=== PATIENT | male | born 1955 | race Caucasian/White ===

== ENCOUNTER 2018-11-12 23:53 | Inpatient (IN) ==
[2018-11-13 00:22] LABS: Microscopic, Urine URINE MICROSCOPIC (MICROSCOPIC)
[2018-11-13 00:24] LABS: Appearance,Urine CLEAR (Clear); Blood, Urine 3+ (Negative); Color,Urine YELLOW (Yellow); Glucose,Urine (UA) Negative (Negative); Ketones,Urine Negative (Negative); Leukocyte Esterase,Urine Negative (Negative); PH,Urine 5.5 (5.0-8.5); Protein,Urine 1+ (Negative); Specific Gravity, Urine 1.025 (1.005-1.030); Urobilinogen,Urine 0.2 EU/dl (0.2)
[2018-11-13 00:28] LABS: ABG Base Excess 7.5 mmol/L (-2.4-2.3); ABG HCO3 35.8 mmhg (22.0-26.0); ABG Oxygen Saturation 83 % (90-100); ABG PO2 56.9 mmhg (80-100); ABG TCO2 38.7 mmhg (23-27)
[2018-11-13 00:29] LABS: Allen's Test Y; Oxygen 4 %
[2018-11-13 00:30] LABS: ABG PCO2 97.1 mmhg (35.0-45.0); ABG PH 7.18 mmol/L (7.35-7.45)
--- NOTE | 2018-11-13 00:37 | Emergency Department Note ---
ED Disposition Clinical Impression: COPD with acute exacerbation, Diabetes mellitus, insulin dependent (IDDM), controlled, Renal insufficiency Altered mental status Qualifiers: Altered mental status type: delirium Qualified Code(s): R41.0 - Disorientation, unspecified Respiratory failure Qualifiers: Chronicity: acute on chronic Respiratory failure complication: hypoxia and hypercapnia Qualified Code(s): J96.21 - Acute and chronic respiratory failure with hypoxia; J96.22 - Acute and chronic respiratory failure with hypercapnia Obesity Qualifiers: Obesity type: due to excess calories Obesity classification: adult class 3 (BMI >= 40) Serious obesity comorbidity presence: with serious comorbidity Body mass index: BMI 45.0-49.9 Qualified Code(s): E66.01 - Morbid (severe) obesity due to excess calories; Z68.42 - Body mass index (BMI) 45.0-49.9, adult Cellulitis Qualifiers: Site of cellulitis: extremity Site of cellulitis of extremity: lower extremity Laterality: unspecified laterality Qualified Code(s): L03.119 - Cellulitis of unspecified part of limb Disposition: Admitted as Observation Condition on Discharge: Fair Instructions: DI for Altered Mental Status Referrals: Bruce August [Primary Care Provider] - - Critical Care Critical Care Time: No Attestation: On 11/12/18, the high probability of a clinically significant, sudden or life threatening deterioration of the following system(s) required my full and direct attention, intervention and personal management. The time I documented below is in addition to time spent performing reported procedures but includes the following listed in this critical care notation. Medical Decision Making - Medical Records Medical records reviewed: Yes: I reviewed the patient's medical records. - Valentin Inquiry Pt receiving controlled substance: No Vital Signs: 11/12/18 23:54 11/13/18 00:48 11/13/18 01:29 Temperature 98.6 F Temperature Source Oral Pulse Rate [Right Brachial] 90 88 91 H Respiratory Rate 18 18 20 Blood Pressure [Right Arm] 149/59 H 141/72 H 144/66 H Blood Pressure Mean [Right Arm] 89 95 92 Blood Pressure Source [Right Arm] Automatic Cuff Automatic Cuff Blood Pressure Position [Right Arm] Sitting Sitting 02 Sat by Pulse Oximetry 90 L 91 L 93 L Oxygen Delivery Method Nasal Cannula BiPAP BiPAP Oxygen Flow Rate (LPM) 11/13/18 02:50 11/13/18 04:56 Temperature Temperature Source Pulse Rate [Right Brachial] 78 93 H Respiratory Rate 25 H 22 Blood Pressure [Right Arm] 141/68 H 163/89 H Blood Pressure Mean [Right Arm] 92 113 Blood Pressure Source [Right Arm] Automatic Cuff Automatic Cuff Blood Pressure Position [Right Arm] Supine Supine 02 Sat by Pulse Oximetry 95 94 L Oxygen Delivery Method BiPAP BiPAP Oxygen Flow Rate (LPM) 2 - Lab Data Lab results reviewed: Yes: I reviewed the patient's lab results. Lab Results 11/13/18 00:01: POC Glucose 110 11/13/18 00:10: WBC 10.8, RBC 4.38 L, Hgb 12.7 L, Hct 40.1 L, MCV 91.6, MCH 28.9, MCHC 31.5 L, RDW 13.9, Plt Count 236, MPV 7.1 L, Neut % (Auto) 79.5, Lymph % (Auto) 11.0, [place] % (Auto) 8.5, Eos % (Auto) 0.9, Baso % (Auto) 0.2, Neut # (Auto) 8.5 H, Lymph # (Auto) 1.2, [place] # (Auto) 0.9, Eos # (Auto) 0.1, Baso # (Auto) 0.0 11/13/18 00:10: Sodium 137, Potassium 4.4, Chloride 97 L, Carbon Dioxide 37 H, Anion Gap 7.4, BUN 53 H, Creatinine 1.62 H, Estimated Creat Clear 49, Estimated GFR 43 L, Est GFR ( Amer) 52 L, Glucose 59 L, Calcium 8.9, Total Bilirubin 0.4, AST 26, ALT 26, Alkaline Phosphatase 159 H, Total Protein 8.0, Albumin 2.9 L, Globulin 5.1 H, Albumin/Globulin Ratio 0.6 L 11/13/18 00:10: Lactate 1.7 11/13/18 00:12: Urine Color Yellow, Urine Appearance Clear, Urine pH 5.5, Ur Specific [place] 1.025, Urine Protein 1+, Urine Glucose (UA) Negative, Urine Ketones Negative, Urine Blood 3+, Urine Nitrate Negative, Urine Bilirubin Negative, Urine Urobilinogen 0.2, Ur Leukocyte Esterase Negative, Urine RBC Occasional, Urine WBC 3-5, Ur Squamous Epith Cells Occasional, Urine Bacteria Trace 11/13/18 00:12: Urine Opiates Screen Positive H, Urine Methadone Screen Negative, Ur Barbituates Screen Negative, Ur Phencyclidine Scrn Negative, Ur Amphetamines Screen Negative, U Benzodiazepines Scrn Positive H, Urine Cocaine Screen Negative, U Marijuana (THC) Screen Negative 11/13/18 00:12: Troponin I < 0.02 11/13/18 00:27: Specimen Source R/r, O2 % 4, ABG pH 7.18 L*, ABG pCO2 97.1 H, ABG pO2 56.9 L, ABG HCO3 35.8 H, ABG Total CO2 38.7 H, ABG O2 Saturation 83 L*, ABG Base Excess 7.5 H, Jack Test Y 11/13/18 02:40: Specimen Source R/r, O2 % 30, ABG pH 7.25 L, ABG pCO2 87.2 H, ABG pO2 67.1 L, ABG HCO3 37.0 H, ABG Total CO2 39.7 H, ABG O2 Saturation 91, ABG Base Excess 9.7 H, Jack Test Y, Vent Rate 25 Result diagrams: 11/13/18 00:10 11/13/18 00:10 Orders (Tests/Meds): ED MEDICATIONS Generic Name Dose Route Start Last Admin Trade Name Freq PRN Reason Stop Dose Admin Sodium Chloride 1,000 mls @ 999 mls/hr 11/13/18 02:30 11/13/18 02:45 Sod Chlor 0.9% 1000ml Bag IV 11/13/18 03:30 999 mls/hr .Q1H1M DEANA Administration Ceftriaxone Sodium 1 gm/ 50 mls @ 100 mls/hr 11/13/18 04:45 11/13/18 04:58 Sodium Chloride IV 11/27/18 04:44 100 mls/hr Q24H DEANA Administration Protocol Sodium Chloride 10 ml 11/13/18 00:08 Saline Flush 10ml Syringe IV 12/13/18 00:07 NEEDED PRN Maintain IV Site ORDERS Category Date Time Status Blood Culture Stat Micro 11/13/18 00:10 Received ABG [Arterial Blood Gas] Stat RT 11/13/18 01:53 Ordered ABG [Arterial Blood Gas] Stat RT 11/13/18 04:57 Ordered ECG Request by /Prashanth Stat Y 11/13/18 00:07 Ordered - Radiology Data #1 Image(s): Chest Image Reviewed: Yes I reviewed the patient's radiology image Preliminary Findings: Abnormal (cm) - ECG Data Tracing #1 Normal Sinus Rhythm: Yes Ischemic changes: non-specific ST-T wave changes Conduction abnormalities present: RBBB - Physician Consults Physician Consulted: peace Reason -: Admission Comment/Response: family reports and pt prefer to remain at [facility] and have seen dr august about 2 months ago Altered Mental Status HPI - General Chief Complaint: Altered Mental Status Stated Complaint: AMS Time Seen by Provider: 11/13/18 00:00 Mode of Arrival: EMS Source of Information: Patient, Relative, EMS, Medical Record Limitations: Altered Mental Status Description of Symptoms (Recalled from ER Triage Doc. by RN): Pt presents to the ED with AMS, hypoglycemic, and weakness. O2 @3.5 L NC. No IV access. Was give oral glucose per EMS after getting a FSBS of 67. FSBS came up to 90 after that. - History of Present Illness HPI narrative: pt with over the last few days has change in mental status with glu of about 70 at home and he uses 3l and has hx of copd - pt [facility] admit [facility] ago with back pain and found to have aaa - has op appt for eval- he has changes to lower ext which are worse - no fever and no tob use - no fall - no chest or abd pain MD complaint: altered mental status Onset (ago): day(s) Timing confirmed by: family member Associated symptoms: shortness of breath - Related Data Home Medications Medication Instructions Recorded Confirmed Baclofen [Lioresal 10mg tablet] 10 mg PO DAILY 11/13/18 11/13/18 Bictegrav/Emtricit/Tenofov Ala 1 each PO DAILY 11/13/18 11/13/18 [Biktarvy 50-200-25 mg Tablet] Duloxetine HCl 60 mg PO DAILY 11/13/18 11/13/18 Ergocalciferol (Vitamin D2) 400 unit PO DAILY 11/13/18 11/13/18 [Vitamin D] Finasteride [Proscar 5mg Tablet] 5 mg PO DAILY 11/13/18 11/13/18 Furosemide [Furosemide 40MG tAB] 40 mg PO DAILY 11/13/18 11/13/18 Insulin Lispro [Humalog] 100 unit SQ DAILY 11/13/18 11/13/18 Lidocaine 1 each TP NEEDED PRN 11/13/18 11/13/18 Losartan Potassium 100 mg PO DAILY 11/13/18 11/13/18 Metformin HCl [Metformin HCl ER] 500 mg PO DAILY 11/13/18 11/13/18 Metoprolol Tartrate 100 mg PO DAILY 11/13/18 11/13/18 Naloxone HCl [Narcan] 4 mg NS NEEDED PRN 11/13/18 11/13/18 Tamsulosin HCl [Flomax 0.4mg 0.4 mg PO HS 11/13/18 11/13/18 capsule] Allergies Allergy/AdvReac Type Severity Reaction Status Date / Time SANDRA Inhibitor Allergy Unknown Uncoded 08/21/17 14:32 CLASS: 24:06 - ANTILIPEMIC Allergy Unknown Uncoded 08/21/17 14:32 AGENTS Clofibrate Allergy Unknown Uncoded 08/21/17 14:32 Enalapril Allergy Unknown Uncoded 08/21/17 14:32 Erythromycin Allergy Unknown Uncoded 08/21/17 14:32 From Pravastatin Sodium Allergy Unknown Uncoded 08/21/17 14:32 Gemfibrozil Allergy Unknown Uncoded 08/21/17 14:32 Hepatitis A Vaccine, Allergy Unknown Uncoded 08/21/17 14:32 Inactivated Hmg-Coa Reductase Inhibitor Allergy Unknown Uncoded 08/21/17 14:32 Hydralazine Allergy Unknown Uncoded 08/21/17 14:32 Macrolide/Antibacterial Allergy Unknown Uncoded 08/21/17 14:32 [facility] History - Hepatitis A Screen Drug use history?: No High risk sexual behaviors?: No History of sexually transmitted infection?: No Currently employed?: No Childcare worker?: No Do you have indoor plumbing?: Yes Do you have electricity?: Yes Attestation statement:: This patient has been screened for Hepatitis A risk factors. I have reviewed the patient's past medical history: Yes - Social History Alcohol Intake: never Occupational Status: disabled Housing: house - Psychiatric History Expresses thoughts of harming self/others: None Suicide Plan Description: No Plan ROS Obtained: Yes All systems reviewed & no additional complaints - Constitutional Constitutional: Denies fever(s), Reports weakness - Eyes Eyes: Denies change in vision - ENT Ears, Nose, Mouth, and Throat: Denies sore throat - Cardiovascular Cardiovascular: Denies chest pain, Reports leg edema - Respiratory Respiratory: No cough, Yes dyspnea - Gastrointestinal Gastrointestingal: Denies: abdominal pain, vomiting - Genitourinary Male Genitourinary: Denies hematuria - Musculoskeletal Musculoskeletal: Denies joint pain - Integumentary/Breasts Skin/Breast: Reports other (acute on chronic lower ext changes ) - Neurologic Neurologic: Reports confusion, Denies seizure-like activity Physical Exam - General General appearance: obese, other (confused) - Head Head exam: normocephalic - Eye Eye exam: Present: PERRL, EOMI. Absent: scleral icterus - ENT ENT exam: Present: mucous membranes dry - Neck Neck exam: Present: trachea midline - Respiratory Respiratory exam: Present: prolonged expiratory phase, other (dec bs bilat ). Absent: respiratory distress - Cardiovascular Cardiovascular exam: Present: regular rate, systolic murmur, +S4, other (distant ht sds ) - Abdominal Exam Abdominal exam: Present: soft. Absent: pulsatile mass - Extremities Exam Extremities exam: Present: other (swelling with acute and chronic chhanges with cellulitis ) - Neurological Exam Neurological exam: Present: CN II-XII intact, other (confused at times but aware of being at hospital ). Absent: motor sensory deficit - Psychiatric Psychiatric exam: Present: agitated - Skin Skin exam: Present: rash (changes lower ext )
[2018-11-13 00:38] LABS: Bilirubin,Urine Negative (Negative)
[2018-11-13 00:41] LABS: Basophils % 0.2 % (0.1-2.0); Eosinophils # 0.1 K/mm3 (0.0-0.4); Eosinophils % 0.9 % (0.1-12.0); Hematocrit 40.1 % (42.0-52.0); Hemoglobin 12.7 g/dL (14.1-18.0); Lymphocytes # 1.2 K/mm3 (0.7-4.5); Mean Corpuscular HGB Conc 31.5 g/dL (31.8-35.4); Mean Corpuscular Hemoglobin 28.9 pg (27.0-31.2); Mean Corpuscular Volume 91.6 fl (80-94); Mean Platelet Volume 7.1 fl (7.4-10.4); Monocytes # 0.9 K/mm3 (0.1-1.0); Monocytes % 8.5 % (1.7-9.3); Neutrophils # 8.5 K/mm3 (1.8-7.8); Neutrophils % 79.5 % (37.0-80.0); Platelet Count 236 K/mm3 (142-424); Red Blood Count 4.38 M/mm3 (4.60-6.20); Red Cell Distribution Width 13.9 % (11.5-17.5); White Blood Count 10.8 K/mm3 (4.8-10.8)
[2018-11-13 00:42] LABS: Amphetamine/Metha Screen,Urine Negative ng/mL (<1000); Barbiturates Screen,Urine Negative ng/mL (<200); Benzodiazepines Screen,Urine Positive ng/mL (<200); Cannabinoid Screen,Urine Negative ng/mL (<50); Cocaine Screen,Urine Negative ng/mL (<300); Methadone Screen,Urine Negative ng/mL (<300); Opiate Screen,Urine Positive ng/mL (<300); Phencyclidine Screen,Urine Negative ng/mL (<25)
[2018-11-13 00:44] LABS: Albumin Level 2.9 gm/dL (3.4-5.0); Albumin/Globulin Ratio 0.6 (1.1-1.8); Anion Gap 7.4 mEq/L (5-15); Bilirubin,Total 0.4 mg/dL (0.2-1.0); Calcium 8.9 mg/dL (8.5-10.1); Globulin 5.1 gm/dl (1.3-3.2); Potassium 4.4 mmoL/L (3.5-5.1)
[2018-11-13 00:49] LABS: Bacteria,Urine Trace /lpf; RBC,Urine Occasional #/hpf (0-3); Squamous Epithelial Cell,Urine Occasional #/hpf (0-5)
[2018-11-13 02:41] LABS: ABG Base Excess 9.7 mmol/L (-2.4-2.3); ABG Oxygen Saturation 91 % (90-100); ABG PH 7.25 mmol/L (7.35-7.45); ABG PO2 67.1 mmhg (80-100); ABG TCO2 39.7 mmhg (23-27)
[2018-11-13 02:42] LABS: Allen's Test Y; Oxygen 30 %
[2018-11-13 02:43] LABS: ABG PCO2 87.2 mmhg (35.0-45.0)
--- NOTE | 2018-11-13 07:25 | Pharmacy Consult Notes ---
[facility] Pharmacy VTE Monitoring - Patient Demographics Admission date: 11/12/18 Report Date: 11/13/18 Time: 07:24 Allergies/Adverse Reactions: Patient Allergies SANDRA Inhibitor Allergy (Unknown, Uncoded 08/21/17 14:32) CLASS: 24:06 - ANTILIPEMIC AGENTS Allergy (Unknown, Uncoded 08/21/17 14:32) Clofibrate Allergy (Unknown, Uncoded 08/21/17 14:32) Enalapril Allergy (Unknown, Uncoded 08/21/17 14:32) Erythromycin Allergy (Unknown, Uncoded 08/21/17 14:32) From Pravastatin Sodium Allergy (Unknown, Uncoded 08/21/17 14:32) Gemfibrozil Allergy (Unknown, Uncoded 08/21/17 14:32) Hepatitis A Vaccine, Inactivated Allergy (Unknown, Uncoded 08/21/17 14:32) Hmg-Coa Reductase Inhibitor Allergy (Unknown, Uncoded 08/21/17 14:32) Hydralazine Allergy (Unknown, Uncoded 08/21/17 14:32) Macrolide/Antibacterial Allergy (Unknown, Uncoded 08/21/17 14:32) Height: 1.8 m Weight: 154.675 kg Patient Problems: Current Active Problems Altered mental status (Acute) COPD with acute exacerbation (Acute) Respiratory failure (Acute) Obesity (Acute) Cellulitis (Acute) Diabetes mellitus, insulin dependent (IDDM), controlled (Acute) Renal insufficiency (Acute) - VTE Risk Labs: VTE Related Lab Results Hgb 12.7 g/dL (14.1-18.0) L 11/13/18 00:10 Hct 40.1 % (42.0-52.0) L 11/13/18 00:10 Plt Count 236 K/mm3 (142-424) 11/13/18 00:10 BUN 53 mg/dL (7-18) H 11/13/18 00:10 Creatinine 1.62 mg/dL (0.70-1.30) H 11/13/18 00:10 Estimated Creat Clear 49 mL/min (50-200) 11/13/18 00:10 Was VTE Risk Assessment Performed: Yes VTE Score: 8 VTE Risk Level: Moderate Risk Clinical Trial Participant: No - Prophylaxis VTE Prophylaxis Ordered?: Yes Types of VTE Prophylaxis: TEDS Knee High
--- NOTE | 2018-11-13 08:28 | History & Physical Report ---
*Admission Date: 11/12/18 *Chief complaint: Mental status changes/dyspnea. 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 Faith here in town, who suffers from multiple medical problems, including morbid obesity, uncontrolled diabetes and chronic respiratory insufficiency with pickwickian syndrome, who is on chronic antiviral medicines ostensibly as a consequence of a Hodgkin's lymphoma many years ago, who presented to the emergency department yesterday evening with a 3-day history of increasing mental status changes, confusion, nausea with vomiting and increasing leg swelling. Apparently has had some falls at home. His and daughter had tried to convince him to go to the [facility] emergency department but he declined until later in the evening yesterday when he requested an ambulance to bring him to the [facility]. In the ER here he was found to be acidotic, required BiPAP for respiratory stabilization, had significant cellulitis of both lower extremities and was found to have mild acute kidney injury superimposed on chronic kidney disease. There is also a history from the family of "new fluid around his heart and an aortic abdominal aneurysm" recently diagnosed at the [facility] with upcoming appointments. Significant record deficit given his recent care at the [facility]. Family members deny fevers at home, and do report hypoglycemia the afternoon of admission. [facility] History I have reviewed the patient's past medical history: Yes Medical History: Reports:: Cancer (Melanoma), Diabetes Mellitus Type 2, Hyperlipidemia, Hypertension, MRSA, Myocardial Infarction *Have you ever received a pneumonia vaccine?: Yes *Have you received a flu vaccine this season?: Yes Other Surgeries: Yes: Colonoscopy, Hernia Repair, Sinus Surgery, Other (Left Arm) Amputation: No - *Social History Educational Level: Completed College Alcohol Intake: never *Occupational Status:: disabled Housing: house Household Members: spouse *Travel in the last 8 weeks: None - Psychiatric History Expresses thoughts of harming self/others: None Suicide Plan Description: No Plan Family Hx:: Cancer, Hyperlipidemia, Hypertension Review of Systems - Review of Systems Review of systems:: unable to obtain Patient obtunded on CPAP. Does respond minimally to tactile stimulation but cannot give a coherent review of systems. - *Neurologic Reports confusion, Reports weakness, Denies seizure-like activity Meds Home Medications Medication Instructions Recorded Confirmed Type Baclofen [Lioresal 10mg tablet] 10 mg PO DAILY 11/13/18 11/13/18 History Bictegrav/Emtricit/Tenofov Ala 1 each PO DAILY 11/13/18 11/13/18 History [Biktarvy 50-200-25 mg Tablet] Duloxetine HCl 60 mg PO DAILY 11/13/18 11/13/18 History Ergocalciferol (Vitamin D2) 400 unit PO DAILY 11/13/18 11/13/18 History [Vitamin D] Finasteride [Proscar 5mg Tablet] 5 mg PO DAILY 11/13/18 11/13/18 History Furosemide [Furosemide 40MG tAB] 40 mg PO DAILY 11/13/18 11/13/18 History Insulin Lispro [Humalog] 100 unit SQ DAILY 11/13/18 11/13/18 History Lidocaine 1 each TP NEEDED PRN 11/13/18 11/13/18 History Losartan Potassium 100 mg PO DAILY 11/13/18 11/13/18 History Metformin HCl [Metformin HCl ER] 500 mg PO DAILY 11/13/18 11/13/18 History Metoprolol Tartrate 100 mg PO DAILY 11/13/18 11/13/18 History Naloxone HCl [Narcan] 4 mg NS NEEDED PRN 11/13/18 11/13/18 History Tamsulosin HCl [Flomax 0.4mg 0.4 mg PO HS 11/13/18 11/13/18 History capsule] Allergies Allergy/AdvReac Type Severity Reaction Status Date / Time SANDRA Inhibitors Allergy Unknown Unknown Verified 11/13/18 07:47 allergy reaction clofibrate Allergy Unknown Unknown Verified 11/13/18 07:47 allergy reaction enalapril Allergy Unknown Unknown Verified 11/13/18 07:47 allergy reaction erythromycin base Allergy Unknown Unknown Verified 11/13/18 07:47 allergy reaction gemfibrozil Allergy Unknown Unknown Verified 11/13/18 07:47 allergy reaction hepatitis A virus vaccine Allergy Unknown Unknown Verified 11/13/18 07:47 allergy reaction hydralazine Allergy Unknown Unknown Verified 11/13/18 07:47 allergy reaction Macrolide Antibiotics Allergy Unknown Unknown Verified 11/13/18 07:47 allergy reaction pravastatin [From Pravachol] Allergy Unknown Unknown Verified 11/13/18 07:47 allergy reaction [id number]-[id number]-[id number] Reductase Allergy Unknown Unknown Verified 11/13/18 07:47 Inhibitor allergy reaction Exam Vital signs and Labs for Last 24 Hours: Temp Pulse Resp BP Pulse Ox 98.8 F 84 22 137/62 91 L 11/13/18 08:00 11/13/18 08:00 11/13/18 08:00 11/13/18 08:00 11/13/18 08:00 Laboratory Results - last 24 hr 11/13/18 00:01: POC Glucose 110 11/13/18 00:10: WBC 10.8, RBC 4.38 L, Hgb 12.7 L, Hct 40.1 L, MCV 91.6, MCH 28.9, MCHC 31.5 L, RDW 13.9, Plt Count 236, MPV 7.1 L, Neut % (Auto) 79.5, Lymph % (Auto) 11.0, [place] % (Auto) 8.5, Eos % (Auto) 0.9, Baso % (Auto) 0.2, Neut # (Auto) 8.5 H, Lymph # (Auto) 1.2, [place] # (Auto) 0.9, Eos # (Auto) 0.1, Baso # (Auto) 0.0 11/13/18 00:10: Sodium 137, Potassium 4.4, Chloride 97 L, Carbon Dioxide 37 H, Anion Gap 7.4, BUN 53 H, Creatinine 1.62 H, Estimated Creat Clear 49, Estimated GFR 43 L, Est GFR ( Amer) 52 L, Glucose 59 L, Calcium 8.9, Total Bilirubin 0.4, AST 26, ALT 26, Alkaline Phosphatase 159 H, Total Protein 8.0, Albumin 2.9 L, Globulin 5.1 H, Albumin/Globulin Ratio 0.6 L 11/13/18 00:10: Lactate 1.7 11/13/18 00:12: Urine Color Yellow, Urine Appearance Clear, Urine pH 5.5, Ur Specific [place] 1.025, Urine Protein 1+, Urine Glucose (UA) Negative, Urine Ketones Negative, Urine Blood 3+, Urine Nitrate Negative, Urine Bilirubin Negative, Urine Urobilinogen 0.2, Ur Leukocyte Esterase Negative, Urine RBC Occasional, Urine WBC 3-5, Ur Squamous Epith Cells Occasional, Urine Bacteria Trace 11/13/18 00:12: Urine Opiates Screen Positive H, Urine Methadone Screen Negative, Ur Barbituates Screen Negative, Ur Phencyclidine Scrn Negative, Ur Amphetamines Screen Negative, U Benzodiazepines Scrn Positive H, Urine Cocaine Screen Negative, U Marijuana (THC) Screen Negative 11/13/18 00:12: Troponin I < 0.02 11/13/18 00:27: Specimen Source R/r, O2 % 4, ABG pH 7.18 L*, ABG pCO2 97.1 H, ABG pO2 56.9 L, ABG HCO3 35.8 H, ABG Total CO2 38.7 H, ABG O2 Saturation 83 L*, ABG Base Excess 7.5 H, Jack Test Y 11/13/18 02:40: Specimen Source R/r, O2 % 30, ABG pH 7.25 L, ABG pCO2 87.2 H, ABG pO2 67.1 L, ABG HCO3 37.0 H, ABG Total CO2 39.7 H, ABG O2 Saturation 91, ABG Base Excess 9.7 H, Jack Test Y, Vent Rate 25 11/13/18 06:29: POC Glucose 173 H I & O for Last 24 hours: Intake & Output 11/10/18 11/11/18 11/12/18 11/13/18 11:59 11:59 11:59 11:59 Intake Total 0 / 0 Output Total 625 / 625 Balance -625 / -625 Weight 341 lb Narrative: Patient is obtunded, on BiPAP with O2 saturations 92%. Pulse rate sinus rhythm in the 80s. Blood pressure is acceptable. Anterior lung conn have diminished air movement but no significant crackles. Heart rate regular but morbid obesity compromises the accuracy of his exam. No JVD, but again his morbid obesity limits accuracy of exam, otherwise ENT exam clear. No jaundice. No scleral icterus. Abdomen is soft, obese. No organomegaly. Extremities show significant brawny skin changes with cellulitis from the sloan to 2 cm above the ankle bilaterally in a circumferential pattern. There is yellow drainage consistent with cellulitis-- interestingly redness is not appreciated. Pulses are significantly diminished in the feet. However they are warm and well-perfused. Upper extremities have good perfusion and pulses. Neurologic exam shows no focal deficits on inspection but patient cannot respond to commands. When he wakes up he does move his extremities symmetrically. Assessment and Plan (1) Morbid obesity with BMI of 45.0-49.9, adult Current visit: Yes Status: Acute Category: Medical Code(s): E66.01 - Morbid (severe) obesity due to excess calories; Z68.42 - Body mass index (BMI) 45.0-49.9, adult Complicates all aspects of his care (2) Aortic aneurysm, abdominal Current visit: Yes Status: Acute Category: Medical Code(s): I71.4 - Abdominal aortic aneurysm, without rupture Given history from family and record deficit we will repeat aortic screening today. (3) Pericardial effusion Current visit: Yes Status: Acute Category: Medical Code(s): I31.3 - Pericardial effusion (noninflammatory) Echocardiogram today given history of respiratory failure and history of pericardial effusion from family (4) Acidosis Current visit: Yes Status: Acute Category: Medical Code(s): E87.2 - Acidosis Most likely from respiratory sources however his antiviral medication is listed as causing acidosis as a secondary effect. Hold this medication. Continue IV fluid infusion and respiratory support. (5) Altered mental status Current visit: Yes Status: Acute Qualifiers: Altered mental status type: delirium Qualified Code(s): R41.0 - Disorientation, unspecified Category: Medical Code(s): R41.82 - Altered mental status, unspecified Multifactorial etiology. Continue fluid support, most likely from hypercapnia. (6) Cellulitis Current visit: Yes Status: Acute Qualifiers: Site of cellulitis: extremity Site of cellulitis of extremity: lower extremity Laterality: unspecified laterality Qualified Code(s): L03.119 - Cellulitis of unspecified part of limb Category: Medical Code(s): L03.90 - Cellulitis, unspecified Aggressive IV antibiotic therapy. Significant immunosuppression risky given his poorly controlled diabetes. (7) Renal insufficiency Current visit: Yes Status: Acute Category: Medical Code(s): N28.9 - Disorder of kidney and ureter, unspecified Daughter states that the most recent creatinine at the [facility] had "returned to his baseline" but she is not aware of a number. Most likely he has mild AK I on chronic kidney disease. (8) Respiratory failure Current visit: Yes Status: Acute Qualifiers: Chronicity: acute on chronic Respiratory failure complication: hypoxia and hypercapnia Qualified Code(s): J96.21 - Acute and chronic respiratory failure with hypoxia; J96.22 - Acute and chronic respiratory failure with hypercapnia Category: Medical Code(s): J96.90 - Respiratory failure, unspecified, unspecified whether with hypoxia or hypercapnia (9) Diabetes type 2, uncontrolled Current visit: Yes Status: Acute Category: Medical Code(s): E11.65 - Type 2 diabetes mellitus with hyperglycemia Sliding scale monitoring in the hospital. - Assessment and plan all Dx Assessment and Plan for all problems:: Continue current specialty care unit care-please note 2 hours critical care time.
[2018-11-13 09:07] LABS: Anion Gap 8.4 mEq/L (5-15); Calcium 8.6 mg/dL (8.5-10.1); Potassium 5.4 mmoL/L (3.5-5.1)
[2018-11-13 09:22] LABS: Basophils % 0.2 % (0.1-2.0); Eosinophils % 0.5 % (0.1-12.0); Hematocrit 38.9 % (42.0-52.0); Hemoglobin 12.1 g/dL (14.1-18.0); Lymphocytes # 0.6 K/mm3 (0.7-4.5); Lymphocytes % 7.2 % (10-50); Mean Corpuscular HGB Conc 31.1 g/dL (31.8-35.4); Mean Corpuscular Hemoglobin 29.1 pg (27.0-31.2); Mean Corpuscular Volume 93.6 fl (80-94); Mean Platelet Volume 6.9 fl (7.4-10.4); Monocytes # 0.3 K/mm3 (0.1-1.0); Monocytes % 3.7 % (1.7-9.3); Neutrophils # 7.2 K/mm3 (1.8-7.8); Neutrophils % 88.4 % (37.0-80.0); Platelet Count 191 K/mm3 (142-424); Red Blood Count 4.16 M/mm3 (4.60-6.20); Red Cell Distribution Width 13.8 % (11.5-17.5); White Blood Count 8.1 K/mm3 (4.8-10.8)
[2018-11-13 10:53] LABS: Lymphocytes % 9 % (10-50); Monocytes % 1 % (2-9); Neutrophils % 90 % (42-76); Total Cells Counted 100
[2018-11-13 10:57] LABS: RBC Morphology Normal
[2018-11-14 06:49] LABS: Basophils % 0.1 % (0.1-2.0); Hemoglobin 11.4 g/dL (14.1-18.0); Lymphocytes # 0.8 K/mm3 (0.7-4.5); Mean Corpuscular HGB Conc 30.1 g/dL (31.8-35.4); Mean Corpuscular Hemoglobin 28.8 pg (27.0-31.2); Mean Corpuscular Volume 95.6 fl (80-94); Mean Platelet Volume 7.8 fl (7.4-10.4); Monocytes # 0.7 K/mm3 (0.1-1.0); Monocytes % 6.8 % (1.7-9.3); Neutrophils # 8.4 K/mm3 (1.8-7.8); Neutrophils % 85.1 % (37.0-80.0); Platelet Count 182 K/mm3 (142-424); Red Blood Count 3.97 M/mm3 (4.60-6.20); Red Cell Distribution Width 13.7 % (11.5-17.5); White Blood Count 9.9 K/mm3 (4.8-10.8)
[2018-11-14 07:25] LABS: Albumin Level 2.5 gm/dL (3.4-5.0); Albumin/Globulin Ratio 0.5 (1.1-1.8); Anion Gap 10.4 mEq/L (5-15); Bilirubin,Total 0.4 mg/dL (0.2-1.0); Calcium 8.3 mg/dL (8.5-10.1); Globulin 4.9 gm/dl (1.3-3.2); Potassium 5.4 mmoL/L (3.5-5.1); Total Protein,Serum 7.4 gm/dL (6.4-8.2)
--- NOTE | 2018-11-14 09:16 | Progress Note ---
<Sarita Long - Last Filed: 11/14/18 09:38> Internal Medicine - PN: Subj *Date: 11/14/18 *Time: 08:15 Interval history: Patient is sitting up in chair sleeping, awakens easily to voice. States he feels "much better." Shortness of breath has improved. He has been ambulating to the BR. Nursing staff report he drank multiple regular sodas yesterday, FSBS 300-500 despite high sliding scale coverage. He refused CPAP last night. RT unable to obtain blood gas this am x 5 attempts. Exam Vital signs and Labs for Last 24 Hours: Temp Pulse Resp BP Pulse Ox 98.0 F 84 18 123/57 L 96 11/14/18 08:00 11/14/18 08:00 11/14/18 08:00 11/14/18 08:00 11/14/18 08:00 Laboratory Results - last 24 hr 11/13/18 08:32: WBC 8.1, RBC 4.16 L, Hgb 12.1 L, Hct 38.9 L, MCV 93.6, MCH 29.1, MCHC 31.1 L, RDW 13.8, Plt Count 191, MPV 6.9 L, Neut % (Auto) 88.4 H, Lymph % (Auto) 7.2 L, [place] % (Auto) 3.7, Eos % (Auto) 0.5, Baso % (Auto) 0.2, Neut # (Auto) 7.2, Lymph # (Auto) 0.6 L, [place] # (Auto) 0.3, Eos # (Auto) 0.0, Baso # (Auto) 0.0, Total Counted 100, Neutrophils % (Manual) 90 H, Lymphocytes % (Manual) 9 L, Monocytes % (Manual) 1 L, Platelet Estimate Normal, RBC Morphology Normal 11/13/18 09:19: Troponin I < 0.02 11/13/18 09:19: Lactate 0.5 11/13/18 09:19: Ammonia 14 L 11/13/18 09:19: TSH 1.36 11/13/18 12:06: POC Glucose 344 H* 11/13/18 17:04: POC Glucose 594 H* 11/13/18 20:00: POC Glucose 536 H* 11/13/18 20:14: Random Glucose 569 H* 11/14/18 05:28: WBC 9.9, RBC 3.97 L, Hgb 11.4 L, Hct 38.0 L, MCV 95.6 H, MCH 28.8, MCHC 30.1 L, RDW 13.7, Plt Count 182, MPV 7.8, Neut % (Auto) 85.1 H, Lymph % (Auto) 8.0 L, [place] % (Auto) 6.8, Eos % (Auto) 0.0 L, Baso % (Auto) 0.1, Neut # (Auto) 8.4 H, Lymph # (Auto) 0.8, [place] # (Auto) 0.7, Eos # (Auto) 0.0, Baso # (Auto) 0.0 11/14/18 05:28: Sodium 136, Potassium 5.4 H, Chloride 97 L, Carbon Dioxide 34 H, Anion Gap 10.4, BUN 57 H, Creatinine 1.62 H D, Estimated Creat Clear 49, Estimated GFR 43 L, Est GFR ( Amer) 52 L D, Glucose 413 H* D, Calcium 8.3 L, Total Bilirubin 0.4, AST 25, ALT 33 D, Alkaline Phosphatase 170 H, Total Protein 7.4, Albumin 2.5 L D, Globulin 4.9 H, Albumin/Globulin Ratio 0.5 L 11/14/18 05:37: POC Glucose 368 H* I & O for Last 24 hours: Intake & Output 11/11/18 11/12/18 11/13/18 11/14/18 11:59 11:59 11:59 11:59 Intake Total 0 / 0 3203 / 3203 Output Total 625 / 625 1250 / 1250 Balance -625 / -625 1952 / 1952 Weight 341 lb Narrative: Alert and oriented x3. Rate and rhythm regular, + murmur. Lung sounds clear with exception of fine crackles LLL. Abdomen protuberant, but soft. LE with 2+ edema, chronic discoloration and erythema bilateral lower legs with multiple superficial wounds scattered, scant purulent drainage noted, unable to palpate pedal pulses bilaterally Assessment and Plan (1) Morbid obesity with BMI of 45.0-49.9, adult Current visit: Yes Status: Acute Category: Medical Code(s): E66.01 - Morbid (severe) obesity due to excess calories; Z68.42 - Body mass index (BMI) 45.0-49.9, adult (2) Aortic aneurysm, abdominal Current visit: Yes Status: Acute Category: Medical Code(s): I71.4 - Abdominal aortic aneurysm, without rupture (3) Pericardial effusion Current visit: Yes Status: Acute Category: Medical Code(s): I31.3 - Pericardial effusion (noninflammatory) (4) Acidosis Current visit: Yes Status: Acute Category: Medical Code(s): E87.2 - Acidosis (5) Altered mental status Current visit: Yes Status: Acute Qualifiers: Altered mental status type: delirium Qualified Code(s): R41.0 - Disorientation, unspecified Category: Medical Code(s): R41.82 - Altered mental status, unspecified (6) Cellulitis Current visit: Yes Status: Acute Qualifiers: Site of cellulitis: extremity Site of cellulitis of extremity: lower extremity Laterality: unspecified laterality Qualified Code(s): L03.119 - Cellulitis of unspecified part of limb Category: Medical Code(s): L03.90 - Cellulitis, unspecified (7) Renal insufficiency Current visit: Yes Status: Acute Category: Medical Code(s): N28.9 - Disorder of kidney and ureter, unspecified (8) Respiratory failure Current visit: Yes Status: Acute Qualifiers: Chronicity: acute on chronic Respiratory failure complication: hypoxia and hypercapnia Qualified Code(s): J96.21 - Acute and chronic respiratory failure with hypoxia; J96.22 - Acute and chronic respiratory failure with hypercapnia Category: Medical Code(s): J96.90 - Respiratory failure, unspecified, unspecified whether with hypoxia or hypercapnia (9) Diabetes type 2, uncontrolled Current visit: Yes Status: Acute Category: Medical Code(s): E11.65 - Type 2 diabetes mellitus with hyperglycemia - Assessment and plan all Dx Assessment and Plan for all problems:: Improving. Consult PT for wound care BLE. Continue clinda infusions. Add Lantus 30 units QHS. <Sabas Johnston - Last Filed: 11/14/18 09:51> Exam Vital signs and Labs for Last 24 Hours: Temp Pulse Resp BP Pulse Ox 98.0 F 84 18 123/57 L 96 11/14/18 08:00 11/14/18 08:00 11/14/18 08:00 11/14/18 08:00 11/14/18 08:00 Laboratory Results - last 24 hr 11/13/18 08:32: Total Counted 100, Neutrophils % (Manual) 90 H, Lymphocytes % (Manual) 9 L, Monocytes % (Manual) 1 L, Platelet Estimate Normal, RBC Morphology Normal 11/13/18 09:19: Troponin I < 0.02 11/13/18 09:19: Lactate 0.5 11/13/18 09:19: TSH 1.36 11/13/18 12:06: POC Glucose 344 H* 11/13/18 17:04: POC Glucose 594 H* 11/13/18 20:00: POC Glucose 536 H* 11/13/18 20:14: Random Glucose 569 H* 11/14/18 05:28: WBC 9.9, RBC 3.97 L, Hgb 11.4 L, Hct 38.0 L, MCV 95.6 H, MCH 28.8, MCHC 30.1 L, RDW 13.7, Plt Count 182, MPV 7.8, Neut % (Auto) 85.1 H, Lymph % (Auto) 8.0 L, [place] % (Auto) 6.8, Eos % (Auto) 0.0 L, Baso % (Auto) 0.1, Neut # (Auto) 8.4 H, Lymph # (Auto) 0.8, [place] # (Auto) 0.7, Eos # (Auto) 0.0, Baso # (Auto) 0.0 11/14/18 05:28: Sodium 136, Potassium 5.4 H, Chloride 97 L, Carbon Dioxide 34 H, Anion Gap 10.4, BUN 57 H, Creatinine 1.62 H D, Estimated Creat Clear 49, Estimated GFR 43 L, Est GFR ( Amer) 52 L D, Glucose 413 H* D, Calcium 8.3 L, Total Bilirubin 0.4, AST 25, ALT 33 D, Alkaline Phosphatase 170 H, Total Protein 7.4, Albumin 2.5 L D, Globulin 4.9 H, Albumin/Globulin Ratio 0.5 L 11/14/18 05:37: POC Glucose 368 H* I & O for Last 24 hours: Intake & Output 11/11/18 11/12/18 11/13/18 11/14/18 11:59 11:59 11:59 11:59 Intake Total 0 / 0 3203 / 3203 Output Total 625 / 625 1250 / 1250 Balance -625 / -625 1952 Weight 341 lb Assessment and Plan (1) Morbid obesity with BMI of 45.0-49.9, adult Current visit: Yes Status: Acute Category: Medical Code(s): E66.01 - Morbid (severe) obesity due to excess calories; Z68.42 - Body mass index (BMI) 45.0-49.9, adult (2) Aortic aneurysm, abdominal Current visit: Yes Status: Acute Category: Medical Code(s): I71.4 - Abdominal aortic aneurysm, without rupture (3) Pericardial effusion Current visit: Yes Status: Acute Category: Medical Code(s): I31.3 - Pericardial effusion (noninflammatory) (4) Acidosis Current visit: Yes Status: Acute Category: Medical Code(s): E87.2 - Acidosis (5) Altered mental status Current visit: Yes Status: Acute Qualifiers: Altered mental status type: delirium Qualified Code(s): R41.0 - Disorientation, unspecified Category: Medical Code(s): R41.82 - Altered mental status, unspecified (6) Cellulitis Current visit: Yes Status: Acute Qualifiers: Site of cellulitis: extremity Site of cellulitis of extremity: lower extremity Laterality: unspecified laterality Qualified Code(s): L03.119 - Cellulitis of unspecified part of limb Category: Medical Code(s): L03.90 - Cellulitis, unspecified (7) Renal insufficiency Current visit: Yes Status: Acute Category: Medical Code(s): N28.9 - Disorder of kidney and ureter, unspecified (8) Respiratory failure Current visit: Yes Status: Acute Qualifiers: Chronicity: acute on chronic Respiratory failure complication: hypoxia and hypercapnia Qualified Code(s): J96.21 - Acute and chronic respiratory failure with hypoxia; J96.22 - Acute and chronic respiratory failure with hypercapnia Category: Medical Code(s): J96.90 - Respiratory failure, unspecified, unspecified whether with hypoxia or hypercapnia (9) Diabetes type 2, uncontrolled Current visit: Yes Status: Acute Category: Medical Code(s): E11.65 - Type 2 diabetes mellitus with hyperglycemia - Assessment and plan all Dx Assessment and Plan for all problems:: Agree with note and plan above
[2018-11-14 10:51] LABS: Hypochromasia 1+; Lymphocytes % 6 % (10-50); Monocytes % 3 % (2-9); Neutrophils % 91 % (42-76); Total Cells Counted 100
--- NOTE | 2018-11-14 14:28 | Cardiology Report ---
PROCEDURE: 2-D M-mode and color Doppler study INDICATIONS FOR THE TEST: Chest pain COPD+ Heart Murmur Tobacco Smoking Palpitations Fatigue+ Syncope Edema+ Hypertension+Diabetes Mellitus+ Rheumatic Fever SOB+BULL Obesity+Hyperlipidemia Family History HD Additional History AMS Definity contrast utilized. TDE due to patient on bipap supine on back and body habitus PATIENT INFORMATION HEIGHT: 71 WEIGHT: 341 GENDER: Male B/P: 137/62 2-D/M-MODE INTERPRETATION: 2-D MEASUREMENTS OBSERVED VALUES IN CMS Right Ventricular Dimension (RVDd) 2.3 Interventricular Septum (Thickness)(IVsd) 1.3 Left Ventricular Internal Dimensions(LVIDd) 5.7 Left Ventricular Posterior Wall (Thickness)(LVPWd) 1.3 Aortic Root 3.4 Aortic Cusp Separation 2.3 Left Atrial Dimensions (LAD) 4.6 2D 1. Left atrium is mildly enlarged, left ventricle is normal size, mild concentric left ventricular hypertrophy, visually estimated ejection fraction 55% with no regional wall motion abnormality. 2. The right atrium and right ventricle is normal size and contractility 3. The aortic valve is minimally thickened and fibrosed. 4. The mitral and tricuspid valve is grossly normal. 5. The pulmonic valve is poorly visualized. 6. No significant pericardial effusion noted. DOPPLER INTERROGATION: Doppler interrogation of the aortic, mitral and tricuspid valvular presence of mild mitral and tricuspid regurgitation, tricuspid regurgitant jet velocity is inadequate for calculation of the right ventricular systolic pressure, grade 1 diastolic dysfunction seen with tissue Doppler evidence of raised left atrial pressure. CONCLUSION: 1. Normal left ventricular size, mild concentric left ventricular hypertrophy, visually estimated ejection fraction of 55% with no regional wall motion abnormality, Definity contrast was utilized to delineate endocardial surfaces. Grade 1 diastolic dysfunction seen with tissue Doppler evidence of raised left atrial pressure. 2. Mild mitral and tricuspid regurgitation 3. No significant pericardial effusion noted.
[2018-11-15 06:31] LABS: Anion Gap 9.8 mEq/L (5-15); Calcium 7.9 mg/dL (8.5-10.1); Potassium 4.8 mmoL/L (3.5-5.1)
--- NOTE | 2018-11-15 09:29 | Discharge Summary ---
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 Faith here in town, who suffers from multiple medical problems, including morbid obesity, uncontrolled diabetes and chronic respiratory insufficiency with pickwickian syndrome, who is on chronic antiviral medicines ostensibly as a consequence of a Hodgkin's lymphoma many years ago, who presented to the emergency department yesterday evening with a 3-day history of increasing mental status changes, confusion, nausea with vomiting and increasing leg swelling. Apparently has had some falls at home. His and daughter had tried to convince him to go to the [facility] emergency department but he declined until later in the evening yesterday when he requested an ambulance to bring him to the [facility]. In the ER here he was found to be acidotic, required BiPAP for respiratory stabilization, had significant cellulitis of both lower extremities and was found to have mild acute kidney injury superimposed on chronic kidney disease. There is also a history from the family of "new fluid around his heart and an aortic abdominal aneurysm" recently diagnosed at the [facility] with upcoming appointments. Significant record deficit given his recent care at the [facility]. Family members deny fevers at home, and do report hypoglycemia the afternoon of admission. Hospital Course Hospital Course: Mr. Love was admitted for hypoxemic and hypercarbic respiratory failure with respiratory acidosis. Was initiated on BiPAP at time of admission with significant improvement in blood gas and hypercarbia. Was monitored on his baseline oxygen during admission with steady improvement and stability in his respiratory status and chronic respiratory failure. During his admission he was additionally initiated on antibiotics for concern for bilateral lower extremity cellulitis. Responded well to use of CPAP overnight with improvement in his acidosis. Maintained on sliding scale insulin for his diabetes. Initially his antiretroviral therapy was held due to concern it may be causing his acidosis however further questioning elicited that this medication along with previous antiretroviral therapies have been part of his daily regimen for the past 20 years since his diagnosis with HIV. He previously communicated that he was on these medications due to lymphoma out of concern for a family member not being aware of his diagnosis. Further questioning one-on-one elicited the true diagnosis for which she was being treated. It was recommended at discharge that he restart his ART immediately upon getting home as he has been well controlled with undetectable viral load and normal T-cell counts per his report. Tolerated regular diet, on baseline oxygen. Transition to oral antibiotics to complete course for lower extremity cellulitis. Afebrile, hemodynamically stable at time of discharge. Discharged home in the care of his and daughter. Objective Vital signs: Temp Pulse Resp BP Pulse Ox 97.9 F 100 H 20 142/84 H 92 L 11/15/18 03:50 11/15/18 06:20 11/15/18 03:50 11/15/18 03:50 11/15/18 06:20 Narrative: Alert and oriented x3 Rate and rhythm regular, + murmur Lung sounds clear with exception of fine crackles bilateral LL, distant breath sounds Abdomen protuberant, but soft LE with 2+ edema, chronic discoloration and erythema bilateral lower legs with multiple superficial wounds scattered, scant serous drainage stick blood noted, unable to palpate pedal pulses bilaterally Results Labs on day of discharge: Labs from last 24 hours 11/15/18 11/15/18 11/14/18 06:06 05:35 20:06 Total Counted Neutrophils % (Manual) Lymphocytes % (Manual) Monocytes % (Manual) Platelet Estimate Hypochromasia Sodium 140 Potassium 4.8 Chloride 102 Carbon Dioxide 33 H Anion Gap 9.8 BUN 50 H Creatinine 1.28 D Estimated Creat Clear 62 Estimated GFR 57 L Est GFR ( Amer) 68 D Glucose 213 H POC Glucose 208 H 410 H* Calcium 7.9 L 11/14/18 11/14/18 11/14/18 16:26 11:36 05:28 Total Counted 100 Neutrophils % (Manual) 91 H Lymphocytes % (Manual) 6 L Monocytes % (Manual) 3 Platelet Estimate Normal Hypochromasia 1+ Sodium Potassium Chloride Carbon Dioxide Anion Gap BUN Creatinine Estimated Creat Clear Estimated GFR Est GFR ( Amer) Glucose POC Glucose 438 H* 445 H* Calcium Preliminary micro results at discharge 11/13/18 00:10 Blood Culture - Preliminary Blood NO GROWTH AFTER 48 HOURS 11/13/18 00:10 Blood Culture - Preliminary Blood NO GROWTH AFTER 48 HOURS DS: Diagnosis - Discharge Diagnosis (1) Morbid obesity with BMI of 45.0-49.9, adult Status: Acute (2) Aortic aneurysm, abdominal Status: Acute (3) Pericardial effusion Status: Acute (4) Acidosis Status: Acute Problem details: Likely acute on chronic hypoxemic and hypercarbic respiratory failure. Blood gas on admission consistent with respiratory acidosis/hypercarbia. Improved with supplemental oxygen, and use of CPAP at night. CPAP at home that he does not use often. Plan is for him to use this regularly, states understanding of the need and agrees with plan. (5) Altered mental status Status: Acute (6) Cellulitis Status: Acute (7) Renal insufficiency Status: Acute (8) Respiratory failure Status: Acute (9) Diabetes type 2, uncontrolled Status: Acute (10) HIV disease Status: Chronic Problem details: Further questioning of patient prior to discharge in relation to his Biktarvy medication elicits that he is HIV positive and has known since the mid . He has been on ART therapy for greater than 20 years with good control, undetectable viral load, stable T-cell counts per rep ort. As he had previously been reporting that his antiretroviral therapy was due to his lymphoma diagnosis it had initially been held due to concern that it was related to his acidosis. However, given history diagnosis, instructed to restart medication soon as he gets home. Currently asymptomatic from his HIV. No AIDS defining illnesses. Follows with infectious disease through the [facility]/. Discharge Plan - Patient Discharge Instructions ACTIVITY: Continue current activity DIET: continue same diet Additional Instructions: FOLLOW UP WITH INFECTION CONTROL DOCTOR. Patient Instructions: DI for Cellulitis -- Adult, Chronic Obstructive Pulmonary Disease (Alternative Therapy), Low Glycemic Index Diets (Alternative Therapy), Chronic Obstructive Pulmonary Disease, Carbohydrate-Counting Diet, DI for Chronic Obstructive Pulmonary Disease, DI for Hyperglycemia -- Adult, DI for Respiratory Failure, DI for Aortic Aneurysm - Follow up Plan Follow up with: Bruce Faith [Primary Care Provider] - Disposition: Home, Self-Jail Medications: Home Medications Medication Instructions Recorded Confirmed Type Baclofen [Lioresal 10mg tablet] 10 mg PO TIDP PRN 11/13/18 11/13/18 History Bictegrav/Emtricit/Tenofov Ala 1 each PO DAILY 11/13/18 11/13/18 History [Biktarvy 50-200-25 mg Tablet] Cholecalciferol (Vitamin D3) 2,000 unit PO DAILY 11/13/18 11/13/18 History [Vitamin D3 1,000 Unit Tab] Ergocalciferol (Vitamin D2) 400 unit PO DAILY 11/13/18 11/13/18 History [Vitamin D] Finasteride [Proscar 5mg Tablet] 5 mg PO DAILY 11/13/18 11/13/18 History Furosemide [Furosemide 40MG tAB] 40 mg PO DAILY PRN 11/13/18 11/13/18 History Hydrocodone/Acetaminophen [[place] 1 tab PO TID PRN 11/13/18 11/13/18 History 7.5-325 Tablet] Insulin Regular, Human [Humulin R 200 unit SQ BID 11/13/18 11/13/18 History U-500] Lidocaine 1 each TP DAILYP PRN 11/13/18 11/13/18 History Losartan Potassium 100 mg PO DAILY 11/13/18 11/13/18 History Metoprolol Tartrate 100 mg PO BID 11/13/18 11/13/18 History Naloxone HCl [Narcan] 4 mg NS NEEDED PRN 11/13/18 11/13/18 History Tamsulosin HCl [Flomax 0.4mg 0.4 mg PO HS 11/13/18 11/13/18 History capsule] Trazodone HCl 50 mg PO HS PRN 11/13/18 11/13/18 History Insulin Glargine,Hum.rec.anlog 30 unit SQ HS 30 Days #3 insuln.pen 11/15/18 Rx [Insulin Glargine 100 Units/mL 3mL flexpen] cephALEXin [Keflex 500mg Cap] 500 mg PO BID 7 Days #14 cap 11/15/18 Rx Prescriptions/Medication Reconciliation: New Insulin Glargine,Hum.rec.anlog [Insulin Glargine 100 Units/mL 3mL flexpen] 30 unit SQ HS 30 Days #3 insuln.pen cephALEXin [Keflex 500mg Cap] 500 mg PO BID 7 Days #14 cap Continue Tamsulosin HCl [Flomax 0.4mg capsule] 0.4 mg PO HS Naloxone HCl [Narcan] 4 mg NS NEEDED PRN PRN Reason: overdose Metoprolol Tartrate 100 mg PO BID Losartan Potassium 100 mg PO DAILY Lidocaine 1 each TP DAILYP PRN PRN Reason: pain Finasteride [Proscar 5mg Tablet] 5 mg PO DAILY Ergocalciferol (Vitamin D2) [Vitamin D] 400 unit PO DAILY Bictegrav/Emtricit/Tenofov Ala [Biktarvy 50-200-25 mg Tablet] 1 each PO DAILY Baclofen [Lioresal 10mg tablet] 10 mg PO TIDP PRN PRN Reason: Muscle Spasm Trazodone HCl 50 mg PO HS PRN PRN Reason: Sleep Insulin Regular, Human [Humulin R U-500] 200 unit SQ BID Hydrocodone/Acetaminophen [[place] 7.5-325 Tablet] 1 tab PO TID PRN PRN Reason: PAIN Cholecalciferol (Vitamin D3) [Vitamin D3 1,000 Unit Tab] 2,000 unit PO DAILY Furosemide [Furosemide 40MG tAB] 40 mg PO DAILY PRN PRN Reason: fluid Discontinued Metformin HCl [Metformin HCl ER] 500 mg PO BID
== END 2018-11-15 11:05 | disposition home or self-care (01) | DRG 189 ==
LOC: 2ND 23:53 → ER 23:53 → OBSVTOIN 11-13 05:40 → 2ND 11-13 06:28
PROVIDERS: ADMIT Internal Medicine Adolescent Medicine; ATTEND Internal Medicine Adolescent Medicine

== ENCOUNTER 2019-08-02 18:31 | Inpatient (IN) ==
--- NOTE | 2019-08-02 18:58 | Emergency Department Note ---
ED Disposition Clinical Impression: COPD exacerbation, Hypoglycemia, Venous stasis ulcers of both lower extremities Acute respiratory failure Qualifiers: Respiratory failure complication: hypercapnia Qualified Code(s): J96.02 - Acute respiratory failure with hypercapnia Acute bronchitis Qualifiers: Bronchitis organism: unspecified organism Qualified Code(s): J20.9 - Acute bronchitis, unspecified Disposition: Admitted As Inpatient Condition on Discharge: Serious Referrals: Provider,Referral, MD [Primary Care Provider] - - Critical Care Critical Care Time: Yes Attestation: On 08/02/19, the high probability of a clinically significant, sudden or life threatening deterioration of the following system(s) required my full and direct attention, intervention and personal management. The time I documented below is in addition to time spent performing reported procedures but includes the following listed in this critical care notation. Total Critical Care Time: 35 Vital system(s) involved:: Metabolic Failure, Respiratory Failure My critical care processes included: Assessment & monitoring of V/S, Initial and Re-exams, Data Review/Interpretation, Coordinating Care, Medication Orders and management, Documentation Medical Decision Making - Valentin Inquiry Pt receiving controlled substance: No Vital Signs: 08/02/19 18:32 08/02/19 18:59 08/02/19 19:33 Temperature 100.1 F H Temperature Source Oral Pulse Rate 81 Pulse Rate [Radial] 111 H 114 H Respiratory Rate 26 H 24 Blood Pressure [Left Arm] 151/78 H 151/78 H Blood Pressure Mean [Left Arm] 102 102 Blood Pressure Source [Left Arm] Automatic Cuff Automatic Cuff Blood Pressure Position [Left Arm] Sitting Supine 02 Sat by Pulse Oximetry 97 96 Oxygen Delivery Method Nasal Cannula Nasal Cannula Oxygen Flow Rate (LPM) 5 3 - Lab Data Lab Results 08/02/19 18:41: WBC 9.2, RBC 4.46 L, Hgb 12.3 L, Hct 40.9 L, MCV 91.8, MCH 27.7, MCHC 30.2 L, RDW 14.4, Plt Count 331, MPV 7.6, Neut % (Auto) 72.5, Lymph % (Auto) 17.9, [place] % (Auto) 7.0, Eos % (Auto) 1.9, Baso % (Auto) 0.6, Neut # (Auto) 6.7, Lymph # (Auto) 1.7, [place] # (Auto) 0.7, Eos # (Auto) 0.2, Baso # (Auto) 0.1 08/02/19 18:41: Sodium 139, Potassium 3.9, Chloride 98, Carbon Dioxide 36 H, Anion Gap 8.9, BUN 20 H, Creatinine 1.29, Estimated Creat Clear 110, Estimated GFR 56 L, Est GFR ( Amer) 68, Glucose 58 L, Calcium 8.3 L, Total Bilirubin 0.3, AST 24, ALT 19, Alkaline Phosphatase 165 H, Troponin I < 0.02, Total Protein 9.1 H, Albumin 2.8 L, Globulin 6.3 H, Albumin/Globulin Ratio 0.4 L 08/02/19 18:41: Lactate 2.6 H 08/02/19 18:41: Influenza Type A Ag Negative, Influenza Type B Ag Negative 08/02/19 19:05: Specimen Source R/r, O2 % 3, ABG pH 7.24 L*, ABG pCO2 88.2 H, ABG pO2 66.2 L, ABG HCO3 37.1 H, ABG Total CO2 39.8 H, ABG O2 Saturation 91, ABG Base Excess 9.8 H, Jack Test Y Result diagrams: 08/02/19 18:41 08/02/19 18:41 Orders (Tests/Meds): ED MEDICATIONS Generic Name Dose Route Start Last Admin Trade Name Freq PRN Reason Stop Dose Admin Sodium Chloride 1,000 mls @ 999 mls/hr 08/02/19 19:00 08/02/19 18:55 Sod Chlor 0.9% 1000ml Bag IV 08/02/19 20:00 999 mls/hr .Q1H1M DEANA Administration Ceftriaxone Sodium 1 gm/ 50 mls @ 100 mls/hr 08/02/19 20:00 08/02/19 20:02 Sodium Chloride IV 08/16/19 19:59 100 mls/hr Q24H DEANA Administration Protocol Discontinued Medications Generic Name Dose Route Start Last Admin Trade Name Freq PRN Reason Stop Dose Admin Acetaminophen 650 mg 08/02/19 18:50 08/02/19 18:55 Acetaminophen 325mg Tab PO 08/02/19 18:51 650 mg ONCE ONE Administration Dextrose 50 ml 08/02/19 19:48 08/02/19 20:01 Dextrose 50% 50ml Syringe IVP 08/02/19 19:49 50 ml ONCE ONE Administration Methylprednisolone Sodium Succinate 125 mg 08/02/19 19:20 08/02/19 19:24 Solu-Medrol 125mg/2ml Vial IV 08/02/19 19:21 125 mg ONCE ONE Administration ORDERS Category Date Time Status XR chest portable Stat Exams 08/02/19 18:48 Taken Troponin I Q3H Lab 08/02/19 22:00 Ordered Troponin I Q3H Lab 08/03/19 01:00 Ordered Urinalysis and Microscopic Stat Lab 08/02/19 18:48 Ordered Blood Culture Stat Micro 08/02/19 18:41 Received Wound Culture and Gram Stain Stat Micro 08/02/19 19:05 Results Wound Culture and Gram Stain Stat Micro 08/02/19 19:05 Results ABG PH Stat RT 08/02/19 18:48 Ordered ECG Request by /Prashanth Stat Y 08/02/19 18:49 Ordered - Radiology Data #1 Image(s): Chest Image Reviewed: Yes I reviewed the patient's radiology image Cardiomegaly, low lung volumes limits this study interpretation. Prominence of left hilum. - Physician Consults Physician Consulted: Preston Time: 20:08 Reason -: Admission Comment/Response: Agrees to admit the patient to the hospital. We discussed the patient's clinical information, including history, exam, laboratory and radiology results and ED course. Per hospital procedure, I will write temporary bridge inpatient orders on the patient. Specific orders requested by the admitting physician: Discontinue steroids for now. Continue BiPAP. ABGs in the morning. Continue Rocephin, add vancomycin. Continue nebulizer treatments. General Adult HPI - General Chief complaint: Weakness Stated complaint: Weakness, Fever Time Seen by Provider: 08/02/19 18:57 Mode of Arrival: Wheelchair Limitations: No Limitations Description of Symptoms (Recalled from ER Triage Doc. by RN): Patient has an extensive history. This morning he began to have difficulty breathing, running a fever, cough and increased weakness. Family states that he has had continued problems with his legs that the [facility] has not been treating. - History of Present Illness HPI narrative: Brought in by family. Patient is a poor historian, history is largely obtained from the family. He has been sick all week with a productive cough. He has chronic weeping sores on his legs, his left leg is been getting worse. [facility] "[facility] will not do anything about it". Last night in the middle of night he began running a fever over 104 degrees. He denies having any pain except on his backside. states he had a sore there but "they got it healed up". Has had a prior admission here for acute respiratory failure. - Related Data Home Medications Medication Instructions Recorded Confirmed Baclofen [Lioresal 10mg tablet] 10 mg PO TIDP PRN 11/13/18 08/02/19 Bictegrav/Emtricit/Tenofov Ala 1 each PO DAILY 11/13/18 08/02/19 [Biktarvy 50-200-25 mg Tablet] Finasteride [Proscar 5mg Tablet] 5 mg PO DAILY 11/13/18 08/02/19 Furosemide [Furosemide 40MG tAB] 40 mg PO DAILY PRN 11/13/18 08/02/19 Insulin Regular, Human [Humulin R 325 unit SQ BID 11/13/18 08/02/19 U-500] Lidocaine 1 each TP DAILYP PRN 11/13/18 08/02/19 Losartan Potassium 100 mg PO DAILY 11/13/18 08/02/19 Metoprolol Tartrate [Lopressor 100 100 mg PO BID 11/13/18 08/02/19 mg Tablets] Tamsulosin HCl [Flomax 0.4mg 0.4 mg PO HS 11/13/18 08/02/19 capsule] Trazodone HCl 50 mg PO HS PRN 11/13/18 08/02/19 Alogliptin Benzoate [Alogliptin] 12.5 mg PO DAILY 08/02/19 08/02/19 Aspirin [Aspir 81] 81 mg PO DAILY 08/02/19 08/02/19 Calcium Carbonate 650 mg PO DAILY 08/02/19 08/02/19 Fluticasone Propionate [Flonase 2 spr NS DAILY 08/02/19 08/02/19 50mcg nasal spray 16gm] Gabapentin [Gabapentin 300mg Cap] 600 mg PO TID 08/02/19 08/02/19 Insulin Glargine,Hum.rec.anlog 50 unit SQ DAILY 08/02/19 08/02/19 [Insulin Glargine 100 Units/mL 3mL flexpen] Ipratropium/Albuterol Sulfate 1 puff IH QID 08/02/19 08/02/19 [Combivent Respimat Inh] Allergies Allergy/AdvReac Type Severity Reaction Status Date / Time SANDRA Inhibitors Allergy Unknown Unknown Verified 11/13/18 07:47 allergy reaction clofibrate Allergy Unknown Unknown Verified 11/13/18 07:47 allergy reaction enalapril Allergy Unknown Unknown Verified 11/13/18 07:47 allergy reaction erythromycin base Allergy Unknown Unknown Verified 11/13/18 07:47 allergy reaction gemfibrozil Allergy Unknown Unknown Verified 11/13/18 07:47 allergy reaction hepatitis A virus vaccine Allergy Unknown Unknown Verified 11/13/18 07:47 allergy reaction hydralazine Allergy Unknown Unknown Verified 11/13/18 07:47 allergy reaction Macrolide Antibiotics Allergy Unknown Unknown Verified 11/13/18 07:47 allergy reaction pravastatin [From Pravachol] Allergy Unknown Unknown Verified 11/13/18 07:47 allergy reaction Pgmtfyd-Rda-Hwt Reductase Allergy Unknown Unknown Verified 11/13/18 07:47 Inhibitor allergy reaction [facility] History - Hepatitis A Screen Drug use history?: No High risk sexual behaviors?: No History of sexually transmitted infection?: No Currently employed?: No Childcare worker?: No Do you have indoor plumbing?: Yes Do you have electricity?: Yes Attestation statement:: This patient has been screened for Hepatitis A risk factors. I have reviewed the patient's past medical history: Yes Medical History: Reports:: Cancer (Melanoma), Diabetes Mellitus Type 2, Hyperlipidemia, Hypertension, MRSA, Myocardial Infarction Other Surgeries: Yes: Colonoscopy, Hernia Repair, Sinus Surgery, Other (Left Arm) Amputation: No - Social History Educational Level: Completed College Alcohol Intake: never Occupational Status: disabled Housing: house Household Members: spouse Family Hx:: Cancer, Hyperlipidemia, Hypertension ROS Obtained: Yes All systems reviewed & no additional complaints - Constitutional Constitutional: Reports fever(s), Reports weakness - ENT Ears, Nose, Mouth, and Throat: Denies nasal discharge, Denies sore throat - Cardiovascular Cardiovascular: Denies chest pain - Respiratory Respiratory: Yes cough, No dyspnea, Yes excessive phlegm production - Gastrointestinal Gastrointestingal: Denies: abdominal pain, diarrhea, vomiting - Integumentary/Breasts Skin/Breast: Reports as per HPI - Neurologic Neurologic: Denies headache(s) Physical Exam - General General appearance: other (Mildly somnolent, but answers questions and is cooperative) - Head Head exam: atraumatic, normocephalic - Eye Eye exam: Present: normal appearance, EOMI - ENT ENT exam: Present: mucous membranes moist - Neck Neck exam: Present: normal inspection, trachea midline. Absent: meningismus - Chest Chest inspection: Present: normal inspection, symmetric chest wall rise - Respiratory Respiratory exam: Present: normal lung sounds bilaterally. Absent: respiratory distress - Cardiovascular Cardiovascular exam: Present: normal rhythm, tachycardia - Abdominal Exam Abdominal exam: Present: soft, normal bowel sounds. Absent: distention, tenderness, guarding, rebound - Back Exam Comment: Buttocks and sacral area inspected, no sores found - Neurological Exam Neurological exam: Present: oriented X3, CN II-XII intact, other (mildly somnolent). Absent: motor sensory deficit - Psychiatric Psychiatric exam: Present: normal affect, normal mood - Skin Skin exam: Present: warm, dry - Other Other exam information: Venous stasis changes of both lower extremities from below knees to the ankles. Several weeping ulcers present on both legs.
[2019-08-02 19:02] LABS: Basophils # 0.1 K/mm3 (0-0.2); Basophils % 0.6 % (0.1-2.0); Eosinophils # 0.2 K/mm3 (0.0-0.4); Eosinophils % 1.9 % (0.1-12.0); Hematocrit 40.9 % (42.0-52.0); Hemoglobin 12.3 g/dL (14.1-18.0); Lymphocytes # 1.7 K/mm3 (0.7-4.5); Lymphocytes % 17.9 % (10-50); Mean Corpuscular HGB Conc 30.2 g/dL (31.8-35.4); Mean Corpuscular Volume 91.8 fl (80-94); Mean Platelet Volume 7.6 fl (7.4-10.4); Monocytes # 0.7 K/mm3 (0.1-1.0); Neutrophils # 6.7 K/mm3 (1.8-7.8); Neutrophils % 72.5 % (37.0-80.0); Platelet Count 331 K/mm3 (142-424); Red Blood Count 4.46 M/mm3 (4.60-6.20); Red Cell Distribution Width 14.4 % (11.5-17.5); White Blood Count 9.2 K/mm3 (4.8-10.8)
[2019-08-02 19:06] LABS: ABG Base Excess 9.8 mmol/L (-2.4-2.3); ABG HCO3 37.1 mmhg (22.0-26.0); ABG Oxygen Saturation 91 % (90-100); ABG PH 7.24 mmol/L (7.35-7.45); ABG PO2 66.2 mmhg (80-100); ABG TCO2 39.8 mmhg (23-27)
[2019-08-02 19:07] LABS: Allen's Test Y; Oxygen 3 %
[2019-08-02 19:08] LABS: ABG PCO2 88.2 mmhg (35.0-45.0)
[2019-08-02 19:21] LABS: Alanine Aminotransferase 19 U/L (12-78); Albumin Level 2.8 gm/dL (3.4-5.0); Albumin/Globulin Ratio 0.4 (1.1-1.8); Alkaline Phosphatase 165 U/L (46-116); Anion Gap 8.9 mEq/L (5-15); Aspartate Amino Transferase 24 U/L (15-37); Bilirubin,Total 0.3 mg/dL (0.2-1.0); Blood Urea Nitrogen 20 mg/dL (7-18); Calcium 8.3 mg/dL (8.5-10.1); Carbon Dioxide 36 mmol/L (21.0-32.0); Chloride 98 mmol/L (98-107); Globulin 6.3 gm/dl (1.3-3.2); Glucose 58 mg/dL (74-106); Sodium 139 mmol/L (136-145); Total Protein,Serum 9.1 gm/dL (6.4-8.2)
[2019-08-02 20:12] LABS: Microscopic, Urine URINE MICROSCOPIC (MICROSCOPIC)
[2019-08-02 20:16] LABS: Appearance,Urine CLEAR (Clear); Bilirubin,Urine Negative (Negative); Blood, Urine 3+ (Negative); Color,Urine YELLOW (Yellow); Glucose,Urine (UA) Negative (Negative); Ketones,Urine Negative (Negative); Leukocyte Esterase,Urine Negative (Negative); PH,Urine 5.5 (5.0-8.5); Protein,Urine 1+ (Negative); Specific Gravity, Urine >= 1.030 (1.005-1.030); Urobilinogen,Urine 0.2 EU/dl (0.2)
[2019-08-02 20:18] LABS: Amorphous Sediment,Urine 2+ /lpf
[2019-08-03 06:39] LABS: ABG Base Excess 9.2 mmol/L (-2.4-2.3); ABG HCO3 36.2 mmhg (22.0-26.0); ABG Oxygen Saturation 95 % (90-100); ABG PH 7.26 mmol/L (7.35-7.45); ABG PO2 79.5 mmhg (80-100); ABG TCO2 38.7 mmhg (23-27)
[2019-08-03 06:39] LABS: Basophils % 0.1 % (0.1-2.0); Eosinophils % 0.3 % (0.1-12.0); Hematocrit 37.8 % (42.0-52.0); Lymphocytes # 0.7 K/mm3 (0.7-4.5); Lymphocytes % 8.4 % (10-50); Mean Corpuscular HGB Conc 28.7 g/dL (31.8-35.4); Mean Platelet Volume 7.7 fl (7.4-10.4); Monocytes # 0.2 K/mm3 (0.1-1.0); Neutrophils # 7.4 K/mm3 (1.8-7.8); Neutrophils % 89.2 % (37.0-80.0); Platelet Count 240 K/mm3 (142-424); Red Blood Count 4.11 M/mm3 (4.60-6.20); Red Cell Distribution Width 14.2 % (11.5-17.5); White Blood Count 8.3 K/mm3 (4.8-10.8)
[2019-08-03 06:42] LABS: Hemoglobin 10.8 g/dL (14.1-18.0)
[2019-08-03 06:43] LABS: Allen's Test acceptable; Oxygen 32 %
[2019-08-03 06:44] LABS: ABG PCO2 82.2 mmhg (35.0-45.0)
[2019-08-03 06:45] LABS: Anion Gap 7.1 mEq/L (5-15); Calcium 7.7 mg/dL (8.5-10.1)
[2019-08-03 07:11] LABS: Eosinophils % 1 % (0-3); Lymphocytes % 11 % (10-50); Neutrophils % 81 % (42-76); Total Cells Counted 100
[2019-08-03 07:12] LABS: Hypochromasia 2+; Rouleaux 2+
--- NOTE | 2019-08-03 08:24 | History & Physical Report ---
*Admission Date: 08/03/19 *Chief complaint: Shortness of air, acute respiratory failure with hypercapnia, bilateral leg *History of present illness: 64-year-old white male with multiple medical problems including poorly controlled diabetes, chronic pickwickian syndrome with chronic hypercapnia, use of CPAP at night, morbid obesity and chronic stasis dermatitis with cellulitis and chronic pain syndrome who has been progressively more ill over the past couple of weeks. He has been to his primary doctor at the [facility] a couple of times as well as to the [facility] ER apparently and "nothing has been done" in regards to antibiotic therapy, changing his medications or help with his worsening respiratory symptoms. He and his report that he is progressively short of air, aggressively has problems with increasing somnolence and cough. Has had fevers and in fact yesterday had a temperature over 100. Also has had increasing problems with leg swelling and redness of his legs with excoriations bilaterally. Presented to the emergency department where he was found to have tachycardia, fever and acute on chronic respiratory failure with hypercapnia and respiratory acidosis. Admitted to hospital for IV antibiotics, further diagnostic testing and enhanced respiratory toilet. [facility] History I have reviewed the patient's past medical history: Yes Medical History: Reports:: Cancer, Diabetes Mellitus Type 2, Hyperlipidemia, Hypertension, MRSA, Myocardial Infarction *Have you ever received a pneumonia vaccine?: Yes *Have you received a flu vaccine this season?: Yes Other Medical History: Reports: Arthritis, Chemotherapy, Fibromyalgia, HIV Laterality Cases: Bilateral: Other Other Surgeries: Yes: Colonoscopy, Hernia Repair, Sinus Surgery, Other (Left Arm) Amputation: No Fractures: Yes - *Social History Educational Level: Completed College Alcohol Intake: never *Occupational Status:: disabled Housing: house Household Members: spouse *Travel in the last 8 weeks: None Family Hx:: Cancer, Hyperlipidemia, Hypertension Review of Systems - Review of Systems Review of systems:: pertinent systems reviewed and negative unless documented below Patient is on BiPAP so review of systems is somewhat difficult, but patient is alert and oriented. Reports shortness of air but improving. Reports chronic back pain but no new pains. Reports no angina. Reports swelling is noted. Reports no nausea and vomiting. - *Neurologic Reports weakness, Denies headache(s) Meds Home Medications Medication Instructions Recorded Confirmed Type Baclofen [Lioresal 10mg tablet] 10 mg PO TIDP PRN 11/13/18 08/03/19 History Bictegrav/Emtricit/Tenofov Ala 1 each PO DAILY 11/13/18 08/03/19 History [Biktarvy 50-200-25 mg Tablet] Finasteride [Proscar 5mg Tablet] 5 mg PO DAILY 11/13/18 08/03/19 History Insulin Regular, Human [Humulin R 325 unit SQ BID 11/13/18 08/03/19 History U-500] Lidocaine 1 each TP DAILYP PRN 11/13/18 08/02/19 History Losartan Potassium 100 mg PO DAILY 11/13/18 08/03/19 History Metoprolol Tartrate [Lopressor 100 150 mg PO BID 11/13/18 08/03/19 History mg Tablets] Tamsulosin HCl [Flomax 0.4mg 0.4 mg PO HS 11/13/18 08/03/19 History capsule] Trazodone HCl 50 mg PO HS PRN 11/13/18 08/03/19 History Alogliptin Benzoate [Alogliptin] 12.5 mg PO DAILY 08/02/19 08/03/19 History Aspirin [Aspir 81] 81 mg PO DAILY 08/02/19 08/03/19 History Calcium Carbonate 650 mg PO DAILY 08/02/19 08/03/19 History Gabapentin [Gabapentin 300mg Cap] 600 mg PO TID 08/02/19 08/03/19 History Insulin Glargine,Hum.rec.anlog 50 unit SQ DAILY 08/02/19 08/03/19 History [Insulin Glargine 100 Units/mL 3mL flexpen] Ipratropium/Albuterol Sulfate 1 puff IH QID 08/02/19 08/03/19 History [Combivent Respimat Inh] Hydrophilic Ointment [Hydrophilic] 113 gm TP BIDP PRN 08/03/19 08/03/19 History M-Salicy/Aloe/Menthol/Eucalypt 237 ml TP BIDP PRN 08/03/19 08/03/19 History [[place] Aloe Analgesic Liniment] Allergies Allergy/AdvReac Type Severity Reaction Status Date / Time SANDRA Inhibitors Allergy Unknown Unknown Verified 11/13/18 07:47 allergy reaction clofibrate Allergy Unknown Unknown Verified 11/13/18 07:47 allergy reaction enalapril Allergy Unknown Unknown Verified 11/13/18 07:47 allergy reaction erythromycin base Allergy Unknown Unknown Verified 11/13/18 07:47 allergy reaction furosemide [From Lasix] Allergy Unknown Verified 08/03/19 00:16 gemfibrozil Allergy Unknown Unknown Verified 11/13/18 07:47 allergy reaction hepatitis A virus vaccine Allergy Unknown Unknown Verified 11/13/18 07:47 allergy reaction hydralazine Allergy Unknown Unknown Verified 11/13/18 07:47 allergy reaction Macrolide Antibiotics Allergy Unknown Unknown Verified 11/13/18 07:47 allergy reaction pravastatin [From Pravachol] Allergy Unknown Unknown Verified 11/13/18 07:47 allergy reaction Woaejvy-Tjt-Wly Reductase Allergy Unknown Unknown Verified 11/13/18 07:47 Inhibitor allergy reaction Exam Vital signs and Labs for Last 24 Hours: Temp Pulse Resp BP Pulse Ox 97.6 F 76 19 107/44 L 93 L 08/03/19 08:00 08/03/19 08:00 08/03/19 08:00 08/03/19 08:00 08/03/19 08:00 Laboratory Results - last 24 hr 08/02/19 18:41: WBC 9.2, RBC 4.46 L, Hgb 12.3 L, Hct 40.9 L, MCV 91.8, MCH 27.7, MCHC 30.2 L, RDW 14.4, Plt Count 331, MPV 7.6, Neut % (Auto) 72.5, Lymph % (Auto) 17.9, [place] % (Auto) 7.0, Eos % (Auto) 1.9, Baso % (Auto) 0.6, Neut # (Auto) 6.7, Lymph # (Auto) 1.7, [place] # (Auto) 0.7, Eos # (Auto) 0.2, Baso # (Auto) 0.1 08/02/19 18:41: Sodium 139, Potassium 3.9, Chloride 98, Carbon Dioxide 36 H, Anion Gap 8.9, BUN 20 H, Creatinine 1.29, Estimated Creat Clear 110, Estimated GFR 56 L, Est GFR ( Amer) 68, Glucose 58 L, Calcium 8.3 L, Total Bilirubin 0.3, AST 24, ALT 19, Alkaline Phosphatase 165 H, Troponin I < 0.02, Total Protein 9.1 H, Albumin 2.8 L, Globulin 6.3 H, Albumin/Globulin Ratio 0.4 L 08/02/19 18:41: Lactate 2.6 H 08/02/19 18:41: Influenza Type A Ag Negative, Influenza Type B Ag Negative 08/02/19 19:05: Specimen Source R/r, O2 % 3, ABG pH 7.24 L*, ABG pCO2 88.2 H, ABG pO2 66.2 L, ABG HCO3 37.1 H, ABG Total CO2 39.8 H, ABG O2 Saturation 91, ABG Base Excess 9.8 H, Jack Test Y 08/02/19 20:05: Urine Color Yellow, Urine Appearance Clear, Urine pH 5.5, Ur Specific [place] >= 1.030, Urine Protein 1+, Urine Glucose (UA) Negative, Urine Ketones Negative, Urine Blood 3+, Urine Nitrate Negative, Urine Bilirubin Negative, Urine Urobilinogen 0.2, Ur Leukocyte Esterase Negative, Urine RBC 3-5, Urine WBC 3-5, Amorphous Sediment 2+, Hyaline Casts 10-20 08/02/19 21:55: POC Glucose 81 08/02/19 22:03: Troponin I < 0.02 08/02/19 22:03: Lactate 0.7 08/03/19 01:00: Troponin I < 0.02 08/03/19 05:50: POC Glucose 217 H 08/03/19 06:00: Specimen Source Right radial, O2 % 32, ABG pH 7.26 L, ABG pCO2 82.2 H, ABG pO2 79.5 L, ABG HCO3 36.2 H, ABG Total CO2 38.7 H, ABG O2 Saturation 95, ABG Base Excess 9.2 H, Jack Test acceptable 08/03/19 06:30: WBC 8.3, RBC 4.11 L, Hgb 10.8 L D, Hct 37.8 L, MCV 92.0, MCH 26.4 L, MCHC 28.7 L, RDW 14.2, Plt Count 240 D, MPV 7.7, Neut % (Auto) 89.2 H, Lymph % (Auto) 8.4 L, [place] % (Auto) 2.0, Eos % (Auto) 0.3, Baso % (Auto) 0.1, Neut # (Auto) 7.4, Lymph # (Auto) 0.7, [place] # (Auto) 0.2, Eos # (Auto) 0.0, Baso # (Auto) 0.0, Total Counted 100, Neutrophils % (Manual) 81 H, Band Neutrophils % 7.0, Lymphocytes % (Manual) 11, Eosinophils % (Manual) 1, Platelet Estimate Normal, Hypochromasia 2+, Rouleaux 2+ 08/03/19 06:30: Sodium 138, Potassium 5.1 D, Chloride 102, Carbon Dioxide 34 H, Anion Gap 7.1, BUN 23 H, Creatinine 1.17, Estimated Creat Clear 75, Estimated GFR 63, Est GFR ( Amer) 76, Glucose 241 H D, Calcium 7.7 L I & O for Last 24 hours: Intake & Output 07/31/19 08/01/19 08/02/19 08/03/19 11:59 11:59 11:59 11:59 Intake Total 1720 / 1720 Output Total 900 / 900 Balance 820 / 820 Weight 335 lb 2 oz Microbiology Reports for the Last 24 Hours: Microbiology 08/02/19 19:05 Leg,Left - Wound Gram Stain - Final 08/02/19 19:05 Leg,Left - Wound Wound Culture - Preliminary 08/02/19 19:05 Leg,Right - Wound Gram Stain - Final Narrative: Patient is sleeping with BiPAP machine in the recliner on exam. When awakened he is alert, oriented x3. Lungs have lots of rhonchi and poor air entry, but exam difficult because of morbid obesity and his BiPAP status. However trachea is not deviated and air movement is symmetric. Heart rate is regular, again auscultation difficult because of body habitus. Abdomen is morbidly obese but soft. Patient's legs are wrapped with Kerlix. When this is moved he has significant stasis dermatitis with evidence of overlying cellulitis. Patient has symmetric cranial nerves and is able to move all extremities well although is globally weak. Oropharynx is clear. JVD not assessable because of his obesity Assessment and Plan (1) Uncontrolled diabetes mellitus type 2 without complications Current visit: Yes Status: Acute Category: Medical Follow with sliding scale insulin in the hospital. (2) Acute respiratory failure Current visit: Yes Status: Acute Qualifiers: Respiratory failure complication: hypercapnia Qualified Code(s): J96.02 - Acute respiratory failure with hypercapnia Category: Medical Code(s): J96.00 - Acute respiratory failure, unspecified w hether with hypoxia or hypercapnia Slightly improved. Continue BiPAP, follow with blood gas tomorrow morning (3) Venous stasis ulcers of both lower extremities Current visit: Yes Status: Acute Category: Medical Code(s): I83.019 - Varicose veins of right lower extremity with ulcer of unspecified site; I83.029 - Varicose veins of left lower extremity with ulcer of unspecified site; L97.919 - Non-pressure chronic ulcer of unspecified part of right lower leg with unspecified severity; L97.929 - Non-pressure chronic ulcer of unspecified part of left lower leg with unspecified severity Continue current antibiotic therapy, dressing changes. PT evaluation (4) Acidosis Problem details: Likely acute on chronic hypoxemic and hypercarbic respiratory failure. Blood gas on admission consistent with respiratory acidosis/hypercarbia. Improved after admission. Continue to follow on BiPAP Current visit: No Status: Acute Category: Medical Code(s): E87.2 - Acidosis (5) Altered mental status Current visit: No Status: Acute Qualifiers: Altered mental status type: delirium Qualified Code(s): R41.0 - Disorientation, unspecified Category: Medical Code(s): R41.82 - Altered mental status, unspecified Improving after admission and BiPAP therapy (6) Cellulitis Current visit: No Status: Acute Qualifiers: Site of cellulitis: extremity Site of cellulitis of extremity: lower extremity Laterality: unspecified laterality Qualified Code(s): L03.119 - Cellulitis of unspecified part of limb Category: Medical Code(s): L03.90 - Cellulitis, unspecified Continue current antibiotic therapy (7) Morbid obesity with BMI of 45.0-49.9, adult Current visit: No Status: Acute Category: Medical Code(s): E66.01 - Morbid (severe) obesity due to excess calories; Z68.42 - Body mass index (BMI) 45.0-4 9.9, adult Complicates all aspects of his care (8) Respiratory failure Current visit: No Status: Acute Qualifiers: Chronicity: acute on chronic Respiratory failure complication: hypoxia and hypercapnia Qualified Code(s): J96.21 - Acute and chronic respiratory failure with hypoxia; J96.22 - Acute and chronic respiratory failure with hypercapnia Category: Medical Code(s): J96.90 - Respiratory failure, unspecified, unspecified whether with hypoxia or hypercapnia Continue current BiPAP therapy (9) HIV disease Current visit: No Status: Chronic Category: Medical Code(s): B20 - Human immunodeficiency virus [HIV] disease Patient has been on antiretroviral therapy. Follows with infectious disease at the [facility]. Has an appointment on Sunday. We will restart/continue home antiretroviral medicines. (10) Sepsis Current visit: Yes Status: Acute Category: Medical Code(s): A41.9 - Sepsis, unspecified organism Meets sepsis criteria. On appropriate antibiotics.
--- NOTE | 2019-08-03 09:06 | Pharmacy Consult Notes ---
- Pharmacy Consult Date: 08/03/19 Time: 09:05 Referring provider: DR. MAXWELL Reason for Consult:: VANCOMYCIN DOSING Allergies and ADEs:: Allergies Allergy/AdvReac Type Severity Reaction Status Date / Time SANDRA Inhibitors Allergy Unknown Unknown Verified 11/13/18 07:47 allergy reaction clofibrate Allergy Unknown Unknown Verified 11/13/18 07:47 allergy reaction enalapril Allergy Unknown Unknown Verified 11/13/18 07:47 allergy reaction erythromycin base Allergy Unknown Unknown Verified 11/13/18 07:47 allergy reaction gemfibrozil Allergy Unknown Unknown Verified 11/13/18 07:47 allergy reaction hepatitis A virus vaccine Allergy Unknown Unknown Verified 11/13/18 07:47 allergy reaction hydralazine Allergy Unknown Unknown Verified 11/13/18 07:47 allergy reaction Macrolide Antibiotics Allergy Unknown Unknown Verified 11/13/18 07:47 allergy reaction pravastatin [From Pravachol] Allergy Unknown Unknown Verified 11/13/18 07:47 allergy reaction Mygpupe-Ztk-Sgd Reductase Allergy Unknown Unknown Verified 11/13/18 07:47 Inhibitor allergy reaction tamsulosin [From Flomax] Allergy Unknown Swelling Verified 08/03/19 08:59 of Lip/Tongue/Throat Home Medications:: Home Medications Medication Instructions Recorded Confirmed Type Baclofen [Lioresal 10mg tablet] 10 mg PO TIDP PRN 11/13/18 08/03/19 History Bictegrav/Emtricit/Tenofov Ala 1 each PO DAILY 11/13/18 08/03/19 History [Biktarvy 50-200-25 mg Tablet] Finasteride [Proscar 5mg Tablet] 5 mg PO DAILY 11/13/18 08/03/19 History Insulin Regular, Human [Humulin R 325 unit SQ BID 11/13/18 08/03/19 History U-500] Lidocaine 1 each TP DAILYP PRN 11/13/18 08/02/19 History Losartan Potassium 100 mg PO DAILY 11/13/18 08/03/19 History Metoprolol Tartrate [Lopressor 100 150 mg PO BID 11/13/18 08/03/19 History mg Tablets] Tamsulosin HCl [Flomax 0.4mg 0.4 mg PO HS 11/13/18 08/03/19 History capsule] Trazodone HCl 50 mg PO HS PRN 11/13/18 08/03/19 History Alogliptin Benzoate [Alogliptin] 12.5 mg PO DAILY 08/02/19 08/03/19 History Aspirin [Aspir 81] 81 mg PO DAILY 08/02/19 08/03/19 History Calcium Carbonate 650 mg PO DAILY 08/02/19 08/03/19 History Gabapentin [Gabapentin 300mg Cap] 600 mg PO TID 08/02/19 08/03/19 History Insulin Glargine,Hum.rec.anlog 50 unit SQ DAILY 08/02/19 08/03/19 History [Insulin Glargine 100 Units/mL 3mL flexpen] Ipratropium/Albuterol Sulfate 1 puff IH QID 08/02/19 08/03/19 History [Combivent Respimat Inh] Hydrophilic Ointment [Hydrophilic] 113 gm TP BIDP PRN 08/03/19 08/03/19 History M-Salicy/Aloe/Menthol/Eucalypt 237 ml TP BIDP PRN 08/03/19 08/03/19 History [[place] Aloe Analgesic Liniment] Height: 1.91 m Weight: 152.01 kg Laboratory Results:: Laboratory Results - last 24 hr 08/02/19 18:41: WBC 9.2, RBC 4.46 L, Hgb 12.3 L, Hct 40.9 L, MCV 91.8, MCH 27.7, MCHC 30.2 L, RDW 14.4, Plt Count 331, MPV 7.6, Neut % (Auto) 72.5, Lymph % (Auto) 17.9, [place] % (Auto) 7.0, Eos % (Auto) 1.9, Baso % (Auto) 0.6, Neut # (Auto) 6.7, Lymph # (Auto) 1.7, [place] # (Auto) 0.7, Eos # (Auto) 0.2, Baso # (Auto) 0.1 08/02/19 18:41: Sodium 139, Potassium 3.9, Chloride 98, Carbon Dioxide 36 H, Anion Gap 8.9, BUN 20 H, Creatinine 1.29, Estimated Creat Clear 110, Estimated GFR 56 L, Est GFR ( Amer) 68, Glucose 58 L, Calcium 8.3 L, Total Bilirubin 0.3, AST 24, ALT 19, Alkaline Phosphatase 165 H, Troponin I < 0.02, Total Protein 9.1 H, Albumin 2.8 L, Globulin 6.3 H, Albumin/Globulin Ratio 0.4 L 08/02/19 18:41: Lactate 2.6 H 08/02/19 18:41: Influenza Type A Ag Negative, Influenza Type B Ag Negative 08/02/19 19:05: Specimen Source R/r, O2 % 3, ABG pH 7.24 L*, ABG pCO2 88.2 H, ABG pO2 66.2 L, ABG HCO3 37.1 H, ABG Total CO2 39.8 H, ABG O2 Saturation 91, ABG Base Excess 9.8 H, Jack Test Y 08/02/19 20:05: Urine Color Yellow, Urine Appearance Clear, Urine pH 5.5, Ur Specific [place] >= 1.030, Urine Protein 1+, Urine Glucose (UA) Negative, Urine Ketones Negative, Urine Blood 3+, Urine Nitrate Negative, Urine Bilirubin Negative, Urine Urobilinogen 0.2, Ur Leukocyte Esterase Negative, Urine RBC 3-5, Urine WBC 3-5, Amorphous Sediment 2+, Hyaline Casts 10-20 08/02/19 21:55: POC Glucose 81 08/02/19 22:03: Troponin I < 0.02 08/02/19 22:03: Lactate 0.7 08/03/19 01:00: Troponin I < 0.02 08/03/19 05:50: POC Glucose 217 H 08/03/19 06:00: Specimen Source Right radial, O2 % 32, ABG pH 7.26 L, ABG pCO2 82.2 H, ABG pO2 79.5 L, ABG HCO3 36.2 H, ABG Total CO2 38.7 H, ABG O2 Saturation 95, ABG Base Excess 9.2 H, Jack Test acceptable 08/03/19 06:30: WBC 8.3, RBC 4.11 L, Hgb 10.8 L D, Hct 37.8 L, MCV 92.0, MCH 26.4 L, MCHC 28.7 L, RDW 14.2, Plt Count 240 D, MPV 7.7, Neut % (Auto) 89.2 H, Lymph % (Auto) 8.4 L, [place] % (Auto) 2.0, Eos % (Auto) 0.3, Baso % (Auto) 0.1, Neut # (Auto) 7.4, Lymph # (Auto) 0.7, [place] # (Auto) 0.2, Eos # (Auto) 0.0, Baso # (Auto) 0.0, Total Counted 100, Neutrophils % (Manual) 81 H, Band Neutrophils % 7.0, Lymphocytes % (Manual) 11, Eosinophils % (Manual) 1, Platelet Estimate Normal, Hypochromasia 2+, Rouleaux 2+ 08/03/19 06:30: Sodium 138, Potassium 5.1 D, Chloride 102, Carbon Dioxide 34 H, Anion Gap 7.1, BUN 23 H, Creatinine 1.17, Estimated Creat Clear 75, Estimated GFR 63, Est GFR ( Amer) 76, Glucose 241 H D, Calcium 7.7 L Medical History: Reports:: Cancer, Diabetes Mellitus Type 2, Hyperlipidemia, Hypertension, MRSA, Myocardial Infarction Assessment and Plan (1) Uncontrolled diabetes mellitus type 2 without complications Current visit: Yes Status: Acute Category: Medical (2) Acute respiratory failure Current visit: Yes Status: Acute Qualifiers: Respiratory failure complication: hypercapnia Qualified Code(s): J96.02 - Acute respiratory failure with hypercapnia Category: Medical Code(s): J96.00 - Acute respiratory failure, unspecified whether with hypoxia or hypercapnia (3) Venous stasis ulcers of both lower extremities Current visit: Yes Status: Acute Category: Medical Code(s): I83.019 - Varicose veins of right lower extremity with ulcer of unspecified site; I83.029 - Varicose veins of left lower extremity with ulcer of unspecified site; L97.919 - Non-pressure chronic ulcer of unspecified part of right lower leg with unspecified severity; L97.929 - Non-pressure chronic ulcer of unspecified part of left lower leg with unspecified severity (4) Acidosis Problem details: Likely acute on chronic hypoxemic and hypercarbic respiratory failure. Blood gas on admission consistent with respiratory acidosis/hypercarbia. Improved after admission. Continue to follow on BiPAP Current visit: No Status: Acute Category: Medical Code(s): E87.2 - Acidosis (5) Altered mental status Current visit: No Status: Acute Qualifiers: Altered mental status type: delirium Qualified Code(s): R41.0 - Disorientation, unspecified Category: Medical Code(s): R41.82 - Altered mental status, unspecified (6) Cellulitis Current visit: No Status: Acute Qualifiers: Site of cellulitis: extremity Site of cellulitis of extremity: lower extremity Laterality: unspecified laterality Qualified Code(s): L03.119 - Cellulitis of unspecified part of limb Category: Medical Code(s): L03.90 - Cellulitis, unspecified (7) Morbid obesity with BMI of 45.0-49.9, adult Current visit: No Status: Acute Category: Medical Code(s): E66.01 - Morbid (severe) obesity due to excess calories; Z68.42 - Body mass index (BMI) 45.0- 49.9, adult (8) Respiratory failure Current visit: No Status: Acute Qualifiers: Chronicity: acute on chronic Respiratory failure complication: hypoxia and hypercapnia Qualified Code(s): J96.21 - Acute and chronic respiratory failure with hypoxia; J96.22 - Acute and chronic respiratory failure with hypercapnia Category: Medical Code(s): J96.90 - Respiratory failure, unspecified, unspecified whether with hypoxia or hypercapnia (9) HIV disease Current visit: No Status: Chronic Category: Medical Code(s): B20 - Human immunodeficiency virus [HIV] disease (10) Sepsis Current visit: Yes Status: Acute Category: Medical Code(s): A41.9 - Sepsis, unspecified organism - Assessment and plan all Dx Assessment and Plan for all problems:: BASED ON PATIENT FACTORS, RECOMMEND VANCOMYCIN 2500 MG IV Q24H. WILL OBTAIN VANCOMYCIN TROUGH LEVEL TOMORROW PRIOR TO AM DOSE. PHARMACY WILL FOLLOW DAILY AND ADJUST APPROPRIATE.
--- NOTE | 2019-08-03 10:07 | Pharmacy Consult Notes ---
[facility] Pharmacy VTE Monitoring - Patient Demographics Admission date: 08/02/19 Report Date: 08/03/19 Time: 10:06 Allergies/Adverse Reactions: Patient Allergies SANDRA Inhibitors Allergy (Unknown, Verified 11/13/18 07:47) Unknown allergy reaction clofibrate Allergy (Unknown, Verified 11/13/18 07:47) Unknown allergy reaction enalapril Allergy (Unknown, Verified 11/13/18 07:47) Unknown allergy reaction erythromycin base Allergy (Unknown, Verified 11/13/18 07:47) Unknown allergy reaction gemfibrozil Allergy (Unknown, Verified 11/13/18 07:47) Unknown allergy reaction hepatitis A virus vaccine Allergy (Unknown, Verified 11/13/18 07:47) Unknown allergy reaction hydralazine Allergy (Unknown, Verified 11/13/18 07:47) Unknown allergy reaction Macrolide Antibiotics Allergy (Unknown, Verified 11/13/18 07:47) Unknown allergy reaction pravastatin [From Pravachol] Allergy (Unknown, Verified 11/13/18 07:47) Unknown allergy reaction Yuqlmhs-Tvx-Kzh Reductase Inhibitor Allergy (Unknown, Verified 11/13/18 07:47) Unknown allergy reaction tamsulosin [From Flomax] Allergy (Unknown, Verified 08/03/19 08:59) Swelling of Lip/Tongue/Throat Height: 1.91 m Weight: 152.01 kg Patient Problems: Current Active Problems Acute respiratory failure (Acute) COPD exacerbation (Acute) Acute bronchitis (Acute) Hypoglycemia (Acute) Venous stasis ulcers of both lower extremities (Acute) Uncontrolled diabetes mellitus type 2 without complications (Acute) Sepsis (Acute) - VTE Risk Labs: VTE Related Lab Results Hgb 10.8 g/dL (14.1-18.0) L D 08/03/19 06:30 Hct 37.8 % (42.0-52.0) L 08/03/19 06:30 Plt Count 240 K/mm3 (142-424) D 08/03/19 06:30 BUN 23 mg/dL (7-18) H 08/03/19 06:30 Creatinine 1.17 mg/dL (0.70-1.30) 08/03/19 06:30 Estimated Creat Clear 75 mL/min (50-200) 08/03/19 06:30 Was VTE Risk Assessment Performed: Yes VTE Score: 5 VTE Risk Level: Low Risk - Prophylaxis VTE Prophylaxis Ordered?: Yes Types of VTE Prophylaxis: TEDS Knee High Location of Applied Device: Bilateral Lower Extremeties
[2019-08-04 06:04] LABS: Albumin Level 2.2 gm/dL (3.4-5.0); Albumin/Globulin Ratio 0.4 (1.1-1.8); Anion Gap 7.5 mEq/L (5-15); Bilirubin,Total 0.3 mg/dL (0.2-1.0); Calcium 8.1 mg/dL (8.5-10.1); Globulin 4.9 gm/dl (1.3-3.2); Total Protein,Serum 7.1 gm/dL (6.4-8.2)
[2019-08-04 06:25] LABS: Basophils # 0.1 K/mm3 (0-0.2); Basophils % 0.5 % (0.1-2.0); Eosinophils # 0.1 K/mm3 (0.0-0.4); Eosinophils % 1.4 % (0.1-12.0); Hematocrit 35.3 % (42.0-52.0); Hemoglobin 10.5 g/dL (14.1-18.0); Lymphocytes # 1.5 K/mm3 (0.7-4.5); Lymphocytes % 16.5 % (10-50); Mean Corpuscular HGB Conc 29.7 g/dL (31.8-35.4); Mean Corpuscular Volume 90.2 fl (80-94); Mean Platelet Volume 7.7 fl (7.4-10.4); Monocytes # 0.5 K/mm3 (0.1-1.0); Monocytes % 5.9 % (1.7-9.3); Neutrophils # 6.7 K/mm3 (1.8-7.8); Neutrophils % 75.7 % (37.0-80.0); Platelet Count 257 K/mm3 (142-424); Red Blood Count 3.91 M/mm3 (4.60-6.20); Red Cell Distribution Width 14.3 % (11.5-17.5); White Blood Count 8.9 K/mm3 (4.8-10.8)
--- NOTE | 2019-08-04 08:44 | Progress Note ---
Internal Medicine - PN: Subj *Date: 08/04/19 *Time: 08:41 Interval history: Patient did well overnight. This morning has been able to be off of his BiPAP and is much more comfortable. Exam Vital signs and Labs for Last 24 Hours: Temp Pulse Resp BP Pulse Ox 97.8 F 88 17 122/68 96 08/04/19 04:00 08/04/19 06:44 08/04/19 04:00 08/04/19 04:00 08/04/19 04:00 Laboratory Results - last 24 hr 08/03/19 10:34: POC Glucose 326 H* 08/03/19 11:48: POC Glucose 303 H* 08/03/19 16:25: POC Glucose 191 H 08/03/19 20:13: POC Glucose 262 H 08/04/19 05:25: WBC 8.9, RBC 3.91 L, Hgb 10.5 L, Hct 35.3 L, MCV 90.2, MCH 26.8 L, MCHC 29.7 L, RDW 14.3, Plt Count 257, MPV 7.7, Neut % (Auto) 75.7, Lymph % (Auto) 16.5, [place] % (Auto) 5.9, Eos % (Auto) 1.4, Baso % (Auto) 0.5, Neut # (Auto) 6.7, Lymph # (Auto) 1.5, [place] # (Auto) 0.5, Eos # (Auto) 0.1, Baso # (Auto) 0.1 08/04/19 05:25: Sodium 141, Potassium 4.5, Chloride 102, Carbon Dioxide 36 H, Anion Gap 7.5, BUN 25 H, Creatinine 1.03, Estimated Creat Clear 85, Estimated GFR 72, Est GFR ( Amer) 88, Glucose 171 H D, Calcium 8.1 L, Total Bilirubin 0.3, AST 19, ALT 16, Alkaline Phosphatase 133 H, Total Protein 7.1, Albumin 2.2 L D, Globulin 4.9 H, Albumin/Globulin Ratio 0.4 L 08/04/19 06:05: POC Glucose 163 H I & O for Last 24 hours: Intake & Output 08/01/19 08/02/19 08/03/19 08/04/19 11:59 11:59 11:59 11:59 Intake Total 1720 / 1720 1910 / 1910 Output Total 900 / 900 1670 / 1670 Balance 820 / 820 240 / 240 Weight 335 lb 2 oz 335 lb 2 oz Microbiology Reports for the Last 24 Hours: Microbiology 08/02/19 19:05 Leg,Left - Wound Gram Stain - Final 08/02/19 19:05 Leg,Left - Wound Wound Culture - Preliminary Gram Positive Cocci 08/02/19 19:05 Leg,Right - Wound Gram Stain - Final 08/02/19 19:05 Leg,Right - Wound Wound Culture - Preliminary Gram Positive Cocci Narrative: Alert. In chair, comfortable on nasal cannula. Abdomen soft. Heart rate regular. Lungs have better air movement. Legs continue to be unchanged from previous exam. Assessment and Plan (1) Uncontrolled diabetes mellitus type 2 without complications Current visit: Yes Status: Acute Category: Medical (2) Acute respiratory failure Current visit: Yes Status: Acute Qualifiers: Respiratory failure complication: hypercapnia Qualified Code(s): J96.02 - Acute respiratory failure with hypercapnia Category: Medical Code(s): J96.00 - Acute respiratory failure, unspecified whether with hypoxia or hypercapnia (3) Venous stasis ulcers of both lower extremities Current visit: Yes Status: Acute Category: Medical Code(s): I83.019 - Varicose veins of right lower extremity with ulcer of unspecified site; I83.029 - Varicose veins of left lower extremity with ulcer of unspecified site; L97.919 - Non-pressure chronic ulcer of unspecified part of right lower leg with unspecified severity; L97.929 - Non-pressure chronic ulcer of unspecified part of left lower leg with unspecified severity (4) Acidosis Problem details: Likely acute on chronic hypoxemic and hypercarbic respiratory failure. Blood gas on admission consistent with respiratory acidosis/hypercarbia. Improved after admission. Continue to follow on BiPAP Current visit: No Status: Acute Category: Medical Code(s): E87.2 - Acidosis (5) Altered mental status Current visit: No Status: Acute Qualifiers: Altered mental status type: delirium Qualified Code(s): R41.0 - Disorientation, unspecified Category: Medical Code(s): R41.82 - Altered mental status, unspecified (6) Cellulitis Current visit: No Status: Acute Qualifiers: Site of cellulitis: extremity Site of cellulitis of extremity: lower extremity Laterality: unspecified laterality Qualified Code(s): L03.119 - Cellulitis of unspecified part of limb Category: Medical Code(s): L03.90 - Cellulitis, unspecified (7) Morbid obesity with BMI of 45.0-49.9, adult Current visit: No Status: Acute Category: Medical Code(s): E66.01 - Morbid (severe) obesity due to excess calories; Z68.42 - Body mass index (BMI) 45.0- 49.9, adult (8) Respiratory failure Current visit: No Status: Acute Qualifiers: Chronicity: acute on chronic Respiratory failure complication: hypoxia and hypercapnia Qualified Code(s): J96.21 - Acute and chronic respiratory failure with hypoxia; J96.22 - Acute and chronic respiratory failure with hypercapnia Category: Medical Code(s): J96.90 - Respiratory failure, unspecified, unspecified whether with hypoxia or hypercapnia (9) HIV disease Current visit: No Status: Chronic Category: Medical Code(s): B20 - Human immunodeficiency virus [HIV] disease (10) Sepsis Current visit: Yes Status: Acute Category: Medical Code(s): A41.9 - Sepsis, unspecified organism - Assessment and plan all Dx Assessment and Plan for all problems:: Above conditions are improving. Continue current antibiotic therapy while we await culture results. PT evaluation pending. Continue skin care. Anticipate discharge tomorrow unless culture results indicate otherwise.
--- NOTE | 2019-08-05 08:04 | Discharge Summary ---
General - General Admission date:: 08/02/19 Discharge date: 08/05/19 HPI HPI: 64-year-old white male with multiple medical problems including poorly controlled diabetes, chronic pickwickian syndrome with chronic hypercapnia, use of CPAP at night, morbid obesity and chronic stasis dermatitis with cellulitis and chronic pain syndrome who has been progressively more ill over the past couple of weeks. He has been to his primary doctor at the [facility] a couple of times as well as to the [facility] ER apparently and "nothing has been done" in regards to antibiotic therapy, changing his medications or help with his worsening respiratory symptoms. He and his report that he is progressively short of air, aggressively has problems with increasing somnolence and cough. Has had fevers and in fact yesterday had a temperature over 100. Also has had increasing problems with leg swelling and redness of his legs with excoriations bilaterally. Presented to the emergency department where he was found to have tachycardia, fever and acute on chronic respiratory failure with hypercapnia and respiratory acidosis. Admitted to hospital for IV antibiotics, further diagnostic testing and enhanced respiratory toilet. Hospital Course Hospital Course: Patient was admitted, met sepsis criteria and was placed on vancomycin and Rocephin. Cultures from blood and sputum were nondiagnostic. Leg cultures, not serena henry, grew MRSA, which has been a chronic finding for patient. He improved nicely, mostly because he was continued on his regular medications and appropriately used his BiPAP machine. Over the next couple of days he improved, respiratory failure improved and this morning he is back to his baseline. We will discharge patient on mupirocin topical for his legs, Omnicef twice daily for his asthma/COPD exacerbation/respiratory issues and close follow-up in our offices. Objective Vital signs: Temp Pulse Resp BP Pulse Ox 98.0 F 69 21 126/60 97 08/05/19 04:00 08/05/19 06:13 08/05/19 04:00 08/05/19 04:00 08/05/19 06:13 Narrative: Patient is awake, alert, oriented x3. Up in chair, wearing nasal cannula oxygen. Morbid obesity limits accuracy of exam. Lungs have rhonchi in both bases. Heart rate regular. Leg edema and cellulitis is improving. Neurologic exam nonfocal Results Labs on day of discharge: Labs from last 24 hours 12/11/1908/04/19 08/04/19 06:02 20:34 16:40 POC Glucose 87 134 H 143 H Vancomycin Trough 08/04/19 08/04/19 08/04/19 11:07 08:30 06:05 POC Glucose 174 H 163 H Vancomycin Trough 24.6 H Preliminary micro results at discharge 08/02/19 18:41 Blood Culture - Preliminary Blood NO GROWTH AFTER 48 HOURS 08/02/19 18:41 Blood Culture - Preliminary Blood NO GROWTH AFTER 48 HOURS DS: Diagnosis - Discharge Diagnosis (1) Uncontrolled diabetes mellitus type 2 without complications Status: Chronic (2) Acute respiratory failure Status: Resolved (3) Venous stasis ulcers of both lower extremities Status: Chronic (4) Acidosis Status: Acute Problem details: Likely acute on chronic hypoxemic and hypercarbic respiratory failure. Blood gas on admission consistent with respiratory acidosis/hypercarbia. Improved after admission. Continue to follow on BiPAP (5) Altered mental status Status: Acute (6) Cellulitis Status: Acute (7) Morbid obesity with BMI of 45.0-49.9, adult Status: Acute (8) Respiratory failure Status: Acute (9) HIV disease Status: Chronic (10) Sepsis Status: Acute Discharge Plan - Patient Discharge Instructions ACTIVITY: Continue current activity DIET: continue same diet, diabetic diet Patient Instructions: How to Take Care of Your Feet If You Have Diabetes, DI for Chronic Obstructive Pulmonary Disease, DI for Acute Bronchitis, DI for Sepsis -- Adult, DI for Respiratory Failure, Respiratory Failure - Follow up Plan Follow up with: Sarita Long APRN [Nurse Practitioner] - 08/08/19 Disposition: Home, Self-Intermediate Medications: Home Medications Medication Instructions Recorded Confirmed Type Baclofen [Lioresal 10mg tablet] 10 mg PO TIDP PRN 11/13/18 08/03/19 History Bictegrav/Emtricit/Tenofov Ala 1 each PO DAILY 11/13/18 08/03/19 History [Biktarvy 50-200-25 mg Tablet] Finasteride [Proscar 5mg Tablet] 5 mg PO DAILY 11/13/18 08/03/19 History Insulin Regular, Human [Humulin R 143 unit SQ DAILY 11/13/18 08/03/19 History U-500] Lidocaine 1 each TP DAILYP PRN 11/13/18 08/02/19 History Losartan Potassium 100 mg PO DAILY 11/13/18 08/03/19 History Metoprolol Tartrate [Lopressor 100 150 mg PO BID 11/13/18 08/03/19 History mg Tablets] Trazodone HCl 50 mg PO HS PRN 11/13/18 08/03/19 History Alogliptin Benzoate [Alogliptin] 12.5 mg PO DAILY 08/02/19 08/03/19 History Aspirin [Aspir 81] 81 mg PO DAILY 08/02/19 08/03/19 History Calcium Carbonate 1,300 mg PO DAILY 08/02/19 08/03/19 History Gabapentin [Gabapentin 300mg Cap] 600 mg PO TID 08/02/19 08/03/19 History Insulin Glargine,Hum.rec.anlog 20 unit SQ DAILY 08/02/19 08/03/19 History [Insulin Glargine 100 Units/mL 3mL flexpen] Ipratropium/Albuterol Sulfate 1 puff IH QID 08/02/19 08/03/19 History [Combivent Respimat Inh] Cetirizine HCl [Zyrtec] 10 mg PO DAILY 08/03/19 08/03/19 History Duloxetine HCl 60 mg PO HS 08/03/19 08/03/19 History Furosemide [Furosemide 40MG tAB] 40 mg PO DAILY 08/03/19 08/03/19 History Hydrophilic Ointment [Hydrophilic] 113 gm TP BIDP PRN 08/03/19 08/03/19 History M-Salicy/Aloe/Menthol/Eucalypt 237 ml TP BIDP PRN 08/03/19 08/03/19 History [[place] Aloe Analgesic Liniment] [place]bert-3S/Dha/Epa/Fish Oil [Fish 1 each PO DAILY 08/03/19 08/03/19 History Oil 1,000 mg Softgel] Cefdinir [Omnicef 300mg Capsule] 300 mg PO BID #14 cap 08/05/19 Rx Mupirocin [Bactroban 2% Ointment 1 applicatio TP TID #1 tube 08/05/19 Rx 22gm tube] Prescriptions/Medication Reconciliation: New Mupirocin [Bactroban 2% Ointment 22gm tube] 1 applicatio TP TID #1 tube Cefdinir [Omnicef 300mg Capsule] 300 mg PO BID #14 cap Continued Metoprolol Tartrate [Lopressor 100 mg Tablets] 150 mg PO BID Losartan Potassium 100 mg PO DAILY Lidocaine 1 each TP DAILYP PRN PRN Reason: pain Finasteride [Proscar 5mg Tablet] 5 mg PO DAILY Bictegrav/Emtricit/Tenofov Ala [Biktarvy 50-200-25 mg Tablet] 1 each PO DAILY Baclofen [Lioresal 10mg tablet] 10 mg PO TIDP PRN PRN Reason: Muscle Spasm Trazodone HCl 50 mg PO HS PRN PRN Reason: Sleep Insulin Regular, Human [Humulin R U-500] 143 unit SQ DAILY Gabapentin [Gabapentin 300mg Cap] 600 mg PO TID Calcium Carbonate 1,300 mg PO DAILY Ipratropium/Albuterol Sulfate [Combivent Respimat Inh] 1 puff IH QID Insulin Glargine,Hum.rec.anlog [Insulin Glargine 100 Units/mL 3mL flexpen] 20 unit SQ DAILY Aspirin [Aspir 81] 81 mg PO DAILY M-Salicy/Aloe/Menthol/Eucalypt [[place] Analgesic Liniment] 237 ml TP BIDP PRN PRN Reason: pain Hydrophilic Ointment [Hydrophilic] 113 gm TP BIDP PRN PRN Reason: Dry Skin Duloxetine HCl 60 mg PO HS Furosemide [Furosemide 40MG tAB] 40 mg PO DAILY Cetirizine HCl [Zyrtec] 10 mg PO DAILY Alogliptin Benzoate [Alogliptin] 12.5 mg PO DAILY [place]bert-3S/Dha/Epa/Fish Oil [Fish Oil 1,000 mg Softgel] 1 each PO DAILY - Problem Reconciliation Problems Reviewed?: Yes
--- NOTE | 2019-08-08 16:46 | Electrocardiograph Report ---
APPROVED REPORT Exam: Resting ECG HR:112 bpm ECG Measurements Heart Rate 112 AXES FL 162 P 51 QRSd 136 QRS 2 QT 348 T14 QTc 475 <Conclusion> Sinus tachycardia with premature atrial complexes Right bundle branch block Abnormal ECG Electronically signed by : Sabas Johnston, 08/08/2019 16:45:39
== END 2019-08-05 09:25 | disposition home or self-care (01) | DRG 189 ==
LOC: ER 18:31 → 2ND 18:31 → OBSVTOIN 20:40 → 2ND 20:41
PROVIDERS: ADMIT Internal Medicine Adolescent Medicine; ATTEND Internal Medicine Adolescent Medicine
CPT/HCPCS: 36415; 71010; 71045; 80048; 80053; 80202; 81001; 82803; 82962; 83605; 84484; 85007; 85025; 87040; 87070; 87077; 87186; 87205; 87275; 87276; 93005; 94640; 94660; 94761; 96365; 96367; 96375; 97116; 97161; 99285; J3370

== ENCOUNTER 2020-01-05 12:41 | Inpatient (IN) | payer OTHER, MEDICARE, SELFPAY ==
[2020-01-05] VITALS (10 sets, daily range): BP systolic 107–138; BP diastolic 56–88; PULSE 79–89; RESP 16–20; TEMP 36.8–37.2; O2SAT 94–100; BMI 44.6; BMI 45.5
[2020-01-05 13:16] LABS: Basophils # 0.1 K/mm3 (0-0.2); Basophils % 0.8 % (0.1-2.0); Eosinophils # 0.1 K/mm3 (0.0-0.4); Eosinophils % 2.2 % (0.1-12.0); Hematocrit 25.8 % (42.0-52.0); Lymphocytes # 1.4 K/mm3 (0.7-4.5); Lymphocytes % 21.3 % (10-50); Mean Corpuscular HGB Conc 31.1 g/dL (31.8-35.4); Mean Corpuscular Hemoglobin 27.1 pg (27.0-31.2); Mean Corpuscular Volume 87.2 fl (80-94); Mean Platelet Volume 8.9 fl (7.4-10.4); Monocytes # 0.4 K/mm3 (0.1-1.0); Monocytes % 6.4 % (1.7-9.3); Neutrophils # 4.6 K/mm3 (1.8-7.8); Neutrophils % 69.3 % (37.0-80.0); Platelet Count 221 K/mm3 (142-424); Red Blood Count 2.96 M/mm3 (4.60-6.20); Red Cell Distribution Width 15.2 % (11.5-17.5); White Blood Count 6.7 K/mm3 (4.8-10.8)
[2020-01-05 13:25] LABS: Alanine Aminotransferase 19 U/L (12-78); Albumin Level 3.4 g/dl (3.5-5.0); Albumin/Globulin Ratio 0.9 (1.1-1.8); Alkaline Phosphatase 128 U/L (38-126); Anion Gap 5.1 mEq/L (5-15); Aspartate Amino Transferase 31 U/L (17-59); Bilirubin,Total 0.3 mg/dl (0.2-1.3); Blood Urea Nitrogen 22 mg/dl (9-20); Calcium 8.5 mg/dl (8.4-10.2); Carbon Dioxide 38 mmol/L (22.0-30.0); Chloride 97 mmol/L (98-107); Creatinine Clearance Estimated 78 mL/min (50-200); Estimated Glomerular Filt Rate 97 ml/min (>60); GFR (African American) 117 ML/MIN (>60); Globulin 3.6 g/dL (1.3-3.2); Glucose 212 mg/dl (74-100); Potassium 4.1 mmoL/L (3.5-5.1); Sodium 136 mmol/L (136-145)
[2020-01-05 13:45] LABS: INR 1.04 (0.9-1.1); Prothrombin Time 10.8 seconds (9.4-11.8)
--- NOTE | 2020-01-05 13:47 | CT_ITS ---
PROCEDURE: CT ABDOMEN PELVIS W CON CLINICAL INDICATION: black tarry stools, lower abd cramping COMPARISON: No exams were available for comparison TECHNIQUE: IV Contrast: 75ML OPTIRAY 350 Oral Contrast none Axial images obtained with sagittal and coronal reformats. All CT scans at the facility use one or more dose reduction, viz: automated exposure control, ma/kV adjustment per patient size (including targeted exams where dose is matched to indication, i.e. head), or iterative reconstruction technique. FINDINGS: LOWER THORAX: There are atelectatic/fibrotic changes in the lung bases and subpleural regions in both lower lung zones. Coronary artery calcifications are present. ABDOMEN & PELVIS: The liver, spleen, adrenal glands, pancreas, and kidneys have an unremarkable appearance. Gallstones are present. No evidence of appendicitis. There is given history of prior appendectomy. No evidence of diverticulitis. No intestinal obstruction or free air. There is some central calcification noted within the nonenlarged prostate gland. Moderate amount of edema is present in the patient's panniculus inferiorly on both sides. There are scattered small retroperitoneal lymph nodes. There is faint increased density to the left of the celiac artery nonspecific There are mild degenerative changes of the hips.. There is a lipoma along the left lower abdominal wall laterally measuring 12 by 5 cm deep to the external oblique musculature. IMPRESSION: 1. Cholelithiasis. 2. Mild atelectatic or fibrotic changes in the lung bases 3. Other nonacute findings as described above Dictated by: Jack Anthony MD 01/05/2020 15:37 Electronically signed by Jack Anthony MD in [place] 01/05/2020 15:37
--- NOTE | 2020-01-05 14:30 | HMH.EDGIBL ---
ED Disposition Clinical Impression: Gastrointestinal bleeding, lower Disposition: Admitted as Observation Condition on Discharge: Good Instructions: DI for Gastrointestinal Bleeding Additional Instructions: Spoke to Dr. Patricio for admission for this patient Referrals: Bruce Faith [Primary Care Provider] - - Critical Care Critical Care Time: No Attestation: On 01/05/20, the high probability of a clinically significant, sudden or life threatening deterioration of the following system(s) required my full and direct attention, intervention and personal management. The time I documented below is in addition to time spent performing reported procedures but includes the following listed in this critical care notation. Medical Decision Making - Medical Records Medical records reviewed: Yes: I reviewed the patient's medical records. - Valentin Inquiry Pt receiving controlled substance: No Vital Signs: 01/05/20 12:57 01/05/20 14:05 01/05/20 15:39 Temperature 98.2 F Temperature Source Oral Pulse Rate [Right Radial] 89 80 87 Respiratory Rate 18 18 16 Blood Pressure [Right Arm] 126/71 114/57 L 120/62 Blood Pressure Mean [Right Arm] 89 76 81 Blood Pressure Source [Right Arm] Automatic Cuff Automatic Cuff Automatic Cuff Blood Pressure Position [Right Arm] Sitting Sitting Sitting 02 Sat by Pulse Oximetry 99 97 98 Oxygen Delivery Method Nasal Cannula Nasal Cannula Room Air Oxygen Flow Rate (LPM) 2.5 2 - Lab Data Lab results reviewed: Yes: I reviewed the patient's lab results. Lab Results 01/05/20 13:05: WBC 6.7, RBC 2.96 L, Hgb 8.0 L, Hct 25.8 L, MCV 87.2, MCH 27.1, MCHC 31.1 L, RDW 15.2, Plt Count 221, MPV 8.9, Neut % (Auto) 69.3, Lymph % (Auto) 21.3, Ponce % (Auto) 6.4, Eos % (Auto) 2.2, Baso % (Auto) 0.8, Neut # (Auto) 4.6, Lymph # (Auto) 1.4, Ponce # (Auto) 0.4, Eos # (Auto) 0.1, Baso # (Auto) 0.1 01/05/20 13:05: Sodium 136, Potassium 4.1, Chloride 97 L, Carbon Dioxide 38 H, Anion Gap 5.1, BUN 22 H, Creatinine 0.80, Estimated Creat Clear 78, Estimated GFR 97, Est GFR ( Amer) 117, Glucose 212 H, Calcium 8.5, Total Bilirubin 0.3, AST 31, ALT 19, Alkaline Phosphatase 128 H, Total Protein 7.0, Albumin 3.4 L, Globulin 3.6 H, Albumin/Globulin Ratio 0.9 L 01/05/20 13:05: Blood Type O Negative, Antibody Screen Negative 01/05/20 13:05: PT 10.8, INR 1.04 Result diagrams: 01/05/20 13:05 01/05/20 13:05 Orders (Tests/Meds): ED MEDICATIONS Discontinued Medications Generic Name Dose Route Start Last Admin Trade Name Freq PRN Reason Stop Dose Admin Ioversol 75 ml 01/05/20 14:56 01/05/20 14:56 Rad-Optiray 350 100ml Vial IV 01/05/20 14:57 75 ml ONCE ONE Administration Protocol Sodium Chloride 10 ml 01/05/20 14:56 01/05/20 14:56 Rad-Saline Flush 10ml Syringe IV 01/05/20 14:57 10 ml ONCE ONE Administration ORDERS Category Date Time Status Hemoglobin and Hematocrit Stat Lab 01/05/20 16:27 Received - CT Data CT Scan: Abdomen, Pelvis Time Received: 16:32 Preliminary Findings: Normal/NAD (No acute intra-abdominal findings except for cholelithiasis without cholecystitis situs) Medical Decision Narrative: Spoke to Dr. Jenkins to consult on this patient. Also spoke to Dr. Patricio for admission and he did check with case management to see if they would be okay to admit the patient here given [facility]. GI Bleed HPI - General Chief complaint: GI Bleed Stated complaint: Rectal bleeding Time Seen by Provider: 01/05/20 14:30 Mode of Arrival: Wheelchair Source of Information: Patient Limitations: No Limitations Description of Symptoms (Recalled from ER Triage Doc. by RN): Pt reports black tarry stools that began sunday of last week. Pt reports he has been taking celebrex he stopped it sunday of last week. Pt reports stools are foul smelling and pasty in nature. Pt reports lower abd cramping with BM also. Pt skin is pale in color. - History of Pres
--- NOTE | 2020-01-05 15:39 | PC.NURSE ---
ER MD states waiting on CT scan result and then he will consult surgery on pt and then contact service MD to get pt admitted
--- NOTE | 2020-01-05 15:50 | PC.NURSE ---
Dr. Jenkins pagehemanth
--- NOTE | 2020-01-05 15:51 | PC.NURSE ---
speaking with Dr. Jenkins
--- NOTE | 2020-01-05 16:03 | PC.NURSE ---
contacted Dr. Ortiz office per ER MD request, staff stated he is not in the office today, stated to contact Dr. Patricio at the [place] office-spoke with Nuria
--- NOTE | 2020-01-05 16:12 | PC.NURSE ---
Dr. Patricio stated that [facility] would [facility], informed him that pt does not want to go to the [facility] Patricio states he would still like us to contact the [facility] first. Notified SAMANTHA [facility]
--- NOTE | 2020-01-05 16:20 | PC.NURSE ---
speaking with Dr. Patricio
[2020-01-05 16:33] LABS: Hematocrit 26.7 % (42.0-52.0); Hemoglobin 8.3 g/dL (14.1-18.0)
--- NOTE | 2020-01-05 17:13 | PC.NURSE ---
attempted to call report, Vanessa stated she is in another pts room and will call back tru.
--- NOTE | 2020-01-05 17:27 | PC.NURSE ---
report called to VIVIENNE Mendez on second floor, stated she will send staff down to get pt.
--- NOTE | 2020-01-05 19:14 | PC.NURSE ---
report given to lorelei
[2020-01-05 20:10] LABS: Hematocrit 24.6 % (42.0-52.0)
[2020-01-05 20:19] LABS: Hemoglobin 7.7 g/dL (14.1-18.0)
[2020-01-05 20:53] LABS: POC Glucose,Bedside 248 (70-110)
--- NOTE | 2020-01-05 21:34 | HMH.HP ---
*Admission Date: 01/05/20 *Chief complaint: fatigue, black stools. *History of present illness: Mr. Love is a 64-year-old male who presented to the ER this morning due to worsening abdominal cramps and fatigue. States he began to notice possible blood in his stool with the presence of black stools beginning on Sunday. He was also having some abdominal pain and cramping beginning at that time. Of note, began Celebrex for chronic pain a few months ago and has been taking it daily. Is also on a daily aspirin, no other blood thinners per his report. He states that these dark and tarry stools continued until he presented here in the emergency department. Patient denies any other symptoms except for some fatigue. Patient states that he does go to the [place] but he prefers not to go. Patient denies any nausea or vomiting. Patient denies any cough or shortness of breath. On initial work-up, found to be anemic at mid eights, baseline above 12 for hemoglobin. No other active bleeding per his report. No bright red blood per rectum. Denies hematemesis or coffee-ground emesis. Surgery consulted from the ER, recommended patient be n.p.o. at midnight with planned scope in the morning. [facility] History I have reviewed the patient's past medical history: Yes Medical History: Reports:: Congestive Heart Failure, Coronary Artery Disease, Diabetes Mellitus Type 2, Hyperlipidemia, Hypertension, MRSA, Myocardial Infarction Denies:: Cancer, Diabetes Mellitus Type 1 *Have you ever received a pneumonia vaccine?: Yes *Have you received a flu vaccine this season?: Yes Other Medical History: Reports: Arthritis, Chemotherapy, Fibromyalgia, HIV Laterality Cases: Bilateral: Other Other Surgeries: Yes: Colonoscopy, Hernia Repair, Sinus Surgery, Other (Left Arm) Amputation: No Fractures: Yes - *Social History Educational Level: Completed College Smoking Status: Never smoker Alcohol Intake: never *Occupational Status:: retired Housing: house Household Members: spouse *Travel in the last 8 weeks: None Family Hx:: Cancer, Diabetes, Heart Attack, Hypertension, Stroke, Mental illness Review of Systems - Review of Systems Review of systems:: pertinent systems reviewed and negative unless documented below (14pt ROS performed, pertinent positives and negatives as stated in HPI) Meds Home Medications Medication Instructions Recorded Confirmed Type Baclofen [Lioresal 10mg tablet] 10 mg PO TIDP PRN 11/13/18 01/05/20 History Bictegrav/Emtricit/Tenofov Ala 1 each PO DAILY 11/13/18 01/05/20 History [Biktarvy 50-200-25 mg Tablet] Finasteride [Proscar 5mg Tablet] 5 mg PO DAILY 11/13/18 01/05/20 History Insulin Regular, Human [Humulin R 143 unit SQ BID 11/13/18 01/05/20 History U-500] Lidocaine 1 each TP DAILYP PRN 11/13/18 01/05/20 History Losartan Potassium 100 mg PO DAILY 11/13/18 01/05/20 History Metoprolol Tartrate [Lopressor 100 150 mg PO BID 11/13/18 01/05/20 History mg Tablets] Trazodone HCl 50 mg PO HS PRN 11/13/18 01/05/20 History Alogliptin Benzoate [Alogliptin] 12.5 mg PO DAILY 08/02/19 01/05/20 History Aspirin [Aspir 81] 81 mg PO DAILY 08/02/19 01/05/20 History Gabapentin [Gabapentin 300mg Cap] 600 mg PO TID 08/02/19 01/05/20 History Cetirizine HCl [Zyrtec] 10 mg PO BID 08/03/19 01/05/20 History Hydrophilic Ointment [Hydrophilic] 113 gm TP BIDP PRN 08/03/19 01/05/20 History M-Salicy/Aloe/Menthol/Eucalypt 237 ml TP BIDP PRN 08/03/19 01/05/20 History [[place] Aloe Analgesic Liniment] [place]-3S/Dha/Epa/Fish Oil [Fish 1 each PO DAILY 08/03/19 01/05/20 History Oil 1,000 mg Softgel] Mupirocin [Bactroban 2% Ointment 1 applicatio TP NEEDED PRN 01/05/20 01/05/20 History 22gm tube] Allergies Allergy/AdvReac Type Severity Reaction Status Date / Time SANDRA Inhibitors Allergy Unknown Unknown Verified 11/13/18 07:47 allergy reaction clofibrate Allergy Unknown Unknown Verified 11/13/18 07:47 allergy reaction enalapril All
[2020-01-06] VITALS (28 sets, daily range): BP systolic 100–144; BP diastolic 36–95; PULSE 71–89; RESP 16–20; TEMP 36.5–37; O2SAT 90–99; BMI 45.6
[2020-01-06 03:34] LABS: Hematocrit 25.9 % (42.0-52.0); Hemoglobin 8.2 g/dL (14.1-18.0)
--- NOTE | 2020-01-06 05:59 | PC.NURSE ---
A&OX3. ME[employer]INE[employer] PRODUCTS EQUAL BILAT. LUNGS NOTED CLEAR WITH BASES DIMINISHED, 3LNC TOLERATED WELL. PT REPORTS USING 3LNC IS BASELINE. PULSES +2, CAP REFILL <3SEC. ABDOMEN NOTED NONDISTENDED, HYPOACTIVE BOWEL SOUNDS, SOFT AND NONTENDER PER PALPATION. DARK BROWN STOOL NOTED THIS SHIFT. EPISODE OF STOOL IN FLOOR AND TOILET PT STATED I ATTEMPTED TO MAKE IT TO THE TOILET IN TIME BUT IT JUST CAME OUT. STOOL IN TOILET WAS NOT WITNESSED PER THIS RN BUT THE STOOL IN THE FLOOR WAS OBSERVED AND NOTED DARK, BROWN LOOSE STOOL. PT REPORTS BACK PAIN/SPASMS, PT STATES I HAVE A MISPLACED DISC IN MY BACK THAT CAUSES ME PAIN ALL THE TIME. ADMINISTERED PRN PAIN MEDICATIONS PER ON REASSESSMENT PT DENIES NEED FOR ADDITIONAL PAIN MEDICINE. AT TIMES THE REASSESSMENT PAIN LEVEL HAD SLIGHTLY DECREASED OR STAYED THE SAME AND PT WAS REMINDED OF ESTABLISHED PAIN GOAL THOSE TIMES, AND PT STILL REFUSED ADDITIONAL PAIN MEDICATION. 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 BLE NOTED WITH REDNESS, EDEMA +1 AND SCATTERED SCABS. PT AMBULATES WITH ASSISTANCE X1 AND USE OF STRAIGHT CANE, TOLERATES WELL. PT RESTED SITTING UP IN CHAIR, ATTEMPTED TO REST LYING IN BED, PT DID NOT TOLERATE WELL, R/T WORSENING BACK PAIN WHILE LYING IN BED. TRANSFUSED 1 PRBC UNIT, TOLERATED TRANSFUSION WELL, ON 1 HR POST H&H, HGB NOTED 8.2. VSS. WILL CONTINUE TO MONITOR.
[2020-01-06 06:22] LABS: POC Glucose,Bedside 244 (70-110)
--- NOTE | 2020-01-06 06:44 | PC.NURSE ---
ENCOURAGED PT TO TURN Q2H THIS SHIFT, PT IS INDEPENDENT WITH BED/CHAIR MOBILITY.
[2020-01-06 06:53] LABS: Basophils # 0.1 K/mm3 (0-0.2); Basophils % 0.9 % (0.1-2.0); Eosinophils # 0.2 K/mm3 (0.0-0.4); Eosinophils % 2.6 % (0.1-12.0); Hematocrit 26.6 % (42.0-52.0); Lymphocytes # 1.6 K/mm3 (0.7-4.5); Lymphocytes % 25.2 % (10-50); Mean Corpuscular Hemoglobin 26.6 pg (27.0-31.2); Mean Corpuscular Volume 88.7 fl (80-94); Mean Platelet Volume 8.2 fl (7.4-10.4); Monocytes # 0.4 K/mm3 (0.1-1.0); Neutrophils # 4.2 K/mm3 (1.8-7.8); Neutrophils % 65.3 % (37.0-80.0); Platelet Count 225 K/mm3 (142-424); Red Cell Distribution Width 15.3 % (11.5-17.5); White Blood Count 6.5 K/mm3 (4.8-10.8)
--- NOTE | 2020-01-06 07:16 | HMH.GSCON ---
*Admission Date: 01/05/20 *Reason for consult:: GI blood loss, anemia *History of present illness: The following is taken from admission medicine history and physical: Mr. Love is a 64-year-old male who presented to the ER this morning due to worsening abdominal cramps and fatigue. States he began to notice possible blood in his stool with the presence of black stools beginning on Sunday. He was also having some abdominal pain and cramping beginning at that time. Of note, began Celebrex for chronic pain a few months ago and has been taking it daily. Is also on a daily aspirin, no other blood thinners per his report. He states that these dark and tarry stools continued until he presented here in the emergency department. Patient denies any other symptoms except for some fatigue. Patient states that he does go to the [place] but he prefers not to go. Patient denies any nausea or vomiting. Patient denies any cough or shortness of breath. On initial work-up, found to be anemic at mid eights, baseline above 12 for hemoglobin. No other active bleeding per his report. No bright red blood per rectum. Denies hematemesis or coffee-ground emesis. Review of Systems - Review of Systems Review of systems:: pertinent systems reviewed and negative unless documented below [facility] History I have reviewed the patient's past medical history: Yes Medical History: Reports:: Congestive Heart Failure, Coronary Artery Disease, Diabetes Mellitus Type 2, Hyperlipidemia, Hypertension, MRSA, Myocardial Infarction Denies:: Cancer, Diabetes Mellitus Type 1 *Have you ever received a pneumonia vaccine?: Yes *Have you received a flu vaccine this season?: Yes Other Medical History: Reports: Arthritis, Chemotherapy, Fibromyalgia, HIV Laterality Cases: Bilateral: Other Other Surgeries: Yes: Colonoscopy, Hernia Repair, Sinus Surgery, Other (Left Arm) Amputation: No Fractures: Yes - *Social History Educational Level: Completed College Smoking Status: Never smoker Alcohol Intake: never *Occupational Status:: retired Housing: house Household Members: spouse *Travel in the last 8 weeks: None Family Hx:: Cancer, Diabetes, Heart Attack, Hypertension, Stroke, Mental illness Meds Home Medications Medication Instructions Recorded Confirmed Type Baclofen [Lioresal 10mg tablet] 10 mg PO TIDP PRN 11/13/18 01/05/20 History Bictegrav/Emtricit/Tenofov Ala 1 each PO DAILY 11/13/18 01/05/20 History [Biktarvy 50-200-25 mg Tablet] Finasteride [Proscar 5mg Tablet] 5 mg PO DAILY 11/13/18 01/05/20 History Insulin Regular, Human [Humulin R 143 unit SQ BID 11/13/18 01/05/20 History U-500] Lidocaine 1 each TP DAILYP PRN 11/13/18 01/05/20 History Losartan Potassium 100 mg PO DAILY 11/13/18 01/05/20 History Metoprolol Tartrate [Lopressor 100 150 mg PO BID 11/13/18 01/05/20 History mg Tablets] Trazodone HCl 50 mg PO HS PRN 11/13/18 01/05/20 History Alogliptin Benzoate [Alogliptin] 12.5 mg PO DAILY 08/02/19 01/05/20 History Aspirin [Aspir 81] 81 mg PO DAILY 08/02/19 01/05/20 History Gabapentin [Gabapentin 300mg Cap] 600 mg PO TID 08/02/19 01/05/20 History Cetirizine HCl [Zyrtec] 10 mg PO BID 08/03/19 01/05/20 History Hydrophilic Ointment [Hydrophilic] 113 gm TP BIDP PRN 08/03/19 01/05/20 History M-Salicy/Aloe/Menthol/Eucalypt 237 ml TP BIDP PRN 08/03/19 01/05/20 History [[place] Aloe Analgesic Liniment] [place]-3S/Dha/Epa/Fish Oil [Fish 1 each PO DAILY 08/03/19 01/05/20 History Oil 1,000 mg Softgel] Mupirocin [Bactroban 2% Ointment 1 applicatio TP NEEDED PRN 01/05/20 01/05/20 History 22gm tube] Allergies Allergy/AdvReac Type Severity Reaction Status Date / Time SANDRA Inhibitors Allergy Unknown Unknown Verified 11/13/18 07:47 allergy reaction clofibrate Allergy Unknown Unknown Verified 11/13/18 07:47 allergy reaction enalapril Allergy Unknown Unknown Verified 11/13/18 07:47 allergy reaction erythromycin base Allergy Unknown Un
--- NOTE | 2020-01-06 07:34 | HMH.PHAVTE ---
[facility] Pharmacy VTE Monitoring - Patient Demographics Admission date: 01/05/20 Report Date: 01/06/20 Time: 07:34 Allergies/Adverse Reactions: Patient Allergies SANDRA Inhibitors Allergy (Unknown, Verified 11/13/18 07:47) Unknown allergy reaction clofibrate Allergy (Unknown, Verified 11/13/18 07:47) Unknown allergy reaction enalapril Allergy (Unknown, Verified 11/13/18 07:47) Unknown allergy reaction erythromycin base Allergy (Unknown, Verified 11/13/18 07:47) Unknown allergy reaction gemfibrozil Allergy (Unknown, Verified 11/13/18 07:47) Unknown allergy reaction hepatitis A virus vaccine Allergy (Unknown, Verified 11/13/18 07:47) Unknown allergy reaction hydralazine Allergy (Unknown, Verified 11/13/18 07:47) Unknown allergy reaction Macrolide Antibiotics Allergy (Unknown, Verified 11/13/18 07:47) Unknown allergy reaction pravastatin [From Pravachol] Allergy (Unknown, Verified 11/13/18 07:47) Unknown allergy reaction Sendwij-Pfg-Elv Reductase Inhibitor Allergy (Unknown, Verified 11/13/18 07:47) Unknown allergy reaction Height: 1.8 m Weight: 148.013 kg Patient Problems: Current Active Problems Gastrointestinal bleeding, lower (Acute) Acute blood loss anemia (Acute) GI bleed due to NSAIDs (Acute) - VTE Risk Labs: VTE Related Lab Results Hgb 8.0 g/dL (14.1-18.0) L 01/06/20 06:21 Hct 26.6 % (42.0-52.0) L 01/06/20 06:21 Plt Count 225 K/mm3 (142-424) 01/06/20 06:21 PT 10.8 seconds (9.4-11.8) 01/05/20 13:05 INR 1.04 (0.9-1.1) 01/05/20 13:05 BUN 22 mg/dl (9-20) H 01/05/20 13:05 Creatinine 0.80 mg/dl (0.66-1.25) 01/05/20 13:05 Estimated Creat Clear 78 mL/min (50-200) 01/05/20 13:05 VTE Score: 7 VTE Risk Level: Moderate Risk - Prophylaxis VTE Prophylaxis Ordered?: Yes Types of VTE Prophylaxis: TEDS Knee High Location of Applied Device: Bilateral Lower Extremeties - VTE Diagnosis Confirmed Treatment or plan recommended: Continue Current Treatment
--- NOTE | 2020-01-06 08:39 | HMH.ACPN2 ---
Internal Medicine - PN: Subj *Date: 01/06/20 *Time: 08:39 Interval history: Patient did well overnight. Hemoglobin dropped slightly more necessitating 1 unit of packed red blood cells to be transfused. Patient's hemodynamics are stable, no hypotension, tachycardia, worsening dyspnea. Surgery seen the patient with plan for EGD today. N.p.o. this morning. Denies chest pain, syncope, nausea, vomiting, diarrhea. Having stools overnight that are described as dark brown per nursing. No carlos bright red blood per rectum. Exam Vital signs and Labs for Last 24 Hours: Temp Pulse Resp BP Pulse Ox 98.6 F 76 18 140/57 L 97 01/06/20 07:35 01/06/20 07:35 01/06/20 07:35 01/06/20 07:35 01/06/20 08:00 Laboratory Results - last 24 hr 01/05/20 13:05: WBC 6.7, RBC 2.96 L, Hgb 8.0 L, Hct 25.8 L, MCV 87.2, MCH 27.1, MCHC 31.1 L, RDW 15.2, Plt Count 221, MPV 8.9, Neut % (Auto) 69.3, Lymph % (Auto) 21.3, [place] % (Auto) 6.4, Eos % (Auto) 2.2, Baso % (Auto) 0.8, Neut # (Auto) 4.6, Lymph # (Auto) 1.4, Lyman # (Auto) 0.4, Eos # (Auto) 0.1, Baso # (Auto) 0.1 01/05/20 13:05: Sodium 136, Potassium 4.1, Chloride 97 L, Carbon Dioxide 38 H, Anion Gap 5.1, BUN 22 H, Creatinine 0.80, Estimated Creat Clear 78, Estimated GFR 97, Est GFR ( Amer) 117, Glucose 212 H, Calcium 8.5, Total Bilirubin 0.3, AST 31, ALT 19, Alkaline Phosphatase 128 H, Total Protein 7.0, Albumin 3.4 L, Globulin 3.6 H, Albumin/Globulin Ratio 0.9 L 01/05/20 13:05: Blood Type O Negative, Antibody Screen Negative, Crossmatch (AHG) See Detail 01/05/20 13:05: PT 10.8, INR 1.04 01/05/20 16:27: Hgb 8.3 L, Hct 26.7 L 01/05/20 19:45: Hgb 7.7 L*, Hct 24.6 L 01/05/20 20:45: POC Glucose 248 H 01/05/20 22:22: Blood Type Confirm O Negative 01/06/20 03:24: Hgb 8.2 L, Hct 25.9 L 01/06/20 05:14: POC Glucose 244 H 01/06/20 06:21: WBC 6.5, RBC 3.00 L, Hgb 8.0 L, Hct 26.6 L, MCV 88.7, MCH 26.6 L, MCHC 30.0 L, RDW 15.3, Plt Count 225, MPV 8.2, Neut % (Auto) 65.3, Lymph % (Auto) 25.2, Lyman % (Auto) 6.0, Eos % (Auto) 2.6, Baso % (Auto) 0.9, Neut # (Auto) 4.2, Lymph # (Auto) 1.6, Lyman # (Auto) 0.4, Eos # (Auto) 0.2, Baso # (Auto) 0.1 I & O for Last 24 hours: Intake & Output 01/03/20 01/04/20 01/05/20 01/06/20 23:59 23:59 23:59 23:59 Intake Total 360 / 360 1042 / 1042 Output Total 526 / 526 Balance 360 / -165 516 / 516 Weight 148.013 kg 148.013 kg Narrative: - Constitutional no acute distress, morbidly obese - *Routine HEENT Exam Head: Present: normocephalic Eye: Present: EOMI, PERRL ENT: Present: mucous membranes moist - *Routine Respiratory Exam Present: CTA bilaterally. Absent: rhonchi, wheezes - *Routine Cardiovascular Exam Present: RRR - *Routine Abdominal Exam Present: soft, normoactive bowel sounds, tenderness (worse in upper and rigth abdomen) - *Routine Extremities Exam Present: edema. Absent: cyanosis, clubbing Comments: see Skin Exam - *Routine Skin Exam Present: pallor, warm Comments: dense LE edema with stasis dermatitis and ulcerations in various stages of healing. - *Routine Neurological Exam Present: alert, oriented X3 Assessment and Plan (1) GI bleed due to NSAIDs Current visit: Yes Status: Acute Category: Medical Code(s): K92.2 - Gastrointestinal hemorrhage, unspecified; T39.395A - Adverse effect of other nonsteroidal anti-inflammatory drugs [NSAID], initial encounter (2) Acute blood loss anemia Current visit: Yes Status: Acute Category: Medical Code(s): D62 - Acute posthemorrhagic anemia (3) Diabetes mellitus, insulin dependent (IDDM), controlled Current visit: No Status: Chronic Category: Medical Code(s): E11.9 - Type 2 diabetes mellitus without complications; Z79.4 - senior living (current) use of insulin (4) Morbid obesity with BMI of 45.0-49.9, adult Current visit: No Status: Chronic Category: Medical Code(s): E66.01 - Morbid (severe) obesity due to excess calories; Z68.42 - Body mass index (BMI) 45.
--- NOTE | 2020-01-06 09:02 | P.PN_ITS ---
[facility] Anesthesia Checklist - Patient Identification Patient Identification: Arm Band, Verbal (Name & ) - Structural Data Admitted From: Inpatient Planned Operative Procedure/s: EGD Consent for Planned Operative Procedure(s) Verified: Yes Verified Documents: Surgical Consent, History and Physical - NPO Status Verified Time NPO: 00:00 - Chart Verification Results Verified: CBC, BMP - Additional verifications Anesthesia Reactions: No - Airway Assessment C-Spine Mobility Assessed: Yes TMJ Mobility Assessed: Yes Dentition: Edentulous - Neurological Assessment Level of Consciousness: Awake, Alert, Appropriate, Follows Commands Hx Seizures: No Numbness or tingling in extremities: No - Anesthesia Plan Anesthesia Risk discussed: Yes Anesthesia Plan: Verified ASA Class: IV Anesthesia Type: MAC [facility] History I have reviewed the patient's past medical history: Yes Medical History: Reports:: Congestive Heart Failure, Coronary Artery Disease, Diabetes Mellitus Type 2, Hyperlipidemia, Hypertension, MRSA, Myocardial Infarction Denies:: Cancer, Diabetes Mellitus Type 1 *Have you ever received a pneumonia vaccine?: Yes *Have you received a flu vaccine this season?: Yes Other Medical History: Reports: Arthritis, Chemotherapy, Fibromyalgia, HIV Comment:: morbid obesity Anesthesia experience/problems:: none Laterality Cases: Bilateral: Other Other Surgeries: Yes: Colonoscopy, Hernia Repair, Sinus Surgery, Other (Left Arm) Amputation: No Fractures: Yes - *Social History Educational Level: Completed College Smoking Status: Never smoker Alcohol Intake: never Substance Use Type: denies use *Occupational Status:: retired Housing: house Household Members: spouse *Travel in the last 8 weeks: None Family Hx:: Cancer, Diabetes, Heart Attack, Hypertension, Stroke, Mental illness
--- NOTE | 2020-01-06 09:36 | HMH.SCOPE ---
- Procedure: Date: 01/06/20 Procedure Performed:: Esophagogastroduodenoscopy with biopsies Indications:: Mr. Love is a 64-year-old male who presented to the ER this morning due to worsening abdominal cramps and fatigue. States he began to notice possible blood in his stool with the presence of black stools beginning on Sunday. He was also having some abdominal pain and cramping beginning at that time. Of note, began Celebrex for chronic pain a few months ago and has been taking it daily. Is also on a daily aspirin, no other blood thinners per his report. He states that these dark and tarry stools continued until he presented here in the emergency department. Surgical consultation was obtained for upper endoscopy Performing Provider:: Bc Jenkins MD Referring Provider:: Roberto Patricio MD Sedation:: Propofol Procedure:: Patient was taken to endoscopy procedure room. He was positioned in a lateral decubitus position. Adequate intravenous sedation was achieved with anesthesia titration of propofol. Olympus endoscope was inserted via the oropharynx and advanced through the esophagus which appeared unremarkable. Stomach was cannulated and insufflated. Retroflexion was performed which revealed no evidence of any appreciable hiatal hernia. He did have some minimal fundic gland appearing polyps. In the antrum there was diffuse erosive gastritis with several exudative erosions with some minimal heme material. This would be consistent with NSAID induced gastritis. There was no stigmata of recent active bleeding. Gastric biopsy was obtained to evaluate for H. pylori. Pylorus was traversed and the endoscope was advanced to the distal duodenum which was unremarkable. There was some minimal prominent mucosa within the duodenal bulb and this was biopsied. Stomach was desufflated and the endoscope was withdrawn. Findings:: Antral erosive gastritis Recommendations:: Given clinical presentation and findings of antral erosive gastritis this is likely etiology of melena and GI blood loss. Treat expectantly with proton pump inhibitors at this time. I will go ahead and start the patient on a limited diet. Complications:: None immediately apparent Estimated blood obtained (mL): 2
--- NOTE | 2020-01-06 11:49 | HMH.PHAINT ---
MEDICATION RECONCILIATION COMPLETED ON PATIENT BY INTERVIEWING PATIENT AND EXAMINING PATIENT'S RX BOTTLES. -MONSERRAT FLANAGAN, NICOLED
[2020-01-06 11:51] LABS: POC Glucose,Bedside 328 (70-110)
--- NOTE | 2020-01-06 14:08 | PC.NURSE ---
PT IS SITTING UP IN THE CHAIR. NO COMPLAINTS OF DISCOMFORT. PT TOLERATED EGD WELL. AMBULATED TO THE BATHROOM WITH 1 ASSIST. EATING AND DRINKING WELL. ABRASIONS NOTED TO BLE. LUNG SOUNDS DIMINISHED. BOWEL SOUNDS NORMAL. PT HAS HAD 1 LOOSE STOOL THIS SHIFT THAT HE DESCRIBED LARGE/LOOSE/BROWN. O2 SATURATION HAS MAINTAINED IN THE MID 90'S ON 3 L NC. VSS. WILL CONTINUE TO MONITOR.
[2020-01-06 16:28] LABS: Hematocrit 26.2 % (42.0-52.0); Hemoglobin 8.6 g/dL (14.1-18.0)
--- NOTE | 2020-01-06 16:53 | HMH.DCSUM ---
General - General Admission date:: 01/05/20 Discharge date: 01/07/20 HPI HPI: Mr. Love is a 64-year-old male who presented to the ER this morning due to worsening abdominal cramps and fatigue. States he began to notice possible blood in his stool with the presence of black stools beginning on Sunday. He was also having some abdominal pain and cramping beginning at that time. Of note, began Celebrex for chronic pain a few months ago and has been taking it daily. Is also on a daily aspirin, no other blood thinners per his report. He states that these dark and tarry stools continued until he presented here in the emergency department. Patient denies any other symptoms except for some fatigue. Patient states that he does go to the [place] but he prefers not to go. Patient denies any nausea or vomiting. Patient denies any cough or shortness of breath. On initial work-up, found to be anemic at mid eights, baseline above 12 for hemoglobin. No other active bleeding per his report. No bright red blood per rectum. Denies hematemesis or coffee-ground emesis. Surgery consulted from the ER, recommended patient be n.p.o. at midnight with planned scope in the morning. Hospital Course Hospital Course: Patient admitted for concern for GI bleed with the finding/report of melenic stools prior to presentation. Hemoglobin had dropped from baseline by 4 points. Transfuse 1 unit during admission. Taken for EGD with finding of diffuse gastritis. Determined to have NSAID induced gastritis with upper GI bleed. No active ulceration or bleeding at time of procedure. Patient's hemoglobin responded appropriately to transfusion and has been stable during admission. Improvement in symptoms during admission. Initiated on PPI. Plan for close follow-up with primary care, repeat hemoglobin and discuss resuming daily aspirin at that time. Patient denies nausea, vomiting, chest pain, melenic stools, worsening shortness of breath. Medically stable for discharge home. Resume home medications for chronic conditions. Objective Vital signs: Temp Pulse Resp BP Pulse Ox 98.1 F 71 16 118/45 L 97 01/06/20 14:00 01/06/20 14:00 01/06/20 14:00 01/06/20 14:00 01/06/20 14:00 Narrative: - Constitutional no acute distress, morbidly obese - *Routine HEENT Exam Head: Present: normocephalic Eye: Present: EOMI, PERRL ENT: Present: mucous membranes moist - *Routine Respiratory Exam Present: CTA bilaterally. Absent: rhonchi, wheezes - *Routine Cardiovascular Exam Present: RRR - *Routine Abdominal Exam Present: soft, normoactive bowel sounds, non-tender - *Routine Extremities Exam Present: edema. Absent: cyanosis, clubbing Comments: see Skin Exam - *Routine Skin Exam Present: pallor, warm Comments: dense LE edema with stasis dermatitis and ulcerations in various stages of healing. - *Routine Neurological Exam Present: alert, oriented X3 Results Labs on day of discharge: Labs from last 24 hours 01/06/20 01/06/20 01/06/20 11:40 06:21 05:14 WBC 6.5 RBC 3.00 L Hgb 8.0 L Hct 26.6 L MCV 88.7 MCH 26.6 L MCHC 30.0 L RDW 15.3 Plt Count 225 MPV 8.2 Neut % (Auto) 65.3 Lymph % (Auto) 25.2 [place] % (Auto) 6.0 Eos % (Auto) 2.6 Baso % (Auto) 0.9 Neut # (Auto) 4.2 Lymph # (Auto) 1.6 [place] # (Auto) 0.4 Eos # (Auto) 0.2 Baso # (Auto) 0.1 POC Glucose 328 H* 244 H Blood Type Blood Type Confirm Antibody Screen Crossmatch ([facility]) 01/06/20 01/05/20 01/05/20 03:24 22:22 20:45 WBC RBC Hgb 8.2 L Hct 25.9 L MCV MCH MCHC RDW Plt Count MPV Neut % (Auto) Lymph % (Auto) [place] % (Auto) Eos % (Auto) Baso % (Auto) Neut # (Auto) Lymph # (Auto) [place] # (Auto) Eos # (Auto) Baso # (Auto) POC Glucose 248 H Blood Type Blood Type Confirm O Negative Antibody Screen Crossmat
[2020-01-06 23:41] LABS: POC Glucose,Bedside 224 (70-110)
[2020-01-06 23:41] LABS: POC Glucose,Bedside 277 (70-110)
[2020-01-07] VITALS: BP 125/60; PULSE 70; RESP 18; TEMP 36.9; O2SAT 96
[2020-01-07 03:35] VITALS: BP 110/55; PULSE 65; RESP 17; TEMP 36.9; O2SAT 93
--- NOTE | 2020-01-07 04:55 | PC.NURSE ---
A&OX3. 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 LUNGS NOTED CLEAR T/O AUSCULTATION. TOLERATED 3LNC WELL, THIS IS PT'S BASELINE. PULSES +2, CAP REFILL <3SEC. ABDOMEN OBSERVED AT BASELINE FOR PATIENT, ACTIVE BOWEL SOUNDS, SOFT AND NONTENDER PER PALPATION. NO BM'S NOTED THIS SHIFT. ADEQUATE UO. URINE NOTED DARK YELLOW AND CLEAR. BLE NOTED WITH EDEMA, REDNESS, AND SCATTERED SCABS. PT HAS RESTED WELL IN CHAIR THIS SHIFT, SLEPT IN INTERVALS. C/O PAIN IN BACK AND MEDICATED WITH PRN PAIN MEDICATION AND MUSCLE RELAXER, ON REASSESSMENT, PT NOTED WITH EYES CLOSED AND RESTING IN CHAIR. VSS. WILL CONTINUE TO MONITOR.
[2020-01-07 05:03] VITALS: BMI 45.6
[2020-01-07 06:25] LABS: Basophils # 0.1 K/mm3 (0-0.2); Basophils % 0.7 % (0.1-2.0); Eosinophils # 0.2 K/mm3 (0.0-0.4); Hematocrit 28.1 % (42.0-52.0); Hemoglobin 8.6 g/dL (14.1-18.0); Lymphocytes # 1.7 K/mm3 (0.7-4.5); Lymphocytes % 25.1 % (10-50); Mean Corpuscular HGB Conc 30.6 g/dL (31.8-35.4); Mean Corpuscular Hemoglobin 26.9 pg (27.0-31.2); Mean Corpuscular Volume 87.9 fl (80-94); Monocytes # 0.5 K/mm3 (0.1-1.0); Monocytes % 7.2 % (1.7-9.3); Neutrophils # 4.4 K/mm3 (1.8-7.8); Neutrophils % 64.1 % (37.0-80.0); Platelet Count 253 K/mm3 (142-424); Red Blood Count 3.19 M/mm3 (4.60-6.20); Red Cell Distribution Width 15.5 % (11.5-17.5); White Blood Count 6.9 K/mm3 (4.8-10.8)
[2020-01-07 06:52] LABS: Anion Gap 3.3 mEq/L (5-15); Blood Urea Nitrogen 12 mg/dl (9-20); Calcium 8.2 mg/dl (8.4-10.2); Carbon Dioxide 35 mmol/L (22.0-30.0); Chloride 102 mmol/L (98-107); Creatinine Clearance Estimated 76 mL/min (50-200); Estimated Glomerular Filt Rate 97 ml/min (>60); GFR (African American) 117 ML/MIN (>60); Glucose 208 mg/dl (74-100); Potassium 4.3 mmoL/L (3.5-5.1); Sodium 136 mmol/L (136-145)
--- NOTE | 2020-01-07 06:52 | HMH.GSPN ---
Subjective Narrative: Patient states that he feels fair . He states that his bowel movements are less dark and are clearing up . Exam Vital signs and Labs for Last 24 Hours: Temp Pulse Resp BP Pulse Ox 98.4 F 65 17 110/55 L 93 L 01/07/20 03:35 01/07/20 03:35 01/07/20 03:35 01/07/20 03:35 01/07/20 03:35 Laboratory Results - last 24 hr 01/06/20 06:21: WBC 6.5, RBC 3.00 L, Hgb 8.0 L, Hct 26.6 L, MCV 88.7, MCH 26.6 L, MCHC 30.0 L, RDW 15.3, Plt Count 225, MPV 8.2, Neut % (Auto) 65.3, Lymph % (Auto) 25.2, [place] % (Auto) 6.0, Eos % (Auto) 2.6, Baso % (Auto) 0.9, Neut # (Auto) 4.2, Lymph # (Auto) 1.6, [place] # (Auto) 0.4, Eos # (Auto) 0.2, Baso # (Auto) 0.1 01/06/20 11:40: POC Glucose 328 H* 01/06/20 16:01: Hgb 8.6 L, Hct 26.2 L 01/06/20 16:31: POC Glucose 277 H 01/06/20 20:09: POC Glucose 224 H 01/07/20 06:11: WBC 6.9, RBC 3.19 L, Hgb 8.6 L, Hct 28.1 L, MCV 87.9, MCH 26.9 L, MCHC 30.6 L, RDW 15.5, Plt Count 253, MPV 8.0, Neut % (Auto) 64.1, Lymph % (Auto) 25.1, [place] % (Auto) 7.2, Eos % (Auto) 3.0, Baso % (Auto) 0.7, Neut # (Auto) 4.4, Lymph # (Auto) 1.7, [place] # (Auto) 0.5, Eos # (Auto) 0.2, Baso # (Auto) 0.1 I & O for Last 24 hours: Intake & Output 01/04/20 01/05/20 01/06/20 01/07/20 11:59 11:59 11:59 11:59 Intake Total 1402 / 1402 1235 / 1235 Output Total 526 / 526 250 / 250 Balance 876 / 876 985 / 985 Weight 326 lb 5.005 oz 326 lb 5.005 oz - *Routine Abdominal Exam Present: soft Progress Note: A&P (1) GI bleed due to NSAIDs Status: Resolved Current Visit: Yes (2) Acute blood loss anemia Status: Acute Current Visit: Yes (3) Diabetes mellitus, insulin dependent (IDDM), controlled Status: Chronic Current Visit: No (4) Morbid obesity with BMI of 45.0-49.9, adult Status: Chronic Current Visit: No (5) Renal insufficiency Status: Chronic Current Visit: No (6) HIV disease Status: Chronic Current Visit: No (7) Venous stasis ulcers of both lower extremities Status: Chronic Current Visit: No Assessment and Plan for All Diagnoses:: Patient had findings of intraoral erosive gastritis. He was transfused 1 unit of packed red blood cells overnight the evening of 01/05/2020 and had an appropriate response for 1 unit transfusion with stability.
[2020-01-07 08:00] VITALS: BP 112/45; PULSE 76; RESP 18; TEMP 36.8; O2SAT 93; O2SAT 96
[2020-01-07 11:35] LABS: POC Glucose,Bedside 235 (70-110)
== END 2020-01-07 10:58 | disposition home or self-care (01) | DRG 378 ==
LOC: ER 16:32 → 2ND 01-06 07:02
PROVIDERS: Family Medicine; Surgery; Admitting Provider Internal Medicine Adolescent Medicine; Emergency Provider Family Medicine; PCP Internal Medicine; Visit Provider Internal Medicine Adolescent Medicine
PROC: 0DJ08ZZ Inspection of Upper Intestinal Tract, Via Natural or Artificial Opening Endoscopic (ICD-10-PCS; CPT 43235; principal; 2020-01-06 09:00)
DX: K29.01 Acute gastritis with bleeding (principal); L97.811 Non-pressure chronic ulcer of other part of right lower leg limited to breakdown of skin; L97.821 Non-pressure chronic ulcer of other part of left lower leg limited to breakdown of skin; D62 Acute posthemorrhagic anemia; T39.395A Adverse effect of other nonsteroidal anti-inflammatory drugs [NSAID], initial encounter; Z21 Asymptomatic human immunodeficiency virus [HIV] infection status; E11.9 Type 2 diabetes mellitus without complications; Z79.4 Long term (current) use of insulin; I25.2 Old myocardial infarction; I11.0 Hypertensive heart disease with heart failure; I50.9 Heart failure, unspecified; I83.018 Varicose veins of right lower extremity with ulcer other part of lower leg; I83.028 Varicose veins of left lower extremity with ulcer other part of lower leg
CPT/HCPCS: 43239; 36415; 74177; 80048; 80053; 82962; 85014; 85018; 85025; 85610; 86850; 88305; 94760; 94761; 99284; P9016; Q9967

== ENCOUNTER 2020-06-11 10:50 | Emergency (ER) | payer MEDICARE, SELFPAY ==
[2020-06-11 11:06] VITALS: BP 125/48; PULSE 99; RESP 20; TEMP 36.8; O2SAT 93; BMI 43.4
--- NOTE | 2020-06-11 11:09 | XR_ITS ---
PROCEDURE: XR CHEST AP CLINICAL HISTORY: fall Pain following injury COMPARISON: CR CXR1VP XR chest portable from 11/13/2018 CR XR CHEST PORTABLE from 08/02/2019 FINDINGS: Cardiomegaly. Mild prominence of the mediastinum not significantly changed there are mild atelectatic changes in the right lung base. No acute bony findings. IMPRESSION: Cardiomegaly with mild right basilar atelectasis Dictated by: Jack Anthony MD 06/11/2020 16:54 Jack Anthony MD in [facility] 06/11/2020 16:54
--- NOTE | 2020-06-11 11:09 | CT_ITS ---
PROCEDURE: CT LUMBAR SPINE WO CON CLINICAL HISTORY: neck Lumbar pain following injury COMPARISON: No exams were available for comparison TECHNIQUE: Axial images obtained with sagittal and coronal reformats. All CT scans at the facility use one or more dose reduction, viz: automated exposure control, ma/kV adjustment per patient size (including targeted exams where dose is matched to indication, i.e. head), or iterative reconstruction technique. FINDINGS: No fracture or dislocation. No lytic or blastic change. There is multilevel lumbar spondylosis. T12-L1: Mild degenerative disc disease. L1-L2: Minimal bulging disc eccentric toward the left L2-L3: Unremarkable. L3-L4: Bulging disc with facet and ligamentum hypertrophy. There is a small broad-based disc osteophyte complex. There is bilateral lateral recess narrowing foraminal narrowing and narrowing of the canal. L4-5: Degenerative disc disease. There is ridging of the posterior aspect of the L4 vertebral body centrally. Facet ligamentum hypertrophy with bulging disc with canal stenosis and bilateral lateral recess and foraminal narrowing. L5-S1: Bulging disc with facet and ligamentum hypertrophy with bilateral lateral recess and foraminal narrowing. There is fusion of the right SI joint. IMPRESSION: 1. No acute fracture. 2. Multilevel lumbar spondylosis with canal stenosis. Please see above for detailed description at each level Dictated by: Jack Anthony MD 06/11/2020 13:42 Jack Anthony MD in [facility] 06/11/2020 13:42
--- NOTE | 2020-06-11 11:09 | CT_ITS ---
PROCEDURE: CT HEAD/BRAIN WO CON CLINICAL INDICATION: neck Head injury with headache/pain, contusion, abrasion or hematoma COMPARISON: No exams were available for comparison TECHNIQUE: Axial images obtained. All CT scans at the facility use one or more dose reduction, viz: automated exposure control, ma/kV adjustment per patient size (including targeted exams where dose is matched to indication, i.e. head), or iterative reconstruction technique. FINDINGS: No midline shift, mass effect, intracranial hemorrhage, hydrocephalus, or extra-axial fluid collection is evident. The calvarium has an unremarkable appearance. There are bilateral mastoid effusions. No sinus air-fluid level. IMPRESSION: No acute intracranial findings. Bilateral mastoid sinus disease Dictated by: Jack Anthony MD 06/11/2020 13:10 Jack Anthony MD in [facility] 06/11/2020 13:10
--- NOTE | 2020-06-11 11:09 | CT_ITS ---
PROCEDURE: CT CERVICAL SPINE WO CON CLINICAL INDICATION: neck Neck pain following injury COMPARISON: No exams were available for comparison TECHNIQUE: Axial images obtained with sagittal and coronal reformats. All CT scans at the facility use one or more dose reduction, viz: automated exposure control, ma/kV adjustment per patient size (including targeted exams where dose is matched to indication, i.e. head), or iterative reconstruction technique. Axial spiral CT scanning performed of the cervical spine beginning at the base of the skull and continuing to the upper T-spine. 3-D multiplanar reconstruction with 3-D manipulation of volumetric data set in image rendering was completed by the radiologist and/or technologist with the supervision of the radiologist on independent workstation. FINDINGS: There is normal alignment. No acute fracture or dislocation is evident. There is multilevel cervical spondylosis. C2-C3: Degenerate disc disease with left foraminal narrowing. C3-C4: Degenerate disc disease with left foraminal narrowing. C4-C5: Mild degenerative disc disease. C5-C6: Degenerate disc disease with prominent anterior osteophyte. C6-C7: Degenerate disc disease with narrowing of the canal. Lung apices are clear. IMPRESSION: No acute fracture. Multilevel cervical spondylosis Dictated by: Jack Anthony MD 06/11/2020 13:16 Jack Anthony MD in [facility] 06/11/2020 13:16
--- NOTE | 2020-06-11 11:14 | HMH.EDGENADL ---
ED Disposition Clinical Impression: Hyperglycemia T7 vertebral fracture Qualifiers: Encounter type: initial encounter Fracture type: closed Fracture morphology: unspecified fracture morphology Qualified Code(s): S22.069A - Unspecified fracture of T7-T8 vertebra, initial encounter for closed fracture Disposition: Xfer Short-Term Hosp Condition on Discharge: Fair Referrals: Bruce Faith [Primary Care Provider] - Forms: Transfer Record - ED - Critical Care Critical Care Time: No Attestation: On 06/11/20, the high probability of a clinically significant, sudden or life threatening deterioration of the following system(s) required my full and direct attention, intervention and personal management. The time I documented below is in addition to time spent performing reported procedures but includes the following listed in this critical care notation. Medical Decision Making - Medical Records Medical records reviewed: Yes: I reviewed the patient's medical records. - Valentin Inquiry Pt receiving controlled substance: Yes Valentin was queried for this patient: No Reason not queried -: Emergent pt cond-no time Risks and benefits of using a controlled substance: were not discussed with pt by me Vital Signs: 06/11/20 11:06 Temperature 98.3 F Temperature Source Oral Pulse Rate [Right Radial] 99 H Respiratory Rate 20 Blood Pressure [Right Arm] 125/48 L Blood Pressure Mean [Right Arm] 73 02 Sat by Pulse Oximetry 93 L Oxygen Delivery Method Nasal Cannula Oxygen Flow Rate (LPM) 3.5 - Lab Data Lab results reviewed: Yes: I reviewed the patient's lab results. Lab Results 06/11/20 11:20: Urine Color Yellow, Urine Appearance Clear, Urine pH 6.5, Ur Specific [place] 1.010, Urine Protein Negative, Urine Glucose (UA) 3+, Urine Ketones Negative, Urine Blood 2+, Urine Nitrate Negative, Urine Bilirubin Negative, Urine Urobilinogen 0.2, Ur Leukocyte Esterase Negative, Urine RBC 5-10, Urine WBC None, Ur Squamous Epith Cells Occasional, Urine Bacteria None 06/11/20 11:45: WBC 11.0 H, RBC 4.67, Hgb 12.6 L, Hct 42.6, MCV 91.2, MCH 27.0, MCHC 29.7 L, RDW 14.0, Plt Count 194, MPV 7.6, Neut % (Auto) 83.0 H, Lymph % (Auto) 10.9, [place] % (Auto) 5.2, Eos % (Auto) 0.6, Baso % (Auto) 0.4, Neut # (Auto) 9.1 H, Lymph # (Auto) 1.2, [place] # (Auto) 0.6, Eos # (Auto) 0.1, Baso # (Auto) 0.0 06/11/20 11:45: Sodium 134 L, Potassium 5.1, Chloride 87 L, Carbon Dioxide 36 H, Anion Gap 16.1 H, BUN 26 H, Creatinine 0.90, Estimated Creat Clear 80, Estimated GFR 84, Est GFR ( Amer) 102, Glucose 642 H*, Calcium 9.3, Total Bilirubin 0.8, AST 29, ALT 28, Alkaline Phosphatase 321 H, Total Protein 8.1, Albumin 3.9, Globulin 4.2 H, Albumin/Globulin Ratio 0.9 L 06/11/20 14:08: POC Glucose 506 H* 06/11/20 14:28: Random Glucose 524 H* Result diagrams: 06/11/20 11:45 06/11/20 11:45 Orders (Tests/Meds): ED MEDICATIONS Discontinued Medications Generic Name Dose Route Start Last Admin Trade Name Freq PRN Reason Stop Dose Admin Insulin Human Regular 10 unit 06/11/20 13:00 06/11/20 13:02 Insulin Human Regular 100 Units/Ml 10ml Vial IVP 06/11/20 13:01 10 unit ONCE ONE Administration Morphine Sulfate 4 mg 06/11/20 11:46 06/11/20 11:45 Morphine 4mg/Ml Syringe IV 06/11/20 11:47 4 mg ONCE ONE Administration Morphine Sulfate 4 mg 06/11/20 12:58 06/11/20 13:02 Morphine 4mg/Ml Syringe IV 06/11/20 12:59 4 mg ONCE ONE Administration Ondansetron HCl 4 mg 06/11/20 11:46 06/11/20 11:45 Ondansetron 4mg/2ml Vial IV 06/11/20 11:47 4 mg ONCE ONE Administration ORDERS Category Date Time Status XR chest AP Stat Exams 06/11/20 11:09 Taken - Radiology Data #1 Image(s): Chest Image Reviewed: Yes I reviewed the patient's radiology image cardiomegaly - CT Data CT Scan: Head, C-Spine, T-Spine, L-Spine Time Received: 14:[address] Reviewed: Yes: I discussed the CT results w/the radiologist, I have viewed the radiol
[2020-06-11 11:23] LABS: Appearance,Urine CLEAR (Clear); Bilirubin,Urine Negative (Negative); Blood, Urine 2+ (Negative); Color,Urine YELLOW (Yellow); Glucose,Urine (UA) 3+ (Negative); Ketones,Urine Negative (Negative); Leukocyte Esterase,Urine Negative (Negative); Microscopic, Urine URINE MICROSCOPIC (MICROSCOPIC); Nitrate,Urine Negative (Negative); PH,Urine 6.5 (5.0-8.5); Protein,Urine Negative (Negative); Urobilinogen,Urine 0.2 EU/dl (0.2)
[2020-06-11 11:34] LABS: Squamous Epithelial Cell,Urine Occasional #/hpf (0-5)
[2020-06-11 11:51] LABS: Basophils % 0.4 % (0.1-2.0); Eosinophils # 0.1 K/mm3 (0.0-0.4); Eosinophils % 0.6 % (0.1-12.0); Hematocrit 42.6 % (42.0-52.0); Hemoglobin 12.6 g/dL (14.1-18.0); Lymphocytes # 1.2 K/mm3 (0.7-4.5); Lymphocytes % 10.9 % (10-50); Mean Corpuscular HGB Conc 29.7 g/dL (31.8-35.4); Mean Corpuscular Volume 91.2 fl (80-94); Mean Platelet Volume 7.6 fl (7.4-10.4); Monocytes # 0.6 K/mm3 (0.1-1.0); Monocytes % 5.2 % (1.7-9.3); Neutrophils # 9.1 K/mm3 (1.8-7.8); Platelet Count 194 K/mm3 (142-424); Red Blood Count 4.67 M/mm3 (4.60-6.20)
[2020-06-11 11:58] LABS: Alanine Aminotransferase 28 U/L (12-78); Albumin Level 3.9 g/dl (3.5-5.0); Albumin/Globulin Ratio 0.9 (1.1-1.8); Alkaline Phosphatase 321 U/L (38-126); Aspartate Amino Transferase 29 U/L (17-59); Bilirubin,Total 0.8 mg/dl (0.2-1.3); Blood Urea Nitrogen 26 mg/dl (9-20); Calcium 9.3 mg/dl (8.4-10.2); Chloride 87 mmol/L (98-107); Creatinine Clearance Estimated 80 mL/min (50-200); Estimated Glomerular Filt Rate 84 ml/min (>60); GFR (African American) 102 ML/MIN (>60); Globulin 4.2 g/dL (1.3-3.2); Potassium 5.1 mmoL/L (3.5-5.1); Sodium 134 mmol/L (136-145); Total Protein,Serum 8.1 g/dl (6.3-8.2)
[2020-06-11 12:05] LABS: Anion Gap 16.1 mEq/L (5-15)
[2020-06-11 12:07] LABS: Carbon Dioxide 36 mmol/L (22.0-30.0); Glucose 642 mg/dl (74-100)
--- NOTE | 2020-06-11 12:48 | PC.NURSE ---
Pt states that he does not feel like he needs a pelvic xray nor can he get up to the table to do the x-ray. MD ace
--- NOTE | 2020-06-11 12:59 | CT_ITS ---
PROCEDURE: CT THORACIC SPINE WO CON CLINICAL HISTORY: trauma Neck pain COMPARISON: No exams were available for comparison TECHNIQUE: Axial images obtained with sagittal and coronal reformats. All CT scans at the facility use one or more dose reduction, viz: automated exposure control, ma/kV adjustment per patient size (including targeted exams where dose is matched to indication, i.e. head), or iterative reconstruction technique. FINDINGS: There is diffuse osteopenia. There is mild midthoracic curvature convex right. There is multilevel spondylosis with endplate hypertrophic changes and decrease in the disc spaces. There is an oblique fracture through the body of T7. There is mild distraction of the fracture fragments by approximately 5 mm. There is ankylosis of the thoracic spine with an associated chalk stick fracture of the ankylosed thoracic spine at the T6-T7 area. The posterior elements do not appear involved. There is no malalignment. The fracture extends from the anterior superior aspect of the vertebral body to the posterior inferior aspect of the vertebral body extending into the disc space on the right aspect and into the posterior aspect of the vertebral body on the left aspect. There is no retropulsion. No canal stenosis. There are mild atelectatic changes in the lung bases. IMPRESSION: Oblique fracture through the T7 vertebral body with mild distraction of the fracture fragments with chalk stick fracture of the anterior longitudinal ligament Dictated by: Jack Anthony MD 06/11/2020 14:14 Jack Anthony MD in [facility] 06/11/2020 14:14
[2020-06-11 14:15] LABS: POC Glucose,Bedside 506 (70-110)
--- NOTE | 2020-06-11 14:19 | PC.NURSE ---
taryn call to [facility] for transfer, pt has t7 fx.
--- NOTE | 2020-06-11 14:24 | PC.NURSE ---
Dr Lopez speaking with Dr Jay
--- NOTE | 2020-06-11 14:36 | PC.NURSE ---
report called to rod scanlon rn at ed.
[2020-06-11 14:50] LABS: Glucose,Random 524 mg/dL (74-100)
[2020-06-11 14:58] VITALS: BP 135/74; PULSE 88; RESP 16; TEMP 36.6; O2SAT 98
== END 2020-06-11 14:59 | disposition short-term general hospital (02) ==
PROVIDERS: Emergency Provider Emergency Medicine; PCP Internal Medicine
DX: S22.069A Unspecified fracture of T7-T8 vertebra, initial encounter for closed fracture (principal); M54.2 Cervicalgia; W01.0XXA Fall on same level from slipping, tripping and stumbling without subsequent striking against object, initial encounter; Y92.019 Unspecified place in single-family (private) house as the place of occurrence of the external cause; I25.10 Atherosclerotic heart disease of native coronary artery without angina pectoris; E11.65 Type 2 diabetes mellitus with hyperglycemia; I25.2 Old myocardial infarction; I10 Essential (primary) hypertension; M79.7 Fibromyalgia; Z79.899 Other long term (current) drug therapy
CPT/HCPCS: 36415; 70450; 71045; 72125; 72128; 72131; 80053; 81001; 82947; 82962; 85025; 96374; 96375; 96376; 99284; J2405

== ENCOUNTER 2020-07-03 12:13 | Emergency (ER) | payer MEDICARE, SELFPAY ==
--- NOTE | 2020-07-03 12:21 | XR_ITS ---
PROCEDURE: XR CHEST 2V CLINICAL HISTORY: chest congestion COMPARISON: CR CXR1VP XR chest portable from 11/13/2018 CR XR CHEST PORTABLE from 08/02/2019 CR XR CHEST AP from 06/11/2020 FINDINGS: There is cardiomegaly with mild pulmonary venous congestion. There is blunting of the CP angles on both sides consistent with bilateral pleural effusions/pleural thickening. On the lateral view there is a questionable air-fluid level in the mid chest region. Inter pedicular screws are present in the mid upper thoracic spine No acute bony abnormalities. IMPRESSION: Mild CHF with bilateral effusions Possible air-fluid level in the mid mediastinal region. Chest CT may provide further evaluation Dictated by: Jack Anthony MD 07/03/2020 22:01 Jack Anthony MD in [facility] 07/03/2020 22:01
[2020-07-03 12:24] VITALS: BP 139/66; PULSE 63; RESP 22; TEMP 36.7; O2SAT 96; BMI 41.3
--- NOTE | 2020-07-03 12:57 | HMH.EDUTC ---
[facility] – [place] Disposition Clinical Impression: Community acquired pneumonia Qualifiers: Laterality: left Lung location: lower lobe of lung Qualified Code(s): J18.9 - Pneumonia, unspecified organism Disposition: Home, Self-Care Condition on Discharge: Good Instructions: Pneumonia-Adult, DI for Pneumonia -- Adult, Doxycycline Additional Instructions: ? Start antibiotic today. Be sure to complete entire prescription even if feeling better ? Monitor temp. Tylenol every 4 hours as needed and / or ibuprofen every 6 hours as needed ( As long as your primary care physician has told you that it ok to take both. For fever/aches/pains ER if no less than 101 despite Tylenol or Motrin ? Humidifier/vaporizer or hot steamy shower ? Inhaler every 4-6 hours as needed like we discussed. If unsure how to use it, ask pharmacist to demonstrate how. Should help open airways and improve cough, wheezing, and shortness of breath Follow up IMMEDIATELY for new or worsening of symptoms OR no noticeable improvement over the next 48-72 hours. 911 immediately for any life threatening symptoms such as chest pain or difficulty breathing Follow up with Family Doctor if no improvement or any worsening of symptoms Return if needed Straight to ER if any life threatening symp[toms Prescriptions: Doxycycline Hyclate [Doxycycline 100mg Capsule] 100 mg PO BID 10 Days #20 cap Transmission Status: Received by [facility] Referrals: Bruce Faith [Primary Care Provider] - As needed Time of Disposition: 13:11 Medical Decision Making - Valentin Inquiry Pt receiving controlled substance: No Valentin was queried for this patient: No Vital Signs: 07/03/20 12:24 07/03/20 13:20 Temperature 98.0 F 98.0 F Temperature Source Oral Oral Pulse Rate 63 Pulse Rate [Radial] 63 Respiratory Rate 22 22 Blood Pressure 139/66 Blood Pressure [Right Arm] 139/66 Blood Pressure Mean [Right Arm] 90 Blood Pressure Source Automatic Cuff Blood Pressure Source [Right Arm] Automatic Cuff Blood Pressure Position Sitting Blood Pressure Position [Right Arm] Sitting 02 Sat by Pulse Oximetry 96 Oxygen Delivery Method Nasal Cannula Room Air Oxygen Flow Rate (LPM) 3.5 Orders (Tests/Meds): ORDERS Category Date Time Status CXR 2 view (NOT portable) [XR chest 2V] Stat Exams 07/03/20 12:21 Taken - Radiology Data #1 Image(s): Chest Image Reviewed: Yes I reviewed the patient's radiology image w/the ED provider atelactisis left lower lobe with similar finding in right lower lobe Medical Decision Narrative: Patient states that he has taken Doxy before without complications or reactions [facility] [place] HPI - General Stated complaint: short of breath, pain in lungs post surgery Time Seen by Provider: 07/03/20 12:57 Mode of Arrival: Wheelchair Source of Information: Patient Limitations: No Limitations Description of Symptoms (Recalled from Triage Doc. by RN): CHEST CONGESTION HEENT Symptoms (Recalled from RN notes): Yes Resp Symptoms (Recalled from RN notes): No Skin Symptoms (Recalled from RN notes): No MS Symptoms (Recalled from RN notes): No Functional Status (Recalled from RN notes): WNL - History of Present Illness Provider Complaint: Patient states thats that he recently had back surgery States that he has been having cough, sinus pressure and congestion State that he has had pneumonia several times and feels like it did then States that he come in today to get it checked and see if he needed antibiotics before it got too bad - Related Data Home Medications Medication Instructions Recorded Confirmed Baclofen [Lioresal 10mg tablet] 10 mg PO TIDP PRN 11/13/18 01/05/20 Bictegrav/Emtricit/Tenofov Ala 1 each PO DAILY 11/13/18 01/05/20 [Biktarvy 50-200-25 mg Tablet] Finasteride [Proscar 5mg Tablet] 5 mg PO DAILY 11/13/18 01/05/20 Insulin Regular, Human [Humulin R 325 unit SQ BID 11/13/18 01/06/20 U-500] Lidocaine 1 each TP DAILYP PRN 11/13/18 01/05/20 Losartan
[2020-07-03 13:20] VITALS: BP 139/66; PULSE 63; RESP 22; TEMP 36.7; O2SAT 96
== END 2020-07-03 13:23 | disposition home or self-care (01) ==
PROVIDERS: Emergency Provider Nurse Practitioner; PCP Internal Medicine
DX: J18.9 Pneumonia, unspecified organism (principal); I25.10 Atherosclerotic heart disease of native coronary artery without angina pectoris; E11.9 Type 2 diabetes mellitus without complications; E78.5 Hyperlipidemia, unspecified; I25.2 Old myocardial infarction; Z79.899 Other long term (current) drug therapy
CPT/HCPCS: 71046; 99201

== ENCOUNTER 2020-11-26 11:48 | Emergency (ER) | payer MEDICARE, SELFPAY ==
[2020-11-26 12:02] VITALS: BP 120/56; PULSE 76; RESP 19; TEMP 36.9; O2SAT 96; BMI 46.7
--- NOTE | 2020-11-26 12:16 | HMH.EDUTC ---
[facility] [place] Clinical Impression: COPD exacerbation Disposition: Home, Self-Care Condition on Discharge: Good Instructions: DI for Chronic Obstructive Pulmonary Disease, How to Use a Nebulizer Additional Instructions: Drink plenty of fluids. Take tylenol or ibuprofen for pain or fever. Take the medications as directed. Follow up with your regular doctor. GO TO THE ER FOR ANY WORSENING SYMPTOMS Prescriptions: Ipratropium/Albuterol Sulfate [Duoneb 3mL neb] 3 ml IH Q6HP PRN #120 neb PRN Reason: Dyspnea Transmission Status: Received by [facility] Doxycycline Hyclate [Doxycycline 100mg Capsule] 100 mg PO Q12 10 Days #20 cap Transmission Status: Received by [facility] Referrals: Bruce Faith [Primary Care Provider] - Time of Disposition: 12:30 Medical Decision Making - Medical Records Medical records reviewed: No: I reviewed the patient's medical records. - Valentin Inquiry Pt receiving controlled substance: No Vital Signs: 11/26/20 12:02 11/26/20 12:50 Temperature 98.4 F 98.4 F Temperature Source Oral Oral Pulse Rate 78 Pulse Rate [Left] 76 Respiratory Rate 19 20 Blood Pressure 120/58 L Blood Pressure [Left Arm] 120/56 L Blood Pressure Mean [Left Arm] 77 Blood Pressure Source [Left Arm] Automatic Cuff 02 Sat by Pulse Oximetry 96 Oxygen Delivery Method Nasal Cannula Nasal Cannula Oxygen Flow Rate (LPM) 2 2 [facility] [place] HPI - General Stated complaint: SOA, aching Time Seen by Provider: 11/26/20 12:16 Mode of Arrival: Wheelchair Source of Information: Patient, Relative Limitations: Physical Limitations Description of Symptoms (Recalled from Triage Doc. by RN): Pt has been SOA with chest congestion for 2 days. Pt is on home O2 d/t COPD. HEENT Symptoms (Recalled from RN notes): Yes Resp Symptoms (Recalled from RN notes): Yes Skin Symptoms (Recalled from RN notes): No MS Symptoms (Recalled from RN notes): No Functional Status (Recalled from RN notes): na - History of Present Illness Provider Complaint: He states that he has a history of copd and sleep apnea. For the past 2 nights he has been too congested in his chest and sinuses to be able to use his cpap for very long while he is sleeping. He needs a nebulizer machine at home. He has been taking pulmocort inhaler at home, but at this time it does not seem like it is helping him like it should. - Related Data Home Medications Medication Instructions Recorded Confirmed Baclofen [Lioresal 10mg tablet] 10 mg PO TIDP PRN 11/13/18 11/26/20 Bictegrav/Emtricit/Tenofov Ala 1 each PO DAILY 11/13/18 11/26/20 [Biktarvy 50-200-25 mg Tablet] Finasteride [Proscar 5mg Tablet] 5 mg PO DAILY 11/13/18 11/26/20 Insulin Regular, Human [Humulin R 325 unit SQ BID 11/13/18 11/26/20 U-500] Lidocaine 1 each TP DAILYP PRN 11/13/18 11/26/20 Losartan Potassium 100 mg PO DAILY 11/13/18 11/26/20 Metoprolol Tartrate [Lopressor 100 150 mg PO BID 11/13/18 11/26/20 mg Tablets] Trazodone HCl 50 mg PO HS PRN 11/13/18 11/26/20 Alogliptin Benzoate [Alogliptin] 12.5 mg PO DAILY 08/02/19 11/26/20 Aspirin [Aspir 81] 81 mg PO DAILY 08/02/19 11/26/20 Gabapentin [Gabapentin 300mg Cap] 900 mg PO TID 08/02/19 11/26/20 Hydrophilic Ointment [Hydrophilic] 113 gm TP BIDP PRN 08/03/19 11/26/20 M-Salicy/Aloe/Menthol/Eucalypt 237 ml TP BIDP PRN 08/03/19 11/26/20 [[place] Aloe Analgesic Liniment] [place]-3S/Dha/Epa/Fish Oil [Fish 1 each PO DAILY 08/03/19 11/26/20 Oil 1,000 mg Softgel] Mupirocin [Bactroban 2% Ointment 1 applicatio TP NEEDED PRN 01/05/20 11/26/20 22gm tube] Bumetanide 3 mg PO Q48H 01/06/20 11/26/20 Cetirizine HCl 10 mg PO BID 01/06/20 11/26/20 Tamsulosin HCl [Flomax 0.4mg 0.4 mg PO HS 01/06/20 11/26/20 capsule] Tramadol HCl [Tramadol 50mg 50 mg PO TIDP PRN 01/06/20 11/26/20 Tab] Pantoprazole Sodium [Protonix 40mg 40 mg PO DAILY 11/26/20 11/26/20 tablet] methocarbamoL [Methocarbamol] 750 mg PO KARINA
[2020-11-26 12:50] VITALS: BP 120/58; PULSE 78; RESP 20; TEMP 36.9; O2SAT 96
== END 2020-11-26 12:52 | disposition home or self-care (01) ==
PROVIDERS: Emergency Provider Nurse Practitioner Family; PCP Internal Medicine
DX: J44.1 Chronic obstructive pulmonary disease with (acute) exacerbation (principal); Z99.81 Dependence on supplemental oxygen; I25.2 Old myocardial infarction; I10 Essential (primary) hypertension; E78.5 Hyperlipidemia, unspecified; I50.9 Heart failure, unspecified; I25.10 Atherosclerotic heart disease of native coronary artery without angina pectoris; Z79.899 Other long term (current) drug therapy
CPT/HCPCS: G0463; 99202

== ENCOUNTER 2020-12-26 09:41 | Emergency (ER) | payer MEDICARE, SELFPAY ==
[2020-12-26 09:45] VITALS: BP 126/53; PULSE 78; RESP 16; TEMP 37; O2SAT 92; BMI 59.5
--- NOTE | 2020-12-26 09:53 | XR_ITS ---
PROCEDURE: XR ANKLE RT MIN 3V CLINICAL INDICATION: fall with pain COMPARISON: No exams were available for comparison FINDINGS: There is a nondisplaced fracture oblique in nature involving the distal fibula at the distal diaphyseal region. The ankle mortise is preserved. Fracture exits medially just above the ankle joint. The joint spaces are well-preserved. No significant degenerative/arthritic changes. No erosive changes evident. Other findings:Soft tissue swelling laterally IMPRESSION: Nondisplaced oblique fracture distal fibula Dictated by: Jack Anthony MD 12/26/2020 10:35 Jack Anthony MD in [place] 12/26/2020 10:35
--- NOTE | 2020-12-26 09:53 | XR_ITS ---
PROCEDURE: XR FOOT RT MIN 3V CLINICAL INDICATION: fall with pain COMPARISON: No exams were available for comparison FINDINGS: Oblique distal fibular fracture nondisplaced better identified on the ankle images Mild osteoarthritic changes of the midfoot. Calcaneal spur and Achilles enthesophyte noted as well as vascular calcification. Other findings:None. IMPRESSION: Nondisplaced oblique distal fibular fracture otherwise negative Dictated by: aJck Anthony MD 12/26/2020 10:38 Jack Anthony MD in [place] 12/26/2020 10:38
--- NOTE | 2020-12-26 09:56 | HMH.EDUTC ---
[facility] – [place] Disposition Clinical Impression: Uncontrolled diabetes mellitus type 2 without complications, Venous stasis ulcers of both lower extremities, Renal insufficiency Closed fracture of right distal fibula Qualifiers: Encounter type: initial encounter Fracture morphology: unspecified fracture morphology Qualified Code(s): S82.831A - Other fracture of upper and lower end of right fibula, initial encounter for closed fracture Disposition: Home, Self-Care Condition on Discharge: Good Instructions: DI for Ankle Fracture Additional Instructions: Follow up with Dr Garcia or Dr Dobbs/Enoc tomorrow. Keep off foot as much as possible. Referrals: Bruce Faith [Primary Care Provider] - Kirstin Garcia DPM [Staff Physician] - Andrea Dobbs MD [Staff Physician] - Time of Disposition: 10:47 Medical Decision Making - Valentin Inquiry Pt receiving controlled substance: No Vital Signs: 12/26/20 09:45 Temperature 98.6 F Temperature Source Oral Pulse Rate [Left] 78 Respiratory Rate 16 Blood Pressure [Right Arm] 126/53 L Blood Pressure Mean [Right Arm] 77 Blood Pressure Source [Right Arm] Automatic Cuff Blood Pressure Position [Right Arm] Sitting 02 Sat by Pulse Oximetry 92 L Oxygen Delivery Method Room Air - Radiology Data #1 Image(s): Ankle Image Reviewed: Yes I reviewed the patient's radiology image, Yes I have reviewed radiologist's interpretation Preliminary Findings: Abnormal CLINICAL INDICATION: fall with pain COMPARISON: No exams were available for comparison FINDINGS: Oblique distal fibular fracture nondisplaced better identified on the ankle images Mild osteoarthritic changes of the midfoot. Calcaneal spur and Achilles enthesophyte noted as well as vascular calcification. Other findings:None. IMPRESSION: Nondisplaced oblique distal fibular fracture otherwise negative #2 Image(s): Foot/Toes Image Reviewed: Yes I reviewed the patient's radiology image, Yes I have reviewed radiologist's interpretation Preliminary Findings: Normal/NAD PROCEDURE: XR FOOT RT MIN 3V CLINICAL INDICATION: fall with pain COMPARISON: No exams were available for comparison FINDINGS: Oblique distal fibular fracture nondisplaced better identified on the ankle images Mild osteoarthritic changes of the midfoot. Calcaneal spur and Achilles enthesophyte noted as well as vascular calcification. Other findings:None. IMPRESSION: Nondisplaced oblique distal fibular fracture otherwise negative [facility] [place] HPI - General Stated complaint: [id number] Rt ankle injury Time Seen by Provider: 12/26/20 09:56 Mode of Arrival: Ambulatory Source of Information: Patient, Parent(s) Limitations: No Limitations Description of Symptoms (Recalled from Triage Doc. by RN): Rt ankle pain 2 weeks ago and is getting worse HEENT Symptoms (Recalled from RN notes): No Resp Symptoms (Recalled from RN notes): No Skin Symptoms (Recalled from RN notes): No MS Symptoms (Recalled from RN notes): Yes Functional Status (Recalled from RN notes): wnl - History of Present Illness Provider Complaint: Patient fell two weeks ago on 12/13/2020. He was standing up from his recliner when his legs went out from under him and he fell, landing on his right foot and ankle. He had instant pain and nausea, but thought it would just get better. It has continued to hurt, but he has been walking on it. Last night it started hurting even worse; pain 8-9/10 with nausea again. He cannot walk on it today. He does have diabetes and has chronic venous stasis changes to his lower extremities. Onset (ago): week(s) (2) Location: right, lower extremity Severity: severe Severity scale (1-10): 8 Quality: aching, constant Consistency: constant Relieving factors: immobilization Exacerbating factors: movement, other (weight bearing) Associated symptoms: denies other symptoms Treatments prior to arrival: none - Related Data Home Medications Med
[2020-12-26 10:44] VITALS: BP 126/53; PULSE 78; RESP 16; TEMP 37; O2SAT 92
--- NOTE | 2020-12-26 10:48 | PC.NURSE ---
Walking boot applied to right ankle
== END 2020-12-26 10:50 | disposition home or self-care (01) ==
PROVIDERS: Emergency Provider Physician Assistant; PCP Internal Medicine
DX: S82.831A Other fracture of upper and lower end of right fibula, initial encounter for closed fracture (principal); W01.0XXA Fall on same level from slipping, tripping and stumbling without subsequent striking against object, initial encounter; Y92.019 Unspecified place in single-family (private) house as the place of occurrence of the external cause; I83.019 Varicose veins of right lower extremity with ulcer of unspecified site; E11.9 Type 2 diabetes mellitus without complications; I25.10 Atherosclerotic heart disease of native coronary artery without angina pectoris; I10 Essential (primary) hypertension; E78.5 Hyperlipidemia, unspecified; I50.9 Heart failure, unspecified; M77.31 Calcaneal spur, right foot
CPT/HCPCS: 29515; G0463; 73610; 73630; 99202

== ENCOUNTER 2021-02-25 10:29 | Emergency (ER) | payer MEDICARE, SELFPAY ==
[2021-02-25 10:33] VITALS: BP 122/58; PULSE 67; RESP 16; TEMP 36.6; O2SAT 96; BMI 45.0
--- NOTE | 2021-02-25 10:40 | XR_ITS ---
PROCEDURE: XR ANKLE RT 2V CLINICAL INDICATION: pain New onset medial ankle pain COMPARISON: CR XR ANKLE RT MIN 3V from 12/26/2020 FINDINGS: There is a healing fracture of the distal shaft of the fibula with developing callus formation with no significant displacement. There is generalized vascular calcification small calcaneal spur and small enthesophyte of the heel. Other findings:None. IMPRESSION: Healing fracture of the right distal fibula otherwise negative Dictated by: Jack Anthony MD 02/25/2021 10:58 Jack Anthony MD in [place] 02/25/2021 10:58
--- NOTE | 2021-02-25 11:16 | HMH.EDUTC ---
[facility] – [place] Disposition Clinical Impression: Right ankle pain Qualifiers: Chronicity: acute Qualified Code(s): M25.571 - Pain in right ankle and joints of right foot Disposition: Home, Self-Care Condition on Discharge: Good Additional Instructions: You have an appointment at Dr. Garcia's office on March 09 at 11:00 am. Don't bear weight or try to walk on the affected ankle for several days. Follow up with your primary care doctor. GO TO THE ER FOR ANY WORSENING SYMPTOMS OR CONCERNS Prescriptions: Ketorolac Tromethamine [Toradol 10mg tablet] 10 mg PO Q6HP PRN #20 tab MDD 40mg/day PRN Reason: Moderate Pain Transmission Status: Received by [facility] Referrals: Bruce Faith [Primary Care Provider] - Time of Disposition: 11:27 Medical Decision Making - Medical Records Medical records reviewed: No: I reviewed the patient's medical records. - Valentin Inquiry Pt receiving controlled substance: No Vital Signs: 02/25/21 10:33 02/25/21 11:19 Temperature 98 F 98 F Temperature Source Oral Pulse Rate 66 Pulse Rate [Right] 67 Respiratory Rate 16 18 Blood Pressure 124/63 Blood Pressure [Right Arm] 122/58 L Blood Pressure Mean [Right Arm] 79 02 Sat by Pulse Oximetry 96 Oxygen Delivery Method Nasal Cannula Orders (Tests/Meds): ED MEDICATIONS Discontinued Medications Generic Name Dose Route Start Last Admin Trade Name Freq PRN Reason Stop Dose Admin Ketorolac Tromethamine 60 mg 02/25/21 11:17 02/25/21 11:18 Ketorolac 60mg/2ml Vial IM 02/25/21 11:18 60 mg ONCE ONE Administration - Radiology Data #1 Image(s): Tib/Fib Image Reviewed: Yes I reviewed the patient's radiology image, Yes I have reviewed radiologist's interpretation PROCEDURE: XR ANKLE RT 2V CLINICAL INDICATION: pain New onset medial ankle pain COMPARISON: CR XR ANKLE RT MIN 3V from 12/26/2020 FINDINGS: There is a healing fracture of the distal shaft of the fibula with developing callus formation with no significant displacement. There is generalized vascular calcification small calcaneal spur and small enthesophyte of the heel. Other findings:None. IMPRESSION: Healing fracture of the right distal fibula otherwise negative Dictated by: Jack Anthony MD 02/25/2021 10:58 Jack Anthony MD in [place] 02/25/2021 10:58 Medical Decision Narrative: I called and spoke to Dr. Garcia's office regarding this patient. [facility] [place] HPI - General Stated complaint: right leg ankle pain Time Seen by Provider: 02/25/21 11:16 Mode of Arrival: Wheelchair Source of Information: Patient Limitations: No Limitations Description of Symptoms (Recalled from Triage Doc. by RN): pt c/o of R ankle pain for three days. HEENT Symptoms (Recalled from RN notes): No Resp Symptoms (Recalled from RN notes): No Skin Symptoms (Recalled from RN notes): No MS Symptoms (Recalled from RN notes): Yes (R ankle pain) Functional Status (Recalled from RN notes): na - History of Present Illness Provider Complaint: He is here with complaints of right ankle pain. He has a history of fracturing that ankle (distal fibula) back in December. He states that over the past several days he has began having worsening pain of that ankle. He denies any additional injury. He states that his pain is located on the inner aspect of his ankle, instead of the outer aspect that was originally hurting after he injured it back in December. He has been wearing the boot orthosis as directed by podiatry. - Related Data Home Medications Medication Instructions Recorded Confirmed Baclofen [Lioresal 10mg tablet] 10 mg PO TIDP PRN 11/13/18 12/30/20 Bictegrav/Emtricit/Tenofov Ala 1 each PO DAILY 11/13/18 12/30/20 [Biktarvy 50-200-25 mg Tablet] Finasteride [Proscar 5mg Tablet] 5 mg PO DAILY 11/13/18 12/30/20 Insulin Regular, Human [Humulin R 325 unit SQ BID 11/13/18 12/30/20 U-500] Lidocaine 1 each TP DAILYP PRN 11/13/18 12/30/20 Losartan Potass
[2021-02-25 11:19] VITALS: BP 124/63; PULSE 66; RESP 18; TEMP 36.6
== END 2021-02-25 11:31 | disposition home or self-care (01) ==
PROVIDERS: Emergency Provider Nurse Practitioner Family; PCP Internal Medicine
DX: M25.571 Pain in right ankle and joints of right foot (principal); I50.9 Heart failure, unspecified; I25.10 Atherosclerotic heart disease of native coronary artery without angina pectoris; E11.9 Type 2 diabetes mellitus without complications; E78.5 Hyperlipidemia, unspecified; I10 Essential (primary) hypertension; I25.2 Old myocardial infarction; Z79.899 Other long term (current) drug therapy
CPT/HCPCS: G0463; 73600; 96372; 99202

== ENCOUNTER → 2021-04-02 14:08 | Outpatient (CLI) | payer MEDICARE, SELFPAY ==
--- NOTE | 2021-04-02 | XR_ITS ---
PROCEDURE: XR TIBIA FIBULA RT 2V CLINICAL INDICATION: Follow-up fracture COMPARISON: CR XR ANKLE RT 2V from 02/25/2021 FINDINGS: There is a healing distal fibular fracture with developing not significantly changed. Fracture is nondisplaced. Callus formation at the fracture site Osteoarthritic changes are present at the patellofemoral joint Other findings:None. IMPRESSION: No change nondisplaced healing distal fibular fracture Dictated by: Jack Anthony MD 04/04/2021 13:12 Jack Anthony MD in [place] 04/04/2021 13:12
== END ==
LOC: RAD 14:10
PROVIDERS: PCP Internal Medicine; Visit Provider Podiatrist
DX: M25.571 Pain in right ankle and joints of right foot (principal); S82.831A Other fracture of upper and lower end of right fibula, initial encounter for closed fracture
CPT/HCPCS: 73590

== ENCOUNTER 2023-09-16 18:42 | Emergency (ER) | payer MEDICARE, SELFPAY ==
[2023-09-16] VITALS (8 sets, daily range): BP systolic 89–111; BP diastolic 53–59; PULSE 74–78; RESP 17–20; TEMP 36.6–36.7; O2SAT 90–97; BMI 35.9
--- NOTE | 2023-09-16 18:49 | CT_ITS ---
PROCEDURE INFORMATION: Exam: CT Thoracic Spine Without Contrast Exam date and time: 09/16/2023 7:04 PM Age: 68 years old Clinical indication: Injury or trauma; Fall; Blunt trauma (contusions or hematomas); Prior surgery; Surgery date: 6+ months; Surgery type: Thoracic surgical fixation; Additional info: Fall, midline pain, previous fusion TECHNIQUE: Imaging protocol: Computed tomography of the thoracic spine without contrast. Radiation optimization: All CT scans at this facility use at least one of these dose optimization techniques: automated exposure control; mA and/or kV adjustment per patient size (includes targeted exams where dose is matched to clinical indication); or iterative reconstruction. COMPARISON: CT THORACIC SPINE WO CON 06/11/2020 1:23 PM FINDINGS: Bones/joints: Pedicle screws extending from T5-T8 on the left and T5-T8 without T7 on the right. Ankylosis of the thoracic spine again noted. Oblique fracture of T9 extending to the right inferior endplate. No retropulsion into the canal. Fracture of the anterior ankylosis at T9-T10 with widening of the disc space at this level. Soft tissues: Unremarkable. IMPRESSION: 1. Ankylosis of the thoracic spine again noted. 2. Oblique fracture of T9 extending to the right inferior endplate. Fracture of the anterior ankylosis at T9-T10 with widening of the disc space at this level.
--- NOTE | 2023-09-16 18:49 | XR_ITS ---
PROCEDURE INFORMATION: Exam: XR Left Knee Exam date and time: 09/16/2023 7:15 PM Age: 68 years old Clinical indication: Injury or trauma; Fall; Blunt trauma; Knee; Left; Additional info: Fall, pain TECHNIQUE: Imaging protocol: Radiologic exam of the left knee. Views: 1 or 2 views. COMPARISON: No relevant prior studies available. FINDINGS: Bones/joints: Tricompartmental joint space narrowing. No acute fracture or dislocation. Soft tissues: Normal. IMPRESSION: No acute findings.
--- NOTE | 2023-09-16 18:49 | CT_ITS ---
PROCEDURE INFORMATION: Exam: CT Cervical Spine Without Contrast Exam date and time: 09/16/2023 7:02 PM Age: 68 years old Clinical indication: Injury or trauma; Fall; Blunt trauma; Additional info: Fall, midline pain TECHNIQUE: Imaging protocol: Computed tomography of the cervical spine without contrast. Radiation optimization: All CT scans at this facility use at least one of these dose optimization techniques: automated exposure control; mA and/or kV adjustment per patient size (includes targeted exams where dose is matched to clinical indication); or iterative reconstruction. COMPARISON: CT CERVICAL SPINE WO CON 06/11/2020 12:22 PM FINDINGS: Bones/joints: Degenerative changes of the atlantoaxial articulation. Multilevel degenerative disc disease, with disc space narrowing and osteophyte formation. Moderate multilevel bilateral facet and uncovertebral arthropathy. Left C3-C4, bilateral C4-C5, left C5-C6, left C6-C7 neural foraminal narrowing. No acute fracture. Mastoid air cells: Fluid within the mastoid air cells bilaterally. Lungs: Lung apices are normal. Vasculature: Atherosclerotic vascular disease. Soft tissues: Normal. IMPRESSION: No acute fracture.
--- NOTE | 2023-09-16 18:49 | XR_ITS ---
PROCEDURE INFORMATION: Exam: XR Chest Exam date and time: 09/16/2023 7:15 PM Age: 68 years old Clinical indication: Injury or trauma; Fall; Blunt trauma (contusions or hematomas); Prior surgery; Surgery date: 6+ months; Surgery type: Thoraic spine fixation TECHNIQUE: Imaging protocol: Radiologic exam of the chest. Views: 1 view. COMPARISON: CR XR CHEST 2V 07/03/2020 12:35 PM FINDINGS: Lungs: Unremarkable. No consolidation. Pleural spaces: Small pleural effusions bilaterally. Heart/Mediastinum: Unremarkable. No cardiomegaly. Bones/joints: Pedicle screws in the midthoracic spine. IMPRESSION: Small pleural effusions bilaterally.
--- NOTE | 2023-09-16 18:49 | CT_ITS ---
PROCEDURE INFORMATION: Exam: CT Lumbar Spine Without Contrast Exam date and time: 09/16/2023 7:07 PM Age: 68 years old Clinical indication: Injury or trauma; Fall; Blunt trauma (contusions or hematomas); Additional info: Fall, midline pain TECHNIQUE: Imaging protocol: Computed tomography of the lumbar spine without contrast. Radiation optimization: All CT scans at this facility use at least one of these dose optimization techniques: automated exposure control; mA and/or kV adjustment per patient size (includes targeted exams where dose is matched to clinical indication); or iterative reconstruction. COMPARISON: CT LUMBAR SPINE WO CON 06/11/2020 12:27 PM FINDINGS: Bones/joints: No acute fracture. Normal alignment. Disc osteophyte complex at L3-L4 with moderate canal stenosis. No severe spinal canal stenosis. Multilevel facet arthropathy with associated foraminal stenosis. Soft tissues: Unremarkable. IMPRESSION: 1. No acute findings. 2. Degenerative changes as detailed above.
--- NOTE | 2023-09-16 18:49 | CT_ITS ---
PROCEDURE INFORMATION: Exam: CT Pelvis Without Contrast; Skeletal Exam date and time: 09/16/2023 7:09 PM Age: 68 years old Clinical indication: Injury or trauma; Fall; Additional info: Fall, midline pain TECHNIQUE: Imaging protocol: Computed tomography of the pelvis without contrast. Exam focused on the skeleton. Radiation optimization: All CT scans at this facility use at least one of these dose optimization techniques: automated exposure control; mA and/or kV adjustment per patient size (includes targeted exams where dose is matched to clinical indication); or iterative reconstruction. COMPARISON: CT ABDOMEN PELVIS W CON 01/05/2020 2:49 PM FINDINGS: Bones/joints: Moderate degenerative changes of the hips, with joint space narrowing and osteophyte formation. Old, healed left inferior and superior pubic rami fractures. Degenerative changes of the sacroiliac joints. Multilevel lumbar spine degenerative disc space narrowing and osteophyte formation, with associated central canal narrowing at the L3-L4 level and bilateral neural foraminal narrowing at the visualized L4-L5 and L5-S1 levels. No acute fracture or dislocation. Soft tissues: Increased attenuation of the inferior ventral abdominal wall subcutaneous tissues, possibly edema or cellulitis. IMPRESSION: 1. No acute fracture or dislocation. 2. Old, healed left inferior and superior pubic rami fractures. 3. Increased attenuation of the inferior ventral abdominal wall subcutaneous tissues, possibly edema or cellulitis.
--- NOTE | 2023-09-16 18:49 | CT_ITS ---
PROCEDURE INFORMATION: Exam: CT Head Without Contrast Exam date and time: 09/16/2023 7:01 PM Age: 68 years old Clinical indication: Injury or trauma; Fall; Blunt trauma (contusions or hematomas); With loss of consciousness; Loss of consciousness for 30 minutes or less; Additional info: Fall, posterior impact TECHNIQUE: Imaging protocol: Computed tomography of the head without contrast. Radiation optimization: All CT scans at this facility use at least one of these dose optimization techniques: automated exposure control; mA and/or kV adjustment per patient size (includes targeted exams where dose is matched to clinical indication); or iterative reconstruction. COMPARISON: CT HEAD/BRAIN WO CON 06/11/2020 12:17 PM FINDINGS: Brain: No acute infarct. No hemorrhage. Unremarkable white matter for age. No mass effect. Cerebral ventricles: No ventriculomegaly. Paranasal sinuses: No significant inflammation. No fluid levels. Mastoid air cells: Bilateral mastoid effusions are unchanged. Bones/joints: Old deformity left lamina papyracea with fat extending into the defect is unchanged. Soft tissues: Unremarkable. IMPRESSION: 1. No acute intracranial abnormality. 2. Bilateral mastoid effusions are unchanged. Correlate for mastoiditis.
--- NOTE | 2023-09-16 18:51 | PC.NURSE ---
ATTEMPTED TO PLACE PT IN [facility], UNABLE TO TOLERATE, DR JAMES NOTIFIED. NO NEW ORDERS
--- NOTE | 2023-09-16 18:55 | ED_ITS ---
Discharge Plan Disposition Patient Disposition: Xfer Short-Term Hosp Chief Complaint: PAIN Prescriptions Prescriptions: No Action cholecalciferol (vitamin D3) 25 mcg (1,000 unit) capsule 25 mcg PO DAILY tramadol 50 mg tablet 50 mg PO TID PRN (Reason: pain) 3 Days Qty: 9 0RF lidocaine 1 EACH adhesive patch,medicated 1 each TP DAILYP PRN (Reason: pain) finasteride 5 MG tablet 5 mg PO DAILY metoprolol tartrate 100 MG tablet 50 mg PO BID losartan 100 MG tablet 100 mg PO DAILY hjnaedmte-xqvzdwwq-vfetnmz ala 1 EACH tablet 1 each PO DAILY Rx Instructions: Take 2 hours before calcium carbonate insulin regular hum U-500 conc 500 UNIT/ML solution 325 unit SQ BID aspirin 81 MG tablet,delayed release (DR/EC) 81 mg PO DAILY gabapentin 300 MG capsule 900 mg PO TID alogliptin 6.25 MG tablet 12.5 mg PO DAILY jxuea-2y-rtt-epa-fish oil 1 EACH capsule 1 each PO DAILY bumetanide 2 MG tablet 2 mg PO DAILY tamsulosin 0.4 MG capsule 0.4 mg PO HS pantoprazole 40 MG tablet,delayed release (DR/EC) 40 mg PO BID methocarbamol 750 MG tablet 750 mg PO TID venlafaxine [Effexor XR] 150 mg Capsule,Extended Release 24hr 150 mg PO DAILY ferrous sulfate [Iron (ferrous sulfate)] 325 mg (65 mg iron) Tablet 325 mg PO DAILY empagliflozin 10 mg Tablet 5 mg PO DAILY ascorbic acid (vitamin C) 500 mg Capsule 500 mg PO DAILY Referrals Follow up/Referrals: Provider,Referral, MD [Primary Care Provider] - See instructions Clinical Impressions Clinical Impression: Fall, Closed T9 spinal fracture Discharge ED Provider: Gaurav Marley General Adult HPI General Chief complaint: PAIN Stated complaint: Back pain Time Seen by Provider: 09/16/23 18:42 History of Present Illness HPI narrative: Patient is a 68-year-old male with past medical history of insulin-dependent diabetes, venous stasis ulcers of the bilateral lower extremities, previous thoracic fracture status post fusion, obesity who presents emergency department for evaluation of traumatic injury sustained in a fall. Patient has a left- sided meniscal tear in his knee and he normally gets around on a cane for which his knee frequently gives out. He has fallen multiple times recently. Today patient had a ground-level fall striking his posterior head and back resulting in episodes of loss of consciousness. Patient is also complaining of severe b ack pain over his previous surgical site. There is associated knee pain, no other acute traumatic complaints at this time Related Data Home Medications Medication Instructions Recorded Confirmed bictegravir 50 mg-emtricitabine 1 each PO DAILY ANTI-RETROVIRAL 11/13/18 09/16/23 200 mg-tenofovir alafenam 25 mg tablet finasteride 5 mg tablet 5 mg PO DAILY Prostate 11/13/18 09/16/23 insulin regular hum U-500 conc 500 325 unit SQ BID Diabetes 11/13/18 09/16/23 unit/mL subcutaneous soln lidocaine 5 % topical patch 1 each TP DAILYP PRN pain 11/13/18 09/16/23 losartan 100 mg tablet 100 mg PO DAILY High blood pressure 11/13/18 09/16/23 metoprolol tartrate 100 mg tablet 50 mg PO BID HIGH BLOOD 11/13/18 09/16/23 PRESSURE/HEART alogliptin 6.25 mg tablet 12.5 mg PO DAILY Diabetes 08/02/19 09/16/23 aspirin 81 mg tablet,delayed 81 mg PO DAILY CAD 08/02/19 09/16/23 release gabapentin 300 mg capsule 900 mg PO TID pain 08/02/19 09/16/23 omega3 300 mg-dha,epa 250 mg-other 1 each PO DAILY Supplement 08/03/19 09/16/23 omega 3s-fish oil 1,000 mg capsule bumetanide 2 mg tablet 2 mg PO DAILY Fluid 01/06/20 09/16/23 tamsulosin 0.4 mg capsule 0.4 mg PO HS PROSTATE 01/06/20 09/16/23 methocarbamol 750 mg tablet 750 mg PO TID Pain 11/26/20 09/16/23 pantoprazole 40 mg tablet,delayed 40 mg PO BID GI 11/26/20 09/16/23 release cholecalciferol (vitamin D3) 25 25 mcg PO DAILY 12/30/20 09/16/23 mcg (1,000 unit) capsule ascorbic acid (vitamin C) 500 mg 500 mg PO DAILY 09/16/23 09/16/23 capsule empagliflozin 10 mg tablet 5 mg PO DAILY 09/16/23 ferrous sulfate 325 mg (65 mg 325 mg PO DAILY 09/16/23 09/16/23 iron) tablet (Iron (ferrous sulfate)) venlafaxine 150 mg 150 mg PO DAILY 09/16/23 09/16/23 capsule,extended release 24 hr (Effexor XR) Previous Rx's Medication Instructions Recorded tramadol 50 mg tablet 50 mg PO TID PRN pain 3 days #9 03/09/21 tabs Allergies Allergy/AdvReac Type Severity Reaction Status Date / Time SANDRA Inhibitors Allergy Unknown Unknown Verified 04/04/21 15:53 allergy reaction clofibrate Allergy Unknown Unknown Verified 04/04/21 15:53 allergy reaction enalapril Allergy Unknown Unknown Verified 04/04/21 15:53 allergy reaction erythromycin base Allergy Unknown Unknown Verified 04/04/21 15:53 allergy reaction gemfibrozil Allergy Unknown Unknown Verified 04/04/21 15:53 allergy reaction hepatitis A virus vaccine Allergy Unknown Unknown Verified 04/04/21 15:53 allergy reaction hydralazine Allergy Unknown Unknown Verified 04/04/21 15:53 allergy reaction Macrolide Antibiotics Allergy Unknown Unknown Verified 04/04/21 15:53 allergy reaction pravastatin [From Pravachol] Allergy Unknown Unknown Verified 04/04/21 15:53 allergy reaction Nnoimxv-CPR-GaN Reductase Allergy Unknown Unknown Verified 04/04/21 15:53 Inhibitor allergy [Eimfpvq-Dne-Gxn Reductase reaction Inhibitor] [facility] Disclaimer: The information contained in this section may have been updated after the patient was seen, as this information can be updated by other users. Social History Smoking Status: Never smoker second hand exposure: No alcohol intake: never substance use type: denies use current occupational status: student Travel in the last 8 weeks: None household members: spouse and family housing: house current occupational exposures/hazards: No caffeine: Yes ROS Obtained: Yes Systems reviewed as appropriate & no additional complaints except as documented Physical Exam General General appearance: alert and in no apparent distress Head Head exam: atraumatic and normocephalic Eye Eye exam: Present PERRL and EOMI ENT ENT exam: Present mucous membranes moist Neck Neck exam: Present normal inspection and tenderness (Midline C/T/L-spine.) Chest Chest inspection: Present normal inspection and symmetric chest wall rise Respiratory Respiratory exam: Present normal lung sounds bilaterally; Absent respiratory distress Cardiovascular Cardiovascular exam: Present regular rate and normal rhythm Abdominal Exam Abdominal exam: Present soft; Absent tenderness Extremities Exam Extremities exam: Present other (Bilateral venous stasis ulcers bilateral lower extremities. There is tenderness over the left knee. No tenderness over the lateral hips.) Neurological Exam Neurological exam: Present alert and CN II-XII intact Psychiatric Psychiatric exam: Present normal affect Skin Skin exam: Present warm and dry Medical Decision Making Valentin Inquiry Pt receiving controlled substance: No Vital Signs: 09/16/23 18:42 09/16/23 19:30 09/16/23 19:50 Temperature 97.9 F Temperature Source Oral Pulse Rate 77 76 Pulse Rate [Radial] 78 Respiratory Rate 18 Blood Pressure 89/55 L 94/56 L Blood Pressure [Right Arm] 91/57 L Blood Pressure Mean [Right Arm] 68 Blood Pressure Source [Right Arm] Automatic Cuff Blood Pressure Position [Right Arm] Supine 02 Sat by Pulse Oximetry 95 91 L 90 L Oxygen Delivery Method Room Air Room Air Room Air Lab Data Lab Results 09/16/23 18:48: WBC 12.5 H, RBC 5.53, Hgb 16.8, Hct 49.7, MCV 89.8, MCH 30.3, MCHC 33.7, RDW 15.0, Plt Count 273, MPV 8.4, Neut % (Auto) 81.0 H, Lymph % (Auto) 11.0, [place] % (Auto) 5.0, Eos % (Auto) 2.4, Baso % (Auto) 0.5, Neut # (Auto) 10.1 H, Lymph # (Auto) 1.4, [place] # (Auto) 0.6, Eos # (Auto) 0.3, Baso # (Auto) 0.1, Sodium 136, Potassium 4.1, Chloride 93 L, Carbon Dioxide 37 H, Anion Gap 10.1, BUN 19, Creatinine 1.80 H, Estimated Creat Clear 68, Estimated GFR 38 L, Est GFR ( Amer) 45 L, Glucose 196 H, Calcium 8.5, Total Bilirubin 0.8, AST 29, ALT 21, Alkaline Phosphatase 233 H, Total Protein 7.9, Albumin 3.8, Globulin 4.1 H, Albumin/Globulin Ratio 0.9 L 09/16/23 18:48 09/16/23 18:48 Orders (Tests/Meds): ED MEDICATIONS Generic Name Dose Route Start Last Admin Trade Name Freq PRN Reason Stop Dose Admin Lactated Ringer's 1,000 mls @ 999 mls/hr 09/16/23 20:53 09/16/23 21:05 Lactated Ringer's 1000 Ml Bag IV 09/16/23 21:53 999 mls/hr .Q1H1M ONE Administration Sodium Chloride 10 ml 09/16/23 19:16 09/16/23 19:18 Sodium Chloride 0.9% 10ml Syr (Rad Only) IV 10/16/23 19:15 10 ml NEEDED PRN Administration Maintain IV Site Discontinued Medications Generic Name Dose Route Start Last Admin Trade Name Jarrod PRN Reason Stop Dose Admin Acetaminophen 1,000 mg 09/16/23 18:49 09/16/23 19:34 Acetaminophen 1,000mg/100ml Vial IV 09/16/23 18:50 1,000 mg ONCE ONE Administration Fentanyl Citrate 50 mcg 09/16/23 20:27 09/16/23 20:31 Fentanyl 100mcg/2ml Vial IV 09/16/23 20:28 50 mcg ONCE ONE Administration Fentanyl Citrate 50 mcg 09/16/23 21:17 09/16/23 21:19 Fentanyl 100mcg/2ml Vial IV 09/16/23 21:18 50 mcg ONCE ONE Administration Iopamidol 90 ml 09/16/23 19:16 09/16/23 19:17 Iopamidol-370 (76%);100ml Bottle IV 09/16/23 19:17 90 ml ONCE ONE Administration Morphine Sulfate 4 mg 09/16/23 18:49 09/16/23 19:30 Morphine 4mg/Ml Syringe IV 09/16/23 18:50 Not Given ONCE ONE Sodium Chloride 50 ml 09/16/23 19:16 09/16/23 19:17 0.9 % Sodium Chloride 50 Ml Vial IV 09/16/23 19:17 50 ml ONCE ONE Administration ORDERS Category Date Time Status CT angio head Stat Cat Scan 09/16/23 18:[address] angio neck Stat Cat Scan 09/16/23 18:[address] bony pelvis Stat Cat Scan 09/16/23 18:[address] cervical spine wo con Stat Cat Scan 09/16/23 18:[address] head/brain wo con Stat Cat Scan 09/16/23 18:[address] lumbar spine wo con Stat Cat Scan 09/16/23 18:[address] thoracic spine wo con Stat Cat Scan 09/16/23 18:49 Completed CXR --portable [XR chest portable] Stat Exams 09/16/23 18:49 Completed Knee XR left 2 views [XR knee LT 2V] Stat Exams 09/16/23 18:49 Completed CBC w/Auto Diff [Complete Blood Count Auto Diff] Stat Lab 09/16/23 18:48 Completed CMP [Comprehensive Metabolic Panel] Stat Lab 09/16/23 18:48 Completed Medical Decision Narrative: In summary patient is a 68-year-old male with past medical history described above presents emergency department for evaluation of traumatic injury sustained in a mechanical fall. Patient is hemodynamically stable upon arrival, soft blood pressures in the setting of recent medication down titration and are at patient's baseline. Differential includes intracranial hemorrhage, carotid or vertebral artery dissection, spinal fracture, among others. Trauma survey will be conducted with noncontrasted CT scan of the head, CT C/T/L-spine, CTA head and neck, plain film of the left knee and chest. Initial interventions include morphine and IV Tylenol. Initial workup reviewed by me, hematologic labs are remarkable for FRANNIE which will be repleted with 1 L crystalloid. Trauma survey remarkable for oblique fracture of T9 extending into the right inferior endplate with fracture of the anterior ankylosis at T9/T7 with widening of the disc space. 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 head shows bilateral mastoid effusions which are unchanged from CT imaging multiple years ago. No acute intracranial abnormality. Case was discussed with [facility] spine surgery Dr. Garcia who recommends head of bed 15 to 30 degrees, logroll precautions as this is a potentially unstable fracture. Patient was graciously excepted to [facility] for continued evaluation at this time. CT bony pelvis formal read pending at time of dictation. Critical Care Critical Care Time Critical Care Time: Yes Attestation: On 09/16/23, the high probability of a clinically significant, sudden or life threatening deterioration of the following system(s) required my full and direct attention, intervention and personal management. The time I documented below is in addition to time spent performing reported procedures but includes the following listed in this critical care notation. Total Time Total Critical Care Time: 35
--- NOTE | 2023-09-16 18:57 | CT_ITS ---
PROCEDURE INFORMATION: Exam: CTA Head With Contrast, Arteriography Exam date and time: 09/16/2023 7:14 PM Age: 68 years old Clinical indication: Injury or trauma; Fall; Blunt trauma; Head and neck; Additional info: Fall, intermittent loc TECHNIQUE: Imaging protocol: Computed tomographic angiography of the head with contrast. Exam focused on the arteries. 3D rendering (Not supervised by radiologist): MIP and/or 3D reconstructed images were created by the technologist. Radiation optimization: All CT scans at this facility use at least one of these dose optimization techniques: automated exposure control; mA and/or kV adjustment per patient size (includes targeted exams where dose is matched to clinical indication); or iterative reconstruction. Contrast material: ISOVUE 370; Contrast volume: 90 ml; Contrast route: INTRAVENOUS (IV); COMPARISON: CT HEAD/BRAIN WO CON 09/16/2023 7:01 PM FINDINGS: ANTERIOR CIRCULATION: Right internal carotid artery: Intracranial segment is patent with no significant stenosis. No aneurysm. Right middle cerebral artery: No occlusion or significant stenosis. No aneurysm. Right anterior cerebral artery: No occlusion or significant stenosis. No aneurysm. Left internal carotid artery: Intracranial segment is patent with no significant stenosis. No aneurysm. Left middle cerebral artery: No occlusion or significant stenosis. No aneurysm. Left anterior cerebral artery: No occlusion or significant stenosis. No aneurysm. POSTERIOR CIRCULATION: Right vertebral artery: No occlusion or significant stenosis. No aneurysm. Left vertebral artery: No occlusion or significant stenosis. No aneurysm. Basilar artery: No occlusion or significant stenosis. No aneurysm. Right posterior cerebral artery: No occlusion or significant stenosis. No aneurysm. Left posterior cerebral artery: The left PHOTOENGRAVER has origin. Brain: No definite mass, mass effect, or midline shift. Cerebral ventricles: No ventriculomegaly. Bones/joints: Unremarkable. No acute fracture. Soft tissues: Unremarkable. IMPRESSION: No large vessel stenosis or occlusion.
--- NOTE | 2023-09-16 18:57 | CT_ITS ---
PROCEDURE INFORMATION: Exam: CTA Neck With Contrast Exam date and time: 09/16/2023 7:14 PM Age: 68 years old Clinical indication: Injury or trauma; Fall; Blunt trauma; Head and neck; Additional info: Fall, intermittent loc TECHNIQUE: Imaging protocol: Computed tomographic angiography of the neck with contrast. Exam focused on the cervical segments of the vasculature. 3D rendering (Not supervised by radiologist): MIP and/or 3D reconstructed images were created by the technologist. Radiation optimization: All CT scans at this facility use at least one of these dose optimization techniques: automated exposure control; mA and/or kV adjustment per patient size (includes targeted exams where dose is matched to clinical indication); or iterative reconstruction. Contrast material: ISOVUE 370; Contrast volume: 90 ml; Contrast route: INTRAVENOUS (IV); COMPARISON: CT CERVICAL SPINE WO CON 09/16/2023 7:02 PM FINDINGS: Right common carotid artery: No stenosis. No dissection or occlusion. Right internal carotid artery: Atherosclerotic changes proximal right internal carotid artery are seen without significant stenosis. Right external carotid artery: No occlusion or stenosis of the origin. Left common carotid artery: No stenosis. No dissection or occlusion. Left internal carotid artery: Atherosclerotic changes proximal left internal carotid artery are seen without significant stenosis. Left external carotid artery: No occlusion or stenosis of the origin. Right vertebral artery: The right vertebral artery is non dominant and diffusely small in caliber with the majority of its flow terminating in the PICA which can be seen as an anatomic variant Left vertebral artery: No stenosis. No dissection or occlusion. Aorta: Aneurysm of the ascending thoracic aorta measuring 4.2 cm. Minimal atherosclerosis. Pulmonary arteries: Enlarged main pulmonary artery suggests pulmonary hypertension. Mastoid air cells: Bilateral mastoid effusions again seen. Soft tissues: Normal. No significant soft tissue swelling. Bones/joints: No acute fracture. IMPRESSION: 1. No occlusion or significant stenosis. 2. Aneurysm of the ascending thoracic aorta measuring 4.2 cm. REFERENCES: NASCET CRITERIA. The degree of stenosis in the cervical segment of the internal carotid artery is based on NASCET criteria. Normal is no stenosis. Mild is less than 50% stenosis. Moderate is 50-69% stenosis. Severe is 70% to 99% stenosis. Total occlusion is no detectable patent lumen.
--- NOTE | 2023-09-16 18:59 | PC.NURSE ---
RADIOLOGY NOTIFIED OF CT SCANS
[2023-09-16 19:06] LABS: Basophils # 0.1 K/mm3 (0-0.2); Basophils % 0.5 % (0.1-2.0); Eosinophils # 0.3 K/mm3 (0.0-0.4); Eosinophils % 2.4 % (0.1-12.0); Hematocrit 49.7 % (42.0-52.0); Hemoglobin 16.8 g/dL (14.1-18.0); Lymphocytes # 1.4 K/mm3 (0.7-4.5); Mean Corpuscular HGB Conc 33.7 g/dL (31.8-35.4); Mean Corpuscular Hemoglobin 30.3 pg (27.0-31.2); Mean Corpuscular Volume 89.8 fl (80-94); Mean Platelet Volume 8.4 fl (7.4-10.4); Monocytes # 0.6 K/mm3 (0.1-1.0); Neutrophils # 10.1 K/mm3 (1.8-7.8); Platelet Count 273 K/mm3 (142-424); Red Blood Count 5.53 M/mm3 (4.60-6.20); White Blood Count 12.5 K/mm3 (4.8-10.8)
[2023-09-16 19:11] LABS: Alanine Aminotransferase 21 U/L (12-78); Albumin Level 3.8 g/dl (3.5-5.0); Albumin/Globulin Ratio 0.9 (1.1-1.8); Alkaline Phosphatase 233 U/L (38-126); Anion Gap 10.1 mEq/L (5-15); Aspartate Amino Transferase 29 U/L (17-59); Bilirubin,Total 0.8 mg/dl (0.2-1.3); Blood Urea Nitrogen 19 mg/dl (9-20); Calcium 8.5 mg/dl (8.4-10.2); Carbon Dioxide 37 mmol/L (22.0-30.0); Chloride 93 mmol/L (98-107); Creatinine Clearance Estimated 68 mL/min (50-200); Estimated Glomerular Filt Rate 38 ml/min (>60); GFR (African American) 45 ML/MIN (>60); Globulin 4.1 g/dL (1.3-3.2); Glucose 196 mg/dl (74-100); Potassium 4.1 mmoL/L (3.5-5.1); Sodium 136 mmol/L (136-145); Total Protein,Serum 7.9 g/dl (6.3-8.2)
[2023-09-16] MEDS: 0.9 % SODIUM CHLORIDE 50 ML VIAL IV (19:17)
[2023-09-16] MEDS: IOPAMIDOL-370 (76%);100ML BOTTLE 90 ML IV (19:17)
[2023-09-16] MEDS: SODIUM CHLORIDE 0.9% 10ML SYR (RAD ONLY) 10 ML IV (19:18)
--- NOTE | 2023-09-16 19:20 | PC.NURSE ---
patient to CT
--- NOTE | 2023-09-16 19:28 | PC.NURSE ---
Discussed with provider about morphine order with patient having episodes of altered consciousness and systolic BP of 91. Order discontinued at the moment.
[2023-09-16] MEDS: ACETAMINOPHEN 1,000MG/100ML VIAL 1000 MG IV (19:34)
[2023-09-16] MEDS: FENTANYL 100MCG/2ML VIAL 50 MCG IV ×2 (20:31→21:19)
[2023-09-16] MEDS: LACTATED RINGERS 1000ML 1,000 ML 999 ML IV (21:05)
--- NOTE | 2023-09-16 21:38 | PC.NURSE ---
Dr. Marley on phone with Dr. Garcia from regarding tx there
--- NOTE | 2023-09-16 21:54 | PC.NURSE ---
Spoke to Sharona Castro at EMS regarding tx to ER. She advised they would be up here shortly
--- NOTE | 2023-09-16 22:04 | PC.NURSE ---
Nurse to nurse report given to Leatha PALAFOX at ER.
== END 2023-09-16 22:26 | disposition short-term general hospital (02) ==
PROVIDERS: Emergency Provider Emergency Medicine
DX: S22.078A Other fracture of T9-T10 vertebra, initial encounter for closed fracture (principal); S06.0X9A Concussion with loss of consciousness of unspecified duration, initial encounter; E11.9 Type 2 diabetes mellitus without complications; I87.333 Chronic venous hypertension (idiopathic) with ulcer and inflammation of bilateral lower extremity; E66.9 Obesity, unspecified; Z68.36 Body mass index [BMI] 36.0-36.9, adult; Z79.4 Long term (current) use of insulin; W18.39XA Other fall on same level, initial encounter
CPT/HCPCS: 70450; 70496; 70498; 71045; 72125; 72128; 72131; 72192; 73560; 80053; 85025; 96361; 96374; 96375; 96376; 99291; J0131; Q9967

== ENCOUNTER 2024-03-15 02:50 | Observation (INO) | payer MEDICARE, OTHER, SELFPAY ==
[2024-03-15] VITALS (12 sets, daily range): BP systolic 91–129; BP diastolic 52–76; PULSE 62–115; RESP 13–20; TEMP 35.9–37.1; O2SAT 81–95; BMI 36.5
--- NOTE | 2024-03-15 02:55 | PC.NURSE ---
MD AT BEDSIDE,FAMILY AT BEDSIDE
--- NOTE | 2024-03-15 03:01 | CT_ITS ---
PROCEDURE INFORMATION: Exam: CT Head Without Contrast Exam date and time: 03/15/2024 3:16 AM Age: 68 years old Clinical indication: Injury or trauma; Fall; Blunt trauma (contusions or hematomas) TECHNIQUE: Imaging protocol: Computed tomography of the head without contrast. Radiation optimization: All CT scans at this facility use at least one of these dose optimization techniques: automated exposure control; mA and/or kV adjustment per patient size (includes targeted exams where dose is matched to clinical indication); or iterative reconstruction. COMPARISON: 09/16/2023 FINDINGS: Limitations: Motion artifact - mild to moderate. Brain: Moderate atrophy. No definite intracranial hemorrhage. No definite mass. Few scattered foci of decreased attenuation within periventricular/subcortical white matter. No definite edema. Cerebral ventricles: No hydrocephalus. Paranasal sinuses: No acute sinusitis. Mastoid air cells: Partial opacification of mastoids. Orbital cavities: Unremarkable as visualized. Chronic deformity floor, medial wall of LEFT orbit. Bones: No acute fracture. Soft tissues: Mild scalp swelling. Vasculature: Atherosclerotic disease of intracranial arteries. IMPRESSION: 1. No definite intracranial hemorrhage. 2. Probable chronic microvascular ischemic changes. 3. Mastoid disease.
--- NOTE | 2024-03-15 03:01 | XR_ITS ---
PROCEDURE INFORMATION: Exam: XR Left Shoulder Exam date and time: 03/15/2024 3:39 AM Age: 68 years old Clinical indication: Injury or trauma; Fall; Blunt trauma (contusions or hematomas); Shoulder; Left; Additional info: Fall, ttp L ac w/ deformity TECHNIQUE: Imaging protocol: Radiologic exam of the left shoulder. Views: 2 or more views. COMPARISON: CR XR SHOULDER LT MIN 2V 03/15/2024 3:39 AM FINDINGS: Bones/joints: Probable impacted fracture of the humeral head. This is more convincing on this view compared to the other views. Soft tissues: Normal. IMPRESSION: Probable impacted fracture of the humeral head. This is more convincing on this view compared to the other views.
--- NOTE | 2024-03-15 03:01 | XR_ITS ---
PROCEDURE INFORMATION: Exam: XR Left Humerus Exam date and time: 03/15/2024 3:39 AM Age: 68 years old Clinical indication: Injury or trauma; Fall; Blunt trauma (contusions or hematomas); Shoulder; Left; Additional info: Fall ttp L humerus TECHNIQUE: Imaging protocol: Radiologic exam of the left humerus. Views: 2 or more views. COMPARISON: CR XR SHOULDER LT MIN 2V 03/15/2024 3:39 AM FINDINGS: Bones/joints: Probable impacted fracture of the humeral head. Consider CT for further characterization. Soft tissues: Normal. IMPRESSION: Probable impacted fracture of the humeral head. Consider CT for further characterization.
--- NOTE | 2024-03-15 03:01 | CT_ITS ---
PROCEDURE INFORMATION: Exam: CT Cervical Spine Without Contrast Exam date and time: 03/15/2024 3:35 AM Age: 68 years old Clinical indication: Injury or trauma; Fall; Blunt trauma TECHNIQUE: Imaging protocol: Computed tomography of the cervical spine without contrast. Radiation optimization: All CT scans at this facility use at least one of these dose optimization techniques: automated exposure control; mA and/or kV adjustment per patient size (includes targeted exams where dose is matched to clinical indication); or iterative reconstruction. COMPARISON: CT CERVICAL SPINE WO CON 09/16/2023 7:02 PM FINDINGS: Vertebrae: No acute fracture. Normal alignment. Prominent anterior osteophytes. 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 Degenerative changes of atlantodental articulation. Early to mild degenerative disc disease within mid cervical spine. Mild to moderate degenerative disc disease within lower cervical spine. Mastoid air cells: Partial opacification of mastoids. Lungs: Unremarkable as visualized. Vasculature: Mild atherosclerotic disease. Soft tissues: Unremarkable. IMPRESSION: 1. No fracture. 2. Mastoid disease.
--- NOTE | 2024-03-15 03:01 | XR_ITS ---
PROCEDURE INFORMATION: Exam: XR Left Clavicle, Complete Exam date and time: 03/15/2024 3:39 AM Age: 68 years old Clinical indication: Injury or trauma; Fall; Blunt trauma (contusions or hematomas); Shoulder; Left TECHNIQUE: Imaging protocol: Radiologic exam of the left clavicle. Complete exam. Views: Any number of views. COMPARISON: CR XR CLAVICLE LT 03/15/2024 3:39 AM FINDINGS: Bones/joints: The clavicle is intact. The humeral head is misshapen which could represent an impacted nondisplaced fracture, consider CT for further evaluation as clinically indicated. Soft tissues: Normal. IMPRESSION: The clavicle is intact. The humeral head is misshapen which could represent an impacted nondisplaced fracture, consider CT for further evaluation as clinically indicated.
--- NOTE | 2024-03-15 03:04 | XR_ITS ---
PROCEDURE INFORMATION: Exam: XR Chest Exam date and time: 03/15/2024 3:39 AM Age: 68 years old Clinical indication: Injury or trauma; Fall; Blunt trauma (contusions or hematomas) TECHNIQUE: Imaging protocol: Radiologic exam of the chest. Views: 1 view. COMPARISON: CR XR CHEST PORTABLE 09/16/2023 7:15 PM FINDINGS: Lungs: Unremarkable. No consolidation. Pleural spaces: Unremarkable. No pleural effusion. No pneumothorax. Heart/Mediastinum: Unremarkable. No cardiomegaly. The mediastinum is widened. Bones/joints: Unremarkable. IMPRESSION: Widened mediastinum, this may be secondary to obesity and hypoinflation, consider CT of the chest for further evaluation in this patient with history of trauma.
--- NOTE | 2024-03-15 03:06 | ECG_ITS ---
APPROVED REPORT Exam: Resting ECG HR:74 bpm ECG Measurements Heart Rate 74 AXES WV 202 P 64 QRSd 140 QRS 2 QT 433 T 25 QTc 460 Conclusion SINUS RHYTHM RIGHT BUNDLE BRANCH BLOCK [120+ ms QRS DURATION, UPRIGHT V1, 40+ ms S IN I/aVL/V4/V5/V6] ABNORMAL ECG Electronically signed by : SUNITA WOODS, 03/16/2024 06:41:53
[2024-03-15 03:19] LABS: Basophils # 0.1 K/mm3 (0-0.2); Basophils % 0.7 % (0.1-2.0); Eosinophils # 0.4 K/mm3 (0.0-0.4); Eosinophils % 3.2 % (0.1-12.0); Hematocrit 45.2 % (42.0-52.0); Hemoglobin 14.5 g/dL (14.1-18.0); Lymphocytes # 1.6 K/mm3 (0.7-4.5); Mean Corpuscular HGB Conc 32.1 g/dL (31.8-35.4); Mean Corpuscular Volume 87.2 fl (80-94); Mean Platelet Volume 7.5 fl (7.4-10.4); Monocytes # 0.5 K/mm3 (0.1-1.0); Monocytes % 4.1 % (1.7-9.3); Neutrophils # 9.5 K/mm3 (1.8-7.8); Platelet Count 283 K/mm3 (142-424); Red Blood Count 5.19 M/mm3 (4.60-6.20); Red Cell Distribution Width 15.7 % (11.5-17.5)
[2024-03-15] MEDS: ONDANSETRON 4MG/2ML VIAL 4 MG IV ×2 (03:22→06:30)
[2024-03-15] MEDS: RINGERS SOLUTION,LACTATED 500 ML 250 ML IV (03:22)
[2024-03-15] MEDS: FENTANYL 250MCG/5ML VIAL 50 MCG IV ×3 (03:23→04:47)
--- NOTE | 2024-03-15 03:24 | [facility].EDGENADL ---
Discharge Plan Disposition Patient Disposition: Admitted Prescriptions Prescriptions: No Action cholecalciferol (vitamin D3) 25 mcg (1,000 unit) capsule 25 mcg PO DAILY tramadol 50 mg tablet 50 mg PO TID PRN (Reason: pain) 3 Days Qty: 9 0RF lidocaine 1 EACH adhesive patch,medicated 1 each TP DAILYP PRN (Reason: pain) finasteride 5 MG tablet 5 mg PO DAILY metoprolol tartrate 100 MG tablet 50 mg PO BID losartan 100 MG tablet 100 mg PO DAILY mqplogdht-rzblutrz-dpoygee ala 1 EACH tablet 1 each PO DAILY Rx Instructions: Take 2 hours before calcium carbonate insulin regular hum U-500 conc 500 UNIT/ML solution 325 unit SQ BID aspirin 81 MG tablet,delayed release (DR/EC) 81 mg PO DAILY gabapentin 300 MG capsule 900 mg PO TID alogliptin 6.25 MG tablet 12.5 mg PO DAILY xuufa-0o-efr-epa-fish oil 1 EACH capsule 1 each PO DAILY bumetanide 2 MG tablet 2 mg PO DAILY tamsulosin 0.4 MG capsule 0.4 mg PO HS pantoprazole 40 MG tablet,delayed release (DR/EC) 40 mg PO BID methocarbamol 750 MG tablet 750 mg PO TID venlafaxine [Effexor XR] 150 mg Capsule,Extended Release 24hr 150 mg PO DAILY ferrous sulfate [Iron (ferrous sulfate)] 325 mg (65 mg iron) Tablet 325 mg PO DAILY empagliflozin 10 mg Tablet 5 mg PO DAILY ascorbic acid (vitamin C) 500 mg Capsule 500 mg PO DAILY Referrals Follow up/Referrals: Provider,Referral, MD [Primary Care Provider] - See instructions Clinical Impressions Clinical Impression: Closed fracture of neck of left humerus, Fall Discharge ED Provider: Prashanth Mendez General Adult HPI General Chief complaint: Fall Stated complaint: Fall Time Seen by Provider: 03/15/24 03:01 Mode of Arrival: EMS Source of Information: Patient, Spouse and EMS Limitations: Physical Limitations Description of Symptoms (Recalled from ER Triage Doc. by RN): Pt. presented to the ED via EMS with c/o left shoulder injury. Pt. got up out of his chair to get the remote and fell backwards landing on left arm and shoulder. History of Present Illness HPI narrative: 68-year-old female with multiple chronic medical conditions including poorly controlled type 2 diabetes, previous spine fracture, meniscus injury, uses walker to ambulate, COPD presents to the ER with EMS and family after fall. According to his , he stood up out of a chair and turned, losing his balance and falling backwards landing primarily on the left arm/shoulder. Patient is complaining of pain in the left humerus and left shoulder. He denies hitting his head or losing consciousness, he does take daily aspirin. Patient denies new pain in his other extremities, back, chest, or abdomen. He denies any difficulty breathing or chest pain. He states he did not get lightheaded, have headache, or have chest pain prior to his fall. He did not syncopize. Related Data Home Medications Medication Instructions Recorded Confirmed bictegravir 50 mg-emtricitabine 1 each PO DAILY ANTI-RETROVIRAL 11/13/18 09/16/23 200 mg-tenofovir alafenam 25 mg tablet finasteride 5 mg tablet 5 mg PO DAILY Prostate 11/13/18 09/16/23 insulin regular hum U-500 conc 500 325 unit SQ BID Diabetes 11/13/18 09/16/23 unit/mL subcutaneous soln lidocaine 5 % topical patch 1 each TP DAILYP PRN pain 11/13/18 09/16/23 losartan 100 mg tablet 100 mg PO DAILY High blood pressure 11/13/18 09/16/23 metoprolol tartrate 100 mg tablet 50 mg PO BID HIGH BLOOD 11/13/18 09/16/23 PRESSURE/HEART alogliptin 6.25 mg tablet 12.5 mg PO DAILY Diabetes 08/02/19 09/16/23 aspirin 81 mg tablet,delayed 81 mg PO DAILY CAD 08/02/19 09/16/23 release gabapentin 300 mg capsule 900 mg PO TID pain 08/02/19 09/16/23 omega3 300 mg-dha,epa 250 mg-other 1 each PO DAILY Supplement 08/03/19 09/16/23 omega 3s-fish oil 1,000 mg capsule bumetanide 2 mg tablet 2 mg PO DAILY Fluid 01/06/20 09/16/23 tamsulosin 0.4 mg capsule 0.4 mg PO HS PROSTATE 01/06/20 09/16/23 methocarbamol 750 mg tablet 750 mg PO TID Pain 11/26/20 09/16/23 pantoprazole 40 mg tablet,delayed 40 mg PO BID GI 11/26/20 09/16/23 release cholecalciferol (vitamin D3) 25 25 mcg PO DAILY 12/30/20 09/16/23 mcg (1,000 unit) capsule ascorbic acid (vitamin C) 500 mg 500 mg PO DAILY 09/16/23 09/16/23 capsule empagliflozin 10 mg tablet 5 mg PO DAILY 09/16/23 ferrous sulfate 325 mg (65 mg 325 mg PO DAILY 09/16/23 09/16/23 iron) tablet (Iron (ferrous sulfate)) venlafaxine 150 mg 150 mg PO DAILY 09/16/23 09/16/23 capsule,extended release 24 hr (Effexor XR) Previous Rx's Medication Instructions Recorded tramadol 50 mg tablet 50 mg PO TID PRN pain 3 days #9 03/09/21 tabs Allergies Allergy/AdvReac Type Severity Reaction Status Date / Time SANDRA Inhibitors Allergy Unknown Unknown Verified 04/04/21 15:53 allergy reaction clofibrate Allergy Unknown Unknown Verified 04/04/21 15:53 allergy reaction enalapril Allergy Unknown Unknown Verified 04/04/21 15:53 allergy reaction erythromycin base Allergy Unknown Unknown Verified 04/04/21 15:53 allergy reaction gemfibrozil Allergy Unknown Unknown Verified 04/04/21 15:53 allergy reaction hepatitis A virus vaccine Allergy Unknown Unknown Verified 04/04/21 15:53 allergy reaction hydralazine Allergy Unknown Unknown Verified 04/04/21 15:53 allergy reaction Macrolide Antibiotics Allergy Unknown Unknown Verified 04/04/21 15:53 allergy reaction pravastatin [From Pravachol] Allergy Unknown Unknown Verified 04/04/21 15:53 allergy reaction Odbuwhi-ILS-NjJ Reductase Allergy Unknown Unknown Verified 04/04/21 15:53 Inhibitor allergy [Txstyik-Lzt-Rox Reductase reaction Inhibitor] [facility] Disclaimer: The information contained in this section may have been updated after the patient was seen, as this information can be updated by other users. Social History Smoking Status: Never smoker second hand exposure: No alcohol intake: never substance use type: denies use current occupational status: student Travel in the last 8 weeks: None household members: spouse and family housing: house current occupational exposures/hazards: No caffeine: Yes ROS Obtained: Yes All systems reviewed & no additional complaints except as documented Constitutional Constitutional: Denies chills, Denies fever(s), Denies headache(s) and Denies weakness Eyes Eyes: Denies change in vision ENT Ears, Nose, Mouth, and Throat: Denies dizziness, Denies headache(s), Denies nasal congestion and Denies sore throat Cardiovascular Cardiovascular: Denies chest pain, Denies dyspnea and Reports leg ulcers (Chronic) Respiratory Respiratory: Denies cough and Denies dyspnea Gastrointestinal Gastrointestingal: Denies abdominal pain, constipation, diarrhea, nausea or vomiting Genitourinary Male Genitourinary: Denies difficulty urinating Musculoskeletal Musculoskeletal: Reports arthralgias (Left shoulder/humerus), Denies myalgias, Denies numbness and Denies tingling Integumentary/Breasts Skin/Breast: Denies change in pigmentation Neurologic Neurologic: Denies dizziness, Denies headache(s), Denies numbness, Denies tingling and Denies weakness Physical Exam General General appearance: alert and in no apparent distress Head Head exam: atraumatic and normocephalic Eye Eye exam: Present PERRL and EOMI ENT ENT exam: Present mucous membranes moist Neck Neck exam: Present normal inspection and full ROM Chest Chest inspection: Present symmetric chest wall rise Respiratory Respiratory exam: Present normal lung sounds bilaterally and other (Saturating well on home 2 L nasal cannula); Absent respiratory distress, wheezes or stridor Cardiovascular Cardiovascular exam: Present regular rate (Tachycardia that was present on triage vitals has resolved on my exam) and normal rhythm Abdominal Exam Abdominal exam: Present soft; Absent distention, tenderness, guarding or rebound Comment: Old bruise from previous fall on anterior abdomen superior to the umbilicus Extremities Exam Extremities exam: Present tenderness (Tenderness to palpation over the left AC joint, tenderness to palpation of the left proximal humerus) and other (Bulging over the left AC joint); Absent full ROM (Range of motion limited at the left shoulder secondary to pain) Neurological Exam Neurological exam: Present alert and oriented X3; Absent motor sensory deficit Psychiatric Psychiatric exam: Present normal affect and normal mood Skin Skin exam: Present warm, dry and other (Chronic ulcers on the bilateral distal lower extremities, neurovascularly intact distally) Medical Decision Making Medical Records Medical records reviewed: Yes I reviewed the patient's medical records. MR Comment: Patient has previously been seen by podiatry in 2020 for right fibula fracture, cellulitis, he also was seen in September of this year in our ER for T9 spine fracture Valentin Inquiry Pt receiving controlled substance: No Vital Signs: 03/15/24 02:50 03/15/24 03:14 03/15/24 03:55 Temperature 96.7 F L Temperature Source Oral Pulse Rate 74 74 Pulse Rate [Right Radial] 115 H Respiratory Rate 20 13 15 Blood Pressure 111/57 L 91/52 L Blood Pressure [Right Arm] 112/63 Blood Pressure Mean [Right Arm] 79 Blood Pressure Source [Right Arm] Automatic Cuff Blood Pressure Position [Right Arm] Supine 02 Sat by Pulse Oximetry 93 L 93 L 81 L Oxygen Delivery Method Nasal Cannula Oxygen Flow Rate (LPM) 2 03/15/24 03:57 03/15/24 04:01 Temperature Temperature Source Pulse Rate 73 74 Pulse Rate [Right Radial] Respiratory Rate 15 13 Blood Pressure 99/52 L 113/66 Blood Pressure [Right Arm] Blood Pressure Mean [Right Arm] Blood Pressure Source [Right Arm] Blood Pressure Position [Right Arm] 02 Sat by Pulse Oximetry 90 L 91 L Oxygen Delivery Method Oxygen Flow Rate (LPM) Lab Data Lab Results 03/15/24 03:15: WBC 12.0 H, RBC 5.19, Hgb 14.5, Hct 45.2, MCV 87.2, MCH 28.0, MCHC 32.1, RDW 15.7, Plt Count 283, MPV 7.5, Neut % (Auto) 79.0, Lymph % (Auto) 13.0, [place] % (Auto) 4.1, Eos % (Auto) 3.2, Baso % (Auto) 0.7, Neut # (Auto) 9.5 H, Lymph # (Auto) 1.6, [place] # (Auto) 0.5, Eos # (Auto) 0.4, Baso # (Auto) 0.1, Sodium 135 L, Potassium 3.6, Chloride 97 L, Carbon Dioxide 37 H, Anion Gap 4.6 L, BUN 16, Creatinine 1.20, Estimated Creat Clear 98, Estimated GFR 60, Est GFR ( Amer) 73, Glucose 197 H, Calcium 8.6, Total Bilirubin 0.5, AST 21, ALT 14, Alkaline Phosphatase 237 H, Troponin I < 0.01, Total Protein 7.4, Albumin 3.4 L, Globulin 4.0 H, Albumin/Globulin Ratio 0.9 L 03/15/24 03:15 03/15/24 03:15 Orders (Tests/Meds): ED MEDICATIONS Generic Name Dose Route Start Last Admin Trade Name Freq PRN Reason Stop Dose Admin Acetaminophen 1,000 mg 03/15/24 04:38 Acetaminophen 1,000mg/100ml Vial IV 03/15/24 04:39 ONCE ONE Fentanyl Citrate 50 mcg 03/15/24 04:38 Fentanyl 250mcg/5ml Vial IV 03/15/24 04:39 ONCE ONE Lactated Ringer's 500 mls @ 250 mls/hr 03/15/24 03:03 03/15/24 03:22 Lactated Ringer's 500ml IV 03/15/24 05:02 250 mls/hr .Q2H ONE Administration Discontinued Medications Generic Name Dose Route Start Last Admin Trade Name Freq PRN Reason Stop Dose Admin Fentanyl Citrate 50 mcg 03/15/24 03:01 03/15/24 03:23 Fentanyl 250mcg/5ml Vial IV 03/15/24 03:02 50 mcg ONCE ONE Administration Fentanyl Citrate 50 mcg 03/15/24 03:41 03/15/24 03:45 Fentanyl 250mcg/5ml Vial IV 03/15/24 03:42 50 mcg ONCE ONE Administration Ondansetron HCl 4 mg 03/15/24 03:01 03/15/24 03:22 Ondansetron 4mg/2ml Vial IV 03/15/24 03:02 4 mg ONCE ONE Administration ORDERS Category Date Time Status CT cervical spine wo con Stat Cat Scan 03/15/24 03:[address] head/brain wo con Stat Cat Scan 03/15/24 03:01 Completed CXR --portable [XR chest portable] Stat Exams 03/15/24 03:04 Completed Humerus XR left [XR humerus LT] Stat Exams 03/15/24 03:01 Completed Shoulder XR left minimum 2 views [XR shoulder LT min 2V Exams 03/15/24 03:01 Completed ] Stat XR clavicle LT Stat Exams 03/15/24 03:01 Completed CBC w/Auto Diff [Complete Blood Count Auto Diff] Stat Lab 03/15/24 03:15 Completed CMP [Comprehensive Metabolic Panel] Stat Lab 03/15/24 03:15 Completed Trop I [Troponin I] Stat Lab 03/15/24 03:15 Completed Troponin I Q3H Lab 03/15/24 06:15 Ordered Troponin I Q3H Lab 03/15/24 09:15 Ordered Medical Decision Narrative: In summary, this 68-year-old male presents to the emergency department today with left shoulder pain after fall. Multiple chronic medical conditions including previous orthopedic injuries contribute to his overall morbidity today. On initial evaluation patient is hemodynamically stable, afebrile, tenderness to palpation of his left AC joint with bulging/deformity, also tenderness of the proximal left humerus, neurovascularly intact distally, no other acute findings of injury on exam. Differential diagnosis includes but is not limited to fracture, dislocation, AC separation, clavicle injury, given his age and use of aspirin I cannot rule out intracranial or cervical spine injury so these will be imaged as well. Based on these concerns, I ordered basic labs, imaging. Prior to going to radiology, patient stated he felt like he was having palpitations so ECG was ordered. Differential includes arrhythmia, electrolyte abnormality, he is not having any chest pain so I do not have concern for ACS. ECG personally interpreted demonstrates normal sinus rhythm, rate 74, right bundle iveth block, normal QTc, borderline first-degree AV block. Patient received IV fentanyl, IV fluids, IV Zofran for treatment. Labs personally reviewed demonstrate mild leukocytosis, no anemia, platelets normal, trace hyponatremia, nonspecific nonactionable, BUN and creatinine normal, slight elevation in alkaline phosphatase, nonspecific nonactionable. XR personally interpreted demonstrates left humeral neck fracture, see radiology read for final interpretation. Radiology read also commented on wide mediastinum, this is similar to prior, patient does not have any chest pain or hemodynamic instability, and does not require further imaging of this at this time. CT imaging personally interpreted demonstrate no acute intracranial bleed, skull fracture, or midline shift, no cervical spine injury. See radiology read for final interpretation. I discussed this case with Dr. Peraza, we reviewed the images. He recommends a sling, nonoperative management at this time. Patient requires admission due to the necessity of sling on the left upper extremity. He uses a walker to ambulate and clearly has demonstrated his unsteadiness without a walker given the fall tonight, so he needs admission for continued pain management since he is required multiple doses of IV fentanyl, and evaluation from physical/Occupational Therapy for this new complication with his ambulation. Patient and family are in agreement with this plan. I discussed these concerns with the hospitalist and he accepted the patient for admission. Critical Care Critical Care Time Critical Care Time: No
[2024-03-15 03:25] LABS: Chloride 97 mmol/L (98-107); Potassium 3.6 mmoL/L (3.5-5.1); Sodium 135 mmol/L (136-145)
[2024-03-15 03:28] LABS: Alanine Aminotransferase 14 U/L (12-78); Albumin Level 3.4 g/dl (3.5-5.0); Albumin/Globulin Ratio 0.9 (1.1-1.8); Alkaline Phosphatase 237 U/L (38-126); Anion Gap 4.6 mEq/L (5-15); Aspartate Amino Transferase 21 U/L (17-59); Bilirubin,Total 0.5 mg/dl (0.2-1.3); Blood Urea Nitrogen 16 mg/dl (9-20); Carbon Dioxide 37 mmol/L (22.0-30.0); Creatinine Clearance Estimated 98 mL/min (50-200); Estimated Glomerular Filt Rate 60 ml/min (>60); GFR (African American) 73 ML/MIN (>60); Total Protein,Serum 7.4 g/dl (6.3-8.2)
[2024-03-15 03:29] LABS: Calcium 8.6 mg/dl (8.4-10.2); Glucose 197 mg/dl (74-100)
--- NOTE | 2024-03-15 03:31 | PC.NURSE ---
Assisted in moving patient to CT
[2024-03-15 03:50] LABS: Troponin I < 0.01 ng/ml (0.00-0.034)
--- NOTE | 2024-03-15 04:38 | PC.NURSE ---
Pt. has had no pain relief plan to admit.
--- NOTE | 2024-03-15 04:41 | PC.NURSE ---
CONTACTED [employer] FOR BED ASSIGNMENT. 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 CONSULTED DR WELLS PRIOR TO ADMIT. PLAN TO PLACE A SLING AND GIVE ADD'L MEDICATIONS PRIOR TO PLACEMENT OF SLING.
[2024-03-15] MEDS: ACETAMINOPHEN 1,000MG/100ML VIAL 1000 MG IV (04:47)
--- NOTE | 2024-03-15 04:51 | P.HP_ITS ---
History of Present Illness *Admission Date: 03/15/24 *Reason for visit:: fall with injury *History of present illness: This is a 68-year-old female with multiple chronic medical conditions including poorly controlled type 2 diabetes, previous spine fracture, meniscus injury, uses walker to ambulate, COPD presents to the ER with EMS and family after fall. Patient stated he stood up out of a chair and turned, losing his balance and falling backwards landing primarily on the left arm/shoulder. He did not had LOC. Patient is complaining of pain in the left humerus and left shoulder. He denies hitting his head or losing consciousness, no on AOC. Patient denies new pain in his other extremities, back, chest, or abdomen, difficulty breathing or chest pain. Admitted for further management. [facility] Disclaimer: The information contained in this section may have been updated after the patient was seen, as this information can be updated by other users. Social History (Updated 03/15/24 @ 05:41 by Fred Dickinson RN) Smoking Status: Never smoker second hand exposure: No alcohol intake: never substance use type: denies use current occupational status: retired Travel in the last 8 weeks: None household members: spouse and family housing: house current occupational exposures/hazards: No caffeine: Yes Review of Systems Review of Systems Review of systems:: pertinent systems reviewed and negative unless documented below Constitutional Constitutional: Denies headache(s) and Denies weakness ENT Ears, Nose, Mouth, and Throat: Denies dizziness and Denies headache(s) *Musculoskeletal Musculoskeletal: Denies numbness and Denies tingling *Neurologic Neurologic: Denies dizziness, Denies headache(s), Denies numbness, Denies tingling and Denies weakness Meds Home Medications and Allergies Home Medications Medication Instructions Recorded Confirmed Type bictegravir 50 mg-emtricitabine 1 each PO DAILY ANTI-RETROVIRAL 11/13/18 03/15/24 History 200 mg-tenofovir alafenam 25 mg tablet finasteride 5 mg tablet 5 mg PO DAILY Prostate 11/13/18 03/15/24 History insulin regular hum U-500 conc 500 70 unit SQ BID Diabetes 11/13/18 03/15/24 History unit/mL subcutaneous soln metoprolol tartrate 100 mg tablet 50 mg PO BID HIGH BLOOD 11/13/18 03/15/24 History PRESSURE/HEART alogliptin 6.25 mg tablet 12.5 mg PO DAILY Diabetes 08/02/19 03/15/24 History aspirin 81 mg tablet,delayed 81 mg PO DAILY CAD 08/02/19 03/15/24 History release gabapentin 300 mg capsule 900 mg PO TID pain 08/02/19 03/15/24 History omega3 300 mg-dha,epa 250 mg-other 1 each PO DAILY Supplement 08/03/19 03/15/24 History omega 3s-fish oil 1,000 mg capsule bumetanide 2 mg tablet 2 mg PO DAILY Fluid 01/06/20 03/15/24 History tamsulosin 0.4 mg capsule 0.4 mg PO HS PROSTATE 01/06/20 03/15/24 History methocarbamol 750 mg tablet 750 mg PO Q6HP PRN Muscle Spasm 11/26/20 03/15/24 History pantoprazole 40 mg tablet,delayed 40 mg PO BID GI 11/26/20 03/15/24 History release cholecalciferol (vitamin D3) 25 25 mcg PO DAILY 12/30/20 03/15/24 History mcg (1,000 unit) capsule ascorbic acid (vitamin C) 500 mg 500 mg PO DAILY 09/16/23 03/15/24 History capsule ferrous sulfate 325 mg (65 mg 325 mg PO DAILY 09/16/23 03/15/24 History iron) tablet (Iron (ferrous sulfate)) venlafaxine 150 mg 150 mg PO DAILY 09/16/23 03/15/24 History capsule,extended release 24 hr (Effexor XR) empagliflozin 25 mg tablet 12.5 mg PO DAILY 03/15/24 03/15/24 History tramadol 50 mg tablet 50 mg PO Q6HP PRN Pain 03/15/24 03/15/24 History New Prescriptions to Start Prescriptions: Allergies Allergy/AdvReac Type Severity Reaction Status Date / Time SANDRA Inhibitors Allergy Unknown Unknown Verified 04/04/21 15:53 allergy reaction clofibrate Allergy Unknown Unknown Verified 04/04/21 15:53 allergy reaction enalapril Allergy Unknown Unknown Verified 04/04/21 15:53 allergy reaction erythromycin base Allergy Unknown Unknown Verified 04/04/21 15:53 allergy reaction gemfibrozil Allergy Unknown Unknown Verified 04/04/21 15:53 allergy reaction hepatitis A virus vaccine Allergy Unknown Unknown Verified 04/04/21 15:53 allergy reaction hydralazine Allergy Unknown Unknown Verified 04/04/21 15:53 allergy reaction Macrolide Antibiotics Allergy Unknown Unknown Verified 04/04/21 15:53 allergy reaction pravastatin [From Pravachol] Allergy Unknown Unknown Verified 04/04/21 15:53 allergy reaction Mmaylfh-QJV-LrE Reductase Allergy Unknown Unknown Verified 04/04/21 15:53 Inhibitor allergy [Wujzxzm-Xzc-Puv Reductase reaction Inhibitor] Exam Data for Last 24 hours Vital signs and Labs for Last 24 Hours: Temp Pulse Resp BP Pulse Ox O2 Del Method O2 Flow Rate 96.7 F L 74 13 113/66 91 L Nasal Cannula 2 03/15/24 02:50 03/15/24 04:01 03/15/24 04:01 03/15/24 04:01 03/15/24 04:01 03/15/24 02:50 03/15/24 02:50 Laboratory Results - last 24 hr 03/15/24 03:15: WBC 12.0 H, RBC 5.19, Hgb 14.5, Hct 45.2, MCV 87.2, MCH 28.0, MCHC 32.1, RDW 15.7, Plt Count 283, MPV 7.5, Neut % (Auto) 79.0, Lymph % (Auto) 13.0, Snyder % (Auto) 4.1, Eos % (Auto) 3.2, Baso % (Auto) 0.7, Neut # (Auto) 9.5 H, Lymph # (Auto) 1.6, Snyder # (Auto) 0.5, Eos # (Auto) 0.4, Baso # (Auto) 0.1, Sodium 135 L, Potassium 3.6, Chloride 97 L, Carbon Dioxide 37 H, Anion Gap 4.6 L , BUN 16, Creatinine 1.20, Estimated Creat Clear 98, Estimated GFR 60, Est GFR ( Amer) 73, Glucose 197 H, Calcium 8.6, Total Bilirubin 0.5, AST 21, ALT 14, Alkaline Phosphatase 237 H, Troponin I < 0.01, Total Protein 7.4, Albumin 3.4 L, Globulin 4.0 H, Albumin/Globulin Ratio 0.9 L I & O for Last 24 hours: Intake & Output 03/12/24 03/13/24 03/14/24 03/15/24 23:59 23:59 23:59 23:59 Weight 118.841 kg Constitutional Constitutional: mild distress, obese and cooperative *Routine HEENT Exam Head: Present normocephalic Eye: Present EOMI and PERRL ENT: Present mucous membranes moist *Routine Neck Exam Neck: Present supple; Absent lymphadenopathy *Routine Respiratory Exam Respiratory: Present CTA bilaterally *Routine Cardiovascular Exam Cardiovascular: Present RRR *Routine Abdominal Exam Abdominal: Present soft and normoactive bowel sounds; Absent tenderness *Routine Rectal Exam Rectal:: deferred *Routine Genitalia Exam Genitalia:: deferred *Routine Extremities Exam Extremities: Present tenderness; Absent cyanosis, clubbing or full ROM Comments: left arm sling in place. *Routine Skin Exam Skin: Present erythema, dry, warm, wounds, rash and cracked *Routine Neurological Exam Neurological: Present alert and oriented X3 H&P: Result Imaging and Cardiology EKG: Status: image reviewed by me, Preliminary report and final report Shoulder CT: Status: image reviewed by me, Preliminary report and final report Assessment and Plan *Assessment and plan (1) Fall: Status: Acute Qualifiers: Encounter type: initial encounter Qualified Code(s): W19.XXXA - Unspecified fall, initial encounter Category: Medical Code(s): W19.XXXA - Unspecified fall, initial encounter (2) Closed fracture of neck of left humerus: Status: Acute Qualifiers: Encounter type: initial encounter Qualified Code(s): S42.212A - Unspecified displaced fracture of surgical neck of left humerus, initial encounter for closed fracture Category: Medical Code(s): S42.212A - Unspecified displaced fracture of surgical neck of left humerus, initial encounter for closed fracture (3) Diabetes type 2, uncontrolled: Status: Acute Qualifiers: Glycemic state: with hyperglycemia Qualified Code(s): E11.65 - Type 2 diabetes mellitus with hyperglycemia Category: Medical Code(s): E11.65 - Type 2 diabetes mellitus with hyperglycemia (4) COPD (chronic obstructive pulmonary disease): Status: Acute Qualifiers: COPD type: unspecified COPD Qualified Code(s): J44.9 - Chronic obstructive pulmonary disease, unspecified Category: Medical Code(s): J44.9 - Chronic obstructive pulmonary disease, unspecified (5) Venous stasis ulcers of both lower extremities: Status: Chronic Category: Medical Code(s): I83.019 - Varicose veins of right lower extremity with ulcer of unspecified site; I83.029 - Varicose veins of left lower extremity with ulcer of unspecified site; L97.919 - Non-pressure chronic ulcer of unspecified part of right lower leg with unspecified severity; L97.929 - Non-pressure chronic ulcer of unspecified part of left lower leg with unspecified severity (6) HIV disease: Status: Chronic Category: Medical Code(s): B20 - Human immunodeficiency virus [HIV] disease (7) Obesity: Status: Acute Qualifiers: Body mass index: BMI 45.0-49.9 Obesity classification: adult class 3 (BMI >= 40) Obesity type: due to excess calories Serious obesity comorbidity presence: with serious comorbidity Qualified Code(s): E66.01 - Morbid (severe) obesity due to excess calories; Z68.42 - Body mass index (BMI) 45.0-49.9, adult Category: Medical Code(s): E66.9 - Obesity, unspecified Plan 68-year-old female with multiple chronic medical conditions including poorly controlled type 2 diabetes, previous spine fracture, meniscus injury, uses walker to ambulate, COPD presents to the ER with EMS and family after fall. on arrival patient c/o pain. initial Labs personally reviewed demonstrate mild leukocytosis, no anemia, platelets normal, trace hyponatremia, nonspecific nonactionable, BUN and creatinine normal, slight elevation in alkaline phosphatase, nonspecific nonactionable. XR personally interpreted demonstrates left humeral neck fracture. Orthopedic consulted. recommended non surgical management. Discussed with ED for admission. Agreed for inpatient management. Pl an as follow: -Closed fracture of neck of the left humerus secondary to mechanical fall:\ Admit patient for inpatient management. No surgical treatment recommended Left arm sling in place PT OT consult for evaluation and treatment. Patient uses a walker rolling walker for mobility Pain management. Received 3 rounds of IV fentanyl at ER Continue with Tylenol 1000 mg stated every 6 Robaxin 1000 mg twice daily Images reviewed Continue monitor for vital signs per unit Repeat labs in the morning -Uncontrolled insulin-dependent diabetes: On monitor Accu-Chek before Sliding scale Resume home meds of On gabapentin for neuropathy COPD: Does not seen on exacerbation. Currently on 2 L at baseline Continue to monitor for O2 saturation Currently has been assistance as well as lower extremity: On different aspects of healing. Continue to monitor for infectious Wound care as needed Resume Bumex -Patient IV disease Resume anti-retroviral Obesity: Will complicate all aspects of care Lovenox for DVT prophylaxis. On Protonix twice daily for GI bleed protection and GERD Full code
--- NOTE | 2024-03-15 05:17 | PC.NURSE ---
PT ARRIVED TO FLOOR VIA STRETCHER @[phone]
[2024-03-15] MEDS: 0.9 % SODIUM CHLORIDE 1000ML 1,000 ML 50 ML IV (05:26)
[2024-03-15] MEDS: METHOCARBAMOL 500MG TABLET 1000 MG PO ×4 (05:57→21:48)
--- NOTE | 2024-03-15 06:07 | PC.NURSE ---
Email sent to pharmacy staff regarding patient's home meds and their location. Pharmacy to package meds for patient use while in the hospital since he is a Medicare obs patient.
[2024-03-15] MEDS: humaLOG 100 UNITS/ML 10ML VIAL (SSI) SQ ×4 (06:30→21:49)
[2024-03-15] MEDS: MORPHINE 4MG/ML SYRINGE 4 MG IV ×2 (06:31→10:57)
--- NOTE | 2024-03-15 06:37 | PC.NURSE ---
Patient admitted prior to shift change. Currently resting with NAD. Medicated per MAR on admission and for PRN pain at this time. Family left and will be back later this morning. Bed alarm remains on and functioning.
[2024-03-15 07:10] LABS: Troponin I < 0.01 ng/ml (0.00-0.034)
[2024-03-15 08:05] LABS: Basophils # 0.1 K/mm3 (0-0.2); Basophils % 0.4 % (0.1-2.0); Eosinophils # 0.2 K/mm3 (0.0-0.4); Hematocrit 42.9 % (42.0-52.0); Hemoglobin 13.6 g/dL (14.1-18.0); Lymphocytes # 1.3 K/mm3 (0.7-4.5); Lymphocytes % 8.4 % (10-50); Mean Corpuscular HGB Conc 31.7 g/dL (31.8-35.4); Mean Corpuscular Volume 88.3 fl (80-94); Mean Platelet Volume 8.4 fl (7.4-10.4); Monocytes # 0.8 K/mm3 (0.1-1.0); Monocytes % 5.6 % (1.7-9.3); Neutrophils # 12.6 K/mm3 (1.8-7.8); Neutrophils % 84.5 % (37.0-80.0); Platelet Count 256 K/mm3 (142-424); Red Blood Count 4.86 M/mm3 (4.60-6.20); Red Cell Distribution Width 15.6 % (11.5-17.5); White Blood Count 14.9 K/mm3 (4.8-10.8)
[2024-03-15 08:57] LABS: Alanine Aminotransferase 13 U/L (12-78); Albumin Level 3.5 g/dl (3.5-5.0); Alkaline Phosphatase 232 U/L (38-126); Anion Gap 9.9 mEq/L (5-15); Aspartate Amino Transferase 23 U/L (17-59); Bilirubin,Total 0.7 mg/dl (0.2-1.3); Blood Urea Nitrogen 18 mg/dl (9-20); Calcium 8.5 mg/dl (8.4-10.2); Carbon Dioxide 28 mmol/L (22.0-30.0); Chloride 100 mmol/L (98-107); Creatinine Clearance Estimated 90 mL/min (50-200); Estimated Glomerular Filt Rate 55 ml/min (>60); GFR (African American) 66 ML/MIN (>60); Globulin 3.6 g/dL (1.3-3.2); Glucose 250 mg/dl (74-100); Potassium 3.9 mmoL/L (3.5-5.1); Sodium 134 mmol/L (136-145); Total Protein,Serum 7.1 g/dl (6.3-8.2)
[2024-03-15 09:05] LABS: Hemoglobin A1C 7.8 % (4.0-6.0)
[2024-03-15] MEDS: PANTOPRAZOLE 40MG TABLET 40 MG PO (09:26)
[2024-03-15] MEDS: ENOXAPARIN 40MG/0.4ML SYRINGE 40 MG SQ (09:26)
[2024-03-15 10:41] LABS: Troponin I < 0.01 ng/ml (0.00-0.034)
[2024-03-15] MEDS: ACETAMINOPHEN 500MG TAB 1000 MG PO (10:57)
--- NOTE | 2024-03-15 10:58 | P.CONPHA_ITS ---
Pharmacy Intervention Comments: MEDICATION RECONCILIATION COMPLETE USING RX BOTTLES AND PHONE CALL TO THE [facility] TO VERIFY THE HOME INSULIN DOSE.
--- NOTE | 2024-03-15 10:58 | HMH.PHAINT1 ---
Pharmacy Intervention Comments: MEDICATION RECONCILIATION COMPLETE USING RX BOTTLES AND PHONE CALL TO THE [facility] TO VERIFY THE HOME INSULIN DOSE.
[2024-03-15 11:13] LABS: POC Glucose,Bedside 196 (70-110)
--- NOTE | 2024-03-15 14:03 | P.CONS_ITS ---
<Statement entered by Elias Peraza DO - 03/17/24 08:40> I discussed the case with the PA-C and agree with the findings and plan as documented in the final note. History of Present Illness *Admission Date: 03/15/24 *History of present illness: This is a 68-year-old male with past medical history of type 2 diabetes (Hgb A1c 7.8) and COPD, who uses walker to ambulate at baseline, who presented to the ER with EMS and family after fall. HPI from in room, as patient difficult to understand 2/2 morphine administration, stated he stood up out of a chair and turned, losing his balance and falling backwards landing primarily on the left arm/shoulder. He denies LOC. Patient states that pain in the left humerus and left shoulder is severe, localized to the shoulder, with any movement making it worse. Patient denies paresthesias, SOB, or chest pain. ADmitted to medical team. [facility] Disclaimer: The information contained in this section may have been updated after the patient was seen, as this information can be updated by other users. Social History (Updated 03/15/24 @ 05:41 by Fred Dickinson RN) Smoking Status: Never smoker second hand exposure: No alcohol intake: never substance use type: denies use current occupational status: retired Travel in the last 8 weeks: None household members: spouse and family housing: house current occupational exposures/hazards: No caffeine: Yes Review of Systems Constitutional Constitutional: Denies headache(s) and Denies weakness ENT Ears, Nose, Mouth, and Throat: Denies dizziness and Denies headache(s) *Musculoskeletal Musculoskeletal: Denies numbness and Denies tingling *Neurologic Neurologic: Denies dizziness, Denies headache(s), Denies numbness, Denies tingling and Denies weakness Meds Home Medications and Allergies Home Medications Medication Instructions Recorded Confirmed Type bictegravir 50 mg-emtricitabine 1 each PO DAILY 11/13/18 03/15/24 History 200 mg-tenofovir alafenam 25 mg tablet finasteride 5 mg tablet 5 mg PO DAILY 11/13/18 03/15/24 History insulin regular hum U-500 conc 500 65 unit SQ BID Diabetes 11/13/18 03/15/24 History unit/mL subcutaneous soln metoprolol tartrate 100 mg tablet 100 mg PO BID 11/13/18 03/15/24 History aspirin 81 mg tablet,delayed 81 mg PO DAILY 08/02/19 03/15/24 History release gabapentin 300 mg capsule 900 mg PO 0900,1700 08/02/19 03/15/24 History omega3 300 mg-dha,epa 250 mg-other 1 each PO DAILY Supplement 08/03/19 03/15/24 History omega 3s-fish oil 1,000 mg capsule bumetanide 2 mg tablet 2 mg PO DAILY Fluid 01/06/20 03/15/24 History tamsulosin 0.4 mg capsule 0.4 mg PO HS PROSTATE 01/06/20 03/15/24 History methocarbamol 750 mg tablet 750 mg PO Q6HP PRN Muscle Spasm 11/26/20 03/15/24 History pantoprazole 40 mg tablet,delayed 40 mg PO BID 11/26/20 03/15/24 History release cholecalciferol (vitamin D3) 25 25 mcg PO DAILY 12/30/20 03/15/24 History mcg (1,000 unit) capsule ascorbic acid (vitamin C) 500 mg 500 mg PO DAILY 09/16/23 03/15/24 History capsule ferrous sulfate 325 mg (65 mg 325 mg PO DAILY 09/16/23 03/15/24 History iron) tablet (Iron (ferrous sulfate)) venlafaxine 150 mg 150 mg PO DAILY 09/16/23 03/15/24 History capsule,extended release 24 hr (Effexor XR) alogliptin 12.5 mg tablet 12.5 mg PO DAILY 03/15/24 03/15/24 History bumetanide 2 mg tablet 2 mg PO DAILYP@2100 PRN Fluid 03/15/24 03/15/24 History empagliflozin 25 mg tablet 12.5 mg PO DAILY 03/15/24 03/15/24 History gabapentin 300 mg capsule 1,200 mg PO HS 03/15/24 03/15/24 History tramadol 50 mg tablet 50 mg PO Q6HP PRN Severe Pain 03/15/24 03/15/24 History (Scale Score 7-10) New Prescriptions to Start Prescriptions: Allergies Allergy/AdvReac Type Severity Reaction Status Date / Time SANDRA Inhibitors Allergy Unknown Unknown Verified 04/04/21 15:53 allergy reaction clofibrate Allergy Unknown Unknown Verified 04/04/21 15:53 allergy reaction enalapril Allergy Unknown Unknown Verified 04/04/21 15:53 allergy reaction erythromycin base Allergy Unknown Unknown Verified 04/04/21 15:53 allergy reaction gemfibrozil Allergy Unknown Unknown Verified 04/04/21 15:53 allergy reaction hepatitis A virus vaccine Allergy Unknown Unknown Verified 04/04/21 15:53 allergy reaction hydralazine Allergy Unknown Unknown Verified 04/04/21 15:53 allergy reaction Macrolide Antibiotics Allergy Unknown Unknown Verified 04/04/21 15:53 allergy reaction pravastatin [From Pravachol] Allergy Unknown Unknown Verified 04/04/21 15:53 allergy reaction Tfkkmhy-HZL-LtL Reductase Allergy Unknown Unknown Verified 04/04/21 15:53 Inhibitor allergy [Fdijbmn-Zsv-Bcf Reductase reaction Inhibitor] Ortho Exam (Inpt) Vital signs and Labs for Last 24 Hours: Temp Pulse Resp BP Pulse Ox O2 Del Method O2 Flow Rate 98.5 F 76 18 103/65 L 95 Nasal Cannula 2 03/15/24 08:00 03/15/24 08:00 03/15/24 08:00 03/15/24 08:00 03/15/24 08:00 03/15/24 12:55 03/15/24 12:55 Laboratory Results - last 24 hr 03/15/24 03:15: WBC 12.0 H, RBC 5.19, Hgb 14.5, Hct 45.2, MCV 87.2, MCH 28.0, MCHC 32.1, RDW 15.7, Plt Count 283, MPV 7.5, Neut % (Auto) 79.0, Lymph % (Auto) 13.0, Burnett % (Auto) 4.1, Eos % (Auto) 3.2, Baso % (Auto) 0.7, Neut # (Auto) 9.5 H, Lymph # (Auto) 1.6, Burnett # (Auto) 0.5, Eos # (Auto) 0.4, Baso # (Auto) 0.1, S odium 135 L, Potassium 3.6, Chloride 97 L, Carbon Dioxide 37 H, Anion Gap 4.6 L, BUN 16, Creatinine 1.20, Estimated Creat Clear 98, Estimated GFR 60, Est GFR ( Amer) 73, Glucose 197 H, Hemoglobin A1c 7.8 H, Calcium 8.6, Total Bilirubin 0.5, AST 21, ALT 14, Alkaline Phosphatase 237 H, Troponin I < 0.01, Total Protein 7.4, Albumin 3.4 L, Globulin 4.0 H, Albumin/Globulin Ratio 0.9 L 03/15/24 06:15: WBC 14.9 H, RBC 4.86, Hgb 13.6 L, Hct 42.9, MCV 88.3, MCH 28.0, MCHC 31.7 L, RDW 15.6, Plt Count 256, MPV 8.4, Neut % (Auto) 84.5 H, Lymph % (Auto) 8.4 L, Burnett % (Auto) 5.6, Eos % (Auto) 1.0, Baso % (Auto) 0.4, Neut # (Auto) 12.6 H, Lymph # (Auto) 1.3, Burnett # (Auto) 0.8, Eos # (Auto) 0.2, Baso # (Auto) 0.1, Sodium 134 L, Potassium 3.9, Chloride 100, Carbon Dioxide 28, Anion Gap 9.9, BUN 18, Creatinine 1.30 H, Estimated Creat Clear 90, Estimated GFR 55 L , Est GFR ( Amer) 66, Glucose 250 H D, Calcium 8.5, Total Bilirubin 0.7, AST 23, ALT 13, Alkaline Phosphatase 232 H, Troponin I < 0.01, Total Protein 7.1, Albumin 3.5, Globulin 3.6 H, Albumin/Globulin Ratio 1.0 L 03/15/24 09:32: Troponin I < 0.01 03/15/24 11:05: POC Glucose 196 H I & O for Labs for Last 24 Hours: Intake & Output 03/12/24 03/13/24 03/14/24 03/15/24 23:59 23:59 23:59 23:59 Intake Total 230 / 230 Balance 230 / 230 Weight 118.841 kg Comment:: Left shoulder: Moderate edema in shoulder and upper humerus, no ecchymosis, erythema or open skin. Patient tender to palpation over the fracture. Neurovascularly intact distally with +2 RP, sensation and motor intact in median/ulnar/radial distributions. Sling in place at end of exam. X-rays taken on 03/15/2024 of the left humerus and shoulder show a proximal humerus fracture, displaced but in acceptable alignment. Results Labs 03/15/24 06:15 03/15/24 06:15 Labs: Abnormal lab results 03/15/24 03/15/24 03/15/24 Range/Units 03:15 06:15 11:05 WBC 12.0 H 14.9 H (4.8-10.8) K/mm3 Hgb 13.6 L (14.1-18.0) g/dL MCHC 31.7 L (31.8-35.4) g/dL Neut % (Auto) 84.5 H (37.0-80.0) % Lymph % (Auto) 8.4 L (10-50) % Neut # (Auto) 9.5 H 12.6 H (1.8-7.8) K/mm3 Sodium 135 L 134 L (136-145) mmol/L Chloride 97 L (98-107) mmol/L Carbon Dioxide 37 H (22.0-30.0) mmol/L Anion Gap 4.6 L (5-15) mEq/L Creatinine 1.30 H (0.66-1.25) mg/dl Estimated GFR 55 L (>60) ml/min Glucose 197 H 250 H D (74-100) mg/dl POC Glucose 196 H (70-110) Hemoglobin A1c 7.8 H (4.0-6.0) % Alkaline Phosphatase 237 H 232 H (38-126) U/L Albumin 3.4 L (3.5-5.0) g/dl Globulin 4.0 H 3.6 H (1.3-3.2) g/dL Albumin/Globulin Ratio 0.9 L 1.0 L (1.1-1.8) H & H 03/15/24 03/15/24 Range/Units 03:15 06:15 Hgb 14.5 13.6 L (14.1-18.0) g/dL Hct 45.2 42.9 (42.0-52.0) % All other labs normal. Assessment and Plan *Assessment and plan (1) Closed fracture of neck of left humerus: Status: Acute Qualifiers: Encounter type: initial encounter Qualified Code(s): S42.212A - Unspecified displaced fracture of surgical neck of left humerus, initial encounter for closed fracture Category: Medical Code(s): S42.212A - Unspecified displaced fracture of surgical neck of left humerus, initial encounter for closed fracture Plan Discussed with and patient, who understand with the following plan: Nonweightbearing to left upper extremity, sling at all times, may come out for elbow wrist and hand range of motion. This will be treated nonoperatively, with healing time expected to be 6 to 8 weeks if no complications but due to PMHx, could be longer. Pain control as needed Ice and elevation as needed for swelling Patient should follow-up in the office in 1 to 2 weeks for x-rays
[2024-03-15] MEDS: BUMETANIDE 2 MG 1 EACH PO (15:37)
[2024-03-15] MEDS: ASCORBIC ACID 500 MG 1 EACH PO (15:37)
[2024-03-15] MEDS: FERROUS SULFATE 324 MG 1 EACH PO (15:38)
[2024-03-15] MEDS: PT OWN MED *ASPIRIN 81 MG EC TAB 1 EACH PO (15:39)
[2024-03-15] MEDS: FINASTERIDE 5 MG 1 EACH PO (15:39)
[2024-03-15] MEDS: BIKTARVY 1 EACH PO (15:39)
[2024-03-15] MEDS: OXYCODONE 5MG IMMEDIATE RELEASE TABLET 5 MG PO ×2 (15:40→21:52)
[2024-03-15 16:00] LABS: POC Glucose,Bedside 200 (70-110)
[2024-03-15 16:00] LABS: POC Glucose,Bedside 215 (70-110)
--- NOTE | 2024-03-15 16:19 | PC.NURSE ---
Pt is resting in bed. Had a decrease in mental status after administration of morphine. MD was notified and assessed pt at bedside. Morphine was DC. New orders placed for other pain medication to treat pt. Pt had not urinated this shift. Bladder was scanned resulting in greater than 473 and New order was placed to insert F/C. 16 fr placed at 1800. Pt's orientation has improved the later part of this shift. He has stood with walker at bedside. Bed bath given. DSG's placed to BLE. Call light within reach.
[2024-03-15] MEDS: LIDOCAINE 2% UROJET 10ML 10 ML UR (18:00)
--- NOTE | 2024-03-15 19:02 | EXP.PN ---
Subjective *Date: 03/15/24 *Time: 19:02 Interval history: The patient is seen and examined at bedside today. I am accompanied by his nurse Kristen. Nursing staff report that he remains afebrile with stable vital signs and saturating appropriately on 2 L of oxygen via nasal cannula. The patient identifies adequate pain control. Orthopedics has recommended a nonoperative approach. Exam Data for Last 24 hours Vital signs and Labs for Last 24 Hours: Temp Pulse Resp BP Pulse Ox O2 Del Method O2 Flow Rate 98.3 F 81 18 113/58 L 94 L Nasal Cannula 2 03/15/24 16:00 03/15/24 16:00 03/15/24 16:00 03/15/24 16:00 03/15/24 16:00 03/15/24 18:54 03/15/24 17:00 Laboratory Results - last 24 hr 03/15/24 03:15: WBC 12.0 H, RBC 5.19, Hgb 14.5, Hct 45.2, MCV 87.2, MCH 28.0, MCHC 32.1, RDW 15.7, Plt Count 283, MPV 7.5, Neut % (Auto) 79.0, Lymph % (Auto) 13.0, [place] % (Auto) 4.1, Eos % (Auto) 3.2, Baso % (Auto) 0.7, Neut # (Auto) 9.5 H, Lymph # (Auto) 1.6, [place] # (Auto) 0.5, Eos # (Auto) 0.4, Baso # (Auto) 0.1, Sodium 135 L, Potassium 3.6, Chloride 97 L, Carbon Dioxide 37 H, Anion Gap 4.6 L, BUN 16, Creatinine 1.20, Estimated Creat Clear 98, Estimated GFR 60, Est GFR ( Amer) 73, Glucose 197 H, Hemoglobin A1c 7.8 H, Calcium 8.6, Total Bilirubin 0.5, AST 21, ALT 14, Alkaline Phosphatase 237 H, Troponin I < 0.01, Total Protein 7.4, Albumin 3.4 L, Globulin 4.0 H, Albumin/Globulin Ratio 0.9 L 03/15/24 06:15: WBC 14.9 H, RBC 4.86, Hgb 13.6 L, Hct 42.9, MCV 88.3, MCH 28.0, MCHC 31.7 L, RDW 15.6, Plt Count 256, MPV 8.4, Neut % (Auto) 84.5 H, Lymph % (Auto) 8.4 L, [place] % (Auto) 5.6, Eos % (Auto) 1.0, Baso % (Auto) 0.4, Neut # (Auto) 12.6 H, Lymph # (Auto) 1.3, [place] # (Auto) 0.8, Eos # (Auto) 0.2, Baso # (Auto) 0.1, Sodium 134 L, Potassium 3.9, Chloride 100, Carbon Dioxide 28, Anion Gap 9.9, BUN 18, Creatinine 1.30 H, Estimated Creat Clear 90, Estimated GFR 55 L, Est GFR ( Amer) 66, Glucose 250 H D, Calcium 8.5, Total Bilirubin 0.7, AST 23, ALT 13, Alkaline Phosphatase 232 H, Troponin I < 0.01, Total Protein 7.1, Albumin 3.5, Globulin 3.6 H, Albumin/Globulin Ratio 1.0 L 03/15/24 09:32: Troponin I < 0.01 03/15/24 11:05: POC Glucose 196 H 03/15/24 14:00: POC Glucose 215 H 03/15/24 15:53: POC Glucose 200 H I & O for Last 24 hours: Intake & Output 03/12/24 03/13/24 03/14/24 03/15/24 23:59 23:59 23:59 23:59 Intake Total 500 / 500 Output Total 0 / 0 Balance 500 / 500 Weight 118.841 kg Constitutional Constitutional: no acute distress, morbidly obese, chronically ill appearing and cooperative *Routine HEENT Exam Head: Present normocephalic Eye: Present EOMI and PERRL ENT: Present mucous membranes moist *Routine Neck Exam Neck: Present supple; Absent lymphadenopathy *Routine Respiratory Exam Respiratory: Present rhonchi, normal respiratory effort and symmetric chest movement *Routine Cardiovascular Exam Cardiovascular: Present RRR *Routine Abdominal Exam Abdominal: Present soft; Absent tenderness *Routine Extremities Exam Comments: Left upper extremity in sling *Routine Skin Exam Skin: Present warm; Absent rash *Routine Neurological Exam Neurological: Present alert and moving all extremities; Absent sensory deficit or motor deficit Routine Psychiatric Exam Psychiatric: Present cooperative Assessment and Plan *Assessment and plan (1) Fall: Status: Acute Qualifiers: Encounter type: initial encounter Qualified Code(s): W19.XXXA - Unspecified fall, initial encounter Category: Medical Code(s): W19.XXXA - Unspecified fall, initial encounter (2) Closed fracture of neck of left humerus: Status: Acute Qualifiers: Encounter type: initial encounter Qualified Code(s): S42.212A - Unspecified displaced fracture of surgical neck of left humerus, initial encounter for closed fracture Category: Medical Code(s): S42.212A - Unspecified displaced fracture of surgical neck of left humerus, initial encounter for closed fracture (3) Diabetes type 2, uncontrolled: Status: Acute Qualifiers: Glycemic state: with hyperglycemia Qualified Code(s): E11.65 - Type 2 diabetes mellitus with hyperglycemia Category: Medical Code(s): E11.65 - Type 2 diabetes mellitus with hyperglycemia (4) COPD (chronic obstructive pulmonary disease): Status: Acute Qualifiers: COPD type: unspecified COPD Qualified Code(s): J44.9 - Chronic obstructive pulmonary disease, unspecified Category: Medical Code(s): J44.9 - Chronic obstructive pulmonary disease, unspecified (5) Venous stasis ulcers of both lower extremities: Status: Chronic Category: Medical Code(s): I83.019 - Varicose veins of right lower extremity with ulcer of unspecified site; I83.029 - Varicose veins of left lower extremity with ulcer of unspecified site; L97.919 - Non-pressure chronic ulcer of unspecified part of right lower leg with unspecified severity; L97.929 - Non-pressure chronic ulcer of unspecified part of left lower leg with unspecified severity (6) HIV disease: Status: Chronic Category: Medical Code(s): B20 - Human immunodeficiency virus [HIV] disease (7) Obesity: Status: Acute Qualifiers: Body mass index: BMI 45.0-49.9 Obesity classification: adult class 3 (BMI >= 40) Obesity type: due to excess calories Serious obesity comorbidity presence: with serious comorbidity Qualified Code(s): E66.01 - Morbid (severe) obesity due to excess calories; Z68.42 - Body mass index (BMI) 45.0-49.9, adult Category: Medical Code(s): E66.9 - Obesity, unspecified Plan 68-year-old female with multiple chronic medical conditions including poorly controlled type 2 diabetes, previous spine fracture, meniscus injury, uses walker to ambulate, COPD presents to the ER with EMS and family after fall. on arrival patient c/o pain. initial Labs personally reviewed demonstrate mild leukocytosis, no anemia, platelets normal, trace hyponatremia, nonspecific nonactionable, BUN and creatinine normal, slight elevation in alkaline phosphatase, nonspecific nonactionable. XR personally interpreted demonstrates left humeral neck fracture. Orthopedic consulted. recommended non surgical management. Discussed with ED for admission. Agreed for inpatient management. Plan as follow: -Closed fracture of neck of the left humerus secondary to mechanical fall:\ Admit patient for inpatient management. No surgical treatment recommended Left arm sling in place PT OT consult for evaluation and treatment. Patient uses a walker rolling walker for mobility Pain management. Received 3 rounds of IV fentanyl at ER Continue with Tylenol 1000 mg stated every 6 Robaxin 1000 mg twice daily Images reviewed Continue monitor for vital signs per unit Repeat labs in the morning -Uncontrolled insulin-dependent diabetes: On monitor Accu-Chek before Sliding scale Resume home meds of On gabapentin for neuropathy COPD: Does not seen on exacerbation. Currently on 2 L at baseline Continue to monitor for O2 saturation Currently has been assistance as well as lower extremity: On different aspects of healing. Continue to monitor for infectious Wound care as needed Resume Bumex -Patient IV disease Resume anti-retroviral Obesity: Will complicate all aspects of care Lovenox for DVT prophylaxis. On Protonix twice daily for GI bleed protection and GERD Full code
[2024-03-15 20:36] LABS: POC Glucose,Bedside 218 (70-110)
[2024-03-15] MEDS: PT OWN MED *TAMSULOSIN 0.4 MG CAP 1 EACH PO (21:48)
[2024-03-15] MEDS: PANTOPRAZOLE 40 MG 1 EACH PO (21:48)
[2024-03-15] MEDS: METOPROLOL TART 1 EACH PO (21:48)
[2024-03-15] MEDS: GABAPENTIN 300MG CAPSULE 300 MG PO (21:48)
[2024-03-16] MEDS: OXYCODONE 5MG IMMEDIATE RELEASE TABLET 10 MG PO ×3 (02:07→18:06)
[2024-03-16] MEDS: 0.9 % SODIUM CHLORIDE 1000ML 1,000 ML 50 ML IV (02:14)
[2024-03-16 04:00] VITALS: BP 137/72; PULSE 107; RESP 20; TEMP 36.9; O2SAT 90; BMI 37.2
[2024-03-16] MEDS: humaLOG 100 UNITS/ML 10ML VIAL (SSI) SQ ×4 (05:35→20:25)
[2024-03-16] MEDS: ACETAMINOPHEN 500MG TAB 1000 MG PO ×2 (05:35→20:23)
[2024-03-16 05:37] LABS: POC Glucose,Bedside 182 (70-110)
[2024-03-16] MEDS: OXYCODONE 5MG IMMEDIATE RELEASE TABLET 5 MG PO ×3 (06:14→20:24)
[2024-03-16 08:00] VITALS: BP 116/62; PULSE 91; RESP 18; TEMP 37.4; O2SAT 90; O2SAT 91
[2024-03-16] MEDS: PANTOPRAZOLE 40 MG 1 EACH PO ×2 (09:04→20:24)
[2024-03-16] MEDS: EMPAGLIFLOZIN 25 MG 0.5 EACH PO (09:04)
[2024-03-16] MEDS: CHOLECALCIFEROL 25 MCG 1 EACH PO (09:05)
[2024-03-16] MEDS: FINASTERIDE 5 MG 1 EACH PO (09:05)
[2024-03-16] MEDS: METOPROLOL TART 1 EACH PO ×2 (09:05→20:24)
[2024-03-16] MEDS: VENLAFAXINE 150 MG 1 EACH PO (09:06)
[2024-03-16] MEDS: BUMETANIDE 2 MG 1 EACH PO (09:07)
[2024-03-16] MEDS: BIKTARVY 1 EACH PO (09:07)
[2024-03-16] MEDS: ASCORBIC ACID 500 MG 1 EACH PO (09:08)
[2024-03-16] MEDS: FERROUS SULFATE 324 MG 1 EACH PO (09:09)
[2024-03-16] MEDS: PT OWN MED *ASPIRIN 81 MG EC TAB 1 EACH PO (09:09)
[2024-03-16] MEDS: ENOXAPARIN 40MG/0.4ML SYRINGE 40 MG SQ (09:17)
[2024-03-16] MEDS: GABAPENTIN 300MG CAPSULE 300 MG PO ×3 (09:18→20:23)
[2024-03-16] MEDS: METHOCARBAMOL 500MG TABLET 1000 MG PO ×3 (09:18→20:23)
--- NOTE | 2024-03-16 11:00 | EXP.DC.SUM ---
General Admission date:: 03/15/24 Discharge date: 03/16/24 HPI HPI HPI: This is a 68-year-old male with past medical history of type 2 diabetes (Hgb A1c 7.8) and COPD, who uses walker to ambulate at baseline, who presented to the ER with EMS and family after fall. HPI from in room, as patient difficult to understand 2/2 morphine administration, stated he stood up out of a chair and turned, losing his balance and falling backwards landing primarily on the left arm/shoulder. He denies LOC. Patient states that pain in the left humerus and left shoulder is severe, localized to the shoulder, with any movement making it worse. Patient denies paresthesias, SOB, or chest pain. ADmitted to medical team. Hospital Course Hospital Course Hospital Course: The patient was admitted to the medical surgical floor with orthopedic consultation. Imaging, labs and inflammatory markers were assessed and trended. He continued with his antiviral therapy for his chronic HIV history. Orthopedics recommended a nonoperative approach. PT and OT evaluated the patient. The patient identified improvement and requested to be discharged home. We discussed his mild leukocytoses and elevated creatinine. We recommended transition to rehab and the patient declined. We discussed his chronic co-morbidities and increased probability of repeat falls and further hospital admissions. He requested to go home with home health (nursing, PT/OT, lower extremity wound care) and plans to follow-up with his care team at the [facility] in [place]. We discussed his chronic venous stasis dermatitis and recommended antibiotic therapy on discharge until physical therapy and [facility] evaluations. We have recommended repeat laboratory evaluation in 3 to 5 days. He understands the importance of appropriate hydration during the hot summer months. I spent 35 minutes in [id number]-il-[id number] time with the patient, at bedside and nursing staff (Arturo PALAFOX) concerning the discharge process. We discussed the admitting diagnoses and hospital course. We discussed identified improvement and the patient's desire to be discharged. We reviewed inpatient studies and imaging. The patient voiced understanding on the importance of follow-up with his primary care provider and specialist(s). The patient plans to be compliant with the medication regimen prescribed and follow-up appointments. He understands that he can return to the emergency department with any sudden changes or concerns. Exam Data for Last 24 hours Vital signs and Labs for Last 24 Hours: Temp Pulse Resp BP Pulse Ox O2 Del Method O2 Flow Rate 99.4 F 91 H 18 116/62 91 L Nasal Cannula 3 03/16/24 08:00 03/16/24 08:00 03/16/24 08:00 03/16/24 08:00 03/16/24 08:00 03/16/24 08:25 03/16/24 08:25 Laboratory Results - last 24 hr 03/15/24 11:05: POC Glucose 196 H 03/15/24 14:00: POC Glucose 215 H 03/15/24 15:53: POC Glucose 200 H 03/15/24 20:29: POC Glucose 218 H 03/16/24 05:29: POC Glucose 182 H I & O for Last 24 hours: Intake & Output 03/13/24 03/14/24 03/15/24 03/16/24 23:59 23:59 23:59 23:59 Intake Total 500 / 500 1608 / 1608 Output Total 0 / 0 2250 / 2250 Balance 500 / 500 -642 / -642 Weight 118.841 kg 120.519 kg Constitutional Constitutional: no acute distress, morbidly obese, chronically ill appearing and cooperative *Routine HEENT Exam Head: Present normocephalic Eye: Present EOMI and PERRL ENT: Present mucous membranes moist *Routine Neck Exam Neck: Present supple; Absent lymphadenopathy *Routine Respiratory Exam Respiratory: Present rhonchi, normal respiratory effort and symmetric chest movement *Routine Cardiovascular Exam Cardiovascular: Present RRR *Routine Abdominal Exam Abdominal: Present soft; Absent tenderness *Routine Extremities Exam Comments: Left upper extremity in sling, lower extremity stasis dermatitis with excoriations (chronic) *Routine Skin Exam Skin: Present warm; Absent rash *Routine Neurological Exam Neurological: Present alert and moving all extremities; Absent sensory deficit or motor deficit Routine Psychiatric Exam Psychiatric: Present cooperative Results Data Completed and Pending Labs on day of discharge: Labs from last 24 hours 03/16/24 03/15/24 03/15/24 05:29 20:29 15:53 POC Glucose 182 H 218 H 200 H 03/15/24 03/15/24 14:00 11:05 POC Glucose 215 H 196 H DS: Diagnosis Discharge Diagnosis (1) Fall: Status: Acute Code(s): W19.XXXA - Unspecified fall, initial encounter Qualifiers: Encounter type: initial encounter Qualified Code(s): W19.XXXA - Unspecified fall, initial encounter (2) Closed fracture of neck of left humerus: Status: Acute Code(s): S42.212A - Unspecified displaced fracture of surgical neck of left humerus, initial encounter for closed fracture Qualifiers: Encounter type: initial encounter Qualified Code(s): S42.212A - Unspecified displaced fracture of surgical neck of left humerus, initial encounter for closed fracture (3) Diabetes type 2, uncontrolled: Status: Acute Code(s): E11.65 - Type 2 diabetes mellitus with hyperglycemia Qualifiers: Glycemic state: with hyperglycemia Qualified Code(s): E11.65 - Type 2 diabetes mellitus with hyperglycemia (4) COPD (chronic obstructive pulmonary disease): Status: Acute Code(s): J44.9 - Chronic obstructive pulmonary disease, unspecified Qualifiers: COPD type: unspecified COPD Qualified Code(s): J44.9 - Chronic obstructive pulmonary disease, unspecified (5) Venous stasis ulcers of both lower extremities: Status: Chronic Code(s): I83.019 - Varicose veins of right lower extremity with ulcer of unspecified site; I83.029 - Varicose veins of left lower extremity with ulcer of unspecified site; L97.919 - Non-pressure chronic ulcer of unspecified part of right lower leg with unspecified severity; L97.929 - Non-pressure chronic ulcer of unspecified part of left lower leg with unspecified severity (6) HIV disease: Status: Chronic Code(s): B20 - Human immunodeficiency virus [HIV] disease (7) Obesity: Status: Acute Code(s): E66.9 - Obesity, unspecified Qualifiers: Body mass index: BMI 45.0-49.9 Obesity classification: adult class 3 (BMI >= 40) Obesity type: due to excess calories Serious obesity comorbidity presence: with serious comorbidity Qualified Code(s): E66.01 - Morbid (severe) obesity due to excess calories; Z68.42 - Body mass index (BMI) 45.0-49.9, adult Meds Home Medications and Allergies Home Medications Medication Instructions Recorded Confirmed Type bictegravir 50 mg-emtricitabine 1 each PO DAILY 11/13/18 03/15/24 History 200 mg-tenofovir alafenam 25 mg tablet finasteride 5 mg tablet 5 mg PO DAILY 11/13/18 03/15/24 History insulin regular hum U-500 conc 500 65 unit SQ BID Diabetes 11/13/18 03/15/24 History unit/mL subcutaneous soln metoprolol tartrate 100 mg tablet 100 mg PO BID 11/13/18 03/15/24 History aspirin 81 mg tablet,delayed 81 mg PO DAILY 08/02/19 03/15/24 History release gabapentin 300 mg capsule 900 mg PO 0900,1700 08/02/19 03/15/24 History bumetanide 2 mg tablet 2 mg PO DAILY Fluid 01/06/20 03/15/24 History tamsulosin 0.4 mg capsule 0.4 mg PO HS PROSTATE 01/06/20 03/15/24 History methocarbamol 750 mg tablet 750 mg PO Q6HP PRN Muscle Spasm 11/26/20 03/15/24 History pantoprazole 40 mg tablet,delayed 40 mg PO BID 11/26/20 03/15/24 History release cholecalciferol (vitamin D3) 25 25 mcg PO DAILY 12/30/20 03/15/24 History mcg (1,000 unit) capsule ascorbic acid (vitamin C) 500 mg 500 mg PO DAILY 09/16/23 03/15/24 History capsule ferrous sulfate 325 mg (65 mg 325 mg PO DAILY 09/16/23 03/15/24 History iron) tablet (Iron (ferrous sulfate)) venlafaxine 150 mg 150 mg PO DAILY 09/16/23 03/15/24 History capsule,extended release 24 hr (Effexor XR) alogliptin 12.5 mg tablet 12.5 mg PO DAILY 03/15/24 03/15/24 History bumetanide 2 mg tablet 2 mg PO DAILYP@2100 PRN Fluid 03/15/24 03/15/24 History empagliflozin 25 mg tablet 12.5 mg PO DAILY 03/15/24 03/15/24 History gabapentin 300 mg capsule 1,200 mg PO HS 03/15/24 03/15/24 History tramadol 50 mg tablet 50 mg PO Q6HP PRN Severe Pain 03/15/24 03/15/24 History (Scale Score 7-10) amoxicillin 875 mg-potassium 1 tab PO BID #20 tabs 03/16/24 Rx clavulanate 125 mg tablet New Prescriptions to Start Prescriptions: amoxicillin-pot clavulanate Emeric,Travis Allergies Allergy/AdvReac Type Severity Reaction Status Date / Time SANDRA Inhibitors Allergy Unknown Unknown Verified 04/04/21 15:53 allergy reaction clofibrate Allergy Unknown Unknown Verified 04/04/21 15:53 allergy reaction enalapril Allergy Unknown Unknown Verified 04/04/21 15:53 allergy reaction erythromycin base Allergy Unknown Unknown Verified 04/04/21 15:53 allergy reaction gemfibrozil Allergy Unknown Unknown Verified 04/04/21 15:53 allergy reaction hepatitis A virus vaccine Allergy Unknown Unknown Verified 04/04/21 15:53 allergy reaction hydralazine Allergy Unknown Unknown Verified 04/04/21 15:53 allergy reaction Macrolide Antibiotics Allergy Unknown Unknown Verified 04/04/21 15:53 allergy reaction pravastatin [From Pravachol] Allergy Unknown Unknown Verified 04/04/21 15:53 allergy reaction Ncdivik-XTC-UvI Reductase Allergy Unknown Unknown Verified 04/04/21 15:53 Inhibitor allergy [Gucgjoj-Axo-Cxy Reductase reaction Inhibitor] Discharge Plan Disposition Patient Disposition: Home Health Service Condition: Serious Discharge Order Discharge Orders: Discharge Order (Routine); Ordered 03/16/24 Ordered By: Travis Lott Follow up Plan Follow up with: Sabas Johnston MD [Staff Physician] - 1 week (Please call for follow up appt. ) Prescriptions/Medication Reconciliation: New amoxicillin-pot clavulanate 875-125 mg tablet 1 tab PO BID Qty: 20 0RF Continued cholecalciferol (vitamin D3) 25 mcg (1,000 unit) capsule 25 mcg PO DAILY finasteride 5 MG tablet 5 mg PO DAILY metoprolol tartrate 100 MG tablet 100 mg PO BID rpjmhfijm-dfobvquo-jklrpym ala 1 EACH tablet 1 each PO DAILY insulin regular hum U-500 conc 500 UNIT/ML solution 65 unit SQ BID aspirin 81 MG tablet,delayed release (DR/EC) 81 mg PO DAILY gabapentin 300 MG capsule 900 mg PO 0900,1700 bumetanide 2 MG tablet 2 mg PO DAILY tamsulosin 0.4 MG capsule 0.4 mg PO HS pantoprazole 40 MG tablet,delayed release (DR/EC) 40 mg PO BID methocarbamol 750 MG tablet 750 mg PO Q6HP PRN (Reason: Muscle Spasm) venlafaxine [Effexor XR] 150 mg Capsule,Extended Release 24hr 150 mg PO DAILY ferrous sulfate [Iron (ferrous sulfate)] 325 mg (65 mg iron) Tablet 325 mg PO DAILY ascorbic acid (vitamin C) 500 mg Capsule 500 mg PO DAILY Rx Instructions: TAKE WITH IRON SUPPLEMENT empagliflozin 25 mg Tablet 12.5 mg PO DAILY tramadol 50 mg tablet 50 mg PO Q6HP PRN (Reason: Severe Pain (Scale Score 7-10)) alogliptin 12.5 mg Tablet 12.5 mg PO DAILY bumetanide 2 mg Tablet 2 mg PO DAILYP@2100 PRN (Reason: Fluid) Patient Comments: GIVE ADDITIONAL EVENING DOSE FOR 3 POUND WEIGHT GAIN IN 24 HOURS OR 5 POUND WEIGHT GAIN IN A WEEK. Rx Instructions: GIVE ADDITIONAL EVENING DOSE FOR 3 POUND WEIGHT GAIN IN 24 HOURS OR 5 POUND WEIGHT GAIN IN A WEEK. gabapentin 300 mg Capsule 1,200 mg PO HS Discontinued bfleo-[id number]-fish oil 1 EACH capsule 1 each PO DAILY Problem Reconciliation Problems Reviewed?: Yes Patient Discharge Instructions ACTIVITY: Up with assistance DIET: diabetic diet and cardiac Additional Instructions: Fall precautions Patient Instructions: DI for Humeral Fracture Providers Primary Care Provider: Provider,Referral Admit Provider: Travis Lott Attending Provider: Travis Lott
[2024-03-16 11:31] LABS: POC Glucose,Bedside 273 (70-110)
--- NOTE | 2024-03-16 12:16 | P.PN_ITS ---
Subjective *Date: 03/16/24 *Time: 12:16 Interval history: The patient is seen and examined at bedside today. I am accompanied by his nurse Arturo. The patient is accompanied by his . He requested to be discharged home and we recommended transition to rehab with his left humeral fracture and current dependence on rolling walker to ambulate. The patient declined transition to rehab and insisted on being discharged home with home health. PT evaluated the patient and recommended transition to rehab. His requested the patient be transition to rehab as well. His daughter Omkar an ED nurse presented to have further conversation with the patient and provider recommendations. The patient has agreed to transition care to rehab and case management has been consulted. Nursing staff report that the patient remains afebrile with stable heart rates blood pressures and saturating appropriately on his chronic oxygen requirement of 2 L. He reports adequate pain control. We have reviewed and discussed his morning labs including a mild leukocytoses and elevated creatinine. I have encouraged oral fluid resuscitation and added antibiotic therapy for his chronic lower extremity wounds secondary to chronic venous stasis dermatitis. Exam Data for Last 24 hours Vital signs and Labs for Last 24 Hours: Temp Pulse Resp BP Pulse Ox O2 Del Method O2 Flow Rate 99.4 F 91 H 18 116/62 91 L Nasal Cannula 3 03/16/24 08:00 03/16/24 08:00 03/16/24 08:00 03/16/24 08:00 03/16/24 08:00 03/16/24 08:25 03/16/24 08:25 Laboratory Results - last 24 hr 03/15/24 14:00: POC Glucose 215 H 03/15/24 15:53: POC Glucose 200 H 03/15/24 20:29: POC Glucose 218 H 03/16/24 05:29: POC Glucose 182 H 03/16/24 11:22: POC Glucose 273 H I & O for Last 24 hours: Intake & Output 03/13/24 03/14/24 03/15/24 03/16/24 23:59 23:59 23:59 23:59 Intake Total 500 / 500 1608 / 1608 Output Total 0 / 0 3050 / 3050 Balance 500 / 500 -1442 / -1442 Weight 118.841 kg 120.519 kg Constitutional Constitutional: no acute distress, morbidly obese, chronically ill appearing and cooperative *Routine HEENT Exam Head: Present normocephalic Eye: Present EOMI and PERRL ENT: Present mucous membranes moist *Routine Neck Exam Neck: Present supple; Absent lymphadenopathy *Routine Respiratory Exam Respiratory: Present rhonchi, normal respiratory effort and symmetric chest movement *Routine Cardiovascular Exam Cardiovascular: Present RRR *Routine Abdominal Exam Abdominal: Present soft; Absent tenderness *Routine Extremities Exam Comments: Left upper extremity in sling, lower extremity chronic venous stasis dermatitis with excoriated wounds *Routine Skin Exam Skin: Present warm; Absent rash Comments: Excoriated lower extremity wounds *Routine Neurological Exam Neurological: Present alert and moving all extremities; Absent sensory deficit or motor deficit Routine Psychiatric Exam Psychiatric: Present cooperative Assessment and Plan *Assessment and plan (1) Closed fracture of neck of left humerus: Status: Acute Qualifiers: Encounter type: initial encounter Qualified Code(s): S42.212A - Unspecified displaced fracture of surgical neck of left humerus, initial encounter for closed fracture Category: Medical Code(s): S42.212A - Unspecified displaced fracture of surgical neck of left humerus, initial encounter for closed fracture (2) Fall: Status: Acute Qualifiers: Encounter type: initial encounter Qualified Code(s): W19.XXXA - Unspecified fall, initial encounter Category: Medical Code(s): W19.XXXA - Unspecified fall, initial encounter (3) Diabetes type 2, uncontrolled: Status: Acute Qualifiers: Glycemic state: with hyperglycemia Qualified Code(s): E11.65 - Type 2 diabetes mellitus with hyperglycemia Category: Medical Code(s): E11.65 - Type 2 diabetes mellitus with hyperglycemia (4) COPD (chronic obstructive pulmonary disease): Status: Acute Qualifiers: COPD type: unspecified COPD Qualified Code(s): J44.9 - Chronic obstructive pulmonary disease, unspecified Category: Medical Code(s): J44.9 - Chronic obstructive pulmonary disease, unspecified (5) Venous stasis ulcers of both lower extremities: Status: Chronic Category: Medical Code(s): I83.019 - Varicose veins of right lower extremity with ulcer of unspecified site; I83.029 - Varicose veins of left lower extremity with ulcer of unspecified site; L97.919 - Non-pressure chronic ulcer of unspecified part of right lower leg with unspecified severity; L97.929 - Non-pressure chronic ulcer of unspecified part of left lower leg with unspecified severity (6) HIV disease: Status: Chronic Category: Medical Code(s): B20 - Human immunodeficiency virus [HIV] disease (7) Obesity: Status: Acute Qualifiers: Body mass index: BMI 45.0-49.9 Obesity classification: adult class 3 (BMI >= 40) Obesity type: due to excess calories Serious obesity comorbidity presence: with serious comorbidity Qualified Code(s): E66.01 - Morbid (severe) obesity due to excess calories; Z68.42 - Body mass index (BMI) 45.0-49.9, adult Category: Medical Code(s): E66.9 - Obesity, unspecified Plan 68-year-old male with multiple chronic medical conditions including HIV disease on antiviral therapy with immunocompromise state, poorly controlled type 2 piedad betes, previous T9 fracture, multiple falls, uses walker to ambulate, COPD on home O2 at 2L. He presents to the ER with EMS and family after a fall. on arrival patient c/o pain to left shoulder pain. X-rays consistent with impacted head humeral fracture. Orthopedic consulted. Problems addressed as follows: Closed fracture of neck of the left humerus secondary to mechanical fall Multiple falls and previous hospitalizations Chronically ambulates with walker Orthopedic consultation reviewed and recommended nonsurgical management Left arm in sling PT/OT evaluations Case management consult for next site of care Fall precautions Pain control with opioid therapy Uncontrolled diabetes with peripheral neuropathy Routine blood sugar monitoring Hemoglobin A1c Basal insulin therapy Sliding scale insulin therapy Gabapentin therapy SGLT2 inhibitor therapy Carbohydrate controlled diet COPD not in exacerbation Home oxygen requirement 2 L via nasal cannula Pulse oximetry monitoring Oxygen therapy to maintain appropriate oxygen saturations Gay/Jessika inhalation therapy Chronic venous stasis dermatitis lower extremities Chronic lower extremity wounds Currently followed by home health care Intolerant to compression stockings/Unna boot therapy Loop diuretic therapy Wound culture with Staph aureus Augmentin twice daily Trending labs and inflammatory markers HIV disease Immunocompromise status Resume home antiviral medication BMI 37 Nutrition education Calorie appropriate diet Outpatient evaluation for sleep study VTE prophylaxis: Lovenox CODE STATUS: Full code POA: Kimberley- The patient is hospitalized day 1 with above diagnoses. We appreciate lending consultant evaluation and recommendations. Case management is assisting with discharge planning including transitioning to rehab. Barriers to discharge currently include identifying facility for transition of care, insurance certification process and transportation needs. Expected day of discharge once facility is identified and insurance certification is complete and transportatio n needs are assessed.
--- NOTE | 2024-03-16 12:31 | HMH.PTEV ---
Physical Therapy Evaluation Rehab PT IP Evaluation Start: 03/15/24 04:49 Freq: ONCE Status: Active Protocol: Document 03/16/24 12:26 BASSEM (Rec: 03/16/24 12:31 BASSEM [email or web address]) Subjective/History History History Per H&P: This is a 68-year- old female with multiple chronic medical conditions including poorly controlled type 2 diabetes, previous spine fracture, meniscus injury, uses walker to ambulate, COPD presents to the ER with EMS and family after fall. Patient stated he stood up out of a chair and turned, losing his balance and falling backwards landing primarily on the left arm/ shoulder. He did not had LOC. Patient is complaining of pain in the left humerus and left shoulder. He denies hitting his head or losing consciousness, no on AOC. Patient denies new pain in his other extremities, back, chest, or abdomen, difficulty breathing or chest pain. Admitted for further management. Subjective Subjective PLOF per pt and pt's family report: Required assistance with ADLs and ambulation using a RW. Lives with family in single-story home with 2 DEANNA. Multiple falls in the past month. New diagnosis of cancer in past 12 No months? Rehab PT IP Eval Objective Appearance Patient Behavior Appropriate,Cooperative Patient Orientation Person,Situation Difficulty following instructions none Speech Pattern Clear Ambulation Patient Able to Ambulate No Balance Ability to Arise Able, uses arms to help Sitting Balance Steady, safe Standing Balance Unsteady Transfers Sit to Stand Bed Transfer Ability Maximum x 1 (75% assist) Rehab PT IP prob,goals,plan Problems Date of Evaluation: 03/16/24 PT IP Problems Bed Mobility,Transfers,Gait, Balance,Safety Rehab Potential Rehab Potential Good Equipment Needs Assistive Devices Rolling / Wheeled Walker Plan PT Intervention Plan Bed Mobility,Transfers,Gait, Balance,Safety,Therapeutic Exercise Other Intervention Plan 1-2 times PT Plan Frequency Daily Duration LOS Discharge Goals Sit to Stand Chair Transfer Ability Moderate x 1 (50% assist) Ambulation Assistive Device Rolling Walker Ambulation Distance (feet) 5 Discharge Plan PT Discharge Plan Initial physical therapy evaluation performed. Patient presents below baseline at this time in functional mobility, transfers, and strength. Pt not safe to return home at this time d/t current level of functional mobility. Pt required Max A x 1 person to stand from recliner surface using his RUE and BLE. Pt with impaired safety awareness per history of frequent falling. PT recommending short-term rehabilitation stay upon d/c from [facility]. Pt would benefit from skilled PT while at [facility] to prevent further functional decline and maximize safety with mobility. Eval Complexity Eval Charge Codes 59618 - Moderate Complexity PHYSICIAN CERTIFICATION: I certify the specified therapy services for Rachid Love JR are required, authorized, and reviewed every 30 days.
--- NOTE | 2024-03-16 15:52 | PC.NURSE ---
patient is A&Ox4 and has remained on 3.5L NC with sats in the low 90s, VSS. He has complained of pain in his fractured arm periodically throughout the day, treated per NOV. Handley was discontinued per MD verbal order. Physical therapy saw the patient today while family was present and the need for rehab placement was discussed. Bed is in the lowest position, call light in reach.
[2024-03-16 16:00] VITALS: BP 120/67; PULSE 81; RESP 18; TEMP 37.1; O2SAT 94
[2024-03-16 18:14] LABS: Microscopic, Urine URINE MICROSCOPIC (MICROSCOPIC)
[2024-03-16 18:28] LABS: Appearance,Urine CLEAR (Clear); Bilirubin,Urine Negative (Negative); Blood, Urine 3+ (Negative); Color,Urine YELLOW (Yellow); Glucose,Urine (UA) 3+ (Negative); Ketones,Urine Negative (Negative); Leukocyte Esterase,Urine 2+ (Negative); Nitrate,Urine Negative (Negative); Protein,Urine TRACE (Negative)
[2024-03-16 18:38] LABS: Amorphous Sediment,Urine Trace /lpf; WBC,Urine 20-50 #/hpf (0-3)
[2024-03-16 18:39] LABS: Bacteria,Urine 1+ /lpf
[2024-03-16 18:42] LABS: POC Glucose,Bedside 211 (70-110)
[2024-03-16 20:00] VITALS: BP 121/64; PULSE 84; RESP 18; TEMP 36.8; O2SAT 93
[2024-03-16] MEDS: AMOXICILLIN/CLAVULANATE POTASSIUM 875/125MG TABLET 1 EACH PO (20:23)
[2024-03-16] MEDS: PT OWN MED *TAMSULOSIN 0.4 MG CAP 1 EACH PO (20:25)
[2024-03-16] MEDS: ALBUTEROL-HFA 90MCG/PUFF INHALER 8GM 2 PUFF IH (20:27)
[2024-03-16 20:29] VITALS: O2SAT 89
[2024-03-16 20:58] LABS: POC Glucose,Bedside 209 (70-110)
[2024-03-16] MEDS: KETOROLAC 30MG/ML VIAL 30 MG IV (22:48)
[2024-03-17] MEDS: OXYCODONE 5MG IMMEDIATE RELEASE TABLET 10 MG PO ×2 (00:11→11:05)
[2024-03-17] MEDS: ACETAMINOPHEN 500MG TAB 1000 MG PO ×2 (00:13→23:02)
[2024-03-17] MEDS: OXYCODONE 5MG IMMEDIATE RELEASE TABLET 5 MG PO ×2 (02:38→19:59)
[2024-03-17 04:00] VITALS: BP 100/58; PULSE 72; RESP 16; TEMP 36.7; O2SAT 94; BMI 37.0
[2024-03-17 06:08] LABS: POC Glucose,Bedside 155 (70-110)
[2024-03-17] MEDS: humaLOG 100 UNITS/ML 10ML VIAL (SSI) SQ ×4 (06:20→20:45)
[2024-03-17 07:49] VITALS: BP 108/60; PULSE 77; RESP 18; TEMP 36.4; O2SAT 91
--- NOTE | 2024-03-17 08:24 | SW/DCPLANNER ---
Addendum entered by [facility] 03/18/24 13:18: Per [place] patient is approved for SNF level of care. Addendum entered by [facility] 03/18/24 11:49: Per [place] precert is still pending at this time. I have update patient/family and MD. Addendum entered by [facility] 03/17/24 15:43: [place] [facility]an[facility]/ [facility] stated that precert will be started today for SNF level of care. Addendum entered by [facility] 03/17/24 13:38: [facility] is unable to accept patient. Patient is agreeable for patient information to be faxed to [facility] at this time. Original Note: I spoke w/ this patient regarding plans once medically stable for discharge. PT evaluated patient and recommended SNF level of care at time of discharge. Patient stated that he is not happy w/ this decision but is agreeable to short term placement. Patient is only interested in placement at [facility] at this time. Patient stated that if [facility] can NOT accept he would be interested in [facility]. Patient voiced that [facility], [facility] and [facility] are NOT options for SNF for him. I will fax information to [facility]/ [facility] and follow up once information is reviewed.
--- NOTE | 2024-03-17 09:07 | HMH.OTEV ---
OT Inpatient Evaluation Rehab OT IP Evaluation Start: 03/15/24 04:49 Freq: ONCE Status: Active Protocol: Document 03/17/24 09:01 [email or web address] (Rec: 03/17/24 09:07 GAEL [id number]) Rehab OT IP Assessment Subjective History This is a 68-year-old female with multiple chronic medical conditions including poorly controlled type 2 diabetes, previous spine fracture, meniscus injury, uses walker to ambulate, COPD presents to the ER with EMS and family after fall. Patient stated he stood up out of a chair and turned, losing his balance and falling backwards landing primarily on the left arm/ shoulder. He did not had LOC. Patient is complaining of pain in the left humerus and left shoulder. He denies hitting his head or losing consciousness, no on AOC. Patient denies new pain in his other extremities, back, chest, or abdomen, difficulty breathing or chest pain. Admitted for further management. Patient lives at home alone but does stay occasionally per patient. Independent with ADLs and fx'l mobility prior to hospitalization. hx of falling at home. Uses rollator to ambulate. Subjective I can try to get up. Instructed Patient on proper hand and foot placement to complete bed mobility from supine->sit @ EOB requiring Max A X2. Patient demonstrated good dynamic sitting balance with sling luis on L UE. Patient exhibit poor pain tolerance with needing extensive RB during bed mobility tasks. Instructed Patient on proper hand and foot placement to complete sit ->stand pivot transfer to recliner with Mod A x2. Left Patient sitting upright in recliner with needs met at end of session. Objective Patient Orientation Person,Name,Age,Birthday,Year Right Upper Extremity Gross ROM WFL Left Upper Extremity Gross ROM Not Tested Bed Mobility bed mobility - supine/sit Assist Level Maximum x 2 (75% assist) Transfer Training Sit/Stand/Pivot Transfer Assist Level Moderate x 2 (50% assist) Chair Transfer Ability Moderate x 2 (50% assist) Chair Transfer Technique Stand Step Pivot Chair Transfer Assistive Devices Rolling Walker Rehab OT IP prob,goals,plan Problems Date of Evaluation: 03/17/24 OT IP Problems Bed Mobility,Transfers,Balance ,Self care,Safety Rehab Potential Rehab Potential Good Equipment Needs Assistive Devices Rolling / Wheeled Walker Plan OT intervention Plan Bed Mobility,Transfers,Balance ,Self care,Safety,Therapeutic Exercise OT Plan Frequency Daily Duration LOS Discharge Goals Bed Mobility Ability Assistance x1 Sit to Stand Chair Transfer Ability Maximum x 1 (75% assist) Chair Transfer Ability Maximum x 1 (75% assist) Chair Transfer Technique Sit to/from Ambulatory Chair Transfer Assistive Devices None Lower Body Dressing Ability Unable/dependent Discharge Plan OT Discharge Plan Recommend placement at this time. Patient is unable to return home with limited care at this time. Patient is requiring increase amount of assistance for bed mobility and transfers to complete safely. Continue skilled OT IP services while here at [facility]. Eval Complexity Eval Charge Codes 04793 - Low Complexity PHYSICIAN CERTIFICATION: I certify the specified therapy services for Rachid Rubalcavaquin MEDINA are required, authorized, and reviewed every 30 days.
[2024-03-17] MEDS: AMOXICILLIN/CLAVULANATE POTASSIUM 875/125MG TABLET 1 EACH PO ×2 (09:16→20:44)
[2024-03-17] MEDS: GABAPENTIN 300MG CAPSULE 300 MG PO ×3 (09:16→20:44)
[2024-03-17] MEDS: ENOXAPARIN 40MG/0.4ML SYRINGE 40 MG SQ (09:16)
[2024-03-17] MEDS: METHOCARBAMOL 500MG TABLET 1000 MG PO ×3 (09:17→20:44)
[2024-03-17] MEDS: FINASTERIDE 5 MG 1 EACH PO (09:18)
[2024-03-17] MEDS: VENLAFAXINE 150 MG 1 EACH PO (09:18)
[2024-03-17] MEDS: EMPAGLIFLOZIN 25 MG 0.5 EACH PO (09:19)
[2024-03-17] MEDS: BIKTARVY 1 EACH PO (09:19)
[2024-03-17] MEDS: METOPROLOL TART 1 EACH PO ×2 (09:19→20:45)
[2024-03-17] MEDS: FERROUS SULFATE 324 MG 1 EACH PO (09:20)
[2024-03-17] MEDS: BUMETANIDE 2 MG 1 EACH PO (09:20)
[2024-03-17] MEDS: PANTOPRAZOLE 40 MG 1 EACH PO ×2 (09:20→20:45)
[2024-03-17] MEDS: CHOLECALCIFEROL 25 MCG 1 EACH PO (09:21)
[2024-03-17] MEDS: PT OWN MED *ASPIRIN 81 MG EC TAB 1 EACH PO (09:21)
[2024-03-17] MEDS: ASCORBIC ACID 500 MG 1 EACH PO (09:21)
[2024-03-17 11:07] LABS: POC Glucose,Bedside 197 (70-110)
--- NOTE | 2024-03-17 11:44 | A.OFFVIS_ITS ---
HPI Data of Consult Patient: new to practice Consult date: 03/17/24 Requesting Physician: Travis Lott MD Primary Care Provider: Referral Provider, MD Consult Narrative Reason for consult: Left shoulder pain History of present illness: Mr. Love is a 68 year old male who presents today as a new patient. He is a consult from the floor. Patient does state that on late Sunday early Sunday morning he ended up having a fall at home which landed on his left shoulder. Patient was experiencing severe pain and came in for evaluation. Patient did end up being diagnosed with a nondisplaced shoulder fracture and was admitted for pain control. Today he rates his pain a 7 out of 10. He states that it is a little bit better. Patient does state that they are trying to get him in for rehab. Patient states that he has not had injections in the past. Patient has been prescribed tramadol in the past from an outside provider. His Valentin has been reviewed and is appropriate. CC: Travis Lott MD [facility] Disclaimer: The information contained in this section may have been updated after the patient was seen, as this information can be updated by other users. Social History (Updated 03/15/24 @ 05:41 by Fred Dickinson RN) Smoking Status: Never smoker second hand exposure: No alcohol intake: never substance use type: denies use current occupational status: retired Travel in the last 8 weeks: None household members: spouse and family housing: house current occupational exposures/hazards: No caffeine: Yes Review of Systems Review of Systems Review of systems:: pertinent systems reviewed and negative unless documented below Review of systems (narrative): Review of Systems: General: No recent weight changes, no fever, no sleep disturbances Respiratory: No cough, no shortness of air, no recurring pulmonary infections Cardiovascular/peripheral vascular: No chest pain, no palpitations, no edema, no shortness of breath Gastrointestinal: No new onset incontinence, normal bowel movements reported Genitourinary: No new onset incontinence Musculoskeletal: Left shoulder pain Psychiatric: [Normal mood/affect] Neurological: [Denies weakness in extremities], [denies balance issues] Constitutional Constitutional: Denies headache(s) and Denies weakness ENT Ears, Nose, Mouth, and Throat: Denies dizziness and Denies headache(s) *Musculoskeletal Musculoskeletal: Denies numbness and Denies tingling *Neurologic Neurologic: Denies dizziness, Denies headache(s), Denies numbness, Denies tingling and Denies weakness Meds Home Medications and Allergies Home Medications Medication Instructions Recorded Confirmed Type bictegravir 50 mg-emtricitabine 1 each PO DAILY 11/13/18 03/15/24 History 200 mg-tenofovir alafenam 25 mg tablet finasteride 5 mg tablet 5 mg PO DAILY 11/13/18 03/15/24 History insulin regular hum U-500 conc 500 65 unit SQ BID Diabetes 11/13/18 03/15/24 History unit/mL subcutaneous soln metoprolol tartrate 100 mg tablet 100 mg PO BID 11/13/18 03/15/24 History aspirin 81 mg tablet,delayed 81 mg PO DAILY 08/02/19 03/15/24 History release gabapentin 300 mg capsule 900 mg PO 0900,1700 08/02/19 03/15/24 History bumetanide 2 mg tablet 2 mg PO DAILY Fluid 01/06/20 03/15/24 History tamsulosin 0.4 mg capsule 0.4 mg PO HS PROSTATE 01/06/20 03/15/24 History methocarbamol 750 mg tablet 750 mg PO Q6HP PRN Muscle Spasm 11/26/20 03/15/24 History pantoprazole 40 mg tablet,delayed 40 mg PO BID 11/26/20 03/15/24 History release cholecalciferol (vitamin D3) 25 25 mcg PO DAILY 12/30/20 03/15/24 History mcg (1,000 unit) capsule ascorbic acid (vitamin C) 500 mg 500 mg PO DAILY 09/16/23 03/15/24 History capsule ferrous sulfate 325 mg (65 mg 325 mg PO DAILY 09/16/23 03/15/24 History iron) tablet (Iron (ferrous sulfate)) venlafaxine 150 mg 150 mg PO DAILY 09/16/23 03/15/24 History capsule,extended release 24 hr (Effexor XR) alogliptin 12.5 mg tablet 12.5 mg PO DAILY 03/15/24 03/15/24 History bumetanide 2 mg tablet 2 mg PO DAILYP@2100 PRN Fluid 03/15/24 03/15/24 History empagliflozin 25 mg tablet 12.5 mg PO DAILY 03/15/24 03/15/24 History gabapentin 300 mg capsule 1,200 mg PO HS 03/15/24 03/15/24 History tramadol 50 mg tablet 50 mg PO Q6HP PRN Severe Pain 03/15/24 03/15/24 History (Scale Score 7-10) amoxicillin 875 mg-potassium 1 tab PO BID #20 tabs 03/16/24 Rx clavulanate 125 mg tablet New Prescriptions to Start Prescriptions: amoxicillin-pot clavulanate Emeric,Travis Allergies Allergy/AdvReac Type Severity Reaction Status Date / Time SANDRA Inhibitors Allergy Unknown Unknown Verified 04/04/21 15:53 allergy reaction clofibrate Allergy Unknown Unknown Verified 04/04/21 15:53 allergy reaction enalapril Allergy Unknown Unknown Verified 04/04/21 15:53 allergy reaction erythromycin base Allergy Unknown Unknown Verified 04/04/21 15:53 allergy reaction gemfibrozil Allergy Unknown Unknown Verified 04/04/21 15:53 allergy reaction hepatitis A virus vaccine Allergy Unknown Unknown Verified 04/04/21 15:53 allergy reaction hydralazine Allergy Unknown Unknown Verified 04/04/21 15:53 allergy reaction Macrolide Antibiotics Allergy Unknown Unknown Verified 04/04/21 15:53 allergy reaction pravastatin [From Pravachol] Allergy Unknown Unknown Verified 04/04/21 15:53 allergy reaction Iuqarvn-RMS-DeW Reductase Allergy Unknown Unknown Verified 04/04/21 15:53 Inhibitor allergy [Vvnkomt-Iyn-Fov Reductase reaction Inhibitor] Objective Vital signs: Temp Pulse Resp BP Pulse Ox O2 Del Method O2 Flow Rate 97.6 F 77 18 108/60 L 91 L Nasal Cannula 3 03/17/24 07:49 03/17/24 07:49 03/17/24 07:49 03/17/24 07:49 03/17/24 07:49 03/17/24 11:00 03/17/24 11:00 FiO2 28 03/15/24 18:45 Narrative: Physical Exam: General: Alert and oriented x3, no acute distress, pleasant and cooperative Lungs: Respirations even and unlabored, symmetrical chest expansion Eyes: PERRL Musculoskeletal: Flexion and extension of left shoulder somewhat guarded secondary to pain Neurological: Speech clear, no gross sensory deficit Additional findings Additional findings: COMPARISON: CR XR SHOULDER LT MIN 2V 03/15/2024 3:39 AM FINDINGS: Bones/joints: Probable impacted fracture of the humeral head. This is more convincing on this view compared to the other views. Soft tissues: Normal. IMPRESSION: Probable impacted fracture of the humeral head. This is more convincing on this view compared to the other views. ARISON: CT CERVICAL SPINE WO CON 09/16/2023 7:02 PM FINDINGS: Vertebrae: No acute fracture. Normal alignment. Prominent anterior osteophytes. 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 Degenerative changes of atlantodental articulation. Early to mild degenerative disc disease within mid cervical spine. Mild to moderate degenerative disc disease within lower cervical spine. Mastoid air cells: Partial opacification of mastoids. Lungs: Unremarkable as visualized. Vasculature: Mild atherosclerotic disease. Soft tissues: Unremarkable. IMPRESSION: 1. No fracture. 2. Mastoid disease. Assessment and Plan *Assessment and plan (1) Closed fracture of neck of left humerus: Status: Acute Qualifiers: Encounter type: initial encounter Qualified Code(s): S42.212A - Unspecified displaced fracture of surgical neck of left humerus, initial encoun ter for closed fracture Category: Medical Code(s): S42.212A - Unspecified displaced fracture of surgical neck of left humerus, initial encounter for closed fracture Plan Patient is experiencing significant pain in his left shoulder related to a nondisplaced impacted fracture of his left humeral head. I did discuss with the patient in future we may be able to do injection therapy such as an intra- articular shoulder injection however due to the recent injury we would confirm with orthopedics this was not contraindicated. I have counseled the patient that I do recommend that this be at a later date once he has had time for more healing. I will order the patient a compounded cream. Patient did appear very fatigued and was falling asleep during our consultation. Patient did also mention that it was discussed to him regarding a possible femoral fracture as well. I did counselor marriage and family the patient that I am not aware of any fracture at this location however I will go back and look at his other imaging. Patient was counseled that we will make sure that he has our office information so he can schedule a follow-up at a later date. Patient is agreeable to this. We will follow-up with the patient once he is released home after his additional rehab. I did review the chart and I did not see anything that mentioned a femoral fracture. Patient has been instructed to contact the clinic with any concerns before the next appointment. Dr. Lee has reviewed this note and agrees with this plan of care. This note was dictated using voice recognition software and make contain errors or omissions.
[2024-03-17 12:40] VITALS: BMI 36.7
--- NOTE | 2024-03-17 14:44 | P.PN_ITS ---
Subjective *Date: 03/17/24 *Time: 14:50 Interval history: Patient interviewed with daughter and present. Family and patient state accidental fall happened prior to hospitalization, which caused left humeral fracture. Patient in sling at time evaluation by Dr. Gallegos. Nonoperative man agement planned by orthopedic surgery, with short-term rehab arrangements in progress. Denies chest pain/shortness of breath overnight. He is complaining about pain and discomfort issues. Case management consultation scheduled for today. Medical Exam Vital signs and Labs for Last 24 Hours: Vital Signs Temp Pulse Resp BP Pulse Ox O2 Del Method O2 Flow Rate 03/17/24 13:00 Nasal Cannula 3 03/17/24 11:00 Nasal Cannula 3 03/17/24 09:00 Nasal Cannula 3 03/17/24 08:00 Nasal Cannula 3 03/17/24 07:56 Nasal Cannula 3 03/17/24 07:49 97.6 F 77 18 108/60 L 91 L Nasal Cannula 4 03/17/24 04:00 98.1 F 72 16 100/58 L 94 L Nasal Cannula 4 03/16/24 20:29 89 L Room Air 03/16/24 20:28 Nasal Cannula 4 03/16/24 20:00 98.3 F 84 18 121/64 93 L Nasal Cannula 4 03/16/24 19:37 Nasal Cannula 4 03/16/24 18:35 Room Air 03/16/24 17:00 Nasal Cannula 3.5 03/16/24 16:00 98.7 F 81 18 120/67 94 L Nasal Cannula 4 03/16/24 14:53 Nasal Cannula 3.5 Intake and Output 03/16/24 03/17/24 03/17/24 23:59 07:59 15:59 Intake Total 510 / 2598 480 / 480 Output Total 650 / 4850 1150 / 1150 Balance -140 / -2252 -670 / -670 Intake: Intake, Oral Amount 510 / 1710 480 / 480 Intake, Oral Supplement Amount 0 / 0 Output: Output, Urine Amount 650 / 4850 1150 / 1150 Other: Number of Voids 0 1 Number of Unmeasured Voids 0 Weight 119.839 kg 119 kg Patient Weight 03/17/24 23:59 Weight 119 kg Laboratory Results - last 24 hr 03/16/24 17:10: POC Glucose 211 H 03/16/24 18:00: Urine Color Yellow, Urine Appearance Clear, Urine pH 6.0, Ur Specific [place] 1.020, Urine Protein Trace, Urine Glucose (UA) 3+, Urine Ketones Negative, Urine Blood 3+, Urine Nitrate Negative, Urine Bilirubin Negative, Urine Urobilinogen 1.0, Ur Leukocyte Esterase 2+ A, Urine RBC 3-5, Urine WBC 20-50, Amorphous Sediment Trace, Urine Bacteria 1+ 03/16/24 20:11: POC Glucose 209 H 03/17/24 06:00: POC Glucose 155 H 03/17/24 10:59: POC Glucose 197 H I & O for Labs for Last 24 Hours: Intake & Output 03/14/24 03/15/24 03/16/24 03/17/24 23:59 23:59 23:59 23:59 Intake Total 500 / 500 2598 / 2598 480 / 480 Output Total 0 / 0 4350 / 4850 1150 / 1150 Balance 500 / 500 -1752 / -2252 -670 / -670 Weight 118.841 kg 120.519 kg 119 kg Microbiology Reports for the Last 24 Hours: Microbiology 03/16/24 18:00 Urine,Clean Catch Urine Culture - Preliminary Gram Negative Rods Head: Present normocephalic ENT: Present normal exam Neck: Present normal inspection Respiratory: Present diminished air movement Cardiac: Present Reg Rate and Rhythm and Regular Rate GI: Present soft and normal bowel sounds (male): Present deferred Comment:: Left arm in black sling at time of evaluation by Dr. Gallegos. Skin: Present intact and warm Assessment and Plan *Assessment and plan (1) COPD (chronic obstructive pulmonary disease): Status: Acute Qualifiers: COPD type: unspecified COPD Qualified Code(s): J44.9 - Chronic obstructive pulmonary disease, unspecified Category: Medical Code(s): J44.9 - Chronic obstructive pulmonary disease, unspecified (2) Fall: Status: Acute Qualifiers: Encounter type: initial encounter Qualified Code(s): W19.XXXA - Unspecified fall, initial encounter Category: Medical Code(s): W19.XXXA - Unspecified fall, initial encounter (3) Closed fracture of neck of left humerus: Status: Acute Qualifiers: Encounter type: initial encounter Qualified Code(s): S42.212A - Unspecified displaced fracture of surgical neck of left humerus, initial encounter for closed fracture Category: Medical Code(s): S42.212A - Unspecified displaced fracture of surgical neck of left humerus, initial encounter for closed fracture (4) Venous stasis ulcers of both lower extremities: Status: Chronic Category: Medical Code(s): I83.019 - Varicose veins of right lower extremity with ulcer of unspecified site; I83.029 - Varicose veins of left lower extremity with ulcer of unspecified site; L97.919 - Non-pressure chronic ulcer of unspecified part of right lower leg with unspecified severity; L97.929 - Non-pressure chronic ulcer of unspecified part of left lower leg with unspecified severity (5) Uncontrolled diabetes mellitus type 2 without complications: Status: Chronic Category: Medical Plan 68-year-old male with multiple chronic medical conditions including HIV disease on antiviral therapy with immunocompromise state, poorly controlled type 2 diabetes, previous T9 fracture, multiple falls, uses walker to ambulate, COPD on home O2 at 2L. He presents to the ER with EMS and family after a fall. on arrival patient c/o pain to left shoulder pain. X-rays consistent with impacted head humeral fracture. Orthopedic consulted. Problems addressed as follows: Closed fracture of neck of the left humerus secondary to mechanical fall ?Appreciate orthopedic surgery consult and assistance with management. Patient seen in emergency room by Dr. Lloyd. Left arm in sling at all times except during range of motion exercises. PT/OT. Fall precautions. As needed pain meds. Family working with case management to finalize short-term rehabilitation arrangements. Ambulates with walker at baseline. Pain management consultation scheduled for today. Uncontrolled diabetes with peripheral neuropathy Routine blood sugar monitoring Hemoglobin A1c Basal insulin therapy Sliding scale insulin therapy Gabapentin therapy SGLT2 inhibitor therapy Carbohydrate controlled diet COPD not in exacerbation ?Currently with no signs of exacerbation on home O2 requirement of 2 L. Will continue home COPD medications. Watch patient closely for signs of COPD exacerbation during hospitalization. Home oxygen requirement 2 L via nasal cannula Chronic venous stasis dermatitis lower extremities Chronic lower extremity wounds Currently followed by home health care Intolerant to compression stockings/Unna boot therapy Loop diuretic therapy Wound culture with Staph aureus Augmentin twice daily Trending labs and inflammatory markers HIV disease Immunocompromise status Resume home antiviral medication BMI 37 Nutrition education Calorie appropriate diet Outpatient evaluation for sleep study VTE prophylaxis: Lovenox CODE STATUS: Full code POA: Kimberley- Disposition: ? Patient will likely be discharged to short-term rehab within the next 48 hours once arrangements finalized. Family working with case management to finalize disposition arrangements.
[2024-03-17 16:00] VITALS: BP 116/66; PULSE 67; RESP 18; TEMP 37; O2SAT 93
[2024-03-17 16:55] LABS: POC Glucose,Bedside 301 (70-110)
[2024-03-17 20:00] VITALS: BP 106/59; PULSE 83; RESP 18; TEMP 36.8; O2SAT 95
[2024-03-17 20:44] LABS: POC Glucose,Bedside 227 (70-110)
[2024-03-17] MEDS: PT OWN MED *TAMSULOSIN 0.4 MG CAP 1 EACH PO (20:45)
[2024-03-17 21:30] VITALS: O2SAT 93
[2024-03-18] MEDS: OXYCODONE 5MG IMMEDIATE RELEASE TABLET 10 MG PO (02:07)
[2024-03-18 04:00] VITALS: BP 110/61; PULSE 73; RESP 18; TEMP 37; O2SAT 93; BMI 37.3
--- NOTE | 2024-03-18 04:28 | PC.NURSE ---
Pt has slept on and off throughout shift. He has complained of pain to his left shoulder and arm and was medicated, see MAR. Noted pt with some confusion throughout shift. FSBS at 227 at 2100, insulin coverage required.
[2024-03-18] MEDS: ACETAMINOPHEN 500MG TAB 1000 MG PO (04:50)
[2024-03-18 06:21] LABS: Basophils % 0.3 % (0.1-2.0); Eosinophils # 0.3 K/mm3 (0.0-0.4); Eosinophils % 2.8 % (0.1-12.0); Hematocrit 38.2 % (42.0-52.0); Hemoglobin 11.9 g/dL (14.1-18.0); Lymphocytes # 1.1 K/mm3 (0.7-4.5); Lymphocytes % 11.7 % (10-50); Mean Corpuscular HGB Conc 31.1 g/dL (31.8-35.4); Mean Corpuscular Volume 89.9 fl (80-94); Mean Platelet Volume 7.8 fl (7.4-10.4); Monocytes # 0.6 K/mm3 (0.1-1.0); Monocytes % 6.3 % (1.7-9.3); Neutrophils # 7.4 K/mm3 (1.8-7.8); Neutrophils % 78.9 % (37.0-80.0); Platelet Count 193 K/mm3 (142-424); Red Blood Count 4.26 M/mm3 (4.60-6.20); Red Cell Distribution Width 15.8 % (11.5-17.5); White Blood Count 9.4 K/mm3 (4.8-10.8)
[2024-03-18 06:46] LABS: Alanine Aminotransferase 9 U/L (12-78); Albumin/Globulin Ratio 0.8 (1.1-1.8); Alkaline Phosphatase 203 U/L (38-126); Anion Gap 4.7 mEq/L (5-15); Aspartate Amino Transferase 19 U/L (17-59); Bilirubin,Total 0.6 mg/dl (0.2-1.3); Blood Urea Nitrogen 28 mg/dl (9-20); Calcium 8.3 mg/dl (8.4-10.2); Carbon Dioxide 37 mmol/L (22.0-30.0); Chloride 97 mmol/L (98-107); Creatinine Clearance Estimated 92 mL/min (50-200); Estimated Glomerular Filt Rate 55 ml/min (>60); GFR (African American) 66 ML/MIN (>60); Globulin 3.6 g/dL (1.3-3.2); Glucose 184 mg/dl (74-100); Potassium 3.7 mmoL/L (3.5-5.1); Sodium 135 mmol/L (136-145); Total Protein,Serum 6.6 g/dl (6.3-8.2)
[2024-03-18] MEDS: humaLOG 100 UNITS/ML 10ML VIAL (SSI) SQ ×2 (06:50→11:45)
[2024-03-18 06:52] LABS: POC Glucose,Bedside 209 (70-110)
[2024-03-18 08:00] VITALS: BP 137/86; PULSE 78; RESP 20; TEMP 36.8; O2SAT 96
[2024-03-18] MEDS: AMOXICILLIN/CLAVULANATE POTASSIUM 875/125MG TABLET 1 EACH PO (08:12)
[2024-03-18] MEDS: METHOCARBAMOL 500MG TABLET 1000 MG PO ×2 (08:13→12:17)
[2024-03-18] MEDS: GABAPENTIN 300MG CAPSULE 300 MG PO ×2 (08:13→12:17)
[2024-03-18] MEDS: PT OWN MED *ASPIRIN 81 MG EC TAB 1 EACH PO (08:14)
[2024-03-18] MEDS: BIKTARVY 1 EACH PO (08:14)
[2024-03-18] MEDS: ASCORBIC ACID 500 MG 1 EACH PO (08:14)
[2024-03-18] MEDS: CHOLECALCIFEROL 25 MCG 1 EACH PO (08:15)
[2024-03-18] MEDS: BUMETANIDE 2 MG 1 EACH PO (08:15)
[2024-03-18] MEDS: EMPAGLIFLOZIN 25 MG 0.5 EACH PO (08:16)
[2024-03-18] MEDS: FERROUS SULFATE 324 MG 1 EACH PO (08:16)
[2024-03-18] MEDS: FINASTERIDE 5 MG 1 EACH PO (08:17)
[2024-03-18] MEDS: VENLAFAXINE 150 MG 1 EACH PO (08:17)
[2024-03-18] MEDS: PANTOPRAZOLE 40 MG 1 EACH PO (08:18)
[2024-03-18] MEDS: METOPROLOL TART 1 EACH PO (08:18)
[2024-03-18] MEDS: ENOXAPARIN 40MG/0.4ML SYRINGE 40 MG SQ (08:18)
--- NOTE | 2024-03-18 10:06 | PC.NURSE ---
case management @ bedside speaking with pt.
[2024-03-18] MEDS: POLYETHYLENE GLYCOL 3350 17 GM PACKET PO (11:39)
[2024-03-18] MEDS: OXYCODONE 5MG IMMEDIATE RELEASE TABLET 5 MG PO (11:41)
[2024-03-18 11:55] LABS: POC Glucose,Bedside 286 (70-110)
--- NOTE | 2024-03-18 13:22 | P.DS_ITS ---
General Admission date:: 03/15/24 Discharge date: 03/18/24 HPI HPI HPI: This is a 68-year-old female with multiple chronic medical conditions including poorly controlled type 2 diabetes, previous spine fracture, meniscus injury, uses walker to ambulate, COPD presents to the ER with EMS and family after fall. Patient stated he stood up out of a chair and turned, losing his balance and falling backwards landing primarily on the left arm/shoulder. He did not had LOC. Patient is complaining of pain in the left humerus and left shoulder. He denies hitting his head or losing consciousness, no on AOC. Patient denies new pain in his other extremities, back, chest, or abdomen, difficulty breathing or chest pain. Admitted for further management. Hospital Course Hospital Course Hospital Course: 68-year-old male with multiple chronic medical conditions including HIV disease on antiviral therapy with immunocompromise state, poorly controlled type 2 diabetes, previous T9 fracture, multiple falls, uses walker to ambulate, COPD on home O2 at 2L. He presents to the ER with EMS and family after a fall. on ar rival patient c/o pain to left shoulder pain. X-rays consistent with impacted head humeral fracture. Orthopedic consulted. Fracture is nonoperative. Given patient's stability and inability to use walker, will need placement for rehab. Has graciously been accepted by [facility]. Stable to discharge for further management. Problems addressed as follows: Closed fracture of neck of the left humerus secondary to mechanical fall ?Appreciate orthopedic surgery consult and assistance with management. Patient seen in emergency room by Dr. Peraza. Left arm in sling at all times except during range of motion exercises. PT/OT. Fall precautions. As needed pain meds. Patient accepted by [facility] for short-term rehab. Stable to discharge. Continue tramadol and Tylenol. Short course of oxycodone for breakthrough pain. Uncontrolled diabetes with peripheral neuropathy A1c 7.8. Will continue home regimen with SGLT2 inhibitor, insulin twice daily, for her stick ACHS. Recommend carbohydrate controlled diet. COPD w/ exacerbation ? Wears 2 to 3 L of oxygen at home. Currently requiring baseline oxygen. Does have slightly productive cough. Will treat with short course of amoxicillin twice daily. Antibiotics sent to [facility] electronically. Chronic venous stasis dermatitis lower extremities Chronic lower extremity wounds Currently followed by home health care. Intolerant to compression stockings/Unna boot therapy. Continue loop diuretic therapy. Augmentin twice daily to help cover for wounds on legs. Wound care consult upon arrival to rehab facility. HIV disease Immunocompromised status. Continue once daily antiviral therapy. Prescription sent to [facility]. Total time spent on discharge 32 minutes in counseling, documentation, chart review, and direct care with patient. Exam Data for Last 24 hours Vital signs and Labs for Last 24 Hours: Temp Pulse Resp BP Pulse Ox O2 Del Method O2 Flow Rate 98.2 F 78 20 137/86 96 Nasal Cannula 3 03/18/24 08:00 03/18/24 08:00 03/18/24 08:00 03/18/24 08:00 03/18/24 08:00 03/18/24 11:00 03/18/24 08:00 FiO2 28 03/15/24 18:45 Laboratory Results - last 24 hr 03/17/24 16:47: POC Glucose 301 H* 03/17/24 20:35: POC Glucose 227 H 03/18/24 05:55: WBC 9.4 D, RBC 4.26 L, Hgb 11.9 L, Hct 38.2 L, MCV 89.9, MCH 28.0, MCHC 31.1 L, RDW 15.8, Plt Count 193, MPV 7.8, Neut % (Auto) 78.9, Lymph % (Auto) 11.7, Atlantic % (Auto) 6.3, Eos % (Auto) 2.8, Baso % (Auto) 0.3, Neut # (A uto) 7.4, Lymph # (Auto) 1.1, Atlantic # (Auto) 0.6, Eos # (Auto) 0.3, Baso # (Auto) 0.0, Sodium 135 L, Potassium 3.7, Chloride 97 L, Carbon Dioxide 37 H, Anion Gap 4.7 L, BUN 28 H D, Creatinine 1.30 H, Estimated Creat Clear 92, Estimated GFR 55 L, Est GFR ( Amer) 66, Glucose 184 H, Calcium 8.3 L, Total Bilirubin 0.6, AST 19, ALT 9 L D, Alkaline Phosphatase 203 H, Total Protein 6.6, Albumin 3.0 L, Globulin 3.6 H, Albumin/Globulin Ratio 0.8 L 03/18/24 06:46: POC Glucose 209 H 03/18/24 11:44: POC Glucose 286 H I & O for Last 24 hours: Intake & Output 03/15/24 03/16/24 03/17/24 03/18/24 23:59 23:59 23:59 23:59 Intake Total 500 / 500 2598 / 2598 1260 / 1610 1310 / 1310 Output Total 0 / 0 4350 / 4850 2950 / 2950 1800 / 1800 Balance 500 / 500 -1752 / -2252 -1690 / -1340 -490 / -490 Weight 118.841 kg 120.519 kg 119 kg 120.973 kg Microbiology Reports for the Last 24 Hours: Microbiology 03/16/24 18:00 Urine,Clean Catch Urine Culture - Final Klebsiella pneumoniae Constitutional Constitutional: no acute distress, morbidly obese, chronically ill appearing and cooperative *Routine HEENT Exam Head: Present normocephalic Eye: Present EOMI and PERRL ENT: Present mucous membranes moist *Routine Neck Exam Neck: Present supple; Absent lymphadenopathy *Routine Respiratory Exam Respiratory: Present prolonged expiratory phase, rhonchi, normal respiratory effort and symmetric chest movement; Absent wheezes or crackles *Routine Cardiovascular Exam Cardiovascular: Present RRR *Routine Abdominal Exam Abdominal: Present soft; Absent tenderness *Routine Rectal Exam Patient deferred: visual exam *Routine Exam Patient deferred: penile exam *Routine Extremities Exam Extremities: Absent cyanosis Comments: Left upper extremity in sling, lower extremity chronic venous stasis dermatitis with excoriated wounds *Routine Skin Exam Skin: Present warm; Absent rash Comments: Excoriated lower extremity wounds *Routine Neurological Exam Neurological: Present alert, oriented X3 and moving all extremities; Absent sensory deficit or motor deficit Routine Psychiatric Exam Psychiatric: Present cooperative Results Data Completed and Pending Labs on day of discharge: Labs from last 24 hours 03/18/24 03/18/24 03/18/24 11:44 06:46 05:55 WBC 9.4 D RBC 4.26 L Hgb 11.9 L Hct 38.2 L MCV 89.9 MCH 28.0 MCHC 31.1 L RDW 15.8 Plt Count 193 MPV 7.8 Neut % (Auto) 78.9 Lymph % (Auto) 11.7 Atlantic % (Auto) 6.3 Eos % (Auto) 2.8 Baso % (Auto) 0.3 Neut # (Auto) 7.4 Lymph # (Auto) 1.1 Atlantic # (Auto) 0.6 Eos # (Auto) 0.3 Baso # (Auto) 0.0 Sodium 135 L Potassium 3.7 Chloride 97 L Carbon Dioxide 37 H Anion Gap 4.7 L BUN 28 H D Creatinine 1.30 H Estimated Creat Clear 92 Estimated GFR 55 L Est GFR ( Amer) 66 Glucose 184 H POC Glucose 286 H 209 H Calcium 8.3 L Total Bilirubin 0.6 AST 19 ALT 9 L D Alkaline Phosphatase 203 H Total Protein 6.6 Albumin 3.0 L Globulin 3.6 H Albumin/Globulin Ratio 0.8 L 03/17/24 03/17/24 20:35 16:47 WBC RBC Hgb Hct MCV MCH MCHC RDW Plt Count MPV Neut % (Auto) Lymph % (Auto) Atlantic % (Auto) Eos % (Auto) Baso % (Auto) Neut # (Auto) Lymph # (Auto) Atlantic # (Auto) Eos # (Auto) Baso # (Auto) Sodium Potassium Chloride Carbon Dioxide Anion Gap BUN Creatinine Estimated Creat Clear Estimated GFR Est GFR ( Amer) Glucose POC Glucose 227 H 301 H* Calcium Total Bilirubin AST ALT Alkaline Phosphatase Total Protein Albumin Globulin Albumin/Globulin Ratio DS: Diagnosis Discharge Diagnosis (1) COPD (chronic obstructive pulmonary disease): Status: Acute Code(s): J44.9 - Chronic obstructive pulmonary disease, unspecified Qualifiers: COPD type: unspecified COPD Qualified Code(s): J44.9 - Chronic obstructive pulmonary disease, unspecified (2) Fall: Status: Acute Code(s): W19.XXXA - Unspecified fall, initial encounter Qualifiers: Encounter type: initial encounter Qualified Code(s): W19.XXXA - Unspecified fall, initial encounter (3) Closed fracture of neck of left humerus: Status: Acute Code(s): S42.212A - Unspecified displaced fracture of surgical neck of left humerus, initial encounter for closed fracture Qualifiers: Encounter type: initial encounter Qualified Code(s): S42.212A - Unspecified displaced fracture of surgical neck of left humerus, initial encounter for closed fracture (4) Venous stasis ulcers of both lower extremities: Status: Chronic Code(s): I83.019 - Varicose veins of right lower extremity with ulcer of unspecified site; I83.029 - Varicose veins of left lower extremity with ulcer of unspecified site; L97.919 - Non-pressure chronic ulcer of unspecified part of right lower leg with unspecified severity; L97.929 - Non-pressure chronic ulcer of unspecified part of left lower leg with unspecified severity (5) Uncontrolled diabetes mellitus type 2 without complications: Status: Chronic Meds Home Medications and Allergies Home Medications Medication Instructions Recorded Confirmed Type finasteride 5 mg tablet 5 mg PO DAILY 11/13/18 03/15/24 History insulin regular hum U-500 conc 500 65 unit SQ BID Diabetes 11/13/18 03/15/24 History unit/mL subcutaneous soln metoprolol tartrate 100 mg tablet 100 mg PO BID 11/13/18 03/15/24 History aspirin 81 mg tablet,delayed 81 mg PO DAILY 08/02/19 03/15/24 History release gabapentin 300 mg capsule 900 mg PO 0900,1700 08/02/19 03/15/24 History bumetanide 2 mg tablet 2 mg PO DAILY Fluid 01/06/20 03/15/24 History tamsulosin 0.4 mg capsule 0.4 mg PO HS PROSTATE 01/06/20 03/15/24 History methocarbamol 750 mg tablet 750 mg PO Q6HP PRN Muscle Spasm 11/26/20 03/15/24 Hi story pantoprazole 40 mg tablet,delayed 40 mg PO BID 11/26/20 03/15/24 History release cholecalciferol (vitamin D3) 25 25 mcg PO DAILY 12/30/20 03/15/24 History mcg (1,000 unit) capsule ascorbic acid (vitamin C) 500 mg 500 mg PO DAILY 09/16/23 03/15/24 History capsule ferrous sulfate 325 mg (65 mg 325 mg PO DAILY 09/16/23 03/15/24 History iron) tablet (Iron (ferrous sulfate)) venlafaxine 150 mg 150 mg PO DAILY 09/16/23 03/15/24 History capsule,extended release 24 hr (Effexor XR) alogliptin 12.5 mg tablet 12.5 mg PO DAILY 03/15/24 03/15/24 History bumetanide 2 mg tablet 2 mg PO DAILYP@2100 PRN Fluid 03/15/24 03/15/24 History empagliflozin 25 mg tablet 12.5 mg PO DAILY 03/15/24 03/15/24 History acetaminophen 500 mg tablet 1,000 mg (2 x 500 mg) PO Q6HP PRN 03/18/24 Rx Fever Or Mild Pain (1-3) #0 tabs amoxicillin 875 mg-potassium 1 tab PO BID 4 days #8 tabs 03/18/24 Rx clavulanate 125 mg tablet bictegravir 50 mg-emtricitabine 1 each PO DAILY 30 days #30 tabs 03/18/24 Rx 200 mg-tenofovir alafenam 25 mg tablet gabapentin 300 mg capsule 1,200 mg (4 x 300 mg) PO HS 30 03/18/24 Rx days #120 caps oxycodone 5 mg tablet 5 mg PO Q6HP PRN Moderate Pain 03/18/24 Rx (4-6) 3 days #12 tabs polyethylene glycol 3350 17 gram 17 g PO DAILYP PRN Constipation #0 03/18/24 Rx oral powder packet (HealthyLax) ea tramadol 50 mg tablet 50 mg PO Q6HP PRN Severe Pain 03/18/24 Rx (Scale Score 7-10) 30 days #120 tabs New Prescriptions to Start Prescriptions: amoxicillin-pot clavulanate Sintia,Negrito zuwrlfcll-nkwahirc-xmjlngc ala Sintia,Negrito gabapentin Sintia,Negrito oxycodone Sintia,Negrito tramadol Sintia,Negrito Allergies Allergy/AdvReac Type Severity Reaction Status Date / Time SANDRA Inhibitors Allergy Unknown Unknown Verified 04/04/21 15:53 allergy reaction clofibrate Allergy Unknown Unknown Verified 04/04/21 15:53 allergy reaction enalapril Allergy Unknown Unknown Verified 04/04/21 15:53 allergy reaction erythromycin base Allergy Unknown Unknown Verified 04/04/21 15:53 allergy reaction gemfibrozil Allergy Unknown Unknown Verified 04/04/21 15:53 allergy reaction hepatitis A virus vaccine Allergy Unknown Unknown Verified 04/04/21 15:53 allergy reaction hydralazine Allergy Unknown Unknown Verified 04/04/21 15:53 allergy reaction Macrolide Antibiotics Allergy Unknown Unknown Verified 04/04/21 15:53 allergy reaction pravastatin [From Pravachol] Allergy Unknown Unknown Verified 04/04/21 15:53 allergy reaction Lxofsnx-PBT-PbJ Reductase Allergy Unknown Unknown Verified 04/04/21 15:53 Inhibitor allergy [Eufubhz-Cyw-Xtn Reductase reaction Inhibitor] Discharge Plan Disposition Patient Disposition: Xfer SNF Condition: Fair Discharge Order Discharge Orders: Discharge Order (Routine); Ordered 03/18/24 Ordered By: Negrito Patricio Follow up Plan Prescriptions/Medication Reconciliation: New polyethylene glycol 3350 [HealthyLax] 17 gram Powder In Packet 17 g PO DAILYP PRN (Reason: Constipation) Qty: 0 0RF acetaminophen 500 mg Tablet 1,000 mg PO Q6HP PRN (Reason: Fever Or Mild Pain (1-3)) Qty: 0 0RF oxycodone 5 mg Tablet 5 mg PO Q6HP PRN (Reason: Moderate Pain (4-6)) 3 Days Qty: 12 0RF amoxicillin-pot clavulanate 875-125 mg Tablet 1 tab PO BID 4 Days Qty: 8 0RF Continued cholecalciferol (vitamin D3) 25 mcg (1,000 unit) capsule 25 mcg PO DAILY finasteride 5 MG tablet 5 mg PO DAILY metoprolol tartrate 100 MG tablet 100 mg PO BID insulin regular hum U-500 conc 500 UNIT/ML solution 65 unit SQ BID aspirin 81 MG tablet,delayed release (DR/EC) 81 mg PO DAILY gabapentin 300 MG capsule 900 mg PO 0900,1700 bumetanide 2 MG tablet 2 mg PO DAILY tamsulosin 0.4 MG capsule 0.4 mg PO HS pantoprazole 40 MG tablet,delayed release (DR/EC) 40 mg PO BID methocarbamol 750 MG tablet 750 mg PO Q6HP PRN (Reason: Muscle Spasm) venlafaxine [Effexor XR] 150 mg Capsule,Extended Release 24hr 150 mg PO DAILY ferrous sulfate [Iron (ferrous sulfate)] 325 mg (65 mg iron) Tablet 325 mg PO DAILY ascorbic acid (vitamin C) 500 mg Capsule 500 mg PO DAILY Rx Instructions: TAKE WITH IRON SUPPLEMENT empagliflozin 25 mg Tablet 12.5 mg PO DAILY alogliptin 12.5 mg Tablet 12.5 mg PO DAILY bumetanide 2 mg Tablet 2 mg PO DAILYP@2100 PRN (Reason: Fluid) Patient Comments: GIVE ADDITIONAL EVENING DOSE FOR 3 POUND WEIGHT GAIN IN 24 HOURS OR 5 POUND WEIGHT GAIN IN A WEEK. Rx Instructions: GIVE ADDITIONAL EVENING DOSE FOR 3 POUND WEIGHT GAIN IN 24 HOURS OR 5 POUND WEIGHT GAIN IN A WEEK. gabapentin 300 mg Capsule 1,200 mg PO HS 30 Days Qty: 120 0RF ylwnakdqj-rlznkixc-mahakyi ala 1 EACH tablet 1 each PO DAILY 30 Days Qty: 30 0RF Changed tramadol 50 mg tablet 50 mg PO Q6HP PRN (Reason: Severe Pain (Scale Score 7-10)) 30 Days Qty: 120 0RF Discontinued hjvoy-5i-zer-epa-fish oil 1 EACH capsule 1 each PO DAILY Problem Reconciliation Problems Reviewed?: Yes Patient Discharge Instructions ACTIVITY: Up with assistance DIET: diabetic diet and cardiac Additional Instructions: Fall precautions Patient Instructions: DI for Humeral Fracture Providers Primary Care Provider: Provider,Referral Admit Provider: Travis Lott Attending Provider: Travis Lott
--- NOTE | 2024-03-18 14:30 | PC.NURSE ---
report called to [facility] @ [facility] [place].
--- NOTE | 2024-03-18 14:45 | PC.NURSE ---
I have attempted to call report to [facility] [place] 3 times.
--- NOTE | 2024-03-21 16:26 | P.EN_ITS ---
Urine culture returned with Klebsiella, resistant to ampicillin. Contacted [facility]. Sent Levaquin for 5 days at 750 mg a day. Patient's creatinine clearance appropriate for that dose. Sensitivity profile shows it should cover his pathogen.
== END 2024-03-18 14:20 ==
LOC: ER 04:40 → 2ND 05:41
PROVIDERS: Internal Medicine Adolescent Medicine; Nurse Practitioner Family; Admitting Provider Family Medicine; Emergency Provider Emergency Medicine; Visit Provider Family Medicine
DX: W01.0XXA Fall on same level from slipping, tripping and stumbling without subsequent striking against object, initial encounter (principal); S42.212A Unspecified displaced fracture of surgical neck of left humerus, initial encounter for closed fracture; Y92.019 Unspecified place in single-family (private) house as the place of occurrence of the external cause; I83.018 Varicose veins of right lower extremity with ulcer other part of lower leg; I83.028 Varicose veins of left lower extremity with ulcer other part of lower leg; E11.65 Type 2 diabetes mellitus with hyperglycemia; L97.919 Non-pressure chronic ulcer of unspecified part of right lower leg with unspecified severity; L97.929 Non-pressure chronic ulcer of unspecified part of left lower leg with unspecified severity; B20 Human immunodeficiency virus [HIV] disease; E66.01 Morbid (severe) obesity due to excess calories; Z68.37 Body mass index [BMI] 37.0-37.9, adult; Z79.4 Long term (current) use of insulin; Z99.81 Dependence on supplemental oxygen; J44.1 Chronic obstructive pulmonary disease with (acute) exacerbation; R29.6 Repeated falls; Z91.81 History of falling; Z79.899 Other long term (current) drug therapy
CPT/HCPCS: 70450; 71045; 72125; 73000; 73030; 73060; 80053; 81001; 82962; 83036; 84484; 85025; 87086; 87088; 87186; 93005; 94640; 97110; 97162; 97165; 97530; 99285; G0378; J0131; J1650; J1885; J2270; J2405; J3010; J7120

== ENCOUNTER 2024-04-03 08:32 | Outpatient (CLI) | payer MEDICARE, OTHER, SELFPAY ==
--- NOTE | 2024-04-03 08:39 | XR_ITS ---
FINAL REPORT CLINICAL HISTORY: F/U Left Humerus Fx COMPARISON: 03/15/2024 FINDINGS: Left humerus Two views were obtained. There is a displaced, mildly impacted fracture of the surgical neck of the humerus. Bridging callus formation is identified. There are moderate hypertrophic changes of the AC joint. IMPRESSION: Fracture as above. Reviewed, Interpreted and Dictated by Akash Betts MD Transcribed by Roselia Verdin Authenticated and . [facility]
== END 2024-04-03 23:59 | disposition home or self-care (01) ==
LOC: RAD 08:33
PROVIDERS: PCP Internal Medicine; Visit Provider Physician Assistant Surgical
DX: S42.212A Unspecified displaced fracture of surgical neck of left humerus, initial encounter for closed fracture (principal); M79.622 Pain in left upper arm
CPT/HCPCS: 73060

== ENCOUNTER 2024-04-15 12:42 | Outpatient (CLI) | payer MEDICARE, OTHER, SELFPAY ==
--- NOTE | 2024-04-15 12:46 | XR_ITS ---
FINAL REPORT CLINICAL HISTORY: lt humerus fx COMPARISON: 04/03/2024 FINDINGS: Three views of the left humerus were obtained. Again noted is a fracture of the surgical neck of the humerus with medial rotation of the humeral head fracture fragment and proximal displacement of the distal fracture fragment. Alignment has not significantly changed. The joint spaces are well preserved. There is no acute soft tissue abnormality. IMPRESSION: Humeral fracture as above. Reviewed, Interpreted and Dictated by Bc Smallwood III, MD Transcribed by Columba Coulter Authenticated and [facility]
== END 2024-04-15 23:59 | disposition home or self-care (01) ==
LOC: RAD 12:43
PROVIDERS: PCP Internal Medicine; Visit Provider Physician Assistant Surgical
DX: S42.212A Unspecified displaced fracture of surgical neck of left humerus, initial encounter for closed fracture (principal); M79.622 Pain in left upper arm
CPT/HCPCS: 73060

== ENCOUNTER 2024-05-13 12:41 | Outpatient (CLI) | payer MEDICARE, OTHER, SELFPAY ==
--- NOTE | 2024-05-13 12:45 | XR_ITS ---
FINAL REPORT CLINICAL HISTORY: Left humerus fx COMPARISON: 04/15/2024 FINDINGS: Two views of the left humerus were obtained. Again noted is a fracture of the surgical neck of the humerus. There is inferior rotation of the humeral head fracture fragment. Bony alignment is stable. A small amount of callus formation is noted. There are mild degenerative changes. No new abnormality is identified. There is no acute soft tissue abnormality. IMPRESSION: Humerus fracture as above with callus formation. Reviewed, Interpreted and Dictated by Bc Smallwood III, MD Transcribed by Columba Coulter Authenticated and [facility]
== END 2024-05-13 23:59 | disposition home or self-care (01) ==
LOC: RAD 12:43
PROVIDERS: PCP Family Medicine; Visit Provider Physician Assistant Surgical
DX: S42.212A Unspecified displaced fracture of surgical neck of left humerus, initial encounter for closed fracture (principal)
CPT/HCPCS: 73060

== ENCOUNTER 2024-07-01 12:15 | Outpatient (CLI) | payer MEDICARE, OTHER, SELFPAY ==
--- NOTE | 2024-07-01 12:18 | XR_ITS ---
PROCEDURE INFORMATION: Exam: XR Left Humerus Exam date and time: 07/01/2024 12:19 PM Age: 69 years old Clinical indication: Injury or trauma; Fall; Other: Humerus FX followup; Additional info: Left humerus FX TECHNIQUE: Imaging protocol: Radiologic exam of the left humerus. Views: 2 or more views. COMPARISON: CR XR HUMERUS LT 05/13/2024 12:48 PM FINDINGS: Bones/joints: The humeral shaft is impacted into the humeral head resulting in comminuted minimally displaced humeral head fracture. I think there is Displaced humeral neck fracture . This appearance is stable in appearance. The glenohumeral joint aligned Soft tissues: Soft tissue swelling the arm IMPRESSION: The humeral shaft is impacted into the humeral head resulting in comminuted minimally displaced humeral head fracture. I think there is Displaced humeral neck fracture . This appearance is stable in appearance.
== END 2024-07-01 23:59 | disposition home or self-care (01) ==
LOC: RAD 12:16
PROVIDERS: PCP Internal Medicine; Visit Provider Physician Assistant Surgical
DX: S42.212A Unspecified displaced fracture of surgical neck of left humerus, initial encounter for closed fracture (principal)
CPT/HCPCS: 73060

== ENCOUNTER 2024-07-26 10:25 | Observation (INO) | payer MEDICARE, OTHER, SELFPAY ==
[2024-07-26] VITALS (11 sets, daily range): BP systolic 106–132; BP diastolic 59–75; PULSE 67–92; RESP 17–20; TEMP 36.4–37.1; O2SAT 89–97; BMI 33.2; BMI 33.7
--- NOTE | 2024-07-26 09:34 | CT_ITS ---
PROCEDURE INFORMATION: Exam: CT Head Without Contrast Exam date and time: 07/26/2024 10:44 AM Age: 69 years old Clinical indication: Injury or trauma; Fall; Blunt trauma (contusions or hematomas); Additional info: Fall backward, no loc TECHNIQUE: Imaging protocol: Computed tomography of the head without contrast. Radiation optimization: All CT scans at this facility use at least one of these dose optimization techniques: automated exposure control; mA and/or kV adjustment per patient size (includes targeted exams where dose is matched to clinical indication); or iterative reconstruction. COMPARISON: CT HEAD/BRAIN WO CON 03/15/2024 3:16 AM FINDINGS: Brain: The brain demonstrates diffuse volume loss. There is white matter hypodensity most consistent with chronic small vessel ischemic change. Cerebral ventricles: The ventricles and CSF spaces are proportionately enlarged. Paranasal sinuses: Visualized sinuses are unremarkable. No fluid levels. Mastoid air cells: There is partial opacification of the mastoid air cells bilaterally. Orbital cavities: There are postop changes from a left lens replacement. There is material in the external auditory canals bilaterally, which presumably represents cerumen. Bones: No acute fracture. Soft tissues: Unremarkable. IMPRESSION: 1. Atrophy and the sequela of prior small vessel ischemia. 2. No sequela of acute intracranial trauma.
--- NOTE | 2024-07-26 09:34 | CT_ITS ---
PROCEDURE INFORMATION: Exam: CT Thoracic Spine Without Contrast Exam date and time: 07/26/2024 10:47 AM Age: 69 years old Clinical indication: Injury or trauma; Fall; Blunt trauma (contusions or hematomas); Additional info: Fall backward x 2 days ago, no loc. Upper t spine pain TECHNIQUE: Imaging protocol: Computed tomography of the thoracic spine without contrast. Radiation optimization: All CT scans at this facility use at least one of these dose optimization techniques: automated exposure control; mA and/or kV adjustment per patient size (includes targeted exams where dose is matched to clinical indication); or iterative reconstruction. COMPARISON: CT THORACIC SPINE WO CON 09/16/2023 7:04 PM FINDINGS: Bones/joints: Pedicle screws with intervening rods extending from T5-T11. No acute fracture within the thoracic spine. Ankylosis of the thoracic spine again noted. Accentuation of thoracic kyphosis. Fractures of the posterior left ribs 4 through 7, with fracture at the 4th rib displaced. Soft tissues: Unremarkable. Lungs: Mild bibasilar atelectasis. Pleural spaces: Small pleural effusions bilaterally, left larger than right. IMPRESSION: 1. Fractures of the posterior left ribs 4 through 7, with fracture at the 4th rib displaced. 2. Small pleural effusions bilaterally, left larger than right.
--- NOTE | 2024-07-26 09:34 | CT_ITS ---
PROCEDURE INFORMATION: Exam: CT Abdomen And Pelvis Without Contrast Exam date and time: 07/26/2024 11:06 AM Age: 69 years old Clinical indication: Injury or trauma; Fall; Blunt; Generalized; Additional info: Fall, L sided rib and chest wall pain TECHNIQUE: Imaging protocol: Computed tomography of the abdomen and pelvis without contrast. Radiation optimization: All CT scans at this facility use at least one of these dose optimization techniques: automated exposure control; mA and/or kV adjustment per patient size (includes targeted exams where dose is matched to clinical indication); or iterative reconstruction. COMPARISON: CT BONY PELVIS 09/16/2023 7:09 PM FINDINGS: Lungs: Bibasilar atelectasis. Pleural spaces: Small pleural effusions bilaterally, left larger than right. Liver: Normal. No mass. Gallbladder and biliary ducts: Gallbladder distended with layering stones and sludge. Pancreas: Normal. No ductal dilation. Spleen: Normal. No splenomegaly. Adrenal glands: Normal. No mass. Kidneys and ureters: Normal. No hydronephrosis. Stomach and bowel: Unremarkable. No obstruction. No mucosal thickening. Appendix: No evidence of appendicitis. Intraperitoneal space: Unremarkable. No free air. No significant fluid collection. Vasculature: Unremarkable. No abdominal aortic aneurysm. Lymph nodes: Unremarkable. No enlarged lymph nodes. Urinary bladder: Unremarkable as visualized. Reproductive: Unremarkable as visualized. Bones/joints: Remote fractures left hemipelvis. See CT chest same day for evaluation of thoracic spine and left rib fractures. Soft tissues: Subcutaneous edema within the anterior abdominal wall. IMPRESSION: 1. Small pleural effusions bilaterally, left larger than right. 2. Gallbladder distended with layering stones and sludge.
--- NOTE | 2024-07-26 09:34 | CT_ITS ---
PROCEDURE INFORMATION: Exam: CT Cervical Spine Without Contrast Exam date and time: 07/26/2024 11:00 AM Age: 69 years old Clinical indication: Injury or trauma; Fall; Blunt trauma; Additional info: Fall backward, no loc TECHNIQUE: Imaging protocol: Computed tomography of the cervical spine without contrast. Radiation optimization: All CT scans at this facility use at least one of these dose optimization techniques: automated exposure control; mA and/or kV adjustment per patient size (includes targeted exams where dose is matched to clinical indication); or iterative reconstruction. COMPARISON: CT CERVICAL SPINE WO CON 03/15/2024 3:35 AM FINDINGS: Bones: Straightening of the normal cervical lordosis may be related to patient position or due to muscle spasm. There is anterior ankylosis from C2 through C7 which can be seen with DISH. There also facet joint degenerative changes with ankylosis of the right C2-C3 and left C2-C4 facet joints. There is no acute cervical spine fracture. Lungs: Lung apices are normal. Soft tissues: There is no prevertebral soft tissue swelling. IMPRESSION: 1. There is no acute cervical spine fracture. 2. Degenerative changes throughout with possible DISH.
--- NOTE | 2024-07-26 09:34 | CT_ITS ---
PROCEDURE INFORMATION: Exam: CT Chest Without Contrast; Diagnostic Exam date and time: 07/26/2024 11:03 AM Age: 69 years old Clinical indication: Injury or trauma; Fall; Blunt trauma (contusions or hematomas); Additional info: Fall x 2 days ago, L sided rib and chest wall pain TECHNIQUE: Imaging protocol: Diagnostic computed tomography of the chest without contrast. Radiation optimization: All CT scans at this facility use at least one of these dose optimization techniques: automated exposure control; mA and/or kV adjustment per patient size (includes targeted exams where dose is matched to clinical indication); or iterative reconstruction. COMPARISON: CT CERVICAL SPINE WO CON 07/26/2024 11:00 AM FINDINGS: Lungs: Mild bibasilar atelectasis. Pleural spaces: Small pleural effusions bilaterally, larger on the left. No pneumothorax. Heart: Moderate coronary artery calcifications. No cardiomegaly. No pericardial effusion. Lymph nodes: Unremarkable. No enlarged lymph nodes. Vasculature: Unremarkable. No aortic aneurysm. Bones/joints: Fractures posterior left ribs 4 through 7. Fracture within the 4th rib mildly displaced. Pedicle screws and fixation multiple levels in the thoracic spine. Soft tissues: Unremarkable. IMPRESSION: 1. Fractures posterior left ribs 4 through 7. Fracture within the 4th rib mildly displaced. 2. Small pleural effusions bilaterally, larger on the left. 3. Mild bibasilar atelectasis.
--- NOTE | 2024-07-26 09:34 | CT_ITS ---
PROCEDURE INFORMATION: Exam: CT Lumbar Spine Without Contrast Exam date and time: 07/26/2024 10:56 AM Age: 69 years old Clinical indication: Injury or trauma; Fall; Blunt trauma (contusions or hematomas); Additional info: Fall backward, no loc. Lower L spine pain TECHNIQUE: Imaging protocol: Computed tomography of the lumbar spine without contrast. Radiation optimization: All CT scans at this facility use at least one of these dose optimization techniques: automated exposure control; mA and/or kV adjustment per patient size (includes targeted exams where dose is matched to clinical indication); or iterative reconstruction. COMPARISON: CT LUMBAR SPINE WO CON 09/16/2023 7:07 PM FINDINGS: Bones/joints: No acute fracture. Normal alignment. No significant disc bulge or herniation. No severe spinal canal stenosis. Multilevel facet arthropathy. No significant neural foraminal narrowing. Soft tissues: Unremarkable. IMPRESSION: No acute findings.
[2024-07-26] MEDS: KETOROLAC 30MG/ML VIAL 15 MG IV (09:53)
[2024-07-26] MEDS: MORPHINE 4MG/ML SYRINGE 4 MG IV ×2 (09:53→11:20)
[2024-07-26] MEDS: ONDANSETRON 4MG/2ML VIAL 4 MG IV (09:53)
[2024-07-26] MEDS: LIDOCAINE 5% TRANSDERMAL PATCH 1 EACH TP (09:54)
--- NOTE | 2024-07-26 10:04 | PC.NURSE ---
AB PALAFOX rounded on the pt. call man in reach.
[2024-07-26 10:15] LABS: Basophils # 0.1 K/mm3 (0-0.2); Basophils % 0.6 % (0.1-2.0); Eosinophils # 0.3 K/mm3 (0.0-0.4); Eosinophils % 3.2 % (0.1-12.0); Hematocrit 48.3 % (42.0-52.0); Hemoglobin 15.9 g/dL (14.1-18.0); Lymphocytes % 10.2 % (10-50); Mean Corpuscular HGB Conc 32.9 g/dL (31.8-35.4); Mean Corpuscular Hemoglobin 27.9 pg (27.0-31.2); Mean Corpuscular Volume 84.7 fl (80-94); Mean Platelet Volume 7.3 fl (7.4-10.4); Monocytes # 0.5 K/mm3 (0.1-1.0); Monocytes % 5.2 % (1.7-9.3); Neutrophils # 7.9 K/mm3 (1.8-7.8); Neutrophils % 80.8 % (37.0-80.0); Platelet Count 223 K/mm3 (142-424); Red Blood Count 5.71 M/mm3 (4.60-6.20); Red Cell Distribution Width 15.4 % (11.5-17.5); White Blood Count 9.8 K/mm3 (4.8-10.8)
--- NOTE | 2024-07-26 10:20 | HMH.EDGENADL ---
Discharge Plan Disposition Chief Complaint: PAIN Clinical Impressions Clinical Impression: Multiple closed fractures of ribs of left side, Fall Discharge ED Provider: Rich Carreno General Adult HPI General Chief complaint: PAIN Stated complaint: fall Time Seen by Provider: 07/26/24 10:30 Mode of Arrival: EMS Source of Information: Patient and EMS Limitations: No Limitations Description of Symptoms (Recalled from ER Triage Doc. by RN): EMS reports the pt fell two days ago and they helped him up but he declined going to the hospital. pt states his pain has increasingly worsened. pt c/o L rib and middle back pain that is stabbing in nature and an 8/10. History of Present Illness HPI narrative: Please note that above description of symptoms, in this electronic medical record under categorization of recalled from ER triage doctor by RN are reflective of an initial nursing assessment, however, is not reflective of my full history and physical exam that was personally taken and clarified. Consequentially, this preceding description of symptoms, which may include the patient's categorized chief complaint in the EMR, do not reflect my personal clinical impression, and the ultimate description of history of present illness and patient stated complaints should be deferred to this section of the note. Unless stated otherwise or congruent with this section of the note, additional signs, symptoms, or incongruence should be interpreted as inaccurate with my clinical impression. Related Data Home Medications ?Medication ?Instructions ?Recorded ?Confirmed finasteride 5 mg tablet 5 mg PO DAILY 11/13/18 07/01/24 insulin regular hum U-500 conc 500 65 unit SQ BID Diabetes 11/13/18 07/01/24 unit/mL subcutaneous soln metoprolol tartrate 100 mg tablet 100 mg PO BID 11/13/18 07/01/24 aspirin 81 mg tablet,delayed 81 mg PO DAILY 08/02/19 07/01/24 release gabapentin 300 mg capsule 900 mg PO 0900,1700 08/02/19 07/01/24 bumetanide 2 mg tablet 2 mg PO DAILY Fluid 01/06/20 07/01/24 tamsulosin 0.4 mg capsule 0.4 mg PO HS PROSTATE 01/06/20 07/01/24 methocarbamol 750 mg tablet 750 mg PO Q6HP PRN Muscle Spasm 11/26/20 07/01/24 pantoprazole 40 mg tablet,delayed 40 mg PO BID 11/26/20 07/01/24 release cholecalciferol (vitamin D3) 25 25 mcg PO DAILY 12/30/20 07/01/24 mcg (1,000 unit) capsule ascorbic acid (vitamin C) 500 mg 500 mg PO DAILY 09/16/23 07/01/24 capsule ferrous sulfate 325 mg (65 mg 325 mg PO DAILY 09/16/23 07/01/24 iron) tablet (Iron (ferrous sulfate)) venlafaxine 150 mg 150 mg PO DAILY 09/16/23 07/01/24 capsule,extended release 24 hr (Effexor XR) alogliptin 12.5 mg tablet 12.5 mg PO DAILY 03/15/24 07/01/24 bumetanide 2 mg tablet 2 mg PO DAILYP@2100 PRN Fluid 03/15/24 07/01/24 empagliflozin 25 mg tablet 12.5 mg PO DAILY 03/15/24 07/01/24 Previous Rx's ?Medication ?Instructions ?Recorded acetaminophen 500 mg tablet 1,000 mg (2 x 500 mg) PO Q6HP PRN 03/18/24 Fever Or Mild Pain (1-3) #0 tabs amoxicillin 875 mg-potassium 1 tab PO BID 4 days #8 tabs 03/18/24 clavulanate 125 mg tablet bictegravir 50 mg-emtricitabine 1 each PO DAILY 30 days #30 tabs 03/18/24 200 mg-tenofovir alafenam 25 mg tablet gabapentin 300 mg capsule 1,200 mg (4 x 300 mg) PO HS 30 03/18/24 days #120 caps polyethylene glycol 3350 17 gram 17 g PO DAILYP PRN Constipation #0 03/18/24 oral powder packet (HealthyLax) ea tramadol 50 mg tablet 50 mg PO Q6HP PRN Severe Pain 03/18/24 (Scale Score 7-10) 30 days #120 tabs levofloxacin 750 mg tablet 750 mg PO DAILY 5 days #5 tabs 03/21/24 hydrocodone 5 mg-acetaminophen 325 1 tab PO Q8H PRN fracture pain #42 04/03/24 mg tablet tabs Allergies Allergy/AdvReac Type Severity Reaction Status Date / Time SANDRA Inhibitors Allergy Unknown Unknown Verified 07/26/24 09:20 allergy reaction clofibrate Allergy Unknown Unknown Verified 07/26/24 09:20 allergy reaction enalapril Allergy Unknown Unknown Verified 07/26/24 09:20 allergy reaction erythromycin base Allergy Unknown Unknown Verified 07/26/24 09:20 allergy reaction gemfibrozil Allergy Unknown Unknown Verified 07/26/24 09:20 allergy reaction hepatitis A virus vaccine Allergy Unknown Unknown Verified 07/26/24 09:20 allergy reaction hydralazine Allergy Unknown Unknown Verified 07/26/24 09:20 allergy reaction Macrolide Antibiotics Allergy Unknown Unknown Verified 07/26/24 09:20 allergy reaction pravastatin (From Pravachol) Allergy Unknown Unknown Verified 07/26/24 09:20 allergy reaction Ddblrzi-UMF-KuI Reductase Allergy Unknown Unknown Verified 07/26/24 09:20 Inhibitor (Izxroiq-Qmq-Rmt allergy Reductase Inhibitor) reaction PFSH PFSH Disclaimer: The information contained in this section may have been updated after the patient was seen, as this information can be updated by other users. Social History Smoking Status: Never smoker second hand exposure: No alcohol intake: never substance use type: denies use current occupational status: retired household members: spouse and family housing: house current occupational exposures/hazards: No caffeine: Yes Other Medical History Have you received the Flu Vaccine for this season: No Have you received the Pneumonia Vaccine: Yes ROS Obtained: Yes All systems reviewed & no additional complaints except as documented Physical Exam General General appearance: alert, in no apparent distress and other (Chronically ill-appearing) Head Head exam: atraumatic and normocephalic Eye Eye exam: Present normal appearance, PERRL and EOMI Neck Neck exam: Present normal inspection, full ROM and trachea midline Chest Chest inspection: Present tenderness Respiratory Respiratory exam: Present normal lung sounds bilaterally; Absent respiratory distress, wheezes, stridor, accessory muscle use or prolonged expiratory phase Cardiovascular Cardiovascular exam: Present regular rate, normal rhythm and other (Pulses equal symmetric in upper and lower extremities) Abdominal Exam Abdominal exam: Present soft; Absent distention, tenderness or pulsatile mass Extremities Exam Extremities exam: Absent edema Neurological Exam Neurological exam: Present alert, oriented X3 and CN II-XII intact; Absent motor sensory deficit Skin Skin exam: Present warm and dry; Absent diaphoresis or erythema Medical Decision Making Medical Records Medical records reviewed: Yes I reviewed the patient's medical records. Screening: Per USPSTF and CDC recommendations, given the prevalence of disease in our region, it is our hospital?s policy to screen for HIV and viral Hepatitis for all patients aged 18 and over and those with ongoing risk factors. Valentin Inquiry Pt receiving controlled substance: No Valentin was queried for this patient: No Vital Signs: 07/26/24 09:14 07/26/24 09:45 07/26/24 11:15 Temperature 98.7 F Temperature Source Oral Pulse Rate 87 67 Pulse Rate [Left] 92 H Respiratory Rate 18 Blood Pressure 132/70 106/59 L Blood Pressure [Right Arm] 124/71 Blood Pressure Mean [Right Arm] 88 Blood Pressure Source [Right Arm] Automatic Cuff Blood Pressure Position [Right Arm] Sitting 02 Sat by Pulse Oximetry 95 95 94 L Oxygen Delivery Method Nasal Cannula Oxygen Flow Rate (LPM) 2 07/26/24 11:30 07/26/24 12:00 Temperature Temperature Source Pulse Rate 86 85 Pulse Rate [Left] Respiratory Rate Blood Pressure 108/66 L 116/75 Blood Pressure [Right Arm] Blood Pressure Mean [Right Arm] Blood Pressure Source [Right Arm] Blood Pressure Position [Right Arm] 02 Sat by Pulse Oximetry 94 L 94 L Oxygen Delivery Method Oxygen Flow Rate (LPM) Lab Data Lab Results 07/26/24 10:00: WBC 9.8, RBC 5.71, Hgb 15.9, Hct 48.3, MCV 84.7, MCH 27.9, MCHC 32.9, RDW 15.4, Plt Count 223, MPV 7.3 L, Neut % (Auto) 80.8 H, Lymph % (Auto) 10.2, [place] % (Auto) 5.2, Eos % (Auto) 3.2, Baso % (Auto) 0.6, Neut # (Auto) 7.9 H, Lymph # (Auto) 1.0, [place] # (Auto) 0.5, Eos # (Auto) 0.3, Baso # (Auto) 0.1, PT 11.7, INR 1.05, APTT 31.3 H, Sodium 138, Potassium 3.5, Chloride 92 L, Carbon Dioxide 35 H, Anion Gap 14.5, BUN 14, Creatinine 1.00, Estimated Creat Clear 108, Estimated GFR 74, Est GFR ( Amer) 89, Glucose 270 H, Calcium 8.6, Total Bilirubin 1.0, AST 22, ALT 13, Alkaline Phosphatase 273 H, Total Protein 7.9, Albumin 3.6, Globulin 4.3 H, Albumin/Globulin Ratio 0.8 L, HIV 1&2 Antibody Rapid Preliminary reactive 07/26/24 10:00 07/26/24 10:00 Orders (Tests/Meds): ED MEDICATIONS Generic Name Dose Route Start Last Admin Trade Name Frenacho PRN Reason Stop Dose Admin Hydrocodone Bitart/Acetaminophen 1 tab 07/26/24 12:17 Hydrocodone/Apap 5/325 Mg Tablet PO 08/25/24 12:16 Q4HP PRN Mild to Moderate Pain (1-6) Insulin Human Lispro 0 unit 07/26/24 16:30 Humalog 100 Units/Ml 10ml Vial (Ssi) SUBCUT 08/25/24 16:29 ACHS DEANA Protocol Discontinued Medications Generic Name Dose Route Start Last Admin Trade Name Freq PRN Reason Stop Dose Admin Ketorolac Tromethamine 15 mg 07/26/24 09:34 07/26/24 09:53 Ketorolac 30mg/Ml Vial IV 07/26/24 09:35 15 mg ONCE ONE Administration Lidocaine 1 each 07/26/24 09:34 07/26/24 09:54 Lidocaine 5% Transdermal Patch TP 07/26/24 09:35 1 each ONCE ONE Administration Morphine Sulfate 4 mg 07/26/24 09:34 07/26/24 09:53 Morphine 4mg/Ml Syringe IV 07/26/24 09:35 4 mg ONCE ONE Administration Morphine Sulfate 4 mg 07/26/24 11:16 07/26/24 11:20 Morphine 4mg/Ml Syringe IV 07/26/24 11:17 4 mg ONCE ONE Administration Ondansetron HCl 4 mg 07/26/24 09:34 07/26/24 09:53 Ondansetron 4mg/2ml Vial IV 07/26/24 09:35 4 mg ONCE ONE Administration ORDERS Category Date Time Status CT abdomen pelvis wo con Stat Cat Scan 07/26/24 09:[address] cervical spine wo con Stat Cat Scan 07/26/24 09:[address] chest wo con Stat Cat Scan 07/26/24 09:[address] head/brain wo con Stat Cat Scan 07/26/24 09:[address] lumbar spine wo con Stat Cat Scan 07/26/24 09:[address] thoracic spine wo con Stat Cat Scan 07/26/24 09:34 Completed CBC w/Auto Diff [Complete Blood Count Auto Diff] Stat Lab 07/26/24 10:00 Completed CMP [Comprehensive Metabolic Panel] Stat Lab 07/26/24 10:00 Completed Complete Blood Count Auto Diff AMLAB Lab 07/27/24 06:00 Ordered Comprehensive Metabolic Panel AMLAB Lab 07/27/24 06:00 Ordered HIV (1&2) Antibody Rapid Stat Lab 07/26/24 10:00 Completed Hemoglobin A1C Stat Lab 07/26/24 10:00 Received Hep C Ab with Reflex to RNA Stat Lab 07/26/24 10:00 Received Magnesium AMLAB Lab 07/27/24 06:00 Ordered NT Pro Brain Natriuretic Pep. Stat Lab 07/26/24 10:00 Received PT INR [Prothrombin Time INR] Stat Lab 07/26/24 10:00 Completed PTT [Activated Partial Thrombo Time] Stat Lab 07/26/24 10:00 Completed Medical Decision Narrative: 69-year-old male chronically ill who is on home oxygen for no underlying medical abnormality, CAD, stenting, hypertension, hyperlipidemia, diabetes, chronic neck and back pain status post T3-T11 spinal fixation presenting with fall. Patient fell 2 days prior to this 07/24. States that he landed straight on his back, hurting in his mid thoracic spine as well as his left-sided chest wall. No shortness of breath, cough, loss of consciousness, nausea, vomiting, but has not been able to move in the last 48 hours because of the significant pain. No new increase in oxygen. Patient states that pain is moderate at rest, severe when trying to transfer or change position. History was obtained via conversation with patient. On arrival, patient hemodynamically stable, alert, oriented x4, appropriate, GCS 15, moving all extremities spontaneously, pupils equal and reactive to light. Full physical exam performed and significant for chronically ill-appearing male who is in no acute distress. Significant tenderness to the left chest wall lateral/posteriorly. No outward signs of abnormality. Lungs are clear bilaterally, cardiac exam within normal limits. He does have scabs and picking lower extremities secondary to diabetic neuropathy, but none of the spots appear to be infected. Pulses are equal and symmetric in upper and lower extremities. Abdomen is soft, nontender, nondistended. Differential includes rib fracture, pulmonary contusion, pneumothorax, hardware failure, critical cervical or thoracic spine injury, among others. Patient placed on continuous cardiac monitoring and continuous pulse ox with initial blood pressure 124/71, heart rate to, saturation 95% on 2 L nasal cannula. Patient was given Toradol, morphine, Zofran for symptomatic management and correction of underlying abnormalities. Workup independently interpreted and significant for nonactionable CBC or chemistry. Kidney function normal.. On independent interpretation of imaging, patient has ribs 4 through 7 fractured on the left. No evidence of pneumothorax or pulmonary contusion. Also has bilateral pleural effusions consistent with likely heart failure. BNP was sent. No acute spinal abnormality or intracranial hemorrhage. See radiology read for full review of final results. On reevaluation, patient resting comfortably in bed, another 4 mg of morphine given after transfer back from CT bed. Hospital medicine contacted and case was discussed at length, to be admitted. 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 Because patient high risk for clinical decompensation, deemed appropriate for inpatient admission. Results were relayed to patient who voiced understanding and patient was agreeable to inpatient admission and management. Patient was admitted to the hospital for further definitive management. 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 Electronic education faculty member of the spoken language may permit errors. Although I have reviewed the note, some errors may still exist. Critical Care Critical Care Time Critical Care Time: No
[2024-07-26 10:24] LABS: Activated Partial Thrombo Time 31.3 seconds (22.8-30.6); INR 1.05 (0.9-1.1); Prothrombin Time 11.7 seconds (10.1-12.5)
[2024-07-26 10:27] LABS: Alanine Aminotransferase 13 U/L (12-78); Albumin Level 3.6 g/dl (3.5-5.0); Albumin/Globulin Ratio 0.8 (1.1-1.8); Alkaline Phosphatase 273 U/L (38-126); Aspartate Amino Transferase 22 U/L (17-59); Blood Urea Nitrogen 14 mg/dl (9-20); Calcium 8.6 mg/dl (8.4-10.2); Chloride 92 mmol/L (98-107); Creatinine Clearance Estimated 108 mL/min (50-200); Estimated Glomerular Filt Rate 74 ml/min (>60); GFR (African American) 89 ML/MIN (>60); Globulin 4.3 g/dL (1.3-3.2); Glucose 270 mg/dl (74-100); Potassium 3.5 mmoL/L (3.5-5.1); Sodium 138 mmol/L (136-145); Total Protein,Serum 7.9 g/dl (6.3-8.2)
[2024-07-26 10:34] LABS: Anion Gap 14.5 mEq/L (5-15); Carbon Dioxide 35 mmol/L (22.0-30.0)
--- NOTE | 2024-07-26 12:21 | P.HP_ITS ---
History of Present Illness *Admission Date: 07/26/24 *Reason for visit:: Fall, left-sided chest pain *History of present illness: Mr. Love is a 69-year-old male with a extensive past medical history including HIV, CAD, chronic oxygen therapy, hypertension, diastolic heart failure, poorly controlled diabetes, recent falls with stent at nursing facility within the past 4 months. He presents today after falling yesterday and having onset of left-sided chest pain. Pain was so bad he was not getting up out of his chair necessitating him to come into the ER for evaluation. On arrival, complaining of left-sided pain. CT obtained showing rib fractures. Patient otherwise appears at baseline level of debility. No nausea or vomiting. BNP slightly elevated concerning for mild exacerbation of his CHF. Noted to have effusions on chest imaging as well. Pain improved with treatment with opiates. Unable to control pain at home today, said it was untouched well this morning when he woke up in severe pain. Denies any nausea, vomiting, loss of consciousness or confusion. No head trauma. On arrival to the floor, patient states he is not sure he is interested in placement. Lives at home by himself but his ex- has been helping him lately. Stable on 2 L oxygen which is his baseline for the past year. Appears more comfortable after receiving pain meds in the ER. [facility] Disclaimer: The information contained in this section may have been updated after the patient was seen, as this information can be updated by other users. Medical History (Updated 07/26/24 @ 18:07 by Negrito Patricio MD) Hypertension Chronic venous stasis dermatitis of both lower extremities HIV (human immunodeficiency virus infection) Diabetes mellitus, type 2 Family History (Updated 07/26/24 @ 14:19 by Pattie Navarrete, RN) Other No significant family history Social History (Updated 07/26/24 @ 14:19 by Pattie Navarrete, RN) Smoking Status: Never smoker second hand exposure: No alcohol intake: never substance use type: denies use current occupational status: retired Travel in the last 8 weeks: None household members: spouse and family housing: house current occupational exposures/hazards: No caffeine: Yes Other Medical History Have you received the Flu Vaccine for this season: No Have you received the Pneumonia Vaccine: Yes Meds Home Medications and Allergies Home Medications ?Medication ?Instructions ?Recorded ?Confirmed ?Type finasteride 5 mg tablet 5 mg PO DAILY 11/13/18 07/26/24 History insulin regular hum U-500 conc 500 65 unit SQ BID Diabetes 11/13/18 07/26/24 History unit/mL subcutaneous soln metoprolol tartrate 100 mg tablet 100 mg PO BID 11/13/18 07/26/24 History aspirin 81 mg tablet,delayed 81 mg PO DAILY 08/02/19 07/26/24 History release gabapentin 300 mg capsule 900 mg PO 0900,1700 08/02/19 07/26/24 History bumetanide 2 mg tablet 2 mg PO DAILY Fluid 01/06/20 07/26/24 History tamsulosin 0.4 mg capsule 0.4 mg PO HS 01/06/20 07/26/24 History methocarbamol 750 mg tablet 750 mg PO Q6HP PRN Muscle Spasm 11/26/20 07/26/24 History pantoprazole 40 mg tablet,delayed 40 mg PO BID 11/26/20 07/26/24 History release cholecalciferol (vitamin D3) 25 25 mcg PO DAILY 12/30/20 07/26/24 History mcg (1,000 unit) capsule ascorbic acid (vitamin C) 500 mg 500 mg PO DAILY 09/16/23 07/26/24 History capsule ferrous sulfate 325 mg (65 mg 325 mg PO DAILY 09/16/23 07/26/24 History iron) tablet (Iron (ferrous sulfate)) venlafaxine 150 mg 150 mg PO DAILY 09/16/23 07/26/24 History capsule,extended release 24 hr (Effexor XR) bumetanide 2 mg tablet 2 mg PO DAILYP@2100 PRN Fluid 03/15/24 07/26/24 History empagliflozin 25 mg tablet 12.5 mg PO DAILY 03/15/24 07/26/24 History acetaminophen 500 mg tablet 1,000 mg (2 x 500 mg) PO Q6HP PRN 03/18/24 07/26/24 Rx Fever Or Mild Pain (1-3) #0 tabs bictegravir 50 mg-emtricitabine 1 each PO DAILY 30 days #30 tabs 03/18/24 07/26/24 Rx 200 mg-tenofovir alafenam 25 mg tablet gabapentin 300 mg capsule 1,200 mg (4 x 300 mg) PO HS 30 03/18/24 07/26/24 Rx days #120 caps polyethylene glycol 3350 17 gram 17 g PO DAILYP PRN Constipation #0 03/18/24 07/26/24 Rx oral powder packet (HealthyLax) ea tramadol 50 mg tablet 50 mg PO Q6HP PRN Severe Pain 03/18/24 07/26/24 Rx (Scale Score 7-10) 30 days #120 tabs tiotropium 2.5 mcg-olodaterol 2.5 2 puff inhalation DAILY 07/26/24 07/26/24 History mcg/actuation mist for inhalation (Stiolto Respimat) New Prescriptions to Start Prescriptions: Allergies Allergy/AdvReac Type Severity Reaction Status Date / Time SANDRA Inhibitors Allergy Unknown Unknown Verified 07/26/24 09:20 allergy reaction clofibrate Allergy Unknown Unknown Verified 07/26/24 09:20 allergy reaction enalapril Allergy Unknown Unknown Verified 07/26/24 09:20 allergy reaction erythromycin base Allergy Unknown Unknown Verified 07/26/24 09:20 allergy reaction gemfibrozil Allergy Unknown Unknown Verified 07/26/24 09:20 allergy reaction hepatitis A virus vaccine Allergy Unknown Unknown Verified 07/26/24 09:20 allergy reaction hydralazine Allergy Unknown Unknown Verified 07/26/24 09:20 allergy reaction Macrolide Antibiotics Allergy Unknown Unknown Verified 07/26/24 09:20 allergy reaction pravastatin (From Pravachol) Allergy Unknown Unknown Verified 07/26/24 09:20 allergy reaction Nzaabpp-OOU-DgH Reductase Allergy Unknown Unknown Verified 07/26/24 09:20 Inhibitor (Jhactqx-Xyz-Jhs allergy Reductase Inhibitor) reaction Exam Data for Last 24 hours Vital signs and Labs for Last 24 Hours: Temp Pulse Resp BP Pulse Ox O2 Del Method O2 Flow Rate 98.7 F 85 18 116/75 94 L Nasal Cannula 2 07/26/24 09:14 07/26/24 12:00 07/26/24 09:14 07/26/24 12:00 07/26/24 12:00 07/26/24 09:14 07/26/24 09:14 Laboratory Results - last 24 hr 07/26/24 10:00: WBC 9.8, RBC 5.71, Hgb 15.9, Hct 48.3, MCV 84.7, MCH 27.9, MCHC 32.9, RDW 15.4, Plt Count 223, MPV 7.3 L, Neut % (Auto) 80.8 H, Lymph % (Auto) 10.2, Runnels % (Auto) 5.2, Eos % (Auto) 3.2, Baso % (Auto) 0.6, Neut # (Auto) 7.9 H, Lymph # (Auto) 1.0, Runnels # (Auto) 0.5, Eos # (Auto) 0.3, Baso # (Auto) 0.1, PT 11.7, INR 1.05, APTT 31.3 H, Sodium 138, Potassium 3.5, Chloride 92 L, Carbon Dioxide 35 H, Anion Gap 14.5, BUN 14, Creatinine 1.00, Estimated Creat Clear 108, Estimated GFR 74, Est GFR ( Amer) 89, Glucose 270 H, Calcium 8.6, Total Bilirubin 1.0, AST 22, ALT 13, Alkaline Phosphatase 273 H, Total Protein 7.9, Albumin 3.6, Globulin 4.3 H, Albumin/Globulin Ratio 0.8 L I & O for Last 24 hours: Intake & Output 07/23/24 07/24/24 07/25/24 07/26/24 23:59 23:59 23:59 23:59 Weight 111.13 kg Constitutional Constitutional: no acute distress, obese, chronically ill appearing, disheveled and cooperative *Routine HEENT Exam Head: Present normocephalic Eye: Present EOMI and PERRL ENT: Present mucous membranes moist *Routine Neck Exam Neck: Present supple; Absent lymphadenopathy Routine Chest/Breast/Axilla Exam Chest wall: Present tenderness (Left-sided chest) *Routine Respiratory Exam Respiratory: Present crackles (Posterior bases); Absent accessory muscle use, rhonchi or wheezes *Routine Cardiovascular Exam Cardiovascular: Present RRR *Routine Abdominal Exam Abdominal: Present soft and normoactive bowel sounds; Absent tenderness *Routine Rectal Exam Rectal:: deferred *Routine Genitalia Exam Genitalia:: deferred *Routine Extremities Exam Extremities: Absent cyanosis, clubbing or edema Comments: Wounds on legs with scabbing, chronic stasis changes *Routine Skin Exam Skin: Present warm; Absent rash *Routine Neurological Exam Neurological: Present alert, oriented X3 and moving all extremities; Absent altered mental status Assessment and Plan *Assessment and plan (1) Fall: Status: Resolved Qualifiers: Encounter type: initial encounter Qualified Code(s): W19.XXXA - Unspecified fall, initial encounter Category: Medical Code(s): W19.XXXA - Unspecified fall, initial encounter (2) Multiple closed fractures of ribs of left side: Status: Acute Qualifiers: Encounter type: initial encounter Qualified Code(s): S22.42XA - Multiple fractures of ribs, left side, initial encounter for closed fracture Category: Medical Code(s): S22.42XA - Multiple fractures of ribs, left side, initial encounter for closed fracture (3) Acute on chronic heart failure with preserved ejection fraction (HFpEF): Status: Acute Category: Medical Code(s): I50.33 - Acute on chronic diastolic (congestive) heart failure (4) Diabetes type 2, uncontrolled: Status: Acute Qualifiers: Glycemic state: with hyperglycemia Qualified Code(s): E11.65 - Type 2 diabetes mellitus with hyperglycemia Category: Medical Code(s): E11.65 - Type 2 diabetes mellitus with hyperglycemia (5) COPD (chronic obstructive pulmonary disease): Status: Acute Qualifiers: COPD type: unspecified COPD Qualified Code(s): J44.9 - Chronic obstructive pulmonary disease, unspecified Category: Medical Code(s): J44.9 - Chronic obstructive pulmonary disease, unspecified (6) Venous stasis ulcers of both lower extremities: Status: Chronic Category: Medical Code(s): I83.019 - Varicose veins of right lower extremity with ulcer of unspecified site; I83.029 - Varicose veins of left lower extremity with ulcer of unspecified site; L97.919 - Non-pressure chronic ulcer of unspecified part of right lower leg with unspecified severity; L97.929 - Non-pressure chronic ulcer of unspecified part of left lower leg with unspecified severity (7) HIV disease: Status: Chronic Category: Medical Code(s): B20 - Human immunodeficiency virus [HIV] disease (8) Obesity: Status: Resolved Qualifiers: Body mass index: BMI 45.0-49.9 Obesity classification: adult class 3 (BMI >= 40) Obesity type: due to excess calories Serious obesity comorbidity presence: with serious comorbidity Qualified Code(s): E66.01 - Morbid (severe) obesity due to excess calories; Z68.42 - Body mass index (BMI) 45.0-49.9, adult Category: Medical Code(s): E66.9 - Obesity, unspecified Plan 69-year-old male with multiple chronic medical conditions including poorly controlled type 2 diabetes, previous spine fracture, meniscus injury, uses walker to ambulate, and COPD PE. Presented to the ER after falling yesterday and not being able to get up out of his chair today. Continue to have significant back and left-sided chest pain. On arrival, evaluation showed concern for multiple left-sided rib fractures. Concern for progressive debility. Discussed case with ER physician, request admission for pain control, monitoring, and therapy evaluation. I agreed to admit for further management. Problems addressed as follows: Sequential left-sided rib fractures Falls, progressive debility -CT of chest obtained showing left-sided rib fractures per my review and ribs 4 through 7. -Having significant pain, continue Toradol 30 mg IV every 6 hours and hydrocodone 5 mg p.o. every 6 hours as needed. Lidocaine patch topically, tolerating well -PT and OT consulted to assist with placement versus home health recommendations -Encourage patient to ambulate, wears oxygen at baseline, noted to have effusions on CT of chest as well Exacerbation of heart failure with preserved ejection fraction -Reviewed patient's chart, echo from 2019 with grade 1 diastolic dysfunction. BNP elevated around 400. Effusions on chest CT per my review. -Diurese with Bumex 2 mg IV once. Continue Bumex 2 mg p.o. daily -On chronic oxygen, 2 L. Does not know why he is on it other than his O2 sats have been low and he was told to start it. Suspect secondary to heart failure. -Continue metoprolol tartrate 100 mg twice daily Uncontrolled insulin-dependent diabetes: -Most recent A1c greater than 9. Repeat A1c pending. -High intensity sliding scale with fingersticks ACHS. -Continue home gabapentin 900 mg 3 times a day for neuropathy, monitor for oversedation and toxicity in conjunction with opiates as above -Continue empagliflozin 12.5 mg daily BPH: Continue finasteride 5 mg daily, tamsulosin 0.4 mg nightly Lower extremity wounds/stasis dermatitis -Numerous wounds, no signs of infection at this time. Nursing to bandage History of HIV -Continue Biktarvy daily per home regimen Obesity complicates all aspects of his care Venlafaxine 150 mg daily for mood Pantoprazole 40 mg daily for GERD Lovenox for DVT prophylaxis. Full code Diabetic diet
--- NOTE | 2024-07-26 12:33 | PC.NURSE ---
ABRN notified HS of the need for an admission bed.
[2024-07-26 12:50] LABS: NT Pro Brain Natriuretic Pep. 414 pg/mL (0-125)
[2024-07-26] MEDS: HYDROCODONE/APAP 5/325 MG TABLET 1 TAB PO ×2 (12:55→19:25)
--- NOTE | 2024-07-26 12:57 | PC.NURSE ---
report called to [facility]
--- NOTE | 2024-07-26 13:13 | PC.NURSE ---
arrived by stretcher from ED
[2024-07-26 13:38] LABS: Hemoglobin A1C 7.3 % (4.0-6.0)
--- NOTE | 2024-07-26 13:38 | PC.WOUNDNOTE ---
Scattered scabs BLE
--- NOTE | 2024-07-26 14:22 | HMH.PHAINT1 ---
Pharmacy Intervention Comments: MEDICATION RECONCILIATION COMPLETE USING RECENT MD OFFICE VISIT NOTE, [facility] REPORT, AND HOSPITAL DISCHARGE NOTE FROM 03/2024.
[2024-07-26] MEDS: BUMETANIDE 1MG/4ML VIAL 1 MG IV (15:23)
[2024-07-26] MEDS: TAMSULOSIN 0.4MG CAPSULE 0.4 MG PO (20:17)
[2024-07-26] MEDS: PANTOPRAZOLE 40MG TABLET 40 MG PO (20:18)
[2024-07-26] MEDS: GABAPENTIN 300MG CAPSULE 900 MG PO (20:18)
[2024-07-26] MEDS: METOPROLOL TARTRATE 50MG TABLET 100 MG PO (20:19)
[2024-07-26] MEDS: KETOROLAC 30MG/ML VIAL 30 MG IV (20:25)
[2024-07-26] MEDS: humaLOG 100 UNITS/ML 10ML VIAL (SSI) SUBCUT (20:28)
--- NOTE | 2024-07-26 20:39 | PC.NURSE ---
For the 21:00 bedside glucose reading (checked by Dexcom around 20:20), the patient refused a glucometer fingerstick, stating that he prefers to use his Dexcom for the reading. Request was fulfilled, showing a Dexcom glucose reading of 224. Patient was given 7 units of Lispro insulin at 20:28 per high-intensity sliding scale and per MAR.
--- NOTE | 2024-07-26 23:45 | PC.NURSE ---
Addendum entered by Priscilla Parra RN 07/26/24 23:47: A new order for methocarbamol 500 mg PO BID PRN (for moderate to severe pain) was given. Original Note: At this time, the patient continues to report having significant wrist/back pain, rating it as a level 8. Vivek OAKES was paged at 23:43 for new interventions.
[2024-07-26] MEDS: METHOCARBAMOL 500MG TABLET 500 MG PO (23:50)
[2024-07-27] MEDS: KETOROLAC 30MG/ML VIAL 30 MG IV (03:45)
--- NOTE | 2024-07-27 03:53 | PC.NURSE ---
At this time, the patient was starting to complain of feeling very nauseous with dry heaving. Vivek OAKES was paged at this time to obtain an order of Zofran for the patient.
[2024-07-27 04:00] VITALS: BP 96/52; PULSE 70; RESP 29; TEMP 36.4; O2SAT 92; BMI 15.2
[2024-07-27] MEDS: ONDANSETRON 4MG/2ML VIAL 4 MG IV (04:35)
--- NOTE | 2024-07-27 04:51 | PC.NURSE ---
Addendum entered by Priscilla Parra RN 07/27/24 06:22: Patient's Dexcom glucose reading at 06:00 this morning was 287. Patient will be given 10 units of Lispro insulin per high-intensity sliding scale per NOV. Original Note: Patient is alert and oriented x4. Patient was observed to be awake for most of the night with occasional resting periods (eyes closed, respirations even and unlabored). Patient's voice was noticed to be hoarse, but his speech is coherent and appropriate. Patient has remained on 1 L of oxygen via nasal cannula this shift; oxygen saturations have remained > 90%. Patient has not had any complaints of shortness of breath. However, patient has had complaints of significant left wrist pain, rib, and back pain throughout the shift. He has been given [place], Toradol, and one dose of methocarbamol (to be taken BID; see prior note) per NOV to treat his pain. He also started to have nausea and dry heaves (around 03:53) of which he was given Zofran per NOV. Patient was slightly distressed at this time (increased respirations). Patient's symptoms were able to start to reside after receiving these treatments. Patient's left wrist pain was additionally treated with ice pack and SANDRA wrap application; his nausea was also additionally treated with a cold rag compress to the forehead. He was also given his scheduled medications per NOV. Upon auscultation, patient's lungs were clear, S1/S2 heart sounds could be heard, and bowel sounds were very active. Patient has been using the urinal at bedside; urine has been measured and emptied appropriately. Patient has bilateral lower extremity (anterior sloan/posterior calf) scabbed ulcers with redness surrounding them; his overall skin color was noticed to be pallor. Hands and feet were slightly cool to the touch. Blood pressures have been soft this shift. Patient requested to use his Dexcom instead of a fingerstick to check his glucose readings this shift (see prior note). Patient refused a bedtime snack this shift; he was given a couple cans of Dr Pepper and fresh ice water to drink. He has a diabetic diet in place with an artificial sweetener allergy per order description (patient reported to me that he cannot have aspartame). At this time, the patient is resting supine in bed. He does not have any further complaints. No acute changes noted thus far. Bed alarm on. Call light within reach.
--- NOTE | 2024-07-27 06:21 | PC.NURSE ---
CRE screen (rectum swab) specimen was sent to lab at this time.
[2024-07-27] MEDS: humaLOG 100 UNITS/ML 10ML VIAL (SSI) SUBCUT ×2 (06:29→12:15)
[2024-07-27 06:45] LABS: Basophils # 0.1 K/mm3 (0-0.2); Basophils % 0.6 % (0.1-2.0); Eosinophils # 0.4 K/mm3 (0.0-0.4); Eosinophils % 3.8 % (0.1-12.0); Hemoglobin 14.7 g/dL (14.1-18.0); Lymphocytes # 1.3 K/mm3 (0.7-4.5); Lymphocytes % 13.3 % (10-50); Mean Corpuscular Hemoglobin 27.8 pg (27.0-31.2); Mean Corpuscular Volume 86.8 fl (80-94); Mean Platelet Volume 7.3 fl (7.4-10.4); Monocytes # 0.6 K/mm3 (0.1-1.0); Monocytes % 6.2 % (1.7-9.3); Neutrophils # 7.7 K/mm3 (1.8-7.8); Platelet Count 216 K/mm3 (142-424); Red Cell Distribution Width 15.4 % (11.5-17.5); White Blood Count 10.1 K/mm3 (4.8-10.8)
[2024-07-27 06:51] LABS: Alanine Aminotransferase 9 U/L (12-78); Albumin Level 3.2 g/dl (3.5-5.0); Alkaline Phosphatase 264 U/L (38-126); Aspartate Amino Transferase 20 U/L (17-59); Bilirubin,Total 0.8 mg/dl (0.2-1.3); Calcium 7.9 mg/dl (8.4-10.2); Glucose 271 mg/dl (74-100); Magnesium 2.3 mg/dl (1.6-2.3); Potassium 4.2 mmoL/L (3.5-5.1); Sodium 137 mmol/L (136-145)
[2024-07-27 06:53] LABS: Albumin/Globulin Ratio 0.9 (1.1-1.8); Blood Urea Nitrogen 21 mg/dl (9-20); Creatinine Clearance Estimated 35 mL/min (50-200); Estimated Glomerular Filt Rate 50 ml/min (>60); GFR (African American) 61 ML/MIN (>60); Globulin 3.6 g/dL (1.3-3.2); Total Protein,Serum 6.8 g/dl (6.3-8.2)
[2024-07-27 07:01] LABS: Carbon Dioxide 36 mmol/L (22.0-30.0)
[2024-07-27 07:06] LABS: Anion Gap 13.2 mEq/L (5-15); Chloride 92 mmol/L (98-107)
--- NOTE | 2024-07-27 07:54 | DIET.NUTRFU ---
RD changed to regular diet, A1c 7.3% and he noted to be allergic to artificial sweeteners
[2024-07-27 08:00] VITALS: BP 93/64; PULSE 74; RESP 16; TEMP 36.6; O2SAT 87
[2024-07-27] MEDS: EMPAGLIFLOZIN 10MG TABLET 12.5 MG PO (09:06)
[2024-07-27] MEDS: ENOXAPARIN 40MG/0.4ML SYRINGE 40 MG SUBCUT (09:06)
[2024-07-27] MEDS: GABAPENTIN 300MG CAPSULE 900 MG PO (09:06)
[2024-07-27] MEDS: METOPROLOL TARTRATE 50MG TABLET 100 MG PO (09:07)
[2024-07-27] MEDS: ASPIRIN EC 81MG TABLET 81 MG PO (09:07)
[2024-07-27] MEDS: BUMETANIDE 1 MG TABLET 2 MG PO (09:07)
[2024-07-27] MEDS: FINASTERIDE 5MG TABLET 5 MG PO (09:07)
[2024-07-27] MEDS: VENLAFAXINE XR 75MG CAPSULE 150 MG PO (09:07)
[2024-07-27] MEDS: PANTOPRAZOLE 40MG TABLET 40 MG PO (09:07)
[2024-07-27 09:34] LABS: HCV Ab Non Reactive (Non Reactive)
--- NOTE | 2024-07-27 10:33 | EXP.DC.SUM ---
General Admission date:: 07/26/24 Discharge date: 07/27/24 HPI HPI HPI: Mr. Love is a 69-year-old male with a extensive past medical history including HIV, CAD, chronic oxygen therapy, hypertension, diastolic heart failure, poorly controlled diabetes, recent falls with stent at nursing facility within the past 4 months. He presents today after falling yesterday and having onset of left-sided chest pain. Pain was so bad he was not getting up out of his chair necessitating him to come into the ER for evaluation. On arrival, complaining of left-sided pain. CT obtained showing rib fractures. Patient otherwise appears at baseline level of debility. No nausea or vomiting. BNP slightly elevated concerning for mild exacerbation of his CHF. Noted to have effusions on chest imaging as well. Pain improved with treatment with opiates. Unable to control pain at home today, said it was untouched well this morning when he woke up in severe pain. Denies any nausea, vomiting, loss of consciousness or confusion. No head trauma. On arrival to the floor, patient states he is not sure he is interested in placement. Lives at home by himself but his ex- has been helping him lately. Stable on 2 L oxygen which is his baseline for the past year. Appears more comfortable after receiving pain meds in the ER. Hospital Course Hospital Course Hospital Course: 69-year-old male with multiple chronic medical conditions including poorly controlled type 2 diabetes, previous spine fracture, meniscus injury, uses walker to ambulate, and COPD PE. Presented to the ER after falling yesterday and not being able to get up out of his chair today. Continue to have significant back and left-sided chest pain. On arrival, evaluation showed concern for multiple left-sided rib fractures. Concern for progressive debility. Discussed case with ER physician, request admission for pain control, monitoring, and therapy evaluation. I agreed to admit for further management. Monitored overnight. Patient did well with improved pain control. Ambulating to bathroom. Uses walker at home. Discussed placement. Patient has no desire to go to placement or rehab. Comfortable going home with home health. Stable oxygen requirement of 2 L. Discharged home with family. Problems addressed as follows: Sequential left-sided rib fractures Falls, progressive debility -CT of chest obtained showing left-sided rib fractures per my review and ribs 4 through 7. Pain controlled overnight with hydrocodone p.o. and Toradol IV. Lidocaine patch helping as well. Discussed therapy evaluation and placement, patient has no desire to go to rehab. [facility] As he is ambulating with assistance, will discharge home with home health and family. Strong concern for readmission risk and recurrent falls. Patient encouraged to ambulate and get up from bed to decrease risk for pneumonia. Exacerbation of heart failure with preserved ejection fraction -Reviewed patient's chart, echo from 2019 with grade 1 diastolic dysfunction. BNP elevated around 400. Effusions on chest CT per my review. Initiated on diuresis with Bumex IV. Tolerating well. Increase Bumex 2 mg p.o. to twice daily per home regimen. Supplemental oxygen at 2 L. Suspect oxygen requirement related to his heart failure. 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 No chest pain, asymptomatic. Continue metoprolol 100 mg twice daily per home regimen. Uncontrolled insulin-dependent diabetes: -A1c better controlled at 7.3 this visit. Given his comorbidities and age, ADA goal for A1c of less than 8. Continue home regimen with insulin at discharge. Dexcom utilized during admission to monitor glucose. Continue home gabapentin 900 mg 3 times a day for neuropathy, counseled on caution for oversedation with opiate pain meds and gabapentin. Family states understanding. Continue empagliflozin 12.5 mg daily BPH: Continue finasteride 5 mg daily, tamsulosin 0.4 mg nightly Lower extremity wounds/stasis dermatitis: Numerous wounds, no signs of infection at this time. History of HIV: Continue Biktarvy daily per home regimen Venlafaxine 150 mg daily for mood Pantoprazole 40 mg daily for GERD Total time spent on discharge 32 minutes in counseling, documentation, chart review, and direct care with patient. Exam Data for Last 24 hours Vital signs and Labs for Last 24 Hours: Temp Pulse Resp BP Pulse Ox O2 Del Method O2 Flow Rate 97.8 F 74 16 93/64 L 87 L Nasal Cannula 2 07/27/24 08:00 07/27/24 08:00 07/27/24 08:00 07/27/24 08:00 07/27/24 08:00 07/27/24 08:00 07/27/24 08:00 Laboratory Results - last 24 hr 07/26/24 10:00: Carbon Dioxide 35 H, Anion Gap 14.5, Hemoglobin A1c 7.3 H, NT-Pro-B Natriuret Pep 414 H, Hepatitis C Antibody Non reactive, HIV 1&2 Antibody Rapid Preliminary reactive 07/27/24 06:03: WBC 10.1, RBC 5.30, Hgb 14.7, Hct 46.0, MCV 86.8, MCH 27.8, MCHC 32.0, RDW 15.4, Plt Count 216, MPV 7.3 L, Neut % (Auto) 76.0, Lymph % (Auto) 13.3, Davis % (Auto) 6.2, Eos % (Auto) 3.8, Baso % (Auto) 0.6, Neut # (Auto) 7.7, Lymph # (Auto) 1.3, Davis # (Auto) 0.6, Eos # (Auto) 0.4, Baso # (Auto) 0.1, Sodium 137, Potassium 4.2, Chloride 92 L, Carbon Dioxide 36 H, Anion Gap 13.2, BUN 21 H D, Creatinine 1.40 H D, Estimated Creat Clear 35, Estimated GFR 50 L, Est GFR ( Amer) 61 D, Glucose 271 H, Calcium 7.9 L, Magnesium 2.3, Total Bilirubin 0.8, AST 20, ALT 9 L D, Alkaline Phosphatase 264 H, Total Protein 6.8, Albumin 3.2 L D, Globulin 3.6 H, Albumin/Globulin Ratio 0.9 L I & O for Last 24 hours: Intake & Output 07/24/24 07/25/24 07/26/24 07/27/24 23:59 23:59 23:59 23:59 Intake Total 750 / 1000 550 / 550 Output Total 250 / 250 300 / 300 Balance 500 / 750 250 / 250 Weight 112.661 kg 50.938 kg Constitutional Constitutional: no acute distress, morbidly obese, chronically ill appearing and cooperative *Routine HEENT Exam Head: Present normocephalic Eye: Present EOMI and PERRL ENT: Present mucous membranes moist *Routine Neck Exam Neck: Present supple; Absent lymphadenopathy Routine Chest/Breast/Axilla Exam Chest wall: Present tenderness (Improved left chest wall) *Routine Respiratory Exam Respiratory: Present prolonged expiratory phase, rhonchi, normal respiratory effort and symmetric chest movement; Absent wheezes or crackles *Routine Cardiovascular Exam Cardiovascular: Present RRR *Routine Abdominal Exam Abdominal: Present soft; Absent tenderness *Routine Rectal Exam Patient deferred: visual exam *Routine Exam Patient deferred: penile exam *Routine Extremities Exam Extremities: Absent cyanosis Comments: Significant stasis changes with scabbing of bilateral lower extremities, chronic. *Routine Skin Exam Skin: Present warm; Absent rash Comments: Excoriated lower extremity wounds *Routine Neurological Exam Neurological: Present alert, oriented X3 and moving all extremities; Absent sensory deficit or motor deficit Routine Psychiatric Exam Psychiatric: Present cooperative Results Data Completed and Pending Labs on day of discharge: Labs from last 24 hours 07/27/24 07/26/24 06:03 10:00 WBC 10.1 RBC 5.30 Hgb 14.7 Hct 46.0 MCV 86.8 MCH 27.8 MCHC 32.0 RDW 15.4 Plt Count 216 MPV 7.3 L Neut % (Auto) 76.0 Lymph % (Auto) 13.3 Davis % (Auto) 6.2 Eos % (Auto) 3.8 Baso % (Auto) 0.6 Neut # (Auto) 7.7 Lymph # (Auto) 1.3 Davis # (Auto) 0.6 Eos # (Auto) 0.4 Baso # (Auto) 0.1 Sodium 137 Potassium 4.2 Chloride 92 L Carbon Dioxide 36 H 35 H Anion Gap 13.2 14.5 BUN 21 H D Creatinine 1.40 H D Estimated Creat Clear 35 Estimated GFR 50 L Est GFR ( Amer) 61 D Glucose 271 H Hemoglobin A1c 7.3 H Calcium 7.9 L Magnesium 2.3 Total Bilirubin 0.8 AST 20 ALT 9 L D Alkaline Phosphatase 264 H NT-Pro-B Natriuret Pep 414 H Total Protein 6.8 Albumin 3.2 L D Globulin 3.6 H Albumin/Globulin Ratio 0.9 L Hepatitis C Antibody Non reactive HIV 1&2 Antibody Rapid Preliminary reactive DS: Diagnosis Discharge Diagnosis (1) Fall: Status: Resolved Code(s): W19.XXXA - Unspecified fall, initial encounter Qualifiers: Encounter type: initial encounter Qualified Code(s): W19.XXXA - Unspecified fall, initial encounter (2) Multiple closed fractures of ribs of left side: Status: Acute Code(s): S22.42XA - Multiple fractures of ribs, left side, initial encounter for closed fracture Qualifiers: Encounter type: initial encounter Qualified Code(s): S22.42XA - Multiple fractures of ribs, left side, initial encounter for closed fracture (3) Acute on chronic heart failure with preserved ejection fraction (HFpEF): Status: Acute Code(s): I50.33 - Acute on chronic diastolic (congestive) heart failure (4) Diabetes type 2, uncontrolled: Status: Acute Code(s): E11.65 - Type 2 diabetes mellitus with hyperglycemia Qualifiers: Glycemic state: with hyperglycemia Qualified Code(s): E11.65 - Type 2 diabetes mellitus with hyperglycemia (5) COPD (chronic obstructive pulmonary disease): Status: Acute Code(s): J44.9 - Chronic obstructive pulmonary disease, unspecified Qualifiers: COPD type: unspecified COPD Qualified Code(s): J44.9 - Chronic obstructive pulmonary disease, unspecified (6) Venous stasis ulcers of both lower extremities: Status: Chronic Code(s): I83.019 - Varicose veins of right lower extremity with ulcer of unspecified site; I83.029 - Varicose veins of left lower extremity with ulcer of unspecified site; L97.919 - Non-pressure chronic ulcer of unspecified part of right lower leg with unspecified severity; L97.929 - Non-pressure chronic ulcer of unspecified part of left lower leg with unspecified severity (7) HIV disease: Status: Chronic Code(s): B20 - Human immunodeficiency virus [HIV] disease (8) Obesity: Status: Resolved Code(s): E66.9 - Obesity, unspecified Qualifiers: Body mass index: BMI 45.0-49.9 Obesity classification: adult class 3 (BMI >= 40) Obesity type: due to excess calories Serious obesity comorbidity presence: with serious comorbidity Qualified Code(s): E66.01 - Morbid (severe) obesity due to excess calories; Z68.42 - Body mass index (BMI) 45.0-49.9, adult Meds Home Medications and Allergies Home Medications ?Medication ?Instructions ?Recorded ?Confirmed ?Type finasteride 5 mg tablet 5 mg PO DAILY 11/13/18 07/26/24 History insulin regular hum U-500 conc 500 65 unit SQ BID Diabetes 11/13/18 07/26/24 History unit/mL subcutaneous soln metoprolol tartrate 100 mg tablet 100 mg PO BID 11/13/18 07/26/24 History aspirin 81 mg tablet,delayed 81 mg PO DAILY 08/02/19 07/26/24 History release gabapentin 300 mg capsule 900 mg PO 0900,1700 08/02/19 07/26/24 History tamsulosin 0.4 mg capsule 0.4 mg PO HS 01/06/20 07/26/24 History methocarbamol 750 mg tablet 750 mg PO Q6HP PRN Muscle Spasm 11/26/20 07/26/24 History pantoprazole 40 mg tablet,delayed 40 mg PO BID 11/26/20 07/26/24 History release cholecalciferol (vitamin D3) 25 25 mcg PO DAILY 12/30/20 07/26/24 History mcg (1,000 unit) capsule ascorbic acid (vitamin C) 500 mg 500 mg PO DAILY 09/16/23 07/26/24 History capsule ferrous sulfate 325 mg (65 mg 325 mg PO DAILY 09/16/23 07/26/24 History iron) tablet (Iron (ferrous sulfate)) venlafaxine 150 mg 150 mg PO DAILY 09/16/23 07/26/24 History capsule,extended release 24 hr (Effexor XR) empagliflozin 25 mg tablet 12.5 mg PO DAILY 03/15/24 07/26/24 History acetaminophen 500 mg tablet 1,000 mg (2 x 500 mg) PO Q6HP PRN 03/18/24 07/26/24 Rx Fever Or Mild Pain (1-3) #0 tabs bictegravir 50 mg-emtricitabine 1 each PO DAILY 30 days #30 tabs 03/18/24 07/26/24 Rx 200 mg-tenofovir alafenam 25 mg tablet gabapentin 300 mg capsule 1,200 mg (4 x 300 mg) PO HS 30 03/18/24 07/26/24 Rx days #120 caps polyethylene glycol 3350 17 gram 17 g PO DAILYP PRN Constipation #0 03/18/24 07/26/24 Rx oral powder packet (HealthyLax) ea tramadol 50 mg tablet 50 mg PO Q6HP PRN Severe Pain 03/18/24 07/26/24 Rx (Scale Score 7-10) 30 days #120 tabs tiotropium 2.5 mcg-olodaterol 2.5 2 puff inhalation DAILY 07/26/24 07/26/24 History mcg/actuation mist for inhalation (Stiolto Respimat) bumetanide 2 mg tablet 2 mg PO BIDL Fluid 30 days #0 tabs 07/27/24 07/26/24 Rx hydrocodone 5 mg-acetaminophen 325 1 tab PO Q6HP PRN Severe Pain 07/27/24 Rx mg tablet (7-10) 3 days #11 tabs New Prescriptions to Start Prescriptions: hydrocodone-acetaminophen Negrito Patricio Allergies Allergy/AdvReac Type Severity Reaction Status Date / Time SANDRA Inhibitors Allergy Unknown Unknown Verified 07/26/24 09:20 allergy reaction clofibrate Allergy Unknown Unknown Verified 07/26/24 09:20 allergy reaction enalapril Allergy Unknown Unknown Verified 07/26/24 09:20 allergy reaction erythromycin base Allergy Unknown Unknown Verified 07/26/24 09:20 allergy reaction gemfibrozil Allergy Unknown Unknown Verified 07/26/24 09:20 allergy reaction hepatitis A virus vaccine Allergy Unknown Unknown Verified 07/26/24 09:20 allergy reaction hydralazine Allergy Unknown Unknown Verified 07/26/24 09:20 allergy reaction Macrolide Antibiotics Allergy Unknown Unknown Verified 07/26/24 09:20 allergy reaction pravastatin (From Pravachol) Allergy Unknown Unknown Verified 07/26/24 09:20 allergy reaction Vmlwkfz-HES-ElR Reductase Allergy Unknown Unknown Verified 07/26/24 09:20 Inhibitor (Jthrvxh-Ilk-Qmt allergy Reductase Inhibitor) reaction Discharge Plan Disposition Patient Disposition: Home Health Service Discharge Order Discharge Orders: Discharge Order (Routine); Ordered 07/27/24 Ordered By: Negrito Patricio Follow up Plan Follow up with: Provider,Referral, MD [Primary Care Provider] - Enter time for follow up (please call pcp for follow up appointment) Prescriptions/Medication Reconciliation: New hydrocodone-acetaminophen 5-325 mg Tablet 1 tab PO Q6HP PRN (Reason: Severe Pain (7-10)) 3 Days Qty: 11 0RF Continued cholecalciferol (vitamin D3) 25 mcg (1,000 unit) capsule 25 mcg PO DAILY finasteride 5 MG tablet 5 mg PO DAILY metoprolol tartrate 100 MG tablet 100 mg PO BID insulin regular hum U-500 conc 500 UNIT/ML solution 65 unit SQ BID aspirin 81 MG tablet,delayed release (DR/EC) 81 mg PO DAILY gabapentin 300 MG capsule 900 mg PO 0900,1700 tamsulosin 0.4 MG capsule 0.4 mg PO HS pantoprazole 40 MG tablet,delayed release (DR/EC) 40 mg PO BID methocarbamol 750 MG tablet 750 mg PO Q6HP PRN (Reason: Muscle Spasm) Stiolto Respimat 2.5-2.5 mcg/actuation Mist 2 puff INHALATION DAILY venlafaxine [Effexor XR] 150 mg Capsule,Extended Release 24hr 150 mg PO DAILY ferrous sulfate [Iron (ferrous sulfate)] 325 mg (65 mg iron) Tablet 325 mg PO DAILY ascorbic acid (vitamin C) 500 mg Capsule 500 mg PO DAILY Rx Instructions: TAKE WITH IRON SUPPLEMENT empagliflozin 25 mg Tablet 12.5 mg PO DAILY polyethylene glycol 3350 [HealthyLax] 17 gram Powder In Packet 17 g PO DAILYP PRN (Reason: Constipation) Qty: 0 0RF acetaminophen 500 mg Tablet 1,000 mg PO Q6HP PRN (Reason: Fever Or Mild Pain (1-3)) Qty: 0 0RF gabapentin 300 mg Capsule 1,200 mg PO HS 30 Days Qty: 120 0RF gnqnmoigx-qnrancsa-bejijoc ala 1 EACH tablet 1 each PO DAILY 30 Days Qty: 30 0RF Changed bumetanide 2 MG tablet 2 mg PO BIDL 30 Days Qty: 0 0RF Held tramadol 50 mg tablet 50 mg PO Q6HP PRN (Reason: Severe Pain (Scale Score 7-10)) 30 Days Qty: 120 0RF Hold Instructions: Do not take while taking hydrocodone Discontinued bumetanide 2 mg Tablet 2 mg PO DAILYP@2100 PRN (Reason: Fluid) Patient Comments: GIVE ADDITIONAL EVENING DOSE FOR 3 POUND WEIGHT GAIN IN 24 HOURS OR 5 POUND WEIGHT GAIN IN A WEEK. Rx Instructions: GIVE ADDITIONAL EVENING DOSE FOR 3 POUND WEIGHT GAIN IN 24 HOURS OR 5 POUND WEIGHT GAIN IN A WEEK. Problem Reconciliation Problems Reviewed?: Yes Patient Discharge Instructions ACTIVITY: Continue current activity and Ambulate as tolerated DIET: continue same diet Patient Instructions: Heart Failure, DI for Rib Fracture Print Language: Latvian Providers Primary Care Provider: Provider,Referral Admit Provider: Negrito Patricio Attending Provider: Negrito Patricio
--- NOTE | 2024-07-28 10:58 | SW/DCPLANNER ---
Addendum entered by Mary Hall 07/29/24 14:22: Updated patient information has also been faxed to [facility] [employer] / [facility]. Original Note: I received an order for home health services (PT/OT/SN for wound care) on this patient over the weekend. [facility] w/ home health services through [facility]. [place] has requested that updated information and new order be faxed to [facility] at [phone].
[2024-07-28 15:16] LABS: HIV 1 Ab Reactive (Non Reactive); HIV 2 Ab Non Reactive (Non Reactive); HIV Screen 4th Generation wRfx Preliminary Reactive (Non Reactive); HIV-1 Ab CHG YES; HIV-2 Ab CHG YES; Interpretation: HIV-1 Positive (.)
--- NOTE | 2024-07-29 10:15 | SW/DCPLANNER ---
Called patient x2 and each time there was no answer and was able to leave message the first time but the 2nd time was not able. Lyndsay JIANG Patient Support Representative
== END 2024-07-27 12:41 | disposition home health service (06) ==
LOC: ER 10:27 → 2ND 12:38
PROVIDERS: Admitting Provider Internal Medicine Adolescent Medicine; Emergency Provider Emergency Medicine; Visit Provider Internal Medicine Adolescent Medicine
DX: S22.42XA Multiple fractures of ribs, left side, initial encounter for closed fracture (principal); I11.0 Hypertensive heart disease with heart failure; I50.33 Acute on chronic diastolic (congestive) heart failure; E11.65 Type 2 diabetes mellitus with hyperglycemia; J44.9 Chronic obstructive pulmonary disease, unspecified; I83.019 Varicose veins of right lower extremity with ulcer of unspecified site; I83.029 Varicose veins of left lower extremity with ulcer of unspecified site; L97.919 Non-pressure chronic ulcer of unspecified part of right lower leg with unspecified severity; L97.929 Non-pressure chronic ulcer of unspecified part of left lower leg with unspecified severity; B20 Human immunodeficiency virus [HIV] disease; E66.01 Morbid (severe) obesity due to excess calories; Z68.42 Body mass index [BMI] 45.0-49.9, adult; Z99.81 Dependence on supplemental oxygen; R29.6 Repeated falls; Z60.2 Problems related to living alone; Z79.899 Other long term (current) drug therapy; W18.30XA Fall on same level, unspecified, initial encounter
CPT/HCPCS: 70450; 71250; 72125; 72128; 72131; 74176; 80053; 83036; 83735; 83880; 85025; 85610; 85730; 86701; 86702; 86703; 86803; 87081; 87389; 99285; G0378; G0432; J1650; J1885; J1939; J2270; J2405

== ENCOUNTER 2024-08-12 12:41 | Outpatient (CLI) | payer MEDICARE, OTHER, SELFPAY ==
--- NOTE | 2024-08-12 12:45 | XR_ITS ---
FINAL REPORT TECHNIQUE: Left humerus, 2 views CLINICAL HISTORY: fx follow up,,shoulder pain COMPARISON: 04/15/2024 FINDINGS: LEFT HUMERUS: A subacute fracture of the humeral head and neck is once again identified. There is no significant change in alignment, with medial rotation of the humeral head fragment and mild callus formation. Moderate acromioclavicular degenerative changes present. IMPRESSION: Subacute fracture of the humeral head and neck as described above, essentially without significant change in alignment since the prior exam. Reviewed, Interpreted and Dictated by Bc Smallwood III, MD Transcribed by Loraine Vasquez Authenticated and [facility]
== END 2024-08-12 23:59 | disposition home or self-care (01) ==
LOC: RAD 12:43
PROVIDERS: PCP Internal Medicine; Visit Provider Physician Assistant Surgical
DX: S42.212A Unspecified displaced fracture of surgical neck of left humerus, initial encounter for closed fracture (principal)
CPT/HCPCS: 73060

== ENCOUNTER 2024-08-19 05:58 | Inpatient (IN) | payer MEDICARE, OTHER, SELFPAY ==
[2024-08-19] VITALS (21 sets, daily range): BP systolic 102–162; BP diastolic 61–133; PULSE 73–126; RESP 14–31; TEMP 36.6–37.9; O2SAT 71–99; BMI 37.6; BMI 33.3
--- NOTE | 2024-08-19 06:08 | XR_ITS ---
PROCEDURE INFORMATION: Exam: XR Chest Exam date and time: 08/19/2024 6:11 AM Age: 69 years old Clinical indication: Shortness of breath; Additional info: SOA, AMS TECHNIQUE: Imaging protocol: Radiologic exam of the chest. Views: 1 view. COMPARISON: 1. CT CHEST WO CON 07/26/2024 11:03 AM 2. CR XR CHEST PORTABLE 03/15/2024 3:39 AM FINDINGS: Lungs: Lung volumes are significantly decreased unchanged likely in part due to body habitus. There are minor atelectatic changes at the left lung base. Pleural spaces: Unremarkable. No pleural effusion. No pneumothorax. Heart/Mediastinum: Heart is enlarged, unchanged. 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 Spinal rods noted in the thoracic spine. No acute bony abnormalities. IMPRESSION: Mild cardiomegaly. Decreased lung volumes with minor atelectatic changes left lung base.
--- NOTE | 2024-08-19 06:08 | ED_ITS ---
Discharge Plan Disposition Patient Disposition: Admitted Clinical Impressions Clinical Impression: HIV disease, Acute exacerbation of CHF (congestive heart failure), Sepsis due to pneumonia, AMS (altered mental status) Respiratory failure Qualifiers: Chronicity: acute on chronic Respiratory failure complication: hypoxia and hypercapnia Qualified Code(s): J96.21 - Acute and chronic respiratory failure with hypoxia COPD (chronic obstructive pulmonary disease) Qualifiers: COPD type: unspecified COPD Qualified Code(s): J44.9 - Chronic obstructive pulmonary disease, unspecified Discharge ED Provider: Syeda Juan General Adult HPI <Jhonathan Ivory MD - Last Filed: 08/19/24 07:00> General Chief complaint: Weakness Stated complaint: AMS Time Seen by Provider: 08/19/24 06:00 History of Present Illness HPI narrative: 69-year-old male with history of COPD on 2 L nasal cannula at baseline, HIV, heart failure, obesity, falls including multiple rib fractures on the left side presents for altered mental status. His daughter who is a nurse believes that patient is likely retaining CO2. He has done this before. Patient is awake and interactive but does seem somewhat altered. He reports feeling weak all over. Denies that he is more short of breath than normal. Reports that his body has been aching. Related Data Home Medications ?Medication ?Instructions ?Recorded ?Confirmed finasteride 5 mg tablet 5 mg PO DAILY 11/13/18 08/12/24 insulin regular hum U-500 conc 500 65 unit SQ BID Diabetes 11/13/18 08/12/24 unit/mL subcutaneous soln metoprolol tartrate 100 mg tablet 100 mg PO BID 11/13/18 08/12/24 aspirin 81 mg tablet,delayed 81 mg PO DAILY 08/02/19 08/12/24 release gabapentin 300 mg capsule 900 mg PO 0900,1700 08/02/19 08/12/24 tamsulosin 0.4 mg capsule 0.4 mg PO HS 01/06/20 08/12/24 methocarbamol 750 mg tablet 750 mg PO Q6HP PRN Muscle Spasm 11/26/20 08/12/24 pantoprazole 40 mg tablet,delayed 40 mg PO BID 11/26/20 08/12/24 release cholecalciferol (vitamin D3) 25 25 mcg PO DAILY 12/30/20 08/12/24 mcg (1,000 unit) capsule ascorbic acid (vitamin C) 500 mg 500 mg PO DAILY 09/16/23 08/12/24 capsule ferrous sulfate 325 mg (65 mg 325 mg PO DAILY 09/16/23 08/12/24 iron) tablet (Iron (ferrous sulfate)) venlafaxine 150 mg 150 mg PO DAILY 09/16/23 08/12/24 capsule,extended release 24 hr (Effexor XR) empagliflozin 25 mg tablet 12.5 mg PO DAILY 03/15/24 08/12/24 tiotropium 2.5 mcg-olodaterol 2.5 2 puff inhalation DAILY 07/26/24 08/12/24 mcg/actuation mist for inhalation (Stiolto Respimat) Previous Rx's ?Medication ?Instructions ?Recorded acetaminophen 500 mg tablet 1,000 mg (2 x 500 mg) PO Q6HP PRN 03/18/24 Fever Or Mild Pain (1-3) #0 tabs bictegravir 50 mg-emtricitabine 1 each PO DAILY 30 days #30 tabs 03/18/24 200 mg-tenofovir alafenam 25 mg tablet gabapentin 300 mg capsule 1,200 mg (4 x 300 mg) PO HS 30 03/18/24 days #120 caps polyethylene glycol 3350 17 gram 17 g PO DAILYP PRN Constipation #0 03/18/24 oral powder packet (HealthyLax) ea tramadol 50 mg tablet 50 mg PO Q6HP PRN Severe Pain 03/18/24 (Scale Score 7-10) 30 days #120 tabs bumetanide 2 mg tablet 2 mg PO BIDL Fluid 30 days #0 tabs 07/27/24 hydrocodone 5 mg-acetaminophen 325 1 tab PO Q6HP PRN Severe Pain 07/27/24 mg tablet (7-10) 3 days #11 tabs Allergies Allergy/AdvReac Type Severity Reaction Status Date / Time SANDRA Inhibitors Allergy Unknown Unknown Verified 08/12/24 13:49 allergy reaction clofibrate Allergy Unknown Unknown Verified 08/12/24 13:49 allergy reaction enalapril Allergy Unknown Unknown Verified 08/12/24 13:49 allergy reaction erythromycin base Allergy Unknown Unknown Verified 08/12/24 13:49 allergy reaction gemfibrozil Allergy Unknown Unknown Verified 08/12/24 13:49 allergy reaction hepatitis A virus vaccine Allergy Unknown Unknown Verified 08/12/24 13:49 allergy reaction hydralazine Allergy Unknown Unknown Verified 08/12/24 13:49 allergy reaction Macrolide Antibiotics Allergy Unknown Unknown Verified 08/12/24 13:49 allergy reaction pravastatin (From Pravachol) Allergy Unknown Unknown Verified 08/12/24 13:49 allergy reaction Spzttyo-NAW-VdQ Reductase Allergy Unknown Unknown Verified 08/12/24 13:49 Inhibitor (Szipetl-Vom-Deg allergy Reductase Inhibitor) reaction PFSH <Jhonathan Ivory MD - Last Filed: 08/19/24 07:00> [facility] Disclaimer: The information contained in this section may have been updated after the patient was seen, as this information can be updated by other users. Medical History (Updated 08/19/24 @ 11:05 by Silvio Hill MD) Pneumonia Pleural effusion, bilateral Acute respiratory failure with hypoxia and hypercarbia Closed fracture of neck of left humerus GI bleed due to NSAIDs Morbid obesity with BMI of 45.0-49.9, adult Hypertension Chronic venous stasis dermatitis of both lower extremities HIV (human immunodeficiency virus infection) Diabetes mellitus, type 2 Family History Other No significant family history Social History Smoking Status: Unknown if ever smoked second hand exposure: No alcohol intake: never substance use type: denies use current occupational status: retired Travel in the last 8 weeks: None household members: spouse and family housing: house current occupational exposures/hazards: No caffeine: Yes Have you lived/traveled outside [place] in past 30 days?: No Contact w/someone who lives/traveled outside US past 30 days?: No Exposure to someone with infectious disease in past 14 days?: No Do you have a fever (greater than 100.4 F or 38 C)?: No Have you tested positive for COVID-19: No Exposed to someone with COVID-19 in past 14 days?: No Do you have a sore throat?: No Do you have a cough?: No Do you have any weakness?: No Do you have any diarrhea?: No Are you experiencing any unusual bleeding?: No Do you have any muscle aches/pain?: No Do you have any abdominal pain?: No Are you experiencing loss of taste or smell?: No Other Medical History Have you received the Flu Vaccine for this season: No Have you received the Pneumonia Vaccine: No <Jhonathan Ivory MD - Last Filed: 08/19/24 07:00> ROS Obtained: Yes All systems reviewed & no additional complaints except as documented Physical Exam <Jhonathan Ivory MD - Last Filed: 08/19/24 07:00> General General appearance: alert and in distress Head Head exam: atraumatic and normocephalic Eye Eye exam: Present normal appearance, PERRL and EOMI ENT ENT exam: Present normal oropharynx and normal external ear exam Neck Neck exam: Present normal inspection and full ROM Chest Chest inspection: Present normal inspection and symmetric chest wall rise; Absent tenderness Respiratory Respiratory exam: Present respiratory distress, wheezes, prolonged expiratory phase and other (Poor air movement with wheezing bilaterally) Cardiovascular Cardiovascular exam: Present regular rate and normal rhythm Abdominal Exam Abdominal exam: Present soft; Absent distention, tenderness or guarding Extremities Exam Extremities exam: Absent normal inspection (Severe bilateral lower extremity venous stasis disease) Back Exam Back exam: Present normal inspection; Absent tenderness Neurological Exam Neurological exam: Present other (Drowsy, slow to answer, somewhat confused) Psychiatric Psychiatric exam: Present other Skin Skin exam: Present warm and other (Severe bilateral lower extremity venous stasis disease) Lymphatic Lymphatic Findings: no adenopathy Medical Decision Making <Jhonathan Ivory MD - Last Filed: 08/19/24 07:00> Medical Records Medical records reviewed: Yes I reviewed the patient's medical records. Screening: Per USPSTF and CDC recommendations, given the prevalence of disease in our region, it is our hospital?s policy to screen for HIV and viral Hepatitis for all patients aged 18 and over and those with ongoing risk factors. Valentin Inquiry Pt receiving controlled substance: No Valentin was queried for this patient: No Vital Signs: 08/19/24 05:59 08/19/24 06:12 08/19/24 06:30 Temperature 100.2 F H Temperature Source Tympanic Pulse Rate 85 86 Pulse Rate [Apical] 73 Respiratory Rate 28 H 17 Blood Pressure 152/133 H 162/99 H Blood Pressure [Right Arm] 152/133 H Blood Pressure Mean [Right Arm] 139 Blood Pressure Source 02 Sat by Pulse Oximetry 71 L 98 98 Oxygen Delivery Method Nasal Cannula Aerosol Mask Aerosol Mask Oxygen Flow Rate (LPM) 2 8 8 08/19/24 07:00 08/19/24 07:30 08/19/24 08:00 Temperature Temperature Source Pulse Rate 91 H 85 90 Pulse Rate [Apical] Respiratory Rate 17 16 18 Blood Pressure 136/78 124/73 134/81 Blood Pressure [Right Arm] Blood Pressure Mean [Right Arm] Blood Pressure Source 02 Sat by Pulse Oximetry 96 97 93 L Oxygen Delivery Method BiPAP BiPAP BiPAP Oxygen Flow Rate (LPM) 08/19/24 08:30 08/19/24 09:00 08/19/24 09:15 Temperature Temperature Source Pulse Rate 96 H Pulse Rate [Apical] Respiratory Rate 23 25 H 30 H Blood Pressure 118/73 129/75 Blood Pressure [Right Arm] Blood Pressure Mean [Right Arm] Blood Pressure Source 02 Sat by Pulse Oximetry 98 Oxygen Delivery Method BiPAP Oxygen Flow Rate (LPM) 08/19/24 09:30 08/19/24 10:00 08/19/24 11:00 Temperature Temperature Source Pulse Rate 96 H 94 H Pulse Rate [Apical] Respiratory Rate 20 22 Blood Pressure 129/75 116/77 Blood Pressure [Right Arm] Blood Pressure Mean [Right Arm] Blood Pressure Source 02 Sat by Pulse Oximetry 98 99 Oxygen Delivery Method BiPAP Nasal Cannula Oxygen Flow Rate (LPM) 3 08/19/24 11:15 Temperature 98.2 F Temperature Source Oral Pulse Rate 80 Pulse Rate [Apical] Respiratory Rate 22 Blood Pressure 142/85 H Blood Pressure [Right Arm] Blood Pressure Mean [Right Arm] Blood Pressure Source Automatic Cuff 02 Sat by Pulse Oximetry Oxygen Delivery Method Nasal Cannula Oxygen Flow Rate (LPM) 4 Lab Data Lab results reviewed: Yes I reviewed the patient's lab results. Lab Results 08/19/24 06:14: WBC 11.9 H, RBC 5.56, Hgb 15.0, Hct 49.5, MCV 89.0, MCH 27.0, M CHC 30.3 L, RDW 15.4, Plt Count 235, MPV 7.2 L, Neut % (Auto) 83.0 H, Lymph % (Auto) 9.7 L, [place] % (Auto) 6.1, Eos % (Auto) 0.4, Baso % (Auto) 0.8, Neut # (Auto) 9.8 H, Lymph # (Auto) 1.2, [place] # (Auto) 0.7, Eos # (Auto) 0.1, Baso # (Auto) 0.1, Sodium 131 L, Potassium 4.5, Chloride 91 L, Carbon Dioxide 37 H, Anion Gap 7.5, BUN 24 H, Creatinine 1.20, Estimated Creat Clear 99, Estimated GFR 60, Est GFR ( Amer) 72, Glucose 314 H, Calcium 8.4, Total Bilirubin 1.0, AST 32, ALT 23, Alkaline Phosphatase 312 H, NT-Pro-B Natriuret Pep 5140 H, Total Protein 7.1, Albumin 3.4 L, Globulin 3.7 H, Albumin/Globulin Ratio 0.9 L, TSH 2.22, Acetone Level None detected 08/19/24 06:20: VBG pH 7.26 L, VBG pCO2 70.9 H, VBG pO2 50.5 H, VBG HCO3 31.3 H, VBG Total CO2 33.5 H, VBG O2 Saturation 83.2 H, VBG Base Excess 4.3 H, VBG Lactic Acid 2.9 H 08/19/24 08:02: VBG pH 7.36, VBG pCO2 63.7 H, VBG pO2 145.4 H, VBG HCO3 34.9 H, VBG Total CO2 36.8 H, VBG O2 Saturation 99.2 H, VBG Base Excess 9.3 H, VBG Lactic Acid 2.2 H 08/19/24 06:14 08/19/24 06:14 Orders (Tests/Meds): ED MEDICATIONS Generic Name Dose Route Start Last Admin Trade Name Freq PRN Reason Stop Dose Admin Albuterol/Ipratropium 3 ml 08/19/24 12:00 Ipratropium/Albuterol 3 Ml Neb IH 09/18/24 11:59 Q6RT [facility] Bumetanide 2 mg 08/19/24 14:00 Bumetanide 1mg/4ml Vial IV 08/19/24 14:01 ONCE ONE Piperacillin Sod/Tazobactam 100 mls @ 200 mls/hr 08/19/24 15:00 Sod 4.5 gm/ Sodium Chloride IV 08/29/24 14:59 Q8H DE[facility] Vancomycin HCl 2,250 mg/ 250 mls @ 125 mls/hr 08/19/24 23:00 Sodium Chloride IV 08/29/24 22:59 Q18H [facility] Insulin Human Lispro 0 unit 08/19/24 11:00 08/19/24 12:00 Humalog 100 Units/Ml 10ml Vial (Ssi) SUBCUT 09/18/24 10:59 10 unit ACHS DE[facility] Administration Protocol Sodium Chloride 3 ml 08/19/24 10:11 Sodium Chloride 3% 15ml [facility] 09/18/24 10:10 ONCE PRN INDUCE SPUTUM COLLECTION Discontinued Medications Generic Name Dose Route Start Last Admin Trade Name Freq PRN Reason Stop Dose Admin Albuterol/Ipratropium 9 ml 08/19/24 06:10 08/19/24 06:15 Ipratropium/Albuterol 3 Ml [facility] 08/19/24 06:11 9 ml ONCE ONE Administration Bumetanide 2 mg 08/19/24 08:03 08/19/24 08:54 Bumetanide 1mg/4ml Vial IV 08/19/24 08:04 2 mg ONCE ONE Administration Magnesium Sulfate 2 gm in 50 mls @ 50 mls/hr 08/19/24 06:08 08/19/24 06:16 Magnesium Sulfate 2gm/50ml Premix IV 08/19/24 07:07 50 mls/hr ONCE ONE Administration Piperacillin Sod/Tazobactam 100 mls @ 200 mls/hr 08/19/24 06:46 08/19/24 06:52 Sod 4.5 gm/ Sodium Chloride IV 08/19/24 07:15 200 mls/hr ONCE ONE Administration Vancomycin HCl 2,000 mg/ 250 mls @ 125 mls/hr 08/19/24 07:00 08/19/24 08:53 Sodium Chloride IV 08/19/24 08:59 125 mls/hr ONCE ONE Administration Methylprednisolone Sodium Succinate 125 mg 08/19/24 06:11 08/19/24 06:16 Methylprednisolone Sod Succ 125mg Vial IM 08/19/24 06:12 125 mg ONCE ONE Administration Miscellaneous 1 each 08/19/24 07:00 08/19/24 09:17 Vancomycin Consult Request NOTAPPLIC 09/18/24 06:59 Not Given CONSULT PHARMACY [facility] ORDERS Category Date Time Status Pulmonology Consult [Consult to Pulmonology] [CONS] Cons 08/19/24 08:27 Active Routine CXR --portable [XR chest portable] Stat Exams 08/19/24 06:08 Completed Acetone, Serum (Rapid) Stat Lab 08/19/24 06:14 Completed BNP [NT Pro Brain Natriuretic Pep.] Stat Lab 08/19/24 06:14 Completed CBC w/Auto Diff [Complete Blood Count Auto Diff] Stat Lab 08/19/24 06:14 Completed CMP [Comprehensive Metabolic Panel] Stat Lab 08/19/24 06:14 Completed Complete Blood Count Auto Diff AMLAB Lab 08/20/24 06:00 Ordered Comprehensive Metabolic Panel AMLAB Lab 08/20/24 06:00 Ordered Lactate Venous Stat Lab 08/19/24 06:20 Ordered Magnesium AMLAB Lab 08/20/24 06:00 Ordered T+B-Lymphocyte Differential Stat Lab 08/19/24 07:00 Received TSH [Thyroid Stimulating Hormone] Stat Lab 08/19/24 06:14 Completed UA [Urinalysis and Microscopic] Stat Lab 08/19/24 06:09 Ordered Blood Culture Stat Micro 08/19/24 06:15 Received VBG [Venous Blood Gas] Stat RT 08/19/24 06:20 Completed VBG [Venous Blood Gas] Stat RT 08/19/24 08:02 Completed ECG Data Tracing #1: I reviewed this ECG and interpreted as documented below: Sinus rhythm, rate of 87, no significant ST or T wave changes, QRS widened ECG initial impression date: 08/19/24 ECG initial impression time: 06:28 Medical Decision Narrative: 69-year-old male with history of COPD, heart failure, on 2 L nasal cannula baseline, recent fall with multiple rib fractures, diabetes, HIV presents for altered mental status at home, daughter believes he is retaining CO2. History was obtained via interactive discussion with patient, family, chart review. On arrival, patient is borderline febrile with a temperature of 100.2, normotensive, severely hypoxic with oxygen sats in the 70s on home 2 L nasal cannula, moving all extremities spontaneously. Full physical exam performed and significant for diminished air movement bilaterally with wheezing bilaterally, severe bilateral lower extremity venous stasis disease, patient generally weak, mildly confused. Fingerstick normal. Patient was placed on nonrebreather and came up to the 90s after a few minutes. Differential includes but is not limited to pneumonia, COPD exacerbation, UTI, bacteremia, sepsis. Patient was given DuoNeb x 3, IV Solu-Medrol, IV magnesium for symptomatic management and correction of underlying abnormalities. Workup initiated including CBC CMP CD4 count VBG UA blood cultures urine urine culture chest x- ray TSH EKG. VBG results show combined respiratory metabolic acidosis with pH 7.26, pCO2 71, lactate 2.8. Patient was placed on BiPAP. Patient was not given any fluids given concern for volume overload. Patient was placed on broad- spectrum antibiotics for coverage including Vanco and Zosyn. On re-evaluation, patient looks improved on the BiPAP. Laboratory workup independently interpreted by me and significant for white count 11.9, sodium 131, creatinine at baseline. Other labs remain pending. Imaging independently interpreted by me and significant for low lung volumes bilaterally. See radiology read for full review of final results. <Syeda N Drake, DO - Last Filed: 08/19/24 12:30> Vital Signs: 08/19/24 05:59 08/19/24 06:12 08/19/24 06:30 Temperature 100.2 F H Temperature Source Tympanic Pulse Rate 85 86 Pulse Rate [Apical] 73 Respiratory Rate 28 H 17 17 Blood Pressure 152/133 H 162/99 H Blood Pressure [Right Arm] 152/133 H Blood Pressure Mean [Right Arm] 139 Blood Pressure Source 02 Sat by Pulse Oximetry 71 L 98 98 Oxygen Delivery Method Nasal Cannula Aerosol Mask Aerosol Mask Oxygen Flow Rate (LPM) 2 8 8 08/19/24 07:00 08/19/24 07:30 08/19/24 08:00 Temperature Temperature Source Pulse Rate 91 H 85 90 Pulse Rate [Apical] Respiratory Rate 17 16 18 Blood Pressure 136/78 124/73 134/81 Blood Pressure [Right Arm] Blood Pressure Mean [Right Arm] Blood Pressure Source 02 Sat by Pulse Oximetry 96 97 93 L Oxygen Delivery Method BiPAP BiPAP BiPAP Oxygen Flow Rate (LPM) 08/19/24 08:30 08/19/24 09:00 08/19/24 09:15 Temperature Temperature Source Pulse Rate 96 H Pulse Rate [Apical] Respiratory Rate 23 25 H 30 H Blood Pressure 118/73 129/75 Blood Pressure [Right Arm] Blood Pressure Mean [Right Arm] Blood Pressure Source 02 Sat by Pulse Oximetry 98 Oxygen Delivery Method BiPAP Oxygen Flow Rate (LPM) 08/19/24 09:30 08/19/24 10:00 08/19/24 11:00 Temperature Temperature Source Pulse Rate 96 H 94 H Pulse Rate [Apical] Respiratory Rate 20 22 Blood Pressure 129/75 116/77 Blood Pressure [Right Arm] Blood Pressure Mean [Right Arm] Blood Pressure Source 02 Sat by Pulse Oximetry 98 99 Oxygen Delivery Method BiPAP Nasal Cannula Oxygen Flow Rate (LPM) 3 08/19/24 11:15 Temperature 98.2 F Temperature Source Oral Pulse Rate 80 Pulse Rate [Apical] Respiratory Rate 22 Blood Pressure 142/85 H Blood Pressure [Right Arm] Blood Pressure Mean [Right Arm] Blood Pressure Source Automatic Cuff 02 Sat by Pulse Oximetry Oxygen Delivery Method Nasal Cannula Oxygen Flow Rate (LPM) 4 Lab Data Lab Results 08/19/24 06:14: WBC 11.9 H, RBC 5.56, Hgb 15.0, Hct 49.5, MCV 89.0, MCH 27.0, M CHC 30.3 L, RDW 15.4, Plt Count 235, MPV 7.2 L, Neut % (Auto) 83.0 H, Lymph % (Auto) 9.7 L, [place] % (Auto) 6.1, Eos % (Auto) 0.4, Baso % (Auto) 0.8, Neut # (Auto) 9.8 H, Lymph # (Auto) 1.2, [place] # (Auto) 0.7, Eos # (Auto) 0.1, Baso # (Auto) 0.1, Sodium 131 L, Potassium 4.5, Chloride 91 L, Carbon Dioxide 37 H, Anion Gap 7.5, BUN 24 H, Creatinine 1.20, Estimated Creat Clear 99, Estimated GFR 60, Est GFR ( Amer) 72, Glucose 314 H, Calcium 8.4, Total Bilirubin 1.0, AST 32, ALT 23, Alkaline Phosphatase 312 H, NT-Pro-B Natriuret Pep 5140 H, Total Protein 7.1, Albumin 3.4 L, Globulin 3.7 H, Albumin/Globulin Ratio 0.9 L, TSH 2.22, Acetone Level None detected 08/19/24 06:20: VBG pH 7.26 L, VBG pCO2 70.9 H, VBG pO2 50.5 H, VBG HCO3 31.3 H, VBG Total CO2 33.5 H, VBG O2 Saturation 83.2 H, VBG Base Excess 4.3 H, VBG Lactic Acid 2.9 H 08/19/24 08:02: VBG pH 7.36, VBG pCO2 63.7 H, VBG pO2 145.4 H, VBG HCO3 34.9 H, VBG Total CO2 36.8 H, VBG O2 Saturation 99.2 H, VBG Base Excess 9.3 H, VBG Lactic Acid 2.2 H Orders (Tests/Meds): ED MEDICATIONS Generic Name Dose Route Start Last Admin Trade Name Jarrod PRN Reason Stop Dose Admin Albuterol/Ipratropium 3 ml 08/19/24 12:00 Ipratropium/Albuterol 3 Ml [facility] 09/18/24 11:59 Q6RT [facility] Bumetanide 2 mg 08/19/24 14:00 Bumetanide 1mg/4ml Vial IV 08/19/24 14:01 ONCE ONE Piperacillin Sod/Tazobactam 100 mls @ 200 mls/hr 08/19/24 15:00 Sod 4.5 gm/ Sodium Chloride IV 08/29/24 14:59 Q8H [facility] Vancomycin HCl 2,250 mg/ 250 mls @ 125 mls/hr 08/19/24 23:00 Sodium Chloride IV 08/29/24 22:59 Q18H [facility] Insulin Human Lispro 0 unit 08/19/24 11:00 08/19/24 12:00 Humalog 100 Units/Ml 10ml Vial ([facility]) SUBCUT 09/18/24 10:59 10 unit ACHS [facility] Administration Protocol Sodium Chloride 3 ml 08/19/24 10:11 Sodium Chloride 3% 15ml [facility] 09/18/24 10:10 ONCE PRN INDUCE SPUTUM COLLECTION Discontinued Medications Generic Name Dose Route Start Last Admin Trade Name Jarrod PRN Reason Stop Dose Admin Albuterol/Ipratropium 9 ml 08/19/24 06:10 08/19/24 06:15 Ipratropium/Albuterol 3 Ml [facility] 08/19/24 06:11 9 ml ONCE ONE Administration Bumetanide 2 mg 08/19/24 08:03 08/19/24 08:54 Bumetanide 1mg/4ml Vial IV 08/19/24 08:04 2 mg ONCE ONE Administration Magnesium Sulfate 2 gm in 50 mls @ 50 mls/hr 08/19/24 06:08 08/19/24 06:16 Magnesium Sulfate 2gm/50ml Premix IV 08/19/24 07:07 50 mls/hr ONCE ONE Administration Piperacillin Sod/Tazobactam 100 mls @ 200 mls/hr 08/19/24 06:46 08/19/24 06:52 Sod 4.5 gm/ Sodium Chloride IV 08/19/24 07:15 200 mls/hr ONCE ONE Administration Vancomycin HCl 2,000 mg/ 250 mls @ 125 mls/hr 08/19/24 07:00 08/19/24 08:53 Sodium Chloride IV 08/19/24 08:59 125 mls/hr ONCE ONE Administration Methylprednisolone Sodium Succinate 125 mg 08/19/24 06:11 08/19/24 06:16 Methylprednisolone Sod Succ 125mg Vial IM 08/19/24 06:12 125 mg ONCE ONE Administration Miscellaneous 1 each 08/19/24 07:00 08/19/24 09:17 Vancomycin Consult Request NOTAPPLIC 09/18/24 06:59 Not Given CONSULT PHARMACY [facility] ORDERS Category Date Time Status Pulmonology Consult [Consult to Pulmonology] [CONS] Cons 08/19/24 08:27 Active Routine CXR --portable [XR chest portable] Stat Exams 08/19/24 06:08 Completed Acetone, Serum (Rapid) Stat Lab 08/19/24 06:14 Completed BNP [NT Pro Brain Natriuretic Pep.] Stat Lab 08/19/24 06:14 Completed CBC w/Auto Diff [Complete Blood Count Auto Diff] Stat Lab 08/19/24 06:14 Completed CMP [Comprehensive Metabolic Panel] Stat Lab 08/19/24 06:14 Completed Complete Blood Count Auto Diff AMLAB Lab 08/20/24 06:00 Ordered Comprehensive Metabolic Panel AMLAB Lab 08/20/24 06:00 Ordered Lactate Venous Stat Lab 08/19/24 06:20 Ordered Magnesium AMLAB Lab 08/20/24 06:00 Ordered T+B-Lymphocyte Differential Stat Lab 08/19/24 07:00 Received TSH [Thyroid Stimulating Hormone] Stat Lab 08/19/24 06:14 Completed UA [Urinalysis and Microscopic] Stat Lab 08/19/24 06:09 Ordered Blood Culture Stat Micro 08/19/24 06:15 Received VBG [Venous Blood Gas] Stat RT 08/19/24 06:20 Completed VBG [Venous Blood Gas] Stat RT 08/19/24 08:02 Completed Medical Decision Narrative: 69-year-old male with history of COPD, heart failure, on 2 L nasal cannula baseline, recent fall with multiple rib fractures, diabetes, HIV presents for altered mental status at home, daughter believes he is retaining CO2. History was obtained via interactive discussion with patient, family, chart review. On arrival, patient is borderline febrile with a temperature of 100.2, normotensive, severely hypoxic with oxygen sats in the 70s on home 2 L nasal cannula, moving all extremities spontaneously. Full physical exam performed and significant for diminished air movement bilaterally with wheezing bilaterally, severe bilateral lower extremity venous stasis disease, patient generally weak, mildly confused. Fingerstick normal. Patient was placed on nonrebreather and came up to the 90s after a few minutes. Differential includes but is not limited to pneumonia, COPD exacerbation, UTI, bacteremia, sepsis. Patient was given DuoNeb x 3, IV Solu-Medrol, IV magnesium for symptomatic management and correction of underlying abnormalities. Workup initiated including CBC CMP CD4 count VBG UA blood cultures urine urine culture chest x- ray TSH EKG. VBG results show combined respiratory metabolic acidosis with pH 7.26, pCO2 71, lactate 2.8. Patient was placed on BiPAP. Patient was not given any fluids given concern for volume overload. Patient was placed on broad- spectrum antibiotics for coverage including Vanco and Zosyn. On re-evaluation, patient looks improved on the BiPAP. Laboratory workup independently interpreted by me and significant for white count 11.9, sodium 131, creatinine at baseline. Other labs remain pending. Imaging independently interpreted by me and significant for low lung volumes bilaterally. See radiology read for full review of final results. DO Drake: I assumed care of the patient at 7 AM. On my assessment, he is resting comfortably on BiPAP with reassuring vital signs on cardiac telemetry. Patient has leukocytosis, elevated inflammatory markers, elevated lactic with borderline fever and tachypnea. Concerns for sepsis based on this. He was already given IV vancomycin and Zosyn. He was not given sepsis bolus, as he has CHF exacerbation as well with signs of volume overload and elevated BNP. He was given 2 of Bumex IV. He tolerated BiPAP very well with improvement in his respiratory acidosis. At this time, he was deemed to be appropriate for admission for management of acute respiratory failure related to possible pneumonia as well as CHF exacerbation. I had an interactive discussion with the hospitalist who admitted the patient in stable condition Procedures <Jhonathan Ivory MD - Last Filed: 08/19/24 07:00> Risk/Benefits of Procedure(s) Were Explained: Yes Critical Care <Jhonathan Ivory MD - Last Filed: 08/19/24 07:00> Critical Care Time Critical Care Time: Yes Attestation: On 08/19/24, the high probability of a clinically significant, sudden or life threatening deterioration of the following system(s) required my full and direct attention, intervention and personal management. The time I documented below is in addition to time spent performing reported procedures but includes the following listed in this critical care notation. Total Time Total Critical Care Time: 40
[2024-08-19] MEDS: IPRATROPIUM/ALBUTEROL 3 ML NEB 9 ML IH (06:15)
[2024-08-19] MEDS: METHYLPREDNISOLONE SOD SUCC 125MG VIAL 125 MG IM (06:16)
[2024-08-19] MEDS: MAGNESIUM SULFATE IN WATER 2 GM/50 ML PIGGYBACK IV (06:16)
[2024-08-19 06:22] LABS: VBG Base Excess 4.3 mmol/L (-2.4-2.3); VBG HCO3 31.3 mmol/L (23-30); VBG Oxygen Saturation 83.2 % (50-70); VBG PCO2 70.9 mmol/L (35-51); VBG PH 7.26 mmol/L (7.31-7.41); VBG PO2 50.5 mmol/L (28-40); VBG Total CO2 33.5 mmol/L (23-27)
--- NOTE | 2024-08-19 06:27 | ECG_ITS ---
APPROVED REPORT Exam: Resting ECG HR:87 bpm ECG Measurements Heart Rate 87 AXES QRSd 153 QRS 67 QT 402 T -17 QTc 447 Conclusion ATRIAL FIBRILLATION INTRAVENTRICULAR CONDUCTION DELAY [130+ ms QRS DURATION] LATERAL MYOCARDIAL INFARCTION , OF INDETERMINATE AGE [40+ ms Q WAVE AND/OR ST/T ABNORMALITY IN I/aVL/V5/V6] ABNORMAL ECG Electronically signed by : ELVIA ARGUELLES, 08/19/2024 15:32:40
[2024-08-19 06:44] LABS: Basophils # 0.1 K/mm3 (0-0.2); Basophils % 0.8 % (0.1-2.0); Chloride 91 mmol/L (98-107); Eosinophils # 0.1 K/mm3 (0.0-0.4); Eosinophils % 0.4 % (0.1-12.0); Hematocrit 49.5 % (42.0-52.0); Lymphocytes # 1.2 K/mm3 (0.7-4.5); Lymphocytes % 9.7 % (10-50); Mean Corpuscular HGB Conc 30.3 g/dL (31.8-35.4); Mean Platelet Volume 7.2 fl (7.4-10.4); Monocytes # 0.7 K/mm3 (0.1-1.0); Monocytes % 6.1 % (1.7-9.3); Neutrophils # 9.8 K/mm3 (1.8-7.8); Platelet Count 235 K/mm3 (142-424); Red Blood Count 5.56 M/mm3 (4.60-6.20); Red Cell Distribution Width 15.4 % (11.5-17.5); White Blood Count 11.9 K/mm3 (4.8-10.8)
[2024-08-19 06:45] LABS: Albumin Level 3.4 g/dl (3.5-5.0); Potassium 4.5 mmoL/L (3.5-5.1); Sodium 131 mmol/L (136-145)
[2024-08-19 06:46] LABS: Acetone, Serum (Rapid) None Detected (None Detect)
[2024-08-19 06:47] LABS: Alanine Aminotransferase 23 U/L (12-78); Blood Urea Nitrogen 24 mg/dl (9-20); Creatinine Clearance Estimated 99 mL/min (50-200); Estimated Glomerular Filt Rate 60 ml/min (>60); GFR (African American) 72 ML/MIN (>60)
[2024-08-19 06:48] LABS: Albumin/Globulin Ratio 0.9 (1.1-1.8); Alkaline Phosphatase 312 U/L (38-126); Anion Gap 7.5 mEq/L (5-15); Aspartate Amino Transferase 32 U/L (17-59); Calcium 8.4 mg/dl (8.4-10.2); Carbon Dioxide 37 mmol/L (22.0-30.0); Globulin 3.7 g/dL (1.3-3.2); Glucose 314 mg/dl (74-100); Total Protein,Serum 7.1 g/dl (6.3-8.2)
[2024-08-19] MEDS: PIPERACILLIN/TAZO 4.5 GM in 0.9 % SODIUM CHLORIDE 100 ML IV ×2 (06:52→15:23)
[2024-08-19 06:57] LABS: NT Pro Brain Natriuretic Pep. 5140 pg/mL (0-125)
[2024-08-19 07:19] LABS: Thyroid Stimulating Hormone 2.22 uIU/mL (0.465-4.68)
[2024-08-19 07:23] LABS: Lactate Venous 2.9 mmol/L (0.4-2.0)
[2024-08-19 08:34] LABS: Lactate Venous 2.2 mmol/L (0.4-2.0); VBG Base Excess 9.3 mmol/L (-2.4-2.3); VBG HCO3 34.9 mmol/L (23-30); VBG Oxygen Saturation 99.2 % (50-70); VBG PCO2 63.7 mmol/L (35-51); VBG PH 7.36 mmol/L (7.31-7.41); VBG PO2 145.4 mmol/L (28-40); VBG Total CO2 36.8 mmol/L (23-27)
[2024-08-19] MEDS: VANCOMYCIN HCL 2,000 MG in 0.9 % SODIUM CHLORIDE 250 ML 125 MG IV (08:53)
[2024-08-19] MEDS: BUMETANIDE 1MG/4ML VIAL 2 MG IV ×2 (08:54→13:51)
--- NOTE | 2024-08-19 09:43 | EXP.PHA.CONS ---
Pharmacy Consult Date: 08/19/24 Time: 09:43 Referring provider: DR. LUJAN Reason for Consult:: VANCOMYCIN DOSING Allergies Allergy/AdvReac Type Severity Reaction Status Date / Time SANDRA Inhibitors Allergy Unknown Unknown Verified 08/12/24 13:49 allergy reaction clofibrate Allergy Unknown Unknown Verified 08/12/24 13:49 allergy reaction enalapril Allergy Unknown Unknown Verified 08/12/24 13:49 allergy reaction erythromycin base Allergy Unknown Unknown Verified 08/12/24 13:49 allergy reaction gemfibrozil Allergy Unknown Unknown Verified 08/12/24 13:49 allergy reaction hepatitis A virus vaccine Allergy Unknown Unknown Verified 08/12/24 13:49 allergy reaction hydralazine Allergy Unknown Unknown Verified 08/12/24 13:49 allergy reaction Macrolide Antibiotics Allergy Unknown Unknown Verified 08/12/24 13:49 allergy reaction pravastatin (From Pravachol) Allergy Unknown Unknown Verified 08/12/24 13:49 allergy reaction Ymgnwbx-DOK-YrQ Reductase Allergy Unknown Unknown Verified 08/12/24 13:49 Inhibitor (Fqpanec-Tvc-Glz allergy Reductase Inhibitor) reaction Home Medications ?Medication ?Instructions ?Recorded ?Confirmed ?Type finasteride 5 mg tablet 5 mg PO DAILY 11/13/18 08/12/24 History insulin regular hum U-500 conc 500 65 unit SQ BID Diabetes 11/13/18 08/12/24 History unit/mL subcutaneous soln metoprolol tartrate 100 mg tablet 100 mg PO BID 11/13/18 08/12/24 History aspirin 81 mg tablet,delayed 81 mg PO DAILY 08/02/19 08/12/24 History release gabapentin 300 mg capsule 900 mg PO 0900,1700 08/02/19 08/12/24 History tamsulosin 0.4 mg capsule 0.4 mg PO HS 01/06/20 08/12/24 History methocarbamol 750 mg tablet 750 mg PO Q6HP PRN Muscle Spasm 11/26/20 08/12/24 History pantoprazole 40 mg tablet,delayed 40 mg PO BID 11/26/20 08/12/24 History release cholecalciferol (vitamin D3) 25 25 mcg PO DAILY 12/30/20 08/12/24 History mcg (1,000 unit) capsule ascorbic acid (vitamin C) 500 mg 500 mg PO DAILY 09/16/23 08/12/24 History capsule ferrous sulfate 325 mg (65 mg 325 mg PO DAILY 09/16/23 08/12/24 History iron) tablet (Iron (ferrous sulfate)) venlafaxine 150 mg 150 mg PO DAILY 09/16/23 08/12/24 History capsule,extended release 24 hr (Effexor XR) empagliflozin 25 mg tablet 12.5 mg PO DAILY 03/15/24 08/12/24 History acetaminophen 500 mg tablet 1,000 mg (2 x 500 mg) PO Q6HP PRN 03/18/24 08/12/24 Rx Fever Or Mild Pain (1-3) #0 tabs bictegravir 50 mg-emtricitabine 1 each PO DAILY 30 days #30 tabs 03/18/24 08/12/24 Rx 200 mg-tenofovir alafenam 25 mg tablet gabapentin 300 mg capsule 1,200 mg (4 x 300 mg) PO HS 30 03/18/24 08/12/24 Rx days #120 caps polyethylene glycol 3350 17 gram 17 g PO DAILYP PRN Constipation #0 03/18/24 08/12/24 Rx oral powder packet (HealthyLax) ea tramadol 50 mg tablet 50 mg PO Q6HP PRN Severe Pain 03/18/24 08/12/24 Rx (Scale Score 7-10) 30 days #120 tabs tiotropium 2.5 mcg-olodaterol 2.5 2 puff inhalation DAILY 07/26/24 08/12/24 History mcg/actuation mist for inhalation (Stiolto Respimat) bumetanide 2 mg tablet 2 mg PO BIDL Fluid 30 days #0 tabs 07/27/24 08/12/24 Rx hydrocodone 5 mg-acetaminophen 325 1 tab PO Q6HP PRN Severe Pain 07/27/24 08/12/24 Rx mg tablet (7-10) 3 days #11 tabs New Prescriptions to Start Prescriptions: Height: 1.8 m Weight: 122.47 kg Laboratory Results:: Laboratory Results - last 24 hr 08/19/24 06:14: WBC 11.9 H, RBC 5.56, Hgb 15.0, Hct 49.5, MCV 89.0, MCH 27.0, MCHC 30.3 L, RDW 15.4, Plt Count 235, MPV 7.2 L, Neut % (Auto) 83.0 H, Lymph % (Auto) 9.7 L, [place] % (Auto) 6.1, Eos % (Auto) 0.4, Baso % (Auto) 0.8, Neut # (Auto) 9.8 H, Lymph # (Auto) 1.2, [place] # (Auto) 0.7, Eos # (Auto) 0.1, Baso # (Auto) 0.1, Sodium 131 L, Potassium 4.5, Chloride 91 L, Carbon Dioxide 37 H, Anion Gap 7.5, BUN 24 H, Creatinine 1.20, Estimated Creat Clear 99, Estimated GFR 60, Est GFR ( Amer) 72, Glucose 314 H, Calcium 8.4, Total Bilirubin 1.0, AST 32, ALT 23, Alkaline Phosphatase 312 H, NT-Pro-B Natriuret Pep 5140 H, Total Protein 7.1, Albumin 3.4 L, Globulin 3.7 H, Albumin/Globulin Ratio 0.9 L, TSH 2.22, Acetone Level None detected 08/19/24 06:20: VBG pH 7.26 L, VBG pCO2 70.9 H, VBG pO2 50.5 H, VBG HCO3 31.3 H, VBG Total CO2 33.5 H, VBG O2 Saturation 83.2 H, VBG Base Excess 4.3 H, VBG Lactic Acid 2.9 H 08/19/24 08:02: VBG pH 7.36, VBG pCO2 63.7 H, VBG pO2 145.4 H, VBG HCO3 34.9 H, VBG Total CO2 36.8 H, VBG O2 Saturation 99.2 H, VBG Base Excess 9.3 H, VBG Lactic Acid 2.2 H Medical History: Medical History (Updated 08/19/24 @ 08:57 by Syeda Juan DO) Closed fracture of neck of left humerus GI bleed due to NSAIDs Morbid obesity with BMI of 45.0-49.9, adult Hypertension Chronic venous stasis dermatitis of both lower extremities HIV (human immunodeficiency virus infection) Diabetes mellitus, type 2 Assessment and Plan Assessment and plan all Dx Assessment and Plan for all problems:: Pharmacokinetic dosing service Objective: Patient: Floor: Age: 69 yo Serum creatinine: 1.2 mg/dL Height: 71.0 Inches Weight (kg): 122.5 Assessment: IBW (kg): 75.30 Dosing wt(kg): 122.5 Estimated Creatinine clearance (ml/min): 61.0 CRCL method: Cockcroft and Gault using ibw(default). Drug selected: Vancomycin Loading dose (mg): 0 Vd (liters): 98.0 (factor used: 0.8 L/kg) Tino (hr-1): 0.055 Half life (hrs): 12.60 Recommended dose: 2250 mg Interval: 18 hrs Infusion time (hrs): 2.0 Predicted peak (mcg/mL): 34.6 Predicted trough (mcg/mL): 14.35 Total body weight is being used for vancomycin dosing. Recommendations: Give Vancomycin 2250 mg q 18 hrs with an expected Cpeak of 34.6 mcg/ml and an expected Ctrough of 14.35 mcg/ml ----Vanco only - ignore for aminoglycosides----- CLvanco= 5.39 L/hr AUC 0-24 /MOUNA Data: MOUNA 0.5 mcg/mL: AUC/MOUNA: 1113.2 MOUNA 1.0 mcg/mL: AUC/MOUNA: 556.6 --------- MOUNA 1.5 mcg/mL: AUC/MOUNA: 371.1 MOUNA 2.0 mcg/mL: AUC/MOUNA: 278.3
--- NOTE | 2024-08-19 09:49 | PC.NURSE ---
faxed [facility] refusal
--- NOTE | 2024-08-19 09:50 | P.CONS_ITS ---
History of Present Illness History of present illness: Mr. Love is a 77-year-old male with reported history of HIV CAD chronic hypoxic respiratory failure hypertension diastolic heart failure visiting skilled nursing presented to the ER status post fall found to be needing increasing oxygen requirements and pulmonary was called for further evaluation and management. [facility] Disclaimer: The information contained in this section may have been updated after the patient was seen, as this information can be updated by other users. Medical History (Updated 08/19/24 @ 11:05 by Silvio Hill MD) Pneumonia Pleural effusion, bilateral Acute respiratory failure with hypoxia and hypercarbia Closed fracture of neck of left humerus GI bleed due to NSAIDs Morbid obesity with BMI of 45.0-49.9, adult Hypertension Chronic venous stasis dermatitis of both lower extremities HIV (human immunodeficiency virus infection) Diabetes mellitus, type 2 Family History Other No significant family history Social History Smoking Status: Unknown if ever smoked second hand exposure: No alcohol intake: never substance use type: denies use current occupational status: retired Travel in the last 8 weeks: None household members: spouse and family housing: house current occupational exposures/hazards: No caffeine: Yes Have you lived/traveled outside [place] in past 30 days?: No Contact w/someone who lives/traveled outside [place] past 30 days?: No Exposure to someone with infectious disease in past 14 days?: No Do you have a fever (greater than 100.4 F or 38 C)?: No Have you tested positive for COVID-19: No Exposed to someone with COVID-19 in past 14 days?: No Do you have a sore throat?: No Do you have a cough?: No Do you have any weakness?: No Do you have any diarrhea?: No Are you experiencing any unusual bleeding?: No Do you have any muscle aches/pain?: No Do you have any abdominal pain?: No Are you experiencing loss of taste or smell?: No Review of Systems Review of Systems Review of systems:: unable to obtain Review of systems (narrative): Patient is awake after his BiPAP however not alert and oriented. Unable to respond appropriately to verbal questions. Will continue to follow Pulmonology Exam Inpatient Vital signs and Labs for Last 24 Hours: Temp Pulse Resp BP Pulse Ox O2 Del Method O2 Flow Rate 100.2 F H 96 H 20 129/75 98 BiPAP 8 08/19/24 05:59 08/19/24 09:30 08/19/24 09:30 08/19/24 09:30 08/19/24 09:30 08/19/24 08:30 08/19/24 06:30 FiO2 50 08/19/24 06:15 Laboratory Results - last 24 hr 08/19/24 06:14: WBC 11.9 H, RBC 5.56, Hgb 15.0, Hct 49.5, MCV 89.0, MCH 27.0, M CHC 30.3 L, RDW 15.4, Plt Count 235, MPV 7.2 L, Neut % (Auto) 83.0 H, Lymph % (Auto) 9.7 L, [place] % (Auto) 6.1, Eos % (Auto) 0.4, Baso % (Auto) 0.8, Neut # (Auto) 9.8 H, Lymph # (Auto) 1.2, [place] # (Auto) 0.7, Eos # (Auto) 0.1, Baso # (Auto) 0.1, Sodium 131 L, Potassium 4.5, Chloride 91 L, Carbon Dioxide 37 H, Anion Gap 7.5, BUN 24 H, Creatinine 1.20, Estimated Creat Clear 99, Estimated GFR 60, Est GFR ( Amer) 72, Glucose 314 H, Calcium 8.4, Total Bilirubin 1.0, AST 32, ALT 23, Alkaline Phosphatase 312 H, NT-Pro-B Natriuret Pep 5140 H, Total Protein 7.1, Albumin 3.4 L, Globulin 3.7 H, Albumin/Globulin Ratio 0.9 L, TSH 2.22, Acetone Level None detected 08/19/24 06:20: VBG pH 7.26 L, VBG pCO2 70.9 H, VBG pO2 50.5 H, VBG HCO3 31.3 H, VBG Total CO2 33.5 H, VBG O2 Saturation 83.2 H, VBG Base Excess 4.3 H, VBG Lactic Acid 2.9 H 08/19/24 08:02: VBG pH 7.36, VBG pCO2 63.7 H, VBG pO2 145.4 H, VBG HCO3 34.9 H, VBG Total CO2 36.8 H, VBG O2 Saturation 99.2 H, VBG Base Excess 9.3 H, VBG Lactic Acid 2.2 H I & O for Labs for Last 24 Hours: Intake & Output 08/16/24 08/17/24 08/18/24 08/19/24 23:59 23:59 23:59 23:59 Weight 270 lb Constitutional: Present severe distress Head: Present normocephalic and atraumatic ENT: Present normal exam, normal oropharynx and mucous membranes moist Neck: Present normal inspection and full ROM Respiratory: Present respiratory distress and diminished air movement; Absent able to speak in complete sentences Cardiac: Present S1/S2, Tachycardia and radial pulses present GI: Present soft and distention; Absent tenderness or guarding Skin: Present intact; Absent cyanosis or jaundice Neuro: Present awake; Absent alert or oriented x 3 Extremities: Present normal inspection; Absent clubbing or cyanosis Psychiatric: Present normal affect and cooperative Meds Home Medications and Allergies Home Medications ?Medication ?Instructions ?Recorded ?Confirmed ?Type finasteride 5 mg tablet 5 mg PO DAILY 11/13/18 08/12/24 History insulin regular hum U-500 conc 500 65 unit SQ BID Diabetes 11/13/18 08/12/24 History unit/mL subcutaneous soln metoprolol tartrate 100 mg tablet 100 mg PO BID 11/13/18 08/12/24 History aspirin 81 mg tablet,delayed 81 mg PO DAILY 08/02/19 08/12/24 History release gabapentin 300 mg capsule 900 mg PO 0900,1700 08/02/19 08/12/24 History tamsulosin 0.4 mg capsule 0.4 mg PO HS 01/06/20 08/12/24 History methocarbamol 750 mg tablet 750 mg PO Q6HP PRN Muscle Spasm 11/26/20 08/12/24 History pantoprazole 40 mg tablet,delayed 40 mg PO BID 11/26/20 08/12/24 History release cholecalciferol (vitamin D3) 25 25 mcg PO DAILY 12/30/20 08/12/24 History mcg (1,000 unit) capsule ascorbic acid (vitamin C) 500 mg 500 mg PO DAILY 09/16/23 08/12/24 History capsule ferrous sulfate 325 mg (65 mg 325 mg PO DAILY 09/16/23 08/12/24 History iron) tablet (Iron (ferrous sulfate)) venlafaxine 150 mg 150 mg PO DAILY 09/16/23 08/12/24 History capsule,extended release 24 hr (Effexor XR) empagliflozin 25 mg tablet 12.5 mg PO DAILY 03/15/24 08/12/24 History acetaminophen 500 mg tablet 1,000 mg (2 x 500 mg) PO Q6HP PRN 03/18/24 08/12/24 Rx Fever Or Mild Pain (1-3) #0 tabs bictegravir 50 mg-emtricitabine 1 each PO DAILY 30 days #30 tabs 03/18/24 08/12/24 Rx 200 mg-tenofovir alafenam 25 mg tablet gabapentin 300 mg capsule 1,200 mg (4 x 300 mg) PO HS 30 03/18/24 08/12/24 Rx days #120 caps polyethylene glycol 3350 17 gram 17 g PO DAILYP PRN Constipation #0 03/18/24 08/12/24 Rx oral powder packet (HealthyLax) ea tramadol 50 mg tablet 50 mg PO Q6HP PRN Severe Pain 03/18/24 08/12/24 Rx (Scale Score 7-10) 30 days #120 tabs tiotropium 2.5 mcg-olodaterol 2.5 2 puff inhalation DAILY 07/26/24 08/12/24 History mcg/actuation mist for inhalation (Stiolto Respimat) bumetanide 2 mg tablet 2 mg PO BIDL Fluid 30 days #0 tabs 07/27/24 08/12/24 Rx hydrocodone 5 mg-acetaminophen 325 1 tab PO Q6HP PRN Severe Pain 07/27/24 08/12/24 Rx mg tablet (7-10) 3 days #11 tabs New Prescriptions to Start Prescriptions: Allergies Allergy/AdvReac Type Severity Reaction Status Date / Time SANDRA Inhibitors Allergy Unknown Unknown Verified 08/12/24 13:49 allergy reaction clofibrate Allergy Unknown Unknown Verified 08/12/24 13:49 allergy reaction enalapril Allergy Unknown Unknown Verified 08/12/24 13:49 allergy reaction erythromycin base Allergy Unknown Unknown Verified 08/12/24 13:49 allergy reaction gemfibrozil Allergy Unknown Unknown Verified 08/12/24 13:49 allergy reaction hepatitis A virus vaccine Allergy Unknown Unknown Verified 08/12/24 13:49 allergy reaction hydralazine Allergy Unknown Unknown Verified 08/12/24 13:49 allergy reaction Macrolide Antibiotics Allergy Unknown Unknown Verified 08/12/24 13:49 allergy reaction pravastatin (From Pravachol) Allergy Unknown Unknown Verified 08/12/24 13:49 allergy reaction Kcjxqyy-GOV-CtZ Reductase Allergy Unknown Unknown Verified 08/12/24 13:49 Inhibitor (Fmjndbf-Ylw-Gml allergy Reductase Inhibitor) reaction Results Laboratory Findings 08/19/24 06:14 08/19/24 06:14 Abnormal lab findings: Abnormal Labs 08/19/24 08/19/24 08/19/24 06:14 06:20 08:02 WBC 11.9 H MCHC 30.3 L MPV 7.2 L Neut % (Auto) 83.0 H Lymph % (Auto) 9.7 L Neut # (Auto) 9.8 H VBG pH 7.26 L VBG pCO2 70.9 H 63.7 H VBG pO2 50.5 H 145.4 H VBG HCO3 31.3 H 34.9 H VBG Total CO2 33.5 H 36.8 H VBG O2 Saturation 83.2 H 99.2 H VBG Base Excess 4.3 H 9.3 H VBG Lactic Acid 2.9 H 2.2 H Sodium 131 L Chloride 91 L Carbon Dioxide 37 H BUN 24 H Glucose 314 H Alkaline Phosphatase 312 H NT-Pro-B Natriuret Pep 5140 H Albumin 3.4 L Globulin 3.7 H Albumin/Globulin Ratio 0.9 L Assessment and Plan *Assessment and plan (1) Acute respiratory failure with hypoxia and hypercarbia: Status: Acute Category: Medical Code(s): J96.01 - Acute respiratory failure with hypoxia; J96.02 - Acute respiratory failure with hypercapnia (2) Pleural effusion, bilateral: Status: Acute Category: Medical Code(s): J90 - Pleural effusion, not elsewhere classified (3) Pneumonia: Status: Acute Category: Medical Code(s): J18.9 - Pneumonia, unspecified organism Plan Mr. Love is a 77-year-old male with reported history of HIV CAD chronic hypoxic respiratory failure hypertension diastolic heart failure visiting skilled nursing presented to the ER status post fall found to be needing increasing oxygen requirements and pulmonary was called for further evaluation and management. Low-grade fever. Mild neutrophilic predominant leukocytosis. Hypercarbic respiratory failure upon admission with a pH of 7.26 and pCO2 70.9. Improving to recent pH of 7.36 with a pCO2 of 63.7. pO2 at 145.4. CT chest July 2024 also showed bilateral effusions left greater than right. No dense consolidative changes noted on the CT scan Chest x-ray upon admission bilateral patchy airspace disease and effusions. Patient on BiPAP well examination. No significant wheezing noted on auscultation. Bilateral lower extremity cellulitis noted. Plan: Wean BiPAP to nasal cannula with O2 saturation of 90% and above. Currently on 3 L nasal cannula. Repeat VBG in 2 hours. DuoNebs every 6 hours on a scheduled basis Continue vancomycin and Zosyn pending culture results Closely follow with mentation, he was awake after receiving BiPAP however not alert and oriented. He is not clear how he came to the hospital.
--- NOTE | 2024-08-19 10:44 | PC.NURSE ---
report given to damir bruno
[2024-08-19 11:24] LABS: Reflex Lactic Add Lactic Reflex
[2024-08-19] MEDS: humaLOG 100 UNITS/ML 10ML VIAL (SSI) SUBCUT ×3 (12:00→21:02)
[2024-08-19 12:07] LABS: VBG Base Excess 6.8 mmol/L (-2.4-2.3); VBG HCO3 30.5 mmol/L (23-30); VBG Oxygen Saturation 99.6 % (50-70); VBG PH 7.47 mmol/L (7.31-7.41); VBG PO2 169.2 mmol/L (28-40); VBG Total CO2 31.8 mmol/L (23-27)
[2024-08-19 12:08] LABS: Lactate Venous 3.6 mmol/L (0.4-2.0)
[2024-08-19 12:12] LABS: Lactic Acid Follow Up (RFLX 1) 2.4 mmol/L (0.7-2.1)
--- NOTE | 2024-08-19 13:22 | ECG_ITS ---
APPROVED REPORT Exam: Resting ECG HR:106 bpm ECG Measurements Heart Rate 106 AXES QRSd 152 QRS -44 QT 377 T -60 QTc 439 Conclusion ATRIAL FIBRILLATION WITH RAPID VENTRICULAR RESPONSE LEFT AXIS DEVIATION [QRS AXIS < -30] RIGHT BUNDLE BRANCH BLOCK [120+ ms QRS DURATION, UPRIGHT V1, 40+ ms S IN I/aVL/V4/V5/V6] ST DEPRESSION, CONSIDER SUBENDOCARDIAL INJURY [0.1+ mV ST DEPRESSION] ABNORMAL ECG UNCONFIRMED REPORT Electronically signed by : Sabas Johnston MD 08/19/2024 14:35:17
[2024-08-19] MEDS: ENOXAPARIN 120MG/0.8ML SYRINGE 110 MG SUBCUT (13:49)
[2024-08-19] MEDS: METOPROLOL TARTRATE 5MG/5ML VIAL 5 MG IV (13:49)
[2024-08-19 13:54] LABS: Reflex Lactic (2 hrs) Add Lactic Reflex
--- NOTE | 2024-08-19 14:08 | PC.NURSE ---
lab at bedside.
[2024-08-19] MEDS: METOPROLOL TARTRATE 50MG TABLET 100 MG PO ×2 (15:23→21:02)
[2024-08-19 15:25] LABS: Microscopic, Urine URINE MICROSCOPIC (MICROSCOPIC)
[2024-08-19 15:29] LABS: Appearance,Urine CLEAR (Clear); Bilirubin,Urine Negative (Negative); Blood, Urine 2+ (Negative); Color,Urine YELLOW (Yellow); Glucose,Urine (UA) 3+ (Negative); Ketones,Urine Negative (Negative); Leukocyte Esterase,Urine Negative (Negative); Nitrate,Urine Negative (Negative); Protein,Urine Negative (Negative); Urobilinogen,Urine 0.2 EU/dl (0.2)
[2024-08-19 16:04] LABS: Bacteria,Urine 3+ /lpf; RBC,Urine 20-50 #/hpf (0-3)
[2024-08-19 16:08] LABS: POC Glucose,Bedside 268 (70-110)
[2024-08-19 16:08] LABS: POC Glucose,Bedside 214 (70-110)
--- NOTE | 2024-08-19 16:53 | PC.WOUNDNOTE ---
REDNESS AND SCABBING NOTED TO BLE
--- NOTE | 2024-08-19 17:41 | P.HP_ITS ---
History of Present Illness *Admission Date: 08/19/24 *Reason for visit:: Confused *History of present illness: Mr. Love is a 69-year-old male with a extensive past medical history including HIV, CAD, chronic oxygen therapy, hypertension, diastolic heart failure, poorly controlled diabetes, recent falls with stent at nursing facility within the past 4 months. He presented today due to increased confusion and shortness of breath. To be in hypercapnic respiratory failure with concern for pneumonia and CHF exacerbation. Patient altered on arrival. Initiated on BiPAP due to CO2 of 70 on VBG. Pulmonology consulted to assist with management. Medicine consulted for admission. Unable to obtain history from patient upon arrival to the floor due to altered mental status. Patient also noted to be in A-fib with RVR. This is a new diagnosis. Continue to monitor on telemetry. Will wean BiPAP if blood gas improves. Has had some changes to his pain medication over the past day or 2. Concern for polypharmacy and oversedation. Of note fell approximately 3 weeks ago with rib fracture sustained on his left side. Having more pain due to this. [facility] Disclaimer: The information contained in this section may have been updated after the patient was seen, as this information can be updated by other users. Medical History (Updated 08/19/24 @ 11:05 by Silvio Hill MD) Pneumonia Pleural effusion, bilateral Acute respiratory failure with hypoxia and hypercarbia Closed fracture of neck of left humerus GI bleed due to NSAIDs Morbid obesity with BMI of 45.0-49.9, adult Hypertension Chronic venous stasis dermatitis of both lower extremities HIV (human immunodeficiency virus infection) Diabetes mellitus, type 2 Family History Other No significant family history Social History Smoking Status: Unknown if ever smoked second hand exposure: No alcohol intake: never substance use type: denies use current occupational status: retired Travel in the last 8 weeks: None household members: spouse and family housing: house current occupational exposures/hazards: No caffeine: Yes Have you lived/traveled outside [place] in past 30 days?: No Contact w/someone who lives/traveled outside US past 30 days?: No Exposure to someone with infectious disease in past 14 days?: No Do you have a fever (greater than 100.4 F or 38 C)?: No Have you tested positive for COVID-19: No Exposed to someone with COVID-19 in past 14 days?: No Do you have a sore throat?: No Do you have a cough?: No Do you have any weakness?: No Do you have any diarrhea?: No Are you experiencing any unusual bleeding?: No Do you have any muscle aches/pain?: No Do you have any abdominal pain?: No Are you experiencing loss of taste or smell?: No Other Medical History Have you received the Flu Vaccine for this season: Yes Have you received the Pneumonia Vaccine: Yes Meds Home Medications and Allergies Home Medications ?Medication ?Instructions ?Recorded ?Confirmed ?Type finasteride 5 mg tablet 5 mg PO DAILY 11/13/18 08/12/24 History insulin regular hum U-500 conc 500 65 unit SQ BID Diabetes 11/13/18 08/12/24 History unit/mL subcutaneous soln metoprolol tartrate 100 mg tablet 100 mg PO BID 11/13/18 08/12/24 History aspirin 81 mg tablet,delayed 81 mg PO DAILY 08/02/19 08/12/24 History release gabapentin 300 mg capsule 900 mg PO TID 08/02/19 08/12/24 History tamsulosin 0.4 mg capsule 0.4 mg PO HS 01/06/20 08/12/24 History methocarbamol 750 mg tablet 750 mg PO Q6HP PRN Muscle Spasm 11/26/20 08/12/24 History pantoprazole 40 mg tablet,delayed 40 mg PO BID 11/26/20 08/12/24 History release cholecalciferol (vitamin D3) 25 25 mcg PO DAILY 12/30/20 08/12/24 History mcg (1,000 unit) capsule ascorbic acid (vitamin C) 500 mg 500 mg PO DAILY 09/16/23 08/12/24 History capsule ferrous sulfate 325 mg (65 mg 325 mg PO DAILY 09/16/23 08/12/24 History iron) tablet (Iron (ferrous sulfate)) venlafaxine 150 mg 150 mg PO DAILY 09/16/23 08/12/24 History capsule,extended release 24 hr (Effexor XR) empagliflozin 25 mg tablet 12.5 mg PO DAILY 03/15/24 08/12/24 History bictegravir 50 mg-emtricitabine 1 each PO DAILY 30 days #30 tabs 03/18/24 08/12/24 Rx 200 mg-tenofovir alafenam 25 mg tablet tiotropium 2.5 mcg-olodaterol 2.5 2 puff inhalation DAILY 07/26/24 08/12/24 History mcg/actuation mist for inhalation (Stiolto Respimat) Bifidobacterium infantis 10.5 mg 20 mg PO DAILY 08/19/24 08/19/24 History (10 million cell) chewable tablet (Align) albuterol 90 mcg/actuation aerosol 90 mcg inhalation NEEDED PRN 08/19/24 08/19/24 History inhaler (Drug) Ingestion bumetanide 2 mg tablet 2 mg PO BID 08/19/24 08/19/24 History omega 2-fkt-qjh-fish oil 1,200 mg 1,200 cap PO DAILY 08/19/24 08/19/24 History (144 mg-216 mg) capsule (Fish Oil) tramadol 50 mg tablet 50 mg PO BID 08/19/24 08/19/24 History tramadol 75 mg tablet 75 mg PO HS 08/19/24 08/19/24 History New Prescriptions to Start Prescriptions: Allergies Allergy/AdvReac Type Severity Reaction Status Date / Time SANDRA Inhibitors Allergy Unknown Unknown Verified 08/12/24 13:49 allergy reaction clofibrate Allergy Unknown Unknown Verified 08/12/24 13:49 allergy reaction enalapril Allergy Unknown Unknown Verified 08/12/24 13:49 allergy reaction erythromycin base Allergy Unknown Unknown Verified 08/12/24 13:49 allergy reaction gemfibrozil Allergy Unknown Unknown Verified 08/12/24 13:49 allergy reaction hepatitis A virus vaccine Allergy Unknown Unknown Verified 08/12/24 13:49 allergy reaction hydralazine Allergy Unknown Unknown Verified 08/12/24 13:49 allergy reaction Macrolide Antibiotics Allergy Unknown Unknown Verified 08/12/24 13:49 allergy reaction pravastatin (From Pravachol) Allergy Unknown Unknown Verified 08/12/24 13:49 allergy reaction Iombpem-DKW-QmV Reductase Allergy Unknown Unknown Verified 08/12/24 13:49 Inhibitor (Msjdpyy-Ssb-Uga allergy Reductase Inhibitor) reaction Exam Data for Last 24 hours Vital signs and Labs for Last 24 Hours: Temp Pulse Resp BP Pulse Ox O2 Del Method O2 Flow Rate 97.8 F 120 H 18 149/91 H 96 Nasal Cannula 3 08/19/24 12:00 08/19/24 16:44 08/19/24 15:54 08/19/24 15:54 08/19/24 16:00 08/19/24 16:41 08/19/24 16:41 FiO2 50 08/19/24 06:15 Laboratory Results - last 24 hr 08/19/24 06:14: WBC 11.9 H, RBC 5.56, Hgb 15.0, Hct 49.5, MCV 89.0, MCH 27.0, MCHC 30.3 L, RDW 15.4, Plt Count 235, MPV 7.2 L, Neut % (Auto) 83.0 H, Lymph % (Auto) 9.7 L, Coffee % (Auto) 6.1, Eos % (Auto) 0.4, Baso % (Auto) 0.8, Neut # (Auto) 9.8 H, Lymph # (Auto) 1.2, Coffee # (Auto) 0.7, Eos # (Auto) 0.1, Baso # (Auto) 0.1, Sodium 131 L, Potassium 4.5, Chloride 91 L, Carbon Dioxide 37 H, Anion Gap 7.5, BUN 24 H, Creatinine 1.20, Estimated Creat Clear 99, Estimated GFR 60, Est GFR ( Amer) 72, Glucose 314 H, Calcium 8.4, Total Bilirubin 1.0, AST 32, ALT 23, Alkaline Phosphatase 312 H, NT-Pro-B Natriuret Pep 5140 H, Total Protein 7.1, Albumin 3.4 L, Globulin 3.7 H, Albumin/Globulin Ratio 0.9 L, TSH 2.22, Acetone Level None detected 08/19/24 06:20: VBG pH 7.26 L, VBG pCO2 70.9 H, VBG pO2 50.5 H, VBG HCO3 31.3 H, VBG Total CO2 33.5 H, VBG O2 Saturation 83.2 H, VBG Base Excess 4.3 H, VBG Lactic Acid 2.9 H 08/19/24 08:02: VBG pH 7.36, VBG pCO2 63.7 H, VBG pO2 145.4 H, VBG HCO3 34.9 H, VBG Total CO2 36.8 H, VBG O2 Saturation 99.2 H, VBG Base Excess 9.3 H, VBG Lactic Acid 2.2 H 08/19/24 11:47: POC Glucose 268 H 08/19/24 11:50: Lactate 2.4 H 08/19/24 11:56: VBG pH 7.47 H, VBG pCO2 43.0, VBG pO2 169.2 H, VBG HCO3 30.5 H, VBG Total CO2 31.8 H, VBG O2 Saturation 99.6 H, VBG Base Excess 6.8 H, VBG Lactic Acid 3.6 H 08/19/24 14:07: Lactate 2.0 08/19/24 15:16: Urine Color Yellow, Urine Appearance Clear, Urine pH 6.0, Ur Specific [place] 1.010, Urine Protein Negative, Urine Glucose (UA) 3+, Urine Ketones Negative, Urine Blood 2+ A, Urine Nitrate Negative, Urine Bilirubin Negative, Urine Urobilinogen 0.2, Ur Leukocyte Esterase Negative, Urine RBC 20- 50, Urine WBC 10-20, Ur Squamous Epith Cells 3-5, Urine Bacteria 3+ 08/19/24 15:59: POC Glucose 214 H I & O for Last 24 hours: Intake & Output 08/16/24 08/17/24 08/18/24 08/19/24 23:59 23:59 23:59 23:59 Intake Total 100 / 100 Output Total 750 / 750 Balance -650 / -650 Weight 111.272 kg Constitutional Constitutional: moderate distress, obese, chronically ill appearing, disheveled and somnolent *Routine HEENT Exam Head: Present normocephalic Eye: Present EOMI and PERRL ENT: Present mucous membranes moist *Routine Neck Exam Neck: Present supple; Absent lymphadenopathy Routine Chest/Breast/Axilla Exam Chest wall: Present tenderness (Left-sided chest) *Routine Respiratory Exam Respiratory: Present prolonged expiratory phase, crackles (Posterior bases) and diminished air movement; Absent accessory muscle use, rhonchi or wheezes *Routine Cardiovascular Exam Cardiovascular: Present RRR *Routine Abdominal Exam Abdominal: Present soft and normoactive bowel sounds; Absent tenderness *Routine Rectal Exam Rectal:: deferred *Routine Genitalia Exam Genitalia:: deferred *Routine Extremities Exam Extremities: Absent cyanosis, clubbing or edema Comments: Wounds on legs with scabbing, chronic stasis changes *Routine Skin Exam Skin: Present warm; Absent rash *Routine Neurological Exam Neurological: Present alert, altered mental status and moving all extremities; Absent oriented X3 Assessment and Plan *Assessment and plan (1) Sepsis due to pneumonia: Status: Acute Category: Medical Code(s): J18.9 - Pneumonia, unspecified organism; A41.9 - Sepsis, unspecified organism (2) Pneumonia: Status: Acute Category: Medical Code(s): J18.9 - Pneumonia, unspecified organism (3) Acute respiratory failure with hypoxia and hypercarbia: Status: Acute Category: Medical Code(s): J96.01 - Acute respiratory failure with hypoxia; J96.02 - Acute respiratory failure with hypercapnia (4) AMS (altered mental status): Status: Acute Category: Medical Code(s): R41.82 - Altered mental status, unspecified (5) Acute exacerbation of CHF (congestive heart failure): Status: Acute Category: Medical Code(s): I50.9 - Heart failure, unspecified (6) Pleural effusion, bilateral: Status: Acute Category: Medical Code(s): J90 - Pleural effusion, not elsewhere classified (7) Fall: Status: Resolved Qualifiers: Encounter type: initial encounter Qualified Code(s): W19.XXXA - Unspecified fall, initial encounter Category: Medical Code(s): W19.XXXA - Unspecified fall, initial encounter (8) Multiple closed fractures of ribs of left side: Status: Acute Qualifiers: Encounter type: initial encounter Qualified Code(s): S22.42XA - Multiple fractures of ribs, left side, initial encounter for closed fracture Category: Medical Code(s): S22.42XA - Multiple fractures of ribs, left side, initial encounter for closed fracture (9) Acute on chronic heart failure with preserved ejection fraction (HFpEF): Status: Acute Category: Medical Code(s): I50.33 - Acute on chronic diastolic (congestive) heart failure (10) Diabetes type 2, uncontrolled: Status: Acute Qualifiers: Glycemic state: with hyperglycemia Qualified Code(s): E11.65 - Type 2 diabetes mellitus with hyperglycemia Category: Medical Code(s): E11.65 - Type 2 diabetes mellitus with hyperglycemia (11) COPD (chronic obstructive pulmonary disease): Status: Acute Qualifiers: COPD type: unspecified COPD Qualified Code(s): J44.9 - Chronic obstructive pulmonary disease, unspecified Category: Medical Code(s): J44.9 - Chronic obstructive pulmonary disease, unspecified (12) Venous stasis ulcers of both lower extremities: Status: Chronic Category: Medical Code(s): I83.019 - Varicose veins of right lower extremity with ulcer of unspecified site; I83.029 - Varicose veins of left lower extremity with ulcer of unspecified site; L97.919 - Non-pressure chronic ulcer of unspecified part of right lower leg with unspecified severity; L97.929 - Non-pressure chronic ulcer of unspecified part of left lower leg with unspecified severity (13) HIV disease: Status: Chronic Category: Medical Code(s): B20 - Human immunodeficiency virus [HIV] disease (14) Obesity: Status: Resolved Qualifiers: Body mass index: BMI 45.0-49.9 Obesity classification: adult class 3 (BMI >= 40) Obesity type: due to excess calories Serious obesity comorbidity presence: with serious comorbidity Qualified Code(s): E66.01 - Morbid (severe) obesity due to excess calories; Z68.42 - Body mass index (BMI) 45.0-49.9, adult Category: Medical Code(s): E66.9 - Obesity, unspecified Plan 69-year-old male with multiple chronic medical conditions including poorly controlled type 2 diabetes, HIV, CHF, COPD, ABEL, recent rib fractures. Presented to the ER due to confusion and shortness of breath. Patient found to be hypercapnic with encephalopathy and pneumonia. Discussed case with ER physician, request admission for further management with BiPAP and antibiotics. I agreed to admit for further treatment. Initial blood gas with hypercapnia and respiratory acidosis. Responding to BiPAP. Pulmonology consulted to assist with care. Necessitating stepdown level of care. Problems addressed as follows: Sepsis with pneumonia Acute hypercapnic respiratory failure on chronic hypoxemic respiratory failure Pneumonia Recent rib fractures -Initiated on BiPAP, serial blood gas to evaluate for improvement. Will wean to nasal cannula when blood gas normalizes. Baseline 2 L oxygen. -Discussed case with pulmonology, continue vancomycin and Zosyn pending cultures. Monitor for improvement in mentation if able to wean off BiPAP. Co ntinue DuoNebs every 6 hours scheduled - Per my review of chest x-ray, appears to have volume overload with increased pulmonary congestion, effusion on right and left side. Concerning for pneumonia with atelectasis -Previous imaging at visit last month with the rib fractures in ribs 4 through 7 on the left side -Patient has had an increase in his pain medications at home. Appears oversedated, concern polypharmacy is complicating his care and exacerbating his respiratory failure -White count 12. Kidney function stable at baseline with BUN 24, creatinine 1.2. Repeat CBC, CMP, magnesium ordered for the morning Exacerbation of heart failure with preserved ejection fraction -Reviewed patient's chart, echo from 2019 with grade 1 diastolic dysfunction. BNP elevated around 400. Effusions on chest CT per my review. -BNP elevated at 5100, Bumex once in the ER. Will repeat a second dose of 2 mg this afternoon. Continue Bumex 2 mg IV twice daily -On chronic oxygen, 2 L. Does not know why he is on it other than his O2 sats have been low and he was told to start it. Suspect secondary to heart failure. -Continue metoprolol tartrate 100 mg twice daily Uncontrolled insulin-dependent diabetes: -A1c last month 7.3. Continue sliding scale insulin with fingersticks ACHS -Holding gabapentin due to oversedation. Will consider resuming at lower dose if mentation improves -Continue empagliflozin 12.5 mg daily BPH: Continue finasteride 5 mg daily, tamsulosin 0.4 mg nightly Lower extremity wounds/stasis dermatitis : Numerous wounds, no signs of infection at this time. Nursing to bandage History of HIV: Continue Biktarvy daily per home regimen; CD4 count pending Obesity complicates all aspects of his care Venlafaxine 150 mg daily for mood Pantoprazole 40 mg daily for GERD PT and OT to evaluate for placement versus home health Lovenox 1 mg/kg twice daily, therapeutic Full code Diabetic diet
--- NOTE | 2024-08-19 17:57 | PC.NURSE ---
pt new admit this shift. pt has been sleeping since arrival to the floor, pt is starting to wake up more and become alert. ls diminished t/o. pt currently on 3LNC with sats 96%. processing talc and borate supervisor in place and pt HR has been NSR-Afib with RVR. Dr. Patricio is aware of Afib. pt has been medicated per NOV. abdomen soft, nontender, bowel sounds active. pt has voided per urinal and does have male purewick in place as well. pt has does have scabbed areas noted to BLE. bed alarm is in place and call light w/i reach. PT did come to see pt this shift but pt was unable to participate in activities d/t level of drowsiness.
[2024-08-19] MEDS: IPRATROPIUM/ALBUTEROL 3 ML NEB IH (18:10)
--- NOTE | 2024-08-19 18:31 | PC.NURSE ---
Went over pt's home medication regimen with Kimmy, Pt's daughter. Kimmy to take home pt's Gabapentin and Tramadol, other home medications locked in the drawer. Will pass on in report.
[2024-08-19] MEDS: PANTOPRAZOLE 40MG TABLET 40 MG PO (21:02)
[2024-08-19] MEDS: TAMSULOSIN 0.4MG CAPSULE 0.4 MG PO (21:02)
[2024-08-20] VITALS (15 sets, daily range): BP systolic 95–141; BP diastolic 51–93; PULSE 85–134; RESP 14–19; TEMP 36.6–37; O2SAT 91–97; BMI 33.2
[2024-08-20] MEDS: VANCOMYCIN HCL 2,250 MG in 0.9 % SODIUM CHLORIDE 250 ML 125 MG IV ×2 (00:12→17:41)
[2024-08-20] MEDS: PIPERACILLIN/TAZO 4.5 GM in 0.9 % SODIUM CHLORIDE 100 ML IV ×4 (00:12→23:27)
[2024-08-20] MEDS: IPRATROPIUM/ALBUTEROL 3 ML NEB IH ×5 (00:22→23:13)
[2024-08-20 02:46] LABS: POC Glucose,Bedside 169 (70-110)
[2024-08-20] MEDS: ENOXAPARIN 120MG/0.8ML SYRINGE 110 MG SUBCUT (03:00)
[2024-08-20] MEDS: METOPROLOL TARTRATE 5MG/5ML VIAL 5 MG IV ×2 (03:00→06:44)
[2024-08-20] MEDS: DOCUSATE SODIUM 10 ML/UDC UDC PO ×3 (03:00→20:55)
[2024-08-20] MEDS: HYDROCODONE/APAP 5/325 MG TABLET 1 TAB PO (03:01)
--- NOTE | 2024-08-20 04:09 | EXP.EVENT.NO ---
Patient's heart rate and 120s, and unresponsive to Lopressor 5 mg IV push. Will therefore start patient on Cardizem drip.
[2024-08-20] MEDS: dilTIAZem HCL 100 MG in 0.9 % SODIUM CHLORIDE 100 ML IV (04:37)
--- NOTE | 2024-08-20 04:40 | ECG_ITS ---
APPROVED REPORT Exam: Resting ECG HR:127 bpm ECG Measurements Heart Rate 127 AXES MT 153 P 249 QRSd 142 QRS -33 QT 263 T -24 QTc 338 Conclusion ECTOPIC ATRIAL TACHYCARDIA LEFT AXIS DEVIATION [QRS AXIS < -30] RIGHT BUNDLE BRANCH BLOCK [120+ ms QRS DURATION, UPRIGHT V1, 40+ ms S IN I/aVL/V4/V5/V6] ST DEPRESSION, CONSIDER SUBENDOCARDIAL INJURY [0.1+ mV ST DEPRESSION] ABNORMAL ECG UNCONFIRMED REPORT Electronically signed by : DOMINIQUE DALY, 08/21/2024 06:53:41
[2024-08-20] MEDS: GLYCERIN ADULT 3GM SUPP 3 GM RC (05:20)
[2024-08-20 06:18] LABS: POC Glucose,Bedside 152 (70-110)
[2024-08-20 06:25] LABS: Albumin Level 3.2 g/dl (3.5-5.0); Chloride 94 mmol/L (98-107); Potassium 3.5 mmoL/L (3.5-5.1); Sodium 133 mmol/L (136-145)
[2024-08-20 06:27] LABS: Blood Urea Nitrogen 28 mg/dl (9-20); Creatinine Clearance Estimated 90 mL/min (50-200); Estimated Glomerular Filt Rate 60 ml/min (>60); GFR (African American) 72 ML/MIN (>60)
[2024-08-20 06:28] LABS: Alanine Aminotransferase 20 U/L (12-78); Albumin/Globulin Ratio 0.8 (1.1-1.8); Alkaline Phosphatase 250 U/L (38-126); Anion Gap 2.5 mEq/L (5-15); Aspartate Amino Transferase 27 U/L (17-59); Bilirubin,Total 0.8 mg/dl (0.2-1.3); Calcium 8.2 mg/dl (8.4-10.2); Carbon Dioxide 40 mmol/L (22.0-30.0); Globulin 3.8 g/dL (1.3-3.2); Glucose 165 mg/dl (74-100); Magnesium 2.2 mg/dl (1.6-2.3)
[2024-08-20 08:08] LABS: Basophils # 0.1 K/mm3 (0-0.2); Basophils % 0.3 % (0.1-2.0); Eosinophils # 0.1 K/mm3 (0.0-0.4); Eosinophils % 0.4 % (0.1-12.0); Hemoglobin 13.6 g/dL (14.1-18.0); Lymphocytes # 1.7 K/mm3 (0.7-4.5); Lymphocytes % 9.2 % (10-50); Mean Corpuscular HGB Conc 30.9 g/dL (31.8-35.4); Mean Corpuscular Hemoglobin 26.8 pg (27.0-31.2); Mean Corpuscular Volume 86.8 fl (80-94); Mean Platelet Volume 9.9 fl (7.4-10.4); Monocytes # 1.5 K/mm3 (0.1-1.0); Neutrophils % 81.8 % (37.0-80.0); Platelet Count 264 K/mm3 (142-424); Red Blood Count 5.07 M/mm3 (4.60-6.20); Red Cell Distribution Width 14.6 % (11.5-17.5); White Blood Count 18.3 K/mm3 (4.8-10.8)
[2024-08-20 08:10] LABS: MANUAL DIFFERENTIAL MANUAL DIFFERENTIAL (MANUAL DIFF)
[2024-08-20] MEDS: FINASTERIDE 5MG TABLET 5 MG PO (08:13)
[2024-08-20] MEDS: BUMETANIDE 1MG/4ML VIAL 2 MG IV ×2 (08:19→17:00)
[2024-08-20] MEDS: PANTOPRAZOLE 40MG TABLET 40 MG PO ×2 (08:23→20:54)
[2024-08-20] MEDS: BIKTARVY 1 EACH PO (08:27)
[2024-08-20] MEDS: METOPROLOL TARTRATE 50MG TABLET 100 MG PO ×2 (08:42→20:54)
--- NOTE | 2024-08-20 08:53 | HMH.PTEV ---
Physical Therapy Evaluation Rehab PT IP Evaluation Start: 08/19/24 11:13 Freq: ONCE Status: Active Protocol: Document 08/20/24 08:44 BASSEM (Rec: 08/20/24 08:52 BASSEM [id number]) Subjective/History History History Per H&P: Mr. Love is a 69-year-old male with a extensive past medical history including HIV, CAD, chronic oxygen therapy, hypertension, diastolic heart failure, poorly controlled diabetes, recent falls with stent at nursing facility within the past 4 months. He presented today due to increased confusion and shortness of breath. To be in hypercapnic respiratory failure with concern for pneumonia and CHF exacerbation. Patient altered on arrival. Initiated on BiPAP due to CO2 of 70 on VBG. Pulmonology consulted to assist with management. Medicine consulted for admission. Unable to obtain history from patient upon arrival to the floor due to altered mental status. Patient also noted to be in A-fib with RVR. This is a new diagnosis. Continue to monitor on telemetry. Will wean BiPAP if blood gas improves. Has had some changes to his pain medication over the past day or 2. Concern for polypharmacy and oversedation. Of note fell approximately 3 weeks ago with rib fracture sustained on his left side. Having more pain due to this. Subjective Subjective Pt reports he lives in an apartment with his . Pt reports hx of multiple falls. Pt usually IND with use of rollator. Pt has one DEANNA home. Pt pleasantly agreeable to mobility assessment. New diagnosis of cancer in past 12 No months? Rehab PT IP Eval Objective Appearance Patient Behavior Appropriate,Cooperative Patient Orientation Person,Situation Difficulty following instructions none Speech Pattern Clear Ambulation Patient Able to Ambulate Yes Ambulation Observation IP General Gait Pattern Observation Wide Based Gait Ambulation Distance (feet) 40 Ambulation Assistive Device Rolling Walker Ambulation Ability Contact Guard/Hand Hold, Minimal x 1 (25% assist) Balance Ability to Arise Able, uses arms to help Sitting Balance Steady, safe Standing Balance Steady, wide stance Dynamic Sitting Balance Ability Good Dynamic Standing Balance Ability Good Transfers Bed Transfer Ability Independent Sit to Stand Bed Transfer Ability Supervision/Stand by Rehab PT IP prob,goals,plan Problems Date of Evaluation: 08/20/24 PT IP Problems Transfers,Gait,Balance,Safety Rehab Potential Rehab Potential Good Equipment Needs Assistive Devices Rolling / Wheeled Walker Plan PT Intervention Plan Transfers,Gait,Balance,Safety, Therapeutic Exercise Other Intervention Plan 1-2 times PT Plan Frequency Daily Duration LOS Discharge Goals Bed Transfer Ability Independent Sit to Stand Chair Transfer Ability Independent Discharge Plan PT Discharge Plan Pt presents below baseline in gait, balance, and strength. PT recommending PT services to address deficits. PT recommending pt receive supervision with his mobility when at home d/t some mild balance sway noted during ambulation. Pt would benefit from skilled PT while at [facility] to address deficits and prevent further functional decline. Eval Complexity Eval Charge Codes 50707 - High Complexity PHYSICIAN CERTIFICATION: I certify the specified therapy services for Rachid Love JR are required, authorized, and reviewed every 30 days.
--- NOTE | 2024-08-20 09:04 | HMH.OTEV ---
OT Inpatient Evaluation Rehab OT IP Evaluation Start: 08/19/24 11:13 Freq: ONCE Status: Active Protocol: Document 08/20/24 08:58 [email or web address] (Rec: 08/20/24 09:04 GAEL [id number]) Rehab OT IP Assessment Subjective History Mr. Love is a 69-year-old male with a extensive past medical history including HIV, CAD, chronic oxygen therapy, hypertension, diastolic heart failure, poorly controlled diabetes, recent falls with stent at nursing facility within the past 4 months. He presented today due to increased confusion and shortness of breath. To be in hypercapnic respiratory failure with concern for pneumonia and CHF exacerbation . Patient altered on arrival. Initiated on BiPAP due to CO2 of 70 on VBG. Pulmonology consulted to assist with management. Medicine consulted for admission. Unable to obtain history from patient upon arrival to the floor due to altered mental status. Patient also noted to be in A-fib with RVR. This is a new diagnosis. Continue to monitor on telemetry. Will wean BiPAP if blood gas improves. Has had some changes to his pain medication over the past day or 2. Concern for polypharmacy and oversedation. Of note fell approximately 3 weeks ago with rib fracture sustained on his left side. Having more pain due to this. Patient lives in 1 story apart with 1 DEANNA with . Independent with ADLs and fx'l mobility prior to admission. Uses a rollator to ambulate. hx of falling at home. Subjective I can get up. Instructed Patient on safety awareness to complete bed mobility, transfers, fx'l mobility and ADL. Patient required Max A to complete supine->sit @ EOB with Mod A. Patient completed sit->stand with usage of RW CGA for safety. Patient manuever within room ~25ft with usage of RW with CGA for safety and hx of falling. Left Patient sitting upright in recliner with needs met at end of session. Objective Patient Orientation Person,Place,Name,Birthday Right Upper Extremity Gross ROM WFL Left Upper Extremity Gross ROM Mod Limitation 50% Bed Mobility bed mobility - supine/sit Assist Level Moderate x 1 (50% assist) Transfer Training Sit/Stand/Step Transfer,Sit/ Stand/Pivot Transfer Assist Level Contact Guard/Hand Hold Chair Transfer Ability Contact Guard/Hand Hold Chair Transfer Technique Sit to/from Ambulatory Chair Transfer Assistive Devices Rolling Walker Rehab OT IP prob,goals,plan Problems Date of Evaluation: 08/20/24 OT IP Problems Bed Mobility,Transfers,Balance ,Self care,Safety Rehab Potential Rehab Potential Good Equipment Needs Assistive Devices Rolling / Wheeled Walker Plan OT Plan Frequency Daily Duration LOS Discharge Goals Bed Mobility Ability Assistance x1 Sit to Stand Chair Transfer Ability Minimal x 2 (25% assist) Chair Transfer Ability Minimal x 2 (25% assist) Chair Transfer Technique Sit to/from Ambulatory Chair Transfer Assistive Devices Rolling Walker Discharge Plan OT Discharge Plan REcommend HH services after medical d/c. Patient will continue OT IP services while here at [facility] with focus on improving safety awareness during ADLs and fx'l mobility tasks. Eval Complexity Eval Charge Codes 33893 - Low Complexity PHYSICIAN CERTIFICATION: I certify the specified therapy services for Rachid Love are required, authorized, and reviewed every 30 days.
[2024-08-20] MEDS: [UNRECOGNIZED DRUG - OTHER] IH (09:06)
[2024-08-20] MEDS: TIOTROPIUM IH (09:06)
[2024-08-20] MEDS: OLODATEROL IH (09:06)
--- NOTE | 2024-08-20 09:20 | CA_ITS ---
APPROVED REPORT EXAM: Comprehensive 2D, Doppler, and color-flow Echocardiogram Uke Operator: Sosa Pate RT(R) Ht: 6 ft 1 in Wt: 245lbs BSA: 2.35 BP: 149/91 mmHg Indications: CHF, HTN, DM, resp failure, HIV+, CAD, hx AFIB with RVR, sepsis, AMS, bilateral pleural effusions . M-Mode Dimensions RVDd 1.84 cm (0.9-2.6) LA Diam 3.75 cm (1.9-4.0) LVDd 2.61 cm (3.5-5.7) LVDs 3.22 cm (3.5-5.7) IVSd 2.42 cm (0.6-1.1) PWd 2.18 cm (0.6-1.1) EF (Teich) 67.70% FS 23.40% EDV (Teich) 24.80 mL ESV (Teich) 41.60 mL LV Diastology E Decel Time 157 (160-240 msec) E/A Ratio 2.3 Aortic Valve AoV Peak Gustavo. 162.0 (50-130 cm/s) AO Peak GR. 10.50 mmHg AO Mean GR. 5.10 (<5 mmHg) AO VTI 29.7 (18-25 cm) Mitral Valve MV E Max Gustavo. 138.0 (40-130 cm/s) MV A Velocity 60.0 (40-130 cm/s) E/A Ratio 2.29 MV PHT 46.0 ms Left Ventricle The left ventricle is normal size. The left ventricular systolic function is low normal. There is increased LV wall thickness. There is normal LV segmental wall motion. Transmitral Doppler flow pattern suggests impaired LV relaxation. LVEF is 50%. Right Ventricle The right ventricle is mildly dilated. Right ventricle is mildly hypokinetic. Atria The left atrium is mildly dilated. The right atrium is mildly dilated. There is no Doppler evidence of interatrial shunt. Aortic Valve The aortic valve leaflets are mildly thickened. There is no aortic valvular stenosis. Trace aortic regurgitation. Mitral Valve Mild mitral annular calcification. The mitral valve leaflets are mildly thickened. No evidence of mitral valve stenosis. Trace mitral regurgitation. Tricuspid Valve The tricuspid valve leaflets are thin and pliable. Trace tricuspid regurgitation. There is insufficient TR jet to estimate RVSP. Pulmonic Valve The pulmonary valve is normal in structure. Trace pulmonic regurgitation. Great Vessels The aortic root is normal in size. The IVC is not well-visualized. Pericardium There is no pericardial effusion. Other Information Study Quality: Technically Difficult Conclusion Technically difficult study due to poor acoustic windows. Low normal LV systolic function (LVEF 50%). Mild RV dilation with mild reduction in RV function. Mild biatrial dilation. No significant valvular stenosis or regurgitation. Electronically signed by : Aniya Page MD 08/21/2024 11:50:46
--- NOTE | 2024-08-20 09:49 | EXP.PULM.PN ---
Subjective *Date: 08/20/24 *Time: 11:50 Interval history: No acute respiratory vents overnight. Patient admits significant improvement in his respiratory status Pulmonology Exam Inpatient Vital signs and Labs for Last 24 Hours: Temp Pulse Resp BP Pulse Ox O2 Del Method O2 Flow Rate 98.6 F 129 H 19 104/68 L 92 L Nasal Cannula 2 08/20/24 04:00 08/20/24 08:00 08/20/24 08:00 08/20/24 08:00 08/20/24 08:00 08/20/24 09:00 08/20/24 09:00 FiO2 50 08/19/24 06:15 Laboratory Results - last 24 hr 08/19/24 11:47: POC Glucose 268 H 08/19/24 11:50: Lactate 2.4 H 08/19/24 11:56: VBG pH 7.47 H, VBG pCO2 43.0, VBG pO2 169.2 H, VBG HCO3 30.5 H, VBG Total CO2 31.8 H, VBG O2 Saturation 99.6 H, VBG Base Excess 6.8 H, VBG Lactic Acid 3.6 H 08/19/24 14:07: Lactate 2.0 08/19/24 15:16: Urine Color Yellow, Urine Appearance Clear, Urine pH 6.0, Ur Specific Artie 1.010, Urine Protein Negative, Urine Glucose (UA) 3+, Urine Ketones Negative, Urine Blood 2+ A, Urine Nitrate Negative, Urine Bilirubin Negative, Urine Urobilinogen 0.2, Ur Leukocyte Esterase Negative, Urine RBC 20-50, Urine WBC 10-20, Ur Squamous Epith Cells 3-5, Urine Bacteria 3+ 08/19/24 15:59: POC Glucose 214 H 08/19/24 20:05: POC Glucose 169 H 08/20/24 05:37: WBC 18.3 H D, RBC 5.07, Hgb 13.6 L, Hct 44.0, MCV 86.8, MCH 26.8 L, MCHC 30.9 L, RDW 14.6, Plt Count 264, MPV 9.9, Neut % (Auto) 81.8 H, Lymph % (Auto) 9.2 L, [place] % (Auto) 8.0, Eos % (Auto) 0.4, Baso % (Auto) 0.3, Neut # (Auto) 15.0 H, Lymph # (Auto) 1.7, [place] # (Auto) 1.5 H, Eos # (Auto) 0.1, Baso # (Auto) 0.1, Sodium 133 L, Potassium 3.5 D, Chloride 94 L, Carbon Dioxide 40 H, Anion Gap 2.5 L, BUN 28 H, Creatinine 1.20, Estimated Creat Clear 90, Estimated GFR 60, Est GFR ( Amer) 72, Glucose 165 H D, Calcium 8.2 L, Magnesium 2.2, Total Bilirubin 0.8, AST 27, ALT 20, Alkaline Phosphatase 250 H, Total Protein 7.0, Albumin 3.2 L, Globulin 3.8 H, Albumin/Globulin Ratio 0.8 L 08/20/24 06:09: POC Glucose 152 H Temp Pulse Resp BP Pulse Ox O2 Del Method O2 Flow Rate 100.2 F H 96 H 20 129/75 98 BiPAP 8 08/19/24 05:59 08/19/24 09:30 08/19/24 09:30 08/19/24 09:30 08/19/24 09:30 08/19/24 08:30 08/19/24 06:30 FiO2 50 08/19/24 06:15 Laboratory Results - last 24 hr 08/19/24 06:14: WBC 11.9 H, RBC 5.56, Hgb 15.0, Hct 49.5, MCV 89.0, MCH 27.0, MCHC 30.3 L, RDW 15.4, Plt Count 235, MPV 7.2 L, Neut % (Auto) 83.0 H, Lymph % (Auto) 9.7 L, [place] % (Auto) 6.1, Eos % (Auto) 0.4, Baso % (Auto) 0.8, Neut # (Auto) 9.8 H, Lymph # (Auto) 1.2, [place] # (Auto) 0.7, Eos # (Auto) 0.1, Baso # (Auto) 0.1, Sodium 131 L, Potassium 4.5, Chloride 91 L, Carbon Dioxide 37 H, Anion Gap 7.5, BUN 24 H, Creatinine 1.20, Estimated Creat Clear 99, Estimated GFR 60, Est GFR ( Amer) 72, Glucose 314 H, Calcium 8.4, Total Bilirubin 1.0, AST 32, ALT 23, Alkaline Phosphatase 312 H, NT-Pro-B Natriuret Pep 5140 H, Total Protein 7.1, Albumin 3.4 L, Globulin 3.7 H, Albumin/Globulin Ratio 0.9 L, TSH 2.22, Acetone Level None detected 08/19/24 06:20: VBG pH 7.26 L, VBG pCO2 70.9 H, VBG pO2 50.5 H, VBG HCO3 31.3 H, VBG Total CO2 33.5 H, VBG O2 Saturation 83.2 H, VBG Base Excess 4.3 H, VBG Lactic Acid 2.9 H 08/19/24 08:02: VBG pH 7.36, VBG pCO2 63.7 H, VBG pO2 145.4 H, VBG HCO3 34.9 H, VBG Total CO2 36.8 H, VBG O2 Saturation 99.2 H, VBG Base Excess 9.3 H, VBG Lactic Acid 2.2 H I & O for Labs for Last 24 Hours: Intake & Output 08/17/24 08/18/24 08/19/24 08/20/24 23:59 23:59 23:59 23:59 Intake Total 100 / 690 599.167 / 599.167 Output Total 750 / 750 Balance -650 / -60 599.167 / 599.167 Weight 245 lb 5 oz 245 lb 4.122 oz Intake & Output 08/16/24 08/17/24 08/18/24 08/19/24 23:59 23:59 23:59 23:59 Weight 270 lb Microbiology Reports for the Last 24 Hours: Microbiology 08/19/24 06:15 Blood Blood Culture - Preliminary NO GROWTH AFTER 24 HOURS 08/19/24 06:20 Blood Blood Culture - Preliminary NO GROWTH AFTER 24 HOURS Constitutional: Present severe distress Head: Present normocephalic and atraumatic ENT: Present normal exam, normal oropharynx and mucous membranes moist Neck: Present normal inspection and full ROM Respiratory: Present respiratory distress, wheezes, crackles, diminished air movement and able to speak in complete sentences Cardiac: Present S1/S2, Tachycardia and radial pulses present GI: Present soft and distention; Absent tenderness or guarding Skin: Present intact; Absent cyanosis or jaundice Neuro: Present alert, awake and oriented x 3 Extremities: Present normal inspection; Absent clubbing or cyanosis Psychiatric: Present normal affect and cooperative Assessment and Plan *Assessment and plan (1) Acute respiratory failure with hypoxia and hypercarbia: Status: Acute Category: Medical Code(s): J96.01 - Acute respiratory failure with hypoxia; J96.02 - Acute respiratory failure with hypercapnia (2) Pleural effusion, bilateral: Status: Acute Category: Medical Code(s): J90 - Pleural effusion, not elsewhere classified (3) Pneumonia: Status: Acute Category: Medical Code(s): J18.9 - Pneumonia, unspecified organism Plan Mr. Love is a 77-year-old male with reported history of HIV CAD chronic hypoxic respiratory failure hypertension diastolic heart failure [facility] presented to the ER status post fall found to be needing increasing oxygen requirements and pulmonary was called for further evaluation and management. No significant smoking history. Carries a diagnosis disseminated histoplasmosis around 1989. Had a baseline diagnosis of COPD using Stiolto inhaler. Also using oxygen supplementation at 2 L. Low-grade fever. Mild neutrophilic predominant leukocytosis. Hypercarbic respiratory failure upon admission with a pH of 7.26 and pCO2 70.9. Improving to recent pH of 7.36 with a pCO2 of 63.7. pO2 at 145.4. CT chest July 2024 also showed bilateral effusions left greater than right. No dense consolidative changes noted on the CT scan Chest x-ray upon admission bilateral patchy airspace disease and effusions. Interval update: Tolerating nasal cannula well. No acute respiratory vents overnight. Worsening leukocytosis. Blood cultures no growth 24 hours. Afebrile. Hemodynamically stable Significant improvement in mentation, alert and oriented x 3 this morning. Blood cultures no growth 24 hours. Plan: Continue nasal oxygen supplementation to maintain O2 saturation goal of 90% and DuoNebs every 6 hours on a scheduled basis Antibiotics can be weaned to ceftriaxone and azithromycin from pulmonary standpoint.
--- NOTE | 2024-08-20 09:50 | HMH.PTWOUND ---
Rehab Inpt Wound Evaluation Rehab IP Wound Evaluation Start: 08/19/24 16:33 Freq: ONCE Status: Active Protocol: Document 08/20/24 09:46 YVON (Rec: 08/20/24 09:50 PHOMAO [id number]) Rehab PT Wound Assessment Subjective Subjective Per H&P: Mr. Love is a 69-year-old male with a extensive past medical history including HIV, CAD, chronic oxygen therapy, hypertension, diastolic heart failure, poorly controlled diabetes, recent falls with stent at nursing facility within the past 4 months. He presented today due to increased confusion and shortness of breath. To be in hypercapnic respiratory failure with concern for pneumonia and CHF exacerbation. Patient altered on arrival. Initiated on BiPAP due to CO2 of 70 on VBG. Pulmonology consulted to assist with management. Medicine consulted for admission. Unable to obtain history from patient upon arrival to the floor due to altered mental status. Patient also noted to be in A-fib with RVR. This is a new diagnosis. Continue to monitor on telemetry. Will wean BiPAP if blood gas improves. Has had some changes to his pain medication over the past day or 2. Concern for polypharmacy and oversedation. Of note fell approximately 3 weeks ago with rib fracture sustained on his left side. Having more pain due to this. Pt presents with B lower leg excoriation and wounds in various stages of healing. Plan/Recommendation Comment B lower leg wounds all currently appear to be scabbed over at this time. No frankly open sores noted currently. Pt has had similar presentation for quite some time per his report. Recommend continued use of petroleum jelly or other such topical ointment to maintain a softer scab on these wounds to allow for faster healing. Any topical dressing is likely to cause more harm than good at this time. [facility] [place] agree with this assessment . No current need for sharp debridement. Thank you for involving the wound care team in the care of this pt. Eval Complexity Eval Charge Codes 28027 - High Complexity PHYSICIAN CERTIFICATION: I certify the specified therapy services for Rachid Love JR are required, authorized, and reviewed every 30 days.
--- NOTE | 2024-08-20 10:03 | HMH.PHAINT1 ---
Pharmacy Intervention Comments: MEDICATION RECONCILIATION COMPLETED ON PATIENT BY CALLING [facility] REPORT. -NICOLE MAIERD
[2024-08-20 10:11] LABS: Eosinophils % 1 % (0-3); Lymphocytes % 14 % (10-50); Monocytes % 4 % (2-9); Neutrophils % 81 % (42-76); Platelet Estimate Normal; RBC Morphology Normal; Total Cells Counted 100
[2024-08-20] MEDS: dilTIAZem HCL 100 MG in 0.9 % SODIUM CHLORIDE 100 ML 15 MG IV ×2 (11:18→18:40)
[2024-08-20] MEDS: humaLOG 100 UNITS/ML 10ML VIAL (SSI) SUBCUT ×3 (11:19→21:00)
--- NOTE | 2024-08-20 11:27 | EXP.ACUTE.PN ---
Subjective *Date: 08/20/24 *Time: 13:25 Interval history: Feeling better today. At baseline mentation. Stable on 2 L oxygen. In A-fib with RVR, noted to tachyarrhythmia overnight. On diltiazem drip. Denies chest pain. Complaining of feeling like he needs have a bowel movement. Requesting enema as he has not had a bowel movement in 4 days. Medical Exam Vital signs and Labs for Last 24 Hours: Vital Signs Temp Pulse Pulse Resp BP Pulse Ox O2 Del Method 08/20/24 23:15 114 H 08/20/24 23:15 105 H 08/20/24 23:15 95 Nasal Cannula 08/20/24 22:00 131 H 116/76 95 Nasal Cannula 08/20/24 21:00 Nasal Cannula 08/20/24 20:00 130 H 08/20/24 20:00 134 H 94 L Nasal Cannula 08/20/24 20:00 85 15 128/77 93 L Nasal Cannula 08/20/24 18:59 Nasal Cannula 08/20/24 18:06 131 H 08/20/24 18:06 130 H 08/20/24 18:06 91 L Room Air 08/20/24 17:00 Nasal Cannula 08/20/24 16:00 120 H 08/20/24 16:00 97.8 F 133 H 18 102/64 L 95 Nasal Cannula 08/20/24 16:00 Nasal Cannula 08/20/24 15:00 Nasal Cannula 08/20/24 14:00 98.2 F 130 H 16 111/58 L 92 L Nasal Cannula 08/20/24 13:00 Nasal Cannula 08/20/24 12:00 130 H 08/20/24 12:00 130 H 16 95/51 L 93 L Nasal Cannula 08/20/24 11:49 115 H 08/20/24 11:49 118 H 08/20/24 11:00 Nasal Cannula 08/20/24 10:00 127 H 17 110/75 92 L Nasal Cannula 08/20/24 09:00 Nasal Cannula 08/20/24 08:00 120 H 08/20/24 08:00 129 H 19 104/68 L 92 L Nasal Cannula 08/20/24 07:58 Nasal Cannula 08/20/24 06:17 129 H 08/20/24 06:17 127 H 08/20/24 06:17 95 Nasal Cannula 08/20/24 04:00 98.6 F 127 H 18 120/70 97 Nasal Cannula 08/20/24 04:00 120 H 08/20/24 03:02 126 H 141/93 H 08/20/24 01:00 Nasal Cannula 08/20/24 00:36 128 H 08/20/24 00:36 129 H 08/20/24 00:00 110 H 08/20/24 00:00 98.4 F 126 H 14 110/73 97 Nasal Cannula O2 Flow Rate 08/20/24 23:15 08/20/24 23:15 08/20/24 23:15 2 08/20/24 22:00 2 08/20/24 21:00 2 08/20/24 20:00 08/20/24 20:00 2 08/20/24 20:00 2 08/20/24 18:59 2 08/20/24 18:06 08/20/24 18:06 08/20/24 18:06 08/20/24 17:00 2 08/20/24 16:00 08/20/24 16:00 2 08/20/24 16:00 2 08/20/24 15:00 2 08/20/24 14:00 2 08/20/24 13:00 2 08/20/24 12:00 08/20/24 12:00 2 08/20/24 11:49 08/20/24 11:49 08/20/24 11:00 2 08/20/24 10:00 2 08/20/24 09:00 2 08/20/24 08:00 08/20/24 08:00 2 08/20/24 07:58 2 08/20/24 06:17 08/20/24 06:17 08/20/24 06:17 3 08/20/24 04:00 3 08/20/24 04:00 08/20/24 03:02 08/20/24 01:00 3 08/20/24 00:36 08/20/24 00:36 08/20/24 00:00 08/20/24 00:00 3 Intake and Output 08/20/24 08/20/24 08/20/24 07:59 15:59 23:59 Intake Total 599.167 / 1547.167 848 / 1547.167 100 / 1547.167 Output Total 1125 / 1700 575 / 1700 Balance 599.167 / -152.833 -277 / -152.833 -475 / -152.833 Intake: Intake, Oral Amount 240 / 1010 770 / 1010 Intake, Total IV Amount 359.167 / 537.167 78 / 537.167 100 / 537.167 Piperacillin/Tazo 4.5 gm In 0.9 100 / 100 % Sodium Chloride 100 ml @ 200 mls/hr IV Q8H [facility] Rx#:[id number] Vancomycin HCl 2,250 mg In 0.9 250 / 250 % Sodium Chloride 250 ml @ 125 mls/hr IV Q18H [facility] Rx#:[id number] Output: Output, Urine Amount 1125 / 1700 575 / 1700 Other: Number of Unmeasured Voids 1 Number of Bowel Movements 1 Weight 111.247 kg Patient Weight 08/20/24 23:59 Weight 111.247 kg Laboratory Results - last 24 hr 08/19/24 07:00: WBC 11.4 H, RBC 5.20, Hgb 14.2, Hct 44.8, MCV 86, MCH 27.3, MCHC 31.7, RDW 14.3, Plt Count 254, Abs Immat Gran (auto) 0.1, Absolute Lymphs (auto) 1.8, Absolute Monos (auto) 0.8, Absolute Eos (auto) 0.0, Absolute Basos (auto) 0.1, Immature Gran % 1, Neutrophils % 76, Lymphocytes % 15, Monocytes % 7, Eosinophils % 0, Basophils % 1, Nucleated RBC % TNP, Absolute Neutrophils 8.7 H, Absolute CD3 Count 913, % CD3+ Lymphocytes 50.7 L, % CD4 [place] 17.5 L, Absolute CD4 [place] 315 L, CD4/CD8 Ratio 0.53 L, % CD8 Suppressor 32.9, Absolute CD8 Count 592, % CD19+ Lymphocyte 2.0 L, Absolute CD19+ Lymph 36 08/19/24 20:05: POC Glucose 169 H 08/20/24 05:37: WBC 18.3 H D, RBC 5.07, Hgb 13.6 L, Hct 44.0, MCV 86.8, MCH 26.8 L, MCHC 30.9 L, RDW 14.6, Plt Count 264, MPV 9.9, Neut % (Auto) 81.8 H, Lymph % (Auto) 9.2 L, [place] % (Auto) 8.0, Eos % (Auto) 0.4, Baso % (Auto) 0.3, Neut # (Auto) 15.0 H, Lymph # (Auto) 1.7, [place] # (Auto) 1.5 H, Eos # (Auto) 0.1, Baso # (Auto) 0.1, Total Counted 100, Neutrophils % (Manual) 81 H, Lymphocytes % (Manual) 14, Monocytes % (Manual) 4, Eosinophils % (Manual) 1, Platelet Estimate Normal, RBC Morphology Normal, Sodium 133 L, Potassium 3.5 D, Chloride 94 L, Carbon Dioxide 40 H, Anion Gap 2.5 L, BUN 28 H, Creatinine 1.20, Estimated Creat Clear 90, Estimated GFR 60, Est GFR ( Amer) 72, Glucose 165 H D, Calcium 8.2 L, Magnesium 2.2, Total Bilirubin 0.8, AST 27, ALT 20, Alkaline Phosphatase 250 H, Total Protein 7.0, Albumin 3.2 L, Globulin 3.8 H, Albumin/Globulin Ratio 0.8 L 08/20/24 06:09: POC Glucose 152 H 08/20/24 11:19: POC Glucose 250 H 08/20/24 16:00: Vancomycin Trough 17.3 H 08/20/24 16:55: POC Glucose 216 H 08/20/24 20:26: POC Glucose 201 H 08/20/24 21:40: Vancomycin Peak 36.3 I & O for Labs for Last 24 Hours: Intake & Output 08/17/24 08/18/24 08/19/24 08/20/24 23:59 23:59 23:59 23:59 Intake Total 100 / 690 1547.167 / 1547.167 Output Total 750 / 750 1700 / 1700 Balance -650 / -60 -152.833 / -152.833 Weight 111.272 kg 111.247 kg Microbiology Reports for the Last 24 Hours: Microbiology 08/19/24 06:15 Blood Blood Culture - Preliminary NO GROWTH AFTER 24 HOURS 08/19/24 06:20 Blood Blood Culture - Preliminary NO GROWTH AFTER 24 HOURS Constitutional: Present no acute distress, obese, chronically ill appearing and cooperative Head: Present atraumatic and normocephalic ENT: Present normal exam Neck: Present normal inspection Respiratory: Present prolonged expiratory phase and diminished air movement; Absent rhonchi, wheezes or crackles Cardiac: Present Regular Rhythm and Tachycardia GI: Present soft, distention and normal bowel sounds (male): Present deferred Extremities: Absent edema Skin: Present intact and warm Comment:: lesions on legs, chronic Neuro: Present alert, awake, oriented x 3 and moves all extremities Assessment and Plan *Assessment and plan (1) Sepsis due to pneumonia: Status: Acute Category: Medical Code(s): J18.9 - Pneumonia, unspecified organism; A41.9 - Sepsis, unspecified organism (2) Atrial fibrillation with rapid ventricular response: Status: Acute Category: Medical Code(s): I48.91 - Unspecified atrial fibrillation (3) Pneumonia: Status: Acute Category: Medical Code(s): J18.9 - Pneumonia, unspecified organism (4) Acute respiratory failure with hypoxia and hypercarbia: Status: Acute Category: Medical Code(s): J96.01 - Acute respiratory failure with hypoxia; J96.02 - Acute respiratory failure with hypercapnia (5) AMS (altered mental status): Status: Acute Category: Medical Code(s): R41.82 - Altered mental status, unspecified (6) Acute exacerbation of CHF (congestive heart failure): Status: Acute Category: Medical Code(s): I50.9 - Heart failure, unspecified (7) Pleural effusion, bilateral: Status: Acute Category: Medical Code(s): J90 - Pleural effusion, not elsewhere classified (8) Fall: Status: Resolved Qualifiers: Encounter type: initial encounter Qualified Code(s): W19.XXXA - Unspecified fall, initial encounter Category: Medical Code(s): W19.XXXA - Unspecified fall, initial encounter (9) Multiple closed fractures of ribs of left side: Status: Acute Qualifiers: Encounter type: initial encounter Qualified Code(s): S22.42XA - Multiple fractures of ribs, left side, initial encounter for closed fracture Category: Medical Code(s): S22.42XA - Multiple fractures of ribs, left side, initial encounter for closed fracture (10) Acute on chronic heart failure with preserved ejection fraction (HFpEF): Status: Acute Category: Medical Code(s): I50.33 - Acute on chronic diastolic (congestive) heart failure (11) Diabetes type 2, uncontrolled: Status: Acute Qualifiers: Glycemic state: with hyperglycemia Qualified Code(s): E11.65 - Type 2 diabetes mellitus with hyperglycemia Category: Medical Code(s): E11.65 - Type 2 diabetes mellitus with hyperglycemia (12) COPD (chronic obstructive pulmonary disease): Status: Acute Qualifiers: COPD type: unspecified COPD Qualified Code(s): J44.9 - Chronic obstructive pulmonary disease, unspecified Category: Medical Code(s): J44.9 - Chronic obstructive pulmonary disease, unspecified (13) Venous stasis ulcers of both lower extremities: Status: Chronic Category: Medical Code(s): I83.019 - Varicose veins of right lower extremity with ulcer of unspecified site; I83.029 - Varicose veins of left lower extremity with ulcer of unspecified site; L97.919 - Non-pressure chronic ulcer of unspecified part of right lower leg with unspecified severity; L97.929 - Non-pressure chronic ulcer of unspecified part of left lower leg with unspecified severity (14) HIV disease: Status: Chronic Category: Medical Code(s): B20 - Human immunodeficiency virus [HIV] disease (15) Obesity: Status: Resolved Qualifiers: Body mass index: BMI 45.0-49.9 Obesity classification: adult class 3 (BMI >= 40) Obesity type: due to excess calories Serious obesity comorbidity presence: with serious comorbidity Qualified Code(s): E66.01 - Morbid (severe) obesity due to excess calories; Z68.42 - Body mass index (BMI) 45.0-49.9, adult Category: Medical Code(s): E66.9 - Obesity, unspecified Plan 69-year-old male with multiple chronic medical conditions including poorly controlled type 2 diabetes, HIV, CHF, COPD, ABEL, recent rib fractures. Presented to the ER due to confusion and shortness of breath. Patient found to be hypercapnic with encephalopathy and pneumonia. Discussed case with ER physician, request admission for further management with BiPAP and antibiotics. I agreed to admit for further treatment. Initial blood gas with hypercapnia and respiratory acidosis. Improved mentation. Back to baseline today. Slowly reintroduce some of his home medications for pain at decreased doses. High risk for polypharmacy. Currently in A-fib with RVR on diltiazem drip. Continues to necessitate inpatient management. Problems addressed as follows: Sepsis with pneumonia Acute hypercapnic respiratory failure on chronic hypoxemic respiratory failure Pneumonia Recent rib fractures -Hypercarbia resolved with BiPAP. On baseline 2 L oxygen now. Showing improvement. - Discussed case with pulmonology, transition to ceftriaxone. Continue DuoNebs every 6 hours scheduled -White count up to 18. Kidney function 1.2 creatinine and BUN of 28. Repeat CBC, CMP, magnesium ordered for the morning. -Discontinue vancomycin and Zosyn. Transition to ceftriaxone 1 g daily. Will hold on azithromycin due to allergy to macrolides Exacerbation of heart failure with preserved ejection fraction A-fib with RVR -Reviewed patient's chart, echo from 2019 with grade 1 diastolic dysfunction. BNP elevated around 400. Effusions on chest CT per my review. -BNP elevated at 5100, Bumex once in the ER. Continue Bumex 2 mg IV twice daily -On chronic oxygen, 2 L. Does not know why he is on it other than his O2 sats have been low and he was told to start it. Suspect secondary to heart failure. -Continue metoprolol tartrate 100 mg twice daily -Continue diltiazem drip. Initiate short acting diltiazem 30 mg every 8 hours. Will attempt to capture heart rate. - Cardiology evaluated today, discussed case, will consider LUCRECIA and cardioversion in the morning if does not cardiovert on his own. Uncontrolled insulin-dependent diabetes: -A1c last month 7.3. Continue sliding scale insulin with fingersticks ACHS -Resume gabapentin at decreased dose of 600 mg nightly. -Continue empagliflozin 12.5 mg daily BPH: Continue finasteride 5 mg daily, tamsulosin 0.4 mg nightly Lower extremity wounds/stasis dermatitis : Numerous wounds, no signs of infection at this time. Nursing to bandage History of HIV: Continue Biktarvy daily per home regimen; CD4 count pending Obesity complicates all aspects of his care Venlafaxine 150 mg daily for mood, on hold at this time Pantoprazole 40 mg daily for GERD PT and OT to evaluated, recommend home health Lovenox 1 mg/kg twice daily, therapeutic Full code Diabetic diet
[2024-08-20 11:38] LABS: POC Glucose,Bedside 250 (70-110)
--- NOTE | 2024-08-20 11:41 | SW/DCPLANNER ---
Addendum entered by Mary Hall 08/22/24 10:19: I spoke w/ patient's daughter this AM. PT/OT stated that patient could benefit from placement at time of discharge. Per daughter patient did not have a good experience at last SNF placement. Daughter plans to return home w/ patient to assist once medically stable for discharge. CM will resume home health services at time of discharge. Per daughter no further needs at this time. Original Note: I spoke w/ this patient regarding plans once medically stable for discharge. PT/OT evaluated patient and recommended home health services. Patient stated that he plans to return back home and is currently established w/ [facility]. I will update Karson w/ [facility] regarding hospital admission and possible discharge for tomorrow pending no setbacks.
--- NOTE | 2024-08-20 12:23 | EXP.CARD.CON ---
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 Patient came to the emergency department with worsening confusion and shortness of breath. Diagnosed with pneumonia versus CHF. Admitting CO2 was 70 on VBG and EKG revealed new A-fib with RVR. Patient reports a recent increase in his pain meds with a subsequent fall and rib fracture. He has atelectasis left lower lobe and possible pneumonia. proBNP 5000, no troponins drawn, chest x-ray shows mild cardiomegaly and decreased lung volumes with moderate atelectasis left lung base. EKG x 3 shows probable A-fib. Patient already on metoprolol 100 mg twice daily at home. He is on Lovenox here. During my visit in the room with the patient he appeared to convert to sinus rhythm. He has severe bilateral lower extremity skin changes with numerous excoriations. [facility] Disclaimer: The information contained in this section may have been updated after the patient was seen, as this information can be updated by other users. Medical History Pneumonia Pleural effusion, bilateral Acute respiratory failure with hypoxia and hypercarbia Closed fracture of neck of left humerus GI bleed due to NSAIDs Morbid obesity with BMI of 45.0-49.9, adult Hypertension Chronic venous stasis dermatitis of both lower extremities HIV (human immunodeficiency virus infection) Diabetes mellitus, type 2 Family History Other No significant family history Social History Smoking Status: Unknown if ever smoked second hand exposure: No alcohol intake: never substance use type: denies use current occupational status: retired Travel in the last 8 weeks: None household members: spouse and family housing: house current occupational exposures/hazards: No caffeine: Yes Have you lived/traveled outside [place] in past 30 days?: No Contact w/someone who lives/traveled outside US past 30 days?: No Exposure to someone with infectious disease in past 14 days?: No Do you have a fever (greater than 100.4 F or 38 C)?: No Have you tested positive for COVID-19: No Exposed to someone with COVID-19 in past 14 days?: No Do you have a sore throat?: No Do you have a cough?: No Do you have any weakness?: No Do you have any diarrhea?: No Are you experiencing any unusual bleeding?: No Do you have any muscle aches/pain?: No Do you have any abdominal pain?: No Are you experiencing loss of taste or smell?: No Review of Systems Constitutional Constitutional: Denies fatigue and Denies weakness Eyes Eyes: Denies loss of vision ENT Ears, Nose, Mouth, and Throat: Denies hearing loss and Denies vertigo *Cardiovascular Cardiovascular: Denies chest pain, Denies dyspnea and Denies syncope *Respiratory Respiratory: Denies cough and Denies dyspnea *Gastrointestinal Gastrointestinal: Denies change in stool character, Denies nausea and Denies vomiting *Genitourinary Genitourinary: Denies difficulty urinating *Musculoskeletal Musculoskeletal: Denies muscle weakness Integumentary/Breasts Skin/Breast: Denies changing lesions *Neurologic Neurologic: Denies loss of vision, Denies syncope, Denies vertigo and Denies weakness Endocrine Endocrine: Denies fatigue Exam Data for Last 24 hours Vital signs and Labs for Last 24 Hours: Temp Pulse Resp BP Pulse Ox O2 Del Method O2 Flow Rate 98.6 F 115 H 17 110/75 92 L Nasal Cannula 2 08/20/24 04:00 08/20/24 11:49 08/20/24 10:00 08/20/24 10:00 08/20/24 10:00 08/20/24 11:00 08/20/24 11:00 FiO2 50 08/19/24 06:15 Laboratory Results - last 24 hr 08/19/24 11:47: POC Glucose 268 H 08/19/24 14:07: Lactate 2.0 08/19/24 15:16: Urine Color Yellow, Urine Appearance Clear, Urine pH 6.0, Ur Specific [place] 1.010, Urine Protein Negative, Urine Glucose (UA) 3+, Urine Ketones Negative, Urine Blood 2+ A, Urine Nitrate Negative, Urine Bilirubin Negative, Urine Urobilinogen 0.2, Ur Leukocyte Esterase Negative, Urine RBC 20-50, Urine WBC 10-20, Ur Squamous Epith Cells 3-5, Urine Bacteria 3+ 08/19/24 15:59: POC Glucose 214 H 08/19/24 20:05: POC Glucose 169 H 08/20/24 05:37: WBC 18.3 H D, RBC 5.07, Hgb 13.6 L, Hct 44.0, MCV 86.8, MCH 26.8 L, MCHC 30.9 L, RDW 14.6, Plt Count 264, MPV 9.9, Neut % (Auto) 81.8 H, Lymph % (Auto) 9.2 L, Citrus % (Auto) 8.0, Eos % (Auto) 0.4, Baso % (Auto) 0.3, Neut # (Auto) 15.0 H, Lymph # (Auto) 1.7, Cit[place] # (Auto) 1.5 H, Eos # (Auto) 0.1, Baso # (Auto) 0.1, Total Counted 100, Neutrophils % (Manual) 81 H, Lymphocytes % (Manual) 14, Monocytes % (Manual) 4, Eosinophils % (Manual) 1, Platelet Estimate Normal, RBC Morphology Normal, Sodium 133 L, Potassium 3.5 D, Chloride 94 L, Carbon Dioxide 40 H, Anion Gap 2.5 L, BUN 28 H, Creatinine 1.20, Estimated Creat Clear 90, Estimated GFR 60, Est GFR ( Amer) 72, Glucose 165 H D, Calcium 8.2 L, Magnesium 2.2, Total Bilirubin 0.8, AST 27, ALT 20, Alkaline Phosphatase 250 H, Total Protein 7.0, Albumin 3.2 L, Globulin 3.8 H, Albumin/Globulin Ratio 0.8 L 08/20/24 06:09: POC Glucose 152 H 08/20/24 11:19: POC Glucose 250 H I & O for Last 24 hours: Intake & Output 08/17/24 08/18/24 08/19/24 08/20/24 23:59 23:59 23:59 23:59 Intake Total 100 / 690 677.167 / 677.167 Output Total 750 / 750 775 / 775 Balance -650 / -60 -97.833 / -97.833 Weight 245 lb 5 oz 245 lb 4.122 oz Microbiology Reports for the Last 24 Hours: Microbiology 08/19/24 06:15 Blood Blood Culture - Preliminary NO GROWTH AFTER 24 HOURS 08/19/24 06:20 Blood Blood Culture - Preliminary NO GROWTH AFTER 24 HOURS Constitutional Constitutional: no acute distress and cooperative *Routine HEENT Exam Eye: Present PERRL *Routine Respiratory Exam Respiratory: Present CTA bilaterally; Absent accessory muscle use, wheezes or crackles *Routine Cardiovascular Exam Cardiovascular: Present RRR, Normal S1 and Normal S2; Absent murmur, gallop or rubs *Routine Abdominal Exam Abdominal: Present soft; Absent tenderness *Routine Extremities Exam Extremities: Present pulses intact; Absent cyanosis or edema Comments: severe BLE skin changes with erythema and numerous excoriations *Routine Skin Exam Skin: Present intact; Absent erythema or wounds *Routine Neurological Exam Neurological: Present alert and oriented X3 Routine Psychiatric Exam Psychiatric: Present cooperative Meds Home Medications and Allergies Home Medications ?Medication ?Instructions ?Recorded ?Confirmed ?Type finasteride 5 mg tablet 5 mg PO DAILY 11/13/18 08/20/24 History metoprolol tartrate 100 mg tablet 100 mg PO BID 11/13/18 08/20/24 History aspirin 81 mg tablet,delayed 81 mg PO DAILY 08/02/19 08/20/24 History release gabapentin 300 mg capsule 1,200 mg PO HS 08/02/19 08/20/24 History tamsulosin 0.4 mg capsule 0.4 mg PO HS 01/06/20 08/20/24 History methocarbamol 750 mg tablet 750 mg PO Q6HP PRN Muscle Spasm 11/26/20 08/20/24 History pantoprazole 40 mg tablet,delayed 40 mg PO BID 11/26/20 08/20/24 History release cholecalciferol (vitamin D3) 25 25 mcg PO DAILY 12/30/20 08/20/24 History mcg (1,000 unit) capsule ascorbic acid (vitamin C) 500 mg 500 mg PO DAILY 09/16/23 08/20/24 History capsule ferrous sulfate 325 mg (65 mg 325 mg PO DAILY 09/16/23 08/20/24 History iron) tablet (Iron (ferrous sulfate)) venlafaxine 150 mg 150 mg PO DAILY 09/16/23 08/20/24 History capsule,extended release 24 hr (Effexor XR) bictegravir 50 mg-emtricitabine 1 each PO DAILY 30 days #30 tabs 03/18/24 08/20/24 Rx 200 mg-tenofovir alafenam 25 mg tablet tiotropium 2.5 mcg-olodaterol 2.5 2 puff inhalation DAILY 07/26/24 08/20/24 History mcg/actuation mist for inhalation (Stiolto Respimat) Bifidobacterium infantis 10.5 mg 10.5 mg PO DAILY 08/19/24 08/20/24 History (10 million cell) chewable tablet (Align) bumetanide 2 mg tablet 2 mg PO BID 08/19/24 08/19/24 History tramadol 50 mg tablet 100 mg PO Q6HP PRN Moderate Pain 08/19/24 08/20/24 History (Scale Score 5-6) albuterol sulfate 90 mcg/actuation 1 inh inhalation QIDP PRN 08/20/24 08/20/24 History aerosol inhaler Shortness Of Breath sitagliptin 100 mg tablet 100 mg PO DAILY 08/20/24 08/20/24 History New Prescriptions to Start Prescriptions: Allergies Allergy/AdvReac Type Severity Reaction Status Date / Time SANDRA Inhibitors Allergy Unknown Unknown Verified 08/12/24 13:49 allergy reaction clofibrate Allergy Unknown Unknown Verified 08/12/24 13:49 allergy reaction enalapril Allergy Unknown Unknown Verified 08/12/24 13:49 allergy reaction erythromycin base Allergy Unknown Unknown Verified 08/12/24 13:49 allergy reaction gemfibrozil Allergy Unknown Unknown Verified 08/12/24 13:49 allergy reaction hepatitis A virus vaccine Allergy Unknown Unknown Verified 08/12/24 13:49 allergy reaction hydralazine Allergy Unknown Unknown Verified 08/12/24 13:49 allergy reaction Macrolide Antibiotics Allergy Unknown Unknown Verified 08/12/24 13:49 allergy reaction pravastatin (From Pravachol) Allergy Unknown Unknown Verified 08/12/24 13:49 allergy reaction Qbrpiim-RPL-XiH Reductase Allergy Unknown Unknown Verified 08/12/24 13:49 Inhibitor (Fxjiocq-Url-Gdu allergy Reductase Inhibitor) reaction Assessment and Plan *Assessment and plan (1) Acute respiratory failure with hypoxia and hypercarbia: Status: Acute Category: Medical Code(s): J96.01 - Acute respiratory failure with hypoxia; J96.02 - Acute respiratory failure with hypercapnia (2) Acute on chronic heart failure with preserved ejection fraction (HFpEF): Status: Acute Category: Medical Code(s): I50.33 - Acute on chronic diastolic (congestive) heart failure (3) HIV disease: Status: Chronic Category: Medical Code(s): B20 - Human immunodeficiency virus [HIV] disease (4) Atrial fibrillation with rapid ventricular response: Status: Acute Category: Medical Code(s): I48.91 - Unspecified atrial fibrillation Plan A-fib RVR - new dx this admission in setting of heart failure - now rate controlled - will check 2D ECHO - cont home dose metoprolol - change Lovenox to Eliquis 5mg BID - consider LUCRECIA/DCCV tomorrow if not improved - will need 2 week monitor at discharge Acute on Chronic HFpEF - Hfpef noted on chart but pt denies this history - here he had resp failure and proBNP 5k - no edema noted on CXR - check 2D ECHO Acute on Chronic Hypercarbic Resp Failure - plans per pulm Obesity, BMI 33 - pt would benefit from aggressive weight loss via diet/exercise
--- NOTE | 2024-08-20 12:25 | SW/DCPLANNER ---
Spoke with Karson on the phone to let her know that patient will be discharging tomorrow and she stated that all she will need is the DC summary. Lyndsay Husain
[2024-08-20] MEDS: TRAMADOL 50MG TABLET 50 MG PO (13:00)
--- NOTE | 2024-08-20 13:14 | PC.NURSE ---
Notified Mayra Schroeder that pt continues to sustain 130s HR. Diltiazem gtt @ 15 mg.
[2024-08-20 14:10] LABS: % CD3 Positive Lymphs 50.7 % (57.5-86.2); % CD4 Positive Lymphs 17.5 % (30.8-58.5); % CD8 Positive Lymphs 32.9 % (12.0-35.5); Abs. Basophils 0.1 x10E3/uL (0.0-0.2); Abs. Immature Granulocytes 0.1 x10E3/uL (0.0-0.1); Abs. Lymphocytes 1.8 x10E3/uL (0.7-3.1); Abs. Monocytes 0.8 x10E3/uL (0.1-0.9); Abs. Neutrophil 8.7 x10E3/uL (1.4-7.0); Abs.CD19+Lymphs 36 /uL (12-645); Absolute CD3 913 /uL (622-2402); Absolute CD4 helper 315 /uL (359-1519); CD4/CD8 Ratio 0.53 (0.92-3.72); Eosinophils 0 % (Not Estab.); HCT 44.8 % (37.5-51.0); HGB 14.2 g/dL (13.0-17.7); Immature Granulocytes 1 % (Not Estab.); Lymphocytes 15 % (Not Estab.); MCH 27.3 pg (26.6-33.0); MCHC 31.7 g/dL (31.5-35.7); MCV 86 fL (79-97); Monocytes 7 % (Not Estab.); Neutrophils 76 % (Not Estab.); Platelets 254 x10E3/uL (150-450); RDW 14.3 % (11.6-15.4); WBC 11.4 x10E3/uL (3.4-10.8)
[2024-08-20] MEDS: dilTIAZem 30MG TABLET 30 MG PO ×2 (15:52→23:27)
[2024-08-20 16:34] LABS: Vancomycin,Trough 17.3 ug/mL (5.0-10.0)
[2024-08-20 17:38] LABS: POC Glucose,Bedside 216 (70-110)
[2024-08-20 20:33] LABS: POC Glucose,Bedside 201 (70-110)
[2024-08-20] MEDS: TAMSULOSIN 0.4MG CAPSULE 0.4 MG PO (20:54)
[2024-08-20] MEDS: APIXABAN 5MG TABLET 5 MG PO (20:54)
[2024-08-20] MEDS: GABAPENTIN 300MG CAPSULE 600 MG PO (20:54)
[2024-08-20] MEDS: SODIUM PHOS/BIPHOSPHATE FLEET 133ML ENEMA 133 ML RC (20:55)
[2024-08-20 22:33] LABS: Vancomycin,Peak 36.3 ug/ml (11-39)
[2024-08-21] VITALS (19 sets, daily range): BP systolic 98–165; BP diastolic 61–82; PULSE 75–133; RESP 16–24; TEMP 36.4–36.8; O2SAT 3–99; BMI 33.7; BMI 33.4
[2024-08-21] MEDS: CEFTRIAXONE SODIUM 1 GM in 0.9 % SODIUM CHLORIDE 50 ML IV ×2 (00:38→20:06)
[2024-08-21] MEDS: dilTIAZem HCL 100 MG in 0.9 % SODIUM CHLORIDE 100 ML 15 MG IV ×4 (01:04→20:52)
--- NOTE | 2024-08-21 04:23 | EXP.EVENT.NO ---
Patient O2 saturation dropping into the 60s overnight. Will place patient on BiPAP. Patient uses BiPAP normally at home prior to hospitalization
--- NOTE | 2024-08-21 04:43 | XR_ITS ---
PROCEDURE INFORMATION: Exam: XR Abdomen Exam date and time: 08/21/2024 4:52 AM Age: 69 years old Clinical indication: Other: Ileus vs. Sbo; Abdominal pain; Additional info: Evaluate for ileus versus small bowel obstruction TECHNIQUE: Imaging protocol: Radiologic exam of the abdomen. Views: Frontal supine view of the abdomen. 1 View. COMPARISON: CT ABDOMEN PELVIS WO CON 07/26/2024 11:06 AM FINDINGS: Gastrointestinal tract: Normal. No bowel dilation. Bones/joints: Unremarkable. IMPRESSION: No acute findings.
--- NOTE | 2024-08-21 04:44 | EXP.EVENT.NO ---
Patient with abdominal distention after bowel movement. Worried about possible small bowel obstruction secondary to hernia. Will order KUB to evaluate. Will also order lactic acid.
--- NOTE | 2024-08-21 04:47 | PC.NURSE ---
pt was given an enema earlier in shift for constipation. Pt had a large bm shortly after. After getting the pt to the bed nurse noticed a moderately sized protrusion on pts LLQ. When asked about it pt states he usually has the protrusions bilaterally but now the left one was slightly bigger. pt stated it did not hurt and pt did not feel a popping sensation during the bm. Education was given about notifying the nurse if any pain was to occur. Nurse then monitored the pt and protrusion closely throughout the shift. Around 0420 pt called out c/o mild-moderate pain in the protrusion area, nurse assessed. Pain on palpation was noticed along with slightly more swelling. MD was called and a stat KUB was placed.
[2024-08-21] MEDS: IPRATROPIUM/ALBUTEROL 3 ML NEB IH ×3 (05:11→18:26)
[2024-08-21 06:11] LABS: Chloride 96 mmol/L (98-107)
[2024-08-21 06:12] LABS: Potassium 3.1 mmoL/L (3.5-5.1); Sodium 133 mmol/L (136-145)
[2024-08-21 06:14] LABS: Anion Gap 1.1 mEq/L (5-15); Blood Urea Nitrogen 23 mg/dl (9-20); Carbon Dioxide 39 mmol/L (22.0-30.0); Creatinine Clearance Estimated 110 mL/min (50-200); Estimated Glomerular Filt Rate 74 ml/min (>60); GFR (African American) 89 ML/MIN (>60); Lactic Acid 0.9 mmol/L (0.7-2.1)
[2024-08-21 06:15] LABS: Alanine Aminotransferase 13 U/L (12-78); Albumin/Globulin Ratio 0.9 (1.1-1.8); Alkaline Phosphatase 207 U/L (38-126); Aspartate Amino Transferase 32 U/L (17-59); Calcium 7.9 mg/dl (8.4-10.2); Globulin 3.4 g/dL (1.3-3.2); Glucose 147 mg/dl (74-100); Hematocrit 40.5 % (42.0-52.0); Hemoglobin 12.7 g/dL (14.1-18.0); Magnesium 1.9 mg/dl (1.6-2.3); Mean Corpuscular HGB Conc 31.4 g/dL (31.8-35.4); Mean Corpuscular Hemoglobin 26.7 pg (27.0-31.2); Mean Corpuscular Volume 85.3 fl (80-94); Platelet Count 227 K/mm3 (142-424); Red Blood Count 4.75 M/mm3 (4.60-6.20); Total Protein,Serum 6.4 g/dl (6.3-8.2); White Blood Count 10.7 K/mm3 (4.8-10.8)
[2024-08-21 06:16] LABS: Basophils # 0.1 K/mm3 (0-0.2); Basophils % 0.7 % (0.1-2.0); Eosinophils # 0.1 K/mm3 (0.0-0.4); Eosinophils % 1.3 % (0.1-12.0); Lymphocytes # 1.5 K/mm3 (0.7-4.5); Lymphocytes % 13.7 % (10-50); Mean Platelet Volume 9.6 fl (7.4-10.4); Monocytes # 0.9 K/mm3 (0.1-1.0); Monocytes % 8.2 % (1.7-9.3); Neutrophils # 8.1 K/mm3 (1.8-7.8); Neutrophils % 75.6 % (37.0-80.0)
[2024-08-21 06:27] LABS: POC Glucose,Bedside 133 (70-110)
--- NOTE | 2024-08-21 06:46 | CT_ITS ---
FINAL REPORT TECHNIQUE: Noncontrast CT exam of the abdomen and pelvis. Coronal and sagittal reconstructions were obtained and reviewed. This study was performed with techniques to keep radiation doses as low as reasonably achievable (ALARA). Individualized dose reduction techniques using automated exposure control or adjustment of mA and/or kV according to the patient''s size were employed. CLINICAL HISTORY: ?incarcerated hernia causing mesenteric ischemia COMPARISON: 07/26/2024 FINDINGS: There is a significant amount of extravasated contrast noted within the right upper extremity. Abdomen: There are small bilateral pleural effusions, greater on the left. There is a tiny amount of excreted contrast within the renal collecting system which could obscure small stones. However, no obstructive changes are seen. The remaining solid organs are unremarkable. The gallbladder is distended with stones measuring up to 5.5 cm in short axis. There is no evidence of bowel obstruction or bowel wall thickening. No free air is seen. Pelvis: The appendix is not visualized. There is a lipoma within the left lateral lower quadrant abdominal wall measuring 17.8 x 11.2 x 5.9 cm. The hematoma is seen within the subcutaneous left lower quadrant abdominal wall just deep to the skin surface measuring 8.4 x 5.3 x 8.3 cm. IMPRESSION: No evidence of bowel obstruction or bowel wall thickening. Distended gallbladder with gallstones, acute cholecystitis not excluded. Acute hematoma left lower quadrant abdominal wall. Nonvisualized appendix. No abdominal wall hernia or obvious internal hernia. Reviewed, Interpreted and Dictated by Emilee Hoffman MD Transcribed by Columba Coulter Authenticated and [facility]
--- NOTE | 2024-08-21 07:02 | PC.NURSE ---
PLACED PATIENT ON CPAP DUE TO SPO2 DROPPING WHEN SLEEPING. PATIENT WAS GOING APNEIC SO SWITCHED TO BIPAP.
--- NOTE | 2024-08-21 07:09 | EXP.SURG.CON ---
History of Present Illness *Admission Date: 08/19/24 *Reason for visit:: Possible incarcerated lower abdominal wall hernias *History of present illness: This is a 69-year-old gentleman seen in consultation from the primary service for evaluation concerning possible acute incarcerated lower abdominal wall hernias. This morning he had acute onset left lower quadrant/groin pain. Overlying palpable firmness with subcutaneous hematoma noted. Please see HPI forwarded from admission H&P below. Forwarded from admission H&P: Mr. Love is a 69-year-old male with a extensive past medical history including HIV, CAD, chronic oxygen therapy, hypertension, diastolic heart failure, poorly controlled diabetes, recent falls with stent at nursing facility within the past 4 months. He presented today due to increased confusion and shortness of breath. To be in hypercapnic respiratory failure with concern for pneumonia and CHF exacerbation. Patient altered on arrival. Initiated on BiPAP due to CO2 of 70 on VBG. Pulmonology consulted to assist with management. Medicine consulted for admission. Unable to obtain history from patient upon arrival to the floor due to altered mental status. Patient also noted to be in A-fib with RVR. This is a new diagnosis. Continue to monitor on telemetry. Will wean BiPAP if blood gas improves. Has had some changes to his pain medication over the past day or 2. Concern for polypharmacy and oversedation. Of note fell approximately 3 weeks ago with rib fracture sustained on his left side. Having more pain due to this. [facility] Disclaimer: The information contained in this section may have been updated after the patient was seen, as this information can be updated by other users. Medical History Pneumonia Pleural effusion, bilateral Acute respiratory failure with hypoxia and hypercarbia Closed fracture of neck of left humerus GI bleed due to NSAIDs Morbid obesity with BMI of 45.0-49.9, adult Hypertension Chronic venous stasis dermatitis of both lower extremities HIV (human immunodeficiency virus infection) Diabetes mellitus, type 2 Family History Other No significant family history Social History Smoking Status: Unknown if ever smoked second hand exposure: No alcohol intake: never substance use type: denies use current occupational status: retired Travel in the last 8 weeks: None household members: spouse and family housing: house current occupational exposures/hazards: No caffeine: Yes Have you lived/traveled outside [place] in past 30 days?: No Contact w/someone who lives/traveled outside [place] past 30 days?: No Exposure to someone with infectious disease in past 14 days?: No Do you have a fever (greater than 100.4 F or 38 C)?: No Have you tested positive for COVID-19: No Exposed to someone with COVID-19 in past 14 days?: No Do you have a sore throat?: No Do you have a cough?: No Do you have any weakness?: No Do you have any diarrhea?: No Are you experiencing any unusual bleeding?: No Do you have any muscle aches/pain?: No Do you have any abdominal pain?: No Are you experiencing loss of taste or smell?: No Review of Systems Constitutional Constitutional: Denies weakness Eyes Eyes: Denies loss of vision ENT Ears, Nose, Mouth, and Throat: Denies vertigo *Cardiovascular Cardiovascular: Denies syncope *Neurologic Neurologic: Denies loss of vision, Denies syncope, Denies vertigo and Denies weakness Meds Home Medications and Allergies Home Medications ?Medication ?Instructions ?Recorded ?Confirmed ?Type finasteride 5 mg tablet 5 mg PO DAILY 11/13/18 08/20/24 History metoprolol tartrate 100 mg tablet 100 mg PO BID 11/13/18 08/20/24 History aspirin 81 mg tablet,delayed 81 mg PO DAILY 08/02/19 08/20/24 History release gabapentin 300 mg capsule 1,200 mg PO HS 08/02/19 08/20/24 History tamsulosin 0.4 mg capsule 0.4 mg PO HS 01/06/20 08/20/24 History methocarbamol 750 mg tablet 750 mg PO Q6HP PRN Muscle Spasm 11/26/20 08/20/24 History pantoprazole 40 mg tablet,delayed 40 mg PO BID 11/26/20 08/20/24 History release cholecalciferol (vitamin D3) 25 25 mcg PO DAILY 12/30/20 08/20/24 History mcg (1,000 unit) capsule ascorbic acid (vitamin C) 500 mg 500 mg PO DAILY 09/16/23 08/20/24 History capsule ferrous sulfate 325 mg (65 mg 325 mg PO DAILY 09/16/23 08/20/24 History iron) tablet (Iron (ferrous sulfate)) venlafaxine 150 mg 150 mg PO DAILY 09/16/23 08/20/24 History capsule,extended release 24 hr (Effexor XR) bictegravir 50 mg-emtricitabine 1 each PO DAILY 30 days #30 tabs 03/18/24 08/20/24 Rx 200 mg-tenofovir alafenam 25 mg tablet tiotropium 2.5 mcg-olodaterol 2.5 2 puff inhalation DAILY 07/26/24 08/20/24 History mcg/actuation mist for inhalation (Stiolto Respimat) Bifidobacterium infantis 10.5 mg 10.5 mg PO DAILY 08/19/24 08/20/24 History (10 million cell) chewable tablet (Align) bumetanide 2 mg tablet 2 mg PO BID 08/19/24 08/19/24 History tramadol 50 mg tablet 100 mg PO Q6HP PRN Moderate Pain 08/19/24 08/20/24 History (Scale Score 5-6) albuterol sulfate 90 mcg/actuation 1 inh inhalation QIDP PRN 08/20/24 08/20/24 History aerosol inhaler Shortness Of Breath sitagliptin 100 mg tablet 100 mg PO DAILY 08/20/24 08/20/24 History New Prescriptions to Start Prescriptions: Allergies Allergy/AdvReac Type Severity Reaction Status Date / Time SANDRA Inhibitors Allergy Unknown Unknown Verified 08/12/24 13:49 allergy reaction clofibrate Allergy Unknown Unknown Verified 08/12/24 13:49 allergy reaction enalapril Allergy Unknown Unknown Verified 08/12/24 13:49 allergy reaction erythromycin base Allergy Unknown Unknown Verified 08/12/24 13:49 allergy reaction gemfibrozil Allergy Unknown Unknown Verified 08/12/24 13:49 allergy reaction hepatitis A virus vaccine Allergy Unknown Unknown Verified 08/12/24 13:49 allergy reaction hydralazine Allergy Unknown Unknown Verified 08/12/24 13:49 allergy reaction Macrolide Antibiotics Allergy Unknown Unknown Verified 08/12/24 13:49 allergy reaction pravastatin (From Pravachol) Allergy Unknown Unknown Verified 08/12/24 13:49 allergy reaction Ikatnkr-JXN-ZhZ Reductase Allergy Unknown Unknown Verified 08/12/24 13:49 Inhibitor (Deuqwkw-Rvb-Lft allergy Reductase Inhibitor) reaction Exam (Inpt) Vital signs and Labs for Last 24 Hours: Temp Pulse Resp BP Pulse Ox O2 Del Method O2 Flow Rate 98.2 F 130 H 24 98/62 L 98 CPAP 2 08/21/24 00:00 08/21/24 06:00 08/21/24 04:00 08/21/24 06:00 08/21/24 06:00 08/21/24 06:53 08/21/24 06:00 FiO2 28 08/21/24 06:20 Laboratory Results - last 24 hr 08/19/24 07:00: WBC 11.4 H, RBC 5.20, Hgb 14.2, Hct 44.8, MCV 86, MCH 27.3, MCHC 31.7, RDW 14.3, Plt Count 254, Abs Immat Gran (auto) 0.1, Absolute Lymphs (auto) 1.8, Absolute Monos (auto) 0.8, Absolute Eos (auto) 0.0, Absolute Basos (auto) 0.1, Immature Gran % 1, Neutrophils % 76, Lymphocytes % 15, Monocytes % 7, Eosinophils % 0, Basophils % 1, Nucleated RBC % TNP, Absolute Neutrophils 8.7 H, Absolute CD3 Count 913, % CD3+ Lymphocytes 50.7 L, % CD4 [place] 17.5 L, Absolute CD4 [place] 315 L, CD4/CD8 Ratio 0.53 L, % CD8 Suppressor 32.9, Absolute CD8 Count 592, % CD19+ Lymphocyte 2.0 L, Absolute CD19+ Lymph 36 08/20/24 05:37: WBC 18.3 H D, RBC 5.07, Hgb 13.6 L, Hct 44.0, MCV 86.8, MCH 26.8 L, MCHC 30.9 L, RDW 14.6, Plt Count 264, MPV 9.9, Neut % (Auto) 81.8 H, Lymph % (Auto) 9.2 L, [place] % (Auto) 8.0, Eos % (Auto) 0.4, Baso % (Auto) 0.3, Neut # (Auto) 15.0 H, Lymph # (Auto) 1.7, [place] # (Auto) 1.5 H, Eos # (Auto) 0.1, Baso # (Auto) 0.1, Total Counted 100, Neutrophils % (Manual) 81 H, Lymphocytes % (Manual) 14, Monocytes % (Manual) 4, Eosinophils % (Manual) 1, Platelet Estimate Normal, RBC Morphology Normal 08/20/24 11:19: POC Glucose 250 H 08/20/24 16:00: Vancomycin Trough 17.3 H 08/20/24 16:55: POC Glucose 216 H 08/20/24 20:26: POC Glucose 201 H 08/20/24 21:40: Vancomycin Peak 36.3 08/21/24 05:23: WBC 10.7 D, RBC 4.75, Hgb 12.7 L, Hct 40.5 L, MCV 85.3, MCH 26.7 L, MCHC 31.4 L, RDW 15.0, Plt Count 227, MPV 9.6, Neut % (Auto) 75.6, Lymph % (Auto) 13.7, [place] % (Auto) 8.2, Eos % (Auto) 1.3, Baso % (Auto) 0.7, Neut # (Auto) 8.1 H, Lymph # (Auto) 1.5, [place] # (Auto) 0.9, Eos # (Auto) 0.1, Baso # (Auto) 0.1, Sodium 133 L, Potassium 3.1 L, Chloride 96 L, Carbon Dioxide 39 H, Anion Gap 1.1 L, BUN 23 H, Creatinine 1.00, Estimated Creat Clear 110, Estimated GFR 74, Est GFR ( Amer) 89 D, Glucose 147 H, Lactate 0.9, Calcium 7.9 L, Magnesium 1.9 D, Total Bilirubin 1.0, AST 32, ALT 13 D, Alkaline Phosphatase 207 H, Total Protein 6.4, Albumin 3.0 L, Globulin 3.4 H, Albumin/Globulin Ratio 0.9 L 08/21/24 06:20: POC Glucose 133 H I & O for Labs for Last 24 Hours: Intake & Output 08/18/24 08/19/24 08/20/24 08/21/24 11:59 11:59 11:59 11:59 Intake Total 1137.167 / 1137.167 825.5 / 825.5 Output Total 1525 / 1525 3075 / 3075 Balance -387.833 / -387.833 -2249.5 / -2249.5 Weight 270 lb 245 lb 4.122 oz 249 lb Microbiology Reports for the Last 24 Hours: Microbiology 08/19/24 06:20 Blood Blood Culture - Preliminary NO GROWTH AFTER 48 HOURS 08/19/24 06:15 Blood Blood Culture - Preliminary NO GROWTH AFTER 24 HOURS Constitutional: obese Comments:: Bilateral lower quadrant swelling/firmness (pannus margin). Significant swelling with overlying hematoma noted along left lower quadrant/groin pannus margin. Severe tenderness to palpation. Results Labs 08/21/24 05:23 08/21/24 05:23 Labs: Laboratory Results - last 24 hr 08/19/24 07:00: WBC 11.4 H, RBC 5.20, Hgb 14.2, Hct 44.8, MCV 86, MCH 27.3, MCHC 31.7, RDW 14.3, Plt Count 254, Abs Immat Gran (auto) 0.1, Absolute Lymphs (auto) 1.8, Absolute Monos (auto) 0.8, Absolute Eos (auto) 0.0, Absolute Basos (auto) 0.1, Immature Gran % 1, Neutrophils % 76, Lymphocytes % 15, Monocytes % 7, Eosinophils % 0, Basophils % 1, Nucleated RBC % TNP, Absolute Neutrophils 8.7 H, Absolute CD3 Count 913, % CD3+ Lymphocytes 50.7 L, % CD4 [place] 17.5 L, Absolute CD4 [place] 315 L, CD4/CD8 Ratio 0.53 L, % CD8 Suppressor 32.9, Absolute CD8 Count 592, % CD19+ Lymphocyte 2.0 L, Absolute CD19+ Lymph 36 08/20/24 05:37: WBC 18.3 H D, RBC 5.07, Hgb 13.6 L, Hct 44.0, MCV 86.8, MCH 26.8 L, MCHC 30.9 L, RDW 14.6, Plt Count 264, MPV 9.9, Neut % (Auto) 81.8 H, Lymph % (Auto) 9.2 L, [place] % (Auto) 8.0, Eos % (Auto) 0.4, Baso % (Auto) 0.3, Neut # (Auto) 15.0 H, Lymph # (Auto) 1.7, [place] # (Auto) 1.5 H, Eos # (Auto) 0.1, Baso # (Auto) 0.1, Total Counted 100, Neutrophils % (Manual) 81 H, Lymphocytes % (Manual) 14, Monocytes % (Manual) 4, Eosinophils % (Manual) 1, Platelet Estimate Normal, RBC Morphology Normal 08/20/24 11:19: POC Glucose 250 H 08/20/24 16:00: Vancomycin Trough 17.3 H 08/20/24 16:55: POC Glucose 216 H 08/20/24 20:26: POC Glucose 201 H 08/20/24 21:40: Vancomycin Peak 36.3 08/21/24 05:23: WBC 10.7 D, RBC 4.75, Hgb 12.7 L, Hct 40.5 L, MCV 85.3, MCH 26.7 L, MCHC 31.4 L, RDW 15.0, Plt Count 227, MPV 9.6, Neut % (Auto) 75.6, Lymph % (Auto) 13.7, [place] % (Auto) 8.2, Eos % (Auto) 1.3, Baso % (Auto) 0.7, Neut # (Auto) 8.1 H, Lymph # (Auto) 1.5, [place] # (Auto) 0.9, Eos # (Auto) 0.1, Baso # (Auto) 0.1, Sodium 133 L, Potassium 3.1 L, Chloride 96 L, Carbon Dioxide 39 H, Anion Gap 1.1 L, BUN 23 H, Creatinine 1.00, Estimated Creat Clear 110, Estimated GFR 74, Est GFR ( Amer) 89 D, Glucose 147 H, Lactate 0.9, Calcium 7.9 L, Magnesium 1.9 D, Total Bilirubin 1.0, AST 32, ALT 13 D, Alkaline Phosphatase 207 H, Total Protein 6.4, Albumin 3.0 L, Globulin 3.4 H, Albumin/Globulin Ratio 0.9 L 08/21/24 06:20: POC Glucose 133 H Assessment and Plan *Assessment and plan (1) Hematoma: Problem Comment: Left lower abdominal wall hematoma (pannus margin). Adequate exam not possible secondary to severe tenderness; therefore, underlying herniation cannot be ruled out with certainty. Status: Acute Category: Medical Code(s): T14.8XXA - Other injury of unspecified body region, initial encounter Plan: Emergent CT scan (pending) If the patient has or develops factors/diagnosis requiring surgical intervention he will require emergent transfer to tertiary center secondary to his acute on chronic comorbid conditions. Addendum: CT scan reveals pannicular hematoma with no evidence of herniation. Continue management as per primary service
[2024-08-21] MEDS: SODIUM CHLORIDE 0.9% 10ML FLUSH SYRINGE 10 ML IV (07:36)
[2024-08-21] MEDS: IOPAMIDOL-370 (76%);100ML BOTTLE 80 ML IV (07:36)
[2024-08-21] MEDS: 0.9 % SODIUM CHLORIDE 50 ML VIAL IV (07:36)
[2024-08-21] MEDS: KCl 10mEq/100ml 100 ML 100 MEQ IV ×8 (09:42→17:35)
--- NOTE | 2024-08-21 09:46 | P.PN_ITS ---
Subjective *Date: 08/21/24 *Time: 12:42 Interval history: Worsening oxygen requirements overnight needed noninvasive ventilator therapy. Pulmonology Exam Inpatient Vital signs and Labs for Last 24 Hours: Temp Pulse Resp BP Pulse Ox O2 Del Method O2 Flow Rate 97.6 F 130 H 24 98/62 L 98 Nasal Cannula 2 08/21/24 08:00 08/21/24 06:00 08/21/24 04:00 08/21/24 06:00 08/21/24 06:00 08/21/24 07:45 08/21/24 07:45 FiO2 28 08/21/24 09:44 Laboratory Results - last 24 hr 08/19/24 07:00: WBC 11.4 H, RBC 5.20, Hgb 14.2, Hct 44.8, MCV 86, MCH 27.3, MCHC 31.7, RDW 14.3, Plt Count 254, Abs Immat Gran (auto) 0.1, Absolute Lymphs (auto) 1.8, Absolute Monos (auto) 0.8, Absolute Eos (auto) 0.0, Absolute Basos (auto) 0.1, Immature Gran % 1, Neutrophils % 76, Lymphocytes % 15, Monocytes % 7, Eosinophils % 0, Basophils % 1, Nucleated RBC % TNP, Absolute Neutrophils 8.7 H, Absolute CD3 Count 913, % CD3+ Lymphocytes 50.7 L, % CD4 [place] 17.5 L, Absolute CD4 [place] 315 L, CD4/CD8 Ratio 0.53 L, % CD8 Suppressor 32.9, Absolute CD8 Count 592, % CD19+ Lymphocyte 2.0 L, Absolute CD19+ Lymph 36 08/20/24 05:37: Total Counted 100, Neutrophils % (Manual) 81 H, Lymphocytes % (Manual) 14, Monocytes % (Manual) 4, Eosinophils % (Manual) 1, Platelet Estimate Normal, RBC Morphology Normal 08/20/24 11:19: POC Glucose 250 H 08/20/24 16:00: Vancomycin Trough 17.3 H 08/20/24 16:55: POC Glucose 216 H 08/20/24 20:26: POC Glucose 201 H 08/20/24 21:40: Vancomycin Peak 36.3 08/21/24 05:23: WBC 10.7 D, RBC 4.75, Hgb 12.7 L, Hct 40.5 L, MCV 85.3, MCH 26.7 L, MCHC 31.4 L, RDW 15.0, Plt Count 227, MPV 9.6, Neut % (Auto) 75.6, Lymph % (Auto) 13.7, [place] % (Auto) 8.2, Eos % (Auto) 1.3, Baso % (Auto) 0.7, Neut # (Auto) 8.1 H, Lymph # (Auto) 1.5, [place] # (Auto) 0.9, Eos # (Auto) 0.1, Baso # (Auto) 0.1, Sodium 133 L, Potassium 3.1 L, Chloride 96 L, Carbon Dioxide 39 H, Anion Gap 1.1 L, BUN 23 H, Creatinine 1.00, Estimated Creat Clear 110, Estimated GFR 74, Est GFR ( Amer) 89 D, Glucose 147 H, Lactate 0.9, Calcium 7.9 L, Magnesium 1.9 D, Total Bilirubin 1.0, AST 32, ALT 13 D, Alkaline Phosphatase 207 H, Total Protein 6.4, Albumin 3.0 L, Globulin 3.4 H, Albumin/Globulin Ratio 0.9 L 08/21/24 06:20: POC Glucose 133 H Temp Pulse Resp BP Pulse Ox O2 Del Method O2 Flow Rate 100.2 F H 96 H 20 129/75 98 BiPAP 8 08/19/24 05:59 08/19/24 09:30 08/19/24 09:30 08/19/24 09:30 08/19/24 09:30 08/19/24 08:30 08/19/24 06:30 FiO2 50 08/19/24 06:15 Laboratory Results - last 24 hr 08/19/24 06:14: WBC 11.9 H, RBC 5.56, Hgb 15.0, Hct 49.5, MCV 89.0, MCH 27.0, MCHC 30.3 L, RDW 15.4, Plt Count 235, MPV 7.2 L, Neut % (Auto) 83.0 H, Lymph % (Auto) 9.7 L, [place] % (Auto) 6.1, Eos % (Auto) 0.4, Baso % (Auto) 0.8, Neut # (Auto) 9.8 H, Lymph # (Auto) 1.2, [place] # (Auto) 0.7, Eos # (Auto) 0.1, Baso # (Auto) 0.1, Sodium 131 L, Potassium 4.5, Chloride 91 L, Carbon Dioxide 37 H, Anion Gap 7.5, BUN 24 H, Creatinine 1.20, Estimated Creat Clear 99, Estimated GFR 60, Est GFR ( Amer) 72, Glucose 314 H, Calcium 8.4, Total Bilirubin 1.0, AST 32, ALT 23, Alkaline Phosphatase 312 H, NT-Pro-B Natriuret Pep 5140 H, Total Protein 7.1, Albumin 3.4 L, Globulin 3.7 H, Albumin/Globulin Ratio 0.9 L, TSH 2.22, Acetone Level None detected 08/19/24 06:20: VBG pH 7.26 L, VBG pCO2 70.9 H, VBG pO2 50.5 H, VBG HCO3 31.3 H, VBG Total CO2 33.5 H, VBG O2 Saturation 83.2 H, VBG Base Excess 4.3 H, VBG Lactic Acid 2.9 H 08/19/24 08:02: VBG pH 7.36, VBG pCO2 63.7 H, VBG pO2 145.4 H, VBG HCO3 34.9 H, VBG Total CO2 36.8 H, VBG O2 Saturation 99.2 H, VBG Base Excess 9.3 H, VBG Lactic Acid 2.2 H I & O for Labs for Last 24 Hours: Intake & Output 08/18/24 08/19/24 08/20/24 08/21/24 23:59 23:59 23:59 23:59 Intake Total 100 / 690 1547.167 / 1697.167 315.5 / 315.5 Output Total 750 / 750 2200 / 2750 1650 / 1650 Balance -650 / -60 -652.833 / -1052.833 -1334.5 / -1334.5 Weight 245 lb 5 oz 245 lb 4.122 oz 249 lb Intake & Output 08/16/24 08/17/24 08/18/24 08/19/24 23:59 23:59 23:59 23:59 Weight 270 lb Microbiology Reports for the Last 24 Hours: Microbiology 08/19/24 06:15 Blood Blood Culture - Preliminary NO GROWTH AFTER 48 HOURS 08/19/24 06:20 Blood Blood Culture - Preliminary NO GROWTH AFTER 48 HOURS Constitutional: Present severe distress Head: Present normocephalic and atraumatic ENT: Present normal exam, normal oropharynx and mucous membranes moist Neck: Present normal inspection and full ROM Respiratory: Present respiratory distress, wheezes, crackles, diminished air movement and able to speak in complete sentences Cardiac: Present S1/S2, Tachycardia and radial pulses present GI: Present soft and distention; Absent tenderness or guarding Skin: Present intact; Absent cyanosis or jaundice Neuro: Present alert and awake; Absent oriented x 3 Extremities: Present normal inspection; Absent clubbing or cyanosis Psychiatric: Present normal affect and cooperative Assessment and Plan *Assessment and plan (1) Acute respiratory failure with hypoxia and hypercarbia: Status: Acute Category: Medical Code(s): J96.01 - Acute respiratory failure with hypoxia; J96.02 - Acute respiratory failure with hypercapnia (2) Pleural effusion, bilateral: Status: Acute Category: Medical Code(s): J90 - Pleural effusion, not elsewhere classified (3) Pneumonia: Status: Acute Category: Medical Code(s): J18.9 - Pneumonia, unspecified organism Plan Mr. Love is a 77-year-old male with reported history of HIV CAD chronic hypoxic respiratory failure hypertension diastolic heart failure visiting [facility]dc presented to the ER status post fall found to be needing increasing oxygen requirements and pulmonary was called for further evaluation and management. No significant smoking history. Carries a diagnosis disseminated histoplasmosis around 1989. Had a baseline diagnosis of COPD using Stiolto inhaler. Also using oxygen supplementation at 2 L. Low-grade fever. Mild neutrophilic predominant leukocytosis. Hypercarbic respiratory failure upon admission with a pH of 7.26 and pCO2 70.9. Improving to recent pH of 7.36 with a pCO2 of 63.7. pO2 at 145.4. CT chest July 2024 also showed bilateral effusions left greater than right. No dense consolidative changes noted on the CT scan Chest x-ray upon admission bilateral patchy airspace disease and effusions. Blood cultures no growth so far. CD4 cell count at 315. Improving leukocytosis. Antibiotics weaned to ceftriaxone and azithromycin. Interval update: Initiate NIV overnight for hypoxia and possible apnea. High risk for sleep apnea. Will monitor. Patient this morning on BiPAP, lethargic than yesterday. Will continue to monitor his mentation. Patient family states that usually is his normal during the mornings while he still asleep. Will follow. Plan: Continue nasal oxygen supplementation to maintain O2 saturation goal of 90% and DuoNebs every 6 hours on a scheduled basis Continue ceftriaxone and azithromycin from pulmonary standpoint to complete a total of 5-day course. # Thank you for involving pulmonary in this patient care. Will continue to follow.
[2024-08-21] MEDS: PANTOPRAZOLE 40MG TABLET 40 MG PO ×2 (10:31→20:05)
[2024-08-21] MEDS: dilTIAZem 30MG TABLET 30 MG PO ×2 (10:31→16:31)
[2024-08-21] MEDS: METOPROLOL TARTRATE 50MG TABLET 100 MG PO ×2 (10:31→20:05)
[2024-08-21] MEDS: EMPAGLIFLOZIN 10MG TABLET 10 MG PO (10:32)
[2024-08-21] MEDS: FINASTERIDE 5MG TABLET 5 MG PO (10:32)
[2024-08-21] MEDS: BUMETANIDE 1MG/4ML VIAL 2 MG IV ×2 (10:32→16:32)
[2024-08-21] MEDS: BIKTARVY 1 EACH PO (10:32)
--- NOTE | 2024-08-21 11:23 | EXP.CARD.PN ---
Subjective Subjective Date: 08/21/24 Time: 10:00 Interval history: Transferred to OR overnight due to abdominal pain with LLQ hematoma and AMS. Pt is sleeping w/CPAP. HR remains 130s this morning. LLQ tenderness otherwise no complaints. Exam Data for Last 24 hours Vital signs and Labs for Last 24 Hours: Temp Pulse Resp BP Pulse Ox O2 Del Method O2 Flow Rate 97.6 F 130 H 24 98/62 L 98 Nasal Cannula 2.5 08/21/24 08:00 08/21/24 06:00 08/21/24 04:00 08/21/24 06:00 08/21/24 06:00 08/21/24 11:00 08/21/24 11:00 FiO2 28 08/21/24 09:44 Laboratory Results - last 24 hr 08/19/24 07:00: WBC 11.4 H, RBC 5.20, Hgb 14.2, Hct 44.8, MCV 86, MCH 27.3, MCHC 31.7, RDW 14.3, Plt Count 254, Abs Immat Gran (auto) 0.1, Absolute Lymphs (auto) 1.8, Absolute Monos (auto) 0.8, Absolute Eos (auto) 0.0, Absolute Basos (auto) 0.1, Immature Gran % 1, Neutrophils % 76, Lymphocytes % 15, Monocytes % 7, Eosinophils % 0, Basophils % 1, Nucleated RBC % TNP, Absolute Neutrophils 8.7 H, Absolute CD3 Count 913, % CD3+ Lymphocytes 50.7 L, % CD4 [place] 17.5 L, Absolute CD4 [place] 315 L, CD4/CD8 Ratio 0.53 L, % CD8 Suppressor 32.9, Absolute CD8 Count 592, % CD19+ Lymphocyte 2.0 L, Absolute CD19+ Lymph 36 08/20/24 11:19: POC Glucose 250 H 08/20/24 16:00: Vancomycin Trough 17.3 H 08/20/24 16:55: POC Glucose 216 H 08/20/24 20:26: POC Glucose 201 H 08/20/24 21:40: Vancomycin Peak 36.3 08/21/24 05:23: WBC 10.7 D, RBC 4.75, Hgb 12.7 L, Hct 40.5 L, MCV 85.3, MCH 26.7 L, MCHC 31.4 L, RDW 15.0, Plt Count 227, MPV 9.6, Neut % (Auto) 75.6, Lymph % (Auto) 13.7, [place] % (Auto) 8.2, Eos % (Auto) 1.3, Baso % (Auto) 0.7, Neut # (Auto) 8.1 H, Lymph # (Auto) 1.5, [place] # (Auto) 0.9, Eos # (Auto) 0.1, Baso # (Auto) 0.1, Sodium 133 L, Potassium 3.1 L, Chloride 96 L, Carbon Dioxide 39 H, Anion Gap 1.1 L, BUN 23 H, Creatinine 1.00, Estimated Creat Clear 110, Estimated GFR 74, Est GFR ( Amer) 89 D, Glucose 147 H, Lactate 0.9, Calcium 7.9 L, Magnesium 1.9 D, Total Bilirubin 1.0, AST 32, ALT 13 D, Alkaline Phosphatase 207 H, Total Protein 6.4, Albumin 3.0 L, Globulin 3.4 H, Albumin/Globulin Ratio 0.9 L 08/21/24 06:20: POC Glucose 133 H I & O for Last 24 hours: Intake & Output 08/18/24 08/19/24 08/20/24 08/21/24 23:59 23:59 23:59 23:59 Intake Total 100 / 690 1547.167 / 1697.167 384.75 / 384.75 Output Total 750 / 750 2200 / 2750 1650 / 1650 Balance -650 / -60 -652.833 / -1052.833 -1265.25 / -1265.25 Weight 245 lb 5 oz 245 lb 4.122 oz 249 lb Microbiology Reports for the Last 24 Hours: Microbiology 08/19/24 15:16 Urine,Clean Catch Urine Culture - Final Multiple organisms, suggests contamination. 08/21/24 00:09 Sputum - Expectorated Sputum Gram Stain - Final 08/19/24 06:15 Blood Blood Culture - Preliminary NO GROWTH AFTER 48 HOURS 08/19/24 06:20 Blood Blood Culture - Preliminary NO GROWTH AFTER 48 HOURS Constitutional Constitutional: no acute distress and cooperative *Routine HEENT Exam Eye: Present PERRL *Routine Respiratory Exam Respiratory: Present CTA bilaterally; Absent accessory muscle use, wheezes or crackles *Routine Cardiovascular Exam Cardiovascular: Present Normal S1, Normal S2 and tachycardia; Absent murmur, gallop or rubs *Routine Abdominal Exam Abdominal: Present soft and tenderness Comments: LLQ tenderness and bruising. Hernias LLQ, RLQ *Routine Extremities Exam Extremities: Present pulses intact; Absent cyanosis or edema *Routine Skin Exam Skin: Present intact; Absent erythema or wounds *Routine Neurological Exam Neurological: Present alert and oriented X3 Routine Psychiatric Exam Psychiatric: Present cooperative Progress Note: A&P Assessment and plan (1) Hematoma: Problem details: Left lower abdominal wall hematoma (pannus margin). Adequate exam not possible secondary to severe tenderness; therefore, underlying herniation cannot be ruled out with certainty. Status: Acute (2) Atrial fibrillation with rapid ventricular response: Status: Acute (3) Acute respiratory failure with hypoxia and hypercarbia: Status: Acute (4) AMS (altered mental status): Status: Acute Assessment and Plan Assessment and Plan for All Diagnoses:: A-fib RVR - new dx this admission in setting of heart failure - now rate controlled - will check 2D ECHO - cont home dose metoprolol - change Lovenox to Eliquis 5mg BID - consider LUCRECIA/DCCV tomorrow if not improved - will need 2 week monitor at discharge 08/21: Pt maintaining regular tachy at 130s, likely flutter. Cont Metoprolol and Cardizem, add Digoxin 250mcg IV q6h x3 then 150mcg PO tomorrow. Avoiding DCCV right now as OAC on hold due to 8cm LLQ hematoma. Acute on Chronic HFpEF - Hfpef noted on chart but pt denies this history - here he had resp failure and proBNP 5k - no edema noted on CXR - check 2D ECHO 08/21: ECHO Pending Acute on Chronic Hypercarbic Resp Failure - plans per pulm 08/21: Resp status improving. LLQ Pain and Hematoma - 17cm lipoma and 8cm hematoma per CT - Hospitalist called [facility] surg who recommended conservative treatment and avoid OAC Obesity, BMI 33 - pt would benefit from aggressive weight loss via diet/exercise
[2024-08-21] MEDS: humaLOG 100 UNITS/ML 10ML VIAL (SSI) SUBCUT ×3 (11:51→20:54)
[2024-08-21] MEDS: DIGOXIN 0.25MG/ML 2ML AMPUL 250 MCG IV ×2 (11:53→16:31)
[2024-08-21 11:55] LABS: POC Glucose,Bedside 170 (70-110)
[2024-08-21 17:00] LABS: POC Glucose,Bedside 184 (70-110)
[2024-08-21] MEDS: TRAMADOL 50MG TABLET 50 MG PO (17:28)
[2024-08-21] MEDS: GABAPENTIN 300MG CAPSULE 600 MG PO (20:05)
[2024-08-21] MEDS: APIXABAN 5MG TABLET 5 MG PO (20:05)
[2024-08-21] MEDS: TAMSULOSIN 0.4MG CAPSULE 0.4 MG PO (20:05)
[2024-08-21 20:27] LABS: POC Glucose,Bedside 278 (70-110)
--- NOTE | 2024-08-21 21:54 | EXP.PN ---
Subjective *Date: 08/21/24 *Time: 21:54 Exam Data for Last 24 hours Vital signs and Labs for Last 24 Hours: Temp Pulse Resp BP Pulse Ox O2 Del Method O2 Flow Rate 98.0 F 133 H 18 118/68 96 Nasal Cannula 3 08/21/24 20:00 08/21/24 20:00 08/21/24 20:00 08/21/24 20:00 08/21/24 20:00 08/21/24 21:00 08/21/24 21:00 FiO2 28 08/21/24 09:44 Laboratory Results - last 24 hr 08/20/24 21:40: Vancomycin Peak 36.3 08/21/24 05:23: WBC 10.7 D, RBC 4.75, Hgb 12.7 L, Hct 40.5 L, MCV 85.3, MCH 26.7 L, MCHC 31.4 L, RDW 15.0, Plt Count 227, MPV 9.6, Neut % (Auto) 75.6, Lymph % (Auto) 13.7, [place] % (Auto) 8.2, Eos % (Auto) 1.3, Baso % (Auto) 0.7, Neut # (Auto) 8.1 H, Lymph # (Auto) 1.5, [place] # (Auto) 0.9, Eos # (Auto) 0.1, Baso # (Auto) 0.1, Sodium 133 L, Potassium 3.1 L, Chloride 96 L, Carbon Dioxide 39 H, Anion Gap 1.1 L, BUN 23 H, Creatinine 1.00, Estimated Creat Clear 110, Estimated GFR 74, Est GFR ( Amer) 89 D, Glucose 147 H, Lactate 0.9, Calcium 7.9 L, Magnesium 1.9 D, Total Bilirubin 1.0, AST 32, ALT 13 D, Alkaline Phosphatase 207 H, Total Protein 6.4, Albumin 3.0 L, Globulin 3.4 H, Albumin/Globulin Ratio 0.9 L 08/21/24 06:20: POC Glucose 133 H 08/21/24 11:42: POC Glucose 170 H 08/21/24 16:24: POC Glucose 184 H 08/21/24 20:09: POC Glucose 278 H I & O for Last 24 hours: Intake & Output 08/18/24 08/19/24 08/20/24 08/21/24 23:59 23:59 23:59 23:59 Intake Total 100 / 690 1547.167 / 1424.413 2917.417 / 1842.417 Output Total 750 / 750 2200 / 2750 5550 / 5550 Balance -650 / -60 -652.833 / -1052.833 -3707.583 / -3707.583 Weight 111.272 kg 111.247 kg 112 kg Microbiology Reports for the Last 24 Hours: Microbiology 08/19/24 15:16 Urine,Clean Catch Urine Culture - Final Multiple organisms, suggests contamination. 08/21/24 00:09 Sputum - Expectorated Sputum Gram Stain - Final 08/19/24 06:15 Blood Blood Culture - Preliminary NO GROWTH AFTER 48 HOURS 08/19/24 06:20 Blood Blood Culture - Preliminary NO GROWTH AFTER 48 HOURS Assessment and Plan *Assessment and plan (1) Sepsis due to pneumonia: Status: Acute Category: Medical Code(s): J18.9 - Pneumonia, unspecified organism; A41.9 - Sepsis, unspecified organism (2) Atrial fibrillation with rapid ventricular response: Status: Acute Category: Medical Code(s): I48.91 - Unspecified atrial fibrillation (3) Pneumonia: Status: Acute Category: Medical Code(s): J18.9 - Pneumonia, unspecified organism (4) Acute respiratory failure with hypoxia and hypercarbia: Status: Acute Category: Medical Code(s): J96.01 - Acute respiratory failure with hypoxia; J96.02 - Acute respiratory failure with hypercapnia (5) AMS (altered mental status): Status: Acute Category: Medical Code(s): R41.82 - Altered mental status, unspecified (6) Acute exacerbation of CHF (congestive heart failure): Status: Acute Category: Medical Code(s): I50.9 - Heart failure, unspecified (7) Pleural effusion, bilateral: Status: Acute Category: Medical Code(s): J90 - Pleural effusion, not elsewhere classified (8) Fall: Status: Resolved Qualifiers: Encounter type: initial encounter Qualified Code(s): W19.XXXA - Unspecified fall, initial encounter Category: Medical Code(s): W19.XXXA - Unspecified fall, initial encounter (9) Multiple closed fractures of ribs of left side: Status: Acute Qualifiers: Encounter type: initial encounter Qualified Code(s): S22.42XA - Multiple fractures of ribs, left side, initial encounter for closed fracture Category: Medical Code(s): S22.42XA - Multiple fractures of ribs, left side, initial encounter for closed fracture (10) Acute on chronic heart failure with preserved ejection fraction (HFpEF): Status: Acute Category: Medical Code(s): I50.33 - Acute on chronic diastolic (congestive) heart failure (11) Diabetes type 2, uncontrolled: Status: Acute Qualifiers: Glycemic state: with hyperglycemia Qualified Code(s): E11.65 - Type 2 diabetes mellitus with hyperglycemia Category: Medical Code(s): E11.65 - Type 2 diabetes mellitus with hyperglycemia (12) COPD (chronic obstructive pulmonary disease): Status: Acute Qualifiers: COPD type: unspecified COPD Qualified Code(s): J44.9 - Chronic obstructive pulmonary disease, unspecified Category: Medical Code(s): J44.9 - Chronic obstructive pulmonary disease, unspecified (13) Venous stasis ulcers of both lower extremities: Status: Chronic Category: Medical Code(s): I83.019 - Varicose veins of right lower extremity with ulcer of unspecified site; I83.029 - Varicose veins of left lower extremity with ulcer of unspecified site; L97.919 - Non-pressure chronic ulcer of unspecified part of right lower leg with unspecified severity; L97.929 - Non-pressure chronic ulcer of unspecified part of left lower leg with unspecified severity (14) HIV disease: Status: Chronic Category: Medical Code(s): B20 - Human immunodeficiency virus [HIV] disease (15) Obesity: Status: Resolved Qualifiers: Body mass index: BMI 45.0-49.9 Obesity classification: adult class 3 (BMI >= 40) Obesity type: due to excess calories Serious obesity comorbidity presence: with serious comorbidity Qualified Code(s): E66.01 - Morbid (severe) obesity due to excess calories; Z68.42 - Body mass index (BMI) 45.0-49.9, adult Category: Medical Code(s): E66.9 - Obesity, unspecified Plan 69-year-old male with multiple chronic medical conditions including poorly controlled type 2 diabetes, HIV, CHF, COPD, ABEL, recent rib fractures. Presented to the ER due to confusion and shortness of breath. Patient found to be hypercapnic with encephalopathy and pneumonia. Discussed case with ER physician, request admission for further management with BiPAP and antibiotics. I agreed to admit for further treatment. Initial blood gas with hypercapnia and respiratory acidosis. Improved mentation. Back to baseline today. Slowly reintroduce some of his home medications for pain at decreased doses. High risk for polypharmacy. Currently in A-fib with RVR on diltiazem drip. Continues to necessitate inpatient management. Problems addressed as follows: Sepsis with pneumonia Acute hypercapnic respiratory failure on chronic hypoxemic respiratory failure Pneumonia Recent rib fractures - Hypercarbia resolved with BiPAP nightly. On baseline 2 L oxygen now. Showing improvement. - Discussed case with pulmonology, transition to ceftriaxone. Continue DuoNebs every 6 hours scheduled - WBC improved to 10.7 - Continue ceftriaxone 1 g daily. Will hold on azithromycin due to allergy to macrolides Exacerbation of heart failure with preserved ejection fraction A-fib RVR resolved -Reviewed patient's chart, echo from 2019 with grade 1 diastolic dysfunction. BNP elevated around 400. Effusions on chest CT per my review. -BNP elevated at 5100, Bumex once in the ER. Continue Bumex 2 mg IV twice daily -On chronic oxygen, 2 L. Does not know why he is on it other than his O2 sats have been low and he was told to start it. Suspect secondary to heart failure. -Continue metoprolol tartrate 100 mg twice daily -Continue diltiazem drip. Initiate short acting diltiazem 30 mg every 8 hours. Will attempt to capture heart rate. -Cardiology avoiding cardioversion which would required NOAC, but risky given abdominal subcutaenous hematoma. - Started Digoxin loading tonight, with transition to PO in the morning. Rate improved to 70-80s. - Eliquis discontinued as below. #Chronic subcutaenous hematoma - There is overlying bruising today and had pain around 4am today. CT abdomen showed chronic hematoma which has likely increased in size due to Eliquis. - Consulted [facility] and general sugery, recommended conservative management with abdominal binder at this time. - Discontinue Eliquis. #UTI - Urine grossly abnormal. Urine culture suggests multiple organisms. Will discontinue ceftriaxone. Uncontrolled insulin-dependent diabetes: -A1c last month 7.3. Continue sliding scale insulin with fingersticks ACHS -Resume gabapentin at decreased dose of 600 mg nightly. -Continue empagliflozin 12.5 mg daily BPH: Continue finasteride 5 mg daily, tamsulosin 0.4 mg nightly Lower extremity wounds/stasis dermatitis : Numerous wounds, no signs of infection at this time. Nursing to bandage History of HIV: Continue Biktarvy daily per home regimen; CD4 count pending Obesity complicates all aspects of his care Venlafaxine 150 mg daily for mood, on hold at this time Pantoprazole 40 mg daily for GERD PT and OT to evaluated, recommend home health Lovenox 1 mg/kg twice daily, therapeutic Full code Diabetic diet
[2024-08-22] VITALS (18 sets, daily range): BP systolic 112–149; BP diastolic 65–83; PULSE 61–108; RESP 18–27; TEMP 36.4–36.9; O2SAT 93–100; BMI 33.3
[2024-08-22] MEDS: IPRATROPIUM/ALBUTEROL 3 ML NEB IH ×3 (00:17→11:54)
[2024-08-22] MEDS: humaLOG 100 UNITS/ML 10ML VIAL (SSI) SUBCUT ×4 (06:13→21:31)
[2024-08-22 06:15] LABS: Chloride 97 mmol/L (98-107)
[2024-08-22 06:16] LABS: Potassium 3.5 mmoL/L (3.5-5.1); Sodium 135 mmol/L (136-145)
[2024-08-22 06:16] LABS: POC Glucose,Bedside 181 (70-110)
[2024-08-22] MEDS: dilTIAZem 30MG TABLET 30 MG PO (06:16)
[2024-08-22 06:18] LABS: Alanine Aminotransferase 14 U/L (12-78); Albumin/Globulin Ratio 0.8 (1.1-1.8); Aspartate Amino Transferase 30 U/L (17-59); Blood Urea Nitrogen 18 mg/dl (9-20); Creatinine Clearance Estimated 109 mL/min (50-200); Estimated Glomerular Filt Rate 74 ml/min (>60); GFR (African American) 89 ML/MIN (>60); Globulin 3.6 g/dL (1.3-3.2); Total Protein,Serum 6.6 g/dl (6.3-8.2)
[2024-08-22 06:19] LABS: Alkaline Phosphatase 211 U/L (38-126); Basophils % 0.5 % (0.1-2.0); Bilirubin,Total 0.9 mg/dl (0.2-1.3); Calcium 8.2 mg/dl (8.4-10.2); Eosinophils # 0.2 K/mm3 (0.0-0.4); Glucose 147 mg/dl (74-100); Hematocrit 42.6 % (42.0-52.0); Hemoglobin 13.4 g/dL (14.1-18.0); Lymphocytes # 1.3 K/mm3 (0.7-4.5); Lymphocytes % 13.8 % (10-50); Magnesium 2.2 mg/dl (1.6-2.3); Mean Corpuscular HGB Conc 31.5 g/dL (31.8-35.4); Mean Corpuscular Volume 85.9 fl (80-94); Mean Platelet Volume 9.3 fl (7.4-10.4); Monocytes # 0.9 K/mm3 (0.1-1.0); Monocytes % 9.5 % (1.7-9.3); Neutrophils # 6.8 K/mm3 (1.8-7.8); Neutrophils % 73.9 % (37.0-80.0); Platelet Count 215 K/mm3 (142-424); Red Blood Count 4.96 M/mm3 (4.60-6.20); Red Cell Distribution Width 15.4 % (11.5-17.5); White Blood Count 9.2 K/mm3 (4.8-10.8)
[2024-08-22 06:20] LABS: Basophils # 0.1 K/mm3 (0-0.2)
[2024-08-22 06:25] LABS: Anion Gap 3.5 mEq/L (5-15); Carbon Dioxide 38 mmol/L (22.0-30.0)
[2024-08-22] MEDS: POTASSIUM CHLORIDE 20MEQ TAB 40 MEQ PO ×2 (07:18→12:09)
--- NOTE | 2024-08-22 09:14 | ECG_ITS ---
APPROVED REPORT Exam: Resting ECG HR:103 bpm ECG Measurements Heart Rate 103 AXES QRSd 141 QRS 5 QT 376 T -3 QTc 436 Conclusion ATRIAL FIBRILLATION WITH RAPID VENTRICULAR RESPONSE RIGHT BUNDLE BRANCH BLOCK [120+ ms QRS DURATION, UPRIGHT V1, 40+ ms S IN I/aVL/V4/V5/V6] ABNORMAL ECG UNCONFIRMED REPORT Electronically signed by : Sabas Johnston MD 08/24/2024 09:12:54
[2024-08-22] MEDS: TRAMADOL 50MG TABLET 50 MG PO (09:40)
--- NOTE | 2024-08-22 09:57 | EXP.PULM.PN ---
Subjective *Date: 08/22/24 *Time: 12:52 Interval history: No acute respiratory vents overnight. Patient denies any new complaints. Pulmonology Exam Inpatient Vital signs and Labs for Last 24 Hours: Temp Pulse Resp BP Pulse Ox O2 Del Method O2 Flow Rate 98.0 F 97 H 25 H 131/80 97 Nasal Cannula 3 08/22/24 08:00 08/22/24 08:00 08/22/24 08:00 08/22/24 08:00 08/22/24 08:00 08/22/24 08:00 08/22/24 08:00 FiO2 28 08/21/24 09:44 Laboratory Results - last 24 hr 08/21/24 11:42: POC Glucose 170 H 08/21/24 16:24: POC Glucose 184 H 08/21/24 20:09: POC Glucose 278 H 08/22/24 05:44: WBC 9.2, RBC 4.96, Hgb 13.4 L, Hct 42.6, MCV 85.9, MCH 27.0, MCHC 31.5 L, RDW 15.4, Plt Count 215, MPV 9.3, Neut % (Auto) 73.9, Lymph % (Auto) 13.8, [place] % (Auto) 9.5 H, Eos % (Auto) 2.0, Baso % (Auto) 0.5, Neut # (Auto) 6.8, Lymph # (Auto) 1.3, [place] # (Auto) 0.9, Eos # (Auto) 0.2, Baso # (Auto) 0.1, Sodium 135 L, Potassium 3.5, Chloride 97 L, Carbon Dioxide 38 H, Anion Gap 3.5 L, BUN 18, Creatinine 1.00, Estimated Creat Clear 109, Estimated GFR 74, Est GFR ( Amer) 89, Glucose 147 H, Calcium 8.2 L, Magnesium 2.2 D, Total Bilirubin 0.9, AST 30, ALT 14, Alkaline Phosphatase 211 H, Total Protein 6.6, Albumin 3.0 L, Globulin 3.6 H, Albumin/Globulin Ratio 0.8 L 08/22/24 06:07: POC Glucose 181 H Temp Pulse Resp BP Pulse Ox O2 Del Method O2 Flow Rate 100.2 F H 96 H 20 129/75 98 BiPAP 8 08/19/24 05:59 08/19/24 09:30 08/19/24 09:30 08/19/24 09:30 08/19/24 09:30 08/19/24 08:30 08/19/24 06:30 FiO2 50 08/19/24 06:15 Laboratory Results - last 24 hr 08/19/24 06:14: WBC 11.9 H, RBC 5.56, Hgb 15.0, Hct 49.5, MCV 89.0, MCH 27.0, MCHC 30.3 L, RDW 15.4, Plt Count 235, MPV 7.2 L, Neut % (Auto) 83.0 H, Lymph % (Auto) 9.7 L, [place] % (Auto) 6.1, Eos % (Auto) 0.4, Baso % (Auto) 0.8, Neut # (Auto) 9.8 H, Lymph # (Auto) 1.2, [place] # (Auto) 0.7, Eos # (Auto) 0.1, Baso # (Auto) 0.1, Sodium 131 L, Potassium 4.5, Chloride 91 L, Carbon Dioxide 37 H, Anion Gap 7.5, BUN 24 H, Creatinine 1.20, Estimated Creat Clear 99, Estimated GFR 60, Est GFR ( Amer) 72, Glucose 314 H, Calcium 8.4, Total Bilirubin 1.0, AST 32, ALT 23, Alkaline Phosphatase 312 H, NT-Pro-B Natriuret Pep 5140 H, Total Protein 7.1, Albumin 3.4 L, Globulin 3.7 H, Albumin/Globulin Ratio 0.9 L, TSH 2.22, Acetone Level None detected 08/19/24 06:20: VBG pH 7.26 L, VBG pCO2 70.9 H, VBG pO2 50.5 H, VBG HCO3 31.3 H, VBG Total CO2 33.5 H, VBG O2 Saturation 83.2 H, VBG Base Excess 4.3 H, VBG Lactic Acid 2.9 H 08/19/24 08:02: VBG pH 7.36, VBG pCO2 63.7 H, VBG pO2 145.4 H, VBG HCO3 34.9 H, VBG Total CO2 36.8 H, VBG O2 Saturation 99.2 H, VBG Base Excess 9.3 H, VBG Lactic Acid 2.2 H I & O for Labs for Last 24 Hours: Intake & Output 08/19/24 08/20/24 08/21/24 08/22/24 23:59 23:59 23:59 23:59 Intake Total 100 / 690 1547.167 / 6066.415 7725.834 / 1874.834 540 / 540 Output Total 750 / 750 2200 / 2750 5550 / 6070 520 / 520 Balance -650 / -60 -652.833 / -1052.833 -3675.166 / -4195.166 Weight 245 lb 5 oz 245 lb 4.122 oz 246 lb 14.684 oz 246 lb 1 oz Intake & Output 08/16/24 08/17/24 08/18/24 08/19/24 23:59 23:59 23:59 23:59 Weight 270 lb Microbiology Reports for the Last 24 Hours: Microbiology 08/19/24 15:16 Urine,Clean Catch Urine Culture - Final Multiple organisms, suggests contamination. 08/21/24 00:09 Sputum - Expectorated Sputum Gram Stain - Final 08/19/24 06:15 Blood Blood Culture - Preliminary NO GROWTH AFTER 48 HOURS 08/19/24 06:20 Blood Blood Culture - Preliminary NO GROWTH AFTER 48 HOURS Constitutional: Present severe distress Head: Present normocephalic and atraumatic ENT: Present normal exam, normal oropharynx and mucous membranes moist Neck: Present normal inspection and full ROM Respiratory: Present respiratory distress, wheezes, crackles, diminished air movement and able to speak in complete sentences Cardiac: Present S1/S2, Tachycardia and radial pulses present GI: Present soft and distention; Absent tenderness or guarding Skin: Present intact; Absent cyanosis or jaundice Neuro: Present alert and awake; Absent oriented x 3 Extremities: Present normal inspection; Absent clubbing or cyanosis Psychiatric: Present normal affect and cooperative Assessment and Plan *Assessment and plan (1) Acute respiratory failure with hypoxia and hypercarbia: Status: Acute Category: Medical Code(s): J96.01 - Acute respiratory failure with hypoxia; J96.02 - Acute respiratory failure with hypercapnia (2) Pleural effusion, bilateral: Status: Acute Category: Medical Code(s): J90 - Pleural effusion, not elsewhere classified (3) Pneumonia: Status: Acute Category: Medical Code(s): J18.9 - Pneumonia, unspecified organism Plan Mr. Love is a 77-year-old male with reported history of HIV CAD chronic hypoxic respiratory failure hypertension diastolic heart failure visiting alf presented to the ER status post fall found to be needing increasing oxygen requirements and pulmonary was called for further evaluation and management. No significant smoking history. Carries a diagnosis disseminated histoplasmosis around 1989. Had a baseline diagnosis of COPD using Stiolto inhaler. Also using oxygen supplementation at 2 L. Low-grade fever. Mild neutrophilic predominant leukocytosis. Hypercarbic respiratory failure upon admission with a pH of 7.26 and pCO2 70.9. Improving to recent pH of 7.36 with a pCO2 of 63.7. pO2 at 145.4. CT chest July 2024 also showed bilateral effusions left greater than right. No dense consolidative changes noted on the CT scan Chest x-ray upon admission bilateral patchy airspace disease and effusions. Blood cultures no growth so far. CD4 cell count at 315. Improving leukocytosis. Antibiotics weaned to ceftriaxone and azithromycin. Interval update: No acute respiratory vents overnight. Alert awake and oriented x 3. Stable oxygen requirements. Consult concern for competent sleep apnea/obesity hypomedication was called because of patient noted hypercarbic respiratory failure along with his known COPD. CT abdomen continue to show small bilateral pleural effusions left greater than right and noted that stable on his CT from 07/26/2024 Plan: -Follow-up with daytime ABG today as patient was off NIV overnight. Blood gas on this admission hypercarbic respiratory failure. Continue nasal oxygen supplementation to maintain O2 saturation goal of 90% and Trelegy 100 inhaler Continue ceftriaxone and azithromycin from pulmonary standpoint to complete a total of 5-day course. -Recommend outpatient sleep clinic follow-up # Thank you for involving pulmonary in this patient care.
[2024-08-22] MEDS: FINASTERIDE 5MG TABLET 5 MG PO (10:11)
[2024-08-22] MEDS: PANTOPRAZOLE 40MG TABLET 40 MG PO ×2 (10:11→21:31)
[2024-08-22] MEDS: METOPROLOL TARTRATE 50MG TABLET 100 MG PO ×2 (10:11→21:31)
[2024-08-22] MEDS: EMPAGLIFLOZIN 10MG TABLET 10 MG PO (10:11)
[2024-08-22] MEDS: DIGOXIN 0.125MG TABLET 125 MCG PO (10:11)
[2024-08-22] MEDS: BUMETANIDE 1MG/4ML VIAL 2 MG IV ×2 (10:12→15:54)
[2024-08-22] MEDS: BIKTARVY 1 EACH PO (10:12)
--- NOTE | 2024-08-22 10:40 | EXP.CARD.PN ---
Subjective Subjective Date: 08/22/24 Time: 09:30 Interval history: Dx w/UTI overnight. A/O this morning. Remains in A-fib but rate controlled and off Cardizem. Exam Data for Last 24 hours Vital signs and Labs for Last 24 Hours: Temp Pulse Resp BP Pulse Ox O2 Del Method O2 Flow Rate 98.0 F 102 H 25 H 131/80 97 Nasal Cannula 3 08/22/24 08:00 08/22/24 10:11 08/22/24 08:00 08/22/24 08:00 08/22/24 08:00 08/22/24 08:00 08/22/24 08:00 FiO2 28 08/21/24 09:44 Laboratory Results - last 24 hr 08/21/24 11:42: POC Glucose 170 H 08/21/24 16:24: POC Glucose 184 H 08/21/24 20:09: POC Glucose 278 H 08/22/24 05:44: WBC 9.2, RBC 4.96, Hgb 13.4 L, Hct 42.6, MCV 85.9, MCH 27.0, MCHC 31.5 L, RDW 15.4, Plt Count 215, MPV 9.3, Neut % (Auto) 73.9, Lymph % (Auto) 13.8, [place] % (Auto) 9.5 H, Eos % (Auto) 2.0, Baso % (Auto) 0.5, Neut # (Auto) 6.8, Lymph # (Auto) 1.3, [place] # (Auto) 0.9, Eos # (Auto) 0.2, Baso # (Auto) 0.1, Sodium 135 L, Potassium 3.5, Chloride 97 L, Carbon Dioxide 38 H, Anion Gap 3.5 L, BUN 18, Creatinine 1.00, Estimated Creat Clear 109, Estimated GFR 74, Est GFR ( Amer) 89, Glucose 147 H, Calcium 8.2 L, Magnesium 2.2 D, Total Bilirubin 0.9, AST 30, ALT 14, Alkaline Phosphatase 211 H, Total Protein 6.6, Albumin 3.0 L, Globulin 3.6 H, Albumin/Globulin Ratio 0.8 L 08/22/24 06:07: POC Glucose 181 H I & O for Last 24 hours: Intake & Output 08/19/24 08/20/24 08/21/24 08/22/24 23:59 23:59 23:59 23:59 Intake Total 100 / 690 1547.167 / 4551.657 4870.834 / 1874.834 540 / 540 Output Total 750 / 750 2200 / 2750 5550 / 6070 1070 / 1070 Balance -650 / -60 -652.833 / -1052.833 -3675.166 / -4195.166 -530 / -530 Weight 245 lb 5 oz 245 lb 4.122 oz 246 lb 14.684 oz 246 lb 1 oz Microbiology Reports for the Last 24 Hours: Microbiology 08/21/24 00:09 Sputum - Expectorated Sputum Gram Stain - Final 08/21/24 00:09 Sputum - Expectorated Sputum Sputum Culture - Preliminary 08/19/24 15:16 Urine,Clean Catch Urine Culture - Final Multiple organisms, suggests contamination. 08/19/24 06:15 Blood Blood Culture - Preliminary NO GROWTH AFTER 48 HOURS 08/19/24 06:20 Blood Blood Culture - Preliminary NO GROWTH AFTER 48 HOURS Constitutional Constitutional: no acute distress and cooperative *Routine HEENT Exam Eye: Present PERRL *Routine Respiratory Exam Respiratory: Present CTA bilaterally; Absent accessory muscle use, wheezes or crackles *Routine Cardiovascular Exam Cardiovascular: Present Normal S1, Normal S2 and irregular rhythm; Absent murmur, gallop or rubs *Routine Abdominal Exam Abdominal: Present soft; Absent tenderness *Routine Extremities Exam Extremities: Present pulses intact; Absent cyanosis or edema *Routine Skin Exam Skin: Present intact; Absent erythema or wounds *Routine Neurological Exam Neurological: Present alert and oriented X3 Routine Psychiatric Exam Psychiatric: Present cooperative Progress Note: A&P Assessment and plan (1) Atrial fibrillation with rapid ventricular response: Status: Acute (2) Acute respiratory failure with hypoxia and hypercarbia: Status: Acute (3) Pleural effusion, bilateral: Status: Acute (4) Pneumonia: Status: Acute (5) Hematoma: Problem details: Left lower abdominal wall hematoma (pannus margin). Adequate exam not possible secondary to severe tenderness; therefore, underlying herniation cannot be ruled out with certainty. Status: Acute (6) AMS (altered mental status): Status: Acute Assessment and Plan Assessment and Plan for All Diagnoses:: A-fib RVR - new dx this admission in setting of heart failure - now rate controlled with Metoprolol and Dig - ECHO - Nml Bi-V function - OAC on hold due to hematoma - will need 2 week monitor at discharge Acute on Chronic HFpEF - Hfpef noted on chart but pt denies this history - here he had resp failure and proBNP 5k - no edema noted on CXR - 2D ECHO shows nml BI-V function - monitor vol status Acute on Chronic Hypercarbic Resp Failure - plans per pulm 08/21: Resp status improving. LLQ Pain and Hematoma - 17cm lipoma and 8cm hematoma per CT - Hospitalist called [facility] surg who recommended conservative treatment and avoid OAC UTI - on Ab Obesity, BMI 33 - pt would benefit from aggressive weight loss via diet/exercise CV stable on current meds. Please advise if further concerns this admission. He will need 2 week monitor prior to discharge and an office visit with us 1-2 weeks post discharge.
[2024-08-22] MEDS: dilTIAZem 60MG TABLET 60 MG PO ×2 (14:21→21:33)
[2024-08-22] MEDS: TRAMADOL 50MG TABLET 75 MG PO (15:55)
[2024-08-22 17:11] LABS: POC Glucose,Bedside 311 (70-110)
--- NOTE | 2024-08-22 17:12 | P.PN_ITS ---
Subjective *Date: 08/22/24 *Time: 17:12 Interval history: Patient stable from a respiratory and cardio standpoint. However, continues to have left lower quadrant hematoma pain which seems to have grown slightly overnight as Eliquis was inadvertently not stopped. Will monitor overnight, anticipate discharge in the morning if stable. Exam Data for Last 24 hours Vital signs and Labs for Last 24 Hours: Temp Pulse Resp BP Pulse Ox O2 Del Method O2 Flow Rate 98.0 F 70 20 125/68 97 Nasal Cannula 3 08/22/24 15:56 08/22/24 15:58 08/22/24 15:56 08/22/24 15:56 08/22/24 15:56 08/22/24 15:56 08/22/24 15:56 FiO2 28 08/21/24 09:44 Laboratory Results - last 24 hr 08/21/24 20:09: POC Glucose 278 H 08/22/24 05:44: WBC 9.2, RBC 4.96, Hgb 13.4 L, Hct 42.6, MCV 85.9, MCH 27.0, MCHC 31.5 L, RDW 15.4, Plt Count 215, MPV 9.3, Neut % (Auto) 73.9, Lymph % (Auto) 13.8, [place] % (Auto) 9.5 H, Eos % (Auto) 2.0, Baso % (Auto) 0.5, Neut # (Auto) 6.8, Lymph # (Auto) 1.3, [place] # (Auto) 0.9, Eos # (Auto) 0.2, Baso # (Auto) 0.1, Sodium 135 L, Potassium 3.5, Chloride 97 L, Carbon Dioxide 38 H, Anion Gap 3.5 L, BUN 18, Creatinine 1.00, Estimated Creat Clear 109, Estimated GFR 74, Est GFR ( Amer) 89, Glucose 147 H, Calcium 8.2 L, Magnesium 2.2 D, Total Bilirubin 0.9, AST 30, ALT 14, Alkaline Phosphatase 211 H, Total Protein 6.6, Albumin 3.0 L, Globulin 3.6 H, Albumin/Globulin Ratio 0.8 L 08/22/24 06:07: POC Glucose 181 H 08/22/24 17:04: POC Glucose 311 H* I & O for Last 24 hours: Intake & Output 1208/20/24 08/21/24 08/22/24 23:59 23:59 23:59 23:59 Intake Total 100 / 690 1547.167 / 4578.528 3121.834 / 4665.307 8101 / 1340 Output Total 750 / 750 2200 / 2750 5550 / 6070 2520 / 2520 Balance -650 / -60 -652.833 / -1052.833 -3675.166 / -4195.166 -1180 / -1180 Weight 111.272 kg 111.247 kg 112 kg 111.612 kg Microbiology Reports for the Last 24 Hours: Microbiology 08/21/24 00:09 Sputum - Expectorated Sputum Gram Stain - Final 08/21/24 00:09 Sputum - Expectorated Sputum Sputum Culture - Preliminary Constitutional Constitutional: no acute distress *Routine HEENT Exam Head: Present normocephalic Eye: Present EOMI and PERRL ENT: Present mucous membranes moist *Routine Neck Exam Neck: Present supple; Absent lymphadenopathy *Routine Respiratory Exam Respiratory: Present CTA bilaterally *Routine Cardiovascular Exam Cardiovascular: Present RRR *Routine Abdominal Exam Abdominal: Present soft, normoactive bowel sounds and tenderness Comments: Left lower quadrant abdominal protrusion and pannus with underlying hematoma and overlying bruising. Significant tenderness to palpation. *Routine Extremities Exam Extremities: Absent cyanosis, clubbing or edema *Routine Skin Exam Skin: Present warm; Absent rash *Routine Neurological Exam Neurological: Present alert and oriented X3 Assessment and Plan *Assessment and plan (1) Sepsis due to pneumonia: Status: Acute Category: Medical Code(s): J18.9 - Pneumonia, unspecified organism; A41.9 - Sepsis, unspecified organism (2) Atrial fibrillation with rapid ventricular response: Status: Acute Category: Medical Code(s): I48.91 - Unspecified atrial fibrillation (3) Pneumonia: Status: Acute Category: Medical Code(s): J18.9 - Pneumonia, unspecified organism (4) Acute respiratory failure with hypoxia and hypercarbia: Status: Acute Category: Medical Code(s): J96.01 - Acute respiratory failure with hypoxia; J96.02 - Acute respiratory failure with hypercapnia (5) AMS (altered mental status): Status: Acute Category: Medical Code(s): R41.82 - Altered mental status, unspecified (6) Acute exacerbation of CHF (congestive heart failure): Status: Acute Category: Medical Code(s): I50.9 - Heart failure, unspecified (7) Pleural effusion, bilateral: Status: Acute Category: Medical Code(s): J90 - Pleural effusion, not elsewhere classified (8) Fall: Status: Resolved Qualifiers: Encounter type: initial encounter Qualified Code(s): W19.XXXA - Unspecified fall, initial encounter Category: Medical Code(s): W19.XXXA - Unspecified fall, initial encounter (9) Multiple closed fractures of ribs of left side: Status: Acute Qualifiers: Encounter type: initial encounter Qualified Code(s): S22.42XA - Multiple fractures of ribs, left side, initial encounter for closed fracture Category: Medical Code(s): S22.42XA - Multiple fractures of ribs, left side, initial encounter for closed fracture (10) Acute on chronic heart failure with preserved ejection fraction (HFpEF): Status: Acute Category: Medical Code(s): I50.33 - Acute on chronic diastolic (congestive) heart failure (11) Diabetes type 2, uncontrolled: Status: Acute Qualifiers: Glycemic state: with hyperglycemia Qualified Code(s): E11.65 - Type 2 diabetes mellitus with hyperglycemia Category: Medical Code(s): E11.65 - Type 2 diabetes mellitus with hyperglycemia (12) COPD (chronic obstructive pulmonary disease): Status: Acute Qualifiers: COPD type: unspecified COPD Qualified Code(s): J44.9 - Chronic obstructive pulmonary disease, unspecified Category: Medical Code(s): J44.9 - Chronic obstructive pulmonary disease, unspecified (13) Venous stasis ulcers of both lower extremities: Status: Chronic Category: Medical Code(s): I83.019 - Varicose veins of right lower extremity with ulcer of unspecified site; I83.029 - Varicose veins of left lower extremity with ulcer of unspecified site; L97.919 - Non-pressure chronic ulcer of unspecified part of right lower leg with unspecified severity; L97.929 - Non-pressure chronic ulcer of unspecified part of left lower leg with unspecified severity (14) HIV disease: Status: Chronic Category: Medical Code(s): B20 - Human immunodeficiency virus [HIV] disease (15) Obesity: Status: Resolved Qualifiers: Body mass index: BMI 45.0-49.9 Obesity classification: adult class 3 (BMI >= 40) Obesity type: due to excess calories Serious obesity comorbidity presence: with serious comorbidity Qualified Code(s): E66.01 - Morbid (severe) obesity due to excess calories; Z68.42 - Body mass index (BMI) 45.0-49.9, adult Category: Medical Code(s): E66.9 - Obesity, unspecified Plan 69-year-old male with multiple chronic medical conditions including poorly controlled type 2 diabetes, HIV, CHF, COPD, ABEL, recent rib fractures. Presented to the ER due to confusion and shortness of breath. Patient found to be hypercapnic with encephalopathy and pneumonia. Discussed case with ER physician, request admission for further management with BiPAP and antibiotics. I agreed to admit for further treatment. Initial blood gas with hypercapnia and respiratory acidosis. Improved mentation. Back to baseline today. Slowly reintroduce some of his home medications for pain at decreased doses. High risk for polypharmacy. Currently in A-fib with RVR on diltiazem drip. Continues to necessitate inpatient management. Problems addressed as follows: #Sepsis with pneumonia #Acute hypercapnic respiratory failure on chronic hypoxemic respiratory failure #Pneumonia #Recent rib fractures - Trialed off BiPAP last night, morning ABG was reassuring. Showed no CO2 retention. - Discussed case with pulmonology, transition to ceftriaxone day 4, doxycycline. Patient allergic to azithromycin. Continue DuoNebs every 6 hours scheduled - WBC improved from 10.7-9.2. #Acute on chronic subcutaenous hematoma - CT abdomen showed chronic hematoma which has likely increased in size due to Eliquis. - Consulted [facility] and general sugery, recommended conservative management with abdominal binder at this time. - Discontinued Eliquis. Unfortunately Eliquis was given last night, it was thought to be discontinued. Subcutaneous hematoma seem to have grown slightly today. ? Started abdominal binder, increase tramadol to 75 mg every 6, and started lidocaine patch for pain control. ? Anticipate discharge in the morning once hematoma stable and pain better controlled. Exacerbation of heart failure with preserved ejection fraction A-fib RVR resolved -Reviewed patient's chart, echo from 2019 with grade 1 diastolic dysfunction. BNP elevated around 400. Effusions on chest CT per my review. -BNP elevated at 5100, Bumex once in the ER. Continue Bumex 2 mg IV twice daily -On chronic oxygen, 2 L. Does not know why he is on it other than his O2 sats have been low and he was told to start it. Suspect secondary to heart failure. -Continue metoprolol tartrate 100 mg twice daily. ? Increase diltiazem to 60 mg every 8 hours as patient had RVR after working with physical therapy. ? Continue digoxin 125 mcg. - Cardiology avoiding cardioversion which would require NOAC, which is risky given abdominal subcutaenous hematoma. - Eliquis discontinued as above. Uncontrolled insulin-dependent diabetes: -A1c last month 7.3. Continue sliding scale insulin with fingersticks ACHS -Resume gabapentin at decreased dose of 600 mg nightly. -Continue empagliflozin 12.5 mg daily BPH: Continue finasteride 5 mg daily, tamsulosin 0.4 mg nightly Lower extremity wounds/stasis dermatitis : Numerous wounds, no signs of infection at this time. Nursing to bandage History of HIV: Continue Biktarvy daily per home regimen; CD4 count pending Obesity complicates all aspects of his care Venlafaxine 150 mg daily for mood, on hold at this time Pantoprazole 40 mg daily for GERD PT and OT to evaluated, recommend home health Full code Diabetic diet
[2024-08-22] MEDS: LIDOCAINE 5% TRANSDERMAL PATCH 1 EACH TP (17:13)
[2024-08-22] MEDS: DOXYCYCLINE HYCLATE 100 MG in 0.9 % SODIUM CHLORIDE 250 ML 166.667 MG IV (18:08)
--- NOTE | 2024-08-22 18:42 | PC.NURSE ---
pt has done well since arriving to the floor. remains on 3l nasal cannula and is tolerating well. he had one incontinent bm.
[2024-08-22] MEDS: TAMSULOSIN 0.4MG CAPSULE 0.4 MG PO (21:31)
[2024-08-22] MEDS: GABAPENTIN 300MG CAPSULE 600 MG PO (21:32)
[2024-08-23] VITALS (9 sets, daily range): BP systolic 125–140; BP diastolic 71–73; PULSE 57–80; RESP 18–22; TEMP 36.6–37.1; O2SAT 94–97; BMI 33.6
[2024-08-23] MEDS: FLUTICASONE/UMECLIDIN/VILANTER 100/62.5/25MCG INHALER 1 PUFF IH (06:13)
[2024-08-23] MEDS: dilTIAZem 60MG TABLET 60 MG PO ×2 (06:22→14:02)
[2024-08-23] MEDS: DOXYCYCLINE HYCLATE 100 MG in 0.9 % SODIUM CHLORIDE 250 ML 166.667 MG IV (06:22)
[2024-08-23] MEDS: humaLOG 100 UNITS/ML 10ML VIAL (SSI) SUBCUT ×2 (06:26→11:59)
--- NOTE | 2024-08-23 06:58 | PC.NURSE ---
Alert and oriented. No complaints from patient throughout night. 3L NC, Bipap on and off. No complaints from patient. Uses urinal. Lung sounds diminished. Call light in reach.
[2024-08-23 08:10] LABS: Chloride 97 mmol/L (98-107); Potassium 3.8 mmoL/L (3.5-5.1); Sodium 132 mmol/L (136-145)
[2024-08-23 08:12] LABS: Alanine Aminotransferase 15 U/L (12-78); Aspartate Amino Transferase 27 U/L (17-59); Blood Urea Nitrogen 15 mg/dl (9-20); Creatinine Clearance Estimated 109 mL/min (50-200); Estimated Glomerular Filt Rate 83 ml/min (>60); GFR (African American) 101 ML/MIN (>60)
[2024-08-23 08:13] LABS: Albumin/Globulin Ratio 0.9 (1.1-1.8); Alkaline Phosphatase 217 U/L (38-126); Bilirubin,Total 0.9 mg/dl (0.2-1.3); Calcium 8.1 mg/dl (8.4-10.2); Globulin 3.5 g/dL (1.3-3.2); Glucose 187 mg/dl (74-100); Total Protein,Serum 6.5 g/dl (6.3-8.2)
[2024-08-23 08:14] LABS: Hep B Core Ab, Total Negative (Negative); Hepatitis C Antibody Non Reactive (Non Reactive)
[2024-08-23 08:14] LABS: Hemoglobin 13.1 g/dL (14.1-18.0); Mean Corpuscular HGB Conc 31.2 g/dL (31.8-35.4); Mean Corpuscular Volume 86.4 fl (80-94); Red Blood Count 4.86 M/mm3 (4.60-6.20); Red Cell Distribution Width 15.5 % (11.5-17.5); White Blood Count 10.7 K/mm3 (4.8-10.8)
[2024-08-23 08:15] LABS: Lymphocytes % 11.5 % (10-50); Mean Platelet Volume 9.6 fl (7.4-10.4); Monocytes % 8.6 % (1.7-9.3); Neutrophils % 75.6 % (37.0-80.0); Platelet Count 217 K/mm3 (142-424)
[2024-08-23 08:19] LABS: Basophils % 0.5 % (0.1-2.0); Eosinophils % 3.4 % (0.1-12.0); Lymphocytes # 1.2 K/mm3 (0.7-4.5); Monocytes # 0.9 K/mm3 (0.1-1.0); Neutrophils # 8.1 K/mm3 (1.8-7.8)
[2024-08-23 08:20] LABS: Basophils # 0.1 K/mm3 (0-0.2); Eosinophils # 0.4 K/mm3 (0.0-0.4)
[2024-08-23 08:21] LABS: Anion Gap 3.8 mEq/L (5-15); Carbon Dioxide 35 mmol/L (22.0-30.0)
[2024-08-23] MEDS: FINASTERIDE 5MG TABLET 5 MG PO (09:27)
[2024-08-23] MEDS: EMPAGLIFLOZIN 10MG TABLET 10 MG PO (09:27)
[2024-08-23] MEDS: DIGOXIN 0.125MG TABLET 125 MCG PO (09:28)
[2024-08-23] MEDS: BIKTARVY 1 EACH PO (09:28)
[2024-08-23] MEDS: PANTOPRAZOLE 40MG TABLET 40 MG PO (09:28)
[2024-08-23] MEDS: METOPROLOL TARTRATE 50MG TABLET 100 MG PO (09:29)
[2024-08-23] MEDS: BUMETANIDE 1MG/4ML VIAL 2 MG IV (09:29)
--- NOTE | 2024-08-23 11:19 | PC.NURSE ---
participated well with therapy
--- NOTE | 2024-08-23 11:24 | EXP.DC.SUM ---
General Admission date:: 08/19/24 HPI HPI HPI: This is a 69-year-old gentleman seen in consultation from the primary service for evaluation concerning possible acute incarcerated lower abdominal wall hernias. This morning he had acute onset left lower quadrant/groin pain. Overlying palpable firmness with subcutaneous hematoma noted. Please see HPI forwarded from admission H&P below. Forwarded from admission H&P: Mr. Love is a 69-year-old male with a extensive past medical history including HIV, CAD, chronic oxygen therapy, hypertension, diastolic heart failure, poorly controlled diabetes, recent falls with stent at nursing facility within the past 4 months. He presented today due to increased confusion and shortness of breath. To be in hypercapnic respiratory failure with concern for pneumonia and CHF exacerbation. Patient altered on arrival. Initiated on BiPAP due to CO2 of 70 on VBG. Pulmonology consulted to assist with management. Medicine consulted for admission. Unable to obtain history from patient upon arrival to the floor due to altered mental status. Patient also noted to be in A-fib with RVR. This is a new diagnosis. Continue to monitor on telemetry. Will wean BiPAP if blood gas improves. Has had some changes to his pain medication over the past day or 2. Concern for polypharmacy and oversedation. Of note fell approximately 3 weeks ago with rib fracture sustained on his left side. Having more pain due to this. Hospital Course Hospital Course Hospital Course: 69-year-old male with multiple chronic medical conditions including poorly controlled type 2 diabetes, HIV, CHF, COPD, ABEL, recent rib fractures.? Presented to the ER due to confusion and shortness of breath.? Patient found to be hypercapnic with encephalopathy and pneumonia.? #Sepsis with pneumonia #Acute hypercapnic respiratory failure on chronic hypoxemic respiratory failure #Recent rib fractures #Suspected sleep apnea, obesity hypoventilation syndrome - Clinically improved with BiPAP, ceftriaxone, doxycycline, Duoneb treatments. ? Patient likely has underlying sleep apnea and/or obesity hypoventilation syndrome. Will benefit from outpatient sleep study. ? Pulmonology consulted and assisted with care. ? Leukocytosis improved. Vital signs stable. Medical stable for discharge. ? Will follow up with pulmonology within two weeks. Sleep study will be arranged then. Continue 2L nasal cannula. #Acute on chronic subcutaenous hematoma - CT abdomen showed chronic hematoma which has likely increased in size due to Eliquis that was started for Afib. - Consulted [facility] and general sugery, recommended conservative management with abdominal binder at this time. ? Started abdominal binder though patient is not tolerating it well due to pain from pressure, increase tramadol to 75 mg every 6, and started lidocaine patch for pain control. ? Will need to follow up with general surgery for further evaluation of management. Hgb stable at 13.1. #HFpEF exacerbation #A-fib, new onset #RVR resolved - ECHO reveals low normal LVEF 50%. BNP elevated at 5100 with signs of volume overload. - Improved with IV Bumex diuresis, almost net -7L output. - Cardiology consulted, assisted with care. - Currently rate controlled with below regimen. - Continue metoprolol tartrate 100 mg twice daily. - Started digoxin 125mcg daily, diltiazem 60mg Q8h. - Holding Eliquis in setting on hematoma as above. Will need to follow-up with general surgery and cardiology for definitive treatment. #Type 2 diabetes - A1c last month 7.3, at goal for patient's age.? Given sliding scale insulin with fingersticks ACHS? - Resume gabapentin at decreased dose of 600 mg nightly.? - Resume home diabetes regimen. BPH: Continue finasteride 5 mg daily, tamsulosin 0.4 mg nightly History of HIV: Continue Biktarvy daily per home regimen; CD4 count pending Obesity complicates all aspects of his care Venlafaxine 150 mg daily for mood Pantoprazole 40 mg daily for GERD PT and OT evaluated, recommend home health. Referral placed. Exam Data for Last 24 hours Vital signs and Labs for Last 24 Hours: Temp Pulse Resp BP Pulse Ox O2 Del Method O2 Flow Rate 97.9 F 68 22 125/71 95 Nasal Cannula 3 08/23/24 07:45 08/23/24 09:28 08/23/24 07:45 08/23/24 07:45 08/23/24 07:45 08/23/24 11:00 08/23/24 11:00 FiO2 28 08/23/24 01:20 Laboratory Results - last 24 hr 08/21/24 17:45: Hep B Core Total Ab Negative, Hepatitis C Antibody Non reactive 08/22/24 17:04: POC Glucose 311 H* 08/23/24 07:19: WBC 10.7, RBC 4.86, Hgb 13.1 L, Hct 42.0, MCV 86.4, MCH 27.0, MCHC 31.2 L, RDW 15.5, Plt Count 217, MPV 9.6, Neut % (Auto) 75.6, Lymph % (Auto) 11.5, Dillingham % (Auto) 8.6, Eos % (Auto) 3.4, Baso % (Auto) 0.5, Neut # (Auto) 8.1 H, Lymph # (Auto) 1.2, Dillingham # (Auto) 0.9, Eos # (Auto) 0.4, Baso # (Auto) 0.1, Sodium 132 L, Potassium 3.8, Chloride 97 L, Carbon Dioxide 35 H, Anion Gap 3.8 L, BUN 15, Creatinine 0.90, Estimated Creat Clear 109, Estimated GFR 83, Est GFR ( Amer) 101, Glucose 187 H, Calcium 8.1 L, Magnesium 2.0, Total Bilirubin 0.9, AST 27, ALT 15, Alkaline Phosphatase 217 H, Total Protein 6.5, Albumin 3.0 L, Globulin 3.5 H, Albumin/Globulin Ratio 0.9 L I & O for Last 24 hours: Intake & Output 08/20/24 08/21/24 08/22/24 08/23/24 23:59 23:59 23:59 23:59 Intake Total 1547.167 / 8582.276 9973.834 / 8651.863 0746 / 2720 1330 / 1330 Output Total 2200 / 2750 5550 / 6070 3320 / 3320 1200 / 1200 Balance -652.833 / -1052.833 -3675.166 / -4195.166 -1280 / -600 130 / 130 Weight 111.247 kg 112 kg 111.612 kg 112.582 kg Microbiology Reports for the Last 24 Hours: Microbiology 08/21/24 00:09 Sputum - Expectorated Sputum Gram Stain - Final 08/21/24 00:09 Sputum - Expectorated Sputum Sputum Culture - Preliminary 08/19/24 06:15 Blood Blood Culture - Preliminary NO GROWTH AFTER 4 DAYS 08/19/24 06:20 Blood Blood Culture - Preliminary NO GROWTH AFTER 4 DAYS Constitutional Constitutional: no acute distress *Routine HEENT Exam Head: Present normocephalic Eye: Present EOMI and PERRL ENT: Present mucous membranes moist *Routine Neck Exam Neck: Present supple; Absent lymphadenopathy *Routine Respiratory Exam Respiratory: Present CTA bilaterally *Routine Cardiovascular Exam Cardiovascular: Present RRR *Routine Abdominal Exam Abdominal: Present soft, normoactive bowel sounds and tenderness Comments: Left lower quadrant abdominal protrusion and pannus with underlying hematoma and overlying bruising. tenderness to palpation. *Routine Extremities Exam Extremities: Absent cyanosis, clubbing or edema *Routine Skin Exam Skin: Present warm; Absent rash *Routine Neurological Exam Neurological: Present alert and oriented X3 Results Data Completed and Pending Labs on day of discharge: Labs from last 24 hours 08/23/24 08/22/24 08/21/24 07:19 17:04 17:45 WBC 10.7 RBC 4.86 Hgb 13.1 L Hct 42.0 MCV 86.4 MCH 27.0 MCHC 31.2 L RDW 15.5 Plt Count 217 MPV 9.6 Neut % (Auto) 75.6 Lymph % (Auto) 11.5 Dillingham % (Auto) 8.6 Eos % (Auto) 3.4 Baso % (Auto) 0.5 Neut # (Auto) 8.1 H Lymph # (Auto) 1.2 Dillingham # (Auto) 0.9 Eos # (Auto) 0.4 Baso # (Auto) 0.1 Sodium 132 L Potassium 3.8 Chloride 97 L Carbon Dioxide 35 H Anion Gap 3.8 L BUN 15 Creatinine 0.90 Estimated Creat Clear 109 Estimated GFR 83 Est GFR ( Amer) 101 Glucose 187 H POC Glucose 311 H* Calcium 8.1 L Magnesium 2.0 Total Bilirubin 0.9 AST 27 ALT 15 Alkaline Phosphatase 217 H Total Protein 6.5 Albumin 3.0 L Globulin 3.5 H Albumin/Globulin Ratio 0.9 L Hep B Core Total Ab Negative Hepatitis C Antibody Non reactive Preliminary micro results at discharge 08/21/24 00:09 Sputum Culture - Preliminary Sputum - Expectorated Sputum 08/19/24 06:15 Blood Culture - Preliminary Blood NO GROWTH AFTER 4 DAYS 08/19/24 06:20 Blood Culture - Preliminary Blood NO GROWTH AFTER 4 DAYS DS: Diagnosis Discharge Diagnosis (1) Sepsis due to pneumonia: Status: Acute Code(s): J18.9 - Pneumonia, unspecified organism; A41.9 - Sepsis, unspecified organism (2) Atrial fibrillation with rapid ventricular response: Status: Acute Code(s): I48.91 - Unspecified atrial fibrillation (3) Pneumonia: Status: Acute Code(s): J18.9 - Pneumonia, unspecified organism (4) Acute respiratory failure with hypoxia and hypercarbia: Status: Acute Code(s): J96.01 - Acute respiratory failure with hypoxia; J96.02 - Acute respiratory failure with hypercapnia (5) AMS (altered mental status): Status: Acute Code(s): R41.82 - Altered mental status, unspecified (6) Acute exacerbation of CHF (congestive heart failure): Status: Acute Code(s): I50.9 - Heart failure, unspecified (7) Pleural effusion, bilateral: Status: Acute Code(s): J90 - Pleural effusion, not elsewhere classified (8) Fall: Status: Resolved Code(s): W19.XXXA - Unspecified fall, initial encounter Qualifiers: Encounter type: initial encounter Qualified Code(s): W19.XXXA - Unspecified fall, initial encounter (9) Multiple closed fractures of ribs of left side: Status: Acute Code(s): S22.42XA - Multiple fractures of ribs, left side, initial encounter for closed fracture Qualifiers: Encounter type: initial encounter Qualified Code(s): S22.42XA - Multiple fractures of ribs, left side, initial encounter for closed fracture (10) Acute on chronic heart failure with preserved ejection fraction (HFpEF): Status: Acute Code(s): I50.33 - Acute on chronic diastolic (congestive) heart failure (11) Diabetes type 2, uncontrolled: Status: Acute Code(s): E11.65 - Type 2 diabetes mellitus with hyperglycemia Qualifiers: Glycemic state: with hyperglycemia Qualified Code(s): E11.65 - Type 2 diabetes mellitus with hyperglycemia (12) COPD (chronic obstructive pulmonary disease): Status: Chronic Code(s): J44.9 - Chronic obstructive pulmonary disease, unspecified Qualifiers: COPD type: unspecified COPD Qualified Code(s): J44.9 - Chronic obstructive pulmonary disease, unspecified (13) Venous stasis ulcers of both lower extremities: Status: Chronic Code(s): I83.019 - Varicose veins of right lower extremity with ulcer of unspecified site; I83.029 - Varicose veins of left lower extremity with ulcer of unspecified site; L97.919 - Non-pressure chronic ulcer of unspecified part of right lower leg with unspecified severity; L97.929 - Non-pressure chronic ulcer of unspecified part of left lower leg with unspecified severity (14) HIV disease: Status: Chronic Code(s): B20 - Human immunodeficiency virus [HIV] disease (15) Obesity: Status: Resolved Code(s): E66.9 - Obesity, unspecified Qualifiers: Body mass index: BMI 45.0-49.9 Obesity classification: adult class 3 (BMI >= 40) Obesity type: due to excess calories Serious obesity comorbidity presence: with serious comorbidity Qualified Code(s): E66.01 - Morbid (severe) obesity due to excess calories; Z68.42 - Body mass index (BMI) 45.0-49.9, adult Meds Home Medications and Allergies Home Medications ?Medication ?Instructions ?Recorded ?Confirmed ?Type finasteride 5 mg tablet 5 mg PO DAILY 11/13/18 09/01/24 History metoprolol tartrate 100 mg tablet 100 mg PO BID 11/13/18 09/01/24 History tamsulosin 0.4 mg capsule 0.4 mg PO HS 01/06/20 09/01/24 History methocarbamol 750 mg tablet 750 mg PO Q6HP PRN Muscle Spasm 11/26/20 09/01/24 History cholecalciferol (vitamin D3) 25 25 mcg PO DAILY 12/30/20 09/01/24 History mcg (1,000 unit) capsule ascorbic acid (vitamin C) 500 mg 500 mg PO DAILY 09/16/23 09/01/24 History capsule ferrous sulfate 325 mg (65 mg 325 mg PO DAILY 09/16/23 09/01/24 History iron) tablet (Iron (ferrous sulfate)) venlafaxine 150 mg 150 mg PO DAILY 09/16/23 08/20/24 History capsule,extended release 24 hr (Effexor XR) bictegravir 50 mg-emtricitabine 1 each PO DAILY 30 days #30 tabs 03/18/24 09/01/24 Rx 200 mg-tenofovir alafenam 25 mg tablet tiotropium 2.5 mcg-olodaterol 2.5 2 puff inhalation DAILY 07/26/24 09/01/24 History mcg/actuation mist for inhalation (Stiolto Respimat) Bifidobacterium infantis 10.5 mg 10.5 mg PO DAILY 08/19/24 09/01/24 History (10 million cell) chewable tablet (Align (B.infantis)) bumetanide 2 mg tablet 2 mg PO BID 08/19/24 09/01/24 History tramadol 50 mg tablet 100 mg PO Q6HP PRN Moderate Pain 08/19/24 09/01/24 History (Scale Score 5-6) albuterol sulfate 90 mcg/actuation 1 inh inhalation QIDP PRN 08/20/24 09/01/24 History aerosol inhaler Shortness Of Breath sitagliptin 100 mg tablet 100 mg PO DAILY 08/20/24 09/01/24 History digoxin 125 mcg (0.125 mg) tablet 125 mcg PO DAILY 30 days #30 tabs 08/23/24 09/01/24 Rx diltiazem HCl 60 mg tablet 60 mg PO Q8H 30 days #90 tabs 08/23/24 09/01/24 Rx empagliflozin 10 mg tablet 10 mg PO DAILY 30 days #30 tabs 08/23/24 09/01/24 Rx (Jardiance) gabapentin 300 mg capsule 600 mg (2 x 300 mg) PO HS 30 days 08/23/24 09/01/24 Rx #0 caps pantoprazole 40 mg tablet,delayed 40 mg PO DAILY 30 days #0 tabs 08/23/24 09/01/24 Rx release levofloxacin 750 mg tablet 750 mg PO DAILY #14 tabs 09/01/24 09/01/24 Rx New Prescriptions to Start Prescriptions: Kuldeep Stewart diltiazem HCl Kuldeep Crespo empagliflozin [Jardiance] Kuldeep Crespo Allergies Allergy/AdvReac Type Severity Reaction Status Date / Time SANDRA Inhibitors Allergy Unknown Unknown Verified 09/01/24 14:03 allergy reaction clofibrate Allergy Unknown Unknown Verified 09/01/24 14:03 allergy reaction enalapril Allergy Unknown Unknown Verified 09/01/24 14:03 allergy reaction erythromycin base Allergy Unknown Unknown Verified 09/01/24 14:03 allergy reaction gemfibrozil Allergy Unknown Unknown Verified 09/01/24 14:03 allergy reaction hepatitis A virus vaccine Allergy Unknown Unknown Verified 09/01/24 14:03 allergy reaction hydralazine Allergy Unknown Unknown Verified 09/01/24 14:03 allergy reaction Macrolide Antibiotics Allergy Unknown Unknown Verified 09/01/24 14:03 allergy reaction pravastatin (From Pravachol) Allergy Unknown Unknown Verified 09/01/24 14:03 allergy reaction Tvgrnmh-YML-MpL Reductase Allergy Unknown Unknown Verified 09/01/24 14:03 Inhibitor (Zxbjtdn-Ucf-Lwu allergy Reductase Inhibitor) reaction Discharge Plan Disposition Patient Disposition: Home Health Service Condition: Good Discharge Order Discharge Orders: Discharge Order (Routine); Ordered 08/23/24 Ordered By: Kuldeep Crespo Follow up Plan Follow up with: Bruce Faith MD [Primary Care Provider] - 09/01/24 1:45 pm Rajendra Page MD [Staff Physician] - 09/08/24 2:15 pm Prescriptions/Medication Reconciliation: New digoxin 125 mcg (0.125 mg) Tablet 125 mcg PO DAILY 30 Days Qty: 30 0RF diltiazem HCl 60 mg Tablet 60 mg PO Q8H 30 Days Qty: 90 0RF Jardiance 10 mg Tablet 10 mg PO DAILY 30 Days Qty: 30 0RF Continued cholecalciferol (vitamin D3) 25 mcg (1,000 unit) capsule 25 mcg PO DAILY finasteride 5 MG tablet 5 mg PO DAILY metoprolol tartrate 100 MG tablet 100 mg PO BID tamsulosin 0.4 MG capsule 0.4 mg PO HS methocarbamol 750 MG tablet 750 mg PO Q6HP PRN (Reason: Muscle Spasm) Stiolto Respimat 2.5-2.5 mcg/actuation Mist 2 puff INHALATION DAILY bumetanide 2 mg Tablet 2 mg PO BID tramadol 50 mg tablet 100 mg PO Q6HP PRN (Reason: Moderate Pain (Scale Score 5-6)) Patient Comments: 50 MG orally every 6 hours as needed As Needed for Severe Pain (Scale Score 7-10) for 30 days Align (B.infantis) 10.5 mg (10 million cell) Tablet,Chewable 10.5 mg PO DAILY albuterol sulfate 90 mcg/actuation Hfa Aerosol Inhaler 1 inh INHALATION QIDP PRN (Reason: Shortness Of Breath) sitagliptin 100 mg Tablet 100 mg PO DAILY venlafaxine [Effexor XR] 150 mg Capsule,Extended Release 24hr 150 mg PO DAILY ferrous sulfate [Iron (ferrous sulfate)] 325 mg (65 mg iron) Tablet 325 mg PO DAILY ascorbic acid (vitamin C) 500 mg Capsule 500 mg PO DAILY Rx Instructions: TAKE WITH IRON SUPPLEMENT [id number]-zyvsonst-[id number] ala 1 EACH tablet 1 each PO DAILY 30 Days Qty: 30 0RF Changed pantoprazole 40 MG tablet,delayed release (DR/EC) 40 mg PO DAILY 30 Days Qty: 0 0RF gabapentin 300 MG capsule 600 mg PO HS 30 Days Qty: 0 0RF No Action levofloxacin 750 mg tablet 750 mg PO DAILY Qty: 14 1RF Problem Reconciliation Problems Reviewed?: Yes Patient Discharge Instructions Additional Instructions: Please call general surgery to make an appointment for further evaluation of your hematoma: [phone]. Patient Instructions: DI for Pneumonia -- Adult, DI for Atrial Fibrillation, DI for Respiratory Failure, DI for Heart Failure Exacerbations Print Language: Thai Providers Primary Care Provider: Bruce Faith Admit Provider: Negrito Patricio Attending Provider: Negrito Patricio
[2024-08-23 12:00] LABS: POC Glucose,Bedside 202 (70-110)
[2024-08-23 13:12] LABS: Lactate Venous 1.8 mmol/L (0.4-2.0); VBG Base Excess 6.8 mmol/L (-2.4-2.3); VBG HCO3 30.8 mmol/L (23-30); VBG PCO2 45.4 mmol/L (35-51); VBG PH 7.45 mmol/L (7.31-7.41); VBG PO2 139.3 mmol/L (28-40); VBG Total CO2 32.2 mmol/L (23-27)
--- NOTE | 2024-08-23 13:41 | PC.NURSE ---
spoke with pt's daughter and informed her that he would be discharged today.
[2024-08-23] MEDS: LIDOCAINE 5% TRANSDERMAL PATCH 1 EACH TP (15:06)
--- NOTE | 2024-08-25 13:15 | CARE MANAGER ---
Spoke with Stephany Cerna in [place]. Provided order for overnight study and she states they will schedule. VIVIENNE Bradley
--- NOTE | 2024-08-26 11:13 | SW/DCPLANNER ---
Phoned patient x2 and each time left a call back number and no response either time. Lyndsay JIANG Addressing Machine Operator
[2024-08-26 13:08] LABS: HIV 1 Ab Reactive (Non Reactive); HIV 2 Ab Non Reactive (Non Reactive); HIV Screen 4th Generation wRfx Preliminary Reactive (Non Reactive); HIV-1 Ab CHG YES; HIV-2 Ab CHG YES; Interpretation: HIV-1 Positive (.)
[2024-08-31 09:50] LABS: Hepatitis B Surface Antigen Negative
== END 2024-08-23 16:10 | disposition home health service (06) | DRG 189 ==
LOC: ER 07:14 → 2ND 09:13 → ICU 08-20 17:55 → 2ND 08-22 15:13
PROVIDERS: Emergency Medicine; Internal Medicine; Student in an Organized Health Care Education/Training Program; Admitting Provider Internal Medicine Adolescent Medicine; Emergency Provider Emergency Medicine; PCP Internal Medicine; Visit Provider Internal Medicine Adolescent Medicine
DX: J96.21 Acute and chronic respiratory failure with hypoxia (principal); I50.33 Acute on chronic diastolic (congestive) heart failure; Z68.42 Body mass index [BMI] 45.0-49.9, adult; B20 Human immunodeficiency virus [HIV] disease; N39.0 Urinary tract infection, site not specified; E66.01 Morbid (severe) obesity due to excess calories; E11.65 Type 2 diabetes mellitus with hyperglycemia; Z99.81 Dependence on supplemental oxygen; S22.42XD Multiple fractures of ribs, left side, subsequent encounter for fracture with routine healing; R29.6 Repeated falls; Z79.4 Long term (current) use of insulin; Z79.899 Other long term (current) drug therapy; I11.0 Hypertensive heart disease with heart failure; S30.1XXA Contusion of abdominal wall, initial encounter; W19.XXXA Unspecified fall, initial encounter; Z74.1 Need for assistance with personal care; Z91.81 History of falling
CPT/HCPCS: 36415; 71045; 74018; 74176; 80053; 80202; 81001; 82009; 82803; 82962; 83605; 83735; 83880; 84443; 85007; 85025; 86355; 86359; 86360; 86701; 86702; 86703; 86704; 87040; 87070; 87077; 87086; 87205; 87340; 87380; 93005; 93306; 94640; 94660; 97110; 97163; 97165; 97530; 99291; G0432; J0696; J1160; J1650; J1939; J2543; J2919; J3370; J3475; J3480; J7620; Q9967

== ENCOUNTER → 2024-09-01 14:46 | Outpatient (CLI) | payer MEDICARE, OTHER, SELFPAY | LOC: SL 14:48 | PROVIDERS: PCP Internal Medicine; Visit Provider Internal Medicine | DX: J96.20 Acute and chronic respiratory failure, unspecified whether with hypoxia or hypercapnia (principal) | CPT/HCPCS: 94762 ==

== ENCOUNTER 2024-09-16 09:36 | Outpatient (CLI) | payer MEDICARE, OTHER, SELFPAY ==
[2024-09-16 10:10] LABS: Basophils # 0.1 K/mm3 (0-0.2); Basophils % 0.7 % (0.1-2.0); Eosinophils # 0.3 K/mm3 (0.0-0.4); Eosinophils % 3.4 % (0.1-12.0); Hematocrit 43.5 % (42.0-52.0); Hemoglobin 13.4 g/dL (14.1-18.0); Lymphocytes # 1.1 K/mm3 (0.7-4.5); Lymphocytes % 12.9 % (10-50); Mean Corpuscular HGB Conc 30.8 g/dL (31.8-35.4); Mean Corpuscular Hemoglobin 27.9 pg (27.0-31.2); Mean Corpuscular Volume 90.4 fl (80-94); Mean Platelet Volume 9.9 fl (7.4-10.4); Monocytes # 0.7 K/mm3 (0.1-1.0); Monocytes % 7.9 % (1.7-9.3); Neutrophils # 6.5 K/mm3 (1.8-7.8); Neutrophils % 74.4 % (37.0-80.0); Platelet Count 219 K/mm3 (142-424); Red Blood Count 4.81 M/mm3 (4.60-6.20); Red Cell Distribution Width 14.9 % (11.5-17.5); White Blood Count 8.8 K/mm3 (4.8-10.8)
[2024-09-16 11:37] LABS: Chloride 91 mmol/L (98-107); Potassium 4.6 mmoL/L (3.5-5.1); Sodium 134 mmol/L (136-145)
[2024-09-16 11:40] LABS: Blood Urea Nitrogen 27 mg/dl (9-20); Estimated Glomerular Filt Rate 66 ml/min (>60); GFR (African American) 80 ML/MIN (>60)
[2024-09-16 11:41] LABS: Calcium 8.6 mg/dl (8.4-10.2); Glucose 328 mg/dl (74-100)
[2024-09-16 11:50] LABS: Anion Gap 11.6 mEq/L (5-15); Carbon Dioxide 36 mmol/L (22.0-30.0)
[2024-09-16 12:11] LABS: Thyroid Stimulating Hormone 3.46 uIU/mL (0.465-4.68)
== END 2024-09-16 23:59 | disposition home or self-care (01) ==
LOC: LAB 09:38
PROVIDERS: PCP Internal Medicine; Visit Provider Physician Assistant
DX: I48.91 Unspecified atrial fibrillation (principal); I10 Essential (primary) hypertension; E11.59 Type 2 diabetes mellitus with other circulatory complications; I50.32 Chronic diastolic (congestive) heart failure; Z51.81 Encounter for therapeutic drug level monitoring; Z79.899 Other long term (current) drug therapy
CPT/HCPCS: 36415; 80048; 80162; 84443; 85025; 93225; 93227

== ENCOUNTER 2024-09-18 12:44 | Outpatient (CLI) | payer MEDICARE, OTHER, SELFPAY | END 2024-09-18 23:59 | disposition home or self-care (01) | LOC: RT 12:47 | PROVIDERS: PCP Internal Medicine; Visit Provider Physician Assistant | DX: I48.91 Unspecified atrial fibrillation (principal) | CPT/HCPCS: 93270 ==

== ENCOUNTER 2024-11-03 13:21 | Inpatient (IN) | payer OTHER, MEDICARE, SELFPAY ==
[2024-11-03] VITALS (15 sets, daily range): BP systolic 86–168; BP diastolic 41–95; PULSE 59–82; RESP 13–34; TEMP 36.8–36.9; O2SAT 93–99; BMI 36.2; BMI 36.1
--- NOTE | 2024-11-03 14:10 | ED_ITS ---
<Statement entered by Braden Pate MD - 11/06/24 15:21> I was consulted by the DEBRA, and we discussed the complexity of the problems being addressed. I approved the treatment and management plan for this patient's care in the emergency department, thus performing a substantive portion of the medical decision making. Braden Pate MD, MARIUSZ, FACEP Discharge Plan Disposition Patient Disposition: Admitted Condition: Serious Clinical Impressions Clinical Impression: Acute on chronic respiratory failure with hypoxia and hypercapnia, Encephalopathy acute, Fall, Abdominal wall hematoma Discharge ED Provider: Syeda Juan General Adult HPI <RACHEL Holcomb - Last Filed: 11/03/24 23:02> General Chief complaint: Fall Stated complaint: AO-Fall 1250-Fall, hematoma L Lower abd Time Seen by Provider: 11/03/24 14:10 Mode of Arrival: Wheelchair Source of Information: Patient Description of Symptoms (Recalled from ER Triage Doc. by RN): Reports falling backwards at home. Complaint of back and shoulder pain. Also reports hematoma and nausea. History of Present Illness HPI narrative: Patient presents for evaluation of a left lower abdominal wall hematoma with new pain and a fall. Patient has a history of multiple comorbidities including COPD on chronic oxygen, CHF, morbid obesity with alveolar hypoventilation, severe degenerative spine disease with multiple surgeries for hardware, GERD, BPH, and most recently was diagnosed with atrial flutter in August of this year. Patient was receiving Lovenox initially and ultimately developed a hematoma in his left lower abdominal wall. That was evaluated by general surgery and ultimately it had stabilized and no further intervention required other than observation. It had been actually painless until last night and patient started having increased pain in that area. He was evaluated by home health and advised to come to the emergency department. There is no new trauma no fever no redness associated with it. There is no induration noted. However on the way to the hospital patient was traveling to the car and he suddenly fell straight backwards striking his back neck and head. According to the patient's daughter he did not lose consciousness but also did not seem oriented to either. They were able to get him in the car and ultimately brought to the ER without any further episodes. Patient himself does not appear to be fully oriented at the moment but can occasionally be redirected to answer questions appropriately and states that he is having pain in his neck and his upper back but denies any numbness tingling. He is moving all 4 extremities currently. Related Data Home Medications ?Medication ?Instructions ?Recorded ?Confirmed finasteride 5 mg tablet 5 mg PO DAILY 11/13/18 09/16/24 tamsulosin 0.4 mg capsule 0.4 mg PO HS 01/06/20 09/16/24 methocarbamol 750 mg tablet 750 mg PO Q6HP PRN Muscle Spasm 11/26/20 09/16/24 cholecalciferol (vitamin D3) 25 25 mcg PO DAILY 12/30/20 09/16/24 mcg (1,000 unit) capsule ascorbic acid (vitamin C) 500 mg 500 mg PO DAILY 09/16/23 09/16/24 capsule ferrous sulfate 325 mg (65 mg 325 mg PO DAILY 09/16/23 09/16/24 iron) tablet (Iron (ferrous sulfate)) venlafaxine 150 mg 150 mg PO DAILY 09/16/23 09/16/24 capsule,extended release 24 hr (Effexor XR) tiotropium 2.5 mcg-olodaterol 2.5 2 puff inhalation DAILY 07/26/24 09/16/24 mcg/actuation mist for inhalation (Stiolto Respimat) Bifidobacterium infantis 10.5 mg 10.5 mg PO DAILY 08/19/24 09/16/24 (10 million cell) chewable tablet (Align (B.infantis)) bumetanide 2 mg tablet 2 mg PO BID 08/19/24 09/16/24 tramadol 50 mg tablet 100 mg PO Q6HP PRN Moderate Pain 08/19/24 09/16/24 (Scale Score 5-6) albuterol sulfate 90 mcg/actuation 1 inh inhalation QIDP PRN 08/20/24 09/16/24 aerosol inhaler Shortness Of Breath sitagliptin 100 mg tablet 100 mg PO DAILY 08/20/24 09/16/24 Previous Rx's ?Medication ?Instructions ?Recorded bictegravir 50 mg-emtricitabine 1 each PO DAILY 30 days #30 tabs 03/18/24 200 mg-tenofovir alafenam 25 mg tablet empagliflozin 10 mg tablet 10 mg PO DAILY 30 days #30 tabs 08/23/24 (Jardiance) gabapentin 300 mg capsule 600 mg (2 x 300 mg) PO HS 30 days 08/23/24 #0 caps pantoprazole 40 mg tablet,delayed 40 mg PO DAILY 30 days #0 tabs 08/23/24 release levofloxacin 750 mg tablet 750 mg PO DAILY #14 tabs 09/01/24 digoxin 125 mcg (0.125 mg) tablet 125 mcg PO DAILY #90 tabs 09/16/24 metoprolol tartrate 50 mg tablet 50 mg PO BID #60 tabs 09/16/24 Allergies Allergy/AdvReac Type Severity Reaction Status Date / Time SANDRA Inhibitors Allergy Unknown Unknown Verified 09/16/24 08:44 allergy reaction clofibrate Allergy Unknown Unknown Verified 09/16/24 08:44 allergy reaction enalapril Allergy Unknown Unknown Verified 09/16/24 08:44 allergy reaction erythromycin base Allergy Unknown Unknown Verified 09/16/24 08:44 allergy reaction gemfibrozil Allergy Unknown Unknown Verified 09/16/24 08:44 allergy reaction hepatitis A virus vaccine Allergy Unknown Unknown Verified 09/16/24 08:44 allergy reaction hydralazine Allergy Unknown Unknown Verified 09/16/24 08:44 allergy reaction Macrolide Antibiotics Allergy Unknown Unknown Verified 09/16/24 08:44 allergy reaction pravastatin (From Pravachol) Allergy Unknown Unknown Verified 09/16/24 08:44 allergy reaction Objlkku-IRZ-SwK Reductase Allergy Unknown Unknown Verified 09/16/24 08:44 Inhibitor (Btiadhx-Ras-Zat allergy Reductase Inhibitor) reaction PFS <RACHEL Holcomb - Last Filed: 11/03/24 23:02> [facility] Disclaimer: The information contained in this section may have been updated after the patient was seen, as this information can be updated by other users. Medical History HLD (hyperlipidemia) GERD (gastroesophageal reflux disease) CAD (coronary artery disease) CHF (congestive heart failure) Pneumonia Pleural effusion, bilateral Acute respiratory failure with hypoxia and hypercarbia Hypertension Chronic venous stasis dermatitis of both lower extremities HIV (human immunodeficiency virus infection) Diabetes mellitus, type 2 Closed fracture of neck of left humerus GI bleed due to NSAIDs Morbid obesity with BMI of 45.0-49.9, adult Family History Other No significant family history Social History (Reviewed 03/03/25 @ 20:41 by CASSIE Bhakta Smoking Status: Unknown if ever smoked second hand exposure: No alcohol intake: never substance use type: denies use current occupational status: retired Travel in the last 8 weeks: None household members: spouse and family housing: house current occupational exposures/hazards: No caffeine: Yes Have you lived/traveled outside [place] in past 30 days?: No Contact w/someone who lives/traveled outside US past 30 days?: No Exposure to someone with infectious disease in past 14 days?: No Do you have a fever (greater than 100.4 F or 38 C)?: No Have you tested positive for COVID-19: No Exposed to someone with COVID-19 in past 14 days?: No Do you have a sore throat?: No Do you have a cough?: No Do you have any weakness?: No Are you experiencing any nausea/vomitting?: No Do you have any diarrhea?: No Are you experiencing any unusual bleeding?: No Do you have any muscle aches/pain?: No Do you have any abdominal pain?: No Are you experiencing loss of taste or smell?: No Other Medical History Have you received the Flu Vaccine for this season: No Have you received the Pneumonia Vaccine: Yes <RACHEL Holcomb - Last Filed: 11/03/24 23:02> ROS Obtained: Yes Systems reviewed as appropriate & no additional complaints except as documented Physical Exam <RACHEL Holcomb - Last Filed: 11/03/24 23:02> General General appearance: anxious Respiratory Respiratory exam: Present normal lung sounds bilaterally Cardiovascular Cardiovascular exam: Present regular rate Neurological Exam Neurological exam: Absent alert, oriented X3 or motor sensory deficit Psychiatric Psychiatric exam: Present anxious (Rather restless) Medical Decision Making <RACHEL Holcomb - Last Filed: 11/03/24 23:02> Medical Records Medical records reviewed: Yes I reviewed the patient's medical records. Screening: Per USPSTF and CDC recommendations, given the prevalence of disease in our region, it is our hospital?s policy to screen for HIV and viral Hepatitis for all patients aged 18 and over and those with ongoing risk factors. Vital Signs: 11/03/24 13:40 11/03/24 14:06 11/03/24 14:40 Temperature Pulse Rate 59 L Pulse Rate [Radial] 60 Respiratory Rate 18 Blood Pressure 86/63 L 90/63 L Blood Pressure [Right Arm] 97/41 L Blood Pressure Mean 70 67 Blood Pressure Mean [Right Arm] 59 Blood Pressure Source [Right Arm] Automatic Cuff Blood Pressure Position [Right Arm] Sitting 02 Sat by Pulse Oximetry 96 95 Oxygen Delivery Method Nasal Cannula Oxygen Flow Rate (LPM) 3 Fraction of Inspired Oxygen 11/03/24 15:44 11/03/24 16:05 11/03/24 16:38 Temperature Pulse Rate 82 80 71 Pulse Rate [Radial] Respiratory Rate 34 H 23 25 H Blood Pressure 168/95 H 142/84 H 139/77 Blood Pressure [Right Arm] Blood Pressure Mean 107 98 97 Blood Pressure Mean [Right Arm] Blood Pressure Source [Right Arm] Blood Pressure Position [Right Arm] 02 Sat by Pulse Oximetry 99 98 96 Oxygen Delivery Method Oxygen Flow Rate (LPM) Fraction of Inspired Oxygen 11/03/24 16:41 11/03/24 17:01 11/03/24 17:30 Temperature Pulse Rate 64 60 Pulse Rate [Radial] Respiratory Rate 19 16 Blood Pressure 117/63 128/55 L Blood Pressure [Right Arm] Blood Pressure Mean 81 74 Blood Pressure Mean [Right Arm] Blood Pressure Source [Right Arm] Blood Pressure Position [Right Arm] 02 Sat by Pulse Oximetry 93 L 94 L Oxygen Delivery Method Oxygen Flow Rate (LPM) Fraction of Inspired Oxygen 30 11/03/24 18:00 11/03/24 19:05 Temperature 98.2 F Pulse Rate 60 59 L Pulse Rate [Radial] Respiratory Rate 13 15 Blood Pressure 134/68 134/71 Blood Pressure [Right Arm] Blood Pressure Mean 89 Blood Pressure Mean [Right Arm] Blood Pressure Source [Right Arm] Blood Pressure Position [Right Arm] 02 Sat by Pulse Oximetry 95 Oxygen Delivery Method BiPAP Oxygen Flow Rate (LPM) Fraction of Inspired Oxygen Lab Data Lab results reviewed: Yes I reviewed the patient's lab results. Lab Results 11/03/24 14:00: WBC 11.9 H, RBC 4.79, Hgb 13.6 L, Hct 43.9, MCV 91.6, MCH 28.4, MCHC 31.0 L, RDW 14.3, Plt Count 249, MPV 9.8, Neut % (Auto) 83.0 H, Lymph % (Auto) 7.5 L, Brule % (Auto) 5.6, Eos % (Auto) 2.7, Baso % (Auto) 0.7, Neut # (Auto) 9.9 H, Lymph # (Auto) 0.9, Brule # (Auto) 0.7, Eos # (Auto) 0.3, Baso # (Auto) 0.1, PT 10.8, INR 0.98, Sodium 136, Potassium 4.0, Chloride 90 L, Carbon Dioxide 39 H, Anion Gap 11.0, BUN 17, Creatinine 1.50 H, Estimated Creat Clear 76, Estimated GFR 46 L, Est GFR ( Amer) 56 L, Glucose 200 H, Calcium 8.4, Total Bilirubin 0.8, AST 31, ALT 18, Alkaline Phosphatase 280 H, Total Protein 7.7, Albumin 3.7, Globulin 4.0 H, Albumin/Globulin Ratio 0.9 L 11/03/24 16:09: ABG pH 7.25 L, ABG pCO2 81.8 H, ABG pO2 74.7 L, ABG HCO3 35.2 H, ABG Total CO2 37.7 H, ABG O2 Saturation 95, ABG Base Excess 8.0 H, ABG Lactate 1.4 11/03/24 14:00 11/03/24 14:00 Orders (Tests/Meds): ED MEDICATIONS Generic Name Dose Route Start Last Admin Trade Name Freq PRN Reason Stop Dose Admin Acetaminophen 650 mg 11/03/24 20:46 Acetaminophen 325mg Tab PO 12/03/24 20:45 Q4HP PRN Fever or Mild Pain (1-3) Digoxin 125 mcg 11/04/24 09:00 Digoxin 0.125mg Tablet PO 12/04/24 08:59 DAILY [facility] Docusate Sodium 100 mg 11/04/24 09:00 Docusate Sodium 100 Mg Capsule PO 12/04/24 08:59 DAILY [facility] Finasteride 5 mg 11/04/24 09:00 Finasteride 5mg Tablet PO 12/04/24 08:59 DAILY [facility] Gabapentin 600 mg 11/04/24 21:00 Gabapentin 300mg Capsule PO 12/04/24 20:59 HS [facility] Insulin Human Lispro 0 unit 11/03/24 21:00 11/03/24 22:56 Humalog 100 Units/Ml 10ml Vial (Ssi) SUBCUT 12/03/24 20:59 Not Given ACHS [facility] Protocol Metoprolol Tartrate 50 mg 11/04/24 09:00 Metoprolol Tartrate 50mg Tablet PO 12/04/24 08:59 BID DEANA Non-Formulary Medication 2 mg 11/04/24 09:00 Bumetanide PO 12/04/24 08:59 BID DEANA Non-Formulary Medication 10.5 mg 11/04/24 09:00 Bifidobacterium Infantis [Align (B.Infantis)] PO 12/04/24 08:59 DAILY [facility] Non-Formulary Medication 1 each 11/04/24 09:00 Toxgbpdbx-Bjjfyrsc-Ulkbxov Ala PO 12/04/24 08:59 DAILY [facility] Non-Formulary Medication 500 mg 11/04/24 09:00 Ascorbic Acid (Vitamin C) PO 12/04/24 08:59 DAILY [facility] Non-Formulary Medication 25 mcg 11/04/24 09:00 Cholecalciferol (Vitamin D3) PO 12/04/24 08:59 DAILY [facility] Non-Formulary Medication 2 puff 11/04/24 09:00 Tiotropium-Olodaterol [Stiolto Respimat] IH 12/04/24 08:59 DAILY [facility] Non-Formulary Medication 150 mg 11/04/24 09:00 Venlafaxine [Effexor Xr] PO 12/04/24 08:59 DAILY [facility] Non-Formulary Medication 750 mg 11/03/24 22:53 11/03/24 23:02 Methocarbamol PO 750 mg Q6HP PRN Administration Muscle Spasm Pantoprazole Sodium 40 mg 11/04/24 09:00 Pantoprazole 40mg Tablet PO 12/04/24 08:59 DAILY [facility] Tamsulosin HCl 0.4 mg 11/04/24 21:00 Tamsulosin 0.4mg Capsule PO 12/04/24 20:59 HS [facility] Tramadol HCl 100 mg 11/03/24 22:19 Tramadol 50mg Tablet PO 12/03/24 22:18 Q6HP PRN Moderate Pain (Scale Score 5-6) Discontinued Medications Generic Name Dose Route Start Last Admin Trade Name Freq PRN Reason Stop Dose Admin Acetaminophen 1,000 mg 11/03/24 14:15 11/03/24 14:46 Acetaminophen 1,000mg/100ml Vial IV 11/03/24 14:16 1,000 mg ONCE ONE Administration Albuterol/Ipratropium 9 ml 11/03/24 16:06 11/03/24 16:34 Ipratropium/Albuterol 3 Ml Neb IH 11/03/24 16:07 9 ml ONCE ONE Administration Diazepam 2 mg 11/03/24 16:16 11/03/24 16:25 Diazepam 10mg/2ml Syringe IV 11/03/24 16:17 2 mg ONCE ONE Administration Fentanyl Citrate 50 mcg 11/03/24 14:38 11/03/24 14:47 Fentanyl 100mcg/2ml Vial IV 11/03/24 14:39 50 mcg ONCE ONE Administration Fentanyl Citrate 100 mcg 11/03/24 15:07 11/03/24 15:23 Fentanyl 100mcg/2ml Vial IV 11/03/24 15:08 100 mcg ONCE ONE Administration Sodium Chloride 1,000 mls @ 999 mls/hr 11/03/24 14:15 11/03/24 14:46 Sod Chlor 0.9% 1000ml Bag IV 11/03/24 15:15 999 mls/hr .Q1H1M ONE Administration Iopamidol 130 ml 11/03/24 15:25 11/03/24 15:26 Iopamidol-370 (76%);100ml Bottle IV 11/03/24 15:26 130 ml ONCE ONE Administration Naloxone HCl 4 mg 11/03/24 15:40 11/03/24 15:44 Naloxone 2mg/2ml Syringe IV 11/03/24 15:41 4 mg ONCE ONE Administration Sodium Chloride 10 ml 11/03/24 15:25 11/03/24 15:26 Sodium Chloride 0.9% 10ml Syr (Rad Only) IV 11/03/24 15:26 10 ml ONCE ONE Administration Sodium Chloride 100 ml 11/03/24 15:25 11/03/24 15:26 0.9 % Sodium Chloride 50 Ml Vial IV 11/03/24 15:26 100 ml ONCE ONE Administration ORDERS Category Date Time Status CT abdomen pelvis w con Stat Cat Scan 11/03/24 14:[address] angio head Stat Cat Scan 11/03/24 14:[address] angio neck Stat Cat Scan 11/03/24 14:[address] bony pelvis Stat Cat Scan 11/03/24 14:[address] cervical spine wo con Stat Cat Scan 11/03/24 14:[address] head/brain wo con Stat Cat Scan 11/03/24 14:[address] lumbar spine wo con Stat Cat Scan 11/03/24 14:[address] thoracic spine wo con Stat Cat Scan 11/03/24 14:17 Completed CXR --portable [XR chest portable] Stat Exams 11/03/24 16:09 Completed CBC w/Auto Diff [Complete Blood Count Auto Diff] Stat Lab 11/03/24 14:00 Completed CMP [Comprehensive Metabolic Panel] Stat Lab 11/03/24 14:00 Completed INR [Prothrombin Time INR] Stat Lab 11/03/24 14:00 Completed ABG [Arterial Blood Gas] Stat RT 11/03/24 16:09 Completed Lactate Arterial Stat RT 11/03/24 16:09 Completed HEART Score History (anamnesis): Slightly suspicious ECG: Non-specific disturbance Age: >65 years Risk factors: Atherosclerosis history Troponin: </= normal limit HEART Score: 5 Medical Decision Narrative: In summary patient is a 69-year-old gentleman who presents to the emergency department for evaluation of left lower abdominal wall hematoma and acute fall. Patient actually is hypotensive and inappropriately bradycardic on arrival with a pressure of 97/41 with a pulse of 60 but breathing 18 times a minute satting at 96% on 3 L by nasal cannula which is his baseline and afebrile. Physical exam is remarkable for a restless slightly agitated 69-year-old morbidly obese gentleman. He appears to have some disorientation but not knowing what his normal neurologic baseline is is hard to tell. He can be redirected and answers questions appropriately but seems to get distracted by the pain in his neck. He has tenderness to palpation of the paraspinous musculature of the neck and thoracic spine without any palpable bony deformity any obvious contusions abrasionsin the paraspinous musculature of the cervical and thoracic spine however patient is spontaneously moving all 4 extremities as well as his head and neck ecchymosis or bleeding. Patient is moving all 4 extremities. I would actually say that the patient is a oriented only to person and place but not circumstance currently. Pupils are equal round reactive to light breath sounds show late end expiratory wheezes but no increased work of breathing or accessory muscle use. Abdomen is soft and the anterior left lower quadrant there is approximately 8 to 10 cm around hematoma with a fairly firm Jessica and a soft center but there is no redness no evidence of superficial trauma it is movable in the subcutaneous tissue does not feel firm or attached but there is tenderness to palpation about it.. Differential diagnosis includes syncope and collapse versus orthostatic hypotension versus intracranial head injury versus ACS versus stroke versus expanding hematoma etc. Initial workup will be conducted with ED trauma scans hematologic labs initially. Initial interventions include crystalloid bolus and acetaminophen. I actually considered opiates but given his low blood pressure and low heart rate I was hesitant to give a dose of oral Dilaudid for fear of worsening both. I gave an initial dose of fentanyl 50 mcg however that seemed to have no effect on the patient's pain. But at the time of imaging given the patient's body habitus I discussed with Dr. Marley increasing dose and we made a decision to give 100 mcg more to obtain his images. Upon return from the CAT scanner we were called to the room by the blood bank laboratory technologist. I found the patient dusky obtunded with shallow breathing. Bedside monitor said his O2 sat was 22%. I immediately raised the of the bed to a 30 degree sitting position from supine and used modified jaw thrust to open his airway while the nurse administered supportive breathing via [id number]. We then administered 2 mg of Narcan with 1 mg intervals that improved the patient's responsiveness but not from his baseline on his arrival. I then broaden the investigation and ordered more hematologic investigations and an ABG that showed acute on chronic hypercarbic hypercapnic respiratory failure. Initial workup reviewed by me showed that his white count was 11.9 with no neutrophilic shift INR was 0.98 CMP showed a creatinine of 1.5 glucose of 200 alk phos of 280 and explained exam show that his NT proBNP was 2130 and my informal interpretation of his CT scan abdomen pelvis that showed no evidence of extravasation of contrast into the hematoma and no other acute processes noted. Ultimately patient did not fully respond and given his findings I believe he is encephalopathic and actually may have been working in that direction and even at his time of arrival as he did not seem to be truly oriented on my initial exam but the combination of pain medication, alveolar hypoventilation and chronic COPD as well as lying flat to obtain his imaging combined to decrease his ability to oxygenate thus patient was put on BiPAP. I then had interactive discussion with hospital medicine regarding patient GARRISON presentation and patient management and he will be admitted for further evaluation and care. Gaurav Marley: My care as it pertains to this patient is limited to acute pain intervention that was conducted under my direction and described following: I was assisting with surge capacity management in the emergency department with multiple patients. This patient was under the primary care of Dr. Pate and Erik Sparrow, initially. CT notified nursing and Don that the patient was moving around significantly due to pain while in the CT scanner lying flat. Dr. Pate was in a procedure and unavailable at this time. I discussed the case with Erik about what he had received thus far and when (he had received fentanyl 50ug thirty minutes prior). I then reviewed his weight which was documented as 117 kg and gave Don the verbal order to put in for 100ug additional of fentanyl for acute pain management to facilitate imaging. Please see remainder of documentation for HPI, clinical care, and other management that occured. <Gaurav Marley MD - Last Filed: 11/03/24 16:53> Valentin Inquiry Pt receiving controlled substance: No Vital Signs: 11/03/24 13:40 11/03/24 14:06 11/03/24 14:40 Temperature Pulse Rate 59 L Pulse Rate [Radial] 60 Respiratory Rate 18 Blood Pressure 86/63 L 90/63 L Blood Pressure [Right Arm] 97/41 L Blood Pressure Mean 70 67 Blood Pressure Mean [Right Arm] 59 Blood Pressure Source [Right Arm] Automatic Cuff Blood Pressure Position [Right Arm] Sitting 02 Sat by Pulse Oximetry 96 95 Oxygen Delivery Method Nasal Cannula Oxygen Flow Rate (LPM) 3 Fraction of Inspired Oxygen 11/03/24 15:44 11/03/24 16:05 11/03/24 16:38 Temperature Pulse Rate 82 80 71 Pulse Rate [Radial] Respiratory Rate 34 H 23 25 H Blood Pressure 168/95 H 142/84 H 139/77 Blood Pressure [Right Arm] Blood Pressure Mean 107 98 97 Blood Pressure Mean [Right Arm] Blood Pressure Source [Right Arm] Blood Pressure Position [Right Arm] 02 Sat by Pulse Oximetry 99 98 96 Oxygen Delivery Method Oxygen Flow Rate (LPM) Fraction of Inspired Oxygen 11/03/24 16:41 11/03/24 17:01 11/03/24 17:30 Temperature Pulse Rate 64 60 Pulse Rate [Radial] Respiratory Rate 19 16 Blood Pressure 117/63 128/55 L Blood Pressure [Right Arm] Blood Pressure Mean 81 74 Blood Pressure Mean [Right Arm] Blood Pressure Source [Right Arm] Blood Pressure Position [Right Arm] 02 Sat by Pulse Oximetry 93 L 94 L Oxygen Delivery Method Oxygen Flow Rate (LPM) Fraction of Inspired Oxygen 30 11/03/24 18:00 11/03/24 19:05 Temperature 98.2 F Pulse Rate 60 59 L Pulse Rate [Radial] Respiratory Rate 13 15 Blood Pressure 134/68 134/71 Blood Pressure [Right Arm] Blood Pressure Mean 89 Blood Pressure Mean [Right Arm] Blood Pressure Source [Right Arm] Blood Pressure Position [Right Arm] 02 Sat by Pulse Oximetry 95 Oxygen Delivery Method BiPAP Oxygen Flow Rate (LPM) Fraction of Inspired Oxygen Lab Data Lab Results 11/03/24 14:00: WBC 11.9 H, RBC 4.79, Hgb 13.6 L, Hct 43.9, MCV 91.6, MCH 28.4, MCHC 31.0 L, RDW 14.3, Plt Count 249, MPV 9.8, Neut % (Auto) 83.0 H, Lymph % (Auto) 7.5 L, Brule % (Auto) 5.6, Eos % (Auto) 2.7, Baso % (Auto) 0.7, Neut # (Auto) 9.9 H, Lymph # (Auto) 0.9, Brule # (Auto) 0.7, Eos # (Auto) 0.3, Baso # (Auto) 0.1, PT 10.8, INR 0.98, Sodium 136, Potassium 4.0, Chloride 90 L, Carbon Dioxide 39 H, Anion Gap 11.0, BUN 17, Creatinine 1.50 H, Estimated Creat Clear 76, Estimated GFR 46 L, Est GFR ( Amer) 56 L, Glucose 200 H, Calcium 8.4, Total Bilirubin 0.8, AST 31, ALT 18, Alkaline Phosphatase 280 H, Total Protein 7.7, Albumin 3.7, Globulin 4.0 H, Albumin/Globulin Ratio 0.9 L 11/03/24 16:09: ABG pH 7.25 L, ABG pCO2 81.8 H, ABG pO2 74.7 L, ABG HCO3 35.2 H, ABG Total CO2 37.7 H, ABG O2 Saturation 95, ABG Base Excess 8.0 H, ABG Lactate 1.4 Orders (Tests/Meds): ED MEDICATIONS Generic Name Dose Route Start Last Admin Trade Name Freq PRN Reason Stop Dose Admin Acetaminophen 650 mg 11/03/24 20:46 Acetaminophen 325mg Tab PO 12/03/24 20:45 Q4HP PRN Fever or Mild Pain (1-3) Digoxin 125 mcg 11/04/24 09:00 Digoxin 0.125mg Tablet PO 12/04/24 08:59 DAILY [facility] Docusate Sodium 100 mg 11/04/24 09:00 Docusate Sodium 100 Mg Capsule PO 12/04/24 08:59 DAILY [facility] Finasteride 5 mg 11/04/24 09:00 Finasteride 5mg Tablet PO 12/04/24 08:59 DAILY [facility] Gabapentin 600 mg 11/04/24 21:00 Gabapentin 300mg Capsule PO 12/04/24 20:59 HS [facility] Insulin Human Lispro 0 unit 11/03/24 21:00 11/03/24 22:56 Humalog 100 Units/Ml 10ml Vial ([facility]) SUBCUT 12/03/24 20:59 Not Given ACHS [facility] Protocol Metoprolol Tartrate 50 mg 11/04/24 09:00 Metoprolol Tartrate 50mg Tablet PO 12/04/24 08:59 BID [facility] Non-Formulary Medication 2 mg 11/04/24 09:00 Bumetanide PO 12/04/24 08:59 BID [facility] Non-Formulary Medication 10.5 mg 11/04/24 09:00 Bifidobacterium Infantis [Align (B.Infantis)] PO 12/04/24 08:59 DAILY [facility] Non-Formulary Medication 1 each 11/04/24 09:00 Akzfeqyan-Dsxkbulj-Ypqruon Ala PO 12/04/24 08:59 DAILY [facility] Non-Formulary Medication 500 mg 11/04/24 09:00 Ascorbic Acid (Vitamin C) PO 12/04/24 08:59 DAILY [facility] Non-Formulary Medication 25 mcg 11/04/24 09:00 Cholecalciferol (Vitamin D3) PO 12/04/24 08:59 DAILY [facility] Non-Formulary Medication 2 puff 11/04/24 09:00 Tiotropium-Olodaterol [Stiolto Respimat] IH 12/04/24 08:59 DAILY [facility] Non-Formulary Medication 150 mg 11/04/24 09:00 Venlafaxine [Effexor Xr] PO 12/04/24 08:59 DAILY [facility] Non-Formulary Medication 750 mg 11/03/24 22:53 11/03/24 23:02 Methocarbamol PO 750 mg Q6HP PRN Administration Muscle Spasm Pantoprazole Sodium 40 mg 11/04/24 09:00 Pantoprazole 40mg Tablet PO 12/04/24 08:59 DAILY [facility] Tamsulosin HCl 0.4 mg 11/04/24 21:00 Tamsulosin 0.4mg Capsule PO 12/04/24 20:59 HS [facility] Tramadol HCl 100 mg 11/03/24 22:19 Tramadol 50mg Tablet PO 12/03/24 22:18 Q6HP PRN Moderate Pain (Scale Score 5-6) Discontinued Medications Generic Name Dose Route Start Last Admin Trade Name Freq PRN Reason Stop Dose Admin Acetaminophen 1,000 mg 11/03/24 14:15 11/03/24 14:46 Acetaminophen 1,000mg/100ml Vial IV 11/03/24 14:16 1,000 mg ONCE ONE Administration Albuterol/Ipratropium 9 ml 11/03/24 16:06 11/03/24 16:34 Ipratropium/Albuterol 3 Ml Neb IH 11/03/24 16:07 9 ml ONCE ONE Administration Diazepam 2 mg 11/03/24 16:16 11/03/24 16:25 Diazepam 10mg/2ml Syringe IV 11/03/24 16:17 2 mg ONCE ONE Administration Fentanyl Citrate 50 mcg 11/03/24 14:38 11/03/24 14:47 Fentanyl 100mcg/2ml Vial IV 11/03/24 14:39 50 mcg ONCE ONE Administration Fentanyl Citrate 100 mcg 11/03/24 15:07 11/03/24 15:23 Fentanyl 100mcg/2ml Vial IV 11/03/24 15:08 100 mcg ONCE ONE Administration Sodium Chloride 1,000 mls @ 999 mls/hr 11/03/24 14:15 11/03/24 14:46 Sod Chlor 0.9% 1000ml Bag IV 11/03/24 15:15 999 mls/hr .Q1H1M ONE Administration Iopamidol 130 ml 11/03/24 15:25 11/03/24 15:26 Iopamidol-370 (76%);100ml Bottle IV 11/03/24 15:26 130 ml ONCE ONE Administration Naloxone HCl 4 mg 11/03/24 15:40 11/03/24 15:44 Naloxone 2mg/2ml Syringe IV 11/03/24 15:41 4 mg ONCE ONE Administration Sodium Chloride 10 ml 11/03/24 15:25 11/03/24 15:26 Sodium Chloride 0.9% 10ml Syr (Rad Only) IV 11/03/24 15:26 10 ml ONCE ONE Administration Sodium Chloride 100 ml 11/03/24 15:25 11/03/24 15:26 0.9 % Sodium Chloride 50 Ml Vial IV 11/03/24 15:26 100 ml ONCE ONE Administration ORDERS Category Date Time Status CT abdomen pelvis w con Stat Cat Scan 11/03/24 14:[address] angio head Stat Cat Scan 11/03/24 14:[address] angio neck Stat Cat Scan 11/03/24 14:[address] bony pelvis Stat Cat Scan 11/03/24 14:[address] cervical spine wo con Stat Cat Scan 11/03/24 14:[address] head/brain wo con Stat Cat Scan 11/03/24 14:[address] lumbar spine wo con Stat Cat Scan 11/03/24 14:[address] thoracic spine wo con Stat Cat Scan 11/03/24 14:17 Completed CXR --portable [XR chest portable] Stat Exams 11/03/24 16:09 Completed CBC w/Auto Diff [Complete Blood Count Auto Diff] Stat Lab 11/03/24 14:00 Completed CMP [Comprehensive Metabolic Panel] Stat Lab 11/03/24 14:00 Completed INR [Prothrombin Time INR] Stat Lab 11/03/24 14:00 Completed ABG [Arterial Blood Gas] Stat RT 11/03/24 16:09 Completed Lactate Arterial Stat RT 11/03/24 16:09 Completed Medical Decision Narrative: Gaurav Marley: My care as it pertains to this patient is limited to acute pain intervention that was conducted under my direction and described following: I was assisting with surge capacity management in the emergency department with multiple patients. This patient was under the primary care of Dr. Pate and Erik Sparrow, initially. CT notified nursing and Don that the patient was moving around significantly due to pain while in the CT scanner lying flat. Dr. Pate was in a procedure and unavailable at this time. I discussed the case with Erik about what he had received thus far and when (he had received fentanyl 50ug thirty minutes prior). I then reviewed his weight which was documented as 117 kg and gave Don the verbal order to put in for 100ug additional of fentanyl for acute pain management to facilitate imaging. Please see remainder of documentation for HPI, clinical care, and other management that occured. <Syeda Juan, DO - Last Filed: 11/04/24 00:23> Vital Signs: 11/03/24 13:40 11/03/24 14:06 11/03/24 14:40 Temperature Pulse Rate 59 L Pulse Rate [Radial] 60 Respiratory Rate 18 Blood Pressure 86/63 L 90/63 L Blood Pressure [Right Arm] 97/41 L Blood Pressure Mean 70 67 Blood Pressure Mean [Right Arm] 59 Blood Pressure Source [Right Arm] Automatic Cuff Blood Pressure Position [Right Arm] Sitting 02 Sat by Pulse Oximetry 96 95 Oxygen Delivery Method Nasal Cannula Oxygen Flow Rate (LPM) 3 Fraction of Inspired Oxygen 11/03/24 15:44 11/03/24 16:05 11/03/24 16:38 Temperature Pulse Rate 82 80 71 Pulse Rate [Radial] Respiratory Rate 34 H 23 25 H Blood Pressure 168/95 H 142/84 H 139/77 Blood Pressure [Right Arm] Blood Pressure Mean 107 98 97 Blood Pressure Mean [Right Arm] Blood Pressure Source [Right Arm] Blood Pressure Position [Right Arm] 02 Sat by Pulse Oximetry 99 98 96 Oxygen Delivery Method Oxygen Flow Rate (LPM) Fraction of Inspired Oxygen 11/03/24 16:41 11/03/24 17:01 11/03/24 17:30 Temperature Pulse Rate 64 60 Pulse Rate [Radial] Respiratory Rate 19 16 Blood Pressure 117/63 128/55 L Blood Pressure [Right Arm] Blood Pressure Mean 81 74 Blood Pressure Mean [Right Arm] Blood Pressure Source [Right Arm] Blood Pressure Position [Right Arm] 02 Sat by Pulse Oximetry 93 L 94 L Oxygen Delivery Method Oxygen Flow Rate (LPM) Fraction of Inspired Oxygen 30 11/03/24 18:00 11/03/24 19:05 Temperature 98.2 F Pulse Rate 60 59 L Pulse Rate [Radial] Respiratory Rate 13 15 Blood Pressure 134/68 134/71 Blood Pressure [Right Arm] Blood Pressure Mean 89 Blood Pressure Mean [Right Arm] Blood Pressure Source [Right Arm] Blood Pressure Position [Right Arm] 02 Sat by Pulse Oximetry 95 Oxygen Delivery Method BiPAP Oxygen Flow Rate (LPM) Fraction of Inspired Oxygen Lab Data Lab Results 11/03/24 14:00: WBC 11.9 H, RBC 4.79, Hgb 13.6 L, Hct 43.9, MCV 91.6, MCH 28.4, MCHC 31.0 L, RDW 14.3, Plt Count 249, MPV 9.8, Neut % (Auto) 83.0 H, Lymph % (Auto) 7.5 L, Brule % (Auto) 5.6, Eos % (Auto) 2.7, Baso % (Auto) 0.7, Neut # (Auto) 9.9 H, Lymph # (Auto) 0.9, Brule # (Auto) 0.7, Eos # (Auto) 0.3, Baso # (Auto) 0.1, PT 10.8, INR 0.98, Sodium 136, Potassium 4.0, Chloride 90 L, Carbon Dioxide 39 H, Anion Gap 11.0, BUN 17, Creatinine 1.50 H, Estimated Creat Clear 76, Estimated GFR 46 L, Est GFR ( Amer) 56 L, Glucose 200 H, Calcium 8.4, Total Bilirubin 0.8, AST 31, ALT 18, Alkaline Phosphatase 280 H, Total Protein 7.7, Albumin 3.7, Globulin 4.0 H, Albumin/Globulin Ratio 0.9 L 11/03/24 16:09: ABG pH 7.25 L, ABG pCO2 81.8 H, ABG pO2 74.7 L, ABG HCO3 35.2 H, ABG Total CO2 37.7 H, ABG O2 Saturation 95, ABG Base Excess 8.0 H, ABG Lactate 1.4 Orders (Tests/Meds): ED MEDICATIONS Generic Name Dose Route Start Last Admin Trade Name Freq PRN Reason Stop Dose Admin Acetaminophen 650 mg 11/03/24 20:46 Acetaminophen 325mg Tab PO 12/03/24 20:45 Q4HP PRN Fever or Mild Pain (1-3) Digoxin 125 mcg 11/04/24 09:00 Digoxin 0.125mg Tablet PO 12/04/24 08:59 DAILY [facility] Docusate Sodium 100 mg 11/04/24 09:00 Docusate Sodium 100 Mg Capsule PO 12/04/24 08:59 DAILY [facility] Finasteride 5 mg 11/04/24 09:00 Finasteride 5mg Tablet PO 12/04/24 08:59 DAILY [facility] Gabapentin 600 mg 11/04/24 21:00 Gabapentin 300mg Capsule PO 12/04/24 20:59 HS [facility] Insulin Human Lispro 0 unit 11/03/24 21:00 11/03/24 22:56 Humalog 100 Units/Ml 10ml Vial ([facility]) SUBCUT 12/03/24 20:59 Not Given ACHS [facility] Protocol Metoprolol Tartrate 50 mg 11/04/24 09:00 Metoprolol Tartrate 50mg Tablet PO 12/04/24 08:59 BID [facility] Non-Formulary Medication 2 mg 11/04/24 09:00 Bumetanide PO 12/04/24 08:59 BID [facility] Non-Formulary Medication 10.5 mg 11/04/24 09:00 Bifidobacterium Infantis [Align (B.Infantis)] PO 12/04/24 08:59 DAILY [facility] Non-Formulary Medication 1 each 11/04/24 09:00 Tqiiamjny-Wxcoccbd-Ontuacm Ala PO 12/04/24 08:59 DAILY [facility] Non-Formulary Medication 500 mg 11/04/24 09:00 Ascorbic Acid (Vitamin C) PO 12/04/24 08:59 DAILY [facility] Non-Formulary Medication 25 mcg 11/04/24 09:00 Cholecalciferol (Vitamin D3) PO 12/04/24 08:59 DAILY [facility] Non-Formulary Medication 2 puff 11/04/24 09:00 Tiotropium-Olodaterol [Stiolto Respimat] IH 12/04/24 08:59 DAILY [facility] Non-Formulary Medication 150 mg 11/04/24 09:00 Venlafaxine [Effexor Xr] PO 12/04/24 08:59 DAILY [facility] Non-Formulary Medication 750 mg 11/03/24 22:53 11/03/24 23:02 Methocarbamol PO 750 mg Q6HP PRN Administration Muscle Spasm Pantoprazole Sodium 40 mg 11/04/24 09:00 Pantoprazole 40mg Tablet PO 12/04/24 08:59 DAILY [facility] Tamsulosin HCl 0.4 mg 11/04/24 21:00 Tamsulosin 0.4mg Capsule PO 12/04/24 20:59 HS [facility] Tramadol HCl 100 mg 11/03/24 22:19 Tramadol 50mg Tablet PO 12/03/24 22:18 Q6HP PRN Moderate Pain (Scale Score 5-6) Discontinued Medications Generic Name Dose Route Start Last Admin Trade Name Jarrod PRN Reason Stop Dose Admin Acetaminophen 1,000 mg 11/03/24 14:15 11/03/24 14:46 Acetaminophen 1,000mg/100ml Vial IV 11/03/24 14:16 1,000 mg ONCE ONE Administration Albuterol/Ipratropium 9 ml 11/03/24 16:06 11/03/24 16:34 Ipratropium/Albuterol 3 Ml Neb IH 11/03/24 16:07 9 ml ONCE ONE Administration Diazepam 2 mg 11/03/24 16:16 11/03/24 16:25 Diazepam 10mg/2ml Syringe IV 11/03/24 16:17 2 mg ONCE ONE Administration Fentanyl Citrate 50 mcg 11/03/24 14:38 11/03/24 14:47 Fentanyl 100mcg/2ml Vial IV 11/03/24 14:39 50 mcg ONCE ONE Administration Fentanyl Citrate 100 mcg 11/03/24 15:07 11/03/24 15:23 Fentanyl 100mcg/2ml Vial IV 11/03/24 15:08 100 mcg ONCE ONE Administration Sodium Chloride 1,000 mls @ 999 mls/hr 11/03/24 14:15 11/03/24 14:46 Sod Chlor 0.9% 1000ml Bag IV 11/03/24 15:15 999 mls/hr .Q1H1M ONE Administration Iopamidol 130 ml 11/03/24 15:25 11/03/24 15:26 Iopamidol-370 (76%);100ml Bottle IV 11/03/24 15:26 130 ml ONCE ONE Administration Naloxone HCl 4 mg 11/03/24 15:40 11/03/24 15:44 Naloxone 2mg/2ml Syringe IV 11/03/24 15:41 4 mg ONCE ONE Administration Sodium Chloride 10 ml 11/03/24 15:25 11/03/24 15:26 Sodium Chloride 0.9% 10ml Syr (Rad Only) IV 11/03/24 15:26 10 ml ONCE ONE Administration Sodium Chloride 100 ml 11/03/24 15:25 11/03/24 15:26 0.9 % Sodium Chloride 50 Ml Vial IV 11/03/24 15:26 100 ml ONCE ONE Administration ORDERS Category Date Time Status CT abdomen pelvis w con Stat Cat Scan 11/03/24 14:[address] angio head Stat Cat Scan 11/03/24 14:[address] angio neck Stat Cat Scan 11/03/24 14:[address] bony pelvis Stat Cat Scan 11/03/24 14:[address] cervical spine wo con Stat Cat Scan 11/03/24 14:[address] head/brain wo con Stat Cat Scan 11/03/24 14:[address] lumbar spine wo con Stat Cat Scan 11/03/24 14:[address] thoracic spine wo con Stat Cat Scan 11/03/24 14:17 Completed CXR --portable [XR chest portable] Stat Exams 11/03/24 16:09 Completed CBC w/Auto Diff [Complete Blood Count Auto Diff] Stat Lab 11/03/24 14:00 Completed CMP [Comprehensive Metabolic Panel] Stat Lab 11/03/24 14:00 Completed INR [Prothrombin Time INR] Stat Lab 11/03/24 14:00 Completed ABG [Arterial Blood Gas] Stat RT 11/03/24 16:09 Completed Lactate Arterial Stat RT 11/03/24 16:09 Completed HEART Score HEART Score: 5 Medical Decision Narrative: In summary patient is a 69-year-old gentleman who presents to the emergency department for evaluation of left lower abdominal wall hematoma and acute fall. Patient actually is hypotensive and inappropriately bradycardic on arrival with a pressure of 97/41 with a pulse of 60 but breathing 18 times a minute satting at 96% on 3 L by nasal cannula which is his baseline and afebrile. Physical exam is remarkable for a restless slightly agitated 69-year-old morbidly obese gentleman. He appears to have some disorientation but not knowing what his normal neurologic baseline is is hard to tell. He can be redirected and answers questions appropriately but seems to get distracted by the pain in his neck. He has tenderness to palpation of the paraspinous musculature of the neck and thoracic spine without any palpable bony deformity any obvious contusions abrasionsin the paraspinous musculature of the cervical and thoracic spine however patient is spontaneously moving all 4 extremities as well as his head and neck ecchymosis or bleeding. Patient is moving all 4 extremities. I would actually say that the patient is a oriented only to person and place but not circumstance currently. Pupils are equal round reactive to light breath sounds show late end expiratory wheezes but no increased work of breathing or accessory muscle use. Abdomen is soft and the anterior left lower quadrant there is approximately 8 to 10 cm around hematoma with a fairly firm Jessica and a soft center but there is no redness no evidence of superficial trauma it is movable in the subcutaneous tissue does not feel firm or attached but there is tenderness to palpation about it.. Differential diagnosis includes syncope and collapse versus orthostatic hypotension versus intracranial head injury versus ACS versus stroke versus expanding hematoma etc. Initial workup will be conducted with ED trauma scans hematologic labs initially. Initial interventions include crystalloid bolus and acetaminophen. I actually considered opiates but given his low blood pressure and low heart rate I was hesitant to give a dose of oral Dilaudid for fear of worsening both. I gave an initial dose of fentanyl 50 mcg however that seemed to have no effect on the patient's pain. But at the time of imaging given the patient's body habitus I discussed with Dr. Marley increasing dose and we made a decision to give 100 mcg more to obtain his images. Upon return from the CAT scanner we were called to the room by the blood bank laboratory technologist. I found the patient dusky obtunded with shallow breathing. Bedside monitor said his O2 sat was 22%. I immediately raised the of the bed to a 30 degree sitting position from supine and used modified jaw thrust to open his airway while the nurse administered supportive breathing via [id number]. We then administered 2 mg of Narcan with 1 mg intervals that improved the patient's responsiveness but not from his baseline on his arrival. I then broaden the investigation and ordered more hematologic investigations and an ABG that showed acute on chronic hypercarbic hypercapnic respiratory failure. Initial workup reviewed by me showed that his white count was 11.9 with no neutrophilic shift INR was 0.98 CMP showed a creatinine of 1.5 glucose of 200 alk phos of 280 and explained exam show that his NT proBNP was 2130 and my informal interpretation of his CT scan abdomen pelvis that showed no evidence of extravasation of contrast into the hematoma and no other acute processes noted. Ultimately patient did not fully respond and given his findings I believe he is encephalopathic and actually may have been working in that direction and even at his time of arrival as he did not seem to be truly oriented on my initial exam but the combination of pain medication, alveolar hypoventilation and chronic COPD as well as lying flat to obtain his imaging combined to decrease his ability to oxygenate thus patient was put on BiPAP. I then had interactive discussion with hospital medicine regarding patient GARRISON presentation and patient management and he will be admitted for further evaluation and care. Gaurav Marley: My care as it pertains to this patient is limited to acute pain intervention that was conducted under my direction and described following: I was assisting with surge capacity management in the emergency department with multiple patients. This patient was under the primary care of Dr. Pate and Erik Sparrow, initially. CT notified nursing and Don that the patient was moving around significantly due to pain while in the CT scanner lying flat. Dr. Pate was in a procedure and unavailable at this time. I discussed the case with Don about what he had received thus far and when (he had received fentanyl 50ug thirty minutes prior). I then reviewed his weight which was documented as 117 kg and gave Don the verbal order to put in for 100ug additional of fentanyl for acute pain management to facilitate imaging. Please see remainder of documentation for HPI, clinical care, and other management that occured. DO Drake: I was consulted by the DEBRA, and we discussed the complexity of the problems being addressed. I approved the treatment and management plan for this patient's care in the emergency department, thus performing a substantive portion of the medical decision making. I assumed care of the patient at time of departure of previous providers around 1530 p.m. Once patient had come back from CT scan, he was noted to have significant respiratory depression, cyanosis, and low O2 saturation on his home nasal cannula. This was after receiving IV fentanyl and also being forced to lie flat for an extended period of time for trauma CT scans. He does not do well lying flat according to family, given his obesity hypoventilation, chronic respiratory failure, CHF, and COPD. Patient was given Narcan with good improvement in his mental status and respiratory status. He initially required [id number] ventilation for respiratory support, but he did quickly recover. I got an ABG afterward which was concerning for CO2 retention with decompensated respiratory failure. Given this, the patient was placed on BiPAP. Once he became more alert and interactive, he was complaining of muscle spasms all over in significant pain. Given this, I did give him a very small dose of IV Valium, as family stated that he would tolerate this better than he does narcotics. He did tolerate this well and did fine on BiPAP. His labs aside from demonstrating decompensated respiratory acidosis were no acutely concerning for life-threatening pathology. A CT scan was concerning for enlarging hematoma in the left lower quadrant versus potential abscess, but clinically is not red, warm, or obviously concerning for infection. I feel it is likely hematoma. No active extravasation noted. Ultimately, it is felt that the patient is appropriate for admission at this time for decompensated respiratory failure and general weakness precipitating fall. I personally performed critical care as documented. Syeda Juan, Critical Care <RACHEL Holcomb - Last Filed: 11/03/24 23:02> Critical Care Time Critical Care Time: Yes Attestation: On 11/03/24, the high probability of a clinically significant, sudden or life threatening deterioration of the following system(s) required my full and direct attention, intervention and personal management. The time I documented below is in addition to time spent performing reported procedures but includes the following listed in this critical care notation. Total Time Total Critical Care Time: 65 <Gaurav Marley MD - Last Filed: 11/03/24 16:53> Critical Care Time Critical Care Time: No
--- NOTE | 2024-11-03 14:15 | CT_ITS ---
FINAL REPORT TECHNIQUE: Oral and IV contrast enhanced exam This study was performed with techniques to keep radiation doses as low as reasonably achievable, (ALARA). Individualized dose reduction techniques using automated exposure control or adjustment of mA and/or kV according to the patient's size were employed. CLINICAL HISTORY: Expanding hematoma left lower abdominal wall COMPARISON: 08/21/2024 FINDINGS: CT ABDOMEN PELVIS WITH CONTRAST: Abdomen: Small bilateral pleural effusions are present as well as mild atelectasis. The liver, spleen, pancreas, and adrenal glands are unremarkable. The kidneys are unremarkable in appearance without evidence of hydronephrosis or nephrolithiasis. There is a distended gallbladder containing gallstones, similar in appearance to the prior CT. There is no free air or fluid in the abdomen. No evidence of bowel obstruction is noted. Pelvis: The appendix is not visualized. Pelvic bowel loops are unremarkable. There is a lipoma in the left lateral quadrant abdominal wall, seen on the prior exam. There is a new fluid collection within the area of stranding in the left lower lateral abdominal wall pannus measuring 8.4 cm in diameter, that may represent abscess or chronic hematoma. IMPRESSION: No acute intra-abdominal or pelvic abnormality identified. Small bilateral pleural effusions. Distended gallbladder with gallstones, also seen on the prior exam. New fluid collection within the area of stranding in the left lateral abdominal pannus, which appears chronic and likely represents a chronic hematoma or abscess. This measures 8.4 cm in diameter. Reviewed, Interpreted and Dictated by Emilee Hoffman MD Transcribed by Loraine Vasquez Authenticated and [facility]
--- NOTE | 2024-11-03 14:17 | CT_ITS ---
FINAL REPORT TECHNIQUE: Noncontrast exam. Coronal and sagittal images were obtained and reviewed. This study was performed with techniques to keep radiation doses as low as reasonably achievable, (ALARA). Individualized dose reduction techniques using automated exposure control or adjustment of mA and/or kV according to the patient''s size were employed. CLINICAL HISTORY: trauma, critical injury suspected. best images due to patient. patient kept moving COMPARISON: 07/26/2024 FINDINGS: There is significant motion artifact limiting exam quality. Moderate generalized atrophy is noted. Ventricles are normal. There is no hemorrhage. No mass effect is seen. Bone windows show no evidence of fracture. IMPRESSION: No gross intracranial abnormality. Reviewed, Interpreted and Dictated by Emilee Hoffman MD Transcribed by Columba Coulter Authenticated and [facility]
--- NOTE | 2024-11-03 14:17 | CT_ITS ---
FINAL REPORT CLINICAL HISTORY: trauma, critical injury suspected FINDINGS: CT THORACIC SPINE TECHNIQUE: Thin section axial CT with sagittal and coronal reconstructions This study was performed with techniques to keep radiation doses as low as reasonably achievable, (ALARA). Individualized dose reduction techniques using automated exposure control or adjustment of mA and/or kV according to the patient''s size were employed. FINDINGS: There is mild motion artifact. There are postoperative changes of spinal fixation from T5-T11. There is a lucent lesion of T12 which is likely a hemangioma. No fracture is present. Alignment is normal. No bony canal stenosis is seen. No significant disc abnormalities. Multiple healing posterior left rib fractures are noted. IMPRESSION: Negative CT evaluation of the thoracic spine for acute bony injury. Reviewed, Interpreted and Dictated by Emilee Hoffman MD Transcribed by Brenda Batista Authenticated and [facility]
--- NOTE | 2024-11-03 14:17 | CT_ITS ---
FINAL REPORT CLINICAL HISTORY: trauma, critical injury suspected COMPARISON: 07/26/2024 FINDINGS: CT LUMBAR SPINE TECHNIQUE: Thin section axial CT with sagittal and coronal reconstructions This study was performed with techniques to keep radiation doses as low as reasonably achievable, (ALARA). Individualized dose reduction techniques using automated exposure control or adjustment of mA and/or kV according to the patient's size were employed. FINDINGS: No fracture is present. Alignment is normal. No bony canal stenosis is seen. There is moderate multilevel degenerative disc disease with moderate to severe central canal stenosis at L3-4 and L4-5. IMPRESSION: No acute bony abnormality. Significant degenerative canal stenosis lower lumbar spine.. Reviewed, Interpreted and Dictated by Emilee Hoffman MD Transcribed by Columba Coulter Authenticated and [facility]
--- NOTE | 2024-11-03 14:17 | CT_ITS ---
FINAL REPORT CLINICAL HISTORY: trauma, critical injury suspected COMPARISON: 09/16/2023 FINDINGS: CT NECK ANGIO, WITHOUT AND WITH CONTRAST TECHNIQUE: Thin section axial CT with contrast with multiplanar 3D MIP reconstruction. This study was performed with techniques to keep radiation doses as low as reasonably achievable, (ALARA). Individualized dose reduction techniques using automated exposure control or adjustment of mA and/or kV according to the patient's size were employed. NASCET criteria and technique was utilized during interpretation. FINDINGS: Aortic arch: Mild fusiform aneurysm of the distal ascending aorta measuring 41 mm. The great vessels are widely patent. Right carotid: No significant stenosis is seen of the cervical common or internal carotid artery. Left carotid: Moderate stenosis proximal left ICA resulting in heavily calcified plaque disease with narrowing up to 50%. Vertebrals: Left vertebral artery is dominant. No significant stenosis is present. IMPRESSION: 50% left ICA stenosis. Reviewed, Interpreted and Dictated by Emilee Hoffman MD Transcribed by Columba Coulter Authenticated and [facility]
--- NOTE | 2024-11-03 14:17 | CT_ITS ---
FINAL REPORT CLINICAL HISTORY: trauma, critical injury suspected COMPARISON: 09/16/2023 FINDINGS: CTA HEAD TECHNIQUE: Thin section axial CT with contrast with 3D MIP reconstruction This study was performed with techniques to keep radiation doses as low as reasonably achievable, (ALARA). Individualized dose reduction techniques using automated exposure control or adjustment of mA and/or kV according to the patient's size were employed. FINDINGS: No aneurysm is seen. Major intracranial vessels are patent without significant stenosis. . IMPRESSION: Unremarkable Reviewed, Interpreted and Dictated by Emilee Hoffman MD Transcribed by Columba Coulter Authenticated and [facility]
--- NOTE | 2024-11-03 14:17 | CT_ITS ---
FINAL REPORT TECHNIQUE: CT examination of the pelvis was performed from the lower abdomen through the symphysis pubis. Multiplanar reconstructions were performed in the sagittal and coronal planes. This study was performed with techniques to keep radiation doses as low as reasonably achievable (ALARA). Individualized dose reduction techniques using automated exposure control or adjustment of mA and/or kV according to the patient's size were employed. CLINICAL HISTORY: trauma, critical injury suspected COMPARISON: None FINDINGS: CT PELVIS: CT examination of the pelvis was performed without intravenous contrast. There are remote fractures in the left pubic rami as well as pubic symphysis. Moderate degenerative changes present in the hips bilaterally as well as the sacroiliac joints. No acute fracture is identified. There is soft tissue density in the pannus of the lower abdomen, greater on the left than on the right, that may represent hematomas or chronic edema/cellulitis. IMPRESSION: No acute fracture identified. Reviewed, Interpreted and Dictated by Emilee Hoffman MD Transcribed by Loraine Vasquez Authenticated and [facility]
--- NOTE | 2024-11-03 14:17 | CT_ITS ---
FINAL REPORT TECHNIQUE: Thin section axial CT with sagittal reconstruction without contrast This study was performed with techniques to keep radiation doses as low as reasonably achievable, (ALARA). Individualized dose reduction techniques using automated exposure control or adjustment of mA and/or kV according to the patient's size were employed. CLINICAL HISTORY: trauma, critical injury suspected COMPARISON: 03/15/2024 FINDINGS: CT CERVICAL SPINE: No fracture is seen. There are changes of diffuse idiopathic skeletal hyperostosis. Alignment is normal. There is ankylosis of the C2-3 facets. Mild bony neuroforaminal narrowing is present. IMPRESSION: No acute bony abnormality is identified. Degenerative changes are present as described above. Reviewed, Interpreted and Dictated by Emilee Hoffman MD Transcribed by Loraine Vasquez Authenticated and [facility]
[2024-11-03 14:24] LABS: Albumin Level 3.7 g/dl (3.5-5.0); Chloride 90 mmol/L (98-107); Sodium 136 mmol/L (136-145)
[2024-11-03 14:27] LABS: Blood Urea Nitrogen 17 mg/dl (9-20); Creatinine Clearance Estimated 76 mL/min (50-200); Estimated Glomerular Filt Rate 46 ml/min (>60); GFR (African American) 56 ML/MIN (>60)
[2024-11-03 14:28] LABS: Alanine Aminotransferase 18 U/L (12-78); Albumin/Globulin Ratio 0.9 (1.1-1.8); Alkaline Phosphatase 280 U/L (38-126); Aspartate Amino Transferase 31 U/L (17-59); Bilirubin,Total 0.8 mg/dl (0.2-1.3); Calcium 8.4 mg/dl (8.4-10.2); Glucose 200 mg/dl (74-100); Total Protein,Serum 7.7 g/dl (6.3-8.2)
[2024-11-03 14:29] LABS: Basophils # 0.1 K/mm3 (0-0.2); Basophils % 0.7 % (0.1-2.0); Eosinophils # 0.3 K/mm3 (0.0-0.4); Eosinophils % 2.7 % (0.1-12.0); Hematocrit 43.9 % (42.0-52.0); Hemoglobin 13.6 g/dL (14.1-18.0); Lymphocytes # 0.9 K/mm3 (0.7-4.5); Lymphocytes % 7.5 % (10-50); Mean Corpuscular Hemoglobin 28.4 pg (27.0-31.2); Mean Corpuscular Volume 91.6 fl (80-94); Mean Platelet Volume 9.8 fl (7.4-10.4); Monocytes # 0.7 K/mm3 (0.1-1.0); Monocytes % 5.6 % (1.7-9.3); Neutrophils # 9.9 K/mm3 (1.8-7.8); Platelet Count 249 K/mm3 (142-424); Red Blood Count 4.79 M/mm3 (4.60-6.20); Red Cell Distribution Width 14.3 % (11.5-17.5); White Blood Count 11.9 K/mm3 (4.8-10.8)
--- NOTE | 2024-11-03 14:37 | PC.NURSE ---
requested pain meds before going to RAD
[2024-11-03 14:41] LABS: Carbon Dioxide 39 mmol/L (22.0-30.0)
[2024-11-03] MEDS: ACETAMINOPHEN 1,000MG/100ML VIAL 1000 MG IV (14:46)
[2024-11-03] MEDS: 0.9 % SODIUM CHLORIDE 1000ML 1,000 ML 999 ML IV (14:46)
[2024-11-03] MEDS: FENTANYL 100MCG/2ML VIAL 50 MCG IV (14:47)
[2024-11-03] MEDS: FENTANYL 100MCG/2ML VIAL 100 MCG IV (15:23)
[2024-11-03] MEDS: IOPAMIDOL-370 (76%);100ML BOTTLE 130 ML IV (15:26)
[2024-11-03] MEDS: 0.9 % SODIUM CHLORIDE 50 ML VIAL 100 ML IV (15:26)
[2024-11-03] MEDS: SODIUM CHLORIDE 0.9% 10ML SYR (RAD ONLY) 10 ML IV (15:26)
[2024-11-03 15:34] LABS: INR 0.98 (0.9-1.1); Prothrombin Time 10.8 seconds (9.2-12.1)
[2024-11-03] MEDS: NALOXONE 2MG/2ML SYRINGE 4 MG IV (15:44)
--- NOTE | 2024-11-03 16:09 | XR_ITS ---
PROCEDURE INFORMATION: Exam: XR Chest Exam date and time: 11/03/2024 4:18 PM Age: 69 years old Clinical indication: Other: Worsened resp failure TECHNIQUE: Imaging protocol: Radiologic exam of the chest. Views: 1 view. COMPARISON: CR XR CHEST PORTABLE 08/19/2024 6:11 AM FINDINGS: Lungs: Small lung volumes bilaterally. Questionable patchy airspace density is seen in the lateral right lower lobe which could represent atelectasis or developing pneumonia. This is a new finding since the previous chest radiograph from 08/19/2024. Pleural spaces: Unremarkable. No pleural effusion. No pneumothorax. Heart/Mediastinum: Questionable cardiomegaly versus artifact from the small lung volumes. Bones/joints: Posterior transpediculate fixation screws and rods are present in the thoracic spine. A questionable old fracture is seen in the left humeral head. IMPRESSION: 1. Small lung volumes bilaterally. 2. Questionable cardiomegaly versus artifact from the small lung volumes. 3. Questionable patchy airspace density is seen in the lateral right lower lobe which could represent atelectasis or developing pneumonia. This is a new finding since the previous chest radiograph from 08/19/2024. 4. Posterior transpediculate fixation screws and rods are present in the thoracic spine. 5. A questionable old fracture is seen in the left humeral head.
[2024-11-03 16:14] LABS: ABG HCO3 35.2 mmhg (22.0-26.0); ABG Oxygen Saturation 95 % (90-100); ABG PH 7.25 mmol/L (7.35-7.45); ABG PO2 74.7 mmhg (80-100); ABG TCO2 37.7 mmhg (23-27); Lactate Arterial 1.4 mmol/L (0.4-2.0)
[2024-11-03 16:16] LABS: ABG PCO2 81.8 mmhg (35.0-45.0)
--- NOTE | 2024-11-03 16:20 | PC.NURSE ---
Dr Juan notified of critical VBG
[2024-11-03] MEDS: diazePAM 10MG/2ML SYRINGE 2 MG IV (16:25)
[2024-11-03] MEDS: IPRATROPIUM/ALBUTEROL 3 ML NEB 9 ML IH (16:34)
--- NOTE | 2024-11-03 16:40 | PC.NURSE ---
RT at bedside place pt on bipap
--- NOTE | 2024-11-03 17:29 | PC.NURSE ---
PALLETISER OPERATOR NOTIFIED OF ADMISSION
--- NOTE | 2024-11-03 19:22 | PC.NURSE ---
rounded on pt at this time. pt and family member asleep in room. pt remains on bipap. VSS
--- NOTE | 2024-11-03 19:44 | PC.NURSE ---
Patient arrived to floor via stretcher from ED at 19:37.
--- NOTE | 2024-11-03 20:40 | P.HP_ITS ---
<Statement entered by Negrito Patricio MD - 11/04/24 21:35> Rounded on patient after nurse practitioner. Personally examined and interviewed patient. Agree with exam findings and care plan as documented. Stable on 3 L on morning rounds. Showing some improvement clinically. Afebrile. Surgery evaluating today for possible abscess. History of Present Illness *Admission Date: 11/03/24 *Reason for visit:: Fall *History of present illness: A 69-year-old male with a history of COPD on chronic oxygen (3 L nasal cannula), congestive heart failure (CHF), morbid obesity with alveolar hypoventilation, severe degenerative spine disease with multiple hardware surgeries, GERD, benign prostatic hyperplasia (BPH), and atrial flutter (diagnosed August 2024) presents to the emergency department on November 03, 2024, for evaluation of a left lower abdominal wall hematoma with new pain and a recent fall. He initially developed the hematoma while on Lovenox, which stabilized under general surgery observation without intervention. It was painless until last night when pain increased, prompting home health to advise ED evaluation. No new trauma, fever, redness, or induration noted. En route to the hospital, he fell backwards while walking to the car, striking his back, neck, and head. Per his daughter, he did not lose consciousness but appeared disoriented. He was transported to the ED without further incidents. On arrival, vital signs showed hypotension (BP 97/41 mmHg), bradycardia (HR 60 bpm), respiratory rate 18 breaths/min, SpO2 96% on 3 L nasal cannula (baseline), and afebrile. Physical exam revealed a restless, slightly agitated, morbidly obese male, oriented only to person and place, not circumstance, with distractibility due to neck pain. He has tenderness in the cervical and thoracic paraspinous musculature without bony deformity, contusions, or abrasions, and moves all four extremities and head/neck spontaneously. Pupils are equal and reactive to light, breath sounds show late end-expiratory wheezes without increased work of breathing, and the abdomen is soft with an 8-10 cm left lower quadrant hematoma (firm collar, soft center, tender, no redness or firmness). Post-imaging (CT trauma scans), he became dusky, obtunded, with shallow susan thing and SpO2 22%; interventions included jaw thrust, [id number] ventilation, Narcan (2 mg in 1 mg intervals), and BiPAP, improving responsiveness but not to baseline. Labs showed WBC 11.9 x10?/?L (Neut # 9.9), Hgb 13.6 g/dL, INR 0.98, Cr 1.5 mg/dL (GFR 46), glucose 200 mg/dL, alk phos 280 U/L, NT-pro-BNP 2130 pg/mL. ABG indicated pH 7.25, pCO2 81.8 mmHg, pO2 74.7 mmHg, O2 sat 95%, HCO3 35.2 mmol/L, base excess 8.0, lactate 1.4 mmol/L. CT abdomen/pelvis (preliminary) showed no extravasation into the hematoma or acute processes. Initial interventions included a crystalloid bolus, acetaminophen, and fentanyl (50 mcg, then 100 mcg for imaging), with Narcan and BiPAP added post-respiratory depression. [facility] Disclaimer: The information contained in this section may have been updated after the patient was seen, as this information can be updated by other users. Medical History HLD (hyperlipidemia) GERD (gastroesophageal reflux disease) CAD (coronary artery disease) CHF (congestive heart failure) Pneumonia Pleural effusion, bilateral Acute respiratory failure with hypoxia and hypercarbia Hypertension Chronic venous stasis dermatitis of both lower extremities HIV (human immunodeficiency virus infection) Diabetes mellitus, type 2 Closed fracture of neck of left humerus GI bleed due to NSAIDs Morbid obesity with BMI of 45.0-49.9, adult Family History Other No significant family history Social History Smoking Status: Unknown if ever smoked second hand exposure: No alcohol intake: never substance use type: denies use current occupational status: retired Travel in the last 8 weeks: None household members: spouse and family housing: house current occupational exposures/hazards: No caffeine: Yes Have you lived/traveled outside [place] in past 30 days?: No Contact w/someone who lives/traveled outside US past 30 days?: No Exposure to someone with infectious disease in past 14 days?: No Do you have a fever (greater than 100.4 F or 38 C)?: No Have you tested positive for COVID-19: No Exposed to someone with COVID-19 in past 14 days?: No Do you have a sore throat?: No Do you have a cough?: No Do you have any weakness?: No Are you experiencing any nausea/vomitting?: No Do you have any diarrhea?: No Are you experiencing any unusual bleeding?: No Do you have any muscle aches/pain?: No Do you have any abdominal pain?: No Are you experiencing loss of taste or smell?: No Other Medical History Have you received the Flu Vaccine for this season: Yes Have you received the Pneumonia Vaccine: Yes Review of Systems Review of Systems Review of systems (narrative): 13 point review of systems negative except as listed in HPI Meds Home Medications and Allergies Home Medications ?Medication ?Instructions ?Recorded ?Confirmed ?Type finasteride 5 mg tablet 5 mg PO DAILY 11/13/18 11/04/24 History tamsulosin 0.4 mg capsule 0.4 mg PO HS 01/06/20 11/04/24 History methocarbamol 750 mg tablet 750 mg PO Q6HP PRN Muscle Spasm 11/26/20 11/04/24 History cholecalciferol (vitamin D3) 25 25 mcg PO DAILY 12/30/20 11/04/24 History mcg (1,000 unit) capsule venlafaxine 150 mg 150 mg PO DAILY 09/16/23 11/04/24 History capsule,extended release 24 hr (Effexor XR) bumetanide 2 mg tablet 2 mg PO BID 08/19/24 11/04/24 History tramadol 50 mg tablet 100 mg PO Q6HP PRN Moderate Pain 08/19/24 11/04/24 History (Scale Score 5-6) albuterol sulfate 90 mcg/actuation 1 inh inhalation QIDP PRN 08/20/24 11/04/24 History aerosol inhaler Shortness Of Breath sitagliptin 100 mg tablet 100 mg PO DAILY 08/20/24 11/04/24 History gabapentin 300 mg capsule 600 mg (2 x 300 mg) PO HS 30 days 08/23/24 11/04/24 Rx #0 caps pantoprazole 40 mg tablet,delayed 40 mg PO DAILY 30 days #0 tabs 08/23/24 11/04/24 Rx release digoxin 125 mcg (0.125 mg) tablet 125 mcg PO DAILY #90 tabs 09/16/24 11/04/24 Rx metoprolol tartrate 50 mg tablet 50 mg PO BID #60 tabs 09/16/24 11/04/24 Rx aspirin 81 mg capsule 81 mg PO DAILY 11/04/24 11/04/24 History bictegravir 50 mg-emtricitabine 1 tab PO DAILY 11/04/24 11/04/24 History 200 mg-tenofovir alafenam 25 mg tablet (Biktarvy) lidocaine 5 % topical patch 2 patch topical DAILY 11/04/24 11/04/24 History olodaterol 2.5 mcg/actuation mist 2 puff inhalation DAILY 11/04/24 11/04/24 History for inhalation New Prescriptions to Start Prescriptions: Allergies Allergy/AdvReac Type Severity Reaction Status Date / Time SANDRA Inhibitors Allergy Unknown Unknown Verified 09/16/24 08:44 allergy reaction clofibrate Allergy Unknown Unknown Verified 09/16/24 08:44 allergy reaction enalapril Allergy Unknown Unknown Verified 09/16/24 08:44 allergy reaction erythromycin base Allergy Unknown Unknown Verified 09/16/24 08:44 allergy reaction gemfibrozil Allergy Unknown Unknown Verified 09/16/24 08:44 allergy reaction hepatitis A virus vaccine Allergy Unknown Unknown Verified 09/16/24 08:44 allergy reaction hydralazine Allergy Unknown Unknown Verified 09/16/24 08:44 allergy reaction Macrolide Antibiotics Allergy Unknown Unknown Verified 09/16/24 08:44 allergy reaction pravastatin (From Pravachol) Allergy Unknown Unknown Verified 09/16/24 08:44 allergy reaction Ezepvdh-GOM-EuX Reductase Allergy Unknown Unknown Verified 09/16/24 08:44 Inhibitor (Oimbzzn-Vfe-Vuw allergy Reductase Inhibitor) reaction Exam Data for Last 24 hours Vital signs and Labs for Last 24 Hours: Temp Pulse Resp BP Pulse Ox O2 Del Method O2 Flow Rate 98.2 F 59 L 15 134/71 95 BiPAP 3 11/03/24 19:05 11/03/24 19:05 11/03/24 19:05 11/03/24 19:05 11/03/24 18:00 11/03/24 19:05 11/03/24 13:40 Laboratory Results - last 24 hr 11/03/24 14:00: WBC 11.9 H, RBC 4.79, Hgb 13.6 L, Hct 43.9, MCV 91.6, MCH 28.4, MCHC 31.0 L, RDW 14.3, Plt Count 249, MPV 9.8, Neut % (Auto) 83.0 H, Lymph % (Auto) 7.5 L, [place] % (Auto) 5.6, Eos % (Auto) 2.7, Baso % (Auto) 0.7, Neut # (Auto) 9.9 H, Lymph # (Auto) 0.9, [place] # (Auto) 0.7, Eos # (Auto) 0.3, Baso # (Auto) 0.1, PT 10.8, INR 0.98, Sodium 136, Potassium 4.0, Chloride 90 L, Carbon Dioxide 39 H, Anion Gap 11.0, BUN 17, Creatinine 1.50 H, Estimated Creat Clear 76, Estimated GFR 46 L, Est GFR ( Amer) 56 L, Glucose 200 H, Calcium 8.4, Total Bilirubin 0.8, AST 31, ALT 18, Alkaline Phosphatase 280 H, Total Protein 7.7, Albumin 3.7, Globulin 4.0 H, Albumin/Globulin Ratio 0.9 L 11/03/24 16:09: ABG pH 7.25 L, ABG pCO2 81.8 H, ABG pO2 74.7 L, ABG HCO3 35.2 H, ABG Total CO2 37.7 H, ABG O2 Saturation 95, ABG Base Excess 8.0 H, ABG Lactate 1.4 I & O for Last 24 hours: Intake & Output 10/31/24 11/01/24 11/02/24 11/03/24 23:59 23:59 23:59 23:59 Weight 117.934 kg Constitutional Constitutional: morbidly obese and chronically ill appearing *Routine HEENT Exam Head: Present normocephalic Eye: Present EOMI and PERRL ENT: Present mucous membranes moist *Routine Neck Exam Neck: Present supple; Absent lymphadenopathy *Routine Respiratory Exam Respiratory: Present CTA bilaterally *Routine Cardiovascular Exam Cardiovascular: Present RRR *Routine Abdominal Exam Abdominal: Present soft, normoactive bowel sounds, obese, mass (Left lower quadrant) and hernia; Absent tenderness *Routine Rectal Exam Rectal:: deferred *Routine Genitalia Exam Genitalia:: deferred *Routine Extremities Exam Extremities: Absent cyanosis, clubbing or edema *Routine Skin Exam Skin: Present warm and lesions; Absent rash Comments: Bilateral lower extremity stasis ulcers with scabbing and mild erythema *Routine Neurological Exam Neurological: Present alert, oriented X3 and altered mental status (Post sedation) Assessment and Plan *Assessment and plan (1) Encephalopathy acute: Status: Acute Category: Medical Code(s): G93.40 - Encephalopathy, unspecified (2) Acute on chronic respiratory failure with hypoxia and hypercapnia: Status: Acute Category: Medical Code(s): J96.21 - Acute and chronic respiratory failure with hypoxia; J96.22 - Acute and chronic respiratory failure with hypercapnia (3) Type 2 diabetes mellitus with vascular disease: Status: Chronic Category: Medical Code(s): E11.59 - Type 2 diabetes mellitus with other circulatory complications (4) Atrial fibrillation: Status: Acute Category: Medical Code(s): I48.91 - Unspecified atrial fibrillation (5) Chronic diastolic CHF (congestive heart failure): Status: Chronic Category: Medical Code(s): I50.32 - Chronic diastolic (congestive) heart failure (6) Hematoma: Problem Comment: Anticoagulation is being withheld due to the hematoma. Status: Acute Category: Medical Code(s): T14.8XXA - Other injury of unspecified body region, initial encounter (7) HIV disease: Status: Chronic Category: Medical Code(s): B20 - Human immunodeficiency virus [HIV] disease (8) Hypertension: Status: Acute Category: Medical Code(s): I10 - Essential (primary) hypertension (9) Bradycardia: Status: Acute Category: Medical Code(s): R00.1 - Bradycardia, unspecified (10) Syncope: Status: Acute Category: Medical Code(s): R55 - Syncope and collapse Plan * Left Lower Abdominal Wall Hematoma with New Pain * Left lower quadrant hematoma (8-10 cm), previously stable post-Lovenox, now painful since last night, tender, no redness/induration. CT prelim: no extravasation. PMH: Atrial flutter, prior Lovenox. Differential: Hematoma expansion (coagulopathy, trauma), inflammation (no infection signs), abscess (less likely?no fever/redness). * Surgical consult for evaluation (expansion vs. observation); urgent if enlarging or infected. * Hold anticoagulation (Lovenox discontinued, INR 0.98); monitor Hgb q12h (13.6 baseline). * Acetaminophen 650 mg PO q6h for pain; avoid narcotics (respiratory depression risk). * Acute Fall with Neck and Back Pain * Fall backwards striking head, neck, back; no LOC, disoriented post-fall, neck/thoracic tenderness, moves all extremities. CT prelim: no acute injury. PMH: Spine disease, dementia risk (disorientation). Differential: Soft tissue injury, occult fracture (spine hardware), syncope (hypotension?BP 97/41), intracranial injury (disorientation). * Await final CT head/C-spine read for fracture/bleed. * Neuro checks q4h for worsening confusion, focal deficits; ortho consult if fracture. * Acetaminophen 650 mg PO q6h; fentanyl avoided post-depression (Narcan given). * Collar/brace if spinal injury confirmed; PT eval if admitted. * Decompensated Respiratory Failure (Acute on Chronic) * Post-imaging: dusky, obtunded, SpO2 22%, shallow breathing; ABG: pH 7.25, pCO2 81.8, pO2 74.7 (hypercapnic failure). Improved with jaw thrust, [id number], Narcan (2 mg), BiPAP. PMH: COPD (3 L O2), obesity hypoventilation, CHF. Differential: Opioid-induced (fentanyl 150 mcg), positioning (flat for CT), COPD/CHF exacerbation, sepsis (WBC 11.9). * BiPAP continued (e.g., IPAP 12, EPAP 6, titrate to pCO2 <60); wean as tolerated. * Repeat ABG q4h; goal pH >7.30, pCO2 <70. * Avoid narcotics (fentanyl caused depression); Valium 2 mg IV given, tolerated. * Pulmonology consult for BiPAP management, chronic O2 adjustment. * Congestive Heart Failure (Stable, Possible Exacerbation) * NT-pro-BNP 2130, BP 97/41, HR 60, SpO2 96% on 3 L, late wheezes, no rales. PMH: CHF, atrial flutter. Differential: Stable CHF, mild exacerbation (hypotension, hypoxia), opioid effect (fentanyl). * Fluid bolus (500 mL NS) given; restrict to 1.5 L/day (hypoventilation risk); monitor I/Os, weights. * Telemetry 24 hours; EKG for flutter rate, ischemia. * Cardiology consult if TTE shows worsening function or HR <50 persists. * Altered Mental Status (Encephalopathy) * Disoriented (person/place only), restless, agitated; improved post-Narcan but not baseline. PMH: Dementia, COPD, CHF. Differential: Hypoxic encephalopathy (SpO2 22%), opioid effect (fentanyl), metabolic (glucose 200), stroke (fall), sepsis (WBC 11.9). * Neuro checks q4h; CT head final read for bleed/stroke. * Possibly due to oversedation * Mild Renal Dysfunction * Cr 1.5, GFR 46, BUN 17. PMH: CHF, BPH. Differential: Chronic CKD (CHF), acute worsening (hypotension, sepsis). * Recheck CMP q12h; monitor urine output (>0.5 mL/kg/h). * Avoid nephrotoxins * Atrial Flutter (Stable) * HR 60, BP 97/41, diagnosed August 2024. Differential: Rate-controlled flu tter, hypotension-related (volume, opioids), new arrhythmia. * EKG to confirm flutter rate; compare to prior. * Continue home rate control adjust per cardiology. * Telemetry 24 hours; monitor for bradycardia (<50). * Disposition * Hematoma pain, fall, respiratory failure (BiPAP), encephalopathy, CHF risks require admission. * Admit to medicine with telemetry (ICU if BiPAP fails) for respiratory support, imaging finalization, pain management. * Discharge when SpO2 >94% on 3 L, pain controlled, oriented to baseline, hematoma stable.
[2024-11-03 21:03] LABS: Lactate Venous 1.7 mmol/L (0.4-2.0); VBG Base Excess 4.7 mmol/L (-2.4-2.3); VBG HCO3 29.2 mmol/L (23-30); VBG Oxygen Saturation 97.2 % (50-70); VBG PCO2 46.4 mmol/L (35-51); VBG PH 7.42 mmol/L (7.31-7.41); VBG PO2 80.4 mmol/L (28-40); VBG Total CO2 30.6 mmol/L (23-27)
[2024-11-03 21:41] LABS: NT Pro Brain Natriuretic Pep. 2130 pg/mL (0-125)
[2024-11-03 22:26] LABS: Adenovirus,PCR Not Detected (NotDetected); Bordetella Pertussis Not Detected (NotDetected); Chlamydophila Pneumoniae, PCR Not Detected (NotDetected); Coronavirus 19, PCR Not Detected (NotDetected); Coronavirus 229E Not Detected (NotDetected); Coronavirus NL63 Not Detected (NotDetected); Coronavirus OC43 Not Detected (NotDetected); Coronovirus HKU1,PCR Not Detected (NotDetected); Human Metapneumovirus Not Detected (NotDetected); Influenza A, PCR Not Detected (NotDetected); Influenza AH1, 2009 Not Detected (NotDetected); Influenza AH1, PCR Not Detected (NotDetected); Influenza AH3,PCR Not Detected (NotDetected); Influenza B, PCR Not Detected (NotDetected); Mycoplasma Pneumoniae, PCR Not Detected (NotDetected); Parainfluenza 1, PCR Not Detected (NotDetected); Parainfluenza 2, PCR Not Detected (NotDetected); Parainfluenza 3, PCR Not Detected (NotDetected); Parainfluenza 4, PCR Not Detected (NotDetected); Respiratory Syncytial Virus Not Detected (NotDetected); Rhinovirus/Enterovirus Not Detected (NotDetected)
[2024-11-03 22:59] LABS: POC Glucose,Bedside 147 (70-110)
[2024-11-04] VITALS (14 sets, daily range): BP systolic 124–167; BP diastolic 52–86; PULSE 60–82; RESP 14–20; TEMP 36.7–37.4; O2SAT 92–96; BMI 36.1
[2024-11-04] MEDS: IPRATROPIUM/ALBUTEROL 3 ML NEB IH (03:57)
[2024-11-04] MEDS: TRAMADOL 50MG TABLET 100 MG PO ×4 (03:59→23:36)
--- NOTE | 2024-11-04 06:00 | XR_ITS ---
PROCEDURE INFORMATION: Exam: XR Chest Exam date and time: 11/04/2024 5:31 AM Age: 69 years old Clinical indication: Other: Effusions TECHNIQUE: Imaging protocol: Radiologic exam of the chest. Views: 1 view. COMPARISON: CR XR CHEST PORTABLE 11/03/2024 4:18 PM FINDINGS: Lungs: Lungs clear. Pleural spaces: Unremarkable. No pleural effusion. No pneumothorax. Heart/Mediastinum: . Stable cardiomegaly. Bones/joints: Postsurgical change spine IMPRESSION: Stable cardiomegaly. No acute infiltrate.
[2024-11-04 06:12] LABS: Basophils # 0.1 K/mm3 (0-0.2); Basophils % 0.3 % (0.1-2.0); Eosinophils # 0.1 K/mm3 (0.0-0.4); Eosinophils % 0.6 % (0.1-12.0); Hematocrit 41.1 % (42.0-52.0); Hemoglobin 12.8 g/dL (14.1-18.0); Lymphocytes # 1.2 K/mm3 (0.7-4.5); Lymphocytes % 8.2 % (10-50); Mean Corpuscular HGB Conc 31.1 g/dL (31.8-35.4); Mean Corpuscular Hemoglobin 28.6 pg (27.0-31.2); Mean Corpuscular Volume 91.7 fl (80-94); Mean Platelet Volume 9.5 fl (7.4-10.4); Monocytes # 1.2 K/mm3 (0.1-1.0); Monocytes % 7.9 % (1.7-9.3); Neutrophils # 12.4 K/mm3 (1.8-7.8); Neutrophils % 82.5 % (37.0-80.0); Platelet Count 223 K/mm3 (142-424); Red Blood Count 4.48 M/mm3 (4.60-6.20); Red Cell Distribution Width 14.6 % (11.5-17.5); White Blood Count 15.1 K/mm3 (4.8-10.8)
--- NOTE | 2024-11-04 06:17 | PC.NURSE ---
Patient is now alert and oriented. On arrival patient only would respond to name, but became more alert throughout night. Daughter remained at bedside throughout night and answered medication list questions. Home meds locked in drawer. Patient weaned off of BiPAP after gas result per [place], 3L NC at this time, baseline home O2, O2 sat >90%. Lung sounds clear. Patient was incontinent using purewick beginning of shift, now is using urinal. Hematoma to left lower quadrant, no redness noted. Lipoma to right lower quadrant baseline for patient. Redness and scabs to BLE. Patient has complained of muscle spasms multiple times throughout shift, treated per Bull JEFFRIES APRN aware of complaints, stated due to medications in ER watch for sedation. Bed alarm on. Call light in reach.
[2024-11-04 06:25] LABS: MANUAL DIFFERENTIAL MANUAL DIFFERENTIAL (MANUAL DIFF)
[2024-11-04 06:42] LABS: Blood Urea Nitrogen 20 mg/dl (9-20); Calcium 8.2 mg/dl (8.4-10.2); Chloride 94 mmol/L (98-107); Creatinine Clearance Estimated 103 mL/min (50-200); Estimated Glomerular Filt Rate 66 ml/min (>60); GFR (African American) 80 ML/MIN (>60); Glucose 172 mg/dl (74-100); Potassium 4.4 mmoL/L (3.5-5.1); Sodium 136 mmol/L (136-145)
[2024-11-04 06:50] LABS: Anion Gap 9.4 mEq/L (5-15); Carbon Dioxide 37 mmol/L (22.0-30.0)
[2024-11-04 07:37] LABS: INR 1.02 (0.9-1.1); Prothrombin Time 11.2 seconds (9.2-12.1)
--- NOTE | 2024-11-04 08:39 | EXP.SURG.CON ---
History of Present Illness *Admission Date: 11/03/24 *Reason for visit:: Possible infected hematoma *History of present illness: This is a 69-year-old gentleman seen in consultation from the primary service for evaluation regarding possible infected pannicular hematoma. Please see HPI forwarded from admission H&P below. He was seen in consultation during a prior admission (August 2024) regarding a similar complaint. Reportedly, the prior hematoma resolved and a recurrent hematoma developed over the last day or so . Forwarded from admission H&P: A 69-year-old male with a history of COPD on chronic oxygen (3 L nasal cannula), congestive heart failure (CHF), morbid obesity with alveolar hypoventilation, severe degenerative spine disease with multiple hardware surgeries, GERD, benign prostatic hyperplasia (BPH), and atrial flutter (diagnosed August 2024) presents to the emergency department on November 03, 2024, for evaluation of a left lower abdominal wall hematoma with new pain and a recent fall. He initially developed the hematoma while on Lovenox, which stabilized under general surgery observation without intervention. It was painless until last night when pain increased, prompting home health to advise ED evaluation. No new trauma, fever, redness, or induration noted. En route to the hospital, he fell backwards while walking to the car, striking his back, neck, and head. Per his daughter, he did not lose consciousness but appeared disoriented. He was transported to the ED without further incidents. On arrival, vital signs showed hypotension (BP 97/41 mmHg), bradycardia (HR 60 bpm), respiratory rate 18 breaths/min, SpO2 96% on 3 L nasal cannula (baseline), and afebrile. Physical exam revealed a restless, slightly agitated, morbidly obese male, oriented only to person and place, not circumstance, with distractibility due to neck pain. He has tenderness in the cervical and thoracic paraspinous musculature without bony deformity, contusions, or abrasions, and moves all four extremities and head/neck spontaneously. Pupils are equal and reactive to light, breath sounds show late end-expiratory wheezes without increased work of breathing, and the abdomen is soft with an 8-10 cm left lower quadrant hematoma (firm collar, soft center, tender, no redness or firmness). Post-imaging (CT trauma scans), he became dusky, obtunded, with shallow breathing and SpO2 22%; interventions included jaw thrust, xuu-ppozl-vfdc ventilation, Narcan (2 mg in 1 mg intervals), and BiPAP, improving responsiveness but not to baseline. Labs showed WBC 11.9 x10?/?L (Neut # 9.9), Hgb 13.6 g/dL, INR 0.98, Cr 1.5 mg/dL (GFR 46), glucose 200 mg/dL, alk phos 280 U/L, NT-pro-BNP 2130 pg/mL. ABG indicated pH 7.25, pCO2 81.8 mmHg, pO2 74.7 mmHg, O2 sat 95%, HCO3 35.2 mmol/L, base excess 8.0, lactate 1.4 mmol/L. CT abdomen/pelvis (preliminary) showed no extravasation into the hematoma or acute processes. Initial interventions included a crystalloid bolus, acetaminophen, and fentanyl (50 mcg, then 100 mcg for imaging), with Narcan and BiPAP added post-respiratory depression. PFSH PFSH Disclaimer: The information contained in this section may have been updated after the patient was seen, as this information can be updated by other users. Medical History HLD (hyperlipidemia) GERD (gastroesophageal reflux disease) CAD (coronary artery disease) CHF (congestive heart failure) Pneumonia Pleural effusion, bilateral Acute respiratory failure with hypoxia and hypercarbia Hypertension Chronic venous stasis dermatitis of both lower extremities HIV (human immunodeficiency virus infection) Diabetes mellitus, type 2 Closed fracture of neck of left humerus GI bleed due to NSAIDs Morbid obesity with BMI of 45.0-49.9, adult Family History Other No significant family history Social History Smoking Status: Unknown if ever smoked second hand exposure: No alcohol intake: never substance use type: denies use current occupational status: retired Travel in the last 8 weeks: None household members: spouse and family housing: house current occupational exposures/hazards: No caffeine: Yes Have you lived/traveled outside [place] in past 30 days?: No Contact w/someone who lives/traveled outside US past 30 days?: No Exposure to someone with infectious disease in past 14 days?: No Do you have a fever (greater than 100.4 F or 38 C)?: No Have you tested positive for COVID-19: No Exposed to someone with COVID-19 in past 14 days?: No Do you have a sore throat?: No Do you have a cough?: No Do you have any weakness?: No Are you experiencing any nausea/vomitting?: No Do you have any diarrhea?: No Are you experiencing any unusual bleeding?: No Do you have any muscle aches/pain?: No Do you have any abdominal pain?: No Are you experiencing loss of taste or smell?: No Meds Home Medications and Allergies Home Medications ?Medication ?Instructions ?Recorded ?Confirmed ?Type finasteride 5 mg tablet 5 mg PO DAILY 11/13/18 11/04/24 History tamsulosin 0.4 mg capsule 0.4 mg PO HS 01/06/20 11/04/24 History methocarbamol 750 mg tablet 750 mg PO Q6HP PRN Muscle Spasm 11/26/20 11/04/24 History cholecalciferol (vitamin D3) 25 25 mcg PO DAILY 12/30/20 11/04/24 History mcg (1,000 unit) capsule venlafaxine 150 mg 150 mg PO DAILY 09/16/23 11/04/24 History capsule,extended release 24 hr (Effexor XR) bumetanide 2 mg tablet 2 mg PO DAILY 08/19/24 11/04/24 History tramadol 50 mg tablet 100 mg PO Q6HP PRN Moderate Pain 08/19/24 11/04/24 History (Scale Score 5-6) albuterol sulfate 90 mcg/actuation 1 inh inhalation QIDP PRN 08/20/24 11/04/24 History aerosol inhaler Shortness Of Breath sitagliptin 100 mg tablet 100 mg PO DAILY 08/20/24 11/04/24 History pantoprazole 40 mg tablet,delayed 40 mg PO DAILY 30 days #0 tabs 08/23/24 11/04/24 Rx release digoxin 125 mcg (0.125 mg) tablet 125 mcg PO DAILY #90 tabs 09/16/24 11/04/24 Rx aspirin 81 mg capsule 81 mg PO DAILY 11/04/24 11/04/24 History bictegravir 50 mg-emtricitabine 1 tab PO DAILY 11/04/24 11/04/24 History 200 mg-tenofovir alafenam 25 mg tablet (Biktarvy) gabapentin 300 mg capsule 600 mg PO DAILY 11/04/24 11/04/24 History gabapentin 300 mg capsule 900 mg PO 1700,2100 11/04/24 11/04/24 History lidocaine 5 % topical patch 2 patch topical DAILY 11/04/24 11/04/24 History metoprolol tartrate 100 mg tablet 50 mg PO BID 11/04/24 11/04/24 History tiotropium 2.5 mcg-olodaterol 2.5 2 puff inhalation DAILY 11/04/24 11/04/24 History mcg/actuation mist for inhalation (Stiolto Respimat) New Prescriptions to Start Prescriptions: Allergies Allergy/AdvReac Type Severity Reaction Status Date / Time SANDRA Inhibitors Allergy Unknown Unknown Verified 09/16/24 08:44 allergy reaction clofibrate Allergy Unknown Unknown Verified 09/16/24 08:44 allergy reaction enalapril Allergy Unknown Unknown Verified 09/16/24 08:44 allergy reaction erythromycin base Allergy Unknown Unknown Verified 09/16/24 08:44 allergy reaction gemfibrozil Allergy Unknown Unknown Verified 09/16/24 08:44 allergy reaction hepatitis A virus vaccine Allergy Unknown Unknown Verified 09/16/24 08:44 allergy reaction hydralazine Allergy Unknown Unknown Verified 09/16/24 08:44 allergy reaction Macrolide Antibiotics Allergy Unknown Unknown Verified 09/16/24 08:44 allergy reaction pravastatin (From Pravachol) Allergy Unknown Unknown Verified 09/16/24 08:44 allergy reaction Rhnopdq-GUA-JcX Reductase Allergy Unknown Unknown Verified 09/16/24 08:44 Inhibitor (Vgewxuq-Aci-Iap allergy Reductase Inhibitor) reaction Exam (Inpt) Vital signs and Labs for Last 24 Hours: Temp Pulse Resp BP Pulse Ox O2 Del Method O2 Flow Rate 98.1 F 80 14 128/65 94 L Nasal Cannula 3 11/04/24 04:00 11/04/24 08:00 11/04/24 06:00 11/04/24 06:00 11/04/24 06:00 11/04/24 08:00 11/04/24 08:00 FiO2 30 11/03/24 19:45 Laboratory Results - last 24 hr 11/03/24 14:00: WBC 11.9 H, RBC 4.79, Hgb 13.6 L, Hct 43.9, MCV 91.6, MCH 28.4, MCHC 31.0 L, RDW 14.3, Plt Count 249, MPV 9.8, Neut % (Auto) 83.0 H, Lymph % (Auto) 7.5 L, Clayton % (Auto) 5.6, Eos % (Auto) 2.7, Baso % (Auto) 0.7, Neut # (Auto) 9.9 H, Lymph # (Auto) 0.9, Clayton # (Auto) 0.7, Eos # (Auto) 0.3, Baso # (Auto) 0.1, PT 10.8, INR 0.98, Sodium 136, Potassium 4.0, Chloride 90 L, Carbon Dioxide 39 H, Anion Gap 11.0, BUN 17, Creatinine 1.50 H, Estimated Creat Clear 76, Estimated GFR 46 L, Est GFR ( Amer) 56 L, Glucose 200 H, Calcium 8.4, Total Bilirubin 0.8, AST 31, ALT 18, Alkaline Phosphatase 280 H, Total Protein 7.7, Albumin 3.7, Globulin 4.0 H, Albumin/Globulin Ratio 0.9 L 11/03/24 16:09: ABG pH 7.25 L, ABG pCO2 81.8 H, ABG pO2 74.7 L, ABG HCO3 35.2 H, ABG Total CO2 37.7 H, ABG O2 Saturation 95, ABG Base Excess 8.0 H, ABG Lactate 1.4 11/03/24 19:55: VBG pH 7.42 H, VBG pCO2 46.4, VBG pO2 80.4 H, VBG HCO3 29.2, VBG Total CO2 30.6 H, VBG O2 Saturation 97.2 H, VBG Base Excess 4.7 H, VBG Lactic Acid 1.7 11/03/24 20:58: NT-Pro-B Natriuret Pep 2130 H 11/03/24 22:21: POC Glucose 147 H 11/03/24 : Chlamy pneumoniae PCR Not detected, Adenovirus (PCR) Not detected, B. pertussis DNA (PCR) Not detected, Coronavirus OC43 (PCR) Not detected, Coronavirus HKU1 (PCR) Not detected, Coronavirus 229E (PCR) Not detected, SARS-CoV-2 (PCR) Not detected, Coronavirus NL63 (PCR) Not detected, Human Metapneumovir PCR Not detected, Influenza A (H1) PCR Not detected, Influ A (H1N1/09) PCR Not detected, Influenza A (H3) PCR Not detected, Influenza Type A (PCR) Not detected, Influenza Type B (PCR) Not detected, M. pneumoniae (PCR) Not detected, Parainfluenza 1 (PCR) Not detected, Parainfluenza 2 (PCR) Not detected, Parainfluenza 3 (PCR) Not detected, Parainfluenza 4 (PCR) Not detected, RSV (PCR) Not detected, Entero/Rhino (PCR) Not detected 11/04/24 05:35: WBC 15.1 H D, RBC 4.48 L, Hgb 12.8 L, Hct 41.1 L, MCV 91.7, MCH 28.6, MCHC 31.1 L, RDW 14.6, Plt Count 223, MPV 9.5, Neut % (Auto) 82.5 H, Lymph % (Auto) 8.2 L, Clayton % (Auto) 7.9, Eos % (Auto) 0.6, Baso % (Auto) 0.3, Neut # (Auto) 12.4 H, Lymph # (Auto) 1.2, Clayton # (Auto) 1.2 H, Eos # (Auto) 0.1, Baso # (Auto) 0.1, PT 11.2, INR 1.02, Sodium 136, Potassium 4.4, Chloride 94 L, Carbon Dioxide 37 H, Anion Gap 9.4, BUN 20, Creatinine 1.10 D, Estimated Creat Clear 103, Estimated GFR 66, Est GFR ( Amer) 80 D, Glucose 172 H, Calcium 8.2 L I & O for Labs for Last 24 Hours: Intake & Output 11/01/24 11/02/24 11/03/24 11/04/24 11:59 11:59 11:59 11:59 Intake Total 180 / 180 Output Total 500 / 500 Balance -320 / -320 Weight 257 lb 11.526 oz Constitutional: no acute distress Respiratory: Absent respiratory distress Cardiac: Absent Tachycardia Comments:: Significant soft tissue swelling with overlying hematoma noted along left lower quadrant/groin pannus margin. Tenderness to palpation. No evidence of erythema/spreading cellulitis. Results Labs 11/04/24 05:35 11/04/24 05:35 Labs: Laboratory Results - last 24 hr 11/03/24 14:00: WBC 11.9 H, RBC 4.79, Hgb 13.6 L, Hct 43.9, MCV 91.6, MCH 28.4, MCHC 31.0 L, RDW 14.3, Plt Count 249, MPV 9.8, Neut % (Auto) 83.0 H, Lymph % (Auto) 7.5 L, Clayton % (Auto) 5.6, Eos % (Auto) 2.7, Baso % (Auto) 0.7, Neut # (Auto) 9.9 H, Lymph # (Auto) 0.9, Clayton # (Auto) 0.7, Eos # (Auto) 0.3, Baso # (Auto) 0.1, PT 10.8, INR 0.98, Sodium 136, Potassium 4.0, Chloride 90 L, Carbon Dioxide 39 H, Anion Gap 11.0, BUN 17, Creatinine 1.50 H, Estimated Creat Clear 76, Estimated GFR 46 L, Est GFR ( Amer) 56 L, Glucose 200 H, Calcium 8.4, Total Bilirubin 0.8, AST 31, ALT 18, Alkaline Phosphatase 280 H, Total Protein 7.7, Albumin 3.7, Globulin 4.0 H, Albumin/Globulin Ratio 0.9 L 11/03/24 16:09: ABG pH 7.25 L, ABG pCO2 81.8 H, ABG pO2 74.7 L, ABG HCO3 35.2 H, ABG Total CO2 37.7 H, ABG O2 Saturation 95, ABG Base Excess 8.0 H, ABG Lactate 1.4 11/03/24 19:55: VBG pH 7.42 H, VBG pCO2 46.4, VBG pO2 80.4 H, VBG HCO3 29.2, VBG Total CO2 30.6 H, VBG O2 Saturation 97.2 H, VBG Base Excess 4.7 H, VBG Lactic Acid 1.7 11/03/24 20:58: NT-Pro-B Natriuret Pep 2130 H 11/03/24 22:21: POC Glucose 147 H 11/03/24 : Chlamy pneumoniae PCR Not detected, Adenovirus (PCR) Not detected, B. pertussis DNA (PCR) Not detected, Coronavirus OC43 (PCR) Not detected, Coronavirus HKU1 (PCR) Not detected, Coronavirus 229E (PCR) Not detected, SARS-CoV-2 (PCR) Not detected, Coronavirus NL63 (PCR) Not detected, Human Metapneumovir PCR Not detected, Influenza A (H1) PCR Not detected, Influ A (H1N1/09) PCR Not detected, Influenza A (H3) PCR Not detected, Influenza Type A (PCR) Not detected, Influenza Type B (PCR) Not detected, M. pneumoniae (PCR) Not detected, Parainfluenza 1 (PCR) Not detected, Parainfluenza 2 (PCR) Not detected, Parainfluenza 3 (PCR) Not detected, Parainfluenza 4 (PCR) Not detected, RSV (PCR) Not detected, Entero/Rhino (PCR) Not detected 11/04/24 05:35: WBC 15.1 H D, RBC 4.48 L, Hgb 12.8 L, Hct 41.1 L, MCV 91.7, MCH 28.6, MCHC 31.1 L, RDW 14.6, Plt Count 223, MPV 9.5, Neut % (Auto) 82.5 H, Lymph % (Auto) 8.2 L, Clayton % (Auto) 7.9, Eos % (Auto) 0.6, Baso % (Auto) 0.3, Neut # (Auto) 12.4 H, Lymph # (Auto) 1.2, Clayton # (Auto) 1.2 H, Eos # (Auto) 0.1, Baso # (Auto) 0.1, PT 11.2, INR 1.02, Sodium 136, Potassium 4.4, Chloride 94 L, Carbon Dioxide 37 H, Anion Gap 9.4, BUN 20, Creatinine 1.10 D, Estimated Creat Clear 103, Estimated GFR 66, Est GFR ( Amer) 80 D, Glucose 172 H, Calcium 8.[address] scan - abdomen: report reviewed and image reviewed CT scan - pelvis: report reviewed and image reviewed Additional studies: 8.4 cm diameter fluid collection consistent with hematoma (or abscess) noted per CT scan Assessment and Plan *Assessment and plan (1) Abdominal wall hematoma: Problem Comment: Chronic/recurrent left lower abdominal wall/pannicular hematoma Status: Acute Qualifiers: Encounter type: initial encounter Qualified Code(s): S30.1XXA - Contusion of abdominal wall, initial encounter Category: Medical Code(s): S30.1XXA - Contusion of abdominal wall, initial encounter Plan: No definitive evidence of underlying infection. History of resolution/recurrence noted; however, overall size radiographically consistent with collection noted in August 2024. No urgent need for evacuation. Continue serial exams.
[2024-11-04 09:01] LABS: Lymphocytes % 13 % (10-50); Monocytes % 4 % (2-9); Neutrophils % 83 % (42-76); Total Cells Counted 100
[2024-11-04 09:02] LABS: Platelet Estimate Normal; RBC Morphology Normal
[2024-11-04] MEDS: METHOCARBAMOL 500MG TABLET 750 MG PO ×2 (09:17→21:01)
[2024-11-04] MEDS: TIOTROPIUM IH (09:18)
[2024-11-04] MEDS: OLODATEROL IH (09:18)
[2024-11-04] MEDS: CHOLECALCIFEROL 1,000 UNITS (25MCG) TABLET 25 MCG PO (09:18)
[2024-11-04] MEDS: BUMETANIDE 1 MG TABLET 2 MG PO (09:19)
[2024-11-04] MEDS: VENLAFAXINE XR 75MG CAPSULE 150 MG PO (09:19)
[2024-11-04] MEDS: DIGOXIN 0.125MG TABLET 125 MCG PO (09:19)
[2024-11-04] MEDS: LACTOBACILLUS PROBIOTIC COMB CAPSULE 1 CAP PO (09:19)
[2024-11-04] MEDS: ASCORBIC ACID 500MG TAB 500 MG PO (09:19)
[2024-11-04] MEDS: EMTRICITABINE PO (09:21)
[2024-11-04] MEDS: DOCUSATE SODIUM 100 MG CAPSULE PO (09:21)
[2024-11-04] MEDS: TENOFOVIR ALAFENAMIDE PO (09:21)
[2024-11-04] MEDS: BICTEGRAVIR PO (09:21)
[2024-11-04] MEDS: FINASTERIDE 5MG TABLET 5 MG PO (09:21)
[2024-11-04] MEDS: METOPROLOL TARTRATE 50MG TABLET 50 MG PO ×2 (09:21→21:01)
[2024-11-04] MEDS: humaLOG 100 UNITS/ML 10ML VIAL (SSI) SUBCUT (11:11)
--- NOTE | 2024-11-04 12:07 | HMH.OTEV ---
OT Inpatient Evaluation Rehab OT IP Evaluation Start: 11/04/24 07:44 Freq: ONCE Status: Active Protocol: Document 11/04/24 11:58 GAEL (Rec: 11/04/24 12:06 [email or web address] [id number]) Rehab OT IP Assessment Subjective History A 69-year-old male with a history of COPD on chronic oxygen (3 L nasal cannula), congestive heart failure (CHF) , morbid obesity with alveolar hypoventilation, severe degenerative spine disease with multiple hardware surgeries, GERD, benign prostatic hyperplasia (BPH), and atrial flutter (diagnosed August 2024) presents to the emergency department on November 03, 2024, for evaluation of a left lower abdominal wall hematoma with new pain and a recent fall. He initially developed the hematoma while on Lovenox, which stabilized under general surgery observation without intervention. It was painless until last night when pain increased, prompting home health to advise ED evaluation . No new trauma, fever, redness, or induration noted. En route to the hospital, he fell backwards while walking to the car, striking his back, neck, and head. Per his daughter, he did not lose consciousness but appeared disoriented. He was transported to the ED without further incidents. On arrival, vital signs showed hypotension (BP 97/41 mmHg), bradycardia (HR 60 bpm), respiratory rate 18 breaths/ min, SpO2 96% on 3 L nasal cannula (baseline), and afebrile. Physical exam revealed a restless, slightly agitated, morbidly obese male, oriented only to person and place, not circumstance, with distractibility due to neck pain. He has tenderness in the cervical and thoracic paraspinous musculature without bony deformity, contusions, or abrasions, and moves all four extremities and head/neck spontaneously. Pupils are equal and reactive to light, breath sounds show late end-expiratory wheezes without increased work of breathing, and the abdomen is soft with an 8-10 cm left lower quadrant hematoma (firm collar, soft center, tender, no redness or firmness). Post- imaging (CT trauma scans), he became dusky, obtunded, with shallow breathing and SpO2 22% ; interventions included jaw thrust, cay-ossrc-ohid ventilation, Narcan (2 mg in 1 mg intervals), and BiPAP, improving responsiveness but not to baseline. Labs showed WBC 11.9 x10?/?L ( Neut # 9.9), Hgb 13.6 g/dL, INR 0.98, Cr 1.5 mg/dL (GFR 46 ), glucose 200 mg/dL, alk phos 280 U/L, NT-pro-BNP 2130 pg/ mL. ABG indicated pH 7.25, pCO2 81.8 mmHg, pO2 74.7 mmHg, O2 sat 95%, HCO3 35.2 mmol/L, base excess 8.0, lactate 1.4 mmol/L. CT abdomen/pelvis ( preliminary) showed no extravasation into the hematoma or acute processes. Initial interventions included a crystalloid bolus, acetaminophen, and fentanyl ( 50 mcg, then 100 mcg for imaging), with Narcan and BiPAP added post-respiratory depression. Patient lives in 1 story apartment with . 1-2 DEANNA. Independent with ADLs and fx'l mobility prior to hospitalization. Uses a rollator if needed. Subjective I need help to get up. Instructed patient on safety awareness to complete bed mobility from supine->sit @ EOB->SPT to chair with needing Min A X2. Patient required Max A to luis socks. Readjustments to recliner per patient's request to improve comfort. Left Patient sitting upright in chair with nursing staff and cardiology team at end of session. Objective Patient Orientation Person,Place,Name,Age Right Upper Extremity Gross ROM WFL Left Upper Extremity Gross ROM WFL Bed Mobility bed mobility - supine/sit Assist Level Moderate x 1 (50% assist) Transfer Training Sit/Stand Transfer Assist Level Minimal x 2 (25% assist) Chair Transfer Ability Minimal x 2 (25% assist) Chair Transfer Technique Sit to/from Ambulatory Chair Transfer Assistive Devices Rolling Walker [facility] How much help from another person do you currently need... Turning from your back to your side A lot while in a flat bed without using bedrails? Moving from lying on back to sitting on A lot the side of a flat bed without using bedrails? Moving to and from a bed to a chair ( A little including a wheelchair)? Standing up from a chair using your arms A little ? (e.g., wheelchair, bedside chair) Walking in hospital room? A little Climbing 3-5 steps with a railing? A little Mobility Score 16 Mobility Level [facility] Mobility Calculator Mobility 5 Stand (1 or more minutes) Rehab OT IP prob,goals,plan Problems Date of Evaluation: 11/04/24 OT IP Problems Bed Mobility,Transfers,Balance ,Self care,Safety Rehab Potential Rehab Potential Good Equipment Needs Assistive Devices Rolling / Wheeled Walker Plan OT intervention Plan Bed Mobility,Transfers,Balance ,Self care,Safety,Therapeutic Exercise OT Plan Frequency Daily Duration LOS Discharge Goals Bed Mobility Ability Standby Assistance Sit to Stand Chair Transfer Ability Minimal x 1 (25% assist) Chair Transfer Technique Sit to/from Ambulatory Chair Transfer Assistive Devices Rolling Walker Discharge Plan OT Discharge Plan If family is willing to provide / care with patient , recommend returning home with services. However if family is unable to provide care, recommend placement. Continue skilled OT services til medically stable. Eval Complexity Eval Charge Codes 41843 - Low Complexity PHYSICIAN CERTIFICATION: I certify the specified therapy services for Rachid Love JR are required, authorized, and reviewed every 30 days.
[2024-11-04] MEDS: ACETAMINOPHEN 325MG TAB 650 MG PO ×2 (12:22→21:01)
--- NOTE | 2024-11-04 12:56 | HMH.PTEV ---
Physical Therapy Evaluation Rehab PT IP Evaluation Start: 11/04/24 07:44 Freq: ONCE Status: Active Protocol: Document 11/04/24 10:45 YVON (Rec: 11/04/24 12:56 YVON [id number]) Subjective/History History History 69-year-old male with a history of COPD on chronic oxygen (3 L nasal cannula), congestive heart failure (CHF) , morbid obesity with alveolar hypoventilation, severe degenerative spine disease with multiple hardware surgeries, GERD, benign prostatic hyperplasia (BPH), and atrial flutter (diagnosed August 2024) presents to the emergency department on November 03, 2024, for evaluation of a left lower abdominal wall hematoma with new pain and a recent fall. He initially developed the hematoma while on Lovenox, which stabilized under general surgery observation without intervention. It was painless until last night when pain increased, prompting home health to advise ED evaluation . No new trauma, fever, redness, or induration noted. En route to the hospital, he fell backwards while walking to the car, striking his back, neck, and head. Per his daughter, he did not lose consciousness but appeared disoriented. He was transported to the ED without further incidents. He reports he lives alone, no 1-2 DEANNA the home, and he is generally independent with all mobility using a RW for ambulation. Subjective Subjective Currently he c/o pain in his low back, but unable to localize further. He does agree to mobility assessment. [facility] How much help from another person do you currently need... Turning from your back to your side A little while in a flat bed without using bedrails? Moving from lying on back to sitting on A lot the side of a flat bed without using bedrails? Moving to and from a bed to a chair ( A lot including a wheelchair)? Standing up from a chair using your arms A lot ? (e.g., wheelchair, bedside chair) Walking in hospital room? A little Climbing 3-5 steps with a railing? A lot Mobility Score 14 Mobility Level [facility] Mobility Calculator Mobility 4 Move to chair/ commode Rehab PT IP Eval Objective Appearance Patient Behavior Appropriate Patient Orientation Person,Place,Time Difficulty following instructions none Speech Pattern Clear Ambulation Patient Able to Ambulate Yes Ambulation Observation IP General Gait Pattern Observation Shuffling Step Ambulation Distance (feet) 4 Ambulation Assistive Device Rolling Walker Ambulation Ability Minimal x 1 (25% assist) Balance Ability to Arise Able, uses arms to help Sitting Balance Steady, safe Standing Balance Steady, wide stance Dynamic Sitting Balance Ability Good Dynamic Standing Balance Ability Fair Transfers Bed Transfer Ability Minimal x 1 (25% assist) Chair Transfer Ability Minimal x 1 (25% assist) Sit to Stand Bed Transfer Ability Minimal x 1 (25% assist) Sit to Stand Chair Transfer Ability Minimal x 1 (25% assist) Rehab PT IP prob,goals,plan Problems Date of Evaluation: 11/04/24 PT IP Problems Bed Mobility,Transfers,Gait Rehab Potential Rehab Potential Good Plan PT Intervention Plan Bed Mobility,Transfers,Gait, Therapeutic Exercise PT Plan Frequency Daily Duration LOS Discharge Goals Bed Transfer Ability Contact Guard/Hand Hold Sit to Stand Chair Transfer Ability Contact Guard/Hand Hold Ambulation Assistive Device Rolling Walker Ambulation Distance (feet) 30 Discharge Plan PT Discharge Plan Pt is currently most appropriate for rehab placement once medically stable for d/c. Skilled inpatient therapy is indicated to improve strength, improve transfers, and improve ambulation in order to aid pt return to [facility]. Eval Complexity Eval Charge Codes 88747 - High Complexity PHYSICIAN CERTIFICATION: I certify the specified therapy services for Rachid Love are required, authorized, and reviewed every 30 days.
--- NOTE | 2024-11-04 14:05 | P.PN_ITS ---
Subjective *Date: 11/04/24 *Time: 22:00 Interval history: Feeling better today. At baseline mentation. Stable on 3 L oxygen. In A-fib. Denies chest pain. Complaining of upper back pain and headache from fall at home. Complaining of pain in lower abdomen at site of hematoma. Afebrile. Tolerating p.o. intake. Medical Exam Vital signs and Labs for Last 24 Hours: Vital Signs Temp Pulse Pulse Resp BP BP Pulse Ox 11/04/24 12:35 11/04/24 12:00 60 11/04/24 12:00 61 18 141/62 H 95 11/04/24 11:47 99.4 F 11/04/24 11:00 11/04/24 10:00 74 18 165/86 H 95 11/04/24 09:19 64 11/04/24 08:37 11/04/24 08:00 11/04/24 08:00 99.4 F 64 18 152/52 H 92 L 11/04/24 08:00 11/04/24 08:00 80 11/04/24 06:57 11/04/24 06:00 82 14 128/65 94 L 11/04/24 05:00 11/04/24 04:00 98.1 F 11/04/24 04:00 82 16 167/77 H 94 L 11/04/24 04:00 65 11/04/24 03:57 67 11/04/24 03:57 68 11/04/24 03:00 11/04/24 02:00 11/04/24 02:00 61 16 124/83 94 L 11/04/24 01:00 11/04/24 00:00 60 11/04/24 00:00 98.0 F 65 14 131/71 96 11/03/24 23:00 11/03/24 22:35 95 11/03/24 22:00 67 14 136/73 98 11/03/24 21:00 11/03/24 20:00 65 11/03/24 20:00 11/03/24 20:00 98.4 F 68 16 134/71 99 11/03/24 19:45 11/03/24 19:05 98.2 F 59 L 15 134/71 11/03/24 19:00 11/03/24 18:00 60 13 134/68 95 11/03/24 17:30 60 16 128/55 L 94 L 11/03/24 17:01 64 19 117/63 93 L 11/03/24 16:41 11/03/24 16:38 71 25 H 139/77 96 11/03/24 16:05 80 23 142/84 H 98 11/03/24 15:44 82 34 H 168/95 H 99 11/03/24 14:40 90/63 L 11/03/24 14:06 59 L 86/63 L 95 O2 Del Method O2 Flow Rate FiO2 11/04/24 12:35 Nasal Cannula 3 11/04/24 12:00 11/04/24 12:00 Nasal Cannula 3 11/04/24 11:47 11/04/24 11:00 Nasal Cannula 3 11/04/24 10:00 Nasal Cannula 3 11/04/24 09:19 11/04/24 08:37 Nasal Cannula 3 11/04/24 08:00 Nasal Cannula 3 11/04/24 08:00 Nasal Cannula 3 11/04/24 08:00 Nasal Cannula 3 11/04/24 08:00 11/04/24 06:57 Nasal Cannula 3 11/04/24 06:00 Nasal Cannula 3 11/04/24 05:00 Nasal Cannula 3 11/04/24 04:00 11/04/24 04:00 Nasal Cannula 3 11/04/24 04:00 11/04/24 03:57 11/04/24 03:57 11/04/24 03:00 Nasal Cannula 3 11/04/24 02:00 Nasal Cannula 3 11/04/24 02:00 Nasal Cannula 3 11/04/24 01:00 Nasal Cannula 3 11/04/24 00:00 11/04/24 00:00 Nasal Cannula 3 11/03/24 23:00 Nasal Cannula 3 11/03/24 22:35 Nasal Cannula 3 11/03/24 22:00 BiPAP 11/03/24 21:00 BiPAP 11/03/24 20:00 11/03/24 20:00 BiPAP 11/03/24 20:00 BiPAP 11/03/24 19:45 30 11/03/24 19:05 BiPAP 11/03/24 19:00 BiPAP 11/03/24 18:00 11/03/24 17:30 11/03/24 17:01 11/03/24 16:41 30 11/03/24 16:38 11/03/24 16:05 11/03/24 15:44 11/03/24 14:40 11/03/24 14:06 Intake and Output 11/03/24 11/04/24 11/04/24 23:59 07:59 15:59 Intake Total 180 / 420 240 / 420 Output Total 500 / 1100 600 / 1100 Balance -320 / -680 -360 / -680 Intake: Intake, Oral Amount 180 / 420 240 / 420 Output: Output, Urine Amount 500 / 1100 600 / 1100 Other: Number of Unmeasured Voids 0 Weight 116.9 kg 116.9 kg Patient Weight 11/04/24 23:59 Weight 116.9 kg Laboratory Results - last 24 hr 11/03/24 14:00: WBC 11.9 H, RBC 4.79, Hgb 13.6 L, Hct 43.9, MCV 91.6, MCH 28.4, MCHC 31.0 L, RDW 14.3, Plt Count 249, MPV 9.8, Neut % (Auto) 83.0 H, Lymph % (Auto) 7.5 L, [place] % (Auto) 5.6, Eos % (Auto) 2.7, Baso % (Auto) 0.7, Neut # (Auto) 9.9 H, Lymph # (Auto) 0.9, [place] # (Auto) 0.7, Eos # (Auto) 0.3, Baso # (Auto) 0.1, PT 10.8, INR 0.98, Sodium 136, Potassium 4.0, Chloride 90 L, Carbon Dioxide 39 H, Anion Gap 11.0, BUN 17, Creatinine 1.50 H, Estimated Creat Clear 76, Estimated GFR 46 L, Est GFR ( Amer) 56 L, Glucose 200 H, Calcium 8.4, Total Bilirubin 0.8, AST 31, ALT 18, Alkaline Phosphatase 280 H, Total Protein 7.7, Albumin 3.7, Globulin 4.0 H, Albumin/Globulin Ratio 0.9 L 11/03/24 16:09: ABG pH 7.25 L, ABG pCO2 81.8 H, ABG pO2 74.7 L, ABG HCO3 35.2 H, ABG Total CO2 37.7 H, ABG O2 Saturation 95, ABG Base Excess 8.0 H, ABG Lactate 1.4 11/03/24 19:55: VBG pH 7.42 H, VBG pCO2 46.4, VBG pO2 80.4 H, VBG HCO3 29.2, VBG Total CO2 30.6 H, VBG O2 Saturation 97.2 H, VBG Base Excess 4.7 H, VBG Lactic Acid 1.7 11/03/24 20:58: NT-Pro-B Natriuret Pep 2130 H 11/03/24 22:21: POC Glucose 147 H 11/03/24 : Chlamy pneumoniae PCR Not detected, Adenovirus (PCR) Not detected, B. pertussis DNA (PCR) Not detected, Coronavirus OC43 (PCR) Not detected, Coronavirus HKU1 (PCR) Not detected, Coronavirus 229E (PCR) Not detected, SARS-CoV-2 (PCR) Not detected, Coronavirus NL63 (PCR) Not detected, Human Metapneumovir PCR Not detected, Influenza A (H1) PCR Not detected, Influ A (H1N1/09) PCR Not detected, Influenza A (H3) PCR Not detected, Influenza Type A (PCR) Not detected, Influenza Type B (PCR) Not detected, M. pneumoniae (PCR) Not detected, Parainfluenza 1 (PCR) Not detected, Parainfluenza 2 (PCR) Not detected, Parainfluenza 3 (PCR) Not detected, Parainfluenza 4 (PCR) Not detected, RSV (PCR) Not detected, Entero/Rhino (PCR) Not detected 11/04/24 05:35: WBC 15.1 H D, RBC 4.48 L, Hgb 12.8 L, Hct 41.1 L, MCV 91.7, MCH 28.6, MCHC 31.1 L, RDW 14.6, Plt Count 223, MPV 9.5, Neut % (Auto) 82.5 H, Lymph % (Auto) 8.2 L, [place] % (Auto) 7.9, Eos % (Auto) 0.6, Baso % (Auto) 0.3, Neut # (Auto) 12.4 H, Lymph # (Auto) 1.2, [place] # (Auto) 1.2 H, Eos # (Auto) 0.1, Baso # (Auto) 0.1, Total Counted 100, Neutrophils % (Manual) 83 H, Lymphocytes % (Manual) 13, Monocytes % (Manual) 4, Platelet Estimate Normal, RBC Morphology Normal, PT 11.2, INR 1.02, Sodium 136, Potassium 4.4, Chloride 94 L, Carbon Dioxide 37 H, Anion Gap 9.4, BUN 20, Creatinine 1.10 D, Estimated Creat Clear 103, Estimated GFR 66, Est GFR ( Amer) 80 D, Glucose 172 H, Calcium 8.2 L I & O for Labs for Last 24 Hours: Intake & Output 11/01/24 11/02/24 11/03/24 11/04/24 23:59 23:59 23:59 23:59 Intake Total 420 / 420 Output Total 1100 / 1100 Balance -680 / -680 Weight 116.9 kg 116.9 kg Constitutional: Present mild distress, obese, chronically ill appearing and cooperative Head: Present atraumatic and normocephalic ENT: Present normal exam Neck: Present normal inspection Respiratory: Present prolonged expiratory phase and diminished air movement; Absent rhonchi, wheezes or crackles Cardiac: Present Reg Rate and Rhythm GI: Present soft, tenderness (Lower abdominal wall at site of hematoma left of umbilicus) and normal bowel sounds; Absent distention (male): Present deferred Extremities: Absent edema Skin: Present intact and warm Comment:: lesions on legs, chronic with scabbing Neuro: Present Grossly Intact, alert, awake, oriented x 3 and moves all extremities Assessment and Plan *Assessment and plan (1) Encephalopathy acute: Status: Acute Category: Medical Code(s): G93.40 - Encephalopathy, unspecified (2) Acute on chronic respiratory failure with hypoxia and hypercapnia: Status: Acute Category: Medical Code(s): J96.21 - Acute and chronic respiratory failure with hypoxia; J96.22 - Acute and chronic respiratory failure with hypercapnia (3) Type 2 diabetes mellitus with vascular disease: Status: Chronic Category: Medical Code(s): E11.59 - Type 2 diabetes mellitus with other circulatory complications (4) Atrial fibrillation: Status: Acute Category: Medical Code(s): I48.91 - Unspecified atrial fibrillation (5) Chronic diastolic CHF (congestive heart failure): Status: Chronic Category: Medical Code(s): I50.32 - Chronic diastolic (congestive) heart failure (6) Hematoma: Problem Comment: Anticoagulation is being withheld due to the hematoma. Status: Acute Category: Medical Code(s): T14.8XXA - Other injury of unspecified body region, initial encounter (7) HIV disease: Status: Chronic Category: Medical Code(s): B20 - Human immunodeficiency virus [HIV] disease (8) Hypertension: Status: Acute Category: Medical Code(s): I10 - Essential (primary) hypertension (9) Bradycardia: Status: Acute Category: Medical Code(s): R00.1 - Bradycardia, unspecified (10) Syncope: Status: Acute Category: Medical Code(s): R55 - Syncope and collapse Plan 69-year-old male with multiple chronic medical conditions including poorly controlled type 2 diabetes, HIV, CHF, COPD, ABEL, pharmacy and frequent falls. Presented to the ER due to fall with neck and back pain along with lower abdominal wall hematoma with new pain. Admitted for further management. Concern for possible abscess. Surgery evaluating today. Cardiology also assisting with care due to A-fib and heart failure. Continues to require inpatient management. Therapy evaluating and working with patient daily. Problems addressed as follows: Acute on chronic heart failure with preserved ejection fraction Atrial flutter Hypertension -Cardiology consulted, evaluated patient today. Discussed case, recommend continuing diuresis with 2 mg Bumex twice daily. -Recommend repeat limited echo to evaluate LV function. EF normal at 50% in August. Troponins unremarkable at this time, less than 0.01. Blood pressure normal. Continue home regimen. -Lipid panel ordered for the morning. -Currently in a flutter, rate controlled. Continue digoxin and metoprolol per home regimen. -Agree with holding anticoagulation due to risk of bleed given his recurrent falls. Hematoma, left lower abdominal wall - No definitive evidence of underlying infection. Findings consistent with resolving hematoma that has recurred. Size radiographically is consistent with collection noted in August 2024. No indication for aspiration or drainage at this time. -Hemoglobin 12.8, stable. Repeat CBC, CMP, magnesium ordered for the morning. INR 1.09. -White count still elevated at 15, unclear source. Continue empiric antibiotics. -Holding anticoagulation in the setting of hematoma -Tylenol 650 mg as needed every 6 hours for pain, resume home regimen of tramadol. Holding on any stronger opiates due to respiratory depression risk and history of respiratory suppression Acute fall with neck and Back Pain - Fall backwards striking head, neck, back; no LOC, disoriented post-fall, neck/thoracic tenderness, moves all extremities. CT prelim: no acute injury. PMH: Spine disease, dementia risk (disorientation). Differential: Soft tissue injury, occult fracture (spine hardware), syncope (hypotension?BP 97/41), intracranial injury (disorientation). Decompensated Respiratory Failure (Acute on Chronic) -Most consistent with secondary to oversedation and polypharmacy. - Avoid narcotics (fentanyl caused depression); Valium 2 mg IV given, tolerated -Weaned to nasal cannula, no further noninvasive positive pressure needs at this time Altered Mental Status (Encephalopathy) -Consistent with toxic encephalopathy due to polypharmacy. Compounded by past medical history of dementia, COPD, CHF. Became worse after medication in the ER for imaging. Improved with Narcan. Alert and oriented on exam today. - Caution with oversedation of polypharmacy Mild Renal Dysfunction - Cr 1.5, GFR 46, BUN 17 on admission. Improved to BUN of 20, creatinine 1.1 today. Potassium 4.4. Repeat CBC, CMP, magnesium ordered for the morning. Caution with nephrotoxins. PT and OT evaluated patient, recommend placement. He is adamant he will go home with home health as he has family to assist at home as well as home health coming in. Patient high risk for readmission. Strong concern about discharging home however understand patient's autonomy to make his own decisions. Family supportive of patient's decision Full code Diabetic diet Holding anticoagulation in the setting of hematoma
--- NOTE | 2024-11-04 14:07 | P.CONCA_ITS ---
History of Present Illness History of Present Illness Consult date: 11/04/24 Requesting physician: Negrito Patricio Chief complaint: fall History of present illness: This is a 69-year-old male who presented to the emergency department after a fa ll. The patient has a left lower abdominal wall hematoma with new pain that occurred during a recent fall. He initially developed the hematoma while on Lovenox which was stabilized and was painless until the night before admission. The patient started to have increased pain and his home health provider recommended he come to the emergency department for further evaluation. On his way to the emergency department the patient fell backwards while walking to the car striking his head, back and neck. He did not lose consciousness but was disoriented and transported to the emergency department. Once here the patient was found to be hypotensive with a blood pressure of 97/41 and his heart rate was 60 bpm. The patient did have an elevated BNP over 1999. The patient also had shallow breathing and an SpO2 of 22% and was treated with bag valve mask ventilation and Narcan as well as BiPAP which did improve his responsiveness. Today he is alert and oriented and sitting up in the chair with a nasal cannula in place. He denies any chest pain or pressure. He states that his shortness of breath has significantly improved and he is feeling much better. He denies lower extremity edema. He denies any fever, chills, nausea, vomiting or diarrhea. [facility] Disclaimer: The information contained in this section may have been updated after the patient was seen, as this information can be updated by other users. Medical History (Updated 11/04/24 @ 14:34 by Beatriz Talamantes APRN) Atrial flutter Acute on chronic heart failure with preserved ejection fraction (HFpEF) HLD (hyperlipidemia) GERD (gastroesophageal reflux disease) CAD (coronary artery disease) CHF (congestive heart failure) Pneumonia Pleural effusion, bilateral Acute respiratory failure with hypoxia and hypercarbia Hypertension Chronic venous stasis dermatitis of both lower extremities HIV (human immunodeficiency virus infection) Diabetes mellitus, type 2 Closed fracture of neck of left humerus GI bleed due to NSAIDs Morbid obesity with BMI of 45.0-49.9, adult Family History Other No significant family history Social History Smoking Status: Unknown if ever smoked second hand exposure: No alcohol intake: never substance use type: denies use current occupational status: retired Travel in the last 8 weeks: None household members: spouse and family housing: house current occupational exposures/hazards: No caffeine: Yes Have you lived/traveled outside [place] in past 30 days?: No Contact w/someone who lives/traveled outside US past 30 days?: No Exposure to someone with infectious disease in past 14 days?: No Do you have a fever (greater than 100.4 F or 38 C)?: No Have you tested positive for COVID-19: No Exposed to someone with COVID-19 in past 14 days?: No Do you have a sore throat?: No Do you have a cough?: No Do you have any weakness?: No Are you experiencing any nausea/vomitting?: No Do you have any diarrhea?: No Are you experiencing any unusual bleeding?: No Do you have any muscle aches/pain?: No Do you have any abdominal pain?: No Are you experiencing loss of taste or smell?: No Review of Systems Review of Systems Review of systems:: pertinent systems reviewed and negative unless documented below Constitutional Constitutional: Reports system reviewed and no additional complaints, except as documented, Reports fatigue, Reports frequent falls, Reports lethargy and Reports weakness Eyes Eyes: Reports system reviewed and no additional complaints, except as documented ENT Ears, Nose, Mouth, and Throat: Reports system reviewed and no additional complaints, except as documented *Cardiovascular Cardiovascular: Reports system reviewed and no additional complaints, except as documented, Denies chest pain and Reports dyspnea on exertion *Respiratory Respiratory: Reports system reviewed and no additional complaints, except as documented and Reports dyspnea on exertion *Gastrointestinal Gastrointestinal: Reports system reviewed and no additional complaints, except as documented and Reports abdominal pain (LLQ) *Genitourinary Genitourinary: Reports system reviewed and no additional complaints, except as documented *Musculoskeletal Musculoskeletal: Reports system reviewed and no additional complaints, except as documented Integumentary/Breasts Skin/Breast: Reports system reviewed and no additional complaints, except as documented *Neurologic Neurologic: Reports system reviewed and no additional complaints, except as documented, Reports frequent falls and Reports weakness Psychiatric Psychiatric: Reports system reviewed and no additional complaints, except as documented Endocrine Endocrine: Reports system reviewed and no additional complaints, except as documented and Reports fatigue Hematologic/Lymphatic Hematologic/Lymphatic: Reports system reviewed and no additional complaints, except as documented Allergic/Immunologic Allergic/Immunologic: Reports system reviewed and no additional complaints, except as documented Exam Data for Last 24 hours Vital signs and Labs for Last 24 Hours: Temp Pulse Resp BP Pulse Ox O2 Del Method O2 Flow Rate 99.4 F 61 18 141/62 H 95 Nasal Cannula 3 11/04/24 11:47 11/04/24 12:00 11/04/24 12:00 11/04/24 12:00 11/04/24 12:00 11/04/24 12:35 11/04/24 12:35 FiO2 30 11/03/24 19:45 Laboratory Results - last 24 hr 11/03/24 14:00: WBC 11.9 H, RBC 4.79, Hgb 13.6 L, Hct 43.9, MCV 91.6, MCH 28.4, MCHC 31.0 L, RDW 14.3, Plt Count 249, MPV 9.8, Neut % (Auto) 83.0 H, Lymph % (Auto) 7.5 L, [place] % (Auto) 5.6, Eos % (Auto) 2.7, Baso % (Auto) 0.7, Neut # (Auto) 9.9 H, Lymph # (Auto) 0.9, [place] # (Auto) 0.7, Eos # (Auto) 0.3, Baso # (Auto) 0.1, PT 10.8, INR 0.98, Sodium 136, Potassium 4.0, Chloride 90 L, Carbon Dioxide 39 H, Anion Gap 11.0, BUN 17, Creatinine 1.50 H, Estimated Creat Clear 76, Estimated GFR 46 L, Est GFR ( Amer) 56 L, Glucose 200 H, Calcium 8.4, Total Bilirubin 0.8, AST 31, ALT 18, Alkaline Phosphatase 280 H, Total Protein 7.7, Albumin 3.7, Globulin 4.0 H, Albumin/Globulin Ratio 0.9 L 11/03/24 16:09: ABG pH 7.25 L, ABG pCO2 81.8 H, ABG pO2 74.7 L, ABG HCO3 35.2 H, ABG Total CO2 37.7 H, ABG O2 Saturation 95, ABG Base Excess 8.0 H, ABG Lactate 1.4 11/03/24 19:55: VBG pH 7.42 H, VBG pCO2 46.4, VBG pO2 80.4 H, VBG HCO3 29.2, VBG Total CO2 30.6 H, VBG O2 Saturation 97.2 H, VBG Base Excess 4.7 H, VBG Lactic Acid 1.7 11/03/24 20:58: NT-Pro-B Natriuret Pep 2130 H 11/03/24 22:21: POC Glucose 147 H 11/03/24 : Chlamy pneumoniae PCR Not detected, Adenovirus (PCR) Not detected, B. pertussis DNA (PCR) Not detected, Coronavirus OC43 (PCR) Not detected, Coronavirus HKU1 (PCR) Not detected, Coronavirus 229E (PCR) Not detected, SARS-CoV-2 (PCR) Not detected, Coronavirus NL63 (PCR) Not detected, Human Metapneumovir PCR Not detected, Influenza A (H1) PCR Not detected, Influ A (H1N1/09) PCR Not detected, Influenza A (H3) PCR Not detected, Influenza Type A (PCR) Not detected, Influenza Type B (PCR) Not detected, M. pneumoniae (PCR) Not detected, Parainfluenza 1 (PCR) Not detected, Parainfluenza 2 (PCR) Not detected, Parainfluenza 3 (PCR) Not detected, Parainfluenza 4 (PCR) Not detected, RSV (PCR) Not detected, Entero/Rhino (PCR) Not detected 11/04/24 05:35: WBC 15.1 H D, RBC 4.48 L, Hgb 12.8 L, Hct 41.1 L, MCV 91.7, MCH 28.6, MCHC 31.1 L, RDW 14.6, Plt Count 223, MPV 9.5, Neut % (Auto) 82.5 H, Lymph % (Auto) 8.2 L, [place] % (Auto) 7.9, Eos % (Auto) 0.6, Baso % (Auto) 0.3, Neut # (Auto) 12.4 H, Lymph # (Auto) 1.2, [place] # (Auto) 1.2 H, Eos # (Auto) 0.1, Baso # (Auto) 0.1, Total Counted 100, Neutrophils % (Manual) 83 H, Lymphocytes % (Manual) 13, Monocytes % (Manual) 4, Platelet Estimate Normal, RBC Morphology Normal, PT 11.2, INR 1.02, Sodium 136, Potassium 4.4, Chloride 94 L, Carbon Dioxide 37 H, Anion Gap 9.4, BUN 20, Creatinine 1.10 D, Estimated Creat Clear 103, Estimated GFR 66, Est GFR ( Amer) 80 D, Glucose 172 H, Calcium 8.2 L I & O for Last 24 hours: Intake & Output 11/01/24 11/02/24 11/03/24 11/04/24 23:59 23:59 23:59 23:59 Intake Total 420 / 420 Output Total 1100 / 1100 Balance -680 / -680 Weight 257 lb 11.526 oz 257 lb 11.526 oz Constitutional Constitutional: no acute distress and obese *Routine HEENT Exam Head: Present normocephalic and atraumatic ENT: Present mucous membranes moist *Routine Neck Exam Neck: Present supple, full ROM and normal carotid upstroke; Absent JVD, carotid bruit or lymphadenopathy *Routine Respiratory Exam Respiratory: Present decreased breath sounds, normal respiratory effort and symmetric chest movement *Routine Cardiovascular Exam Cardiovascular: Present Normal S1, Normal S2 and irregularly irregular; Absent murmur or gallop *Routine Abdominal Exam Abdominal: Present soft and normoactive bowel sounds; Absent tenderness, distended or organomegaly *Routine Extremities Exam Extremities: Present full ROM, pulses intact and normal capillary refill; Absent cyanosis, clubbing or edema Comments: Venous stasis ulcers with scabbing to the bilateral lower extremities *Routine Skin Exam Skin: Present intact and warm; Absent erythema *Routine Neurological Exam Neurological: Present alert, oriented X3 and CN II-XII intact; Absent sensory deficit or motor deficit Routine Psychiatric Exam Psychiatric: Present normal affect Meds Home Medications and Allergies Home Medications ?Medication ?Instructions ?Recorded ?Confirmed ?Type finasteride 5 mg tablet 5 mg PO DAILY 11/13/18 11/04/24 History tamsulosin 0.4 mg capsule 0.4 mg PO HS 01/06/20 11/04/24 History methocarbamol 750 mg tablet 750 mg PO Q6HP PRN Muscle Spasm 11/26/20 11/04/24 History cholecalciferol (vitamin D3) 25 25 mcg PO DAILY 12/30/20 11/04/24 History mcg (1,000 unit) capsule venlafaxine 150 mg 150 mg PO DAILY 09/16/23 11/04/24 History capsule,extended release 24 hr (Effexor XR) bumetanide 2 mg tablet 2 mg PO DAILY 08/19/24 11/04/24 History tramadol 50 mg tablet 50 mg PO 0900,1700 08/19/24 11/04/24 History albuterol sulfate 90 mcg/actuation 1 inh inhalation QIDP PRN 08/20/24 11/04/24 History aerosol inhaler Shortness Of Breath sitagliptin 100 mg tablet 100 mg PO DAILY 08/20/24 11/04/24 History pantoprazole 40 mg tablet,delayed 40 mg PO DAILY 30 days #0 tabs 08/23/24 11/04/24 Rx release digoxin 125 mcg (0.125 mg) tablet 125 mcg PO DAILY #90 tabs 09/16/24 11/04/24 Rx aspirin 81 mg capsule 81 mg PO DAILY 11/04/24 11/04/24 History bictegravir 50 mg-emtricitabine 1 tab PO DAILY 11/04/24 11/04/24 History 200 mg-tenofovir alafenam 25 mg tablet (Biktarvy) gabapentin 300 mg capsule 600 mg PO DAILY 11/04/24 11/04/24 History gabapentin 300 mg capsule 900 mg PO 1700,2100 11/04/24 11/04/24 History lidocaine 5 % topical patch 2 patch topical DAILY 11/04/24 11/04/24 History metoprolol tartrate 100 mg tablet 50 mg PO BID 11/04/24 11/04/24 History tiotropium 2.5 mcg-olodaterol 2.5 2 puff inhalation DAILY 11/04/24 11/04/24 History mcg/actuation mist for inhalation (Stiolto Respimat) tramadol 50 mg tablet 100 mg PO HS 11/04/24 11/04/24 History New Prescriptions to Start Prescriptions: Allergies Allergy/AdvReac Type Severity Reaction Status Date / Time SANDRA Inhibitors Allergy Unknown Unknown Verified 09/16/24 08:44 allergy reaction clofibrate Allergy Unknown Unknown Verified 09/16/24 08:44 allergy reaction enalapril Allergy Unknown Unknown Verified 09/16/24 08:44 allergy reaction erythromycin base Allergy Unknown Unknown Verified 09/16/24 08:44 allergy reaction gemfibrozil Allergy Unknown Unknown Verified 09/16/24 08:44 allergy reaction hepatitis A virus vaccine Allergy Unknown Unknown Verified 09/16/24 08:44 allergy reaction hydralazine Allergy Unknown Unknown Verified 09/16/24 08:44 allergy reaction Macrolide Antibiotics Allergy Unknown Unknown Verified 09/16/24 08:44 allergy reaction pravastatin (From Pravachol) Allergy Unknown Unknown Verified 09/16/24 08:44 allergy reaction Shibszo-GOV-LoC Reductase Allergy Unknown Unknown Verified 09/16/24 08:44 Inhibitor (Qldsbna-Ofq-Rke allergy Reductase Inhibitor) reaction Assessment and Plan *Assessment and plan (1) Acute on chronic heart failure with preserved ejection fraction (HFpEF): Status: Acute Category: Medical Code(s): I50.33 - Acute on chronic diastolic (congestive) heart failure (2) Abdominal wall hematoma: Problem Comment: Chronic/recurrent left lower abdominal wall/pannicular hematoma Status: Acute Qualifiers: Encounter type: initial encounter Qualified Code(s): S30.1XXA - Contusion of abdominal wall, initial encounter Category: Medical Code(s): S30.1XXA - Contusion of abdominal wall, initial encounter (3) Fall: Status: Acute Qualifiers: Encounter type: initial encounter Qualified Code(s): W19.XXXA - Unspecified fall, initial encounter Category: Medical Code(s): W19.XXXA - Unspecified fall, initial encounter (4) Atrial flutter: Status: Acute Qualifiers: Atrial flutter type: unspecified Qualified Code(s): I48.92 - Unspecified atrial flutter Category: Medical Code(s): I48.92 - Unspecified atrial flutter (5) Acute on chronic respiratory failure with hypoxia and hypercapnia: Status: Acute Category: Medical Code(s): J96.21 - Acute and chronic respiratory failure with hypoxia; J96.22 - Acute and chronic respiratory failure with hypercapnia (6) Type 2 diabetes mellitus with vascular disease: Status: Chronic Category: Medical Code(s): E11.59 - Type 2 diabetes mellitus with other circulatory complications (7) Hypertension: Status: Acute Qualifiers: Hypertension type: primary hypertension Qualified Code(s): I10 - Essential (primary) hypertension Category: Medical Code(s): I10 - Essential (primary) hypertension (8) HIV disease: Status: Chronic Category: Medical Code(s): B20 - Human immunodeficiency virus [HIV] disease Plan Plan: 1. The patient was admitted to the hospital after a fall. He does have a large hematoma to the left lower quadrant of his abdominal wall. Surgery has been consulted. Will defer. 2. The patient does have an elevated BNP. He is likely having an acute on chr onic exacerbation of HFpEF. Will diurese him with Bumex 2 mg IV twice daily. Will repeat a BMP in the morning. 3. Will repeat a limited echocardiogram to evaluate his LV function. His EF was low normal in August 2024 at 50%. We want to recheck his EF to make sure this is not worsened. 4. The patient denies any chest pain or pressure. No plans for invasive left cardiac catheterization. No troponin was checked on admission that I can see. Will obtain a troponin today. Will also obtain an EKG. 5. His blood pressure is acceptable at this time. On admission his blood pressure was low in the 90s systolic. BP is stable at this time. Continue metoprolol. 6. His LDL goal is less than 100. Will get a lipid panel in the morning. 7. The patient does have a history of atrial fibrillation. He is currently in a flutter at this time with rate control. Continue digoxin and metoprolol. 8. No long-term anticoagulation due to his high falls risk. 9. Further recommendations will be made pending the patient's response to treatment and the results of his echocardiogram today. Thank you for the opportunity to help participate in the care of this patient. All recommendations and orders are per Dr. Page.
--- NOTE | 2024-11-04 14:22 | SW/DCPLANNER ---
I spoke w/ this patient regarding plans once medically stable for discharge. PT/OT evaluated patient and recommended placement at this time. Patient is adamant that he will not be agreeable to placement. Patient expressed a bad experience during previous SNF level of care. Patient is currently established w/ [facility] and prefers to return home w/ and resume home health services. I will continue to follow up w/ patient, family and MD. Discharge date is unknown at this time.
--- NOTE | 2024-11-04 14:34 | CA_ITS ---
APPROVED REPORT EXAM: Limited 2D Echocardiogram Saw Runner: Serene Castañeda, RCS, RVS Ht: 5 ft 10 in Wt: 260lbs BSA: 2.33 BP: 139/79 mmHg Indications: EF check, CAD, Afib, CHF, HIV+, HTN, DM 2D Dimensions IVSd 1.39 cm M: 0.6-1.2 LVEF (Visual) 50.00 % PWd 1.34 cm M: 0.6 - 1.2 LVDd 4.76 cm M: 4.2 - 5.9 LVDs 3.78 cm M: 2.5 - 4.0 M-Mode Dimensions RVDd 2.76 cm (0.9-2.6) LA Diam 5.63 cm (1.9-4.0) LVDd 5.27 cm (3.5-5.7) LVDs 3.35 cm (3.5-5.7) IVSd 1.44 cm (0.6-1.1) PWd 1.44 cm (0.6-1.1) EF (Teich) 56.00% EPSs 0.33 cm FS 34.00% EDV (Teich) 133.60 mL ESV (Teich) 45.80 mL Other Information Study Quality: Fair Conclusion This is a limited TTE to evaluate for LV systolic function. Limited windows are obtained. The left ventricle is normal in size. There is increased LV wall thickness. There is normal global LV systolic function. LVEF is 55%. The right ventricle is mildly to moderately dilated. There is mild hypokinesis of the right ventricular systolic function. Electronically signed by : Aniya Page MD 11/05/2024 23:04:45
--- NOTE | 2024-11-04 15:18 | ECG_ITS ---
APPROVED REPORT Exam: Resting ECG HR:61 bpm ECG Measurements Heart Rate 61 AXES QRSd 157 QRS -24 QT 410 T -53 QTc 414 Conclusion ATRIAL FLUTTER/TACHYCARDIA BORDERLINE LEFT AXIS DEVIATION [QRS AXIS < -20] RIGHT BUNDLE BRANCH BLOCK [120+ ms QRS DURATION, UPRIGHT V1, 40+ ms S IN I/aVL/V4/V5/V6] MODERATE T-WAVE ABNORMALITY, CONSIDER LATERAL ISCHEMIA [-0.1+ mV T-WAVE IN I/aVL/V5/V6] MODERATE T-WAVE ABNORMALITY, CONSIDER INFERIOR ISCHEMIA [-0.1+ mV T-WAVE IN II/aVF] ABNORMAL ECG UNCONFIRMED REPORT Electronically signed by : Sabas Johnston MD 11/05/2024 20:59:08
[2024-11-04 15:29] LABS: Troponin I < 0.01 ng/ml (0.00-0.034)
--- NOTE | 2024-11-04 16:02 | PC.NURSE ---
PT IS RESTING IN BED. ALERT AND ORIENTED X4. EATING AND DRINKING FAIR. PT IS AWARE HE IS ON A 1500 ML FLUID RESTRICTION. FAMILY BROUGHT PT A 32 OZ TEA FROM [employer] THAT PT HAS BEEN SIPPING ON T/O THE SHIFT. NO OTHER DRINKS HAVE BEEN GIVEN TO PT THIS SHIFT EXCEPT FROM WHAT HAS BEEN ON PT'S MEAL TRAYS. MEDICATED PER MAR FOR BACK/NECK DISCOMFORT. LUNG SOUNDS DIMINISHED. ABDOMEN SOFT/TENDERNESS NOTED TO LEFT SIDE WHERE HEMATOMA IS NOTED. AFLUTTER ON TELEMETRY. O2 SATURATION HAS MAINTAINED 92-96% ON 3 L NC. REDNESS AND SCATTERED SCABS NOTED TO BLE. WILL CONTINUE TO MONITOR.
[2024-11-04] MEDS: BUMETANIDE 1MG/4ML VIAL 2 MG IV (16:29)
[2024-11-04] MEDS: GABAPENTIN 600MG TABLET 600 MG PO (21:01)
[2024-11-04] MEDS: PANTOPRAZOLE 40MG TABLET 40 MG PO (21:01)
[2024-11-04] MEDS: TAMSULOSIN 0.4MG CAPSULE 0.4 MG PO (21:01)
[2024-11-05] VITALS: BP 124/52; PULSE 60; PULSE 63; RESP 16; TEMP 36.8; O2SAT 97
[2024-11-05] MEDS: guaiFENesin 600 MG TAB.ER.12H PO (01:00)
[2024-11-05 04:00] VITALS: BP 124/64; PULSE 60; PULSE 62; RESP 20; TEMP 37.1; O2SAT 96; BMI 35.6
[2024-11-05] MEDS: TIOTROPIUM IH ×2 (06:08→06:15)
[2024-11-05] MEDS: METHOCARBAMOL 500MG TABLET 750 MG PO (06:08)
[2024-11-05] MEDS: OLODATEROL IH ×2 (06:08→06:15)
[2024-11-05] MEDS: ACETAMINOPHEN 325MG TAB 650 MG PO (06:13)
[2024-11-05 06:36] LABS: Basophils # 0.1 K/mm3 (0-0.2); Basophils % 0.7 % (0.1-2.0); Eosinophils # 0.2 K/mm3 (0.0-0.4); Eosinophils % 2.6 % (0.1-12.0); Hematocrit 38.9 % (42.0-52.0); Hemoglobin 12.2 g/dL (14.1-18.0); Lymphocytes # 1.1 K/mm3 (0.7-4.5); Lymphocytes % 12.9 % (10-50); Mean Corpuscular HGB Conc 31.4 g/dL (31.8-35.4); Mean Corpuscular Hemoglobin 28.2 pg (27.0-31.2); Mean Platelet Volume 9.4 fl (7.4-10.4); Monocytes # 0.9 K/mm3 (0.1-1.0); Monocytes % 10.6 % (1.7-9.3); Neutrophils # 6.2 K/mm3 (1.8-7.8); Neutrophils % 72.7 % (37.0-80.0); Platelet Count 203 K/mm3 (142-424); Red Blood Count 4.32 M/mm3 (4.60-6.20); Red Cell Distribution Width 14.5 % (11.5-17.5); White Blood Count 8.5 K/mm3 (4.8-10.8)
[2024-11-05 06:42] LABS: POC Glucose,Bedside 173 (70-110)
--- NOTE | 2024-11-05 06:49 | PC.NURSE ---
Alert and oriented. Complained of pain and spasms to back multiple times, treated per nov. 3L NC, O2 >90%. Lung sounds diminished. Call light in reach.
[2024-11-05 06:53] LABS: Blood Urea Nitrogen 15 mg/dl (9-20); Calcium 8.2 mg/dl (8.4-10.2); Chloride 93 mmol/L (98-107); Creatinine Clearance Estimated 112 mL/min (50-200); Estimated Glomerular Filt Rate 96 ml/min (>60); GFR (African American) 116 ML/MIN (>60); Glucose 174 mg/dl (74-100); Potassium 3.6 mmoL/L (3.5-5.1); Sodium 135 mmol/L (136-145)
[2024-11-05 07:02] LABS: Alanine Aminotransferase 14 U/L (12-78); Albumin Level 2.9 g/dl (3.5-5.0); Alkaline Phosphatase 189 U/L (38-126); Aspartate Amino Transferase 23 U/L (17-59); Bilirubin,Direct 0.3 mg/dl (0.0-0.4); Bilirubin,Indirect 0.4 mg/dL (0.0-0.9); Bilirubin,Total 0.7 mg/dl (0.2-1.3); Bilirubin,Unconjugated 0.5 mg/dL (0.0-1.1); Cholesterol 168 mg/dl (140-200); HDL Cholesterol 24 mg/dl (40-60); Total Protein,Serum 6.1 g/dl (6.3-8.2); Triglycerides 199 mg/dl (30-150); VLDL Cholesterol 40 mg/dL (0-40)
[2024-11-05 07:08] LABS: Anion Gap 10.6 mEq/L (5-15); Carbon Dioxide 35 mmol/L (22.0-30.0)
[2024-11-05 07:13] LABS: Direct LDL Cholesterol 101.77 mg/dL (100-129)
[2024-11-05 07:45] VITALS: BP 125/59; PULSE 67; RESP 19; TEMP 36.8; O2SAT 96
[2024-11-05 08:00] VITALS: PULSE 60
--- NOTE | 2024-11-05 08:11 | P.PN_ITS ---
Subjective Patient reports: no new complaints and feels better Exam Data for Last 24 hours Vital signs and Labs for Last 24 Hours: Temp Pulse Resp BP Pulse Ox O2 Del Method O2 Flow Rate 98.2 F 67 19 125/59 L 96 Nasal Cannula 3 11/05/24 07:45 11/05/24 07:45 11/05/24 07:45 11/05/24 07:45 11/05/24 07:45 11/05/24 07:45 11/05/24 07:45 FiO2 32 11/04/24 19:38 Laboratory Results - last 24 hr 11/04/24 05:35: Total Counted 100, Neutrophils % (Manual) 83 H, Lymphocytes % (Manual) 13, Monocytes % (Manual) 4, Platelet Estimate Normal, RBC Morphology Normal 11/04/24 14:56: Troponin I < 0.01 11/05/24 06:20: POC Glucose 173 H 11/05/24 06:22: WBC 8.5 D, RBC 4.32 L, Hgb 12.2 L, Hct 38.9 L, MCV 90.0, MCH 28.2, MCHC 31.4 L, RDW 14.5, Plt Count 203, MPV 9.4, Neut % (Auto) 72.7, Lymph % (Auto) 12.9, [place] % (Auto) 10.6 H, Eos % (Auto) 2.6, Baso % (Auto) 0.7, Neut # (Auto) 6.2, Lymph # (Auto) 1.1, [place] # (Auto) 0.9, Eos # (Auto) 0.2, Baso # (Auto) 0.1, Sodium 135 L, Potassium 3.6, Chloride 93 L, Carbon Dioxide 35 H, Anion Gap 10.6, BUN 15, Creatinine 0.80 D, Estimated Creat Clear 112, Estimated GFR 96, Est GFR ( Amer) 116 D, Glucose 174 H, Calcium 8.2 L, Total Bilirubin 0.7, Direct Bilirubin 0.3, Conjugated Bilirubin 0.0, Indirect Bilirubin 0.4, Unconjugated Bilirubin 0.5, AST 23 D, ALT 14, Alkaline Gely sphatase 189 H, Total Protein 6.1 L, Albumin 2.9 L, Triglycerides 199 H, Cholesterol 168, LDL Cholesterol Direct 101.77, VLDL Cholesterol 40, HDL Cholesterol 24 L, Cholesterol/HDL Ratio 7.0 H I & O for Last 24 hours: Intake & Output 11/02/24 11/03/24 11/04/24 11/05/24 11:59 11:59 11:59 11:59 Intake Total 420 / 420 1350 / 1350 Output Total 1100 / 1100 1450 / 1450 Balance -680 / -680 -100 / -100 Weight 257 lb 11.526 oz 255 lb 1.6 oz Constitutional Constitutional: no acute distress *Routine Respiratory Exam Respiratory: Absent respiratory distress *Routine Cardiovascular Exam Cardiovascular: Absent tachycardia *Routine Abdominal Exam Comments: Left lower quadrant/pannicular hematoma essentially unchanged with regard to size. Central region less indurated. No spreading cellulitis. Progress Note: A&P Assessment and plan (1) Abdominal wall hematoma: Problem details: Chronic/recurrent left lower abdominal wall/pannicular hematoma Status: Acute Assessment and plan: No evidence of infection. Central region less indurated. No need for acute intervention Outpatient follow-up warranted
[2024-11-05] MEDS: TENOFOVIR ALAFENAMIDE PO (09:42)
[2024-11-05] MEDS: BICTEGRAVIR PO (09:42)
[2024-11-05] MEDS: EMTRICITABINE PO (09:42)
[2024-11-05 09:43] VITALS: PULSE 64
[2024-11-05] MEDS: CHOLECALCIFEROL 1,000 UNITS (25MCG) TABLET 25 MCG PO (09:43)
[2024-11-05] MEDS: DIGOXIN 0.125MG TABLET 125 MCG PO (09:43)
[2024-11-05] MEDS: VENLAFAXINE XR 75MG CAPSULE 150 MG PO (09:43)
[2024-11-05] MEDS: LACTOBACILLUS PROBIOTIC COMB CAPSULE 1 CAP PO (09:43)
[2024-11-05] MEDS: BUMETANIDE 1MG/4ML VIAL 2 MG IV (09:43)
[2024-11-05] MEDS: DOCUSATE SODIUM 100 MG CAPSULE PO (09:43)
[2024-11-05] MEDS: FINASTERIDE 5MG TABLET 5 MG PO (09:43)
[2024-11-05] MEDS: METOPROLOL TARTRATE 50MG TABLET 50 MG PO (09:43)
[2024-11-05] MEDS: ASCORBIC ACID 500MG TAB 500 MG PO (09:44)
[2024-11-05] MEDS: TRAMADOL 50MG TABLET 100 MG PO (09:49)
[2024-11-05 10:02] LABS: Magnesium 1.7 mg/dl (1.6-2.3)
--- NOTE | 2024-11-05 11:12 | EXP.DC.SUM ---
General Admission date:: 11/03/24 Discharge date: 11/05/24 HPI HPI HPI: This is a 69-year-old gentleman seen in consultation from the primary service for evaluation regarding possible infected pannicular hematoma. Please see HPI forwarded from admission H&P below. He was seen in consultation during a prior admission (August 2024) regarding a similar complaint. Reportedly, the prior hematoma resolved and a recurrent hematoma developed over the last day or so . Forwarded from admission H&P: A 69-year-old male with a history of COPD on chronic oxygen (3 L nasal cannula), congestive heart failure (CHF), morbid obesity with alveolar hypoventilation, severe degenerative spine disease with multiple hardware surgeries, GERD, benign prostatic hyperplasia (BPH), and atrial flutter (diagnosed August 2024) presents to the emergency department on November 03, 2024, for evaluation of a left lower abdominal wall hematoma with new pain and a recent fall. He initially developed the hematoma while on Lovenox, which stabilized under general surgery observation without intervention. It was painless until last night when pain increased, prompting home health to advise ED evaluation. No new trauma, fever, redness, or induration noted. En route to the hospital, he fell backwards while walking to the car, striking his back, neck, and head. Per his daughter, he did not lose consciousness but appeared disoriented. He was transported to the ED without further incidents. On arrival, vital signs showed hypotension (BP 97/41 mmHg), bradycardia (HR 60 bpm), respiratory rate 18 breaths/min, SpO2 96% on 3 L nasal cannula (baseline), and afebrile. Physical exam revealed a restless, slightly agitated, morbidly obese male, oriented only to person and place, not circumstance, with distractibility due to neck pain. He has tenderness in the cervical and thoracic paraspinous musculature without bony deformity, contusions, or abrasions, and moves all four extremities and head/neck spontaneously. Pupils are equal and reactive to light, breath sounds show late end-expiratory wheezes without increased work of breathing, and the abdomen is soft with an 8-10 cm left lower quadrant hematoma (firm collar, soft center, tender, no redness or firmness). Post-imaging (CT trauma scans), he became dusky, obtunded, with shallow breathing and SpO2 22%; interventions included jaw thrust, [id number] ventilation, Narcan (2 mg in 1 mg intervals), and BiPAP, improving responsiveness but not to baseline. Labs showed WBC 11.9 x10?/?L (Neut # 9.9), Hgb 13.6 g/dL, INR 0.98, Cr 1.5 mg/dL (GFR 46), glucose 200 mg/dL, alk phos 280 U/L, NT-pro-BNP 2130 pg/mL. ABG indicated pH 7.25, pCO2 81.8 mmHg, pO2 74.7 mmHg, O2 sat 95%, HCO3 35.2 mmol/L, base excess 8.0, lactate 1.4 mmol/L. CT abdomen/pelvis (preliminary) showed no extravasation into the hematoma or acute processes. Initial interventions included a crystalloid bolus, acetaminophen, and fentanyl (50 mcg, then 100 mcg for imaging), with Narcan and BiPAP added post-respiratory depression. Hospital Course Hospital Course Hospital Course: 69-year-old male with multiple chronic medical conditions including poorly controlled type 2 diabetes, HIV, CHF, COPD, ABEL, pharmacy and frequent falls. Presented to the ER due to fall with neck and back pain along with lower abdominal wall hematoma with new pain. Admitted for further management. Concern for possible abscess. Surgery evaluated. No plan for intervention. Hematoma appears stable. Cardiology was also consulted to assist with care of A-fib and heart failure. Recommendations as below. Patient doing better. On regimen to discharge home. Stable at this time. Strongly recommend placement of patient has help at home and prefers to discharge home with family and home health. Stable at this time. Problems addressed as follows: Acute on chronic heart failure with preserved ejection fraction Atrial flutter Hypertension -Cardiology consulted, evaluated patient and assisted with adjustment of medication. Patient was diuresed aggressively with 2 mg Bumex IV twice daily. Showed improvement in volume status. Repeat limited echo obtained to evaluate LV function, EF was normal in August. Continues to remain normal. Troponins were unremarkable. Blood pressure normal. Continue home regimen for blood pressure and A-fib. Continue digoxin and metoprolol per home regimen. - Agree with holding anticoagulation due to risk of bleed given his recurrent falls. Hematoma, left lower abdominal wall - No definitive evidence of underlying infection. Findings consistent with resolving hematoma that has recurred. Size radiographically is consistent with collection noted in August 2024. No indication for aspiration or drainage at this time. Surgery evaluated, recommended no intervention at this time. Hemoglobin stable between 12 and 13. No active signs of bleeding. White count normalized to 8.5 by day of discharge. Will continue to hold anticoagulation. Acute fall with neck and Back Pain - Fall backwards striking head, neck, back; no LOC, disoriented post-fall, neck/thoracic tenderness, moves all extremities. CT prelim: no acute injury. PMH: Spine disease, dementia risk (disorientation). Continue conservative pain management. Therapy evaluated. Would benefit from placement but elected to go home with home health and family assisting him. High risk for falls and injury. Has fallen many times previously. Counseled on risks of falls and fractures. Encouraged assistive devices at home such as cane or walker or wheelchair to mobilize safely. Decompensated Respiratory Failure (Acute on Chronic) - Most consistent with secondary to oversedation and polypharmacy. Improved within first 24 hours. Avoiding narcotics. Nasal cannula weaned to patient's baseline. Showing improvement with decreased pain regimen. Altered Mental Status (Encephalopathy) -Consistent with toxic encephalopathy due to polypharmacy. Compounded by past medical history of dementia, COPD, CHF. Became worse after medication in the ER for imaging. Improved with Narcan. Improved to baseline mentation. Caution with oversedation pharmacy. No controlled substances prescribed at discharge Mild Renal Dysfunction - Cr 1.5, GFR 46, BUN 17 on admission. Improved during admission to BUN 15, creatinine 0.8. Needs repeat labs in 1 to 2 weeks to monitor stability of kidney function and electrolytes PT and OT evaluated patient, recommend placement. He is adamant he will go home with home health as he has family to assist at home as well as home health coming in. Patient high risk for readmission. Strong concern about discharging home however understand patient's autonomy to make his own decisions. Family supportive of patient's decision Total time spent on discharge 34 minutes in counseling, documentation, chart review, and direct care with patient. Exam Data for Last 24 hours Vital signs and Labs for Last 24 Hours: Temp Pulse Resp BP Pulse Ox O2 Del Method O2 Flow Rate 98.2 F 64 19 125/59 L 96 Nasal Cannula 3 11/05/24 07:45 11/05/24 09:43 11/05/24 07:45 11/05/24 07:45 11/05/24 07:45 11/05/24 10:16 11/05/24 10:16 FiO2 32 11/04/24 19:38 Laboratory Results - last 24 hr 11/04/24 14:56: Troponin I < 0.01 11/05/24 06:20: POC Glucose 173 H 11/05/24 06:22: WBC 8.5 D, RBC 4.32 L, Hgb 12.2 L, Hct 38.9 L, MCV 90.0, MCH 28.2, MCHC 31.4 L, RDW 14.5, Plt Count 203, MPV 9.4, Neut % (Auto) 72.7, Lymph % (Auto) 12.9, [place] % (Auto) 10.6 H, Eos % (Auto) 2.6, Baso % (Auto) 0.7, Neut # (Auto) 6.2, Lymph # (Auto) 1.1, [place] # (Auto) 0.9, Eos # (Auto) 0.2, Baso # (Auto) 0.1, Sodium 135 L, Potassium 3.6, Chloride 93 L, Carbon Dioxide 35 H, Anion Gap 10.6, BUN 15, Creatinine 0.80 D, Estimated Creat Clear 112, Estimated GFR 96, Est GFR ( Amer) 116 D, Glucose 174 H, Calcium 8.2 L, Magnesium 1.7, Total Bilirubin 0.7, Direct Bilirubin 0.3, Conjugated Bilirubin 0.0, Indirect Bilirubin 0.4, Unconjugated Bilirubin 0.5, AST 23 D, ALT 14, Alkaline Phosphatase 189 H, Total Protein 6.1 L, Albumin 2.9 L, Triglycerides 199 H, Cholesterol 168, LDL Cholesterol Direct 101.77, VLDL Cholesterol 40, HDL Cholesterol 24 L, Cholesterol/HDL Ratio 7.0 H I & O for Last 24 hours: Intake & Output 11/02/24 11/03/24 11/04/24 11/05/24 23:59 23:59 23:59 23:59 Intake Total 810 / 1410 960 / 960 Output Total 2250 / 2550 700 / 700 Balance -1440 / -1140 260 / 260 Weight 116.9 kg 116.9 kg 115.711 kg Constitutional Constitutional: no acute distress, obese, chronically ill appearing, disheveled and cooperative *Routine HEENT Exam Head: Present normocephalic Eye: Present EOMI and PERRL ENT: Present mucous membranes moist *Routine Neck Exam Neck: Present supple; Absent lymphadenopathy *Routine Respiratory Exam Respiratory: Present CTA bilaterally; Absent rhonchi, wheezes or crackles *Routine Cardiovascular Exam Cardiovascular: Present irregularly irregular *Routine Abdominal Exam Abdominal: Present soft, normoactive bowel sounds and tenderness Comments: Left lower quadrant abdominal protrusion/Hematoma of pannus, no erythema, mild TTP. no warmth. *Routine Rectal Exam Patient deferred: visual exam *Routine Exam Patient deferred: penile exam *Routine Extremities Exam Extremities: Absent cyanosis, clubbing or edema *Routine Skin Exam Skin: Present warm; Absent rash *Routine Neurological Exam Neurological: Present alert, oriented X3 and moving all extremities; Absent altered mental status Results Data Completed and Pending Labs on day of discharge: Labs from last 24 hours 11/05/24 11/05/24 11/04/24 06:22 06:20 14:56 WBC 8.5 D RBC 4.32 L Hgb 12.2 L Hct 38.9 L MCV 90.0 MCH 28.2 MCHC 31.4 L RDW 14.5 Plt Count 203 MPV 9.4 Neut % (Auto) 72.7 Lymph % (Auto) 12.9 [place] % (Auto) 10.6 H Eos % (Auto) 2.6 Baso % (Auto) 0.7 Neut # (Auto) 6.2 Lymph # (Auto) 1.1 [place] # (Auto) 0.9 Eos # (Auto) 0.2 Baso # (Auto) 0.1 Sodium 135 L Potassium 3.6 Chloride 93 L Carbon Dioxide 35 H Anion Gap 10.6 BUN 15 Creatinine 0.80 D Estimated Creat Clear 112 Estimated GFR 96 Est GFR ( Amer) 116 D Glucose 174 H POC Glucose 173 H Calcium 8.2 L Magnesium 1.7 Total Bilirubin 0.7 Direct Bilirubin 0.3 Conjugated Bilirubin 0.0 Indirect Bilirubin 0.4 Unconjugated Bilirubin 0.5 AST 23 D ALT 14 Alkaline Phosphatase 189 H Troponin I < 0.01 Total Protein 6.1 L Albumin 2.9 L Triglycerides 199 H Cholesterol 168 LDL Cholesterol Direct 101.77 VLDL Cholesterol 40 HDL Cholesterol 24 L Cholesterol/HDL Ratio 7.0 H DS: Diagnosis Discharge Diagnosis (1) Abdominal wall hematoma: Status: Acute Code(s): S30.1XXA - Contusion of abdominal wall, initial encounter Qualifiers: Encounter type: initial encounter Qualified Code(s): S30.1XXA - Contusion of abdominal wall, initial encounter Problem details: Chronic/recurrent left lower abdominal wall/pannicular hematoma Meds Home Medications and Allergies Home Medications ?Medication ?Instructions ?Recorded ?Confirmed ?Type finasteride 5 mg tablet 5 mg PO DAILY 11/13/18 11/04/24 History tamsulosin 0.4 mg capsule 0.4 mg PO HS 01/06/20 11/04/24 History methocarbamol 750 mg tablet 750 mg PO Q6HP PRN Muscle Spasm 11/26/20 11/04/24 History cholecalciferol (vitamin D3) 25 25 mcg PO DAILY 12/30/20 11/04/24 History mcg (1,000 unit) capsule venlafaxine 150 mg 150 mg PO DAILY 09/16/23 11/04/24 History capsule,extended release 24 hr (Effexor XR) tramadol 50 mg tablet 50 mg PO 0900,1700 08/19/24 11/04/24 History albuterol sulfate 90 mcg/actuation 1 inh inhalation QIDP PRN 08/20/24 11/04/24 History aerosol inhaler Shortness Of Breath sitagliptin 100 mg tablet 100 mg PO DAILY 08/20/24 11/04/24 History pantoprazole 40 mg tablet,delayed 40 mg PO DAILY 30 days #0 tabs 08/23/24 11/04/24 Rx release digoxin 125 mcg (0.125 mg) tablet 125 mcg PO DAILY #90 tabs 09/16/24 11/04/24 Rx aspirin 81 mg capsule 81 mg PO DAILY 11/04/24 11/04/24 History bictegravir 50 mg-emtricitabine 1 tab PO DAILY 11/04/24 11/04/24 History 200 mg-tenofovir alafenam 25 mg tablet (Biktarvy) gabapentin 300 mg capsule 600 mg PO DAILY 11/04/24 11/04/24 History gabapentin 300 mg capsule 900 mg PO 1700,2100 11/04/24 11/04/24 History lidocaine 5 % topical patch 2 patch topical DAILY 11/04/24 11/04/24 History metoprolol tartrate 100 mg tablet 50 mg PO BID 11/04/24 11/04/24 History tiotropium 2.5 mcg-olodaterol 2.5 2 puff inhalation DAILY 11/04/24 11/04/24 History mcg/actuation mist for inhalation (Stiolto Respimat) tramadol 50 mg tablet 100 mg PO HS 11/04/24 11/04/24 History bumetanide 2 mg tablet 2 mg PO BIDL 30 days #60 tabs 11/05/24 Rx New Prescriptions to Start Prescriptions: [place] Allergies Allergy/AdvReac Type Severity Reaction Status Date / Time SANDRA Inhibitors Allergy Unknown Unknown Verified 09/16/24 08:44 allergy reaction clofibrate Allergy Unknown Unknown Verified 09/16/24 08:44 allergy reaction enalapril Allergy Unknown Unknown Verified 09/16/24 08:44 allergy reaction erythromycin base Allergy Unknown Unknown Verified 09/16/24 08:44 allergy reaction gemfibrozil Allergy Unknown Unknown Verified 09/16/24 08:44 allergy reaction hepatitis A virus vaccine Allergy Unknown Unknown Verified 09/16/24 08:44 allergy reaction hydralazine Allergy Unknown Unknown Verified 09/16/24 08:44 allergy reaction Macrolide Antibiotics Allergy Unknown Unknown Verified 09/16/24 08:44 allergy reaction pravastatin (From Pravachol) Allergy Unknown Unknown Verified 09/16/24 08:44 allergy reaction Yydujxe-[id number] Reductase Allergy Unknown Unknown Verified 09/16/24 08:44 Inhibitor (Qsltfod-Jbp-Zfy allergy Reductase Inhibitor) reaction Discharge Plan Disposition Patient Disposition: Home Health Service Condition: Fair Discharge Order Discharge Orders: Discharge Order (Routine); Ordered 11/05/24 Ordered By: Negrito Patricio Follow up Plan Follow up with: Bruce Faith MD [Primary Care Provider] - 11/12/24 11:00 am Shawn Mcghee MD [Staff Physician] - 11/12/24 9:15 am Prescriptions/Medication Reconciliation: Continued cholecalciferol (vitamin D3) 25 mcg (1,000 unit) capsule 25 mcg PO DAILY digoxin 125 mcg (0.125 mg) tablet 125 mcg PO DAILY Qty: 90 3RF finasteride 5 MG tablet 5 mg PO DAILY tamsulosin 0.4 MG capsule 0.4 mg PO HS methocarbamol 750 MG tablet 750 mg PO Q6HP PRN (Reason: Muscle Spasm) tramadol 50 mg tablet 50 mg PO 0900,1700 Patient Comments: 50 MG orally every 6 hours as needed As Needed for Severe Pain (Scale Score 7-10) for 30 days Rx Instructions: TAKE 1 TABLET PO EVERY MORNING, TAKE 1 TABLET EVERY EVENING, TAKE 1.5 TABLETS AT BEDTIME FOR PAIN albuterol sulfate 90 mcg/actuation Hfa Aerosol Inhaler 1 inh INHALATION QIDP PRN (Reason: Shortness Of Breath) sitagliptin 100 mg Tablet 100 mg PO DAILY pantoprazole 40 MG tablet,delayed release (DR/EC) 40 mg PO DAILY 30 Days Qty: 0 0RF lidocaine 5 % Adhesive Patch,Medicated 2 patch TOPICAL DAILY Rx Instructions: leave on most painful area for up to 12 hrs Biktarvy 50-200-25 mg Tablet 1 tab PO DAILY aspirin 81 mg Capsule 81 mg PO DAILY Stiolto Respimat 2.5-2.5 mcg/actuation Mist 2 puff INHALATION DAILY metoprolol tartrate 100 mg Tablet 50 mg PO BID gabapentin 300 mg Capsule 900 mg PO 1700,2100 gabapentin 300 mg Capsule 600 mg PO DAILY tramadol 50 mg Tablet 100 mg PO HS venlafaxine [Effexor XR] 150 mg Capsule,Extended Release 24hr 150 mg PO DAILY Changed bumetanide 2 mg Tablet 2 mg PO BIDL 30 Days Qty: 60 0RF Rx Instructions: ONE TABLET BY MOUTH DAILY, TAKE ADDITIONAL EVENING DOSE FOR WEIGHT GAIN OF 3 LB IN 24 HOURS OR 5 LB IN A WEEK. Problem Reconciliation Problems Reviewed?: Yes Patient Discharge Instructions ACTIVITY: Continue current activity DIET: continue same diet Patient Instructions: DI for Syncope in Adults (Fainting), How to Prevent Falls, DI for Respiratory Failure Print Language: Arabic Providers Primary Care Provider: Bruce Faith Admit Provider: Kuldeep Crespo Attending Provider: Kuldeep Crespo
--- NOTE | 2024-11-05 13:10 | SW/DCPLANNER ---
Faxed papers to [email or web address] for patient can resume their care. [email or web address] recieved patients paperwork. I let [email or web address] know that patient was being D/C today. Lyndsay Husain
--- NOTE | 2024-11-05 13:16 | P.PN_ITS ---
Subjective Subjective Date: 11/05/24 Time: 09:30 Principal diagnosis: acute on chronic HFpEF, atrial flutter Interval history: This is a 69-year-old who presented to the emergency department after a fall. The patient was hypotensive and found to have an BNP over 2000. The patient is being treated for an acute on chronic exacerbation of HFpEF. He has diuresed well overnight with a -1440 fluid balance. Today he feels much better. He s tates his lower extremity edema has improved. He denies any chest pain or pressure. He states his shortness of breath is significantly improved. He denies any fever, chills, nausea, vomiting or diarrhea. Exam Data for Last 24 hours Vital signs and Labs for Last 24 Hours: Temp Pulse Resp BP Pulse Ox O2 Del Method O2 Flow Rate 98.2 F 64 19 125/59 L 96 Nasal Cannula 3 11/05/24 07:45 11/05/24 09:43 11/05/24 07:45 11/05/24 07:45 11/05/24 07:45 11/05/24 10:16 11/05/24 10:16 FiO2 32 11/04/24 19:38 Laboratory Results - last 24 hr 11/04/24 14:56: Troponin I < 0.01 11/05/24 06:20: POC Glucose 173 H 11/05/24 06:22: WBC 8.5 D, RBC 4.32 L, Hgb 12.2 L, Hct 38.9 L, MCV 90.0, MCH 28.2, MCHC 31.4 L, RDW 14.5, Plt Count 203, MPV 9.4, Neut % (Auto) 72.7, Lymph % (Auto) 12.9, [place] % (Auto) 10.6 H, Eos % (Auto) 2.6, Baso % (Auto) 0.7, Neut # (Auto) 6.2, Lymph # (Auto) 1.1, [place] # (Auto) 0.9, Eos # (Auto) 0.2, Baso # (Auto) 0.1, Sodium 135 L, Potassium 3.6, Chloride 93 L, Carbon Dioxide 35 H, Anion Gap 10.6, BUN 15, Creatinine 0.80 D, Estimated Creat Clear 112, Estimated GFR 96, Est GFR ( Amer) 116 D, Glucose 174 H, Calcium 8.2 L, Magnesium 1.7, Total Bilirubin 0.7, Direct Bilirubin 0.3, Conjugated Bilirubin 0.0, Indir ect Bilirubin 0.4, Unconjugated Bilirubin 0.5, AST 23 D, ALT 14, Alkaline Phosphatase 189 H, Total Protein 6.1 L, Albumin 2.9 L, Triglycerides 199 H, Cholesterol 168, LDL Cholesterol Direct 101.77, VLDL Cholesterol 40, HDL Cholesterol 24 L, Cholesterol/HDL Ratio 7.0 H I & O for Last 24 hours: Intake & Output 11/02/24 11/03/24 11/04/24 11/05/24 23:59 23:59 23:59 23:59 Intake Total 810 / 1410 960 / 960 Output Total 2250 / 2550 700 / 700 Balance -1440 / -1140 260 / 260 Weight 257 lb 11.526 oz 257 lb 11.526 oz 255 lb 1.6 oz Constitutional Constitutional: no acute distress and obese *Routine HEENT Exam Head: Present normocephalic and atraumatic ENT: Present mucous membranes moist *Routine Neck Exam Neck: Present supple, full ROM and normal carotid upstroke; Absent JVD, carotid bruit or lymphadenopathy *Routine Respiratory Exam Respiratory: Present decreased breath sounds, normal respiratory effort and symm etric chest movement *Routine Cardiovascular Exam Cardiovascular: Present Normal S1, Normal S2 and irregularly irregular; Absent murmur or gallop *Routine Abdominal Exam Abdominal: Present soft and normoactive bowel sounds; Absent tenderness, distended or organomegaly *Routine Extremities Exam Extremities: Present full ROM, pulses intact and normal capillary refill; Absent cyanosis, clubbing or edema Comments: Venous stasis ulcers with scabbing to the bilateral lower extremities *Routine Skin Exam Skin: Present intact and warm; Absent erythema *Routine Neurological Exam Neurological: Present alert, oriented X3 and CN II-XII intact; Absent sensory deficit or motor deficit Routine Psychiatric Exam Psychiatric: Present normal affect Progress Note: A&P Assessment and plan (1) Atrial flutter: Status: Acute (2) Acute on chronic heart failure with preserved ejection fraction (HFpEF): Status: Acute (3) Abdominal wall hematoma: Problem details: Chronic/recurrent left lower abdominal wall/pannicular hematoma Status: Acute (4) Fall: Status: Acute (5) Syncope: Status: Acute (6) Atrial fibrillation: Status: Acute (7) Hypertension: Status: Acute (8) HIV disease: Status: Chronic (9) Type 2 diabetes mellitus with vascular disease: Status: Chronic Assessment and Plan Assessment and Plan for All Diagnoses:: Plan: 1. The patient was admitted to the hospital after a fall. He does have a large hematoma to the left lower quadrant of his abdominal wall. Surgery has been consulted. Will defer. 2. The patient does have an elevated BNP. His EF is normal. He does have moderate RV dilatation. Patient is having an acute on chronic exacerbation of HFpEF. Continue IV diuretics for continued diuresis. 3. EF is normal. There is a pleural effusion noted. Patient needs continued diuresis. 4. The patient denies any chest pain or pressure. No plans for invasive left cardiac catheterization. Troponin is negative. 5. His blood pressure is well-controlled. Continue metoprolol. 6. His LDL goal is less than 100. His LDL is 101. 7. Atrial flutter is rate controlled. Continue digoxin and metoprolol. 8. No long-term anticoagulation due to his high falls risk. 9. Further recommendations will be made pending the patient's response to treatment. Thank you for the opportunity to help participate in the care of this patient. All recommendations and orders are per Dr. Page.
--- NOTE | 2024-11-07 10:46 | SW/DCPLANNER ---
Spoke with patient on the phone. Patient stated that she is doing well. Patient stated that he is aware of his upcoming appointments. Patient stated that they did not give him any new medicine and that he is aware of the medicine they changed. Patient stated that he has no concerns or questions at this time. Lyndsay Husain
== END 2024-11-05 12:11 | disposition home health service (06) | DRG 604 ==
LOC: ER 17:28 → 2ND 18:50
PROVIDERS: Nurse Practitioner Family; Physician Assistant; Admitting Provider Student in an Organized Health Care Education/Training Program; Emergency Provider Emergency Medicine; PCP Internal Medicine; Visit Provider Student in an Organized Health Care Education/Training Program
DX: S30.1XXA Contusion of abdominal wall, initial encounter (principal); G92.8 Other toxic encephalopathy; I50.33 Acute on chronic diastolic (congestive) heart failure; J96.21 Acute and chronic respiratory failure with hypoxia; J96.22 Acute and chronic respiratory failure with hypercapnia; I48.92 Unspecified atrial flutter; E66.2 Morbid (severe) obesity with alveolar hypoventilation; B20 Human immunodeficiency virus [HIV] disease; J44.9 Chronic obstructive pulmonary disease, unspecified; Z68.35 Body mass index [BMI] 35.0-35.9, adult; I11.0 Hypertensive heart disease with heart failure; E11.9 Type 2 diabetes mellitus without complications; Z99.81 Dependence on supplemental oxygen; Z79.899 Other long term (current) drug therapy; R29.6 Repeated falls; W01.0XXA Fall on same level from slipping, tripping and stumbling without subsequent striking against object, initial encounter; Y92.014 Private driveway to single-family (private) house as the place of occurrence of the external cause; Z79.4 Long term (current) use of insulin; M54.9 Dorsalgia, unspecified; M54.2 Cervicalgia; E78.5 Hyperlipidemia, unspecified; N40.0 Benign prostatic hyperplasia without lower urinary tract symptoms; I25.10 Atherosclerotic heart disease of native coronary artery without angina pectoris; K21.9 Gastro-esophageal reflux disease without esophagitis; F03.90 Unspecified dementia, unspecified severity, without behavioral disturbance, psychotic disturbance, mood disturbance, and anxiety; Z88.1 Allergy status to other antibiotic agents; Z88.7 Allergy status to serum and vaccine; Z88.8 Allergy status to other drugs, medicaments and biological substances; N28.9 Disorder of kidney and ureter, unspecified; T42.4X5A Adverse effect of benzodiazepines, initial encounter; T40.415A Adverse effect of fentanyl or fentanyl analogs, initial encounter
CPT/HCPCS: 36415; 70450; 70496; 70498; 71045; 72125; 72128; 72131; 72192; 74177; 80048; 80053; 80061; 80076; 82803; 82962; 83605; 83735; 83880; 84484; 85007; 85025; 85610; 87633; 93005; 93308; 94640; 94660; 94761; 97163; 97165; 97530; 99291; J0131; J1939; J2310; J3010; J3360; J7030; J7620; Q9967

== ENCOUNTER 2025-02-10 05:10 | Emergency (ER) | payer MEDICARE, SELFPAY ==
[2025-02-10 05:16] VITALS: BP 107/88; PULSE 86; RESP 22; TEMP 36.8; O2SAT 95; BMI 41.0
--- NOTE | 2025-02-10 05:17 | CT_ITS ---
PROCEDURE INFORMATION: Exam: CT Cervical Spine Without Contrast Exam date and time: 02/10/2025 5:48 AM Age: 69 years old Clinical indication: Injury or trauma; Additional info: Fall TECHNIQUE: Imaging protocol: Computed tomography of the cervical spine without contrast. Radiation optimization: All CT scans at this facility use at least one of these dose optimization techniques: automated exposure control; mA and/or kV adjustment per patient size (includes targeted exams where dose is matched to clinical indication); or iterative reconstruction. COMPARISON: No relevant prior studies available. FINDINGS: Vertebrae: No acute fracture. Normal alignment. Straightening of cervical spine. 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 Degenerative changes of atlantodental articulation. Flowing anterior osteophytes. Mastoid air cells: Partial opacification of mastoids. Lungs: Unremarkable as visualized. Vasculature: Mild atherosclerotic disease. Soft tissues: Unremarkable. IMPRESSION: 1. No fracture. 2. Mastoid disease.
--- NOTE | 2025-02-10 05:17 | CT_ITS ---
PROCEDURE INFORMATION: Exam: CT Abdomen And Pelvis Without Contrast Exam date and time: 02/10/2025 5:54 AM Age: 69 years old Clinical indication: Injury or trauma; Additional info: Fall TECHNIQUE: Imaging protocol: Computed tomography of the abdomen and pelvis without contrast. Radiation optimization: All CT scans at this facility use at least one of these dose optimization techniques: automated exposure control; mA and/or kV adjustment per patient size (includes targeted exams where dose is matched to clinical indication); or iterative reconstruction. COMPARISON: CT ABDOMEN PELVIS W CON 11/03/2024 3:31 PM FINDINGS: Lungs: There are atelectatic changes at the lung bases. There is an old calcified granuloma of the right lung base. Pleural spaces: There are tiny bilateral pleural effusions. Heart: There are aortic valve calcifications. There is calcified coronary artery disease. Liver: The liver is normal in appearance. No focal liver mass or intrahepatic biliary dilatation. Gallbladder and biliary ducts: Cholelithiasis and suspected biliary sludge but no CT features of cholecystitis, similar in appearance to the prior study. Pancreas: The pancreas is normal in appearance. No evidence of pancreatic ductal dilatation. Spleen: Splenomegaly. The spleen measures about 14.5 cm. No focal splenic lesion appreciated. Adrenal glands: The adrenal glands are normal in appearance. Kidneys and ureters: The kidneys are normal in appearance. No evidence of hydronephrosis or hydroureter. No nephroureteral calculi are identified. Stomach and bowel: The small bowel loops are not thickened and are nondilated. The colon is unremarkable. Appendix: The appendix is not identified, but there are no inflammatory changes in its expected region. Intraperitoneal space: Unremarkable. No free air. No significant fluid collection. Vasculature: Unremarkable. No abdominal aortic aneurysm. Lymph nodes: There are partially imaged old calcified right hilar lymph nodes. Urinary bladder: The urinary bladder is normal in appearance. Reproductive: Unremarkable as visualized. Bones/joints: Partially imaged bipedicular fusion of the lower thoracic spine. There are multilevel chronic degenerative changes in the lumbar spine, similar in appearance to the prior study. No acute fractures identified. Soft tissues: There is chronic stranding of the subcutaneous fat along the inferior aspect of the abdominal wall pannus. The fluid collection in the pannus in the left lower quadrant that was seen at the time of the prior study is smaller now measuring about 5.2 cm in greatest transverse dimension (previously 8.4 cm on the November 2024 exam). This fluid collection likely represents chronic phlegmon versus resolving hematoma. No gas in the soft tissues. There is a stable intramuscular lipoma in the left lower quadrant anterior abdominal wall. IMPRESSION: 1. No CT evidence of an acute traumatic abnormality in the abdomen or pelvis. 2. Bibasilar atelectasis and tiny bilateral pleural effusions. 3. Cholelithiasis and suspected biliary sludge but no CT evidence of cholecystitis. 4. The chronic stranding in the subcutaneous fat of the inferior aspect of the abdominal wall pannus is again noted. The chronic fluid collection in the left lower quadrant anterior abdominal wall pannus is smaller as above and likely represents improving phlegmon versus resolving hematoma. 5. Splenomegaly.
--- NOTE | 2025-02-10 05:17 | CT_ITS ---
PROCEDURE INFORMATION: Exam: CT Chest Without Contrast; Diagnostic Exam date and time: 02/10/2025 5:45 AM Age: 69 years old Clinical indication: Injury or trauma; Additional info: Fall, left thoracic back pain TECHNIQUE: Imaging protocol: Diagnostic computed tomography of the chest without contrast. Radiation optimization: All CT scans at this facility use at least one of these dose optimization techniques: automated exposure control; mA and/or kV adjustment per patient size (includes targeted exams where dose is matched to clinical indication); or iterative reconstruction. COMPARISON: CT CHEST WO CON 07/26/2024 11:03 AM FINDINGS: Lungs: There is consolidation in the dependent portion of each lower lobe likely representing atelectasis. There are wispy infiltrates in the inferior and posterior aspect of the right upper lobe which could represent pneumonia and/or aspiration. Pleural spaces: Tiny bilateral pleural effusions. Heart: The heart is upper limits of normal for size. There is calcified coronary artery disease and aortic valve and mitral valve calcifications. No pericardial effusion. Lymph nodes: Unremarkable. No enlarged lymph nodes. Vasculature: The pulmonary arteries are enlarged with the main pulmonary artery measuring 4.7 cm in diameter, the right pulmonary artery measuring 3.7 cm in the left pulmonary artery measuring 3.6 cm. The findings suggest a component of pulmonary arterial hypertension. The thoracic aorta is nonaneurysmal. Bones/joints: There is a healed fracture of the left humeral head and neck. There are multiple old, healed left-sided rib fractures. Stable appearing chronic degenerative changes throughout the thoracic spine and stable appearing posterior surgical fusion of the thoracic spine in 2 segments involving T5-T7 and T8-T11. Stable suspected T12 hemangioma. No acute osseous lesions identified. Soft tissues: Unremarkable. IMPRESSION: 1. Wispy infiltrate in the inferior posterior right upper lobe which could represent pneumonia and/or aspiration. 2. Bibasilar atelectasis and tiny bilateral pleural effusions. 3. Calcified coronary artery disease and enlargement of the pulmonary arteries suggesting a component of pulmonary arterial hypertension. 4. No acute osseous lesions identified.
--- NOTE | 2025-02-10 05:17 | CT_ITS ---
PROCEDURE INFORMATION: Exam: CT Lumbar Spine Without Contrast Exam date and time: 02/10/2025 5:57 AM Age: 69 years old Clinical indication: Injury or trauma; Additional info: Fall TECHNIQUE: Imaging protocol: Computed tomography of the lumbar spine without contrast. Radiation optimization: All CT scans at this facility use at least one of these dose optimization techniques: automated exposure control; mA and/or kV adjustment per patient size (includes targeted exams where dose is matched to clinical indication); or iterative reconstruction. COMPARISON: CT LUMBAR SPINE WO CON 07/26/2024 10:56 AM FINDINGS: Bones/joints: No acute lumbosacral fracture. Normal alignment. There is a chronic partially calcified annulus disc bulge at L3-L4 which produces at least a moderate central canal stenosis. There are mild bilateral neural foraminal stenoses at L5-S1 secondary to chronic degenerative changes. Soft tissues: Unremarkable. IMPRESSION: Stable chronic degenerative changes of the lumbar spine without fracture.
--- NOTE | 2025-02-10 05:17 | CT_ITS ---
PROCEDURE INFORMATION: Exam: CT Head Without Contrast Exam date and time: 02/10/2025 5:43 AM Age: 69 years old Clinical indication: Injury or trauma; Additional info: Fall TECHNIQUE: Imaging protocol: Computed tomography of the head without contrast. Radiation optimization: All CT scans at this facility use at least one of these dose optimization techniques: automated exposure control; mA and/or kV adjustment per patient size (includes targeted exams where dose is matched to clinical indication); or iterative reconstruction. COMPARISON: CT ANGIO HEAD 11/03/2024 3:26 PM FINDINGS: Limitations: Suboptimal positioning. Brain: Ujvv-ul-[id number] atrophy. No definite intracranial hemorrhage. No mass. Few scattered foci of decreased attenuation within periventricular/subcortical white matter. No definite edema. Cerebral ventricles: No hydrocephalus. Paranasal sinuses: No acute sinusitis. Mastoid air cells: Partial opacification of mastoids. Orbital cavities: Unremarkable as visualized. Bones: No acute fracture. Chronic deformity medial wall of LEFT orbit. Soft tissues: Mild scalp swelling. IMPRESSION: 1. No definite intracranial hemorrhage. 2. Probable chronic microvascular ischemic changes. 3. Mastoid disease.
--- NOTE | 2025-02-10 05:17 | CT_ITS ---
PROCEDURE INFORMATION: Exam: CT Thoracic Spine Without Contrast Exam date and time: 02/10/2025 5:51 AM Age: 69 years old Clinical indication: Injury or trauma; Additional info: Fall, thoracic back pain TECHNIQUE: Imaging protocol: Computed tomography of the thoracic spine without contrast. Radiation optimization: All CT scans at this facility use at least one of these dose optimization techniques: automated exposure control; mA and/or kV adjustment per patient size (includes targeted exams where dose is matched to clinical indication); or iterative reconstruction. COMPARISON: CT THORACIC SPINE WO CON 09/16/2023 7:04 PM FINDINGS: Bones/joints: There is an intact posterior surgical fusion of the thoracic spine with bipedicular screws spanning T5 and T6 and a left unilateral transpedicular screw at T7 with intervening rods. There is also an intact posterior surgical fusion of the thoracic spine with bipedicular screws spanning T8-T11 with intervening rods. There is a stable hypodense lesion in the T12 vertebral body previously described as a hemangioma. No acute bony abnormality of the thoracic spine appreciated. Soft tissues: Unremarkable. IMPRESSION: Intact posterior surgical spinal fusion of the thoracic spine as described above. No acute injury of the thoracic spine visualized. Please see separately dictated CT chest report same day.
--- NOTE | 2025-02-10 05:21 | [facility].EDGENADL ---
Discharge Plan Disposition Patient Disposition: Home, Self-Care Condition: Fair Prescriptions Prescriptions: No Action cholecalciferol (vitamin D3) 25 mcg (1,000 unit) capsule 25 mcg PO DAILY digoxin 125 mcg (0.125 mg) tablet 125 mcg PO DAILY Qty: 90 3RF finasteride 5 MG tablet 5 mg PO DAILY tamsulosin 0.4 MG capsule 0.4 mg PO HS methocarbamol 750 MG tablet 750 mg PO Q6HP PRN (Reason: Muscle Spasm) tramadol 50 mg tablet 50 mg PO 0900,1700 Patient Comments: 50 MG orally every 6 hours as needed As Needed for Severe Pain (Scale Score 7-10) for 30 days Rx Instructions: TAKE 1 TABLET PO EVERY MORNING, TAKE 1 TABLET EVERY EVENING, TAKE 1.5 TABLETS AT BEDTIME FOR PAIN albuterol sulfate 90 mcg/actuation Hfa Aerosol Inhaler 1 inh INHALATION QIDP PRN (Reason: Shortness Of Breath) sitagliptin 100 mg Tablet 100 mg PO DAILY pantoprazole 40 MG tablet,delayed release (DR/EC) 40 mg PO DAILY 30 Days Qty: 0 0RF lidocaine 5 % Adhesive Patch,Medicated 2 patch TOPICAL DAILY Rx Instructions: leave on most painful area for up to 12 hrs Biktarvy 50-200-25 mg Tablet 1 tab PO DAILY aspirin 81 mg Capsule 81 mg PO DAILY Stiolto Respimat 2.5-2.5 mcg/actuation Mist 2 puff INHALATION DAILY metoprolol tartrate 100 mg Tablet 50 mg PO BID gabapentin 300 mg Capsule 900 mg PO 1700,2100 gabapentin 300 mg Capsule 600 mg PO DAILY tramadol 50 mg Tablet 100 mg PO HS bumetanide 2 mg Tablet 2 mg PO BIDL 30 Days Qty: 60 0RF Rx Instructions: ONE TABLET BY MOUTH DAILY, TAKE ADDITIONAL EVENING DOSE FOR WEIGHT GAIN OF 3 LB IN 24 HOURS OR 5 LB IN A WEEK. venlafaxine [Effexor XR] 150 mg Capsule,Extended Release 24hr 150 mg PO DAILY Referrals Follow up/Referrals: Bruce Faith MD [Primary Care Provider, Medical] - See instructions Activity Restrictions/Add. Instructions Additional Instructions/Restrictions: As we discussed, your CT scans did not show any new injuries but we did see old injuries that may have been made more painful by the fall. Your blood pressure is low after giving pain medications, however, after discussion with you and your family, including the option of further observation or treatment until your blood pressure improves, we we will be discharging you at this time. Please return with any new or worsening symptoms and follow-up with your primary care doctor. Clinical Impressions Clinical Impression: Back pain Qualifiers: Back pain location: thoracic back pain Chronicity: acute Back pain laterality: left Qualified Code(s): M54.6 - Pain in thoracic spine Print Language Print Language: Italian Discharge ED Provider: Jhonathan Ivory General Adult HPI <Jhonathan Ivory MD - Last Filed: 02/10/25 07:01> General Chief complaint: Fall Stated complaint: ao fall, 0200 Time Seen by Provider: 02/10/25 05:17 Mode of Arrival: Wheelchair Source of Information: Patient Description of Symptoms (Recalled from ER Triage Doc. by RN): patient fell at approximately 2 am and is having left shoulder/scapula pain. Denies LOC. Takes aspirin daily History of Present Illness HPI narrative: 69-year-old male with history of chronic respiratory failure, heart failure, pleural effusions, HIV, diabetes, atrial flutter, multiple falls in the past with back and rib fractures, presents for a fall. He got up to go to the bathroom and fell, landing on the floor on his back. He reports that he has severe pain between his left shoulder blade in the middle of his back. Denies hitting his head, loss of conscious, or other injuries. He is on aspirin only. Related Data Home Medications ?Medication ?Instructions ?Recorded ?Confirmed finasteride 5 mg tablet 5 mg PO DAILY 11/13/18 11/12/24 tamsulosin 0.4 mg capsule 0.4 mg PO HS 01/06/20 11/12/24 methocarbamol 750 mg tablet 750 mg PO Q6HP PRN Muscle Spasm 11/26/20 11/12/24 cholecalciferol (vitamin D3) 25 25 mcg PO DAILY 12/30/20 11/12/24 mcg (1,000 unit) capsule venlafaxine 150 mg 150 mg PO DAILY 09/16/23 11/12/24 capsule,extended release 24 hr (Effexor XR) tramadol 50 mg tablet 50 mg PO 0900,1700 08/19/24 11/12/24 albuterol sulfate 90 mcg/actuation 1 inh inhalation QIDP PRN 08/20/24 11/12/24 aerosol inhaler Shortness Of Breath sitagliptin 100 mg tablet 100 mg PO DAILY 08/20/24 11/12/24 aspirin 81 mg capsule 81 mg PO DAILY 11/04/24 11/12/24 bictegravir 50 mg-emtricitabine 1 tab PO DAILY 11/04/24 11/12/24 200 mg-tenofovir alafenam 25 mg tablet (Biktarvy) gabapentin 300 mg capsule 600 mg PO DAILY 11/04/24 11/12/24 gabapentin 300 mg capsule 900 mg PO 1700,2100 11/04/24 11/12/24 lidocaine 5 % topical patch 2 patch topical DAILY 11/04/24 11/12/24 metoprolol tartrate 100 mg tablet 50 mg PO BID 11/04/24 11/12/24 tiotropium 2.5 mcg-olodaterol 2.5 2 puff inhalation DAILY 11/04/24 11/12/24 mcg/actuation mist for inhalation (Stiolto Respimat) tramadol 50 mg tablet 100 mg PO HS 11/04/24 11/12/24 Previous Rx's ?Medication ?Instructions ?Recorded pantoprazole 40 mg tablet,delayed 40 mg PO DAILY 30 days #0 tabs 08/23/24 release digoxin 125 mcg (0.125 mg) tablet 125 mcg PO DAILY #90 tabs 09/16/24 bumetanide 2 mg tablet 2 mg PO BIDL 30 days #60 tabs 11/05/24 Allergies Allergy/AdvReac Type Severity Reaction Status Date / Time SANDRA Inhibitors Allergy Unknown Unknown Verified 11/12/24 09:01 allergy reaction clofibrate Allergy Unknown Unknown Verified 11/12/24 09:01 allergy reaction enalapril Allergy Unknown Unknown Verified 11/12/24 09:01 allergy reaction erythromycin base Allergy Unknown Unknown Verified 11/12/24 09:01 allergy reaction gemfibrozil Allergy Unknown Unknown Verified 11/12/24 09:01 allergy reaction hepatitis A virus vaccine Allergy Unknown Unknown Verified 11/12/24 09:01 allergy reaction hydralazine Allergy Unknown Unknown Verified 11/12/24 09:01 allergy reaction Macrolide Antibiotics Allergy Unknown Unknown Verified 11/12/24 09:01 allergy reaction pravastatin (From Pravachol) Allergy Unknown Unknown Verified 11/12/24 09:01 allergy reaction Hmhlavo-GUW-ThZ Reductase Allergy Unknown Unknown Verified 11/12/24 09:01 Inhibitor (Wnhjtxc-Fzl-Oqm allergy Reductase Inhibitor) reaction PFS <Jhonathan Ivory MD - Last Filed: 02/10/25 07:01> TIKI Disclaimer: The information contained in this section may have been updated after the patient was seen, as this information can be updated by other users. Medical History Encounter for monitoring digoxin therapy Diabetic toe ulcer Left second toe. Atrial flutter Acute on chronic heart failure with preserved ejection fraction (HFpEF) HLD (hyperlipidemia) GERD (gastroesophageal reflux disease) CAD (coronary artery disease) CHF (congestive heart failure) Pneumonia Pleural effusion, bilateral Acute respiratory failure with hypoxia and hypercarbia Hypertension Chronic venous stasis dermatitis of both lower extremities HIV (human immunodeficiency virus infection) Diabetes mellitus, type 2 Closed fracture of neck of left humerus GI bleed due to NSAIDs Morbid obesity with BMI of 45.0-49.9, adult Family History Other No significant family history Social History Smoking Status: Never smoker second hand exposure: No alcohol intake: never substance use type: denies use current occupational status: retired Travel in the last 8 weeks?: None household members: spouse and family housing: house current occupational exposures/hazards: No caffeine: Yes Have you lived/traveled outside [place] in past 30 days?: No Contact w/someone who lives/traveled outside [place] past 30 days?: No Exposure to someone with infectious disease in past 14 days?: No Do you have a fever (greater than 100.4 F or 38 C)?: No Have you tested positive for COVID-19?: No Exposed to someone with COVID-19 in past 14 days?: No Do you have a sore throat?: No Do you have a cough?: No Do you have any weakness?: No Do you have any diarrhea?: No Are you experiencing any unusual bleeding?: No Do you have any muscle aches/pain?: Yes Do you have any abdominal pain?: No Are you experiencing loss of taste or smell?: No Other Medical History Have you received the Flu Vaccine for this season: No Have you received the Pneumonia Vaccine: Yes <Jhonathan Ivory MD - Last Filed: 02/10/25 07:01> ROS Obtained: Yes All systems reviewed & no additional complaints except as documented Physical Exam <Jhonathan Ivory MD - Last Filed: 02/10/25 07:01> General General appearance: alert Comment: Uncomfortable appearing Head Head exam: atraumatic and normocephalic Eye Eye exam: Present normal appearance, PERRL and EOMI ENT ENT exam: Present normal oropharynx and normal external ear exam Neck Neck exam: Present normal inspection and full ROM Chest Chest inspection: Present normal inspection and symmetric chest wall rise; Absent tenderness Respiratory Respiratory exam: Present normal lung sounds bilaterally; Absent respiratory distress Cardiovascular Cardiovascular exam: Present regular rate and normal rhythm Abdominal Exam Abdominal exam: Present soft; Absent distention, tenderness or guarding Extremities Exam Extremities exam: Present normal inspection; Absent edema or joint swelling Back Exam Back exam: Present normal inspection and tenderness (Severe tenderness to the left thoracic back between the scapula and the midline thoracic spine) Neurological Exam Neurological exam: Present alert and oriented X3; Absent motor sensory deficit Psychiatric Psychiatric exam: Present normal affect and normal mood Skin Skin exam: Present warm, dry and normal color Lymphatic Lymphatic Findings: no adenopathy Medical Decision Making <Jhonathan Ivory MD - Last Filed: 02/10/25 07:01> Medical Records Medical records reviewed: Yes I reviewed the patient's medical records. Screening: Per USPSTF and CDC recommendations, given the prevalence of disease in our region, it is our hospital?s policy to screen for HIV and viral Hepatitis for all patients aged 18 and over and those with ongoing risk factors. Valentin Inquiry Pt receiving controlled substance: No Valentin was queried for this patient: No Vital Signs: 02/10/25 05:16 02/10/25 06:11 02/10/25 07:19 Temperature 98.2 F Temperature Source Oral Pulse Rate 87 85 Pulse Rate [Left] 86 Respiratory Rate 22 20 Blood Pressure 132/106 H 97/53 L Blood Pressure [Right Arm] 107/88 L Blood Pressure Mean 59 Blood Pressure Mean [Right Arm] 94 Blood Pressure Source Blood Pressure Source [Right Arm] Automatic Cuff Blood Pressure Position Blood Pressure Position [Right Arm] Sitting 02 Sat by Pulse Oximetry 95 97 95 Oxygen Delivery Method Nasal Cannula Nasal Cannula Oxygen Flow Rate (LPM) 2 2 02/10/25 07:30 02/10/25 08:06 Temperature 98.4 F Temperature Source Oral Pulse Rate 64 64 Pulse Rate [Left] Respiratory Rate 18 15 Blood Pressure 86/52 L 86/58 L Blood Pressure [Right Arm] Blood Pressure Mean 65 Blood Pressure Mean [Right Arm] Blood Pressure Source Automatic Cuff Blood Pressure Source [Right Arm] Blood Pressure Position Sitting Blood Pressure Position [Right Arm] 02 Sat by Pulse Oximetry 96 Oxygen Delivery Method Nasal Cannula Room Air Oxygen Flow Rate (LPM) 2 Lab Data Lab results reviewed: Yes I reviewed the patient's lab results. Lab Results 02/10/25 05:24: WBC 12.5 H, RBC 4.42 L, Hgb 13.1 L, Hct 40.7 L, MCV 92.1, MCH 29.6, MCHC 32.2, RDW 13.5, Plt Count 269, MPV 9.3, Neut % (Auto) 84.3 H, Lymph % (Auto) 7.1 L, [place] % (Auto) 6.0, Eos % (Auto) 1.6, Baso % (Auto) 0.5, Neut # (Auto) 10.6 H, Lymph # (Auto) 0.9, [place] # (Auto) 0.8, Eos # (Auto) 0.2, Baso # (Auto) 0.1, PT 11.7, INR 1.06, Sodium 133 L, Potassium 3.7, Chloride 86 L, Carbon Dioxide 42 H*, Anion Gap 8.7, BUN 16, Creatinine 1.00, Estimated Creat Clear 119, Estimated GFR 74, Est GFR ( Amer) 89, Glucose 344 H, Calcium 8.7, Total Bilirubin 0.6, AST 31, ALT 22, Alkaline Phosphatase 341 H, Total Protein 8.1 D, Albumin 3.6, Globulin 4.5 H, Albumin/Globulin Ratio 0.8 L 02/10/25 05:24 02/10/25 05:24 Orders (Tests/Meds): ED MEDICATIONS Discontinued Medications Generic Name Dose Route Start Last Admin Trade Name Freq PRN Reason Stop Dose Admin Acetaminophen 1,000 mg 02/10/25 05:20 02/10/25 05:28 Acetaminophen 500mg Tab PO 02/10/25 05:21 1,000 mg ONCE ONE Administration Ketorolac Tromethamine 15 mg 02/10/25 05:21 02/10/25 05:28 Ketorolac 30mg/Ml Vial IV 02/10/25 05:22 15 mg ONCE ONE Administration Lidocaine 1 each 02/10/25 07:56 02/10/25 08:00 Lidocaine 5% Transdermal Patch TD 02/10/25 07:57 1 each ONCE ONE Administration Morphine Sulfate 4 mg 02/10/25 05:20 02/10/25 05:28 Morphine 4mg/Ml Syringe IV 02/10/25 05:21 4 mg ONCE ONE Administration Morphine Sulfate 4 mg 02/10/25 06:13 02/10/25 06:19 Morphine 4mg/Ml Syringe IV 02/10/25 06:14 4 mg ONCE ONE Administration ORDERS Category Date Time Status CT abdomen pelvis wo con Stat Cat Scan 02/10/25 05:[address] cervical spine wo con Stat Cat Scan 02/10/25 05:[address] chest wo con Stat Cat Scan 02/10/25 05:[address] head/brain wo con Stat Cat Scan 02/10/25 05:[address] lumbar spine wo con Stat Cat Scan 02/10/25 05:[address] thoracic spine wo con Stat Cat Scan 02/10/25 05:17 Completed CBC w/Auto Diff [Complete Blood Count Auto Diff] Stat Lab 02/10/25 05:24 Completed CMP [Comprehensive Metabolic Panel] Stat Lab 02/10/25 05:24 Completed INR [Prothrombin Time INR] Stat Lab 02/10/25 05:24 Completed Medical Decision Narrative: 69-year-old male with extensive past medical history as discussed above, presents after a fall from standing while getting up to go to the bathroom. Reports primarily pain in his left back. He has had multiple spinal and rib fractures there in the recent past. History was obtained via interactive discussion with patient, family, chart review. On arrival, patient is [afebrile, hemodynamically stable, satting appropriately on home oxygen, alert, oriented x4, GCS 15], moving all extremities spontaneously. Full physical exam performed and significant for tenderness to the left side of the back, tenderness to the left shoulder Differential includes but is not limited to intracranial trauma intrathoracic trauma intra-abdominal trauma spine trauma extremity trauma. Patient was given morphine, Tylenol, Toradol for symptomatic management and correction of underlying abnormalities. Workup initiated including Noncon scans of the head neck spines chest abdomen pelvis, basic lab. On re-evaluation, patient continues to be in pain, given additional morphine. Laboratory workup independently interpreted by me and significant for mild leukocytosis, no significant electrolyte derangement.. Imaging independently interpreted by me and significant for no acute fracture in the cervical spine, no obvious intracranial bleeding, multiple old healed fractures of the ribs on the left in the area of patient's pain. Further CTs remain to be read.. See radiology read for full review of final results. At this time care handed off to oncoming physician. <Kye Smith MD - Last Filed: 02/10/25 09:32> Vital Signs: 02/10/25 05:16 02/10/25 06:11 02/10/25 07:19 Temperature 98.2 F Temperature Source Oral Pulse Rate 87 85 Pulse Rate [Left] 86 Respiratory Rate 22 20 Blood Pressure 132/106 H 97/53 L Blood Pressure [Right Arm] 107/88 L Blood Pressure Mean 59 Blood Pressure Mean [Right Arm] 94 Blood Pressure Source Blood Pressure Source [Right Arm] Automatic Cuff Blood Pressure Position Blood Pressure Position [Right Arm] Sitting 02 Sat by Pulse Oximetry 95 97 95 Oxygen Delivery Method Nasal Cannula Nasal Cannula Oxygen Flow Rate (LPM) 2 2 02/10/25 07:30 02/10/25 08:06 Temperature 98.4 F Temperature Source Oral Pulse Rate 64 64 Pulse Rate [Left] Respiratory Rate 18 15 Blood Pressure 86/52 L 86/58 L Blood Pressure [Right Arm] Blood Pressure Mean 65 Blood Pressure Mean [Right Arm] Blood Pressure Source Automatic Cuff Blood Pressure Source [Right Arm] Blood Pressure Position Sitting Blood Pressure Position [Right Arm] 02 Sat by Pulse Oximetry 96 Oxygen Delivery Method Nasal Cannula Room Air Oxygen Flow Rate (LPM) 2 Lab Data Lab Results 02/10/25 05:24: WBC 12.5 H, RBC 4.42 L, Hgb 13.1 L, Hct 40.7 L, MCV 92.1, MCH 29.6, MCHC 32.2, RDW 13.5, Plt Count 269, MPV 9.3, Neut % (Auto) 84.3 H, Lymph % (Auto) 7.1 L, [place] % (Auto) 6.0, Eos % (Auto) 1.6, Baso % (Auto) 0.5, Neut # (Auto) 10.6 H, Lymph # (Auto) 0.9, [place] # (Auto) 0.8, Eos # (Auto) 0.2, Baso # (Auto) 0.1, PT 11.7, INR 1.06, Sodium 133 L, Potassium 3.7, Chloride 86 L, Carbon Dioxide 42 H*, Anion Gap 8.7, BUN 16, Creatinine 1.00, Estimated Creat Clear 119, Estimated GFR 74, Est GFR ( Amer) 89, Glucose 344 H, Calcium 8.7, Total Bilirubin 0.6, AST 31, ALT 22, Alkaline Phosphatase 341 H, Total Protein 8.1 D, Albumin 3.6, Globulin 4.5 H, Albumin/Globulin Ratio 0.8 L Orders (Tests/Meds): ED MEDICATIONS Discontinued Medications Generic Name Dose Route Start Last Admin Trade Name Freq PRN Reason Stop Dose Admin Acetaminophen 1,000 mg 02/10/25 05:20 02/10/25 05:28 Acetaminophen 500mg Tab PO 02/10/25 05:21 1,000 mg ONCE ONE Administration Ketorolac Tromethamine 15 mg 02/10/25 05:21 02/10/25 05:28 Ketorolac 30mg/Ml Vial IV 02/10/25 05:22 15 mg ONCE ONE Administration Lidocaine 1 each 02/10/25 07:56 02/10/25 08:00 Lidocaine 5% Transdermal Patch TD 02/10/25 07:57 1 each ONCE ONE Administration Morphine Sulfate 4 mg 02/10/25 05:20 02/10/25 05:28 Morphine 4mg/Ml Syringe IV 02/10/25 05:21 4 mg ONCE ONE Administration Morphine Sulfate 4 mg 02/10/25 06:13 02/10/25 06:19 Morphine 4mg/Ml Syringe IV 02/10/25 06:14 4 mg ONCE ONE Administration ORDERS Category Date Time Status CT abdomen pelvis wo con Stat Cat Scan 02/10/25 05:[address] cervical spine wo con Stat Cat Scan 02/10/25 05:[address] chest wo con Stat Cat Scan 02/10/25 05:[address] head/brain wo con Stat Cat Scan 02/10/25 05:[address] lumbar spine wo con Stat Cat Scan 02/10/25 05:[address] thoracic spine wo con Stat Cat Scan 02/10/25 05:17 Completed CBC w/Auto Diff [Complete Blood Count Auto Diff] Stat Lab 02/10/25 05:24 Completed CMP [Comprehensive Metabolic Panel] Stat Lab 02/10/25 05:24 Completed INR [Prothrombin Time INR] Stat Lab 02/10/25 05:24 Completed Medical Decision Narrative: 69-year-old male with extensive past medical history as discussed above, presents after a fall from standing while getting up to go to the bathroom. Reports primarily pain in his left back. He has had multiple spinal and rib fractures there in the recent past. History was obtained via interactive discussion with patient, family, chart review. On arrival, patient is [afebrile, hemodynamically stable, satting appropriately on home oxygen, alert, oriented x4, GCS 15], moving all extremities spontaneously. Full physical exam performed and significant for tenderness to the left side of the back, tenderness to the left shoulder Differential includes but is not limited to intracranial trauma intrathoracic trauma intra-abdominal trauma spine trauma extremity trauma. Patient was given morphine, Tylenol, Toradol for symptomatic management and correction of underlying abnormalities. Workup initiated including Noncon scans of the head neck spines chest abdomen pelvis, basic lab. On re-evaluation, patient continues to be in pain, given additional morphine. Laboratory workup independently interpreted by me and significant for mild leukocytosis, no significant electrolyte derangement.. Imaging independently interpreted by me and significant for no acute fracture in the cervical spine, no obvious intracranial bleeding, multiple old healed fractures of the ribs on the left in the area of patient's pain. Further CTs remain to be read.. See radiology read for full review of final results. At this time care handed off to oncoming physician. Kye Smith MD MARIUSZ: I assumed care of this patient from the previous emergency medicine physician. CT imaging resulted and reveals no acute osseous pathology. Upon repeat evaluation, patient has slight improvement in his pain. He has experienced hypotension since arrival, likely attributable to administration of opioid analgesia. After shared decision making involving family, including a recommendation to remain in the ED be until hypotension is resolved, the decision was made to discharge the patient at this time. He lives with and other family members who are able to take care of him at home. Return precautions given. Procedures <Jhonathan Ivory MD - Last Filed: 02/10/25 07:01> Risk/Benefits of Procedure(s) Were Explained: Yes Critical Care <Jhonathan Ivory MD - Last Filed: 02/10/25 07:01> Critical Care Time Critical Care Time: No
--- OUTSIDE RECORDS SUMMARY | 2025-02-10 05:21 | XMS_ITS | Encounter Summary ---
Author Organization Healthcare Address [address] [place] [address] Care Team Providers Care Can Intake Worker Name Role Phone Zakiya Mcclure MD Primary Care Provider + [phone] Vannesa Hernandez LCSW Unavailable Unavailable Encounter Details Date Type Department Care Team (Late st Contact Info) Description 06/11/2020 Orders Only External Location [address] [place] [address] Provider, External Social History Tobacco Use Types Packs/Day Years Used Date Smoking Tobacco: Never Assessed Sex and Gender Information Value Date Recorded Sex Assigned at Male 09/17/2023 12:13 AM EST Legal Sex Male 7:58 PM EDT Gender Identity Male 09/17/2023 12:13 AM EST Sexual Orientation Straight 09/17/2023 12 :13 AM EST documented as of this encounter Plan of Treatment Not on file documented as of this encounter Procedures Procedure Name Priority Date/Time Associated Diagnosis Comments XR OUTSIDE IMAGES 06/11/2020 12:39 PM EDT documented in this encounter Results * XR OUTSIDE IMAGES (06/11/2020 12:39 PM EDT) Anatomical Region Laterality Modality Radiographic Nora ging 06/11/2020 12:3 9 PM EDT us External Provider IMG XR PROCEDURES Final Result documented in this encounter Visit Diagnoses Not on filedocumented in this encounter Additional Health Concerns Infection Onset Date Last Indicated Resolved Time MRSA Comment:MRSA (methicillin resistant Staphylococcus aureus) 06/21/2020 01/25/2021 documented as of this encounter Care Teams Can Intake Worker Relationship Specialty Start Date End Date Zakiya Mcclure MD [address] [place] [address] PCP - General 09/16/23 Vannesa Hernandez, [place] [phone] Yoga Coordinator Superintendent Circus 06/11/20 06/11/20 documented as of this encounter
--- OUTSIDE RECORDS SUMMARY | 2025-02-10 05:21 | XMS_ITS | Encounter Summary ---
Author Organization Healthcare Address [address] [place] [address] Care Team Providers Care Salesperson Burial Needs Name Role Phone Zakiya Mcclure MD Primary Care Provider + [phone] Vannesa Hernandez LCSW Unavailable Unavailable Encounter Details Date Type Department Care Team (Late st Contact Info) Description 06/11/2020 Orders Only External Location [address] [place] [address] Provider, External Social History Tobacco Use Types [...] Procedure Name Priority Date/Time Associated Diagnosis Comments CT OUTSIDE IMAGES 06/11/2020 1:23 PM EDT documented in this encounter Results * CT OUTSIDE IMAGES (06/11/2020 1:23 PM EDT) Anatomical Region Laterality Modality Computed Tomogra phy 06/11/2020 1:23 PM EDT us External Provider IMG CT PROCEDURES Final Result documented in this encounter Visit Diagnoses Not on filedocumented in this encounter Additional Health Concerns Infection Onset Date Last Indicated Resolved Time MRSA Comment:MRSA (methicillin resistant Staphylococcus aureus) 06/21/2020 01/25/2021 documented as of this encounter Care Teams Salesperson Burial Needs Relationship Specialty Start Date End Date Zakiya Mcclure MD [address] [place] [phone] PCP - General 09/16/23 Vannesa Hernandez, [place] [phone] Time Signal Wirer Chemical Dependency Therapist 06/11/20 06/11/20 documented as of this encounter
--- OUTSIDE RECORDS SUMMARY | 2025-02-10 05:21 | XMS_ITS | Encounter Summary ---
Author Organization Healthcare Address [address] [place] [address] Care Team Providers Care Fleet Maintenance Foreman Name Role Phone Zakiya Mcclure MD Primary Care Provider + [phone] Vannesa Hernandez LCSW Unavailable Unavailable Encounter Details Date Type Department Care Team (Late st Contact Info) Description 06/11/2020 Orders Only External Location [address] [place] [address] Provider, External Social History Tobacco Use Types [...] Associated Diagnosis Comments CT OUTSIDE IMAGES 06/11/2020 12:27 PM EDT documented in this encounter Results * CT OUTSIDE IMAGES (06/11/2020 12:27 PM EDT) Anatomical Region Laterality Modality Computed Tomogra phy 06/11/2020 12:2 7 PM EDT us External Provider IMG CT PROCEDURES Final Result documented in this encounter Visit Diagnoses Not on filedocumented in this encounter Additional Health Concerns Infection Onset Date Last Indicated Resolved Time MRSA Comment:MRSA (methicillin resistant Staphylococcus aureus) 06/21/2020 01/25/2021 documented as of this encounter Care Teams Fleet Maintenance Foreman Relationship Specialty Start Date End Date Zakiya Mcclure MD [address] [place] [id number] PCP - General 09/16/23 Vannesa Hernandez, [place] [phone] Supervisor Blood Donor Recruiters Link Wire Fabric Machine Operator 06/11/20 06/11/20 documented as of this encounter
--- OUTSIDE RECORDS SUMMARY | 2025-02-10 05:21 | XMS_ITS | Clinical Summary ---
Author Organization Healthcare Address [address] [place] [address] Care Team Providers Care Hot Stamp Operator Name Role Phone Zakiya Mcclure MD Primary Care Provider + [phone] Allergies Active Allergy Reactions Criticality Noted Date Comments Aspirin Other - please docum ent in the comment field Low 09/25/2023 Takes aspirin at home, safe to restart Hydromorphone Other - please docum ent in the comment field Low 09/17/2023 Pt. States it makes him stop breathing. Lisinopril Cough Low 09/20/2023 Metformin Diarrhea Low 09/17/2023 Statins Other - please docum ent in the comment field Low 09/20/2023 Unsure of rx Medications albuterol 108 (90 Base) MCG/ACT inhaler Inhale 2 puffs 4 (four) times a day if needed for wheezing. Active losartan (Cozaar) 50 MG tablet Take 1 tablet (50 mg) by mouth 1 (one) time each day. Active tiotropium-oloda terol (Stiolto Respimat) 2.5-2.5 MCG/ACT aerosol solution inhaler Inhale 2 Inhalations 1 (one) time each day. Active venlafaxine 150 MG 24 hr tablet Take 1 tablet (150 mg) by mouth 1 (one) time each day with breakfast. Do not crush, chew, or split. Active gabapentin (Neurontin) 300 MG capsule Take 3 capsules (900mg) with breakfast, 3 caps (900mg) @ 3PM and 4 caps (1200mg) at bedtime Active alogliptin (Nesina) 25 MG tablet Take 1 tablet (25 mg) by mouth 1 (one) time each day. Active Empagliflozin (JARDIANCE PO) Take 12.5 mg by mouth 1 (one) time each day. Active ferrous sulfate 324 (65 Fe) MG EC tablet Take 1 tablet (324 mg) by mouth 1 (one) time each day with breakfast. Do not crush, chew, or split. Active Bictegravir-Emtr icitab-Tenofov (Biktarvy) 50-200-25 MG tablet tablet Take 1 tablet by mouth 1 (one) time each day. Active ascorbic acid (Vitamin C) 500 MG tablet Take 1 tablet (500 mg) by mouth 1 (one) time each day. Active tamsulosin (Flomax) 0.4 MG 24 hr capsule Take 1 capsule (0.4 mg) by mouth 1 (one) time each day with dinner. Active finasteride (Proscar) 5 MG tablet Take 1 tablet (5 mg) by mouth 1 (one) time each day. Do not crush, chew, or split. Active pantoprazole (Protonix) 40 MG EC tablet Take 1 tablet (40 mg) by mouth 2 (two) times a day. Do not crush, chew, or split. Active cholecalciferol (Vitamin D-3) 25 MCG (1000 UT) tablet Take 1 tablet (1,000 Units) by mouth 1 (one) time each day. Active traMADol (Ultram) 50 MG tablet Take 1 tablet (50 mg) by mouth every 6 (six) hours if needed for severe pain. Active lidocaine (Lidoderm) 5 % patch Apply 2 patches topically 1 (one) time each day. Remove & discard patch within 12 hours or as directed by MD. Places both on back in different locations Active bumetanide (Bumex) 2 MG tablet Take 1 tablet (2 mg) by mouth 1 (one) time each day. May also take an extra if gains >3 pounds in one day or 5 pounds in one week Active insulin regular (HumuLIN R U-500) 500 UNIT/ML CONCENTRATED injection pen Inject 30 Units under the skin 2 (two) times a day. 6 mL 3 4 Active acetaminophen (Tylenol) 500 MG tablet Take 2 tablets (1,000 mg) by mouth every 6 (six) hours. 100 tablet 4 Active methocarbamol (Robaxin) 500 MG tablet Take 2 tablets (1,000 mg) by mouth 4 (four) times a day. 80 tablet 4 Active metoprolol tartrate (Lopressor) 100 MG tablet Take 1 tablet (100 mg) by mouth 2 (two) times a day. 60 tablet 4 Active senna-docusate (Jenna-Colace) 8.6-50 MG tablet Take 1 tablet by mouth 2 (two) times a day. 30 tablet 4 Active polyethylene glycol (Miralax) 17 g packet Take 17 g by mouth 2 (two) times a day. 30 packet 4 Active naloxone (Kloxxado) 8 mg/0.1 mL nasal spray 1. Give 1 spray in nostril for no/slow breathing or cannot wake after opioid use 2. Call 911 3. Repeat in other nostril if symptoms continue 1 each 4 Active Active Problems Problem Noted Date Diagnosed Date Acute respiratory failure with hypoxia and hyper carbia 09/21/2023 Overview (09/24/2023): ABG with CO2 84, pO2 80 Placed on Bipap Monitor End Tidal CO2 monitoring while awake and on NC, documen Q4 hrs. Baseline= 61 CO2 normal, stopped End Tidal monitoring Continue CPAP at night AMS (altered mental status) 09/21/2023 Overview (09/23/2023): Likely delirium Frequent re-orientation Improving now CO 2 better Pneumoperitoneum 09/20/2023 Overview (09/25/2023): Gastric Pneumatosis noted on imaging 09/19 09/19: NG placed 09/20: Patient pulled out NG, remain NPO postop to assess for continued vomiting 09/21: Advance diet to clears 09/22: Advanced to FLD 09/23: Regular CC2 diet, tolerating Thoracic spine fracture 09/17/2023 Overview (09/23/2023): unstable T9 fishmouth fracture Consult NSGY - unstable fracture which requires plan for surgical intervention - strict thoracolumbar precautions with head of bed 30-45 degrees. Do not lie flat -TLSO brace: must wear when out of bed -09/20: T8-T11 MIS fusion with NSGY COPD (chronic obstructive pulmonary disease) Overview (09/17/2023): Home O2@2L/NC Resume home medications once verified Pulmonary hygiene, IS, PEP, Nebs Hx of histoplasmosis 09/17/2023 Hypertension 09/17/2023 Overview (09/24/2023): BP soft en route with report of recent BP medication titration by PCP. Restart appropriate home medications once verified. Holding home losartan 2/2 normotension/hypotension while inpatient Type 2 diabetes mellitus 09/17/2023 Overview (09/24/2023): Hgb A1c pending Endocrinology following - FSBG per protocol - Currently 12 units glargine as basal dose and 4 units lispro with meals -Removed patient dexcom for MRI 09/19 CHF (congestive heart failure) 09/17/2023 Overview (09/19/2023): On bumex at home, resume once appropriate Echo: LVEF is visually estimated at 55 - 60% , RV dilation 09/19: Resumed Home Bumex 2mg Daily Fall 09/17/2023 Overview (09/17/2023): Admit to T Tertiary 09/17 CAD (coronary artery disease) 09/17/2023 Overview (09/17/2023): Coronary artery atherosclerosis Takes ASA daily (hold for now) Pleural effusion, bilateral 09/17/2023 Overview (09/23/2023): small pleural effusion bilaterally Monitor with CXR as needed Pulmonary hygiene 09/19: Resume home Bumex 2 mg Improved Pulmonary Edema- continue Night time Cpap and daily Bumex Right bundle branch block 09/17/2023 Overview (09/17/2023): ECG on admission with NSR w/ Right BBB History of thoracic spinal fusion 09/17/2023 Overview (09/17/2023): T5-8 fusion HIV (human immunodeficiency virus infection) Overview (09/20/2023): Resume antivirals Obesity (BMI 30-39.9) 09/17/2023 Overview (09/17/2023): BMI 36.9 Abnormal computed tomography of gallbladder 09/03 Overview (09/17/2023): hyperdensity in the gallbladder possibly sludge or calculi Follow up outpatient Abnormal CT of spine 09/17/2023 Overview (09/17/2023): Mild chronic wedging of T7. Mild heterogeneous from like sclerosis in the T11 vertebral body. Hypertrophic and degenerative changes noted in the cervical spine. Multilevel facet arthropathy w/foraminal stenosis. Syncopal episodes 09/17/2023 Overview (09/24/2023): Troponins elevated w/o significant delta - Syncopal workup: ECHO w/ 55-60% EF; carotid duplex <50% stenosis in bilateral carotids no clinical significance Orthostatic Negative Clinically Monitor for hypoglycemia (hx)- negative since admission Chronic hypoxic respiratory failure, on home oxy gen therapy 09/17/2023 Overview (09/17/2023): See COPD Diabetic ulcer of left lower leg associated with type 2 diabetes mellitus 09/17/2023 Overview (09/17/2023): Wound care consulted History of lower GI bleeding 09/17/2023 Overview (09/17/2023): On PPI Acute pain of left knee 09/17/2023 Overview (09/17/2023): Acute on chronic Left knee XR on OSH imaging negative for acute fracture or dislocation. Tricompartmenal joint space narrowing. Hx of feeling like his knee gives out . Repeated 09/17 for continued pain: XR demonstrates moderate osteoarthritis. No acute displaced fracture or dislocations. Small joint effusion. Cold compresses for comfort as needed. Lumbar stenosis 09/17/2023 Overview (09/23/2023): L3-L4 moderate canal stenosis. No interventions at this time Disorder of both mastoids 09/17/2023 Overview (09/17/2023): Bilateral mastoid effusions unchanged from previous imaging Resolved Problems Problem Noted Date Diagnosed Date Resolved Date Trauma 09/17/2023 09/17/2023 FRANNIE (acute kidney injury) 09/17/2023 Overview (09/19/2023): Scr 1.80 at OSH; Scr 1.89 on admission 1L saline bolus at OSH mIVF's, dc'd 09/17; encouraged oral hydration Worsening Cr with hyperK, consider nephrology consult Resolved Renal insufficiency 09/17/2023 09/17/19 24 Encounters Date Type Department Care Team Description 12/25/2024 Patient Outreach [facility] Medicine Specialties [address] [place] [address] Dai Argueta from Last 3 Months Family History Medical History Relation Name Comments Hypertension Maternal Grandmother Cardiac disorder Paternal Grandfather Hypertension Paternal Grandfather Cardiac disorder Paternal Grandmother Diabetes Paternal Grandmother Hypertension Paternal Grandmother Relation Name Status Comments Maternal Grandmother Paternal Grandfather Paternal Grandmother Social History Tobacco Use Types Packs/Day Years Used Date Smoking Tobacco: Never Tobacco Cessation:Counseling Given: Not Answered Alcohol Use Standard Drinks/Week Comments Never 0 (1 standard drink = 0.6 oz pur e alcohol) Humiliation, Afraid, Rape, and Kick questionnair e Answer Date Recorded Within the last year, have y ou been afraid of your partner or ex-partner? No 09/18/2023 Emotionally Abused Not on file 09/18/2023 Physically Abused Not on file 09/18/2023 Sexually Abused Not on file 09/18/2023 Hunger Vital Sign Answer Date Recorded Within the past 12 months, y ou worried that your food would run out before you got the money to buy more. Never true 09/18/19 24 Within the past 12 months, t he food you bought just didn't last and you didn't have money to get more. Never true 09/18/2023 PRAPARE - Transportation Answer Date Re corded In the past 12 months, has l ack of transportation kept you from medical appointments or from getting medications? No 09/03 In the past 12 months, has l ack of transportation kept you from meetings, work, or from getting things needed for daily living? No 09/18/2023 Housing Stability Vital Sign Answer Ancelmo e Recorded In the last 12 months, was t here a time when you were not able to pay the mortgage or rent on time? No 09/18/2023 In the last 12 months, how many places have you lived? 1 09/18/2023 In the last 12 months, was t here a time when you did not have a steady place to sleep or slept in a mcfp (including now)? No 09/18/2023 CAGE ASSESSMENT Answer Date Recorded Cage unable to access Not on file 09/17/2023 Cage max number of drinks Not on file 2023 Cage Beverages a week Not on file 09/17/2023 Have you ever felt you should CUT down on your d rinking? 0 09/17/2023 Have you been ANNOYED by people criticizing your drinking? 0 09/17/2023 Have you felt GUILTY about your drinking? 0 09/17/2023 Have you had a drink first t primo in the morning (EYE-CINDER CRANE OPERATOR) to steady your nerves or to get rid of a hangover? 0 09/17/2023 CAGE Questionnaire Score 0 024 Utilities Answer Date Recorded In the past 12 months has th e electric, gas, oil, or water company threatened to shut off services in your home? No 09/18/2023 Sex and Gender Information Value Date Recorded Sex Assigned at Male 09/17/2023 12:13 AM EST Legal Sex Male 7:58 PM EDT Gender Identity Male 09/17/2023 12:13 AM EST Sexual Orientation Straight 09/17/2023 12 :13 AM EST Last Filed Vital Signs Vital Sign Reading Time Taken Comments Blood Pressure 98/62 08/21/2024 8:43 AM EST Pulse 130 08/21/2024 8:43 AM EST AF RV R Temperature 36.9 C (98.4 F) 09/25/2023 1:00 PM EST Respiratory Rate 20 08/21/2024 8:43 AM EST Oxygen Saturation 98% 08/21/2024 8:43 AM EST 2LNC Inhaled Oxygen Concentration - - Weight 123 kg (272 lb) 09/17/2023 3:58 AM EST Height 182.9 cm (6') 09/17/2023 3:58 AM EST Body Mass Index 36.89 09/17/2023 3:58 AM EST Plan of Treatment Health Maintenance Due Date Last Done Comments [facility]-Bone Density Scan 1954 [facility]-Depression Screening 1954 [facility]-Medicare Annual Wellness (AWV) 1954 [facility]-/Child/Adol SDOH Screenings 1954 Diabetes: Dental Exam 1964 [facility]- SDOH Screenings 1972 [facility]-Adult SDOH Screenings 1972 [facility]-Hepatitis A Vaccines (1 of 2 - Risk 2-dose series) 1973 CT Colonography 1999 Colonoscopy 1999 FIT-DNA 1999 FIT 1999 FOBT 1999 Sigmoidoscopy 1999 [facility]-Colorectal Cancer Screening 1999 [facility]-RSV Vaccine: 60+ Years or (1 - Risk 60-74 years 1-dose series) 2014 [facility]-Zoster Vaccines (2 of 2) 05/22/2023 03/27/2023 [facility]-DTaP,Tdap,and Td Vaccines (2 - Td or Tdap) 10/14/2023 10/14/2013, 09/03/2002, 09/03/1997 [facility]-Diabetes: Hemoglobin A1C 12/18/2023 09/18/2023, 06/13/2020 [id number] Vaccine ( season) 2024 08/08/2022, 07/08/2021, 10/11/2020, Additional history exists [facility]-Influenza Vaccine (Season Ended) 2025 09/06/2023, 07/20/2023, 06/20/2022, Additional history exists [facility]-Hepatitis C Screening Completed 06/11/2020 [facility]-Pneumococcal Vaccine: 50+ Years Completed 12/27/2022, 04/02/2018, 10/14/2013, Additional history exists [facility]-Obesity Intervention Completed 09/16/2023 HPV Vaccines Aged Out No longer eligi ble based on patient's age to complete this topic [facility]-HIB Vaccines Aged Out No longer e ligible based on patient's age to complete this topic [facility]-IPV Vaccines Aged Out No longer e ligible based on patient's age to complete this topic [facility]-Rotavirus Vaccines Aged Out No lo nger eligible based on patient's age to complete this topic Medical Devices Implanted Type Area Beef Boner Device Identifier Shelf Expiration Date Model / Serial / Lot Plate Plate Left: Arm Plate Plate N/A: Other (See Comments) Description:Head Ring Ring Right: Eye López Viper2 Straight 120mm - S. - [id number] Implanted:Qty : 2 on 09/20/2023 by Los Mendoza MD at [facility] [id number] 09/20/2024 [id number] / . / Screw Screw N/A: Back Screw 6.0mm Viper Cfx Fen Xtab 50mm - S. - [id number] Implanted:Qty : 4 on 09/20/2023 by Los Mendoza MD at [facility] [id number] 09/20/2024 [id number] / . / Screw 6.0mm Viper Cfx Fen Xtab 45mm - S. - [id number] Implanted:Qty : 4 on 09/20/2023 by Los Mendoza MD at [facility] [employer]w [id number] 09/20/2024 [id number] / . / Single Inner Setscrew - S. - [id number] Implanted:Qty : 8 on 09/20/2023 by Los Mendoza MD at [facility] [employer]w [id number] 09/20/2024 [id number] / . / Procedures Procedure Name Priority Date/Time Associated Diagnosis Comments HEMOGLOBIN A1C Routine 09/18/2023 3:30 AM EST HEPATITIS C ANTIBODY - ED W/REFLEX TO HCV QUANT PCR Routine 06/11/2020 4:49 PM EDT from Last 3 Months or Most Recently Relevant to Health Maintenance Results * (ABNORMAL) Hemoglobin A1c (09/18/2023 3:30 AM EST) Hemoglobin A1c 7.9(H) <5.7 % 09/18/2023 4:39 AM EST [facility] Blood Venous blood specimen / Unknown Venipuncture / Unknown 09/18/2023 3:30 AM EST 09/18/2023 3:41 AM EST Narrative [facility] - 09/18/2023 4:39 AM EST HA1C Interpretive Data: Diagnosis of Diabetes: Diabetic > or = 6.5% Pre-diabetic 5.7 to 6.4% Non-diabetic < or = 5.6% Glycemic Targets for Type I and Type II Diabetics: Non- Adults <7.0% Adults <6.0% Children and Adolescents <7.5% Source: [place] [employer]. Standards of medical care in diabetes,2017. Diabetes Care.2017:40 (suppl 1):S1-S135. HbA1c assay performed by an ion-exchange chromatography method that is certified traceable to the DCCT. us Dianelys Monge APRN LAB BLOOD ORDERABLES Elda l Result Performing Organization Address City/[facility] Co de Phone Number [facility] [address] [place] [address] * [place] Hepatitis C Antibody (06/11/2020 4:49 PM EDT) [place] Hepatitis C Ab NEGATIVE Reference Range: Negative SUNQUEST 06/11/2020 4:49 PM EDT 06/11/2020 4:58 PM EDT Yasmany Butterfield MD LAB BLOOD ORDERABLES Final Result SUNQUEST from Last 3 Months or Most Recently Relevant to Health Maintenance Additional Health Concerns Infection Onset Date Last Indicated MRSA Comment:MRSA (methicillin resistant Staphylococcus aureus) 06/21/2020 01/25/2021 Insurance [facility] [employer] MEDICARE Advance Directives * Full Code (Latest Code Status on File) Date Activated Date Inactivated Comments 09/17/2023 1:42 AM 09/25/2023 5:18 PM Question Answer Comments Patient has decision-making capacity? Yes Care Teams Hot Stamp Operator Relationship Specialty Start Date End Date Zakiya Mcclure MD [address] [place] [address] PCP - General 09/16/23
--- OUTSIDE RECORDS SUMMARY | 2025-02-10 05:21 | XMS_ITS | Encounter Summary ---
Author Organization Healthcare Address [address] [place] [address] Care Team Providers Care Garment Examiner Name Role Phone Zakiya Mcclure MD Primary Care Provider + [phone] Vannesa Hernandez LCSW Unavailable Unavailable Encounter Details Date Type Department Care Team (Late st Contact Info) Description 06/11/2020 Orders Only External Location [address] [place] [address] Provider, External Social History Tobacco Use Types [...] Associated Diagnosis Comments CT OUTSIDE IMAGES 06/11/2020 12:22 PM EDT documented in this encounter Results * CT OUTSIDE IMAGES (06/11/2020 12:22 PM EDT) Anatomical Region Laterality Modality Computed Tomogra phy 06/11/2020 12:2 2 PM EDT us External Provider IMG CT PROCEDURES Final Result documented in this encounter Visit Diagnoses Not on filedocumented in this encounter Additional Health Concerns Infection Onset Date Last Indicated Resolved Time MRSA Comment:MRSA (methicillin resistant Staphylococcus aureus) 06/21/2020 01/25/2021 documented as of this encounter Care Teams Garment Examiner Relationship Specialty Start Date End Date Zakiya Mcclure MD [address] [place] [id number] PCP - General 09/16/23 Vannesa Hernandez, [place] [phone] Electronic Publishing Specialist Stitching Department Supervisor 06/11/20 06/11/20 documented as of this encounter
--- OUTSIDE RECORDS SUMMARY | 2025-02-10 05:21 | XMS_ITS | Encounter Summary ---
Author Organization Healthcare Address [address] [place] [address] Care Team Providers Care Radiographer Cardiac Catheterization Name Role Phone Zakiya Mcclure MD Primary Care Provider + [phone] Vannesa Hernandez LCSW Unavailable Unavailable Encounter Details Date Type Department Care Team (Late st Contact Info) Description 06/11/2020 Orders Only External Location [address] [place] [address] Provider, External Social History Tobacco Use Types [...] Associated Diagnosis Comments CT OUTSIDE IMAGES 06/11/2020 12:17 PM EDT documented in this encounter Results * CT OUTSIDE IMAGES (06/11/2020 12:17 PM EDT) Anatomical Region Laterality Modality Computed Tomogra phy 06/11/2020 12:1 7 PM EDT us External Provider IMG CT PROCEDURES Final Result documented in this encounter Visit Diagnoses Not on filedocumented in this encounter Additional Health Concerns Infection Onset Date Last Indicated Resolved Time MRSA Comment:MRSA (methicillin resistant Staphylococcus aureus) 06/21/2020 01/25/2021 documented as of this encounter Care Teams Radiographer Cardiac Catheterization Relationship Specialty Start Date End Date Zakiya Mcclure MD [address] [place] [id number] PCP - General 09/16/23 Vannesa Hernandez, [place] [phone] Vice President Global Digital Marketing Early Childhood Worker 06/11/20 06/11/20 documented as of this encounter
--- OUTSIDE RECORDS SUMMARY | 2025-02-10 05:21 | XMS_ITS | Encounter Summary ---
Author Organization Healthcare Address [address] [place] [address] Care Team Providers Care Orthotics Prosthetics Assistant Name Role Phone Zakiya Mcclure MD Primary Care Provider [phone] Encounter Details Date Type Department Care Team (Late st Contact Info) Description 12/25/2024 Patient Outreach [facility] Medicine Specialties [address] [place] [id number] Dai Argueta Social History Tobacco Use Types Packs/Day Years Used Date Smoking Tobacco: Never Alcohol Use Standard Drinks/Week Comments Never 0 [...] place to sleep or slept in a long-term (including now)? No 09/18/2023 CAGE ASSESSMENT Answer [...] drink first t primo in the morning (EYE-RUBBER MOLDER) to steady your nerves or to get [...] AM EST documented as of this encounter Functional Status * Are you deaf or do you have serious difficulty hearing? Answer Date of Assessment Author No 09/25/2023 1:22 PM EST Agustín Ely, RN * Are you blind or do you have serious difficulty seeing, even when wearing glasses? Answer Date of Assessment Author No 09/25/2023 1:22 PM EST Agustín Ely, RN * Do you have serious difficulty walking or climbing stairs? Answer Date of Assessment Author Yes 09/25/2023 1:22 PM EST Agustín Ely, RN * Do you have serious difficulty dressing or bathing? Answer Date of Assessment Author Yes 09/25/2023 1:22 PM Agustín Jimenez RN * Because of a physical, mental, or emotional condition, do you have serious difficulty doing errandsalone such as visiting the doctor? Answer Date of Assessment Author No 09/25/2023 1:22 PM Agustín Jimenez RN documented as of this encounter Mental Status * Because of a physical, mental, or emotional condition, do you have serious difficulty concentrating, remembering, or making decisions? (5 years old or older) Answer Entry Date Author No 09/25/2023 1:22 PM Agustín Jimenez RN documented in this encounter Plan of Treatment Not on file documented as of this encounter Visit Diagnoses Not on filedocumented in this encounter Additional Health Concerns Infection Onset Date Last Indicated Resolved Time MRSA Comment:MRSA (methicillin resistant Staphylococcus aureus) 06/21/2020 01/25/2021 Assessment Noted Time A Body Mass Index follow-up plan has been documented for the patient 09/25/2023 1:24 PM EST documented as of this encounter Care Teams Orthotics Prosthetics Assistant Relationship Specialty Start Date End Date Zakiya Mcclure MD [address] [place] [address] PCP - General 09/16/23 documented as of this encounter
[2025-02-10] MEDS: MORPHINE 4MG/ML SYRINGE 4 MG IV ×2 (05:28→06:19)
[2025-02-10] MEDS: ACETAMINOPHEN 500MG TAB 1000 MG PO (05:28)
[2025-02-10] MEDS: KETOROLAC 30MG/ML VIAL 15 MG IV (05:28)
[2025-02-10 05:41] LABS: Albumin Level 3.6 g/dl (3.5-5.0); Chloride 86 mmol/L (98-107); Sodium 133 mmol/L (136-145)
[2025-02-10 05:42] LABS: Potassium 3.7 mmoL/L (3.5-5.1)
[2025-02-10 05:44] LABS: Alanine Aminotransferase 22 U/L (12-78); Albumin/Globulin Ratio 0.8 (1.1-1.8); Alkaline Phosphatase 341 U/L (38-126); Aspartate Amino Transferase 31 U/L (17-59); Bilirubin,Total 0.6 mg/dl (0.2-1.3); Blood Urea Nitrogen 16 mg/dl (9-20); Calcium 8.7 mg/dl (8.4-10.2); Creatinine Clearance Estimated 119 mL/min (50-200); Estimated Glomerular Filt Rate 74 ml/min (>60); GFR (African American) 89 ML/MIN (>60); Globulin 4.5 g/dL (1.3-3.2); Glucose 344 mg/dl (74-100); Total Protein,Serum 8.1 g/dl (6.3-8.2)
[2025-02-10 05:46] LABS: INR 1.06 (0.9-1.1); Prothrombin Time 11.7 seconds (10.1-12.5)
[2025-02-10 05:47] LABS: Basophils # 0.1 K/mm3 (0-0.2); Basophils % 0.5 % (0.1-2.0); Eosinophils # 0.2 Kmm3 (0.0-0.4); Eosinophils % 1.6 % (0.1-12.0); Hematocrit 40.7 % (42.0-52.0); Hemoglobin 13.1 g/dL (14.1-18.0); Immature Granulocytes # 0.06 10^3uL; Immature Granulocytes % 0.5 %; Lymphocytes # 0.9 K/mm3 (0.7-4.5); Lymphocytes % 7.1 % (10-50); Mean Corpuscular HGB Conc 32.2 g/dL (31.8-35.4); Mean Corpuscular Hemoglobin 29.6 pg (27.0-31.2); Mean Corpuscular Volume 92.1 fl (80-94); Mean Platelet Volume 9.3 fl (7.4-10.4); Monocytes # 0.8 K/mm3 (0.1-1.0); Neutrophils # 10.6 K/mm3 (1.8-7.8); Neutrophils % 84.3 % (37.0-80.0); Nucleated Red Blood Cells # 0 10^3/uL; Nucleated Red Blood Cells % 0 %; Platelet Count 269 K/mm3 (142-424); Red Blood Count 4.42 M/mm3 (4.60-6.20); Red Cell Distribution Width 13.5 % (11.5-17.5); Red Cell Distribution Width-SD 45.8 fL; White Blood Count 12.5 K/mm3 (4.8-10.8)
[2025-02-10 05:52] LABS: Anion Gap 8.7 mEq/L (5-15); Carbon Dioxide 42 mmol/L (22.0-30.0)
--- NOTE | 2025-02-10 06:03 | PC.NURSE ---
patient was brought back to ED room 6 in a wheelchair upon arrival and refused to get into an ER bed. Patient stated that he was more comfortable in a wheel chair. patient was taken to CT scan in a wheelchair and was encouraged after scans to get in the bed and patient still refused and stated he was still more comfortable in the wheelchair.
[2025-02-10 06:11] VITALS: BP 132/106; PULSE 87; O2SAT 97
[2025-02-10 07:19] VITALS: BP 97/53; PULSE 85; RESP 20; O2SAT 95
[2025-02-10 07:30] VITALS: BP 86/52; PULSE 64; RESP 18; O2SAT 96
[2025-02-10] MEDS: LIDOCAINE 5% TRANSDERMAL PATCH 1 EACH TD (08:00)
[2025-02-10 08:06] VITALS: BP 86/58; PULSE 64; RESP 15; TEMP 36.9; O2SAT 96
--- OUTSIDE RECORDS SUMMARY | 2025-03-12 20:00 | XMS_ITS | Clinical Summary ---
Author Organization Unknown Care Team Providers Care Communications Tower Climber Name Role Phone [facility] Unavailable Unavailable MATTY PT, ESME Unavailable Unavailable [employer], SHANIQUE Unavailable Unavailable Payers Payer Name Policy Type Policy Number Effective Date Expira tion Date [facility].[email or web address] Problems Condition Name Condition Details Condition Category Status Onset Date Resolution Date Last Treatment Date Treating Clinician Comments ENCEPHALOPAT HY, UNSPECIFIED Active 11-01 00:00: 00 ACUTE AND CHRONIC RESPIRATORY FAILURE WITH HYPERCAPNIA Active 09-05 00:00: 00 NONTRAUMATIC HEMATOMA OF SOFT TISSUE Active 2023-09 00:00: 00 TYPE 2 DIABETES MELLITUS WITH HYPERGLYCEMI A Active 09-03 00:00: 00 CHRONIC OBSTRUCTIVE PULMONARY DISEASE, UNSPECIFIED Active 09-03 00:00: 00 ATHSCL HEART DISEASE OF [place] CORONARY ARTERY W/O ANG PCTRS Active 09-03 00:00: 00 HYPERTENSIVE HEART DISEASE WITH HEART FAILURE Active 09-03 00:00: 00 CHRONIC DIASTOLIC (CONGESTIVE) HEART FAILURE Active 2023-09 00:00: 00 UNSPECIFIED ATRIAL FIBRILLATION Active 09-03 00:00: 00 MULTIPLE FX OF RIBS, LEFT SIDE, SUBS FOR FX W ROUTN HEAL Active 2023-09 00:00: 00 MUSCLE WEAKNESS (GENERALIZED ) Active 09-03 00:00: 00 BENIGN PROSTATIC HYPERPLASIA WITHOUT LOWER URINRY TRACT SYMP Active 09-03 00:00: 00 OBSTRUCTIVE SLEEP APNEA (ADULT) (PEDIATRIC) Active 09-03 00:00: 00 OBESITY, UNSPECIFIED Active 09-03 00:00: 00 BODY MASS INDEX [BMI] 33.0-33.9, ADULT Active 09-03 00:00: 00 PERSONAL HISTORY OF PNEUMONIA (RECURRENT) Active 2023-09 00:00: 00 HISTORY OF FALLING Active 09-03 00:00: 00 DEPENDENCE ON SUPPLEMENTAL OXYGEN Active 09-03 00:00: 00 LONG-TERM (CURRENT) USE OF ORAL HYPOGLYCEMIC DRUGS Active [...] 11-20 00:00: 00 06-23 23:59 :00 No [id number] PAIN 3 tablet 2 TIMES DAILY 3 tablet 2 TIMES DAILY (route: oral) Med Classific ation: Analgesic , Anti-infl ammatory or Antipyret ic alogliptin 25 mg tablet 11-20 00:00: 00 06-23 23:59 :00 No [id number] BLOOD SUGAR 1 tablet DAILY 1 tablet DAILY (route: oral) Med Classific ation: Endocrine Aspirin Childrens 81 mg chewable tablet 11-20 00:00: 00 06-23 23:59 :00 No [id number] HEART 1 tablet DAILY 1 tablet DAILY (route: oral) Med Classific ation: Hematolog ical Agents bumetanide 2 mg tablet 11-20 00:00: 00 06-23 23:59 :00 No [id number] EDEMA 1 tablet DAILY 1 tablet DAILY (route: oral) Med Classific ation: Cardiovas cular Therapy Agents cholecalcif trav (vitamin D3) 25 mcg (1,000 unit) tablet 11-20 00:00: 00 06-23 23:59 :00 No [id number] SUPPLEMENT 1 tablet DAILY 1 tablet DAILY (route: oral) Med Classific ation: Electroly te Balance-N utritiona l Products ferrous sulfate 324 mg (65 mg iron) tablet,chapito yed release 11-20 00:00: 00 06-23 23:59 :00 No [id number] SUPPLEMENT 1 tablet DAILY 1 tablet DAILY (route: oral) Med Classific ation: Electroly te Balance-N utritiona l Products finasteride 5 mg tablet 11-20 00:00: 00 06-23 23:59 :00 No [id number] PROSTATE 1 tablet DAILY 1 tablet DAILY (route: oral) Med Classific ation: Genitouri nary Therapy gabapentin 300 mg capsule 11-20 00:00: 00 06-23 23:59 :00 No [id number] NERVE DAMAGE Per instruc tions DIRECTED Per instructio ns DIRECTED (route: oral) Med Classific ation: Central Nervous System Agents glucose 4 gram chewable tablet 11-20 00:00: 00 06-23 23:59 :00 No [id number] LOW BLOOD SUGAR 4 tablet NEEDED 4 tablet NEEDED (route: oral) Med Classific ation: Endocrine Humulin R U-500 (Conc) Insulin Kwikpen 500 unit/mL (3 mL) subcutaneou s 11-19 00:00: 00 06-23 23:59 :00 No [id number] T2DM Per instruc tions DIRECTED Per instructio ns DIRECTED (route: subcutaneo us) Med Classific ation: Endocrine Jardiance 25 mg tablet 11-20 00:00: 00 06-23 23:59 :00 No [id number] T2DM 0.5 tablet DAILY 0.5 tablet DAILY (route: oral) Med Classific ation: Endocrine methocarbam ol 750 mg tablet 11-20 00:00: 00 06-23 23:59 :00 No [id number] MUSCLE SPASMS 1 tablet EVERY 6 HOURS 1 tablet EVERY 6 HOURS (route: oral) Med Classific ation: Locomotor System metoprolol tartrate 100 mg tablet 11-20 00:00: 00 06-23 23:59 :00 No [id number] BLOOD PRESSURE 1 tablet 2 TIMES DAILY 1 tablet 2 TIMES DAILY (route: oral) Med Classific ation: Cardiovas cular Therapy Agents pantoprazol e 40 mg tablet,chapito yed release 11-20 00:00: 00 06-23 23:59 :00 No [id number] STOMACH 1 tablet 2 TIMES DAILY 1 tablet 2 TIMES DAILY (route: oral) Med Classific ation: Gastroint estinal Therapy Agents tamsulosin 0.4 mg capsule 11-20 00:00: 00 06-23 23:59 :00 No [id number] PROSTATE 1 capsule BEDTIME 1 capsule BEDTIME (route: oral) Med Classific ation: Genitouri nary Therapy tramadol 50 mg tablet 11-20 00:00: 00 06-23 23:59 :00 No [id number] PAIN 1 tablet EVERY 6 HOURS 1 tablet EVERY 6 HOURS (route: oral) Med Classific ation: Analgesic , Anti-infl ammatory or Antipyret ic venlafaxine ER 150 mg tablet,exte nded release 24 hr 11-20 00:00: 00 06-23 23:59 :00 No [id number] PAIN 1 tablet DAILY 1 tablet DAILY (route: oral) Med Classific ation: Central Nervous System Agents etodolac 400 mg tablet 11-20 00:00: 00 06-23 23:59 :00 No [id number] PAIN/INFLAM MATION 1 tablet EVERY 6 HOURS 1 tablet EVERY 6 HOURS (route: oral) Med Classific ation: Analgesic , Anti-infl ammatory or Antipyret ic alogliptin 25 mg tablet 2023-09 00:00: 00 09-15 00:00 :00 No [id number] T2DM 1 tablet DAILY 1 tablet DAILY (route: oral) Med Classific ation: Endocrine ascorbic acid (vitamin C) 500 mg tablet 2023-09 00:00: 00 Yes [id number] SUPPLEMENT 1 tablet DAILY 1 tablet DAILY (route: oral) Med Classific ation: Electroly te Balance-N utritiona l Products Aspirin Childrens 81 mg chewable tablet 2023-09 00:00: 00 09-15 00:00 :00 No [id number] HEART 1 tablet DAILY 1 tablet DAILY (route: oral) Med Classific ation: Hematolog ical Agents Biktarvy 50 mg-200 mg-25 mg tablet 2023-09 00:00: 00 Yes [id number] IMMUNE 1 tablet DAILY 1 tablet DAILY (route: oral) Med Classific ation: Anti-Infe ctive Agents bumetanide 2 mg tablet 2023-09 00:00: 00 Yes [id number] EDEMA 1 tablet 2 TIMES DAILY 1 tablet 2 TIMES DAILY (route: oral) Med Classific ation: Cardiovas cular Therapy Agents ferrous sulfate 324 mg (65 mg iron) tablet,chapito yed release 2023-09 00:00: 00 Yes [id number] SUPPLEMENT 1 tablet DAILY 1 tablet DAILY (route: oral) Med Classific ation: Electroly te Balance-N utritiona l Products finasteride 5 mg tablet 2023-09 00:00: 00 Yes [id number] PROSTATE 1 tablet DAILY 1 tablet DAILY (route: oral) Med Classific ation: Genitouri nary Therapy gabapentin 300 mg capsule 2023-09 00:00: 00 Yes [id number] PAIN 2 capsule DAILY 2 capsule DAILY (route: oral) Med Classific ation: Central Nervous System Agents Humulin R U-500 (Conc) Insulin Kwikpen 500 unit/mL (3 mL) subcutaneou s 2023-09 00:00: 00 09-15 00:00 :00 No [id number] T2DM 65 unit 2 TIMES DAILY 65 unit 2 TIMES DAILY (route: subcutaneo us) Med Classific ation: Endocrine Jardiance 25 mg tablet 2023-09 00:00: 00 09-15 00:00 :00 No [id number] T2DM 0.5 tablet DAILY 0.5 tablet DAILY (route: oral) Med Classific ation: Endocrine methocarbam ol 750 mg tablet 2023-09 00:00: 00 Yes [id number] MUSCLE SPASMS 1 tablet 3 TIMES DAILY 1 tablet 3 TIMES DAILY (route: oral) Med Classific ation: Locomotor System metoprolol tartrate 100 mg tablet 2023-09 00:00: 00 Yes [id number] BLOOD PRESSURE 1 tablet 2 TIMES DAILY 1 tablet 2 TIMES DAILY (route: oral) Med Classific ation: Cardiovas cular Therapy Agents Protonix 40 mg tablet,chapito yed release 2023-09 00:00: 00 Yes [id number] GERD 1 tablet DAILY 1 tablet DAILY (route: oral) Med Classific ation: Gastroint estinal Therapy Agents Stiolto Respimat 2.5 mcg-2.5 mcg/actuati on solution for inhalation 2023-09 00:00: 00 Yes [id number] BREATHING 2 puff DAILY 2 puff DAILY (route: inhalation ) Med Classific ation: Respirato ry Therapy Agents tamsulosin 0.4 mg capsule 2023-09 00:00: 00 Yes [id number] PROSTATE 1 capsule DAILY 1 capsule DAILY (route: oral) Med Classific ation: Genitouri nary Therapy tramadol 50 mg tablet 2023-09 00:00: 00 Yes [id number] PAIN 1 tablet 3 TIMES DAILY 1 tablet 3 TIMES DAILY (route: oral) Med Classific ation: Analgesic , Anti-infl ammatory or Antipyret ic venlafaxine ER 150 mg tablet,exte nded release 24 hr 2023-09 00:00: 00 Yes [id number] MOOD 1 tablet DAILY 1 tablet DAILY (route: oral) Med Classific ation: Central Nervous System Agents Ventolin HFA 90 mcg/actuati on aerosol inhaler 2023-09 00:00: 00 09-15 00:00 :00 No [id number] BREATHING 2 puff EVERY 4 HOURS 2 puff EVERY 4 HOURS (route: inhalation ) Med Classific ation: Respirato ry Therapy Agents Vitamin D3 25 mcg (1,000 unit) tablet 2023-09 00:00: 00 Yes [id number] SUPPLEMENT 1 tablet DAILY 1 tablet DAILY (route: oral) Med Classific ation: Electroly te Balance-N utritiona l Products digoxin 125 mcg (0.125 mg) tablet 09-15 00:00: 00 Yes [id number] HEART 1 tablet DAILY 1 tablet DAILY (route: oral) Med Classific ation: Cardiovas cular Therapy Agents diltiazem 60 mg tablet 09-15 00:00: 00 Yes [id number] ANGINA 1 tablet EVERY 8 HOURS 1 tablet EVERY 8 HOURS (route: oral) Med Classific ation: Cardiovas cular Therapy Agents Jardiance 10 mg tablet 09-15 00:00: 00 Yes [id number] T2DM 1 tablet DAILY 1 tablet DAILY (route: oral) Med Classific ation: Endocrine sitagliptin 100 mg tablet 09-15 00:00: 00 Yes [id number] T2DM 1 tablet DAILY 1 tablet DAILY (route: oral) Med Classific ation: Endocrine Vital Signs Vital Name Observation Time Observation Value Commen ts Temperature 2025-01-29 13:37:00.000 97 [degF] Temperature 2025-01-13 15:37:00.000 97.6 [degF] Pulse 2025-01-29 13:37:00.000 70 /min Pulse 2025-01-13 15:37:00.000 72 /min O2 Saturation (%) 2025-01-29 13:37:00.000 95 % O2 Saturation (%) 2025-01-13 15:37:00.000 94 % Respirations 2025-01-29 13:37:00.000 18 /min Respirations 2025-01-13 15:37:00.000 18 /min Systolic Blood Pressure 2025-01-29 13:37:00.000 114 mm [Hg] Systolic Blood Pressure 2025-01-13 15:37:00.000 135 mm [Hg] Diastolic Blood Pressure 2025-01-29 13:37:00.000 63 mm [Hg] Diastolic Blood Pressure 2025-01-13 15:37:00.000 65 mm [Hg] Plan of Treatment Planned Activity Planned Date Details Comments Future Scheduled Test AGENCY MAY PERFORM A RESUMPTION OF CARE VISIT FOLLOWING ANY HOSPITAL ADMISSION. PT TO EVALUATE, OBSERVE / ASSESS, AND MONITOR, [employer] TO OBSERVE AND MONITOR, PROVIDE SKILLED THERAPEUTIC INTERVENTION, ACTIVITY, EDUCATION, AND TRAINING TO ADDRESS; [code = AGENCY MAY PERFORM A RESUMPTION OF CARE VISIT FOLLOWING ANY HOSPITAL ADMISSION. PT TO EVALUATE, OBSERVE / ASSESS, AND MONITOR, [employer] TO OBSERVE AND MONITOR, PROVIDE SKILLED THERAPEUTIC INTERVENTION, ACTIVITY, EDUCATION, AND TRAINING TO ADDRESS;] Future Scheduled Test THERAPEUTI C EXERCISES AND ESTABLISHING A HOME EXERCISE PROGRAM (PT/[employer]) [code = THERAPEUTIC EXERCISES AND ESTABLISHING A HOME EXERCISE PROGRAM (PT/[employer])] Future Scheduled Test NEUROMUSCU LAR RE-EDUCATION / BALANCE / POSTURAL CONTROL (PT) [code = NEUROMUSCULAR RE-EDUCATION / BALANCE / POSTURAL CONTROL (PT)] Future Scheduled Test PT/[employer] TO PROVIDE GAIT TRAINING FOR IMPROVED MOBILITY AND /OR TO NORMALIZE GAIT PATTERN [code = PT/[employer] TO PROVIDE GAIT TRAINING FOR IMPROVED MOBILITY AND /OR TO NORMALIZE GAIT PATTERN] Future Scheduled Test SIT TO/FRO M STAND TRANSFERS (PT/[employer]) [code = SIT TO/FROM STAND TRANSFERS (PT/[employer])] Goal 2024-11-12 Patient Goal - R ETURN TO INDEPENDENCE WITH FUNCTIONAL ACTIVITIES WITH AD, NOT FALL Goal 2025-01-08 Patient Goal - R ETURN TO INDEPENDENCE WITH FUNCTIONAL ACTIVITIES WITH AD, NOT FALL Goal Patient Goal - R ETURN TO [...] End Date/Time Encounter Type Admission Type Attending [facility] Care Department Encounter ID Discharge Date Discharge Status Discharge Condition Discharge Reason Percent Goals Met 2025-01-13 00:00:00 2025-03-13 00:00:00 Outpatient RECERTIFIC ESME [facility] [id number]
== END 2025-02-10 08:12 | disposition home or self-care (01) ==
PROVIDERS: Emergency Provider Emergency Medicine; PCP Internal Medicine
DX: M54.6 Pain in thoracic spine (principal); I95.2 Hypotension due to drugs; W19.XXXA Unspecified fall, initial encounter
CPT/HCPCS: 70450; 71250; 72125; 72128; 72131; 74176; 80053; 85025; 85610; 96374; 96375; 96376; 99285; J1885; J2270

== ENCOUNTER 2025-02-24 20:40 | Emergency (ER) | payer MEDICARE, SELFPAY ==
[2025-02-24 20:44] VITALS: BP 128/72; PULSE 82; RESP 18; TEMP 36.7; O2SAT 95; BMI 32.7
--- OUTSIDE RECORDS SUMMARY | 2025-02-24 20:46 | XMS_ITS | Encounter Summary ---
Author Organization Healthcare Address [address] [place] [address] Care Team Providers Care Log Inspector Name Role Phone Zakiya Mcclure MD Primary Care Provider + [phone] Vannesa Hernandez LCSW Unavailable Unavailable Encounter Details Date Type Department Care Team (Late st Contact Info) Description 06/11/2020 Orders Only External Location [address] [place] [address] Provider, External Social History Tobacco Use Types [...] documented as of this encounter Care Teams Log Inspector Relationship Specialty Start Date End Date Zakiya Mcclure MD [address] [place] [address] PCP - General 09/16/23 Vannesa Hernandez, [place] [phone] Conditioning Machine Operator Astrochemist 06/11/20 06/11/20 documented as of this encounter
--- OUTSIDE RECORDS SUMMARY | 2025-02-24 20:46 | XMS_ITS | Encounter Summary ---
Author Organization Healthcare Address [address] [place] [address] Care Team Providers Care Turbine Mechanic Name Role Phone Zakiya Mcclure MD Primary Care Provider + [phone] Vannesa Hernandez LCSW Unavailable Unavailable Encounter Details Date Type Department Care Team (Late st Contact Info) Description 06/11/2020 Orders Only External Location [address] [place] [address] Provider, External Social History Tobacco Use Types [...] documented as of this encounter Care Teams Turbine Mechanic Relationship Specialty Start Date End Date Zakiya Mcclure MD [address] [place] [id number] PCP - General 09/16/23 Vannesa Hernandez, [place] [phone] Hand Sizer Home Hospice Aide 06/11/20 06/11/20 documented as of this encounter
--- OUTSIDE RECORDS SUMMARY | 2025-02-24 20:46 | XMS_ITS | Clinical Summary ---
Author Organization Healthcare Address [address] [place] [address] Care Team Providers Care Rv Detailer Name Role Phone Zakiya Mcclure MD Primary Care Provider + [phone] Allergies Active Allergy Reactions Criticality Noted Date [...] Department Care Team Description 12/25/2024 Patient Outreach [facility] [address] [place] [address] Dai Argueta from Last 3 [...] place to sleep or slept in a care home (including now)? No 09/18/2023 CAGE ASSESSMENT Answer [...] drink first t primo in the morning (EYE-OPERATIONS RESEARCH ANALYST) to steady your nerves or to get [...] 09/03/1997 [facility]-Diabetes: Hemoglobin A1C 12/18/2023 09/18/2023, 06/13/2020 [id number] Vaccine ( season) 2024 08/08/2022, 07/08/2021, 10/11/2020, [...] this topic Medical Devices Implanted Type Area Engineer Sergeant Device Identifier Shelf Expiration Date Model / Serial / Lot Plate Plate Left: Arm Plate Plate N/A: Other (See Comments) Description:Head Ring Ring Right: Eye López Viper2 Straight 120mm - S. - [id number] Implanted:Qty : 2 on 09/20/2023 by Los Mendoza MD at [facility] [id number] 09/20/2024 [id number] / . / Screw Screw N/A: Back Screw 6.0mm Viper Cfx Fen Xtab 50mm - S. - [id number] Implanted:Qty : 4 on 09/20/2023 by Los Mendoza MD at [facility] [employer]w [id number] 09/20/2024 [id number] / . / Screw 6.0mm Viper Cfx Fen Xtab 45mm - S. - [id number] Implanted:Qty : 4 on 09/20/2023 by Los Mendoza MD at [facility] Screw [id number] 09/20/2024 [id number] / . / Single Inner Setscrew - S. - [id number] Implanted:Qty : 8 on 09/20/2023 by Los Mendoza MD at [facility] Screw [id number] 09/20/2024 [id number] / . / Procedures Procedure Name Priority [...] Adults <6.0% Children and Adolescents <7.5% Source: [place] [employer]. Standards of medical care in diabetes,2017. Diabetes Care.2017:40 (suppl 1):S1-S135. HbA1c assay performed by an ion-exchange chromatography method that is certified traceable to the DCCT. us Dianelys Monge APRN LAB BLOOD ORDERABLES Elda l Result Performing Organization Address City/[facility] Phone Number [facility] [address] [place] [address] * [place] Hepatitis C Antibody (06/11/2020 4:49 PM EDT) [place] Hepatitis C Ab NEGATIVE Reference Range: Negative SUNQUEST 06/11/2020 4:49 PM EDT 06/11/2020 4:58 PM EDT Yasmany Butterfield MD LAB BLOOD ORDERABLES Final Result SUNQUEST from Last 3 Months or Most Recently Relevant to Health Maintenance Additional Health Concerns Infection Onset Date Last Indicated MRSA Comment:MRSA (methicillin resistant Staphylococcus aureus) 06/21/2020 01/25/2021 Insurance [facility] [employer] MEDICARE Advance Directives * Full Code (Latest Code Status on File) Date Activated Date Inactivated Comments 09/17/2023 1:42 AM 09/25/2023 5:18 PM Question Answer Comments Patient has decision-making capacity? Yes Care Teams Rv Detailer Relationship Specialty Start Date End Date Zakiya Mcclure MD [address] [place] [address] PCP - General 09/16/23
--- OUTSIDE RECORDS SUMMARY | 2025-02-24 20:46 | XMS_ITS | Encounter Summary ---
Author Organization Healthcare Address [address] [place] [address] Care Team Providers Care Client Resource Specialist Name Role Phone Zakiya Mcclure MD Primary Care Provider + [phone] Vannesa Hernandez LCSW Unavailable Unavailable Encounter Details Date Type Department Care Team (Late st Contact Info) Description 06/11/2020 Orders Only External Location [address] [place] [address] Provider, External Social History Tobacco Use Types [...] documented as of this encounter Care Teams Client Resource Specialist Relationship Specialty Start Date End Date Zakiya Mcclure MD [address] [place] [phone] PCP - General 09/16/23 Vannesa Hernandez, [place] [phone] Retail General Manager Hot Dip Galvanizer 06/11/20 06/11/20 documented as of this encounter
--- OUTSIDE RECORDS SUMMARY | 2025-02-24 20:46 | XMS_ITS | Encounter Summary ---
Author Organization Healthcare Address [address] [place] [address] Care Team Providers Care Electrical Wirer Name Role Phone Zakiya Mcclure MD Primary Care Provider + [phone] Vannesa Hernandez LCSW Unavailable Unavailable Encounter Details Date Type Department Care Team (Late st Contact Info) Description 06/11/2020 Orders Only External Location [address] [place] [address] Provider, External Social History Tobacco Use Types [...] documented as of this encounter Care Teams Electrical Wirer Relationship Specialty Start Date End Date Zakiya Mcclure MD [address] [place] [phone] PCP - General 09/16/23 Vannesa Hernandez, [place] [phone] Guard Lieutenant Manager Background 06/11/20 06/11/20 documented as of this encounter
--- OUTSIDE RECORDS SUMMARY | 2025-02-24 20:46 | XMS_ITS | Encounter Summary ---
Author Organization Healthcare Address [address] [place] [address] Care Team Providers Care Bar Roller Name Role Phone Zakiya Mcclure MD Primary Care Provider + [phone] Vannesa Hernandez LCSW Unavailable Unavailable Encounter Details Date Type Department Care Team (Late st Contact Info) Description 06/11/2020 Orders Only External Location [address] [place] [address] Provider, External Social History Tobacco Use Types [...] documented as of this encounter Care Teams Bar Roller Relationship Specialty Start Date End Date Zakiya Mcclure MD [address] [place] [phone] PCP - General 09/16/23 Vannesa Hernandez, [place] [phone] Outside Sales Consultant Cable Installer 06/11/20 06/11/20 documented as of this encounter
--- NOTE | 2025-02-24 21:19 | HMH.EDGENADL ---
Discharge Plan Disposition Patient Disposition: Home, Self-Care Prescriptions Prescriptions: No Action cholecalciferol (vitamin D3) 25 mcg (1,000 unit) capsule 25 mcg PO DAILY digoxin 125 mcg (0.125 mg) tablet 125 mcg PO DAILY Qty: 90 3RF finasteride 5 MG tablet 5 mg PO DAILY tamsulosin 0.4 MG capsule 0.4 mg PO HS methocarbamol 750 MG tablet 750 mg PO Q6HP PRN (Reason: Muscle Spasm) tramadol 50 mg tablet 50 mg PO 0900,1700 Patient Comments: 50 MG orally every 6 hours as needed As Needed for Severe Pain (Scale Score 7-10) for 30 days Rx Instructions: TAKE 1 TABLET PO EVERY MORNING, TAKE 1 TABLET EVERY EVENING, TAKE 1.5 TABLETS AT BEDTIME FOR PAIN albuterol sulfate 90 mcg/actuation Hfa Aerosol Inhaler 1 inh INHALATION QIDP PRN (Reason: Shortness Of Breath) sitagliptin 100 mg Tablet 100 mg PO DAILY pantoprazole 40 MG tablet,delayed release (DR/EC) 40 mg PO DAILY 30 Days Qty: 0 0RF lidocaine 5 % Adhesive Patch,Medicated 2 patch TOPICAL DAILY Rx Instructions: leave on most painful area for up to 12 hrs Biktarvy 50-200-25 mg Tablet 1 tab PO DAILY aspirin 81 mg Capsule 81 mg PO DAILY Stiolto Respimat 2.5-2.5 mcg/actuation Mist 2 puff INHALATION DAILY metoprolol tartrate 100 mg Tablet 50 mg PO BID gabapentin 300 mg Capsule 900 mg PO 1700,2100 gabapentin 300 mg Capsule 600 mg PO DAILY tramadol 50 mg Tablet 100 mg PO HS bumetanide 2 mg Tablet 2 mg PO BIDL 30 Days Qty: 60 0RF Rx Instructions: ONE TABLET BY MOUTH DAILY, TAKE ADDITIONAL EVENING DOSE FOR WEIGHT GAIN OF 3 LB IN 24 HOURS OR 5 LB IN A WEEK. venlafaxine [Effexor XR] 150 mg Capsule,Extended Release 24hr 150 mg PO DAILY Activity Restrictions/Add. Instructions Additional Instructions/Restrictions: At this time it was felt you are safe to be discharged home. If new or worsening symptoms please do not hesitate to return the emergency department. Clinical Impressions Clinical Impression: Frequent falls, Neck pain Print Language Print Language: Panamanian Discharge ED Provider: Gaurav Marley General Adult HPI <RACHEL Holcomb - Last Filed: 02/24/25 22:16> General Chief complaint: Fall Stated complaint: Neck Pain Time Seen by Provider: 02/24/25 21:02 Mode of Arrival: EMS Source of Information: Patient Description of Symptoms (Recalled from ER Triage Doc. by RN): Pt to ED with c/o fall yesterday, having neck pain. EMS reports pt fell yesterday and refused to come to ED at that time. Pt reports he was not hurting at that time. Pt did hit his head. No LOC. No blood tinners. Hematoma noted to left forehead. History of Present Illness HPI narrative: Patient presents for evaluation of a fall and neck pain. Patient tripped and fell yesterday while attempting to go to the bathroom. He struck his head on the door frame on the way down and then hit the side of the tub. He did not lose consciousness. Patient has a long history of multiple falls. He required a lift assist but ultimately refused evaluation in the emergency department. However today patient has been complaining of more neck pain and was brought by his daughter for evaluation. She states that when she was getting him up to go to he complained of a sharp pop in his neck. He has no loss of motor or sensory no intractable headache no nausea no vomiting no change in mental status or level of consciousness. He complains of no chest pain abdominal pain shortness of breath fever chills hemoptysis hematochezia melena nausea vomiting diarrhea. Related Data Home Medications ?Medication ?Instructions ?Recorded ?Confirmed finasteride 5 mg tablet 5 mg PO DAILY 11/13/18 11/12/24 tamsulosin 0.4 mg capsule 0.4 mg PO HS 01/06/20 11/12/24 methocarbamol 750 mg tablet 750 mg PO Q6HP PRN Muscle Spasm 11/26/20 11/12/24 cholecalciferol (vitamin D3) 25 25 mcg PO DAILY 12/30/20 11/12/24 mcg (1,000 unit) capsule venlafaxine 150 mg 150 mg PO DAILY 09/16/23 11/12/24 capsule,extended release 24 hr (Effexor XR) tramadol 50 mg tablet 50 mg PO 0900,1700 08/19/24 11/12/24 albuterol sulfate 90 mcg/actuation 1 inh inhalation QIDP PRN 08/20/24 11/12/24 aerosol inhaler Shortness Of Breath sitagliptin 100 mg tablet 100 mg PO DAILY 08/20/24 11/12/24 aspirin 81 mg capsule 81 mg PO DAILY 11/04/24 11/12/24 bictegravir 50 mg-emtricitabine 1 tab PO DAILY 11/04/24 11/12/24 200 mg-tenofovir alafenam 25 mg tablet (Biktarvy) gabapentin 300 mg capsule 600 mg PO DAILY 11/04/24 11/12/24 gabapentin 300 mg capsule 900 mg PO 1700,2100 11/04/24 11/12/24 lidocaine 5 % topical patch 2 patch topical DAILY 11/04/24 11/12/24 metoprolol tartrate 100 mg tablet 50 mg PO BID 11/04/24 11/12/24 tiotropium 2.5 mcg-olodaterol 2.5 2 puff inhalation DAILY 11/04/24 11/12/24 mcg/actuation mist for inhalation (Stiolto Respimat) tramadol 50 mg tablet 100 mg PO HS 11/04/24 11/12/24 Previous Rx's ?Medication ?Instructions ?Recorded pantoprazole 40 mg tablet,delayed 40 mg PO DAILY 30 days #0 tabs 08/23/24 release digoxin 125 mcg (0.125 mg) tablet 125 mcg PO DAILY #90 tabs 09/16/24 bumetanide 2 mg tablet 2 mg PO BIDL 30 days #60 tabs 11/05/24 Allergies Allergy/AdvReac Type Severity Reaction Status Date / Time SANDRA Inhibitors Allergy Unknown Unknown Verified 11/12/24 09:01 allergy reaction clofibrate Allergy Unknown Unknown Verified 11/12/24 09:01 allergy reaction enalapril Allergy Unknown Unknown Verified 11/12/24 09:01 allergy reaction erythromycin base Allergy Unknown Unknown Verified 11/12/24 09:01 allergy reaction gemfibrozil Allergy Unknown Unknown Verified 11/12/24 09:01 allergy reaction hepatitis A virus vaccine Allergy Unknown Unknown Verified 11/12/24 09:01 allergy reaction hydralazine Allergy Unknown Unknown Verified 11/12/24 09:01 allergy reaction Macrolide Antibiotics Allergy Unknown Unknown Verified 11/12/24 09:01 allergy reaction pravastatin (From Pravachol) Allergy Unknown Unknown Verified 11/12/24 09:01 allergy reaction Ozbpfgr-FOF-SnO Reductase Allergy Unknown Unknown Verified 11/12/24 09:01 Inhibitor (Kteylgb-Qul-Ecz allergy Reductase Inhibitor) reaction PFS <RACHEL Holcomb - Last Filed: 02/24/25 22:16> [facility] Disclaimer: The information contained in this section may have been updated after the patient was seen, as this information can be updated by other users. Medical History Encounter for monitoring digoxin therapy Diabetic toe ulcer Left second toe. Atrial flutter Acute on chronic heart failure with preserved ejection fraction (HFpEF) HLD (hyperlipidemia) GERD (gastroesophageal reflux disease) CAD (coronary artery disease) CHF (congestive heart failure) Pneumonia Pleural effusion, bilateral Acute respiratory failure with hypoxia and hypercarbia Hypertension Chronic venous stasis dermatitis of both lower extremities HIV (human immunodeficiency virus infection) Diabetes mellitus, type 2 Closed fracture of neck of left humerus GI bleed due to NSAIDs Morbid obesity with BMI of 45.0-49.9, adult Family History Other No significant family history Social History Smoking Status: Unknown if ever smoked second hand exposure: No alcohol intake: never substance use type: denies use current occupational status: retired Travel in the last 8 weeks?: None household members: spouse and family housing: house current occupational exposures/hazards: No caffeine: Yes Have you lived/traveled outside US in past 30 days?: No Contact w/someone who lives/traveled outside US past 30 days?: No Exposure to someone with infectious disease in past 14 days?: No Do you have a fever (greater than 100.4 F or 38 C)?: No Have you tested positive for COVID-19?: No Exposed to someone with COVID-19 in past 14 days?: No Do you have a sore throat?: No Do you have a cough?: No Do you have any weakness?: No Do you have any diarrhea?: No Are you experiencing any unusual bleeding?: No Do you have any muscle aches/pain?: No Do you have any abdominal pain?: No Are you experiencing loss of taste or smell?: No Other Medical History Have you received the Flu Vaccine for this season: No Have you received the Pneumonia Vaccine: Yes <RACHEL Holcomb - Last Filed: 02/24/25 22:16> ROS Obtained: Yes Systems reviewed as appropriate & no additional complaints except as documented Physical Exam <RACHEL Holcomb - Last Filed: 02/24/25 22:16> General General appearance: alert and in no apparent distress Respiratory Respiratory exam: Present normal lung sounds bilaterally Cardiovascular Cardiovascular exam: Present regular rate Neurological Exam Neurological exam: Present alert and oriented X3 Medical Decision Making <RACHEL Holcomb - Last Filed: 02/24/25 22:16> Medical Records Medical records reviewed: Yes I reviewed the patient's medical records. Screening: Per USPSTF and CDC recommendations, given the prevalence of disease in our region, it is our hospital?s policy to screen for HIV and viral Hepatitis for all patients aged 18 and over and those with ongoing risk factors. Valentin Inquiry Pt receiving controlled substance: No Vital Signs: 02/24/25 20:44 02/24/25 21:30 02/24/25 22:01 Temperature 98.1 F Temperature Source Oral Pulse Rate 68 65 Pulse Rate [Right Radial] 82 Respiratory Rate 18 Blood Pressure 115/68 129/76 Blood Pressure [Right Arm] 128/72 Blood Pressure Mean [Right Arm] 90 Blood Pressure Source [Right Arm] Automatic Cuff Blood Pressure Position [Right Arm] Sitting 02 Sat by Pulse Oximetry 95 97 96 Oxygen Delivery Method Room Air Nasal Cannula Nasal Cannula Oxygen Flow Rate (LPM) 2 3 02/24/25 22:31 02/24/25 23:01 Temperature Temperature Source Pulse Rate 71 83 Pulse Rate [Right Radial] Respiratory Rate Blood Pressure 105/64 L 107/62 L Blood Pressure [Right Arm] Blood Pressure Mean [Right Arm] Blood Pressure Source [Right Arm] Blood Pressure Position [Right Arm] 02 Sat by Pulse Oximetry 95 97 Oxygen Delivery Method Nasal Cannula Oxygen Flow Rate (LPM) 3 3 Orders (Tests/Meds): ED MEDICATIONS Discontinued Medications Generic Name Dose Route Start Last Admin Trade Name Freq PRN Reason Stop Dose Admin Acetaminophen 1,000 mg 02/24/25 22:16 02/24/25 22:24 Acetaminophen 500mg Tab PO 02/24/25 22:17 1,000 mg ONCE ONE Administration Oxycodone HCl 5 mg 02/24/25 22:16 02/24/25 22:24 Oxycodone 5mg Immediate Release Tablet PO 02/24/25 22:17 5 mg ONCE ONE Administration ORDERS Category Date Time Status CT cervical spine wo con Stat Cat Scan 02/24/25 21:[address] head/brain wo con Stat Cat Scan 02/24/25 21:[address] thoracic spine wo con Stat Cat Scan 02/24/25 21:24 Completed Medical Decision Narrative: In summary patient is a 69-year-old male who presents to the emergency department for evaluation of neck pain after a fall. Patient is hemodynamically stable upon arrival, afebrile. Zickel exam is remarkable for C-spine tenderness on palpation along the length but no other dorsal spine tenderness. He spontaneously moves all 4 extremities with full range of motion. Daniel Coma Score is 15 cranials 2 through 12 intact grossly to exam. Pupils equal round reactive to light. He is neurovascularly intact in all 4 extremities. Patient has no chest wall tenderness no abdominal tenderness.. Differential diagnosis includes musculoskeletal injury versus occult fracture of the C-spine versus intracranial injury etc. Initial workup will be conducted with CT scan of the head and CT of the cervical and T spines. Initial interventions include Tylenol ibuprofen oxycodone. Initial workup ordered and pending at the time of handoff to Dr. Marley at 2200 hrs. <Gaurav Marley MD - Last Filed: 02/24/25 23:21> Vital Signs: 02/24/25 20:44 02/24/25 21:30 02/24/25 22:01 Temperature 98.1 F Temperature Source Oral Pulse Rate 68 65 Pulse Rate [Right Radial] 82 Respiratory Rate 18 Blood Pressure 115/68 129/76 Blood Pressure [Right Arm] 128/72 Blood Pressure Mean [Right Arm] 90 Blood Pressure Source [Right Arm] Automatic Cuff Blood Pressure Position [Right Arm] Sitting 02 Sat by Pulse Oximetry 95 97 96 Oxygen Delivery Method Room Air Nasal Cannula Nasal Cannula Oxygen Flow Rate (LPM) 2 3 02/24/25 22:31 02/24/25 23:01 Temperature Temperature Source Pulse Rate 71 83 Pulse Rate [Right Radial] Respiratory Rate Blood Pressure 105/64 L 107/62 L Blood Pressure [Right Arm] Blood Pressure Mean [Right Arm] Blood Pressure Source [Right Arm] Blood Pressure Position [Right Arm] 02 Sat by Pulse Oximetry 95 97 Oxygen Delivery Method Nasal Cannula Oxygen Flow Rate (LPM) 3 3 Orders (Tests/Meds): ED MEDICATIONS Discontinued Medications Generic Name Dose Route Start Last Admin Trade Name Jarrod PRN Reason Stop Dose Admin Acetaminophen 1,000 mg 02/24/25 22:16 02/24/25 22:24 Acetaminophen 500mg Tab PO 02/24/25 22:17 1,000 mg ONCE ONE Administration Oxycodone HCl 5 mg 02/24/25 22:16 02/24/25 22:24 Oxycodone 5mg Immediate Release Tablet PO 02/24/25 22:17 5 mg ONCE ONE Administration ORDERS Category Date Time Status CT cervical spine wo con Stat Cat Scan 02/24/25 21:[address] head/brain wo con Stat Cat Scan 02/24/25 21:[address] thoracic spine wo con Stat Cat Scan 02/24/25 21:24 Completed Medical Decision Narrative: In summary patient is a 69-year-old male who presents to the emergency department for evaluation of neck pain after a fall. Patient is hemodynamically stable upon arrival, afebrile. Zickel exam is remarkable for C-spine tenderness on palpation along the length but no other dorsal spine tenderness. He spontaneously moves all 4 extremities with full range of motion. [place] Coma Score is 15 cranials 2 through 12 intact grossly to exam. Pupils equal round reactive to light. He is neurovascularly intact in all 4 extremities. Patient has no chest wall tenderness no abdominal tenderness.. Differential diagnosis includes musculoskeletal injury versus occult fracture of the C-spine versus intracranial injury etc. Initial workup will be conducted with CT scan of the head and CT of the cervical and T spines. Initial interventions include Tylenol ibuprofen oxycodone. Initial workup ordered and pending at the time of handoff to Dr. Marley at 2200 hrs. Gaurav Marley: Upon assumption of care patient is hemodynamically stable. Noncontrasted CT scan of the head informally visualized by me no acute large intracranial hemorrhage. Upon repeat evaluation patient was able to range his neck 45 degrees in both directions and cervical spine is now clear. Trauma survey is negative for acute pathology. He is well-known to the emergency department has multiple mechanical falls and chronic significant vascular disease of his lower extremities. I had shared decision-making discussion with patient he does not wish to stay and be admitted at this time and daughter at bedside is agreeable with him going home. Patient is at his baseline oxygen requirement and baseline mobility requirement. Given this patient will be discharged and was given return precautions. Critical Care <RACHEL Holcomb - Last Filed: 02/24/25 22:16> Critical Care Time Critical Care Time: No
--- NOTE | 2025-02-24 21:24 | CT_ITS ---
PROCEDURE INFORMATION: Exam: CT Cervical Spine Without Contrast Exam date and time: 02/24/2025 9:55 PM Age: 69 years old Clinical indication: Injury or trauma; Fall; Other: Pain; Additional info: Fell face forward, neck pain TECHNIQUE: Imaging protocol: Computed tomography of the cervical spine without contrast. Radiation optimization: All CT scans at this facility use at least one of these dose optimization techniques: automated exposure control; mA and/or kV adjustment per patient size (includes targeted exams where dose is matched to clinical indication); or iterative reconstruction. COMPARISON: CT CERVICAL SPINE WO CON 02/10/2025 5:48 AM FINDINGS: Bones: No acute fracture. Straightening of the spine. Significant facet arthropathy with fusion of both C2-C3 facet joints and the left C3-C4 facet joint. Diffuse moderate degenerative disc disease. Anterior bridging ossification throughout the spine most prominent from C4 through C7. No significant disc bulge or herniation. No severe spinal canal stenosis. Prominent bony foraminal stenosis on the right at C4-C5 and on the left at C3-C4. Lungs: Lung apices are normal. Soft tissues: Unremarkable. IMPRESSION: No acute cervical spine fracture.
--- NOTE | 2025-02-24 21:24 | CT_ITS ---
PROCEDURE INFORMATION: Exam: CT Head Without Contrast Exam date and time: 02/24/2025 9:53 PM Age: 69 years old Clinical indication: Injury or trauma; Fall; Other: Pain; Additional info: Fell face forward TECHNIQUE: Imaging protocol: Computed tomography of the head without contrast. Radiation optimization: All CT scans at this facility use at least one of these dose optimization techniques: automated exposure control; mA and/or kV adjustment per patient size (includes targeted exams where dose is matched to clinical indication); or iterative reconstruction. COMPARISON: CT HEAD/BRAIN WO CON 02/10/2025 5:43 AM FINDINGS: Brain: There is age related atrophy. No hemorrhage. There is periventricular white matter hypodensity consistent with chronic small vessel disease. No mass effect. Cerebral ventricles: Ventricular enlargement secondary to parenchymal atrophy. Paranasal sinuses: Visualized sinuses are unremarkable. No fluid levels. Mastoid air cells: Opacification of the inferior mastoid air cells bilaterally. Orbital cavities: There is evidence for left lens extraction. Stable appearance of a suspected old medial left orbital wall blowout fracture. Bones: There is an old right nasal bone fracture. No acute fracture. Soft tissues: There is a small left frontal scalp hematoma. IMPRESSION: 1. No acute intracranial abnormality. 2. Small left frontal scalp hematoma.
--- NOTE | 2025-02-24 21:24 | CT_ITS ---
PROCEDURE INFORMATION: Exam: CT Thoracic Spine Without Contrast Exam date and time: 02/24/2025 9:57 PM Age: 69 years old Clinical indication: Injury or trauma; Fall; Other: Pain; Additional info: Fell face forward, neck pain TECHNIQUE: Imaging protocol: Computed tomography of the thoracic spine without contrast. Radiation optimization: All CT scans at this facility use at least one of these dose optimization techniques: automated exposure control; mA and/or kV adjustment per patient size (includes targeted exams where dose is matched to clinical indication); or iterative reconstruction. COMPARISON: CT THORACIC SPINE WO CON 02/10/2025 5:51 AM FINDINGS: Bones/joints: There are healed/healing fractures of the posterior left 5th through 7th ribs. There is posterior hardware fusion from T5 through T11. Separate fixation rods are noted from T5 through T7 and at the T8 through T11 levels. The hardware is intact. Diffuse moderate degenerative disc disease. Stable mild compression deformity of T7. No acute fracture. Soft tissues: Unremarkable. Lungs: There are compressive/consolidative changes of the posterior aspect of both lungs. Pleural spaces: There are small bilateral pleural effusions. IMPRESSION: 1. No acute thoracic spine fracture. 2. Persistent effusions and compressive/consolidative changes both lungs.
[2025-02-24 21:30] VITALS: BP 115/68; PULSE 68; O2SAT 97
[2025-02-24 22:01] VITALS: BP 129/76; PULSE 65; O2SAT 96
[2025-02-24] MEDS: ACETAMINOPHEN 500MG TAB 1000 MG PO (22:24)
[2025-02-24] MEDS: OXYCODONE 5MG IMMEDIATE RELEASE TABLET 5 MG PO (22:24)
[2025-02-24 22:31] VITALS: BP 105/64; PULSE 71; O2SAT 95
[2025-02-24 23:01] VITALS: BP 107/62; PULSE 83; O2SAT 97
[2025-02-24 23:29] VITALS: BP 107/62; PULSE 73; RESP 16; TEMP 36.7; O2SAT 96
--- OUTSIDE RECORDS SUMMARY | 2025-03-12 20:00 | XMS_ITS | Clinical Summary ---
Author Organization Unknown Care Team Providers Care Flowers Salesperson Name Role Phone [facility] Unavailable Unavailable MATTY PT, ESME Unavailable Unavailable TAMMY HAIRSPRING TRUER, SHANIQUE Unavailable Unavailable Payers Payer Name Policy Type Policy Number Effective Date Expira tion Date [facility].OPTUM.VACCN.PDGM.C.AUTH Problems Condition Name Condition Details Condition Category [...] 09-03 00:00: 00 ATHSCL HEART DISEASE OF [place] CORONARY ARTERY W/O ANG PCTRS Active 09-03 [...] ON SUPPLEMENTAL OXYGEN Active 09-03 00:00: 00 [facility] (CURRENT) USE OF ORAL HYPOGLYCEMIC DRUGS Active [...] 11-20 00:00: 00 06-23 23:59 :00 No [id number] PAIN 3 tablet 2 TIMES DAILY 3 tablet 2 TIMES DAILY (route: oral) Med Classific ation: Analgesic , Anti-infl ammatory or Antipyret ic alogliptin 25 mg tablet 11-20 00:00: 00 06-23 23:59 :00 No [id number] BLOOD SUGAR 1 tablet DAILY 1 tablet DAILY (route: oral) Med Classific ation: Endocrine Aspirin Childrens 81 mg chewable tablet 11-20 00:00: 00 06-23 23:59 :00 No [id number] HEART 1 tablet DAILY 1 tablet DAILY (route: oral) Med Classific ation: Hematolog ical Agents bumetanide 2 mg tablet 11-20 00:00: 00 06-23 23:59 :00 No [id number] EDEMA 1 tablet DAILY 1 tablet DAILY (route: oral) Med Classific ation: Cardiovas cular Therapy Agents cholecalcif trav (vitamin D3) 25 mcg (1,000 unit) tablet 11-20 00:00: 00 06-23 23:59 :00 No [id number] SUPPLEMENT 1 tablet DAILY 1 tablet DAILY (route: oral) Med Classific ation: Electroly te Balance-N utritiona l Products ferrous sulfate 324 mg (65 mg iron) tablet,chapito yed release 11-20 00:00: 00 06-23 23:59 :00 No [id number] SUPPLEMENT 1 tablet DAILY 1 tablet DAILY (route: oral) Med Classific ation: Electroly te Balance-N utritiona l Products finasteride 5 mg tablet 11-20 00:00: 00 06-23 23:59 :00 No [id number] PROSTATE 1 tablet DAILY 1 tablet DAILY (route: oral) Med Classific ation: Genitouri nary Therapy gabapentin 300 mg capsule 11-20 00:00: 00 06-23 23:59 :00 No [id number] NERVE DAMAGE Per instruc tions DIRECTED Per instructio ns DIRECTED (route: oral) Med Classific ation: Central Nervous System Agents glucose 4 gram chewable tablet 11-20 00:00: 00 06-23 23:59 :00 No [id number] LOW BLOOD SUGAR 4 tablet NEEDED 4 tablet NEEDED (route: oral) Med Classific ation: Endocrine Humulin R U-500 (Conc) Insulin Kwikpen 500 unit/mL (3 mL) subcutaneou s 11-19 00:00: 00 06-23 23:59 :00 No [id number] T2DM Per instruc tions DIRECTED Per instructio ns DIRECTED (route: subcutaneo us) Med Classific ation: Endocrine Jardiance 25 mg tablet 11-20 00:00: 00 06-23 23:59 :00 No [id number] T2DM 0.5 tablet DAILY 0.5 tablet DAILY (route: oral) Med Classific ation: Endocrine methocarbam ol 750 mg tablet 11-20 00:00: 00 06-23 23:59 :00 No [id number] MUSCLE SPASMS 1 tablet EVERY 6 HOURS 1 tablet EVERY 6 HOURS (route: oral) Med Classific ation: Locomotor System metoprolol tartrate 100 mg tablet 11-20 00:00: 00 06-23 23:59 :00 No [id number] BLOOD PRESSURE 1 tablet 2 TIMES DAILY 1 tablet 2 TIMES DAILY (route: oral) Med Classific ation: Cardiovas cular Therapy Agents pantoprazol e 40 mg tablet,chapito yed release 11-20 00:00: 00 06-23 23:59 :00 No [id number] STOMACH 1 tablet 2 TIMES DAILY 1 tablet 2 TIMES DAILY (route: oral) Med Classific ation: Gastroint estinal Therapy Agents tamsulosin 0.4 mg capsule 11-20 00:00: 00 06-23 23:59 :00 No [id number] PROSTATE 1 capsule BEDTIME 1 capsule BEDTIME (route: oral) Med Classific ation: Genitouri nary Therapy tramadol 50 mg tablet 11-20 00:00: 00 06-23 23:59 :00 No [id number] PAIN 1 tablet EVERY 6 HOURS 1 tablet EVERY 6 HOURS (route: oral) Med Classific ation: Analgesic , Anti-infl ammatory or Antipyret ic venlafaxine ER 150 mg tablet,exte nded release 24 hr 11-20 00:00: 00 06-23 23:59 :00 No [id number] PAIN 1 tablet DAILY 1 tablet DAILY (route: oral) Med Classific ation: Central Nervous System Agents etodolac 400 mg tablet 11-20 00:00: 00 06-23 23:59 :00 No [id number] PAIN/INFLAM MATION 1 tablet EVERY 6 HOURS 1 tablet EVERY 6 HOURS (route: oral) Med Classific ation: Analgesic , Anti-infl ammatory or Antipyret ic alogliptin 25 mg tablet 2023-09 00:00: 00 09-15 00:00 :00 No [id number] T2DM 1 tablet DAILY 1 tablet DAILY (route: oral) Med Classific ation: Endocrine ascorbic acid (vitamin C) 500 mg tablet 2023-09 00:00: 00 Yes [id number] SUPPLEMENT 1 tablet DAILY 1 tablet DAILY (route: oral) Med Classific ation: Electroly te Balance-N utritiona l Products Aspirin Childrens 81 mg chewable tablet 2023-09 00:00: 00 09-15 00:00 :00 No [id number] HEART 1 tablet DAILY 1 tablet DAILY (route: oral) Med Classific ation: Hematolog ical Agents Biktarvy 50 mg-200 mg-25 mg tablet 2023-09 00:00: 00 Yes [id number] IMMUNE 1 tablet DAILY 1 tablet DAILY (route: oral) Med Classific ation: Anti-Infe ctive Agents bumetanide 2 mg tablet 2023-09 00:00: 00 Yes [id number] EDEMA 1 tablet 2 TIMES DAILY 1 tablet 2 TIMES DAILY (route: oral) Med Classific ation: Cardiovas cular Therapy Agents ferrous sulfate 324 mg (65 mg iron) tablet,chapito yed release 2023-09 00:00: 00 Yes [id number] SUPPLEMENT 1 tablet DAILY 1 tablet DAILY (route: oral) Med Classific ation: Electroly te Balance-N utritiona l Products finasteride 5 mg tablet 2023-09 00:00: 00 Yes [id number] PROSTATE 1 tablet DAILY 1 tablet DAILY (route: oral) Med Classific ation: Genitouri nary Therapy gabapentin 300 mg capsule 2023-09 00:00: 00 Yes [id number] PAIN 2 capsule DAILY 2 capsule DAILY (route: oral) Med Classific ation: Central Nervous System Agents Humulin R U-500 (Conc) Insulin Kwikpen 500 unit/mL (3 mL) subcutaneou s 2023-09 00:00: 00 09-15 00:00 :00 No [id number] T2DM 65 unit 2 TIMES DAILY 65 unit 2 TIMES DAILY (route: subcutaneo us) Med Classific ation: Endocrine Jardiance 25 mg tablet 2023-09 00:00: 00 09-15 00:00 :00 No [id number] T2DM 0.5 tablet DAILY 0.5 tablet DAILY (route: oral) Med Classific ation: Endocrine methocarbam ol 750 mg tablet 2023-09 00:00: 00 Yes [id number] MUSCLE SPASMS 1 tablet 3 TIMES DAILY 1 tablet 3 TIMES DAILY (route: oral) Med Classific ation: Locomotor System metoprolol tartrate 100 mg tablet 2023-09 00:00: 00 Yes [id number] BLOOD PRESSURE 1 tablet 2 TIMES DAILY 1 tablet 2 TIMES DAILY (route: oral) Med Classific ation: Cardiovas cular Therapy Agents Protonix 40 mg tablet,chapito yed release 2023-09 00:00: 00 Yes [id number] GERD 1 tablet DAILY 1 tablet DAILY (route: oral) Med Classific ation: Gastroint estinal Therapy Agents Stiolto Respimat 2.5 mcg-2.5 mcg/actuati on solution for inhalation 2023-09 00:00: 00 Yes [id number] BREATHING 2 puff DAILY 2 puff DAILY (route: inhalation ) Med Classific ation: Respirato ry Therapy Agents tamsulosin 0.4 mg capsule 2023-09 00:00: 00 Yes [id number] PROSTATE 1 capsule DAILY 1 capsule DAILY (route: oral) Med Classific ation: Genitouri nary Therapy tramadol 50 mg tablet 2023-09 00:00: 00 Yes [id number] PAIN 1 tablet 3 TIMES DAILY 1 tablet 3 TIMES DAILY (route: oral) Med Classific ation: Analgesic , Anti-infl ammatory or Antipyret ic venlafaxine ER 150 mg tablet,exte nded release 24 hr 2023-09 00:00: 00 Yes [id number] MOOD 1 tablet DAILY 1 tablet DAILY (route: oral) Med Classific ation: Central Nervous System Agents Ventolin HFA 90 mcg/actuati on aerosol inhaler 2023-09 00:00: 00 09-15 00:00 :00 No [id number] BREATHING 2 puff EVERY 4 HOURS 2 puff EVERY 4 HOURS (route: inhalation ) Med Classific ation: Respirato ry Therapy Agents Vitamin D3 25 mcg (1,000 unit) tablet 2023-09 00:00: 00 Yes [id number] SUPPLEMENT 1 tablet DAILY 1 tablet DAILY (route: oral) Med Classific ation: Electroly te Balance-N utritiona l Products digoxin 125 mcg (0.125 mg) tablet 09-15 00:00: 00 02-20 23:59 :00 No [id number] HEART 1 tablet DAILY 1 tablet DAILY (route: oral) Med Classific ation: Cardiovas cular Therapy Agents diltiazem 60 mg tablet 09-15 00:00: 00 Yes [id number] ANGINA 1 tablet EVERY 8 HOURS 1 tablet EVERY 8 HOURS (route: oral) Med Classific ation: Cardiovas cular Therapy Agents Jardiance 10 mg tablet 09-15 00:00: 00 02-20 23:59 :00 No [id number] T2DM 1 tablet DAILY 1 tablet DAILY (route: oral) Med Classific ation: Endocrine sitagliptin 100 mg tablet 09-15 00:00: 00 Yes [id number] T2DM 1 tablet DAILY 1 tablet DAILY (route: oral) Med Classific ation: Endocrine buprenorphi ne 7.5 mcg/hour weekly transdermal patch 02-23 00:00: 00 Yes [id number] PAIN 1 patch, transde rmal weekly WEEKLY 1 patch, transderma l weekly WEEKLY (route: transderma l) Med Classific ation: Analgesic , Anti-infl ammatory or Antipyret ic Advil 200 mg tablet 02-20 00:00: 00 Yes [id number] PAIN 2 tablet DAILY 2 tablet DAILY (route: oral) Med Classific ation: Analgesic , Anti-infl ammatory or Antipyret ic amoxicillin 875 mg-potassiu m clavulanate 125 mg tablet 02-23 00:00: 00 Yes [id number] PNEUMONIA 1 tablet 2 TIMES DAILY 1 tablet 2 TIMES DAILY (route: oral) Med Classific ation: Anti-Infe ctive Agents azithromyci n 500 mg tablet 02-23 00:00: 00 Yes [id number] PNEUMONIA 1 tablet DAILY 1 tablet DAILY (route: oral) Med Classific ation: Anti-Infe ctive Agents Humulin R U-500 (Conc) Insulin Kwikpen 500 unit/mL (3 mL) subcutaneou s 02-24 00:00: 00 Yes [id number] DM Per instruc tions 2 TIMES DAILY Per instructio ns 2 TIMES DAILY (route: subcutaneo us) Med Classific ation: Endocrine oxygen gas for inhalation 02-20 00:00: 00 Yes [id number] SOA 3 Liter O2 - CONTINUOUS 3 [...] TO EVALUATE, OBSERVE / ASSESS, AND MONITOR, HAIRSPRING TRUER TO OBSERVE AND MONITOR, PROVIDE SKILLED THERAPEUTIC INTERVENTION, ACTIVITY, EDUCATION, AND TRAINING TO ADDRESS; [code = AGENCY MAY PERFORM A RESUMPTION OF CARE VISIT FOLLOWING ANY HOSPITAL ADMISSION. PT TO EVALUATE, OBSERVE / ASSESS, AND MONITOR, HAIRSPRING TRUER TO OBSERVE AND MONITOR, PROVIDE SKILLED THERAPEUTIC INTERVENTION, ACTIVITY, EDUCATION, AND TRAINING TO ADDRESS;] Future Scheduled Test THERAPEUTI C EXERCISES AND ESTABLISHING A HOME EXERCISE PROGRAM (PT/HAIRSPRING TRUER) [code = THERAPEUTIC EXERCISES AND ESTABLISHING A HOME EXERCISE PROGRAM (PT/HAIRSPRING TRUER)] Future Scheduled Test NEUROMUSCU LAR RE-EDUCATION / BALANCE / POSTURAL CONTROL (PT) [code = NEUROMUSCULAR RE-EDUCATION / BALANCE / POSTURAL CONTROL (PT)] Future Scheduled Test PT/HAIRSPRING TRUER TO PROVIDE GAIT TRAINING FOR IMPROVED MOBILITY AND /OR TO NORMALIZE GAIT PATTERN [code = PT/HAIRSPRING TRUER TO PROVIDE GAIT TRAINING FOR IMPROVED MOBILITY AND /OR TO NORMALIZE GAIT PATTERN] Future Scheduled Test SIT TO/FRO M STAND TRANSFERS (PT/HAIRSPRING TRUER) [code = SIT TO/FROM STAND TRANSFERS (PT/HAIRSPRING TRUER)] Goal 2024-11-12 Patient Goal - R ETURN [...] End Date/Time Encounter Type Admission Type Attending Clinicians Care Facility Care Department Encounter ID Discharge Date Discharge Status Discharge Condition Discharge Reason Percent Goals Met 2025-01-13 00:00:00 2025-03-13 00:00:00 Outpatient RECERTIFIC ESME [facility] [id number]
== END 2025-02-24 23:31 | disposition home or self-care (01) ==
PROVIDERS: Emergency Provider Emergency Medicine; PCP Internal Medicine
DX: M54.2 Cervicalgia (principal); R29.6 Repeated falls; W19.XXXA Unspecified fall, initial encounter
CPT/HCPCS: 70450; 72125; 72128; 99285

== ENCOUNTER 2025-02-27 20:00 | Inpatient (IN) | payer OTHER, SELFPAY ==
[2025-02-27] VITALS (13 sets, daily range): BP systolic 87–137; BP diastolic 52–88; PULSE 78–95; RESP 13–24; TEMP 36.9–37.1; O2SAT 95–100; BMI 43.2
--- NOTE | 2025-02-27 19:55 | ECG_ITS ---
APPROVED REPORT Exam: Resting ECG HR:98 bpm ECG Measurements Heart Rate 98 AXES QRSd 153 QRS 111 QT 384 T -24 QTc 439 Conclusion Atrial fibrillation Right bundle branch block Incomplete left bundle branch block No STEMI Electronically signed by : MIKA TREVIÑO, 02/27/2025 23:01:19
--- NOTE | 2025-02-27 20:02 | CT_ITS ---
PROCEDURE INFORMATION: Exam: CTA Neck With Contrast Exam date and time: 02/27/2025 9:13 PM Age: 69 years old Clinical indication: Other: AMS; Additional info: SOA, hypoxemia, AMS TECHNIQUE: Imaging protocol: Computed tomographic angiography of the neck with contrast. Exam focused on the cervical segments of the vasculature. 3D rendering (Not supervised by radiologist): MIP and/or 3D reconstructed images were created by the technologist. Radiation optimization: All CT scans at this facility use at least one of these dose optimization techniques: automated exposure control; mA and/or kV adjustment per patient size (includes targeted exams where dose is matched to clinical indication); or iterative reconstruction. Contrast material: ISOVUE; Contrast volume: 80 ml; Contrast route: INTRAVENOUS (IV); COMPARISON: CT ANGIO NECK 11/03/2024 3:26 PM FINDINGS: Right common carotid artery: No stenosis. No dissection or occlusion. Right internal carotid artery: No stenosis of the extracranial segment. No dissection or occlusion. Right external carotid artery: No occlusion or stenosis of the origin. Left common carotid artery: No stenosis. No dissection or occlusion. Left internal carotid artery: Moderate stenosis estimated at 50 % involving the proximal left ICA due to eccentric calcified plaque formation over a 1 cm segment that begins about 2 cm distal to the origin. Left external carotid artery: No occlusion or stenosis of the origin. Right vertebral artery: No stenosis. No dissection or occlusion. Left vertebral artery: No stenosis. No dissection or occlusion. Soft tissues: Normal. No significant soft tissue swelling. Bones/joints: No acute fracture. IMPRESSION: Moderate stenosis estimated at 50 % involving the proximal left ICA due to eccentric calcified plaque formation over a 1 cm segment that begins about 2 cm distal to the origin. REFERENCES: NASCET CRITERIA. The degree of stenosis in the cervical segment of the internal carotid artery is based on NASCET criteria. Normal is no stenosis. Mild is less than 50% stenosis. Moderate is 50-69% stenosis. Severe is 70% to 99% stenosis. Total occlusion is no detectable patent lumen.
--- NOTE | 2025-02-27 20:02 | CT_ITS ---
PROCEDURE INFORMATION: Exam: CTA Chest With Contrast CTA Abdomen and Pelvis With Contrast Exam date and time: 02/27/2025 9:17 PM Age: 69 years old Clinical indication: Shortness of breath; Abdominal pain; Generalized; Additional info: AMS, pain all over, AMS TECHNIQUE: Imaging protocol: Computed tomographic angiography of the chest with contrast. Exam focused on the arteries. Computed tomographic angiography of the abdomen and pelvis with contrast. Exam focused on the arteries. 3D rendering (Not supervised by radiologist): MIP and/or 3D reconstructed images were created by the technologist. Radiation optimization: All CT scans at this facility use at least one of these dose optimization techniques: automated exposure control; mA and/or kV adjustment per patient size (includes targeted exams where dose is matched to clinical indication); or iterative reconstruction. Contrast material: ISOVUE; Contrast volume: 80 ml; Contrast route: INTRAVENOUS (IV); COMPARISON: CT CHEST WO CON 02/10/2025 5:45 AM FINDINGS: VASCULATURE: Great vessels off aortic arch: Common takeoff of the left common carotid and right brachiocephalic arteries. Pulmonary arteries: Enlargement of the pulmonary trunk measuring 5 cm. No definite pulmonary embolus. Beam hardening artifact limits evaluation of the segmental and subsegmental branches. Aorta: Mild-moderate atherosclerotic changes. No aortic aneurysm. No aortic dissection. Celiac trunk and mesenteric arteries: No occlusion or significant stenosis. Renal arteries: No occlusion or significant stenosis. Right iliac arteries: No occlusion or significant stenosis. Left iliac arteries: No occlusion or significant stenosis. CHEST: Lungs: Mild posterior right upper and bilateral lower lobe atelectasis. Pleural spaces: Small bilateral loculated pleural effusions, [id number]. Fluid extends along the bilateral major fissures. Heart: Unremarkable. No cardiomegaly. No pericardial effusion. ABDOMEN AND PELVIS: Liver: No mass. Gallbladder and biliary ducts: Nonspecific dilation of the gallbladder. No gallbladder wall thickening. Layering cholelithiasis. No biliary ductal dilation. Pancreas: Unremarkable. No mass. No ductal dilation. Spleen: Unremarkable. No splenomegaly. Adrenal glands: Unremarkable. No mass. Kidneys and ureters: Unremarkable. No solid mass. No hydronephrosis. Stomach and bowel: No mechanical obstruction. No mucosal thickening. Appendix: Appendix not definitely seen. No right lower quadrant inflammation identified. Intraperitoneal space: Unremarkable. No free air. No significant fluid collection. Urinary bladder: Unremarkable. No mass. Reproductive: Unremarkable as visualized. Lymph nodes: Unremarkable. No enlarged lymph nodes. Bones/joints: Chronic fractures of the posterior left 5th-7th ribs. T5-T11 posterior fusion. Mild multilevel spondylosis. Osseous irregularity of the pubic symphysis may be secondary to remote trauma or degenerative changes. Soft tissues: 4.7 x 2.5 cm fluid collection in the left lower anterior abdominal wall pannus with surrounding fat stranding likely representing an abscess. Additional soft tissue density in the right lower anterior abdominal wall pannus measuring 4.5 x 3 cm with associated fat stranding may represent a phlegmon of a developing abscess. 12.6 x 5 cm left lateral abdominal wall lipoma between the internal and external obliques. IMPRESSION: 1. Fluid collection in the left lower anterior abdominal wall pannus with surrounding fat stranding likely representing an abscess. 2. Additional soft tissue density in the right lower anterior abdominal wall pannus with associated fat stranding may represent a phlegmon of a developing abscess. 3. Small bilateral loculated pleural effusions, [id number]. 4. No pulmonary embolus. 5. No acute aortic syndrome.
--- NOTE | 2025-02-27 20:02 | CT_ITS ---
PROCEDURE INFORMATION: Exam: CTA Head With Contrast, Arteriography Exam date and time: 02/27/2025 9:13 PM Age: 69 years old Clinical indication: Other: AMS; Additional info: SOA, hypoxemia, AMS TECHNIQUE: Imaging protocol: Computed tomographic angiography of the head with contrast. Exam focused on the arteries. 3D rendering (Not supervised by radiologist): MIP and/or 3D reconstructed images were created by the technologist. Radiation optimization: All CT scans at this facility use at least one of these dose optimization techniques: automated exposure control; mA and/or kV adjustment per patient size (includes targeted exams where dose is matched to clinical indication); or iterative reconstruction. Contrast material: ISOVUE; Contrast volume: 80 ml; Contrast route: INTRAVENOUS (IV); COMPARISON: CT ANGIO HEAD 11/03/2024 3:26 PM FINDINGS: ANTERIOR CIRCULATION: Right internal carotid artery: Intracranial segment is patent with no significant stenosis. No aneurysm. Right middle cerebral artery: No occlusion or significant stenosis. No aneurysm. Right anterior cerebral artery: No occlusion or significant stenosis. No aneurysm. Left internal carotid artery: Intracranial segment is patent with no significant stenosis. No aneurysm. Left middle cerebral artery: No occlusion or significant stenosis. No aneurysm. Left anterior cerebral artery: No occlusion or significant stenosis. No aneurysm. POSTERIOR CIRCULATION: Right vertebral artery: No occlusion or significant stenosis. No aneurysm. Left vertebral artery: No occlusion or significant stenosis. No aneurysm. Basilar artery: No occlusion or significant stenosis. No aneurysm. Right posterior cerebral artery: No occlusion or significant stenosis. No aneurysm. Left posterior cerebral artery: No occlusion or significant stenosis. No aneurysm. Brain: No definite mass, mass effect, or midline shift. Cerebral ventricles: No ventriculomegaly. Bones/joints: Unremarkable. No acute fracture. Soft tissues: Unremarkable. IMPRESSION: No large vessel stenosis or occlusion.
--- NOTE | 2025-02-27 20:03 | CT_ITS ---
PROCEDURE INFORMATION: Exam: CT Head Without Contrast Exam date and time: 02/27/2025 9:09 PM Age: 69 years old Clinical indication: Altered mental status/memory loss; Additional info: AMS, hypoxemia, CVA ruleout TECHNIQUE: Imaging protocol: Computed tomography of the head without contrast. Radiation optimization: All CT scans at this facility use at least one of these dose optimization techniques: automated exposure control; mA and/or kV adjustment per patient size (includes targeted exams where dose is matched to clinical indication); or iterative reconstruction. COMPARISON: CT HEAD/BRAIN WO CON 02/24/2025 9:53 PM FINDINGS: Limitations: Motion artifact - mild. Brain: Moderate atrophy. No definite intracranial hemorrhage. No mass. Few scattered foci of decreased attenuation within periventricular/subcortical white matter. No definite edema. Cerebral ventricles: No hydrocephalus. Paranasal sinuses: No acute sinusitis. Mastoid air cells: Partial opacification of mastoids. Orbital cavities: Unremarkable as visualized. Bones: No acute fracture. Soft tissues: Unremarkable. Vasculature: Mild atherosclerotic disease of intracranial arteries. IMPRESSION: 1. Probable chronic microvascular ischemic changes. Acute infarction may be CT occult within first 24 hours. If a focal deficit persists, consider followup CT or MRI for further evaluation. 2. Mastoid disease.
--- NOTE | 2025-02-27 20:09 | [facility].EDCP ---
Discharge Plan Disposition Patient Disposition: Admitted Prescriptions Prescriptions: No Action cholecalciferol (vitamin D3) 25 mcg (1,000 unit) capsule 25 mcg PO DAILY digoxin 125 mcg (0.125 mg) tablet 125 mcg PO DAILY Qty: 90 3RF finasteride 5 MG tablet 5 mg PO DAILY tamsulosin 0.4 MG capsule 0.4 mg PO HS methocarbamol 750 MG tablet 750 mg PO Q6HP PRN (Reason: Muscle Spasm) tramadol 50 mg tablet 50 mg PO 0900,1700 Patient Comments: 50 MG orally every 6 hours as needed As Needed for Severe Pain (Scale Score 7-10) for 30 days Rx Instructions: TAKE 1 TABLET PO EVERY MORNING, TAKE 1 TABLET EVERY EVENING, TAKE 1.5 TABLETS AT BEDTIME FOR PAIN albuterol sulfate 90 mcg/actuation Hfa Aerosol Inhaler 1 inh INHALATION QIDP PRN (Reason: Shortness Of Breath) sitagliptin 100 mg Tablet 100 mg PO DAILY pantoprazole 40 MG tablet,delayed release (DR/EC) 40 mg PO DAILY 30 Days Qty: 0 0RF lidocaine 5 % Adhesive Patch,Medicated 2 patch TOPICAL DAILY Rx Instructions: leave on most painful area for up to 12 hrs Biktarvy 50-200-25 mg Tablet 1 tab PO DAILY aspirin 81 mg Capsule 81 mg PO DAILY Stiolto Respimat 2.5-2.5 mcg/actuation Mist 2 puff INHALATION DAILY metoprolol tartrate 100 mg Tablet 50 mg PO BID gabapentin 300 mg Capsule 900 mg PO 1700,2100 gabapentin 300 mg Capsule 600 mg PO DAILY tramadol 50 mg Tablet 100 mg PO HS bumetanide 2 mg Tablet 2 mg PO BIDL 30 Days Qty: 60 0RF Rx Instructions: ONE TABLET BY MOUTH DAILY, TAKE ADDITIONAL EVENING DOSE FOR WEIGHT GAIN OF 3 LB IN 24 HOURS OR 5 LB IN A WEEK. venlafaxine [Effexor XR] 150 mg Capsule,Extended Release 24hr 150 mg PO DAILY Clinical Impressions Clinical Impression: Acute hypoxemic respiratory failure, Sepsis, CHF exacerbation Instructions Patient Instructions: DI for Altered Mental Status Print Language Print Language: [place] Discharge ED Provider: Rich Carreno HPI General Chief Complaint: Altered Mental Status Stated Complaint: Shortness of Breath Time Seen by Provider: 02/27/25 20:02 History of Present Illness HPI narrative: Please note that above description of symptoms, in this electronic medical record under categorization of recalled from ER triage doctor by RN are reflective of an initial nursing assessment, however, is not reflective of my full history and physical exam that was personally taken and clarified. Consequentially, this preceding description of symptoms, which may include the patient's categorized chief complaint in the EMR, do not reflect my personal clinical impression, and the ultimate description of history of present illness and patient stated complaints should be deferred to this section of the note. Unless stated otherwise or congruent with this section of the note, additional signs, symptoms, or incongruence should be interpreted as inaccurate with my clinical impression. Related Data Home Medications ?Medication ?Instructions ?Recorded ?Confirmed finasteride 5 mg tablet 5 mg PO DAILY 11/13/18 11/12/24 tamsulosin 0.4 mg capsule 0.4 mg PO HS 01/06/20 11/12/24 methocarbamol 750 mg tablet 750 mg PO Q6HP PRN Muscle Spasm 11/26/20 11/12/24 cholecalciferol (vitamin D3) 25 25 mcg PO DAILY 12/30/20 11/12/24 mcg (1,000 unit) capsule venlafaxine 150 mg 150 mg PO DAILY 09/16/23 11/12/24 capsule,extended release 24 hr (Effexor XR) tramadol 50 mg tablet 50 mg PO 0900,1700 08/19/24 11/12/24 albuterol sulfate 90 mcg/actuation 1 inh inhalation QIDP PRN 08/20/24 11/12/24 aerosol inhaler Shortness Of Breath sitagliptin 100 mg tablet 100 mg PO DAILY 08/20/24 11/12/24 aspirin 81 mg capsule 81 mg PO DAILY 11/04/24 11/12/24 bictegravir 50 mg-emtricitabine 1 tab PO DAILY 11/04/24 11/12/24 200 mg-tenofovir alafenam 25 mg tablet (Biktarvy) gabapentin 300 mg capsule 600 mg PO DAILY 11/04/24 11/12/24 gabapentin 300 mg capsule 900 mg PO 1700,2100 11/04/24 11/12/24 lidocaine 5 % topical patch 2 patch topical DAILY 11/04/24 11/12/24 metoprolol tartrate 100 mg tablet 50 mg PO BID 11/04/24 11/12/24 tiotropium 2.5 mcg-olodaterol 2.5 2 puff inhalation DAILY 11/04/24 11/12/24 mcg/actuation mist for inhalation (Stiolto Respimat) tramadol 50 mg tablet 100 mg PO HS 11/04/24 11/12/24 Previous Rx's ?Medication ?Instructions ?Recorded pantoprazole 40 mg tablet,delayed 40 mg PO DAILY 30 days #0 tabs 08/23/24 release digoxin 125 mcg (0.125 mg) tablet 125 mcg PO DAILY #90 tabs 09/16/24 bumetanide 2 mg tablet 2 mg PO BIDL 30 days #60 tabs 11/05/24 Allergies Allergy/AdvReac Type Severity Reaction Status Date / Time SANDRA Inhibitors Allergy Unknown Unknown Verified 02/27/25 20:15 allergy reaction clofibrate Allergy Unknown Unknown Verified 02/27/25 20:15 allergy reaction enalapril Allergy Unknown Unknown Verified 02/27/25 20:15 allergy reaction erythromycin base Allergy Unknown Unknown Verified 02/27/25 20:15 allergy reaction gemfibrozil Allergy Unknown Unknown Verified 02/27/25 20:15 allergy reaction hepatitis A virus vaccine Allergy Unknown Unknown Verified 02/27/25 20:15 allergy reaction hydralazine Allergy Unknown Unknown Verified 02/27/25 20:15 allergy reaction Macrolide Antibiotics Allergy Unknown Unknown Verified 02/27/25 20:15 allergy reaction pravastatin (From Pravachol) Allergy Unknown Unknown Verified 02/27/25 20:15 allergy reaction Hazafgm-PII-DsO Reductase Allergy Unknown Unknown Verified 02/27/25 20:15 Inhibitor (Xogofry-Ehs-Bby allergy Reductase Inhibitor) reaction PFSH PFSH Disclaimer: The information contained in this section may have been updated after the patient was seen, as this information can be updated by other users. Medical History Encounter for monitoring digoxin therapy Diabetic toe ulcer Left second toe. Atrial flutter Acute on chronic heart failure with preserved ejection fraction (HFpEF) HLD (hyperlipidemia) GERD (gastroesophageal reflux disease) CAD (coronary artery disease) CHF (congestive heart failure) Pneumonia Pleural effusion, bilateral Acute respiratory failure with hypoxia and hypercarbia Hypertension Chronic venous stasis dermatitis of both lower extremities HIV (human immunodeficiency virus infection) Diabetes mellitus, type 2 Closed fracture of neck of left humerus GI bleed due to NSAIDs Morbid obesity with BMI of 45.0-49.9, adult Family History Other No significant family history Social History Smoking Status: Never smoker second hand exposure: No alcohol intake: never substance use type: denies use current occupational status: retired Travel in the last 8 weeks?: None household members: spouse and family housing: house current occupational exposures/hazards: No caffeine: Yes Have you lived/traveled outside [place] in past 30 days?: No Contact w/someone who lives/traveled outside US past 30 days?: No Exposure to someone with infectious disease in past 14 days?: No Do you have a fever (greater than 100.4 F or 38 C)?: No Have you tested positive for COVID-19?: No Exposed to someone with COVID-19 in past 14 days?: No Do you have a sore throat?: No Do you have a cough?: No Do you have any weakness?: No Do you have any diarrhea?: No Are you experiencing any unusual bleeding?: No Do you have any muscle aches/pain?: No Do you have any abdominal pain?: No Are you experiencing loss of taste or smell?: No Other Medical History Have you received the Flu Vaccine for this season: No Have you received the Pneumonia Vaccine: Yes ROS Obtained: Yes All systems reviewed & no additional complaints except as documented Physical Exam General General appearance: alert, in distress and obese Neck Neck exam: Present trachea midline Chest Chest inspection: Present normal inspection and symmetric chest wall rise Respiratory Respiratory exam: Present wheezes, prolonged expiratory phase and other (Very quiet breath sounds bilaterally); Absent respiratory distress, stridor or accessory muscle use Cardiovascular Cardiovascular exam: Present irregular rhythm and other (Pulses equal and symmetric in upper and lower extremities) Abdominal Exam Abdominal exam: Present soft and tenderness (Overlying bilateral lower quadrant hematomas from Lovenox); Absent distention, guarding, rebound or rigidity Extremities Exam Extremities exam: Absent edema Neurological Exam Neurological exam: Present alert, oriented X3 and CN II-XII intact Skin Skin exam: Present warm and dry; Absent cyanosis, diaphoresis or pallor HEART Score HEART Score HEART Score assessment performed?: Yes History (anamnesis): Slightly suspicious ECG: Non-specific disturbance Age: >65 years Risk factors: 3 or more risk factors Troponin: </= normal limit HEART Score: 5 Critical Care Critical Care Time Critical Care Time: Yes (cardiac, respiratory) Attestation: On 02/27/25, the high probability of a clinically significant, sudden or life threatening deterioration of the following system(s) required my full and direct attention, intervention and personal management. The time I documented below is in addition to time spent performing reported procedures but includes the following listed in this critical care notation. Total Time Total Critical Care Time: 45 Medical Decision Making Medical Records Medical records reviewed: Yes I reviewed the patient's medical records. Valentin Inquiry Pt receiving controlled substance: No Valentin was queried for this patient: No Vital Signs Vital Signs: 02/27/25 20:00 02/27/25 20:00 02/27/25 20:06 Temperature 98.7 F Temperature Source Temporal Artery Scan Pulse Rate Pulse Rate [Right] 95 H Respiratory Rate 21 Blood Pressure Blood Pressure [Left Arm] 87/56 L Blood Pressure Mean Blood Pressure Mean [Left Arm] 66 Blood Pressure Source Blood Pressure Source [Left Arm] Automatic Cuff Blood Pressure Position Blood Pressure Position [Left Arm] Sitting 02 Sat by Pulse Oximetry 95 95 Oxygen Delivery Method BiPAP BiPAP Fraction of Inspired Oxygen 50 50 02/27/25 20:15 02/27/25 20:20 02/27/25 20:20 Temperature Temperature Source Pulse Rate 90 86 Pulse Rate [Right] Respiratory Rate Blood Pressure 101/68 L Blood Pressure [Left Arm] Blood Pressure Mean Blood Pressure Mean [Left Arm] Blood Pressure Source Manual Cuff/ Auscultation Blood Pressure Source [Left Arm] Blood Pressure Position Sitting Blood Pressure Position [Left Arm] 02 Sat by Pulse Oximetry Oxygen Delivery Method Fraction of Inspired Oxygen 02/27/25 21:24 02/27/25 21:25 02/27/25 21:30 Temperature Temperature Source Pulse Rate 81 84 Pulse Rate [Right] Respiratory Rate 13 14 Blood Pressure 102/60 L 108/58 L Blood Pressure [Left Arm] Blood Pressure Mean Blood Pressure Mean [Left Arm] Blood Pressure Source Blood Pressure Source [Left Arm] Blood Pressure Position Blood Pressure Position [Left Arm] 02 Sat by Pulse Oximetry 100 99 Oxygen Delivery Method Fraction of Inspired Oxygen 50 02/27/25 22:00 02/27/25 22:30 Temperature Temperature Source Pulse Rate 82 81 Pulse Rate [Right] Respiratory Rate 15 19 Blood Pressure 96/55 L 94/52 L Blood Pressure [Left Arm] Blood Pressure Mean 69 Blood Pressure Mean [Left Arm] Blood Pressure Source Blood Pressure Source [Left Arm] Blood Pressure Position Blood Pressure Position [Left Arm] 02 Sat by Pulse Oximetry 97 98 Oxygen Delivery Method Fraction of Inspired Oxygen Lab Data Labs: Lab Results 02/27/25 19:45: WBC 11.0 H, RBC 4.08 L, Hgb 11.9 L, Hct 37.3 L, MCV 91.4, MCH 29.2, MCHC 31.9, RDW 13.4, Plt Count 277, MPV 9.9, Neut % (Auto) 70.8, Lymph % (Auto) 14.0, [place] % (Auto) 10.4 H, Eos % (Auto) 3.3, Baso % (Auto) 0.8, Neut # (Auto) 7.8, Lymph # (Auto) 1.5, [place] # (Auto) 1.1 H, Eos # (Auto) 0.4, Baso # (Auto) 0.1, PT 12.4, INR 1.13 H, APTT 28.9, VBG pH 7.33, VBG pCO2 67.5 H, VBG pO2 52.9 H, VBG HCO3 34.9 H, VBG Total CO2 37.0 H, VBG O2 Saturation 85.3 H, VBG Base Excess 9.0 H, VBG Lactic Acid 2.2 H, Sodium 128 L, Potassium 4.8, Chloride 83 L, Carbon Dioxide 38 H, Anion Gap 11.8, BUN 19, Creatinine 1.40 H, Estimated Creat Clear 43, Estimated GFR 50 L, Est GFR ( Amer) 61, Glucose 279 H, Hemoglobin A1c 9.1 H, Lactate 1.5, Calcium 9.0, Magnesium 2.2, Total Bilirubin 1.2, AST 30, ALT 12, Alkaline Phosphatase 233 H, Troponin I < 0.01, NT-Pro-B Natriuret Pep 5520 H, Total Protein 7.8, Albumin 3.3 L, Globulin 4.5 H, Albumin/Globulin Ratio 0.7 L 02/27/25 21:45: Urine Color Yellow, Urine Appearance Clear, Urine pH 7.0, Ur Specific [place] 1.010, Urine Protein 1+ A, Urine Glucose (UA) Trace, Urine Ketones Negative, Urine Blood 3+ A, Urine Nitrate Negative, Urine Bilirubin Negative, Urine Urobilinogen 2.0, Ur Leukocyte Esterase Negative, Urine RBC Tntc, Urine WBC 3-5, Ur Squamous Epith Cells 3-5, Urine Bacteria 2+, Urine Mucus 3+, Urine Opiates Screen Negative, Urine Methadone Screen Negative, Ur Barbituates Screen Negative, Ur Phencyclidine Scrn Negative, Ur Amphetamines Screen Negative, U Benzodiazepines Scrn Negative, Urine Cocaine Screen Negative, U Marijuana (THC) Screen Negative 02/27/25 19:45 02/27/25 19:45 Response Orders (Tests/Meds): ED MEDICATIONS Generic Name Dose Route Start Last Admin Trade Name Freq PRN Reason Stop Dose Admin Acetaminophen 650 mg 02/27/25 22:36 Acetaminophen 325mg Tab PO 03/29/25 22:35 Q4HP PRN Fever or Mild Pain (1-3) Al Hydrox/Mg Hydrox/Simethicone 30 ml 02/27/25 22:36 Aluminum/Magnesium/Simethicone 30ml Udc PO 03/29/25 22:35 QIDP PRN Dyspepsia Heparin Sodium (Porcine) 5,000 unit 02/28/25 09:00 Heparin Sodium 5,000 Unit/Ml Vial SUBCUT 03/30/25 08:59 BID [facility] Insulin Human Lispro 0 unit 02/28/25 06:00 Humalog 100 Units/Ml 10ml Vial (Ssi) SUBCUT 03/30/25 05:59 ACHS [facility] Protocol Ondansetron HCl 4 mg 02/27/25 22:36 Ondansetron 4mg/2ml Vial IV 03/29/25 22:35 Q8HP PRN Nausea Sodium Chloride 10 ml 02/27/25 21:08 02/27/25 21:12 Sodium Chloride 0.9% 10ml Syr (Rad Only) IV 03/29/25 21:07 10 ml NEEDED PRN Administration Maintain IV Site Discontinued Medications Generic Name Dose Route Start Last Admin Trade Name Freq PRN Reason Stop Dose Admin Albuterol/Ipratropium 9 ml 02/27/25 20:02 02/27/25 20:19 Ipratropium/Albuterol 3 Ml Neb IH 02/27/25 20:03 9 ml ONCE ONE Administration Furosemide 80 mg 02/27/25 20:52 02/27/25 22:18 Furosemide 40mg/4ml Vial IV 02/27/25 20:53 80 mg ONCE ONE Administration Lactated Ringer's 1,000 mls @ 999 mls/hr 02/27/25 20:02 02/27/25 20:27 Lactated Ringer's 1000 Ml Bag IV 02/27/25 21:02 999 mls/hr .Q1H1M ONE Administration Ceftriaxone Sodium 2 gm/ 100 mls @ 200 mls/hr 02/27/25 22:04 02/27/25 22:12 Sodium Chloride IV 02/27/25 22:33 200 mls/hr ONCE ONE Administration Iopamidol 160 ml 02/27/25 21:08 02/27/25 21:12 Iopamidol-370 (76%);100ml Bottle IV 02/27/25 21:09 160 ml ONCE ONE Administration Lidocaine HCl 1 ml 02/27/25 21:25 02/27/25 21:27 Lidocaine 2% Urojet 10ml TP 02/27/25 21:26 1 ml ONCE ONE Administration Methylprednisolone Sodium Succinate 125 mg 02/27/25 20:02 02/27/25 20:28 Methylprednisolone Sod Succ 125mg Vial IV 02/27/25 20:03 125 mg ONCE ONE Administration Sodium Chloride 80 ml 02/27/25 21:08 02/27/25 21:12 0.9 % Sodium Chloride 50 Ml Vial IV 02/27/25 21:09 80 ml ONCE ONE Administration ORDERS Category Date Time Status CT angio abdomen pelvis Stat Cat Scan 02/27/25 20:[address] angio head Stat Cat Scan 02/27/25 20:[address] angio neck Stat Cat Scan 02/27/25 20:[address] head/brain wo con Stat Cat Scan 02/27/25 20:03 Completed CTA Chest [CT angio chest - dissection] Stat Cat Scan 02/27/25 20:02 Completed CXR --portable [XR chest portable] Stat Exams 02/27/25 20:14 Completed Basic Metabolic Panel AMLAB Lab 02/28/25 06:00 Ordered Complete Blood Count Auto Diff AMLAB Lab 02/28/25 06:00 Ordered Complete Blood Count Auto Diff Stat Lab 02/27/25 19:45 Completed Comprehensive Metabolic Panel Stat Lab 02/27/25 19:45 Completed Drug Screen,Urine Stat Lab 02/27/25 21:45 Completed Hemoglobin A1C Stat Lab 02/27/25 19:45 Completed Lactic Acid Stat Lab 02/27/25 19:45 Completed Magnesium Stat Lab 02/27/25 19:45 Completed Mini Respiratory Panel Stat Lab 02/27/25 22:00 Received NT Pro Brain Natriuretic Pep. Stat Lab 02/27/25 19:45 Completed PT INR [Prothrombin Time INR] Stat Lab 02/27/25 19:45 Completed PTT [Activated Partial Thrombo Time] Stat Lab 02/27/25 19:45 Completed Troponin I Q3H Lab 02/27/25 23:15 Ordered Troponin I Q3H Lab 02/28/25 02:15 Ordered Troponin I Stat Lab 02/27/25 19:45 Completed UA [Urinalysis and Microscopic] Stat Lab 02/27/25 21:45 Completed Blood Culture Stat Micro 02/27/25 21:57 Received Urine Culture Stat Micro 02/27/25 21:45 Received VBG [Venous Blood Gas] Stat RT 02/27/25 19:45 Completed ECG Data Tracing #1: Attestation: I reviewed this ECG and interpreted as documented below: (A-fib with rate of 98 bpm and right bundle branch block morphology. Left fascicular block as well, no obvious acute ischemic change. QRS 153, QTc 439) MDM Narrative Medical Decision Narrative: 69-year-old male presenting with shortness of breath, AMS, concern for stroke. Patient has a history of hypertension, hyperlipidemia, COPD, HIV from previous needlestick currently controlled on antiretrovirals, CHF, COPD, type 2 diabetes, atrial fibrillation on no anticoagulation presenting with altered mental status. Family in the room providing most of history. Went to check on patient today, oxygen was low, try to get his oxygen up, however sat low and needed to turnaround engineer from 2-3 baseline liters to 5 or 6. Patient acting altered all day. Also has been in house since about 85 degrees 1 and is currently about 100 degrees outside as AC went out. Unsure if this contributes. Last known totally normal was yesterday, 6 in the PM. No focal neurologic deficits, just lethargy and general confusion. On arrival with EMS, patient mentating appropriately, following commands, symmetrically strong. EMS states the patient was 72% on room air when they got to him and tried multiple airway interventions. Patient came in on CPAP. History was obtained via conversation with patient, EMS, family. On arrival, patient hemodynamically stable, alert, oriented x4, appropriate, GCS 15, moving all extremities spontaneously, pupils equal and reactive to light. Full physical exam performed and significant for Ysabel ill, obese male in respiratory distress. Speaking in partial sentences, lungs are quiet bilaterally with end expiratory wheezes, no focal breath sounds. Abdomen is soft, mildly tender where he has hematomas from previous Lovenox, but otherwise normal. No lower extremity edema. He does have what appear to be improved wounds on his feet from previous infections currently on amoxicillin and azithromycin. Differential includes sepsis, COPD exacerbation, bronchitis, pneumonia, hypoxemia, hypercapnic respiratory failure, CHF, ACS, [place], pneumothorax, dissection, CVA, among others. Patient was given BiPAP, DuoNebs, Medrol for symptomatic management and correction of underlying abnormalities. Patient placed on continuous cardiac monitoring and continuous pulse ox with initial blood pressure 87/56, heart rate 95, saturation 95% on BiPAP. Manual blood pressure 101/68. Independent interpretation of EKG shows EKG A-fib with right bundle branch block per interpretation above. Workup independently interpreted and significant for leukocytosis with monocyte elevation. Patient's coags nonactionable. VBG with compensated chronic respiratory acidosis with pH 7.33/CO2 67/bicarb 35 and lactate mildly elevated 2.2. Patient does have acute on chronic hyponatremia with sodium today 128 creatinine is 1.4. Patient's BNP elevated at 5500 and alkaline phosphatase elevated at 233 likely from cardiac congestion. On independent interpretation of imaging, patient has bilateral pleural effusions and cardiomegaly. No acute stroke, no intracranial hemorrhage. See radiology read for full review of final results. Heart score 5. Patient was initially given fluids due to hypotension, but blood pressure continued to worsen. I feel patient would likely benefit from diuresis and his cardiac status likely secondary to Starling curve. I anticipate diuresis will improve cardiac contractility. On reevaluation, patient given diuretics and ceftriaxone. Hospital medicine was contacted and case was discussed at length for admission for acute hypoxemic respiratory failure in the setting of CHF exacerbation and pneumonia. Because patient high risk for clinical decompensation, deemed appropriate for inpatient admission. Results were relayed to patient family who voiced understanding and patient was agreeable to inpatient admission and management. Patient was admitted to the hospital for further definitive management. Clinical Auditor disclaimer Much of this encounter note is an electronic transformer assembler spoken language to printed text. Electronic transformer assembler of the spoken language may permit errors. Although I have reviewed the note, some errors may still exist.
[2025-02-27 20:10] LABS: Lactate Venous 2.2 mmol/L (0.4-2.0); VBG HCO3 34.9 mmol/L (23-30); VBG PCO2 67.5 mmol/L (35-51); VBG PH 7.33 mmol/L (7.31-7.41); VBG PO2 52.9 mmol/L (28-40)
[2025-02-27 20:14] LABS: Hematocrit 37.3 % (42.0-52.0); Hemoglobin 11.9 g/dL (14.1-18.0); Immature Granulocytes % 0.7 %; Mean Corpuscular HGB Conc 31.9 g/dL (31.8-35.4); Mean Corpuscular Hemoglobin 29.2 pg (27.0-31.2); Mean Corpuscular Volume 91.4 fl (80-94); Nucleated Red Blood Cells % 0 %; Platelet Count 277 K/mm3 (142-424); Red Blood Count 4.08 M/mm3 (4.60-6.20); Red Cell Distribution Width-SD 45.2 fL; White Blood Count 11.0 K/mm3 (4.8-10.8)
--- NOTE | 2025-02-27 20:14 | XR_ITS ---
PROCEDURE INFORMATION: Exam: XR Chest Exam date and time: 02/27/2025 9:19 PM Age: 69 years old Clinical indication: Shortness of breath; Additional info: SOA, hypoxemia TECHNIQUE: Imaging protocol: Radiologic exam of the chest. Views: 1 view. COMPARISON: CT ANGIO CHEST 02/27/2025 9:17 PM FINDINGS: Lungs: Low lung volumes. Mild bibasilar atelectasis. Pleural spaces: No pleural effusion. No pneumothorax. Heart/Mediastinum: Cardiomegaly. Bones/joints: Posterior thoracic fusion hardware. IMPRESSION: No acute findings.
[2025-02-27 20:19] LABS: Alanine Aminotransferase 12 U/L (12-78); Albumin Level 3.3 g/dl (3.5-5.0); Albumin/Globulin Ratio 0.7 (1.1-1.8); Alkaline Phosphatase 233 U/L (38-126); Aspartate Amino Transferase 30 U/L (17-59); Bilirubin,Total 1.2 mg/dl (0.2-1.3); Blood Urea Nitrogen 19 mg/dl (9-20); Calcium 9.0 mg/dl (8.4-10.2); Chloride 83 mmol/L (98-107); Creatinine Clearance Estimated 43 mL/min (50-200); Creatinine,Serum 1.40 mg/dl (0.66-1.25); Estimated Glomerular Filt Rate 50 ml/min (>60); GFR (African American) 61 ML/MIN (>60); Globulin 4.5 g/dL (1.3-3.2); Glucose 279 mg/dl (74-100); Potassium 4.8 mmoL/L (3.5-5.1); Sodium 128 mmol/L (136-145); Total Protein,Serum 7.8 g/dl (6.3-8.2)
[2025-02-27] MEDS: IPRATROPIUM/ALBUTEROL 3 ML NEB 9 ML IH (20:19)
[2025-02-27 20:20] LABS: Magnesium 2.2 mg/dl (1.6-2.3)
[2025-02-27 20:21] LABS: Activated Partial Thrombo Time 28.9 seconds (22.8-30.6)
[2025-02-27 20:23] LABS: INR 1.13 (0.9-1.1); Prothrombin Time 12.4 seconds (10.1-12.5)
[2025-02-27 20:26] LABS: Anion Gap 11.8 mEq/L (5-15); Carbon Dioxide 38 mmol/L (22.0-30.0)
[2025-02-27] MEDS: LACTATED RINGERS 1000ML 1,000 ML 999 ML IV (20:27)
[2025-02-27 20:28] LABS: NT Pro Brain Natriuretic Pep. 5520 pg/mL (0-125)
[2025-02-27] MEDS: METHYLPREDNISOLONE SOD SUCC 125MG VIAL 125 MG IV (20:28)
[2025-02-27 20:32] LABS: Troponin I < 0.01 ng/ml (0.00-0.034)
[2025-02-27 20:35] LABS: Hemoglobin A1C 9.1 % (4.0-6.0)
[2025-02-27] MEDS: SODIUM CHLORIDE 0.9% 10ML SYR (RAD ONLY) 10 ML IV (21:12)
[2025-02-27] MEDS: IOPAMIDOL-370 (76%);100ML BOTTLE 160 ML IV (21:12)
[2025-02-27] MEDS: 0.9 % SODIUM CHLORIDE 50 ML VIAL 80 ML IV (21:12)
[2025-02-27] MEDS: LIDOCAINE 2% UROJET 10ML TP (21:27)
--- NOTE | 2025-02-27 21:28 | PC.NURSE ---
Cassandra was scanned for pt, but when BP was taken it was 102/60 it was decided to be given
[2025-02-27 21:48] LABS: Microscopic, Urine URINE MICROSCOPIC (MICROSCOPIC)
[2025-02-27 21:49] LABS: Bilirubin,Urine Negative (Negative); Color,Urine YELLOW (Yellow); Glucose,Urine (UA) TRACE (Negative); Ketones,Urine Negative (Negative); Leukocyte Esterase,Urine Negative (Negative); PH,Urine 7.0 (5.0-8.5); Protein,Urine 1+ (Negative); Specific Gravity, Urine 1.010 (1.005-1.030); Urobilinogen,Urine 2.0 EU/dl (0.2)
[2025-02-27 22:02] LABS: Barbiturates Screen,Urine Negative ng/ml (<200)
[2025-02-27 22:03] LABS: Amphetamine/Metha Screen,Urine Negative ng/ml (<1000); Benzodiazepines Screen,Urine Negative ng/ml (<200)
[2025-02-27 22:05] LABS: Methadone Screen,Urine Negative ng/ml (<300)
[2025-02-27 22:06] LABS: Opiate Screen,Urine Negative ng/ml (<300)
[2025-02-27 22:07] LABS: Phencyclidine Screen,Urine Negative ng/ml (<25)
[2025-02-27 22:08] LABS: RBC,Urine TNTC #/hpf (0-3)
[2025-02-27 22:08] LABS: Coronavirus 19, PCR Not Detected (NotDetected); Influenza A, PCR Not Detected (NotDetected); Influenza B, PCR Not Detected (NotDetected)
[2025-02-27 22:09] LABS: Bacteria,Urine 2+ /lpf; Mucus,Urine 3+ /lpf
[2025-02-27] MEDS: FUROSEMIDE 40MG/4ML VIAL 80 MG IV (22:18)
[2025-02-27 23:16] LABS: Troponin I 0.03 ng/ml (0.00-0.034)
[2025-02-28] VITALS (13 sets, daily range): BP systolic 102–137; BP diastolic 47–85; PULSE 61–120; RESP 6–22; TEMP 36.3–36.9; O2SAT 91–97; BMI 39.9; BMI 40.1
[2025-02-28 00:09] LABS: Reflex Lactic Add Lactic Reflex
--- NOTE | 2025-02-28 01:00 | P.HP_ITS ---
<Statement entered by Negrito Patricio MD - 02/28/25 18:29> Rounded on patient after nurse practitioner. Personally examined and interviewed patient. Agree with exam findings and care plan as documented. History of Present Illness *Admission Date: 02/27/25 *Reason for visit:: Altered mental status *History of present illness: Mr. Love is a 69-year-old male presents the ER for evaluation of altered mental status. Patient has past medical history of hypertension, hyperlipidemia, COPD, HIV, CHF, COPD, type 2 diabetes, and atrial fibrillation. Unable to obtain history from patient as he is currently resting on BiPAP. History obtained from ER physician. States that family said patient was less responsive today when they went to check on patient. Patient's oxygen was low. EMS was called. EMS reported that oxygen was in the 70s. Patient does not use supplemental oxygen at home. ER provider states patient is currently on CPAP satting in high 90s. Reports he was initially treated with IV fluids but made hypotension worse. Was given Lasix IV. [facility] Disclaimer: The information contained in this section may have been updated after the patient was seen, as this information can be updated by other users. Medical History Encounter for monitoring digoxin therapy Diabetic toe ulcer Left second toe. Atrial flutter Acute on chronic heart failure with preserved ejection fraction (HFpEF) HLD (hyperlipidemia) GERD (gastroesophageal reflux disease) CAD (coronary artery disease) CHF (congestive heart failure) Pneumonia Pleural effusion, bilateral Acute respiratory failure with hypoxia and hypercarbia Hypertension Chronic venous stasis dermatitis of both lower extremities HIV (human immunodeficiency virus infection) Diabetes mellitus, type 2 Closed fracture of neck of left humerus GI bleed due to NSAIDs Morbid obesity with BMI of 45.0-49.9, adult Family History Other No significant family history Social History Smoking Status: Never smoker second hand exposure: No alcohol intake: never substance use type: denies use current occupational status: retired Travel in the last 8 weeks?: None household members: spouse and family housing: house current occupational exposures/hazards: No caffeine: Yes Have you lived/traveled outside [place] in past 30 days?: No Contact w/someone who lives/traveled outside [place] past 30 days?: No Exposure to someone with infectious disease in past 14 days?: No Do you have a fever (greater than 100.4 F or 38 C)?: No Have you tested positive for COVID-19?: No Exposed to someone with COVID-19 in past 14 days?: No Do you have a sore throat?: No Do you have a cough?: No Do you have any weakness?: No Do you have any diarrhea?: No Are you experiencing any unusual bleeding?: No Do you have any muscle aches/pain?: No Do you have any abdominal pain?: No Are you experiencing loss of taste or smell?: No Other Medical History Have you received the Flu Vaccine for this season: Yes Have you received the Pneumonia Vaccine: Yes Review of Systems Review of Systems Review of systems:: unable to obtain Meds Home Medications and Allergies Home Medications ?Medication ?Instructions ?Recorded ?Confirmed ?Type finasteride 5 mg tablet 5 mg PO DAILY 11/13/1802/28 History tamsulosin 0.4 mg capsule 0.4 mg PO HS 01/06/20 History methocarbamol 750 mg tablet 750 mg PO Q6HP PRN Muscle Spasm 11/26/20 02/28/25 History cholecalciferol (vitamin D3) 25 25 mcg PO DAILY 02/28/25 History mcg (1,000 unit) capsule venlafaxine 150 mg 150 mg PO DAILY 09/16/23 History capsule,extended release 24 hr (Effexor XR) tramadol 50 mg tablet 50 mg PO 0900,1700 08/19/24 02/28/25 History albuterol sulfate 90 mcg/actuation 1 inh inhalation QI DP PRN 08/20/24 02/28/25 History aerosol inhaler Shortness Of Breath sitagliptin 100 mg tablet 100 mg PO DAILY 08/20/24 History pantoprazole 40 mg tablet,delayed 40 mg PO DAILY 30 da ys #0 tabs 08/23/24 02/28/25 Rx release digoxin 125 mcg (0.125 mg) tablet 125 mcg PO DAILY #90 tabs 09/16/24 11/12/24 Rx aspirin 81 mg capsule 81 mg PO DAILY 11/04/2402/02 History bictegravir 50 mg-emtricitabine 1 tab PO DAILY 5 02/28/25 History 200 mg-tenofovir alafenam 25 mg tablet (Biktarvy) gabapentin 300 mg capsule 600 mg PO 1700 11/04/2402/02 History gabapentin 300 mg capsule 900 mg PO 0900,2100 11/04/24 02/28/25 History lidocaine 5 % topical patch 2 patch topical DAILY 12/2611/12/24 History metoprolol tartrate 100 mg tablet 50 mg PO BID 5 02/28/25 History tiotropium 2.5 mcg-olodaterol 2.5 2 puff inhalation DA KASHIF 11/04/24 02/28/25 History mcg/actuation mist for inhalation (Stiolto Respimat) tramadol 50 mg tablet 75 mg PO HS 11/04/24 5 History bumetanide 2 mg tablet 2 mg PO BIDL 30 days #60 tab s 11/05/24 11/12/24 Rx omega-3 fatty acids 1,200 mg PO DAILY 02/28/25 0 02/28/25 History New Prescriptions to Start Prescriptions: Allergies Allergy/AdvReac Type Severity Reaction Status Date / Time SANDRA Inhibitors Allergy Unknown Unknown Verified 02/27/25 20:15 allergy reaction clofibrate Allergy Unknown Unknown Verified 02/27/25 20:15 allergy reaction enalapril Allergy Unknown Unknown Verified 02/27/25 20:15 allergy reaction erythromycin base Allergy Unknown Unknown Verified 02/27/25 20:15 allergy reaction gemfibrozil Allergy Unknown Unknown Verified 02/27/25 20:15 allergy reaction hepatitis A virus vaccine Allergy Unknown Unknown Verified 02/27/25 20:15 allergy reaction hydralazine Allergy Unknown Unknown Verified 02/27/25 20:15 allergy reaction Macrolide Antibiotics Allergy Unknown Unknown Verified 02/27/25 20:15 allergy reaction pravastatin (From Pravachol) Allergy Unknown Unknown Verified 02/27/25 20:15 allergy reaction Gfymjnf-YMD-AlC Reductase Allergy Unknown Unknown Verified 02/27/25 20:15 Inhibitor (Goyyoej-Ezt-Vij allergy Reductase Inhibitor) reaction Exam Data for Last 24 hours Vital signs and Labs for Last 24 Hours: Temp Pulse Resp BP Pulse Ox O2 Del Method FiO2 98.4 F 83 20 103/56 L 97 BiPAP 50 02/27/25 23:44 02/27/25 23:44 02/27/25 23:44 02/27/25 23:44 02/27/25 23:00 02/27/25 23:44 02/27/25 21:25 Laboratory Results - last 24 hr 02/27/25 19:45: WBC 11.0 H, RBC 4.08 L, Hgb 11.9 L, Hct 37.3 L, MCV 91.4, MCH 29.2, MCHC 31.9, RDW 13.4, Plt Count 277, MPV 9.9, Neut % (Auto) 70.8, Lymph % (Auto) 14.0, [place] % (Auto) 10.4 H, Eos % (Auto) 3.3, Baso % (Auto) 0.8, Neut # (Auto) 7.8, Lymph # (Auto) 1.5, [place] # (Auto) 1.1 H, Eos # (Auto) 0.4, Baso # (Auto) 0.1, PT 12.4, INR 1.13 H, APTT 28.9, VBG pH 7.33, VBG pCO2 67.5 H, VBG pO2 52.9 H, VBG HCO3 34.9 H, VBG Total CO2 37.0 H, VBG O2 Saturation 85.3 H, VBG Base Excess 9.0 H, VBG Lactic Acid 2.2 H, Sodium 128 L, Potassium 4.8, Chloride 83 L, Carbon Dioxide 38 H, Anion Gap 11.8, BUN 19, Creatinine 1.40 H, Estimated Creat Clear 43, Estimated GFR 50 L, Est GFR ( Amer) 61, Glucose 279 H, Hemoglobin A1c 9.1 H, Lactate 1.5, Calcium 9.0, Magnesium 2.2, Total Bilirubin 1.2, AST 30, ALT 12, Alkaline Phosphatase 233 H, Troponin I < 0.01, NT-Pro-B Natriuret Pep 5520 H, Total Protein 7.8, Albumin 3.3 L, Globulin 4.5 H, Albumin/Globulin Ratio 0.7 L 02/27/25 21:45: Urine Color Yellow, Urine Appearance Clear, Urine pH 7.0, Ur Specific [place] 1.010, Urine Protein 1+ A, Urine Glucose (UA) Trace, Urine Ketones Negative, Urine Blood 3+ A, Urine Nitrate Negative, Urine Bilirubin Negative, Urine Urobilinogen 2.0, Ur Leukocyte Esterase Negative, Urine RBC Tntc, Urine WBC 3-5, Ur Squamous Epith Cells 3-5, Urine Bacteria 2+, Urine Mucus 3+, Urine Opiates Screen Negative, Urine Methadone Screen Negative, Ur Barbituates Screen Negative, Ur Phencyclidine Scrn Negative, Ur Amphetamines Screen Negative, U Benzodiazepines Scrn Negative, Urine Cocaine Screen Negative, U Marijuana (THC) Screen Negative 02/27/25 22:00: SARS-CoV-2 (PCR) Not detected, Influenza Type A (PCR) Not detected, Influenza Type B (PCR) Not detected, RSV (PCR) Not detected, Rhinovirus (PCR) Not detected 02/27/25 22:47: Troponin I 0.03 I & O for Last 24 hours: Intake & Output 02/25/25 02/26/25 02/27/25 02/28/25 23:59 23:59 23:59 23:59 Weight 117.934 kg *Routine HEENT Exam Head: Present normocephalic and atraumatic Eye: Present PERRL ENT: Present other (unable to assess pt is on bipap) *Routine Neck Exam Neck: Present supple *Routine Respiratory Exam Respiratory: Present diminished air movement; Absent accessory muscle use, respiratory distress or symmetric chest movement *Routine Cardiovascular Exam Cardiovascular: Present RRR, Normal S1 and Normal S2 *Routine Abdominal Exam Abdominal: Present soft, normoactive bowel sounds and obese; Absent tenderness *Routine Rectal Exam Rectal:: deferred *Routine Genitalia Exam Genitalia:: deferred *Routine Extremities Exam Extremities: Present pulses intact and normal capillary refill; Absent edema *Routine Skin Exam Skin: Present warm; Absent intact Comments: Scabbed over wounds noted to bilateral lower extremities and left foot *Routine Neurological Exam Neurological: Absent alert Comments: Difficult to arouse Assessment and Plan *Assessment and plan (1) CHF exacerbation: Status: Acute Category: Medical Code(s): I50.9 - Heart failure, unspecified Plan: Continue BiPAP to maintain SpO2 88 to 92% Lasix 40 mg IV twice daily Daily weights Strict I's and O's BNP 5520 Last Echo 11-04-24: This is a limited TTE to evaluate for LV systolic function. Limited windows are obtained.The left ventricle is normal in size. There is increased LV wall thickness. There is normal global LV systolic function. LVEF is 55%.The right ventricle is mildly to moderately dilated. There is mild hypokinesis of the right ventricular systolic function. (2) Acute hypoxemic respiratory failure: Status: Acute Category: Medical Code(s): J96.01 - Acute respiratory failure with hypoxia Plan: Continue supplemental oxygen to maintain SpO2 88 to 92% Diuresis and IV abx (3) Hypotension: Status: Acute Category: Medical Code(s): I95.9 - Hypotension, unspecified Plan: Vital signs hourly Careful diuresis (4) Pleural effusion: Status: Acute Category: Medical Code(s): J90 - Pleural effusion, not elsewhere classified Plan: CT concerning for loculated effusions Consider pulmonary consult Continue Merrem (5) Abdominal wall abscess: Status: Acute Category: Medical Code(s): L02.211 - Cutaneous abscess of abdominal wall Plan: Merrem 1 g every 8 hours Consider general surgery consult (6) Pneumonia: Status: Resolved Category: Medical Code(s): J18.9 - Pneumonia, unspecified organism Plan: IV antibiotics (7) FRANNIE (acute kidney injury): Status: Acute Category: Medical Code(s): N17.9 - Acute kidney failure, unspecified Plan: Monitor BMP Avoid nephrotoxic agents (8) Hyponatremia: Status: Acute Category: Medical Code(s): E87.1 - Hypo-osmolality and hyponatremia Plan: Monitor BMP Corrected sodium 131 (9) Type 2 diabetes mellitus with vascular disease: Status: Chronic Category: Medical Code(s): E11.59 - Type 2 diabetes mellitus with other circulatory complications Plan: ADA diet as tolerated Sliding scale insulin (10) HIV disease: Status: Chronic Category: Medical Code(s): B20 - Human immunodeficiency virus [HIV] disease Plan: Continue patient's home dose of Biktarvy 50 ? 200 ? 25 mg 1 tab daily
[2025-02-28 01:18] LABS: Lactic Acid Follow Up (RFLX 1) 0.9 mmol/L (0.7-2.1)
[2025-02-28 02:01] LABS: Troponin I 0.04 ng/ml (0.00-0.034)
[2025-02-28] MEDS: MEROPENEM 1 GM in 0.9 % SODIUM CHLORIDE 100 ML IV ×3 (02:22→17:51)
[2025-02-28] MEDS: humaLOG 100 UNITS/ML 10ML VIAL (SSI) SUBCUT ×4 (06:30→20:31)
[2025-02-28 07:31] LABS: Hematocrit 34.8 % (42.0-52.0); Hemoglobin 11.4 g/dL (14.1-18.0); Immature Granulocytes % 0.8 %; Mean Corpuscular HGB Conc 32.8 g/dL (31.8-35.4); Mean Corpuscular Hemoglobin 29.7 pg (27.0-31.2); Mean Corpuscular Volume 90.6 fl (80-94); Nucleated Red Blood Cells % 0 %; Platelet Count 198 K/mm3 (142-424); Red Blood Count 3.84 M/mm3 (4.60-6.20); Red Cell Distribution Width-SD 43.2 fL; White Blood Count 6.4 K/mm3 (4.8-10.8)
[2025-02-28 07:39] LABS: POC Glucose,Bedside 334 (70-110)
[2025-02-28 07:41] LABS: Chloride 83 mmol/L (98-107); Potassium 5.0 mmoL/L (3.5-5.1); Sodium 129 mmol/L (136-145)
[2025-02-28 07:44] LABS: Blood Urea Nitrogen 23 mg/dl (9-20); Calcium 8.3 mg/dl (8.4-10.2); Creatinine Clearance Estimated 41 mL/min (50-200); Creatinine,Serum 1.40 mg/dl (0.66-1.25); Estimated Glomerular Filt Rate 50 ml/min (>60); GFR (African American) 61 ML/MIN (>60); Glucose 324 mg/dl (74-100)
[2025-02-28 07:51] LABS: Anion Gap 13.0 mEq/L (5-15); Carbon Dioxide 38 mmol/L (22.0-30.0)
[2025-02-28 09:11] LABS: VBG HCO3 35.2 mmol/L (23-30); VBG PCO2 59.1 mmol/L (35-51); VBG PH 7.39 mmol/L (7.31-7.41); VBG PO2 100.6 mmol/L (28-40)
[2025-02-28 09:12] LABS: Lactate Venous 2.1 mmol/L (0.4-2.0)
[2025-02-28] MEDS: FUROSEMIDE 40MG/4ML VIAL 40 MG IV ×2 (09:14→16:04)
[2025-02-28] MEDS: ASPIRIN EC 81MG TABLET 81 MG PO (09:14)
[2025-02-28] MEDS: HEPARIN SODIUM 5,000 UNIT/ML VIAL 5000 UNIT SUBCUT ×2 (09:15→20:30)
[2025-02-28] MEDS: BIKTARVY 1 EACH PO (09:20)
[2025-02-28 09:21] LABS: RBC Morphology Normal; Total Cells Counted 100
[2025-02-28] MEDS: FINASTERIDE 5 MG 1 EACH PO (09:21)
[2025-02-28] MEDS: VENLAFAXINE 150 MG 1 EACH PO (09:21)
--- NOTE | 2025-02-28 11:15 | EXP.SURG.CON ---
History of Present Illness *Admission Date: 02/27/25 *History of present illness: from Admission H&P HPI: Mr. Love is a 69-year-old male presents the ER for evaluation of altered mental status. Patient has past medical history of hypertension, hyperlipidemia, COPD, HIV, CHF, COPD, type 2 diabetes, and atrial fibrillation. Unable to obtain history from patient as he is currently resting on BiPAP. History obtained from ER physician. States that family said patient was less responsive today when they went to check on patient. Patient's oxygen was low. EMS was called. EMS reported that oxygen was in the 70s. Patient does not use supplemental oxygen at home. ER provider states patient is currently on CPAP satting in high 90s. Reports he was initially treated with IV fluids but made hypotension worse. Was given Lasix IV. Mr. Love is a 69-year-old male with medical history significant for HIV, COPD, hypertension, hyperlipidemia, CHF, type 2 diabetes, and atrial fibrillation who was admitted with altered mental status. He arrived via EMS, and was found to be hypoxic. History is obtained from patient, and his daughter. She reports that he has received Lovenox shots in his lower abdomen/pannus, and that he has had 2 hard knots from previous injections. These have been followed over several months with physical exam and ultrasound. As part of his mental status change workup, he had a CT scan, which revealed fluid collection of indeterminate identity under these palpable areas. [facility] Disclaimer: The information contained in this section may have been updated after the patient was seen, as this information can be updated by other users. Medical History Encounter for monitoring digoxin therapy Diabetic toe ulcer Atrial flutter Acute on chronic heart failure with preserved ejection fraction (HFpEF) HLD (hyperlipidemia) GERD (gastroesophageal reflux disease) CAD (coronary artery disease) CHF (congestive heart failure) Pneumonia Pleural effusion, bilateral Acute respiratory failure with hypoxia and hypercarbia Hypertension Chronic venous stasis dermatitis of both lower extremities HIV (human immunodeficiency virus infection) Diabetes mellitus, type 2 Closed fracture of neck of left humerus GI bleed due to NSAIDs Morbid obesity with BMI of 45.0-49.9, adult Family History Other No significant family history Social History Smoking Status: Never smoker second hand exposure: No alcohol intake: never substance use type: denies use current occupational status: retired Travel in the last 8 weeks?: None household members: spouse and family housing: house current occupational exposures/hazards: No caffeine: Yes Have you lived/traveled outside [place] in past 30 days?: No Contact w/someone who lives/traveled outside US past 30 days?: No Exposure to someone with infectious disease in past 14 days?: No Do you have a fever (greater than 100.4 F or 38 C)?: No Have you tested positive for COVID-19?: No Exposed to someone with COVID-19 in past 14 days?: No Do you have a sore throat?: No Do you have a cough?: No Do you have any weakness?: No Do you have any diarrhea?: No Are you experiencing any unusual bleeding?: No Do you have any muscle aches/pain?: No Do you have any abdominal pain?: No Are you experiencing loss of taste or smell?: No Review of Systems Review of Systems Review of systems:: pertinent systems reviewed and negative unless documented below Integumentary/Breasts Skin/Breast: Reports lesions, Reports unusual bruising and Reports wounds Meds Home Medications and Allergies Home Medications ?Medication ?Instructions ?Recorded ?Confirmed ?Type finasteride 5 mg tablet 5 mg PO DAILY 11/13/18 02/28/25 History tamsulosin 0.4 mg capsule 0.4 mg PO HS 01/06/20 02/28/25 History methocarbamol 750 mg tablet 750 mg PO Q6HP PRN Muscle Spasm 11/26/20 02/28/25 History cholecalciferol (vitamin D3) 25 25 mcg PO DAILY 12/30/20 02/28/25 History mcg (1,000 unit) capsule venlafaxine 150 mg 150 mg PO DAILY 09/16/23 02/28/25 History capsule,extended release 24 hr (Effexor XR) tramadol 50 mg tablet 50 mg PO 0900,1700 08/19/24 02/28/25 History albuterol sulfate 90 mcg/actuation 1 inh inhalation QIDP PRN 08/20/24 02/28/25 History aerosol inhaler Shortness Of Breath sitagliptin 100 mg tablet 100 mg PO DAILY 08/20/24 02/28/25 History pantoprazole 40 mg tablet,delayed 40 mg PO DAILY 30 days #0 tabs 08/23/24 02/28/25 Rx release digoxin 125 mcg (0.125 mg) tablet 125 mcg PO DAILY #90 tabs 09/16/24 11/12/24 Rx aspirin 81 mg capsule 81 mg PO DAILY 11/04/24 02/28/25 History bictegravir 50 mg-emtricitabine 1 tab PO DAILY 11/04/24 02/28/25 History 200 mg-tenofovir alafenam 25 mg tablet (Biktarvy) gabapentin 300 mg capsule 600 mg PO 1700 11/04/24 02/28/25 History gabapentin 300 mg capsule 900 mg PO 0900,2100 11/04/24 02/28/25 History lidocaine 5 % topical patch 2 patch topical DAILY 11/04/24 11/12/24 History metoprolol tartrate 100 mg tablet 50 mg PO BID 11/04/24 02/28/25 History tiotropium 2.5 mcg-olodaterol 2.5 2 puff inhalation DAILY 11/04/24 02/28/25 History mcg/actuation mist for inhalation (Stiolto Respimat) tramadol 50 mg tablet 75 mg PO HS 11/04/24 02/28/25 History bumetanide 2 mg tablet 2 mg PO BIDL 30 days #60 tabs 11/05/24 11/12/24 Rx Bifidobacterium longum 10 million 10 cell PO DAILY 02/28/25 02/28/25 History cell capsule (Align (B.longum)) omega-3 fatty acids 1,200 mg PO DAILY 02/28/25 02/28/25 History New Prescriptions to Start Prescriptions: Allergies Allergy/AdvReac Type Severity Reaction Status Date / Time SANDRA Inhibitors Allergy Unknown Unknown Verified 02/27/25 20:15 allergy reaction clofibrate Allergy Unknown Unknown Verified 02/27/25 20:15 allergy reaction enalapril Allergy Unknown Unknown Verified 02/27/25 20:15 allergy reaction erythromycin base Allergy Unknown Unknown Verified 02/27/25 20:15 allergy reaction gemfibrozil Allergy Unknown Unknown Verified 02/27/25 20:15 allergy reaction hepatitis A virus vaccine Allergy Unknown Unknown Verified 02/27/25 20:15 allergy reaction hydralazine Allergy Unknown Unknown Verified 02/27/25 20:15 allergy reaction Macrolide Antibiotics Allergy Unknown Unknown Verified 02/27/25 20:15 allergy reaction pravastatin (From Pravachol) Allergy Unknown Unknown Verified 02/27/25 20:15 allergy reaction Kritbmw-TYB-EuN Reductase Allergy Unknown Unknown Verified 02/27/25 20:15 Inhibitor (Lmiebzz-Yyd-Cic allergy Reductase Inhibitor) reaction Exam (Inpt) Vital signs and Labs for Last 24 Hours: Temp Pulse Resp BP Pulse Ox O2 Del Method O2 Flow Rate 98.4 F 84 18 109/63 L 94 L Nasal Cannula 4 02/28/25 08:03 02/28/25 10:00 02/28/25 10:00 02/28/25 10:00 02/28/25 10:00 02/28/25 11:00 02/28/25 11:00 FiO2 40 02/28/25 02:00 Laboratory Results - last 24 hr 02/27/25 19:45: WBC 11.0 H, RBC 4.08 L, Hgb 11.9 L, Hct 37.3 L, MCV 91.4, MCH 29.2, MCHC 31.9, RDW 13.4, Plt Count 277, MPV 9.9, Neut % (Auto) 70.8, Lymph % (Auto) 14.0, [place] % (Auto) 10.4 H, Eos % (Auto) 3.3, Baso % (Auto) 0.8, Neut # (Auto) 7.8, Lymph # (Auto) 1.5, [place] # (Auto) 1.1 H, Eos # (Auto) 0.4, Baso # (Auto) 0.1, PT 12.4, INR 1.13 H, APTT 28.9, VBG pH 7.33, VBG pCO2 67.5 H, VBG pO2 52.9 H, VBG HCO3 34.9 H, VBG Total CO2 37.0 H, VBG O2 Saturation 85.3 H, VBG Base Excess 9.0 H, VBG Lactic Acid 2.2 H, Sodium 128 L, Potassium 4.8, Chloride 83 L, Carbon Dioxide 38 H, Anion Gap 11.8, BUN 19, Creatinine 1.40 H, Estimated Creat Clear 43, Estimated GFR 50 L, Est GFR ( Amer) 61, Glucose 279 H, Hemoglobin A1c 9.1 H, Lactate 1.5, Calcium 9.0, Magnesium 2.2, Total Bilirubin 1.2, AST 30, ALT 12, Alkaline Phosphatase 233 H, Troponin I < 0.01, NT-Pro-B Natriuret Pep 5520 H, Total Protein 7.8, Albumin 3.3 L, Globulin 4.5 H, Albumin/Globulin Ratio 0.7 L 02/27/25 21:45: Urine Color Yellow, Urine Appearance Clear, Urine pH 7.0, Ur Specific [place] 1.010, Urine Protein 1+ A, Urine Glucose (UA) Trace, Urine Ketones Negative, Urine Blood 3+ A, Urine Nitrate Negative, Urine Bilirubin Negative, Urine Urobilinogen 2.0, Ur Leukocyte Esterase Negative, Urine RBC Tntc, Urine WBC 3-5, Ur Squamous Epith Cells 3-5, Urine Bacteria 2+, Urine Mucus 3+, Urine Opiates Screen Negative, Urine Methadone Screen Negative, Ur Barbituates Screen Negative, Ur Phencyclidine Scrn Negative, Ur Amphetamines Screen Negative, U Benzodiazepines Scrn Negative, Urine Cocaine Screen Negative, U Marijuana (THC) Screen Negative 02/27/25 22:00: SARS-CoV-2 (PCR) Not detected, Influenza Type A (PCR) Not detected, Influenza Type B (PCR) Not detected, RSV (PCR) Not detected, Rhinovirus (PCR) Not detected 02/27/25 22:47: Troponin I 0.03 02/28/25 00:58: Lactate 0.9 02/28/25 01:38: Troponin I 0.04 H 02/28/25 06:22: POC Glucose 334 H* 02/28/25 07:17: WBC 6.4 D, RBC 3.84 L, Hgb 11.4 L, Hct 34.8 L, MCV 90.6, MCH 29.7, MCHC 32.8, RDW 13.2, Plt Count 198 D, MPV 9.7, Neut % (Auto) 88.8 H, Lymph % (Auto) 7.8 L, [place] % (Auto) 2.2, Eos % (Auto) 0.2, Baso % (Auto) 0.2, Neut # (Auto) 5.7, Lymph # (Auto) 0.5 L, [place] # (Auto) 0.1, Eos # (Auto) 0.0, Baso # (Auto) 0.0, Total Counted 100, Neutrophils % (Manual) 92 H, Lymphocytes % (Manual) 6 L, Monocytes % (Manual) 2, Platelet Estimate Normal, RBC Morphology Normal, Sodium 129 L, Potassium 5.0, Chloride 83 L, Carbon Dioxide 38 H, Anion Gap 13.0, BUN 23 H, Creatinine 1.40 H, Estimated Creat Clear 41, Estimated GFR 50 L, Est GFR ( Amer) 61, Glucose 324 H, Calcium 8.3 L 02/28/25 07:21: VBG pH 7.39, VBG pCO2 59.1 H, VBG pO2 100.6 H, VBG HCO3 35.2 H, VBG Total CO2 37.0 H, VBG O2 Saturation 98.2 H, VBG Base Excess 10.3 H, VBG Lactic Acid 2.1 H I & O for Labs for Last 24 Hours: Intake & Output 02/25/25 02/26/25 02/27/25 02/28/25 23:59 23:59 23:59 23:59 Intake Total 530 / 530 Output Total 700 / 700 Balance -170 / -170 Weight 260 lb 240 lb 11.916 oz Constitutional: no acute distress and chronically ill appearing Head: Present normocephalic and atraumatic Neck: Present normal inspection and trachea midline; Absent tenderness Respiratory: Present accessory muscle use; Absent respiratory distress GI: Present soft; Absent distention or tenderness Rectal (male): Present deferred (male): Present deferred Comment:: On left side of pannus, there is a tangerine sized knot surrounded by chronic brown skin changes. It is fluctuant. On the right pannus, there is also a lump that is somewhat fluctuant but a little more solid. Neuro: Present alert, awake and oriented x 3 Results Labs 02/28/25 07:17 02/28/25 07:17 Labs: Laboratory Results - last 24 hr 02/27/25 19:45: WBC 11.0 H, RBC 4.08 L, Hgb 11.9 L, Hct 37.3 L, MCV 91.4, MCH 29.2, MCHC 31.9, RDW 13.4, Plt Count 277, MPV 9.9, Neut % (Auto) 70.8, Lymph % (Auto) 14.0, [place] % (Auto) 10.4 H, Eos % (Auto) 3.3, Baso % (Auto) 0.8, Neut # (Auto) 7.8, Lymph # (Auto) 1.5, [place] # (Auto) 1.1 H, Eos # (Auto) 0.4, Baso # (Auto) 0.1, PT 12.4, INR 1.13 H, APTT 28.9, VBG pH 7.33, VBG pCO2 67.5 H, VBG pO2 52.9 H, VBG HCO3 34.9 H, VBG Total CO2 37.0 H, VBG O2 Saturation 85.3 H, VBG Base Excess 9.0 H, VBG Lactic Acid 2.2 H, Sodium 128 L, Potassium 4.8, Chloride 83 L, Carbon Dioxide 38 H, Anion Gap 11.8, BUN 19, Creatinine 1.40 H, Estimated Creat Clear 43, Estimated GFR 50 L, Est GFR ( Amer) 61, Glucose 279 H, Hemoglobin A1c 9.1 H, Lactate 1.5, Calcium 9.0, Magnesium 2.2, Total Bilirubin 1.2, AST 30, ALT 12, Alkaline Phosphatase 233 H, Troponin I < 0.01, NT-Pro-B Natriuret Pep 5520 H, Total Protein 7.8, Albumin 3.3 L, Globulin 4.5 H, Albumin/Globulin Ratio 0.7 L 02/27/25 21:45: Urine Color Yellow, Urine Appearance Clear, Urine pH 7.0, Ur Specific [place] 1.010, Urine Protein 1+ A, Urine Glucose (UA) Trace, Urine Ketones Negative, Urine Blood 3+ A, Urine Nitrate Negative, Urine Bilirubin Negative, Urine Urobilinogen 2.0, Ur Leukocyte Esterase Negative, Urine RBC Tntc, Urine WBC 3-5, Ur Squamous Epith Cells 3-5, Urine Bacteria 2+, Urine Mucus 3+, Urine Opiates Screen Negative, Urine Methadone Screen Negative, Ur Barbituates Screen Negative, Ur Phencyclidine Scrn Negative, Ur Amphetamines Screen Negative, U Benzodiazepines Scrn Negative, Urine Cocaine Screen Negative, U Marijuana (THC) Screen Negative 02/27/25 22:00: SARS-CoV-2 (PCR) Not detected, Influenza Type A (PCR) Not detected, Influenza Type B (PCR) Not detected, RSV (PCR) Not detected, Rhinovirus (PCR) Not detected 02/27/25 22:47: Troponin I 0.03 02/28/25 00:58: Lactate 0.9 02/28/25 01:38: Troponin I 0.04 H 02/28/25 06:22: POC Glucose 334 H* 02/28/25 07:17: WBC 6.4 D, RBC 3.84 L, Hgb 11.4 L, Hct 34.8 L, MCV 90.6, MCH 29.7, MCHC 32.8, RDW 13.2, Plt Count 198 D, MPV 9.7, Neut % (Auto) 88.8 H, Lymph % (Auto) 7.8 L, [place] % (Auto) 2.2, Eos % (Auto) 0.2, Baso % (Auto) 0.2, Neut # (Auto) 5.7, Lymph # (Auto) 0.5 L, [place] # (Auto) 0.1, Eos # (Auto) 0.0, Baso # (Auto) 0.0, Total Counted 100, Neutrophils % (Manual) 92 H, Lymphocytes % (Manual) 6 L, Monocytes % (Manual) 2, Platelet Estimate Normal, RBC Morphology Normal, Sodium 129 L, Potassium 5.0, Chloride 83 L, Carbon Dioxide 38 H, Anion Gap 13.0, BUN 23 H, Creatinine 1.40 H, Estimated Creat Clear 41, Estimated GFR 50 L, Est GFR ( Amer) 61, Glucose 324 H, Calcium 8.3 L 02/28/25 07:21: VBG pH 7.39, VBG pCO2 59.1 H, VBG pO2 100.6 H, VBG HCO3 35.2 H, VBG Total CO2 37.0 H, VBG O2 Saturation 98.2 H, VBG Base Excess 10.3 H, VBG Lactic Acid 2.[address] scan - abdomen: report reviewed and image reviewed Assessment and Plan *Assessment and plan (1) Abdominal wall abscess: Status: Acute Category: Medical Code(s): L02.211 - Cutaneous abscess of abdominal wall Plan 69-year-old male with multiple medical problems, admitted with acute mental status change. Noted to have 2 fluid collections on the abdominal wall during workup for sepsis. These fluid collections are likely chronic, and likely correspond with chronic hematoma from previous Lovenox injection. I discussed the situation with the patient and his daughter, and also with the hospitalist, and all agreed with aspiration to obtain culture. Both areas were prepped with chlorhexidine, and then anesthetized with a total of 10 cc of 1% lidocaine. The fluctuant area on the left was accessed with a 16-gauge needle, and approximately 5 cc of opaque old hematoma were aspirated. This was cultured. The fluctuant area on the right, which had no surrounding chronic skin changes, was also accessed with a 16-gauge needle, but I could not get into any fluid pockets, which may indicate that this area is more organized. Patient tolerated aspiration well. Will await culture results.
[2025-02-28 11:38] LABS: POC Glucose,Bedside 233 (70-110)
--- NOTE | 2025-02-28 12:48 | HMH.PHAINT1 ---
Pharmacy Intervention Comments: MEDICATION RECONCILIATION COMPLETE USING RX BOTTLES AND PATIENT INTERVIEW. NURSE CLARIFIED WITH PATIENT'S DAUGHTER DOSE OF TRAMADOL, GABAPENTIN, BUMEX, NO LONGER ON DIGOXIN.
--- NOTE | 2025-02-28 15:15 | PC.NURSE ---
report given to VIVIENNE Ennis on second floor. Patient to be transferred to second floor room 216.
--- NOTE | 2025-02-28 15:40 | HMH.PTEV ---
Physical Therapy Evaluation Rehab PT IP Evaluation Start: 02/28/25 09:56 Freq: ONCE Status: Active Protocol: Document 02/28/25 15:15 [email or web address] (Rec: 02/28/25 15:40 [email or web address] [id number]) Subjective/History History History Pt. is a 69 year old male w/ a PMH of hypertension, hyperlipidemia, COPD, HIV, CHF, COPD, type 2 diabetes, and atrial fibrillation who presents to [facility] ICU w/ an altered mental status. Pt. also c/o increasing number of falls over the last few weeks secondary to spaghetti legs. Pt. c/o sudden onset of weakness in BLEs w/ activities on his feet. However, pt . c/o what brought him to [facility] is his altered mental status that just kept getting worse. Pt. reports he remembers sitting outside on his front porch yesterday( 02/27/25) when symptoms started worsening. Pt. c/o of the heat not helping the situation. Pt. reports he lives at home with his , states he was IND. w/ ADLs prior to the increasing number of falls he has been complaining of. Pt. reports he uses a rollator at home and when he leaves the house. Pt. reports having 1 step up into/out of the house, where he was assistance in front of him and behind him while negotiating the step. Pt. vocalizes living in a 1-story home. Subjective Subjective Pt. reports, it's not a good time because I've been falling a lot. New diagnosis of No cancer in past 12 months? [facility] How much help from another person do you currently need... Turning from your A little back to your side while in a flat bed without using bedrails? Moving from lying on A little back to sitting on the side of a flat bed without using bedrails? Moving to and from a A little bed to a chair ( including a wheelchair)? Standing up from a A little chair using your arms? (e.g., wheelchair, bedside chair) Walking in hospital A lot room? Climbing 3-5 steps A lot with a railing? Mobility Score 16 Mobility Level [facility] 5 Stand (1 or more minutes) Mobility Calculator Rehab PT IP Eval Ambulation Observation IP General Gait Antalgic Gait,Wide Based Gait,Shuffling Step Pattern Observation Ambulation Distance 5 (feet) Ambulation Assistive Standard Walker Device Ambulation Ability Minimal x 1 (25% assist) Balance Ability to Arise Able, uses arms to help Sitting Balance Steady, safe Standing Balance Steady, wide stance Dynamic Sitting Fair Balance Ability Dynamic Standing Fair Balance Ability Transfers Bed Transfer Ability Minimal x 1 (25% assist) Chair Transfer Minimal x 1 (25% assist) Ability Sit to Stand Bed Minimal x 1 (25% assist) Transfer Ability Sit to Stand Chair Minimal x 1 (25% assist) Transfer Ability ROM RLE PT ROM Status WFL LLE PT ROM Status WFL MMT RLE PT MMT WFL LLE PT MMT WFL Rehab PT IP prob,goals,plan Problems Date of Evaluation: 02/28/25 PT IP Problems Bed Mobility,Transfers,Gait,Balance,Self care,Safety Rehab Potential Rehab Potential Good Equipment Needs Assistive Devices Rolling / Wheeled Walker Plan PT Intervention Plan Bed Mobility,Transfers,Gait,Balance,Self care,Safety, Therapeutic Exercise PT Plan Frequency BID Duration LOS Discharge Goals Bed Transfer Ability Contact Guard/Hand Hold Sit to Stand Chair Contact Guard/Hand Hold Transfer Ability Ambulation Assistive Rolling Walker Device Ambulation Distance 15 (feet) Discharge Plan PT Discharge Plan PT recommendation to Inpatient Rehabilitation facility upon discharge from [facility], once medically stable per MD, secondary to current activity status. Pt.'s current activity level coupled w/ assistance in home environment would place pt. at increased risk for a fall, and would receive further benefit from skilled PT Inpatient Rehab. to improve muscle strength, stamina, and endurance to enhance current ADL quality and assist caregiver burden at home. Pt. would benefit from skilled acute care PT while at [facility] to address deficits and prevent further functional decline. Eval Complexity Eval Charge Codes 10463 - Moderate Complexity PHYSICIAN CERTIFICATION: I certify the specified therapy services for Rachid Love JR are required, authorized, and reviewed every 30 days.
--- NOTE | 2025-02-28 15:48 | PC.NURSE ---
patient left ICU via wheelchair with MS RN @[id number]
--- NOTE | 2025-02-28 15:53 | P.PN_ITS ---
Subjective *Date: 02/28/25 *Time: 21:59 Interval history: Patient oriented to self and place today. Improved to 4 L oxygen this morning. Off BiPAP. Denying pain in his abdomen. No fevers overnight. No nausea or vomiting. Seeing some improvement since initiation of treatment. States he recently had his buprenorphine patch increased 2 days ago. Concerned this may have added dizziness confusion. No other recent changes to medications. Denies feeling ill prior to dose adjustment Medical Exam Vital signs and Labs for Last 24 Hours: Vital Signs Temp Pulse Pulse Resp BP BP Pulse Ox 02/28/25 15:11 93 L 02/28/25 15:00 02/28/25 14:00 96 H 20 102/47 L 94 L 02/28/25 13:00 02/28/25 12:00 80 02/28/25 12:00 97.4 F L 83 20 115/71 95 02/28/25 11:00 02/28/25 10:00 84 18 109/63 L 94 L 02/28/25 09:15 95 02/28/25 09:00 02/28/25 08:03 98.4 F 70 18 111/73 96 02/28/25 06:00 61 13 122/60 96 02/28/25 05:00 02/28/25 04:00 66 02/28/25 04:00 76 15 135/85 96 02/28/25 03:00 02/28/25 02:00 02/28/25 02:00 02/28/25 02:00 70 6 L 121/69 97 02/28/25 01:00 02/28/25 00:35 78 02/28/25 00:00 98.4 F 82 14 137/78 96 02/27/25 23:45 78 19 137/88 99 02/27/25 23:44 98.4 F 83 20 103/56 L 02/27/25 23:00 83 18 103/56 L 97 02/27/25 22:56 97 02/27/25 22:30 81 19 94/52 L 98 02/27/25 22:00 82 15 96/55 L 97 02/27/25 21:30 84 14 108/58 L 99 02/27/25 21:25 02/27/25 21:24 81 13 102/60 L 100 02/27/25 20:20 86 02/27/25 20:20 90 02/27/25 20:15 101/68 L 02/27/25 20:06 98.7 F 95 H 21 87/56 L 95 02/27/25 20:00 95 02/27/25 20:00 O2 Del Method O2 Flow Rate FiO2 02/28/25 15:11 Nasal Cannula 4 02/28/25 15:00 Nasal Cannula 4 02/28/25 14:00 Nasal Cannula 4 02/28/25 13:00 Nasal Cannula 4 02/28/25 12:00 02/28/25 12:00 Nasal Cannula 4 02/28/25 11:00 Nasal Cannula 4 02/28/25 10:00 Nasal Cannula 4 02/28/25 09:15 Nasal Cannula 4 02/28/25 09:00 Nasal Cannula 4 02/28/25 08:03 Nasal Cannula 4 02/28/25 06:00 BiPAP 02/28/25 05:00 Nasal Cannula 4 02/28/25 04:00 02/28/25 04:00 BiPAP 02/28/25 03:00 BiPAP 30 02/28/25 02:00 BiPAP 02/28/25 02:00 40 02/28/25 02:00 BiPAP 02/28/25 01:00 BiPAP 02/28/25 00:35 02/28/25 00:00 BiPAP 02/27/25 23:45 02/27/25 23:44 BiPAP 02/27/25 23:00 02/27/25 22:56 BiPAP 02/27/25 22:30 02/27/25 22:00 02/27/25 21:30 02/27/25 21:25 50 02/27/25 21:24 02/27/25 20:20 02/27/25 20:20 02/27/25 20:15 02/27/25 20:06 BiPAP 02/27/25 20:00 BiPAP 50 02/27/25 20:00 50 Intake and Output 02/27/25 02/28/25 02/28/25 23:59 07:59 15:59 Intake Total 880 / 880 Output Total 700 / 1100 400 / 1100 Balance -700 / -220 480 / -220 Intake: Intake, Oral Amount 880 / 880 Output: Output, Urine Amount 700 / 1100 400 / 1100 Other: Number of Unmeasured Voids 0 0 Weight 117.934 kg 109.2 kg Patient Weight 02/28/25 23:59 Weight 109.2 kg Laboratory Results - last 24 hr 02/27/25 19:45: WBC 11.0 H, RBC 4.08 L, Hgb 11.9 L, Hct 37.3 L, MCV 91.4, MCH 29.2, MCHC 31.9, RDW 13.4, Plt Count 277, MPV 9.9, Neut % (Auto) 70.8, Lymph % (Auto) 14.0, [place] % (Auto) 10.4 H, Eos % (Auto) 3.3, Baso % (Auto) 0.8, Neut # (Auto) 7.8, Lymph # (Auto) 1.5, [place] # (Auto) 1.1 H, Eos # (Auto) 0.4, Baso # (Auto) 0.1, PT 12.4, INR 1.13 H, APTT 28.9, VBG pH 7.33, VBG pCO2 67.5 H, VBG pO2 52.9 H, VBG HCO3 34.9 H, VBG Total CO2 37.0 H, VBG O2 Saturation 85.3 H, VBG Base Excess 9.0 H, VBG Lactic Acid 2.2 H, Sodium 128 L, Potassium 4.8, Chloride 83 L, Carbon Dioxide 38 H, Anion Gap 11.8, BUN 19, Creatinine 1.40 H, Estimated Creat Clear 43, Estimated GFR 50 L, Est GFR ( Amer) 61, Glucose 279 H, Hemoglobin A1c 9.1 H, Lactate 1.5, Calcium 9.0, Magnesium 2.2, Total Bilirubin 1.2, AST 30, ALT 12, Alkaline Phosphatase 233 H, Troponin I < 0.01, NT-Pro-B Natriuret Pep 5520 H, Total Protein 7.8, Albumin 3.3 L, Globulin 4.5 H, Albumin/Globulin Ratio 0.7 L 02/27/25 21:45: Urine Color Yellow, Urine Appearance Clear, Urine pH 7.0, Ur Specific [place] 1.010, Urine Protein 1+ A, Urine Glucose (UA) Trace, Urine Ketones Negative, Urine Blood 3+ A, Urine Nitrate Negative, Urine Bilirubin Negative, Urine Urobilinogen 2.0, Ur Leukocyte Esterase Negative, Urine RBC Tntc, Urine WBC 3-5, Ur Squamous Epith Cells 3-5, Urine Bacteria 2+, Urine Mucus 3+, Urine Opiates Screen Negative, Urine Methadone Screen Negative, Ur Barbituates Screen Negative, Ur Phencyclidine Scrn Negative, Ur Amphetamines Screen Negative, U Benzodiazepines Scrn Negative, Urine Cocaine Screen Negative, U Marijuana (THC) Screen Negative 02/27/25 22:00: SARS-CoV-2 (PCR) Not detected, Influenza Type A (PCR) Not detected, Influenza Type B (PCR) Not detected, RSV (PCR) Not detected, Rhinovirus (PCR) Not detected 02/27/25 22:47: Troponin I 0.03 02/28/25 00:58: Lactate 0.9 02/28/25 01:38: Troponin I 0.04 H 02/28/25 06:22: POC Glucose 334 H* 02/28/25 07:17: WBC 6.4 D, RBC 3.84 L, Hgb 11.4 L, Hct 34.8 L, MCV 90.6, MCH 29.7, MCHC 32.8, RDW 13.2, Plt Count 198 D, MPV 9.7, Neut % (Auto) 88.8 H, Lymph % (Auto) 7.8 L, [place] % (Auto) 2.2, Eos % (Auto) 0.2, Baso % (Auto) 0.2, Neut # (Auto) 5.7, Lymph # (Auto) 0.5 L, [place] # (Auto) 0.1, Eos # (Auto) 0.0, Baso # (Auto) 0.0, Total Counted 100, Neutrophils % (Manual) 92 H, Lymphocytes % (Manual) 6 L, Monocytes % (Manual) 2, Platelet Estimate Normal, RBC Morphology Normal, Sodium 129 L, Potassium 5.0, Chloride 83 L, Carbon Dioxide 38 H, Anion Gap 13.0, BUN 23 H, Creatinine 1.40 H, Estimated Creat Clear 41, Estimated GFR 50 L, Est GFR ( Amer) 61, Glucose 324 H, Calcium 8.3 L 02/28/25 07:21: VBG pH 7.39, VBG pCO2 59.1 H, VBG pO2 100.6 H, VBG HCO3 35.2 H, VBG Total CO2 37.0 H, VBG O2 Saturation 98.2 H, VBG Base Excess 10.3 H, VBG Lactic Acid 2.1 H 02/28/25 11:19: POC Glucose 233 H I & O for Labs for Last 24 Hours: Intake & Output 02/25/25 02/26/25 02/27/25 02/28/25 23:59 23:59 23:59 23:59 Intake Total 880 / 880 Output Total 1100 / 1100 Balance -220 / -220 Weight 117.934 kg 109.2 kg Microbiology Reports for the Last 24 Hours: Microbiology 02/28/25 10:10 Abdomen Gram Stain - Final Constitutional: Present mild distress, obese, chronically ill appearing and cooperative Head: Present atraumatic and normocephalic ENT: Present normal exam Neck: Present normal inspection Respiratory: Present prolonged expiratory phase, crackles (bases) and diminished air movement; Absent rhonchi or wheezes Cardiac: Present Reg Rate and Rhythm GI: Present soft and normal bowel sounds; Absent distention or tenderness Comments:: bilateral pannus hematomas, non-tender, no warmth (male): Present deferred Extremities: Absent edema Skin: Present intact and warm Comment:: lesions on legs, chronic with scabbing Neuro: Present Grossly Intact, alert, awake, oriented x 3 and moves all extremities Comment:: Groggy, answering questions appropriately however Assessment and Plan *Assessment and plan (1) Encephalopathy acute: Status: Acute Category: Medical Code(s): G93.40 - Encephalopathy, unspecified (2) Acute on chronic respiratory failure with hypoxia and hypercapnia: Status: Acute Category: Medical Code(s): J96.21 - Acute and chronic respiratory failure with hypoxia; J96.22 - Acute and chronic respiratory failure with hypercapnia (3) Type 2 diabetes mellitus with vascular disease: Status: Chronic Category: Medical Code(s): E11.59 - Type 2 diabetes mellitus with other circulatory complications (4) Atrial fibrillation: Status: Acute Category: Medical Code(s): I48.91 - Unspecified atrial fibrillation (5) Chronic diastolic CHF (congestive heart failure): Status: Chronic Category: Medical Code(s): I50.32 - Chronic diastolic (congestive) heart failure (6) Hematoma: Problem Comment: Anticoagulation is being withheld due to the hematoma. Status: Deleted Category: Medical Code(s): T14.8XXA - Other injury of unspecified body region, initial encounter (7) HIV disease: Status: Chronic Category: Medical Code(s): B20 - Human immunodeficiency virus [HIV] disease (8) Hypertension: Status: Acute Qualifiers: Hypertension type: primary hypertension Qualified Code(s): I10 - Essential (primary) hypertension Category: Medical Code(s): I10 - Essential (primary) hypertension (9) Bradycardia: Status: Acute Category: Medical Code(s): R00.1 - Bradycardia, unspecified (10) Syncope: Status: Acute Category: Medical Code(s): R55 - Syncope and collapse (11) Hyponatremia: Status: Acute Category: Medical Code(s): E87.1 - Hypo-osmolality and hyponatremia (12) FRANNIE (acute kidney injury): Status: Acute Category: Medical Code(s): N17.9 - Acute kidney failure, unspecified Plan 69-year-old male with multiple chronic medical conditions including poorly controlled type 2 diabetes, HIV, CHF, COPD, ABEL, pharmacy and frequent falls. Presented to the ER due to confusion, decreased responsiveness. Showing some improvement this morning. Continues to require inpatient management. Problems addressed as follows: Acute on chronic heart failure with preserved ejection fraction Atrial flutter Hypertension -Rate controlled. Continuing home regimen for blood pressure and rate control. Continue Bumex 2 milligrams twice daily starting in the morning. Continue metoprolol tartrate 50 mg twice daily per home regimen - Agree with holding anticoagulation due to risk of bleed given his recurrent falls. Hyponatremia: Sodium 129, chloride 83. Monitor for improvement with fluid resuscitation and nutritional support HIV: On Biktarvy. Continue home regimen. CD4 count ordered along with viral load. Most recent CD4 count of 315, concern is getting low and putting him at risk for AIDS. Complicates all aspects of his care Hematoma, left lower abdominal wall - Surgery consulted to evaluate lesions in abdomen given CT findings showing stranding. Discussed case, appear to be old hematomas. Tapped lesions in removed old hematoma. No purulent material. Low concern for infection. -Hemoglobin 11.4, relatively stable compared to previous labs. White count improved from 11-6.4. Platelets 198. Repeat CBC, CMP, magnesium ordered for the morning. Decompensated Respiratory Failure (Acute on Chronic) Loculated effusion, seen on CT -Patient transition to Suboxone patch, dose increased 2 days ago, concern and is adding sedative component. Caution with polypharmacy. - On 4 L oxygen. Baseline 2 to 3 L. Wean as tolerated for goal sats greater 90%. Altered Mental Status (Encephalopathy) -Consistent with toxic encephalopathy due to polypharmacy versus infection. Compounded by past medical history of dementia, COPD, CHF. - Some improvement in mentation today compared to admission. Continues to require inpatient monitoring. - Caution with oversedation of polypharmacy Mild Renal Dysfunction -Creatinine 1.4, baseline 1.0. BUN elevated at 23. Potassium 5.0, repeat CBC, CMP, magnesium ordered for morning. PT and OT evaluate patient every visit. He is adamant he will go home. Has no desire to go to placement. No consult placed at this visit given patient's clear goals for discharging home. Nursing assisting with getting patient out of bed to chair. Ambulating with support. Full code Diabetic diet Holding anticoagulation in the setting of hematoma
--- NOTE | 2025-02-28 16:22 | PC.NURSE ---
ok to use dexcom per md. Dexcom reading 209 per pt.
--- NOTE | 2025-02-28 17:03 | PC.NURSE ---
Pt arrived to Med/surg floor @[id number]
--- OUTSIDE RECORDS SUMMARY | 2025-02-28 17:21 | XMS_ITS | Encounter Summary ---
Author Organization Healthcare Address [address] [place] [address] Care Team Providers Care Chiller Operator Name Role Phone Zakiya Mcclure MD Primary Care Provider + [phone] Vannesa Hernandez LCSW Unavailable Unavailable Encounter Details Date Type Department Care Team (Late st Contact Info) Description 06/11/2020 Orders Only External Location [address] [place] [address] Provider, External Social History Tobacco Use Types [...] documented as of this encounter Care Teams Chiller Operator Relationship Specialty Start Date End Date Zakiya Mcclure MD [address] [place] [address] PCP - General 09/16/23 Vannesa Hernandez, [place] [phone] Ticket Speculator Straightedge Man 06/11/20 06/11/20 documented as of this encounter
--- OUTSIDE RECORDS SUMMARY | 2025-02-28 17:22 | XMS_ITS | Encounter Summary ---
Author Organization Healthcare Address [address] [place] [address] Care Team Providers Care Slusher Operator Name Role Phone Zakiya Mcclure MD Primary Care Provider + [phone] Vannesa Hernandez LCSW Unavailable Unavailable Encounter Details Date Type Department Care Team (Late st Contact Info) Description 06/11/2020 Orders Only External Location [address] [place] [address] Provider, External Social History Tobacco Use Types [...] documented as of this encounter Care Teams Slusher Operator Relationship Specialty Start Date End Date Zakiya Mcclure MD [address] [place] [phone] PCP - General 09/16/23 Vannesa Hernandez, [place] [phone] Temperature Control Inspector Frame Feeder 06/11/20 06/11/20 documented as of this encounter
--- OUTSIDE RECORDS SUMMARY | 2025-02-28 17:22 | XMS_ITS | Encounter Summary ---
Author Organization Healthcare Address [address] [place] [address] Care Team Providers Care Steno Pool Supervisor Name Role Phone Zakiya Mcclure MD Primary Care Provider + [phone] Vannesa Hernandez LCSW Unavailable Unavailable Encounter Details Date Type Department Care Team (Late st Contact Info) Description 06/11/2020 Orders Only External Location [address] [place] [address] Provider, External Social History Tobacco Use Types [...] documented as of this encounter Care Teams Steno Pool Supervisor Relationship Specialty Start Date End Date Zakiya Mcclure MD [address] [place] [id number] PCP - General 09/16/23 Vannesa Hernandez, [place] [phone] Dietetics Teacher Drafter Apprentice 06/11/20 06/11/20 documented as of this encounter
--- OUTSIDE RECORDS SUMMARY | 2025-02-28 17:22 | XMS_ITS | Encounter Summary ---
Author Organization Healthcare Address [address] [place] [address] Care Team Providers Care Net Mender Name Role Phone Zakiya Mcclure MD Primary Care Provider + [phone] Vannesa Hernandez LCSW Unavailable Unavailable Encounter Details Date Type Department Care Team (Late st Contact Info) Description 06/11/2020 Orders Only External Location [address] [place] [address] Provider, External Social History Tobacco Use Types [...] documented as of this encounter Care Teams Net Mender Relationship Specialty Start Date End Date Zakiya Mcclure MD [address] [place] [phone] PCP - General 09/16/23 Vannesa Hernandez, [place] [phone] Bath Steward/Stewardess Center Mgr 06/11/20 06/11/20 documented as of this encounter
--- OUTSIDE RECORDS SUMMARY | 2025-02-28 17:22 | XMS_ITS | Encounter Summary ---
Author Organization Healthcare Address [address] [place] [address] Care Team Providers Care Forder Operator Name Role Phone Zakiya Mcclure MD Primary Care Provider + [phone] Vannesa Hernandez LCSW Unavailable Unavailable Encounter Details Date Type Department Care Team (Late st Contact Info) Description 06/11/2020 Orders Only External Location [address] [place] [address] Provider, External Social History Tobacco Use Types [...] documented as of this encounter Care Teams Forder Operator Relationship Specialty Start Date End Date Zakiya Mcclure MD [address] [place] [phone] PCP - General 09/16/23 Vannesa Hernandez, [place] [phone] Granite Polisher Machine Packing Line Worker 06/11/20 06/11/20 documented as of this encounter
--- OUTSIDE RECORDS SUMMARY | 2025-02-28 17:22 | XMS_ITS | Clinical Summary ---
Author Organization Healthcare Address [address] [place] [address] Care Team Providers Care Housekeeping Manager Name Role Phone Zakiya Mcclure MD Primary Care Provider + [phone] Allergies Active Allergy Reactions Criticality Noted Date [...] Department Care Team Description 12/25/[address] [facility] Medicine Specialties [address] [place] [address] Dai Argueta from Last 3 [...] place to sleep or slept in a residential (including now)? No 09/18/2023 CAGE ASSESSMENT Answer [...] drink first t primo in the morning (EYE-AREA SALES MANAGER) to steady your nerves or to get [...] 09/03/1997 [facility]-Diabetes: Hemoglobin A1C 12/18/2023 09/18/2023, 06/13/2020 [id number] Vaccine ( season) 2024 08/08/2022, 07/08/2021, 10/11/2020, [...] this topic Medical Devices Implanted Type Area Inside Barrel Polisher Device Identifier Shelf Expiration Date Model / Serial / Lot Plate Plate Left: Arm Plate Plate N/A: Other (See Comments) Description:Head Ring Ring Right: Eye López Viper2 Straight 120mm - S. - [id number] Implanted:Qty : 2 on 09/20/2023 by Los Mendoza MD at [facility] [id number] 09/20/2024 [id number] / . / Screw Screw N/A: Back Screw 6.0mm Viper Cfx Fen Xtab 50mm - S. - [id number] Implanted:Qty : 4 on 09/20/2023 by Los Mendoza MD at [facility] Screw [id number] 09/20/2024 [id number] / . / Screw 6.0mm Viper Cfx Fen Xtab 45mm - S. - [id number] Implanted:Qty : 4 on 09/20/2023 by Los Mendoza MD at [facility] Screw [id number] 09/20/2024 [id number] / . / Single Inner Setscrew - S. - [id number] Implanted:Qty : 8 on 09/20/2023 by Los Mendoza MD at [facility] Screw [id number] 09/20/2024 [id number] / . / Procedures Procedure Name Priority [...] Adults <6.0% Children and Adolescents <7.5% Source: [place] [employer]. Standards of medical care in diabetes,2017. Diabetes Care.2017:40 (suppl 1):S1-S135. HbA1c assay performed by an ion-exchange chromatography method that is certified traceable to the DCCT. us Dianelys Monge APRN LAB BLOOD ORDERABLES Elda l Result Performing Organization Address City/[facility] Co de Phone Number [facility]ALTHCARE [facility] [address] [place] [address] * [place] Hepatitis C Antibody (06/11/2020 4:49 PM EDT) [place] Hepatitis C Ab NEGATIVE Reference Range: Negative SUNQUEST 06/11/2020 4:49 PM EDT 06/11/2020 4:58 PM EDT Yasmany Butterfield MD LAB BLOOD ORDERABLES Final Result SUNQUEST from Last 3 Months or Most Recently Relevant to Health Maintenance Additional Health Concerns Infection Onset Date Last Indicated MRSA Comment:MRSA (methicillin resistant Staphylococcus aureus) 06/21/2020 01/25/2021 Insurance [facility] [employer] MEDICARE Advance Directives * Full Code (Latest Code Status on File) Date Activated Date Inactivated Comments 09/17/2023 1:42 AM 09/25/2023 5:18 PM Question Answer Comments Patient has decision-making capacity? Yes Care Teams Housekeeping Manager Relationship Specialty Start Date End Date Zakiya Mcclure MD [address] [place] [address] PCP - General 09/16/23
[2025-02-28] MEDS: TAMSULOSIN 0.4 MG 1 EACH PO (20:32)
[2025-02-28] MEDS: PT OWN MED *PANTOPRAZOLE 40 MG TAB 1 EACH PO (20:32)
[2025-03-01] VITALS: BP 109/81; PULSE 105; PULSE 120; RESP 18; TEMP 36.7; O2SAT 93
[2025-03-01] MEDS: MEROPENEM 1 GM in 0.9 % SODIUM CHLORIDE 100 ML IV ×3 (01:08→17:01)
[2025-03-01 04:00] VITALS: BP 123/72; PULSE 120; PULSE 98; RESP 18; TEMP 36.5; O2SAT 93; BMI 40.2
--- NOTE | 2025-03-01 05:29 | PC.NURSE ---
pt. a&ox4 rested well this shift, no acute changes, tolerating 3 L NC well with o2 stats >90%. No complaints of pain. Handley cath in place draining adequate amt. of urine. Call light with in reach.
[2025-03-01] MEDS: ACETAMINOPHEN 325MG TAB 650 MG PO ×2 (05:44→17:16)
[2025-03-01 06:27] LABS: Hematocrit 34.6 % (42.0-52.0); Hemoglobin 10.9 g/dL (14.1-18.0); Immature Granulocytes % 0.4 %; Mean Corpuscular HGB Conc 31.5 g/dL (31.8-35.4); Mean Corpuscular Hemoglobin 28.7 pg (27.0-31.2); Mean Corpuscular Volume 91.1 fl (80-94); Nucleated Red Blood Cells % 0 %; Platelet Count 225 K/mm3 (142-424); Red Blood Count 3.80 M/mm3 (4.60-6.20); Red Cell Distribution Width-SD 44.5 fL; White Blood Count 11.7 K/mm3 (4.8-10.8)
[2025-03-01 06:47] LABS: Albumin Level 3.3 g/dl (3.5-5.0); Chloride 88 mmol/L (98-107); Potassium 4.0 mmoL/L (3.5-5.1); Sodium 135 mmol/L (136-145)
[2025-03-01 06:50] LABS: Alanine Aminotransferase 11 U/L (12-78); Albumin/Globulin Ratio 0.9 (1.1-1.8); Alkaline Phosphatase 218 U/L (38-126); Aspartate Amino Transferase 25 U/L (17-59); Bilirubin,Total 0.3 mg/dl (0.2-1.3); Blood Urea Nitrogen 26 mg/dl (9-20); Creatinine Clearance Estimated 52 mL/min (50-200); Creatinine,Serum 1.10 mg/dl (0.66-1.25); Estimated Glomerular Filt Rate 66 ml/min (>60); GFR (African American) 80 ML/MIN (>60); Globulin 3.8 g/dL (1.3-3.2); Total Protein,Serum 7.1 g/dl (6.3-8.2)
[2025-03-01 06:51] LABS: Calcium 8.4 mg/dl (8.4-10.2); Glucose 127 mg/dl (74-100); Magnesium 2.3 mg/dl (1.6-2.3)
[2025-03-01 07:02] LABS: Anion Gap 9.0 mEq/L (5-15); Carbon Dioxide 42 mmol/L (22.0-30.0)
[2025-03-01 08:00] VITALS: BP 137/68; PULSE 120; PULSE 125; PULSE 128; RESP 18; TEMP 36.9; O2SAT 96
[2025-03-01] MEDS: VENLAFAXINE 150 MG 1 EACH PO (08:23)
[2025-03-01] MEDS: FUROSEMIDE 40MG/4ML VIAL 40 MG IV ×2 (08:23→16:48)
[2025-03-01] MEDS: BIKTARVY 1 EACH PO (08:23)
[2025-03-01] MEDS: FINASTERIDE 5 MG 1 EACH PO (08:23)
[2025-03-01] MEDS: ASPIRIN EC 81MG TABLET 81 MG PO (08:24)
[2025-03-01] MEDS: HEPARIN SODIUM 5,000 UNIT/ML VIAL 5000 UNIT SUBCUT ×2 (08:24→20:17)
[2025-03-01] MEDS: METOPROLOL TARTRATE 50MG TABLET 50 MG PO (08:25)
--- NOTE | 2025-03-01 11:15 | PC.NURSE ---
dexcom level checked. it said 197
[2025-03-01] MEDS: humaLOG 100 UNITS/ML 10ML VIAL (SSI) SUBCUT ×2 (11:22→20:17)
[2025-03-01 12:00] VITALS: BP 103/81; PULSE 125; PULSE 130; RESP 14; TEMP 36.4; O2SAT 98
[2025-03-01 16:00] VITALS: BP 105/78; PULSE 128; PULSE 130; RESP 16; TEMP 36.4; O2SAT 98; O2SAT 99
--- NOTE | 2025-03-01 16:09 | INFXCTL.NOTE ---
pt is A&Ox4. pt is currently on 3L NC. his heart rate has stayed above 100 mostly in the 115-130 range throughout the day. is aware of this. pt has been resting most of the day, date night sitter said he was awake most of the night. pt has been diuresing well today and colvin catheter was removed. call light is within reach.
--- NOTE | 2025-03-01 17:35 | EXP.ACUTE.PN ---
Subjective *Date: 03/01/25 *Time: 18:20 Interval history: Patient appears almost at baseline mentation. Blood pressure stable. Heart rate remains fast however in sinus tach. No nausea or vomiting. Stable on baseline oxygen of 3 L afebrile Medical Exam Vital signs and Labs for Last 24 Hours: Vital Signs Temp Pulse Pulse Resp BP Pulse Ox O2 Del Method 03/01/25 17:10 Nasal Cannula 03/01/25 16:00 97.5 F L 128 H 16 105/78 L 98 Nasal Cannula 03/01/25 16:00 99 Nasal Cannula 03/01/25 15:05 Nasal Cannula 03/01/25 13:05 Nasal Cannula 03/01/25 12:00 97.6 F 125 H 14 103/81 L 98 Nasal Cannula 03/01/25 11:05 Nasal Cannula 03/01/25 09:00 Nasal Cannula 03/01/25 08:00 125 H 96 Nasal Cannula 03/01/25 08:00 96 Nasal Cannula 03/01/25 08:00 98.4 F 128 H 18 137/68 96 Nasal Cannula 03/01/25 06:27 Nasal Cannula 03/01/25 05:00 Nasal Cannula 03/01/25 04:00 97.7 F 98 H 18 123/72 93 L Nasal Cannula 03/01/25 04:00 120 H 03/01/25 03:00 Nasal Cannula 03/01/25 01:00 Nasal Cannula 03/01/25 00:00 120 H 03/01/25 00:00 98.0 F 105 H 18 109/81 L 93 L Nasal Cannula 02/28/25 23:00 Nasal Cannula 02/28/25 21:00 Nasal Cannula 02/28/25 20:00 120 H 02/28/25 20:00 Nasal Cannula 02/28/25 20:00 98.1 F 109 H 22 127/68 92 L Nasal Cannula 02/28/25 19:00 Nasal Cannula 02/28/25 18:52 Nasal Cannula, BiPAP O2 Flow Rate 03/01/25 17:10 3 03/01/25 16:00 3 03/01/25 16:00 3 03/01/25 15:05 3 03/01/25 13:05 3 03/01/25 12:00 3 03/01/25 11:05 3 03/01/25 09:00 3 03/01/25 08:00 3 03/01/25 08:00 3 03/01/25 08:00 3 03/01/25 06:27 3 03/01/25 05:00 3 03/01/25 04:00 4 03/01/25 04:00 03/01/25 03:00 3 03/01/25 01:00 3 03/01/25 00:00 03/01/25 00:00 3 02/28/25 23:00 3 02/28/25 21:00 3 02/28/25 20:00 02/28/25 20:00 3 02/28/25 20:00 3 02/28/25 19:00 3 02/28/25 18:52 4 Intake and Output 03/01/25 03/01/25 03/01/25 07:59 15:59 23:59 Intake Total 240 / 940 600 / 940 100 / 940 Output Total 1550 / 4300 2750 / 4300 Balance -1310 / -3360 -2150 / -3360 100 / -3360 Intake: Intake, Oral Amount 240 / 740 500 / 740 Intake, Total IV Amount 100 / 200 100 / 200 Meropenem 1 gm In 0.9 % Sodium 100 / 200 100 / 200 Chloride 100 ml @ 100 mls/hr IV Q8H [facility] Rx#:[id number] Output: Output, Urine Amount 1550 / 2250 700 / 2250 Output, Urine Amount (Catheter) 2049 Handley 2049 Other: Number of Unmeasured Voids 0 Number of Bowel Movements 1 Weight 109.486 kg Patient Weight 03/01/25 23:59 Weight 109.486 kg Laboratory Results - last 24 hr 03/01/25 06:10: WBC 11.7 H D, RBC 3.80 L, Hgb 10.9 L, Hct 34.6 L, MCV 91.1, MCH 28.7, MCHC 31.5 L, RDW 13.5, Plt Count 225, MPV 9.5, Neut % (Auto) 78.2, Lymph % (Auto) 12.3, [place] % (Auto) 7.6, Eos % (Auto) 1.1, Baso % (Auto) 0.4, Neut # (Auto) 9.1 H, Lymph # (Auto) 1.4, [place] # (Auto) 0.9, Eos # (Auto) 0.1, Baso # (Auto) 0.1, Sodium 135 L, Potassium 4.0, Chloride 88 L, Carbon Dioxide 42 H*, Anion Gap 9.0, BUN 26 H, Creatinine 1.10 D, Estimated Creat Clear 52, Estimated GFR 66, Est GFR ( Amer) 80 D, Glucose 127 H D, Calcium 8.4, Magnesium 2.3, Total Bilirubin 0.3, AST 25, ALT 11 L, Alkaline Phosphatase 218 H, Total Protein 7.1, Albumin 3.3 L, Globulin 3.8 H, Albumin/Globulin Ratio 0.9 L I & O for Labs for Last 24 Hours: Intake & Output 02/26/25 02/27/25 02/28/25 03/01/25 23:59 23:59 23:59 23:59 Intake Total 1240 / 1480 940 / 940 Output Total 2600 / 2600 4300 / 4300 Balance -1360 / -1120 -3360 / -3360 Weight 117.934 kg 109.2 kg 109.486 kg Microbiology Reports for the Last 24 Hours: Microbiology 02/27/25 21:45 Urine,Clean Catch Urine Culture - Final No growth. 02/27/25 21:57 Blood Blood Culture - Preliminary NO GROWTH AFTER 24 HOURS 02/27/25 21:50 Blood Blood Culture - Preliminary NO GROWTH AFTER 24 HOURS Constitutional: Present no acute distress, obese, chronically ill appearing and cooperative Head: Present atraumatic and normocephalic ENT: Present normal exam Neck: Present normal inspection Respiratory: Present prolonged expiratory phase, crackles (bases) and diminished air movement; Absent rhonchi or wheezes Cardiac: Present Regular Rhythm and Tachycardia GI: Present soft and normal bowel sounds; Absent distention or tenderness Comments:: bilateral pannus hematomas, non-tender, no warmth (male): Present deferred Extremities: Absent edema Skin: Present intact and warm Comment:: lesions on legs, chronic with scabbing Neuro: Present Grossly Intact, alert, awake, oriented x 3 and moves all extremities Assessment and Plan *Assessment and plan (1) Encephalopathy acute: Status: Acute Category: Medical Code(s): G93.40 - Encephalopathy, unspecified (2) Acute on chronic respiratory failure with hypoxia and hypercapnia: Status: Acute Category: Medical Code(s): J96.21 - Acute and chronic respiratory failure with hypoxia; J96.22 - Acute and chronic respiratory failure with hypercapnia (3) Type 2 diabetes mellitus with vascular disease: Status: Chronic Category: Medical Code(s): E11.59 - Type 2 diabetes mellitus with other circulatory complications (4) Atrial fibrillation: Status: Acute Category: Medical Code(s): I48.91 - Unspecified atrial fibrillation (5) Chronic diastolic CHF (congestive heart failure): Status: Chronic Category: Medical Code(s): I50.32 - Chronic diastolic (congestive) heart failure (6) Hematoma: Problem Comment: Anticoagulation is being withheld due to the hematoma. Status: Deleted Category: Medical Code(s): T14.8XXA - Other injury of unspecified body region, initial encounter (7) HIV disease: Status: Chronic Category: Medical Code(s): B20 - Human immunodeficiency virus [HIV] disease (8) Hypertension: Status: Acute Qualifiers: Hypertension type: primary hypertension Qualified Code(s): I10 - Essential (primary) hypertension Category: Medical Code(s): I10 - Essential (primary) hypertension (9) Bradycardia: Status: Acute Category: Medical Code(s): R00.1 - Bradycardia, unspecified (10) Syncope: Status: Acute Category: Medical Code(s): R55 - Syncope and collapse (11) Hyponatremia: Status: Acute Category: Medical Code(s): E87.1 - Hypo-osmolality and hyponatremia (12) FRANNIE (acute kidney injury): Status: Acute Category: Medical Code(s): N17.9 - Acute kidney failure, unspecified Plan 69-year-old male with multiple chronic medical conditions including poorly controlled type 2 diabetes, HIV, CHF, COPD, ABEL, pharmacy and frequent falls. Presented to the ER due to confusion, decreased responsiveness. Showing some improvement this morning. Continues to require inpatient management. Problems addressed as follows: Acute on chronic heart failure with preserved ejection fraction Atrial flutter Hypertension - Rate elevated today, increase metoprolol to succinate 100 mg twice daily. Continue Bumex 2 milligrams twice daily - Agree with holding anticoagulation due to risk of bleed given his recurrent falls. Hyponatremia: Sodium normalized at 135, chloride 88. Potassium 4.0. Repeat CBC, CMP, magnesium ordered for the morning. HIV: On Biktarvy. Continue home regimen. CD4 count ordered along with viral load. Most recent CD4 count of 315, concern is getting low and putting him at risk for AIDS. Complicates all aspects of his care Hematoma, left lower abdominal wall - Surgery consulted to evaluate lesions in abdomen given CT findings showing stranding. Awaiting for studies of cultures obtained from abdomen wounds/lesions -White count remains elevated 11.7. Has fluctuated during admission from 11-6. Platelets stable at 225. -Continue meropenem 1 g every 8 hours empirically for coverage pending culture Decompensated Respiratory Failure (Acute on Chronic) Loculated effusion, seen on CT -Patient transition to Suboxone patch, dose increased several days before admission. Concerned this is complicating his confusion and adding sedative component. Caution with polypharmacy. - On 3 L oxygen. Baseline 2 to 3 L. Wean as tolerated for goal sats greater 90%. Altered Mental Status (Encephalopathy) -Consistent with toxic encephalopathy due to polypharmacy versus infection. Compounded by past medical history of dementia, COPD, CHF. - Some improvement in mentation today compared to admission. Continues to require inpatient monitoring. -Holding gabapentin - Caution with oversedation of polypharmacy Mild Renal Dysfunction -Creatinine 1.1, baseline 1.0. PT and OT evaluate patient every visit. He is adamant he will go home. Has no desire to go to placement. No consult placed at this visit given patient's clear goals for discharging home. Nursing assisting with getting patient out of bed to chair. Ambulating with support. Full code Diabetic diet Holding anticoagulation in the setting of hematoma
[2025-03-01 18:27] VITALS: BMI 40.2
[2025-03-01 20:00] VITALS: BP 117/73; PULSE 130; RESP 21; TEMP 36.8; O2SAT 92
[2025-03-01] MEDS: PT OWN MED *PANTOPRAZOLE 40 MG TAB 1 EACH PO (20:15)
[2025-03-01] MEDS: TAMSULOSIN 0.4 MG 1 EACH PO (20:15)
[2025-03-01] MEDS: METOPROLOL SUCCINATE XL 100MG TABLET 100 MG PO (20:18)
[2025-03-01] MEDS: GABAPENTIN 300MG CAPSULE 300 MG PO (20:19)
[2025-03-02] VITALS (8 sets, daily range): BP systolic 116–137; BP diastolic 67–94; PULSE 110–130; RESP 12–20; TEMP 36.4–37; O2SAT 95–98; BMI 39.4
[2025-03-02] MEDS: MEROPENEM 1 GM in 0.9 % SODIUM CHLORIDE 100 ML IV ×3 (01:03→17:35)
[2025-03-02] MEDS: ACETAMINOPHEN 325MG TAB 650 MG PO ×2 (01:11→20:07)
[2025-03-02] MEDS: IBUPROFEN 400 MG TABLET PO (02:36)
--- NOTE | 2025-03-02 05:24 | PC.NURSE ---
Pt. is a&ox4. Pt. complained of neck and left shoulder pain this shift, treated per nov. Pt. is tolerating 3l nc with 02 sats 95-97%. Pt. remains tachy with no c/o chest pain. Bed is low, locked and call light is in reach.
--- NOTE | 2025-03-02 05:53 | PC.NURSE ---
Passed water, wiped and cleared bedside table off.
--- NOTE | 2025-03-02 05:55 | ECG_ITS ---
APPROVED REPORT Exam: Resting ECG HR:127 bpm ECG Measurements Heart Rate 127 AXES GA 217 P 164 QRSd 147 QRS -10 QT 313 T -28 QTc 388 Conclusion ECTOPIC ATRIAL TACHYCARDIA WITH FIRST DEGREE AV BLOCK RIGHT BUNDLE BRANCH BLOCK [120+ ms QRS DURATION, UPRIGHT V1, 40+ ms S IN I/aVL/V4/V5/V6] ABNORMAL ECG UNCONFIRMED REPORT Electronically signed by : Sabas Johnston MD 03/03/2025 08:48:52
[2025-03-02 06:45] LABS: Albumin Level 3.1 g/dl (3.5-5.0); Chloride 88 mmol/L (98-107); Potassium 3.8 mmoL/L (3.5-5.1); Sodium 137 mmol/L (136-145)
[2025-03-02 06:47] LABS: Hematocrit 38.2 % (42.0-52.0); Hemoglobin 11.8 g/dL (14.1-18.0); Immature Granulocytes % 0.7 %; Mean Corpuscular HGB Conc 30.9 g/dL (31.8-35.4); Mean Corpuscular Hemoglobin 29.0 pg (27.0-31.2); Mean Corpuscular Volume 93.9 fl (80-94); Nucleated Red Blood Cells % 0 %; Platelet Count 219 K/mm3 (142-424); Red Blood Count 4.07 M/mm3 (4.60-6.20); Red Cell Distribution Width-SD 45.3 fL; White Blood Count 5.6 K/mm3 (4.8-10.8)
[2025-03-02 06:48] LABS: Alanine Aminotransferase 11 U/L (12-78); Albumin/Globulin Ratio 0.8 (1.1-1.8); Alkaline Phosphatase 198 U/L (38-126); Aspartate Amino Transferase 24 U/L (17-59); Bilirubin,Total 0.3 mg/dl (0.2-1.3); Blood Urea Nitrogen 21 mg/dl (9-20); Calcium 8.1 mg/dl (8.4-10.2); Creatinine Clearance Estimated 104 mL/min (50-200); Creatinine,Serum 1.00 mg/dl (0.66-1.25); Estimated Glomerular Filt Rate 74 ml/min (>60); GFR (African American) 89 ML/MIN (>60); Globulin 3.8 g/dL (1.3-3.2); Glucose 128 mg/dl (74-100); Total Protein,Serum 6.9 g/dl (6.3-8.2)
[2025-03-02 07:02] LABS: Anion Gap 6.8 mEq/L (5-15); Carbon Dioxide 46 mmol/L (22.0-30.0)
[2025-03-02 07:30] LABS: Magnesium 2.0 mg/dl (1.6-2.3)
--- NOTE | 2025-03-02 08:25 | SW/DCPLANNER ---
I spoke w/ patient regarding plans once medically stable for discharge. PT evaluated patient and recommended SNF level of care. Patient is not agreeable to placement at this time. Patient prefers to return home and resume home health services. Patient is currently established w/ [email or web address]. Patient information/resumption order will be faxed to [email or web address] at time of discharge.
[2025-03-02] MEDS: VENLAFAXINE 150 MG 1 EACH PO (08:34)
[2025-03-02] MEDS: BIKTARVY 1 EACH PO (08:34)
[2025-03-02] MEDS: FINASTERIDE 5 MG 1 EACH PO (08:34)
[2025-03-02] MEDS: GABAPENTIN 300MG CAPSULE 300 MG PO ×3 (08:35→20:07)
[2025-03-02] MEDS: ASPIRIN EC 81MG TABLET 81 MG PO (08:35)
[2025-03-02] MEDS: ENOXAPARIN 120MG/0.8ML SYRINGE 110 MG SUBCUT ×2 (08:35→20:08)
[2025-03-02] MEDS: FUROSEMIDE 40MG/4ML VIAL 40 MG IV ×2 (08:36→17:35)
[2025-03-02] MEDS: METOPROLOL SUCCINATE XL 100MG TABLET 100 MG PO ×2 (08:36→20:07)
[2025-03-02] MEDS: SODIUM CHLORIDE 3% 15ML NEB 3 ML IH (10:13)
--- NOTE | 2025-03-02 10:47 | HMH.OTEV ---
OT Inpatient Evaluation Rehab OT IP Evaluation Start: 03/02/25 10:41 Freq: ONCE Status: Active Protocol: Document 03/02/25 10:41 ARSOSPREY (Rec: 03/02/25 10:47 [facility] [id number]) Rehab OT IP Assessment Subjective History Pt oriented x 3 on arrival. Pt agreeable to engage in therapy evaluation. Pt was admitted on 02/27/25 due to altered mental status. History and physical: Mr. Love is a 69-year-old male presents the ER for evaluation of altered mental status. Patient has past medical history of hypertension, hyperlipidemia, COPD, HIV, CHF, COPD, type 2 diabetes, and atrial fibrillation. Unable to obtain history from patient as he is currently resting on BiPAP. History obtained from ER physician. States that family said patient was less responsive today when they went to check on patient. Patient's oxygen was low. EMS was called. EMS reported that oxygen was in the 70s. Patient does not use supplemental oxygen at home. ER provider states patient is currently on CPAP satting in high 90s. Reports he was initially treated with IV fluids but made hypotension worse. Was given Lasix IV. Subjective Prior to being in the hospital, pt lived at home with his . Pt was recently receiving OT and PT for continued skilled therapy. Pt claims normally he is independent with all ADLs and uses a walker during functional transfers. Pt also still drives. Objective Patient Orientation Person,Place,Birthday Right Upper Min Limitation <25% Extremity Gross ROM Left Upper Extremity Min Limitation <25% Gross ROM Shoulder ROM Muscle Weakness Limitations Elbow ROM Muscle Weakness Limitations Wrist Limitations of Muscle Weakness Range of Motion Bed Mobility bed mobility-scooting,bed mobility - supine/sit Assist Level Minimal x 2 (25% assist) Rehab OT IP prob,goals,plan Problems Date of Evaluation: 03/02/25 OT IP Problems Bed Mobility,Transfers,Balance,Self care,Safety Rehab Potential Rehab Potential Good Equipment Needs Assistive Devices Rolling / Wheeled Walker Plan OT intervention Plan Bed Mobility,Transfers,Balance,Self care,Safety, Therapeutic Exercise OT Plan Frequency Daily Duration LOS Discharge Goals Bed Mobility Ability Standby Assistance Sit to Stand Chair Minimal x 1 (25% assist) Transfer Ability Chair Transfer Minimal x 1 (25% assist) Ability Chair Transfer Stand Step Pivot Technique Chair Transfer Rolling Walker Assistive Devices Lower Body Dressing Moderate Assistance Ability Upper Body Dressing Minimal Assistance Ability Performing Toilet Minimal Assistance Hygiene Ability Overall Commode/ Minimal Assistance Toilet Transfer Ability Commode/Toilet Sit to/from Ambulatory Transfer Technique Commode/Toilet Grab Bars Transfer Assistive Devices Discharge Plan OT Discharge Plan Pt will continue to be seen for OT services while at [facility]. Pt would benefit most from short term rehab at SNF following hospital stay. However, if patient is reluctant with SNF stay, pt shoulder continue with OT and PT. Continued skilled therapy is important in order for patient to improve strength, safety, endurance, ADL independence, and functional transfers to reach PLOF. Eval Complexity Eval Charge Codes 16833 - Moderate Complexity PHYSICIAN CERTIFICATION: I certify the specified therapy services for Rachid Love JR are required, authorized, and reviewed every 30 days.
[2025-03-02] MEDS: METOPROLOL TARTRATE 5MG/5ML VIAL 5 MG IV (11:28)
[2025-03-02] MEDS: humaLOG 100 UNITS/ML 10ML VIAL (SSI) SUBCUT ×2 (11:28→20:08)
--- NOTE | 2025-03-02 17:09 | EXP.ACUTE.PN ---
Subjective *Date: 03/02/25 *Time: 23:08 Interval history: Patient at baseline mentation. Stable on 3 L oxygen. Remains in a flutter with heart rate 120-130 overnight. Adjusting rate controlling medication. Denies any chest pain, nausea, vomiting. Working with therapy. Kidney function stable. Medical Exam Vital signs and Labs for Last 24 Hours: Vital Signs Temp Pulse Pulse Pulse Resp BP Pulse Ox 03/02/25 16:00 98.6 F 110 H 16 131/94 H 98 03/02/25 12:00 128 H 03/02/25 12:00 97.8 F 118 H 16 116/80 97 03/02/25 11:00 03/02/25 10:30 121 H 18 03/02/25 09:00 03/02/25 08:00 03/02/25 08:00 128 H 03/02/25 08:00 97.8 F 126 H 16 125/67 98 03/02/25 06:49 03/02/25 05:00 03/02/25 04:00 120 H 03/02/25 04:00 97.6 F 127 H 20 137/78 97 03/02/25 03:00 03/02/25 01:00 03/02/25 00:00 130 H 03/02/25 00:00 97.6 F 129 H 20 136/78 95 03/01/25 23:00 03/01/25 21:00 03/01/25 20:00 130 H 03/01/25 20:00 03/01/25 20:00 98.2 F 130 H 21 117/73 92 L 03/01/25 18:52 03/01/25 18:13 03/01/25 17:10 O2 Del Method O2 Flow Rate FiO2 03/02/25 16:00 Nasal Cannula 3 03/02/25 12:00 03/02/25 12:00 Nasal Cannula 3 03/02/25 11:00 Nasal Cannula 3 03/02/25 10:30 03/02/25 09:00 Nasal Cannula 3 03/02/25 08:00 Nasal Cannula 3 03/02/25 08:00 03/02/25 08:00 Nasal Cannula 3 03/02/25 06:49 Nasal Cannula 3 03/02/25 05:00 Nasal Cannula 3 03/02/25 04:00 03/02/25 04:00 Nasal Cannula 3 03/02/25 03:00 Nasal Cannula 3 03/02/25 01:00 Nasal Cannula 3 03/02/25 00:00 03/02/25 00:00 Nasal Cannula 3 03/01/25 23:00 Nasal Cannula 3 03/01/25 21:00 Nasal Cannula 3 03/01/25 20:00 03/01/25 20:00 Nasal Cannula 3 03/01/25 20:00 Nasal Cannula 3 03/01/25 18:52 Nasal Cannula 3 03/01/25 18:13 Nasal Cannula 3 32 03/01/25 17:10 Nasal Cannula 3 Intake and Output 03/02/25 03/02/25 03/02/25 07:59 15:59 23:59 Intake Total 340 / 700 360 / 700 Output Total 300 / 2400 1750 / 2400 350 / 2400 Balance 40 / -1700 -1390 / -1700 -350 / -1700 Intake: Intake, Oral Amount 240 / 600 360 / 600 Intake, Total IV Amount 100 / 100 Meropenem 1 gm In 0.9 % Sodium 100 / 100 Chloride 100 ml @ 100 mls/hr IV Q8H [facility] Rx#:[id number] Output: Output, Urine Amount 300 / 2400 1750 / 2400 350 / 2400 Other: Number of Unmeasured Voids 0 0 0 Weight 107.365 kg Patient Weight 03/02/25 23:59 Weight 107.365 kg Laboratory Results - last 24 hr 03/02/25 05:51: WBC 5.6 D, RBC 4.07 L, Hgb 11.8 L, Hct 38.2 L, MCV 93.9, MCH 29.0, MCHC 30.9 L, RDW 13.3, Plt Count 219, MPV 9.5, Neut % (Auto) 65.6, Lymph % (Auto) 19.6, White % (Auto) 10.4 H, Eos % (Auto) 3.2, Baso % (Auto) 0.5, Neut # (Auto) 3.7, Lymph # (Auto) 1.1, White # (Auto) 0.6, Eos # (Auto) 0.2, Baso # (Auto) 0.0, Sodium 137, Potassium 3.8, Chloride 88 L, Carbon Dioxide 46 H*, Anion Gap 6.8, BUN 21 H, Creatinine 1.00, Estimated Creat Clear 104, Estimated GFR 74, Est GFR ( Amer) 89, Glucose 128 H, Calcium 8.1 L, Magnesium 2.0 D, Total Bilirubin 0.3, AST 24, ALT 11 L, Alkaline Phosphatase 198 H, Total Protein 6.9, Albumin 3.1 L, Globulin 3.8 H, Albumin/Globulin Ratio 0.8 L I & O for Labs for Last 24 Hours: Intake & Output 02/27/25 02/28/25 03/01/25 03/02/25 23:59 23:59 23:59 23:59 Intake Total 1240 / 1480 1160 / 1160 700 / 700 Output Total 2600 / 2600 5350 / 5350 2400 / 2400 Balance -1360 / -1120 -4190 / -4190 -1700 / -1700 Weight 117.934 kg 109.2 kg 109.486 kg 107.365 kg Microbiology Reports for the Last 24 Hours: Microbiology 02/27/25 21:57 Blood Blood Culture - Preliminary NO GROWTH AFTER 48 HOURS 02/27/25 21:50 Blood Blood Culture - Preliminary NO GROWTH AFTER 48 HOURS Constitutional: Present no acute distress, obese, chronically ill appearing and cooperative Head: Present atraumatic and normocephalic ENT: Present normal exam Neck: Present normal inspection Respiratory: Present prolonged expiratory phase, crackles (bases) and diminished air movement; Absent rhonchi or wheezes Cardiac: Present Regular Rhythm and Tachycardia GI: Present soft and normal bowel sounds; Absent distention or tenderness Comments:: bilateral pannus hematomas, non-tender, no warmth (male): Present deferred Extremities: Absent edema Skin: Present intact and warm Comment:: lesions on legs, chronic with scabbing Neuro: Present Grossly Intact, alert, awake, oriented x 3 and moves all extremities Assessment and Plan *Assessment and plan (1) Encephalopathy acute: Status: Acute Category: Medical Code(s): G93.40 - Encephalopathy, unspecified (2) Acute on chronic respiratory failure with hypoxia and hypercapnia: Status: Acute Category: Medical Code(s): J96.21 - Acute and chronic respiratory failure with hypoxia; J96.22 - Acute and chronic respiratory failure with hypercapnia (3) Type 2 diabetes mellitus with vascular disease: Status: Chronic Category: Medical Code(s): E11.59 - Type 2 diabetes mellitus with other circulatory complications (4) Atrial fibrillation: Status: Acute Category: Medical Code(s): I48.91 - Unspecified atrial fibrillation (5) Chronic diastolic CHF (congestive heart failure): Status: Chronic Category: Medical Code(s): I50.32 - Chronic diastolic (congestive) heart failure (6) Hematoma: Problem Comment: Anticoagulation is being withheld due to the hematoma. Status: Deleted Category: Medical Code(s): T14.8XXA - Other injury of unspecified body region, initial encounter (7) HIV disease: Status: Chronic Category: Medical Code(s): B20 - Human immunodeficiency virus [HIV] disease (8) Hypertension: Status: Acute Qualifiers: Hypertension type: primary hypertension Qualified Code(s): I10 - Essential (primary) hypertension Category: Medical Code(s): I10 - Essential (primary) hypertension (9) Bradycardia: Status: Acute Category: Medical Code(s): R00.1 - Bradycardia, unspecified (10) Syncope: Status: Acute Category: Medical Code(s): R55 - Syncope and collapse (11) Hyponatremia: Status: Acute Category: Medical Code(s): E87.1 - Hypo-osmolality and hyponatremia (12) FRANNIE (acute kidney injury): Status: Acute Category: Medical Code(s): N17.9 - Acute kidney failure, unspecified Plan 69-year-old male with multiple chronic medical conditions including poorly controlled type 2 diabetes, HIV, CHF, COPD, ABEL, pharmacy and frequent falls. Presented to the ER due to confusion, decreased responsiveness. Showing some improvement this morning. Continues to require inpatient management. Problems addressed as follows: Acute on chronic heart failure with preserved ejection fraction Atrial flutter Hypertension - Rate showing some response to increased dose of metoprolol. Continue metoprolol succinate 100 mg twice daily. Continue Bumex 2 mg twice daily. Initiated on digoxin 250 mcg IV once, continue 125 mcg daily -Therapeutic anticoagulation with Lovenox. Will discuss risks and benefits of oral DOAC prior to discharge Hyponatremia: Sodium 137, chloride 88. Potassium 3.8. Kidney function normal with BUN 21, creatinine 1. Magnesium 2.0. Repeat CBC, CMP, magnesium ordered for the morning. HIV: On Biktarvy. Continue home regimen. CD4 count ordered along with viral load, results pending; Most recent CD4 count of 315, concern is getting low and putting him at risk for AIDS. Complicates all aspects of his care Hematoma, left lower abdominal wall - Surgery consulted to evaluate lesions in abdomen given CT findings showing stranding. Awaiting for studies of cultures obtained from abdomen wounds/lesions; cultures remain negative. - White count normalized, 5.6. Hemoglobin 11.8. - Continue meropenem 1 g every 8 hours empirically for coverage pending culture Decompensated Respiratory Failure (Acute on Chronic) Loculated effusion, seen on CT -Patient transitioned to Suboxone patch, dose increased several days before admission. Concerned this is complicating his confusion and adding sedative component. Caution with polypharmacy. - On 3 L oxygen. Baseline 2 to 3 L. Wean as tolerated for goal sats greater 90%. Altered Mental Status (Encephalopathy), resolved -Consistent with toxic encephalopathy due to polypharmacy versus infection. Compounded by past medical history of dementia, COPD, CHF. - Resume gabapentin at lower dose of 300 mg 3 times a day as needed - Caution with oversedation of polypharmacy PT and OT evaluate patient every visit. He is adamant he will go home. Has no desire to go to placement. No consult placed at this visit given patient's clear goals for discharging home. Nursing assisting with getting patient out of bed to chair. Ambulating with support. Full code Diabetic diet TLOV
[2025-03-02] MEDS: DIGOXIN 0.25MG/ML 2ML AMPUL 250 MCG IV (17:35)
[2025-03-02] MEDS: PT OWN MED *PANTOPRAZOLE 40 MG TAB 1 EACH PO (20:09)
[2025-03-02] MEDS: TAMSULOSIN 0.4 MG 1 EACH PO (20:10)
[2025-03-03] VITALS: BP 138/69; PULSE 80; PULSE 85; RESP 23; TEMP 36.4; O2SAT 99
[2025-03-03] MEDS: MEROPENEM 1 GM in 0.9 % SODIUM CHLORIDE 100 ML IV ×2 (01:30→09:13)
[2025-03-03] MEDS: ACETAMINOPHEN 325MG TAB 650 MG PO ×2 (01:38→09:05)
[2025-03-03 04:00] VITALS: BP 117/61; PULSE 70; PULSE 90; RESP 19; TEMP 36.7; O2SAT 99; BMI 38.9
--- NOTE | 2025-03-03 04:04 | PC.NURSE ---
Pt alert & oriented x4. Pt is 3L/NC. Pt is a fib on telemetry, pt has remained at a HR around 110 to 120's Pt was covered with 12 units of sliding scale insulin at 2100. Pt complained of pain twice, medicated per MAR. Pt showered by tech. No further concerns voiced at this time. Pt resting with call man in reach. Plan of care ongoing.
[2025-03-03] MEDS: humaLOG 100 UNITS/ML 10ML VIAL (SSI) SUBCUT (05:14)
--- NOTE | 2025-03-03 05:26 | PC.NURSE ---
Pt is alert and oriented x4. Pt is on 3L/NC. Pt is on telemetry, pt's heart rate has been between the 110's to 120's majority of the shift, but as of now has came down to arod the 70's/80's. pt complained of pain twice, medicated per NOV. Pt received 12 units of insulin at 2100 and 5 units at 0515. Pt resting in bed call man within reach. Plan of care ongoing.
[2025-03-03 06:11] LABS: Hematocrit 39.4 % (42.0-52.0); Hemoglobin 12.3 g/dL (14.1-18.0); Immature Granulocytes % 0.5 %; Mean Corpuscular HGB Conc 31.2 g/dL (31.8-35.4); Mean Corpuscular Hemoglobin 28.9 pg (27.0-31.2); Mean Corpuscular Volume 92.7 fl (80-94); Nucleated Red Blood Cells % 0 %; Platelet Count 217 K/mm3 (142-424); Red Blood Count 4.25 M/mm3 (4.60-6.20); Red Cell Distribution Width-SD 45.4 fL; White Blood Count 6.1 K/mm3 (4.8-10.8)
[2025-03-03 06:24] LABS: Alanine Aminotransferase 10 U/L (12-78); Albumin Level 2.9 g/dl (3.5-5.0); Albumin/Globulin Ratio 0.7 (1.1-1.8); Alkaline Phosphatase 192 U/L (38-126); Aspartate Amino Transferase 23 U/L (17-59); Bilirubin,Total 0.4 mg/dl (0.2-1.3); Blood Urea Nitrogen 17 mg/dl (9-20); Calcium 8.7 mg/dl (8.4-10.2); Chloride 85 mmol/L (98-107); Creatinine Clearance Estimated 103 mL/min (50-200); Creatinine,Serum 1.00 mg/dl (0.66-1.25); Estimated Glomerular Filt Rate 74 ml/min (>60); GFR (African American) 89 ML/MIN (>60); Globulin 4.0 g/dL (1.3-3.2); Glucose 139 mg/dl (74-100); Potassium 3.8 mmoL/L (3.5-5.1); Sodium 133 mmol/L (136-145); Total Protein,Serum 6.9 g/dl (6.3-8.2)
[2025-03-03 06:52] LABS: Anion Gap 4.8 mEq/L (5-15); Carbon Dioxide 47 mmol/L (22.0-30.0)
[2025-03-03 08:00] VITALS: BP 147/80; PULSE 78; RESP 18; TEMP 36.4; O2SAT 93
--- NOTE | 2025-03-03 08:33 | EXP.PHA.PN ---
Subjective *Date: 03/03/25 *Time: 08:33 Medical Exam Vital signs and Labs for Last 24 Hours: Vital Signs Temp Pulse Pulse Resp BP Pulse Ox O2 Del Method 03/03/25 08:00 97.6 F 78 18 147/80 H 93 L Nasal Cannula 03/03/25 07:38 Nasal Cannula 03/03/25 06:43 Nasal Cannula 03/03/25 05:00 Nasal Cannula 03/03/25 04:00 70 03/03/25 04:00 98.0 F 90 19 117/61 99 Nasal Cannula 03/03/25 03:00 Nasal Cannula 03/03/25 01:00 Nasal Cannula 03/03/25 00:00 80 03/03/25 00:00 97.5 F L 85 23 138/69 99 Nasal Cannula 03/02/25 23:00 Nasal Cannula 03/02/25 21:00 Nasal Cannula 03/02/25 20:00 110 H 03/02/25 20:00 98.3 F 113 H 12 127/70 96 Nasal Cannula 03/02/25 20:00 Nasal Cannula 03/02/25 17:35 127 H 03/02/25 17:00 Nasal Cannula 03/02/25 16:00 112 H 03/02/25 16:00 98.6 F 110 H 16 131/94 H 98 Nasal Cannula 03/02/25 15:00 Nasal Cannula 03/02/25 13:00 Nasal Cannula 03/02/25 12:00 128 H 03/02/25 12:00 97.8 F 118 H 16 116/80 97 Nasal Cannula 03/02/25 11:00 Nasal Cannula 03/02/25 10:30 121 H 18 03/02/25 09:00 Nasal Cannula O2 Flow Rate 03/03/25 08:00 3 03/03/25 07:38 03/03/25 06:43 3 03/03/25 05:00 3 03/03/25 04:00 03/03/25 04:00 3 03/03/25 03:00 3 03/03/25 01:00 3 03/03/25 00:00 03/03/25 00:00 3 03/02/25 23:00 3 03/02/25 21:00 3 03/02/25 20:00 03/02/25 20:00 3 03/02/25 20:00 3 03/02/25 17:35 03/02/25 17:00 3 03/02/25 16:00 03/02/25 16:00 3 03/02/25 15:00 3 03/02/25 13:00 3 03/02/25 12:00 03/02/25 12:00 3 03/02/25 11:00 3 03/02/25 10:30 03/02/25 09:00 3 Intake and Output 03/02/25 03/03/25 03/03/25 23:59 07:59 15:59 Intake Total 360 / 1060 1000 / 1000 Output Total 1875 / 3925 300 / 300 Balance -1515 / -2865 700 / 700 Intake: Intake, Oral Amount 360 / 960 1000 / 1000 Output: Output, Urine Amount 1875 / 3925 300 / 300 Other: Number of Unmeasured Voids 0 0 Number of Bowel Movements 1 Weight 106.141 kg Patient Weight 03/03/25 23:59 Weight 106.141 kg Laboratory Results - last 24 hr 03/03/25 05:37: WBC 6.1, RBC 4.25 L, Hgb 12.3 L, Hct 39.4 L, MCV 92.7, MCH 28.9, MCHC 31.2 L, RDW 13.4, Plt Count 217, MPV 9.5, Neut % (Auto) 64.9, Lymph % (Auto) 20.4, [place] % (Auto) 10.1 H, Eos % (Auto) 3.3, Baso % (Auto) 0.8, Neut # (Auto) 4.0, Lymph # (Auto) 1.3, [place] # (Auto) 0.6, Eos # (Auto) 0.2, Baso # (Auto) 0.1, Sodium 133 L, Potassium 3.8, Chloride 85 L, Carbon Dioxide 47 H*, Anion Gap 4.8 L, BUN 17, Creatinine 1.00, Estimated Creat Clear 103, Estimated GFR 74, Est GFR ( Amer) 89, Glucose 139 H, Calcium 8.7, Total Bilirubin 0.4, AST 23, ALT 10 L, Alkaline Phosphatase 192 H, Total Protein 6.9, Albumin 2.9 L, Globulin 4.0 H, Albumin/Globulin Ratio 0.7 L I & O for Labs for Last 24 Hours: Intake & Output 06/28/03/01/25 03/02/25 03/03/25 23:59 23:59 23:59 23:59 Intake Total 1240 / 1480 1160 / 1160 1060 / 1060 1000 / 1000 Output Total 2600 / 2600 5350 / 5350 3925 / 3925 300 / 300 Balance -1360 / -1120 -4190 / -4190 -2865 / -2865 700 / 700 Weight 109.2 kg 109.486 kg 107.365 kg 106.141 kg The patient's infection will respond to the chosen ABx?: Yes Is the patient receiving the right drug, dose, and route?: Yes Could a more targeted ABx be ordered?: No (AFEBRILE, WBC WNL)
[2025-03-03 09:00] VITALS: PULSE 83
[2025-03-03] MEDS: DIGOXIN 0.125MG TABLET 125 MCG PO (09:00)
[2025-03-03] MEDS: METOPROLOL SUCCINATE XL 100MG TABLET 100 MG PO (09:00)
[2025-03-03] MEDS: FUROSEMIDE 40MG/4ML VIAL 40 MG IV (09:00)
[2025-03-03] MEDS: ENOXAPARIN 120MG/0.8ML SYRINGE 110 MG SUBCUT (09:00)
[2025-03-03] MEDS: ASPIRIN EC 81MG TABLET 81 MG PO (09:00)
[2025-03-03] MEDS: BIKTARVY 1 EACH PO (09:01)
[2025-03-03] MEDS: VENLAFAXINE 150 MG 1 EACH PO (09:02)
[2025-03-03] MEDS: FINASTERIDE 5 MG 1 EACH PO (09:03)
[2025-03-03] MEDS: GABAPENTIN 300MG CAPSULE 300 MG PO ×2 (09:05→12:38)
--- NOTE | 2025-03-03 09:56 | EXP.DC.SUM ---
General Admission date:: 02/27/25 Discharge date: 03/03/25 HPI HPI HPI: from Admission H&P HPI: Mr. Love is a 69-year-old male presents the ER for evaluation of altered mental status. Patient has past medical history of hypertension, hyperlipidemia, COPD, HIV, CHF, COPD, type 2 diabetes, and atrial fibrillation. Unable to obtain history from patient as he is currently resting on BiPAP. History obtained from ER physician. States that family said patient was less responsive today when they went to check on patient. Patient's oxygen was low. EMS was called. EMS reported that oxygen was in the 70s. Patient does not use supplemental oxygen at home. ER provider states patient is currently on CPAP satting in high 90s. Reports he was initially treated with IV fluids but made hypotension worse. Was given Lasix IV. Mr. Love is a 69-year-old male with medical history significant for HIV, COPD, hypertension, hyperlipidemia, CHF, type 2 diabetes, and atrial fibrillation who was admitted with altered mental status. He arrived via EMS, and was found to be hypoxic. History is obtained from patient, and his daughter. She reports that he has received Lovenox shots in his lower abdomen/pannus, and that he has had 2 hard knots from previous injections. These have been followed over several months with physical exam and ultrasound. As part of his mental status change workup, he had a CT scan, which revealed fluid collection of indeterminate identity under these palpable areas. Hospital Course Hospital Course Hospital Course: 69-year-old male with multiple chronic medical conditions including poorly controlled type 2 diabetes, HIV, CHF, COPD, ABEL, pharmacy and frequent falls. Presented to the ER due to confusion, decreased responsiveness. Showed gradual improvement in mentation during admission. Of note he recently had his buprenorphine patch increased in dosage. Concern for polypharmacy as a culprit. Patient would also benefit from outpatient sleep study to evaluate for ABEL and consider treatment with CPAP/BiPAP at home. No signs of infection identified. Back to baseline oxygen. Mentation improved. Stable discharge home. Problems addressed as follows: Acute on chronic heart failure with preserved ejection fraction Atrial flutter Hypertension - Difficult to control rate initially during admission. Metoprolol succinate was gradually increased to 100 mg twice daily. Patient was diuresed during admission. Had good response. Digoxin was resumed. Loaded with 250 mcg IV once and continue to 125 mcg daily. Discussed risks and benefits of anticoagulation. Patient has higher fall risk. Anticoagulation is only been held. Will continue to hold at this time due to fall risk. - Rate control less than 100 by day of discharge Hyponatremia: Sodium improved during admission. 137 on day of discharge. Chloride 85. HIV: On Biktarvy. Continue home regimen. Viral load found to be less than 20, undetectable. Appears to have good compliance with medication and suppression of disease. Absolute CD4 count of 429. Improved from previous level of 315. Hematoma, left lower abdominal wall - Surgery consulted to evaluate lesions in abdomen given CT findings showing stranding. Cultures obtained. Negative. Hematomas do not appear to be infected. White count remained normal during admission. Hemoglobin stable at 11-12. Treated with meropenem during admission. Antibiotics were discontinued at discharge due to no focal sign of infection, negative cultures, normal white count Decompensated Respiratory Failure (Acute on Chronic) Loculated effusion, seen on CT, chronic -Patient transitioned to Suboxone patch, dose increased several days before admission. Concerned this is complicating his confusion and adding sedative component. Caution with polypharmacy. On 3 L oxygen. Baseline 2 to 3 L. Wean as tolerated for goal sats greater 90%. Altered Mental Status (Encephalopathy), resolved -Consistent with toxic encephalopathy due to polypharmacy versus infection. Compounded by past medical history of dementia, COPD, CHF. Resume gabapentin at lower dose of 300 mg 3 times a day as needed. Caution with oversedation of polypharmacy. Recommend discontinuing tramadol. In conjunction with his buprenorphine use, not sure the effectiveness of this medication. Concern for side effect with no benefit. PT and OT evaluate patient every visit. He is adamant he will go home. Has no desire to go to placement. No consult placed at this visit given patient's clear goals for discharging home. Nursing assisting with getting patient out of bed to chair. Ambulating with support. Total time spent on discharge 32 minutes in counseling, documentation, chart review, and direct care with patient. Exam Data for Last 24 hours Vital signs and Labs for Last 24 Hours: Temp Pulse Resp BP Pulse Ox O2 Del Method O2 Flow Rate 97.6 F 127 H 20 137/78 97 Nasal Cannula 3 03/02/25 04:00 03/02/25 04:00 03/02/25 04:00 03/02/25 04:00 03/02/25 04:00 03/02/25 06:49 03/02/25 06:49 FiO2 32 03/01/25 18:13 Laboratory Results - last 24 hr 03/02/25 05:51: WBC 5.6 D, RBC 4.07 L, Hgb 11.8 L, Hct 38.2 L, MCV 93.9, MCH 29.0, MCHC 30.9 L, RDW 13.3, Plt Count 219, MPV 9.5, Neut % (Auto) 65.6, Lymph % (Auto) 19.6, Greer % (Auto) 10.4 H, Eos % (Auto) 3.2, Baso % (Auto) 0.5, Neut # (Auto) 3.7, Lymph # (Auto) 1.1, Greer # (Auto) 0.6, Eos # (Auto) 0.2, Baso # (Auto) 0.0, Sodium 137, Potassium 3.8, Chloride 88 L, Carbon Dioxide 46 H*, Anion Gap 6.8, BUN 21 H, Creatinine 1.00, Estimated Creat Clear 104, Estimated GFR 74, Est GFR ( Amer) 89, Glucose 128 H, Calcium 8.1 L, Magnesium 2.0 D, Total Bilirubin 0.3, AST 24, ALT 11 L, Alkaline Phosphatase 198 H, Total Protein 6.9, Albumin 3.1 L, Globulin 3.8 H, Albumin/Globulin Ratio 0.8 L I & O for Last 24 hours: Intake & Output 02/27/25 02/28/25 03/01/25 03/02/25 23:59 23:59 23:59 23:59 Intake Total 1240 / 1480 1160 / 1160 340 / 340 Output Total 2600 / 2600 5350 / 5350 300 / 300 Balance -1360 / -1120 -4190 / -4190 40 / 40 Weight 117.934 kg 109.2 kg 109.486 kg 107.365 kg Microbiology Reports for the Last 24 Hours: Microbiology 02/27/25 21:57 Blood Blood Culture - Preliminary NO GROWTH AFTER 48 HOURS 02/27/25 21:50 Blood Blood Culture - Preliminary NO GROWTH AFTER 48 HOURS 02/27/25 21:45 Urine,Clean Catch Urine Culture - Final No growth. Constitutional Constitutional: no acute distress, obese, chronically ill appearing, disheveled and cooperative *Routine HEENT Exam Head: Present normocephalic Eye: Present EOMI and PERRL ENT: Present mucous membranes moist *Routine Neck Exam Neck: Present supple; Absent lymphadenopathy *Routine Respiratory Exam Respiratory: Present CTA bilaterally; Absent rhonchi, wheezes or crackles *Routine Cardiovascular Exam Cardiovascular: Present irregularly irregular *Routine Abdominal Exam Abdominal: Present soft, normoactive bowel sounds and tenderness Comments: bilateral lower quadrant abdominal protrusion/Hematoma of pannus, no erythema, mild TTP. no warmth. *Routine Rectal Exam Patient deferred: visual exam *Routine Exam Patient deferred: penile exam *Routine Extremities Exam Extremities: Absent cyanosis, clubbing or edema *Routine Skin Exam Skin: Present warm; Absent rash *Routine Neurological Exam Neurological: Present alert, oriented X3 and moving all extremities; Absent altered mental status Results Data Completed and Pending Labs on day of discharge: Labs from last 24 hours 03/02/25 05:51 WBC 5.6 D RBC 4.07 L Hgb 11.8 L Hct 38.2 L MCV 93.9 MCH 29.0 MCHC 30.9 L RDW 13.3 Plt Count 219 MPV 9.5 Neut % (Auto) 65.6 Lymph % (Auto) 19.6 Greer % (Auto) 10.4 H Eos % (Auto) 3.2 Baso % (Auto) 0.5 Neut # (Auto) 3.7 Lymph # (Auto) 1.1 Greer # (Auto) 0.6 Eos # (Auto) 0.2 Baso # (Auto) 0.0 Sodium 137 Potassium 3.8 Chloride 88 L Carbon Dioxide 46 H* Anion Gap 6.8 BUN 21 H Creatinine 1.00 Estimated Creat Clear 104 Estimated GFR 74 Est GFR ( Amer) 89 Glucose 128 H Calcium 8.1 L Magnesium 2.0 D Total Bilirubin 0.3 AST 24 ALT 11 L Alkaline Phosphatase 198 H Total Protein 6.9 Albumin 3.1 L Globulin 3.8 H Albumin/Globulin Ratio 0.8 L Preliminary micro results at discharge 02/27/25 21:57 Blood Culture - Preliminary Blood NO GROWTH AFTER 48 HOURS 02/27/25 21:50 Blood Culture - Preliminary Blood NO GROWTH AFTER 48 HOURS DS: Diagnosis Discharge Diagnosis (1) Encephalopathy acute: Status: Resolved Code(s): G93.40 - Encephalopathy, unspecified (2) Acute on chronic respiratory failure with hypoxia and hypercapnia: Status: Resolved Code(s): J96.21 - Acute and chronic respiratory failure with hypoxia; J96.22 - Acute and chronic respiratory failure with hypercapnia (3) Type 2 diabetes mellitus with vascular disease: Status: Chronic Code(s): E11.59 - Type 2 diabetes mellitus with other circulatory complications (4) Atrial fibrillation: Status: Acute Code(s): I48.91 - Unspecified atrial fibrillation (5) Chronic diastolic CHF (congestive heart failure): Status: Chronic Code(s): I50.32 - Chronic diastolic (congestive) heart failure (6) Hematoma: Status: Deleted Code(s): T14.8XXA - Other injury of unspecified body region, initial encounter Problem details: Anticoagulation is being withheld due to the hematoma. (7) HIV disease: Status: Chronic Code(s): B20 - Human immunodeficiency virus [HIV] disease (8) Hypertension: Status: Acute Code(s): I10 - Essential (primary) hypertension Qualifiers: Hypertension type: primary hypertension Qualified Code(s): I10 - Essential (primary) hypertension (9) Bradycardia: Status: Acute Code(s): R00.1 - Bradycardia, unspecified (10) Syncope: Status: Acute Code(s): R55 - Syncope and collapse (11) Hyponatremia: Status: Acute Code(s): E87.1 - Hypo-osmolality and hyponatremia (12) FRANNIE (acute kidney injury): Status: Acute Code(s): N17.9 - Acute kidney failure, unspecified Meds Home Medications and Allergies Home Medications ?Medication ?Instructions ?Recorded ?Confirmed ?Type finasteride 5 mg tablet 5 mg PO DAILY 11/13/18 02/28/25 History tamsulosin 0.4 mg capsule 0.4 mg PO HS 01/06/20 02/28/25 History methocarbamol 750 mg tablet 750 mg PO Q6HP PRN Muscle Spasm 11/26/20 02/28/25 History cholecalciferol (vitamin D3) 25 25 mcg PO DAILY 12/30/20 02/28/25 History mcg (1,000 unit) capsule venlafaxine 150 mg 150 mg PO DAILY 09/16/23 02/28/25 History capsule,extended release 24 hr (Effexor XR) tramadol 50 mg tablet 50 mg PO 0900,1700 08/19/24 02/28/25 History Held on 03/03/25. Instructions: Would recommend holding, as he is Suboxone patch I question the efficacy of this medication other than causing increased fall risk and respiratory depression albuterol sulfate 90 mcg/actuation 1 inh inhalation QIDP PRN 08/20/24 02/28/25 History aerosol inhaler Shortness Of Breath sitagliptin 100 mg tablet 100 mg PO DAILY 08/20/24 02/28/25 History pantoprazole 40 mg tablet,delayed 40 mg PO DAILY 30 days #0 tabs 08/23/24 02/28/25 Rx release aspirin 81 mg capsule 81 mg PO DAILY 11/04/24 02/28/25 History bictegravir 50 mg-emtricitabine 1 tab PO DAILY 11/04/24 02/28/25 History 200 mg-tenofovir alafenam 25 mg tablet (Biktarvy) gabapentin 300 mg capsule 600 mg PO 1700 11/04/24 02/28/25 History gabapentin 300 mg capsule 900 mg PO 0900,2100 11/04/24 02/28/25 History lidocaine 5 % topical patch 2 patch topical DAILY 11/04/24 02/28/25 History tiotropium 2.5 mcg-olodaterol 2.5 2 puff inhalation DAILY 11/04/24 02/28/25 History mcg/actuation mist for inhalation (Stiolto Respimat) tramadol 50 mg tablet 75 mg PO HS 11/04/24 02/28/25 History Held on 03/03/25. Instructions: Would recommend holding, as he is Suboxone patch I question the efficacy of this medication other than causing increased fall risk and respiratory depression bumetanide 2 mg tablet 2 mg PO BIDL 30 days #60 tabs 11/05/24 02/28/25 Rx Bifidobacterium longum 10 million 10 cell PO DAILY 02/28/25 02/28/25 History cell capsule (Align (B.longum)) buprenorphine 7.5 mcg/hour weekly 1 patch transdermal WEEKLY 02/28/25 02/28/25 History transdermal patch omega-3 fatty acids 1,200 mg PO DAILY 02/28/25 02/28/25 History digoxin 125 mcg (0.125 mg) tablet 125 mcg PO DAILY 30 days #30 tabs 03/03/25 Rx metoprolol succinate 100 mg 100 mg PO BID 30 days #60 tabs 03/03/25 Rx tablet,extended release 24 hr New Prescriptions to Start Prescriptions: Negrito Souza metoprolol succinate Negrito Patricio Allergies Allergy/AdvReac Type Severity Reaction Status Date / Time SANDRA Inhibitors Allergy Unknown Unknown Verified 02/27/25 20:15 allergy reaction clofibrate Allergy Unknown Unknown Verified 02/27/25 20:15 allergy reaction enalapril Allergy Unknown Unknown Verified 02/27/25 20:15 allergy reaction erythromycin base Allergy Unknown Unknown Verified 02/27/25 20:15 allergy reaction gemfibrozil Allergy Unknown Unknown Verified 02/27/25 20:15 allergy reaction hepatitis A virus vaccine Allergy Unknown Unknown Verified 02/27/25 20:15 allergy reaction hydralazine Allergy Unknown Unknown Verified 02/27/25 20:15 allergy reaction Macrolide Antibiotics Allergy Unknown Unknown Verified 02/27/25 20:15 allergy reaction pravastatin (From Pravachol) Allergy Unknown Unknown Verified 02/27/25 20:15 allergy reaction Bqpmguv-EAB-CkF Reductase Allergy Unknown Unknown Verified 02/27/25 20:15 Inhibitor (Xdqyvjd-Ata-Avm allergy Reductase Inhibitor) reaction Discharge Plan Disposition Patient Disposition: Home Health Service Condition: Fair Discharge Order Discharge Orders: Discharge Order (Routine); Ordered 03/03/25 Ordered By: Negrito Patricio Follow up Plan Follow up with: Bruce Faith MD [Staff Physician, Medical] - 03/09/25 11:30 am Prescriptions/Medication Reconciliation: New metoprolol succinate 100 mg Tablet Extended Release 24 Hr 100 mg PO BID 30 Days Qty: 60 0RF digoxin 125 mcg (0.125 mg) Tablet 125 mcg PO DAILY 30 Days Qty: 30 0RF Continued cholecalciferol (vitamin D3) 25 mcg (1,000 unit) capsule 25 mcg PO DAILY finasteride 5 MG tablet 5 mg PO DAILY tamsulosin 0.4 MG capsule 0.4 mg PO HS methocarbamol 750 MG tablet 750 mg PO Q6HP PRN (Reason: Muscle Spasm) albuterol sulfate 90 mcg/actuation Hfa Aerosol Inhaler 1 inh INHALATION QIDP PRN (Reason: Shortness Of Breath) sitagliptin 100 mg Tablet 100 mg PO DAILY pantoprazole 40 MG tablet,delayed release (DR/EC) 40 mg PO DAILY 30 Days Qty: 0 0RF lidocaine 5 % Adhesive Patch,Medicated 2 patch TOPICAL DAILY Rx Instructions: leave on most painful area for up to 12 hrs Biktarvy 50-200-25 mg Tablet 1 tab PO DAILY aspirin 81 mg Capsule 81 mg PO DAILY Stiolto Respimat 2.5-2.5 mcg/actuation Mist 2 puff INHALATION DAILY gabapentin 300 mg Capsule 900 mg PO 0900,2100 gabapentin 300 mg Capsule 600 mg PO 1700 bumetanide 2 mg Tablet 2 mg PO BIDL 30 Days Qty: 60 0RF Rx Instructions: ONE TABLET BY MOUTH DAILY, TAKE ADDITIONAL EVENING DOSE FOR WEIGHT GAIN OF 3 LB IN 24 HOURS OR 5 LB IN A WEEK. venlafaxine [Effexor XR] 150 mg Capsule,Extended Release 24hr 150 mg PO DAILY omega-3 fatty acids Capsule 1,200 mg PO DAILY Align (B.longum) 10 million cell Capsule 10 cell PO DAILY buprenorphine 7.5 mcg/hour Patch Weekly 1 patch TRANSDERMAL WEEKLY Rx Instructions: LAST PATCH PLACED 02/23/25 Held tramadol 50 mg tablet 50 mg PO 0900,1700 Hold Instructions: Would recommend holding, as he is Suboxone patch I question the efficacy of this medication other than causing increased fall risk and respiratory depression Patient Comments: 50 MG orally every 6 hours as needed As Needed for Severe Pain (Scale Score 7-10) for 30 days Rx Instructions: TAKE 1 TABLET PO EVERY MORNING, TAKE 1 TABLET EVERY EVENING, TAKE 1.5 TABLETS AT BEDTIME FOR PAIN tramadol 50 mg Tablet 75 mg PO HS Hold Instructions: Would recommend holding, as he is Suboxone patch I question the efficacy of this medication other than causing increased fall risk and respiratory depression Discontinued metoprolol tartrate 100 mg Tablet 50 mg PO BID Problem Reconciliation Problems Reviewed?: Yes Patient Discharge Instructions ACTIVITY: Continue current activity DIET: continue same diet Patient Instructions: DI for Hyponatremia, DI for Acute Kidney Injury, Stop Light Pneumonia, Stop Light Heart Failure Print Language: Turkish Providers Primary Care Provider: Provider,Referral Admit Provider: Negrito Patricio Attending Provider: Negrito Patricio
--- NOTE | 2025-03-03 14:13 | HMH.PTWOUND ---
Rehab Inpt Wound Evaluation Rehab IP Wound Evaluation Start: 02/28/25 00:35 Freq: ONCE Status: Active Protocol: Document 03/03/25 14:11 PHOMAO (Rec: 03/03/25 14:13 PHORANAYELI [id number]) Rehab PT Wound Assessment Subjective Subjective 69 year old male w/ a PMH of hypertension, hyperlipidemia, COPD, HIV, CHF, COPD, type 2 diabetes, and atrial fibrillation who presents to [facility] ICU w/ an altered mental status. Pt. also c/o increasing number of falls over the last few weeks secondary to spaghetti legs. Pt. c/o sudden onset of weakness in BLEs w/ activities on his feet. However, pt. c/o what brought him to [facility] is his altered mental status that just kept getting worse. Pt. reports he remembers sitting outside on his front porch yesterday(02/27/25) when symptoms started worsening. Pt. c/o of the heat not helping the situation. Pt. reports he lives at home with his , states he was IND. w/ ADLs prior to the increasing number of falls he has been complaining of. Pt. reports he uses a rollator at home and when he leaves the house. Pt. reports having 1 step up into/ out of the house, where he was assistance in front of him and behind him while negotiating the step. Pt. vocalizes living in a 1-story home. Pt presents with multiple wounds in various stages of healing upon admission. All wounds are dry and scabbed over at this time. Plan/Recommendation Comment Multiple wounds are scabbed and not open currently. There is no present need for sharp excisional debridement of any wounds at this time. Will defer to further nsg care as appropriate. No acute therapy wound care needs currently. PHYSICIAN CERTIFICATION: I certify the specified therapy services for Rachid Guerrero Ivan MEDINA are required, authorized, and reviewed every 30 days.
[2025-03-03 15:12] LABS: % CD19 + Lymphs 3.8 % (3.3-25.4); % CD3 Positive Lymphs 68.7 % (57.5-86.2); % CD8 Positive Lymphs 41.6 % (12.0-35.5); Abs. Basophils 0.1 x10E3/uL (0.0-0.2); Abs. Eosinophils 0.2 x10E3/uL (0.0-0.4); Abs. Immature Granulocytes 0.0 x10E3/uL (0.0-0.1); Abs. Lymphocytes 1.5 x10E3/uL (0.7-3.1); Abs. Monocytes 0.9 x10E3/uL (0.1-0.9); Abs. Neutrophil 9.5 x10E3/uL (1.4-7.0); Abs.CD19+Lymphs 57 /uL (12-645); CD4/CD8 Ratio 0.69 (0.92-3.72); HCT 35.4 % (37.5-51.0); HGB 11.1 g/dL (13.0-17.7); MCH 29.1 pg (26.6-33.0); MCHC 31.4 g/dL (31.5-35.7); MCV 93 fL (79-97); RBC 3.82 x10E6/uL (4.14-5.80); RDW 13.2 % (11.6-15.4); WBC 12.1 x10E3/uL (3.4-10.8)
[2025-03-04 03:38] LABS: HIV 1 RNA, Real time PCR <20 copies/mL (.)
--- NOTE | 2025-03-04 10:20 | SW/DCPLANNER ---
Spoke with patient on the phone. Patient stated that he is doing well. Patient stated that he is aware of his upcoming appointment. Patient stated that he was able to get his new medicine picked up from clinic pharmacy. Patient stated that he has no concerns or questions at this time. Lyndsay Husain
[2025-03-08 15:34] LABS: PDF: SCANNED REPORT
--- OUTSIDE RECORDS SUMMARY | 2025-03-12 20:00 | XMS_ITS | Clinical Summary ---
Author Organization Unknown Care Team Providers Care Authorization Nurse Name Role Phone [facility] Unavailable Unavailable TAMMY CARDIOLOGY MANAGER, SHANIQUE Unavailable Unavailable MATTY PT, ESME Unavailable Unavailable Payers Payer Name Policy Type Policy Number Effective Date Expira tion Date [facility].OPTUM.VACCN.PDGM.C.AUTH Problems Condition Name Condition Details Condition [...] 09-03 00:00: 00 ATHSCL HEART DISEASE OF [place] CORONARY ARTERY W/O ANG PCTRS Active 09-03 [...] ON SUPPLEMENTAL OXYGEN Active 09-03 00:00: 00 [facility] (CURRENT) USE OF ORAL HYPOGLYCEMIC DRUGS Active [...] 11-20 00:00: 00 06-23 23:59 :00 No [id number] PAIN 3 tablet 2 TIMES DAILY 3 tablet 2 TIMES DAILY (route: oral) Med Classific ation: Analgesic , Anti-infl ammatory or Antipyret ic alogliptin 25 mg tablet 11-20 00:00: 00 06-23 23:59 :00 No [id number] BLOOD SUGAR 1 tablet DAILY 1 tablet DAILY (route: oral) Med Classific ation: Endocrine Aspirin Childrens 81 mg chewable tablet 11-20 00:00: 00 06-23 23:59 :00 No [id number] HEART 1 tablet DAILY 1 tablet DAILY (route: oral) Med Classific ation: Hematolog ical Agents bumetanide 2 mg tablet 11-20 00:00: 00 06-23 23:59 :00 No [id number] EDEMA 1 tablet DAILY 1 tablet DAILY (route: oral) Med Classific ation: Cardiovas cular Therapy Agents cholecalcif trav (vitamin D3) 25 mcg (1,000 unit) tablet 11-20 00:00: 00 06-23 23:59 :00 No [id number] SUPPLEMENT 1 tablet DAILY 1 tablet DAILY (route: oral) Med Classific ation: Electroly te Balance-N utritiona l Products ferrous sulfate 324 mg (65 mg iron) tablet,chapito yed release 11-20 00:00: 00 06-23 23:59 :00 No [id number] SUPPLEMENT 1 tablet DAILY 1 tablet DAILY (route: oral) Med Classific ation: Electroly te Balance-N utritiona l Products finasteride 5 mg tablet 11-20 00:00: 00 06-23 23:59 :00 No [id number] PROSTATE 1 tablet DAILY 1 tablet DAILY (route: oral) Med Classific ation: Genitouri nary Therapy gabapentin 300 mg capsule 11-20 00:00: 00 06-23 23:59 :00 No [id number] NERVE DAMAGE Per instruc tions DIRECTED Per instructio ns DIRECTED (route: oral) Med Classific ation: Central Nervous System Agents glucose 4 gram chewable tablet 11-20 00:00: 00 06-23 23:59 :00 No [id number] LOW BLOOD SUGAR 4 tablet NEEDED 4 tablet NEEDED (route: oral) Med Classific ation: Endocrine Humulin R U-500 (Conc) Insulin Kwikpen 500 unit/mL (3 mL) subcutaneou s 11-19 00:00: 00 06-23 23:59 :00 No [id number] T2DM Per instruc tions DIRECTED Per instructio ns DIRECTED (route: subcutaneo us) Med Classific ation: Endocrine Jardiance 25 mg tablet 11-20 00:00: 00 06-23 23:59 :00 No [id number] T2DM 0.5 tablet DAILY 0.5 tablet DAILY (route: oral) Med Classific ation: Endocrine methocarbam ol 750 mg tablet 11-20 00:00: 00 06-23 23:59 :00 No [id number] MUSCLE SPASMS 1 tablet EVERY 6 HOURS 1 tablet EVERY 6 HOURS (route: oral) Med Classific ation: Locomotor System metoprolol tartrate 100 mg tablet 11-20 00:00: 00 06-23 23:59 :00 No [id number] BLOOD PRESSURE 1 tablet 2 TIMES DAILY 1 tablet 2 TIMES DAILY (route: oral) Med Classific ation: Cardiovas cular Therapy Agents pantoprazol e 40 mg tablet,chapito yed release 11-20 00:00: 00 06-23 23:59 :00 No [id number] STOMACH 1 tablet 2 TIMES DAILY 1 tablet 2 TIMES DAILY (route: oral) Med Classific ation: Gastroint estinal Therapy Agents tamsulosin 0.4 mg capsule 11-20 00:00: 00 06-23 23:59 :00 No [id number] PROSTATE 1 capsule BEDTIME 1 capsule BEDTIME (route: oral) Med Classific ation: Genitouri nary Therapy tramadol 50 mg tablet 11-20 00:00: 00 06-23 23:59 :00 No [id number] PAIN 1 tablet EVERY 6 HOURS 1 tablet EVERY 6 HOURS (route: oral) Med Classific ation: Analgesic , Anti-infl ammatory or Antipyret ic venlafaxine ER 150 mg tablet,exte nded release 24 hr 11-20 00:00: 00 06-23 23:59 :00 No [id number] PAIN 1 tablet DAILY 1 tablet DAILY (route: oral) Med Classific ation: Central Nervous System Agents etodolac 400 mg tablet 11-20 00:00: 00 06-23 23:59 :00 No [id number] PAIN/INFLAM MATION 1 tablet EVERY 6 HOURS 1 tablet EVERY 6 HOURS (route: oral) Med Classific ation: Analgesic , Anti-infl ammatory or Antipyret ic alogliptin 25 mg tablet 2023-09 00:00: 00 09-15 00:00 :00 No [id number] T2DM 1 tablet DAILY 1 tablet DAILY (route: oral) Med Classific ation: Endocrine ascorbic acid (vitamin C) 500 mg tablet 2023-09 00:00: 00 Yes [id number] SUPPLEMENT 1 tablet DAILY 1 tablet DAILY (route: oral) Med Classific ation: Electroly te Balance-N utritiona l Products Aspirin Childrens 81 mg chewable tablet 2023-09 00:00: 00 09-15 00:00 :00 No [id number] HEART 1 tablet DAILY 1 tablet DAILY (route: oral) Med Classific ation: Hematolog ical Agents Biktarvy 50 mg-200 mg-25 mg tablet 2023-09 00:00: 00 Yes [id number] IMMUNE 1 tablet DAILY 1 tablet DAILY (route: oral) Med Classific ation: Anti-Infe ctive Agents bumetanide 2 mg tablet 2023-09 00:00: 00 Yes [id number] EDEMA 1 tablet 2 TIMES DAILY 1 tablet 2 TIMES DAILY (route: oral) Med Classific ation: Cardiovas cular Therapy Agents ferrous sulfate 324 mg (65 mg iron) tablet,chapito yed release 2023-09 00:00: 00 Yes [id number] SUPPLEMENT 1 tablet DAILY 1 tablet DAILY (route: oral) Med Classific ation: Electroly te Balance-N utritiona l Products finasteride 5 mg tablet 2023-09 00:00: 00 Yes [id number] PROSTATE 1 tablet DAILY 1 tablet DAILY (route: oral) Med Classific ation: Genitouri nary Therapy gabapentin 300 mg capsule 2023-09 00:00: 00 Yes [id number] PAIN 2 capsule DAILY 2 capsule DAILY (route: oral) Med Classific ation: Central Nervous System Agents Humulin R U-500 (Conc) Insulin Kwikpen 500 unit/mL (3 mL) subcutaneou s 2023-09 00:00: 00 09-15 00:00 :00 No [id number] T2DM 65 unit 2 TIMES DAILY 65 unit 2 TIMES DAILY (route: subcutaneo us) Med Classific ation: Endocrine Jardiance 25 mg tablet 2023-09 00:00: 00 09-15 00:00 :00 No [id number] T2DM 0.5 tablet DAILY 0.5 tablet DAILY (route: oral) Med Classific ation: Endocrine methocarbam ol 750 mg tablet 2023-09 00:00: 00 Yes [id number] MUSCLE SPASMS 1 tablet 3 TIMES DAILY 1 tablet 3 TIMES DAILY (route: oral) Med Classific ation: Locomotor System metoprolol tartrate 100 mg tablet 2023-09 00:00: 00 Yes [id number] BLOOD PRESSURE 1 tablet 2 TIMES DAILY 1 tablet 2 TIMES DAILY (route: oral) Med Classific ation: Cardiovas cular Therapy Agents Protonix 40 mg tablet,chapito yed release 2023-09 00:00: 00 Yes [id number] GERD 1 tablet DAILY 1 tablet DAILY (route: oral) Med Classific ation: Gastroint estinal Therapy Agents Stiolto Respimat 2.5 mcg-2.5 mcg/actuati on solution for inhalation 2023-09 00:00: 00 Yes [id number] BREATHING 2 puff DAILY 2 puff DAILY (route: inhalation ) Med Classific ation: Respirato ry Therapy Agents tamsulosin 0.4 mg capsule 2023-09 00:00: 00 Yes [id number] PROSTATE 1 capsule DAILY 1 capsule DAILY (route: oral) Med Classific ation: Genitouri nary Therapy tramadol 50 mg tablet 2023-09 00:00: 00 Yes [id number] PAIN 1 tablet 3 TIMES DAILY 1 tablet 3 TIMES DAILY (route: oral) Med Classific ation: Analgesic , Anti-infl ammatory or Antipyret ic venlafaxine ER 150 mg tablet,exte nded release 24 hr 2023-09 00:00: 00 Yes [id number] MOOD 1 tablet DAILY 1 tablet DAILY (route: oral) Med Classific ation: Central Nervous System Agents Ventolin HFA 90 mcg/actuati on aerosol inhaler 2023-09 00:00: 00 09-15 00:00 :00 No [id number] BREATHING 2 puff EVERY 4 HOURS 2 puff EVERY 4 HOURS (route: inhalation ) Med Classific ation: Respirato ry Therapy Agents Vitamin D3 25 mcg (1,000 unit) tablet 2023-09 00:00: 00 Yes [id number] SUPPLEMENT 1 tablet DAILY 1 tablet DAILY (route: oral) Med Classific ation: Electroly te Balance-N utritiona l Products digoxin 125 mcg (0.125 mg) tablet 09-15 00:00: 00 02-20 23:59 :00 No [id number] HEART 1 tablet DAILY 1 tablet DAILY (route: oral) Med Classific ation: Cardiovas cular Therapy Agents diltiazem 60 mg tablet 09-15 00:00: 00 Yes [id number] ANGINA 1 tablet EVERY 8 HOURS 1 tablet EVERY 8 HOURS (route: oral) Med Classific ation: Cardiovas cular Therapy Agents Jardiance 10 mg tablet 09-15 00:00: 00 02-20 23:59 :00 No [id number] T2DM 1 tablet DAILY 1 tablet DAILY (route: oral) Med Classific ation: Endocrine sitagliptin 100 mg tablet 09-15 00:00: 00 Yes [id number] T2DM 1 tablet DAILY 1 tablet DAILY (route: oral) Med Classific ation: Endocrine buprenorphi ne 7.5 mcg/hour weekly transdermal patch 02-23 00:00: 00 Yes [id number] PAIN 1 patch, transde rmal weekly WEEKLY 1 patch, transderma l weekly WEEKLY (route: transderma l) Med Classific ation: Analgesic , Anti-infl ammatory or Antipyret ic Advil 200 mg tablet 02-20 00:00: 00 Yes [id number] PAIN 2 tablet DAILY 2 tablet DAILY (route: oral) Med Classific ation: Analgesic , Anti-infl ammatory or Antipyret ic amoxicillin 875 mg-potassiu m clavulanate 125 mg tablet 02-23 00:00: 00 02-27 23:59 :00 No [id number] PNEUMONIA 1 tablet 2 TIMES DAILY 1 tablet 2 TIMES DAILY (route: oral) Med Classific ation: Anti-Infe ctive Agents azithromyci n 500 mg tablet 02-23 00:00: 00 Yes [id number] PNEUMONIA 1 tablet DAILY 1 tablet DAILY (route: oral) Med Classific ation: Anti-Infe ctive Agents Humulin R U-500 (Conc) Insulin Kwikpen 500 unit/mL (3 mL) subcutaneou s 02-24 00:00: 00 Yes [id number] DM Per instruc tions 2 TIMES DAILY Per instructio ns 2 TIMES DAILY (route: subcutaneo us) Med Classific ation: Endocrine oxygen gas for inhalation 02-20 00:00: 00 Yes [id number] SOA 3 Liter O2 - CONTINUOUS 3 Liter O2 - CONTINUOUS (route: inhalation ) Med Classific ation: Medical Supplies and Durable Medical Equipment (DME) Vital Signs Vital Name Observation Time Observation Value Commen ts Temperature 2025-02-24 10:43:00.000 97.5 [degF] Temperature 2025-02-13 14:54:00.000 97.5 [degF] Temperature 2025-01-29 13:37:00.000 97 [degF] Temperature 2025-01-13 15:37:00.000 97.6 [degF] Pulse 2025-02-24 10:43:00.000 87 /min Pulse 2025-02-13 14:54:00.000 85 /min Pulse 2025-01-29 13:37:00.000 70 /min Pulse 2025-01-13 15:37:00.000 72 /min O2 Saturation (%) 2025-02-24 10:43:00.000 97 % O2 Saturation (%) 2025-02-13 14:54:00.000 94 % O2 Saturation (%) 2025-01-29 13:37:00.000 95 % O2 Saturation (%) 2025-01-13 15:37:00.000 94 % Respirations 2025-02-24 10:43:00.000 19 /min Respirations 2025-02-13 14:54:00.000 18 /min Respirations 2025-01-29 13:37:00.000 18 /min Respirations 2025-01-13 15:37:00.000 18 /min Systolic Blood Pressure 2025-02-24 10:43:00.000 122 mm [Hg] Systolic Blood Pressure 2025-02-13 14:54:00.000 138 mm [Hg] Systolic Blood Pressure 2025-01-29 13:37:00.000 114 mm [Hg] Systolic Blood Pressure 2025-01-13 15:37:00.000 135 mm [Hg] Diastolic Blood Pressure 2025-02-24 10:43:00.000 [...] TO EVALUATE, OBSERVE / ASSESS, AND MONITOR, CARDIOLOGY MANAGER TO OBSERVE AND MONITOR, PROVIDE SKILLED THERAPEUTIC INTERVENTION, ACTIVITY, EDUCATION, AND TRAINING TO ADDRESS; [code = AGENCY MAY PERFORM A RESUMPTION OF CARE VISIT FOLLOWING ANY HOSPITAL ADMISSION. PT TO EVALUATE, OBSERVE / ASSESS, AND MONITOR, CARDIOLOGY MANAGER TO OBSERVE AND MONITOR, PROVIDE SKILLED THERAPEUTIC INTERVENTION, ACTIVITY, EDUCATION, AND TRAINING TO ADDRESS;] Future Scheduled Test THERAPEUTI C EXERCISES AND ESTABLISHING A HOME EXERCISE PROGRAM (PT/CARDIOLOGY MANAGER) [code = THERAPEUTIC EXERCISES AND ESTABLISHING A HOME EXERCISE PROGRAM (PT/CARDIOLOGY MANAGER)] Future Scheduled Test NEUROMUSCU LAR RE-EDUCATION / BALANCE / POSTURAL CONTROL (PT) [code = NEUROMUSCULAR RE-EDUCATION / BALANCE / POSTURAL CONTROL (PT)] Future Scheduled Test PT/CARDIOLOGY MANAGER TO PROVIDE GAIT TRAINING FOR IMPROVED MOBILITY AND /OR TO NORMALIZE GAIT PATTERN [code = PT/CARDIOLOGY MANAGER TO PROVIDE GAIT TRAINING FOR IMPROVED MOBILITY AND /OR TO NORMALIZE GAIT PATTERN] Future Scheduled Test SIT TO/FRO M STAND TRANSFERS (PT/CARDIOLOGY MANAGER) [code = SIT TO/FROM STAND TRANSFERS (PT/CARDIOLOGY MANAGER)] Goal 2024-11-12 Patient Goal - R ETURN [...] End Date/Time Encounter Type Admission Type Attending [facility] Care Department Encounter ID Discharge Date Discharge Status Discharge Condition Discharge Reason Percent Goals Met 2025-01-13 00:00:00 2025-03-13 00:00:00 Outpatient ARAVINDRTESME HANDY [facility] [id number] .00
--- OUTSIDE RECORDS SUMMARY | 2025-03-12 20:00 | XMS_ITS | Clinical Summary ---
Author Organization Unknown Care Team Providers Care Bar Attendant Name Role Phone [facility] Unavailable Unavailable TAMMY COATING SUPERVISOR, SHANIQUE Unavailable Unavailable MATTY PT, ESME Unavailable Unavailable Payers Payer Name Policy Type Policy Number Effective Date Expira tion Date [facility].OPTUM.VACCN.PDGM.C.AUTH Problems Condition Name Condition Details Condition [...] 09-03 00:00: 00 ATHSCL HEART DISEASE OF [place] CORONARY ARTERY W/O ANG PCTRS Active 09-03 [...] ON SUPPLEMENTAL OXYGEN Active 09-03 00:00: 00 [facility] (CURRENT) USE OF ORAL HYPOGLYCEMIC DRUGS Active [...] 11-20 00:00: 00 06-23 23:59 :00 No [id number] PAIN 3 tablet 2 TIMES DAILY 3 tablet 2 TIMES DAILY (route: oral) Med Classific ation: Analgesic , Anti-infl ammatory or Antipyret ic alogliptin 25 mg tablet 11-20 00:00: 00 06-23 23:59 :00 No [id number] BLOOD SUGAR 1 tablet DAILY 1 tablet DAILY (route: oral) Med Classific ation: Endocrine Aspirin Childrens 81 mg chewable tablet 11-20 00:00: 00 06-23 23:59 :00 No [id number] HEART 1 tablet DAILY 1 tablet DAILY (route: oral) Med Classific ation: Hematolog ical Agents bumetanide 2 mg tablet 11-20 00:00: 00 06-23 23:59 :00 No [id number] EDEMA 1 tablet DAILY 1 tablet DAILY (route: oral) Med Classific ation: Cardiovas cular Therapy Agents cholecalcif trav (vitamin D3) 25 mcg (1,000 unit) tablet 11-20 00:00: 00 06-23 23:59 :00 No [id number] SUPPLEMENT 1 tablet DAILY 1 tablet DAILY (route: oral) Med Classific ation: Electroly te Balance-N utritiona l Products ferrous sulfate 324 mg (65 mg iron) tablet,chapito yed release 11-20 00:00: 00 06-23 23:59 :00 No [id number] SUPPLEMENT 1 tablet DAILY 1 tablet DAILY (route: oral) Med Classific ation: Electroly te Balance-N utritiona l Products finasteride 5 mg tablet 11-20 00:00: 00 06-23 23:59 :00 No [id number] PROSTATE 1 tablet DAILY 1 tablet DAILY (route: oral) Med Classific ation: Genitouri nary Therapy gabapentin 300 mg capsule 11-20 00:00: 00 06-23 23:59 :00 No [id number] NERVE DAMAGE Per instruc tions DIRECTED Per instructio ns DIRECTED (route: oral) Med Classific ation: Central Nervous System Agents glucose 4 gram chewable tablet 11-20 00:00: 00 06-23 23:59 :00 No [id number] LOW BLOOD SUGAR 4 tablet NEEDED 4 tablet NEEDED (route: oral) Med Classific ation: Endocrine Humulin R U-500 (Conc) Insulin Kwikpen 500 unit/mL (3 mL) subcutaneou s 11-19 00:00: 00 06-23 23:59 :00 No [id number] T2DM Per instruc tions DIRECTED Per instructio ns DIRECTED (route: subcutaneo us) Med Classific ation: Endocrine Jardiance 25 mg tablet 11-20 00:00: 00 06-23 23:59 :00 No [id number] T2DM 0.5 tablet DAILY 0.5 tablet DAILY (route: oral) Med Classific ation: Endocrine methocarbam ol 750 mg tablet 11-20 00:00: 00 06-23 23:59 :00 No [id number] MUSCLE SPASMS 1 tablet EVERY 6 HOURS 1 tablet EVERY 6 HOURS (route: oral) Med Classific ation: Locomotor System metoprolol tartrate 100 mg tablet 11-20 00:00: 00 06-23 23:59 :00 No [id number] BLOOD PRESSURE 1 tablet 2 TIMES DAILY 1 tablet 2 TIMES DAILY (route: oral) Med Classific ation: Cardiovas cular Therapy Agents pantoprazol e 40 mg tablet,chapito yed release 11-20 00:00: 00 06-23 23:59 :00 No [id number] STOMACH 1 tablet 2 TIMES DAILY 1 tablet 2 TIMES DAILY (route: oral) Med Classific ation: Gastroint estinal Therapy Agents tamsulosin 0.4 mg capsule 11-20 00:00: 00 06-23 23:59 :00 No [id number] PROSTATE 1 capsule BEDTIME 1 capsule BEDTIME (route: oral) Med Classific ation: Genitouri nary Therapy tramadol 50 mg tablet 11-20 00:00: 00 06-23 23:59 :00 No [id number] PAIN 1 tablet EVERY 6 HOURS 1 tablet EVERY 6 HOURS (route: oral) Med Classific ation: Analgesic , Anti-infl ammatory or Antipyret ic venlafaxine ER 150 mg tablet,exte nded release 24 hr 11-20 00:00: 00 06-23 23:59 :00 No [id number] PAIN 1 tablet DAILY 1 tablet DAILY (route: oral) Med Classific ation: Central Nervous System Agents etodolac 400 mg tablet 11-20 00:00: 00 06-23 23:59 :00 No [id number] PAIN/INFLAM MATION 1 tablet EVERY 6 HOURS 1 tablet EVERY 6 HOURS (route: oral) Med Classific ation: Analgesic , Anti-infl ammatory or Antipyret ic alogliptin 25 mg tablet 2023-09 00:00: 00 09-15 00:00 :00 No [id number] T2DM 1 tablet DAILY 1 tablet DAILY (route: oral) Med Classific ation: Endocrine ascorbic acid (vitamin C) 500 mg tablet 2023-09 00:00: 00 Yes [id number] SUPPLEMENT 1 tablet DAILY 1 tablet DAILY (route: oral) Med Classific ation: Electroly te Balance-N utritiona l Products Aspirin Childrens 81 mg chewable tablet 2023-09 00:00: 00 09-15 00:00 :00 No [id number] HEART 1 tablet DAILY 1 tablet DAILY (route: oral) Med Classific ation: Hematolog ical Agents Biktarvy 50 mg-200 mg-25 mg tablet 2023-09 00:00: 00 Yes [id number] IMMUNE 1 tablet DAILY 1 tablet DAILY (route: oral) Med Classific ation: Anti-Infe ctive Agents bumetanide 2 mg tablet 2023-09 00:00: 00 Yes [id number] EDEMA 1 tablet 2 TIMES DAILY 1 tablet 2 TIMES DAILY (route: oral) Med Classific ation: Cardiovas cular Therapy Agents ferrous sulfate 324 mg (65 mg iron) tablet,chapito yed release 2023-09 00:00: 00 Yes [id number] SUPPLEMENT 1 tablet DAILY 1 tablet DAILY (route: oral) Med Classific ation: Electroly te Balance-N utritiona l Products finasteride 5 mg tablet 2023-09 00:00: 00 Yes [id number] PROSTATE 1 tablet DAILY 1 tablet DAILY (route: oral) Med Classific ation: Genitouri nary Therapy gabapentin 300 mg capsule 2023-09 00:00: 00 Yes [id number] PAIN 2 capsule DAILY 2 capsule DAILY (route: oral) Med Classific ation: Central Nervous System Agents Humulin R U-500 (Conc) Insulin Kwikpen 500 unit/mL (3 mL) subcutaneou s 2023-09 00:00: 00 09-15 00:00 :00 No [id number] T2DM 65 unit 2 TIMES DAILY 65 unit 2 TIMES DAILY (route: subcutaneo us) Med Classific ation: Endocrine Jardiance 25 mg tablet 2023-09 00:00: 00 09-15 00:00 :00 No [id number] T2DM 0.5 tablet DAILY 0.5 tablet DAILY (route: oral) Med Classific ation: Endocrine methocarbam ol 750 mg tablet 2023-09 00:00: 00 Yes [id number] MUSCLE SPASMS 1 tablet 3 TIMES DAILY 1 tablet 3 TIMES DAILY (route: oral) Med Classific ation: Locomotor System metoprolol tartrate 100 mg tablet 2023-09 00:00: 00 Yes [id number] BLOOD PRESSURE 1 tablet 2 TIMES DAILY 1 tablet 2 TIMES DAILY (route: oral) Med Classific ation: Cardiovas cular Therapy Agents Protonix 40 mg tablet,chapito yed release 2023-09 00:00: 00 Yes [id number] GERD 1 tablet DAILY 1 tablet DAILY (route: oral) Med Classific ation: Gastroint estinal Therapy Agents Stiolto Respimat 2.5 mcg-2.5 mcg/actuati on solution for inhalation 2023-09 00:00: 00 Yes [id number] BREATHING 2 puff DAILY 2 puff DAILY (route: inhalation ) Med Classific ation: Respirato ry Therapy Agents tamsulosin 0.4 mg capsule 2023-09 00:00: 00 Yes [id number] PROSTATE 1 capsule DAILY 1 capsule DAILY (route: oral) Med Classific ation: Genitouri nary Therapy tramadol 50 mg tablet 2023-09 00:00: 00 Yes [id number] PAIN 1 tablet 3 TIMES DAILY 1 tablet 3 TIMES DAILY (route: oral) Med Classific ation: Analgesic , Anti-infl ammatory or Antipyret ic venlafaxine ER 150 mg tablet,exte nded release 24 hr 2023-09 00:00: 00 Yes [id number] MOOD 1 tablet DAILY 1 tablet DAILY (route: oral) Med Classific ation: Central Nervous System Agents Ventolin HFA 90 mcg/actuati on aerosol inhaler 2023-09 00:00: 00 09-15 00:00 :00 No [id number] BREATHING 2 puff EVERY 4 HOURS 2 puff EVERY 4 HOURS (route: inhalation ) Med Classific ation: Respirato ry Therapy Agents Vitamin D3 25 mcg (1,000 unit) tablet 2023-09 00:00: 00 Yes [id number] SUPPLEMENT 1 tablet DAILY 1 tablet DAILY (route: oral) Med Classific ation: Electroly te Balance-N utritiona l Products digoxin 125 mcg (0.125 mg) tablet 09-15 00:00: 00 02-20 23:59 :00 No [id number] HEART 1 tablet DAILY 1 tablet DAILY (route: oral) Med Classific ation: Cardiovas cular Therapy Agents diltiazem 60 mg tablet 09-15 00:00: 00 Yes [id number] ANGINA 1 tablet EVERY 8 HOURS 1 tablet EVERY 8 HOURS (route: oral) Med Classific ation: Cardiovas cular Therapy Agents Jardiance 10 mg tablet 09-15 00:00: 00 02-20 23:59 :00 No [id number] T2DM 1 tablet DAILY 1 tablet DAILY (route: oral) Med Classific ation: Endocrine sitagliptin 100 mg tablet 09-15 00:00: 00 Yes [id number] T2DM 1 tablet DAILY 1 tablet DAILY (route: oral) Med Classific ation: Endocrine buprenorphi ne 7.5 mcg/hour weekly transdermal patch 02-23 00:00: 00 Yes [id number] PAIN 1 patch, transde rmal weekly WEEKLY 1 patch, transderma l weekly WEEKLY (route: transderma l) Med Classific ation: Analgesic , Anti-infl ammatory or Antipyret ic Advil 200 mg tablet 02-20 00:00: 00 Yes [id number] PAIN 2 tablet DAILY 2 tablet DAILY (route: oral) Med Classific ation: Analgesic , Anti-infl ammatory or Antipyret ic amoxicillin 875 mg-potassiu m clavulanate 125 mg tablet 02-23 00:00: 00 02-27 23:59 :00 No [id number] PNEUMONIA 1 tablet 2 TIMES DAILY 1 tablet 2 TIMES DAILY (route: oral) Med Classific ation: Anti-Infe ctive Agents azithromyci n 500 mg tablet 02-23 00:00: 00 Yes [id number] PNEUMONIA 1 tablet DAILY 1 tablet DAILY (route: oral) Med Classific ation: Anti-Infe ctive Agents Humulin R U-500 (Conc) Insulin Kwikpen 500 unit/mL (3 mL) subcutaneou s 02-24 00:00: 00 Yes [id number] DM Per instruc tions 2 TIMES DAILY Per instructio ns 2 TIMES DAILY (route: subcutaneo us) Med Classific ation: Endocrine oxygen gas for inhalation 02-20 00:00: 00 Yes [id number] SOA 3 Liter O2 - CONTINUOUS 3 [...] TO EVALUATE, OBSERVE / ASSESS, AND MONITOR, COATING SUPERVISOR TO OBSERVE AND MONITOR, PROVIDE SKILLED THERAPEUTIC INTERVENTION, ACTIVITY, EDUCATION, AND TRAINING TO ADDRESS; [code = AGENCY MAY PERFORM A RESUMPTION OF CARE VISIT FOLLOWING ANY HOSPITAL ADMISSION. PT TO EVALUATE, OBSERVE / ASSESS, AND MONITOR, COATING SUPERVISOR TO OBSERVE AND MONITOR, PROVIDE SKILLED THERAPEUTIC INTERVENTION, ACTIVITY, EDUCATION, AND TRAINING TO ADDRESS;] Future Scheduled Test THERAPEUTI C EXERCISES AND ESTABLISHING A HOME EXERCISE PROGRAM (PT/COATING SUPERVISOR) [code = THERAPEUTIC EXERCISES AND ESTABLISHING A HOME EXERCISE PROGRAM (PT/COATING SUPERVISOR)] Future Scheduled Test NEUROMUSCU LAR RE-EDUCATION / BALANCE / POSTURAL CONTROL (PT) [code = NEUROMUSCULAR RE-EDUCATION / BALANCE / POSTURAL CONTROL (PT)] Future Scheduled Test PT/COATING SUPERVISOR TO PROVIDE GAIT TRAINING FOR IMPROVED MOBILITY AND /OR TO NORMALIZE GAIT PATTERN [code = PT/COATING SUPERVISOR TO PROVIDE GAIT TRAINING FOR IMPROVED MOBILITY AND /OR TO NORMALIZE GAIT PATTERN] Future Scheduled Test SIT TO/FRO M STAND TRANSFERS (PT/COATING SUPERVISOR) [code = SIT TO/FROM STAND TRANSFERS (PT/COATING SUPERVISOR)] Goal 2024-11-12 Patient Goal - R ETURN [...] Type Admission Type Attending [facility] Care Department Encounter ID Discharge Date Discharge Status Discharge Condition Discharge Reason Percent Goals Met 2025-01-13 00:00:00 2025-03-13 00:00:00 Outpatient ARAVINDRTESME HANDY [facility] [id number]
== END 2025-03-03 16:11 | disposition home health service (06) | DRG 291 ==
LOC: ER 22:50 → ICU 02-28 05:53 → 2ND 02-28 17:20
PROVIDERS: Nurse Practitioner Family; Admitting Provider Internal Medicine Adolescent Medicine; Emergency Provider Emergency Medicine; Visit Provider Internal Medicine Adolescent Medicine
DX: I11.0 Hypertensive heart disease with heart failure (principal); G92.8 Other toxic encephalopathy; J96.21 Acute and chronic respiratory failure with hypoxia; I50.33 Acute on chronic diastolic (congestive) heart failure; J96.22 Acute and chronic respiratory failure with hypercapnia; E87.1 Hypo-osmolality and hyponatremia; N17.9 Acute kidney failure, unspecified; I48.92 Unspecified atrial flutter; I48.91 Unspecified atrial fibrillation; E78.5 Hyperlipidemia, unspecified; E11.65 Type 2 diabetes mellitus with hyperglycemia; G47.33 Obstructive sleep apnea (adult) (pediatric); J44.9 Chronic obstructive pulmonary disease, unspecified; R29.6 Repeated falls; I95.9 Hypotension, unspecified; T40.495A Adverse effect of other synthetic narcotics, initial encounter; S30.1XXA Contusion of abdominal wall, initial encounter; Z21 Asymptomatic human immunodeficiency virus [HIV] infection status; Z79.899 Other long term (current) drug therapy; Z79.83 Long term (current) use of bisphosphonates; Z79.82 Long term (current) use of aspirin; Z79.84 Long term (current) use of oral hypoglycemic drugs; Z88.8 Allergy status to other drugs, medicaments and biological substances; Z88.7 Allergy status to serum and vaccine; Z88.1 Allergy status to other antibiotic agents; Z79.01 Long term (current) use of anticoagulants; X58.XXXA Exposure to other specified factors, initial encounter
CPT/HCPCS: 36415; 51702; 70450; 70496; 70498; 71045; 71275; 74174; 80048; 80053; 80307; 81001; 82803; 82962; 83036; 83605; 83735; 83880; 84484; 85007; 85025; 85610; 85730; 86355; 86359; 86360; 87040; 87070; 87086; 87205; 87536; 87631; 93005; 94760; 97162; 97166; 97530; J0696; J1160; J1644; J1650; J1938; J2185; J2919; J7120; Q9967

== ENCOUNTER 2025-03-26 18:18 | Inpatient (IN) | payer OTHER, MEDICARE, SELFPAY ==
--- OUTSIDE RECORDS SUMMARY | 2024-04-09 04:45 | XMS_ITS | Encounter Summary ---
Author Name [facility] [place] [facility] [place] Address [address] [place] [address] Care Team Providers Care Rooming House Operator Name Role Phone LAURY KENYON Primary Care Provider Unavailab SHIMON Alex Unavailable Unavailable RICK FREEMAN Unavailable Unavailable REEMA BENDER Unavailable Unavailable NATASHA PICKENS Unavailable Unavailable JENY STOREY Unavailable Unavailable ALONSO IRVING Unavailable Unavailable Insurance Providers: All historical and current Section Date Range: From patient's date of to the date document was created. This section includes the names of all active insurance providers for the patient. Insurance Provider Type of Coverage Plan Name Start of Policy Coverage End of Policy Coverage Group Number Member ID Insurance Provider's Telephone Number Policy Pascual's Name Patient's Relationship to Policy Pascual HUMANA CLAIMS/VA MEDICAL PREFERRED PROVIDER ORGANIZAT ION (PPO) [employer] Jun 03, 2017 [id number] ROXI WINKLER PATIENT HUMANA [facility] (WNR) MEDICARE ADVANTAGE [facility] (WNR) Sep 03, 2019 [id number] ROXI WINKLER JR PATIENT HUMANA [facility] (WNR) MEDICARE ADVANTAGE [facility] (WNR) Sep 03, 2019 [id number] ROXI WINKLERA MCR (WNR) MEDICARE ADVANTAGE HUMAN A INSUR ANCE COM Apr 04, 2019 [id number] ROXI WINKLERA MCR (WNR) MEDICARE ADVANTAGE [facility] (WNR) Apr 03, 2019 [id number] ROXI WINKLER HUMANA MCR (WNR) MEDICARE ADVANTAGE MCR (WNR) Apr 03, 2019 [id number] ROXI WINKLERA MCR (WNR) MEDICARE ADVANTAGE MCR (WNR) Apr 03, 2019 [id number] ROXI WINKLER JR PHARMACY PRESCRIPT ION NONE Jun 03, 2017 NONE [id number] [phone] ROXI WINKLER MEDICARE PART D (WNR) MEDICARE (M) PART D Sep 03, 2023 PART D [id number] [phone] ROXI WINKLER JR PATIENT Selected Encounter This section includes the information on record at [place] for the Encounter. Date/Time Encounter Type Encounter Description Reason Pro vider Source Apr 09, 2024 08:45 AM Outpatient Encounter ADMIN PAT ACTIVTIES (MASNONCT) I[facility] Encounter Template Text not used by [place] Plan of Treatment: Future Appointments (+ 6 months) and Future Tests (+/- 45 days) The Plan of Treatment section includes future care activities for the patient from all [place] treatmentfacilities. This section includes future appointments and future orders which are active, pending or scheduled. Future Appointments This section includes appointments that were scheduled to occur 6 months from the date of the Encounter, up to a maximum of 20 appointments. The data comes from all [place] treatment facilities. Appointment Date/Time Appointment Type Appointme nt Facility Name Jun 11, 2024 01:00 PM AMBULATORY - NONE [place] [facility] Jun 11, 2024 01:00 PM AMBULATORY - NONE [facility] [facility] Jun 23, 2024 01:00 PM AMBULATORY - NONE [place] [facility] Jun 23, 2024 01:00 PM AMBULATORY - NONE [place] [facility] Jun 25, 2024 08:00 AM AMBULATORY - NONE [place] [facility] Sep 30, 2024 09:00 AM AMBULATORY - NONE [place] Barnes [facility] Oct 06, 2024 01:30 PM AMBULATORY - MEDICINE [place] [facility] Social History: Smoking Status (Most current) and Tobacco Use (All prior to encounter date) This section includes the most current, and the historical, smoking and tobacco- related health factors from the [place] facility where the Encounter took place. Current Smoking Status This section includes the most current smoking, or tobacco-related health factor, from the [place] facility where the Encounter took place. Date/Time Current Smoking Status Comment Facil ity May 05, 2016 01:12 AM NON-TOBACCO USE INPATIENT [facility] Tobacco Use History This section includes a history of the smoking, or tobacco-related health factors, that were collected on or before the date of the Encounter. The data comes from the [place] facility where the Encounter took place. Date/Time Smoking Status/Tobacco Use Comment F acility Nov 24, 2015 04:48 PM NON-TOBACCO USE INPATIENT [facility] Oct 01, 2014 07:15 PM NON-TOBACCO USE INPATIENT [facility] Apr 10, 2005 01:20 PM HF V9 LIFETIME NON-SMOKER [facility] Nov 24, 2003 03:11 PM HF V9 LIFETIME NON-SMOKER [facility] Oct 07, 2002 02:26 PM HF V9 LIFETIME NON-SMOKER [facility] Advance Directives: All historical and current Section Date Range: From patient's date of to the date document was created. This section includes ALL of a patient's completed or amended [place] Advance and Rescinded Directives. The entries below indicate that a directive exists for the patient, but an actual copy is not included with this document. The data comes from all [place] facilities. Date Advance Directives Provider Source Sep 25, 2024 ADVANCE DIRECTIVE DISCUSSION ANTHONY IRVING [facility] Encounter Notes: All associated encounter notes This section contains the clinical notes associated to the Encounter. Date/Time Encounter Note(s) Provider Source Apr 09, 2024 08:46 AM ADMINISTRATIVE NOT E: LOCAL TITLE: CLERICAL/ADMIN NOTE STANDARD TITLE: ADMINISTRATIVE NOTE DATE OF NOTE: APR 09, 2024@08:46 ENTRY DATE: APR 09, 2024@08:46:06 AUTHOR: DES STEVENS EXP COSIGNER: URGENCY: STATUS: COMPLETED Received fax from: [facility] Pages including cover: 37 Placed in REID/PROVIDER'S mail box. /angie/ DES STEVENS [facility] Signed: 04/09/2024 08:48 DES STEVENS MOHALL-D [facility]
--- OUTSIDE RECORDS SUMMARY | 2024-06-02 08:45 | XMS_ITS | Encounter Summary ---
Author Name [facility] [place] [facility] [place] Address [address] [place] [address] Care Team Providers Care Strap Setter Name Role Phone LAURY KENYON Primary Care [...] ON [employer] Jun 03, 2017 [id number] ROXI WINKLER PATIENT [employer] [facility] (WNR) MEDICARE ADVANTAGE [facility] (WNR) Sep 03, 2019 [id number] ROXI WINKLER JR PATIENT [employer] [facility] (WNR) MEDICARE ADVANTAGE [facility] (WNR) Sep 03, 2019 [id number] ROXI WINKLERA MCR (WNR) MEDICARE ADVANTAGE HUMAN A INSUR ANCE COM Apr 04, 2019 [id number] ROXI WINKLERA MCR (WNR) MEDICARE ADVANTAGE [facility] (WNR) Apr 03, 2019 [id number] ROXI WINKLERA MCR (WNR) MEDICARE ADVANTAGE MCR (WNR) Apr 03, 2019 [id number] ROXI WINKLERA MCR (WNR) MEDICARE ADVANTAGE MCR (WNR) Apr 03, 2019 [id number] ROXI WINKLER JR PHARMACY PRESCRIPT ION NONE Jun 03, 2017 NONE [id number] ROXI WINKLER MEDICARE PART D ([place]NR) MEDICARE (M) PART D Sep 03, 2023 PART D [id number] ROXI WINKLER JR PATIENT Selected Encounter This section includes the [place] on [place] at [place] for [place]. Date/Time Encounter Type Encounter Description Reason Pro vider Source Jun 02, 2024 12:45 PM Outpatient Encounter ADMIN PAT ACTIVTIES (MASNONCT) I[facility] Encounter Template Text not used by [place] Plan of Treatment: Future Appointments (+ 6 months) and Future Tests (+/- 45 days) The Plan of Treatment section includes future care activities for the patient from all [place] treatmentfacilities. This section includes future appointments and future orders which are active, pending or scheduled. Future Appointments This section includes appointments that were scheduled to occur 6 months from the date of the Encounter, up to a maximum of 20 appointments. The data comes from all [place] treatment facilities. Appointment Date/Time Appointment Type Appointme nt Facility Name Jun 11, 2024 01:00 PM AMBULATORY - NONE [place] [facility] Jun 11, 2024 01:00 PM AMBULATORY - NONE [facility] Jun 23, 2024 01:00 PM AMBULATORY - NONE [facility] [facility] Jun 23, 2024 01:00 PM AM[facility]ORY - NONE [place] [facility] Jun 25, 2024 08:00 AM AMBULATORY - NONE [place] [facility] Sep 30, 2024 09:00 AM AMBULATORY - NONE [place] Barnes [facility] Oct 06, 2024 01:30 PM [facility] Oct 14, 2024 09:30 [facility] Oct 14, 2024 10:00 AM [facility] Oct 17, 2024 04:00 PM [facility] Nov 18, 2024 08:00 AM AMBULATORY - NONE STEPHEN Barnes [facility] Nov 21, 2024 09:00 AM [facility] Nov 21, 2024 11:20 AM [facility] - [facility] Social History: Smoking Status (Most current) and Tobacco Use (All prior to encounter date) This section includes the most current, and the historical, smoking and tobacco- related health factors from the [place] facility where the Encounter took place. Current Smoking Status This section includes the most current smoking, or tobacco-related health factor, from the [place] facility where the Encounter took place. Date/Time Current Smoking Status Comment Anita ity May 05, 2016 01:12 AM NON-TOBACCO USE INPATIENT [facility] Tobacco Use History This section includes a history of the smoking, or tobacco-related health factors, that were collected on or before the date of the Encounter. The data comes from the [place] facility where the Encounter took place. Date/Time Smoking Status/Tobacco Use Comment F acility Nov 24, 2015 04:48 PM NON-TOBACCO USE INPATIENT [facility] Oct 01, 2014 07:15 PM NON-TOBACCO USE INPATIENT [facility] Apr 10, 2005 01:20 PM HF V9 LIFETIME NON-SMOKER [facility] Nov 24, 2003 03:11 PM HF V9 LIFETIME NON-SMOKER [facility] Oct 07, 2002 02:26 PM HF V9 LIFETIME NON-SMOKER [facility] Advance Directives: All historical and current Section Date Range: From patient's date of to the date document was created. This section includes ALL of a patient's completed or amended [place] Advance and Rescinded Directives. The entries below indicate that a directive exists for the patient, but an actual copy is not included with this document. The data comes from all [place] facilities. Date Advance Directives Provider Source Sep 25, 2024 ADVANCE DIRECTIVE DISCUSSION [facility] Encounter Notes: All associated encounter notes This section contains the clinical notes associated to the Encounter. Date/Time Encounter Note(s) Provider Source Jun 02, 2024 12:45 PM TELEHEALTH NOTE: LOCAL TITLE: [place] [employer] CAPABILITY ASSESSMENT STANDARD TITLE: TELEHEALTH NOTE DATE OF NOTE: JUN 02, 2024@12:45 ENTRY DATE: JUN 02, 2024@12:45:06 AUTHOR: FADY ESCALERA EXP COSIGNER: URGENCY: STATUS: COMPLETED Patient has successfully tested or used [employer]. /angie/ FADY ESCALERA telehealth clinical techician Signed: 06/02/2024 12:45 FADY ESCALERAYancy [facility]
--- OUTSIDE RECORDS SUMMARY | 2024-06-23 09:00 | XMS_ITS | Encounter Summary ---
Author Name [facility] [place] Organization [facility] [place] Address [address] [place] [address] Care Team Providers Care Business Services Assistant Name Role Phone LAURY KENYON Primary Care [...] PREFERRED PROVIDER ORGANIZAT ION (PPO) ARELIS ON [employer] Jun 03, 2017 [id number] ROXI WINKLER PATIENT [employer] [facility] (WNR) MEDICARE ADVANTAGE [facility] (WN) Sep 03, 2019 [id number] ROXI WINKLER JR PATIENT [employer] [facility] (WNR) MEDICARE ADVANTAGE [facility] (WNR) Sep 03, 2019 [id number] ROXI WINKLER [employer] [facility] (WNR) MEDICARE ADVANTAGE HUMAN A INSUR ANCE COM Apr 04, 2019 [id number] ROXI WINKLERA MCR (WNR) MEDICARE ADVANTAGE [facility] (WNR) Apr 03, 2019 [id number] ROXI WINKLERA MCR (WNR) MEDICARE ADVANTAGE [facility] (WNR) Apr 03, 2019 [id number] ROXI WINKLERA MCR (WNR) MEDICARE ADVANTAGE [facility] (WNR) Apr 03, 2019 [id number] ROXI WINKLER JR PHARMACY PRESCRIPT ION NONE Jun 03, 2017 NONE [id number] ROXI WINKLER MEDICARE PART D (WNR) MEDICARE (M) PART D Sep 03, 2023 PART D [id number] ROXI WINKLER JR PATIENT Selected Encounter This section includes the information on record at [place] for the Encounter. Date/Time Encounter Type Encounter Description Reason Provider Source Jun 23, 2024 01:00 PM OFFICE O/P EST HI 40 MIN ADMIN PAT ACTIVTIES (MASNONCT) ICD-10-CM M79.622 Pain in left upper arm GISELAAshwinYOHAN LAUREANO Adela Encounter Template Text not used by [place] Assessments - Encounter Diagnoses This section includes the primary and secondary diagnoses documented for the Encounter. Date/Time Primary/Secondary Diagnosis Diagnosis Name Provider Source Jun 23, 2024 01:57 PM PRIMARY Pain in left upper arm YOHAN PARRA [facility] Jun 23, 2024 01:57 PM SECONDARY Muscle weakness (generalized) YOHAN PARRA [facility] Jun 23, 2024 01:57 PM SECONDARY Type 2 diabetes mellitus without complications YOHAN PARRA [facility] Jun 23, 2024 01:57 PM SECONDARY Vertebrogenic low back pain YOHAN PARRA [facility] Plan of Treatment: Future Appointments (+ 6 months) and Future Tests (+/- 45 days) The Plan of Treatment section includes future care activities for the patient from all [facility] treatment[facility]ilities. This section includes future appointments and future orders which are active, pending or scheduled. Future Appointments This section includes appointments that were scheduled to occur 6 months from the date of the Encounter, up to a maximum of 20 appointments. The data comes from all [facility]. Appointment Date/Time Appointment Type Appointme nt Facility Name Jun 25, 2024 08:00 AM AMBULATORY - NONE [place] [facility] Sep 30, 2024 09:00 AM AMBULATORY - NONE [place] [facility] Oct 06, 2024 01:30 PM [facility] Oct 14, 2024 09:30 AM AMBULATORY - MEDICINE [place] [facility] Oct 14, 2024 10:00 AM AM[facility]ULATORY - MEDICINE [place] [facility] Oct 17, 2024 04:00 PM [facility] Nov 18, 2024 08:00 AM [facility] - NONE [place] [facility] Nov 21, 2024 09:00 AM [facility] Nov 21, 2024 11:20 AM AMBULATORY - MEDICINE [place] [facility] Dec 11, 2024 10:00 AM AMBULATORY - SURGERY [place] [facility] Active, Pending, and Scheduled Orders This section includes a listing of several types of active, pending, and scheduled orders, including clinic medications orders, diagnostic test orders, procedure orders and consult orders; where the start date of the order is 45 days before the date of the Encounter or 45 days after the date of theEncounter. The data comes from all [facility]. Test Date/Time Test Type Test Details Facility Name Aug 07, 2024 12:00 AM Laboratory - Chemi stry Order PANEL 1 [id number] SP ONCE [facility] Aug 07, 2024 12:00 AM Laboratory - Chemi stry Order MAGNESIUM [id number] SP ONCE [facility] Social History: Smoking Status (Most current) and Tobacco Use (All prior to encounter date) This section includes the most current, and the historical, smoking and tobacco- related health factors from the [place] facility where the Encounter took place. Current Smoking Status This section includes the most current smoking, or tobacco-related health factor, from the [place] facility where the Encounter took place. Date/Time Current Smoking Status Comment Anita bartholomew May 05, 2016 01:12 AM NON-TOBACCO USE INPATIENT [facility] Tobacco Use History This section includes a history of the smoking, or tobacco-related health factors, that were collected on or before the date of the Encounter. The data comes from the [place] facility where the Encounter took place. Date/Time Smoking Status/Tobacco Use Comment F acsabas Nov 24, 2015 04:48 PM NON-TOBACCO USE INPATIENT [facility] Oct 01, 2014 07:15 PM NON-TOBACCO USE INPATIENT [facility] Apr 10, 2005 01:20 PM HF V9 LIFETIME NON-SMOKER [facility] Nov 24, 2003 03:11 PM HF V9 LIFETIME NON-SMOKER [facility] Oct 07, 2002 02:26 PM HF V9 LIFETIME NON-SMOKER [facility] Advance Directives: All historical and current Section Date Range: From patient's date of to the date document was created. This section includes ALL of a patient's completed or amended [place] Advance and Rescinded Directives. The entries below indicate that a directive exists for the patient, but an actual copy is not included with this document. The data comes from all [place] facilities. Date Advance Directives Provider Source Sep 25, 2024 ADVANCE DIRECTIVE DISCUSSION ANTHONY IRVING [facility] Encounter Notes: All associated encounter notes This section contains the clinical notes associated to the Encounter. Date/Time Encounter Note(s) Provider Source Jun 23, 2024 02:01 PM MEDICATION MGT NOT E: LOCAL TITLE: OUTPATIENT ESSENTIAL MEDICATION LIST FOR REVIEW (EM STANDARD TITLE: MEDICATION MGT NOTE DATE OF NOTE: JUN 23, 2024@14:01 ENTRY DATE: JUN 23, 2024@14:01:44 AUTHOR: YOHAN PARRA EXP COSIGNER: URGENCY: STATUS: COMPLETED Review of medications include: Patient allergies (Remote and Local) and active and pending prescriptions dispensed from this [place] (local) and dispensed from another [place] or [place] facility (remote and pending) as well as local inpatient orders (pending and active) and clinic medications (IMOs), locally documented non-VA medications and local prescriptions that have or been discontinued in the past 90 days. With the exception of Allergies, if a category is not listed below, it means there were no relevant medications for the patient. ALLERGIES: ENALAPRIL, FOSINOPRIL, LOPID, NIASPAN 500MG ER TABLET, ATENOLOL, HYDRALAZINE VASOTEC, SIMVASTATIN, AMLODIPINE BESYLATE 5MG TABLET, SEMAGLUTIDE No Remote Allergy/ADR Data available for this patient ACTIVE OUTPATIENT MEDICATIONS LOCAL/REMOTE ALBUTEROL 90MCG (CFC-F) 200D ORAL INHL Directions: INHALE 2 PUFFS BY MOUTH EVERY 6 HOURS NEEDED FOR SHORTNESS OF BREATH Quantity: 3 for 90 days Issued: 06/17/24 Filled: 06/19/24 Expires: 06/18/25 Refills: 3 Status: ACTIVE ASCORBIC ACID 500MG TAB Directions: TAKE ONE TABLET BY MOUTH DAILY (TAKE WITH IRON SUPPLEMENT FOR BETTER ABSORPTION) Quantity: 100 for 90 days Issued: 12/28/23 Filled: 04/07/24 Expires: 12/28/24 Refills: 2 Status: ACTIVE BIKTARVY 50/200/25 TAB Directions: TAKE 1 TABLET BY MOUTH DAILY INFECTION Quantity: 90 for 90 days Issued: 02/20/24 Filled: 05/26/24 Expires: 02/20/25 Refills: 0 Status: ACTIVE BUMETANIDE 2MG TAB Directions: TAKE ONE TABLET BY MOUTH DAILY FOR FLUID (TAKE ADDITIONAL EVENING DOSE FOR 3LB WEIGHT GAIN IN 24 HOURS OR 5LB WEIGHT GAIN IN 1 WEEK) Quantity: 120 for 90 days Issued: 09/11/23 Filled: 04/07/24 Expires: 09/11/24 Refills: 2 Status: ACTIVE CHOLECALCIF 25MCG (D3-1,000UNIT) TAB Directions: TAKE ONE TABLET BY MOUTH DAILY FOR VITAMIN D SUPPLEMENT Quantity: 100 for 90 days Issued: 09/11/23 Filled: 04/25/24 Expires: 09/11/24 Refills: 2 Status: ACTIVE FERROUS SULFATE 324MG EC TAB Directions: TAKE 1 TABLET BY MOUTH DAILY FOR IRON SUPPLEMENT AND ANEMIA - TAKE WITH FOOD Quantity: 100 for 90 days Issued: 07/16/23 Filled: 05/12/24 Expires: 07/16/24 Refills: 0 Status: ACTIVE FINASTERIDE 5MG TAB Directions: TAKE ONE TABLET BY MOUTH DAILY FOR PROSTATE Quantity: 90 for 90 days Issued: 08/07/23 Filled: 05/30/24 Expires: 08/07/24 Refills: 0 Status: ACTIVE GABAPENTIN 300MG CAP Directions: TAKE THREE CAPSULES BY MOUTH EVERY MORNING AND TAKE THREE CAPSULES EVERY EVENING AND TAKE FOUR CAPSULES AT BEDTIME FOR NERVE PAIN Quantity: 300 for 30 days Issued: 06/18/24 Filled: 06/20/24 Expires: 06/19/25 Refills: 2 Status: ACTIVE GLUCOSE 4GM CHEW TAB Directions: CHEW 4 TABLETS (16 GRAMS OF CARBS) BY MOUTH DIRECTED NEEDED FOR LOW BLOOD SUGAR Quantity: 60 for 90 days Issued: 02/08/24 Filled: 02/09/24 Expires: 02/08/25 Refills: 3 Status: ACTIVE GLUCOSE SENSOR DEXCOM G6 Directions: USE SENSOR DIRECTED DIRECTED NEEDED Quantity: 9 for 90 days Issued: 07/20/23 Filled: 02/21/24 Expires: 07/20/24 Refills: 1 Status: ACTIVE GLUCOSE SENSOR DEXCOM G7 Directions: USE SENSOR DIRECTED NEEDED FOR BLOOD SUGAR MONITORING Quantity: 9 for 90 days Issued: 02/13/24 Filled: 05/04/24 Expires: 02/13/25 Refills: 2 Status: ACTIVE INSULIN CONC REG HUM 500 UNT/ML KWIKPEN Directions: INJECT 65 UNITS UNDER THE SKIN TWICE A DAY BEFORE MEALS FOR BLOOD SUGAR -KEEP REFRIGERATED UNTIL PEN IN USE, ONCE IN USE DISCARD AFTER 28 DAYS Quantity: 8 for 90 days Issued: 02/08/24 Filled: 02/09/24 Expires: 02/08/25 Refills: 3 Status: ACTIVE LIDOCAINE 5% 5IN X 6IN PATCH Directions: APPLY 2 PATCHES TO SKIN DAILY NEEDED FOR PAIN. (LEAVE ON 12 HOURS, THEN REMOVE FOR 12 HOURS) Quantity: 30 for 30 days Issued: 03/04/24 Filled: 03/05/24 Expires: 03/05/25 Refills: 11 Status: ACTIVE METHOCARBAMOL 750MG TAB Directions: TAKE ONE TABLET BY MOUTH EVERY 6 HOURS NEEDED FOR MUSCLE SPASM Quantity: 120 for 30 days Issued: 06/17/24 Filled: 06/19/24 Expires: 06/18/25 Refills: 5 Status: ACTIVE METOPROLOL TARTRATE 100MG TAB Directions: TAKE ONE TABLET BY MOUTH TWICE A DAY FOR BLOOD PRESSURE/HEART Quantity: 180 for 90 days Issued: 09/26/23 Filled: 05/21/24 Expires: 09/26/24 Refills: 2 Status: ACTIVE NEEDLE,PEN 31G,8MM Directions: USE NEEDLE NEEDLE,PEN 31G,5/16IN DEVICE DIRECTED FOR USE WITH U500 SONJAPEN Quantity: 200 for 90 days Issued: 02/08/24 Filled: 02/08/24 Expires: 02/08/25 Refills: 3 Status: ACTIVE OLODATEROL/TIOTROP 2.5MCG/ACTUAT 60D INH Directions: INHALE 2 PUFFS BY MOUTH EVERY MORNING FOR BREATHING Quantity: 3 for 90 days Issued: 06/17/24 Filled: 06/19/24 Expires: 06/18/25 Refills: 3 Status: ACTIVE PANTOPRAZOLE NA 40MG EC TAB Directions: TAKE ONE TABLET BY MOUTH TWICE A DAY FOR STOMACH. TAKE ON AN EMPTY STOMACH. Quantity: 180 for 90 days Issued: 09/11/23 Filled: 05/30/24 Expires: 09/11/24 Refills: 1 Status: ACTIVE SITAGLIPTIN (EQV-ZITUVIO) 100MG TAB Directions: TAKE ONE TABLET BY MOUTH DAILY FOR BLOOD SUGAR -REPLACES ALOGLIPTIN. STORE IN ORIGINAL CONTAINER. OPENED BOTTLES MUST BE USED WITHIN 3 MONTHS Quantity: 90 for 90 days Issued: 05/14/24 Filled: 05/14/24 Expires: 08/12/24 Refills: 0 Status: ACTIVE TAMSULOSIN HCL 0.4MG CAP Directions: TAKE ONE CAPSULE BY MOUTH EVERY EVENING FOR PROSTATE Quantity: 90 for 90 days Issued: 08/07/23 Filled: 05/30/24 Expires: 08/07/24 Refills: 0 Status: ACTIVE VENLAFAXINE HCL 150MG 24HR SA CAP Directions: TAKE ONE CAPSULE BY MOUTH DAILY FOR CHRONIC PAIN Quantity: 90 for 90 days Issued: 09/11/23 Filled: 04/07/24 Expires: 09/11/24 Refills: 1 Status: ACTIVE No remote medications found. PENDING OUTPATIENT MEDICATIONS (LOCAL/REMOTE): TRAMADOL HCL 50MG TAB Directions: TAKE TWO TABLETS BY MOUTH EVERY 6 HOURS NEEDED (USE SPARINGLY. SUPPLY MUST LAST 30 DAYS. CAUSES IMPAIRMENT, RECOMMEND NOT TO DRIVE ON THIS MEDICATION.) Quantity: 180 Special: TAKE TWO TABLETS PO Q6H PRN Status: PENDING No remote medications found. ACTIVE NONVA MEDICATIONS (LOCAL): ASPIRIN 81MG EC TAB Directions: 81MG MOUTH DAILY Status: ACTIVE OUTPATIENT MEDICATIONS (LOCAL)WITHIN 90 DAYS: No local medications found. DISCONTINUED OUTPATIENT MEDICATIONS (LOCAL) WITHIN 90 DAYS: ALBUTEROL 90MCG (CFC-F) 200D ORAL INHL Directions: INHALE 2 PUFFS BY MOUTH EVERY 6 HOURS NEEDED FOR SHORTNESS OF BREATH Quantity: 3 for 90 days Issued: 09/11/23 Filled: 09/12/23 Expires: 09/11/24 Refills: 3 Status: DISCONTINUED ALOGLIPTIN 12.5MG TAB Directions: TAKE ONE TABLET BY MOUTH DAILY FOR BLOOD SUGAR Quantity: 90 for 90 days Issued: 01/14/24 Filled: 05/12/24 Expires: 01/14/25 Refills: 0 Status: DISCONTINUED BIKTARVY 50/200/25 TAB Directions: TAKE 1 TABLET BY MOUTH DAILY INFECTION Quantity: 90 for 90 days Issued: 03/29/23 Filled: 06/26/23 Expires: 03/29/24 Refills: 0 Status: DISCONTINUED BIKTARVY 50/200/25 TAB Directions: TAKE 1 TABLET BY MOUTH DAILY INFECTION Quantity: 30 for 30 days Issued: 11/03/23 Filled: 12/03/23 Expires: 11/03/24 Refills: 0 Status: DISCONTINUED BIKTARVY 50/200/25 TAB Directions: TAKE 1 TABLET BY MOUTH DAILY INFECTION Quantity: 30 for 30 days Issued: 12/28/23 Filled: 02/08/24 Expires: 12/28/24 Refills: 0 Status: DISCONTINUED EMPAGLIFLOZIN 25MG TAB Directions: TAKE ONE-HALF TABLET BY MOUTH EVERY MORNING FOR BLOOD SUGAR Quantity: 45 for 90 days Issued: 07/20/23 Filled: 11/11/23 Expires: 07/20/24 Refills: 2 Status: DISCONTINUED EMPAGLIFLOZIN 25MG TAB Directions: TAKE ONE-HALF TABLET BY MOUTH EVERY MORNING FOR BLOOD SUGAR Quantity: 45 for 90 days Issued: 02/08/24 Filled: 05/12/24 Expires: 02/08/25 Refills: 2 Status: DISCONTINUED GABAPENTIN 300MG CAP Directions: TAKE THREE CAPSULES BY MOUTH EVERY MORNING AND TAKE THREE CAPSULES EVERY EVENING AND TAKE FOUR CAPSULES AT BEDTIME FOR NERVE PAIN Quantity: 300 for 30 days Issued: 04/16/23 Filled: 06/13/23 Expires: 04/16/24 Refills: 0 Status: DISCONTINUED GABAPENTIN 300MG CAP Directions: TAKE THREE CAPSULES BY MOUTH EVERY MORNING AND TAKE THREE CAPSULES EVERY EVENING AND TAKE FOUR CAPSULES AT BEDTIME FOR NERVE PAIN Quantity: 300 for 30 days Issued: 08/24/23 Filled: 11/08/23 Expires: 08/24/24 Refills: 0 Status: DISCONTINUED GABAPENTIN 300MG CAP Directions: TAKE THREE CAPSULES BY MOUTH EVERY MORNING AND TAKE THREE CAPSULES EVERY EVENING AND TAKE FOUR CAPSULES AT BEDTIME FOR NERVE PAIN Quantity: 300 for 30 days Issued: 11/21/23 Filled: 02/08/24 Expires: 11/21/24 Refills: 0 Status: DISCONTINUED GABAPENTIN 300MG CAP Directions: TAKE THREE CAPSULES BY MOUTH EVERY MORNING AND TAKE THREE CAPSULES EVERY EVENING AND TAKE FOUR CAPSULES AT BEDTIME FOR NERVE PAIN Quantity: 300 for 30 days Issued: 03/04/24 Filled: 05/21/24 Expires: 03/05/25 Refills: 0 Status: DISCONTINUED GLUCOSE 4GM CHEW TAB Directions: CHEW 4 TABLETS (16 GRAMS OF CARBS) BY MOUTH DIRECTED NEEDED FOR LOW BLOOD SUGAR Quantity: 60 for 90 days Issued: 07/20/23 Filled: 07/21/23 Expires: 07/20/24 Refills: 3 Status: DISCONTINUED INSULIN CONC REG HUM 500 UNT/ML KWIKPEN Directions: INJECT 70 UNITS UNDER THE SKIN EVERY MORNING AND INJECT 60 UNITS EVERY EVENING FOR BLOOD SUGAR -KEEP REFRIGERATED UNTIL PEN IN USE, ONCE IN USE DISCARD AFTER 28 DAYS Quantity: 8 for 90 days Issued: 07/20/23 Filled: 12/28/23 Expires: 07/20/24 Refills: 2 Status: DISCONTINUED LOSARTAN 50MG TAB Directions: TAKE ONE TABLET BY MOUTH DAILY FOR BLOOD PRESSURE Quantity: 90 for 90 days Issued: 09/11/23 Filled: 09/12/23 Expires: 09/11/24 Refills: 3 Status: DISCONTINUED METHOCARBAMOL 750MG TAB Directions: TAKE ONE TABLET BY MOUTH EVERY 6 HOURS NEEDED FOR MUSCLE SPASM Quantity: 120 for 30 days Issued: 06/26/23 Filled: 05/12/24 Expires: 06/26/24 Refills: 0 Status: DISCONTINUED NEEDLE,PEN 31G,8MM Directions: USE NEEDLE NEEDLE,PEN 31G,5/16IN DEVICE DIRECTED FOR USE WITH U500 KWICKPEN Quantity: 200 for 90 days Issued: 07/20/23 Filled: 09/14/23 Expires: 07/20/24 Refills: 3 Status: DISCONTINUED OLODATEROL/TIOTROP 2.5MCG/ACTUAT 60D INH Directions: INHALE 2 PUFFS BY MOUTH EVERY MORNING FOR BREATHING Quantity: 3 for 90 days Issued: 09/11/23 Filled: 09/12/23 Expires: 09/11/24 Refills: 3 Status: DISCONTINUED SEMAGLUTIDE 0.25MG/0.375ML INJ PEN 3ML Directions: INJECT 0.25MG UNDER THE SKIN EVERY WEEK FOR BLOOD SUGAR Quantity: 1 for 56 days Issued: 07/20/23 Filled: 07/21/23 Expires: 07/20/24 Refills: 6 Status: DISCONTINUED TRAMADOL HCL 50MG TAB Directions: TAKE ONE TABLET BY MOUTH EVERY 6 HOURS NEEDED FOR PAIN (USE SPARINGLY. SUPPLY MUST LAST 30 DAYS. CAUSES IMPAIRMENT, RECOMMEND NOT TO DRIVE ON THIS MEDICATION.) Quantity: 120 for 30 days Issued: 12/14/23 Filled: 02/22/24 Expires: 06/15/24 Refills: 0 Status: DISCONTINUED ALOGLIPTIN 25MG TAB Directions: TAKE ONE TABLET BY MOUTH DAILY FOR BLOOD SUGAR Quantity: 90 for 90 days Issued: 08/16/23 Filled: 11/11/23 Expires: 08/16/24 Refills: 0 Status: DISCONTINUED (EDIT) LOSARTAN 100MG TAB Directions: TAKE ONE TABLET BY MOUTH DAILY FOR BLOOD PRESSURE Quantity: 90 for 90 days Issued: 08/07/23 Filled: 08/07/23 Expires: 08/07/24 Refills: 3 Status: DISCONTINUED (EDIT) TRAMADOL HCL 50MG TAB Directions: TAKE ONE TABLET BY MOUTH EVERY 6 HOURS NEEDED FOR PAIN (USE SPARINGLY. SUPPLY MUST LAST 30 DAYS. CAUSES IMPAIRMENT, RECOMMEND NOT TO DRIVE ON THIS MEDICATION.) Quantity: 120 for 30 days Issued: 04/07/24 Filled: 05/30/24 Expires: 10/08/24 Refills: 1 Status: DISCONTINUED (EDIT) CLINIC MEDICATIONS (LOCAL): No local medications found. /angie/ YOHAN PARRA Staff Physician Signed: 06/23/2024 14:YOHAN MAYS-KAREND [facility] Jun 23, 2024 09:29 AM PRIMARY CARE NOTE: LOCAL TITLE: V9 [facility] PRIMARY CARE NOTE STANDARD TITLE: PRIMARY CARE NOTE DATE OF NOTE: JUN 23, 2024@09:29 ENTRY DATE: JUN 23, 2024@09:29:20 AUTHOR: YOHAN PARRA EXP COSIGNER: URGENCY: STATUS: COMPLETED PRIMARY CARE CLINICAL RES[facility] VVC [ ]New patient [ ]Follow-up [ X]Interim/Walk-in Patient identity confirmed with: Full name: ROXI WINKLER JR Full SSN#: [id number] : Apr Location: Home address: Mr. ROXI WINKLER [address] [place] [address] Other: Emergency contact: william Chu Emergency Use Only: [id number] Instructions Verbal consent obtained for the virtual visit. was given the option to be seen [id number], or other visit modality. Spencer was also given the option to decline a virtual visit. Patient accompanied by: Daughter CHIEF COMPLAINT: Follow-up for continuation of home health physical therapy HPI: === 69 year old WHITE MALE is seen by [facility] to qualify for home health care/physical therapy. states he has been having significant amounts of pain in multiple areas. He fractured his left humeral neck in March. Spencer was treated [facility]. was seen by orthopedics and the fracture was nonoperative. Elpidio states he was discharged from the hospital in 2 days and put into rehabilitation. Elpidio states the fracture was reinjured during initial therapy. Since elpidio has been home he continues to have significant pain in the left arm. He states the arm is generally weak due to lack of use. There also relates significant low back pain which has been chronic though exacerbated due to his immobility. He does state that he uses a walker has significant generalized weakness to his lower extremities and has multiple falls. Is currently taking tramadol 50 mg 3 times a day which elpidio states is not significantly decreasing the pain at this time. Elpidio relates that his home oxygen needs humidification. He has a portable oxygen concentrator that has 1 battery. Battery is only lasting 2 hours and elpidio does not have a backup battery. REVIEW OF SYSTEMS: The Following Systems have been reviewed. General: No fever, No chills Skin: No rash Eyes: No diplopia, No change in vision ENT: No vertigo, No tinnitus, No epistaxis Respiratory: No cough, No hemoptysis, has chronic dyspnea with exertion on supplemental oxygen Cardiac: No chest pain, No palpitations GI: No nausea, No vomiting, No diarrhea, has chronic constipation : No dysuria, No hematuria Musculoskeletal: No arthralgia, No myalgia Endoscrine: No heat/cold intolerance, No polyuria Hematology: No prolonged bleeding Neuro: No bowel\bladder incontinence,No focal motor weakness Psychiatry: No depression, No SI, No HI NON-VA PROVIDERS: None PAST MEDICAL AND SURGICAL HISTORY: Hypoxemia on supplemental oxygen, HIV, hyperlipidemia, vitamin D deficiency, depression, obstructive sleep apnea, heart failure with preserved ejection fraction, COPD, T7 and T9 vertebral fracture, type 2 diabetes mellitus, diabetic retinopathy and nephropathy, GERD, coronary artery disease, chronic venous insufficiency with lower extremity edema, degenerative disc disease of the cervical spine, iron deficiency anemia, orthostatic hypotension, hypertension, chronic pain syndrome, osteoporosis, BPH, humerus fracture, multiple falls, degenerative disc disease lumbar spine, thoracic aortic aneurysm ======= HEALTH CARE MAINTENANCE: - LDCT: Not indicated. Never smoker. - AAA: Not indicated. Never smoker. - COLONOSCOPY: 04/2015 with TA x4 (all without dysplasia). Repeat 3yr 04/2018 overdue. At that time recommended for GI Clinic visit to discuss risks/benefits of continuing. Spencer declined GI appointment and declined repeat colonoscopy. FIT - 08/2019 (though FIT inappropriate in setting of prior TAs). Spencer had continued to decline. SOCIAL HISTORY: SERVICE: [employer]. 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 HOME/FAMILY: from his . Living alone in [facility]. They have 2 children and 3 grandchildren who all live nearby. TOBACCO: Never Smoker. Significant 2nd hand exposure. ALCOHOL: Denies. ILLICITS: Denies. ALLERGIES: ========= ENALAPRIL, FOSINOPRIL, LOPID, NIASPAN 500MG ER TABLET, ATENOLOL, HYDRALAZINE VASOTEC, SIMVASTATIN, AMLODIPINE BESYLATE 5MG TABLET, SEMAGLUTIDE OBJECTIVE: ========= Temperature: 97.6 F [36.4 C] (02/19/2024 10:01) Pulse: 75 (02/19/2024 10:01) Respiration: 20 (11/15/2023 14:13) Blood Pressure: 97/64 (02/19/2024 10:01) Pulse Oximetry: 89% (02/19/2024 10:01) Weight: 264.0 lb [119.75 kg] (02/19/2024 10:01) Height: 71 in [180.3 cm] (11/15/2023 12:52) BMI: BODY MASS INDEX - 36.9 Pain Assessment: 7 (02/19/2024 10:01) VVC PHYSICAL EXAM: GEN: Alert and Oriented x3, NAD, Appearance and affect appropriate HEENT: No change in voice NEURO: speech Normal,No tremor Exam limited due to virtual video evaluation. Examination and observations done with the cooperation of patient. Test Results: -- Specimen Collection Date: Nov 15, 2023@15:21 Test name Result units Ref. range Site Code GLYCOHEMOGLOBIN 7.3 H % 4.4 - 6.4 [6033] ASSESSMENT AND PLAN: 1. Left upper extremity pain-related to recent left humeral neck fracture. We will increase tramadol to 100 mg 3 times a day as needed and placed physical therapy consult 2. Low back pain secondary to degenerative disc disease-treatment plan as above 3. Generalized lower extremity weakness- has a history of recurrent falls and gait instability. Will order physical therapy 4. COPD with chronic hypoxemia. Currently on supplemental oxygen-will consult oxygen therapy for a second battery for portable oxygen concentrator and to place humidification in the home oxygen system 5. Type 2 diabetes mellitus-continue follow-up with endocrinology PCP Follow-up: 6 months Time spent: [ ] 30 mins [ ] 45 mins [X] 60 mins was instructed to call [facility] or utilize Secure Message for questions or concerns. Spencer also educated on use of [facility] or ER for acute or worsening symptoms. Avg Risk Colorectal Cancer Screen: AVERAGE RISK colorectal cancer screening is due based on information available to this clinical reminder Defer reminder for 3 months Reason: Due to severe pain and fracture of left humerus. will be undergoing physical therapy Assess Statin Use - Lipids (CVD/DM): The patient declines to be treated with a statin. Comment: Spencer has intolerance to statins /es/ YOHAN PARRA Staff Physician Signed: 06/23/2024 14:01 AIDA,YOHAN LAUREANO PIOCHE-Yancy [facility]
--- OUTSIDE RECORDS SUMMARY | 2024-09-04 06:22 | XMS_ITS | Encounter Summary ---
Author Name [facility] [facility] [place] Address [address] [place] [address] Care Team Providers Care Pit Steward Name Role Phone LAURY KENYON Primary Care [...] [employer] Jun 03, 2017 [id number] ROXI WINKLER PATIENT [employer] [facility] (WNR) MEDICARE ADVANTAGE [facility] (WNR) Sep 03, 2019 [id number] ROXI WINKLER JR PATIENT [employer] [facility] (WNR) MEDICARE ADVANTAGE [facility] (WNR) Sep 03, 2019 [id number] [phone] ROXI WINKLERA MCR (WNR) MEDICARE ADVANTAGE HUMAN A INSUR ANCE COM Apr 04, 2019 [id number] ROXI WINKLER [employer] MCR (WNR) MEDICARE ADVANTAGE MCR (WNR) Apr 03, 2019 [id number] ROXI WINKLER [employer] MCR (WNR) MEDICARE ADVANTAGE MCR (WNR) Apr 03, 2019 [id number] ROXI WINKLERA MCR (WNR) MEDICARE ADVANTAGE MCR (WNR) Apr 03, 2019 [id number] [phone] ROXI WINKLER JR PHARMACY PRESCRIPT ION NONE Jun 03, 2017 NONE [id number] ROXI WINKLER MEDICARE PART D ([place]) MEDICARE (M) PART D Sep 03, 2023 PART D [id number] ROXI WINKLER JR PATIENT Selected Encounter This section includes the information on record at [place] for the Encounter. Date/Time Encounter Type Encounter Description Reason Pro vider Source Sep 04, 2024 10:22 AM Outpatient Encounter ADMIN PAT ACTIVTIES (MASNONCT) I[facility] Encounter Template Text not used by [place] Plan of Treatment: Future Appointments (+ 6 months) and Future Tests (+/- 45 days) The Plan of Treatment section includes future care activities for the patient from all [place] treatmentfacilities. This section includes future appointments and future orders which are active, pending or scheduled. Future Appointments This section includes appointments that were scheduled to occur 6 months from the date of the Encounter, up to a maximum of 20 appointments. The data comes from all [place] treatment facilities. Appointment Date/Time Appointment Type Appointme nt Facility Name Sep 30, 2024 09:00 AM AMBULATORY - NONE STEPHEN Barnes [facility] Oct 06, 2024 01:30 PM AMBULATORY - MEDICINE [place] [facility] Oct 14, 2024 09:30 AM AMBULATORY - MEDICINE [place] [facility] Oct 14, 2024 10:00 AM AMBULATORY - MEDICINE [facility] [facility] Oct 17, 2024 04:00 PM AMBULATORY - MEDICINE [place] [facility] Nov 18, 2024 08:00 AM AMBULATORY - NONE [place] [facility] Nov 21, 2024 09:00 AM AMBULATORY - MEDICINE [facility] [facility] Nov 21, 2024 11:20 AM AMBULATORY - MEDICINE [facility] [facility] Dec 11, 2024 10:00 AM AMBULATORY - SURGERY [place] ZACH [facility] Dec 23, 2024 01:30 PM AMBULATORY - SURGERY [place] [facility] January 06, 2025 10:30 AM AMBULATORY - REHAB MEDICIN E [facility] January 06, 2025 02:00 PM [facility] January 30, 2025 11:00 AM AMBULATORY - NONE [place] [facility] Feb 17, 2025 02:00 PM [facility] Active, Pending, and Scheduled Orders This section includes a listing of several types of active, pending, and scheduled orders, including clinic medications orders, diagnostic test orders, procedure orders and consult orders; where the start date of the order is 45 days before the date of the Encounter or 45 days after the date of theEncounter. The data comes from all [place] treatment facilities. Test Date/Time Test Type Test Details Facility Name Aug 07, 2024 12:00 AM Laboratory - Chemi stry Order PANEL 1 [id number] SP ONCE [facility] Aug 07, 2024 12:00 AM Laboratory - Chemi stry Order MAGNESIUM [id number] SP ONCE [facility] Social History: Smoking Status (Most current) and Tobacco Use (All prior to encounter date) This section includes the most current, and the historical, smoking and tobacco- related health factors from the [place] facility where the Encounter took place. Current Smoking Status This section includes the most current smoking, or tobacco-related health factor, from the [place] facility where the Encounter took place. Date/Time Current Smoking Status Comment Facil [facility] May 05, 2016 01:12 AM NON-TOBACCO USE INPATIENT [facility] Tobacco Use History This section includes a history of the smoking, or tobacco-related health factors, that were collected on or before the date of the Encounter. The data comes from the [place] facility where the Encounter took place. Date/Time Smoking Status/Tobacco Use Comment F acility Nov 24, 2015 04:48 PM NON-TOBACCO USE INPATIENT [facility] Oct 01, 2014 07:15 PM NON-TOBACCO USE INPATIENT [facility] Apr 10, 2005 01:20 PM HF V9 LIFETIME NON-SMOKER [facility] Nov 24, 2003 03:11 PM HF V9 LIFETIME NON-SMOKER [facility] Oct 07, 2002 02:26 PM HF V9 LIFETIME NON-SMOKER [facility] Advance Directives: All historical and current Section Date Range: From patient's date of to the date document was created. This section includes ALL of a patient's completed or amended [place] Advance and Rescinded Directives. The entries below indicate that a directive exists for the patient, but an actual copy is not included with this document. The data comes from all [place] facilities. Date Advance Directives Provider Source Sep 25, 2024 ADVANCE DIRECTIVE DISCUSSION ANTHONY IRVING [facility] Encounter Notes: All associated encounter notes This section contains the clinical notes associated to the Encounter. Date/Time Encounter Note(s) Provider Source Sep 04, 2024 10:22 AM ADMINISTRATIVE NOT E: LOCAL TITLE: CLERICAL/ADMIN NOTE STANDARD TITLE: ADMINISTRATIVE NOTE DATE OF NOTE: SEP 04, 2024@10:22 ENTRY DATE: SEP 04, 2024@10:22:35 AUTHOR: DAMIAN STORY EXP COSIGNER: URGENCY: STATUS: COMPLETED Received fax from [facility]. Placed in msa box for pcp to receive. /angie/ DAMIAN STORY [employer] Signed: 09/04/2024 10:23 DAMIAN STORY [facility]
--- OUTSIDE RECORDS SUMMARY | 2024-09-10 05:53 | XMS_ITS ---
Author Name [facility] [place] [facility] [place] Address [address] [place] [address] Care Team Providers Care Senior Hr Manager Name Role Phone LAURY KENYON Primary Care Provider Unavailab SHIMON Alex Unavailable Unavailable RICK FREEMAN Unavailable Unavailable REEMA BENDER Unavailable Unavailable NATASHA PICKENS Unavailable Unavailable JENY STORYE Unavailable Unavailable ALONSO IRVING Unavailable Unavailable Insurance [...] Policy [place] HUMANA CLAIMS/[place] MEDICAL PREFERRED PROVIDER ORGANIZGABINO REYNA (PPO) ARELIS ON [employer]ADY Jun 03, 2017 [id number] ROXI WINKLER PATIENT HUMANA MCR (WNR) MEDICARE ADVANTAGE [facility] (WNR) Sep 03, 2019 [id number] ROXI WINKLER JR PATIENT HUMANA MCR (WNR) MEDICARE ADVANTAGE [facility] (WNR) Sep 03, 2019 [id number] ROXI WINKLERA MCR (WNR) MEDICARE ADVANTAGE HUMAN A INSUR ANCE COM Apr 04, 2019 [id number] ROXI WINKLERA MCR (WNR) MEDICARE ADVANTAGE MCR (WNR) Apr 03, 2019 [id number] ROXI WINKLERA MCR (WNR) MEDICARE ADVANTAGE MCR (WNR) Apr 03, 2019 [id number] ROXI WINKLERA MCR (WNR) MEDICARE ADVANTAGE [facility] (WNR) Apr 03, 2019 [id number] ROXI WINKLER JR PHARMACY PRESCRIPT ION NONE Jun 03, 2017 NONE [id number] ROXI WINKLER MEDICARE PART D (WNR) MEDICARE (M) PART D Sep 03, 2023 PART D [id number] ROXI WINKLER JR PATIENT Selected Encounter This section includes the information on record at CT for the Encounter. 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 Date/Time Primary/Secondary Diagnosis Diagnosis Name Provider Source Sep 12, 2024 04:11 PM PRIMARY Chronic obstructive pulmonary disease, unspecified ADAN KENYON [facility] Sep 12, 2024 04:11 PM SECONDARY Age-related osteoporosis w/o current pathological fracture ADAN KENYON [facility] Sep 12, 2024 04:11 PM SECONDARY Benign prostatic hyperplasia without lower urinry tract symp ADAN KENYON [facility] Sep 12, 2024 04:11 PM SECONDARY Chronic respiratory failure with hypoxia ADAN KENYON [facility] Sep 12, 2024 04:11 PM SECONDARY Essential (primary) hypertension ADAN KENYON [facility] Sep 12, 2024 04:11 PM SECONDARY Gastro-esophageal reflux disease without esophagitis ADAN KENYON Makeda TIRADO-CD D [facility] Sep 12, 2024 04:11 PM SECONDARY Heart failure, unspecified ADAN KENYON Makeda TIRADO-CD D [facility] Sep 12, 2024 04:11 PM SECONDARY Iron deficiency anemia, unspecified ADAN KENYON Makeda TIRADO- Yancy [facility] Sep 12, 2024 04:11 PM SECONDARY 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 ADAN KENYON Makeda TIRADO-CD Yancy [facility] Sep 12, 2024 04:11 PM SECONDARY Obesity, unspecified ADAN KENYON Thompson TIRADO-CD D [facility] Sep 12, 2024 04:11 PM SECONDARY Other chronic pain ADAN KENYON Makeda TIRADO- Yancy [facility] Sep 12, 2024 04:11 PM SECONDARY Type 2 diabetes mellitus with diabetic neuropathy, unsp ADAN KENYON Makeda TIRADO-KAREN Haines [facility] Sep 12, 2024 04:11 PM SECONDARY Vitamin deficiency, unspecified FRANKLIN KENYONMichaela HELM Yancy [facility] Plan of Treatment: Future Appointments (+ 6 months) and Future Tests (+/- 45 days) The Plan of Treatment section includes future care activities for the patient from all [facility]. This section includes future appointments and future orders which are active, pending or scheduled. Future Appointments This section includes appointments that were scheduled to occur 6 months from the date of the Encounter, up to a maximum of 20 appointments. The data comes from all [facility]. Appointment Date/Time Appointment Type Appointme nt Facility Name Sep 30, 2024 09:00 AM [facility]ORY - N[facility] Oct 06, 2024 01:30 PM [facility] Oct 14, [facility]24 09:30 AM AMBULATORY - MEDICINE [place] GALLEGOS-Yancy [facility] Oct 14, 2024 10:00 AM AM[facility]ATORY - [facility]IC[facility] Oct 17, 2024 04:00 PM AMBULATORY - MEDICINE [facility] Nov 18, 2024 08:00 AM AMBULATORY - NONE [facility] Nov 21, 2024 09:00 [facility] Nov 21, 2024 11:20 AM [facility]ULATORY - MEDICINE [facility]O [facility] Dec 11, 2024 10:00 AM AMBULATORY - SURGERY [place] [facility] Dec 23, 2024 01:30 PM AMBULATORY - SURGERY [place] [facility] January 06, 2025 10:30 AM AMBULATORY - REHAB MEDICIN E [facility] January 06, 2025 02:00 PM [facility] January 30, 2025 11:00 AM AMBULATORY - NONE [facility] Feb 17, 2025 02:00 PM [facility] Active, Pending, and Scheduled Orders This section includes a listing of several types of active, pending, and scheduled orders, including clinic medications orders, diagnostic test orders, procedure orders and consult orders; where the start date of the order is 45 days before the date of the Encounter or 45 days after the date of theEncounter. The data comes from all [place] treatment facilities. Test Date/Time Test Type Test Details Facility Name Aug 07, 2024 12:00 AM Laboratory - Chemi stry Order PANEL 1 [id number] SP ONCE [facility] Aug 07, 2024 12:00 AM Laboratory - Chemi stry Order MAGNESIUM [id number] SP ONCE [facility] Social History: Smoking Status (Most current) and Tobacco Use (All prior to encounter date) This section includes the most current, and the historical, smoking and tobacco- related health factors from the [place] facility where the Encounter took place. Current Smoking Status This section includes the most current smoking, or tobacco-related health factor, from the [place] facility where the Encounter took place. Date/Time Current Smoking Status Comment Anita ity May 05, 2016 01:12 AM NON-TOBACCO USE INPATIENT [facility] Tobacco Use History This section includes a history of the smoking, or tobacco-related health factors, that were collected on or before the date of the Encounter. The data comes from the [place] facility where the Encounter took place. Date/Time Smoking Status/Tobacco Use Comment F acility Nov 24, 2015 04:48 PM NON-TOBACCO USE INPATIENT [facility] Oct 01, 2014 07:15 PM NON-TOBACCO USE INPATIENT [facility] Apr 10, 2005 01:20 PM HF V9 LIFETIME NON-SMOKER [facility] Nov 24, 2003 03:11 PM HF V9 LIFETIME NON-SMOKER [facility] Oct 07, 2002 02:26 PM HF V9 LIFETIME NON-SMOKER [facility] Advance Directives: All historical and current Section Date Range: From patient's date of to the date document was created. This section includes ALL of a patient's completed or amended CT Advance and Rescinded Directives. The entries below indicate that a directive exists for the patient, but an actual copy is not included with this document. The data comes from all [place] facilities. Date Advance Directives Provider Source Sep 25, 2024 ADVANCE DIRECTIVE DISCUSSION ANTHONY IRVING [facility] Encounter Notes: All associated encounter notes This section contains the clinical notes associated to the Encounter. Date/Time Encounter Note(s) Provider Source Sep 10, 2024 09:55 AM [facility] NOTE: LOCAL TITLE: [facility] PROVIDER PROGRESS NOTE STANDARD TITLE: [facility] NOTE DATE OF NOTE: SEP 10, 2024@09:55 ENTRY DATE: SEP 10, 2024@09:55:45 AUTHOR: LAURY KENYON COSIGNER: URGENCY: STATUS: COMPLETED Time of home visit: Sep@09:56 Length of home visit: 60 min. and 20 minutes for advanced care planning Patient Identifiers: Name , Address, Facial recognition CC: visit to admit patient to [facility] HPI: Mr. Winkler has a hx including but not limited to weaknees and multiple falls resulting in fractures, non-operative lumbar stenosis, declining function, chronic venous stasis dermatitis, copd, type 2 diabetes with neuropathy, chronic pain, HTN, GERD, SONNY, BPH, HFpEF, and obesity. He was referred to [facility] after a hospitalization Aug 11. He was evaluated by PT/OT inpatient and was discharged ohome with a rolling walker. His venous stasis wounds have since healed/scabbed over and he is leaving them open to air. COPD Chronic hypoxic/hypercapneic respiratory failure - 09/08/20 PFTs Gold 3, severe copd with significant air trapping. Using stiolto and albuterol inhaler, home oxygen 2- 3 liters at rest. Osteopenia- takes cholecalciferol 1000 units daily with hx of 3 pathological fractures. Was referred to bone and mineral at but failed to schedule. 09/12/18 DEXA osteopenia Chronic pain- patient reports pain in his neck, shoulder, and left arm bothers him the most. He also has pain in the low to mid back and left knee. He take venlafaxine SA 150 mg, tramadol 50 mg total of 4 tablets daily, and methocarbamol 750 bid for muscle spasm, and uses lidocaine patches. Follows pain pharmacology team. Type 2 diabetes mellitus with neuropathy- follows [facility]. Using Concentrated insulin pen 65 units bid with continuous dexcom monitoring.Also takes empagliflozin 12.5 mg, gabapentin 600 mg am, 900 mg noon, and 900mg evening for neuropathy. November 2023 AIC 7.3%. Hypertension- takes metoprolol 100 mg bid. GERD- takes pantoprazole 40 mg once daily. Denies heartburn but has gas and bloating. Iron deficiency anemia- takes ferrous sulfate 324 mg and vitamin C 500 mg. HIV pos- follows ID, takes biktarvy 50/200/25 one tab daily. HFpEF- takes bumex 2 mg daily. 2018 ECHO unremarkable. Obesity- February 2024 bmi 36.9 BPH- takes finasteride 5 mg and tamsulosin 0.4 mg. PAST HISTORY: PROBLEM LIST: Code Description J44.9 Chronic obstructive pulmonary disease ([facility] [id number]) M79.622 Closed fracture of left humerus ([facility] [id number]) Z96.1 Pseudophakia ([facility] [id number]) H25.811 Bilateral senile combined form cataracts of eyes ([facility] [id number]) H25.812 Bilateral senile combined form cataracts of eyes ([facility] [id number]) E11.3391 Moderate nonproliferative diabetic retinopathy of right eye ([facility] [id number]) E11.3392 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 ([facility] [id number]) R69. Fracture of thoracic spine ([facility] [id number]) J96.11 Chronic hypoxemic respiratory failure ([facility] [id number]) R69. Aneurysm of thoracic aorta ([facility] [id number]) M25.562 Pain in left knee ([facility] [id number]) B20. Human immunodeficiency virus ([facility] [id number]) E78.2 Mixed hyperlipidemia ([facility] [id number]) E56.9 Vitamin D deficiency ([facility] 79053663) R31.21 Microscopic hematuria ([facility] [id number]) J96.21 Respiratory failure ([facility] [id number]) I25.10 Coronary arteriosclerosis ([facility] [id number]) E11.9 Type 2 diabetes mellitus without complication ([facility] [id number]) E78.5 Gastroesophageal reflux disease ([facility] [id number]) Z86.010 History of polyp of colon ([facility] [id number]) M54.2 Cervicalgia ([facility] [id number]) I87.2 Venous stasis ([facility] [id number]) I10. Benign essential hypertension ([facility] [id number]) M54.5 Low back pain ([facility] [id number]) 211.3 Benign neoplasm of colon (ICD-9-CM 211.3) 780.79 Other Malaise and Fatigue (ICD-9-CM 780.79) V58.67 Long-Term (current) Use of Insulin (ICD-9-CM V58.67) 459.81 Peripheral venous insufficiency (ICD-9-CM 459.81) 278.00 Simple obesity (ICD-9-CM 278.00) 327.23 Obstructive Sleep APNEA (ADULT) (Pediatric) (ICD-9-CM 327.23) 311. 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 Father with prostate CA. REVIEW OF SYSTEMS: - REPORTED BY: [X]Self [ ]Family (Spouse/Children/Partner/Oth er Family). Name: [ ]Non-Family Caregiver/Attendant. Name: [ ]No Attendant. Unable to obtain. - GENERAL: No Reduced energy No Fever No Diaphoresis No Chills No Weight changes No Other symptoms - EYES: No Change in vision No Redness/Irritation No Diplopia No Flashes No Spots in vision No Other symptoms - ENT: No Nasal congestion or coryza No Sore throat No Earache No Ear drainage or bleeds No Change in hearing No Other symptoms - RESPIRATORY: No Cough No Sputum No Hemoptysis No Wheezing No Chest congestion y dyspnea on exertion requiring temporary increase in oxygen - CARDIOVASCULAR: No Chest pain No Palpitation No PND No Orthopnea No Other symptoms - GASTROENTERIC: No Nausea No Vomiting No Diarrhea No Constipation No Incontinence of stools No Fresh blood in stools No Otilia No Pain/cramps abdomen No Other symptoms - : No Burning urine No Blood in urine No Urgency of urine No Hesitancy or obstruction of urine No Incontinence of urine No Other symptoms - MSK: No Joint swelling No Joint tenderness No Redness of joints No Muscle pain, cramps or spasm No Other symptoms - NEURO: No Problems with memory No Episodes of confusion No Focal weakness/loss of movement No Focal numbness/tingling/burning No Seizures No Tremors, loss of balance No Slurring of speech No Altered or lost consciousness No Other symptoms - SKIN: large hematoma on left lower abdomen No Rash No Ulcers No Skin discoloration No Other symptoms PAIN SCREEN: HISTORY OF PAIN PRESENT: Possible pain behaviors: Location: neck, shoulders, low back, lower extremities Intensity: 4/10 today, sometimes goes to 9/10 Acceptable/tolerable level for patient: 5 Cause (origin of pain): DDD, osteoarthritis, multiple trauma, neuropathy Duration: intermittant Describe your pain: burning pain in lower extremities, muscle spasms, Pain Affects: qol What makes it worse? What makes it better? meds Current treatment: Non-Pharmacological methods of pain used: Medications: See medication list below Does current treatment help pain? somewhat Education/Interventions provided to patient/caregiver: report to [facility] if pain worsens or becomes unacceptable. ALLERGIES: ENALAPRIL, FOSINOPRIL, LOPID, NIASPAN 500MG ER TABLET, ATENOLOL, HYDRALAZINE VASOTEC, SIMVASTATIN, AMLODIPINE BESYLATE 5MG TABLET, SEMAGLUTIDE MEDICATION LIST: Active and Recently Outpatient Medications (including Supplies): Active Outpatient Medications Status 1) ALBUTEROL 90MCG (CFC-F) 200D ORAL INHL INHALE 2 PUFFS BY ACTIVE MOUTH EVERY 6 HOURS NEEDED FOR SHORTNESS OF BREATH 2) ASCORBIC ACID 500MG TAB TAKE ONE TABLET BY MOUTH DAILY (TAKE ACTIVE WITH IRON SUPPLEMENT FOR BETTER ABSORPTION) 3) BIKTARVY 50/200/25 TAB TAKE 1 TABLET BY MOUTH DAILY ACTIVE Indication: INFECTION 4) BUMETANIDE 2MG TAB TAKE ONE TABLET BY MOUTH DAILY FOR FLUID ACTIVE (TAKE ADDITIONAL EVENING DOSE FOR 3LB WEIGHT GAIN IN 24 HOURS OR 5LB WEIGHT GAIN IN 1 WEEK) 5) CHOLECALCIF 25MCG (D3-1,000UNIT) TAB TAKE ONE TABLET BY ACTIVE MOUTH DAILY FOR VITAMIN D SUPPLEMENT 6) FERROUS SULFATE 324MG EC TAB TAKE 1 TABLET BY MOUTH DAILY ACTIVE FOR IRON SUPPLEMENT AND ANEMIA - TAKE WITH FOOD 7) FINASTERIDE 5MG TAB TAKE ONE TABLET BY MOUTH DAILY FOR ACTIVE PROSTATE 8) GABAPENTIN 300MG CAP TAKE TWO CAPSULES BY MOUTH EVERY ACTIVE MORNING AND TAKE THREE CAPSULES EVERY EVENING AND TAKE THREE CAPSULES AT BEDTIME Indication: FOR NERVE PAIN 9) GLUCOSE 4GM CHEW TAB CHEW 4 TABLETS (16 GRAMS OF CARBS) BY ACTIVE MOUTH DIRECTED NEEDED Indication: FOR LOW BLOOD SUGAR 10) GLUCOSE SENSOR DEXCOM G7 USE SENSOR DIRECTED NEEDED ACTIVE Indication: FOR BLOOD SUGAR MONITORING 11) INSULIN CONC REG HUM 500 UNT/ML KWIKPEN INJECT 65 UNITS ACTIVE UNDER THE SKIN TWICE A DAY BEFORE MEALS -KEEP REFRIGERATED UNTIL PEN IN USE, ONCE IN USE DISCARD AFTER 28 DAYS Indication: FOR BLOOD SUGAR 12) LIDOCAINE 5% 5IN X 6IN PATCH APPLY 2 PATCHES TO SKIN DAILY ACTIVE NEEDED FOR PAIN. (LEAVE ON 12 HOURS, THEN REMOVE FOR 12 HOURS) 13) METHOCARBAMOL 750MG TAB TAKE ONE TABLET BY MOUTH EVERY 6 ACTIVE HOURS NEEDED FOR MUSCLE SPASM 14) METOPROLOL TARTRATE 100MG TAB TAKE ONE TABLET BY MOUTH TWICE ACTIVE A DAY Indication: FOR BLOOD PRESSURE/HEART 15) NEEDLE,PEN 31G,8MM USE NEEDLE NEEDLE,PEN 31G,5/16IN DEVICE ACTIVE DIRECTED FOR USE WITH U500 KWICKPEN 16) OLODATEROL/TIOTROP 2.5MCG/ACTUAT 60D INH INHALE 2 PUFFS BY ACTIVE MOUTH EVERY MORNING FOR BREATHING 17) PANTOPRAZOLE NA 40MG EC TAB TAKE ONE TABLET BY MOUTH DAILY ACTIVE TAKE ON AN EMPTY STOMACH. Indication: FOR STOMACH 18) SITAGLIPTIN (EQV-ZITUVIO) 100MG TAB TAKE ONE TABLET BY MOUTH ACTIVE DAILY -REPLACES ALOGLIPTIN. STORE IN ORIGINAL CONTAINER. OPENED BOTTLES MUST BE USED WITHIN 3 MONTHS Indication: FOR BLOOD SUGAR 19) TAMSULOSIN HCL 0.4MG CAP TAKE ONE CAPSULE BY MOUTH EVERY ACTIVE EVENING FOR PROSTATE 20) TRAMADOL HCL 50MG TAB TAKE ONE TABLET BY MOUTH EVERY MORNING ACTIVE AND TAKE ONE TABLET EVERY EVENING AND TAKE TWO TABLETS AT BEDTIME NEEDED (USE SPARINGLY. SUPPLY MUST LAST 30 DAYS. CAUSES IMPAIRMENT, RECOMMEND NOT TO DRIVE ON THIS MEDICATION.) Indication: FOR PAIN 21) VENLAFAXINE HCL 150MG 24HR SA CAP TAKE ONE CAPSULE BY MOUTH ACTIVE DAILY Indication: FOR CHRONIC PAIN Inactive Outpatient Medications Status 1) GLUCOSE SENSOR DEXCOM G6 USE SENSOR DIRECTED DIRECTED NEEDED Active Non-VA Medications Status 1) Non-VA ASPIRIN 81MG EC TAB 81MG MOUTH DAILY ACTIVE 2) Non-VA NALOXONE NASAL RESCUE 4MG SOLN,SPRAY,NASAL ONE ACTIVE NOSTRIL ONLY 24 Total Medications MEDICATION REVIEW & RECONCILIATION: - YesAll current and active medications have been reviewed and are correct as listed. - All non-VA meds been updated and reviewed. - All medications properly stored. - The [place] and/or caregivers voices understanding regarding all medications. - The [place] and/or caregiver was provided a copy of the updated medication list or it will be mailed. - Dosing route, dose strength, and frequency of dosing of all medications were verified and noted to be correct. HOME SAFETY: reviewed with patient and cg. PATIENT IS AWARE HOW TO CONTACT FAMILY OR 1 SERVICES WHEN NEEDED Yes FAMILY ADVISED TO SUPERVISE MEDIPLANNER Yes PT ADVISED NOT TO DRIVE Yes RECOMMENDED FIREARMS BE REMOVED FROM HOME Yes OXYGEN PRESENT AT HOME? YES. Oxygen safety assessed and reviewed with [place]/family - Findings of the oxygen safety assessment: - Possible causes of fire: - Fire risks for neighboring residences and buildings: - Precautions that can prevent fire-related injuries: - Discussed need to avoid petroleum based products and why: FUNCTIONAL ASSESSMENT: (WALDRON' SCALE OF INDEPENDENCE) BATHING SCORE: - [ ] Bathes self completely, or needs help in only a single part of the body (back/genitals/disabled limb). [1 POINT] - [X] Needs help with bathing >1 body part, getting in/out of tub or shower, or requires total bathing. [0 POINT] DRESSING SCORE: - [ ] Gets clothes from closets & drawers, puts on inner & outer garments complete with fasteners. May need help tying shoes. [1 POINT] - [X] Needs help with dressing or needs to be dressed completely. [0 POINT] TOILETING SCORE: - [ ] Goes to toilet, gets in & off, cleans areas without help. [1 POINT] - [X] Needs help transferring to toilet, cleaning self, or uses bedpan or commode. [0 POINT] TRANSFERRING SCORE: - [ ] Moves in & out of bed/chair unassisted or with mechanical transfer aids. [1 POINT] - [X] Needs help moving from bed to chair or needs a complete transfer. [0 POINT] CONTINENCE SCORE: - [ x] Exercises complete self control over urination/defecation. [1 POINT] - [] Is partially or totally incontinent of bowel/bladder. [0 POINT] FEEDING SCORE: - [X] Gets food from plate to mouth unassisted. (Food may be prepared by someone else). [1 POINT] - [ ] Needs partial or total help in feeding or on parenteral feeding. [0 POINT] TOTAL SCORE: 2 6 = Total independence. 0 = Total dependence. STEPS TO ADDRESS & MITIGATE: Will ask SW to order STONE DRESSER for . Continue to work with pmr to identify and order needed equipment. FALLS SINCE LAST STAFF VISIT: NONE SINCE LAST VISIT DEPRESSION SCREEN: PHQ2: In the last 2 weeks 1. Have been bothered by having little interest or pleasure in doing things? 0. Not at all 2. Have you felt hopeless, depressed or helpless? 0. Not at all TOTAL SCORE: 0 Action: no additional action needed. COGNITIVE/DEMENTIA SCREENING: BEHAVIORAL INDICATORS OF DEMENTIA REPORTED Yes WELL GROOMED: Yes PLEASANT: Yes COOPERATIVE: Yes GOOD EYE CONTACT: Yes AFFECT APPROPRIATE: Yes ORIENTATION: FULL NAME, CURRENT ADDRESS, MONTH, YEAR.Alert/oriented to full name, home address, current location, Month and year SPEECH INTELLIGIBLE/APPROPRIATE: Yes THOUGHT LOGICAL & COHERENT:Yes ATTENTION MAINTAINED: Yes ACTION: - [X] NO ADDITION ACTION NEEDED. - [ ] ESTABLISHED DIAGNOSIS & ONGOING MANAGEMENT - [ ] SEE ASSESSMENT & PLAN FOR INVESTIGATION - [ ] WILL FOLLOW RECYCLING WORKER SLUMS SCORE - [ ] REFER TO PSYCHOLOGIST FOR FURTHER WORK UP PREVENTIVE HEALTH: Immunization Series Date Facility Reaction Info COVID-19 (MODERNA), MRNA, LNP-S,* 3 07/08/2021 [facility] COVID-19 (MODERNA), MRNA, LNP-S,* 2 10/11/2020 [facility] COVID-19 (MODERNA), MRNA, LNP-S,* 1 09/09/2020 [facility] COVID-19 (PFIZER), MRNA, LNP-S, * 1 08/08/2022 [place]* INFLUENZA, HIGH-DOSE, QUADRIVALE* C 09/06/2023 [place]* [id number] (HISTORICAL) 10/14/2013 [facility]* PNEUMOCOCCAL CONJUGATE PCV20, PO* 12/27/2022 [facility]* PNEUMOCOCCAL POLYSACCHARIDE PPV23 C 04/02/2018 [facility]* TDAP 10/14/2013 [facility]* ZOSTER RECOMBINANT 1 03/27/2023 [facility]* REFUSED ======= Immunization Date Facility Info COVID-19 (PFIZER), MRNA, LNP-S, * 09/06/2023 [facility]* <I> MENINGOCOCCAL MCV4, UNSPECIFIED * 12/27/2022 [facility]* <I> PNEUMOCOCCAL CONJUGATE, UNSPECIF* 12/27/2022 [facility]* <I> TD(ADULT) UNSPECIFIED FORMULATION 09/06/2023 [facility]* <I> ZOSTER RECOMBINANT 12/27/2022 [facility]* <I> - SCREENING: - [ ] COLORECTAL CANCER: - [ ] PROSTATE CANCER: - [ ] AORTIC ANEURYSM: - [ ] OSTEOPOROSIS: - [ ] LUNG CANCER: - [ ] MAMMOGRAM: PALLIATIVE CARE INVENTORY: - PAIN: fair control, follows pain management team - DYSPNEA: on exertion - ANXIETY/MOOD: denies - SLEEP:in recliner, sleep interrupted by pain - APPETITE:good - NAUSEA/VOMITING/CONSTIPATION : takes colace or uses fleets enema occasionally - BOWEL/BLADDER: no incontinence - FUNCTIONAL STATUS:dependent except for eating - PSYCHOSOCIAL/SPIRITUAL/GRIEF : denies - ADVANCED CARE PLANNING: LST completed today - CODE STATUS: full code ADVANCE CARE PLANNING Medical Surrogate Status: is NOK, would like to have his daughter named as his hcs. Life Sustaining Treatment Discussed. See LST Note Dated today DNR STATUS: - [ ] Patient has an EMS DNR in the home. - [ ] Patient/surrogate declines EMS DNR - [ ] Patient/surrogate undecided about EMS - OTHER: NA, patient is a full code PHYSICAL EXAMINATION: - AGE: 69 years - HEIGHT: 71 in [180.3 cm] (11/15/2023 12:52) - WEIGHT (IF POSSIBLE): - TEMPERATURE: - PULSE (SUPINE/SITTING): 62 - PULSE (STANDING): - BP (SUPINE/SITTING): - BP (STANDING): 128/64 - PULSE OX:92 % ON 2 liters GENERAL: Pleasant, seen at home. Cooperative. Sitting/lying at rest. No shortness of breath, pain or distress at rest. HEENT: Head: atraumatic with normal shape. Eyes: EOMI, Pupils small, round, reacting to light, clear sclera. Nasal mucosa moist, with no discharge or dryness, clear, no bloodstains. Oral mucosa pink, moist, edentulous. Oropharynx clear, no erythema. NECK Neck is supple, without nodules, thyroid without fullness or nodules, negative JVD, negative audible carotid, bruits, good a/p movement CARDIAC: Regular S1, S2 with no added sounds, rubs, S3/S4 gallops or murmurs. CHEST: No accessory muscles of respiration involved. On auscultation, clear conn. Air entry equal. No wheezes/rhonchi or crackles heard. ABDOMEN: Soft, non-tender, non-distended, normal active bowel sounds, no organomegaly. GENITOURINARY: deferred SKIN: Lower extremity rubor bialterally, covered with multiple scabbed over wounds. 4-5 inch diameter hematoma to left lower abdomen. EXTREMITIES: Arthritic degenerative changes in both hands fingers, knees, ankle and feet. Pain on ROM both shoulders, with limitation of extreme abduction. No clubbing, cyanosis. DIAGNOSTICS: LABS & IMAGING REVIEW: CBC/PLT, BLOOD - Partial Panel found WBC , BLOOD, 11/15/23@1521 10.2 HK/cmm (5.0 - 10.0) RBC, BLOOD, 11/15/23@1521 4.90 M/cmm (4.6 - 6.2) HGB, BLOOD, 11/15/23@1521 14.1 g/dL (14.0 - 18.0) HCT, BLOOD, 11/15/23@1521 44.9 % (42.0 - 52.0) Report Released Date/Time: Dec 14, 2020@17:41 Provider: NGA,SEFERINO A Specimen: PLASMA. CH 0413 273 MCV, BLOOD, 11/15/23@1521 91.6 fL (80.0 - 94.0) MCH, BLOOD, 11/15/23@152 28.8 pg (27.0 - 31.0) MCHC, BLOOD, 11/15/23@1521 31.4 Lg/dL (32.0 - 36.0) RDW, BLOOD, 11/15/23@1521 14.1 % (11.0 - 16.0) PLT, BLOOD, 11/15/23@152 238 K/cmm (150 - 450) MPV, BLOOD, 11/15/23@1521 9.7 fL (9.0 - 13.1) NRBC, BLOOD, 11/15/23@1521 0.0 % (0.0 - 0.0) Z GLYCOHEMOGLOBIN (HPLC) 11/15/23 15:21 7.3 H Lipid Prof Arnel. date CHOL TRIG HDL LIPID PHLDL CHOLSERUM AP 11/15/23 15:21 175 158 H 34 Lipid Prof Arnel. date CHOL TRIG HDL LIPID PHLDL CHOLSERUM AP 11/15/23 15:21 175 158 H 34 L PANEL 1 Arnel. date GLUCOSE BUN CREAT SODIUM K CHLOR CO2 11/15/23 15:21 454 H 14 1.47 H 135 L 4.2 92 L 33 H 03/27/23 10:38 229 H 16 1.16 139 4.4 97 L 38 H PANEL 2 Arnel. date TOT PRO ALBUMIN SGOT SGPT Z ALK PHZ DIRECTZ TOTAL 11/15/23 15:21 8.1 3.5 16 12 260 H 0.5 TSH 4.5225 mIU/mL (11/15/2023 15:21) ASSESSMENT: Chronic obstructive pulmonary disease, unspecified Chronic respiratory failure with hypoxia stable. continue stioloto and albuterol inhalers. Continue home oxygen 2-3 liters. Will be home oxygen evaluation at next RN visit. Age related osteoporosis without current pathological fracture- stable. Continue cholecalciferol. Other Chronic pain-stable. Continue venlafaxine, tramadol, methocarbamol, and lidocaine patches. Type 2 diabetes mellitus with neuropathy- follows Diabetes Clinic with Concentrated insulin pen 65 units bid with continuous dexcom monitoring.Also takes empagliflozin 12.5 mg, gabapentin 600 mg am, 900 mg noon, and 900mg evening for neuropathy. November 2023 AIC 7.3%. Essential Primary Hypertension- meeting patient goal. Continue metoprolol. Gastroesophageal Reflux Disease-stable. Continue pantoprazole. Iron deficiency anemia- stable. Continue ferrous sulfate and vitamin C. H/H wnl and last iron was 2019. will add iron studies to labs in October. Heart Failure, unspecified- stable. Continue bumex. Obesity, unspecified- February 2024 bmi 36.9 Benign Prostatic Hyperplasia without lower urinary tract symptoms- stable. Continue efinasteride and tamsulosin. Vitamin D deficiency, unspecified- continue cholecalciferol. will recheck christina. PLANS: alerting SW that requests STONE DRESSER/respite Alena- labs in October: cbc, p5, iron studies, vitamin D, [X] The current diagnosis as well as the nature of the diseases, prognosis and expected course were discussed with /attendants. They expressed their understanding of the information given. The Care Plan was formulated by shared decision making with them. /angie/ LAURY KENYON APRN ADVANCED PRACTICE REGISTERED NURSE, [facility] Signed: 09/15/2024 16:39 LAURY KENYON-KAREND [facility]
--- OUTSIDE RECORDS SUMMARY | 2024-09-12 04:16 | XMS_ITS | Encounter Summary ---
Author Name [facility] [place] Organization [place] Address [address] [place] [address] Care Team Providers Care Accessibility Lift Technician Name Role Phone LAURY KENYON Primary Care [...] ON [employer] Jun 03, 2017 [id number] ROXI WINKLER PATIENT [employer] [facility] (WNR) MEDICARE ADVANTAGE [facility] (WNR) Sep 03, 2019 [id number] ROXI WINKLER JR PATIENT [employer] [facility] (WNR) MEDICARE ADVANTAGE [facility] (WNR) Sep 03, 2019 [id number] [phone] ROXI WINKLERA MCR (WNR) MEDICARE ADVANTAGE HUMAN A INSUR ANCE COM Apr 04, 2019 [id number] ROXI WINKLER [employer] MCR (WNR) MEDICARE ADVANTAGE MCR (WNR) Apr 03, 2019 [id number] ROXI WINKLER [employer] MCR (WNR) MEDICARE ADVANTAGE MCR (WNR) Apr 03, 2019 [id number] ROXI WINKLERA MCR (WNR) MEDICARE ADVANTAGE MCR (WNR) Apr 03, 2019 [id number] ROXI WINKLER JR PHARMACY PRESCRIPT ION NONE Jun 03, 2017 NONE [id number] ROXI WINKLER MEDICARE PART D (WNR) MEDICARE (M) PART D Sep 03, 2023 PART D [id number] ROXI WINKLER JR PATIENT Selected Encounter This section includes the information on record at [place] for the Encounter. Date/Time Encounter Type Encounter Description Reason Pro vider Source Sep 12, 2024 08:16 AM Outpatient Encounter ADMIN PAT ACTIVTIES (MASNONCT) IHE Encounter Template Text not used by [place] Plan of Treatment: Future Appointments (+ 6 months) and Future Tests (+/- 45 days) The Plan of Treatment section includes future care activities for the patient from all [place] treatmentfacilities. This section includes future appointments and future orders which are active, pending or scheduled. Future Appointments This section includes appointments that were scheduled to occur 6 months from the date of the Encounter, up to a maximum of 20 appointments. The data comes from all [place] treatment facilities. Appointment Date/Time Appointment Type Appointme nt Facility Name Sep 30, 2024 09:00 AM AMBULATORY - NONE STEPHEN Barnes [facility] Oct 06, 2024 01:30 PM AMBULATORY - MEDICINE [facility] Oct 14, 2024 09:30 AM AMBULATORY [facility] Oct 14, 2024 10:00 AM AMBULATORY - MEDICINE [facility] Oct 17, 2024 04:00 PM AMBULATORY - MEDICINE [place] [facility] Nov 18, 2024 08:00 AM AMBULATORY - NONE [place] [facility] Nov 21, 2024 09:00 AM AMBULATORY - MEDIC[facility] Nov 21, 2024 11:20 AM AMBULATORY - MEDICINE [facility] Dec 11, 2024 10:00 AM AMBULATORY - SURGERY [place] [facility]ACH [facility] Dec 23, 2024 01:30 PM AMBULATORY - SURGERY [place] [facility] January 06, 2025 10:30 AM AMBULATORY - REHAB MEDICIN E [facility] January 06, 2025 02:00 PM [facility] January 30, 2025 11:00 AM AMBULATORY - NONE [place] [facility] Feb 17, 2025 02:00 PM [facility] Active, Pending, and Scheduled Orders This section includes a listing of several types of active, pending, and scheduled orders, including clinic medications orders, diagnostic test orders, procedure orders and consult orders; where the start date of the order is 45 days before the date of the Encounter or 45 days after the date of theEncounter. The data comes from all [place] treatment facilities. Test Date/Time Test Type Test Details Facility Name Aug 07, 2024 12:00 AM Laboratory - Chemi stry Order PANEL 1 [id number] SP ONCE [facility] Aug 07, 2024 12:00 AM Laboratory - Chemi stry Order MAGNESIUM [id number] SP ONCE [facility] Social History: Smoking Status (Most current) and Tobacco Use (All prior to encounter date) This section includes the most current, and the historical, smoking and tobacco- related health factors from the [place] facility where the Encounter took place. Current Smoking Status This section includes the most current smoking, or tobacco-related health factor, from the [place] facility where the Encounter took place. Date/Time Current Smoking Status Comment Facil [facility] May 05, 2016 01:12 AM NON-TOBACCO USE INPATIENT [facility] Tobacco Use History This section includes a history of the smoking, or tobacco-related health factors, that were collected on or before the date of the Encounter. The data comes from the [place] facility where the Encounter took place. Date/Time [...] ALL of a patient's completed or amended [place] Advance and Rescinded Directives. The entries below indicate that a directive exists for the patient, but an actual copy is not included with this document. The data comes from all [place] facilities. Date Advance Directives Provider Source Sep 25, 2024 ADVANCE DIRECTIVE DISCUSSION ANTHONY IRVING [facility] Encounter Notes: All associated encounter notes This section contains the clinical notes associated to the Encounter. Date/Time Encounter Note(s) Provider Source Aug 23, 2024 08:16 AM NONVA NOTE: LOCAL TITLE: OUTSIDE MEDICAL RECORD-OTHER STANDARD TITLE: NONVA NOTE DATE OF NOTE: AUG 23, 2024@08:16 ENTRY DATE: SEP 12, 2024@08:16:26 AUTHOR: MIR ROSE EXP COSIGNER: URGENCY: STATUS: COMPLETED The scanned document may be viewed in [employer]. /angie/ MIR ROSE MATH COACH Signed: 09/12/2024 08:16 MIR ROSE [facility]
--- OUTSIDE RECORDS SUMMARY | 2024-09-12 10:05 | XMS_ITS | Encounter Summary ---
Author Name [facility] [place] Address [address] [place] [address] Care Team Providers Care Fishing Accessories Maker Name Role Phone LAURY KENYON Primary Care [...] [employer] Jun 03, 2017 [id number] ROXI WINKLER PATIENT [employer] [facility] (WNR) MEDICARE ADVANTAGE [facility] (WNR) Sep 03, 2019 [id number] ROXI WINKLER JR PATIENT [employer] [facility] (WNR) MEDICARE ADVANTAGE [facility] (WNR) Sep 03, 2019 [id number] ROXI WINKLERA MCR (WNR) MEDICARE ADVANTAGE HUMAN A INSUR ANCE COM Apr 04, 2019 [id number] ROXI WINKLER [employer] [facility] (WNR) MEDICARE ADVANTAGE MCR (WNR) Apr 03, 2019 [id number] ROXI WINKLER [employer] MCR (WNR) MEDICARE ADVANTAGE MCR (WNR) Apr 03, 2019 [id number] ROXI WINKLERA MCR (WNR) MEDICARE ADVANTAGE MCR (WNR) Apr 03, 2019 [id number] ROXI WINKLER JR PHARMACY PRESCRIPT ION NONE Jun 03, 2017 NONE [id number] [phone] ROXI WINKLER MEDICARE PART D (WNR) MEDICARE (M) PART D Sep 03, 2023 PART D [id number] ROXI WINKLER JR PATIENT Selected Encounter This section includes the information on record at [place] for the Encounter. Date/Time Encounter Type Encounter Description Reason Pro vider Source Sep 12, 2024 02:05 PM Outpatient Encounter ADMIN PAT ACTIVTIES (MASNONCT) IHE Encounter Template Text not used by [place] Plan of Treatment: Future Appointments (+ 6 months) and Future Tests (+/- 45 days) The Plan of Treatment section includes future care activities for the patient from all [place] treatmentfacilities. This section includes future appointments and future orders which are active, pending or scheduled. Future Appointments This section includes appointments that were scheduled to occur 6 months from the date of the Encounter, up to a maximum of 20 appointments. The data comes from all [place] treatment facilities. Appointment Date/Time Appointment Type Appointme nt Facility Name Sep 30, 2024 09:00 AM AMBULATORY - NONE STEPHEN Barnes [facility] Oct 06, 2024 01:30 PM AMBULATORY - MEDICINE [facility] Oct 14, 2024 09:30 AM AMBULATORY - MEDICINE [place] [facility] Oct 14, 2024 10:00 AM AMBULATORY - MEDICINE [facility] [facility] Oct 17, 2024 04:00 PM AMBULATORY - MEDICINE [place] EL [facility] Nov 18, 2024 08:00 AM AMBULATORY - NONE [place] [facility] Nov 21, 2024 09:00 AM AMBULATORY - MEDICINE [facility] Nov 21, 2024 11:20 AM AMBULATORY - MEDICINE [facility] Dec 11, 2024 10:00 AM AMBULATORY - SURGERY [place] [facility] Dec 23, 2024 01:30 PM AMBULATORY - SURGERY [place] [facility] January 06, 2025 10:30 AM AMBULATORY - REHAB MEDICIN E [facility] January 06, 2025 02:00 PM [facility] January 30, 2025 11:00 AM AMBULATORY - NONE [place] [facility] Feb 17, 2025 02:00 PM [facility] Active, Pending, and Scheduled Orders This section includes a listing of several types of active, pending, and scheduled orders, including clinic medications orders, diagnostic test orders, procedure orders and consult orders; where the start date of the order is 45 days before the date of the Encounter or 45 days after the date of theEncounter. The data comes from all [place] treatment facilities. Test Date/Time Test Type Test Details Facility Name Aug 07, 2024 12:00 AM Laboratory - Chemi stry Order PANEL 1 [id number] SP ONCE [facility] Aug 07, 2024 12:00 AM Laboratory - Chemi stry Order MAGNESIUM [id number] SP ONCE [facility] Social History: Smoking Status (Most current) and Tobacco Use (All prior to encounter date) This section includes the most current, and the historical, smoking and tobacco- related health factors from the [place] facility where the Encounter took place. Current Smoking Status This section includes the most current smoking, or tobacco-related health factor, from the [place] facility where the Encounter took place. Date/Time Current Smoking Status Comment Facil [facility] May 05, 2016 01:12 AM NON-TOBACCO USE INPATIENT [facility] Tobacco Use History This section includes a history of the smoking, or tobacco-related health factors, that were collected on or before the date of the Encounter. The data comes from the [place] facility where the Encounter took place. Date/Time Smoking Status/Tobacco Use Comment F acility Nov 24, 2015 04:48 PM NON-TOBACCO USE INPATIENT [facility] Oct 01, 2014 07:15 PM NON-TOBACCO USE INPATIENT [facility] Apr 10, 2005 01:20 PM HF V9 LIFETIME NON-SMOKER [facility] Nov 24, 2003 03:11 PM HF V9 LIFETIME NON-SMOKER [facility] Oct 07, 2002 02:26 PM HF V9 LIFETIME NON-SMOKER [facility] Advance Directives: All historical and current Section Date Range: From patient's date of to the date document was created. This section includes ALL of a patient's completed or amended [place] Advance and Rescinded Directives. The entries below indicate that a directive exists for the patient, but an actual copy is not included with this document. The data comes from all [place] facilities. Date Advance Directives Provider Source Sep 25, 2024 ADVANCE DIRECTIVE DISCUSSION ANTHONY IRVING [facility] Encounter Notes: All associated encounter notes This section contains the clinical notes associated to the Encounter. Date/Time Encounter Note(s) Provider Source Aug 19, 2024 09:11 AM NONVA NOTE: LOCAL TITLE: COMMUNITY CARE-BLAKE SELF PRESENTING CARE COORD PLAN STANDARD TITLE: NONVA NOTE DATE OF NOTE: AUG 19, 2024@09:11 ENTRY DATE: SEP 12, 2024@14:05:35 AUTHOR: BEVERLY NIX EXP COSIGNER: URGENCY: STATUS: COMPLETED COMMUNITY CARE-BLAKE SELF PRESENTING CARE COORD PLAN NOTE Has ADDENDA Emergency Notification Intake Date Presenting to the Facility: Aug Date of note has been modified to reflect Date of Service. Reason for modification: HOSPITAL NOTIFICATION DATE/TIME: 08/20/2024 1537 EST Method of Contact: Notified from [employer] [facility] worklist Notification ID: [id number] [facility] Referral #: [facility] Hospital Name: Hospital: [facility] Address: City: [place] State: [place] Zip Code: Phone : Community Facility Point of Contact: Name: PRIYA LARSEN Phone: [phone] Chief complaint: AMS Primary Diagnosis: Disposition Admitted Route of Admission: ER Date of Admission: Aug Admitting Diagnosis: J18.9 Community Care Provider: Confirm Level of Care: Acute Inpatient Care Discharge Disposition Date of discharge: Aug Disposition Discharged LATE NOTIFICATION/ENTRY PACT TEAM AWARE OF OSH ADMISSION FROM [facility] CHART REVIEW Handoff to PACT/PCP [facility] Community Care was informed this was discharged from outside hospital inpatient care. Records requested for upload and review: Pursuant to 38 CFR 17.4020(c)Authorized emergency treatments. Handoff to PACT/PCP for follow up/care coordination as deemed appropriate by the PACT/PCP. /angie/ Beverly Nix MSN, syrup filterer Nurse Coordinator Signed: 09/12/2024 14:08 09/12/2024 ADDENDUM STATUS: COMPLETED Episode of Care Complete Determination: Closed - Approved for 1703 [id number] [facility] Transfer Office notified of Veterans presentation to the aforementioned hospital via [facility] Call Center SharePoint Site. [facility] made eligibility determination and sent payment authorization and/or denial information directly to the healthcare provider. Any questions regarding determination, claims, & billing may be made to the following: [facility] Telephone Number: [phone] ([phone]) POM (Payment Operations and Management) Claims Status Line: [facility] Provider Services Region 2: /angie/ Beverly Nix MSN, syrup filterer Nurse Coordinator Signed: 09/12/2024 14:09 [facility]
--- OUTSIDE RECORDS SUMMARY | 2024-09-17 10:42 | XMS_ITS | Encounter Summary ---
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 Role Phone LAURY KENYON Primary Care [...] ON [employer] Jun 03, 2017 [id number] ROXI WINKLER PATIENT [employer] [facility] (WNR) MEDICARE ADVANTAGE [facility] (WNR) Sep 03, 2019 [id number] ROXI WINKLER JR PATIENT [employer] [facility] (WNR) MEDICARE ADVANTAGE [facility] (WNR) Sep 03, 2019 [id number] ROXI WINKLERA MCR (WNR) MEDICARE ADVANTAGE HUMAN A INSUR ANCE COM Apr 04, 2019 [id number] ROXI WINKLER [employer] MCR (WNR) MEDICARE ADVANTAGE MCR (WNR) Apr 03, 2019 [id number] ROXI WINKLER [employer] MCR (WNR) MEDICARE ADVANTAGE MCR (WNR) Apr 03, 2019 [id number] ROXI WINKLERA MCR (WNR) MEDICARE ADVANTAGE MCR (WNR) Apr 03, 2019 [id number] ROXI WINKLER JR PHARMACY PRESCRIPT ION NONE Jun 03, 2017 NONE [id number] ROXI WINKLER MEDICARE PART D ([place]) MEDICARE ([place]) PART D Sep 03, 2023 PART D [id number] [phone] ROXI WINKLER JR PATIENT Selected Encounter This section includes the information on record at [place] for the Encounter. Date/Time Encounter Type Encounter Description Reason Pro vider Source Sep 17, 2024 02:42 PM Outpatient Encounter ADMIN PAT ACTIVTIES (MASNONCT) IHE Encounter Template Text not used by [place] Plan of Treatment: Future Appointments (+ 6 months) and Future Tests (+/- 45 days) The Plan of Treatment section includes future care activities for the patient from all [place] treatmentfacilities. This section includes future appointments and future orders which are active, pending or scheduled. Future Appointments This section includes appointments that were scheduled to occur 6 months from the date of the Encounter, up to a maximum of 20 appointments. The data comes from all [place] treatment facilities. Appointment Date/Time Appointment Type Appointme nt Facility Name Sep 30, 2024 09:00 AM AMBULATORY - NONE [facility] Oct 06, 2024 01:30 PM [facility]UL[facility]ORY - [facility]ICINE [facility] Oct 14, 2024 09:30 AM AM[facility]UL[facility]ORY - [facility]IC[facility] Oct 14, 2024 10:00 AM [facility]IC[facility] Oct 17, 2024 04:00 PM [facility] Nov 18, 2024 08:00 AM [facility] Nov 21, 2024 09:00 AM [facility] Nov 21, 2024 11:20 AM [facility]IC[facility] [facility] Dec 11, 2024 10:00 AM [facility] Dec 23, 2024 01:30 PM [facility] January 06, 2025 10:30 AM AMBULATORY - REHAB [facility] January 06, 2025 02:00 PM [facility] January 30, 2025 11:00 AM AMBULATORY - NONE [facility] Feb 17, 2025 02:00 PM [facility] Active, Pending, and Scheduled Orders This section includes a listing of several types of active, pending, and scheduled orders, including clinic medications orders, diagnostic test orders, procedure orders and consult orders; where the start date of the order is 45 days before the date of the Encounter or 45 days after the date of theEncounter. The data comes from all [place] treatment facilities. Test Date/Time Test Type Test Details Facility Name Aug 07, 2024 12:00 AM Laboratory - Chemi stry Order PANEL 1 [id number] SP ONCE [facility] Aug 07, 2024 12:00 AM Laboratory - Chemi stry Order MAGNESIUM [id number] SP ONCE [facility] Lab Results: +/- 30 days of the encounter This section includes the Chemistry and Hematology Lab Results on record with [place] for the patient. Radiology Reports and Pathology Reports are provided separately, in subsequent sections. Lab Results This section contains the Chemistry/Hematology Results that were resulted 30 days before or 30 daysafter the date of the Encounter. Date/Time Source Result Type Result - Unit Interpretation Reference Range Specimen Type Comment Oct 17, 2024 03:32 PM [facility] GLYCOHEMOGLOBIN BLOOD Specimen Type: BLOOD Comment: [place] guidelines for A1c interpretation: Glycemic control targets are based on Shared Decision Making between clinicians and patients. Criteria used to establish an A1c target recommendation can be found at https://www.ky.g ov/qualityandpat ientsafety/ and include the use of result accuracy and precision(CV) of the A1c tests clinicians utilize at their own sites of practice. Values obtained from A1C measurements can vary. For typical A1C assays, a reported value of 7.0 could actually be between 6.72 and 7.28 if measured by a reference method. A reported value of 9.0 could actually be between 8.73 and 9.27. Ref: https://ngsp.org /CAPdata.asp. The in-house [employer]ome[employer]-zeen[employer] D-100 analyzer has a historical CV <= 2%. Contact the laboratory for further performance characteristics of this assay. Ordering Provider: LAURY KENYON Report Released Date/Time: Oct 15, 2024 04:37 PM Reporting Lab: [address] [address] Performing Lab: [address] [address] GLYCOHEMOGLOBIN 7.3 H 4.4-5.6 Oct 17, 2024 03:32 PM [facility] 25-[place] VITAMIN D SERUM Specime n Type: SERUM Comment: The National Institutes of Health (NIH) recommendations state: <12 ng/mL - Deficient 20 - 50 ng/mL - Optimal Levels - adequate for most people. >50 ng/mL - Increased risk of hypercalciuria/other health problems - clinical correlation is required. These reference ranges represent clinical decision values rather than population-based reference values. Ordering Provider: LAURY KENYON Report Released Date/Time: Oct 15, 2024 04:37 PM Reporting Lab: [address] [address] Performing Lab: [address] [address] 25-OH VITAMIN D 28.3 ng/mL 20.0-50.0 Oct 17, 2024 03:32 PM [facility] BNP (Socialscope) PLASMA Specimen Type: PLASMA Comment: BNP results less than or equal to 100 pg/ml are national sales representative of normal values in patients without CHF. BNP results greater than 100 pg/ml are considered abnormal and suggestive of CHF. Higher BNP concentrations in the first 72 hours after Acute Coronary Syndrome are associated with an increased risk of , myocardial infarction and CHF. Ordering Provider: LAURY KENYON Report Released Date/Time: Oct 15, 2024 04:37 PM Reporting Lab: [address] [address] Performing Lab: [address] [address] BNP (WOODS) 101 pg/mL H 0-100 Oct 14, 2024 10:53 AM [facility] HIV-1 VIRAL LOAD (PCR) PLASMA Speci men Type: PLASMA Comment: HIV-1 RNA RT-PCR (HIV-1 VIRAL LOAD (PCR)) assay is performed by the [facility] [place] This test does not rule out the presence of HIV-1 at less than 20 copies/mL. Quantitative range is 20 (1.30 Log (Copies/mL)) - 10,000,000 (7.00 Log (Copies/mL)) copies/mL. This test should only be used for patients with documented HIV-1infection. The [facility] has verified the performance characteristics of this test. This test is FDA approved. Ordering Provider: HILARY FLANAGAN Report Released Date/Time: Oct 14, 2024 10:21 AM Reporting Lab: [address] [address] Performing Lab: [place] [id number] .HIV-1 VIRAL LOAD (COPIES/ML) Not Detected Not Detected Oct 14, 2024 10:53 AM [facility] CD4/CD8 RATIO PROFILE BLOOD Specim en Type: BLOOD No comment entered. Ordering Provider: HILARY FLANAGAN Report Released Date/Time: Oct 14, 2024 10:21 AM Reporting Lab: [address] [address] Performing Lab: [address] [address] .% CD 4 Pos. Lymph. 29.9 L 30.8-58.5 .% CD 8 Pos. Lymph. 37.8 H 12.0-35.5 .CD 4 / CD 8 Ratio 0.79 L 0.92-3.72 .Absolute CD 4 [place] 299 /uL L 359-1519 .Absolute CD 8 Suppressor 378 /uL 109-89 7 Social History: Smoking Status (Most current) and Tobacco Use (All prior to encounter date) This section includes the most current, and the historical, smoking and tobacco- related health factors from the [place] facility where the Encounter took place. Current Smoking Status This section includes the most current smoking, or tobacco-related health factor, from the [place] facility where the Encounter took place. Date/Time Current Smoking Status Comment Facil ity May 05, 2016 01:12 AM NON-TOBACCO USE INPATIENT [facility] Tobacco Use History This section includes a history of the smoking, or tobacco-related health factors, that were collected on or before the date of the Encounter. The data comes from the [place] facility where the Encounter took place. Date/Time Smoking Status/Tobacco Use Comment F acility Nov 24, 2015 04:48 PM NON-TOBACCO USE INPATIENT [facility] Oct 01, 2014 07:15 PM NON-TOBACCO USE INPATIENT [facility] Apr 10, 2005 01:20 PM HF V9 LIFETIME NON-SMOKER [facility] Nov 24, 2003 03:11 PM HF V9 LIFETIME NON-SMOKER [facility] Oct 07, 2002 02:26 PM HF V9 LIFETIME NON-SMOKER [facility] Advance Directives: All historical and current Section Date Range: From patient's date of to the date document was created. This section includes ALL of a patient's completed or amended [place] Advance and Rescinded Directives. The entries below indicate that a directive exists for the patient, but an actual copy is not included with this document. The data comes from all [place] facilities. Date Advance Directives Provider Source Sep 25, 2024 ADVANCE DIRECTIVE DISCUSSION ANTHONY IRVING [facility] Encounter Notes: All associated encounter notes This section contains the clinical notes associated to the Encounter. 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 DIANE SON WINKLER [address] [place] [address] SEP 17, 2024 Dear ROXI WINKLER JR, We have been unable to contact you by telephone to schedule an appointment in our Optometry clinic. Your health and well-being are important to us. Please call us at or . Select Option #2 and then #3. We look forward to hearing from you soon. Sincerely yours, Optometry [facility]
--- OUTSIDE RECORDS SUMMARY | 2024-09-23 10:28 | XMS_ITS ---
Author Name [facility] [place] [facility] [place] [facility] [place] Address [address] [place] [address] Care Team Providers Care Industrial Engineering Analyst Name Role Phone LAURY KENYON Primary Care Provider Unavailab SHIMON Alex Unavailable Unavailable MARI KOENIG Unavailable Unavailable REEMA BENDER Unavailable Unavailable NATASHA [...] Name Patient's Relationship to Policy Pascual HUMANA CLAIMS/[place] MEDICAL PREFERRED PROVIDER ORGANIZAT ION (PPO) ARELIS ON [employer] Jun 03, 2017 [id number] ROXI WINKLER PATIENT HUMANA [facility] (WNR) MEDICARE ADVANTAGE [facility] (WNR) Sep 03, 2019 [id number] ROXI WINKLER JR PATIENT HUMANA [facility] (WNR) MEDICARE ADVANTAGE [facility] (WNR) Sep 03, 2019 [id number] [phone] ROXI WINKLERA MCR (WNR) MEDICARE ADVANTAGE HUMAN A INSUR ANCE COM Apr 04, 2019 [id number] ROXI WINKLERA MCR (WNR) MEDICARE ADVANTAGE [facility] (WNR) Apr 03, 2019 [id number] ROXI WINKLERA MCR (WNR) MEDICARE ADVANTAGE MCR (WNR) Apr 03, 2019 [id number] ROXI WINKLERA MCR (WNR) MEDICARE ADVANTAGE MCR (WNR) Apr 03, 2019 [id number] ROXI WINKLER JR PHARMACY PRESCRIPT ION NONE Jun 03, 2017 NONE [id number] ROXI WINKLER MEDICARE PART D (WNR) MEDICARE (M) PART D Sep 03, 2023 PART D [id number] ROXI WINKLER JR PATIENT Selected Encounter This section includes the information on record at [place] for the Encounter. 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 MARI KOENIG-Yancy [facility] Plan of Treatment: Future Appointments (+ [...] 09:00 AM AMBULATORY - NONE [place] [facility] Oct 06, 2024 01:30 PM AMBULATORY - MEDICINE [place] [facility] Oct 14, 2024 09:30 AM AMBULATORY - MEDICINE [place] EL-[facility] Oct 14, 2024 10:00 AM AM[facility]ULATORY - [facility]IC[facility] Oct 17, 2024 04:00 PM AMBULATORY - MEDICINE [place] [facility] Nov 18, 2024 08:00 AM AMBULATORY - NONE [place] [facility] Nov 21, 2024 09:00 AM AMBULATORY - MEDICINE [place] [facility] Nov 21, 2024 11:20 AM [facility] - [facility] Dec 11, 2024 10:00 AM AM[facility]ULATORY - SURGERY [place] [facility] Dec 23, 2024 01:30 [facility] January 06, 2025 10:30 AM [facility] January 06, 2025 02:00 PM [facility]UL[facility] - SURGERY [place] [facility] January 30, 2025 11:00 AM [facility]ONE [facility] Feb 17, 2025 02:00 PM [facility] Lab Results: +/- 30 days of the encounter This section includes the Chemistry and Hematology Lab Results on record with [place] for the patient. Radiology Reports and Pathology Reports are provided separately, in subsequent sections. Lab Results This section contains the Chemistry/Hematology Results that were resulted 30 days before or 30 daysafter the date of the Encounter. Date/Time Source Result Type Result - Unit Interpretation Reference Range Specimen Type Comment Oct 17, 2024 03:32 PM [facility] GLYCOHEMOGLOBIN BLOOD Specimen Type: BLOOD Comment: [facility] guidelines for A1c interpretation: Glycemic control targets are based on Shared Decision Making between clinicians and patients. Criteria used to establish an A1c target recommendation can be found at https://www.dc.g ov/qualityandpat ientsafety/ and include the use of [...] and 9.27. Ref: https://ngsp.org /CAPdata.asp. The in-house [employer] vascular solution D-100 analyzer has a historical CV <= 2%. Contact the laboratory for further performance characteristics of this assay. Ordering Provider: LAURY KENYON Report Released Date/Time: Oct 15, 2024 04:37 PM Reporting Lab: [address] [address] Performing Lab: [address] [address] GLYCOHEMOGLOBIN 7.3 H 4.4-5.6 Oct 17, 2024 03:32 PM [facility] 25-OH VITAMIN D SERUM Specime n Type: [...] Oct 15, 2024 04:37 PM Reporting Lab: [address] [address] Performing Lab: [address] [address] 25-OH VITAMIN D 28.3 ng/mL 20.0-50.0 Oct 17, 2024 03:32 PM [facility] BNP (Balihoo) PLASMA Specimen Type: PLASMA Comment: BNP results less than or equal to 100 pg/ml are retail field representative of normal values in patients without CHF. BNP results greater than 100 pg/ml are considered abnormal and suggestive of CHF. Higher BNP concentrations in the first 72 hours after Acute Coronary Syndrome are associated with an increased risk of , myocardial infarction and CHF. Ordering Provider: LAURY KENYON Report Released Date/Time: Oct 15, 2024 04:37 PM Reporting Lab: [address] [address] Performing Lab: [address] [address] BNP (WOODS) 101 pg/mL H 0-100 Oct 14, 2024 10:53 AM [facility] HIV-1 VIRAL LOAD (PCR) PLASMA Speci [...] used for patients with documented HIV-1infection. The [facility] has verified the performance characteristics of this test. This test is FDA approved. Ordering Provider: HILARY FLANAGAN Report Released Date/Time: Oct 14, 2024 10:21 AM Reporting Lab: [address] [address] Performing Lab: [address] [address] .HIV-1 VIRAL LOAD (COPIES/ML) Not Detected Not Detected Oct 14, 2024 10:53 AM [facility] CD4/CD8 RATIO PROFILE BLOOD Specim en Type: BLOOD No comment entered. Ordering Provider: HILARY FLANAGAN Report Released Date/Time: Oct 14, 2024 10:21 AM Reporting Lab: [address] [address] Performing Lab: [address] [address] .% CD 4 Pos. Lymph. 29.9 L 30.8-58.5 .% CD 8 Pos. Lymph. 37.8 H 12.0-35.5 .CD 4 / CD 8 Ratio 0.79 L 0.92-3.72 .Absolute CD 4 [place] 299 /uL L [phone] .Absolute CD 8 [...] AM NON-TOBACCO USE INPATIENT [facility] Tobacco Use History This section includes a history of the smoking, or tobacco-related health factors, that were collected on or before the date of the Encounter. The data comes from the [place] facility where the Encounter took place. Date/Time Smoking Status/Tobacco Use Comment F acility Nov 24, 2015 04:48 PM NON-TOBACCO USE INPATIENT [facility] Oct 01, 2014 07:15 PM NON-TOBACCO USE INPATIENT [facility] Apr 10, 2005 01:20 PM HF V9 LIFETIME NON-SMOKER [facility] Nov 24, 2003 03:11 PM HF V9 LIFETIME NON-SMOKER [facility] Oct 07, 2002 02:26 PM HF V9 LIFETIME NON-SMOKER [facility] Advance Directives: All historical and current [...] DIRECTIVE DISCUSSION ANTHONY IRVING [facility] Encounter Notes: All associated encounter notes This section contains the clinical notes associated to the Encounter. Date/Time Encounter Note(s) Provider Source Sep 23, 2024 02:28 PM [facility] NOTE: LOCAL TITLE: [facility] NOTE STANDARD TITLE: [facility]Y [facility] NOTE DATE OF NOTE: SEP 23, 2024@14:28 ENTRY DATE: SEP 23, 2024@14:28:26 AUTHOR: MARI KOENIG EXP COSIGNER: URGENCY: STATUS: COMPLETED PMH: 1. Chronic obstructive pulmonary disease 2. Closed fracture of left humerus 3. Pseudophakia 4. Bilateral senile combined form cataracts of eyes 5. Bilateral senile combined form cataracts of eyes 6. Moderate nonproliferative diabetic retinopathy of right eye 7. 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 8. Fracture of thoracic spine T7 fracture; s/p fusion on 06-15-20 (T 5-9) 9. Chronic hypoxemic respiratory failure 10. Aneurysm of thoracic aorta 4.3cm 11. Pain in left knee 12. Human immunodeficiency virus 13. Mixed hyperlipidemia 14. Vitamin D deficiency 15. Microscopic hematuria 16. Respiratory failure 17. Coronary arteriosclerosis 18. Type 2 diabetes mellitus without complication 19. Gastroesophageal reflux disease 20. History of polyp of colon 21. Cervicalgia 22. Venous stasis 23. Benign essential hypertension 24. Low back pain 25. Benign neoplasm of colon 26. Other Malaise and Fatigue 27. Long-term current use of insulin (SNOMED CT 420154291) 28. Peripheral venous insufficiency 29. Obesity (SNOMED CT 872820215) 30. Obstructive Sleep APNEA (ADULT) (Pediatric) 31. Depressive Disorder NOS Allergies: ENALAPRIL, FOSINOPRIL, LOPID, NIASPAN 500MG ER TABLET, ATENOLOL, HYDRALAZINE VASOTEC, SIMVASTATIN, AMLODIPINE BESYLATE 5MG TABLET, SEMAGLUTIDE VS: SVS - Vital Signs Selected Measurement DT BP TEMP RESP PULSE POx F(C) (L/MIN)(%) 09/10/2024 11:20 128/64 96.1(35.6) 62 Immunizations: IM - Immunizations ADMINISTERED Immunization Series Date Facility Reaction Info INFLUENZA, HIGH-DOSE, QUADRIVALE* C 09/06/2023 [facility]* PNEUMOCOCCAL CONJUGATE PCV20, PO* 12/27/2022 [facility]* TDAP 10/14/2013 [facility]* ZOSTER RECOMBINANT 1 03/27/2023 [facility]* REFUSED ======= Immunization Date Facility Info COVID-19 (PFIZER), MRNA, LNP-S, * 09/06/2023 [facility]* <I> MENINGOCOCCAL MCV4, UNSPECIFIED * 12/27/2022 [facility]* <I> TD(ADULT) UNSPECIFIED FORMULATION 09/06/2023 [facility]* <I> ZOSTER RECOMBINANT 12/27/2022 [facility]* <I> Medications: Active and Recently Outpatient Medications (including Supplies): [...] TABLET BY MOUTH DAILY FOR FLUID ACTIVE (S) (TAKE ADDITIONAL EVENING DOSE FOR 3LB WEIGHT GAIN IN 24 HOURS OR 5LB WEIGHT GAIN IN 1 WEEK) 5) CHOLECALCIF 25MCG (D3-1,000UNIT) TAB TAKE ONE TABLET BY ACTIVE (S) MOUTH DAILY FOR VITAMIN D SUPPLEMENT 6) [...] APPLY 2 PATCHES TO SKIN DAILY ACTIVE (S) NEEDED FOR PAIN. (LEAVE ON 12 HOURS, [...] RESCUE 4MG SOLN,SPRAY,NASAL ONE ACTIVE NOSTRIL ONLY Labs: [facility] 08/23/24: WBC 10.7 RBC 4.86 HGB 13.1 L HCT 42.0 MCV 86.4 MCH 27.0 MCHC 31.2 L RDW 15.5 PLT 217 MPV 9.6 NA 132 L K+ 3.8 CL 97 L CO2 35 H ANION GAP 3.8 L BUN 15 SCR 0.9 CLCR 109 EGFR 83 GLU 187 H ROSANNE 8.1 L MAG 2.0 TOT BILI 0.9 AST 27 ALT 15 ALK PHOS 217 H TOT PRO 6.5 ALB 3.0 L GLOB 3.5 H HEP B CORE TOT AB NEG HEP C AB NON REACTIVE PANEL 1 Arnel. date GLUCOSE BUN CREAT SODIUM K CHLOR CO2 11/15/23 15:21 454 H 14 1.47 H 135 L 4.2 92 L 33 H PANEL 2 Arnel. date TOT PRO ALBUMIN SGOT SGPT Z ALK PHZ DIRECTZ TOTAL 11/15/23 15:21 8.1 3.5 16 12 260 H 0.5 CBC/PLT, BLOOD - Partial Panel found WBC , BLOOD, 11/15/23@1521 10.2 HK/cmm (5.0 - 10.0) RBC, BLOOD, 11/15/23@1521 4.90 M/cmm (4.6 - 6.2) HGB, BLOOD, 11/15/23@1521 14.1 g/dL (14.0 - 18.0) HCT, BLOOD, 11/15/23@1521 44.9 % (42.0 - 52.0) MCV, BLOOD, 11/15/23@1521 91.6 fL (80.0 - 94.0) MCH, BLOOD, 11/15/23@1521 28.8 pg (27.0 - 31.0) MCHC, BLOOD, 11/15/23@1521 31.4 Lg/dL (32.0 - 36.0) RDW, BLOOD, 11/15/23@1521 14.1 % (11.0 - 16.0) PLT, BLOOD, 11/15/23@1521 238 K/cmm (150 - 450) MPV, BLOOD, 11/15/23@1521 9.7 fL (9.0 - 13.1) NRBC, BLOOD, 11/15/23@1521 0.0 % (0.0 - 0.0) Lipid Prof Arnel. CHOL TRIG HDL LIPID PHLDL CHOLSERUM AP 11/15/23 15:21 175 158 H 34 L GLYCOHEMOGLOBIN (HPLC) 11/15/23 15:21 7.3 H TSH: 4.5225 mIU/mL (11/15/2023 15:21) B-12/FOLATE: Collection DT Specimen Test Name Result Units Ref Range 06/02/2020 14:10 PLASMA!! B12 VITAMIN 737 pg/mL 213 - 816 Vitamin D: Specimen Collection Date: Jun 02, 2020@14:10 Test name Result units Ref. range Site Code VitD-25 (TO 4.28.21) 21.4 L ng/mL 30 - 100 [6033] Estimated CrCl: >100 ml/min (ABW and Scr); 89 ml/min (eGFR adj for BW) Lipid Goal: moderate-dose statin (CAD) BP Goal: <140/90 (DM) - met A1c Goal: <7.5% (per DM Clinic) - met Medication Outcomes [facility] meds: ALBUTEROL 90MCG (CFC-F) 200D ORAL 2 PUFFS Q6H PRN: COPD ASCORBIC ACID 500MG TAB DAILY WITH IRON: ANEMIA BIKTARVY 50/200/25 TAB TAKE 1 TABLET BY MOUTH DAILY: INFECTION BUMETANIDE 2MG TAB DAILY FOR FLUID CHOLECALCIF 25MCG (D3-1,000UNIT) TAB DAILY FOR VITAMIN D SUPPLEMENT FERROUS SULFATE 324MG EC TAB DAILY: ANEMIA FINASTERIDE 5MG TAB DAILY: PROSTATE? GABAPENTIN 300MG CAP 600MG/900MG/900MG: NERVE PAIN GLUCOSE 4GM CHEW TAB NEEDED: LOW BLOOD SUGAR INSULIN CONC REG HUM 500 UNT/ML KWIKPEN INJECT 65 UNITS BID AC: DM LIDOCAINE 5% 5IN X 6IN PATCH APPLY 2 PATCHES TO SKIN DAILY: PAIN METHOCARBAMOL 750MG TAB Q6H PRN: MUSCLE SPASM METOPROLOL TARTRATE 100MG TAB TWICE A DAY: CAD/HTN OLODATEROL/TIOTROP 2.5MCG/ACTUAT 60D INH INHALE 2 PUFFS QAM: COPD PANTOPRAZOLE NA 40MG EC TAB DAILY: GERD SITAGLIPTIN (EQV-ZITUVIO) 100MG TAB DAILY: DM TAMSULOSIN HCL 0.4MG CAP QPM: BPH? TRAMADOL HCL 50MG TAB 50MG/50MG/100MG PRN: PAIN VENLAFAXINE HCL 150MG 24HR SA CAP DAILY: CHRONIC PAIN NonVA meds: ASPIRIN 81MG EC TAB DAILY: CAD NALOXONE NASAL RESCUE 4MG SOLN UD: opioid safety *ID clinic *DM clinic *Pain Pharm clinic New therapies/medication changes since last Pharmacy review: INITIAL REVIEW - PAYS COPAY - Medications set up by: Caregiver RECENT MED CHANGES: *Date Presenting to the Facility: Jul Hospital: [facility] Chief complaint: Rib fractures, falls Confirm Level of Care: Acute Inpatient Care *Date Presenting to the Facility: Aug Hospital: [facility] Chief complaint: AMS Confirm Level of Care: Acute Inpatient Care Date of discharge: Aug Plan/recommendations: 1. Problem List: - Please add indication for tamsulosin and finasteride. - Per 09/01 Cards consult: Recent hospitalization at local [facility], complicated by CHF exacerbation with new onset AFib with RVR...add to problem list if appropriate 2. Immunizations: - Follows with ID, defer to ID recs 3. Med rec: - Per nonVA DC summary, D/Lukasz with Rx Digoxin 0.125mg daily, Diltiazem 60mg q8hr, and Jardiance 10mg daily. Please add to nonVA meds if taking. 4. Anemia: - HGB >13, recommend d/c of iron/vit C 5. Duplications: - gabapentin, lidoderm, methocarbamol, tramadol, venlafaxine SA - Pain medications per Pain Clinic 6. A.fib?: Per 09/01 Cards consult response, He appears to have a CHADSVASC of 4 (age, CAD, DM, HTN), and should be on anticoagulation (if gets on, can stop aspirin). Did not find that they did an echo. It would be helpful for us to have an echo report prior to the general cardiology clinic visit. If Afib added to problem list, recommend d/c of ASA and consult for apixaban 5mg BID (age<80, Scr WNL, Wt>60kg) for stroke prophylaxis in A.fib. 7. Labs: - Reviewed nonVA labs 08/23/24 - Recommend recheck of A1c, 25OHD (evaluated need for continued vit D3) 8. Pays copay: - iron, vitC, vitD, glucose tabs more cost effective OTC 9. PIMs per 2022 [facility] Criteria review: - bumetanide (loop): increased risk of SIADH/hyponatremia; Na low last check - methocarbamol (muscle relaxant): inc'd risk of falls, anticholinergic effects - pantoprazole (PPI): inc'd risk of infection/fracture - tramadol: increased risk of SIADH/hyponatremia - venlafaxine SA: increased risk of SIADH/hyponatremia MEDICATIONS CONTRIBUTING TO FALL RISK Cardiac, antihypertensives, diuretic: bumetanide, metoprolol IR Antipsychotics, hypnotics: Antidepressant/antihistamine: venlafaxine Antianxiety [not buspirone]: Muscle relaxants: methocarbamol Narcotic analgesic: tramadol Anticonvulsant: gabapentin NSAID: Hypoglycemic: insulin concentrated, sitagliptin OTHER: BIKTARVY, finasteride, pantoprazole PPI, tamsulosin Medications that increase bleed risk: ASA EC 81mg medications for review: none Medications were reviewed by Pharm.D. for therapeutic indications as well as appropriate dosing for renal function when current labs available and not enrolled in hospice care. Continue to review quarterly. Time Spent Reviewing Chart: 40 min /angie/ Mari Koenig Pharm[employer], [employer]S Clinical Pharmacist - [facility] Signed: 09/23/2024 16:22 Receipt Acknowledged By: 09/23/2024 16:38 /es/ SHIMON SINCLAIR RN 09/24/2024 08:30 /angie/ LAURY KENYON APRN [employer]ED PRACTICE REGISTERED NURSE, MARI ORTEGA-CDD [facility]
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
--- OUTSIDE RECORDS SUMMARY | 2024-10-01 09:00 | XMS_ITS ---
CT MEDICAL NUTRITION INDIV IN [facility] Encounter Summary Created on: March 02, 2025 JACEKCHEKOROXI : 1955 Sex: Male Author Name [employer] [place] [employer] [place] Address [address] [place] [address] Care Team Providers Care Line Person Name Role Phone LAURY KENYON Primary Care [...] CLAIMS/VA MEDICAL PREFERRED PROVIDER ORGANIZAT ION (PPO) [employer] Jun 03, 2017 [id number] CATHI ROXI PATIENT [employer]MANA [facility] (WNR) MEDICARE ADVANTAGE [facility] (WN) Sep 03, 2019 [id number] ROXI WINKLER JR PATIENT [employer] [facility] (WNR) MEDICARE ADVANTAGE [facility] (WNR) Sep 03, 2019 [id number] [phone] ROXI WINKLER [employer]NA MCR (WNR) MEDICARE ADVANTAGE HUMAN A INSUR ANCE COM Apr 04, 2019 [id number] ROXI WINKLERA MCR (WNR) MEDICARE ADVANTAGE MCR (WNR) Apr 03, 2019 [id number] ROXI WINKLERA MCR (WNR) MEDICARE ADVANTAGE MCR (WNR) Apr 03, 2019 [id number] ROXI WINKLER [employer] MCR (WNR) MEDICARE ADVANTAGE MCR (WNR) Apr 03, 2019 [id number] [phone] ROXI WINKLER JR PHARMACY PRESCRIPT ION NONE Jun 03, 2017 NONE [id number] ROXI WINKLER MEDICARE PART D (WNR) MEDICARE (M) PART D Sep 03, 2023 PART D [id number] ROXI WINKLER JR PATIENT Selected Encounter This section includes the information on record at CT for the Encounter. Date/Time Encounter Type Encounter Description Reason Provider Source Oct 01, 2024 01:00 PM MEDICAL NUTRITION INDIV IN [facility] - DIETITIAN ICD-10-CM E11.8 Type 2 diabetes mellitus with unspecified complications [facility] Encounter Template Text not used by CT Assessments - Encounter Diagnoses This section includes the primary and secondary diagnoses documented for the Encounter. Date/Time Primary/Secondary Diagnosis Diagnosis Name Provider Source Oct 01, 2024 04:05 PM PRIMARY Type 2 diabetes mellitus with unspecified complications GRACIELA WELLS [facility] Oct 01, 2024 04:05 PM SECONDARY Dietary counseling and surveillance GRACIELA WELLS [facility] Plan of Treatment: Future Appointments (+ 6 months) and Future Tests (+/- 45 days) The Plan of Treatment section includes future care activities for the patient from all CT treatmentfacilities. This section includes future appointments and future orders which are active, pending or scheduled. Future Appointments This section includes appointments that were scheduled to occur 6 months from the date of the Encounter, up to a maximum of 20 appointments. The data comes from all CT treatment facilities. Appointment Date/Time Appointment Type Appointme nt Facility Name Oct 06, 2024 01:30 PM AMBULATORY - MEDICINE [place]AT[place] [facility] Oct 14, 2024 09:30 AM AMBULATORY - MEDICINE FORTUNATO [facility] Oct 14, 2024 10:00 AM AMBULATORY - MEDICINE FORTUNATOMichaela GALLEGOS [facility] Oct 17, 2024 04:00 PM AMBULATORY - MEDICINE [place] [facility] Nov 18, 2024 08:00 AM AMBULATORY - NONE [place] [facility] Nov 21, 2024 09:00 AM AMBULATORY - MEDICINE [place] [facility] Nov 21, 2024 11:20 AM [facility] Dec 11, 2024 10:00 AM AMBULATORY - SURGERY [place] [facility] Dec 23, 2024 01:30 PM [facility] January 06, 2025 10:30 AM AMBULATORY - REHAB MEDICIN E [facility] January 06, 2025 02:00 PM AMBULATORY - SURGERY [place] [facility] January 30, 2025 11:00 AM AMBULATORY - NONE [place] [facility] Feb 17, 2025 02:00 PM [facility] Lab Results: +/- 30 days of the encounter This section includes the Chemistry and Hematology Lab Results on record with CT for the patient. Radiology Reports and Pathology Reports are provided separately, in subsequent sections. Lab Results This section contains the Chemistry/Hematology Results that were resulted 30 days before or 30 daysafter the date of the Encounter. Date/Time Source Result Type Result - Unit Interpretation Reference Range Specimen Type Comment Oct 17, 2024 03:32 PM [facility] GLYCOHEMOGLOBIN BLOOD Specimen Type: BLOOD Comment: [place]-[facility] guidelines for A1c interpretation: Glycemic control targets are based on Shared Decision Making between clinicians and patients. Criteria used to establish an A1c target recommendation can be found at https://www.al.g ov/qualityandpat ientsafety/ and include the use of [...] and 9.27. Ref: https://ngsp.org /CAPdata.asp. The in-house [employer]-Admitly D-100 analyzer has a historical CV <= 2%. Contact the laboratory for further performance characteristics of this assay. Ordering Provider: LAURY KENYON Report Released Date/Time: Oct 15, 2024 04:37 PM Reporting Lab: [address] [id number] Performing Lab: [address] [address] GLYCOHEMOGLOBIN 7.3 H 4.4-5.6 Oct 17, 2024 03:32 PM [facility] 25-OH VITAMIN D SERUM [...] Oct 15, 2024 04:37 PM Reporting Lab: [address] [phone] Performing Lab: [address] [phone] 25-OH VITAMIN D 28.3 ng/mL 20.0-50.0 Oct 17, 2024 03:32 PM [facility] BNP (Rambus) PLASMA Specimen Type: PLASMA Comment: BNP results less than or equal to 100 pg/ml are patient care representative of normal values in patients without CHF. BNP results greater than 100 pg/ml are considered abnormal and suggestive of CHF. Higher BNP concentrations in the first 72 hours after Acute Coronary Syndrome are associated with an increased risk of , myocardial infarction and CHF. Ordering Provider: LAURY KENYON Report Released Date/Time: Oct 15, 2024 04:37 PM Reporting Lab: [address] [phone] Performing Lab: [address] [phone] BNP (WOODS) 101 pg/mL H 0-100 Oct 14, 2024 10:53 AM [facility] HIV-1 VIRAL LOAD (PCR) PLASMA Speci men [...] used for patients with documented HIV-1infection. The [facility] has verified the performance characteristics of this test. This test is FDA approved. Ordering Provider: HILARY FLANAGAN Report Released Date/Time: Oct 14, 2024 10:21 AM Reporting Lab: [address] [phone] Performing Lab: [address] [address] .HIV-1 VIRAL LOAD (COPIES/ML) Not Detected Not Detected Oct 14, 2024 10:53 AM [facility] CD4/CD8 RATIO PROFILE BLOOD Specim en Type: BLOOD No comment entered. Ordering Provider: HILARY FLANAGAN Report Released Date/Time: Oct 14, 2024 10:21 AM Reporting Lab: [address] [phone] Performing Lab: [address] [address] .% CD 4 Pos. Lymph. 29.9 L 30.8-58.5 .% CD 8 Pos. Lymph. 37.8 H 12.0-35.5 .CD 4 / CD 8 Ratio 0.79 L 0.92-3.72 .Absolute CD 4 [place] 299 /uL L [phone] .Absolute CD 8 [...] 05, 2016 01:12 AM NON-TOBACCO USE INPATIENT [facility] Tobacco Use History This section includes a history of the smoking, or tobacco-related health factors, that were collected on or before the date of the Encounter. The data comes from the CT facility where the Encounter took place. Date/Time Smoking Status/Tobacco Use Comment F acility Nov 24, 2015 04:48 PM NON-TOBACCO USE INPATIENT [facility] Oct 01, 2014 07:15 PM NON-TOBACCO USE INPATIENT [facility] Apr 10, 2005 01:20 PM HF V9 LIFETIME NON-SMOKER [facility] Nov 24, 2003 03:11 PM HF V9 LIFETIME NON-SMOKER [facility] Oct 07, 2002 02:26 PM HF V9 LIFETIME NON-SMOKER [facility] Advance Directives: All historical and [...] 25, 2024 ADVANCE DIRECTIVE DISCUSSION ANTHONY IRVING [facility] Encounter Notes: All associated encounter notes This section contains the clinical notes associated to the Encounter. Date/Time Encounter Note(s) Provider Source Oct 01, 2024 01:00 PM [facility] NOTE: LOCAL TITLE: [facility] NUTRITION INITIAL/ANNUAL/PROGRESS STANDARD TITLE: [facility] NOTE DATE OF NOTE: OCT 01, 2024@13:00 ENTRY DATE: OCT 01, 2024@15:34:05 AUTHOR: KESHIA WELLS COSIGNER: URGENCY: STATUS: COMPLETED Two identifiers were verified: Name, Address Time with Patient: 60 minutes Age: 69 Gender: MALE Reason for visit: initial assessment Present at visit: Patient, [facility] [place]: No Service History: Service Branch Service # Entered Discharge [employer] [phone] Sep HONORABLE Subjective Client History/Food & Nutrition-Related History: Appetite is good. Pt has been cutting back portions and eatin gmore fruit for slow intentional weight loss. Declines education today. Vision: No issues noted on visit Hearing: No issues noted on visit Mental Status/Orientation: No issues noted on visit Feeding Ability: feeds self Adaptive Feeding Equipment: None Dentition: edentulous Mouth Sores/Pain: No Chewing Problems: No, even though edentulous he can still eat an apple Swallowing Problems: No Ambulation: walker Activity Level: Sedentary Access to groceries/meals: Daughter does the grocery shopping and she and pt share cooking responsibility. Food Allergies/Intolerances: ENALAPRIL, FOSINOPRIL, LOPID, NIASPAN 500MG ER TABLET, ATENOLOL, HYDRALAZINE VASOTEC, SIMVASTATIN, AMLODIPINE BESYLATE 5MG TABLET, SEMAGLUTIDE Current Diet: NCS Oral Nutritional Supplements/OTC Vitamins/Minerals/Herbals/ Bioactive Substances: None Appetite: Good Pertinent Medical History: 1. Chronic obstructive pulmonary disease 2. Closed [...] Long-term current use of insulin (SNOMED CT 129160667) 28. Peripheral venous insufficiency 29. Obesity (SNOMED CT 100950781) 30. Obstructive Sleep APNEA (ADULT) (Pediatric) 31. Depressive Disorder NOS Pertinent Medications: 1) ALBUTEROL 90MCG (CFC-F) 200D ORAL INHL [...] ACTIVE HOURS NEEDED FOR MUSCLE SPASM 14) NEEDLE,PEN 31G,8MM USE NEEDLE NEEDLE,PEN 31G,5/16IN DEVICE ACTIVE DIRECTED FOR USE WITH U500 KWICKPEN 15) OLODATEROL/TIOTROP 2.5MCG/ACTUAT 60D INH INHALE 2 PUFFS BY ACTIVE MOUTH EVERY MORNING FOR BREATHING 16) PANTOPRAZOLE NA 40MG EC TAB TAKE ONE TABLET BY MOUTH DAILY ACTIVE TAKE ON AN EMPTY STOMACH. Indication: FOR STOMACH 17) SITAGLIPTIN (EQV-ZITUVIO) 100MG TAB TAKE ONE TABLET BY MOUTH ACTIVE DAILY -REPLACES ALOGLIPTIN. STORE IN ORIGINAL CONTAINER. OPENED BOTTLES MUST BE USED WITHIN 3 MONTHS Indication: FOR BLOOD SUGAR 18) TAMSULOSIN HCL 0.4MG CAP TAKE ONE CAPSULE BY MOUTH EVERY ACTIVE EVENING FOR PROSTATE 19) TRAMADOL HCL 50MG TAB TAKE ONE TABLET BY MOUTH EVERY MORNING ACTIVE AND TAKE ONE TABLET EVERY EVENING AND TAKE TWO TABLETS AT BEDTIME NEEDED (USE SPARINGLY. SUPPLY MUST LAST 30 DAYS. CAUSES IMPAIRMENT, RECOMMEND NOT TO DRIVE ON THIS MEDICATION.) Indication: FOR PAIN 20) VENLAFAXINE HCL 150MG 24HR SA CAP TAKE ONE CAPSULE BY MOUTH ACTIVE DAILY Indication: FOR CHRONIC PAIN Active Non-VA Medications Status 1) Non-VA ASPIRIN 81MG EC TAB 81MG MOUTH DAILY ACTIVE 2) Non-VA NALOXONE NASAL RESCUE 4MG SOLN,SPRAY,NASAL ONE ACTIVE NOSTRIL ONLY 3) Non-VA OXYGEN GAS 3 LITERS NASAL CANNULA DAILY ACTIVE 23 Total Medications Nutrition Assessment: Measurement DT WEIGHT LB(KG)[BMI] 10/01/2024 15:33 265(120.20)[37*] 02/19/2024 10:01 264.0(119.75)[37*] 02/08/2024 13:17 263.0(119.29)[37*] Height: 71 in [180.3 cm] (11/15/2023 12:52) BODY MASS INDEX - 37.0, Obesity, Grade 2 (BMI 35-39.9) IBW: 172# +/- 10% UBW: Unknown Weight change: Loss of 18 lbs x 2 years = 6% Pertinent Labs: PANEL 1 Arnel. date GLUCOSE BUN CREAT SODIUM K CHLOR CO2 11/15/23 15:21 454 H 14 1.47 H 135 L 4.2 92 L 33 H 03/27/23 10:38 229 H 16 1.16 139 4.4 97 L 38 H Albumin: 3.5 g/dL (11/15/2023 15:21) Collection DT Specimen Test Name Result Units Ref Range 11/15/2023 15:21 PLASMA!! eGFR (CKD-EPI) 51 SEE EVAL Collection DT Specimen Test Name Result Units Ref Range 06/02/2020 14:10 PLASMA!! B12 VITAMIN 737 pg/mL 213 - 816 Collection DT Specimen Test Name Result Units Ref Range 11/15/2023 15:21 PLASMA!! CHOLESTEROL 175 mg/dL 0 - 199 11/15/2023 15:21 PLASMA!! TRIGLYCERIDE 158 H mg/dL 0 - 149 11/15/2023 15:21 PLASMA!! HDL CHOLESTEROL 34 L mg/dL 40 - 69 11/15/2023 15:21 PLASMA!! DIRECT LDL CHOL. 127 H mg/dL 0 - 100 Z GLYCOHEMOGLOBIN (HPLC) 11/15/23 15:21 7.3 H 07/20/23 15:30 7.1 H Labs noted. Self-monitored blood glucose: Pt has a dexcom. Highest BG is 330 while lowest has been 68. He treats lows with a glass of milk + peanut butter crackers Pertinent Medical Tests/Procedures: Follows in DM clinic NUTRITION FOCUSED PHYSICAL FINDINGS: Muscle wasting: None visible Subcutaneous Fat Loss: None visible Hand telecommunications specialist strength: could not assess, pt has neuropathy in both hands and cannot feel his fingers *Assessment of Fluid Status/Hydration: Perceived Adequacy of Fluid Intake: Urine: Not visualized Edema/Ascites: none Skin Integrity: BLE PVD foot wounds + bandage to L great and middle toes Gastrointestinal: No N/V/D/C or GERD. Having daily BMs 24-HOUR FOOD RECALL/TYPICAL INTAKE PATTERN: Pt describes himself as a milkaholic . He does not eat sweets anymore and is trying for slow weight loss. Breakfast: 2 pieces of sausage or 4 count chick theresa chicken mini biscuits + 16oz 2% milk Lunch: Usually skips; May occasionally have some soup or pasta Dinner: May skip or will have a fried chicken salad made at home Snacks: Tangerines, grapes, apples, bananas, baked lays, beef jerky Beverages: Per Day: 48oz unsweet tea, 32oz 2% milk, ~24oz V8 juice ETOH: None Risk of Foodborne Illness: none Food/Drug Interactions: None ASSESSMENT/NUTRITION PROBLEM ETIOLOGY STATEMENT (PES): No current active nutrition problem. Although pt has nutrition problems present he declines any education/counseling and does not wish to make any additional changes at this time. Therapeutic Diet Recommendations: No Concentrated Sweets NUTRITION INTERVENTIONS: Nutrition education/counseling: Discussed pt's weight trends and intake. Encouraged meal consistency in order to help BG control. Discussed the rule of 15 to treat BG. Offered education/counseling for BG control and/or weight loss but pt declined. Patient expressed understanding of diet counseling provided. Printed material provided: None Barriers to learning: None Goals: Patient stated goal, will continue with adequate PO intake to maintain desired weight and nutritional status Monitor: PO intake of food and fluid Weights Follow-up: Provided contact information and encouraged patient and/or caregiver to call when visit desired. [facility] [address] will continue to follow with team. Will review chart quarterly during interdisciplinary treatment plan reviews. Will do home visit at least yearly, more often if clinically indicated. Alerts/Referrals: None /angie/ Keshia Wells RD, LD Clinical Dietitian Signed: 10/01/2024 16:05 KESHIA WELLS[facility]
--- OUTSIDE RECORDS SUMMARY | 2024-10-03 11:23 | XMS_ITS ---
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 Name Role Phone LAURY KENYON Primary Care [...] Pascual HUMANA CLAIMS/[place] MEDICAL PREFERRED PROVIDER ORGANIZAT AXEL (PPO) ARELIS ON [employer] LADY VARELA Jun 03, 2017 [id number] ROXI WINKLER PATIENT HUMANA MCR (WNR) MEDICARE ADVANTAGE [facility] (WNR) Sep 03, 2019 [id number] ROXI WINKLER JR PATIENT HUMANA MCR (WNR) MEDICARE ADVANTAGE MCR (WNR) Sep 03, 2019 [id number] [phone] ROXI WINKLERA MCR (WNR) MEDICARE ADVANTAGE HUMAN A INSUR ANCE COM Apr 04, 2019 [id number] ROXI WINKLERA MCR (WNR) MEDICARE ADVANTAGE MCR (WNR) Apr 03, 2019 [id number] ROXI WINKLERA MCR (WNR) MEDICARE ADVANTAGE MCR (WNR) Apr 03, 2019 [id number] [phone] ROXI WINKLERA MCR (WNR) MEDICARE ADVANTAGE MCR (WNR) Apr 03, 2019 [id number] ROXI WINKLER JR PHARMACY PRESCRIPT ION NONE Jun 03, 2017 NONE [id number] ROXI WINKLER MEDICARE PART D (WNR) MEDICARE (M) PART D Sep 03, 2023 PART D [id number] [phone] ROXI WINKLER JR PATIENT Selected Encounter This section includes the information on record at [place] for the Encounter. 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 Date/Time Primary/Secondary Diagnosis Diagnosis Name Provider Source Oct 03, 2024 03:31 PM PRIMARY Other filler leaf cutter long (current) drug therapy MARI KOENIG[facility] Plan of Treatment: Future Appointments (+ 6 months) and Future Tests (+/- 45 days) The Plan of Treatment section includes future care activities for the patient from all [place] treatmentfacilities. This section includes future appointments and future orders which are active, pending or scheduled. Future Appointments This section includes appointments that were scheduled to occur 6 months from the date of the Encounter, up to a maximum of 20 appointments. The data comes from all [place] treatment facilities. Appointment Date/Time Appointment Type Appointme nt Facility Name Oct 06, 2024 01:30 PM AMBUL[facility] - [facility] Oct 14, 2024 09:30 AM AMBULATORY - MEDICINE [facility] Oct 14, 2024 10:00 AM [facility]UL[facility] - [facility]IC[facility] Oct 17, 2024 04:00 PM [facility] - [facility]IC[facility] [facility] Nov 18, 2024 08:00 AM [facility] [place] [facility] Nov 21, 2024 09:00 AM AMBUL[facility] - [facility]IC[facility] [facility] Nov 21, 2024 11:20 AM AMBUL[facility] - MEDICINE [facility] Dec 11, 2024 10:00 AM [facility] Dec 23, 2024 01:30 PM [facility] January 06, 2025 10:30 AM AMBULATORY - [facility]IC[facility] January 06, 2025 02:00 PM [facility] [facility] January 30, 2025 11:00 AM [facility] [place] [facility] Feb 17, 2025 02:00 PM [facility] Lab Results: +/- 30 days of the encounter This section includes the Chemistry and Hematology Lab Results on record with [place] for the patient. Radiology Reports and Pathology Reports are provided separately, in subsequent sections. Lab Results This section contains the Chemistry/Hematology Results that were resulted 30 days before or 30 daysafter the date of the Encounter. Date/Time Source Result Type Result - Unit Interpretation Reference Range Specimen Type Comment Oct 17, 2024 03:32 PM [facility] GLYCOHEMOGLOBIN BLOOD Specimen Type: BLOOD Comment: [facility] guidelines for A1c interpretation: Glycemic control targets are based on Shared Decision Making between clinicians and patients. Criteria used to establish an A1c target recommendation can be found at https://www.or.g ov/qualityandpat ientsafety/ and include the use of [...] and 9.27. Ref: https://ngsp.org /CAPdata.asp. The in-house MailPix-Teikon D-100 analyzer has a historical CV <= 2%. Contact the laboratory for further performance characteristics of this assay. Ordering Provider: LAURY KENYON Report Released Date/Time: Oct 15, 2024 04:37 PM Reporting Lab: [address] [id number] Performing Lab: [address] [address] GLYCOHEMOGLOBIN 7.3 H 4.4-5.6 Oct 17, 2024 03:32 PM [facility] 25-OH VITAMIN D SERUM Specime n Type: [...] Oct 15, 2024 04:37 PM Reporting Lab: [address] [address] Performing Lab: [address] [address] 25-OH VITAMIN D 28.3 ng/mL 20.0-50.0 Oct 17, 2024 03:32 PM [facility] BNP (Flatter World) PLASMA Specimen Type: PLASMA Comment: BNP results less than or equal to 100 pg/ml are medical field representative of normal values in patients without CHF. BNP results greater than 100 pg/ml are considered abnormal and suggestive of CHF. Higher BNP concentrations in the first 72 hours after Acute Coronary Syndrome are associated with an increased risk of , myocardial infarction and CHF. Ordering Provider: LAURY KENYON Report Released Date/Time: Oct 15, 2024 04:37 PM Reporting Lab: [address] [address] Performing Lab: [address] [address] BNP (WOODS) 101 pg/mL H 0-100 Oct 14, 2024 10:53 AM [facility] HIV-1 VIRAL LOAD (PCR) PLASMA Speci [...] used for patients with documented HIV-1infection. The [facility] has verified the performance characteristics of this test. This test is FDA approved. Ordering Provider: HILARY FLANAGAN Report Released Date/Time: Oct 14, 2024 10:21 AM Reporting Lab: [place] [id number] Performing Lab: [place] [address] .HIV-1 VIRAL LOAD (COPIES/ML) Not Detected Not Detected Oct 14, 2024 10:53 AM [facility] CD4/CD8 RATIO PROFILE BLOOD Specim en Type: BLOOD No comment entered. Ordering Provider: HILARY FLANAGAN Report Released Date/Time: Oct 14, 2024 10:21 AM Reporting Lab: [place] [id number] Performing Lab: [address] [address] .% CD 4 Pos. Lymph. 29.9 L 30.8-58.5 .% CD 8 Pos. Lymph. 37.8 H 12.0-35.5 .CD 4 / CD 8 Ratio 0.79 L 0.92-3.72 .Absolute CD 4 [place] 299 /uL L 359-1519 .Absolute CD 8 Suppressor 378 /uL 109-89 7 Social History: Smoking Status (Most current) and Tobacco Use (All prior to encounter date) This section includes the most current, and the historical, smoking and tobacco- related health factors from the [place] facility where the Encounter took place. Current Smoking Status This section includes the most current smoking, or tobacco-related health factor, from the [place] facility where the Encounter took place. Date/Time Current Smoking Status Comment Anita [email or web address] May 05, 2016 01:12 AM NON-TOBACCO USE INPATIENT [facility] Tobacco Use History This section includes a history of the smoking, or tobacco-related health factors, that were collected on or before the date of the Encounter. The data comes from the [place] facility where the Encounter took place. Date/Time Smoking Status/Tobacco Use Comment Yael acsabas Nov 24, 2015 04:48 PM NON-TOBACCO USE INPATIENT [facility] Oct 01, 2014 07:15 PM NON-TOBACCO USE INPATIENT [facility] Apr 10, 2005 01:20 PM HF V9 LIFETIME NON-SMOKER [facility] Nov 24, 2003 03:11 PM HF V9 LIFETIME NON-SMOKER [facility] Oct 07, 2002 02:26 PM HF V9 LIFETIME NON-SMOKER [facility] Advance Directives: All historical and current Section Date Range: From patient's date of to the date document was created. This section includes ALL of a patient's completed or amended [place] Advance and Rescinded Directives. The entries below indicate that a directive exists for the patient, but an actual copy is not included with this document. The data comes from all [place] facilities. Date Advance Directives Provider Source Sep 25, 2024 ADVANCE DIRECTIVE DISCUSSION ANTHONY IRVING [facility] Encounter Notes: All associated encounter notes This section contains the clinical notes associated to the Encounter. Date/Time Encounter Note(s) Provider Source Oct 03, 2024 03:23 PM PHARMACY NOTE: LOCAL TITLE: PHARMACOTHERAPY NOTE STANDARD TITLE: PHARMACY NOTE DATE OF NOTE: OCT 03, 2024@15:23 ENTRY DATE: OCT 03, 2024@15:23:33 AUTHOR: MARI KOENIG EXP COSIGNER: URGENCY: STATUS: COMPLETED Reviewed current medications for possible med-related cause of recent fall. See [facility] Post Fall Note dated: 10/01/24 Fall date: 09/28/24 Pertinent medical history: COPD, visual impairment, h/o fracture, pain Description of fall(s): In bathroom. Standing and trying to change his pants. States socks were slippery, lost his balance and fell in direction of bathroom door and landing on L hip and shoulder. Could not get up so he called daughter Kimmy and she come over. She was unable to get Vet up from floor, so EMS was called and assisted Vet up from floor. EMS encouraged Vet to go to ED for further evaluation but he declined. INJURY: L hip pain and bruising, currently tender to touch. States pain has slightly improved. TREATMENT: declined transport to ED for further evaluation. Active Outpatient Medications (including Supplies): Issue Date Status Last Fill Active Outpatient Medications Refills Expiration 1) ALBUTEROL 90MCG (CFC-F) 200D ORAL INHL Qty: ACTIVE Issue: 06/17/24 3 for 90 days Sig: INHALE 2 PUFFS BY MOUTH Refills: 3 Last : 06/19/24 EVERY 6 HOURS NEEDED FOR SHORTNESS OF Expr : 06/18/25 BREATH 2) ASCORBIC ACID 500MG TAB Qty: 100 for 90 days ACTIVE Issue: 12/28/23 Sig: TAKE ONE TABLET BY MOUTH DAILY (TAKE Refills: 1 Last : 07/10/24 WITH IRON SUPPLEMENT FOR BETTER ABSORPTION) Expr : 12/28/24 3) BIKTARVY 50/200/25 TAB Qty: 30 for 30 days ACTIVE Issue: 08/11/24 Sig: TAKE 1 TABLET BY MOUTH DAILY Refills: 1 Last : 08/24/24 Indication: INFECTION Expr : 08/12/25 4) BUMETANIDE 2MG TAB Qty: 120 for 90 days Sig: ACTIVE (S) Issue: 09/12/24 TAKE ONE TABLET BY MOUTH DAILY FOR FLUID Refills: 3 Last : 10/17/24 (TAKE ADDITIONAL EVENING DOSE FOR 3LB WEIGHT Expr : 09/13/25 GAIN IN 24 HOURS OR 5LB WEIGHT GAIN IN 1 WEEK) 5) CHOLECALCIF 25MCG (D3-1,000UNIT) TAB Qty: ACTIVE (S) Issue: 09/12/24 100 for 90 days Sig: TAKE ONE TABLET BY Refills: 3 Last : 10/30/24 MOUTH DAILY FOR VITAMIN D SUPPLEMENT Expr : 09/13/25 6) FERROUS SULFATE 324MG EC TAB Qty: 100 for 90 ACTIVE Issue: 09/08/24 days Sig: TAKE 1 TABLET BY MOUTH DAILY FOR Refills: 3 Last : 09/09/24 IRON SUPPLEMENT AND ANEMIA - TAKE WITH FOOD Expr : 09/09/25 7) FINASTERIDE 5MG TAB Qty: 90 for 90 days Sig: ACTIVE Issue: 09/08/24 TAKE ONE TABLET BY MOUTH DAILY FOR PROSTATE Refills: 3 Last : 09/09/24 Expr : 09/09/25 8) GABAPENTIN 300MG CAP Qty: 240 for 30 days ACTIVE Issue: 09/01/24 Sig: TAKE TWO CAPSULES BY MOUTH EVERY Refills: 2 Last : 09/03/24 MORNING AND TAKE THREE CAPSULES EVERY Expr : 09/02/25 EVENING AND TAKE THREE CAPSULES AT BEDTIME Indication: FOR NERVE PAIN 9) GLUCOSE 4GM CHEW TAB Qty: 60 for 90 days ACTIVE Issue: 02/08/24 Sig: CHEW 4 TABLETS (16 GRAMS OF CARBS) BY Refills: 3 Last : 02/09/24 MOUTH DIRECTED NEEDED Expr : 02/08/25 Indication: FOR LOW BLOOD SUGAR 10) GLUCOSE SENSOR DEXCOM G7 Qty: 9 for 90 days ACTIVE Issue: 02/13/24 Sig: USE SENSOR DIRECTED NEEDED Refills: 1 Last : 08/02/24 Indication: FOR BLOOD SUGAR MONITORING Expr : 02/13/25 11) INSULIN CONC REG HUM 500 UNT/ML KWIKPEN Qty: ACTIVE Issue: 02/08/24 8 for 90 days Sig: INJECT 65 UNITS UNDER THE Refills: 3 Last : 02/09/24 SKIN TWICE A DAY BEFORE MEALS -KEEP Expr : 02/08/25 REFRIGERATED UNTIL PEN IN USE, ONCE IN USE DISCARD AFTER 28 DAYS Indication: FOR BLOOD SUGAR 12) LIDOCAINE 5% 5IN X 6IN PATCH Qty: 30 for 30 ACTIVE Issue: 03/04/24 days Sig: APPLY 2 PATCHES TO SKIN DAILY Refills: 9 Last : 09/24/24 NEEDED FOR PAIN. (LEAVE ON 12 HOURS, THEN Expr : 03/05/25 REMOVE FOR 12 HOURS) 13) METHOCARBAMOL 750MG TAB Qty: 120 for 30 days ACTIVE Issue: 06/17/24 Sig: TAKE ONE TABLET BY MOUTH EVERY 6 HOURS Refills: 3 Last : 09/08/24 NEEDED FOR MUSCLE SPASM Expr : 06/18/25 14) NEEDLE,PEN 31G,8MM Qty: 200 for 90 days Sig: ACTIVE Issue: 02/08/24 USE NEEDLE NEEDLE,PEN 31G,5/16IN DEVICE Refills: 3 Last : 02/08/24 DIRECTED FOR USE WITH U500 KWICKPEN Expr : 02/08/25 15) OLODATEROL/TIOTROP 2.5MCG/ACTUAT 60D INH ACTIVE Issue: 06/17/24 Qty: 3 for 90 days Sig: INHALE 2 PUFFS BY Refills: 2 Last : 09/07/24 MOUTH EVERY MORNING FOR BREATHING Expr : 06/18/25 16) PANTOPRAZOLE NA 40MG EC TAB Qty: 90 for 90 ACTIVE Issue: 09/01/24 days Sig: TAKE ONE TABLET BY MOUTH DAILY Refills: 3 Last : 09/03/24 TAKE ON AN EMPTY STOMACH. Expr : 09/02/25 Indication: FOR STOMACH 17) SITAGLIPTIN (EQV-ZITUVIO) 100MG TAB Qty: 90 ACTIVE Issue: 09/08/24 for 90 days Sig: TAKE ONE TABLET BY MOUTH Refills: 0 Last : 09/09/24 DAILY -REPLACES ALOGLIPTIN. STORE IN Expr : 12/07/24 ORIGINAL CONTAINER. OPENED BOTTLES MUST BE USED WITHIN 3 MONTHS Indication: FOR BLOOD SUGAR 18) TAMSULOSIN HCL 0.4MG CAP Qty: 90 for 90 days ACTIVE Issue: 09/08/24 Sig: TAKE ONE CAPSULE BY MOUTH EVERY EVENING Refills: 3 Last : 09/09/24 FOR PROSTATE Expr : 09/09/25 19) TRAMADOL HCL 50MG TAB Qty: 120 for 30 days ACTIVE Issue: 09/01/24 Sig: TAKE ONE TABLET BY MOUTH EVERY MORNING Refills: 2 Last : 09/03/24 AND TAKE ONE TABLET EVERY EVENING AND TAKE Expr : 03/04/25 TWO TABLETS AT BEDTIME NEEDED (USE SPARINGLY. SUPPLY MUST LAST 30 DAYS. CAUSES IMPAIRMENT, RECOMMEND NOT TO DRIVE ON THIS MEDICATION.) Indication: FOR PAIN 20) VENLAFAXINE HCL 150MG 24HR SA CAP Qty: 90 ACTIVE Issue: 09/12/24 for 90 days Sig: TAKE ONE CAPSULE BY MOUTH Refills: 3 Last : 09/28/24 DAILY Expr : 09/13/25 Indication: FOR CHRONIC PAIN Start Date Active Non-VA Medications Status Stop Date 1) Non-VA ASPIRIN 81MG EC TAB SiMG MOUTH ACTIVE DAILY 2) Non-VA NALOXONE NASAL RESCUE 4MG ACTIVE SOLN,SPRAY,NASAL Sig: ONE NOSTRIL ONLY 3) Non-VA OXYGEN GAS Si LITERS NASAL ACTIVE CANNULA DAILY 23 Total Medications VITALS AND LABS Most recent BP: 128/64 (09/10/2024 11:20) Pulse: 62 (09/10/2024 11:20) Orthostatics: none found x3m PANEL 1 Arnel. date GLUCOSE BUN CREAT SODIUM K CHLOR CO2 11/15/23 15:21 454 H 14 1.47 H 135 L 4.2 92 L 33 H 03/27/23 10:38 229 H 16 1.16 139 4.4 97 L 38 H Vit D 25-OH: Specimen Collection Date: Jun 02, 2020@14:10 Test name Result units Ref. range Site Code VitD-25 (TO 4.28.21) 21.4 L ng/mL 30 - 100 [5125] DEXA - NONE FOUND - 1Y CBC/PLT, BLOOD - Partial Panel found WBC , BLOOD, 11/15/23@1521 10.2 HK/cmm (5.0 - 10.0) RBC, BLOOD, 11/15/23 4.90 M/cmm (4.6 - 6.2) HGB, BLOOD, 11/15/23 14.1 g/dL (14.0 - 18.0) HCT, BLOOD, 11/15/23152 44.9 % (42.0 - 52.0) MCV, BLOOD, 11/15/23 91.6 fL (80.0 - 94.0) MCH, BLOOD, 11/15/23 28.8 pg (27.0 - 31.0) MCHC, BLOOD, 11/15/23 31.4 Lg/dL (32.0 - 36.0) RDW, BLOOD, 11/15/23 14.1 % (11.0 - 16.0) PLT, BLOOD, 11/15/23 238 K/cmm (150 - 450) MPV, BLOOD, 11/15/23 9.7 fL (9.0 - 13.1) NRBC, BLOOD, 11/15/23152 0.0 % (0.0 - 0.0) MEDICATIONS CONTRIBUTING TO FALL RISK Cardiac, antihypertensives, diuretic: bumetanide Antipsychotics, hypnotics: Antidepressant/antihistamine: venlafaxine SA Antianxiety [not buspirone]: Muscle relaxants: methocarbamol Narcotic analgesic: tramadol Anticonvulsant: gabapentin NSAID: Hypoglycemic: insulin conc, sitagliptin OTHER: Biktarvy, finasteride, pantoprazole PPI, tamsulosin Medications that increase bleed risk: ASA 81mg Assessment: - no new meds that increase fall risk - 25OHd at goal, taking D3 - no orthostatics - slip and fall Recommendations: - fall was not likely med-related - no med recommendations at this time - recommend checking orthostatics if able Time spent reviewing chart: 15 min PBM PharmD Pharmacotherapy Rem V12: FALLS PREVENTION Medication monitoring, no dosage change required, continue to monitor and assess /angie/ Mari Koenig, Pharm.D., B.C.P.S Clinical Pharmacist - [facility] Signed: 10/03/2024 15:31 Receipt Acknowledged By: 10/03/2024 15:32 /es/ SHIMON SINCLAIR RN 10/03/2024 15:46 /es/ LAURY KENYON APRN ADVANCED PRACTICE REGISTERED NURSE, MARI [facility]
--- OUTSIDE RECORDS SUMMARY | 2024-10-06 08:53 | XMS_ITS ---
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 Role Phone LAURY KENYON Primary [...] ON [employer] Jun 03, 2017 [id number] ROXI WINKLER PATIENT [employer] [facility] (WNR) MEDICARE ADVANTAGE [facility] (WNR) Sep 03, 2019 [id number] ROXI WINKLER JR PATIENT [employer] [facility] (WNR) MEDICARE ADVANTAGE [facility] (WNR) Sep 03, 2019 [id number] ROXI WINKLER [employer] MCR ([place]) MEDICARE ADVANTAGE HUMAN A INSUR ANCE COM Apr 04, 2019 [id number] ROXI WINKLER [employer] MCR ([place]) MEDICARE ADVANTAGE MCR (WNR) Apr 03, 2019 [id number] ROXI WINKLER [employer] MCR ([place]NR) MEDICARE ADVANTAGE MCR (WNR) Apr 03, 2019 [id number] ROXI WINKLER [employer] MCR ([place]) MEDICARE ADVANTAGE MCR ([place]NR) Apr 03, 2019 [id number] ROXI WINKLER JR PHARMACY PRESCRIPT ION NONE Jun 03, 2017 NONE [id number] ROXI WINKLER MEDICARE PART D ([place]) MEDICARE (M) PART D Sep 03, 2023 PART D [id number] [phone] ROXI WINKLER JR PATIENT Selected Encounter This section includes the information on record at [place] for the Encounter. Date/Time Encounter Type Encounter Description Reason Pro vider Source Oct 06, 2024 12:53 PM Outpatient Encounter ADMIN PAT ACTIVTIES (MASNONCT) IHE Encounter Template Text not used by [place] Plan of Treatment: Future Appointments (+ 6 months) and Future Tests (+/- 45 days) The Plan of Treatment section includes future care activities for the patient from all [place] treatmentfacilities. This section includes future appointments and future orders which are active, pending or scheduled. Future Appointments This section includes appointments that were scheduled to occur 6 months from the date of the Encounter, up to a maximum of 20 appointments. The data comes from all [place] treatment facilities. Appointment Date/Time Appointment Type Appointme nt Facility Name Oct 14, 2024 09:30 AM AMBULATORY - MEDICINE FORTUNATO TSANGYancy [facility] Oct 14, 2024 10:00 AM AMBULATORY - MEDICINE FORTUNATO GALLEGOS [facility] Oct 17, 2024 04:00 PM AMBULATORY - MEDICINE FORTUNATO GALLEGOS [facility] Nov 18, 2024 08:00 AM AMBULATORY - NONE STEPHEN Barnes [facility] Nov 21, 2024 09:00 AM AMBULATORY - MEDICINE FORTUNATO GALLEGOS [facility] Nov 21, 2024 11:20 AM AMBULATORY - MEDICINE FORTUNATO GALLEGOS [facility] Dec 11, 2024 10:00 AM AMBULATORY - SURGERY TAWNY SERRANO [facility] Dec 23, 2024 01:30 PM AMBULATORY - SURGERY TAWNY SERRANO [facility] January 06, 2025 10:30 AM AMBULATORY - REHAB MEDICIN E CELESTINO [facility] January 06, 2025 02:00 PM AMBULATORY - SURGERY TAWNY SERRANO [facility] January 30, 2025 11:00 AM AMBULATORY - NONE [place]INGJACKELINE Barnes [facility] Feb 17, 2025 02:00 PM [facility] Lab Results: +/- 30 days of the encounter This section includes the Chemistry and Hematology Lab Results on record with [place] for the patient. Radiology Reports and Pathology Reports are provided separately, in subsequent sections. Lab Results This section contains the Chemistry/Hematology Results that were resulted 30 days before or 30 daysafter the date of the Encounter. Date/Time Source Result Type Result - Unit Interpretation Reference Range Specimen Type Comment Oct 17, 2024 03:32 PM [facility] GLYCOHEMOGLOBIN BLOOD Specimen Type: BLOOD Comment: [facility] guidelines for A1c interpretation: Glycemic control targets are based on Shared Decision Making between clinicians and patients. Criteria used to establish an A1c target recommendation can be found at https://www.ut. ov/qualityandpat ientsafety/ and include the use of [...] and 9.27. Ref: https://ngsp.org /CAPdata.asp. The in-house [employer]Motion Math D-100 analyzer has a historical CV <= 2%. Contact the laboratory for further performance characteristics of this assay. Ordering Provider: LAURY KENYON Report Released Date/Time: Oct 15, 2024 04:37 PM Reporting Lab: [place] [address] Performing Lab: [address] [address] GLYCOHEMOGLOBIN 7.3 H 4.4-5.6 Oct 17, 2024 03:32 PM [facility] 25-OH VITAMIN D SERUM Specime n Type: [...] Oct 15, 2024 04:37 PM Reporting Lab: [address] [address] Performing Lab: [address] [address] 25-OH VITAMIN D 28.3 ng/mL 20.0-50.0 Oct 17, 2024 03:32 PM [facility] BNP (Vator.TV) PLASMA Specimen Type: PLASMA Comment: BNP results less than or equal to 100 pg/ml are home furnishings sales representative of normal values in patients without CHF. BNP results greater than 100 pg/ml are considered abnormal and suggestive of CHF. Higher BNP concentrations in the first 72 hours after Acute Coronary Syndrome are associated with an increased risk of , myocardial infarction and CHF. Ordering Provider: LAURY KENYON Report Released Date/Time: Oct 15, 2024 04:37 PM Reporting Lab: [address] [address] Performing Lab: [address] [address] BNP (WOODS) 101 pg/mL H 0-100 Oct 14, 2024 10:53 AM [facility] HIV-1 VIRAL LOAD (PCR) PLASMA Speci men Type: PLASMA Comment: HIV-1 RNA RT-PCR (HIV-1 VIRAL LOAD (PCR)) assay is performed by the [facility] [place] This test does not rule out the presence of HIV-1 at less than 20 copies/mL. Quantitative range is 20 (1.30 Log (Copies/mL)) - 10,000,000 (7.00 Log (Copies/mL)) copies/mL. This test should only be used for patients with documented HIV-1infection. The [facility] has verified the performance characteristics of this test. This test is FDA approved. Ordering Provider: HILARY FLANAGAN Report Released Date/Time: Oct 14, 2024 10:21 AM Reporting Lab: [facility] [address] [place] [address] Performing Lab: [address] [address] .HIV-1 VIRAL LOAD (COPIES/ML) Not Detected Not Detected Oct 14, 2024 10:53 AM [facility] CD4/CD8 RATIO PROFILE BLOOD Specim en Type: BLOOD No comment entered. Ordering Provider: HILARY FLANAGAN Report Released Date/Time: Oct 14, 2024 10:21 AM Reporting Lab: [address] [address] Performing Lab: [address] [address] .% CD 4 Pos. Lymph. 29.9 L 30.8-58.5 .% CD 8 Pos. Lymph. 37.8 H 12.0-35.5 .CD 4 / CD 8 Ratio 0.79 L 0.92-3.72 .Absolute CD 4 [place] 299 /uL L [phone] .Absolute CD 8 Suppressor 378 /uL 109-89 7 Social History: Smoking Status (Most current) and Tobacco Use (All prior to encounter date) This section includes the most current, and the historical, smoking and tobacco- related health factors from the [place] facility where the Encounter took place. Current Smoking Status This section includes the most current smoking, or tobacco-related health factor, from the [place] facility where the Encounter took place. Date/Time Current Smoking Status Comment Anita bartholomew May 05, 2016 01:12 AM NON-TOBACCO USE INPATIENT [facility] Tobacco Use History This section includes a history of the smoking, or tobacco-related health factors, that were collected on or before the date of the Encounter. The data comes from the [place] facility where the Encounter took place. Date/Time Smoking Status/Tobacco Use Comment F acility Nov 24, 2015 04:48 PM NON-TOBACCO USE INPATIENT [facility] Oct 01, 2014 07:15 PM NON-TOBACCO USE INPATIENT [facility] Apr 10, 2005 01:20 PM HF V9 LIFETIME NON-SMOKER [facility] Nov 24, 2003 03:11 PM HF V9 LIFETIME NON-SMOKER [facility] Oct 07, 2002 02:26 PM HF V9 LIFETIME NON-SMOKER [facility] Advance Directives: All historical and current Section Date Range: From patient's date of to the date document was created. This section includes ALL of a patient's completed or amended [place] Advance and Rescinded Directives. The entries below indicate that a directive exists for the patient, but an actual copy is not included with this document. The data comes from all [place] facilities. Date Advance Directives Provider Source Sep 25, 2024 ADVANCE DIRECTIVE DISCUSSION ANTHONY IRVING [facility] Encounter Notes: All associated encounter notes This section contains the clinical notes associated to the Encounter. Date/Time Encounter Note(s) Provider Source Oct 06, 2024 12:53 PM ADMINISTRATIVE NOT E: LOCAL TITLE: HEALTH BENEFITS ADMINISTRATIVE NOTE STANDARD TITLE: ADMINISTRATIVE NOTE DATE OF NOTE: OCT 06, 2024@12:53 ENTRY DATE: OCT 06, 2024@12:53:45 AUTHOR: KIMO MIDDLETON EXP COSIGNER: URGENCY: STATUS: COMPLETED Eligible for enrollment: Yes has been enrolled and assigned to priority group 8C HBA enrolled Oct came in for replacement ID; DL was presented, he was proofed through [employer] and processed through [facility] after address was verified; DL were scanned into [employer]. /angie/ KIMO MIDDLETON ADVANCE MSA Signed: 10/06/2024 12:54 KIMO MIDDLETON [facility]
--- OUTSIDE RECORDS SUMMARY | 2024-10-06 09:30 | XMS_ITS | Encounter Summary ---
Author Name [facility] [place] [facility] [place] [facility] [place] Address [address] [place] [address] Care Team Providers Care Metallographer Name Role Phone LAURY KENYON Primary Care [...] PREFERRED PROVIDER ORGANIZAT ION (PPO) ARELIS ON MAGYLADY MBOLEY Jun 03, 2017 [id number] ROXI WINKLER PATIENT [employer] MCR (WNR) MEDICARE ADVANTAGE [facility] (WNR) Sep 03, 2019 [id number] [phone] ROXI WINKLER JR PATIENT [employer] MCR (WNR) MEDICARE ADVANTAGE MCR (WNR) Sep 03, 2019 [id number] ROXI WINKLER MCR (WNR) MEDICARE ADVANTAGE HUMAN A INSUR ANCE COM Apr 04, 2019 [id number] ROXI WINKLER MCR (WNR) MEDICARE ADVANTAGE MCR (WNR) Apr 03, 2019 [id number] ROXI WINKLERA MCR (WNR) MEDICARE ADVANTAGE MCR (WNR) Apr 03, 2019 [id number] ROXI WINKLERA MCR (WNR) MEDICARE ADVANTAGE MCR (WNR) Apr 03, 2019 [id number] [phone] ROXI WINKLER JR PHARMACY PRESCRIPT ION NONE Jun 03, 2017 NONE [id number] [phone] ROXI WINKLER MEDICARE PART D (WNR) MEDICARE (M) PART D Sep 03, 2023 PART D [id number] ROXI MEDINA PATIENT Selected Encounter This section includes the information on record at [place] for the Encounter. Date/Time Encounter Type Encounter Description Reason Provider Source Oct 06, 2024 01:30 PM OFF/OP CNSLTJ NEW/EST MOD 40 CARDIOLOGY ICD-10-CM I48.0 Paroxysmal atrial fibrillation AMMON CEBALLOS Encounter Template Text not used by [place] Assessments - Encounter Diagnoses This section includes the primary and secondary diagnoses documented for the Encounter. Date/Time Primary/Secondary Diagnosis Diagnosis Name Provider Source Oct 07, 2024 11:05 AM PRIMARY Paroxysmal atrial fibrillation AMMON CEBALLOS [facility] Oct 07, 2024 11:05 AM SECONDARY Chronic diastolic (congestive) heart failure AMMON CEBALLOS [facility] Oct 07, 2024 11:05 AM SECONDARY Essential (primary) hypertension AMMON CEBALLOS [facility] Plan of Treatment: Future Appointments (+ 6 months) and Future Tests (+/- 45 days) The Plan of Treatment section includes future care activities for the patient from all [place] treatmentfacilities. This section includes future appointments and future orders which are active, pending or scheduled. Future Appointments This section includes appointments that were scheduled to occur 6 months from the date of the Encounter, up to a maximum of 20 appointments. The data comes from all [place] treatment facilities. Appointment Date/Time Appointment Type Appointme nt Facility Name Oct 14, 2024 09:30 AM AMBULATORY - MEDICINE [place] [facility] Oct 14, 2024 10:00 AM [facility] Oct 17, 2024 04:00 PM AMBULATORY - MEDICINE [place] [facility] Nov 18, 2024 08:00 AM AMBULATORY - NONE [place] [facility] Nov 21, 2024 09:00 AM [facility] Nov 21, 2024 11:20 AM [facility] Dec 11, 2024 10:00 AM [facility]ORY - [place]GERY [place] [facility] Dec 23, 2024 01:30 PM [facility] January 06, 2025 10:30 AM AMBULATORY - REHAB MEDICIN [facility] January 06, 2025 02:00 PM AMBULATORY - SURGERY [place] [facility] January 30, 2025 11:00 AM [facility] Feb 17, 2025 02:00 PM [facility] Lab Results: +/- 30 days of the encounter This section includes the Chemistry and Hematology Lab Results on record with [place] for the patient. Radiology Reports and Pathology Reports are provided separately, in subsequent sections. Lab Results This section contains the Chemistry/Hematology Results that were resulted 30 days before or 30 daysafter the date of the Encounter. Date/Time Source Result Type Result - Unit Interpretation Reference Range Specimen Type Comment Oct 17, 2024 03:32 PM [facility] GLYCOHEMOGLOBIN BLOOD Specimen Type: BLOOD Comment: [place] guidelines for A1c interpretation: Glycemic control targets are based on Shared Decision Making between clinicians and patients. Criteria used to establish an A1c target recommendation can be found at https://www.ok.g ov/qualityandpat ientsafety/ and include the use of [...] and 9.27. Ref: https://ngsp.org /CAPdata.asp. The in-house Taketake-Arbovax D-100 analyzer has a historical CV <= 2%. Contact the laboratory for further performance characteristics of this assay. Ordering Provider: LAURY KENYON Report Released Date/Time: Oct 15, 2024 04:37 PM Reporting Lab: [address] [address] Performing Lab: [address] [address] GLYCOHEMOGLOBIN 7.3 H 4.4-5.6 Oct 17, 2024 03:32 PM [facility] 25-OH VITAMIN D SERUM Specime n Type: [...] 15, 2024 04:37 PM Reporting Lab: [address] [address] Performing Lab: [address] [address] 25-OH VITAMIN D 28.3 ng/mL 20.0-50.0 Oct 17, 2024 03:32 PM [facility] BNP (SIPphone) PLASMA Specimen Type: PLASMA Comment: BNP results less than or equal to 100 pg/ml are small business sales representative of normal values in patients without CHF. BNP results greater than 100 pg/ml are considered abnormal and suggestive of CHF. Higher BNP concentrations in the first 72 hours after Acute Coronary Syndrome are associated with an increased risk of , myocardial infarction and CHF. Ordering Provider: LAURY KENYON Report Released Date/Time: Oct 15, 2024 04:37 PM Reporting Lab: [address] [address] Performing Lab: [address] [address] BNP (WOODS) 101 pg/mL H 0-100 Oct 14, 2024 10:53 AM [facility] HIV-1 VIRAL LOAD (PCR) PLASMA Speci [...] used for patients with documented HIV-1infection. The [facility] has verified the performance characteristics of this test. This test is FDA approved. Ordering Provider: HILARY FLANAGAN Report Released Date/Time: Oct 14, 2024 10:21 AM Reporting Lab: [address] [address] Performing Lab: [address] [address] .HIV-1 VIRAL LOAD (COPIES/ML) Not Detected Not Detected Oct 14, 2024 10:53 AM [facility] CD4/CD8 RATIO PROFILE BLOOD Specim en Type: BLOOD No comment entered. Ordering Provider: HILARY FLANAGAN Report Released Date/Time: Oct 14, 2024 10:21 AM Reporting Lab: [address] [address] Performing Lab: [address] [address] .% CD 4 Pos. Lymph. 29.9 L 30.8-58.5 .% CD 8 Pos. Lymph. 37.8 H 12.0-35.5 .CD 4 / CD 8 Ratio 0.79 L 0.92-3.72 .Absolute CD 4 Accokeek 299 /uL L 359-1519 .Absolute CD 8 Suppressor 378 /uL 109-89 7 Social History: Smoking Status (Most current) and Tobacco Use (All prior to encounter date) This section includes the most current, and the historical, smoking and tobacco- related health factors from the [place] facility where the Encounter took place. Current Smoking Status This section includes the most current smoking, or tobacco-related health factor, from the [place] facility where the Encounter took place. Date/Time Current Smoking Status Comment Anita ity May 05, 2016 01:12 AM NON-TOBACCO USE INPATIENT [facility] Tobacco Use History This section includes a history of the smoking, or tobacco-related health factors, that were collected on or before the date of the Encounter. The data comes from the [place] facility where the Encounter took place. Date/Time Smoking Status/Tobacco Use Comment F acility Nov 24, 2015 04:48 PM NON-TOBACCO USE INPATIENT [facility] Oct 01, 2014 07:15 PM NON-TOBACCO USE INPATIENT [facility] Apr 10, 2005 01:20 PM HF V9 LIFETIME NON-SMOKER [facility] Nov 24, 2003 03:11 PM HF V9 LIFETIME NON-SMOKER [facility] Oct 07, 2002 02:26 PM HF V9 LIFETIME NON-SMOKER [facility] Advance Directives: All historical and current Section Date Range: From patient's date of to the date document was created. This section includes ALL of a patient's completed or amended [place] Advance and Rescinded Directives. The entries below indicate that a directive exists for the patient, but an actual copy is not included with this document. The data comes from all [place] facilities. Date Advance Directives Provider Source Sep 25, 2024 ADVANCE DIRECTIVE DISCUSSION ANTHONY IRVING [facility] Encounter Notes: All associated encounter notes This section contains the clinical notes associated to the Encounter. Date/Time Encounter Note(s) Provider Source Oct 29, 2024 11:37 AM ADDENDUM: LOCAL TITLE: Addendum STANDARD TITLE: ADDENDUM DATE OF NOTE: OCT 29, 2024@11:37:52 ENTRY DATE: OCT 29, 2024@11:37:53 AUTHOR: NAYELI CHURCH EXP COSIGNER: URGENCY: STATUS: COMPLETED Fredy please bring this in to see [facility] EP ATT 1 per Ammon Ceballos to discuss Digoxin. Please place this on clinic appt. Thank you /angie/ NAYELI CHURCH RN Signed: 10/29/2024 11:39 Receipt Acknowledged By: 10/30/2024 10:00 /angie/ FREDY BOLTONRY Medical Support Asst/oa --- Original Document --- 10/06/24 CARDIOLOGY CONSULT REPONSE: (X)Nursing Intake Note Reviewed Pain: 7 (10/06/2024 13:27) Presenting problems and reason for visit: History and objective data relative to the presenting problems: 69 year old male with history of HFpEF, HTN, PAF. He is referred to us for consultation regarding recent onset of of AF/AFL. He was admitted to [facility] in [facility], 08/19/24 with respiratory failure, CHF, and new onset of Atrial Fibrillation. Also was diagnosed with pneumonia. Presents today in wheelchair on oxygen. Says he uses the wheelchair due to bad knees and history of falls from same.Juan Luis who is a nurse, accompanies him. He is currently not on OAC due to LLQ hematoma developed from Lovenox shots during last admission.He is status post 2 week heart monitor issued by local Cardiology. ECG today shows Atrial Flutter rate 67, currently on Metoprolol 50 mg BID, and Digoxin 0.125 mg daily. CHADsVASC score is 4. PMHx: HFpEF, HTN, AFL ROS: 14 point negative review except what is mentioned in HPI Current Medications: Medicine/Supplies Qty Last Filled 1) SITAGLIPTIN (EQV-ZITUVIO) 100MG TAB: TAKE ONE 90 SEP 09, 2024 TABLET BY MOUTH DAILY FOR BLOOD SUGAR -REPLACES ALOGLIPTIN. 2) ASCORBIC ACID 500MG TAB: TAKE ONE TABLET BY MOUTH 100 JUL 10, 2024 DAILY (TAKE WITH IRON SUPPLEMENT FOR BETTER 3) GLUCOSE 4GM CHEW TAB: CHEW 4 TABLETS (16 GRAMS OF 60 FEB 09, 2024 CARBS) BY MOUTH DIRECTED NEEDED FOR 4) INSULIN CONC REG HUM 500 UNT/ML KWIKPEN: INJECT 65 8 FEB 09, 2024 UNITS UNDER THE SKIN TWICE A DAY BEFORE MEALS FOR BLOOD 5) GLUCOSE SENSOR DEXCOM G7: USE SENSOR DIRECTED AUG 02, 2024 NEEDED FOR BLOOD SUGAR MONITORING 6) TRAMADOL HCL 50MG TAB: TAKE ONE TABLET BY MOUTH 120 SEP 03, 2024 EVERY MORNING AND TAKE ONE TABLET EVERY 7) LIDOCAINE 5% 5IN X 6IN PATCH: APPLY 2 PATCHES TO SEP 24, 2024 SKIN DAILY NEEDED FOR PAIN. (LEAVE ON 12 HOURS, 8) ALBUTEROL 90MCG (CFC-F) 200D ORAL INHL: INHALE 2 3 JUN 19, 2024 PUFFS BY MOUTH EVERY 6 HOURS NEEDED FOR SHORTNESS OF 9) METHOCARBAMOL 750MG TAB: TAKE ONE TABLET BY MOUTH 120 SEP 08, 2024 EVERY 6 HOURS NEEDED FOR MUSCLE SPASM 10) OLODATEROL/TIOTROP 2.5MCG/ACTUAT 60D INH: INHALE 2 3 SEP 07, 2024 PUFFS BY MOUTH EVERY MORNING FOR BREATHING 11) BIKTARVY 50/200/25 TAB: TAKE 1 TABLET BY MOUTH AUG 24, 2024 DAILY INFECTION 12) GABAPENTIN 300MG CAP: TAKE TWO CAPSULES BY MOUTH 240 SEP 03, 2024 EVERY MORNING AND TAKE THREE CAPSULES EVERY 13) PANTOPRAZOLE NA 40MG EC TAB: TAKE ONE TABLET BY 90 SEP 03, 2024 MOUTH DAILY FOR STOMACH TAKE ON AN EMPTY STOMACH. 14) FERROUS SULFATE 324MG EC TAB: TAKE 1 TABLET BY 100 SEP 09, 2024 MOUTH DAILY FOR IRON SUPPLEMENT AND ANEMIA - TAKE 15) FINASTERIDE 5MG TAB: TAKE ONE TABLET BY MOUTH 90 SEP 09, 2024 DAILY FOR PROSTATE 16) TAMSULOSIN HCL 0.4MG CAP: TAKE ONE CAPSULE BY 90 SEP 09, 2024 MOUTH EVERY EVENING FOR PROSTATE 17) BUMETANIDE 2MG TAB: TAKE ONE TABLET BY MOUTH DAILY 120 OCT 17, 2024 FOR FLUID (TAKE ADDITIONAL EVENING 18) CHOLECALCIF 25MCG (D3-1,000UNIT) TAB: TAKE ONE 100 OCT 30, 2024 TABLET BY MOUTH DAILY FOR VITAMIN D SUPPLEMENT 19) VENLAFAXINE HCL 150MG 24HR SA CAP: TAKE ONE 90 SEP 28, 2024 CAPSULE BY MOUTH DAILY FOR CHRONIC PAIN Active Non-[place] Meds == 1) OXYGEN 3 LITERS NASAL CANNULA DAILY 2) NALOXONE NASAL RESCUE 4MG Dose Unknown ONE NOSTRIL ONLY 3) ASPIRIN 81MG MOUTH DAILY Physical Exam: BP 120/71 HR 83 R 20 O2 91 General Appearance: Well developed, well-nourished, in no acute distress. Heart: RRR, no murmur, gallop or rub Lungs: slightly decreased breath sounds bilaterally Abdomen: Soft, nontender, no guarding or rebound. Bowel sounds present. Almost softball size outpouching LLQ hematoma. Extremities: No clubbing, cyanosis, or edema Psychiatric: Awake, alert and oriented x 3. Appropriate mood and affect. Skin: Warm, dry, and well perfused.No dermatitis or ulcerations. Assessment/Plan: 1. PAF- currently Atrial Flutter by ECG, rate controlled. Not currently on OAC due to abdomenal hematoma. This keeps us from proceeding with cardioversion, either electrically or with antiarrhythmic drugs at this time.CHADsVASC score is 4. Will seek outside Echo results from previous admission as well as [facility] Will recommend that PCP continue to follow him and send him back to us after resolution of hematoma, when it reasonable to start anticoagulation. 2. HFpEF- Class III, but currently may have other factors contributing to SOB after recent pneumonia. Will follow up on recent echo results. May be able to help with this once we're able to possibly restore sinus rhythm. 3. HTN- controlled Nayeli, can you get previous Echo and monitor results eventually [facility] his [facility] for when he sees Dr Ludwig later.We will hold off making appointment until PCP has determined hematoma has resolved or stabilized. I spent 30 mins reviewing history, performing an exam and evaluation, entering clinical information into EHR, interpreting results, counseling patient on their cardiac status and discussing the treatment plans. /angie/ AMMON CEBALLOS physician certified ophthalmic assistant Signed: 10/07/2024 11:05 /angie/ TK LUDWIG MD ATTENDING PHYSICIAN CARDIAC ELECTROPHYSIOLOGY Cosigned: 10/08/2024 11:09 10/08/2024 ADDENDUM STATUS: COMPLETED Daughter called-stated that when patient was seen in cardiology they were told the PCP needed to determine if hematoma was resolved-then he could be sent back to them. /katrina SINCLAIR RN Signed: 10/08/2024 09:18 Receipt Acknowledged By: 10/08/2024 09:52 /angie/ LAURY KENYON APRN ADVANCED PRACTICE REGISTERED NURSE, [facility] 10/16/2024 ADDENDUM STATUS: COMPLETED Please review and advise on follow up so does not get missed. ECHO requested. /angie/ NAYELI CHURCH RN Signed: 10/16/2024 13:00 Receipt Acknowledged By: 10/16/2024 16:40 /angie/ SEFERINO SYLVESTER STAFF PHYSICIAN 10/16/2024 13:58 /angie/ AMMON CEBALLOS physician certified ophthalmic assistant 10/16/2024 ADDENDUM STATUS: COMPLETED Panther exited clinic per RACHEL. All medications and treatment plan was discussed with prior to exiting clinic by . to RTC per Ammon Ceballos. Awaiting a time frame. /katrina CHURCH RN Signed: 10/16/2024 13:01 10/16/2024 ADDENDUM STATUS: COMPLETED Panther has since established with [facility] Team ( not yet reassigned in CPRS at time of this writing). See [facility] Telephone Note 10/10/24, [facility] provider is already aware of Cardiology recommendations. /angie/ SEFERINO SYLVESTER STAFF PHYSICIAN Signed: 10/16/2024 16:41 10/28/2024 ADDENDUM STATUS: COMPLETED Daughter called and stated that patient has 6 days left of Digoxin that was that the compound specialist at [facility] had ordereed-[facility]. They are asking for a refrill through the [facility]-will need to be mailed locally so it arrives in time. Digoxon 0.125 everyday- /angie/ SHIMON SINCLAIR RN Signed: 10/28/2024 10:03 Receipt Acknowledged By: 10/28/2024 10:05 /angie/ LAURY KENYON APRN ADVANCED PRACTICE REGISTERED NURSE, [facility] 10/28/2024 ADDENDUM STATUS: COMPLETED Daughter called and stated that patient has 6 days left of Digoxin that was that the compound specialist at [facility] had ordereed-he [facility] all of [facility]. They are asking for a refrill through the [facility]-will need to be mailed locally so it arrives in time. Please advise- Digoxon 0.125 everyday- /angie/ SHIMON SINCLAIR RN Signed: 10/28/2024 10:52 Receipt Acknowledged By: 10/29/2024 10:43 /angie/ AMMON CEBALLOS physician certified ophthalmic assistant 10/29/2024 ADDENDUM STATUS: COMPLETED Patient is requesting renewal of Digoxin which was originally prescribed by an outside Manager [employer]. Will have lining caser Nayeli Church arrange an appointment with Dr Ludwig , next available, in order to discuss whether we think he needs to continue Digoxin or not and regarding further plans for him. For now, we will NOT renew the Digoxin, as he is also on Metoprolol for rate control. /angie/ AMMON CEBALLOS physician certified ophthalmic assistant Signed: 10/29/2024 10:42 /es/ TK LUDWIG MD ATTENDING PHYSICIAN CARDIAC ELECTROPHYSIOLOGY Cosigned: 10/29/2024 14:28 Receipt Acknowledged By: 10/29/2024 11:41 /angie/ NAYELI CHURCH RN 10/30/2024 ADDENDUM STATUS: UNSIGNED You may not VIEW this UNSIGNED Addendum. NAYELI CHURCH-CDD [facility] Oct 28, 2024 10:52 AM ADDENDUM: LOCAL TITLE: Addendum STANDARD TITLE: ADDENDUM DATE OF NOTE: OCT 28, 2024@10:52:06 ENTRY DATE: OCT 28, 2024@10:52:07 AUTHOR: SHIMON SINCLAIR EXP COSIGNER: URGENCY: STATUS: COMPLETED Daughter called and stated that patient has 6 days left of Digoxin that was that the compound specialist at [facility] had ordereed-he [facility] all of [facility]. They are asking for a refrill through the [facility]-will need to be mailed locally so it arrives in time. Please advise- Digoxon 0.125 everyday- /angie/ SHIMON SINCLAIR RN Signed: 10/28/2024 10:52 Receipt Acknowledged By: 10/29/2024 10:43 /katrina CEBALLOS physician certified ophthalmic assistant --- Original Document --- 10/06/24 CARDIOLOGY CONSULT REPONSE: (X)Nursing Intake Note Reviewed Pain: 7 (10/06/2024 13:27) Presenting problems and reason for visit: History and objective data relative to the presenting problems: 69 year old male with history of HFpEF, HTN, PAF. He is referred to us for consultation regarding recent onset of of AF/AFL. He was admitted to [facility] in [facility], 08/19/24 with respiratory failure, CHF, and new onset of Atrial Fibrillation. Also was diagnosed with pneumonia. Presents today in wheelchair on oxygen. Says he uses the wheelchair due to bad knees and history of falls from same.Juan Luis who is a nurse, accompanies him. He is currently not on OAC due to LLQ hematoma developed from Lovenox shots during last admission.He is status post 2 week heart monitor issued by local Cardiology. ECG today shows Atrial Flutter rate 67, currently on Metoprolol 50 mg BID, and Digoxin 0.125 mg daily. CHADsVASC score is 4. PMHx: HFpEF, HTN, AFL ROS: 14 point negative review except what is mentioned in HPI Current Medications: Medicine/Supplies Qty Last Filled 1) SITAGLIPTIN (EQV-ZITUVIO) 100MG TAB: TAKE ONE 90 SEP 09, 2024 TABLET BY MOUTH DAILY FOR BLOOD SUGAR -REPLACES ALOGLIPTIN. 2) ASCORBIC ACID 500MG TAB: TAKE ONE TABLET BY MOUTH 100 JUL 10, 2024 DAILY (TAKE WITH IRON SUPPLEMENT FOR BETTER 3) GLUCOSE 4GM CHEW TAB: CHEW 4 TABLETS (16 GRAMS OF 60 FEB 09, 2024 CARBS) BY MOUTH DIRECTED NEEDED FOR 4) INSULIN CONC REG HUM 500 UNT/ML KWIKPEN: INJECT 65 8 FEB 09, 2024 UNITS UNDER THE SKIN TWICE A DAY BEFORE MEALS FOR BLOOD 5) GLUCOSE SENSOR DEXCOM G7: USE SENSOR DIRECTED AUG 02, 2024 NEEDED FOR BLOOD SUGAR MONITORING 6) TRAMADOL HCL 50MG TAB: TAKE ONE TABLET BY MOUTH 120 SEP 03, 2024 EVERY MORNING AND TAKE ONE TABLET EVERY 7) LIDOCAINE 5% 5IN X 6IN PATCH: APPLY 2 PATCHES TO SEP 24, 2024 SKIN DAILY NEEDED FOR PAIN. (LEAVE ON 12 HOURS, 8) ALBUTEROL 90MCG (CFC-F) 200D ORAL INHL: INHALE 2 3 JUN 19, 2024 PUFFS BY MOUTH EVERY 6 HOURS NEEDED FOR SHORTNESS OF 9) METHOCARBAMOL 750MG TAB: TAKE ONE TABLET BY MOUTH 120 SEP 08, 2024 EVERY 6 HOURS NEEDED FOR MUSCLE SPASM 10) OLODATEROL/TIOTROP 2.5MCG/ACTUAT 60D INH: INHALE 2 SEP 07, 2024 PUFFS BY MOUTH EVERY MORNING FOR BREATHING 11) BIKTARVY 50/200/25 TAB: TAKE 1 TABLET BY MOUTH AUG 24, 2024 DAILY INFECTION 12) GABAPENTIN 300MG CAP: TAKE TWO CAPSULES BY MOUTH 240 SEP 03, 2024 EVERY MORNING AND TAKE THREE CAPSULES EVERY 13) PANTOPRAZOLE NA 40MG EC TAB: TAKE ONE TABLET BY SEP 03, 2024 MOUTH DAILY FOR STOMACH TAKE ON AN EMPTY STOMACH. 14) FERROUS SULFATE 324MG EC TAB: TAKE 1 TABLET BY 100 SEP 09, 2024 MOUTH DAILY FOR IRON SUPPLEMENT AND ANEMIA - TAKE 15) FINASTERIDE 5MG TAB: TAKE ONE TABLET BY MOUTH SEP 09, 2024 DAILY FOR PROSTATE 16) TAMSULOSIN HCL 0.4MG CAP: TAKE ONE CAPSULE BY 90 SEP 09, 2024 MOUTH EVERY EVENING FOR PROSTATE 17) BUMETANIDE 2MG TAB: TAKE ONE TABLET BY MOUTH DAILY OCT 17, 2024 FOR FLUID (TAKE ADDITIONAL EVENING 18) CHOLECALCIF 25MCG (D3-1,000UNIT) TAB: TAKE ONE 100 OCT 30, 2024 TABLET BY MOUTH DAILY FOR VITAMIN D SUPPLEMENT 19) VENLAFAXINE HCL 150MG 24HR SA CAP: TAKE ONE SEP 28, 2024 CAPSULE BY MOUTH DAILY FOR CHRONIC PAIN Active Non-VA Meds == 1) OXYGEN 3 LITERS NASAL CANNULA DAILY 2) NALOXONE NASAL RESCUE 4MG Dose Unknown ONE NOSTRIL ONLY 3) ASPIRIN 81MG MOUTH DAILY Physical Exam: BP 120/71 HR 83 R 20 O2 91 General Appearance: Well developed, well-nourished, in no acute distress. Heart: RRR, no murmur, gallop or rub Lungs: slightly decreased breath sounds bilaterally Abdomen: Soft, nontender, no guarding or rebound. Bowel sounds present. Almost softball size outpouching LLQ hematoma. Extremities: No clubbing, cyanosis, or edema Psychiatric: Awake, alert and oriented x 3. Appropriate mood and affect. Skin: Warm, dry, and well perfused.No dermatitis or ulcerations. Assessment/Plan: 1. PAF- currently Atrial Flutter by ECG, rate controlled. Not currently on OAC due to abdomenal hematoma. This keeps us from proceeding with cardioversion, either electrically or with antiarrhythmic drugs at this time.CHADsVASC score is 4. Will seek outside Echo results from previous admission as well as his 2 week monitor [facility]. Will recommend that PCP continue to follow him and send him back to us after resolution of hematoma, when it reasonable to start anticoagulation. 2. HFpEF- Class III, but currently may have other factors contributing to SOB after recent pneumonia. Will follow up on recent echo results. May be able to help with this once we're able to possibly restore sinus rhythm. 3. HTN- controlled Nayeli, can you get previous Echo and monitor results eventually [facility] record for when he sees Dr Ludwig later.We will hold off making appointment until PCP has determined hematoma has resolved or stabilized. I spent 30 mins reviewing history, performing an exam and evaluation, entering clinical information into EHR, interpreting results, counseling patient on their cardiac status and discussing the treatment plans. /angie/ AMMON CEBALLOS physician certified ophthalmic assistant Signed: 10/07/2024 11:05 /angie/ TK LUDWIG MD ATTENDING PHYSICIAN CARDIAC ELECTROPHYSIOLOGY Cosigned: 10/08/2024 11:09 10/08/2024 ADDENDUM STATUS: COMPLETED Daughter called-stated that when patient was seen in cardiology they were told the PCP needed to determine if hematoma was resolved-then he could be sent back to them. /katrina SINCLAIR RN Signed: 10/08/2024 09:18 Receipt Acknowledged By: 10/08/2024 09:52 /angie/ LAURY KENYON APRN ADVANCED PRACTICE REGISTERED NURSE, [facility] 10/16/2024 ADDENDUM STATUS: COMPLETED Please review and advise on follow up so does not get missed. ECHO requested. /angie/ NAYELI CHURCH RN Signed: 10/16/2024 13:00 Receipt Acknowledged By: 10/16/2024 16:40 /angie/ SEFERINO SYLVESTER STAFF PHYSICIAN 10/16/2024 13:58 /angie/ AMMON CEBALLOS physician certified ophthalmic assistant 10/16/2024 ADDENDUM STATUS: COMPLETED Panther exited clinic per RACHEL. All medications and treatment plan was discussed with prior to exiting clinic by . to RTC per Ammon Ceballos. Awaiting a time frame. /katrina CHURCH RN Signed: 10/16/2024 13:01 10/16/2024 ADDENDUM STATUS: COMPLETED Panther has since established with [facility] Team ( not yet reassigned in CPRS at time of this writing). See [facility] Telephone Note 10/10/24, [facility] provider is already aware of Cardiology recommendations. /angie/ SEFERINO SYLVESTER STAFF PHYSICIAN Signed: 10/16/2024 16:41 10/28/2024 ADDENDUM STATUS: COMPLETED Daughter called and stated that patient has 6 days left of Digoxin that was that the compound specialist at [facility] had ordereed-[facility]. [facility]-will need to be mailed locally so it arrives in time. Digoxon 0.125 everyday- /angie/ SHIMON SINCLAIR RN Signed: 10/28/2024 10:03 Receipt Acknowledged By: 10/28/2024 10:05 /angie/ LAURY KENYON APRN ADVANCED PRACTICE REGISTERED NURSE, [facility] 10/29/2024 ADDENDUM STATUS: UNCOSIGNED Patient is requesting renewal of Digoxin which was originally prescribed by an outside Manager [employer]. Will have lining caser Nayeli Church arrange an appointment with Dr Ludwig , next available, in order to discuss whether we think he needs to continue Digoxin or not and regarding further plans for him. For now, we will NOT renew the Digoxin, as he is also on Metoprolol for rate control. /angie/ AMMON CEBALLOS physician certified ophthalmic assistant Signed: 10/29/2024 10:42 Receipt Acknowledged By: * AWAITING SIGNATURE * NAYELI CHURCH EDITH F [place] Oct 28, 2024 09:48 AM ADDENDUM: LOCAL TITLE: Addendum STANDARD TITLE: ADDENDUM DATE OF NOTE: OCT 28, 2024@09:48:25 ENTRY DATE: OCT 28, 2024@09:48:27 AUTHOR: SHIMON SINCLAIR EXP COSIGNER: URGENCY: STATUS: COMPLETED Daughter called and stated that patient has 6 days left of Digoxin that was that the compound specialist at [facility] had ordereed-[facility]. [facility] for [facility] through [facility]-will need to be mailed locally so it arrives in time. Digoxon 0.125 everyday- /angie/ SHIMON SINCLAIR RN Signed: 10/28/2024 10:03 Receipt Acknowledged By: 10/28/2024 10:05 /es/ LAURY KENYON APRN ADVANCED PRACTICE REGISTERED NURSE, [facility] --- Original Document --- 10/06/24 CARDIOLOGY CONSULT REPONSE: (X)Nursing Intake Note Reviewed Pain: 7 (10/06/2024 13:27) Presenting problems and reason for visit: History and objective data relative to the presenting problems: 69 year old male with history of HFpEF, HTN, PAF. He is referred to us for consultation regarding recent onset of of AF/AFL. He was admitted to [facility] in [facility], 08/19/24 with respiratory failure, CHF, and new onset of Atrial Fibrillation. Also was diagnosed with pneumonia. Presents today in wheelchair on oxygen. Says he uses the wheelchair due to bad knees and history of falls from same.Juan Luis who is a nurse, accompanies him. He is currently not on OAC due to LLQ hematoma developed from Lovenox shots during last admission.He is status post 2 week heart monitor issued by local Cardiology. ECG today shows Atrial Flutter rate 67, currently on Metoprolol 50 mg BID, and Digoxin 0.125 mg daily. CHADsVASC score is 4. PMHx: HFpEF, HTN, AFL ROS: 14 point negative review except what is mentioned in HPI Current Medications: Medicine/Supplies Qty Last Filled 1) SITAGLIPTIN (EQV-ZITUVIO) 100MG TAB: TAKE ONE 90 SEP 09, 2024 TABLET BY MOUTH DAILY FOR BLOOD SUGAR -REPLACES ALOGLIPTIN. 2) ASCORBIC ACID 500MG TAB: TAKE ONE TABLET BY MOUTH 100 JUL 10, 2024 DAILY (TAKE WITH IRON SUPPLEMENT FOR BETTER 3) GLUCOSE 4GM CHEW TAB: CHEW 4 TABLETS (16 GRAMS OF 60 FEB 09, 2024 CARBS) BY MOUTH DIRECTED NEEDED FOR 4) INSULIN CONC REG HUM 500 UNT/ML KWIKPEN: INJECT 65 8 FEB 09, 2024 UNITS UNDER THE SKIN TWICE A DAY BEFORE MEALS FOR BLOOD 5) GLUCOSE SENSOR DEXCOM G7: USE SENSOR DIRECTED AUG 02, 2024 NEEDED FOR BLOOD SUGAR MONITORING 6) TRAMADOL HCL 50MG TAB: TAKE ONE TABLET BY MOUTH 120 SEP 03, 2024 EVERY MORNING AND TAKE ONE TABLET EVERY 7) LIDOCAINE 5% 5IN X 6IN PATCH: APPLY 2 PATCHES TO SEP 24, 2024 SKIN DAILY NEEDED FOR PAIN. (LEAVE ON 12 HOURS, 8) ALBUTEROL 90MCG (CFC-F) 200D ORAL INHL: INHALE 2 3 JUN 19, 2024 PUFFS BY MOUTH EVERY 6 HOURS NEEDED FOR SHORTNESS OF 9) METHOCARBAMOL 750MG TAB: TAKE ONE TABLET BY MOUTH 120 SEP 08, 2024 EVERY 6 HOURS NEEDED FOR MUSCLE SPASM 10) OLODATEROL/TIOTROP 2.5MCG/ACTUAT 60D INH: INHALE 2 3 SEP 07, 2024 PUFFS BY MOUTH EVERY MORNING FOR BREATHING 11) BIKTARVY 50/200/25 TAB: TAKE 1 TABLET BY MOUTH AUG 24, 2024 DAILY INFECTION 12) GABAPENTIN 300MG CAP: TAKE TWO CAPSULES BY MOUTH 240 SEP 03, 2024 EVERY MORNING AND TAKE THREE CAPSULES EVERY 13) PANTOPRAZOLE NA 40MG EC TAB: TAKE ONE TABLET BY 90 SEP 03, 2024 MOUTH DAILY FOR STOMACH TAKE ON AN EMPTY STOMACH. 14) FERROUS SULFATE 324MG EC TAB: TAKE 1 TABLET BY 100 SEP 09, 2024 MOUTH DAILY FOR IRON SUPPLEMENT AND ANEMIA - TAKE 15) FINASTERIDE 5MG TAB: TAKE ONE TABLET BY MOUTH SEP 09, 2024 DAILY FOR PROSTATE 16) TAMSULOSIN HCL 0.4MG CAP: TAKE ONE CAPSULE BY SEP 09, 2024 MOUTH EVERY EVENING FOR PROSTATE 17) BUMETANIDE 2MG TAB: TAKE ONE TABLET BY MOUTH DAILY 120 OCT 17, 2024 FOR FLUID (TAKE ADDITIONAL EVENING 18) CHOLECALCIF 25MCG (D3-1,000UNIT) TAB: TAKE ONE 100 OCT 30, 2024 TABLET BY MOUTH DAILY FOR VITAMIN D SUPPLEMENT 19) VENLAFAXINE HCL 150MG 24HR SA CAP: TAKE ONE SEP 28, 2024 CAPSULE BY MOUTH DAILY FOR CHRONIC PAIN Active Non-VA Meds == 1) OXYGEN 3 LITERS NASAL CANNULA DAILY 2) NALOXONE NASAL RESCUE 4MG Dose Unknown ONE NOSTRIL ONLY 3) ASPIRIN 81MG MOUTH DAILY Physical Exam: BP 120/71 HR 83 R 20 O2 91 General Appearance: Well developed, well-nourished, in no acute distress. Heart: RRR, no murmur, gallop or rub Lungs: slightly decreased breath sounds bilaterally Abdomen: Soft, nontender, no guarding or rebound. Bowel sounds present. Almost softball size outpouching LLQ hematoma. Extremities: No clubbing, cyanosis, or edema Psychiatric: Awake, alert and oriented x 3. Appropriate mood and affect. Skin: Warm, dry, and well perfused.No dermatitis or ulcerations. Assessment/Plan: 1. PAF- currently Atrial Flutter by ECG, rate controlled. Not currently on OAC due to abdomenal hematoma. This keeps us from proceeding with cardioversion, either electrically or with antiarrhythmic drugs at this time.CHADsVASC score is 4. Will seek outside Echo results from previous admission as well as his 2 week monitor results ordered by [facility]. Will recommend that PCP continue to follow him and send him back to us after resolution of hematoma, when it reasonable to start anticoagulation. 2. HFpEF- Class III, but currently may have other factors contributing to SOB after recent pneumonia. Will follow up on recent echo results. May be able to help with this once we're able to possibly restore sinus rhythm. 3. HTN- controlled Nayeli, can you get previous Echo and monitor results [facility] for when he sees Dr Ludwig later.We will hold off making appointment until PCP has determined hematoma has resolved or stabilized. I spent 30 mins reviewing history, performing an exam and evaluation, entering clinical information into EHR, interpreting results, counseling patient on their cardiac status and discussing the treatment plans. /angie/ AMMON CEBALLOS physician certified ophthalmic assistant Signed: 10/07/2024 11:05 /angie/ TK LUDWIG MD ATTENDING PHYSICIAN CARDIAC ELECTROPHYSIOLOGY Cosigned: 10/08/2024 11:09 10/08/2024 ADDENDUM STATUS: COMPLETED Daughter called-stated that when patient was seen in cardiology they were told the PCP needed to determine if hematoma was resolved-then he could be sent back to them. /angie/ SHIMON SINCLAIR RN Signed: 10/08/2024 09:18 Receipt Acknowledged By: 10/08/2024 09:52 /es/ LAURY KENYON APRN ADVANCED PRACTICE REGISTERED NURSE, [facility] 10/16/2024 ADDENDUM STATUS: COMPLETED Please review and advise on follow up so does not get missed. ECHO requested. /angie/ NAYELI CHURCH RN Signed: 10/16/2024 13:00 Receipt Acknowledged By: 10/16/2024 16:40 /angie/ SEFERINO SYLVESTER STAFF PHYSICIAN 10/16/2024 13:58 /angie/ AMMON CEBALLOS physician certified ophthalmic assistant 10/16/2024 ADDENDUM STATUS: COMPLETED Panther exited clinic per RACHEL. All medications and treatment plan was discussed with prior to exiting clinic by . Panther to RTC per Ammon Ceballos. Awaiting a time frame. /angie/ NAYELI CHURCH RN Signed: 10/16/2024 13:01 10/16/2024 ADDENDUM STATUS: COMPLETED Panther has since established with [facility] Team ( not yet reassigned in CPRS at time of this writing). See [facility] Telephone Note 10/10/24, [facility] provider is already aware of Cardiology recommendations. /angie/ SEFERINO SYLVESTER STAFF PHYSICIAN Signed: 10/16/2024 16:41 SHIMON SINCLAIR-[facility] Oct 16, 2024 12:58 PM ADDENDUM: LOCAL TITLE: Addendum STANDARD TITLE: ADDENDUM DATE OF NOTE: OCT 16, 2024@12:58:57 ENTRY DATE: OCT 16, 2024@12:58:58 AUTHOR: NAYELI CHURCH EXP COSIGNER: URGENCY: STATUS: COMPLETED Please review and advise on follow up so does not get missed. ECHO requested. /katrina CHURCH RN Signed: 10/16/2024 13:00 Receipt Acknowledged By: 10/16/2024 16:40 /angie/ SEFERINO SYLVESTER STAFF PHYSICIAN 10/16/2024 13:58 /angie/ AMMON CEBALLOS physician certified ophthalmic assistant --- Original Document --- 10/06/24 CARDIOLOGY CONSULT REPONSE: (X)Nursing Intake Note Reviewed Pain: 7 (10/06/2024 13:27) Presenting problems and reason for visit: History and objective data relative to the presenting problems: 69 year old male with history of HFpEF, HTN, PAF. He is referred to us for consultation regarding recent onset of of AF/AFL. He was admitted to [facility] in [facility], 08/19/24 with respiratory failure, CHF, and new onset of Atrial Fibrillation. Also was diagnosed with pneumonia. Presents today in wheelchair on oxygen. Says he uses the wheelchair due to bad knees and history of falls from same.Juan Luis who is a nurse, accompanies him. He is currently not on OAC due to LLQ hematoma developed from Lovenox shots during last admission.He is status post 2 week heart monitor issued by local Cardiology. ECG today shows Atrial Flutter rate 67, currently on Metoprolol 50 mg BID, and Digoxin 0.125 mg daily. CHADsVASC score is 4. PMHx: HFpEF, HTN, AFL ROS: 14 point negative review except what is mentioned in HPI Current Medications: Medicine/Supplies Qty Last Filled 1) SITAGLIPTIN (EQV-ZITUVIO) 100MG TAB: TAKE ONE 90 SEP 09, 2024 TABLET BY MOUTH DAILY FOR BLOOD SUGAR -REPLACES ALOGLIPTIN. 2) ASCORBIC ACID 500MG TAB: TAKE ONE TABLET BY MOUTH 100 JUL 10, 2024 DAILY (TAKE WITH IRON SUPPLEMENT FOR BETTER 3) GLUCOSE 4GM CHEW TAB: CHEW 4 TABLETS (16 GRAMS OF 60 FEB 09, 2024 CARBS) BY MOUTH DIRECTED NEEDED FOR 4) INSULIN CONC REG HUM 500 UNT/ML KWIKPEN: INJECT 65 8 FEB 09, 2024 UNITS UNDER THE SKIN TWICE A DAY BEFORE MEALS FOR BLOOD 5) GLUCOSE SENSOR DEXCOM G7: USE SENSOR DIRECTED AUG 02, 2024 NEEDED FOR BLOOD SUGAR MONITORING 6) TRAMADOL HCL 50MG TAB: TAKE ONE TABLET BY MOUTH 120 SEP 03, 2024 EVERY MORNING AND TAKE ONE TABLET EVERY 7) LIDOCAINE 5% 5IN X 6IN PATCH: APPLY 2 PATCHES TO 30 SEP 24, 2024 SKIN DAILY NEEDED FOR PAIN. (LEAVE ON 12 HOURS, 8) ALBUTEROL 90MCG (CFC-F) 200D ORAL INHL: INHALE 2 3 JUN 19, 2024 PUFFS BY MOUTH EVERY 6 HOURS NEEDED FOR SHORTNESS OF 9) METHOCARBAMOL 750MG TAB: TAKE ONE TABLET BY MOUTH 120 SEP 08, 2024 EVERY 6 HOURS NEEDED FOR MUSCLE SPASM 10) OLODATEROL/TIOTROP 2.5MCG/ACTUAT 60D INH: INHALE 2 3 SEP 07, 2024 PUFFS BY MOUTH EVERY MORNING FOR BREATHING 11) BIKTARVY 50/200/25 TAB: TAKE 1 TABLET BY MOUTH 30 AUG 24, 2024 DAILY INFECTION 12) GABAPENTIN 300MG CAP: TAKE TWO CAPSULES BY MOUTH 240 SEP 03, 2024 EVERY MORNING AND TAKE THREE CAPSULES EVERY 13) PANTOPRAZOLE NA 40MG EC TAB: TAKE ONE TABLET BY 90 SEP 03, 2024 MOUTH DAILY FOR STOMACH TAKE ON AN EMPTY STOMACH. 14) FERROUS SULFATE 324MG EC TAB: TAKE 1 TABLET BY 100 SEP 09, 2024 MOUTH DAILY FOR IRON SUPPLEMENT AND ANEMIA - TAKE 15) FINASTERIDE 5MG TAB: TAKE ONE TABLET BY MOUTH 90 SEP 09, 2024 DAILY FOR PROSTATE 16) TAMSULOSIN HCL 0.4MG CAP: TAKE ONE CAPSULE BY 90 SEP 09, 2024 MOUTH EVERY EVENING FOR PROSTATE 17) BUMETANIDE 2MG TAB: TAKE ONE TABLET BY MOUTH DAILY 120 OCT 17, 2024 FOR FLUID (TAKE ADDITIONAL EVENING 18) CHOLECALCIF 25MCG (D3-1,000UNIT) TAB: TAKE ONE 100 OCT 30, 2024 TABLET BY MOUTH DAILY FOR VITAMIN D SUPPLEMENT 19) VENLAFAXINE HCL 150MG 24HR SA CAP: TAKE ONE 90 SEP 28, 2024 CAPSULE BY MOUTH DAILY FOR CHRONIC PAIN Active Non-VA Meds == 1) OXYGEN 3 LITERS NASAL CANNULA DAILY 2) NALOXONE NASAL RESCUE 4MG Dose Unknown ONE NOSTRIL ONLY 3) ASPIRIN 81MG MOUTH DAILY Physical Exam: BP 120/71 HR 83 R 20 O2 91 General Appearance: Well developed, well-nourished, in no acute distress. Heart: RRR, no murmur, gallop or rub Lungs: slightly decreased breath sounds bilaterally Abdomen: Soft, nontender, no guarding or rebound. Bowel sounds present. Almost softball size outpouching LLQ hematoma. Extremities: No clubbing, cyanosis, or edema Psychiatric: Awake, alert and oriented x 3. Appropriate mood and affect. Skin: Warm, dry, and well perfused.No dermatitis or ulcerations. Assessment/Plan: 1. PAF- currently Atrial Flutter by ECG, rate controlled. Not currently on OAC due to abdomenal hematoma. This keeps us from proceeding with cardioversion, either electrically or with antiarrhythmic drugs at this time.CHADsVASC score is 4. Will seek outside Echo results from previous admission as well as his 2 week monitor results ordered by [facility]. Will recommend that PCP continue to follow him and send him back to us after resolution of hematoma, when it reasonable to start anticoagulation. 2. HFpEF- Class III, but currently may have other factors contributing to SOB after recent pneumonia. Will follow up on recent echo results. May be able to help with this once we're able to possibly restore sinus rhythm. 3. HTN- controlled Nayeli, can you get previous Echo and monitor results [facility] for when he sees Dr Ludwig later.We will hold off making appointment until PCP has determined hematoma has resolved or stabilized. I spent 30 mins reviewing history, performing an exam and evaluation, entering clinical information into EHR, interpreting results, counseling patient on their cardiac status and discussing the treatment plans. /angie/ AMMON CEBALLOS physician certified ophthalmic assistant Signed: 10/07/2024 11:05 /angie/ TK LUDWIG MD ATTENDING PHYSICIAN CARDIAC ELECTROPHYSIOLOGY Cosigned: 10/08/2024 11:09 10/08/2024 ADDENDUM STATUS: COMPLETED Daughter called-stated that when patient was seen in cardiology they were told the PCP needed to determine if hematoma was resolved-then he could be sent back to them. /angie/ SHIMON SINCLAIR RN Signed: 10/08/2024 09:18 Receipt Acknowledged By: 10/08/2024 09:52 /es/ LAURY KENYON APRN ADVANCED PRACTICE REGISTERED NURSE, [facility] 10/16/2024 ADDENDUM STATUS: COMPLETED exited clinic per RACHEL. All medications and treatment plan was discussed with prior to exiting clinic by . Panther to RTC per Ammon Ceballos. Awaiting a time frame. /angie/ NAYELI CHURCH RN Signed: 10/16/2024 13:01 NAYELI CHURCH-D [facility] Oct 08, 2024 09:16 AM ADDENDUM: LOCAL TITLE: Addendum STANDARD TITLE: ADDENDUM DATE OF NOTE: OCT 08, 2024@09:16 ENTRY DATE: OCT 08, 2024@09:16:01 AUTHOR: SHIMON SINCLAIR EXP COSIGNER: URGENCY: STATUS: COMPLETED Daughter called-stated that when patient was seen in cardiology they were told the PCP needed to determine if hematoma was resolved-then he could be sent back to them. /angie/ SHIMON SINCLAIR RN Signed: 10/08/2024 09:18 Receipt Acknowledged By: 10/08/2024 09:52 /es/ LAURY KENYON APRN ADVANCED PRACTICE REGISTERED NURSE, [facility] --- Original Document --- 10/06/24 CARDIOLOGY CONSULT REPONSE: (X)Nursing Intake Note Reviewed Pain: 7 (10/06/2024 13:27) Presenting problems and reason for visit: History and objective data relative to the presenting problems: 69 year old male with history of HFpEF, HTN, PAF. He is referred to us for consultation regarding recent onset of of AF/AFL. He was admitted to [facility] in [facility], 08/19/24 with respiratory failure, CHF, and new onset of Atrial Fibrillation. Also was diagnosed with pneumonia. Presents today in wheelchair on oxygen. Says he uses the wheelchair due to bad knees and history of falls from same.Juan Luis who is a nurse, accompanies him. He is currently not on OAC due to LLQ hematoma developed from Lovenox shots during last admission.He is status post 2 week heart monitor issued by local Cardiology. ECG today shows Atrial Flutter rate 67, currently on Metoprolol 50 mg BID, and Digoxin 0.125 mg daily. CHADsVASC score is 4. PMHx: HFpEF, HTN, AFL ROS: 14 point negative review except what is mentioned in HPI Current Medications: Medicine/Supplies Qty Last Filled 1) SITAGLIPTIN (EQV-ZITUVIO) 100MG TAB: TAKE ONE 90 SEP 09, 2024 TABLET BY MOUTH DAILY FOR BLOOD SUGAR -REPLACES ALOGLIPTIN. 2) ASCORBIC ACID 500MG TAB: TAKE ONE TABLET BY MOUTH 100 JUL 10, 2024 DAILY (TAKE WITH IRON SUPPLEMENT FOR BETTER 3) GLUCOSE 4GM CHEW TAB: CHEW 4 TABLETS (16 GRAMS OF 60 FEB 09, 2024 CARBS) BY MOUTH DIRECTED NEEDED FOR 4) INSULIN CONC REG HUM 500 UNT/ML KWIKPEN: INJECT 65 8 FEB 09, 2024 UNITS UNDER THE SKIN TWICE A DAY BEFORE MEALS FOR BLOOD 5) GLUCOSE SENSOR DEXCOM G7: USE SENSOR DIRECTED AUG 02, 2024 NEEDED FOR BLOOD SUGAR MONITORING 6) TRAMADOL HCL 50MG TAB: TAKE ONE TABLET BY MOUTH 120 SEP 03, 2024 EVERY MORNING AND TAKE ONE TABLET EVERY 7) LIDOCAINE 5% 5IN X 6IN PATCH: APPLY 2 PATCHES TO SEP 24, 2024 SKIN DAILY NEEDED FOR PAIN. (LEAVE ON 12 HOURS, 8) ALBUTEROL 90MCG (CFC-F) 200D ORAL INHL: INHALE 2 3 JUN 19, 2024 PUFFS BY MOUTH EVERY 6 HOURS NEEDED FOR SHORTNESS OF 9) METHOCARBAMOL 750MG TAB: TAKE ONE TABLET BY MOUTH 120 SEP 08, 2024 EVERY 6 HOURS NEEDED FOR MUSCLE SPASM 10) OLODATEROL/TIOTROP 2.5MCG/ACTUAT 60D INH: INHALE 2 3 SEP 07, 2024 PUFFS BY MOUTH EVERY MORNING FOR BREATHING 11) BIKTARVY 50/200/25 TAB: TAKE 1 TABLET BY MOUTH AUG 24, 2024 DAILY INFECTION 12) GABAPENTIN 300MG CAP: TAKE TWO CAPSULES BY MOUTH 240 SEP 03, 2024 EVERY MORNING AND TAKE THREE CAPSULES EVERY 13) PANTOPRAZOLE NA 40MG EC TAB: TAKE ONE TABLET BY 90 SEP 03, 2024 MOUTH DAILY FOR STOMACH TAKE ON AN EMPTY STOMACH. 14) FERROUS SULFATE 324MG EC TAB: TAKE 1 TABLET BY 100 SEP 09, 2024 MOUTH DAILY FOR IRON SUPPLEMENT AND ANEMIA - TAKE 15) FINASTERIDE 5MG TAB: TAKE ONE TABLET BY MOUTH SEP 09, 2024 DAILY FOR PROSTATE 16) TAMSULOSIN HCL 0.4MG CAP: TAKE ONE CAPSULE BY SEP 09, 2024 MOUTH EVERY EVENING FOR PROSTATE 17) BUMETANIDE 2MG TAB: TAKE ONE TABLET BY MOUTH DAILY 120 OCT 17, 2024 FOR FLUID (TAKE ADDITIONAL EVENING 18) CHOLECALCIF 25MCG (D3-1,000UNIT) TAB: TAKE ONE 100 OCT 30, 2024 TABLET BY MOUTH DAILY FOR VITAMIN D SUPPLEMENT 19) VENLAFAXINE HCL 150MG 24HR SA CAP: TAKE ONE SEP 28, 2024 CAPSULE BY MOUTH DAILY FOR CHRONIC PAIN Active Non-VA Meds == 1) OXYGEN 3 LITERS NASAL CANNULA DAILY 2) NALOXONE NASAL RESCUE 4MG Dose Unknown ONE NOSTRIL ONLY 3) ASPIRIN 81MG MOUTH DAILY Physical Exam: BP 120/71 HR 83 R 20 O2 91 General Appearance: Well developed, well-nourished, in no acute distress. Heart: RRR, no murmur, gallop or rub Lungs: slightly decreased breath sounds bilaterally Abdomen: Soft, nontender, no guarding or rebound. Bowel sounds present. Almost softball size outpouching LLQ hematoma. Extremities: No clubbing, cyanosis, or edema Psychiatric: Awake, alert and oriented x 3. Appropriate mood and affect. Skin: Warm, dry, and well perfused.No dermatitis or ulcerations. Assessment/Plan: 1. PAF- currently Atrial Flutter by ECG, rate controlled. Not currently on OAC due to abdomenal hematoma. This keeps us from proceeding with cardioversion, either electrically or with antiarrhythmic drugs at this time.CHADsVASC score is 4. Will seek outside Echo results from previous admission as well as his 2 week monitor results ordered by [facility]. Will recommend that PCP continue to follow him and send him back to us after resolution of hematoma, when it reasonable to start anticoagulation. 2. HFpEF- Class III, but currently may have other factors contributing to SOB after recent pneumonia. Will follow up on recent echo results. May be able to help with this once we're able to possibly restore sinus rhythm. 3. HTN- controlled Nayeli, can you get previous Echo and monitor results eventually [facility] for when he sees Dr Ludwig later.We will hold off making appointment until PCP has determined hematoma has resolved or stabilized. I spent 30 mins reviewing history, performing an exam and evaluation, entering clinical information into EHR, interpreting results, counseling patient on their cardiac status and discussing the treatment plans. /angie/ AMMON CEBALLOS physician certified ophthalmic assistant Signed: 10/07/2024 11:05 SHIMON SINCLAIR-[facility] Oct 06, 2024 02:07 PM CARDIOLOGY CONSULT : LOCAL TITLE: CARDIOLOGY CONSULT REPONSE STANDARD TITLE: CARDIOLOGY CONSULT DATE OF NOTE: OCT 06, 2024@14:07 ENTRY DATE: OCT 06, 2024@14:08:11 AUTHOR: AMMON CEBALLOS EXP COSIGNER: TK LUDWIG URGENCY: STATUS: COMPLETED CARDIOLOGY CONSULT REPONSE Has ADDENDA (X)Nursing Intake Note Reviewed Pain: 7 (10/06/2024 13:27) Presenting problems and reason for visit: History and objective data relative to the presenting problems: 69 year old male with history of HFpEF, HTN, PAF. He is referred to us for consultation regarding recent onset of of AF/AFL. He was admitted to [facility] in [facility], 08/19/24 with respiratory failure, CHF, and new onset of Atrial Fibrillation. Also was diagnosed with pneumonia. Presents today in wheelchair on oxygen. Says he uses the wheelchair due to bad knees and history of falls from same.Juan Luis who is a nurse, accompanies him. He is currently not on OAC due to LLQ hematoma developed from Lovenox shots during last admission.He is status post 2 week heart monitor issued by local Cardiology. ECG today shows Atrial Flutter rate 67, currently on Metoprolol 50 mg BID, and Digoxin 0.125 mg daily. CHADsVASC score is 4. PMHx: HFpEF, HTN, AFL ROS: 14 point negative review except what is mentioned in HPI Current Medications: Medicine/Supplies Qty Last Filled 1) SITAGLIPTIN (EQV-ZITUVIO) 100MG TAB: TAKE ONE 90 SEP 09, 2024 TABLET BY MOUTH DAILY FOR BLOOD SUGAR -REPLACES ALOGLIPTIN. 2) ASCORBIC ACID 500MG TAB: TAKE ONE TABLET BY MOUTH 100 JUL 10, 2024 DAILY (TAKE WITH IRON SUPPLEMENT FOR BETTER 3) GLUCOSE 4GM CHEW TAB: CHEW 4 TABLETS (16 GRAMS OF 60 FEB 09, 2024 CARBS) BY MOUTH DIRECTED NEEDED FOR 4) INSULIN CONC REG HUM 500 UNT/ML KWIKPEN: INJECT 65 8 FEB 09, 2024 UNITS UNDER THE SKIN TWICE A DAY BEFORE MEALS FOR BLOOD 5) GLUCOSE SENSOR DEXCOM G7: USE SENSOR DIRECTED AUG 02, 2024 NEEDED FOR BLOOD SUGAR MONITORING 6) TRAMADOL HCL 50MG TAB: TAKE ONE TABLET BY MOUTH 120 SEP 03, 2024 EVERY MORNING AND TAKE ONE TABLET EVERY 7) LIDOCAINE 5% 5IN X 6IN PATCH: APPLY 2 PATCHES TO SEP 24, 2024 SKIN DAILY NEEDED FOR PAIN. (LEAVE ON 12 HOURS, 8) ALBUTEROL 90MCG (CFC-F) [address]D ORAL IN[facility]: INHALE 2 3 JUN 19, 2024 PUFFS BY MOUTH EVERY 6 HOURS NEEDED FOR SHORTNESS OF 9) METHOCARBAMOL 750MG TAB: TAKE ONE TABLET BY MOUTH 120 SEP 08, 2024 EVERY 6 HOURS NEEDED FOR MUSCLE SPASM 10) OLODATEROL/TIOTROP 2.5MCG/ACTUAT 60D INH: INHALE 2 3 SEP 07, 2024 PUFFS BY MOUTH EVERY MORNING FOR BREATHING 11) BIKTARVY 50/200/25 TAB: TAKE 1 TABLET BY MOUTH AUG 24, 2024 DAILY INFECTION 12) GABAPENTIN 300MG CAP: TAKE TWO CAPSULES BY MOUTH 240 SEP 03, 2024 EVERY MORNING AND TAKE THREE CAPSULES EVERY 13) PANTOPRAZOLE NA 40MG EC TAB: TAKE ONE TABLET BY 90 SEP 03, 2024 MOUTH DAILY FOR STOMACH TAKE ON AN EMPTY STOMACH. 14) FERROUS SULFATE 324MG EC TAB: TAKE 1 TABLET BY 100 SEP 09, 2024 MOUTH DAILY FOR IRON SUPPLEMENT AND ANEMIA - TAKE 15) FINASTERIDE 5MG TAB: TAKE ONE TABLET BY MOUTH SEP 09, 2024 DAILY FOR PROSTATE 16) TAMSULOSIN HCL 0.4MG CAP: TAKE ONE CAPSULE BY SEP 09, 2024 MOUTH EVERY EVENING FOR PROSTATE 17) BUMETANIDE 2MG TAB: TAKE ONE TABLET BY MOUTH DAILY 120 OCT 17, 2024 FOR FLUID (TAKE ADDITIONAL EVENING 18) CHOLECALCIF 25MCG (D3-1,000UNIT) TAB: TAKE ONE 100 OCT 30, 2024 TABLET BY MOUTH DAILY FOR VITAMIN D SUPPLEMENT 19) VENLAFAXINE HCL 150MG 24HR SA CAP: TAKE ONE SEP 28, 2024 CAPSULE BY MOUTH DAILY FOR CHRONIC PAIN Active Non-VA Meds == 1) OXYGEN 3 LITERS NASAL CANNULA DAILY 2) NALOXONE NASAL RESCUE 4MG Dose Unknown ONE NOSTRIL ONLY 3) ASPIRIN 81MG MOUTH DAILY Physical Exam: BP 120/71 HR 83 R 20 O2 91 General Appearance: Well developed, well-nourished, in no acute distress. Heart: RRR, no murmur, gallop or rub Lungs: slightly decreased breath sounds bilaterally Abdomen: Soft, nontender, no guarding or rebound. Bowel sounds present. Almost softball size outpouching LLQ hematoma. Extremities: No clubbing, cyanosis, or edema Psychiatric: Awake, alert and oriented x 3. Appropriate mood and affect. Skin: Warm, dry, and well perfused.No dermatitis or ulcerations. Assessment/Plan: 1. PAF- currently Atrial Flutter by ECG, rate controlled. Not currently on OAC due to abdomenal hematoma. This keeps us from proceeding with cardioversion, either electrically or with antiarrhythmic drugs at this time.CHADsVASC score is 4. Will seek outside Echo results from previous admission as well as his 2 week monitor results ordered [facility]. Will recommend that PCP continue to follow him and send him back to us after resolution of hematoma, when it reasonable to start anticoagulation. 2. HFpEF- Class III, but currently may have other factors contributing to SOB after recent pneumonia. Will follow up on recent echo results. May be able to help with this once we're able to possibly restore sinus rhythm. 3. HTN- controlled Nayeli, can you get previous Echo and monitor results eventually [facility] for when he sees Dr Ludwig later.We will hold off making appointment until PCP has determined hematoma has resolved or stabilized. I spent 30 mins reviewing history, performing an exam and evaluation, entering clinical information into EHR, interpreting results, counseling patient on their cardiac status and discussing the treatment plans. /angie/ AMMON CEBALLOS physician certified ophthalmic assistant Signed: 10/07/2024 11:05 /angie/ TK LUDWIG MD ATTENDING PHYSICIAN CARDIAC ELECTROPHYSIOLOGY Cosigned: 10/08/2024 11:09 10/08/2024 ADDENDUM STATUS: COMPLETED Daughter called-stated that when patient was seen in cardiology they were told the PCP needed to determine if hematoma was resolved-then he could be sent back to them. /angie/ SHIMON SINCLAIR RN Signed: 10/08/2024 09:18 Receipt Acknowledged By: 10/08/2024 09:52 /angie/ LAURY KENYON APRN ADVANCED PRACTICE REGISTERED NURSE, [facility] 10/16/2024 ADDENDUM STATUS: COMPLETED Please review and advise on follow up so does not get missed. ECHO requested. /angie/ NAYELI CHURCH RN Signed: 10/16/2024 13:00 Receipt Acknowledged By: 10/16/2024 16:40 /angie/ SEFERINO SYLVESTER STAFF PHYSICIAN 10/16/2024 13:58 /angie/ AMMON CEBALLOS physician certified ophthalmic assistant 10/16/2024 ADDENDUM STATUS: COMPLETED exited clinic per RACHEL. All medications and treatment plan was discussed with prior to exiting clinic by . Panther to RTC per Ammon Ceballos. Awaiting a time frame. /angie/ NAYELI CHURCH RN Signed: 10/16/2024 13:01 10/16/2024 ADDENDUM STATUS: COMPLETED has since established with [facility] Team ( not yet reassigned in [facility] at time of this writing). See [facility] Telephone Note 10/10/24, [facility] provider is already aware of Cardiology recommendations. /angie/ SEFERINO SYLVESTER STAFF PHYSICIAN Signed: 10/16/2024 16:41 10/28/2024 ADDENDUM STATUS: COMPLETED Daughter called and stated that patient has 6 days left of Digoxin that was that the compound specialist at [facility] had ordereed-he [facility]. They are asking for a refrill through the [facility]-will need to be mailed locally so it arrives in time. Digoxon 0.125 everyday- /angie/ SHIMON SINCLAIR RN Signed: 10/28/2024 10:03 Receipt Acknowledged By: 10/28/2024 10:05 /angie/ LAURY KENYON APRN ADVANCED PRACTICE REGISTERED NURSE, [facility] 10/28/2024 ADDENDUM STATUS: COMPLETED Daughter called and stated that patient has 6 days left of Digoxin that was that the compound specialist at [facility] had ordereed-he [facility]. They are asking for a refrill through the [facility]-will need to be mailed locally so it arrives in time. Please advise- Digoxon 0.125 everyday- /angie/ SHIMON SINCLAIR RN Signed: 10/28/2024 10:52 Receipt Acknowledged By: 10/29/2024 10:43 /angie/ AMMON CEBALLOS physician certified ophthalmic assistant 10/29/2024 ADDENDUM STATUS: COMPLETED Patient is requesting renewal of Digoxin which was originally prescribed by an outside Manager Digital Ad Operations. Will have lining caser Nayeli Church arrange an appointment with Dr Ludwig , next available, in order to discuss whether we think he needs to continue Digoxin or not and regarding further plans for him. For now, we will NOT renew the Digoxin, as he is also on Metoprolol for rate control. /angie/ AMMON CEBALLOS physician certified ophthalmic assistant Signed: 10/29/2024 10:42 /angie/ TK LUDWIG MD ATTENDING PHYSICIAN CARDIAC ELECTROPHYSIOLOGY Cosigned: 10/29/2024 14:28 Receipt Acknowledged By: 10/29/2024 11:41 /angie/ NAYELI CHURCH RN 10/29/2024 ADDENDUM STATUS: COMPLETED Fredy please bring this in to see [facility] EP ATT 1 per Ammon Ceballos to discuss Digoxin. Please place this on clinic appt. Thank you /katrina CHURCH RN Signed: 10/29/2024 11:39 Receipt Acknowledged By: 10/30/2024 10:00 /katrina BRO Medical Support Asst/oa 10/30/2024 ADDENDUM STATUS: COMPLETED CALLED NO ANSWER LEFT MESSAGE TO CALL CLINIC. LOC MAILED. /angie/ FREDY BRO Medical Support Asst/oa Signed: 10/30/2024 10:01 11/07/2024 ADDENDUM STATUS: COMPLETED [facility] Ep Att 1 11/21/2024@09:00 Above schduled with daughter on phone pid 11/21 per patient request. /angie/ NAVIN GARCIA Family Coach Signed: 11/07/2024 10:35 AMMON CEBALLOS-[facility] Oct 06, 2024 02:03 PM NURSING OUTPATIENT NOTE: LOCAL TITLE: [facility]INIC INTAKE NOTE STANDARD TITLE: NURSING OUTPATIENT NOTE DATE OF NOTE: OCT 06, 2024@14:03 ENTRY DATE: OCT 06, 2024@14:03:31 AUTHOR: OMAR GONZALES EXP COSIGNER: URGENCY: STATUS: COMPLETED Reason for visit/chief complaint: B/P: 120/71 (10/06/2024 13:27) P: 83 (10/06/2024 13:27) R: 20 (11/15/2023 14:13) T: 98.4 F [36.9 C] (10/06/2024 13:27) HT: 71 in [180.3 cm] (11/15/2023 12:52) WT: 265.0 lb [120.20 kg] (10/06/2024 13:27) Are you having any pain or recurrent pain in the last several weeks/months? Yes Severity Scale (7) Location: Duration: Characteristics: Pain education material offered to patient (for pain > 3) No Risk factors history: Hypertension Yes BP Rechecked No Comments: Patient notified manager digital ad operations available upon request for any examinations/procedures. The patient was given a list of his/her medications, instructed to review and discuss any changes or problems with their provider. Patient advised to carry a list of current medications and any allergies with them in the event of emergency situations. Allergies: local and remote ENALAPRIL, FOSINOPRIL, LOPID, NIASPAN 500MG ER TABLET, ATENOLOL, HYDRALAZINE VASOTEC, SIMVASTATIN, AMLODIPINE BESYLATE 5MG TABLET, SEMAGLUTIDE No Remote Allergy/ADR Data available for this patient Medication Reconciliation ACTIVE OUTPATIENT MEDICATIONS LOCAL/REMOTE ALBUTEROL 90MCG (CFC-F) [...] 100 for 90 days Issued: 12/28/23 Filled: 07/10/24 Expires: 12/28/24 Refills: 1 Status: ACTIVE BIKTARVY 50200/ TAB Directions: TAKE 1 TABLET BY MOUTH DAILY INFECTION Quantity: 30 for 30 days Issued: 08/11/24 Filled: 08/24/24 Expires: 08/12/25 Refills: 1 Status: ACTIVE FERROUS SULFATE 324MG EC TAB Directions: TAKE 1 TABLET BY MOUTH DAILY FOR IRON SUPPLEMENT AND ANEMIA - TAKE WITH FOOD Quantity: 100 for 90 days Issued: 09/08/24 Filled: 09/09/24 Expires: 09/09/25 Refills: 3 Status: ACTIVE FINASTERIDE 5MG TAB Directions: TAKE ONE TABLET BY MOUTH DAILY FOR PROSTATE Quantity: 90 for 90 days Issued: 09/08/24 Filled: 09/09/24 Expires: 09/09/25 Refills: 3 Status: ACTIVE GABAPENTIN 300MG CAP Directions: TAKE TWO CAPSULES BY MOUTH EVERY MORNING AND TAKE THREE CAPSULES EVERY EVENING AND TAKE THREE CAPSULES AT BEDTIME FOR NERVE PAIN Quantity: 240 for 30 days Issued: 09/01/24 Filled: 09/03/24 Expires: 09/02/25 Refills: 2 Status: ACTIVE GLUCOSE 4GM CHEW TAB Directions: CHEW 4 TABLETS (16 GRAMS OF CARBS) BY MOUTH DIRECTED NEEDED FOR LOW BLOOD SUGAR Quantity: 60 for 90 days Issued: 02/08/24 Filled: 02/09/24 Expires: 02/08/25 Refills: 3 Status: ACTIVE GLUCOSE SENSOR DEXCOM G7 Directions: USE SENSOR DIRECTED NEEDED FOR BLOOD SUGAR MONITORING Quantity: 9 for 90 days Issued: 02/13/24 Filled: 08/02/24 Expires: 02/13/25 Refills: 1 Status: ACTIVE INSULIN CONC REG HUM 500 [...] 30 for 30 days Issued: 03/04/24 Filled: 09/24/24 Expires: 03/05/25 Refills: 9 Status: ACTIVE METHOCARBAMOL 750MG TAB Directions: TAKE ONE TABLET BY MOUTH EVERY 6 HOURS NEEDED FOR MUSCLE SPASM Quantity: 120 for 30 days Issued: 06/17/24 Filled: 09/08/24 Expires: 06/18/25 Refills: 3 Status: ACTIVE OLODATEROL/TIOTROP 2.5MCG/ACTUAT 60D INH Directions: INHALE 2 PUFFS BY MOUTH EVERY MORNING FOR BREATHING Quantity: 3 for 90 days Issued: 06/17/24 Filled: 09/07/24 Expires: 06/18/25 Refills: 2 Status: ACTIVE PANTOPRAZOLE NA 40MG EC TAB Directions: TAKE ONE TABLET BY MOUTH DAILY FOR STOMACH TAKE ON AN EMPTY STOMACH. Quantity: 90 for 90 days Issued: 09/01/24 Filled: 09/03/24 Expires: 09/02/25 Refills: 3 Status: ACTIVE SITAGLIPTIN (EQV-ZITUVIO) 100MG TAB Directions: TAKE ONE TABLET BY MOUTH DAILY FOR BLOOD SUGAR -REPLACES ALOGLIPTIN. STORE IN ORIGINAL CONTAINER. OPENED BOTTLES MUST BE USED WITHIN 3 MONTHS Quantity: 90 for 90 days Issued: 09/08/24 Filled: 09/09/24 Expires: 12/07/24 Refills: 0 Status: ACTIVE TAMSULOSIN HCL 0.4MG CAP Directions: TAKE ONE CAPSULE BY MOUTH EVERY EVENING FOR PROSTATE Quantity: 90 for 90 days Issued: 09/08/24 Filled: 09/09/24 Expires: 09/09/25 Refills: 3 Status: ACTIVE TRAMADOL HCL 50MG TAB Directions: TAKE ONE TABLET BY MOUTH EVERY MORNING AND TAKE ONE TABLET EVERY EVENING AND TAKE TWO TABLETS AT BEDTIME NEEDED FOR PAIN (USE SPARINGLY. SUPPLY MUST LAST 30 DAYS. CAUSES IMPAIRMENT, RECOMMEND NOT TO DRIVE ON THIS MEDICATION.) Quantity: 120 for 30 days Issued: 09/01/24 Filled: 09/03/24 Expires: 03/04/25 Refills: 2 Status: ACTIVE VENLAFAXINE HCL 150MG 24HR SA CAP Directions: TAKE ONE CAPSULE BY MOUTH DAILY FOR CHRONIC PAIN Quantity: 90 for 90 days Issued: 09/12/24 Filled: 09/28/24 Expires: 09/13/25 Refills: 3 Status: ACTIVE BUMETANIDE 2MG TAB Directions: TAKE ONE TABLET BY MOUTH DAILY FOR FLUID (TAKE ADDITIONAL EVENING DOSE FOR 3LB WEIGHT GAIN IN 24 HOURS OR 5LB WEIGHT GAIN IN 1 WEEK) Quantity: 120 for 90 days Issued: 09/12/24 Filled: 10/17/24 Expires: 09/13/25 Refills: 3 Status: ACTIVE/SUSP CHOLECALCIF 25MCG (D3-1,000UNIT) TAB Directions: TAKE ONE TABLET BY MOUTH DAILY FOR VITAMIN D SUPPLEMENT Quantity: 100 for 90 days Issued: 09/12/24 Filled: 10/30/24 Expires: 09/13/25 Refills: 3 Status: ACTIVE/SUSP No remote medications found. PENDING OUTPATIENT MEDICATONS (LOCAL/REMOTE): No local medications found. No remote medications found. ACTIVE NONVA MEDICATIONS (LOCAL): ASPIRIN 81MG EC TAB Directions: 81MG MOUTH DAILY Status: ACTIVE NALOXONE NASAL RESCUE 4MG SOLN,SPRAY,PHIL Directions: ONE NOSTRIL ONLY Status: ACTIVE OXYGEN GAS Directions: 3 LITERS NASAL CANNULA DAILY Status: ACTIVE OUTPATIENT MEDICATIONS (LOCAL)WITHIN 90 DAYS: BUMETANIDE 2MG TAB Directions: TAKE ONE TABLET BY MOUTH DAILY FOR FLUID (TAKE ADDITIONAL EVENING DOSE FOR 3LB WEIGHT GAIN IN 24 HOURS OR 5LB WEIGHT GAIN IN 1 WEEK) Quantity: 120 for 90 days Issued: 09/12/24 Filled: 10/17/24 Expires: 09/13/25 Refills: 3 Status: ACTIVE/SUSP CHOLECALCIF 25MCG (D3-1,000UNIT) TAB Directions: TAKE ONE TABLET BY MOUTH DAILY FOR VITAMIN D SUPPLEMENT Quantity: 100 for 90 days Issued: 09/12/24 Filled: 10/30/24 Expires: 09/13/25 Refills: 3 Status: ACTIVE/SUSP GLUCOSE SENSOR DEXCOM G6 Directions: USE SENSOR DIRECTED DIRECTED NEEDED Quantity: 9 for 90 days Issued: 07/20/23 Filled: 02/21/24 Expires: 07/20/24 Refills: 1 Status: METOPROLOL TARTRATE 100MG TAB Directions: TAKE ONE TABLET BY MOUTH TWICE A DAY FOR BLOOD PRESSURE/HEART Quantity: 180 for 90 days Issued: 09/26/23 Filled: 08/11/24 Expires: 09/26/24 Refills: 1 Status: DISCONTINUED OUTPATIENT MEDICATIONS (LOCAL) WITHIN 90 DAYS: BUMETANIDE 2MG TAB Directions: TAKE ONE TABLET BY MOUTH DAILY FOR FLUID (TAKE ADDITIONAL EVENING DOSE FOR 3LB WEIGHT GAIN IN 24 HOURS OR 5LB WEIGHT GAIN IN 1 WEEK) Quantity: 120 for 90 days Issued: 09/12/24 Filled: 10/17/24 Expires: 09/13/25 Refills: 3 Status: ACTIVE/SUSP CHOLECALCIF 25MCG (D3-1,000UNIT) TAB Directions: TAKE ONE TABLET BY MOUTH DAILY FOR VITAMIN D SUPPLEMENT Quantity: 100 for 90 days Issued: 09/12/24 Filled: 10/30/24 Expires: 09/13/25 Refills: 3 Status: ACTIVE/SUSP ALBUTEROL 90MCG (CFC-F) 200D ORAL INHL Directions: [...] 02/08/24 Expires: 12/28/24 Refills: 0 Status: DISCONTINUED BIKTARVY 50/200/25 TAB Directions: TAKE 1 TABLET BY MOUTH DAILY INFECTION Quantity: 90 for 90 days Issued: 02/20/24 Filled: 05/26/24 Expires: 02/20/25 Refills: 0 Status: DISCONTINUED BUMETANIDE 2MG TAB Directions: TAKE ONE TABLET BY MOUTH DAILY FOR FLUID (TAKE ADDITIONAL EVENING DOSE FOR 3LB WEIGHT GAIN IN 24 HOURS OR 5LB WEIGHT GAIN IN 1 WEEK) Quantity: 120 for 90 days Issued: 09/11/23 Filled: 07/29/24 Expires: 09/11/24 Refills: 1 Status: DISCONTINUED CHOLECALCIF 25MCG (D3-1,000UNIT) TAB Directions: TAKE ONE TABLET BY MOUTH DAILY FOR VITAMIN D SUPPLEMENT Quantity: 100 for 90 days Issued: 09/11/23 Filled: 08/11/24 Expires: 09/11/24 Refills: 1 Status: DISCONTINUED EMPAGLIFLOZIN 25MG TAB Directions: TAKE ONE-HALF TABLET BY MOUTH EVERY MORNING FOR BLOOD SUGAR Quantity: 45 for 90 days Issued: 07/20/23 Filled: 11/11/23 Expires: 07/20/24 Refills: 2 Status: DISCONTINUED EMPAGLIFLOZIN 25MG TAB Directions: TAKE ONE-HALF TABLET BY MOUTH EVERY MORNING FOR BLOOD SUGAR Quantity: 45 for 90 days Issued: 02/08/24 Filled: 05/12/24 Expires: 02/08/25 Refills: 2 Status: DISCONTINUED FERROUS SULFATE 324MG EC TAB Directions: TAKE 1 TABLET BY MOUTH DAILY FOR IRON SUPPLEMENT AND ANEMIA - TAKE WITH FOOD Quantity: 100 for 90 days Issued: 07/16/23 Filled: 05/12/24 Expires: 07/16/24 Refills: 0 Status: DISCONTINUED FINASTERIDE 5MG TAB Directions: TAKE ONE TABLET BY MOUTH DAILY FOR PROSTATE Quantity: 90 for 90 days Issued: 08/07/23 Filled: 05/30/24 Expires: 08/07/24 Refills: 0 Status: DISCONTINUED GABAPENTIN 300MG CAP [...] 09/12/23 Expires: 09/11/24 Refills: 3 Status: DISCONTINUED NEEDLE,PEN 31G,8MM Directions: USE NEEDLE NEEDLE,PEN 31G,5/16IN DEVICE DIRECTED FOR USE WITH U500 KWICKPEN Quantity: 200 for 90 days Issued: 07/20/23 Filled: 09/14/23 Expires: 07/20/24 Refills: 3 Status: DISCONTINUED NEEDLE,PEN 31G,8MM Directions: USE NEEDLE NEEDLE,PEN 31G,5/16IN DEVICE DIRECTED FOR USE WITH U500 KWICKPEN Quantity: 200 for 90 days Issued: 02/08/24 Filled: 02/08/24 Expires: 02/08/25 Refills: 3 Status: DISCONTINUED OLODATEROL/TIOTROP 2.5MCG/ACTUAT 60D [...] 07/21/23 Expires: 07/20/24 Refills: 6 Status: DISCONTINUED SITAGLIPTIN (EQV-ZITUVIO) 100MG TAB Directions: TAKE ONE TABLET BY MOUTH DAILY FOR BLOOD SUGAR -REPLACES ALOGLIPTIN. STORE IN ORIGINAL CONTAINER. OPENED BOTTLES MUST BE USED WITHIN 3 MONTHS Quantity: 90 for 90 days Issued: 05/14/24 Filled: 05/14/24 Expires: 08/12/24 Refills: 0 Status: DISCONTINUED TAMSULOSIN HCL 0.4MG CAP Directions: TAKE ONE CAPSULE BY MOUTH EVERY EVENING FOR PROSTATE Quantity: 90 for 90 days Issued: 08/07/23 Filled: 05/30/24 Expires: 08/07/24 Refills: 0 Status: DISCONTINUED VENLAFAXINE HCL 150MG 24HR SA CAP Directions: TAKE ONE CAPSULE BY MOUTH DAILY FOR CHRONIC PAIN Quantity: 90 for 90 days Issued: 09/11/23 Filled: 07/10/24 Expires: 09/11/24 Refills: 0 Status: DISCONTINUED ALOGLIPTIN 25MG TAB Directions: TAKE ONE TABLET BY MOUTH DAILY FOR BLOOD SUGAR Quantity: 90 for 90 days Issued: 08/16/23 Filled: 11/11/23 Expires: 08/16/24 Refills: 0 Status: DISCONTINUED (EDIT) GABAPENTIN 300MG CAP Directions: TAKE THREE CAPSULES BY MOUTH EVERY MORNING AND TAKE THREE CAPSULES EVERY EVENING AND TAKE FOUR CAPSULES AT BEDTIME FOR NERVE PAIN Quantity: 300 for 30 days Issued: 06/18/24 Filled: 07/21/24 Expires: 06/19/25 Refills: 1 Status: DISCONTINUED (EDIT) LOSARTAN 100MG TAB Directions: TAKE ONE TABLET BY MOUTH DAILY FOR BLOOD PRESSURE Quantity: 90 for 90 days Issued: 08/07/23 Filled: 08/07/23 Expires: 08/07/24 Refills: 3 Status: DISCONTINUED (EDIT) PANTOPRAZOLE NA 40MG EC TAB Directions: TAKE ONE TABLET BY MOUTH TWICE A DAY FOR STOMACH. TAKE ON AN EMPTY STOMACH. Quantity: 180 for 90 days Issued: 09/11/23 Filled: 05/30/24 Expires: 09/11/24 Refills: 1 Status: DISCONTINUED (EDIT) TRAMADOL HCL 50MG TAB Directions: TAKE ONE TABLET BY MOUTH EVERY 6 HOURS NEEDED FOR PAIN (USE SPARINGLY. SUPPLY MUST LAST 30 DAYS. CAUSES IMPAIRMENT, RECOMMEND NOT TO DRIVE ON THIS MEDICATION.) Quantity: 120 for 30 days Issued: 04/07/24 Filled: 05/30/24 Expires: 10/08/24 Refills: 1 Status: DISCONTINUED (EDIT) TRAMADOL HCL 50MG TAB Directions: TAKE TWO TABLETS BY MOUTH EVERY 6 HOURS NEEDED FOR PAIN (USE SPARINGLY. SUPPLY MUST LAST 30 DAYS. CAUSES IMPAIRMENT, RECOMMEND NOT TO DRIVE ON THIS MEDICATION.) Quantity: 180 for 23 days Issued: 06/23/24 Filled: 08/11/24 Expires: 12/24/24 Refills: 1 Status: DISCONTINUED (EDIT) CLINIC MEDICATIONS (LOCAL): No local medications found. Reviewed current medications with patient/signficant other, patient/significant other reports patient taking ALL VA, Non VA & OTC medications as listed on [facility] medication tab outpatient section. /angie/ OMAR GONZALES LPN Signed: 10/06/2024 14:03 OMAR GONZALES-[facility]
--- OUTSIDE RECORDS SUMMARY | 2024-10-14 05:30 | XMS_ITS | Encounter Summary ---
Author Name [facility] [place] Organization [facility] [place] Address [address] [place] [address] Care Team Providers Care Artist'S Model Name Role Phone LAURY KENYON Primary Care [...] ON [employer] Jun 03, 2017 [id number] ROXI WINKLER PATIENT [employer] [facility] (WNR) MEDICARE ADVANTAGE [facility] (WN) Sep 03, 2019 [id number] ROXI WINKLER JR PATIENT [employer] [facility] (WNR) MEDICARE ADVANTAGE [facility] (WNR) Sep 03, 2019 [id number] ROXI WINKLERA MCR (WNR) MEDICARE ADVANTAGE HUMAN A INSUR ANCE COM Apr 04, 2019 [id number] ROXI WINKLERA MCR (WNR) MEDICARE ADVANTAGE [facility] (WNR) Apr 03, 2019 [id number] ROXI WINKLERA MCR (WNR) MEDICARE ADVANTAGE [facility] (WNR) Apr 03, 2019 [id number] ROXI WINKLERA MCR (WNR) MEDICARE ADVANTAGE [facility] (WNR) Apr 03, 2019 [id number] ROXI WINKLER JR PHARMACY PRESCRIPT ION NONE Jun 03, 2017 NONE [id number] ROXI WINKLER MEDICARE PART D (WNR) MEDICARE (M) PART D Sep 03, 2023 PART D [id number] ROXI WINKLER JR PATIENT Selected Encounter This section includes the information on record at [place] for the Encounter. Date/Time Encounter Type Encounter Description Reason Provider Source Oct 14, 2024 09:30 AM OFFICE O/P EST MOD 30 MIN INFECTIOUS DISEASE ICD-10-CM B20 Human immunodeficiency virus [HIV] disease JUAN DAVID ART Adela Encounter Template Text not used by [place] Assessments - Encounter Diagnoses This section includes the primary and secondary diagnoses documented for the Encounter. Date/Time Primary/Secondary Diagnosis Diagnosis Name Provider Source Oct 14, 2024 05:53 PM PRIMARY Human immunodeficiency virus [HIV] disease SHEMAR ART [facility] Oct 14, 2024 05:53 PM SECONDARY History of falling SHEMAR ART [facility] Oct 14, 2024 05:53 PM SECONDARY Obesity, unspecified SHEMAR ART [facility] Oct 14, 2024 05:53 PM SECONDARY Other seborrheic dermatitis SHEMAR ART [facility] Oct 14, 2024 05:53 PM SECONDARY Type 2 diabetes mellitus with hyperglycemia SHEMAR ART [facility] Oct 14, 2024 05:53 PM SECONDARY Typical atrial flutter [facility] Plan of Treatment: Future Appointments (+ 6 months) and Future Tests (+/- 45 days) The Plan of Treatment section includes future care activities for the patient from all [place] treatmentfacilities. This section includes future appointments and future orders which are active, pending or scheduled. Future Appointments This section includes appointments that were scheduled to occur 6 months from the date of the Encounter, up to a maximum of 20 appointments. The data comes from all [place] treatment facilities. Appointment Date/Time Appointment Type Appointme nt Facility Name Oct 17, 2024 04:00 PM AMBULATORY - MEDICINE [facility] Nov 18, 2024 08:00 AM AMBULATORY - NONE [facility] Nov 21, 2024 09:00 AM AMBULATORY - MEDICINE [facility] Nov 21, 2024 11:20 AM AMBULATORY - MEDICINE [facility] Dec 11, 2024 10:00 AM [facility] Dec 23, 2024 01:30 PM [facility] January 06, 2025 10:30 AM AMBULATORY - REHAB MEDICIN [facility] January 06, 2025 02:00 PM [facility] January 30, 2025 11:00 AM AMBULATORY - NONE [facility] Feb 17, 2025 02:00 PM AMBULATORY - SURGERY [facility] Lab Results: +/- 30 days of the encounter This section includes the Chemistry and Hematology Lab Results on record with CO for the patient. Radiology Reports and Pathology Reports are provided separately, in subsequent sections. Lab Results This section contains the Chemistry/Hematology Results that were resulted 30 days before or 30 daysafter the date of the Encounter. Date/Time Source Result Type Result - Unit Interpretation Reference Range Specimen Type Comment Oct 17, 2024 03:32 PM [facility] GLYCOHEMOGLOBIN BLOOD Specimen Type: BLOOD Comment: [facility] guidelines for A1c interpretation: Glycemic control targets are based on Shared Decision Making between clinicians and patients. Criteria used to establish an A1c target recommendation can be found at https://www.co. ov/qualityandpat ientsafety/ and include the use of [...] and 9.27. Ref: https://ngsp.org /CAPdata.asp. The in-house Humagade D-100 analyzer has a historical CV <= 2%. Contact the laboratory for further performance characteristics of this assay. Ordering Provider: LAURY KENYON Report Released Date/Time: Oct 15, 2024 04:37 PM Reporting Lab: [address] [id number] Performing Lab: [address] [address] GLYCOHEMOGLOBIN 7.3 H 4.4-5.6 Oct 17, 2024 03:32 PM [facility] 25-OH VITAMIN D SERUM Specime n Type: [...] Oct 15, 2024 04:37 PM Reporting Lab: [address] [id number] Performing Lab: [address] [phone] 25-OH VITAMIN D 28.3 ng/mL 20.0-50.0 Oct 17, 2024 03:32 PM [facility] BNP ([employer]) PLASMA Specimen Type: PLASMA Comment: BNP results less than or equal to 100 pg/ml are sales representative graphic art of normal values in patients without CHF. BNP results greater than 100 pg/ml are considered abnormal and suggestive of CHF. Higher BNP concentrations in the first 72 hours after Acute Coronary Syndrome are associated with an increased risk of , myocardial infarction and CHF. Ordering Provider: LAURY KENYON Report Released Date/Time: Oct 15, 2024 04:37 PM Reporting Lab: [address] [address] Performing Lab: [address] [address] BNP ([facility]) 101 pg/mL H 0-100 Oct 14, 2024 10:53 AM [facility] HIV-1 VIRAL LOAD (PCR) PLASMA Speci men Type: PLASMA Comment: HIV-1 RNA RT-PCR (HIV-1 VIRAL LOAD (PCR)) assay is performed by the [facility] This test does not rule out the presence of HIV-1 at less than 20 copies/mL. Quantitative range is 20 (1.30 Log (Copies/mL)) - 10,000,000 (7.00 Log (Copies/mL)) copies/mL. This test should only be used for patients with documented HIV-1infection. The [facility] has verified the performance characteristics of this test. This test is FDA approved. Ordering Provider: KAMERON FLANAGAN Report Released Date/Time: Oct 14, 2024 10:21 AM Reporting Lab: [place] [id number] Performing Lab: [place] [id number] .HIV-1 VIRAL LOAD (COPIES/ML) Not Detected Not Detected Oct 14, 2024 10:53 AM [facility] CD4/CD8 RATIO PROFILE BLOOD Specim en Type: BLOOD No comment entered. Ordering Provider: KAMERON FLANAGAN Report Released Date/Time: Oct 14, 2024 10:21 AM Reporting Lab: [address] [address] Performing Lab: [address] [address] .% CD 4 Pos. Lymph. 29.9 L 30.8-58.5 .% CD 8 Pos. Lymph. 37.8 H 12.0-35.5 .CD 4 / CD 8 Ratio 0.79 L 0.92-3.72 .Absolute CD 4 Crum Lynne 299 /uL L 359-1519 .Absolute CD 8 Suppressor 378 /uL 109-89 7 Social History: Smoking Status (Most current) and Tobacco Use (All prior to encounter date) This section includes the most current, and the historical, smoking and tobacco- related health factors from the [place] facility where the Encounter took place. Current Smoking Status This section includes the most current smoking, or tobacco-related health factor, from the [place] facility where the Encounter took place. Date/Time Current Smoking Status Comment Anita itfrench May 05, 2016 01:12 AM NON-TOBACCO USE INPATIENT [facility] Tobacco Use History This section includes a history of the smoking, or tobacco-related health factors, that were collected on or before the date of the Encounter. The data comes from the [place] facility where the Encounter took place. Date/Time Smoking Status/Tobacco Use Comment F acsabas Nov 24, 2015 04:48 PM NON-TOBACCO USE INPATIENT [facility] Oct 01, 2014 07:15 PM NON-TOBACCO USE INPATIENT [facility] Apr 10, 2005 01:20 PM HF V9 LIFETIME NON-SMOKER [facility] Nov 24, 2003 03:11 PM HF V9 LIFETIME NON-SMOKER [facility] Oct 07, 2002 02:26 PM HF V9 LIFETIME NON-SMOKER [facility] Advance Directives: All historical and current Section Date Range: From patient's date of to the date document was created. This section includes ALL of a patient's completed or amended [place] Advance and Rescinded Directives. The entries below indicate that a directive exists for the patient, but an actual copy is not included with this document. The data comes from all [place] facilities. Date Advance Directives Provider Source Sep 25, 2024 ADVANCE DIRECTIVE DISCUSSION ANTHONY IRVING [facility] Encounter Notes: All associated encounter notes This section contains the clinical notes associated to the Encounter. Date/Time Encounter Note(s) Provider Source Oct 28, 2024 08:50 AM LETTERS: LOCAL TITLE: INFECTIOUS DISEASE PATIENT LETTER STANDARD TITLE: LETTERS DATE OF NOTE: OCT 28, 2024@08:50 ENTRY DATE: OCT 28, 2024@08:50:07 AUTHOR: CAROLINE MONCADA I EXP COSIGNER: URGENCY: STATUS: COMPLETED [facility] [address] [id number] Mr. ROXI WINKLER [address] [place] [id number] OCT 28, 2024 Dear Mr. ROXI WINKLER, Test Results: I am writing to inform you of recent test results obtained at the last clinic visit on Oct. CD4 count was 299. Viral load was Non-detected. If you have any questions or concerns about the results, please call Kylee Art M.D. at [facility] at . Sincerely, /angie/ CAROLINE MONCADA Patient Record Number [id number] Infectious Disease Service CAROLINE MONCADA I [facility] Oct 14, 2024 09:59 AM INFECTIOUS DISEASE OUTPATIENT NOTE: LOCAL TITLE: INFECTIOUS DISEASE CLINIC PHYSICIAN NOTE STANDARD TITLE: INFECTIOUS DISEASE OUTPATIENT NOTE DATE OF NOTE: OCT 14, 2024@09:59 ENTRY DATE: OCT 14, 2024@09:59:39 AUTHOR: KAMERON FLANAGAN COSIGNER: KYLEE ART URGENCY: STATUS: COMPLETED INFECTIOUS DISEASE CLINIC PHYSICIAN NOTE Has ADDENDA REASON FOR VISIT: ongoing management for HIV HPI: SUBJECTIVE: The patient was accompanied by his daughter at time of visit. Note pt was last seen by ID on February 19, 2024. At this time her reported falling multiple times and stated he was diagnosed with a broken back, but we were unable to verify this. He reported O2 dependence at home and ambulation with walker. Pt remains on Biktarvy with no issues or missed doses. Labs were done at this time including RPR, HIV-1 VL, and STI testing. As above, pt is accompanied by jayther at visit today. Reports he was unable to attend appointment in August d/t . Daughter reports several events since he saw us last including recurrent falls: he reports falling last night, and night before last. States he hit the ejector button on his wheelchair and well onto his behind. Pt also had a fall in July and broke several rib on his left (per [facility], he had short inpatient stay from 07/26-). Daughter also reports that pt broke his left humerus in March and had to go to rehab, and states that arm was injured further while in rehab. Pt also had a recent hospital stay at [facility]; was able to review records in [place]. This was from 08/19-08/23; pt presented with confusion and respiratory failure. He was diagnosed with new onset A-fib. Daughter reports that patient is currently in A-flutter and they are planning on cardioversion in the next months or so. (Note pt's daughter is nurse in correctional facility). She also stated that patient was treated for PNA, but no records of antibiotic treatment per hospital records. Regarding HIV treatment, pt reports he has not missed any doses of Biktarvy, but does report he will be out of medication soon. He reports no sexual activity and no STI symptoms including dysuria or penile discharge. HPI: 1993 HIV was diagnosed [id number]: AZT/3TC/EFV [id number]: TDF/FTC/EFV 2017-p: TAF/FTC/BIC History OI: disseminated Histoplasmosis in 1993 ROS: all systems were reviewed and is negative otherwise stated. Social history: lives with . 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 Lifelong nonsmoker. Denied alcohol use, sexually inactive OBJECTIVE Active Outpatient Medications (including Supplies): Active Outpatient Medications [...] BEDTIME Indication: FOR NERVE PAIN 9) GLUCOSE SENSOR DEXCOM G7 USE SENSOR DIRECTED NEEDED ACTIVE (S) Indication: FOR BLOOD SUGAR MONITORING 10) LIDOCAINE 5% 5IN X 6IN PATCH APPLY 2 PATCHES TO SKIN DAILY ACTIVE NEEDED FOR PAIN. (LEAVE ON 12 HOURS, THEN REMOVE FOR 12 HOURS) 11) METHOCARBAMOL 750MG TAB TAKE ONE TABLET BY MOUTH EVERY 6 ACTIVE HOURS NEEDED FOR MUSCLE SPASM 12) OLODATEROL/TIOTROP 2.5MCG/ACTUAT 60D INH INHALE 2 PUFFS BY ACTIVE MOUTH EVERY MORNING FOR BREATHING 13) PANTOPRAZOLE NA 40MG EC TAB TAKE ONE TABLET BY MOUTH DAILY ACTIVE TAKE ON AN EMPTY STOMACH. Indication: FOR STOMACH 14) SITAGLIPTIN (EQV-ZITUVIO) 100MG TAB TAKE ONE TABLET BY MOUTH ACTIVE DAILY -REPLACES ALOGLIPTIN. STORE IN ORIGINAL CONTAINER. OPENED BOTTLES MUST BE USED WITHIN 3 MONTHS Indication: FOR BLOOD SUGAR 15) TAMSULOSIN HCL 0.4MG CAP TAKE ONE CAPSULE BY MOUTH EVERY ACTIVE EVENING FOR PROSTATE 16) TRAMADOL HCL 50MG TAB TAKE ONE TABLET BY MOUTH EVERY MORNING ACTIVE AND TAKE ONE TABLET EVERY EVENING AND TAKE TWO TABLETS AT BEDTIME NEEDED (USE SPARINGLY. SUPPLY MUST LAST 30 DAYS. CAUSES IMPAIRMENT, RECOMMEND NOT TO DRIVE ON THIS MEDICATION.) Indication: FOR PAIN 17) VENLAFAXINE HCL 150MG 24HR SA CAP TAKE ONE CAPSULE BY MOUTH ACTIVE DAILY Indication: FOR CHRONIC PAIN Active Non-VA Medications Status 1) Non-VA ASPIRIN 81MG EC TAB 81MG MOUTH DAILY ACTIVE 2) Non-VA NALOXONE NASAL RESCUE 4MG SOLN,SPRAY,NASAL ONE ACTIVE NOSTRIL ONLY 3) Non-VA OXYGEN GAS 3 LITERS NASAL CANNULA DAILY ACTIVE 20 Total Medications Allergies: ENALAPRIL, FOSINOPRIL, LOPID, NIASPAN 500MG ER TABLET, ATENOLOL, HYDRALAZINE VASOTEC, SIMVASTATIN, AMLODIPINE BESYLATE 5MG TABLET, SEMAGLUTIDE Vitals: TEMP: 98.8 F [37.1 C] (10/14/2024 09:50) BP: 130/72 (10/14/2024 09:50) RESP: 20 (11/15/2023 14:13) PULSE:86 (10/14/2024 09:50) WT: 260.0 lb [117.93 kg] (10/14/2024 09:50) Pulse Ox: OCT 14, 2024@09:50 -- PULSE OXIMETRY: 89 (with supplemental O2 3.0 l/min % via NASAL CANNULA) Physical Exam: GEN: Cauasian male sitting in wheelchair; chronically ill appearing but in no acute distress HENT: Head: normocephalic, atraumatic. Eyes: EOMI. Nares: patent CVS: RRR with no murmurs RESP: diminished bilaterally MSK: tenderness noted upon gentle palpation to left shoulder/scapular area : deferred LYMPH: some slight edema to BLEs NEURO: home service demonstrator II-XII appear grossly intact SKIN: scaling skin seen globally DATA REVIEW Immunizations: IM - Immunizations ADMINISTERED Immunization Series Date Facility Reaction Info COVID-19 (MODERNA), MRNA, LNP-S,* 3 07/08/2021 [facility] COVID-19 (MODERNA), MRNA, LNP-S,* 2 10/11/2020 [facility] COVID-19 (MODERNA), MRNA, LNP-S,* 1 09/09/2020 [facility] COVID-19 (PFIZER), MRNA, LNP-S, * 1 08/08/2022 [facility]* FLU,3 YRS (HISTORICAL) 05/23/2016 [facility]* FLU,3 YRS (HISTORICAL) 05/27/2015 [facility]* FLU,3 YRS (HISTORICAL) 06/23/2014 [facility]* FLU,3 YRS (HISTORICAL) 05/11/2009 [facility]* FLU,3 YRS (HISTORICAL) 06/25/2007 [facility]* INFLUENZA A & B (HISTORICAL) No Site INFLUENZA A & B (HISTORICAL) 05/23/2016 [facility]* INFLUENZA A & B (HISTORICAL) 06/03/2015 [facility] INFLUENZA A & B (HISTORICAL) 05/27/2015 [facility]* INFLUENZA A & B (HISTORICAL) 06/23/2014 [facility]* INFLUENZA A & B (HISTORICAL) 06/03/2013 No Site INFLUENZA A & B (HISTORICAL) 06/12/2012 Work INFLUENZA A & B (HISTORICAL) Maria A [facility]* INFLUENZA A & B (HISTORICAL) 06/03/2010 Quirino Brasher* INFLUENZA A & B (HISTORICAL) 05/11/2009 [facility]* INFLUENZA A & B (HISTORICAL) 06/20/2008 Kameron * <C> INFLUENZA A & B (HISTORICAL) 06/25/2007 [facility]* INFLUENZA A & B (HISTORICAL) Local INFLUENZA A & B (HISTORICAL) 08/22/2005 [facility]* INFLUENZA A & B (HISTORICAL) At his job <C> INFLUENZA A & B (HISTORICAL) Local INFLUENZA A & B (HISTORICAL) QUIRINO Brasher* <C> INFLUENZA, HIGH-DOSE, QUADRIVALE* C 09/06/2023 [facility]* INFLUENZA, HIGH-DOSE, QUADRIVALE* 07/20/2023 [facility]* INFLUENZA, SPLIT VIRUS, QUADRIVA* 06/20/2022 [facility]* INFLUENZA, SPLIT VIRUS, QUADRIVA* 06/02/2020 [facility]* INFLUENZA, SPLIT VIRUS, TRIVALEN* 07/07/2019 [facility]* INFLUENZA, SPLIT VIRUS, TRIVALEN* 06/03/[address]* INFLUENZA, UNSPECIFIED FORMULATI* At his job <C> INFLUENZA, UNSPECIFIED FORMULATI* No Site <C> NOVEL [id number], ALL FOR* 08/03/2009 No Site <C> [id number] (HISTORICAL) 10/14/2013 [facility]* PNEUMOCOCCAL CONJUGATE PCV20, PO* 12/27/2022 [facility]* PNEUMOCOCCAL POLYSACCHARIDE PPV23 C 04/02/2018 [facility]* PNEUMOCOCCAL, UNSPECIFIED FORMUL* 06/13/2011 [facility]* PNEUMOCOCCAL, UNSPECIFIED FORMUL* 01/09/2006 [facility]* PNEUMOCOCCAL, UNSPECIFIED FORMUL* No Site <C> TD(ADULT) UNSPECIFIED FORMULATION Elsewhere TD(ADULT) UNSPECIFIED FORMULATION No Site TDAP 10/14/2013 [facility]* TDAP (HISTORICAL) 10/14/2013 [facility]* ZOSTER RECOMBINANT 1 03/27/2023 [facility]* Labs: 03/20/2024: RPR: non reactive % CD4 Pos. lymph: 29.3L % CD8 Pos. lymph: 33.9 CD 4/CD 8 Ratio: 0.86 Abs CD4 helper: 410 Abs CD8 suppressor: 475 HIV-1 VL (copies/ml): not detected Chlamydia trachomatis DNA: not detected Neisseria gonorrhoeae DNA: not detected Imaging: n/a Microbiology: n/a ASSESSMENT: 1. HIV, excellent virologic (VL not detected in March 2024) and immunologic (CD4= 410 in March 2024) response to ART, tolerating Biktarvy well 2. seborrheic dermatitis rx clotrimazole cream 3. Home oxygen therapy. 4. Obesity BMI=36.3 Lost 20 pounds since March 2023; weight stable now 5. DM with hyperglycemia A1c 7.3% in November 2023 6. Recurrent falls with injuries 7. New onset A-fib/A-flutter Not appreciable upon exam today; currently on aspirin, but no anticoagulation 8. Health maintenance 1). Lipid tchol 175/HDL34/EAU887/TG158 , A1c=7.3% in November 2023 ASCVD % 2). Hepatitis C screening 2011 3). STI screening RPR neg in March 2024, urine GC/C negative in March 2024 4). DEXA: osteopenia in 2019, on vitamin D 5). Immunization: a. HepA nonimmune 2009 HepB nonimmune 2009 [low risk] b. PCV20 completed in 2022 c. Flu, COVID19 d. Meningococcal: declined e. Shingrix: 2nd dose due, however, he firmly declined, for (the first dose) made me sick as dog f. Td/Tdap: due now. Declined g. HPV: NA Plan 1. continue Biktarvy; will send refill today. 2. continue monitoring antiretroviral adverse reactions 3. Will check VL, RPR, CD4 count and urine chlamydia/gonorrhea today. 4. Pt encouraged to follow up with providers: primary care, cardiology, etc. Follow up: 6 months Pt's history, interview, exam, and above plan discussed with attenting physician, Dr. Art. Kameron Flanagan DO Infectious Disease Fellow, PGY-4 /angie/ KAMERON FLANAGAN Signed: 10/14/2024 14:51 /angie/ KYLEE ART MD ID ATTENDING Cosigned: 10/15/2024 08:26 10/14/2024 ADDENDUM STATUS: COMPLETED I have seen and examined the patient with Dr. Flanagan. I agree with his history, findings, assessment, and recommendations. We spent a total of 35 minutes, reviewing history, performing an exam and evaluation, entering clinical information EHR, interpreting result, counseling patient/family/caregiver, reviewing x-rays/mri/labs, ordering meds/test/procedures, referring and communicating with consulting health animal care giver, and care coordination. /angie/ KYLEE ART MD ID ATTENDING Signed: 10/14/2024 17:53 10/23/2024 ADDENDUM STATUS: COMPLETED All medications and treatment plan was discussed with prior to exiting clinic by provider. Chart check review completed. RTC per order. Chart Check entered in [email or web address] for provider review /angie/ EMILEE HEARD RN, BSN, [facility] Fire Control Technician B [facility] Signed: 10/23/2024 09:19 KAMERON FLANAGAN-[facility] Oct 14, 2024 09:54 AM NURSING OUTPATIENT NOTE: LOCAL TITLE: [facility] MEDICINE CLINIC INTAKE NOTE STANDARD TITLE: NURSING OUTPATIENT NOTE DATE OF NOTE: OCT 14, 2024@09:54 ENTRY DATE: OCT 14, 2024@09:54:25 AUTHOR: FRANK HERNANDEZ EXP COSIGNER: URGENCY: STATUS: COMPLETED Reason for visit/chief complaint: B/P: 130/72 (10/14/2024 09:50) P: 86 (10/14/2024 09:50) R: 20 (11/15/2023 14:13) T: 98.8 F [37.1 C] (10/14/2024 09:50) HT: 71 in [180.3 cm] (11/15/2023 12:52) WT: 260.0 lb [117.93 kg] (10/14/2024 09:50) Are you having any pain or recurrent pain in the last several weeks/months? No Location: Duration: Characteristics: Pain education material offered to patient (for pain > 3) No Risk factors history: Hypertension Yes BP Rechecked Yes Provider notified of BP greater of 140/90 Comments: Patient notified drafter civil available upon request for any examinations/procedures. The [...] Expires: 12/28/24 Refills: 1 Status: ACTIVE BIKTARVY 50/200/25 TAB Directions: TAKE 1 TABLET BY MOUTH DAILY INFECTION Quantity: 30 for 30 days Issued: 08/11/24 Filled: 08/24/24 Expires: 08/12/25 Refills: 1 Status: ACTIVE BUMETANIDE 2MG TAB Directions: TAKE ONE TABLET BY MOUTH DAILY FOR FLUID (TAKE ADDITIONAL EVENING DOSE FOR 3LB WEIGHT GAIN IN 24 HOURS OR 5LB WEIGHT GAIN IN 1 WEEK) Quantity: 120 for 90 days Issued: 09/12/24 Filled: 10/17/24 Expires: 09/13/25 Refills: 3 Status: ACTIVE CHOLECALCIF 25MCG (D3-1,000UNIT) TAB Directions: TAKE ONE TABLET BY MOUTH DAILY FOR VITAMIN D SUPPLEMENT Quantity: 100 for 90 days Issued: 09/12/24 Filled: 10/30/24 Expires: 09/13/25 Refills: 3 Status: ACTIVE FERROUS SULFATE 324MG EC TAB [...] 240 for 30 days Issued: 09/01/24 Filled: 10/07/24 Expires: 09/02/25 Refills: 1 Status: ACTIVE LIDOCAINE 5% 5IN X 6IN PATCH Directions: APPLY 2 PATCHES TO SKIN DAILY NEEDED FOR PAIN. (LEAVE ON 12 HOURS, THEN REMOVE FOR 12 HOURS) Quantity: 30 for 30 days Issued: 03/04/24 Filled: 10/14/24 Expires: 03/05/25 Refills: 8 Status: ACTIVE METHOCARBAMOL 750MG TAB Directions: TAKE ONE TABLET BY MOUTH EVERY 6 HOURS NEEDED FOR MUSCLE SPASM Quantity: 120 for 30 days Issued: 06/17/24 Filled: 10/07/24 Expires: 06/18/25 Refills: 2 Status: ACTIVE OLODATEROL/TIOTROP 2.5MCG/ACTUAT 60D INH Directions: [...] 120 for 30 days Issued: 09/01/24 Filled: 10/07/24 Expires: 03/04/25 Refills: 1 Status: ACTIVE VENLAFAXINE HCL 150MG 24HR SA CAP Directions: TAKE ONE CAPSULE BY MOUTH DAILY FOR CHRONIC PAIN Quantity: 90 for 90 days Issued: 09/12/24 Filled: 09/28/24 Expires: 09/13/25 Refills: 3 Status: ACTIVE GLUCOSE SENSOR DEXCOM G7 Directions: USE SENSOR DIRECTED NEEDED FOR BLOOD SUGAR MONITORING Quantity: 9 for 90 days Issued: 02/13/24 Filled: 10/31/24 Expires: 02/13/25 Refills: 0 Status: ACTIVE/SUSP No remote medications found. PENDING OUTPATIENT MEDICATONS (LOCAL/REMOTE): No local medications found. No remote medications found. ACTIVE NONVA MEDICATIONS (LOCAL): ASPIRIN 81MG EC TAB Directions: 81MG MOUTH DAILY Status: ACTIVE NALOXONE NASAL RESCUE 4MG SOLN,SPRAY,PHIL Directions: ONE NOSTRIL ONLY Status: ACTIVE OXYGEN GAS Directions: 3 LITERS NASAL CANNULA DAILY Status: ACTIVE OUTPATIENT MEDICATIONS (LOCAL)WITHIN 90 DAYS: GLUCOSE SENSOR DEXCOM G7 Directions: USE SENSOR DIRECTED NEEDED FOR BLOOD SUGAR MONITORING Quantity: 9 for 90 days Issued: 02/13/24 Filled: 10/31/24 Expires: 02/13/25 Refills: 0 Status: ACTIVE/SUSP GLUCOSE SENSOR DEXCOM G6 Directions: USE SENSOR DIRECTED DIRECTED NEEDED Quantity: 9 for 90 days Issued: 07/20/23 Filled: 02/21/24 Expires: 07/20/24 Refills: 1 Status: METOPROLOL TARTRATE 100MG TAB Directions: TAKE ONE TABLET BY MOUTH TWICE A DAY FOR BLOOD PRESSURE/HEART Quantity: 180 for 90 days Issued: 09/26/23 Filled: 08/11/24 Expires: 09/26/24 Refills: 1 Status: DISCONTINUED OUTPATIENT MEDICATIONS (LOCAL) WITHIN 90 DAYS: GLUCOSE SENSOR DEXCOM G7 Directions: USE SENSOR DIRECTED NEEDED FOR BLOOD SUGAR MONITORING Quantity: 9 for 90 days Issued: 02/13/24 Filled: 10/31/24 Expires: 02/13/25 Refills: 0 Status: ACTIVE/SUSP ALBUTEROL 90MCG (CFC-F) 200D ORAL [...] 07/21/23 Expires: 07/20/24 Refills: 3 Status: DISCONTINUED GLUCOSE 4GM CHEW TAB Directions: CHEW 4 TABLETS (16 GRAMS OF CARBS) BY MOUTH DIRECTED NEEDED FOR LOW BLOOD SUGAR Quantity: 60 for 90 days Issued: 02/08/24 Filled: 02/09/24 Expires: 02/08/25 Refills: 3 Status: DISCONTINUED INSULIN CONC REG HUM 500 UNT/ML KWIKPEN Directions: INJECT 70 UNITS UNDER THE SKIN EVERY MORNING AND INJECT 60 UNITS EVERY EVENING FOR BLOOD SUGAR -KEEP REFRIGERATED UNTIL PEN IN USE, ONCE IN USE DISCARD AFTER 28 DAYS Quantity: 8 for 90 days Issued: 07/20/23 Filled: 12/28/23 Expires: 07/20/24 Refills: 2 Status: DISCONTINUED INSULIN CONC REG HUM 500 UNT/ML KWIKPEN Directions: INJECT 65 UNITS UNDER THE SKIN TWICE A DAY BEFORE MEALS FOR BLOOD SUGAR -KEEP REFRIGERATED UNTIL PEN IN USE, ONCE IN USE DISCARD AFTER 28 DAYS Quantity: 8 for 90 days Issued: 02/08/24 Filled: 02/09/24 Expires: 02/08/25 Refills: 3 Status: DISCONTINUED LOSARTAN 50MG TAB Directions: TAKE [...] listed on CPRS medication tab outpatient section. Yes *Printed copy of medication list provided to patient and reviewed. Yes *Explained to the patient the importance of keeping providers updated on medication changes and to carrying an updated list of medication at all times in case of an emergency situation. Yes /angie/ Jimena Hernandez Letter Stamping Machine Operator Signed: 10/14/2024 09:56 [facility]
--- OUTSIDE RECORDS SUMMARY | 2024-10-14 05:32 | XMS_ITS | Encounter Summary ---
Author Name [place] Address [address] [place] [address] Care Team Providers Care Treatment Manager Name Role Phone LAURY KENYON Primary [...] ON [employer] Jun 03, 2017 [id number] ROXI WINKLER PATIENT HUMANA [facility] (WNR) MEDICARE ADVANTAGE [facility] (WNR) Sep 03, 2019 [id number] ROXI WINKLER JR PATIENT HUMANA [facility] (WNR) MEDICARE ADVANTAGE [facility] (WNR) Sep 03, 2019 [id number] ROXI WINKLERA MCR (WNR) MEDICARE ADVANTAGE HUMAN A INSUR ANCE COM Apr 04, 2019 [id number] ROXI WINKLER HUMANA MCR (WNR) MEDICARE ADVANTAGE MCR (WNR) Apr 03, 2019 [id number] ROXI WINKLER HUMANA MCR (WNR) MEDICARE ADVANTAGE MCR (WNR) Apr 03, 2019 [id number] ROXI WINKLERA MCR (WNR) MEDICARE ADVANTAGE MCR (WNR) Apr 03, 2019 [id number] ROXI WINKLER JR PHARMACY PRESCRIPT ION NONE Jun 03, 2017 NONE [id number] ROXI WINKLER MEDICARE PART D (WNR) MEDICARE (M) PART D Sep 03, 2023 PART D [id number] ROXI WINKLER JR PATIENT Selected Encounter This section includes the information on record at [place] for the Encounter. Date/Time Encounter Type Encounter Description Reason Pro vider Source Oct 14, 2024 09:32 AM Outpatient Encounter ADMIN PAT ACTIVTIES (MASNONCT) IHE Encounter Template Text not used by [place] Plan of Treatment: Future Appointments (+ 6 months) and Future Tests (+/- 45 days) The Plan of Treatment section includes future care activities for the patient from all [place] treatmentfacilities. This section includes future appointments and future orders which are active, pending or scheduled. Future Appointments This section includes appointments that were scheduled to occur 6 months from the date of the Encounter, up to a maximum of 20 appointments. The data comes from all [place] treatment facilities. Appointment Date/Time Appointment Type Appointme nt Facility Name Oct 17, 2024 04:00 PM [facility] Nov 18, 2024 08:00 AM AMBULATORY - NONE STEPHEN Barnes [facility] Nov 21, 2024 09:00 AM AMBULATORY - MEDICINE [facility] Nov 21, 2024 11:20 AM AMBULATORY - MEDICINE [facility]O [facility] Dec 11, 2024 10:00 AM AMBULATORY - SURGERY [place] Dec 23, 2024 01:30 PM AMBULATORY - SURGERY TAWNY FREDO [facility] January 06, 2025 10:30 AM AMBULATORY - REHAB MEDICIN E [facility] January 06, 2025 02:00 PM AMBULATORY - SURGERY TA[facility]NY [facility] January 30, 2025 11:00 AM AMBULATORY - NONE [place] [facility] Feb 17, 2025 02:00 PM AMBULATORY - SURGERY [facility] Lab Results: +/- 30 days of the encounter This section includes the Chemistry and Hematology Lab Results on record with [place] for the patient. Radiology Reports and Pathology Reports are provided separately, in subsequent sections. Lab Results This section contains the Chemistry/Hematology Results that were resulted 30 days before or 30 daysafter the date of the Encounter. Date/Time Source Result Type Result - Unit Interpretation Reference Range Specimen Type Comment Oct 17, 2024 03:32 PM [facility] GLYCOHEMOGLOBIN BLOOD Specimen Type: BLOOD Comment: [place] guidelines for A1c interpretation: Glycemic control targets are based on Shared Decision Making between clinicians and patients. Criteria used to establish an A1c target recommendation can be found at https://www.md.g ov/qualityandpat ientsafety/ and include the use of [...] and 9.27. Ref: https://ngsp.org /CAPdata.asp. The in-house Apt[employer]-Motopia D-100 analyzer has a historical CV <= 2%. Contact the laboratory for further performance characteristics of this assay. Ordering Provider: LAURY KENYON Report Released Date/Time: Oct 15, 2024 04:37 PM Reporting Lab: [address] [address] Performing Lab: [address] [address] GLYCOHEMOGLOBIN 7.3 H 4.4-5.6 Oct 17, 2024 03:32 PM [facility] 25-OH VITAMIN D SERUM Specime n [...] Oct 15, 2024 04:37 PM Reporting Lab: [address] [address] Performing Lab: [address] [address] 25-OH VITAMIN D 28.3 ng/mL 20.0-50.0 Oct 17, 2024 03:32 PM [facility] BNP ([employer]) PLASMA Specimen Type: PLASMA Comment: BNP results less than or equal to 100 pg/ml are apprenticeship training representative of normal values in patients without CHF. BNP results greater than 100 pg/ml are considered abnormal and suggestive of CHF. Higher BNP concentrations in the first 72 hours after Acute Coronary Syndrome are associated with an increased risk of , myocardial infarction and CHF. Ordering Provider: LAURY KENYON Report Released Date/Time: Oct 15, 2024 04:37 PM Reporting Lab: [address] [address] Performing Lab: [address] [address] BNP (WOODS) 101 pg/mL H 0-100 Oct 14, 2024 10:53 AM [facility] HIV-1 VIRAL LOAD (PCR) PLASMA Speci men Type: PLASMA Comment: HIV-1 RNA RT-PCR (HIV-1 VIRAL LOAD (PCR)) assay is performed by the [place] This test does not rule out the presence of HIV-1 at less than 20 copies/mL. Quantitative range is 20 (1.30 Log (Copies/mL)) - 10,000,000 (7.00 Log (Copies/mL)) copies/mL. This test should only be used for patients with documented HIV-1infection. The [facility] has verified the performance characteristics of this test. This test is FDA approved. Ordering Provider: HILARY FLANAGAN Report Released Date/Time: Oct 14, 2024 10:21 AM Reporting Lab: [facility] [address] [facility] [address] Performing Lab: [address] [address] .HIV-1 VIRAL LOAD (COPIES/ML) Not Detected Not Detected Oct 14, 2024 10:53 AM [facility] CD4/CD8 RATIO PROFILE BLOOD Specim en Type: BLOOD No comment entered. Ordering Provider: HILARY FLANAGAN Report Released Date/Time: Oct 14, 2024 10:21 AM Reporting Lab: [facility] [address] [facility] [address] Performing Lab: [facility] [address] [place] [phone] .% CD 4 Pos. Lymph. 29.9 L 30.8-58.5 .% CD 8 Pos. Lymph. 37.8 H 12.0-35.5 .CD 4 / CD 8 Ratio 0.79 L 0.92-3.72 .Absolute CD 4 [place] 299 /uL L 359-1519 .Absolute CD 8 Suppressor 378 /uL 109-89 7 Social History: Smoking Status (Most current) and Tobacco Use (All prior to encounter date) This section includes the most current, and the historical, smoking and tobacco- related health factors from the [place] facility where the Encounter took place. Current Smoking Status This section includes the most current smoking, or tobacco-related health factor, from the [place] facility where the Encounter took place. Date/Time Current Smoking Status Comment Anita bartholomew May 05, 2016 01:12 AM NON-TOBACCO USE INPATIENT [facility] Tobacco Use History This section includes a history of the smoking, or tobacco-related health factors, that were collected on or before the date of the Encounter. The data comes from the [place] facility where the Encounter took place. Date/Time Smoking Status/Tobacco Use Comment Yael grajeda Nov 24, 2015 04:48 PM NON-TOBACCO USE INPATIENT [facility] Oct 01, 2014 07:15 PM NON-TOBACCO USE INPATIENT [facility] Apr 10, 2005 01:20 PM HF V9 LIFETIME NON-SMOKER [facility] Nov 24, 2003 03:11 PM HF V9 LIFETIME NON-SMOKER [facility] Oct 07, 2002 02:26 PM HF V9 LIFETIME NON-SMOKER [facility] Advance Directives: All historical and current Section Date Range: From patient's date of to the date document was created. This section includes ALL of a patient's completed or amended [place] Advance and Rescinded Directives. The entries below indicate that a directive exists for the patient, but an actual copy is not included with this document. The data comes from all [place] facilities. Date Advance Directives Provider Source Sep 25, 2024 ADVANCE DIRECTIVE DISCUSSION ANTHONY IRVING [facility] Encounter Notes: All associated encounter notes This section contains the clinical notes associated to the Encounter. Date/Time Encounter Note(s) Provider Source Oct 14, 2024 09:32 AM ADMINISTRATIVE NOT E: LOCAL TITLE: CLERICAL/ADMIN NOTE STANDARD TITLE: ADMINISTRATIVE NOTE DATE OF NOTE: OCT 14, 2024@09:32 ENTRY DATE: OCT 14, 2024@09:32:22 AUTHOR: DAMIAN STORY EXP COSIGNER: URGENCY: STATUS: COMPLETED Received fax from [facility]. Gave to pcp. /angie/ DAMIAN STORY ADVANCED DIRECTOR OF GRADUATE MEDICAL EDUCATION Signed: 10/14/2024 09:32 [facility]
--- OUTSIDE RECORDS SUMMARY | 2024-10-14 06:00 | XMS_ITS | Encounter Summary ---
Author Name [facility] [place] Address [address] [place] [address] Care Team Providers Care Sharemilker Name Role Phone LAURY KENYON Primary Care [...] Name Patient's Relationship to Policy Pascual HUMANA CLAIMS/[place] MEDICAL PREFERRED PROVIDER ORGANIZAT ION (PPO) ARELIS ON [employer] Jun 03, 2017 [id number] ROXI WINKLER PATIENT HUMANA [facility] (WNR) MEDICARE ADVANTAGE [facility] (WN) Sep 03, 2019 [id number] ROXI WINKLER JR PATIENT HUMANA [facility] (WNR) MEDICARE ADVANTAGE [facility] (WN) Sep 03, 2019 [id number] ROXI WINKLER HUMANA MCR (WNR) MEDICARE ADVANTAGE HUMAN A INSUR ARIN COM Apr 04, 2019 [id number] ROXI WINKLERA MCR (WNR) MEDICARE ADVANTAGE [facility] (WNR) Apr 03, 2019 [id number] ROXI WINKLERA MCR (WNR) MEDICARE ADVANTAGE MCR (WNR) Apr 03, 2019 [id number] ROXI WINKLER [employer]MANA MCR (WNR) MEDICARE ADVANTAGE MCR (WNR) Apr 03, 2019 [id number] ROXI WINKLER JR PHARMACY PRESCRIPT ION NONE Jun 03, 2017 NONE [id number] ROXI WINKLER MEDICARE PART D (WNR) MEDICARE (M) PART D Sep 03, 2023 PART D [id number] ROXI WINKLER JR PATIENT Selected Encounter This section includes the information on record at [place] for the Encounter. Date/Time Encounter Type Encounter Description Reason Provider Source Oct 14, 2024 10:00 AM MEASURE BLOOD OXYGEN LEVEL RESPIRATORY THERAPY ICD-10-CM J44.9 Chronic obstructive pulmonary disease, unspecified NITO PRO Adela Encounter Template Text not used by [place] Assessments - Encounter Diagnoses This section includes the primary and secondary diagnoses documented for the Encounter. Date/Time Primary/Secondary Diagnosis Diagnosis Name Provider Source Oct 14, 2024 11:09 AM PRIMARY Chronic obstructive pulmonary disease, unspecified NITO PRO- D [facility] Plan of Treatment: Future Appointments (+ 6 months) and Future Tests (+/- 45 days) The Plan of Treatment section includes future care activities for the patient from all [place] treatmentfacilities. This section includes future appointments and future orders which are active, pending or scheduled. Future Appointments This section includes appointments that were scheduled to occur 6 months from the date of the Encounter, up to a maximum of 20 appointments. The data comes from all [place] treatment facilities. Appointment Date/Time Appointment Type Appointme nt Facility Name Oct 17, 2024 04:00 PM AMBULATORY - MEDICINE [facility]O GALLEGOS [facility] Nov 18, 2024 08:00 AM AMBULATORY - NONE [place] [facility] Nov 21, 2024 09:00 AM AMBULATORY - MEDICINE [place] GALLE[facility]OS [facility] Nov 21, 2024 11:20 AM AMBULATORY - MEDICINE FORT[place]ATO EL [facility] Dec 11, 2024 10:00 AM AMBULATORY - SURGERY [place] ZACH [facility] Dec 23, 2024 01:30 PM [facility] January 06, 2025 10:30 AM [facility] January 06, 2025 02:00 PM [facility] January 30, 2025 11:00 AM AMBULATORY - NONE STEPHEN Barnes [facility] Feb 17, 2025 02:00 PM AMBULATORY - SURGERY [facility]WNY [facility] Lab Results: +/- 30 days of the encounter This section includes the Chemistry and Hematology Lab Results on record with [place] for the patient. Radiology Reports and Pathology Reports are provided separately, in subsequent sections. Lab Results This section contains the Chemistry/Hematology Results that were resulted 30 days before or 30 daysafter the date of the Encounter. Date/Time Source Result Type Result - Unit Interpretation Reference Range Specimen Type Comment Oct 17, 2024 03:32 PM [facility] GLYCOHEMOGLOBIN BLOOD Specimen Type: BLOOD Comment: [facility] guidelines for A1c interpretation: Glycemic control targets are based on Shared Decision Making between clinicians and patients. Criteria used to establish an A1c target recommendation can be found at https://www.sc.g ov/qualityandpat ientsafety/ and include the use of [...] and 9.27. Ref: https://ngsp.org /CAPdata.asp. The in-house [employer]-Uniphore D-100 analyzer has a historical CV <= 2%. Contact the laboratory for further performance characteristics of this assay. Ordering Provider: LAURY KENYON Report Released Date/Time: Oct 15, 2024 04:37 PM Reporting Lab: [address] [address] Performing Lab: [address] [address] GLYCOHEMOGLOBIN 7.3 H 4.4-5.6 Oct 17, 2024 03:32 PM [facility] 25-OH VITAMIN D SERUM Specime [...] Oct 15, 2024 04:37 PM Reporting Lab: [address] [address] Performing Lab: [address] [address] 25-OH VITAMIN D 28.3 ng/mL 20.0-50.0 Oct 17, 2024 03:32 PM [facility] BNP ([place]) PLASMA Specimen Type: PLASMA Comment: BNP results less than or equal to 100 pg/ml are warehouse representative of normal values in patients without CHF. BNP results greater than 100 pg/ml are considered abnormal and suggestive of CHF. Higher BNP concentrations in the first 72 hours after Acute Coronary Syndrome are associated with an increased risk of , myocardial infarction and CHF. Ordering Provider: LAURY KENYON Report Released Date/Time: Oct 15, 2024 04:37 PM Reporting Lab: [address] [address] Performing Lab: [address] [address] BNP (WOODS) 101 pg/mL H 0-100 Oct 14, 2024 10:53 AM [facility] HIV-1 VIRAL LOAD (PCR) PLASMA Speci men Type: PLASMA Comment: HIV-1 RNA RT-PCR (HIV-1 VIRAL LOAD (PCR)) assay is performed by the [place] This test does not rule out the presence of HIV-1 at less than 20 copies/mL. Quantitative range is 20 (1.30 Log (Copies/mL)) - 10,000,000 (7.00 Log (Copies/mL)) copies/mL. This test should only be used for patients with documented HIV-1infection. The [facility] has verified the performance characteristics of this test. This test is FDA approved. Ordering Provider: HILARY FLANAGAN Report Released Date/Time: Oct 14, 2024 10:21 AM Reporting Lab: [address] [address] Performing Lab: [address] [address] .HIV-1 VIRAL LOAD (COPIES/ML) Not Detected Not Detected Oct 14, 2024 10:53 AM [facility] CD4/CD8 RATIO PROFILE BLOOD Specim en Type: BLOOD No comment entered. Ordering Provider: HILARY FLANAGAN Report Released Date/Time: Oct 14, 2024 10:21 AM Reporting Lab: [address] [address] Performing Lab: [address] [address] .% CD 4 Pos. Lymph. 29.9 L 30.8-58.5 .% CD 8 Pos. Lymph. 37.8 H 12.0-35.5 .CD 4 / CD 8 Ratio 0.79 L 0.92-3.72 .Absolute CD 4 [place] 299 /uL L 359-1519 .Absolute CD 8 Suppressor 378 /uL 109-89 7 Social History: Smoking Status (Most current) and Tobacco Use (All prior to encounter date) This section includes the most current, and the historical, smoking and tobacco- related health factors from the [place] facility where the Encounter took place. Current Smoking Status This section includes the most current smoking, or tobacco-related health factor, from the [place] facility where the Encounter took place. Date/Time Current Smoking Status Comment Facil itfrench May 05, 2016 01:12 AM NON-TOBACCO USE INPATIENT [facility] Tobacco Use History This section includes a history of the smoking, or tobacco-related health factors, that were collected on or before the date of the Encounter. The data comes from the [place] facility where the Encounter took place. Date/Time Smoking Status/Tobacco Use Comment F acility Nov 24, 2015 04:48 PM NON-TOBACCO USE INPATIENT [facility] Oct 01, 2014 07:15 PM NON-TOBACCO USE INPATIENT [facility] Apr 10, 2005 01:20 PM HF V9 LIFETIME NON-SMOKER [facility] Nov 24, 2003 03:11 PM HF V9 LIFETIME NON-SMOKER [facility] Oct 07, 2002 02:26 PM HF V9 LIFETIME NON-SMOKER [facility] Advance Directives: All historical and current Section Date Range: From patient's date of to the date document was created. This section includes ALL of a patient's completed or amended [place] Advance and Rescinded Directives. The entries below indicate that a directive exists for the patient, but an actual copy is not included with this document. The data comes from all [place] facilities. Date Advance Directives Provider Source Sep 25, 2024 ADVANCE DIRECTIVE DISCUSSION ANTHONY IRVING [facility] Encounter Notes: All associated encounter notes This section contains the clinical notes associated to the Encounter. Date/Time Encounter Note(s) Provider Source Oct 14, 2024 11:02 AM PULMONARY HOME HEA LT CONSULT: LOCAL TITLE: HOME OXYGEN CONSULT RESPONSE STANDARD TITLE: PULMONARY HOME HEALTH CONSULT DATE OF NOTE: OCT 14, 2024@11:02 ENTRY DATE: OCT 14, 2024@11:03:03 AUTHOR: NITO PRO EXP COSIGNER: CODY SURESH URGENCY: STATUS: COMPLETED Diagnosis: Chronic Hypoxemic Respiratory Failure Estimated length of need (# of months)-(99 = lifetime): 1 Year SMOKING HISTORY: Current Smoker - No Patient provided verbal and written information related to: Yes - Hazards associated with smoking and oxygen Yes - Oxygen safety concerns and issues Yes - Contact info, [place] Home Oxygen Program and Home Oxygen Vendor (Contact numbers provided) Yes - Patient or surrogate/guardian viewed Home Oxygen Safety video. Yes - Patient or surrogate/guardian signed Home Oxygen Safety IMED consent form. RESULTS OF PULSE OXIMETRY OR ARTERIAL BLOOD GASES Room Air at Rest: 84% Room Air with Exertion: 83% Distance:NAChair Exercises Time:NA Prescribed liter flow: 3LPM Other: 3 LPM Pulse Dose @ Rest; 5-6 LPM Pulse Dose on exertion Physician/Provider Performing Test: Morgan Pro Title: CATHETER BUILDER PRESCRIPTION FOR HOME OXYGEN LPM Continuous: 3 LPM During Exertion: 5 LPM @ Night: 3 LPM PRN: Level of activity: Primary Delivery System: Compressed gas High flow concentrator Shoulder POC #of back up batteries: 2 Additional Items: Tank Size E Quantity per Month 3 Back Ups Oxysafe valve Nasal cannula Optional Items: Humidification Cart Shoulder bag Vendor satisfaction: Yes Cleans filter weekly: Yes Delivery Location: Home Requires recertification of prescription and follow-up appointment WITHIN 12 months Date of last visit: October 14, 2024 Expiration Date: October 31, 2025 Respiratory Therapist Assessment: Annual, To include pulse oximetry and vitals /angie/ NITO PRO Respiratory Therapist Signed: 10/14/2024 11:09 /angie/ CODY SURESH M.D. ATTENDING PHYSICIAN Cosigned: 10/14/2024 12:54 NITO PRO-[facility]
--- OUTSIDE RECORDS SUMMARY | 2024-10-15 08:00 | XMS_ITS | Encounter Summary ---
Author Name [facility] [place] [facility] [place] [facility] [place] Address [address] [place] [address] Care Team Providers Care Shirt Ironer Name Role Phone REBECCA KENYON Primary Care Provider Unavailab PARRIS Alex Unavailable Unavailable RICK FREEMAN Unavailable Unavailable [...] Name Patient's Relationship to Policy P[place]ual HUMANA CLAIMS/[place] MEDICAL PREFERRED PROVIDER ORGANIZAT ION (PPO) [employer] Jun 03, 2017 [id number] ROXI WINKLER PATIENT HUMANA [facility] (WNR) MEDICARE ADVANTAGE [facility] (WNR) Sep 03, 2019 [id number] ROXI WINKLER JR PATIENT HUMANA [facility] (WNR) MEDICARE ADVANTAGE [facility] (WNR) Sep 03, 2019 [id number] [phone] ROXI WINKLERA MCR (WNR) MEDICARE ADVANTAGE HUMAN A INSUR ANCE COM Apr 04, 2019 [id number] ROXI WINKLERA MCR (WNR) MEDICARE ADVANTAGE [facility] (WNR) Apr 03, 2019 [id number] ROXI WINKLERA MCR (WNR) MEDICARE ADVANTAGE [facility] (WNR) Apr 03, 2019 [id number] ROXI WINKLERA MCR (WNR) MEDICARE ADVANTAGE [facility] (WNR) Apr 03, 2019 [id number] ROXI WINKLER JR PHARMACY PRESCRIPT ION NONE Jun 03, 2017 NONE [id number] ROXI WINKLER MEDICARE PART D (WNR) MEDICARE (M) PART D Sep 03, 2023 PART D [id number] [phone] CATHI ROXI MEDINA PATIENT Selected Encounter This section includes the information on record at [place] for the Encounter. Date/Time Encounter Type Encounter Description Reason Provider Source Oct 15, 2024 12:00 PM IMMUNIZATION ADMIN [facility] Nursing (RN / LP) ICD-10-CM J44.9 Chronic obstructive pulmonary disease, unspecified ENMA PADILLA Adela Encounter Template Text not used by [place] Assessments - Encounter Diagnoses This section includes the primary and secondary diagnoses documented for the Encounter. Date/Time Primary/Secondary Diagnosis Diagnosis Name Provider Source Oct 15, 2024 04:02 PM PRIMARY Chronic obstructive pulmonary disease, unspecified PARRIS PADILLA [facility] Oct 15, 2024 04:02 PM SECONDARY Encounter for immunization PARRIS PADILLA [facility] Oct 15, 2024 04:02 PM SECONDARY Essential (primary) hypertension PARRIS PADILLA [facility] Oct 15, 2024 04:02 PM SECONDARY Type 2 diabetes mellitus without complications PARRIS PADILLA [facility] Plan of Treatment: Future Appointments (+ 6 months) and Future Tests (+/- 45 days) The Plan of Treatment section includes future care activities for the patient from all [place] treatmentfacilities. This section includes future appointments and future orders which are active, pending or scheduled. Future Appointments This section includes appointments that were scheduled to occur 6 months from the date of the Encounter, up to a maximum of 20 appointments. The data comes from all [place] treatment facilities. Appointment Date/Time Appointment Type Appointme nt Facility Name Oct 17, 2024 04:00 PM AMBULATORY - MEDICINE [facility] Nov 18, 2024 08:00 AM AMBULATORY - NONE [facility] Nov 21, 2024 09:00 AM AMBULATORY - MEDICINE [facility] Nov 21, 2024 11:20 AM [facility] - [facility] Dec 11, 2024 10:00 AM [facility]ORY - [facility] Dec 23, 2024 01:30 PM [facility]ORY - SURGERY [facility] January 06, 2025 10:30 AM AMBULATORY - REHAB MEDICIN [facility] January 06, 2025 02:00 PM [facility] January 30, 2025 11:00 AM [facility] Feb 17, 2025 02:00 PM [facility]ORY - SURGERY [facility] Apr 14, 2025 10:30 AM AMBULATORY - MEDICINE [facility] Lab Results: +/- 30 days of the encounter This section includes the Chemistry and Hematology Lab Results on record with [place] for the patient. Radiology Reports and Pathology Reports are provided separately, in subsequent sections. Lab Results This section contains the Chemistry/Hematology Results that were resulted 30 days before or 30 daysafter the date of the Encounter. Date/Time Source Result Type Result - Unit Interpretation Reference Range Specimen Type Comment Oct 17, 2024 03:32 PM [facility] GLYCOHEMOGLOBIN BLOOD Specimen Type: BLOOD Comment: [place] guidelines for A1c interpretation: Glycemic control targets are based on Shared Decision Making between clinicians and patients. Criteria used to establish an A1c target recommendation can be found at https://www.wi.g ov/qualityandpat ientsafety/ and include the use of [...] and 9.27. Ref: https://ngsp.org /CAPdata.asp. The in-house Watson Brown-Mindie D-100 analyzer has a historical CV <= 2%. Contact the laboratory for further performance characteristics of this assay. Ordering Provider: REBECCA KENYON Report Released Date/Time: Oct 15, 2024 04:37 PM Reporting Lab: [address] [address] Performing Lab: [address] [address] GLYCOHEMOGLOBIN 7.3 H 4.4-5.6 Oct 17, 2024 03:32 PM [facility] 25-OH VITAMIN D SERUM Specime n Type: SERUM Comment: The National Institutes of Health (NIH) recommendations state: <12 ng/mL - Deficient 20 - 50 ng/mL - Optimal Levels - adequate for most people. >50 ng/mL - Increased risk of hypercalciuria/other health problems - clinical correlation is required. These reference ranges represent clinical decision values rather than population-based reference values. Ordering Provider: REBECCA KENYON Report Released Date/Time: Oct 15, 2024 04:37 PM Reporting Lab: [address] [address] Performing Lab: [address] [address] 25-OH VITAMIN D 28.3 ng/mL 20.0-50.0 Oct 17, 2024 03:32 PM [facility] BNP (iCouch) PLASMA Specimen Type: PLASMA Comment: BNP results less than or equal to 100 pg/ml are insurance verification representative of normal values in patients without CHF. BNP results greater than 100 pg/ml are considered abnormal and suggestive of CHF. Higher BNP concentrations in the first 72 hours after Acute Coronary Syndrome are associated with an increased risk of , myocardial infarction and CHF. Ordering Provider: REBECCA KENYON Report Released Date/Time: Oct 15, 2024 04:37 PM Reporting Lab: [address] [address] Performing Lab: [address] [address] BNP (WOODS) 101 pg/mL H 0-100 Oct 14, 2024 10:53 AM [facility] HIV-1 VIRAL LOAD (PCR) [...] used for patients with documented HIV-1infection. The [facility] has verified the performance characteristics of this test. This test is FDA approved. Ordering Provider: HILARY FLANAGAN Report Released Date/Time: Oct 14, 2024 10:21 AM Reporting Lab: [address] [address] Performing Lab: [address] [address] .HIV-1 VIRAL LOAD (COPIES/ML) Not Detected Not Detected Oct 14, 2024 10:53 AM [facility] CD4/CD8 RATIO PROFILE BLOOD Specim en Type: BLOOD No comment entered. Ordering Provider: HILARY FLANAGAN Report Released Date/Time: Oct 14, 2024 10:21 AM Reporting Lab: [address] [address] Performing Lab: [address] [address] .% CD 4 Pos. Lymph. 29.9 L 30.8-58.5 .% CD 8 Pos. Lymph. 37.8 H 12.0-35.5 .CD 4 / CD 8 Ratio 0.79 L 0.92-3.72 .Absolute CD 4 Holton 299 /uL L 359-1519 .Absolute CD 8 Suppressor 378 /uL 109-89 7 Immunizations: All administered on the encounter date This section contains immunizations associated to the Encounter. Immunization Series Date Issued Administered By Site Reaction Lot Number [id number] Code Drug Tire Mold Engraver Comment(s) Source INFLUENZA, HIGH-DOSE, TRIVALENT, PF Oct 15, 2024 ENMA PADILLA RIGHT DELTO ID [id number] [place] [place], [facility] Social History: Smoking Status (Most current) and Tobacco Use (All prior to encounter date) This section includes the most current, and the historical, smoking and tobacco- related health factors from the [place] facility where the Encounter took place. Current Smoking Status This section includes the most current smoking, or tobacco-related health factor, from the [place] facility where the Encounter took place. Date/Time Current Smoking Status Comment Facil ity May 05, 2016 01:12 AM NON-TOBACCO USE INPATIENT [facility] Tobacco Use History This section includes a history of the smoking, or tobacco-related health factors, that were collected on or before the date of the Encounter. The data comes from the [place] facility where the Encounter took place. Date/Time Smoking Status/Tobacco Use Comment F acility Nov 24, 2015 04:48 PM NON-TOBACCO USE INPATIENT [facility] Oct 01, 2014 07:15 PM NON-TOBACCO USE INPATIENT [facility] Apr 10, 2005 01:20 PM HF V9 LIFETIME NON-SMOKER [facility] Nov 24, 2003 03:11 PM HF V9 LIFETIME NON-SMOKER [facility] Oct 07, 2002 02:26 PM HF V9 LIFETIME NON-SMOKER [facility] Advance Directives: All historical and current Section Date Range: From patient's date of to the date document was created. This section includes ALL of a patient's completed or amended [place] Advance and Rescinded Directives. The entries below indicate that a directive exists for the patient, but an actual copy is not included with this document. The data comes from all [place] facilities. Date Advance Directives Provider Source Sep 25, 2024 ADVANCE DIRECTIVE DISCUSSION ANTHONY IRVING [facility] Encounter Notes: All associated encounter notes This section contains the clinical notes associated to the Encounter. Date/Time Encounter Note(s) Provider Source Oct 18, 2024 12:09 PM ADDENDUM: LOCAL TITLE: Addendum STANDARD TITLE: ADDENDUM DATE OF NOTE: OCT 18, 2024@12:09:49 ENTRY DATE: OCT 18, 2024@12:09:50 AUTHOR: REBECCA KENYON EXP COSIGNER: URGENCY: STATUS: COMPLETED further review of record. Oct 15 [facility] RN visit patient reported soa and increased edema on the day before which had resolved. [place] is unable to weigh. Oct 16 cardiology: HfpEF Class III with PAF (currently atrial flutter) and recent pneumonia that could contribute to soa. Anticoagulation deferred until patient's hematoma resolves and outside reports ECHO and 2 week monitoring are obtained. Plan: Recommend cautious use of additional diuretic doses given the lack of objective information (weights) and the presence of other factors that may increase dyspnea. Family to continue to monitor edema, urine output, and soa and consult [facility] for guidance re giving additional doses of bumex. /angie/ REBECCA KENYON APRN ADVANCED PRACTICE REGISTERED NURSE, [facility] Signed: 10/18/2024 13:05 Receipt Acknowledged By: 10/21/2024 16:54 /angie/ PARRIS PADILLA RN --- Original Document --- 10/18/24 [facility] CHART CHECK: Oct 17, 2024@15:32 Test Name Result Units Range --------- ------ ----- ----- GLYCOHEMOGLOBIN 7.3 H % 4.4 - 5.6 BNP 101 Vitamin D 28.3 glyco meeting patient goal <7.5- continue current meds BNP slightly above normal range, no s/s chf exacerbation reported, continue bumex at current dose. Vitamin D > 20 in normal range, will discontinue cholecalciferol. lab letter sent. /angie/ REBECCA KENYON APRN ADVANCED PRACTICE REGISTERED NURSE, [facility] Signed: 10/18/2024 11:59 REBECCA KENYON-KAREND [facility] Oct 18, 2024 12:00 PM LETTERS: LOCAL TITLE: [facility] LETTER TEST RESULTS STANDARD TITLE: LETTERS DATE OF NOTE: OCT 18, 2024@12:00 ENTRY DATE: OCT 18, 2024@12:00:19 AUTHOR: REBECCA KENYON EXP COSIGNER: URGENCY: STATUS: COMPLETED [facility] [address] [place] [address] Mr. ROXI [facility]LER [address] [facility] [address] [address] Oct Dear Mr. ROXI WINKLER Your [facility] Provider has reviewed your recent tests, and wanted us to let you know that everything looked stable. Your glycohemoglobin 7.3% meeting your goal <7.5. Continue your current medications. Your vitamin D 28.3 is adequate. Will discontinue your cholecalciferol. Your BNP is just slightly above normal range. Should you notice increased edema along with shortness of breath please let us know and we will guide you regarding taking extra diuretic. A copy of your test results is attached below. You may notice that some tests are listed as outside normal limits. Your [facility] Provider has reviewed these results, and has determined these are not considered to be significant. Therefore, they do not require further investigation or treatment. There are no recommended changes in your medications or treatment plan at this time. Please call us if you have questions or problems. You can reach us at (toll free number) or [phone] (local number). If you are enrolled in [employer], and utilize those services, you may prefer to contact us by secure message. Thank you for your service to our Country. We are honored to be able to provide medical care to you. LABS: Recent labwork Collection DT Specimen Test Name Result Units Ref Range 10/17/2024 15:32 PLASMA!! BNP (WOODS) 101 H pg/mL 0 - 100 10/17/2024 15:32 SERUM !! 25-OH VITAMIN D 28.3 ng/mL 20.0 - 50.0 10/17/2024 15:32 BLOOD !! GLYCOHEMOGLOBIN 7.3 H % 4.4 - 5.6 !! Indicates COMMENTS AVAILABLE...Refer to Interim Lab Report. RADIOLOGY: Recent radiology results No data available Sincerely, /angie/ REBECCA KENYON APRN ADVANCED PRACTICE REGISTERED NURSE, [facility] Patient Record Number [id number] REBECCA KENYON-[facility] Oct 18, 2024 11:52 AM [facility] NOTE: LOCAL TITLE: [facility] CHART CHECK STANDARD TITLE: [facility] NOTE DATE OF NOTE: OCT 18, 2024@11:52 ENTRY DATE: OCT 18, 2024@11:52:07 AUTHOR: REBECCA KENYON EXP COSIGNER: URGENCY: STATUS: COMPLETED [facility] CHART CHECK Has ADDENDA Oct 17, 2024@15:32 Test Name Result Units Range --------- ------ ----- ----- GLYCOHEMOGLOBIN 7.3 H % 4.4 - 5.6 BNP 101 Vitamin D 28.3 glyco meeting patient goal <7.5- continue current meds BNP slightly above normal range, no s/s chf exacerbation reported, continue bumex at current dose. Vitamin D > 20 in normal range, will discontinue cholecalciferol. lab letter sent. /angie/ REBECCA KENYON APRN ADVANCED PRACTICE REGISTERED NURSE, [facility] Signed: 10/18/2024 11:59 10/18/2024 ADDENDUM STATUS: COMPLETED further review of record. Oct 15 [facility] RN visit patient reported soa and increased edema on the day before which had resolved. [place] is unable to weigh. Oct 16 cardiology: HfpEF Class III with PAF (currently atrial flutter) and recent pneumonia that could contribute to soa. Anticoagulation deferred until patient's hematoma resolves and outside reports ECHO and 2 week monitoring are obtained. Plan: Recommend cautious use of additional diuretic doses given the lack of objective information (weights) and the presence of other factors that may increase dyspnea. Family to continue to monitor edema, urine output, and soa and consult [facility] for guidance re giving additional doses of bumex. /es/ RBEECCA KENYON APRN ADVANCED PRACTICE REGISTERED NURSE, [facility] Signed: 10/18/2024 13:05 Receipt Acknowledged By: * AWAITING SIGNATURE * PARRIS PADILLA [facility] Oct 15, 2024 04:39 PM IMMUNIZATION NOTE: LOCAL TITLE: IMMUNIZATION DOCUMENTATION NOTE STANDARD TITLE: IMMUNIZATION NOTE DATE OF NOTE: OCT 15, 2024@16:39 ENTRY DATE: OCT 15, 2024@16:39:25 AUTHOR: PARRIS PADILLA EXP COSIGNER: URGENCY: STATUS: COMPLETED Flu Shot Influenza, High-Dose, Trivalent, Preservative Free (Fluzone-Syringe) Administered: INFLUENZA, HIGH-DOSE, TRIVALENT, PF Date Administered: Oct 15, 2024 12:00 Tire Mold Engraver: SANOFI PASTEUR Lot: [id number] Exp Date: Mar 02, [address] [facility]: [phone] Admin Route/Site: INTRAMUSCULAR/RIGHT DELTOID Dosage: 0.5mL Vaccine Information Statement(s): INFLUENZA(FLU) VACC(INACTIVATED OR RECOMBINANT)VIS Apr 08, 2021 (NEPALI) Order By: Rebecca Kenyon Administered By: Parris Padilla The Influenza Vaccine Information Statement (VIS) was reviewed with the patient/caregiver which lists the benefits and risks of the vaccine and the risks of not receiving the Influenza vaccine. The patient/caregiver denied any prior severe reaction to this vaccine or its components or a severe allergic reaction, such as anaphylaxis, to any vaccine or any injectable therapy. The patient/caregiver gave verbal consent to receive the vaccine. Temp 47 /es/ PARRIS PADILLA RN Signed: 10/15/2024 16:41 PARRIS PADILLA-Yancy [facility] Oct 15, 2024 04:24 PM ADDENDUM: LOCAL TITLE: Addendum STANDARD TITLE: ADDENDUM DATE OF NOTE: OCT 15, 2024@16:24:04 ENTRY DATE: OCT 15, 2024@16:24:06 AUTHOR: REBECCA KENYON EXP COSIGNER: URGENCY: STATUS: COMPLETED per [facility] pharmacy note 09/23/24 pharmacy note: [facility] 08/23/24 WBC 10.7 RBC 4.86 HGB 13.1 L [...] AB NEG HEP C AB NON REACTIVE Plan: 1. Please ask to go to the lab: Glycohemoglobin and vitamin D ordered. BNP ordered d/t patient report of dyspnea,confusion, increased lower extremity edema yesterday. Patient is unable to stand for weights. 2. Please tell cg to discontinue iron and vitamin C. HGB >13. /es/ REBECCA KENYON APRN ADVANCED PRACTICE REGISTERED NURSE, [facility] Signed: 10/15/2024 16:36 Receipt Acknowledged By: 10/15/2024 16:38 /es/ PARRIS PADILLA RN --- Original Document --- 10/15/24 [facility] NURSING PROGRESS: HB FOLLOW-UP NOTE Date of visit: Oct Time spent with patient: 60 min Date of admission to [facility]: Patient Identified by: Name, SS, , Facial Recognition, Known Address Source of Information: Patient, Spouse, Son/Daughter What matter most to you in your life right now? being home with my family MEDICATIONS: Active Medications: Active Outpatient Medications (including Supplies): ALBUTEROL 90MCG (CFC-F) 200D ORAL INHL INHALE 2 PUFFS BY ACTIVE MOUTH EVERY 6 HOURS NEEDED FOR SHORTNESS OF BREATH ASCORBIC ACID 500MG TAB TAKE ONE TABLET BY MOUTH DAILY ACTIVE (TAKE WITH IRON SUPPLEMENT FOR BETTER ABSORPTION) BIKTARVY 50/200/25 TAB TAKE 1 TABLET BY MOUTH DAILY ACTIVE Indication: INFECTION BUMETANIDE 2MG TAB TAKE ONE TABLET BY MOUTH DAILY FOR ACTIVE FLUID (TAKE ADDITIONAL EVENING DOSE FOR 3LB WEIGHT GAIN IN 24 HOURS OR 5LB WEIGHT GAIN IN 1 WEEK) CHOLECALCIF 25MCG (D3-1,000UNIT) TAB TAKE ONE TABLET BY ACTIVE MOUTH DAILY FOR VITAMIN D SUPPLEMENT FERROUS SULFATE 324MG EC TAB TAKE 1 TABLET BY MOUTH DAILY ACTIVE FOR IRON SUPPLEMENT AND ANEMIA - TAKE WITH FOOD FINASTERIDE 5MG TAB TAKE ONE TABLET BY MOUTH DAILY FOR ACTIVE PROSTATE GABAPENTIN 300MG CAP TAKE TWO CAPSULES BY MOUTH EVERY ACTIVE MORNING AND TAKE THREE CAPSULES EVERY EVENING AND TAKE THREE CAPSULES AT BEDTIME Indication: FOR NERVE PAIN GLUCOSE SENSOR DEXCOM G7 USE SENSOR DIRECTED NEEDED ACTIVE (S) Indication: FOR BLOOD SUGAR MONITORING LIDOCAINE 5% 5IN X 6IN PATCH APPLY 2 PATCHES TO SKIN DAILY ACTIVE NEEDED FOR PAIN. (LEAVE ON 12 HOURS, THEN REMOVE FOR 12 HOURS) METHOCARBAMOL 750MG TAB TAKE ONE TABLET BY MOUTH EVERY 6 ACTIVE HOURS NEEDED FOR MUSCLE SPASM OLODATEROL/TIOTROP 2.5MCG/ACTUAT 60D INH INHALE 2 PUFFS BY ACTIVE MOUTH EVERY MORNING FOR BREATHING PANTOPRAZOLE NA 40MG EC TAB TAKE ONE TABLET BY MOUTH DAILY ACTIVE TAKE ON AN EMPTY STOMACH. Indication: FOR STOMACH SITAGLIPTIN (EQV-ZITUVIO) 100MG TAB TAKE ONE TABLET BY ACTIVE MOUTH DAILY -REPLACES ALOGLIPTIN. STORE IN ORIGINAL CONTAINER. OPENED BOTTLES MUST BE USED WITHIN 3 MONTHS Indication: FOR BLOOD SUGAR TAMSULOSIN HCL 0.4MG CAP TAKE ONE CAPSULE BY MOUTH EVERY ACTIVE EVENING FOR PROSTATE TRAMADOL HCL 50MG TAB TAKE ONE TABLET BY MOUTH EVERY ACTIVE MORNING AND TAKE ONE TABLET EVERY EVENING AND TAKE TWO TABLETS AT BEDTIME NEEDED (USE SPARINGLY. SUPPLY MUST LAST 30 DAYS. CAUSES IMPAIRMENT, RECOMMEND NOT TO DRIVE ON THIS MEDICATION.) Indication: FOR PAIN VENLAFAXINE HCL 150MG 24HR SA CAP TAKE ONE CAPSULE BY ACTIVE MOUTH DAILY Indication: FOR CHRONIC PAIN Non-VA ASPIRIN 81MG EC TAB 81MG MOUTH DAILY ACTIVE Non-VA NALOXONE NASAL RESCUE 4MG SOLN,SPRAY,NASAL ONE ACTIVE NOSTRIL ONLY Non-VA OXYGEN GAS 3 LITERS NASAL CANNULA DAILY ACTIVE 20 Total Medications Jngo-krl-jeincrz products used by patient: None per daughter- Medications/OTC/supplements started and/or discontinued since last [facility] visit. Per [facility] medication record- Medication list compared with list/medication bottles in the home: No medication discrepancies were identified. Has the patient missed any doses since the last visit?* No Updated medication list was provided for the patient/caregiver: during the visit Education Provided: Education including regimen, indication for use, potential side effects, and interactions provided for the following medications: reviewed with patient and daughter-both voiced understanding and agreement- Medication education and updated medication sheet provided to: Patient, Caregiver Patient/caregiver indicated understanding by: Verbalization Medications set up by: Caregiver HOME SAFETY ASSESSMENT: No Unsound structure No Unsafe functional barriers (stairs, etc.) No Unsafe placement of rugs, cords, furniture No Weapons in the home N/A Weapons secured in an area away from the area of care provision No Inadequate Heating/Electricity No Inadequate Cooking Facilities No Inadequate Sleeping Arrangements No Inadequate Ventilation No Inadequate [place] No Unsafe Storage of Supplies/Equipment No Presence of Infestation of Pests Yes Functioning Smoke Alarm Present No Fire Extinguisher Present Yes Fire Exit Plan No Use of Restraints Yes Home is adaptable for Home Care No Smoking materials present in the home N/A Pets secured in an area away from the area of care provision No Additional safety concerns: Temperature: Temperature: 98.5 F (36.9 C) Pulse: Pulse: 78 Pulse Oximetry: 95 Respirations: Respirations: 18 Blood Pressure: Blood Pressure: 118/64 Pain: Pain: 3 OXYGEN IN THE HOME: Yes: Patient Patient receives home oxygen by: Nasal Cannula at a rate of 3 Continuous Vendor name and telephone number: Home Oxygen Saftey Risk Assessment: Yes Liter flow correct based on prescription? Yes Patient knowledgeable of prescription? Yes No smoking signs posted? No Smoking materials/potential for open flames (candles, lighters, gas stove, used ashtrays, etc.) No Fire extinguisher in the home? Yes Functioning smoke detectors in the home? Yes Location of concentrator: is there at least 3 inches of space on all sides for adequate ventilation and away from heat source or flammable materials? Yes All portable tanks/back up tank secured in storage racks in well-ventilated area Home Oxygen Education: -Encourage [place] to notify neighbors of Oxygen in use. -Reviewed causes of fire (smoking, open flames, oil based products) and precautions to prevent fire related injuries. -Placement and maintenance of concentrator, tubing, and accessories. -Written materials provided on home oxygen use. -Contact vendor with questions or concerns. Recommendations for identified risks: No identified risks noted// Patient/caregiver response to education: Verbalizes understanding, Agreed to oxygen safety responsibilities, Oxygen supplier notified of non-compliance PAIN EVALUATION: Patient answers YES to Do you have pain? question. Pain Scale: 3 Sometimes distracts me Type of pain: Ache, Dull Patient's acceptable pain level: 3 Chronic Onset/Duration: coms and goes- Therapeutic Actions Taken: Pharmacological Measures: See medication record for pain meds Non-Pharmacological measures: Immobilization The pain affects your: Sleep, Physical activity, Activity NEUROLOGICAL STATUS: The patient is currently: Alert, Oriented to person, Oriented to place, Follows verbal commands, Pupils PEARRL Daughter stated that yesterday he was having some confusion- The patient exhibits: Forgetful Education Provided: Safety precautions for cognitively impaired (fall precautions, wandering risk, medication lock-up, ect...), Review of s/s that need immediate medical attention (CVA, Head Trauma, Severe unrelieved headaches, seizures, ect...) Depression Screen: Over the last 2 WEEKS, how often have you been bothered by any of the following problems? Little interest or pleasure in doing things: not at all (0 points) Feeling down, depressed, or hopeless: not at all (0 points) Score: 0 Positive Screen = 3 or more Negative Screen = 2 and under Do you feel suicidal today? No CARDIOVASCULAR STATUS: Heart Sounds: Regular Pulses: Right Radial:Palpable Strong (+2) Left Radial: Palpable Strong (+2) Right Pedal: Palpable Strong (+2) Left Pedal: Palpable Strong (+2) Edema: Lower Extremities: Bilateral Trace Education Provided: Reinforced diet recommendations, S/s of hyper/hypotension, take medications as prescribed, S/s that require immediate medication attention (s/s of acute NM, palpitations, ect...), Notify [facility] of new or worsening symptoms, Other:elevate feet and legs. RESPIRATORY STATUS: Lung Sounds: Right Upper Lobe: Clear Right Middle Lobe: Clear Right Lower Lobe: Clear Left Upper Lobe: Clear Left Lower Lobe: Clear Education provided: Take medications as prescribed, Symptoms to report to provider (new or worsening symptoms) GASTROINTESTINAL STATUS: Abdomen is: Flat Bowel Sounds: Normal Abdominal Pain: Describe: Hematoma left side of abdomen-says it hurts- Bowel Movements: Normal Last BM: yesterday Frequency: EVERY COUPLE OF DAYS AT LEAST Patient has: Other: NUTRITIONAL STATUS: Current Diet: NCS Appetite: Good DIABETES: Accucheck monitoring Frequency: Has dexcom GENITOURINARY STATUS: Voiding without difficulty Comments: Urine Characteristics: Clear Patient has/uses: Bathroom PAULINO SCORE: Paulino Scale Score:18 INTEGUMENTARY ASSESSMENT: Skin Color: Normal for ethnic group Skin Temperature: Warm Skin Moisture: Dry Skin Turgor: Within normal limits Skin Impairment: Has large hematoma on the lower right side of his abdomen-says it is painful-thinks it might be a little bigger-but it is not as discolored-just a faint yellow at this time. MOBILITY: Patient is ambulatory with assistive devices: Rollator, Wheelchair, Motorized chair/Scooter Patient extremety strength is: All extremities strong bilaterally FALLS: Have you fallen since last visit: No NURSING SUMMARY OF CARE: Reviewed poc and current interventions with patient-daughter and spouse-all voiced understanding and agreement- PROCEDURES/INTERVENTIONS: Medication Reconcilliation, Mediplanner Fill, Vital Signs, Assessment,Immunization EDUCATION: Fall Prevention: Proper footwear, Safe use of assitive devices, Clutter free pathways, Notify [facility] of falls Pain: Medication Compliance, Use of non-pharmacological methods, Notify [facility] of new or uncontrolled pain Skin: Moisture dry skin, Keep clean and dry, Notify [facility] of changes in skin integrity Neuro: Notify [facility] of change in mental status, syncope, new or worsening, symptoms) Cardiopulmonary: Reinforce diet recommendations, Take medications as prescribed, Notify [facility] of new or worsening symptoms, Symptoms requiring immediate medical attention(new onset CP, CP unrelieved with NTG, chest pressure, CP that radiates to left side/neck/jaw, new or worsening SOB, new onset or worsening palpitations, cyanosis) Hypentension: Reinforce diet recommendations, Take medication as prescribed, s/s of hyper/hypotension, Notify [facility] of extreme changes in BP CHF: Reinforce diet recommendations (lo sodium diet, fluid restrictions, Take medications as prescribed COPD/Respiratory Disease: Notify [facility] of new or worsening respiratory symptoms Diabetes: Medication compliance, s/s of hyper/hypoglycemia and treatment, Notify [facility] of uncontrolled blood glucose Patient/Caregiver: Receptive to education Patient/caregiver indicates understanding of education by: Verbalizes Comments: Skilled nurse in home to teach on HTN COPD CHF Diabetes BPH Will see patient next week- PCP, Hematoma on LLQ-patient says it is a little painful-not as discolored at it was at the time of admission-light pale yellow in color-maybe a little larger- discussed with daughter trying to measure it-if family does not get a measuring tape will take one next week. Patient was seen in infectious disease clinic yesterday-his oxygen level dropped to the 70's while here=oxygen had to be turned up to 4 l=at today's visit it stayed around 95-96% on 3 while just sitting- Daughter is concerned it is because of his heart failure-stated his legs were swollen yesterday-but back to baseline today-he took his bumex at scheduled yesterday but he did not have a good output-that has also been brian this am- He comes in to the [place] on Sunday for an eye appt-on initial visit the plan was to obtain labs- cbc, p5, iron studies, vitamin D-if that is still the plan please order and he will go to the lab-daughter is also asking if a BNP would be appropriate-she said it was high last time it was checked-which was cardiology appt at [facility] 2-3 weeks ago. Patient will plan to stop at lab to have the planned labs drawn and the BNP if you agree. /es/ PARRIS PADILLA RN Signed: 10/15/2024 16:02 Receipt Acknowledged By: 10/15/2024 16:23 /angie/ REBECCA KENYON APRN ADVANCED PRACTICE REGISTERED NURSE, [facility] REBECCA KENYON-D [facility] Oct 15, 2024 02:57 PM HB NURSING NOTE: LOCAL TITLE: [facility] NURSING PROGRESS STANDARD TITLE: [facility] NURSING NOTE DATE OF NOTE: OCT 15, 2024@14:57 ENTRY DATE: OCT 15, 2024@14:59:55 AUTHOR: PARRIS PADILLA EXP COSIGNER: URGENCY: STATUS: COMPLETED [facility] NURSING PROGRESS Has ADDENDA [facility] FOLLOW-UP NOTE Date of visit: Oct Time spent with patient: 60 min Date of admission to [facility]: Patient Identified by: Name, SS, , Facial Recognition, Known Address Source of Information: Patient, Spouse, Son/Daughter What matter most to you in your life right now? being home with my family MEDICATIONS: Active Medications: Active Outpatient Medications (including Supplies): ALBUTEROL 90MCG (CFC-F) 200D ORAL INHL INHALE 2 PUFFS BY ACTIVE MOUTH EVERY 6 HOURS NEEDED FOR SHORTNESS OF BREATH ASCORBIC ACID 500MG TAB TAKE ONE TABLET BY MOUTH DAILY ACTIVE (TAKE WITH IRON SUPPLEMENT FOR BETTER ABSORPTION) BIKTARVY 50/200/25 TAB TAKE 1 TABLET BY MOUTH DAILY ACTIVE Indication: INFECTION BUMETANIDE 2MG TAB TAKE ONE TABLET BY MOUTH DAILY FOR ACTIVE FLUID (TAKE ADDITIONAL EVENING DOSE FOR 3LB WEIGHT GAIN IN 24 HOURS OR 5LB WEIGHT GAIN IN 1 WEEK) CHOLECALCIF 25MCG (D3-1,000UNIT) TAB TAKE ONE TABLET BY ACTIVE MOUTH DAILY FOR VITAMIN D SUPPLEMENT FERROUS SULFATE 324MG EC TAB TAKE 1 TABLET BY MOUTH DAILY ACTIVE FOR IRON SUPPLEMENT AND ANEMIA - TAKE WITH FOOD FINASTERIDE 5MG TAB TAKE ONE TABLET BY MOUTH DAILY FOR ACTIVE PROSTATE GABAPENTIN 300MG CAP TAKE TWO CAPSULES BY MOUTH EVERY ACTIVE MORNING AND TAKE THREE CAPSULES EVERY EVENING AND TAKE THREE CAPSULES AT BEDTIME Indication: FOR NERVE PAIN GLUCOSE SENSOR DEXCOM G7 USE SENSOR DIRECTED NEEDED ACTIVE (S) Indication: FOR BLOOD SUGAR MONITORING LIDOCAINE 5% 5IN X 6IN PATCH APPLY 2 PATCHES TO SKIN DAILY ACTIVE NEEDED FOR PAIN. (LEAVE ON 12 HOURS, THEN REMOVE FOR 12 HOURS) METHOCARBAMOL 750MG TAB TAKE ONE TABLET BY MOUTH EVERY 6 ACTIVE HOURS NEEDED FOR MUSCLE SPASM OLODATEROL/TIOTROP 2.5MCG/ACTUAT 60D INH INHALE 2 PUFFS BY ACTIVE MOUTH EVERY MORNING FOR BREATHING PANTOPRAZOLE NA 40MG EC TAB TAKE ONE TABLET BY MOUTH DAILY ACTIVE TAKE ON AN EMPTY STOMACH. Indication: FOR STOMACH SITAGLIPTIN (EQV-ZITUVIO) 100MG TAB TAKE ONE TABLET BY ACTIVE MOUTH DAILY -REPLACES ALOGLIPTIN. STORE IN ORIGINAL CONTAINER. OPENED BOTTLES MUST BE USED WITHIN 3 MONTHS Indication: FOR BLOOD SUGAR TAMSULOSIN HCL 0.4MG CAP TAKE ONE CAPSULE BY MOUTH EVERY ACTIVE EVENING FOR PROSTATE TRAMADOL HCL 50MG TAB TAKE ONE TABLET BY MOUTH EVERY ACTIVE MORNING AND TAKE ONE TABLET EVERY EVENING AND TAKE TWO TABLETS AT BEDTIME NEEDED (USE SPARINGLY. SUPPLY MUST LAST 30 DAYS. CAUSES IMPAIRMENT, RECOMMEND NOT TO DRIVE ON THIS MEDICATION.) Indication: FOR PAIN VENLAFAXINE HCL 150MG 24HR SA CAP TAKE ONE CAPSULE BY ACTIVE MOUTH DAILY Indication: FOR CHRONIC PAIN Non-VA ASPIRIN 81MG EC TAB 81MG MOUTH DAILY ACTIVE Non-VA NALOXONE NASAL RESCUE 4MG SOLN,SPRAY,NASAL ONE ACTIVE NOSTRIL ONLY Non-VA OXYGEN GAS 3 LITERS NASAL CANNULA DAILY ACTIVE 20 Total Medications [id number] products used by patient: None per daughter- Medications/OTC/supplements started and/or discontinued since last [facility] visit. Per [facility] medication record- Medication list compared with list/medication bottles in the home: No medication discrepancies were identified. Has the patient missed any doses since the last visit?* No Updated medication list was provided for the patient/caregiver: during the visit Education Provided: Education including regimen, indication for use, potential side effects, and interactions provided for the following medications: reviewed with patient and daughter-both voiced understanding and agreement- Medication education and updated medication sheet provided to: Patient, Caregiver Patient/caregiver indicated understanding by: Verbalization Medications set up by: Caregiver HOME SAFETY ASSESSMENT: No Unsound structure No Unsafe functional barriers (stairs, etc.) No Unsafe placement of rugs, cords, furniture No Weapons in the home N/A Weapons secured in an area away from the area of care provision No Inadequate Heating/Electricity No Inadequate Cooking Facilities No Inadequate Sleeping Arrangements No Inadequate Ventilation No Inadequate [place] No Unsafe Storage of Supplies/Equipment No Presence of Infestation of Pests Yes Functioning Smoke Alarm Present No Fire Extinguisher Present Yes Fire Exit Plan No Use of Restraints Yes Home is adaptable for Home Care No Smoking materials present in the home N/A Pets secured in an area away from the area of care provision No Additional safety concerns: Temperature: Temperature: 98.5 F (36.9 C) Pulse: Pulse: 78 Pulse Oximetry: 95 Respirations: Respirations: 18 Blood Pressure: Blood Pressure: 118/64 Pain: Pain: 3 OXYGEN IN THE HOME: Yes: Patient Patient receives home oxygen by: Nasal Cannula at a rate of 3 Continuous Vendor name and telephone number: Home Oxygen Saftey Risk Assessment: Yes Liter flow correct based on prescription? Yes Patient knowledgeable of prescription? Yes No smoking signs posted? No Smoking materials/potential for open flames (candles, lighters, gas stove, used ashtrays, etc.) No Fire extinguisher in the home? Yes Functioning smoke detectors in the home? Yes Location of concentrator: is there at least 3 inches of space on all sides for adequate ventilation and away from heat source or flammable materials? Yes All portable tanks/back up tank secured in storage racks in well-ventilated area Home Oxygen Education: -Encourage to notify neighbors of Oxygen in use. -Reviewed causes of fire (smoking, open flames, oil based products) and precautions to prevent fire related injuries. -Placement and maintenance of concentrator, tubing, and accessories. -Written materials provided on home oxygen use. -Contact vendor with questions or concerns. Recommendations for identified risks: No identified risks noted// Patient/caregiver response to education: Verbalizes understanding, Agreed to oxygen safety responsibilities, Oxygen supplier notified of non-compliance PAIN EVALUATION: Patient answers YES to Do you have pain? question. Pain Scale: 3 Sometimes distracts me Type of pain: Ache, Dull Patient's acceptable pain level: 3 Chronic Onset/Duration: coms and goes- Therapeutic Actions Taken: Pharmacological Measures: See medication record for pain meds Non-Pharmacological measures: Immobilization The pain affects your: Sleep, Physical activity, Activity NEUROLOGICAL STATUS: The patient is currently: Alert, Oriented to person, Oriented to place, Follows verbal commands, Pupils PEARRL Daughter stated that yesterday he was having some confusion- The patient exhibits: Forgetful Education Provided: Safety precautions for cognitively impaired (fall precautions, wandering risk, medication lock-up, ect...), Review of s/s that need immediate medical attention (CVA, Head Trauma, Severe unrelieved headaches, seizures, ect...) Depression Screen: Over the last 2 WEEKS, how often have you been bothered by any of the following problems? Little interest or pleasure in doing things: not at all (0 points) Feeling down, depressed, or hopeless: not at all (0 points) Score: 0 Positive Screen = 3 or more Negative Screen = 2 and under Do you feel suicidal today? No CARDIOVASCULAR STATUS: Heart Sounds: Regular Pulses: Right Radial:Palpable Strong (+2) Left Radial: Palpable Strong (+2) Right Pedal: Palpable Strong (+2) Left Pedal: Palpable Strong (+2) Edema: Lower Extremities: Bilateral Trace Education Provided: Reinforced diet recommendations, S/s of hyper/hypotension, take medications as prescribed, S/s that require immediate medication attention (s/s of acute NM, palpitations, ect...), Notify [facility] of new or worsening symptoms, Other:elevate feet and legs. RESPIRATORY STATUS: Lung Sounds: Right Upper Lobe: Clear Right Middle Lobe: Clear Right Lower Lobe: Clear Left Upper Lobe: Clear Left Lower Lobe: Clear Education provided: Take medications as prescribed, Symptoms to report to provider (new or worsening symptoms) GASTROINTESTINAL STATUS: Abdomen is: Flat Bowel Sounds: Normal Abdominal Pain: Describe: Hematoma left side of abdomen-says it hurts- Bowel Movements: Normal Last BM: yesterday Frequency: EVERY COUPLE OF DAYS AT LEAST Patient has: Other: NUTRITIONAL STATUS: Current Diet: NCS Appetite: Good DIABETES: Accucheck monitoring Frequency: Has dexcom GENITOURINARY STATUS: Voiding without difficulty Comments: Urine Characteristics: Clear Patient has/uses: Bathroom PAULINO SCORE: Paulino Scale Score:18 INTEGUMENTARY ASSESSMENT: Skin Color: Normal for ethnic group Skin Temperature: Warm Skin Moisture: Dry Skin Turgor: Within normal limits Skin Impairment: Has large hematoma on the lower right side of his abdomen-says it is painful-thinks it might be a little bigger-but it is not as discolored-just a faint yellow at this time. MOBILITY: Patient is ambulatory with assistive devices: Rollator, Wheelchair, Motorized chair/Scooter Patient extremety strength is: All extremities strong bilaterally FALLS: Have you fallen since last visit: No NURSING SUMMARY OF CARE: Reviewed poc and current interventions with patient-daughter and spouse-all voiced understanding and agreement- PROCEDURES/INTERVENTIONS: Medication Reconcilliation, Mediplanner Fill, Vital Signs, Assessment,Immunization EDUCATION: Fall Prevention: Proper footwear, Safe use of assitive devices, Clutter free pathways, Notify [facility] of falls Pain: Medication Compliance, Use of non-pharmacological methods, Notify [facility] of new or uncontrolled pain Skin: Moisture dry skin, Keep clean and dry, Notify [facility] of changes in skin integrity Neuro: Notify [facility] of change in mental status, syncope, new or worsening, symptoms) Cardiopulmonary: Reinforce diet recommendations, Take medications as prescribed, Notify [facility] of new or worsening symptoms, Symptoms requiring immediate medical attention(new onset CP, CP unrelieved with NTG, chest pressure, CP that radiates to left side/neck/jaw, new or worsening SOB, new onset or worsening palpitations, cyanosis) Hypentension: Reinforce diet recommendations, Take medication as prescribed, s/s of hyper/hypotension, Notify [facility] of extreme changes in BP CHF: Reinforce diet recommendations (lo sodium diet, fluid restrictions, Take medications as prescribed COPD/Respiratory Disease: Notify [facility] of new or worsening respiratory symptoms Diabetes: Medication compliance, s/s of hyper/hypoglycemia and treatment, Notify [facility] of uncontrolled blood glucose Patient/Caregiver: Receptive to education Patient/caregiver indicates understanding of education by: Verbalizes Comments: Skilled nurse in home to teach on HTN COPD CHF Diabetes BPH Will see patient next week- PCP, Hematoma on LLQ-patient says it is a little painful-not as discolored at it was at the time of admission-light pale yellow in color-maybe a little larger- discussed with daughter trying to measure it-if family does not get a measuring tape will take one next week. Patient was seen in infectious disease clinic yesterday-his oxygen level dropped to the 70's while here=oxygen had to be turned up to 4 l=at today's visit it stayed around 95-96% on 3 while just sitting- Daughter is concerned it is because of his heart failure-stated his legs were swollen yesterday-but back to baseline today-he took his bumex at scheduled yesterday but he did not have a good output-that has also been brian this am- [facility]-on initial visit the plan was to obtain labs- cbc, p5, iron studies, vitamin D-if that is still the plan please order and he will go to the lab-daughter is also asking if a BNP would be appropriate-she said it was high last time it was checked-which was cardiology appt at [facility] 2-3 weeks ago. Patient will plan to stop at lab to have the planned labs drawn and the BNP if you agree. /angie/ PARRIS PADILLA RN Signed: 10/15/2024 16:02 Receipt Acknowledged By: 10/15/2024 16:23 /angie/ REBECCA KENYON APRN ADVANCED PRACTICE REGISTERED NURSE, [facility] 10/15/2024 ADDENDUM STATUS: COMPLETED per [facility] pharmacy note 09/23/24 pharmacy note: [facility] 08/23/24 WBC 10.7 RBC 4.86 HGB 13.1 L [...] AB NEG HEP C AB NON REACTIVE Plan: 1. Please ask to go to the lab: Glycohemoglobin and vitamin D ordered. BNP ordered d/t patient report of dyspnea,confusion, increased lower extremity edema yesterday. Patient is unable to stand for weights. 2. Please tell cg to discontinue iron and vitamin C. HGB >13. /es/ REBECCA KENYON APRN ADVANCED PRACTICE REGISTERED NURSE, [facility] Signed: 10/15/2024 16:36 Receipt Acknowledged By: 10/15/2024 16:38 /angie/ PARRIS FONTAINE RN-[facility]
--- OUTSIDE RECORDS SUMMARY | 2024-10-17 12:00 | XMS_ITS | Encounter Summary ---
Author Name [facility] [place] [facility] [place] Address [address] [place] [address] Care Team Providers Care Adult Education Teacher Name Role Phone LAURY KENYON Primary Care [...] Name Patient's Relationship to Policy [place] HUMANA CLAIMS/[place] MEDICAL PREFERRED PROVIDER ORGANIZAT ION (PPO) ARELIS ON [employer] Jun 03, 2017 [id number] ROXI WINKLER PATIENT HUMANA [facility] (WNR) MEDICARE ADVANTAGE [facility] (WNR) Sep 03, 2019 [id number] ROXI WINKLER JR PATIENT HUMANA [facility] (WNR) MEDICARE ADVANTAGE [facility] (WNR) Sep 03, 2019 [id number] ROXI WINKLERA MCR (WNR) MEDICARE ADVANTAGE HUMAN A INSUR ANCE COM Apr 04, 2019 [id number] ROXI WINKLER MCR (WNR) MEDICARE ADVANTAGE [facility] (WNR) Apr 03, 2019 [id number] ROXI WINKLER MCR (WNR) MEDICARE ADVANTAGE [facility] (WNR) Apr 03, 2019 [id number] ROXI WINKLER JR MCR (WNR) MEDICARE [facility] (WNR) Apr 03, 2019 [id number] ROXI WINKLER PHARMACY PRESCRIPT ION NONE Jun 03, 2017 NONE [id number] ROXI WINKLER MEDICARE PART D ([place]) MEDICARE (M) PART D Sep 03, 2023 PART D [id number] ROXI WINKLER JR PATIENT Selected Encounter This section includes the information on record at [place] for the Encounter. Date/Time Encounter Type Encounter Description Reason Provider Source Oct 17, 2024 04:00 PM COMPRE OPH EXAM EST PT 1/> OPTOMETRY ICD-10-CM E11.9 Type 2 diabetes mellitus without complications GALA HA Adela Encounter Template Text not used by [place] Assessments - Encounter Diagnoses This section includes the primary and secondary diagnoses documented for the Encounter. Date/Time Primary/Secondary Diagnosis Diagnosis Name Provider Source Oct 17, 2024 04:58 PM PRIMARY Type 2 diabetes mellitus without complications LEATHA HA [facility] Oct 17, 2024 04:58 PM SECONDARY Cataract extraction status, left eye LEATHA HA [facility] Oct 17, 2024 04:58 PM SECONDARY Combined forms of age-related cataract, right eye LEATHA HA [facility] Oct 17, 2024 04:58 PM SECONDARY Dry eye syndrome of bilateral lacrimal glands LEATHA HA [facility] Oct 17, 2024 04:58 PM SECONDARY Histoplasmosis, unspecified LEATHA HA [facility] Oct 17, 2024 04:58 PM SECONDARY Lattice corneal dystrophy, bilateral LEATHA HA [facility] Oct 17, 2024 04:58 PM SECONDARY Presbyopia LEATHA HA [facility] Plan of Treatment: Future Appointments (+ 6 months) and Future Tests (+/- 45 days) The Plan of Treatment section includes future care activities for the patient from all [place] treatmentfacilities. This section includes future appointments and future orders which are active, pending or scheduled. Future Appointments This section includes appointments that were scheduled to occur 6 months from the date of the Encounter, up to a maximum of 20 appointments. The data comes from all [place] treatment facilities. Appointment Date/Time Appointment Type Appointme nt Facility Name Nov 18, 2024 08:00 AM AMBULATORY - NONE [facility] Nov 21, 2024 09:00 AM [facility] [place] [place] [facility] Nov 21, 2024 11:20 AM [facility] [place] Dec 11, 2024 10:00 AM AMBULATORY - [place] [facility] Dec 23, 2024 01:30 PM AMBULATORY - [place]GERY [place] [facility] January 06, 2025 10:30 AM AMBULATORY - REHAB MEDICIN E [facility] January 06, 2025 02:00 [facility] January 30, 2025 11:00 AM [facility] Feb 17, 2025 02:00 PM AM[facility]ATORY - [place]GERY [place] [facility] Apr 14, 2025 10:30 AM [facility]ORY - [place] [place] [facility] Lab Results: +/- 30 days of the encounter This section includes the Chemistry and Hematology Lab Results on record with [place] for the patient. Radiology Reports and Pathology [...] HOSPITAL GLYCOHEMOGLOBIN BLOOD Specimen Type: BLOOD Comment: [place] guidelines for A1c interpretation: Glycemic control targets are based on Shared Decision Making between clinicians and patients. Criteria used to establish an A1c target recommendation can be found at https://www.ia.g ov/qualityandpat ientsafety/ and include the use of [...] and 9.27. Ref: https://ngsp.org /CAPdata.asp. The in-house [employer] D-100 analyzer has a historical CV <= 2%. Contact the laboratory for further performance characteristics of this assay. Ordering Provider: LAURY KENYON Report Released Date/Time: Oct 15, 2024 04:37 PM Reporting Lab: [address] [id number] Performing Lab: [address] [id number] GLYCOHEMOGLOBIN 7.3 H 4.4-5.6 Oct 17, 2024 03:32 PM [facility] 25-OH VITAMIN D SERUM Specime n Type: [...] Oct 15, 2024 04:37 PM Reporting Lab: [address] [address] Performing Lab: [address] [address] 25-OH VITAMIN D 28.3 ng/mL 20.0-50.0 Oct 17, 2024 03:32 PM [facility] BNP ([facility]) PLASMA Specimen Type: PLASMA Comment: BNP results less than or equal to 100 pg/ml are employment representative of normal values in patients without CHF. BNP results greater than 100 pg/ml are considered abnormal and suggestive of CHF. Higher BNP concentrations in the first 72 hours after Acute Coronary Syndrome are associated with an increased risk of , myocardial infarction and CHF. Ordering Provider: LAURY KENYON Report Released Date/Time: Oct 15, 2024 04:37 PM Reporting Lab: [place] [phone] Performing Lab: [place] [address] BNP ([place]) 101 pg/mL H 0-100 Oct 14, 2024 10:53 AM [facility] HIV-1 VIRAL LOAD (PCR) PLASMA Speci men Type: PLASMA Comment: HIV-1 RNA RT-PCR (HIV-1 VIRAL LOAD (PCR)) assay is performed by the [employer] [facility] This test does not rule out the presence of HIV-1 at less than 20 copies/mL. Quantitative range is 20 (1.30 Log (Copies/mL)) - 10,000,000 (7.00 Log (Copies/mL)) copies/mL. This test should only be used for patients with documented HIV-1infection. The [facility] has verified the performance characteristics of this test. This test is FDA approved. Ordering Provider: HILARY FLANAGAN Report Released Date/Time: Oct 14, 2024 10:21 AM Reporting Lab: [place] [phone] Performing Lab: [place] [address] .HIV-1 VIRAL LOAD (COPIES/ML) Not Detected Not Detected Oct 14, 2024 10:53 AM [facility] CD4/CD8 RATIO PROFILE BLOOD Specim en Type: BLOOD No comment entered. Ordering Provider: HILARY FLANAGAN Report Released Date/Time: Oct 14, 2024 10:21 AM Reporting Lab: [place] [phone] Performing Lab: [facility] [address] [place] [phone] .% CD 4 Pos. Lymph. 29.9 L 30.8-58.5 .% CD 8 Pos. Lymph. 37.8 H 12.0-35.5 .CD 4 / CD 8 Ratio 0.79 L 0.92-3.72 .Absolute CD 4 Angelica 299 /uL L 359-1519 .Absolute CD 8 Suppressor 378 /uL 109-89 7 Social History: Smoking Status (Most current) and Tobacco Use (All prior to encounter date) This section includes the most current, and the historical, smoking and tobacco- related health factors from the [place] facility where the Encounter took place. Current Smoking Status This section includes the most current smoking, or tobacco-related health factor, from the [place] facility where the Encounter took place. Date/Time Current Smoking Status Comment Facil ity Sep 06, 2023 10:00 AM VA-TOBACCO NEVER USED [facility] Tobacco Use History This section includes a history of the smoking, or tobacco-related health factors, that were collected on or before the date of the Encounter. The data comes from the [place] facility where the Encounter took place. Date/Time Smoking Status/Tobacco Use Comment F acility Jun 20, 2022 10:30 AM VA-TOBACCO NEVER USED [facility] Jul 27, 2020 03:22 PM VA-TOBACCO NEVER USED [facility] Jul 19, 2018 11:24 AM VA-TOBACCO NEVER USED [facility] Mar 18, 2018 10:14 AM V9 LIFETIME NON-USER OF TOBACCO [facility] Mar 29, 2017 07:47 AM V9 LIFETIME NON-USER OF TOBACCO [facility] Apr 27, 2016 08:56 AM V9 LIFETIME NON-USER OF TOBACCO [facility] May 27, 2015 09:53 AM V9 LIFETIME NON-USER OF TOBACCO [facility] Jun 29, 2014 02:25 PM V9 LIFETIME NON-USER OF TOBACCO [facility] Feb 10, 2013 02:08 PM V9 LIFETIME NON-USER OF TOBACCO [facility] Mar 19, 2012 09:36 AM V9 LIFETIME NON-USER OF TOBACCO [facility] Dec 13, 2010 10:09 AM V9 LIFETIME NON-USER OF TOBACCO [facility] Aug 13, 2006 09:26 AM V9 LIFETIME NON-USER OF TOBACCO [facility] Apr 24, 2006 02:37 PM HF V9 LIFETIME NON-SMOKER [facility] Advance Directives: All historical and current Section Date Range: From patient's date of to the date document was created. This section includes ALL of a patient's completed or amended [place] Advance and Rescinded Directives. The entries below indicate that a directive exists for the patient, but an actual copy is not included with this document. The data comes from all [place] facilities. Date Advance Directives Provider Source Sep 25, 2024 ADVANCE DIRECTIVE DISCUSSION ANTHONY IRVING [facility] Encounter Notes: All associated encounter notes This section contains the clinical notes associated to the Encounter. Date/Time Encounter Note(s) Provider Source Oct 17, 2024 04:51 PM STUDENT NOTE: LOCAL TITLE: MEDICAL STUDENT SOAP NOTE STANDARD TITLE: STUDENT NOTE DATE OF NOTE: OCT 17, 2024@16:51 ENTRY DATE: OCT 17, 2024@16:51:44 AUTHOR: MILAGROS GARCIA EXP COSIGNER: LEATHA HA URGENCY: STATUS: COMPLETED I participated in this patient care encounter with Dr. Ha /angie/ MILAGROS GARCIA Optometry Student Signed: 10/17/2024 16:52 /angie/ LEAHTA HA Staff Milking System Installer Cosigned: 10/17/2024 16:59 MILAGROS GARCIA [facility] Oct 17, 2024 03:48 PM OPTOMETRY NOTE: LOCAL TITLE: OPTOMETRY ATTENDING NOTE STANDARD TITLE: OPTOMETRY NOTE DATE OF NOTE: OCT 17, 2024@15:48 ENTRY DATE: OCT 17, 2024@15:48:37 AUTHOR: LEATHA HA EXP COSIGNER: URGENCY: STATUS: COMPLETED Type of exam: Comprehensive Chief complaint/Reason for visit: 69YO WHITE patient presents for diabetic eye exam with complainst of a new large floater in his left eye, starting about 6 months ago. Feels like vision is ok with glasses at distance and near, but could be better. Also experiencing dry eye, does not take any drops, not very symptomatic. No flashes or eye pain OU. No other ocular or vision complaints. 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) (-) History of Cancer (-) History of Known CVA (+) Use of anticoagulant Type: aspirin 81mg Ocular Medications: None (-) History of allergies to ocular medications Family history: None Smoking history: (-) Smoker Diabetes History: Date of Dx: > 30 years Last HemA1C: Z GLYCOHEMOGLOBIN (HPLC) 11/15/23 15:21 7.3 H 07/20/23 15:30 7.1 H Additional Diabetic retinopathy risk factors: (+) Hypertension (-) Proteinuria (+) Dyslipidemia (-) Poor control of diabetes (-) Currently (+) Sedentary lifestyle/Lack of exercise Additional Risk Factors for Macular Degeneration: (+) Patient is over age 60 (+) Obesity (Centers for Disease Control and Prevention definition: BMI of 30 or more) (+) Pt has heritage (-) Female sex Additional Glaucoma Risk Hx: (-) over age 40 (+) Pt is over age 60 (-) Pt has [place] heritage Medical history: Active problems - Computerized Problem List is the source for the followin. Chronic obstructive pulmonary disease 2. Closed fracture [...] Long-term current use of insulin (SNOMED CT 104831106) 28. Peripheral venous insufficiency 29. Obesity (SNOMED CT 275644405) 30. Obstructive Sleep APNEA (ADULT) (Pediatric) 31. Depressive Disorder NOS Allergies: ENALAPRIL, FOSINOPRIL, LOPID, NIASPAN 500MG ER TABLET, ATENOLOL, HYDRALAZINE VASOTEC, SIMVASTATIN, AMLODIPINE BESYLATE 5MG TABLET, SEMAGLUTIDE Medications: Active Outpatient Medications (including Supplies): Active Outpatient Medications Status 1) ALBUTEROL 90MCG (CFC-F) 200D ORAL INHL INHALE 2 PUFFS BY ACTIVE MOUTH EVERY 6 HOURS NEEDED FOR SHORTNESS OF BREATH 2) BIKTARVY 50/200/25 TAB TAKE 1 TABLET BY MOUTH DAILY ACTIVE Indication: INFECTION 3) BUMETANIDE 2MG TAB TAKE ONE TABLET BY MOUTH DAILY FOR FLUID ACTIVE (TAKE ADDITIONAL EVENING DOSE FOR 3LB WEIGHT GAIN IN 24 HOURS OR 5LB WEIGHT GAIN IN 1 WEEK) 4) CHOLECALCIF 25MCG (D3-1,000UNIT) TAB TAKE ONE TABLET BY ACTIVE MOUTH DAILY FOR VITAMIN D SUPPLEMENT 5) FINASTERIDE 5MG TAB TAKE ONE TABLET BY MOUTH DAILY FOR ACTIVE PROSTATE 6) GABAPENTIN 300MG CAP TAKE TWO CAPSULES BY MOUTH EVERY ACTIVE MORNING AND TAKE THREE CAPSULES EVERY EVENING AND TAKE THREE CAPSULES AT BEDTIME Indication: FOR NERVE PAIN 7) GLUCOSE SENSOR DEXCOM G7 USE SENSOR DIRECTED NEEDED ACTIVE (S) Indication: FOR BLOOD SUGAR MONITORING 8) LIDOCAINE 5% 5IN X 6IN PATCH APPLY 2 PATCHES TO SKIN DAILY ACTIVE NEEDED FOR PAIN. (LEAVE ON 12 HOURS, THEN REMOVE FOR 12 HOURS) 9) METHOCARBAMOL 750MG TAB TAKE ONE TABLET BY MOUTH EVERY 6 ACTIVE HOURS NEEDED FOR MUSCLE SPASM 10) OLODATEROL/TIOTROP 2.5MCG/ACTUAT 60D INH INHALE 2 PUFFS BY ACTIVE MOUTH EVERY MORNING FOR BREATHING 11) PANTOPRAZOLE NA 40MG EC TAB TAKE ONE TABLET BY MOUTH DAILY ACTIVE TAKE ON AN EMPTY STOMACH. Indication: FOR STOMACH 12) SITAGLIPTIN (EQV-ZITUVIO) 100MG TAB TAKE ONE TABLET BY MOUTH ACTIVE DAILY -REPLACES ALOGLIPTIN. STORE IN ORIGINAL CONTAINER. OPENED BOTTLES MUST BE USED WITHIN 3 MONTHS Indication: FOR BLOOD SUGAR 13) TAMSULOSIN HCL 0.4MG CAP TAKE ONE CAPSULE BY MOUTH EVERY ACTIVE EVENING FOR PROSTATE 14) TRAMADOL HCL 50MG TAB TAKE ONE TABLET BY MOUTH EVERY MORNING ACTIVE AND TAKE ONE TABLET EVERY EVENING AND TAKE TWO TABLETS AT BEDTIME NEEDED (USE SPARINGLY. SUPPLY MUST LAST 30 DAYS. CAUSES IMPAIRMENT, RECOMMEND NOT TO DRIVE ON THIS MEDICATION.) Indication: FOR PAIN 15) VENLAFAXINE HCL 150MG 24HR SA CAP TAKE ONE CAPSULE BY MOUTH ACTIVE DAILY Indication: FOR CHRONIC PAIN Active Non-VA Medications Status 1) Non-VA ASPIRIN 81MG EC TAB 81MG MOUTH DAILY ACTIVE 2) Non-VA NALOXONE NASAL RESCUE 4MG SOLN,SPRAY,NASAL ONE ACTIVE NOSTRIL ONLY 3) Non-VA OXYGEN GAS 3 LITERS NASAL CANNULA DAILY ACTIVE 18 Total Medications Medication list reviewed by: O.Yancy. Medication list is accurate per patient/doctor review, Pt/significant other reports patient taking ALL VA, Non VA, OTC medications as listed on medication tab. Describe Discrepancies: Printed copy of medication list provided to patient and/or significant other and reviewed: Yes Explained to patient and/or significant other the importance of keeping providers updated on medication changes and to carrying an updated list of medication at all times in case of an emergency situation. Yes Medication changes reviewed, patient/significant other verbalized understanding, provided updated list. VA: LM in phoropter 20/40+2 20/40+2 Habitual Rx: OD: +1.00-0.80s286 OS: pl-[id number] Add: +2.50 EOMs: Full and unrestricted OU, No Diplopia Confrontation VF: Full to finger count OU Pupils: PERRL, no APD Refraction: OD: +1.50-0.02h094 20/30 OS: +0.50-0.01v054 20/30 Add: +2.50 Final RX: Same as above SLIT LAMP EXAM: Lids/lashes: 2+ MGD OU, tr bleph OU. Conj/sclera: Clear/white OU Cornea: Iridocorneal touch at 3:00 OS, (-)edema Anterior chamber: D/q OU Iris/pupil: iris atrophy temporal from 12-3 OS; Flat/round OU, No rubeosis OU Informed consent obtained prior to instillation of all diagnostic pharmaceutical agents. IOPs ([facility]) OD: 10 OS: 08 Time: 1614 Angles: 2+ N/T VH OD, 3+ OS OCULAR HEALTH: igt 1% Tropicacyl OD, igt 1% Tropicacyl OS, igt 2.5% Phenylephrine OD, igt 2.5% Phenylephrine OS Time: 1619 Lenses used for viewinD, 20D LENS: OD: 1+NS, tr PSC; tr ACS OS: PCIOL centered and clear C/D: H/ V OD: 0.50/0.50 NRRI, No NVD, No Hemes, No Pallor, No Edema; PPA temporally OS: 0.50/0.50 NRRI, No NVD, No Hemes, No Pallor, No Edema; PPA temporally Size: average MACULA: OD: Flat, even pigment, No DME OS: Flat, even pigment, No DME, mild ERM VESSELS: OD: 2/3 AV few hemes inf OS: 2/3 AV scattered hemes inf POSTERIOR POLE: OD: Clear, No NVE OS: clear, No NVE VITREOUS: OD: PVD OS: PVD PERIPHERY: OD: scattered dot hemes, scattered punched out lesions 360, pigmented lattice without holes inf and sup, No holes, tears or breaks OS: scattered dot hemes, scattered punched out lesions 360, pigmented lattice without holes inf and sup; No holes, tears or breaks ADDITIONAL TESTING: A: 1. 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 Senile Combined Cataract OD -BCVA OD 20/30 6. Pseudophakia OS -BCVA OS 20/30 7. Dry eye syndrome OU 8. Presbyopia OU P: 1. Discussed with patient the importance of good blood pressure, blood sugar, cholesterol and lipid control. Discussed with patient the importance of regular, preventative eye screenings in the future to reduce risk of vision loss secondary to diabetes. Monitor per peer review guidelines. 2. Longstanding, not affecting vision. Continue to follow up with PCP as directed. 3. Patient was educated to return to clinic immediately if they note any change in vision, flashes of light, or onset of new floaters. Patient was informed that these can be symptoms of retinal detachment and it is an ocular emergency. If prompt surgical treatment is provided, permanent vision loss can potentially be prevented. Pt was advised to go to the ER outside of normal business hours. Monitor annually. 4. Pt ed on stable condition with no active lesions or CNVM. Continue to monitor annually. RTC if any VA changes. 5. Patient educated about cataracts, their effect on vision and the typical time for extraction is when they begin to affect the patient's activities of daily living. Patient was advised on the typical gradual course of cataracts and instructed to RTC if vision changes significantly before next F/U. 6. Pt ed on stable PCIOL OS. Continue to monitor annually. 7. Patient educated on the use of artificial tears igtt 3-4 times per day OU. Patient educated regarding proper lid hygiene with warm compresses daily OU. Patient to RTC should symptoms worsen or not improve with supportive intervention. Hand out given. 8. Pt ed on exam findings and provided w/ a copy of SPRx. Continue to monitor annually. The /caregiver voiced understanding of topics covered/discussed in today's visit. Next visit: 12 months for CEE with attending Janse /angie/ LEATHA HA Staff Milking System Installer Signed: 10/17/2024 16:58 LEATHA HA [facility]
--- OUTSIDE RECORDS SUMMARY | 2024-10-23 09:00 | XMS_ITS | Encounter Summary ---
Author Name [facility] Organization [facility] Address [address] [place] [address] Care Team Providers Care Diplomatic Officer Name Role Phone LAURY KENYON Primary Care [...] ON [employer] Jun 03, 2017 [id number] ROXI WINKLER PATIENT [employer] [facility] (WNR) MEDICARE ADVANTAGE [facility] (WN) Sep 03, 2019 [id number] ROXI WINKLER JR PATIENT [employer] [facility] (WNR) MEDICARE ADVANTAGE [facility] (WNR) Sep 03, 2019 [id number] [phone] ROXI WINKLERA MCR (WNR) MEDICARE ADVANTAGE HUMAN A INSUR ANCE COM Apr 04, 2019 [id number] ROXI WINKLERA MCR (WNR) MEDICARE ADVANTAGE MCR (WNR) Apr 03, 2019 [id number] ROXI WINKLERA MCR (WNR) MEDICARE ADVANTAGE MCR (WNR) Apr 03, 2019 [id number] ROXI WINKLERA MCR (WNR) MEDICARE ADVANTAGE MCR (WNR) Apr 03, 2019 [id number] ROXI WINKLER JR PHARMACY PRESCRIPT ION NONE Jun 03, 2017 NONE [id number] ROXI WINKLER MEDICARE PART D (WNR) MEDICARE (M) PART D Sep 03, 2023 PART D [id number] ROXI WINKLER JR PATIENT Selected Encounter This section includes the information on record at [place] for the Encounter. Date/Time Encounter Type Encounter Description Reason Provider Source Oct 23, 2024 01:00 PM HHS/HOSPICE OF RN EA 15 MIN [facility] Nursing (RN / LP) ICD-10-CM J44.9 Chronic obstructive pulmonary disease, unspecified SHIMON SINCLAIR Adela Encounter Template Text not used by [place] Assessments - Encounter Diagnoses This section includes the primary and secondary diagnoses documented for the Encounter. Date/Time Primary/Secondary Diagnosis Diagnosis Name Provider Source Oct 23, 2024 04:16 PM PRIMARY Chronic obstructive pulmonary disease, unspecified SHIMON SINCLAIR-KAREN Haines [facility] Plan of Treatment: Future Appointments (+ 6 months) and Future Tests (+/- 45 days) The Plan of Treatment section includes future care activities for the patient from all [place] treatmentfacilities. This section includes future appointments and future orders which are active, pending or scheduled. Future Appointments This section includes appointments that were scheduled to occur 6 months from the date of the Encounter, up to a maximum of 20 appointments. The data comes from all [place] treatment facilities. Appointment Date/Time Appointment Type Appointme nt Facility Name Nov 18, 2024 08:00 AM AMBULATORY - NONE STEPHEN Barnes [facility] Nov 21, 2024 09:00 AM AMBULATORY - MEDICINE FORTUNATOMichaela GALLEGOS [facility] Nov 21, 2024 11:20 AM AMBULATORY - MEDICINE FORTUNATO EL [facility] Dec 11, 2024 10:00 AM AMBULATORY - SURGERY VIRGINIAIN ZACH [facility] Dec 23, 2024 01:30 PM AMBULATORY - [facility] January 06, 2025 10:30 AM AMBULATORY - REHAB MEDICIN E CELESTINO [facility] January 06, 2025 02:00 PM AMBULATORY - SURG[facility] January 30, 2025 11:00 AM AMBULATORY - NONE STEPHEN Barnes [facility] Feb 17, 2025 02:00 PM AMBULATORY - SURGERY [facility] Apr 14, 2025 10:30 AM AMBULATORY - MEDICINE FORTUNATO GALLEGOS-D [facility] Lab Results: +/- 30 days of the encounter This section includes the Chemistry and Hematology Lab Results [facility] with [facility] for the [facility]. Radiology Reports and Pathology Reports are provided separately, in subsequent sections. Lab Results This section contains the Chemistry/Hematology Results that were resulted 30 days before or 30 daysafter the date of the Encounter. Date/Time Source Result Type Result - Unit Interpretation Reference Range Specimen Type Comment Nov 21, 2024 12:38 PM [facility] N PANEL 1 PLASMA Specimen Type: PLASMA Comment: Estimated Glomerular Filtration Rate (eGFR) calculated using the 2020 Chronic Kidney Disease-Epidemio logy (CKD-EPI) Collaboration creatinine equation; units of measure are mL/min/1.73 m2. Results are only valid for adults (>=18 years) whose serum creatinine is in a steady state. eGFR calculations are not valid for patients with acute kidney injury and for patients on dialysis. Creatinine-based estimates of kidney function may also be inaccurate in patients with reduced creatinine generation due to decreased muscle mass (e.g., malnutrition, severe hypoalbuminemia, sarcopenia, chronic neuromuscular disease, amputations, severe heart failure or liver disease) and in patients with increased creatinine generation due to increased muscle mass (e.g., muscle builders, anabolic steroids) or increased dietary intake. As drug clearance is proportional to total GFR and not GFR indexed to body surface area (BSA), in individuals with a BSA substantially different than 1.73 m2, drug dosing should be based on the reported eGFR value de-indexed from BSA by multiplying by the individual's BSA and dividing by 1.73. CKD is diagnosed based on abnormalities of kidney structure or function, present for >3 months, with implications for health and disease. CKD is classified and staged based on cause, eGFR and albuminuria (quantified as urine albumin to creatinine ratio). An eGFR >60 mL/min/1.73 m2 in the absence of increased urine albumin excretion or structural abnormalities does not represent CKD. ====== eGFR CKD Interpretation (mL/min/1.73 m2) stage >=90 G1 Normal 60-89 G2 Mild decrease 45-59 G3A Mild to moderate decrease 30-44 G3B Moderate to severe decrease 15-29 G4 Severe decrease <15 G5 Kidney failure Ordering Provider: SEFERINO DENTON Report Released Date/Time: Nov 21, 2024 12:28 PM Reporting Lab: [address] [phone] Performing Lab: [address] [phone] CREATININE 1.17 mg/dL 0.72-1.25 UREA NITROGEN 15 mg/dL 9-25 GLUCOSE 282 mg/dL H 74-100 SODIUM 133 mmol/L L 136-145 POTASSIUM 4.1 mmol/L 3.5-5.1 CHLORIDE 89 mmol/L L 98-107 CO2 38 mmol/L H 22-29 CALCIUM 9.4 mg/dL 8.4-10.2 ANION GAP 6 meq/L 3-19 eGFR (CKD-EPI) 67 Oct 17, 2024 03:32 PM [facility] GLYCOHEMOGLOBIN BLOOD Specimen Type: BLOOD Comment: [facility] guidelines for A1c interpretation: Glycemic control targets are based on Shared Decision Making between clinicians and patients. Criteria used to establish an A1c target recommendation can be found at https://www.[place].gov/qualityandpatientsafety/ and include the use of result accuracy and precision(CV) of the A1c tests clinicians utilize at their own sites of practice. Values obtained from A1C measurements can vary. For typical A1C assays, a reported value of 7.0 could actually be between 6.72 and 7.28 if measured by a reference method. A reported value of 9.0 could actually be between 8.73 and 9.27. Ref: https://ngsp.org/CAPdata.asp. The in-house [employer] D-100 analyzer has a historical CV <= 2%. Contact the laboratory for further performance characteristics of this assay. Ordering Provider: LAURY KENYON Report Released Date/Time: Oct 15, 2024 04:37 PM Reporting Lab: [address] [phone] Performing Lab: [address] [phone] GLYCOHEMOGLOBIN 7.3 H 4.4-5.6 Oct 17, 2024 03:32 PM [facility] 25-OH VITAMIN D SERUM Specime [...] Oct 15, 2024 04:37 PM Reporting Lab: [address] [phone] Performing Lab: [address] [address] 25-OH VITAMIN D 28.3 ng/mL 20.0-50.0 Oct 17, 2024 03:32 PM [facility] BNP ([place]) PLASMA Specimen Type: PLASMA Comment: BNP results less than or equal to 100 pg/ml are canvas products sales representative of normal values in patients without CHF. BNP results greater than 100 pg/ml are considered abnormal and suggestive of CHF. Higher BNP concentrations in the first 72 hours after Acute Coronary Syndrome are associated with an increased risk of , myocardial infarction and CHF. Ordering Provider: LAURY KENYON Report Released Date/Time: Oct 15, 2024 04:37 PM Reporting Lab: [address] [phone] Performing Lab: [address] [phone] BNP ([place]) 101 pg/mL H 0-100 Oct 14, 2024 10:53 AM [facility] HIV-1 VIRAL LOAD (PCR) PLASMA Speci [...] used for patients with documented HIV-1infection. The [facility] has verified the performance characteristics of this test. This test is FDA approved. Ordering Provider: HILARY FLANAGAN Report Released Date/Time: Oct 14, 2024 10:21 AM Reporting Lab: [address] [address] Performing Lab: [place] [id number] .HIV-1 VIRAL LOAD (COPIES/ML) Not Detected Not Detected Oct 14, 2024 10:53 AM [facility] CD4/CD8 RATIO PROFILE BLOOD Specim en Type: BLOOD No comment entered. Ordering Provider: HILARY FLANAGAN Report Released Date/Time: Oct 14, 2024 10:21 AM Reporting Lab: [address] [address] Performing Lab: [facility] [address] [facility] [address] .% CD 4 Pos. Lymph. 29.9 L 30.8-58.5 .% CD 8 Pos. Lymph. 37.8 H 12.0-35.5 .CD 4 / CD 8 Ratio 0.79 L 0.92-3.72 .Absolute CD 4 [employer] 299 /uL L 359-1519 .Absolute CD 8 Suppressor 378 /uL 109-89 7 Social History: Smoking Status (Most current) and Tobacco Use (All prior to encounter date) This section includes the most current, and the historical, smoking and tobacco- related health factors from the [place] facility where the Encounter took place. Current Smoking Status This section includes the most current smoking, or tobacco-related health factor, from the [place] facility where the Encounter took place. Date/Time Current Smoking Status Comment Anita [email or web address] May 05, 2016 01:12 AM NON-TOBACCO USE INPATIENT [facility] Tobacco Use History This section includes a history of the smoking, or tobacco-related health factors, that were collected on or before the date of the Encounter. The data comes from the [place] facility where the Encounter took place. Date/Time Smoking Status/Tobacco Use Comment F acsabas Nov 24, 2015 04:48 PM NON-TOBACCO USE INPATIENT [facility] Oct 01, 2014 07:15 PM NON-TOBACCO USE INPATIENT [facility] Apr 10, 2005 01:20 PM HF V9 LIFETIME NON-SMOKER [facility] Nov 24, 2003 03:11 PM HF V9 LIFETIME NON-SMOKER [facility] Oct 07, 2002 02:26 PM HF V9 LIFETIME NON-SMOKER [facility] Advance Directives: All historical and current Section Date Range: From patient's date of to the date document was created. This section includes ALL of a patient's completed or amended [place] Advance and Rescinded Directives. The entries below indicate that a directive exists for the patient, but an actual copy is not included with this document. The data comes from all [place] facilities. Date Advance Directives Provider Source Sep 25, 2024 ADVANCE DIRECTIVE DISCUSSION ANTHONY IRVING [facility] Encounter Notes: All associated encounter notes This section contains the clinical notes associated to the Encounter. Date/Time Encounter Note(s) Provider Source Oct 23, 2024 03:57 PM NURSING NOTE: LOCAL TITLE: [facility] FOCUSED NURSING NOTE STANDARD TITLE: NURSING NOTE DATE OF NOTE: OCT 23, 2024@15:57 ENTRY DATE: OCT 23, 2024@15:57:33 AUTHOR: SHIMON SINCLAIR COSIGNER: URGENCY: STATUS: COMPLETED Length of home visit: 30 min Patient name: ROXI WINKLER Patient : Apr Date/Time of Visit: Vital Signs: Wt: WEIGHT: No values within 24 hours BP: BLOOD PRESSURE: Measurement DT BP 10/23/2024 15:54 120/62 Pulse: PULSE: Measurement DT PULSE 10/23/2024 15:54 78 Pulse Ox: 95 Resp: RESPIRATIONS: Measurement DT RESP 10/23/2024 15:54 18 Pain: PAIN SCORE: Measurement DT PAIN 10/23/2024 15:54 5 Temp: 98.5 F [36.9 C] (10/23/2024 15:54) Reason for visit: To assess hematoma= Do you have any pain now? Yes Possible pain behaviors: Wincing-guarding self Location: arm Intensity: Severity Scale (5) Acceptable/tolerable level for patient: Severity Scale (3) Cause (origin of pain): Fracture from a previous fall- Duration: comes and goes= Describe your pain: aches like a tooth ache at times Pain Affects: movement rest What makes it worse? movement What makes it better? rest and medication Current treatment: gabapentin Non-Pharmacological methods of pain used: slng- Medications: Does current treatment help pain? Yes Comments: Falls: Assist Devices: rollator Have you fallen since the last [facility] nurse visit? No If yes, date of fall: Other: Medications: Active and Recently Outpatient Medications (including Supplies): Active Outpatient Medications Status = 1) ALBUTEROL 90MCG (CFC-F) 200D ORAL INHL [...] 5LB WEIGHT GAIN IN 1 WEEK) 4) FINASTERIDE 5MG TAB TAKE ONE TABLET BY MOUTH DAILY FOR ACTIVE PROSTATE 5) GABAPENTIN 300MG CAP TAKE TWO CAPSULES BY MOUTH EVERY ACTIVE MORNING AND TAKE THREE CAPSULES EVERY EVENING AND TAKE THREE CAPSULES AT BEDTIME Indication: FOR NERVE PAIN 6) GLUCOSE SENSOR DEXCOM G7 USE SENSOR DIRECTED NEEDED ACTIVE Indication: FOR BLOOD SUGAR MONITORING 7) LIDOCAINE 5% 5IN X 6IN PATCH APPLY 2 PATCHES TO SKIN DAILY ACTIVE NEEDED FOR PAIN. (LEAVE ON 12 HOURS, THEN REMOVE FOR 12 HOURS) 8) METHOCARBAMOL 750MG TAB TAKE ONE TABLET BY MOUTH EVERY 6 ACTIVE HOURS NEEDED FOR MUSCLE SPASM 9) OLODATEROL/TIOTROP 2.5MCG/ACTUAT 60D INH INHALE 2 PUFFS BY ACTIVE MOUTH EVERY MORNING FOR BREATHING 10) PANTOPRAZOLE NA 40MG EC TAB TAKE ONE TABLET BY MOUTH DAILY ACTIVE TAKE ON AN EMPTY STOMACH. Indication: FOR STOMACH 11) SITAGLIPTIN (EQV-ZITUVIO) 100MG TAB TAKE ONE TABLET BY MOUTH ACTIVE DAILY -REPLACES ALOGLIPTIN. STORE IN ORIGINAL CONTAINER. OPENED BOTTLES MUST BE USED WITHIN 3 MONTHS Indication: FOR BLOOD SUGAR 12) TAMSULOSIN HCL 0.4MG CAP TAKE ONE CAPSULE BY MOUTH EVERY ACTIVE EVENING FOR PROSTATE 13) TRAMADOL HCL 50MG TAB TAKE ONE TABLET BY MOUTH EVERY MORNING ACTIVE AND TAKE ONE TABLET EVERY EVENING AND TAKE TWO TABLETS AT BEDTIME NEEDED (USE SPARINGLY. SUPPLY MUST LAST 30 DAYS. CAUSES IMPAIRMENT, RECOMMEND NOT TO DRIVE ON THIS MEDICATION.) Indication: FOR PAIN 14) VENLAFAXINE HCL 150MG 24HR SA CAP TAKE ONE CAPSULE BY MOUTH ACTIVE DAILY Indication: FOR CHRONIC PAIN Inactive Outpatient Medications Status = 1) GLUCOSE SENSOR DEXCOM G6 USE SENSOR DIRECTED DIRECTED NEEDED 2) METOPROLOL TARTRATE 100MG TAB TAKE ONE TABLET BY MOUTH TWICE A DAY Indication: FOR BLOOD PRESSURE/HEART Active Non-VA Medications Status = 1) Non-VA ASPIRIN 81MG EC TAB 81MG MOUTH DAILY ACTIVE 2) Non-VA NALOXONE NASAL RESCUE 4MG SOLN,SPRAY,NASAL ONE ACTIVE NOSTRIL ONLY 3) Non-VA OXYGEN GAS 3 LITERS NASAL CANNULA DAILY ACTIVE 19 Total Medications Are you taking any new medication (non-VA, over the counter, herbal medications)since the last [facility] visit? No Hemotoma to [facility]-appears to be about the same size- Reviewed labs results- Stated he has felt ok since last visit- No edema noted-shortness of breath about the same-oxygen in place at 3 l per [place]. Will call daughter to set up next appt. /angie/ SHIMON SINCLAIR RN Signed: 10/23/2024 16:16 SHIMON SINCLAIR-KAREND [facility]
--- OUTSIDE RECORDS SUMMARY | 2024-11-03 08:00 | XMS_ITS | Encounter Summary ---
Author Name [facility] [place] [facility] [place] [facility] [place] Address [address] [place] [address] Care Team Providers Care Customer Records Division Supervisor Name Role Phone LAURY KENYON Primary Care [...] ON [employer] Jun 03, 2017 [id number] ROXI WINKLER PATIENT [employer] [facility] (WNR) MEDICARE ADVANTAGE [facility] (WN) Sep 03, 2019 [id number] [phone] ROXI WINKLER JR PATIENT [employer] [facility] (WNR) MEDICARE ADVANTAGE [facility] (WNR) Sep 03, 2019 [id number] ROXI WINKLERA MCR (WNR) MEDICARE ADVANTAGE HUMAN A INSUR ANCE COM Apr 04, 2019 [id number] [phone] ROXI WINKLERA MCR (WNR) MEDICARE ADVANTAGE [facility] (WNR) Apr 03, 2019 [id number] [phone] ROXI WINKLERA MCR (WNR) MEDICARE ADVANTAGE MCR (WNR) Apr 03, 2019 [id number] [phone] ROXI WINKLERA MCR (WNR) MEDICARE ADVANTAGE [facility] (WNR) Apr 03, 2019 [id number] [phone] ROXI WINKLER JR PHARMACY PRESCRIPT ION NONE Jun 03, 2017 NONE [id number] [phone] ROXI WINKLER MEDICARE PART D (WNR) MEDICARE (M) PART D Sep 03, 2023 PART D [id number] ROXI WINKLER JR PATIENT Selected Encounter This section includes the information on record at [place] for the Encounter. Date/Time Encounter Type Encounter Description Reason Provider Source Nov 03, 2024 12:00 PM HHS/HOSPICE OF RN EA 15 MIN PC Nursing (RN / LP) ICD-10-CM J44.9 Chronic obstructive pulmonary disease, unspecified SHIMON SINCLAIR Adela Encounter Template Text not used by [place] Assessments - Encounter Diagnoses This section includes the primary and secondary diagnoses documented for the Encounter. Date/Time Primary/Secondary Diagnosis Diagnosis Name Provider Source Nov 03, 2024 05:14 PM PRIMARY Chronic obstructive pulmonary disease, unspecified SHIMON SINCLAIR [facility] Nov 03, 2024 05:14 PM SECONDARY Essential (primary) hypertension SHIMON SINCLAIR [facility] Nov 03, 2024 05:14 PM SECONDARY Type 2 diabetes mellitus without complications SHIMON SINCLAIR [facility] Plan of Treatment: Future Appointments (+ 6 months) and Future Tests (+/- 45 days) The Plan of Treatment section includes future care activities for the patient from all [place] treatmentfacilities. This section includes future appointments and future orders which are active, pending or scheduled. Future Appointments This section includes appointments that were scheduled to occur 6 months from the date of the Encounter, up to a maximum of 20 appointments. The data comes from all [place] treatment facilities. Appointment Date/Time Appointment Type Appointme nt Facility Name Nov 18, 2024 08:00 AM AM[place]ULATORY - NONE [place] [facility] Nov 21, 2024 09:00 AM AMBULATORY - MEDICINE [place] [facility] Nov 21, 2024 11:20 AM AMBULATORY - MEDICINE [place]AT[place] [facility] Dec 11, 2024 10:00 AM [facility] [facility] Dec 23, 2024 01:30 PM AM[facility]ULATORY - [facility]GERY [place] [facility] January 06, 2025 10:30 AM AMBULATORY - REHAB MEDICIN E [facility] January 06, 2025 02:00 PM AMBULATORY - SURGERY [place] [facility] January 30, 2025 11:00 AM AMBULATORY - NONE [place] [facility] Feb 17, 2025 02:00 PM [facility] Apr 14, 2025 10:30 AM AMBULATORY - MEDICINE [facility] Lab Results: +/- 30 days of the encounter This section includes the Chemistry and Hematology Lab Results on record with [place] for the patient. Radiology Reports and Pathology Reports are provided separately, in subsequent sections. Lab Results This section contains the Chemistry/Hematology Results that were resulted 30 days before or 30 daysafter the date of the Encounter. Date/Time Source Result Type Result - Unit Interpretation Reference Range Specimen Type Comment Nov 21, 2024 12:38 PM [facility] PANEL 1 PLASMA Specimen Type: PLASMA Comment: [...] Nov 21, 2024 12:28 PM Reporting Lab: [address] [id number] Performing Lab: [address] [address] CREATININE 1.17 mg/dL 0.72-1.25 UREA NITROGEN 15 mg/dL 9-25 GLUCOSE 282 mg/dL H 74-100 SODIUM 133 mmol/L L 136-145 POTASSIUM 4.1 mmol/L 3.5-5.1 CHLORIDE 89 mmol/L L 98-107 CO2 38 mmol/L H 22-29 CALCIUM 9.4 mg/dL 8.4-10.2 ANION GAP 6 meq/L 3-19 eGFR (CKD-EPI) 67 Oct 17, 2024 03:32 PM [facility] GLYCOHEMOGLOBIN BLOOD Specimen Type: BLOOD Comment: [place] guidelines for A1c interpretation: Glycemic control targets are based on Shared Decision Making between clinicians and patients. Criteria used to establish an A1c target recommendation can be found at https://www.sd.gov/qualityandpatientsafety/ and include the use of result accuracy [...] 8.73 and 9.27. Ref: https://ngsp.org/CAPdata.asp. The in-house flck.me D-100 analyzer has a historical CV <= 2%. Contact the laboratory for further performance characteristics of this assay. Ordering Provider: LAURY KENYON Report Released Date/Time: Oct 15, 2024 04:37 PM Reporting Lab: [address] [address] Performing Lab: [address] [id number] GLYCOHEMOGLOBIN 7.3 H 4.4-5.6 Oct 17, 2024 03:32 PM [facility] 25-OH VITAMIN D SERUM Specime n [...] Oct 15, 2024 04:37 PM Reporting Lab: [address] [address] Performing Lab: [address] [address] 25-OH VITAMIN D 28.3 ng/mL 20.0-50.0 Oct 17, 2024 03:32 PM [facility] BNP (MyApp[employer]) PLASMA Specimen Type: PLASMA Comment: BNP results less than or equal to 100 pg/ml are in home sales representative of normal values in patients without CHF. BNP results greater than 100 pg/ml are considered abnormal and suggestive of CHF. Higher BNP concentrations in the first 72 hours after Acute Coronary Syndrome are associated with an increased risk of , myocardial infarction and CHF. Ordering Provider: LAURY KENYON Report Released Date/Time: Oct 15, 2024 04:37 PM Reporting Lab: [place] [id number] Performing Lab: [place] [id number] BNP (WOODS) 101 pg/mL H 0-100 Oct 14, 2024 10:53 AM [facility] HIV-1 VIRAL LOAD (PCR) PLASMA Speci men Type: PLASMA Comment: HIV-1 RNA RT-PCR (HIV-1 VIRAL LOAD (PCR)) assay is performed by the [employer] [facility] [place] This test does not rule [...] Oct 14, 2024 10:21 AM Reporting Lab: [place] [id number] Performing Lab: [place] [id number] .HIV-1 VIRAL LOAD (COPIES/ML) Not Detected Not Detected Oct 14, 2024 10:53 AM [facility] CD4/CD8 RATIO PROFILE BLOOD Specim en Type: BLOOD No comment entered. Ordering Provider: HILARY FLANAGAN Report Released Date/Time: Oct 14, 2024 10:21 AM Reporting Lab: [address] [address] Performing Lab: [address] [address] .% CD 4 Pos. Lymph. 29.9 L 30.8-58.5 .% CD 8 Pos. Lymph. 37.8 H 12.0-35.5 .CD 4 / CD 8 Ratio 0.79 L 0.92-3.72 .Absolute CD 4 Festus 299 /uL L 359-1519 .Absolute CD 8 Suppressor 378 /uL 109-89 7 Social History: Smoking Status (Most current) and Tobacco Use (All prior to encounter date) This section includes the most current, and the historical, smoking and tobacco- related health factors from the [place] facility where the Encounter took place. Current Smoking Status This section includes the most current smoking, or tobacco-related health factor, from the [place] facility where the Encounter took place. Date/Time Current Smoking Status Comment Facil ity May 05, 2016 01:12 AM NON-TOBACCO USE INPATIENT [facility] Tobacco Use History This section includes a history of the smoking, or tobacco-related health factors, that were collected on or before the date of the Encounter. The data comes from the [place] facility where the Encounter took place. Date/Time Smoking Status/Tobacco Use Comment F acility Nov 24, 2015 04:48 PM NON-TOBACCO USE INPATIENT [facility] Oct 01, 2014 07:15 PM NON-TOBACCO USE INPATIENT [facility] Apr 10, 2005 01:20 PM HF V9 LIFETIME NON-SMOKER [facility] Nov 24, 2003 03:11 PM HF V9 LIFETIME NON-SMOKER [facility] Oct 07, 2002 02:26 PM HF V9 LIFETIME NON-SMOKER [facility] Advance Directives: All historical and current Section Date Range: From patient's date of to the date document was created. This section includes ALL of a patient's completed or amended [place] Advance and Rescinded Directives. The entries below indicate that a directive exists for the patient, but an actual copy is not included with this document. The data comes from all [place] facilities. Date Advance Directives Provider Source Sep 25, 2024 ADVANCE DIRECTIVE DISCUSSION ANTHONY IRVING [facility] Encounter Notes: All associated encounter notes This section contains the clinical notes associated to the Encounter. Date/Time Encounter Note(s) Provider Source Nov 03, 2024 05:09 PM [facility] NURSING NOTE: LOCAL TITLE: [facility] NURSING PROGRESS STANDARD TITLE: [facility] NURSING NOTE DATE OF NOTE: NOV 03, 2024@17:09 ENTRY DATE: NOV 03, 2024@17:09:57 AUTHOR: SHIMON SINCLAIR EXP COSIGNER: URGENCY: STATUS: COMPLETED [facility] FOLLOW-UP NOTE Date of visit: November Time spent with patient: 60 min Date of admission to [facility]: Patient Identified by: Name, SS, , Facial [...] NASAL CANNULA DAILY ACTIVE 20 Total Medications Qlic-xha-wrxkjjc products used by patient: None per daughter- Medications/OTC/supplements started and/or discontinued since last [facility] visit. Per CPRS medication record- Medication list [...] Sleeping Arrangements No Inadequate Ventilation No Inadequate [place] No Unsafe Storage of Supplies/Equipment No Presence of Infestation of Pests Yes Functioning Smoke Alarm Present No Fire Extinguisher Present Yes Fire Exit Plan No Use of Restraints Yes Home is adaptable for Home Care No Smoking materials present in the home N/A Pets secured in an area away from the area of care provision No Additional safety concerns: Temperature: Temperature: Pulse: Pulse: 88 Pulse Oximetry: 95 Respirations: Respirations: 18 Blood Pressure: Blood Pressure: 120/70 Pain: Pain: 3-meds were taken about an hour prior to visit- OXYGEN IN THE HOME: Yes: Patient Patient [...] require immediate medication attention (s/s of acute NE, palpitations, ect...), Notify [facility] of new or [...] right side of his abdomen-says it is painful-stated he has a lot of pain with it last night and could not get comfortable-appears to be larger than last visit- MOBILITY: Patient is ambulatory with assistive devices: [...] teach on HTN COPD CHF Diabetes BPH did not schedule next visit-will wait on outcome at the ED PCP, Has the large hematoma on the lower right side of his abdomen-says it is painful-stated he has a lot of pain with it last night and could not get comfortable-appears to be larger than last visit- Advised that he needs to go to the ED to have it looked at-he finally agreed- stated she would call daughter to take him- /es/ SHIMON SINCLAIR RN Signed: 11/03/2024 17:14 Receipt Acknowledged By: 11/04/2024 08:09 /angie/ LAURY KENYON APRN ADVANCED PRACTICE REGISTERED NURSE, [facility] SHIMON SINCLAIR-CDD [facility]
--- OUTSIDE RECORDS SUMMARY | 2024-11-11 06:47 | XMS_ITS | Encounter Summary ---
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 Name Role Phone LAURY KENYON [...] ON [employer] Jun 03, 2017 [id number] ROXI WINKLER PATIENT HUMANA [facility] (WNR) MEDICARE ADVANTAGE [facility] (WNR) Sep 03, 2019 [id number] [phone] ROXI WINKLER JR PATIENT HUMANA [facility] (WNR) MEDICARE ADVANTAGE [facility] (WNR) Sep 03, 2019 [id number] [phone] ROXI WINKLERA MCR (WNR) MEDICARE ADVANTAGE HUMAN A INSUR ANCE COM Apr 04, 2019 [id number] ROXI WINKLERA MCR (WNR) MEDICARE ADVANTAGE [facility] (WNR) Apr 03, 2019 [id number] ROXI WINKLERA MCR (WNR) MEDICARE ADVANTAGE MCR (WNR) Apr 03, 2019 [id number] ROXI WINKLERA MCR (WNR) MEDICARE ADVANTAGE MCR (WNR) Apr 03, 2019 [id number] ROXI WINKLER JR PHARMACY PRESCRIPT ION NONE Jun 03, 2017 NONE [id number] [phone] ROXI WINKLER MEDICARE PART D (WNR) MEDICARE (M) PART D Sep 03, 2023 PART D [id number] [phone] ROXI WINKLER JR PATIENT Selected Encounter This section includes the information on record at [place] for the Encounter. Date/Time Encounter Type Encounter Description Reason Pro vider Source Nov 11, 2024 10:47 AM Outpatient Encounter ADMIN PAT ACTIVTIES (MASNONCT) IHE Encounter Template Text not used by [place] Plan of Treatment: Future Appointments (+ 6 months) and Future Tests (+/- 45 days) The Plan of Treatment section includes future care activities for the patient from all [place] treatmentfacilities. This section includes future appointments and future orders which are active, pending or scheduled. Future Appointments This section includes appointments that were scheduled to occur 6 months from the date of the Encounter, up to a maximum of 20 appointments. The data comes from all [place] treatment facilities. Appointment Date/Time Appointment Type Appointme nt Facility Name Nov 18, 2024 08:00 AM AMBULATORY - NONE [place] [facility] Nov 21, 2024 09:00 AM AMBULATORY - [facility]ICINE [facility] Nov 21, 2024 11:20 AM [facility]ORY - [facility]ICINE [facility] Dec 11, 2024 10:00 AM AMBULATORY - SURGERY L[place] GTON [facility] Dec 23, 2024 01:30 PM AMBULATORY - SURGERY [place] [facility] January 06, 2025 10:30 AM AMBULATORY - REHAB MEDICIN E CELESTINO [facility] January 06, 2025 02:00 PM AMBULATORY - SURGERY TAWNY SERRANO [facility] January 30, 2025 11:00 AM AMBULATORY - NONE STEPHEN Barnes [facility] Feb 17, 2025 02:00 PM AMBULATORY - SURGERY TAWNY SERRANO [facility] Apr 14, 2025 10:30 AM AMBULATORY - MEDICINE [facility] Lab Results: +/- 30 days of [...] Type Comment Nov 21, 2024 12:38 PM [facility] N PANEL 1 PLASMA Specimen Type: [...] Nov 21, 2024 12:28 PM Reporting Lab: [address] [address] Performing Lab: [address] [address] CREATININE 1.17 mg/dL 0.72-1.25 UREA NITROGEN 15 mg/dL 9-25 GLUCOSE 282 mg/dL H 74-100 SODIUM 133 mmol/L L 136-145 POTASSIUM 4.1 mmol/L 3.5-5.1 CHLORIDE 89 mmol/L L 98-107 CO2 38 mmol/L H 22-29 CALCIUM 9.4 mg/dL 8.4-10.2 ANION GAP 6 meq/L 3-19 eGFR (CKD-EPI) 67 Oct 17, 2024 03:32 PM [facility] GLYCOHEMOGLOBIN BLOOD Specimen Type: BLOOD Comment: [place] guidelines for A1c interpretation: Glycemic control targets are based on Shared Decision Making between clinicians and patients. Criteria used to establish an A1c target recommendation can be found at https://www.[place].gov/qualityandpatientsafety/ and include the use of result accuracy [...] 8.73 and 9.27. Ref: https://ngsp.org/CAPdata.asp. The in-house [employer] D-100 analyzer has a historical CV <= 2%. Contact the laboratory for further performance characteristics of this assay. Ordering Provider: LAURY KENYON Report Released Date/Time: Oct 15, 2024 04:37 PM Reporting Lab: [address] [address] Performing Lab: [address] [address] GLYCOHEMOGLOBIN 7.3 H 4.4-5.6 Oct 17, 2024 03:32 PM [facility] 25-OH VITAMIN D SERUM Specime [...] Oct 15, 2024 04:37 PM Reporting Lab: [address] [address] Performing Lab: [address] [address] 25-OH VITAMIN D 28.3 ng/mL 20.0-50.0 Oct 17, 2024 03:32 PM [facility] BNP (WOODS) PLASMA Specimen Type: PLASMA Comment: BNP results less than or equal to 100 pg/ml are strategic partnership representative of normal values in patients without CHF. BNP results greater than 100 pg/ml are considered abnormal and suggestive of CHF. Higher BNP concentrations in the first 72 hours after Acute Coronary Syndrome are associated with an increased risk of , myocardial infarction and CHF. Ordering Provider: LAURY KENYON Report Released Date/Time: Oct 15, 2024 04:37 PM Reporting Lab: [address] [address] Performing Lab: [address] [address] BNP (WOODS) 101 pg/mL H 0-100 Oct 14, 2024 10:53 AM [facility] HIV-1 VIRAL LOAD (PCR) PLASMA Speci men Type: PLASMA Comment: HIV-1 RNA RT-PCR (HIV-1 VIRAL LOAD (PCR)) assay is performed by the [employer] cazares. This test does not rule out the presence of HIV-1 at less than 20 copies/mL. Quantitative range is 20 (1.30 Log (Copies/mL)) - 10,000,000 (7.00 Log (Copies/mL)) copies/mL. This test should only be used for patients with documented HIV-1infection. The [facility] has verified the performance characteristics of this test. This test is FDA approved. Ordering Provider: HILARY FLANAGAN Report Released Date/Time: Oct 14, 2024 10:21 AM Reporting Lab: [facility] [address] [place] [address] Performing Lab: [address] [address] .HIV-1 VIRAL LOAD (COPIES/ML) Not Detected Not Detected Oct 14, 2024 10:53 AM [facility] CD4/CD8 RATIO PROFILE BLOOD Specim en Type: BLOOD No comment entered. Ordering Provider: HILARY FLANAGAN Report Released Date/Time: Oct 14, 2024 10:21 AM Reporting Lab: [address] [address] Performing Lab: [address] [address] .% CD 4 Pos. Lymph. 29.9 L 30.8-58.5 .% CD 8 Pos. Lymph. 37.8 H 12.0-35.5 .CD 4 / CD 8 Ratio 0.79 L 0.92-3.72 .Absolute CD 4 [place] 299 /uL L 359-1519 .Absolute CD 8 Suppressor 378 /uL 109-89 7 Social History: Smoking Status (Most current) and Tobacco Use (All prior to encounter date) This section includes the most current, and the historical, smoking and tobacco- related health factors from the [place] facility where the Encounter took place. Current Smoking Status This section includes the most current smoking, or tobacco-related health factor, from the [place] facility where the Encounter took place. Date/Time Current Smoking Status Comment Anita bartholomew May 05, 2016 01:12 AM NON-TOBACCO USE INPATIENT [facility] Tobacco Use History This section includes a history of the smoking, or tobacco-related health factors, that were collected on or before the date of the Encounter. The data comes from the [place] facility where the Encounter took place. Date/Time [...] ALL of a patient's completed or amended [place] Advance and Rescinded Directives. The entries below indicate that a directive exists for the patient, but an actual copy is not included with this document. The data comes from all [place] facilities. Date Advance Directives Provider Source Sep 25, 2024 ADVANCE DIRECTIVE DISCUSSION ANTHONY IRVING [facility] Radiology Reports: +/- 30 days of the encounter Radiology Reports For cases when an order for radiology services may have been completed prior to the date of the Encounter, the report list includes the Radiology Reports that were completed up to 30 days before dateof the Encounter. For cases when an order for radiology services may have been completed after the date of the Encounter, the report list also includes the Radiology Reports that were completed up to30 days after date of the Encounter. The data comes from all [place] treatment facilities. Date/Time Radiology Report Provider Source Dec 11, 2024 10:15 AM FOOT-LEFT 3 OR MOR E VIEWS: ROXI WINKLER [id number] -1955 M Exm Date: DEC 11, 2024@10:15 Req Phys: MARCUS MONTELONGO Loc: [place] P[place]/PROCEDURE/ATT1/LD (Req Img Loc: [facility] RADIOLOGY Service: Unknown [facility] [place] [address] (Case [id number] COMPLETE)FOOT-LEFT 3 OR MORE VIEWS (RAD Detailed) CPT:79710 Reason for Study: trauma left 1st/2nd toes Clinical History: r/o Fx Report Status: Verified Date Reported: DEC 12, 2024 Date Verified: DEC 12, 2024 Student Development Dean E-Sig: Report: FOOT-LEFT 3 OR MORE VIEWS, 12/11/2024 10:27 AM EDT INDICATION: trauma left 1st/2nd toes COMPARISON: January 13, 2015 Impression: No acute fracture or malalignment. 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 Calcaneal plantar and Achilles enthesophytes. Mild talonavicular joint degenerative change. Talar beak. No obvious tarsal coalition. Vascular calcifications. Primary Diagnostic Code: NO ALERT REQUIRED Primary Interpreting Staff: ZBIGNIEW JULIAN, Staff Physician Verified by scientific informatics leader for ZBIGNIEW JULIAN /ZBIGNIEW HARVEY [facility] Encounter Notes: All associated encounter notes This section contains the clinical notes associated to the Encounter. Date/Time Encounter Note(s) Provider Source Nov 05, 2024 10:47 AM NONVA NOTE: LOCAL TITLE: OUTSIDE MEDICAL RECORD-FEE OUTPATIENT STANDARD TITLE: NONVA NOTE DATE OF NOTE: NOV 05, 2024@10:47 ENTRY DATE: NOV 11, 2024@10:47:57 AUTHOR: JAXSON REYES EXP COSIGNER: URGENCY: STATUS: COMPLETED The scanned image may be viewed in [employer]. /angie/ JAXSON REYES CRUDE UNIT OPERATOR Signed: 11/11/2024 10:48 [facility]
--- OUTSIDE RECORDS SUMMARY | 2024-11-14 01:58 | XMS_ITS ---
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 Name Role Phone LAURY KENYON Primary [...] ON [employer] Jun 03, 2017 [id number] ROXI WINKLER PATIENT HUMANA [facility] (WNR) MEDICARE ADVANTAGE [facility] (WNR) Sep 03, 2019 [id number] [phone] ROXI WINKLER JR PATIENT HUMANA [facility] (WNR) MEDICARE ADVANTAGE [facility] (WNR) Sep 03, 2019 [id number] ROXI WINKLERA MCR (WNR) MEDICARE ADVANTAGE HUMAN A INSUR ANCE COM Apr 04, 2019 [id number] ROXI WINKLERA MCR (WNR) MEDICARE ADVANTAGE [facility] (WNR) Apr 03, 2019 [id number] ROXI WINKLER [employer]NA MCR (WNR) MEDICARE ADVANTAGE MCR (WNR) Apr 03, 2019 [id number] ROXI WINKLERA MCR (WNR) MEDICARE ADVANTAGE MCR (WNR) Apr 03, 2019 [id number] ROXI WINKLER JR PHARMACY PRESCRIPT ION NONE Jun 03, 2017 NONE [id number] [phone] ROXI WINKLER MEDICARE PART D (WNR) MEDICARE (M) PART D Sep 03, 2023 PART D [id number] ROXI WINKLER JR PATIENT Selected Encounter This section includes the information on record at [place] for the Encounter. Date/Time Encounter Type Encounter Description Reason Pro vider Source Nov 14, 2024 05:58 AM Outpatient Encounter ADMIN PAT ACTIVTIES (MASNONCT) IHE Encounter Template Text not used by [place] Plan of Treatment: Future Appointments (+ 6 months) and Future Tests (+/- 45 days) The Plan of Treatment section includes future care activities for the patient from all [place] treatmentfacilities. This section includes future appointments and future orders which are active, pending or scheduled. Future Appointments This section includes appointments that were scheduled to occur 6 months from the date of the Encounter, up to a maximum of 20 appointments. The data comes from all [place] treatment facilities. Appointment Date/Time Appointment Type Appointme nt Facility Name Nov 18, 2024 08:00 AM AMBULATORY - NONE [place] [facility] Nov 21, 2024 09:00 AM AMBULATORY - MEDICINE [facility] Nov 21, 2024 11:20 AM AMBULATORY - MEDICINE [facility] Dec 11, 2024 10:00 AM AMBULATORY - SURGERY L[place] G[place] [facility] Dec 23, 2024 01:30 PM AMBULATORY - SURGERY [place] [facility] January 06, 2025 10:30 AM AMBULATORY - REHAB MEDICIN E CELESTINO [facility] January 06, 2025 02:00 PM AMBULATORY - SURGERY TAWNY SERRANO [facility] January 30, 2025 11:00 AM AMBULATORY - NONE STEPHEN Barnes [facility] Feb 17, 2025 02:00 PM AMBULATORY - SURGERY TAWNY SERRANO [facility] Apr 14, 2025 10:30 AM AMBULATORY - MEDICINE [facility] Lab Results: +/- 30 days of [...] Nov 21, 2024 12:28 PM Reporting Lab: [address] [address] Performing Lab: [address] [address] CREATININE 1.17 mg/dL 0.72-1.25 UREA NITROGEN 15 mg/dL 9-25 GLUCOSE 282 mg/dL H 74-100 SODIUM 133 mmol/L L 136-145 POTASSIUM 4.1 mmol/L 3.5-5.1 CHLORIDE 89 mmol/L L 98-107 CO2 38 mmol/L H 22-29 CALCIUM 9.4 mg/dL 8.4-10.2 ANION GAP 6 meq/L 3-19 eGFR (CKD-EPI) 67 Oct 17, 2024 03:32 PM [facility] GLYCOHEMOGLOBIN BLOOD Specimen Type: BLOOD Comment: [place] guidelines for A1c interpretation: Glycemic control targets are based on Shared Decision Making between clinicians and patients. Criteria used to establish an A1c target recommendation can be found at https://www.[place].gov/qualityandpatientsafety/ and include the use of result accuracy [...] 8.73 and 9.27. Ref: https://ngsp.org/CAPdata.asp. The in-house [employer] D-100 analyzer has a historical CV <= 2%. Contact the laboratory for further performance characteristics of this assay. Ordering Provider: LAURY KENYON Report Released Date/Time: Oct 15, 2024 04:37 PM Reporting Lab: [address] [address] Performing Lab: [address] [address] GLYCOHEMOGLOBIN 7.3 H 4.4-5.6 Oct 17, 2024 03:32 PM [facility] 25-OH VITAMIN D SERUM [...] Oct 15, 2024 04:37 PM Reporting Lab: [address] [address] Performing Lab: [address] [address] 25-OH VITAMIN D 28.3 ng/mL 20.0-50.0 Oct 17, 2024 03:32 PM [facility] BNP (WOODS) PLASMA Specimen Type: PLASMA Comment: BNP results less than or equal to 100 pg/ml are representative government relations of normal values in patients without CHF. BNP results greater than 100 pg/ml are considered abnormal and suggestive of CHF. Higher BNP concentrations in the first 72 hours after Acute Coronary Syndrome are associated with an increased risk of , myocardial infarction and CHF. Ordering Provider: LAURY KENYON Report Released Date/Time: Oct 15, 2024 04:37 PM Reporting Lab: [address] [address] Performing Lab: [address] [address] BNP (WOODS) 101 pg/mL H 0-100 Social History: Smoking Status (Most current) and Tobacco Use (All prior to encounter date) This section includes the most current, and the historical, smoking and tobacco- related health factors from the [place] facility where the Encounter took place. Current Smoking Status This section includes the most current smoking, or tobacco-related health factor, from the [place] facility where the Encounter took place. Date/Time Current Smoking Status Comment Anita bartholomew May 05, 2016 01:12 AM NON-TOBACCO USE INPATIENT [facility] Tobacco Use History This section includes a history of the smoking, or tobacco-related health factors, that were collected on or before the date of the Encounter. The data comes from the [place] facility where the Encounter took place. Date/Time Smoking Status/Tobacco Use Comment F acility Nov 24, 2015 04:48 PM NON-TOBACCO USE INPATIENT [facility] Oct 01, 2014 07:15 PM NON-TOBACCO USE INPATIENT [facility] Apr 10, 2005 01:20 PM HF V9 LIFETIME NON-SMOKER [facility] Nov 24, 2003 03:11 PM HF V9 LIFETIME NON-SMOKER [facility] Oct 07, 2002 02:26 PM HF V9 LIFETIME NON-SMOKER [facility] Advance Directives: All historical and current Section Date Range: From patient's date of to the date document was created. This section includes ALL of a patient's completed or amended [place] Advance and Rescinded Directives. The entries below indicate that a directive exists for the patient, but an actual copy is not included with this document. The data comes from all [place] facilities. Date Advance Directives Provider Source Sep 25, 2024 ADVANCE DIRECTIVE DISCUSSION ANTHONY IRVING [facility] Radiology Reports: +/- 30 days of [...] the Encounter. The data comes from all [place] treatment facilities. Date/Time Radiology Report Provider Source Dec 11, 2024 10:15 AM FOOT-LEFT 3 OR MOR E VIEWS: ROXI WINKLER [facility] [id number] -[id number] M Exm Date: DEC 11, 2024@10:15 Req Phys: MARCUS MONTELONGO Loc: [place] P[place]/PROCEDURE/ATT1/LD (Req Img Loc: [facility] RADIOLOGY Service: [place] [address] (Case [id number] COMPLETE)FOOT-LEFT 3 OR MORE VIEWS (RAD Detailed) CPT:88983 Reason for Study: trauma left 1st/2nd toes Clinical History: r/o Fx Report Status: Verified Date Reported: DEC 12, 2024 Date Verified: DEC 12, 2024 Insurance Manager E-Sig: Report: FOOT-LEFT 3 OR MORE VIEWS, [...] Staff: ZBIGNIEW JULIAN, Staff Physician Verified by grinder chipper for ZBIGNIEW JULIAN /ZBIGNIEW HARVEY [facility] Encounter Notes: All associated encounter notes This section contains the clinical notes associated to the Encounter. Date/Time Encounter Note(s) Provider Source Nov 14, 2024 09:21 AM ADDENDUM: LOCAL TITLE: Addendum STANDARD TITLE: ADDENDUM DATE OF NOTE: NOV 14, 2024@09:21:53 ENTRY DATE: NOV 14, 2024@09:21:54 AUTHOR: LAURY KENYON EXP COSIGNER: URGENCY: STATUS: COMPLETED I concur. /angie/ LAURY KENYON APRN ADVANCED PRACTICE REGISTERED NURSE, HBPC Signed: 11/14/2024 09:22 Receipt Acknowledged By: 11/14/2024 09:55 /es/ Rosanna Cool RN, MSN, WOCN ACADEMIC AFFAIRS COORDINATOR [employer] --- Original Document --- 11/14/24 COMMUNITY CARE-REQUEST FOR SERVICE NOTE: Request for Services (RFS) documentation has been scanned to [facility] Consult: COMMUNITY WEIG-BLYB-OWO-SKILLED HOME HEALTH Consult No: [id number] Date scanned: Nov A Request for Service (RFS) form [id number] has been received which includes the following: Care Requested:CONTINUATION OF CARE ICD-10 Dx code: M79.81 Date [facility] received request: Nov Date service required: Oct Requesting Community Provider Information: Name of Ordering Provider: [place] [facility], State: [address] [place] [address] /es/ FLORA LORA Signed: 11/14/2024 06:00 Receipt Acknowledged By: 11/14/2024 09:21 /angie/ LAURY KENYON APRN ADVANCED PRACTICE REGISTERED NURSE, LAURY BRASHERYancy [facility] Nov 14, 2024 05:58 AM NONVA NOTE: LOCAL TITLE: COMMUNITY CARE-REQUEST FOR SERVICE NOTE STANDARD TITLE: NONVA NOTE DATE OF NOTE: NOV 14, 2024@05:58 ENTRY DATE: NOV 14, 2024@05:58:56 AUTHOR: FLORA BEASLEY EXP COSIGNER: URGENCY: STATUS: COMPLETED COMMUNITY CARE-REQUEST FOR SERVICE NOTE Has ADDENDA Request for Services (RFS) documentation has been scanned to [facility] Consult: COMMUNITY LREB-ORMY-XAU-SKILLED HOME HEALTH Consult No: [id number] Date scanned: Nov A Request for Service (RFS) form [id number] has been received which includes the following: Care Requested:CONTINUATION OF CARE ICD-10 Dx code: M79.81 Date VA received request: Nov Date service required: Oct Requesting Community Provider Information: Name of Ordering Provider: Widemile [facility], State: [address] [place] [address] /es/ FLORA LORA Signed: 11/14/2024 06:00 Receipt Acknowledged By: 11/14/2024 09:21 /es/ LAURY KENYON APRN ADVANCED PRACTICE REGISTERED NURSE, RORY 11/14/2024 ADDENDUM STATUS: COMPLETED I concur. /es/ LAURY KENYON APRN ADVANCED PRACTICE REGISTERED NURSE, HBBRAXTON Signed: 11/14/2024 09:22 Receipt Acknowledged By: 11/14/2024 09:55 /es/ Rosanna Cool RN, MSN, WOCN ACADEMIC AFFAIRS COORDINATOR [employer] 11/14/2024 ADDENDUM STATUS: COMPLETED Due to the timing of 's recent hospitalization and 's home health certification period, [place] had to be discharged from home health agency. [place] was receiving PT prior to admission to hospital. Home health agency also recommending: SN chronic bilateral wounds to LE and disease education/management For [place] to continue to have home health services a new EXTENDED CARE-SKILLED HOME HEALTH OUTPATIENT will need to be placed. Provider [facility] on previous note for 3. /es/ Rosanna Cool RN, MSN, WOCN ACADEMIC AFFAIRS COORDINATOR [employer] Signed: 11/14/2024 09:56 FLORA BEASLEY-MAURA [facility]
--- OUTSIDE RECORDS SUMMARY | 2024-11-21 05:00 | XMS_ITS | Encounter Summary ---
Author Name [facility] [place] Organization [facility] [place] Address [address] [place] [address] Care Team Providers Care Chief Mechanical Officer Name Role Phone LAURY KENYON Primary [...] ON [employer] Jun 03, 2017 [id number] ROXI WINKLER PATIENT [employer] [facility] (WNR) MEDICARE ADVANTAGE [facility] (WN) Sep 03, 2019 [id number] [phone] ROXI WINKLER JR PATIENT [employer] [facility] (WNR) MEDICARE ADVANTAGE [facility] (WNR) Sep 03, 2019 [id number] ROXI WINKLERA MCR (WNR) MEDICARE ADVANTAGE HUMAN A INSUR ANCE COM Apr 04, 2019 [id number] ROXI WINKLERA MCR (WNR) MEDICARE ADVANTAGE [facility] (WNR) Apr 03, 2019 [id number] ROXI WINKLERA MCR (WNR) MEDICARE ADVANTAGE [facility] (WNR) Apr 03, 2019 [id number] ROXI WINKLERA MCR (WNR) MEDICARE ADVANTAGE [facility] (WNR) Apr 03, 2019 [id number] ROXI WINKLER JR PHARMACY PRESCRIPT ION NONE Jun 03, 2017 NONE [id number] ROXI WINKLER MEDICARE PART D ([place]) MEDICARE (M) PART D Sep 03, 2023 PART D [id number] ROXI WINKLER JR PATIENT Selected Encounter This section includes the information on record at [place] for the Encounter. Date/Time Encounter Type Encounter Description Reason Provider Source Nov 21, 2024 09:00 AM OFFICE O/P EST HI 40 MIN CARDIOLOGY ICD-10-CM I48.0 Paroxysmal atrial fibrillation TK LUDWIG Encounter Template Text not used by [place] Assessments - Encounter Diagnoses This section includes the primary and secondary diagnoses documented for the Encounter. Date/Time Primary/Secondary Diagnosis Diagnosis Name Provider Source Nov 21, 2024 09:28 AM PRIMARY Paroxysmal atrial fibrillation TK LUDWIG [facility] Nov 21, 2024 09:28 AM SECONDARY Chronic diastolic (congestive) heart failure TK LUDWIG [facility] Nov 21, 2024 09:28 AM SECONDARY Essential (primary) hypertension TK LUDWIG [facility] Nov 21, 2024 09:28 AM SECONDARY longterm (current) use of anticoagulants TK LUDWIG [facility] Nov 21, 2024 09:28 AM SECONDARY Unspecified atrial flutter TK LUDWIG [facility] Plan of Treatment: Future Appointments (+ 6 months) and Future Tests (+/- 45 days) The Plan of Treatment section includes future care activities for the [facility] This section includes future appointments and future orders which are active, pending or scheduled. Future Appointments This section includes appointments that were scheduled to occur 6 months from the date of the Encounter, up to a maximum of 20 appointments. The data comes from all [place] treatment facilities. Appointment Date/Time Appointment Type Appointme nt Facility Name Dec 11, 2024 10:00 AM AMBULATORY - [facility]GERY [facility] [facility] Dec 23, 2024 01:30 PM AMBULATORY - SURGERY [place] [facility] January 06, 2025 10:30 AM AMBULATORY - [facility] January 06, 2025 02:00 PM [facility] January 30, 2025 11:00 AM [facility] - NONE [facility] Feb 17, 2025 02:00 [facility] Apr 14, 2025 10:30 AM AMBULATORY - MEDICINE [facility] Lab Results: +/- 30 days of the encounter This section includes the Chemistry and Hematology Lab Results on record with [place] for the patient. Radiology Reports and Pathology Reports are provided separately, in subsequent sections. Lab Results This section contains the Chemistry/Hematology Results that were resulted 30 days before or 30 daysafter the date of the Encounter. Date/Time Source Result Type Result - Unit Interpretation Reference Range Specimen Type Comment Nov 21, 2024 12:38 PM [facility] N PANEL 1 PLASMA Specimen Type: PLASMA [...] Nov 21, 2024 12:28 PM Reporting Lab: [address] [id number] Performing Lab: [address] [id number] CREATININE 1.17 mg/dL 0.72-1.25 UREA NITROGEN 15 mg/dL 9-25 GLUCOSE 282 mg/dL H 74-100 SODIUM 133 mmol/L L 136-145 POTASSIUM 4.1 mmol/L 3.5-5.1 CHLORIDE 89 mmol/L L 98-107 CO2 38 mmol/L H 22-29 CALCIUM 9.4 mg/dL 8.4-10.2 ANION GAP 6 meq/L 3-19 eGFR (CKD-EPI) 67 Social History: Smoking Status (Most current) and Tobacco Use (All prior to encounter date) This section includes the most current, and the historical, smoking and tobacco- related health factors from the [place] facility where the Encounter took place. Current Smoking Status This section includes the most current smoking, or tobacco-related health factor, from the [place] facility where the Encounter took place. Date/Time Current Smoking Status Comment Facil ity May 05, 2016 01:12 AM NON-TOBACCO USE INPATIENT [facility] Tobacco Use History This section includes a history of the smoking, or tobacco-related health factors, that were collected on or before the date of the Encounter. The data comes from the [place] facility where the Encounter took place. Date/Time Smoking Status/Tobacco Use Comment Yael acility Nov 24, 2015 04:48 PM NON-TOBACCO USE INPATIENT [facility] Oct 01, 2014 07:15 PM NON-TOBACCO USE INPATIENT [facility] Apr 10, 2005 01:20 PM HF V9 LIFETIME NON-SMOKER [facility] Nov 24, 2003 03:11 PM HF V9 LIFETIME NON-SMOKER [facility] Oct 07, 2002 02:26 PM HF V9 LIFETIME NON-SMOKER [facility] Advance Directives: All historical and current Section Date Range: From patient's date of to the date document was created. This section includes ALL of a patient's completed or amended [place] Advance and Rescinded Directives. The entries below indicate that a directive exists for the patient, but an actual copy is not included with this document. The data comes from all [place] facilities. Date Advance Directives Provider Source Sep 25, 2024 ADVANCE DIRECTIVE DISCUSSION ANTHONY IRVING [facility] Radiology Reports: +/- 30 days of the [...] the Encounter. The data comes from all [place] treatment facilities. Date/Time Radiology Report Provider Source Dec 11, 2024 10:15 AM FOOT-LEFT 3 OR MOR E VIEWS: ROXI WINKLER [id number] -[id number] M Exm Date: DEC 11, 2024@10:15 Req Phys: MARCUS MONTELONGO Loc: [place] POD/PROCEDURE/ATT1/LD (Req Img Loc: [facility] RAD[facility] Service: Unknown [facility] [place] [address] (Case [id number] COMPLETE)FOOT-LEFT 3 OR MORE VIEWS (RAD Detailed) CPT:54210 Reason for Study: trauma left 1st/2nd toes Clinical History: r/o Fx Report Status: Verified Date Reported: DEC 12, 2024 Date Verified: DEC 12, 2024 Community Relations Assistant E-Sig: Report: FOOT-LEFT 3 OR MORE VIEWS, [...] Staff: ZBIGNIEW JULIAN, Staff Physician Verified by certified physician's assistant for ZBIGNIEW JULIAN /[facility]BIGNIEW [facility] Encounter Notes: All associated encounter notes This section contains the clinical notes associated to the Encounter. Date/Time Encounter Note(s) Provider Source Nov 21, 2024 09:27 AM CARDIOLOGY ATTENDI OUTPATIENT NOTE: LOCAL TITLE: CARDIOLOGY CLINIC ATTENDING NOTE STANDARD TITLE: CARDIOLOGY ATTENDING OUTPATIENT NOTE DATE OF NOTE: NOV 21, 2024@09:27 ENTRY DATE: NOV 21, 2024@09:27:38 AUTHOR: TK LUDWIG COSIGNER: URGENCY: STATUS: COMPLETED CARDIOLOGY CLINIC ATTENDING NOTE Has ADDENDA Nursing Intake Note Reviewed Reason for consultation: Follow up from 10/06/24 New Consultation in EP clinic History and objective data relative to the presenting problems: Pt was seen & examined - HPI: Pt is a seen/followed in EP clinic for Rx of - AF A Flutter EP focused review: Palpitations/subjective tachycardia: no change/as noted Syncope/presyncope: as noted Dizziness/falls: as noted Chest pain/angina: - no new symptoms Shortness of breath: - no worsening Active Outpatient Medications (including Supplies): Active Outpatient [...] FOR CHRONIC PAIN Active Non-VA Medications Status = 1) Non-VA ASPIRIN 81MG EC TAB 81MG MOUTH DAILY ACTIVE 2) Non-VA NALOXONE NASAL RESCUE 4MG SOLN,SPRAY,NASAL ONE ACTIVE NOSTRIL ONLY 3) Non-VA OXYGEN GAS 3 LITERS NASAL CANNULA DAILY ACTIVE 17 Total Medications Active problems - Computerized Problem List is [...] Long-term current use of insulin (SNOMED CT 258587707) 28. Peripheral venous insufficiency 29. Obesity (SNOMED CT 762885275) 30. Obstructive Sleep APNEA (ADULT) (Pediatric) 31. Depressive Disorder NOS ROS: General: wt loss/wt gain/appetite/fever/nightsweat s/skin rashes- negative Hem/Onc: Lymphadenopathy/bony tenderness/bleeding- negative GI: Nausea/vomiting/diarrhoea/leggett ge in bowels/GI bleeding- negative Cardiovascular & Respiratory- as in HPI above, Oral anticoagulant rx: reviewed Rx. Neurological: Speech slurring/facial droop/visual loss/limb weakness/gait instability/sensory loss- negative Psych: Change in mood/anxiety/paranoia- negative Dermatological - Ulceration, skin discoloration, itch, rashes- negative ENT: Deafness, tinnnitus, vertigo- Musculoskeletal - recent onset muscle aches/pains/weakness, joint aches/pains/limitations- Family Hx: SCD - CAD - Social Hx: Reviewed- MARITAL STATUS - Examination: Vitals: No data available General: A&Ox3, NAD, wheelchair bouond, on O2 Rx HEENT: normocephalic/atraumatic, mucous membranes moist Neck: no bruits, no JVD Lungs: normal respiratory effort, CTAB Cardiovascular: RRR, normal S1/ normal S2, no rubs/gallop Abdomen: soft, non-tender, has bilat suprapubic indurated swellings Extremities: No pitting edema Skin: Warm Neuro: no gross focal deficits Psych: normal affect, answers questions appropriately Labs & Data: Collection DT Specimen Test Name Result Units Ref Range 11/15/2023 15:21 BLOOD WBC 10.2 H K/cmm 5.0 - 10.0 11/15/2023 15:21 BLOOD RBC 4.90 M/cmm 4.6 - 6.2 11/15/2023 15:21 BLOOD HGB 14.1 g/dL 14.0 - 18.0 11/15/2023 15:21 BLOOD HCT 44.9 % 42.0 - 52.0 11/15/2023 15:21 BLOOD MCV 91.6 fL 80.0 - 94.0 11/15/2023 15:21 BLOOD MCH 28.8 pg 27.0 - 31.0 11/15/2023 15:21 BLOOD MCHC 31.4 L g/dL 32.0 - 36.0 11/15/2023 15:21 BLOOD PLT 238 K/cmm 150 - 450 11/15/2023 15:21 BLOOD MPV 9.7 fL 9.0 - 13.1 11/15/2023 15:21 BLOOD RDW 14.1 % 11.0 - 16.0 11/15/2023 15:21 BLOOD NRBC 0.0 % 0.0 - 0.0 11/15/2023 18:01 URINE !! CREATININE 34.7 mg/dL 11/15/2023 15:21 PLASMA!! UREA NITROGEN 14 mg/dL 9 - 11/15/2023 15:21 PLASMA!! GLUCOSE 454 H mg/dL 74 - 100 11/15/2023 15:21 PLASMA!! SODIUM 135 L mmol/L 136 - 145 11/15/2023 15:21 PLASMA!! POTASSIUM 4.2 mmol/L 3.5 - 5.1 11/15/2023 15:21 PLASMA!! CHLORIDE 92 L mmol/L 98 - 107 11/15/2023 15:21 PLASMA!! CO2 33 H mmol/L 22 - 11/15/2023 15:21 PLASMA!! CALCIUM 8.9 mg/dL 8.4 - 10.2 11/15/2023 15:21 PLASMA!! ANION GAP 10.0 mEq/L 3 - 09/05/2021 15:26 PLASMA eGFR (TO 12-02-21) 41 SEE EVAL !! Indicates COMMENTS AVAILABLE...Refer to Interim Lab Report. K & Mg 4.2 mmol/L (11/15/2023 15:21) Assessment of the problems: Diagnosis: Paroxysmal atrial fibrillation Unspecified Atrial Flutter Assisted (Current) use of Anticoagulants Chronic Diastolic (Congestive) Heart Failure Essential (Primary) Hypertension Clinical discussion and treatment plan: Pt reports doing Ok, he has chronic resp insufficiency and is on amb O2 Rx fo radvanced COPD- 69 y/o with - PAF- Currently in Atrial Flutter- by ECG, rate controlled- EKG shosws - 3:1 AV conduction - unable to safely offer EPS/ablation due to his COPD/resp insufficiency/unresolved bilat hemaotomas- he is rate controlled, Digoxin may be DC'd. [id number] - 4- Not currently on OAC due to resolving abdomenal hematoma- he has bilateral, firm/indurated, pouchy suprapubic swellings - the left one is painful - it is being followed by a home health nurse - will recommend DOAC after resolution of this hematoma - HFpEF- Class III, also recovering from pneumonia in Oct . HTN- controlled ABEL - counseled - using O2 not CPAP - FU in 6 months- Return to clinic: as above Meds were renewed as needed. 46 minutes were spent, reviewing history, performing an exam & evaluation, entering clinical information, reviewing x-rays/MRI/labs/other EHR data, interpreting results, ordering meds/tests/procedures, and communicating with consulting complex care nurse practitioner, care coordination, & counseling of pt. /angie/ TK LUDWIG MD ATTENDING PHYSICIAN CARDIAC ELECTROPHYSIOLOGY Signed: 11/21/2024 09:39 11/21/2024 ADDENDUM STATUS: COMPLETED [place] exited clinic per MD. All medications and treatment plan was discussed with prior to exiting clinic by MD. to RTC 6 months with [place] [facility] EP ATT 1 via F2F, as scheduled. Per provider order/instruction above. If this provider is not available or requires overbook please alert Guard Chief. Appointment letter to be mailed. a) to be scheduled for DEVICE INTERROGATION/EKG same day as follow up appt. /angie/ STEFANIE TORRES Registered Nurse Signed: 11/21/2024 14:08 TK LUDWIG-[facility] Nov 21, 2024 09:12 AM NURSING OUTPATIENT NOTE: LOCAL TITLE: [facility]INIC INTAKE NOTE STANDARD TITLE: NURSING OUTPATIENT NOTE DATE OF NOTE: NOV 21, 2024@09:12 ENTRY DATE: NOV 21, 2024@09:12:35 AUTHOR: RHONDA CAMPOS COSIGNER: URGENCY: STATUS: COMPLETED Reason for visit/chief complaint: B/P: 107/66 (11/21/2024 09:10) P: 63 (11/21/2024 09:10) R: 18 (10/23/2024 15:54) T: 98.4 F [36.9 C] (11/21/2024 09:10) HT: 71 in [180.3 cm] (11/15/2023 12:52) WT: 252.0 lb [114.31 kg] (11/21/2024 09:10) Are you having any pain or recurrent pain in the last several weeks/months? Yes Severity Scale (7) Location: generalized Duration: Characteristics: Chronic (over 3 months) Pain education material offered to patient (for pain > 3) No Risk factors history: Hypertension Yes BP Rechecked No Comments: patient on 3L of O2 via n/c - all time Patient notified computer project manager available upon request for any examinations/procedures. The [...] 06/19/24 Expires: 06/18/25 Refills: 3 Status: ACTIVE BIKTARVY 50/200/25 TAB Directions: TAKE 1 TABLET BY MOUTH DAILY INFECTION Quantity: 90 for 90 days Issued: 10/14/24 Filled: 10/14/24 Expires: 10/15/25 Refills: 1 Status: ACTIVE BUMETANIDE 2MG TAB Directions: TAKE ONE TABLET BY MOUTH DAILY FOR FLUID (TAKE ADDITIONAL EVENING DOSE FOR 3LB WEIGHT GAIN IN 24 HOURS OR 5LB WEIGHT GAIN IN 1 WEEK) Quantity: 120 for 90 days Issued: 09/12/24 Filled: 10/17/24 Expires: 09/13/25 Refills: 3 Status: ACTIVE FINASTERIDE 5MG TAB [...] 240 for 30 days Issued: 09/01/24 Filled: 10/14/24 Expires: 09/02/25 Refills: 0 Status: ACTIVE GLUCOSE SENSOR DEXCOM G7 Directions: USE SENSOR DIRECTED NEEDED FOR BLOOD SUGAR MONITORING Quantity: 9 for 90 days Issued: 02/13/24 Filled: 10/31/24 Expires: 02/13/25 Refills: 0 Status: ACTIVE LIDOCAINE 5% 5IN X 6IN PATCH Directions: APPLY 2 PATCHES TO SKIN DAILY NEEDED FOR PAIN. (LEAVE ON 12 HOURS, THEN REMOVE FOR 12 HOURS) Quantity: 30 for 30 days Issued: 03/04/24 Filled: 11/14/24 Expires: 03/05/25 Refills: 7 Status: ACTIVE METHOCARBAMOL 750MG TAB Directions: TAKE ONE TABLET BY MOUTH EVERY 6 HOURS NEEDED FOR MUSCLE SPASM Quantity: 120 for 30 days Issued: 06/17/24 Filled: 10/14/24 Expires: 06/18/25 Refills: 1 Status: ACTIVE OLODATEROL/TIOTROP 2.5MCG/ACTUAT 60D INH Directions: [...] 09/28/24 Expires: 09/13/25 Refills: 3 Status: ACTIVE No remote medications found. PENDING OUTPATIENT MEDICATONS (LOCAL/REMOTE): No local medications found. No remote medications found. ACTIVE NONVA MEDICATIONS (LOCAL): ASPIRIN 81MG EC TAB Directions: 81MG MOUTH DAILY Status: ACTIVE NALOXONE NASAL RESCUE 4MG SOLN,SPRAY,PHIL Directions: ONE NOSTRIL ONLY Status: ACTIVE OXYGEN GAS Directions: 3 LITERS NASAL CANNULA DAILY Status: ACTIVE OUTPATIENT MEDICATIONS (LOCAL)WITHIN 90 DAYS: METOPROLOL TARTRATE 100MG TAB Directions: TAKE ONE [...] 05/12/24 Expires: 01/14/25 Refills: 0 Status: DISCONTINUED ASCORBIC ACID 500MG TAB Directions: TAKE ONE TABLET BY MOUTH DAILY (TAKE WITH IRON SUPPLEMENT FOR BETTER ABSORPTION) Quantity: 100 for 90 days Issued: 12/28/23 Filled: 07/10/24 Expires: 12/28/24 Refills: 1 Status: DISCONTINUED BIKTARVY 50/200/25 TAB Directions: TAKE [...] 05/26/24 Expires: 02/20/25 Refills: 0 Status: DISCONTINUED BIKTARVY 50/200/25 TAB Directions: TAKE 1 TABLET BY MOUTH DAILY INFECTION Quantity: 30 for 30 days Issued: 08/11/24 Filled: 08/24/24 Expires: 08/12/25 Refills: 1 Status: DISCONTINUED BUMETANIDE 2MG TAB Directions: TAKE [...] 08/11/24 Expires: 09/11/24 Refills: 1 Status: DISCONTINUED CHOLECALCIF 25MCG (D3-1,000UNIT) TAB Directions: TAKE ONE TABLET BY MOUTH DAILY FOR VITAMIN D SUPPLEMENT Quantity: 100 for 90 days Issued: 09/12/24 Filled: 10/30/24 Expires: 09/13/25 Refills: 3 Status: DISCONTINUED EMPAGLIFLOZIN 25MG TAB Directions: TAKE [...] Filled: 09/09/24 Expires: 09/09/25 Refills: 3 Status: DISCONTINUED GABAPENTIN 300MG CAP Directions: TAKE [...] 09/12/23 Expires: 09/11/24 Refills: 3 Status: DISCONTINUED VENLAFAXINE HCL 150MG 24HR SA CAP Directions: TAKE ONE CAPSULE BY MOUTH DAILY FOR CHRONIC PAIN Quantity: 90 for 90 days Issued: 09/11/23 Filled: 07/10/24 Expires: 09/11/24 Refills: 0 Status: DISCONTINUED GABAPENTIN 300MG CAP Directions: TAKE THREE CAPSULES BY MOUTH EVERY MORNING AND TAKE THREE CAPSULES EVERY EVENING AND TAKE FOUR CAPSULES AT BEDTIME FOR NERVE PAIN Quantity: 300 for 30 days Issued: 06/18/24 Filled: 07/21/24 Expires: 06/19/25 Refills: 1 Status: DISCONTINUED (EDIT) PANTOPRAZOLE NA 40MG EC [...] case of an emergency situation. Yes /angie/ RHONDA CAMPOS LPN Signed: 11/21/2024 09:13 RHONDA CAMPOS-[facility]
--- OUTSIDE RECORDS SUMMARY | 2024-11-21 07:20 | XMS_ITS | Encounter Summary ---
Author Name [facility] [place] [facility] [place] [facility] [place] [facility] [place] Address [address] [place] [address] Care Team Providers Care Tub Chucker Name Role Phone LAURY KENYON Primary Care [...] ON [employer] Jun 03, 2017 [id number] ROXI WINKLER PATIENT HUMANA [facility] (WNR) MEDICARE ADVANTAGE [facility] (WN) Sep 03, 2019 [id number] [phone] ROXI WINKLER JR PATIENT [employer]MANA [facility] (WNR) MEDICARE ADVANTAGE [facility] (WNR) Sep 03, 2019 [id number] ROXI WINKLERA MCR (WNR) MEDICARE ADVANTAGE HUMAN A INSUR ANCE COM Apr 04, 2019 [id number] ROXI WINKLERA MCR (WNR) MEDICARE ADVANTAGE [facility] (WNR) Apr 03, 2019 [id number] ROXI WINKLERA MCR (WNR) MEDICARE ADVANTAGE MCR (WNR) Apr 03, 2019 [id number] ROXI WINKLERA MCR (WNR) MEDICARE ADVANTAGE [facility] (WNR) Apr 03, 2019 [id number] ROXI WINKLER JR PHARMACY PRESCRIPT ION NONE Jun 03, 2017 NONE [id number] ROXI WINKLER MEDICARE PART D (WNR) MEDICARE (M) PART D Sep 03, 2023 PART D [id number] [phone] ROXI WINKLER JR PATIENT Selected Encounter This section includes the information on record at [place] for the Encounter. Date/Time Encounter Type Encounter Description Reason Provider Source Nov 21, 2024 11:20 AM OFFICE O/P EST HI 40 MIN DIABETES CLINIC ICD-10-CM E11.65 Type 2 diabetes mellitus with hyperglycemia SEFERINO DENTON Adela Encounter Template Text not used by [place] Assessments - Encounter Diagnoses This section includes the primary and secondary diagnoses documented for the Encounter. Date/Time Primary/Secondary Diagnosis Diagnosis Name Provider Source Nov 21, 2024 03:54 PM PRIMARY Type 2 diabetes mellitus with hyperglycemia SEFERINO DENTON [facility] Nov 21, 2024 03:54 PM SECONDARY Cellulitis of other sites SEFERINO DENTON [facility] Plan of Treatment: Future Appointments (+ [...] 2024 10:00 AM AMBULATORY - SURGERY TAWNY [facility] Dec 23, 2024 01:30 PM AMBULATORY - SURGERY TAWNY SERRANO [facility] January 06, 2025 10:30 AM AMBULATORY - REHAB MEDICIN E CELE[place]INO [facility] January 06, 2025 02:00 PM AMBULATORY - SURGERY TAWNY N[facility]ON [facility] January 30, 2025 11:00 AM AMBULATORY - NONE [place] [facility] Feb 17, 2025 02:00 PM AMBULATORY - SURGERY TAWNY SERRANO [facility] Apr 14, 2025 10:30 AM [facility] Lab Results: +/- 30 days [...] Type Comment Nov 21, 2024 12:38 PM [facility] PANEL 1 PLASMA Specimen Type: PLASMA [...] Nov 21, 2024 12:28 PM Reporting Lab: [address] [id number] Performing Lab: [address] [address] CREATININE 1.17 mg/dL 0.72-1.25 UREA NITROGEN 15 [...] AM NON-TOBACCO USE INPATIENT [facility] Tobacco Use History This section includes a history of the smoking, or tobacco-related health factors, that were collected on or before the date of the Encounter. The data comes from the [place] facility where the Encounter took place. Date/Time Smoking Status/Tobacco Use Comment F acility Nov 24, 2015 04:48 PM NON-TOBACCO USE INPATIENT [facility] Oct 01, 2014 07:15 PM NON-TOBACCO USE INPATIENT [facility] Apr 10, 2005 01:20 PM HF V9 LIFETIME NON-SMOKER [facility] Nov 24, 2003 03:11 PM HF V9 LIFETIME NON-SMOKER [facility] Oct 07, 2002 02:26 PM HF V9 LIFETIME NON-SMOKER [facility] Advance Directives: All historical and current Section [...] DIRECTIVE DISCUSSION ANTHONY IRVING [facility] Radiology Reports: +/- 30 days of the [...] the Encounter. The data comes from all [place] treatment facilities. Date/Time Radiology Report Provider Source Dec 11, 2024 10:15 AM FOOT-LEFT 3 OR MOR E VIEWS: ROXI WINKLER NANDO [id number] -[id number] M Exm Date: DEC 11, 2024@10:15 Req Phys: MARCUS MONTELONGO Loc: [place] POD/PROCEDURE/ATT1/LD (Req Img Loc: [facility] RADIOLOGY Service: Unknown [facility] [address] (Case [id number] COMPLETE)FOOT-LEFT 3 OR MORE VIEWS (RAD Detailed) CPT:93012 Reason for Study: trauma left 1st/2nd toes Clinical History: r/o Fx Report Status: Verified Date Reported: DEC 12, 2024 Date Verified: DEC 12, 2024 Sleeve Baster E-Sig: Report: FOOT-LEFT 3 OR MORE VIEWS, [...] Staff: ZBIGNIEW JULIAN, Staff Physician Verified by roll capper for ZBIGNIEW JULIAN /ZBIGNIEW HARVEY [facility] Encounter Notes: All associated encounter notes This section contains the clinical notes associated to the Encounter. Date/Time Encounter Note(s) Provider Source January 05, 2025 01:19 PM ADDENDUM: LOCAL TITLE: Addendum STANDARD TITLE: ADDENDUM DATE OF NOTE: JANUARY 05, 2025@13:19:03 ENTRY DATE: JANUARY 05, 2025@13:19:04 AUTHOR: SEFERINO DENTON EXP COSIGNER: URGENCY: STATUS: COMPLETED Patient was on Ozempic 07/20/23- 07/31/23 (appears to have taken one dose). Was reportedly very sick afterwards. Now requesting to re-start. Will you please let him know I would like to discuss restarting it at his in-person visit next month? THank you. /angie/ SEFERINO DENTON Endocrinology Attending Signed: 01/05/2025 13:20 Receipt Acknowledged By: 01/05/2025 13:59 /angie/ REMA EASLEY RN [facility] Diabetes/Endocrine/Merchandiser Retail Representative --- Original Document --- 11/21/24 DIABETES CLINIC PHYSICIAN NOTE: Diabetes Clinic Follow-up:NOV 21, 2024 This 69 WHITE MALE is here for review of status since last visit on: 02/2024 ROXI HORVATH JR, is here for diabetes management. Also has chronic back issues, HFpEF, CAD, HIV and chronic respiratory failure. [employer] Username: parth. Been at [facility] for falling and couldn't get up. Got out 2 weeks ago. He wouldn't eat yesterday. Tried to do PT. BP was 60s. Had a glass of milk and 3 PB crackers. Round 5pm. Says he's nauseated. Last few days. Threw up a few times. Last threw up yesterday. No diarrhea. Is nauseated today. Ate banana. Staying up all night. Sleeps 6am-noon. Sometimes the entire day. Stopped the Jardiance because thought it would cause pancreatitis. Has a toe that has a spot on it right now. is putting hydrogen peroxide on it. Pus is less. DIABETES MELLITUS -Type: DMT2. Diagnosed: long time ago Previous Hx: Can't take metformin due to GI issues. Ozempic- vomiting and diarrhea JArdiance- stopped due to a friend having pancreatitis. Also worried ab foul smelling urine. -Current Tx: U500 insulin 50 units. 10 clicks. If BGs is higher, he will go to 55 units. Takes his insulin 2-3 times per day. Tkes it after eating. He draws it up and gives it to himself. Doesn't take if BG in the low 200s. This is rare. Checks later and adds 20-30. Sitagliptin 100 mg. -Medication compliance: 0 missed doses per week. Has missed it 2 times in the last 2 years. Dexcom: Ave BG 261 GMI 9.6% 16% TIR 0% low and v low BG drops sometimes after dinner. -Hypoglycemia: denies recent severe hypoglycemia, has hypoglycemia awareness. -Diet: Per previous Breakfast- Glass of 2% milk, yogurt Lunch- Soup, handful of chips, Propel water. Supper- Small entre, side of brocoli or potatoes. Bedtime- Leos pie x1 or muffin. Peppermints overnight b/c mouth dry from CPAP. Diabetes Related Complications: -Neuropathy: Absent -Retinopathy: Present. Mild NPDR -Nephropathy: Absent. -ASCVD: Present. Hx of CAD and HFpEF. No UTIs or genital yeast infections. ROS: ROS otherwise negative Social hx: Seperated. Active problems - Computerized Problem List is [...] T7 fracture; s/p fusion on 06-15-20 (T 01-09) 9. Chronic hypoxemic respiratory failure 10. Aneurysm [...] Long-term current use of insulin (SNOMED CT 186898185) 28. Peripheral venous insufficiency 29. Obesity (SNOMED CT 811461069) 30. Obstructive Sleep APNEA (ADULT) (Pediatric) 31. Depressive Disorder NOS Active Outpatient Medications (including Supplies): Active Outpatient [...] NASAL CANNULA DAILY ACTIVE 17 Total Medications Exam: - Tc 98.4 F [36.9 C] (11/21/2024 09:52), HR: 70 (11/21/2024 09:52), - BP: 118/60 (11/21/2024 09:52), BODY MASS INDEX - 35.2 - General: No acute distress, sitting comfortably - Eyes: EOMI, anicteric - Respiratory: Normal respiratory effort. - Ext: CHARMAINE. L 2nd toe is erythematous throughout and with 2 1cm areas open with pus drainage. Recent Labs: Z GLYCOHEMOGLOBIN (HPLC) 10/17/24 15:32 7.3 H Lipid Prof Arnel. date CHOL TRIG HDL LIPID PHLDL CHOLSERUM AP 11/15/23 15:21 175 158 H 34 L Albumin 0 THYROID PROFILE, SERUM - None Found PANEL 1 - NONE FOUND PANEL 2 - NONE FOUND Assessment: Plan: Type 2 Diabetes Mellitus with Hyperglycemia: -Inc AM dose of U500 to 60 units. Cont PM dose of 50 units. -goal A1c < 8%. -recommended helping confirm his doses. Cellulitis of other sites; L 2nd toe ulcer appears infected with pus evident. Plan: -recommended seeing podiatry IRINA. Will place consult. -will start empiric abx with MRSA coverage with Bactrim DS 2 pills BID x 1 week. -will notify PCP so they can have wound nurse follow up as well f/u in DM clinic in 3 mo I spent __50___ minutes reviewing history, performing an exam and evaluation, entering clinical information in the EHR, interpreting results, counseling the patient/family/caregiver, reviewing x-rays/MRIs/labs, ordering meds/tests/procedures, referring and communicating with consuling health family day care worker, and care coordination. /angie/ SEFERINO DENTON Endocrinology Attending Signed: 11/21/2024 15:58 11/21/2024 ADDENDUM STATUS: COMPLETED Type 2 Diabetes Mellitus with Hyperglycemia: -Inc AM dose of U500 to 60 units. Cont PM dose of 50 units. -goal A1c < 8%. -recommended helping confirm his doses. Cellulitis of other sites; L 2nd toe ulcer appears infected with pus evident. Plan: -recommended seeing podiatry IRINA. Will place consult. -will start empiric abx with MRSA coverage with Bactrim DS 2 pills BID x 1 week. -will notify PCP so they can have wound nurse follow up as well thank you. /angie/ SEFERINO DENTON Endocrinology Attending Signed: 11/21/2024 15:58 Receipt Acknowledged By: 11/21/2024 16:01 /es/ LAURY KENYON APRN ADVANCED PRACTICE REGISTERED NURSE, [facility] 11/25/2024 ADDENDUM STATUS: COMPLETED Diagnosis/problems,lab results, medication review and changes,treatment plan and follow up discussed with /significant other/caregiver by provider. exited clinic per provider. RTC determined per provider (order/note). Provider to notify and discuss procedure/lab results if deemed necessary. /es/ REMA EASLEY RN [facility] Diabetes/Endocrine/Merchandiser Retail Representative Signed: 11/25/2024 15:43 01/02/2025 ADDENDUM STATUS: COMPLETED Mr. Winkler would like to retry semaglutide-he stated he has thought about it and wonders if some of the issues he thought was caused by this medication was really something else at the time. /es/ SHIMON SINCLAIR RN Signed: 01/02/2025 08:04 Receipt Acknowledged By: 01/05/2025 13:16 /angie/ SEFERINO DENTON Endocrinology Attending [facility] January 02, 2025 08:02 AM ADDENDUM: LOCAL TITLE: Addendum STANDARD TITLE: ADDENDUM DATE OF NOTE: JANUARY 02, 2025@08:02:41 ENTRY DATE: JANUARY 02, 2025@08:02:43 AUTHOR: SHIMON SINCLAIR EXP COSIGNER: URGENCY: STATUS: COMPLETED Mr. Winkler would like to retry semaglutide-he stated he has thought about it and wonders if some of the issues he thought was caused by this medication was really something else at the time. /angie/ SHIMON SINCLAIR RN Signed: 01/02/2025 08:04 Receipt Acknowledged By: 01/05/2025 13:16 /angie/ SEFERINO DENTON Endocrinology Attending --- Original Document --- 11/21/24 DIABETES CLINIC PHYSICIAN NOTE: Diabetes Clinic Follow-up:NOV 21, 2024 This 69 WHITE MALE is here for review of status since last visit on: 02/2024 ROXI HORVATH JR, is here for diabetes management. Also has chronic back issues, HFpEF, CAD, HIV and chronic respiratory failure. [employer] Username: parth. Been at [facility] for falling and couldn't get up. Got out 2 weeks ago. He wouldn't eat yesterday. Tried to do PT. BP was 60s. Had a glass of milk and 3 PB crackers. Round 5pm. Says he's nauseated. Last few days. Threw up a few times. Last threw up yesterday. No diarrhea. Is nauseated today. Ate banana. Staying up all night. Sleeps 6am-noon. Sometimes the entire day. Stopped the Jardiance because thought it would cause pancreatitis. Has a toe that has a spot on it right now. is putting hydrogen peroxide on it. Pus is less. DIABETES MELLITUS -Type: DMT2. Diagnosed: long time ago Previous Hx: Can't take metformin due to GI issues. Ozempic- vomiting and diarrhea JArdiance- stopped due to a friend having pancreatitis. Also worried ab foul smelling urine. -Current Tx: U500 insulin 50 units. 10 clicks. If BGs is higher, he will go to 55 units. Takes his insulin 2-3 times per day. Tkes it after eating. He draws it up and gives it to himself. Doesn't take if BG in the low 200s. This is rare. Checks later and adds 20-30. Sitagliptin 100 mg. -Medication compliance: 0 missed doses per week. Has missed it 2 times in the last 2 years. Dexcom: Ave BG 261 GMI 9.6% 16% TIR 0% low and v low BG drops sometimes after dinner. -Hypoglycemia: denies recent severe hypoglycemia, has hypoglycemia awareness. -Diet: Per previous Breakfast- Glass of 2% milk, yogurt Lunch- Soup, handful of chips, Propel water. Supper- Small entre, side of brocoli or potatoes. Bedtime- Leos pie x1 or muffin. Peppermints overnight b/c mouth dry from CPAP. Diabetes Related Complications: -Neuropathy: Absent -Retinopathy: Present. Mild NPDR -Nephropathy: Absent. -ASCVD: Present. Hx of CAD and HFpEF. No UTIs or genital yeast infections. ROS: ROS otherwise negative Social hx: Seperated. Active problems - Computerized Problem List is [...] T7 fracture; s/p fusion on 06-15-20 (T 01-09) 9. Chronic hypoxemic respiratory failure 10. Aneurysm [...] Long-term current use of insulin (SNOMED CT 438184004) 28. Peripheral venous insufficiency 29. Obesity (SNOMED CT 813189127) 30. Obstructive Sleep APNEA (ADULT) (Pediatric) 31. Depressive Disorder NOS Active Outpatient Medications (including Supplies): Active Outpatient [...] NASAL CANNULA DAILY ACTIVE 17 Total Medications Exam: - Tc 98.4 F [36.9 C] (11/21/2024 09:52), HR: 70 (11/21/2024 09:52), - BP: 118/60 (11/21/2024 09:52), BODY MASS INDEX - 35.2 - General: No acute distress, sitting comfortably - Eyes: EOMI, anicteric - Respiratory: Normal respiratory effort. - Ext: CHARMAINE. L 2nd toe is erythematous throughout and with 2 1cm areas open with pus drainage. Recent Labs: Z GLYCOHEMOGLOBIN (HPLC) 10/17/24 15:32 7.3 H Lipid Prof Arnel. date CHOL TRIG HDL LIPID PHLDL CHOLSERUM AP 11/15/23 15:21 175 158 H 34 L Albumin 0 THYROID PROFILE, SERUM - None Found PANEL 1 - NONE FOUND PANEL 2 - NONE FOUND Assessment: Plan: Type 2 Diabetes Mellitus with Hyperglycemia: -Inc AM dose of U500 to 60 units. Cont PM dose of 50 units. -goal A1c < 8%. -recommended helping confirm his doses. Cellulitis of other sites; L 2nd toe ulcer appears infected with pus evident. Plan: -recommended seeing podiatry IRINA. Will place consult. -will start empiric abx with MRSA coverage with Bactrim DS 2 pills BID x 1 week. -will notify PCP so they can have wound nurse follow up as well f/u in DM clinic in 3 mo I spent __50___ minutes reviewing history, performing an exam and evaluation, entering clinical information in the EHR, interpreting results, counseling the patient/family/caregiver, reviewing x-rays/MRIs/labs, ordering meds/tests/procedures, referring and communicating with consuling health family day care worker, and care coordination. /angie/ SEFERINO DENTON Endocrinology Attending Signed: 11/21/2024 15:58 11/21/2024 ADDENDUM STATUS: COMPLETED Type 2 Diabetes Mellitus with Hyperglycemia: -Inc AM dose of U500 to 60 units. Cont PM dose of 50 units. -goal A1c < 8%. -recommended helping confirm his doses. Cellulitis of other sites; L 2nd toe ulcer appears infected with pus evident. Plan: -recommended seeing podiatry IRINA. Will place consult. -will start empiric abx with MRSA coverage with Bactrim DS 2 pills BID x 1 week. -will notify PCP so they can have wound nurse follow up as well thank you. /angie/ SEFERINO DENTON Endocrinology Attending Signed: 11/21/2024 15:58 Receipt Acknowledged By: 11/21/2024 16:01 /es/ LAURY KENYON APRN ADVANCED PRACTICE REGISTERED NURSE, [facility] 11/25/2024 ADDENDUM STATUS: COMPLETED Diagnosis/problems,lab results, medication review and changes,treatment plan and follow up discussed with /significant other/caregiver by provider. [place] exited clinic per provider. RTC determined per provider (order/note). Provider to notify and discuss procedure/lab results if deemed necessary. /angie/ REMA EASLEY RN CCM Diabetes/Endocrine/Merchandiser Retail Representative Signed: 11/25/2024 15:43 SHIMON SINCLAIR-[facility] Nov 21, 2024 03:58 PM ADDENDUM: LOCAL TITLE: Addendum STANDARD TITLE: ADDENDUM DATE OF NOTE: NOV 21, 2024@15:58:22 ENTRY DATE: NOV 21, 2024@15:58:22 AUTHOR: SEFERINO DENTON EXP COSIGNER: URGENCY: STATUS: COMPLETED Type 2 Diabetes Mellitus with Hyperglycemia: -Inc AM dose of U500 to 60 units. Cont PM dose of 50 units. -goal A1c < 8%. -recommended helping confirm his doses. Cellulitis of other sites; L 2nd toe ulcer appears infected with pus evident. Plan: -recommended seeing podiatry IRINA. Will place consult. -will start empiric abx with MRSA coverage with Bactrim DS 2 pills BID x 1 week. -will notify PCP so they can have wound nurse follow up as well thank you. /angie/ SEFERINO DENTON Endocrinology Attending Signed: 11/21/2024 15:58 Receipt Acknowledged By: 11/21/2024 16:01 /es/ LAURY KENYON APRN ADVANCED PRACTICE REGISTERED NURSE, [facility] --- Original Document --- 11/21/24 DIABETES CLINIC PHYSICIAN NOTE: Diabetes Clinic Follow-up:NOV 21, 2024 This 69 WHITE MALE is here for review of status since last visit on: 02/2024 ROXI HORVATH JR, is here for diabetes management. Also has chronic back issues, HFpEF, CAD, HIV and chronic respiratory failure. Dexcom Username: parth. Been at [facility] for falling and couldn't get up. Got out 2 weeks ago. He wouldn't eat yesterday. Tried to do PT. BP was 60s. Had a glass of milk and 3 PB crackers. Round 5pm. Says he's nauseated. Last few days. Threw up a few times. Last threw up yesterday. No diarrhea. Is nauseated today. Ate banana. Staying up all night. Sleeps 6am-noon. Sometimes the entire day. Stopped the Jardiance because thought it would cause pancreatitis. Has a toe that has a spot on it right now. is putting hydrogen peroxide on it. Pus is less. DIABETES MELLITUS -Type: DMT2. Diagnosed: long time ago Previous Hx: Can't take metformin due to GI issues. Ozempic- vomiting and diarrhea JArdiance- stopped due to a friend having pancreatitis. Also worried ab foul smelling urine. -Current Tx: U500 insulin 50 units. 10 clicks. If BGs is higher, he will go to 55 units. Takes his insulin 2-3 times per day. Tkes it after eating. He draws it up and gives it to himself. Doesn't take if BG in the low 200s. This is rare. Checks later and adds 20-30. Sitagliptin 100 mg. -Medication compliance: 0 missed doses per week. Has missed it 2 times in the last 2 years. Dexcom: Ave BG 261 GMI 9.6% 16% TIR 0% low and v low BG drops sometimes after dinner. -Hypoglycemia: denies recent severe hypoglycemia, has hypoglycemia awareness. -Diet: Per previous Breakfast- Glass of 2% milk, yogurt Lunch- Soup, handful of chips, Propel water. Supper- Small entre, side of brocoli or potatoes. Bedtime- Leos pie x1 or muffin. Peppermints overnight b/c mouth dry from CPAP. Diabetes Related Complications: -Neuropathy: Absent -Retinopathy: Present. Mild NPDR -Nephropathy: Absent. -ASCVD: Present. Hx of CAD and HFpEF. No UTIs or genital yeast infections. ROS: ROS otherwise negative Social hx: Seperated. Active problems - Computerized Problem List is [...] Long-term current use of insulin (SNOMED CT 872318458) 28. Peripheral venous insufficiency 29. Obesity (SNOMED CT 425353584) 30. Obstructive Sleep APNEA (ADULT) (Pediatric) 31. Depressive Disorder NOS Active Outpatient Medications (including Supplies): Active Outpatient [...] NASAL CANNULA DAILY ACTIVE 17 Total Medications Exam: - Tc 98.4 F [36.9 C] (11/21/2024 09:52), HR: 70 (11/21/2024 09:52), - BP: 118/60 (11/21/2024 09:52), BODY MASS INDEX - 35.2 - General: No acute distress, sitting comfortably - Eyes: EOMI, anicteric - Respiratory: Normal respiratory effort. - Ext: CHARMAINE. L 2nd toe is erythematous throughout and with 2 1cm areas open with pus drainage. Recent Labs: Z GLYCOHEMOGLOBIN (HPLC) 10/17/24 15:32 7.3 H Lipid Prof Arnel. date CHOL TRIG HDL LIPID PHLDL CHOLSERUM AP 11/15/23 15:21 175 158 H 34 L Albumin 0 THYROID PROFILE, SERUM - None Found PANEL 1 - NONE FOUND PANEL 2 - NONE FOUND Assessment: Plan: Type 2 Diabetes Mellitus with Hyperglycemia: -Inc AM dose of U500 to 60 units. Cont PM dose of 50 units. -goal A1c < 8%. -recommended helping confirm his doses. Cellulitis of other sites; L 2nd toe ulcer appears infected with pus evident. Plan: -recommended seeing podiatry IRINA. Will place consult. -will start empiric abx with MRSA coverage with Bactrim DS 2 pills BID x 1 week. -will notify PCP so they can have wound nurse follow up as well f/u in DM clinic in 3 mo I spent __50___ minutes reviewing history, performing an exam and evaluation, entering clinical information in the EHR, interpreting results, counseling the patient/family/caregiver, reviewing x-rays/MRIs/labs, ordering meds/tests/procedures, referring and communicating with consuling health family day care worker, and care coordination. /angie/ SEFERINO DENTON Endocrinology Attending Signed: 11/21/2024 15:58 SEFERINO DENTON-[facility] Nov 21, 2024 10:37 AM NURSING OUTPATIENT NOTE: LOCAL TITLE: [facility] MEDICINE CLINIC INTAKE NOTE STANDARD TITLE: NURSING OUTPATIENT NOTE DATE OF NOTE: NOV 21, 2024@10:37 ENTRY DATE: NOV 21, 2024@10:38:01 AUTHOR: VERONIKA ANNA EXP COSIGNER: URGENCY: STATUS: COMPLETED Reason for visit/chief complaint: B/P: 118/60 (11/21/2024 09:52) P: 70 (11/21/2024 09:52) R: 18 (10/23/2024 15:54) T: 98.4 F [36.9 C] (11/21/2024 09:52) HT: 71 in [180.3 cm] (11/15/2023 12:52) WT: 252.0 lb [114.31 kg] (11/21/2024 09:10) Are you having any pain or recurrent pain in the last several weeks/months? Yes Severity Scale (6) Location: generalized Duration: Characteristics: Pain education material offered to patient (for pain > 3) Yes Risk factors history: Hypertension Yes BP Rechecked No Comments: Patient notified rn security available upon request for any examinations/procedures. The [...] case of an emergency situation. Yes /angie/ VERONIKA ANNA REGISTERED NURSE Signed: 11/21/2024 10:39 VERONIKA ANNA-[facility] Nov 21, 2024 08:25 AM ENDOCRINOLOGY OUTP ATIENT NOTE: LOCAL TITLE: DIABETES CLINIC PHYSICIAN NOTE STANDARD TITLE: ENDOCRINOLOGY OUTPATIENT NOTE DATE OF NOTE: NOV 21, 2024@08:25 ENTRY DATE: NOV 21, 2024@08:25:28 AUTHOR: SEFERINO DENTON EXP COSIGNER: URGENCY: STATUS: COMPLETED DIABETES CLINIC PHYSICIAN NOTE Has ADDENDA Diabetes Clinic Follow-up:NOV 21, 2024 This 69 WHITE MALE is here for review of status since last visit on: 02/2024 ROXI HORVATH SON JR, is here for diabetes management. Also has chronic back issues, HFpEF, CAD, HIV and chronic respiratory failure. Dexcom Username: parth. Been at [facility] for falling and couldn't get up. Got out 2 weeks ago. He wouldn't eat yesterday. Tried to do PT. BP was 60s. Had a glass of milk and 3 PB crackers. Round 5pm. Says he's nauseated. Last few days. Threw up a few times. Last threw up yesterday. No diarrhea. Is nauseated today. Ate banana. Staying up all night. Sleeps 6am-noon. Sometimes the entire day. Stopped the Jardiance because thought it would cause pancreatitis. Has a toe that has a spot on it right now. is putting hydrogen peroxide on it. Pus is less. DIABETES MELLITUS -Type: DMT2. Diagnosed: long time ago Previous Hx: Can't take metformin due to GI issues. Ozempic- vomiting and diarrhea JArdiance- stopped due to a friend having pancreatitis. Also worried ab foul smelling urine. -Current Tx: U500 insulin 50 units. 10 clicks. If BGs is higher, he will go to 55 units. Takes his insulin 2-3 times per day. Tkes it after eating. He draws it up and gives it to himself. Doesn't take if BG in the low 200s. This is rare. Checks later and adds 20-30. Sitagliptin 100 mg. -Medication compliance: 0 missed doses per week. Has missed it 2 times in the last 2 years. Dexcom: Ave BG 261 GMI 9.6% 16% TIR 0% low and v low BG drops sometimes after dinner. -Hypoglycemia: denies recent severe hypoglycemia, has hypoglycemia awareness. -Diet: Per previous Breakfast- Glass of 2% milk, yogurt Lunch- Soup, handful of chips, Propel water. Supper- Small entre, side of brocoli or potatoes. Bedtime- Leos pie x1 or muffin. Peppermints overnight b/c mouth dry from CPAP. Diabetes Related Complications: -Neuropathy: Absent -Retinopathy: Present. Mild NPDR -Nephropathy: Absent. -ASCVD: Present. Hx of CAD and HFpEF. No UTIs or genital yeast infections. ROS: ROS otherwise negative Social hx: Seperated. Active problems - Computerized Problem List is [...] T7 fracture; s/p fusion on 06-15-20 (T 01-09) 9. Chronic hypoxemic respiratory failure 10. Aneurysm [...] Long-term current use of insulin (SNOMED CT 159482772) 28. Peripheral venous insufficiency 29. Obesity (SNOMED CT 330696528) 30. Obstructive Sleep APNEA (ADULT) (Pediatric) 31. Depressive Disorder NOS Active Outpatient Medications (including Supplies): Active Outpatient [...] NASAL CANNULA DAILY ACTIVE 17 Total Medications Exam: - Tc 98.4 F [36.9 C] (11/21/2024 09:52), HR: 70 (11/21/2024 09:52), - BP: 118/60 (11/21/2024 09:52), BODY MASS INDEX - 35.2 - General: No acute distress, sitting comfortably - Eyes: EOMI, anicteric - Respiratory: Normal respiratory effort. - Ext: CHARMAINE. L 2nd toe is erythematous throughout and with 2 1cm areas open with pus drainage. Recent Labs: Z GLYCOHEMOGLOBIN (HPLC) 10/17/24 15:32 7.3 H Lipid Prof Arnel. date CHOL TRIG HDL LIPID PHLDL CHOLSERUM AP 11/15/23 15:21 175 158 H 34 L Albumin 0 THYROID PROFILE, SERUM - None Found PANEL 1 - NONE FOUND PANEL 2 - NONE FOUND Assessment: Plan: Type 2 Diabetes Mellitus with Hyperglycemia: -Inc AM dose of U500 to 60 units. Cont PM dose of 50 units. -goal A1c < 8%. -recommended helping confirm his doses. Cellulitis of other sites; L 2nd toe ulcer appears infected with pus evident. Plan: -recommended seeing podiatry IRINA. Will place consult. -will start empiric abx with MRSA coverage with Bactrim DS 2 pills BID x 1 week. -will notify PCP so they can have wound nurse follow up as well f/u in DM clinic in 3 mo I spent __50___ minutes reviewing history, performing an exam and evaluation, entering clinical information in the EHR, interpreting results, counseling the patient/family/caregiver, reviewing x-rays/MRIs/labs, ordering meds/tests/procedures, referring and communicating with consuling health family day care worker, and care coordination. /angie/ SEFERINO DENTON Endocrinology Attending Signed: 11/21/2024 15:58 11/21/2024 ADDENDUM STATUS: COMPLETED Type 2 Diabetes Mellitus with Hyperglycemia: -Inc AM dose of U500 to 60 units. Cont PM dose of 50 units. -goal A1c < 8%. -recommended helping confirm his doses. Cellulitis of other sites; L 2nd toe ulcer appears infected with pus evident. Plan: -recommended seeing podiatry IRINA. Will place consult. -will start empiric abx with MRSA coverage with Bactrim DS 2 pills BID x 1 week. -will notify PCP so they can have wound nurse follow up as well thank you. /angie/ SEFERINO DENTON Endocrinology Attending Signed: 11/21/2024 15:58 Receipt Acknowledged By: 11/21/2024 16:01 /angie/ LAURY KENYON APRN [employer] PRACTICE REGISTERED NURSE, [facility] 11/25/2024 ADDENDUM STATUS: COMPLETED Diagnosis/problems,lab results, medication review and changes,treatment plan and follow up discussed with /significant other/caregiver by provider. exited clinic per provider. RTC determined per provider (order/note). Provider to notify and discuss procedure/lab results if deemed necessary. /angie/ REMA EASLEY RN [facility] Diabetes/Endocrine/Merchandiser Retail Representative Signed: 11/25/2024 15:43 01/02/2025 ADDENDUM STATUS: COMPLETED Mr. Winkler would like to retry semaglutide-he stated he has thought about it and wonders if some of the issues he thought was caused by this medication was really something else at the time. /angie/ SHIMON SINCLAIR RN Signed: 01/02/2025 08:04 Receipt Acknowledged By: 01/05/2025 13:16 /angie/ SEFERINO DENTON Endocrinology Attending 01/05/2025 ADDENDUM STATUS: COMPLETED Patient was on Ozempic 07/20/23- 07/31/23 (appears to have taken one dose). Was reportedly very sick afterwards. Now requesting to re-start. Will you please let him know I would like to discuss restarting it at his in-person visit next month? THank you. /angie/ SEFERINO DENTON Endocrinology Attending Signed: 01/05/2025 13:20 Receipt Acknowledged By: * AWAITING SIGNATURE * REMA EASLEY [facility] [place]
--- OUTSIDE RECORDS SUMMARY | 2024-11-25 08:47 | XMS_ITS | Encounter Summary ---
Author Name [facility] [place] Organization [facility] [place] Address [address] [place] [address] Care Team Providers Care Restaurant Team Member Name Role Phone LAURY KENYON Primary Care [...] ON [employer] Jun 03, 2017 [id number] ROXI WINKLER PATIENT [employer] [facility] (WNR) MEDICARE ADVANTAGE [facility] (WNR) Sep 03, 2019 [id number] ROXI WINKLER JR PATIENT [employer] [facility] (WNR) MEDICARE ADVANTAGE [facility] (WNR) Sep 03, 2019 [id number] [phone] ROXI WINKLERA MCR (WNR) MEDICARE ADVANTAGE HUMAN A INSUR ANCE COM Apr 04, 2019 [id number] ROXI WINKLERA MCR (WNR) MEDICARE ADVANTAGE [facility] (WNR) Apr 03, 2019 [id number] ROXI WINKLERA MCR (WNR) MEDICARE ADVANTAGE MCR (WNR) Apr 03, 2019 [id number] ROXI WINKLERA MCR (WNR) MEDICARE ADVANTAGE MCR (WNR) Apr 03, 2019 [id number] ROXI WINKLER JR PHARMACY PRESCRIPT ION NONE Jun 03, 2017 NONE [id number] ROXI WINKLER MEDICARE PART D (WNR) MEDICARE (M) PART D Sep 03, 2023 PART D [id number] ROXI WINKLER JR PATIENT Selected Encounter This section includes the information on record at OR for the Encounter. Date/Time Encounter Type Encounter Description Reason Pro vider Source Nov 25, 2024 12:47 PM Outpatient Encounter ADMIN PAT ACTIVTIES (MASNONCT) [...] 2024 10:00 AM AMBULATORY - SURGERY [facility] Dec 23, 2024 01:30 PM AMBULATORY - SURGERY [place] [facility] January 06, 2025 10:30 AM [facility] January 06, 2025 02:00 [facility] January 30, 2025 11:00 AM AMBULATORY - NONE STEPHEN Barnes [facility] Feb 17, 2025 02:00 PM AMBULATORY - SURGERY TAWNY SERRANO [facility] Apr 14, 2025 10:30 AM AMBULATORY - MEDICINE [facility] GAL[facility]OS[facility] Lab Results: +/- 30 days of the [...] Type Comment Nov 21, 2024 12:38 PM [facility] N PANEL 1 PLASMA Specimen Type: [...] Nov 21, 2024 12:28 PM Reporting Lab: [address] [address] Performing Lab: [address] [address] CREATININE 1.17 mg/dL 0.72-1.25 UREA NITROGEN 15 [...] ANTHONY IRVING [facility] Radiology Reports: +/- 30 days of the [...] facilities. Date/Time Radiology Report Provider Source Dec 23, 2024 12:59 PM SEGMENTAL PRESSURE S, LOWER EXT(ROCK) UNILAT: ROXI WINKLER [facility] [id number] -1955 M Exm Date: DEC 23, 2024@12:59 Req Phys: MARCUS MONTELONGO Pat Loc: [place] POD/PROCEDURE/ATT1/LD (Req Img Loc: [place] VAS LAB [facility] Service: Unknown (Case [id number] COMPLETE) SEGMENTAL PRESSURES, LOWER EXT(AB(VAS Detailed) CPT:44351 Reason for Study: SEE CLINICAL HISTORY Clinical History: ROCK's/Segs Indications: Diminished pulses Report Status: Verified Date Reported: DEC 24, 2024 Date Verified: DEC 24, 2024 Negotiator Sales E-Sig: Report: SEGMENTAL PRESSURES AND ANKLE-BRACHIAL INDEX OF LOWER EXTREMITIES Findings: Right: Right brachial arterial pressure is 149 mmHg. Multiphasic waveforms noted in the right posterior tibial and right dorsalis pedis arteries. Right toe pressure is 99 mmHg. Right-sided ROCK is 1.11 mmHg. Left: Left brachial arterial pressure is 137 mmHg. Multiphasic waveforms noted in the left posterior tibial and left dorsalis pedis arteries. Left toe pressure was not obtained due to bandaging. Left-sided ROCK is 1.09 mmHg. Impression: Right: Normal study. Hemodynamically significant disease is not identified. No arterial insufficiency is present at rest. Left: Normal study. Hemodynamically significant disease is not identified. No arterial insufficiency is present at rest. Primary Diagnostic Code: NO ALERT REQUIRED Primary Interpreting Staff: TARYN TOMAS, ATTENDING PHYSICIAN Verified by gasfitter for TARYN TOMAS /TARYN TELLES [facility] Dec 11, 2024 10:15 AM FOOT-LEFT 3 OR MOR E VIEWS: ROXI WINKLER [facility] [id number] -1955 M Exm Date: DEC 11, 2024@10:15 Req Phys: MARCUS MONTELONGO Pat Loc: [place] P[place]/PROCEDURE/ATT1/LD (Req Img Loc: [facility] Service: [place] [address] (Case [id number] COMPLETE)FOOT-LEFT 3 OR MORE VIEWS (RAD Detailed) CPT:00305 Reason for Study: trauma left 1st/2nd toes Clinical History: r/o Fx Report Status: Verified Date Reported: DEC 12, 2024 Date Verified: DEC 12, 2024 Negotiator Sales E-Sig: Report: FOOT-LEFT 3 OR MORE VIEWS, [...] Staff: ZBIGNIEW JULIAN, Staff Physician Verified by gasfitter for ZBIGNIEW JULIAN /ZBIGNIEW HARVEY [facility] Encounter Notes: All associated encounter notes This section contains the clinical notes associated to the Encounter. Date/Time Encounter Note(s) Provider Source Nov 03, 2024 12:47 PM NONVA NOTE: LOCAL TITLE: OUTSIDE MEDICAL RECORD-OTHER STANDARD TITLE: NONVA NOTE DATE OF NOTE: NOV 03, 2024@12:47 ENTRY DATE: NOV 25, 2024@12:47:54 AUTHOR: MILTON,MIR A EXP COSIGNER: URGENCY: STATUS: COMPLETED The scanned document may be viewed in [facility] imaging. /angie/ MIR ROSE FUEL QUALITY TECH Signed: 11/25/2024 12:48 MIR ROSE-Yancy [facility]
--- OUTSIDE RECORDS SUMMARY | 2024-11-28 03:34 | XMS_ITS ---
Author Name [facility] Organization [facility] [place] Address [address] [place] [address] Care Team Providers Care Cream Cheese Maker Name Role Phone LAURY KENYON Primary Care Provider Unavailab SHIMON Alex Unavailable Unavailable MARI FREEMAN Unavailable Unavailable REEMA BENDER Unavailable Unavailable [...] Name Patient's Relationship to Policy [place]ual HUMANA CLAIMS/[place] MEDICAL PREFERRED PROVIDER ORGANIZAT ION (PPO) ARELIS ON [employer] Jun 03, 2017 [id number] ROXI WINKLER PATIENT HUMANA [facility] (WNR) MEDICARE ADVANTAGE [facility] (WNR) Sep 03, 2019 [id number] [phone] ROXI WINKLER JR PATIENT HUMANA [facility] (WNR) MEDICARE ADVANTAGE [facility] (WNR) Sep 03, 2019 [id number] ROXI WINKLERA MCR (WNR) MEDICARE ADVANTAGE HUMAN A INSUR ANCE COM Apr 04, 2019 [id number] [id number] ROXI WINKLERA MCR (WNR) MEDICARE ADVANTAGE [facility] (WNR) Apr 03, 2019 [id number] ROXI WINKLERA MCR (WNR) MEDICARE ADVANTAGE MCR (WNR) Apr 03, 2019 [id number] ROXI WINKLERA MCR (WNR) MEDICARE ADVANTAGE [facility] (WNR) Apr 03, 2019 [id number] ROXI WINKLER JR PHARMACY PRESCRIPT ION NONE Jun 03, 2017 NONE [id number] [phone] ROXI WINKLER MEDICARE PART D (WNR) MEDICARE (M) PART D Sep 03, 2023 PART D [id number] ROXI WINKLER JR PATIENT Selected Encounter This section includes the information on record at [place] for the Encounter. Date/Time Encounter Type Encounter Description Reason Provider Source Nov 28, 2024 07:34 AM NQHP OL DIG ASSMT&MGMT 21+ [facility] - CLINICAL PHARMACIST ICD-10-CM Z79.899 Other terminal worker (current) drug therapy MARI FREEMAN Adela Encounter Template Text not used by [place] Assessments - Encounter Diagnoses This section includes the primary and secondary diagnoses documented for the Encounter. Date/Time Primary/Secondary Diagnosis Diagnosis Name Provider Source Nov 28, 2024 09:43 AM PRIMARY Other terminal worker (current) drug therapy MARI FREEMAN-Yancy [facility] Plan of Treatment: Future Appointments (+ 6 months) and Future Tests (+/- 45 days) The Plan of Treatment section includes future care activities for the patient from all [place] treatmentfacilities. This section includes future appointments and future orders which are active, pending or scheduled. Future Appointments This section includes appointments that were scheduled to occur 6 months from the date of the Encounter, up to a maximum of 20 appointments. The data comes from all [place] treatment facilities. Appointment Date/Time Appointment Type Appointme nt Facility Name Dec 11, 2024 10:00 AM AMBULATORY - SURGERY [place] [facility] Dec 23, 2024 01:30 PM [facility] [place] [facility] January 06, 2025 10:30 AM [facility] January 06, 2025 02:00 PM [facility] January 30, 2025 11:00 AM [facility] [place] [facility] Feb 17, 2025 02:00 PM AMBULATORY - SURGERY [facility] Apr 14, 2025 10:30 AM AMBULATORY - MEDICINE [place] GALLEGOS-D [facility] Lab Results: +/- 30 days of [...] Type Comment Nov 21, 2024 12:38 PM [facility] N PANEL 1 PLASMA Specimen [...] Nov 21, 2024 12:28 PM Reporting Lab: [address] [id number] Performing Lab: [address] [id number] CREATININE 1.17 mg/dL 0.72-1.25 UREA NITROGEN 15 [...] and tobacco- related health factors from the [place] facility where the Encounter took place. Current Smoking Status This section includes the most current smoking, or tobacco-related health factor, from the [place] facility where the Encounter took place. Date/Time Current Smoking Status Comment Anita bartholomew May 05, 2016 01:12 AM NON-TOBACCO USE INPATIENT [facility] Tobacco Use History This section includes a history of the smoking, or tobacco-related health factors, that were collected on or before the date of the Encounter. The data comes from the [place] facility where the Encounter took place. Date/Time Smoking Status/Tobacco Use Comment Yael grajeda Nov 24, 2015 04:48 PM NON-TOBACCO USE INPATIENT [facility] Oct 01, 2014 07:15 PM NON-TOBACCO USE INPATIENT [facility] Apr 10, 2005 01:20 PM HF V9 LIFETIME NON-SMOKER [facility] Nov 24, 2003 03:11 PM HF V9 LIFETIME NON-SMOKER [facility] Oct 07, 2002 02:26 PM HF V9 LIFETIME NON-SMOKER [facility] Advance Directives: All historical and current Section Date Range: From patient's date of to the date document was created. This section includes ALL of a patient's completed or amended [place] Advance and Rescinded Directives. The entries below indicate that a directive exists for the patient, but an actual copy is not included with this document. The data comes from all [place] facilities. Date Advance Directives Provider Source Sep 25, 2024 ADVANCE DIRECTIVE DISCUSSION ANTHONY IRVING [facility] Radiology Reports: +/- 30 days of the [...] the Encounter. The data comes from all [place] treatment facilities. Date/Time Radiology Report Provider Source Dec 23, 2024 12:59 PM SEGMENTAL PRESSURE S, LOWER EXT(ROCK) UNILAT: ROXI WINKLER [id number] -[id number] M Exm Date: DEC 23, 2024@12:59 Req Phys: MARCUS MONTELONGO Pat Loc: [place] POD/PROCEDURE/ATT1/LD (Req Img Loc: [place] [facility] [place] Service: Unknown (Case [id number] COMPLETE) SEGMENTAL PRESSURES, LOWER EXT(AB(VAS Detailed) CPT:63748 Reason for Study: SEE CLINICAL HISTORY Clinical History: ROKC's/Segs Indications: Diminished pulses Report Status: Verified Date Reported: DEC 24, 2024 Date Verified: DEC 24, 2024 Trailhead Maintenance Worker E-Sig: Report: SEGMENTAL PRESSURES AND ANKLE-BRACHIAL INDEX [...] Staff: TARYN TOMAS, ATTENDING PHYSICIAN Verified by suggestion clerk for TARYN TOMAS /TARYN TELLES [facility] Dec 11, 2024 10:15 AM FOOT-LEFT 3 OR MOR E VIEWS: ROXI WINKLER [facility] [id number] -1955 M Exm Date: DEC 11, 2024@10:15 Req Phys: MARCUS MONTELONGO Pat Loc: [place] POD/PROCEDURE/ATT1/LD (Req Img Loc: [facility] Service: Unknown [place] [id number] (Case [id number] COMPLETE)FOOT-LEFT 3 OR MORE VIEWS (RAD Detailed) CPT:53412 Reason for Study: trauma left 1st/2nd toes Clinical History: r/o Fx Report Status: Verified Date Reported: DEC 12, 2024 Date Verified: DEC 12, 2024 Trailhead Maintenance Worker E-Sig: Report: FOOT-LEFT 3 OR MORE VIEWS, [...] Staff: ZBIGNIEW JULIAN, Staff Physician Verified by suggestion clerk for ZBIGNIEW JULIAN /ZBIGNIEW HARVEY [facility] Encounter Notes: All associated encounter notes This section contains the clinical notes associated to the Encounter. Date/Time Encounter Note(s) Provider Source Nov 28, 2024 07:34 AM PHARMACY HOME [facility] E [facility] M NOTE: LOCAL TITLE: [facility] PHARMACY NOTE STANDARD TITLE: PHARMACY HOME [facility] E & M NOTE DATE OF NOTE: NOV 28, 2024@07:34 ENTRY DATE: NOV 28, 2024@07:34:19 AUTHOR: MARI FREEMAN EXP COSIGNER: URGENCY: STATUS: COMPLETED PMH: 1. Chronic pain syndrome 2. Chronic diastolic heart failure 3. Chronic obstructive pulmonary disease 4. Closed fracture of left humerus 5. Pseudophakia 6. Bilateral senile combined form cataracts of eyes 7. Bilateral senile combined form cataracts of eyes 8. Moderate nonproliferative diabetic retinopathy of right eye 9. 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 10. Fracture of thoracic spine T7 fracture; s/p fusion on 06-15-20 (T 5-9) 11. Chronic hypoxemic respiratory failure 12. Aneurysm of thoracic aorta 4.3cm 13. Pain in left knee 14. Human immunodeficiency virus 15. Mixed hyperlipidemia 16. Vitamin D deficiency 17. Microscopic hematuria 18. Respiratory failure 19. Coronary arteriosclerosis 20. Type 2 diabetes mellitus without complication 21. Gastroesophageal reflux disease 22. History of polyp of colon 23. Cervicalgia 24. Venous stasis 25. Benign essential hypertension 26. Low back pain 27. Benign neoplasm of colon 28. Other Malaise and Fatigue 29. Long-term current use of insulin (SNOMED CT 293322861) 30. Peripheral venous insufficiency 31. Obesity (SNOMED CT 448450628) 32. Obstructive Sleep APNEA (ADULT) (Pediatric) 33. Depressive Disorder NOS Allergies: ENALAPRIL, FOSINOPRIL, LOPID, NIASPAN 500MG ER TABLET, ATENOLOL, HYDRALAZINE VASOTEC, SIMVASTATIN, AMLODIPINE BESYLATE 5MG TABLET, SEMAGLUTIDE VS: SVS - Vital Signs Selected Measurement DT BP TEMP RESP PULSE POx F(C) (L/MIN)(%) 11/21/2024 09:52 118/60 98.4(36.9) 70 91 Immunizations: IM - Immunizations ADMINISTERED Immunization Series Date Facility Reaction Info INFLUENZA, HIGH-DOSE, TRIVALENT,* 10/15/2024 [facility]* PNEUMOCOCCAL CONJUGATE PCV20, PO* 12/27/2022 [facility] TDAP 10/14/2013 [facility]* ZOSTER RECOMBINANT 1 03/27/2023 [facility]* CONTRAINDICATED No data available REFUSED ======= Immunization Date Facility Info COVID-19 ([email or web address]), MRNA, LNP-S, * 09/06/2023 [facility]* <I> MENINGOCOCCAL MCV4, UNSPECIFIED * 12/27/2022 [facility]* <I> TD(ADULT) UNSPECIFIED FORMULATION 09/06/2023 [facility]* <I> ZOSTER RECOMBINANT 12/27/2022 [facility]* <I> Medications: Active and Recently Outpatient Medications [...] ACTIVE (S) Indication: FOR BLOOD SUGAR MONITORING 7) INSULIN CONC REG HUM 500 UNT/ML KWIKPEN INJECT 60 UNITS ACTIVE UNDER THE SKIN EVERY MORNING AND INJECT 50 UNITS EVERY EVENING -KEEP REFRIGERATED UNTIL PEN IN USE, ONCE IN USE DISCARD AFTER 28 DAYS Indication: FOR BLOOD SUGAR 8) LIDOCAINE 5% 5IN X 6IN PATCH APPLY 2 PATCHES TO SKIN DAILY ACTIVE NEEDED FOR PAIN. (LEAVE ON 12 HOURS, THEN REMOVE FOR 12 HOURS) 9) METHOCARBAMOL 750MG TAB TAKE ONE TABLET BY MOUTH EVERY 6 ACTIVE HOURS NEEDED FOR MUSCLE SPASM 10) NEEDLE,PEN 31G,8MM USE NEEDLE NEEDLE,PEN 31G,5/16IN DEVICE ACTIVE DIRECTED FOR USE WITH U500 KWICKPEN 11) OLODATEROL/TIOTROP 2.5MCG/ACTUAT 60D INH INHALE 2 PUFFS BY ACTIVE MOUTH EVERY MORNING FOR BREATHING 12) PANTOPRAZOLE NA 40MG EC TAB TAKE ONE TABLET BY MOUTH DAILY ACTIVE TAKE ON AN EMPTY STOMACH. Indication: FOR STOMACH 13) SITAGLIPTIN (EQV-ZITUVIO) 100MG TAB TAKE ONE TABLET BY MOUTH ACTIVE DAILY -REPLACES ALOGLIPTIN. STORE IN ORIGINAL CONTAINER. OPENED BOTTLES MUST BE USED WITHIN 3 MONTHS Indication: FOR BLOOD SUGAR 14) SULFAMETHOXAZOLE 800/TRIMETH 160MG TAB TAKE 2 TABLETS BY ACTIVE MOUTH TWICE A DAY FOR DIABETIC FOOT INFECTION Indication: FOR SKIN OR SOFT TISSUE INFECTION 15) TAMSULOSIN HCL 0.4MG CAP TAKE ONE [...] FOR BLOOD PRESSURE/HEART Active Non-VA Medications Status 1) Non-VA ASPIRIN 81MG EC TAB 81MG MOUTH DAILY ACTIVE 2) Non-VA NALOXONE NASAL RESCUE 4MG SOLN,SPRAY,NASAL ONE ACTIVE NOSTRIL ONLY 3) Non-VA OXYGEN GAS 3 LITERS NASAL CANNULA DAILY ACTIVE Labs: PANEL 1 Arnel. date GLUCOSE BUN CREAT SODIUM K CHLOR CO2 11/21/24 12:38 282 H 15 1.17 133 L 4.1 89 L 38 H PANEL 2 - NONE FOUND CBC/PLT, BLOOD - Partial Panel found WBC [...] % (0.0 - 0.0) Lipid Prof Arnel. date CHOL TRIG HDL LIPID PHLDL CHOLSERUM AP 11/15/23 15:21 175 158 H 34 L GLYCOHEMOGLOBIN (HPLC) 10/17/24 15:32 7.3 H TSH: 4.5225 mIU/mL (11/15/2023 15:21) B-12/FOLATE: Collection DT Specimen Test Name Result Units Ref Range 06/02/2020 14:10 PLASMA!! B12 VITAMIN 737 pg/mL 213 - 816 Vitamin D: Collection DT Specimen Test Name Result Units Ref Range 10/17/2024 15:32 SERUM !! 25-OH VITAMIN D 28.3 ng/mL 20.0 - 50.0 Estimated CrCl: 95 ml/min (ABW and Scr); 66 ml/min (eGFR adj for BW) Lipid Goal: moderate-dose statin (CAD) BP Goal: <140/90 (DM) - met A1c Goal: <8% (per DM Clinic) - met Medication Outcomes VA meds: ALBUTEROL 90MCG (CFC-F) 200D ORAL 2 PUFFS Q6H PRN: COPD BIKTARVY 50/200/25 TAB TAKE 1 TABLET BY MOUTH DAILY: HIV INFECTION BUMETANIDE 2MG TAB DAILY FOR FLUID FINASTERIDE 5MG TAB DAILY: PROSTATE? GABAPENTIN 300MG CAP 600MG/900MG/900MG: NERVE PAIN GLUCOSE 4GM CHEW TAB NEEDED: LOW BLOOD SUGAR (dc'd per policy) INSULIN CONC REG HUM 500 UNT/ML KWIKPEN INJECT 60AM & 50PM AC: DM LIDOCAINE 5% 5IN X 6IN PATCH APPLY 2 PATCHES TO SKIN DAILY: PAIN METHOCARBAMOL 750MG TAB Q6H PRN: MUSCLE SPASM METOPROLOL TARTRATE 100MG TAB TWICE A DAY: CAD/HTN (exp) OLODATEROL/TIOTROP 2.5MCG/ACTUAT 60D INH INHALE 2 PUFFS QAM: COPD PANTOPRAZOLE NA 40MG EC TAB DAILY: GERD SITAGLIPTIN (EQV-ZITUVIO) 100MG TAB DAILY: DM TAMSULOSIN HCL 0.4MG CAP QPM: BPH? TRAMADOL HCL 50MG TAB 50MG/50MG/100MG PRN: PAIN VENLAFAXINE HCL 150MG 24HR SA CAP DAILY: CHRONIC PAIN NonVA meds: ASPIRIN 81MG EC TAB DAILY: CAD/PAF NALOXONE NASAL RESCUE 4MG SOLN UD: opioid safety *Cardiology clinic *ID clinic *DM clinic *Pain Pharm clinic New therapies/medication changes since last Pharmacy review: - SULFAMETHOXAZOLE 800/TRIMETH 160MG TAB TAKE 2 TABLETS TWICE A DAY FOR DIABETIC FOOT INFECTION 11/21 x7d - ASCORBIC ACID 500MG TAB DAILY WITH IRON: ANEMIA dc'd 10/15 - FERROUS SULFATE 324MG EC TAB DAILY: ANEMIA dc'd 10/15 - CHOLECALCIF 25MCG (D3-1,000UNIT) TAB DAILY FOR VITAMIN D SUPPLEMENT dc'd 10/18 - insulin adjusted by DM clinic 11/21 *Date Presenting to the Facility: Nov Hospital: [facility] Route of Admission: ER Date of Admission: Nov Admitting Diagnosis: Fall Community Care Provider: Confirm Level of Care: Acute Inpatient Care Dc'd home 11/06 Plan/recommendations: 1. Problem List: - Please add indication for tamsulosin and finasteride. - Please add PAF per 11/21 Cards note 2. PAF: per 11/21 Cards note, he is rate controlled, Digoxin may be DC'd...will recommend DOAC after resolution of this hematoma . Will enter consult for apixaban 5mg BID for stroke prophylaxis in A.fib (age<80, Scr<1.5, Wt>60kg). Please enter Rx when appropriate/hematoma resolved. Apixaban will replace ASA. 3. Med rec: will d/c SMZ/TMP, Rx complete. 4. medications for review: - METOPROLOL TARTRATE 100MG TAB TWICE A DAY: CAD/HTN (exp) - please renew - GLUCOSE 4GM CHEW TAB NEEDED: LOW BLOOD SUGAR (dc'd per policy) Medications were reviewed by Pharm.D. for therapeutic indications as well as appropriate dosing for renal function when current labs available and not enrolled in hospice care. Continue to review quarterly. Time Spent Reviewing Chart: 35 min PBM PharmD Pharmacotherapy Rem V12: Medication monitoring or diagnostic evaluation (e.g., other labs, EKG) Medication reconciliation (changes to active [place] and non-SD medication lists to reconcile differences) Changes to medication lists made Discontinue or remove medication Add or renew medication /angie/ Mari Freeman, Pharm.DBen, B.C.P.S Clinical Pharmacist - RORY Signed: 11/28/2024 09:43 Receipt Acknowledged By: 11/28/2024 15:21 /es/ SHIMON SINCLAIR RN 11/28/2024 11:11 /es/ LAURY KENYON APRN ADVANCED PRACTICE REGISTERED NURSE, MARI ORTEGA-CDD [facility]
--- OUTSIDE RECORDS SUMMARY | 2024-12-01 06:45 | XMS_ITS ---
Author Name [facility] Organization [facility] Address [address] [place] [address] Care Team Providers Care Chemical Compounder Helper Name Role Phone LAURY KENYON Primary Care [...] Name Patient's Relationship to Policy Pascual HUMANA CLAIMS/ID MEDICAL PREFERRED PROVIDER ORGANIZAT ION (PPO) ARELIS ON [employer] Jun 03, 2017 [id number] ROXI WINKLER PATIENT HUMANA [facility] (WNR) MEDICARE ADVANTAGE [facility] (WNR) Sep 03, 2019 [id number] [phone] ROXI WINKLER JR PATIENT HUMANA [facility] (WNR) MEDICARE ADVANTAGE [facility] (WNR) Sep 03, 2019 [id number] [phone] ROXI WINKLERA MCR (WNR) MEDICARE ADVANTAGE HUMAN A INSUR ANCE COM Apr 04, 2019 [id number] [phone] ROXI WINKLER MCR (WNR) MEDICARE ADVANTAGE [facility] (WNR) Apr 03, 2019 [id number] [phone] ROXI WINKLERA MCR (WNR) MEDICARE ADVANTAGE [facility] (WNR) Apr 03, 2019 [id number] [phone] ROXI WINKLER JR MCR (WNR) MEDICARE ADVANTAGE [facility] (WNR) Apr 03, 2019 [id number] ROXI WINKLER PHARMACY PRESCRIPT ION NONE Jun 03, 2017 NONE [id number] ROXI WINKLER MEDICARE PART D (WNR) MEDICARE (M) PART D Sep 03, 2023 PART D [id number] [phone] ROXI WINKLER JR PATIENT Selected Encounter This section includes the information on record at ID for the Encounter. 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 Date/Time Primary/Secondary Diagnosis Diagnosis Name Provider Source Dec 01, 2024 11:09 AM PRIMARY jail (current) use of anticoagulants NIKO WHITE [facility] Dec 01, 2024 11:09 AM SECONDARY Paroxysmal atrial fibrillation NIKO WHITE [facility] Plan of Treatment: Future Appointments (+ 6 months) and Future Tests (+/- 45 days) The Plan of Treatment section includes future care activities for the patient from all ID treatmentfacilities. This section includes future appointments and future orders which are active, pending or scheduled. Future Appointments This section includes appointments that were scheduled to occur 6 months from the date of the Encounter, up to a maximum of 20 appointments. The data comes from all ID treatment facilities. Appointment Date/Time Appointment Type Appointme nt Facility Name Dec 11, 2024 10:00 AM AMBULATORY - SURGERY TAWNY SERRANO [facility] Dec 23, 2024 01:30 PM AMBULATORY - SURGERY LEXIN ZACH [facility] January 06, 2025 10:30 AM AMBULATORY - REHAB MEDICIN E CELESTINO [facility] January 06, 2025 02:00 PM AMBULATORY - SURGERY TAWNY SERRANO [facility] January 30, 2025 11:00 AM AMBULATORY - NONE LEXINGTO N [facility] Feb 17, 2025 02:00 PM AMBULATORY - SURGERY [place] Z[place] [facility] Apr 14, 2025 10:30 AM AMBULATORY - MEDICINE [facility] Lab Results: +/- 30 days of the encounter This section includes the Chemistry and Hematology Lab Results on record with ID for the patient. Radiology Reports and Pathology Reports are provided separately, in subsequent sections. Lab Results This section contains the Chemistry/Hematology Results that were resulted 30 days before or 30 daysafter the date of the Encounter. Date/Time Source Result Type Result - Unit Interpretation Reference Range Specimen Type Comment Nov 21, 2024 12:38 PM [facility] N PANEL 1 PLASMA Specimen Type: [...] Nov 21, 2024 12:28 PM Reporting Lab: [address] [id number] Performing Lab: [address] [id number] CREATININE 1.17 mg/dL 0.72-1.25 UREA NITROGEN 15 [...] and tobacco- related health factors from the ID facility where the Encounter took place. Current Smoking Status This section includes the most current smoking, or tobacco-related health factor, from the ID facility where the Encounter took place. Date/Time Current Smoking Status Comment Anita [email or web address] May 05, 2016 01:12 AM NON-TOBACCO USE INPATIENT [facility] Tobacco Use History This section includes a history of the smoking, or tobacco-related health factors, that were collected on or before the date of the Encounter. The data comes from the ID facility where the Encounter took place. Date/Time [...] ALL of a patient's completed or amended ID Advance and Rescinded Directives. The entries below indicate that a directive exists for the patient, but an actual copy is not included with this document. The data comes from all ID facilities. Date Advance Directives Provider Source Sep 25, 2024 ADVANCE DIRECTIVE DISCUSSION ANTHONY IRVING [facility] Radiology Reports: +/- 30 days [...] the Encounter. The data comes from all ID treatment facilities. Date/Time Radiology Report Provider Source Dec 23, 2024 12:59 PM SEGMENTAL PRESSURE S, LOWER EXT(ROCK) UNILAT: ROXI WINKLER [facility] [id number] -1955 M Exm Date: DEC 23, 2024@12:59 Req Phys: MARCUS MONTELONGO Pat Loc: [place] POD/PROCEDURE/ATT1/LD (Req Img Loc: [place] [facility] Service: Unknown (Case [id number] COMPLETE) SEGMENTAL PRESSURES, LOWER EXT(AB(VAS Detailed) CPT:08306 Reason for Study: SEE CLINICAL HISTORY Clinical History: ROCK's/Segs Indications: Diminished pulses Report Status: Verified Date Reported: DEC 24, 2024 Date Verified: DEC 24, 2024 Public Relations Professional E-Sig: Report: SEGMENTAL PRESSURES AND ANKLE-BRACHIAL INDEX [...] Staff: TARYN TOMAS, ATTENDING PHYSICIAN Verified by painting trades worker for TARYN TOMAS /TARYN TELLES [facility] Dec 11, 2024 10:15 AM FOOT-LEFT 3 OR MOR E VIEWS: ROXI WINKLER [facility] [id number] -1955 M Exm Date: DEC 11, 2024@10:15 Req Phys: MARCUS MONTELONGO Loc: [place] POD/PROCEDURE/ATT1/LD (Req Img Loc: [facility] Service: [place] [address] (Case [id number] COMPLETE)FOOT-LEFT 3 OR MORE VIEWS (RAD Detailed) CPT:28326 Reason for Study: trauma left 1st/2nd toes Clinical History: r/o Fx Report Status: Verified Date Reported: DEC 12, 2024 Date Verified: DEC 12, 2024 Public Relations Professional E-Sig: Report: FOOT-LEFT 3 OR MORE VIEWS, [...] Staff: ZBIGNIEW JULIAN, Staff Physician Verified by painting trades worker for ZBIGNIEW JULIAN /ZBIGNIEW HARVEY [facility] Encounter Notes: All associated encounter notes This section contains the clinical notes associated to the Encounter. Date/Time Encounter Note(s) Provider Source Dec 01, 2024 10:45 AM PHARMACY CONSULT: LOCAL TITLE: PADR PHARMACY CONSULT RESPONSE STANDARD TITLE: PHARMACY CONSULT DATE OF NOTE: DEC 01, 2024@10:45 ENTRY DATE: DEC 01, 2024@10:45:33 AUTHOR: NIKO WHITE COSIGNER: NI BORGES URGENCY: STATUS: COMPLETED PADR PHARMACY CONSULT RESPONSE Has ADDENDA The medical record has been reviewed with regard to this prior authorization drug request. Medication requested: APIXABAN 5MG TAB Medication indication: A fib (stroke prophylaxis) Medical history relevant to this request: [facility] requesting apixaban for 69 y/o male for a fib/stroke prophylaxis. Per 11/21/24 cards note, [id number] - 4- Not currently on OAC due to resolving abdomenal hematoma- he has bilateral, firm/indurated, pouchy suprapubic swellings - the left one is painful - it is being followed by a home health nurse - will recommend DOAC after resolution of this hematoma. Active problems - Computerized Problem List is the source for the followin. Chronic pain syndrome 2. Chronic diastolic heart [...] Long-term current use of insulin (SNOMED CT 522067254) 30. Peripheral venous insufficiency 31. Obesity (SNOMED CT 525582527) 32. Obstructive Sleep APNEA (ADULT) (Pediatric) 33. Depressive Disorder NOS Pertinent Medication History/Trial(s) Appears has not trialed anticoagulation previously, however, [place] has been on ASA 81 mg for several years. Pertinent Lab(s)/Vitals Wt 114 kg SCr 1.17 Age 69 Criteria Discussion Apixaban Criteria For Use Exclusion Criteria The following must be met: Patient has no exclusions to receiving a DOAC (exclusions are listed below) (__) Mechanical heart valve (__) Moderate to severe rheumatic mitral valve stenosis (for patients with atrial fibrillation/flutter only) (__) Antiphospholipid syndrome (APS). DOACs have been shown to be less effective than warfarin in preventing arterial thrombosis in patients with APS, and warfarin is favored in most APS patients. (__) Known significant liver disease (e.g. acute clinical hepatitis, cirrhosis [Child-Mcfarland C]), or hepatic disease associated with coagulopathy (__) (__) Inclusion Criteria: ONE of the following must be selected for indication: (MET) Atrial fibrillation/flutter (AF) (__) Acute venous thromboembolism (VTE), or prevention of recurrent venous thromboembolism (__)Primary prophylaxis of VTE in patients undergoing hip or knee replacement surgery Other: (MET) Assessment of renal function (CrCl) and hemoglobin, hematocrit, and platelets (MET) Provider has assessed DOAC choice, dose, and duration considering the patients age, renal function, liver function, concurrent medications, and indication for use (MET) Modifiable risk factors for bleeding have been identified and addressed, including the concurrent use of drugs that increase major bleed risk (e.g., NSAIDs, antiplatelet therapy). - No drug interactions Response The request is APPROVED for apixaban, monitoring/dosing per [facility]. - No formulary-preferred alternative Time Spent (minutes): 30 /angie/ NIKO WHITE PHARMD PGY1 ADVERTISING DISPATCH CLERK Signed: 12/01/2024 12:11 /angie/ Ni Borges PharmD, BCPS Customs Entry Clerk- Pharmacoeconomics/Formulary Cosigned: 12/01/2024 12:30 12/01/2024 ADDENDUM STATUS: COMPLETED Reviewed and agree with consult decision as outlined above per Dr. White, PGY-1 Pharmacy Practice Resident /angie/ Ni Borges PharmD, BCPS Customs Entry Clerk- Pharmacoeconomics/Formulary Signed: 12/01/2024 12:30 NIKO WHITE-KAREND [facility]
--- OUTSIDE RECORDS SUMMARY | 2024-12-02 03:43 | XMS_ITS | Encounter Summary ---
Author Name [facility] Organization [facility] Address [address] [place] [address] Care Team Providers Care Assembler Surgical Garment Name Role Phone LAURY KENYON Primary Care Provider Unavailab SHIMON Alex Unavailable Unavailable MARI FREEMAN Unavailable Unavailable REJI BHAGAT Unavailable Unavailable NATASHA PICKENS Unavailable Unavailable JENY STOREY Unavailable Unavailable DANAY IRVING Unavailable Unavailable Insurance Providers: All historical [...] Name Patient's Relationship to Policy Pascual HUMANA CLAIMS/AR MEDICAL PREFERRED PROVIDER ORGANIZAT ION (PPO) ARELIS [employer] Jun 03, 2017 [id number] ROXI WINKLER PATIENT HUMANA [facility] (WNR) MEDICARE ADVANTAGE [facility] (WNR) Sep 03, 2019 [id number] [phone] ROXI WINKLER JR PATIENT HUMANA [facility] (WNR) MEDICARE ADVANTAGE [facility] (WNR) Sep 03, 2019 [id number] [phone] ROXI WINKLERA MCR (WNR) MEDICARE ADVANTAGE HUMAN A INSUR ANCE COM Apr 04, 2019 [id number] ROXI WINKLERA MCR (WNR) MEDICARE ADVANTAGE MCR (WNR) Apr 03, 2019 [id number] [phone] ROXI WINKLERA MCR (WNR) MEDICARE ADVANTAGE MCR (WNR) Apr 03, 2019 [id number] [phone] ROXI WINKLER JR MCR (WNR) MEDICARE ADVANTAGE MCR (WNR) Apr 03, 2019 [id number] ROXI WINKLER PHARMACY PRESCRIPT ION NONE Jun 03, 2017 NONE [id number] ROXI WINKLER MEDICARE PART D (WNR) MEDICARE (M) PART D Sep 03, 2023 PART D [id number] [phone] ROXI WINKLER JR PATIENT Selected Encounter This section includes the information on record at [place] for the Encounter. Date/Time Encounter Type Encounter Description Reason Pro vider Source Dec 02, 2024 07:43 AM Outpatient Encounter PC Nursing (RN / LP) IHE Encounter Template Text not used by [place] Plan of Treatment: Future Appointments (+ 6 months) and Future Tests (+/- 45 days) The Plan of Treatment section includes future care activities for the patient from all [place] treatmentfacilities. This section includes future appointments and future orders which are active, pending or scheduled. Future Appointments This section includes appointments that were scheduled to occur 6 months from the date of the Encounter, up to a maximum of 20 appointments. The data comes from all [place] treatment facilities. Appointment Date/Time Appointment Type Appointme nt Facility Name Dec 11, 2024 10:00 AM AMBULATORY - SURGERY [place] [facility] Dec 23, 2024 01:30 PM AMBULATORY - SURGERY [place] [facility] January 06, 2025 10:30 AM AMBULATORY - REHAB MEDICIN E [facility] January 06, 2025 02:00 PM AMBULATORY - SURGERY [place] [facility] January 30, 2025 11:00 AM AMBULATORY - NONE [place] [facility] Feb 17, 2025 02:00 PM AMBULATORY - SURGERY TAWNY SERRANO [facility] Apr 14, 2025 10:30 AM AMBULATORY - MEDICINE [facility] Lab Results: +/- 30 days of the [...] Comment Nov 21, 2024 12:38 PM [facility] N PANEL 1 PLASMA Specimen Type: PLASMA [...] Nov 21, 2024 12:28 PM Reporting Lab: [address] [id number] Performing Lab: [address] [id number] CREATININE 1.17 mg/dL 0.72-1.25 UREA NITROGEN 15 [...] and tobacco- related health factors from the [place] facility where the Encounter took place. Current Smoking Status This section includes the most current smoking, or tobacco-related health factor, from the [place] facility where the Encounter took place. Date/Time Current Smoking Status Comment Anita [email or web address] May 05, 2016 01:12 AM NON-TOBACCO USE INPATIENT [facility] Tobacco Use History This section includes a history of the smoking, or tobacco-related health factors, that were collected on or before the date of the Encounter. The data comes from the [place] facility where the Encounter took place. Date/Time Smoking Status/Tobacco Use Comment F acsabas Nov 24, 2015 04:48 PM NON-TOBACCO USE INPATIENT [facility] Oct 01, 2014 07:15 PM NON-TOBACCO USE INPATIENT [facility] Apr 10, 2005 01:20 PM HF V9 LIFETIME NON-SMOKER [facility] Nov 24, 2003 03:11 PM HF V9 LIFETIME NON-SMOKER [facility] Oct 07, 2002 02:26 PM HF V9 LIFETIME NON-SMOKER [facility] Advance Directives: All historical and current Section Date Range: From patient's date of to the date document was created. This section includes ALL of a patient's completed or amended [place] Advance and Rescinded Directives. The entries below indicate that a directive exists for the patient, but an actual copy is not included with this document. The data comes from all [place] facilities. Date Advance Directives Provider Source Sep 25, 2024 ADVANCE DIRECTIVE DISCUSSION ANTHONY IRVING [facility] Radiology Reports: +/- 30 days of [...] the Encounter. The data comes from all [place] treatment facilities. Date/Time Radiology Report Provider Source Dec 23, 2024 12:59 PM SEGMENTAL PRESSURE S, LOWER EXT(ROCK) UNILAT: ROXI WINKLER [facility] [id number] -[id number] M Exm Date: DEC 23, 2024@12:59 Req Phys: MARCUS MONTELONGO Pat Loc: [place] POD/PROCEDURE/ATT1/LD (Req Img Loc: [place] [facility] Service: Unknown (Case [id number] COMPLETE) SEGMENTAL PRESSURES, LOWER EXT(AB(VAS Detailed) CPT:45057 Reason for Study: SEE CLINICAL HISTORY Clinical History: ROCK's/Segs Indications: Diminished pulses Report Status: Verified Date Reported: DEC 24, 2024 Date Verified: DEC 24, 2024 Looper Operator E-Sig: Report: SEGMENTAL PRESSURES AND ANKLE-BRACHIAL INDEX OF LOWER EXTREMITIES Findings: Right: Right brachial arterial pressure is 149 mmHg. Multiphasic waveforms noted in the right posterior tibial and right dorsalis pedis arteries. Right toe pressure is 99 mmHg. Right-sided ORCK is 1.11 mmHg. Left: Left brachial arterial [...] Staff: TARYN TOMAS, ATTENDING PHYSICIAN Verified by voice over artist for TARYN TOMAS /TARYN TELLES [facility] Dec 11, 2024 10:15 AM FOOT-LEFT 3 OR MOR E VIEWS: ROXI WINKLER [facility] [id number] -[id number] M Exm Date: DEC 11, 2024@10:15 Req Phys: MARCUS MONTELONGO Pat Loc: [place] P[place]EDURE/ATT1/LD (Req Img Loc: [facility] Service: [place] [address] (Case [id number] COMPLETE)FOOT-LEFT 3 OR MORE VIEWS (RAD Detailed) CPT:61787 Reason for Study: trauma left 1st/2nd toes Clinical History: r/o Fx Report Status: Verified Date Reported: DEC 12, 2024 Date Verified: DEC 12, 2024 Looper Operator E-Sig: Report: FOOT-LEFT 3 OR MORE VIEWS, [...] Staff: ZBIGNIEW JULIAN, Staff Physician Verified by voice over artist for ZBIGNIEW JULIAN /ZBIGNIEW HARVEY [facility] Encounter Notes: All associated encounter notes This section contains the clinical notes associated to the Encounter. Date/Time Encounter Note(s) Provider Source Dec 02, 2024 07:43 AM HOME HEALTH INTERD ISCIPLINARY NOTE: LOCAL TITLE: [facility] INTERDISCIPLINARY PLAN OF CARE STANDARD TITLE: HOME HEALTH INTERDISCIPLINARY NOTE DATE OF NOTE: DEC 02, 2024@07:43 ENTRY DATE: DEC 02, 2024@07:44:07 AUTHOR: SHIMON PADILLA EXP COSIGNER: CORAL GREENFIELD URGENCY: STATUS: COMPLETED [facility] INTERDISCIPLINARY PLAN OF CARE Has ADDENDA Home Based Primary Care Interdisciplinary Treatment Plan Admission Date: 09/10/24 Period to cover: 12/02/24-03/01/25 Allergies: ENALAPRIL, FOSINOPRIL, LOPID, NIASPAN 500MG ER TABLET, ATENOLOL, HYDRALAZINE VASOTEC, SIMVASTATIN, AMLODIPINE BESYLATE 5MG TABLET, SEMAGLUTIDE Diet Recommendation: No Concentrated Sweets Activity level: Ad ken Mobility: -BED MOBILITY: sleeps in recliner -TRANSFERS: Sit/Stand: difficulty, increased use of R UE. Pivot Transfer: recliner <> manual w/c, significant reliance R UE. -GAIT: indoors short distances with HD rollator. Also propels self very short distance with R UE and feet in manual w/c to rollator or recliner Functional limitations: SOA, oxygen dependent, LBP, Hx of L humeral neck fracture, significant decrease L shoulder/UE AROM and strength, minimal use of L UE with mobility and ADL's, poor balance ADL deficits: Dressing upper body: slow, lower body: assist with socks. Toileting: handheld urinal, difficulty with transfers on/off commode. Bathing: assist including transfers, performed seated on shower stool. Prosthetics/equipment/devices: oxygen concentrator, HD SPC, HD rollator, handheld urinal, 20 manual w/c, back brace, portable oxygen device, clamp-on ETS, shower stool, handheld shower. On Sep ordered driller helper and non-skid socks Living arrangements: with daughter and spouse Mental Status- Behavioral concerns-none Patient safety concerns: fall risk Community home care agency involvement: [facility] and PT Emergency Preparedness Priority Code: 1-high Prognosis: Fair CODE STATUS: Full PROBLEM: DIABETES GOALS: program architect goals developed further with include: A1C less than 8 CHRONIC WILL MANAGE UNTIL DISCHARGE TARGET DATE FOR GOAL: Within the next quarter unless otherwise specified. STATUS: follows [facility]. Using Concentrated insulin pen 65 units bid with continuous dexcom monitoring.Also takes empagliflozin 12.5 mg, gabapentin 600 mg am, 900 mg noon, nd 900mg evening for neuropathy. 10/17/24 7.3 . FH RN INTERVENTIONS for routine visits: Monitor for symptoms of hypoglycemia and hyperglycemia. RN Educate /caregiver as needed on the s/s of hypo/hyperglycemia to monitor for & report. RN Educate [place]/caregiver as needed on how to manage episodes of hypo/hyperglycemia. RN Monitor medication compliance. RN Reinforce recommended diet with /caregiver. RN Collect labs as ordered. RN PROBLEM: HYPERTENSION senior living goals developed further with include: BP to be less than 140/90 Chronic will manage until discharge. TARGET DATE FOR GOAL: Within the next quarter unless otherwise specified. STATUS: BP at goal- RN INTERVENTIONS for routine visits: Monitor blood pressure, pulse, respiration every visit. RN Orthostatic blood pressure at routine visits if possible. RN Educate on signs/symptoms of high blood as needed RN Monitor and report to provider any signs/symptoms of high blood pressure ( headaches, dizziness, chest pain, peripheral edema, blurred vision, diminished urine output ,nausea, vomiting ). RN Monitor medication use every visit. RN Reinforce Recommended Diet. RN/RD Obtain 's weight at routine visit if possible. RN CONGESTIVE HEART FAILURE program architect goals developed further with [place] include: No CHF excerbations Chronic will manage until discharge- TARGET DATE FOR GOAL: Within the next quarter unless otherwise specified. STATUS: stable. Continue bumex 2 mg daily. RN INTERVENTIONS for routine visits: Monitor blood pressure, pulse, respiration every visit. RN Monitor respiratory status every visit. RN Monitor for symptoms of orthopnea- SOB when lying down when needed. RN Monitor for edema every visit. RN Monitor medication use at each visit. RN Obtain 's weight at each visit, when possible. RN Reinforce recommended diet. RN/RD [place] will report increase in edema, shortness of breath, difficulty breathing or lasting cough to [facility] staff. RN Blood work as ordered by provider. RN PROBLEM Benign Hypertrophy of prostate (enlarged prostate) program architect goals developed further with include No Urinary Tract Infections Chronic will manage until discharge TARGET DATE FOR GOAL: Within the next quarter unless otherwise specified STATUS: finasteride and tamsulosin =no signs reported of UTI RN INTERVENTIONS for routine visits: Educate as needed to report any changes in urinary habits such as bleeding, burning, hesitancy, difficulty starting stream or increase in incontinence. RN Nurse will assess for signs/symptoms of UTI at each nursing visit. RN Monitor medication compliance RN Assess voiding pattern at routine nursing visit RN Educate on signs and symptoms of urinary tract infection as needed-RN PROBLEM: Care Management for VA purposes for patients with [facility] Patient stated goal: I will participate in my PT sessions to help get stronger and decrease my falls program architect goals developed further with [place] include Patient's care needs will be coordinated within several agencies TARGET DATE FOR GOAL: Within the next quarter unless otherwise specified STATUS: Has home PT= RN INTERVENTIONS for routine visits: Patient followed by Home Health Agency: this info is found on the consult for home health Name of Agency : [facility]: PT and [facility] services- Monitor services provided by [facility] . RN Monitor for need for any equipment, supplies or specialty services provided by [facility]. RN Coordination of information between the Home Health Agency and [facility] PACT. RN PROBLEM: MEDICATION ADHERENCE/MANAGEMENT senior living goals developed further with include: Will take medications with 90 - 100% accuracy as evidenced by one or more of the following: medminder use, caregiver interview, medication list, ordering pattern, [facility] observation. TARGET DATE FOR GOAL: Within the next quarter, unless otherwise specified. Chronic- Will manage until discharge. STATUS: new patient will monitor for compliance- RN INTERVENTIONS for routine visits: Remind [place]/Caregiver to report any OTC use to [facility]. RN Monitor medication adherence every visit. RN Educate [place]/caregiver on how to reorder medications as needed. RN Provide education on medication regimen, purpose, and side effects at initial assessment, with new medications, when medications changed, and as needed. 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 Chronic will manage until discharge. TARGET DATE FOR GOAL: Within the next quarter unless otherwise specified. STATUS: stable. Coninue venlafaxine SA 150 mg, tramadol 50 mg total of 4 tablets daily, and methocarbamol 750 bid for muscle spasm, and uses lidocaine patches. Follows pain pharmacology team. RN INTERVENTIONS for routine visits: Monitor medication compliance at each visit. RN Document assessment and effect of pain medications and comfort measures with each visit RN Encourage /cg to notify [facility] of new or uncontrolled pain. RN Assess for pain at home visits. RN Encourage use of nonpharmacological pain methods as needed RN PROBLEM: RESPIRATORY/SHORTNESS OF BREATH program architect goals developed further with include: No respiratory infections Chronic will manage until discharge. TARGET DATE FOR GOAL: Within the next quarter unless otherwise specified. STATUS: Continue Stiolto and albuterol inhalers, home oxygen 2-3 liters. No resp infections this past quarter= RN INTERVENTIONS for routine visits: Oxygen at 3liters/minute per nasal cannula/mask, as needed, for dyspnea/at all times. RN Educate [place] in use of respiratory medications and inhalers, scheduled and as needed per provider order. RN Nurse to monitor dyspnea and associated symptoms, escape inhaler use, oxygen use and sputum production every visit. Monitor for signs and symptoms of respiratory infections RN Educate as needed on signs and symptoms of respiratory infection RN Pulse Ox every visit and report o2 Sat <89% to provider if needed. RN Instruct on all home oxygen safety guidelines and oxygen maintenance at all routine nursing visits. HEALTH MAINTENANCE PROBLEM: SAFETY ISSUE - POTENTIAL FOR INJURY FROM FALLS GOALS: 1. [place] will have #1 no more than one fall per quarter, #2 no falls with bone fracture, #3 no falls with a brain bleed and #4 no falls resulting in an emergency department visit. DATE FOR GOAL: Within the next 90 days, unless otherwise specified. STATUS: goal met, x1 fall reported this quarter. PT - x1 fall 28 Sep 2024: DETAILS: In bathroom. Standing and trying to change [...] declined transport to ED for further evaluation. EDUCATION: - Home visit 01 Oct 2024: Edu on multiple items to increase overall safety, especially in bathroom but most items declined. Ordered driller helper and non-skid socks to decrease fall risk. Instructed to apply ice x20-30 minutes to L hip due to pain from fall. Recommended further eval at local ED and instructed to seek further eval if pain and symptoms do not improve PROBLEM: ADVANCE DIRECTIVES/LIFE PLANNING stated goal: I will do advance directive next visit. senior living goals developed further with [place] include: TARGET DATE: Quaterly STATUS: Lives at home with his Advance Directive?No Yes on file in [facility] Living Will?No Yes on file in [employer] Durable Power of Fitness Services Manager for Health Care? No/Yes Who? Full name and phone # INTERVENTIONS: Provide education and ongoing review of Advance Directives. SW Assist patient in completion of new Advance Directive if desired. SW PROBLEM: LONG-TERM CARE PLANNING [place] stated goal: I want to stay home. senior living goals developed further with [place] include: STATUS: Staying at home with and daughter caring for him. TARGET DATE: Quarterly INTERVENTIONS: Assist with placement if that becomes needed. Assist and caregiver/medical decision maker in discussing life plans in relation to needs and available supports/services. SW Provide options of care and assist with any placement issues. SW Frequency of [facility] home or [facility] visits : frequency placed on subsequent care plans: PROVIDER: : Provider visit frequencies will take into consideration the [place]'s goals of care and preferences. [place] will have a comprehensive provider evaluation annually. Additional provider visits will be conducted as clinically indicated and driven by quarterly IDT meetings or by changes that would require provider [id number] visit. RN: Every 4-8 weeks and 3 additional visits as needed in the quarter for medication management, post hospitalization assessment, symptom management, collection of labs and patient/caregiver education. SW: Annually, and 3 additional visits as needed in the quarter for crisis management, caregiver stress, housing issues, establishment of advance directives, financial issues, VA benefits, counseling, and transportation. Visit every 4-6 months as needs are being met at home. Will visit sooner if needed. PT: No visits currently scheduled or indicated this quarter. Anticipate 1 follow up visits (face to face, [facility], telephone) this quarter only if clinically indicated for any of the following: change in functional status or safety, post fall evaluation and education; evaluate equipment needs and educate and/or caregiver on safe use. RD: RD will complete a comprehensive in-home nutrition assessment as clinically indicated. Anticipate 0 follow up visits this quarter ([facility], telephone, in person) if clinically indicated for assessment and treatment of any of the following: Nutrition education/counseling, identifying and intervening on significant drug-nutrient interactions and drug-nutrient depletions, assessing ability to prepare recommended meals or administer enteral feeding, identifying food insecurity, performing in home swallow evaluations, identifying and reassessing malnutrition/effectiveness of oral nutrition supplements. Members present: Yemi Tafoya PsyD for Bill Pickens PsyD; Danay Irving LCSW, Reji Bhagat, PT; Dr Mo, Coral Greenfield covering for Mari Dewey Pharm D, Alena Padilla RN, Tali Vasquez program medical director, Keshia Myrick RD Target date for next review 02/24/25 /angie/ SHIMON PADILLA RN Signed: 12/02/2024 14:52 /es/ Coral Greenfield, MSN, AOC PLANS INTELLIGENCE OFFICER Nurse Practitioner, [facility] Cosigned: 12/03/2024 07:19 Receipt Acknowledged By: 12/02/2024 15:21 /es/ Mari Freeman, Pharm.D., B.C.P.S Clinical Pharmacist - [facility] 12/02/2024 15:39 /es/ Keshia Myrick, RD, LD Clinical Dietitian 12/02/2024 15:39 /es/ YEMI TAFOYA PSYCHOLOGIST 12/02/2024 15:12 /es/ FLORY BUCHANAN AMSA 12/02/2024 15:28 /es/ CALDERON MO PHYSICIAN 12/02/2024 15:28 /es/ Tali Vasquez, MSN, RN, CNL [facility] Bleacher Operator/Nurse Embossing Machine Tender 12/02/2024 15:14 /es/ DANAY IRVING 12/03/2024 15:57 /es/ REJI BHAGAT, PT, DPT PHYSICAL THERAPIST, [facility] 01/15/2025 ADDENDUM STATUS: COMPLETED PROBLEM: SAFETY ISSUE - POTENTIAL FOR INJURY FROM FALLS GOALS: 1. will have #1 no more than one fall per calendar month, #2 no falls with bone fracture, #3 no falls with a brain bleed and #4 no falls resulting in an emergency department visit. DATE FOR GOAL: Within the next 90 days, unless otherwise specified. STATUS: goal not met, x2 fall reported this quarter. PT - x1 fall 06 December 2024: DETAILS: Patient stated that he got up to to go the bathroom and his rollator Came apart causing him to fall to the floor. UE pain. TREATMENT: none. - x1 fall 30 December 2024: DETAILS: reported he was coming from the bathroom when his legs became weak and he lost his balance. Using rollator. INJURY: no. TREATMENT: none EDUCATION: - Home visit 01 Oct 2024: Edu on multiple items to increase overall safety, especially in bathroom but most items declined. Ordered driller helper and non-skid socks to decrease fall risk. Instructed to apply ice x20-30 minutes to L hip due to pain from fall. Recommended further eval at local ED and instructed to seek further eval if pain and symptoms do not improve - ordered replacement HD rollator - Has been evaluated for power mobility and will be issued powerchair in near future. Will increase safety with mobility /es/ REJI BHAGAT PT, DPT PHYSICAL THERAPIST, [facility] Signed: 01/15/2025 14:40 01/22/2025 ADDENDUM STATUS: COMPLETED Activity level: Ad ken Mobility: -BED MOBILITY: sleeps in lift chair -TRANSFERS: Sit <> Stand: difficulty, increased use of UE's, rollator, increase lift chair height. Pivot Transfer: recliner <> manual w/c, significant reliance UE's. -GAIT: indoors short distances with HD rollator. Also propels self very short distance with R UE and feet in manual w/c to rollator or recliner Functional limitations: SOA, oxygen dependent, LBP, Hx of L humeral neck fracture, significant decrease L shoulder/UE AROM and strength, minimal use of L UE with mobility and ADL's, poor balance ADL deficits: Dressing upper body: slow, lower body: assist with socks. Toileting: handheld urinal, difficulty with transfers on/off commode. Bathing: assist including transfers, performed seated on shower stool. Prosthetics/equipment/devices: oxygen concentrator, HD SPC, HD F22 rollator, handheld urinal, 20 manual w/c, back brace, portable oxygen device, driller helper, non-skid socks size X wide, clamp-on ETS, shower stool, handheld shower. On 22 January requested Dycem non skid pad PROBLEM: SAFETY ISSUE - POTENTIAL FOR INJURY FROM FALLS GOALS: 1. [place] will have #1 no more than one fall per calendar month, #2 no falls with bone fracture, #3 no falls with a brain bleed and #4 no falls resulting in an emergency department visit. DATE FOR GOAL: Within the next 90 days, unless otherwise specified. STATUS: goal not met, x2 fall reported this quarter. PT - x1 fall 06 December 2024: DETAILS: Patient stated that he got up to to go the bathroom and his rollator Came apart causing him to fall to the floor. UE pain. TREATMENT: none. - x1 fall 30 December 2024: DETAILS: [place] reported he was coming from the bathroom when his legs became weak and he lost his balance. Using rollator. INJURY: no. TREATMENT: none EDUCATION: - ordered replacement HD rollator - Has been evaluated for power mobility and will be issued powerchair in near future. Will increase safety with mobility - Home visit 16 Jan 2025: reviewed falls education and instructed to don nonskid socks and/or shoes prior to sit/stand transfers so feet do not slide forward. Ordered non-skid mat also help with keeping feet within base of support and reduce risk of falls PT: Comprehensive in-home environmental and functional assessment every 6-12 months. Up to 3 follow up visits (face to face, VVC, telephone) this quarter as clinically indicated for any of the following: change in functional status or safety, post fall evaluation and education; evaluate equipment needs and educate and/or caregiver on safe use. /angie/ REJI BHAGAT PT, DPT PHYSICAL THERAPIST, [facility] Signed: 01/22/2025 08:01 [facility]
--- OUTSIDE RECORDS SUMMARY | 2024-12-02 06:19 | XMS_ITS | Encounter Summary ---
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 Name Role Phone LAURY KENYON Primary [...] Name Patient's Relationship to Policy Pascual HUMANA CLAIMS/[place] MEDICAL PREFERRED PROVIDER ORGANIZAT ION (PPO) ARELIS ON [email or web address] Jun 03, 2017 [id number] CATHI ROXI PATIENT HUMANA [facility] (WNR) MEDICARE ADVANTAGE [facility] (WN) Sep 03, 2019 [id number] ROXI WINKLER JR PATIENT HUMANA [facility] (WNR) MEDICARE ADVANTAGE [facility] (WN) Sep 03, 2019 [id number] ROXI WINKLERA MCR (WNR) MEDICARE ADVANTAGE HUMAN A INSUR ANCE COM Apr 04, 2019 [id number] ROXI WINKLERA MCR (WNR) MEDICARE ADVANTAGE [facility] (WNR) Apr 03, 2019 [id number] ROXI WINKLERA MCR (WNR) MEDICARE ADVANTAGE MCR (WNR) Apr 03, 2019 [id number] ROXI WINKLERA MCR (WNR) MEDICARE ADVANTAGE [facility] (WNR) Apr 03, 2019 [id number] ROXI WINKLER JR PHARMACY PRESCRIPT ION NONE Jun 03, 2017 NONE [id number] [phone] ROXI WINKLER MEDICARE PART D ([place]) MEDICARE (M) PART D Sep 03, 2023 PART D [id number] [phone] [id number] ROXI MEDINA PATIENT Selected Encounter This section includes the information on record at [place] for the Encounter. Date/Time Encounter Type Encounter Description Reason Provider Source Dec 02, 2024 10:19 AM Outpatient Encounter [facility] - PHYSICIAN ICD-10-CM Z91.81 History of falling CALDERON RAY Adela Encounter Template Text not used by [place] Assessments - Encounter Diagnoses This section includes the primary and secondary diagnoses documented for the Encounter. Date/Time Primary/Secondary Diagnosis Diagnosis Name Provider Source Dec 02, 2024 11:05 AM PRIMARY History of falling CALDERON RAY [facility] Dec 02, 2024 11:05 AM SECONDARY Chronic diastolic (congestive) heart failure CALDERON RAY [facility] Dec 02, 2024 11:05 AM SECONDARY Chronic obstructive pulmonary disease, unspecified CALDERON RAY [facility] Dec 02, 2024 11:05 AM SECONDARY Chronic respiratory failure with hypoxia CALDERON RAY [facility] Dec 02, 2024 11:05 AM SECONDARY Essential (primary) hypertension CALDERON RAY [facility] Dec 02, 2024 11:05 AM SECONDARY Type 2 diabetes mellitus without complications CALDERON RAY [facility] Dec 02, 2024 11:05 AM SECONDARY Unspecified atrial fibrillation CALDERON RAY [facility] Plan of Treatment: Future Appointments (+ 6 months) and Future Tests (+/- 45 days) The Plan of Treatment section includes future care activities for the patient from all [place] treatmentfacilities. This section includes future appointments and future orders which are active, pending or scheduled. Future Appointments This section includes appointments that were scheduled to occur 6 months from the date of the Encounter, up to a maximum of 20 appointments. The data comes from all [place] treatment facilities. Appointment Date/Time Appointment Type Appointme nt Facility Name Dec 11, 2024 10:00 AM AMBULATORY - [place]GERY [place] [facility] Dec 23, 2024 01:30 PM AMBULATORY - SURGERY [place] [facility] January 06, 2025 10:30 AM AMBULATORY - REHAB MEDICIN [facility] January 06, 2025 02:00 PM [facility] January 30, 2025 11:00 AM AM[facility]ORY - NONE [place] [facility] Feb 17, 2025 02:00 PM AMBULATORY - SURGERY [place] [facility] Apr 14, 2025 10:30 AM AMBULATORY - MEDICINE [facility] Lab Results: +/- 30 [...] Type Comment Nov 21, 2024 12:38 PM [facility] N PANEL 1 PLASMA Specimen [...] Nov 21, 2024 12:28 PM Reporting Lab: [address] [id number] Performing Lab: [address] [id number] CREATININE 1.17 mg/dL 0.72-1.25 UREA NITROGEN 15 mg/dL 9-25 GLUCOSE 282 mg/dL H 74-100 SODIUM 133 mmol/L L 136-145 POTASSIUM 4.1 mmol/L 3.5-5.1 CHLORIDE 89 mmol/L L 98-107 CO2 38 mmol/L H 22-29 CALCIUM 9.4 mg/dL 8.4-10.2 ANION GAP 6 meq/L 3-19 eGFR (CKD-EPI) 67 Vital Signs: All taken on the encounter date This section contains inpatient and outpatient Vital Signs collected on the date of the Encounter. Date/Time Temperature Pulse Blood Pressure Respiratory Rate SP02 Pain Height Weight Body Mass Index Source Dec 02, 2024 12:40 PM 97.9 82 128/62 18 3 [place] [facility] Social History: Smoking Status (Most current) and Tobacco Use (All prior to encounter date) This section includes the most current, and the historical, smoking and tobacco- related health factors from the [place] facility where the Encounter took place. Current Smoking Status This section includes the most current smoking, or tobacco-related health factor, from the [place] facility where the Encounter took place. Date/Time Current Smoking Status Comment Facil ity Sep 06, 2023 10:00 AM VA-TOBACCO NEVER USED [facility] Tobacco Use History This section includes a history of the smoking, or tobacco-related health factors, that were collected on or before the date of the Encounter. The data comes from the [place] facility where the Encounter took place. Date/Time Smoking Status/Tobacco Use Comment F acility Jun 20, 2022 10:30 AM VA-TOBACCO NEVER USED [facility] Jul 27, 2020 03:22 PM VA-TOBACCO NEVER USED [facility] Jul 19, 2018 11:24 AM VA-TOBACCO NEVER USED [facility] Mar 18, 2018 10:14 AM V9 LIFETIME NON-USER OF TOBACCO [facility] Mar 29, 2017 07:47 AM V9 LIFETIME NON-USER OF TOBACCO [facility] Apr 27, 2016 08:56 AM V9 LIFETIME NON-USER OF TOBACCO [facility] May 27, 2015 09:53 AM V9 LIFETIME NON-USER OF TOBACCO [facility] Jun 29, 2014 02:25 PM V9 LIFETIME NON-USER OF TOBACCO [facility] Feb 10, 2013 02:08 PM V9 LIFETIME NON-USER OF TOBACCO [facility] Mar 19, 2012 09:36 AM V9 LIFETIME NON-USER OF TOBACCO [facility] Dec 13, 2010 10:09 AM V9 LIFETIME NON-USER OF TOBACCO [facility] Aug 13, 2006 09:26 AM V9 LIFETIME NON-USER OF TOBACCO [facility] Apr 24, 2006 02:37 PM HF V9 LIFETIME NON-SMOKER [facility] Advance Directives: All historical and current Section Date Range: From patient's date of to the date document was created. This section includes ALL of a patient's completed or amended [place] Advance and Rescinded Directives. The entries below indicate that a directive exists for the patient, but an actual copy is not included with this document. The data comes from all [place] facilities. Date Advance Directives Provider Source Sep 25, 2024 ADVANCE DIRECTIVE DISCUSSION ANTHONY [facility] Radiology Reports: +/- 30 days [...] the Encounter. The data comes from all [place] treatment facilities. Date/Time Radiology Report Provider Source Dec 23, 2024 12:59 PM SEGMENTAL PRESSURE S, LOWER EXT(ROCK) UNILAT: ROXI WINKLER [facility] [id number] -[id number] M Exm Date: DEC 23, 2024@12:59 Req Phys: MARCUS MONTELONGO Loc: [place] POD/PROCEDURE/ATT1/LD (Req Img Loc: [place] [facility] Service: Unknown (Case [id number] COMPLETE) SEGMENTAL PRESSURES, LOWER EXT(AB(VAS Detailed) CPT:90577 Reason for Study: SEE CLINICAL HISTORY Clinical History: ROCK's/Segs Indications: Diminished pulses Report Status: Verified Date Reported: DEC 24, 2024 Date Verified: DEC 24, 2024 Therapeutic Recreation Leader E-Sig: Report: SEGMENTAL PRESSURES AND ANKLE-BRACHIAL INDEX [...] Staff: TARYN TOMAS, ATTENDING PHYSICIAN Verified by chief orthoptist for TARYN TOMAS /TARYN TELLES [facility] Dec 11, 2024 10:15 AM FOOT-LEFT 3 OR MOR E VIEWS: ROXI WINKLER [facility] [id number] -1955 M Exm Date: DEC 11, 2024@10:15 Req Phys: JAYDAMARCUS Pat Loc: [place] POD/PROCEDURE/ATT1/LD (Req Img Loc: [facility] Service: [place] [address] (Case [id number] COMPLETE)FOOT-LEFT 3 OR MORE VIEWS (RAD Detailed) CPT:66935 Reason for Study: trauma left 1st/2nd toes Clinical History: r/o Fx Report Status: Verified Date Reported: DEC 12, 2024 Date Verified: DEC 12, 2024 Therapeutic Recreation Leader E-Sig: Report: FOOT-LEFT 3 OR MORE VIEWS, [...] Staff: ZBIGNIEW JULIAN, Staff Physician Verified by chief orthoptist for ZBIGNIEW JULIAN /ZBIGNIEW HARVEY [facility] Encounter Notes: All associated encounter notes This section contains the clinical notes associated to the Encounter. Date/Time Encounter Note(s) Provider Source Dec 02, 2024 10:19 AM [facility] ATTENDING NOT E: LOCAL TITLE: [facility] ATTENDING NOTE STANDARD TITLE: [facility] ATTENDING NOTE DATE OF NOTE: DEC 02, 2024@10:19 ENTRY DATE: DEC 02, 2024@10:19:52 AUTHOR: CALDERON RAY EXP COSIGNER: URGENCY: STATUS: COMPLETED I have attended this quarterly Interdisciplinary Team Meeting, reviewed the chart including the medication list, and participated in the discussion and supervised the care planning of this patient. Medical surrogates: No AD, is NOK. Living situation: home with his and daughter Diet recommendations: no concentrated sweets Weight: lost 18 lb, voluntary Activity & functional level: sleeps in a recliner, uses rollator short distances indoors or manual wheelchair Needs assistance in: dressing, transfer from toilet, bathing Falls this quarter: X1 fall, trying to change clothes - had a long lie and EMS called, with later hospitalization. Declined addition safety equipment. ED visits/Hospitalizations this quarter: none Memory & Mood status: stable ASSESSMENT & PLAN: History of Falling - hospitalization post fall, [facility] PT follows. Contusion present. Essential Hypertension - BP goals met Diabetes Mellitus Type 2 - goals met at 7.3, liberalized, follows DM clinic COPD on Chronic Respiratory Failure with Hypoxia - on home O2, stable status Chronic Diastolic Congestive Heart Failure - stable, compensated. Follows Cardiology. Atrial Fibrillation - new onset, diagnosed by Cardio clinic, planning to start anticoagulation when post fall hematoma resolves. Code Status: Full Code Care Plan details are in the [facility] Interdisciplinary Plan of Care Note. Estimated time (minutes) spent in preparations, discussions and care plan review: / CALDERON RAY PHYSICIAN Signed: 12/02/2024 11:06 CALDERON RAY [facility]
--- OUTSIDE RECORDS SUMMARY | 2024-12-02 08:30 | XMS_ITS | Encounter Summary ---
Author Name [facility] Organization [facility] Address [address] [place] [address] Care Team Providers Care Front End Engineer Name Role Phone LAURY KENYON Primary [...] ON [employer] Jun 03, 2017 [id number] ROXI WINKLRE PATIENT [employer] [facility] (WNR) MEDICARE ADVANTAGE [facility] (WN) Sep 03, 2019 [id number] ROXI WINKLER JR PATIENT [employer] [facility] (WNR) MEDICARE ADVANTAGE [facility] (WNR) Sep 03, 2019 [id number] [phone] ROXI WINKLERA MCR (WNR) MEDICARE ADVANTAGE HUMAN A INSUR ANCE COM Apr 04, 2019 [id number] ROXI WINKLERA MCR (WNR) MEDICARE ADVANTAGE [facility] (WNR) Apr 03, 2019 [id number] ROXI WINKLERA MCR (WNR) MEDICARE ADVANTAGE [facility] (WNR) Apr 03, 2019 [id number] ROIX WINKLERA MCR (WNR) MEDICARE ADVANTAGE [facility] (WNR) Apr 03, 2019 [id number] ROXI WINKLER JR PHARMACY PRESCRIPT ION NONE Jun 03, 2017 NONE [id number] ROXI WINKLER MEDICARE PART D (WNR) MEDICARE (M) PART D Sep 03, 2023 PART D [id number] ROXI WINKLER JR PATIENT Selected Encounter This section includes the information on record at ME for the Encounter. Date/Time Encounter Type Encounter Description Reason Provider Source Dec 02, 2024 12:30 PM HHS/HOSPICE OF RN EA 15 MIN PC Nursing (RN / LP) ICD-10-CM J44.9 Chronic obstructive pulmonary disease, unspecified SHIMON SINCLAIR Adela Encounter Template Text not used by ME Assessments - Encounter Diagnoses This section includes the primary and secondary diagnoses documented for the Encounter. Date/Time Primary/Secondary Diagnosis Diagnosis Name Provider Source Dec 02, 2024 03:46 PM PRIMARY Chronic obstructive pulmonary disease, unspecified SHIMON SINCLAIR [facility] Dec 02, 2024 03:46 PM SECONDARY Chronic pain syndrome SHIMON SINCLAIR [facility] Dec 02, 2024 03:46 PM SECONDARY Essential (primary) hypertension SHIMON SINCLAIR [facility] Dec 02, 2024 03:46 PM SECONDARY Type 2 diabetes mellitus without complications SHIMON SINCLAIR [facility] Plan of Treatment: Future Appointments (+ 6 months) and Future Tests (+/- 45 days) The Plan of Treatment section includes future care activities for the patient from all [place] treatmentfacilities. This section includes future appointments and future orders which are active, pending or scheduled. Future Appointments This section includes appointments that were scheduled to occur 6 months from the date of the Encounter, up to a maximum of 20 appointments. The data comes from all [place] treatment facilities. Appointment Date/Time Appointment Type Appointme nt Facility Name Dec 11, 2024 10:00 AM AMBULATORY - SURGERY [place] [facility] Dec 23, 2024 01:30 PM AMBULATORY - SURGERY [place] [facility] January 06, 2025 10:30 AM AMBULATORY - REHAB MEDICIN E [facility] January 06, 2025 02:00 PM [facility] January 30, 2025 11:00 AM [facility]ORY - NONE [place] [facility] Feb 17, 2025 02:00 PM AMBULATORY - SURGERY [facility] Apr 14, 2025 10:30 AM AMBULATORY - MEDICINE [facility] Lab Results: +/- 30 days of the encounter This section includes the Chemistry and Hematology Lab Results on record with ME for the patient. Radiology Reports and Pathology Reports are provided separately, in subsequent sections. Lab Results This section contains the Chemistry/Hematology Results that were resulted 30 days before or 30 daysafter the date of the Encounter. Date/Time Source Result Type Result - Unit Interpretation Reference Range Specimen Type Comment Nov 21, 2024 12:38 PM [facility] PANEL 1 PLASMA Specimen Type: PLASMA Comment: [...] Nov 21, 2024 12:28 PM Reporting Lab: [address] [id number] Performing Lab: [address] [id number] CREATININE 1.17 mg/dL 0.72-1.25 UREA NITROGEN 15 [...] and tobacco- related health factors from the [place] facility where the Encounter took place. Current Smoking Status This section includes the most current smoking, or tobacco-related health factor, from the [place] facility where the Encounter took place. Date/Time Current Smoking Status Comment Anita bartholomew May 05, 2016 01:12 AM NON-TOBACCO USE INPATIENT [facility] Tobacco Use History This section includes a history of the smoking, or tobacco-related health factors, that were collected on or before the date of the Encounter. The data comes from the [place] facility where the Encounter took place. Date/Time Smoking Status/Tobacco Use Comment F acility Nov 24, 2015 04:48 PM NON-TOBACCO USE INPATIENT [facility] Oct 01, 2014 07:15 PM NON-TOBACCO USE INPATIENT [facility] Apr 10, 2005 01:20 PM HF V9 LIFETIME NON-SMOKER [facility] Nov 24, 2003 03:11 PM HF V9 LIFETIME NON-SMOKER [facility] Oct 07, 2002 02:26 PM HF V9 LIFETIME NON-SMOKER [facility] Advance Directives: All historical and current Section Date Range: From patient's date of to the date document was created. This section includes ALL of a patient's completed or amended [place] Advance and Rescinded Directives. The entries below indicate that a directive exists for the patient, but an actual copy is not included with this document. The data comes from all [place] facilities. Date Advance Directives Provider Source Sep 25, 2024 ADVANCE DIRECTIVE DISCUSSION ANTHONY IRVING [facility] Radiology Reports: +/- 30 days of the [...] the Encounter. The data comes from all [place] treatment facilities. Date/Time Radiology Report Provider Source Dec 23, 2024 12:59 PM SEGMENTAL PRESSURE S, LOWER EXT(ROCK) UNILAT: ROXI WINKLER [facility] [id number] -[id number] M Exm Date: DEC 23, 2024@12:59 Req Phys: MARCUS MONTELONGO Loc: [place] POD/PROCEDURE/ATT1/LD (Req Img Loc: [place] [facility]AS [facility] Service: Unknown (Case [id number] COMPLETE) SEGMENTAL PRESSURES, LOWER EXT(AB(VAS Detailed) CPT:86909 Reason for Study: SEE CLINICAL HISTORY Clinical History: ROCK's/Segs Indications: Diminished pulses Report Status: Verified Date Reported: DEC 24, 2024 Date Verified: DEC 24, 2024 Nipple Machine Operator E-Sig: Report: SEGMENTAL PRESSURES AND ANKLE-BRACHIAL [...] Staff: TARYN TOMAS, ATTENDING PHYSICIAN Verified by herbicide sprayer for TARYN TOMAS /TARYN TELLES [facility] Dec 11, 2024 10:15 AM FOOT-LEFT 3 OR MOR E VIEWS: ROXI WINKLER [facility] [id number] -[id number] M Exm Date: DEC 11, 2024@10:15 Req Phys: JAYDAMARCUS Jasmin Loc: [place] POD/PROCEDURE/ATT1/LD (Req Img Loc: [facility] Service: [place] [address] (Case [id number] COMPLETE)FOOT-LEFT 3 OR MORE VIEWS (RAD Detailed) CPT:29561 Reason for Study: trauma left 1st/2nd toes Clinical History: r/o Fx Report Status: Verified Date Reported: DEC 12, 2024 Date Verified: DEC 12, 2024 Nipple Machine Operator E-Sig: Report: FOOT-LEFT 3 OR MORE [...] Staff: ZBIGNIEW JULIAN, Staff Physician Verified by herbicide sprayer for ZBIGNIEW JULIAN /ZBIGNIEW HAR[facility] Encounter Notes: All associated encounter notes This section contains the clinical notes associated to the Encounter. Date/Time Encounter Note(s) Provider Source Dec 03, 2024 07:33 AM ADDENDUM: LOCAL TITLE: Addendum STANDARD TITLE: ADDENDUM DATE OF NOTE: DEC 03, 2024@07:33:55 ENTRY DATE: DEC 03, 2024@07:33:56 AUTHOR: CORAL GREENFIELD COSIGNER: URGENCY: STATUS: COMPLETED [facility] CM-Ordered docusate/senna one tablet BID for constipation. /angie/ Coral Greenfield, MSN, CENTRAL OFFICE REPAIRER Nurse Practitioner, [facility] Signed: 12/03/2024 07:34 Receipt Acknowledged By: 12/03/2024 07:56 /angie/ Mari Freeman, Pharm.D., B.C.P.S Clinical Pharmacist - [facility] 12/03/2024 07:35 /es/ SHIMON SINCLAIR RN --- Original Document --- 12/02/[address] [facility] NURSING PROGRESS: [facility] FOLLOW-UP NOTE Date of visit: Dec Time spent with patient: 60 min Date of admission to [facility]: Patient Identified by: Name, Facial Recognition, Known Address Source of Information: Patient, Spouse What matter most to you in your life right now? Being able to stay home and spend time with my family means so much to me right now MEDICATIONS: Active Medications: Active Outpatient Medications (including Supplies): ALBUTEROL 90MCG (CFC-F) 200D ORAL INHL INHALE 2 PUFFS BY ACTIVE MOUTH EVERY 6 HOURS NEEDED FOR SHORTNESS OF BREATH BIKTARVY 50/200/25 TAB TAKE 1 TABLET BY MOUTH DAILY ACTIVE Indication: INFECTION BUMETANIDE 2MG TAB TAKE ONE TABLET BY MOUTH DAILY FOR ACTIVE FLUID (TAKE ADDITIONAL EVENING DOSE FOR 3LB WEIGHT GAIN IN 24 HOURS OR 5LB WEIGHT GAIN IN 1 WEEK) CLEANSER,WOUND SKINTEGRITY TOP SPRAY SPRAY TO AFFECTED ACTIVE AREA NEEDED Indication: FOR WOUND CARE DRESSING,HONEY TOP PASTE APPLY SMALL AMOUNT TO AFFECTED ACTIVE AREA DIRECTED Indication: FOR WOUND CARE FINASTERIDE 5MG TAB TAKE ONE TABLET BY MOUTH DAILY FOR ACTIVE PROSTATE GABAPENTIN 300MG CAP TAKE TWO CAPSULES BY MOUTH EVERY PENDING MORNING AND TAKE THREE CAPSULES EVERY EVENING AND TAKE THREE CAPSULES AT BEDTIME Indication: FOR NERVE PAIN GABAPENTIN 300MG CAP TAKE TWO CAPSULES BY MOUTH EVERY ACTIVE MORNING AND TAKE THREE CAPSULES EVERY EVENING AND TAKE THREE CAPSULES AT BEDTIME Indication: FOR NERVE PAIN GAUZE PAD 4IN X 4IN NONSTERILE USE GAUZE AFFECTED AREA ACTIVE DIRECTED Indication: WOUND CARE GLUCOSE SENSOR DEXCOM G7 USE SENSOR DIRECTED NEEDED ACTIVE (S) Indication: FOR BLOOD SUGAR MONITORING INSULIN CONC REG HUM 500 UNT/ML KWIKPEN INJECT 60 UNITS ACTIVE UNDER THE SKIN EVERY MORNING AND INJECT 50 UNITS EVERY EVENING -KEEP REFRIGERATED UNTIL PEN IN USE, ONCE IN USE DISCARD AFTER 28 DAYS Indication: FOR BLOOD SUGAR LIDOCAINE 5% 5IN X 6IN PATCH APPLY 2 PATCHES TO SKIN DAILY ACTIVE NEEDED FOR PAIN. (LEAVE ON 12 HOURS, THEN REMOVE FOR 12 HOURS) METHOCARBAMOL 750MG TAB TAKE ONE TABLET BY MOUTH EVERY 6 ACTIVE HOURS NEEDED FOR MUSCLE SPASM NEEDLE,PEN 31G,8MM USE NEEDLE NEEDLE,PEN 31G,5/16IN DEVICE ACTIVE DIRECTED FOR USE WITH U500 KWICKPEN OLODATEROL/TIOTROP 2.5MCG/ACTUAT 60D INH INHALE 2 PUFFS [...] NASAL CANNULA DAILY ACTIVE 23 Total Medications Zeaf-war-vdheblw products used by patient: None Medications/OTC/supplements started and/or discontinued since last [facility] visit. Per [facility] medication record- Medication list compared with list/medication bottles in the home: No medication discrepancies were identified. Has the patient missed any doses since the last visit?* No Updated medication list was provided for the patient/caregiver: during the visit Education Provided: Education including regimen, indication for use, potential side effects, and interactions provided for the following medications: Patient has a good understanding of his medications-their use and side effects-has a medical background- Medication education and updated medication sheet provided to: Patient, Spouse Patient/caregiver indicated understanding by: Verbalization Medications set up by: Caregiver HOME SAFETY ASSESSMENT: No Unsound structure No Unsafe functional barriers (stairs, etc.) No Unsafe placement of rugs, cords, furniture No Weapons in the home N/A Weapons secured in an area away from the area of care provision No Inadequate Heating/Electricity No Inadequate Cooking Facilities No Inadequate Sleeping Arrangements No Inadequate Ventilation No Inadequate [place] No Unsafe Storage of Supplies/Equipment No Presence of Infestation of Pests Yes Functioning Smoke Alarm Present No Fire Extinguisher Present Yes Fire Exit Plan No Use of Restraints Yes Home is adaptable for Home Care No Smoking materials present in the home N/A Pets secured in an area away from the area of care provision No Additional safety concerns: Temperature: Temperature: 97.9 F (36.6 C) Pulse: Pulse: 82 Pulse Oximetry: 96 Respirations: Respirations: 18 Blood Pressure: Blood Pressure: 128/62 Pain: Pain: 3 OXYGEN IN THE HOME: [...] risks noted// Patient/caregiver response to education: Verbalizes understanding PAIN EVALUATION: Patient answers YES to Do you have pain? question. Pain Scale: 3 Sometimes distracts me Type of pain: Dull Location of current pain: low back and left shoulder- Patient's acceptable pain level: 4 Chronic Onset/Duration: comes and goes frequently Therapeutic Actions Taken: Pharmacological Measures: Coninue venlafaxine SA 150 mg, tramadol 50 mg total of 4 tablets daily, and methocarbamol 750 bid for muscle spasm, and uses lidocaine patches. Follows pain pharmacology team. The pain affects your: Sleep, Physical activity, Concentration, Activity NEUROLOGICAL STATUS: No problems noted The patient is currently: Alert, Oriented to person, Oriented to place, Oriented to time, Oriented to situation, Follows verbal commands, Pupils [employer]AR[employer] Education Provided: Review of s/s that need immediate medical [...] under Do you feel suicidal today? No No CARDIOVASCULAR STATUS: unable to take DOAC d/t bilateral hematomas from inpatient injections. Takes metoprolol 100 mg bid for rate control. Digoxin was not renewed per cards note. Saw cardiology on 11/21- Advised that DOAC had been approved but would not be sent out until his hematoma was lot smaller and or gone-patient voiced understanding. Heart Sounds: Regular Pulses: Right Radial:Palpable Strong (+2) Left Radial: Palpable Strong (+2) Right Pedal: Palpable Strong (+2) Left Pedal: Palpable Strong (+2) Edema: Lower Extremities: Bilateral Trace Education Provided: Reinforced diet recommendations, S/s of hyper/hypotension, take medications as prescribed, S/s that require immediate medication attention (s/s of acute WI, palpitations, ect...), Notify [facility] of new or [...] of abdomen-says it hurts- Bowel Movements: Normal at this visit-stated that he had trouble with constipation last week-stated he did not realize that his bowels had not moved for 9 days-he had to give himself an enema-would like something for constipation. Last BM: yesterday Frequency: EVERY COUPLE OF [...] on the lower right side of his abdomen-it is smaller-and no pain at all-has dry scabbed areas on the toes of his left foot-they are dried up and no drainage noted. MOBILITY: Patient is ambulatory with assistive devices: Rollator, Wheelchair, Patient extremety strength is: All extremities strong [...] teach on HTN COPD CHF Diabetes BPH Visit scheduled for on or around 12/31. PCP, Patient stated he had an issue with constipation last week-he is asking for sennosides to help when this happens-stated this time he went 9 days and had to do an enema for relief. No open areas-at this visit-conts with his PT. /angie/ SHIMON SINCLAIR RN Signed: 12/02/2024 15:46 Receipt Acknowledged By: 12/03/2024 07:33 /angie/ Coral Greenfield, MSN, CENTRAL OFFICE REPAIRER Nurse Practitioner, [facility] for LAURY GREENFIELD,CORAL TIRADO-KAREND [facility] Dec 02, 2024 03:21 PM [facility] NURSING NOTE: LOCAL TITLE: [facility] NURSING PROGRESS STANDARD TITLE: [facility] NURSING NOTE DATE OF NOTE: DEC 02, 2024@15:21 ENTRY DATE: DEC 02, 2024@15:21:49 AUTHOR: SHIMON SINCLAIR EXP COSIGNER: URGENCY: STATUS: COMPLETED [facility] NURSING PROGRESS Has ADDENDA [facility] FOLLOW-UP NOTE Date of visit: Dec Time spent with patient: 60 min Date of admission to [facility]: Patient Identified by: Name, Facial Recognition, Known Address Source of Information: Patient, Spouse What matter most to you in your life right now? Being able to stay home and spend time with my family means so much to me right now MEDICATIONS: Active Medications: Active Outpatient Medications (including Supplies): ALBUTEROL 90MCG (CFC-F) 200D ORAL INHL INHALE 2 PUFFS BY ACTIVE MOUTH EVERY 6 HOURS NEEDED FOR SHORTNESS OF BREATH BIKTARVY 50/200/25 TAB TAKE 1 TABLET BY MOUTH DAILY ACTIVE Indication: INFECTION BUMETANIDE 2MG TAB TAKE ONE TABLET BY MOUTH DAILY FOR ACTIVE FLUID (TAKE ADDITIONAL EVENING DOSE FOR 3LB WEIGHT GAIN IN 24 HOURS OR 5LB WEIGHT GAIN IN 1 WEEK) CLEANSER,WOUND SKINTEGRITY TOP SPRAY SPRAY TO AFFECTED ACTIVE AREA NEEDED Indication: FOR WOUND CARE DRESSING,HONEY TOP PASTE APPLY SMALL AMOUNT TO AFFECTED ACTIVE AREA DIRECTED Indication: FOR WOUND CARE FINASTERIDE 5MG TAB TAKE ONE TABLET BY MOUTH DAILY FOR ACTIVE PROSTATE GABAPENTIN 300MG CAP TAKE TWO CAPSULES BY MOUTH EVERY PENDING MORNING AND TAKE THREE CAPSULES EVERY EVENING AND TAKE THREE CAPSULES AT BEDTIME Indication: FOR NERVE PAIN GABAPENTIN 300MG CAP TAKE TWO CAPSULES BY MOUTH EVERY ACTIVE MORNING AND TAKE THREE CAPSULES EVERY EVENING AND TAKE THREE CAPSULES AT BEDTIME Indication: FOR NERVE PAIN GAUZE PAD 4IN X 4IN NONSTERILE USE GAUZE AFFECTED AREA ACTIVE DIRECTED Indication: WOUND CARE GLUCOSE SENSOR DEXCOM G7 USE SENSOR DIRECTED NEEDED ACTIVE (S) Indication: FOR BLOOD SUGAR MONITORING INSULIN CONC REG HUM 500 UNT/ML KWIKPEN INJECT 60 UNITS ACTIVE UNDER THE SKIN EVERY MORNING AND INJECT 50 UNITS EVERY EVENING -KEEP REFRIGERATED UNTIL PEN IN USE, ONCE IN USE DISCARD AFTER 28 DAYS Indication: FOR BLOOD SUGAR LIDOCAINE 5% 5IN X 6IN PATCH APPLY 2 PATCHES TO SKIN DAILY ACTIVE NEEDED FOR PAIN. (LEAVE ON 12 HOURS, THEN REMOVE FOR 12 HOURS) METHOCARBAMOL 750MG TAB TAKE ONE TABLET BY MOUTH EVERY 6 ACTIVE HOURS NEEDED FOR MUSCLE SPASM NEEDLE,PEN 31G,8MM USE NEEDLE NEEDLE,PEN 31G,5/16IN DEVICE ACTIVE DIRECTED FOR USE WITH U500 KWICKPEN OLODATEROL/TIOTROP 2.5MCG/ACTUAT 60D INH INHALE 2 PUFFS [...] NASAL CANNULA DAILY ACTIVE 23 Total Medications Qljv-taa-bdpbgkf products used by patient: None Medications/OTC/supplements started and/or discontinued since last [facility] visit. Per [facility] medication record- Medication list compared with list/medication bottles in the home: No medication discrepancies were identified. Has the patient missed any doses since the last visit?* No Updated medication list was provided for the patient/caregiver: during the visit Education Provided: Education including regimen, indication for use, potential side effects, and interactions provided for the following medications: Patient has a good understanding of his medications-their use and side effects-has a medical background- Medication education and updated medication sheet provided to: Patient, Spouse Patient/caregiver indicated understanding by: Verbalization Medications set up by: Caregiver HOME SAFETY ASSESSMENT: No Unsound structure No Unsafe functional barriers (stairs, etc.) No Unsafe placement of rugs, cords, furniture No Weapons in the home N/A Weapons secured in an area away from the area of care provision No Inadequate Heating/Electricity No Inadequate Cooking Facilities No Inadequate Sleeping Arrangements No Inadequate Ventilation No Inadequate [place] No Unsafe Storage of Supplies/Equipment No Presence of Infestation of Pests Yes Functioning Smoke Alarm Present No Fire Extinguisher Present Yes Fire Exit Plan No Use of Restraints Yes Home is adaptable for Home Care No Smoking materials present in the home N/A Pets secured in an area away from the area of care provision No Additional safety concerns: Temperature: Temperature: 97.9 F (36.6 C) Pulse: Pulse: 82 Pulse Oximetry: 96 Respirations: Respirations: 18 Blood Pressure: Blood Pressure: 128/62 Pain: Pain: 3 OXYGEN IN THE HOME: [...] in well-ventilated area Home Oxygen Education: -Encourage Perry to notify neighbors of Oxygen in use. -Reviewed causes of fire (smoking, open flames, oil based products) and precautions to prevent fire related injuries. -Placement and maintenance of concentrator, tubing, and accessories. -Written materials provided on home oxygen use. -Contact vendor with questions or concerns. Recommendations for identified risks: No identified risks noted// Patient/caregiver response to education: Verbalizes understanding PAIN EVALUATION: Patient answers YES to Do you have pain? question. Pain Scale: 3 Sometimes distracts me Type of pain: Dull Location of current pain: low back and left shoulder- Patient's acceptable pain level: 4 Chronic Onset/Duration: comes and goes frequently Therapeutic Actions Taken: Pharmacological Measures: Coninue venlafaxine SA 150 mg, tramadol 50 mg total of 4 tablets daily, and methocarbamol 750 bid for muscle spasm, and uses lidocaine patches. Follows pain pharmacology team. The pain affects your: Sleep, Physical activity, Concentration, Activity NEUROLOGICAL STATUS: No problems noted The patient is currently: Alert, Oriented to person, Oriented to place, Oriented to time, Oriented to situation, Follows verbal commands, Pupils PE[employer] Education Provided: Review of s/s that need immediate medical [...] under Do you feel suicidal today? No No CARDIOVASCULAR STATUS: unable to take DOAC d/t bilateral hematomas from inpatient injections. Takes metoprolol 100 mg bid for rate control. Digoxin was not renewed per cards note. Saw cardiology on 11/21- Advised that DOAC had been approved but would not be sent out until his hematoma was lot smaller and or gone-patient voiced understanding. Heart Sounds: Regular Pulses: Right Radial:Palpable Strong (+2) Left Radial: Palpable Strong (+2) Right Pedal: Palpable Strong (+2) Left Pedal: Palpable Strong (+2) Edema: Lower Extremities: Bilateral Trace Education Provided: Reinforced diet recommendations, S/s of hyper/hypotension, take medications as prescribed, S/s that require immediate medication attention (s/s of acute WI, palpitations, ect...), Notify [facility] of new or [...] of abdomen-says it hurts- Bowel Movements: Normal at this visit-stated that he had trouble with constipation last week-stated he did not realize that his bowels had not moved for 9 days-he had to give himself an enema-would like something for constipation. Last BM: yesterday Frequency: EVERY COUPLE OF [...] on the lower right side of his abdomen-it is smaller-and no pain at all-has dry scabbed areas on the toes of his left foot-they are dried up and no drainage noted. MOBILITY: Patient is ambulatory with assistive devices: Rollator, Wheelchair, Patient extremety strength is: All extremities strong [...] teach on HTN COPD CHF Diabetes BPH Visit scheduled for on or around 12/31. PCP, Patient stated he had an issue with constipation last week-he is asking for sennosides to help when this happens-stated this time he went 9 days and had to do an enema for relief. No open areas-at this visit-conts with his PT. /es/ SHIMON SINCLAIR RN Signed: 12/02/2024 15:46 Receipt Acknowledged By: 12/03/2024 07:33 /angie/ Coral Greenfield, MSN, CENTRAL OFFICE REPAIRER Nurse Practitioner, [facility] for LAURY KENYON 12/03/2024 ADDENDUM STATUS: COMPLETED [facility] CM-Ordered docusate/senna one tablet BID for constipation. /es/ Coral Greenfield, MSN, CENTRAL OFFICE REPAIRER Nurse Practitioner, [facility] Signed: 12/03/2024 07:34 Receipt Acknowledged By: * AWAITING SIGNATURE * MARI FREEMAN 12/03/2024 07:35 /es/ SHIMON FONTAINE RN-CDD [facility]
--- OUTSIDE RECORDS SUMMARY | 2024-12-11 06:00 | XMS_ITS | Encounter Summary ---
Author Name [facility] [place] [facility] [place] Address [address] [place] [address] Care Team Providers [employer] Name Role Phone LAURY KENYON Primary Care [...] ON [employer] Jun 03, 2017 [id number] ROXI WINKLER PATIENT [employer] [facility] (WNR) MEDICARE ADVANTAGE [facility] (WNR) Sep 03, 2019 [id number] ROXI WINKLER JR PATIENT [employer] [facility] (WNR) MEDICARE ADVANTAGE [facility] (WNR) Sep 03, 2019 [id number] ROXI WINKLER MCR (WNR) MEDICARE ADVANTAGE HUMAN A INSUR ANCE COM Apr 04, 2019 [id number] ROXI WINKLER MCR (WNR) MEDICARE ADVANTAGE [facility] (WNR) Apr 03, 2019 [id number] ROXI WINKLERA MCR (WNR) MEDICARE ADVANTAGE [facility] (WNR) Apr 03, 2019 [id number] ROXI WINKLER MCR (WNR) MEDICARE [facility] (WNR) Apr 03, 2019 [id number] ROXI WINKLER JR PHARMACY PRESCRIPT ION NONE Jun 03, 2017 NONE [id number] ROXI WINKLER MEDICARE PART D ([place]) MEDICARE (M) PART D Sep 03, 2023 PART D [id number] ROXI WINKLER JR PATIENT Selected Encounter This section includes the information on record at [place] for the Encounter. Date/Time Encounter Type Encounter Description Reason Provider Source Dec 11, 2024 10:00 AM OFFICE O/P [place] 60 MIN PODIATRY ICD-10-CM E11.40 Type 2 diabetes mellitus with diabetic neuropathy, abramp WILFREDO MONTELONGO Encounter Template Text not used by [place] Assessments - Encounter Diagnoses This section includes the primary and secondary diagnoses documented for the Encounter. Date/Time Primary/Secondary Diagnosis Diagnosis Name Provider Source Dec 11, 2024 10:21 AM PRIMARY Type 2 diabetes mellitus with diabetic neuropathy, abramp [facility] Dec 11, 2024 10:21 AM SECONDARY Contusion of left foot, initial encounter [facility] Dec 11, 2024 10:21 AM SECONDARY Type 2 diabetes mellitus with foot ulcer WILFREDO MONTELONGO [facility] Plan of Treatment: Future Appointments (+ [...] 20 appointments. The data comes from all [place] treatment facilities. Appointment Date/Time Appointment Type Appointme nt Facility Name Dec 23, 2024 01:30 PM AMBULATORY - SURGERY TAWNY SERRANO [facility] January 06, 2025 10:30 AM AMBULATORY - REHAB MEDICIN E CELESTINO [facility] January 06, 2025 02:00 PM AMBULATORY - SURGERY TAWNY SERRANO [facility] January 30, 2025 11:00 AM AMBULATORY - NONE [place] [facility] Feb 17, 2025 02:00 PM [facility] Apr 14, 2025 10:30 AM [id number] Lab Results: +/- 30 days [...] Type Comment Nov 21, 2024 12:38 PM [facility] N PANEL 1 PLASMA Specimen Type: [...] Nov 21, 2024 12:28 PM Reporting Lab: [address] [id number] Performing Lab: [address] [address] CREATININE 1.17 mg/dL 0.72-1.25 UREA NITROGEN 15 [...] and tobacco- related health factors from the [place] facility where the Encounter took place. Current Smoking Status This section includes the most current smoking, or tobacco-related health factor, from the [place] facility where the Encounter took place. Date/Time Current Smoking Status Comment Anita bartholomew Sep 06, 2023 10:00 AM [place]-TOBACCO NEVER USED [facility] Tobacco Use History This section includes a history of the smoking, or tobacco-related health factors, that were collected on or before the date of the Encounter. The data comes from the [place] facility where the Encounter took place. Date/Time Smoking Status/Tobacco Use Comment F acility Jun 20, 2022 10:30 AM [place]-TOBACCO NEVER USED [facility] Jul 27, 2020 03:22 PM VA-TOBACCO NEVER USED [facility] Jul 19, 2018 11:24 AM VA-TOBACCO NEVER USED [facility] Mar 18, 2018 10:14 AM V9 LIFETIME NON-USER OF TOBACCO [facility] Mar 29, 2017 07:47 AM V9 LIFETIME NON-USER OF TOBACCO [facility] Apr 27, 2016 08:56 AM V9 LIFETIME NON-USER OF TOBACCO [facility] May 27, 2015 09:53 AM V9 LIFETIME NON-USER OF TOBACCO [facility] Jun 29, 2014 02:25 PM V9 LIFETIME NON-USER OF TOBACCO [facility] Feb 10, 2013 02:08 PM V9 LIFETIME NON-USER OF TOBACCO [facility] Mar 19, 2012 09:36 AM V9 LIFETIME NON-USER OF TOBACCO [facility] Dec 13, 2010 10:09 AM V9 LIFETIME NON-USER OF TOBACCO [facility] Aug 13, 2006 09:26 AM V9 LIFETIME NON-USER OF TOBACCO [facility] Apr 24, 2006 02:37 PM HF V9 LIFETIME NON-SMOKER [facility] Advance Directives: All historical and current Section Date Range: From patient's date of to the date document was created. This section includes ALL of a patient's completed or amended [place] Advance and Rescinded Directives. The entries below indicate that a directive exists for the patient, but an actual copy is not included with this document. The data comes from all [place] facilities. Date Advance Directives Provider Source Sep 25, 2024 ADVANCE DIRECTIVE DISCUSSION [facility] Radiology Reports: +/- 30 days of the [...] the Encounter. The data comes from all [place] treatment facilities. Date/Time Radiology Report Provider Source Dec 23, 2024 12:59 PM SEGMENTAL PRESSURE S, LOWER EXT(ROCK) UNILAT: ROXI WINKLER [facility] [place] [id number] -1955 M Exm Date: DEC 23, 2024@12:59 Req Phys: MARCUS MONTELONGO Pat Loc: [place] POD/PROCEDURE/ATT1/LD (Req Img Loc: [place] [facility] Service: Unknown (Case [id number] COMPLETE) SEGMENTAL PRESSURES, LOWER EXT(AB(VAS Detailed) CPT:36374 Reason for Study: SEE CLINICAL HISTORY Clinical History: ROCK's/Segs Indications: Diminished pulses Report Status: Verified Date Reported: DEC 24, 2024 Date Verified: DEC 24, 2024 [employer] Engineer E-Sig: Report: SEGMENTAL PRESSURES AND ANKLE-BRACHIAL INDEX [...] Staff: TARYN TOMAS, ATTENDING PHYSICIAN Verified by wireless architect for TARYN TOMAS /TARYN TELLES [facility] Dec 11, 2024 10:15 AM FOOT-LEFT 3 OR MOR E VIEWS: ROXI WINKLER [facility] [place] [id number] -1955 M Exm Date: DEC 11, 2024@10:15 Req Phys: MARCUS MONTELONGO Loc: [place] POD/PROCEDURE/ATT1/LD (Req Img Loc: [facility] Service: [place] [address] (Case [id number] COMPLETE)FOOT-LEFT 3 OR MORE VIEWS (RAD Detailed) CPT:92652 Reason for Study: trauma left 1st/2nd toes Clinical History: r/o Fx Report Status: Verified Date Reported: DEC 12, 2024 Date Verified: DEC 12, 2024 [employer] Engineer E-Sig: Report: FOOT-LEFT 3 OR MORE VIEWS, [...] Staff: ZBIGNIEW JULIAN, Staff Physician Verified by wireless architect for ZBIGNIEW JULIAN /ZBIGNIEW HARVEY [facility] Encounter Notes: All associated encounter notes This section contains the clinical notes associated to the Encounter. Date/Time Encounter Note(s) Provider Source Dec 11, 2024 10:10 AM PODIATRY CONSULT: LOCAL TITLE: PODIATRY CONSULT RESPONSE STANDARD TITLE: PODIATRY CONSULT DATE OF NOTE: DEC 11, 2024@10:10 ENTRY DATE: DEC 11, 2024@10:10:33 AUTHOR: MARCUS MONTELONGO COSIGNER: URGENCY: STATUS: COMPLETED PODIATRY CONSULT RESPONSE Has ADDENDA SOAP Note SUBJECTIVE: The patient is a 69 year old MALE. Chief Complaint: Patient seen in consultation, he is a diabetic with neuropathy. states about a week ago he fell at home causing a big scrape to the left first and second toes. Tougaloo has already finished a course of Bactrim for this because it was at 1 point draining pus . Tougaloo has been applying daily Bactroban to the first and second toes. denies current signs of infection. Past Medical History: Active problems - Computerized Problem List is the source for the followin. Atrial fibrillation 2. Chronic pain syndrome 3. Chronic diastolic heart failure 4. Chronic obstructive pulmonary disease 5. Closed fracture of left humerus 6. Pseudophakia 7. Bilateral senile combined form cataracts of eyes 8. Bilateral senile combined form cataracts of eyes 9. Moderate nonproliferative diabetic retinopathy of right eye 10. 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 11. Fracture of thoracic spine T7 fracture; s/p fusion on 06-15-20 (T 5-9) 12. Chronic hypoxemic respiratory failure 13. Aneurysm of thoracic aorta 4.3cm 14. Pain in left knee 15. Human immunodeficiency virus 16. Mixed hyperlipidemia 17. Vitamin D deficiency 18. Microscopic hematuria 19. Respiratory failure 20. Coronary arteriosclerosis 21. Type 2 diabetes mellitus without complication 22. Gastroesophageal reflux disease 23. History of polyp of colon 24. Cervicalgia 25. Venous stasis 26. Benign essential hypertension 27. Low back pain 28. Benign neoplasm of colon 29. Other Malaise and Fatigue 30. Long-term current use of insulin (SNOMED CT 090687304) 31. Peripheral venous insufficiency 32. Obesity (SNOMED CT 368843042) 33. Obstructive Sleep APNEA (ADULT) (Pediatric) 34. Depressive Disorder NOS ALLERGIES: ENALAPRIL, FOSINOPRIL, LOPID, NIASPAN 500MG ER TABLET, ATENOLOL, HYDRALAZINE VASOTEC, SIMVASTATIN, AMLODIPINE BESYLATE 5MG TABLET, SEMAGLUTIDE Food allergies: None known VITALS: SVS - Vital Signs Selected Measurement DT BP TEMP RESP PULSE POx F(C) (L/MIN)(%) 12/02/2024 12:40 128/62 97.9(36.6) 18 82 Measurement DT WEIGHT LB(KG)[BMI] 12/02/2024 12:40 FOOT RISK LEVEL: MEDICATION RECONCILIATION: Reviewed current medications with patient/significant other, patient/significant other reports taking ALL VA, Non VA & OTC medications as listed on CPRS medication tab outpatient section. Yes *Medication changes reviewed, patient/significant other verbalized understanding and provided information on new medication. Yes *Explained to the patient the importance of keeping providers updated on medication changes and to carrying an updated list of medication at all times in case of an emergency situation. Yes OBJECTIVE: PACT FOOT EXAM A foot risk level was completed. The following risk level was identified for this patient: === +POD RISK SCORE+ --LEVEL 3 - (HIGH RISK) Sensory loss (per monofilament) and diminished circulation and may have + Foot deformity Or any of the following by itself: + History of prior ulcer, + Osteomyelitis + History of prior amputation + Severe PVD + Charcot's joint disease with foot deformity + End Stage Renal Disease -POD RISK SCORE- Patient currently being followed by Podiatry or other foot care provider. LEVEL 3 FOOT EDUCATION: 1. Advised patient that extra depth footwear with soft molded inserts and braces may be required. 2. Advised patient not to walk barefoot. Instructed the patient to pay close attention to the style and fit of shoes. 3. Explained the importance of daily foot checks. Explained that loss of sensation leads to callouses. Callouses break down, which result in ulcers that may lead to gangrene and amputation. 4. Stressed the importance of daily foot hygiene. Warm (not hot) bathing of the feet, complete drying and thorough inspection for changes in the condition of the skin constitute daily foot care. Demonstrated how to do a thorough foot check. 5. Emphasized the use of clean, non-restrictive socks/stockings and well fitting shoes. 6. Stressed the importance of immediate follow-up of any foot injuries or ulcers. Explained that he/she should be non-weight bearing whenever there are lesions on the foot, to prevent cellular damage. Level of Understanding: Good Patient/Caregiver having difficulty examining feet No Patient/caregiver has difficulty cleansing feet No Patient walks barefoot Never Instructed on the importance of not walking barefoot FOOT RISK LEVEL: 3 ROS: pertinent to chief complaint & relative to above medical history. PE: AAOX3,NAD Lower Extermity Dermatological Exam: SKIN: +1 edema bilateral legs and lower extremities. no signs of bacterial infections bilat Wound #1: Left foot dorsal first toe entire length of toe. Measurement today: 3 cm long by 2 cm wide by 0.1 cm deep, Lees grade 1. Degloving of the entire dorsal aspect of the first toe full-thickness. There is no exposed tendon nor deep structures though. Wound is 100% granular at its base but with excessive eschar/scabbing/fibrotic tissue circumferentially. There is no probing no tracking no undermining no drainage no odor and no cellulitis. Wound #2: Left foot dorsal secondtoe entire length of toe. Measurement today: 2 cm long by 1 cm wide by 0.1 cm deep, Lees grade 1. Degloving of the entire dorsal aspect of the second toe full-thickness. There is no exposed tendon nor deep structures though. Wound is 100% granular at its base but with excessive eschar/scabbing/fibrotic tissue circumferentially. There is no probing no tracking no undermining no drainage no odor and no cellulitis. VASCULAR EVAL: 09/06 DP/PT bilat, cap refil 3 sec x 10 NEUROLOGICAL EVALUATION: insensate bilat Lower Extermity Motor Function: / all lower extremity muscle groups bilat ORTHOPEDICS EVALUATION: hammertoes bilat, + bunions bilat feet IMPRESSION: DM II neuropathy DM II ulcers to left first and second toe Contusion left foot PLAN: Discussed with patient the diagnosis and treatment plan on this clinic visit. DM preventative footcare education provided. Extensive consultation / edeucation of pt on DM and ramifications of poor compliance / control of DM. Pt advised of risk of infection / ulceration / amputation / etc. X-rays to rule out fracture. No cultures since no signs of infection, will prescribe Augmentin regardless as prophylaxis/precautionary measure being that the patient has diabetes and weakened pulses. ABIs to evaluate for healing potential. Ordered dressing supplies. Continue using Darco postop shoe for offloading of the dorsal aspect of the toes bilaterally. Rx theraputic shoes in order to acomodate significant pedal deformity in an at risk patient. Go to ER and/or call us if any s/s local or systemic infecton arise or if ulcer(s) worsen. Left foot washed with CHG antimicrobial scrub to reduce bioburden as well as mechanically debride some. Applied Promogran topical collagen in order to assist with healing and covered with dry dressing. Tougaloo to change dressing in like manner every other day. This treament also consisted of an extensive consultation of the condition and the possible alternative to this mode of treatment. RTC: 3 weeks or so [facility] wound care clinic I spent 60 minutes, reviewing history, performing an exam and evaluation, entering clinical information EHR, interpreting result, counseling patient/family/caregiver, reviewing x-rays/mri/labs, ordering meds/test/procedures, referring and communicating with consulting health professional healthcare representative, and care coordination. Vet's questions were addressed and answered to their satisfaction. Total time for this encounter does not include time spent performing any separately reported procedure or service by me or the clinical staff. /katrina MONTELONGO Chief, Podiatry Section Signed: 12/11/2024 10:21 12/12/2024 ADDENDUM STATUS: COMPLETED Concur with findings. Reviewed films. No signs for osteo no fractures. Date Verified: DEC 12, 2024 [employer] Hat Engineer E-Sig: Report: FOOT-LEFT 3 OR MORE VIEWS, 12/11/2024 10:27 AM EDT INDICATION: trauma left 1st/2nd toes COMPARISON: January 13, 2015 Impression: No acute fracture or malalignment. 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 Calcaneal plantar and Achilles enthesophytes. Mild talonavicular joint degenerative change. Talar beak. No obvious tarsal coalition. Vascular calcifications. /angie/ MARCUS MONTELONGO Chief, Podiatry Section Signed: 12/12/2024 12:52 12/25/2024 ADDENDUM STATUS: COMPLETED Date Verified: DEC 24, 2024 [employer] Engineer E-Sig: Report: SEGMENTAL PRESSURES AND ANKLE-BRACHIAL INDEX [...] No arterial insufficiency is present at rest. /katrina MONTELONGO Chief, Podiatry Section Signed: 12/25/2024 10:57 [facility] Dec 11, 2024 09:49 AM SURGERY NURSING NOTE: LOCAL TITLE: SURGERY CLINIC INTAKE NOTE STANDARD TITLE: SURGERY NURSING NOTE DATE OF NOTE: DEC 11, 2024@09:49 ENTRY DATE: DEC 11, 2024@09:49:57 AUTHOR: RORY MINAYA COSIGNER: URGENCY: STATUS: COMPLETED The patient was given a list of [...] Data available for this patient Medication Reconciliation MRR1 - Med Reconciliation INCLUDED IN THIS LIST: Alphabetical list of active outpatient prescriptions dispensed from this [place] (local) and dispensed from another [place] or [facility] facility (remote) as well as inpatient orders (local pending and active), local clinic medications, locally documented non-VA medications, and local prescriptions that have or been discontinued in the past 90 days. Non-VA Meds Last Documented On: Sep 30, 2024 NOTE The display of VA prescriptions dispensed from another [place] or [facility] facility (remote) is limited to active outpatient prescription entries matched to National Drug File at the originating site and may not include some items such as investigational drugs, compounds, etc. NOT INCLUDED IN THIS LIST: Medications self-entered by the patient into personal health records (i.e. [facility]) are NOT included in this list. Non-VA medications documented outside this [place], remote inpatient orders (regardless of status) and remote clinic medications are NOT included in this list. The patient and provider must always discuss medications the patient is taking, regardless of where the medication was dispensed or obtained. OUTPT ALBUTEROL 90MCG (CFC-F) 200D ORAL INHL (Status = Active) INHALE 2 PUFFS BY MOUTH EVERY 6 HOURS NEEDED FOR SHORTNESS OF BREATH Rx# [id number] Last Released: 12/02/24 Qty/Days Supply: Rx Expiration Date: 06/18/25 Refills Remainin OUTPT ASCORBIC ACID 500MG TAB (Status = Discontinued) TAKE ONE TABLET BY MOUTH DAILY (TAKE WITH IRON SUPPLEMENT FOR BETTER ABSORPTION) Rx# [id number] Last Released: 07/15/24 Qty/Days Supply: 100 Rx Expiration Date: 12/28/24 Refills Remainin Non-VA ASPIRIN 81MG EC TAB TAKE ONE TABLET BY MOUTH DAILY OUTPT BIKTARVY 50/200/25 TAB (Status = Discontinued) TAKE 1 TABLET BY MOUTH DAILY INFECTION Rx# [id number] Last Released: 08/18/24 Qty/Days Supply: Rx Expiration Date: 08/12/25 Refills Remainin Indication: INFECTION OUTPT BIKTARVY 50/200/25 TAB (Status = Active) TAKE 1 TABLET BY MOUTH DAILY INFECTION Rx# [id number] Last Released: 10/14/24 Qty/Days Supply: 90 Rx Expiration Date: 10/15/25 Refills Remainin Indication: INFECTION OUTPT BUMETANIDE 2MG TAB (Status = Active) TAKE ONE TABLET BY MOUTH DAILY FOR FLUID (TAKE ADDITIONAL EVENING DOSE FOR 3LB WEIGHT GAIN IN 24 HOURS OR 5LB WEIGHT GAIN IN 1 WEEK) Rx# [id number] Last Released: 10/10/24 Qty/Days Supply: 120/90 Rx Expiration Date: 09/13/25 Refills Remainin OUTPT CHOLECALCIF 25MCG (D3-1,000UNIT) TAB (Status = Discontinued) TAKE ONE TABLET BY MOUTH DAILY FOR VITAMIN D SUPPLEMENT Rx# [id number] Last Released: 10/17/24 Qty/Days Supply: 100/90 Rx Expiration Date: 09/13/25 Refills Remainin OUTPT CLEANSER,WOUND SKINTEGRITY TOP SPRAY (Status = Active) SPRAY TO AFFECTED AREA NEEDED FOR WOUND CARE Rx# [id number] Last Released: 12/03/24 Qty/Days Supply: / Rx Expiration Date: 11/29/25 Refills Remainin Indication: FOR WOUND CARE OUTPT DOCUSATE NA 50MG/SENNOSIDES 8.6MG TAB (Status = Active) TAKE 1 TABLET BY MOUTH TWICE A DAY FOR CONSTIPATION Rx# [id number] Last Released: 12/08/24 Qty/Days Supply: 200/90 Rx Expiration Date: 12/04/25 Refills Remainin Indication: FOR CONSTIPATION OUTPT FERROUS SULFATE 324MG EC TAB (Status = Discontinued) TAKE 1 TABLET BY MOUTH DAILY FOR IRON SUPPLEMENT AND ANEMIA - TAKE WITH FOOD Rx# [id number] Last Released: 09/14/24 Qty/Days Supply: 100/90 Rx Expiration Date: 09/09/25 Refills Remainin OUTPT FINASTERIDE 5MG TAB (Status = Active) TAKE ONE TABLET BY MOUTH DAILY FOR PROSTATE Rx# [id number] Last Released: 12/01/24 Qty/Days Supply: 90/90 Rx Expiration Date: 09/09/25 Refills Remainin OUTPT GABAPENTIN 300MG CAP (Status = Discontinued) TAKE TWO CAPSULES BY MOUTH EVERY MORNING AND TAKE THREE CAPSULES EVERY EVENING AND TAKE THREE CAPSULES AT BEDTIME FOR NERVE PAIN Rx# [id number] Last Released: 10/14/24 Qty/Days Supply: 240/30 Rx Expiration Date: 09/02/25 Refills Remainin Indication: FOR NERVE PAIN OUTPT GABAPENTIN 300MG CAP (Status = Active) TAKE TWO CAPSULES BY MOUTH EVERY MORNING AND TAKE THREE CAPSULES EVERY EVENING AND TAKE THREE CAPSULES AT BEDTIME FOR NERVE PAIN Rx# [id number] Last Released: 12/08/24 Qty/Days Supply: 240/30 Rx Expiration Date: 12/03/25 Refills Remainin Indication: FOR NERVE PAIN OUTPT GLUCOSE 4GM CHEW TAB (Status = Discontinued) CHEW 4 TABLETS (16 GRAMS OF CARBS) BY MOUTH DIRECTED NEEDED FOR LOW BLOOD SUGAR Rx# [id number] Last Released: 02/12/24 Qty/Days Supply: 60/90 Rx Expiration Date: 02/08/25 Refills Remainin Indication: FOR LOW BLOOD SUGAR OUTPT INSULIN CONC REG HUM 500 UNT/ML KWIKPEN (Status = Discontinued) INJECT 65 UNITS UNDER THE SKIN TWICE A DAY BEFORE MEALS FOR BLOOD SUGAR -KEEP REFRIGERATED UNTIL PEN IN USE, ONCE IN USE DISCARD AFTER 28 DAYS Rx# [id number] Last Released: 02/12/24 Qty/Days Supply: Rx Expiration Date: 02/08/25 Refills Remainin Indication: FOR BLOOD SUGAR OUTPT INSULIN CONC REG HUM 500 UNT/ML KWIKPEN (Status = Active) INJECT 60 UNITS UNDER THE SKIN EVERY MORNING AND INJECT 50 UNITS EVERY EVENING FOR BLOOD SUGAR -KEEP REFRIGERATED UNTIL PEN IN USE, ONCE IN USE DISCARD AFTER 28 DAYS Rx# [id number] Last Released: 11/26/24 Qty/Days Supply: Rx Expiration Date: 11/22/25 Refills Remainin Indication: FOR BLOOD SUGAR OUTPT LIDOCAINE 5% 5IN X 6IN PATCH (Status = Active) APPLY 2 PATCHES TO SKIN DAILY NEEDED FOR PAIN. (LEAVE ON 12 HOURS, THEN REMOVE FOR 12 HOURS) Rx# [id number] Last Released: 11/19/24 Qty/Days Supply: Rx Expiration Date: 03/05/25 Refills Remainin OUTPT METHOCARBAMOL 750MG TAB (Status = Active) TAKE ONE TABLET BY MOUTH EVERY 6 HOURS NEEDED FOR MUSCLE SPASM Rx# [id number] Last Released: 12/04/24 Qty/Days Supply: 12030 Rx Expiration Date: 06/18/25 Refills Remainin OUTPT METOPROLOL TARTRATE 100MG TAB (Status = ) TAKE ONE TABLET BY MOUTH TWICE A DAY FOR BLOOD PRESSURE/HEART Rx# [id number] Last Released: 08/14/24 Qty/Days Supply: Rx Expiration Date: 09/26/24 Refills Remainin Indication: FOR BLOOD PRESSURE/HEART Non-VA NALOXONE NASAL RESCUE 4MG SOLN,SPRAY,NASAL SPRAY IN ONE NOSTRIL ONLY DIRECTED Medication prescribed by Non-VA provider. OUTPT OLODATEROL/TIOTROP 2.5MCG/ACTUAT 60D INH (Status = Active) INHALE 2 PUFFS BY MOUTH EVERY MORNING FOR BREATHING Rx# [id number] Last Released: 09/09/24 Qty/Days Supply: Rx Expiration Date: 06/18/25 Refills Remainin Non-VA OXYGEN GAS INHALE 3 LITERS BY NASAL CANNULA DAILY OUTPT PANTOPRAZOLE NA 40MG EC TAB (Status = Active) TAKE ONE TABLET BY MOUTH DAILY FOR STOMACH TAKE ON AN EMPTY STOMACH. Rx# [id number] Last Released: 09/10/24 Qty/Days Supply: Rx Expiration Date: 09/02/25 Refills Remainin Indication: FOR STOMACH OUTPT SITAGLIPTIN (EQV-ZITUVIO) 100MG TAB (Status = Discontinued) TAKE ONE TABLET BY MOUTH DAILY FOR BLOOD SUGAR -REPLACES ALOGLIPTIN. STORE IN ORIGINAL CONTAINER. OPENED BOTTLES MUST BE USED WITHIN 3 MONTHS Rx# [id number] Last Released: 09/14/24 Qty/Days Supply: Rx Expiration Date: 12/07/24 Refills Remainin Indication: FOR BLOOD SUGAR OUTPT SITAGLIPTIN (EQV-ZITUVIO) 100MG TAB (Status = Active) TAKE ONE TABLET BY MOUTH DAILY FOR BLOOD SUGAR -REPLACES ALOGLIPTIN. STORE IN ORIGINAL CONTAINER. OPENED BOTTLES MUST BE USED WITHIN 3 MONTHS Rx# [id number] Last Released: 11/25/24 Qty/Days Supply: Rx Expiration Date: 11/22/25 Refills Remainin Indication: FOR BLOOD SUGAR OUTPT SULFAMETHOXAZOLE 800/TRIMETH 160MG TAB (Status = Discontinued) TAKE 2 TABLETS BY MOUTH TWICE A DAY FOR SKIN OR SOFT TISSUE INFECTION FOR DIABETIC FOOT INFECTION Rx# [id number] Last Released: 11/21/24 Qty/Days Supply: 30/03 Rx Expiration Date: 12/21/24 Refills Remainin Indication: FOR SKIN OR SOFT TISSUE INFECTION OUTPT TAMSULOSIN HCL 0.4MG CAP (Status = Active) TAKE ONE CAPSULE BY MOUTH EVERY EVENING FOR PROSTATE Rx# [id number] Last Released: 09/14/24 Qty/Days Supply: Rx Expiration Date: 09/09/25 Refills Remainin OUTPT TRAMADOL HCL 50MG TAB (Status = Active) TAKE ONE TABLET BY MOUTH EVERY MORNING AND TAKE ONE TABLET EVERY EVENING AND TAKE TWO TABLETS AT BEDTIME NEEDED FOR PAIN (USE SPARINGLY. SUPPLY MUST LAST 30 DAYS. CAUSES IMPAIRMENT, RECOMMEND NOT TO DRIVE ON THIS MEDICATION.) Rx# [id number] Last Released: 10/08/24 Qty/Days Supply: 120/30 Rx Expiration Date: 03/04/25 Refills Remainin Indication: FOR PAIN OUTPT VENLAFAXINE HCL 150MG 24HR SA CAP (Status = Active) TAKE ONE CAPSULE BY MOUTH DAILY FOR CHRONIC PAIN Rx# [id number] Last Released: 09/24/24 Qty/Days Supply: Rx Expiration Date: 09/13/25 Refills Remainin Indication: FOR CHRONIC PAIN SUPPLIES OUTPT DRESSING,HONEY TOP PASTE (Status = Active) APPLY SMALL AMOUNT TO AFFECTED AREA DIRECTED FOR WOUND CARE Rx# [id number] Last Released: 12/03/24 Qty/Days Supply: Rx Expiration Date: 11/29/25 Refills Remainin Indication: FOR WOUND CARE OUTPT GAUZE PAD 4IN X 4IN NONSTERILE (Status = Active) USE GAUZE AFFECTED AREA DIRECTED WOUND CARE Rx# [id number] Last Released: 12/03/24 Qty/Days Supply: 200/90 Rx Expiration Date: 02/26/25 Refills Remainin Indication: WOUND CARE OUTPT GLUCOSE SENSOR DEXCOM G7 (Status = Discontinued) USE SENSOR DIRECTED NEEDED FOR BLOOD SUGAR MONITORING Rx# [id number] Last Released: 10/23/24 Qty/Days Supply: Rx Expiration Date: 02/13/25 Refills Remainin Indication: FOR BLOOD SUGAR MONITORING OUTPT GLUCOSE SENSOR DEXCOM G7 (Status = Active/Suspended) USE SENSOR DIRECTED NEEDED FOR BLOOD SUGAR MONITORING Rx# [id number] Last Released: Supply: Rx Expiration Date: 11/22/25 Refills Remainin Indication: FOR BLOOD SUGAR MONITORING OUTPT NEEDLE,PEN 31G,8MM (Status = Discontinued) USE NEEDLE NEEDLE,PEN 31G,5/16IN DEVICE DIRECTED FOR USE WITH U500 KWICKPEN Rx# [id number] Last Released: 02/12/24 Qty/Days Supply: 200/90 Rx Expiration Date: 02/08/25 Refills Remainin OUTPT NEEDLE,PEN 31G,8MM (Status = Active) USE NEEDLE NEEDLE,PEN 31G,5/16IN DEVICE DIRECTED FOR USE WITH U500 ALEXANDRAICKPEN Rx# [id number] Last Released: 11/25/24 Qty/Days Supply: 200/90 Rx Expiration Date: 11/22/25 Refills Remainin /angie/ RORY MINAYA LPN STAFF [employer] Signed: 12/11/2024 09:52 RORY MINAYA [facility]
--- OUTSIDE RECORDS SUMMARY | 2024-12-12 09:38 | XMS_ITS | Encounter Summary ---
Author Name [facility] [place] Organization [place] Address [address] [place] [address] Care Team Providers Care Ferry Operator Name Role Phone LAURY KENYON Primary [...] ON [employer] Jun 03, 2017 [id number] ROXI WINKLER PATIENT [employer]NA [facility] (WNR) MEDICARE ADVANTAGE [facility] (WNR) Sep 03, 2019 [id number] ROXI WINKLER JR PATIENT [employer] [facility] (WNR) MEDICARE ADVANTAGE [facility] (WNR) Sep 03, 2019 [id number] ROXI WINKLERA MCR (WNR) MEDICARE ADVANTAGE HUMAN A INSUR ANCE COM Apr 04, 2019 [id number] ROXI WINKLERA MCR (WNR) MEDICARE ADVANTAGE [facility] (WNR) Apr 03, 2019 [id number] ROXI WINKLERA MCR (WNR) MEDICARE ADVANTAGE MCR (WNR) Apr 03, 2019 [id number] ROXI WINKLERA MCR (WNR) MEDICARE ADVANTAGE MCR (WNR) Apr 03, 2019 [id number] ROXI WINKLER JR PHARMACY PRESCRIPT ION NONE Jun 03, 2017 NONE [id number] [phone] ROXI WINKLER MEDICARE PART D ([place]) MEDICARE (M) PART D Sep 03, 2023 PART D [id number] ROXI WINKLER JR PATIENT Selected Encounter This section includes the information on record at [place] for the Encounter. Date/Time Encounter Type Encounter Description Reason Pro vider Source Dec 12, 2024 01:38 PM Outpatient Encounter ADMIN PAT ACTIVTIES (MASNONCT) [...] 2024 01:30 PM AMBULATORY - [facility] [place] [facility] January 06, 2025 10:30 AM AMBULATORY - REHAB MEDICIN E [facility] January 06, 2025 02:00 PM AMBULATORY - SURGERY [place] [facility] January 30, 2025 11:00 AM AMBULATORY - NONE STEPHEN Barnes [facility] Feb 17, 2025 02:00 PM AMBULATORY [facility] [place] [facility] Apr 14, 2025 10:30 AM [facility] Lab Results: +/- 30 [...] Comment Nov 21, 2024 12:38 PM [facility] PANEL 1 PLASMA Specimen Type: PLASMA [...] Nov 21, 2024 12:28 PM Reporting Lab: [facility] [address] [place] [phone] Performing Lab: [address] [address] CREATININE 1.17 mg/dL 0.72-1.25 UREA NITROGEN 15 [...] 01:12 AM NON-TOBACCO USE INPATIENT [facility] Tobacco Use History This section includes a history of the smoking, or tobacco-related health factors, that were collected on or before the date of the Encounter. The data comes from the [place] facility where the Encounter took place. Date/Time Smoking Status/Tobacco Use Comment F nicci Nov 24, 2015 04:48 PM NON-TOBACCO USE INPATIENT [facility] Oct 01, 2014 07:15 PM NON-TOBACCO USE INPATIENT [facility] Apr 10, 2005 01:20 PM HF V9 LIFETIME NON-SMOKER [facility] Nov 24, 2003 03:11 PM HF V9 LIFETIME NON-SMOKER [facility] Oct 07, 2002 02:26 PM HF V9 LIFETIME NON-SMOKER [facility] Advance Directives: All historical and current Section [...] Sep 25, 2024 ADVANCE DIRECTIVE DISCUSSION [facility] Radiology Reports: +/- 30 [...] the Encounter. The data comes from all [place] treatment facilities. Date/Time Radiology Report Provider Source Dec 23, 2024 12:59 PM SEGMENTAL PRESSURE S, LOWER EXT(ROCK) UNILAT: ROXI [facility]INKLER [facility] [id number] -1955 M Exm Date: DEC 23, 2024@12:59 Req Phys: JAYDAMARCUS Pat Loc: [place] P[place]EDURE/ATT1/LD (Req Img Loc: [place] [facility] [facility] Service: Unknown (Case [id number] COMPLETE) SEGMENTAL PRESSURES, LOWER EXT(AB(VAS Detailed) CPT:24540 Reason for Study: SEE CLINICAL HISTORY Clinical History: ROCK's/Segs Indications: Diminished pulses Report Status: Verified Date Reported: DEC 24, 2024 Date Verified: DEC 24, 2024 Line Erector E-Sig: Report: SEGMENTAL PRESSURES AND ANKLE-BRACHIAL INDEX [...] Staff: TARYN TOMAS, ATTENDING PHYSICIAN Verified by mushroom press operator for TARYN TOMAS /TARYN TELLES [facility] Dec 11, 2024 10:15 AM FOOT-LEFT 3 OR MOR E VIEWS: ROXI [facility] [id number] -1955 M Exm Date: DEC 11, 2024@10:15 Req Phys: MARCUS MONTELONGO Pat Loc: [place] POD/PROCEDURE/ATT1/LD (Req Img Loc: [facility] Service: [place] [address] (Case [id number] COMPLETE)FOOT-LEFT 3 OR MORE VIEWS (RAD Detailed) CPT:89192 Reason for Study: trauma left 1st/2nd toes Clinical History: r/o Fx Report Status: Verified Date Reported: DEC 12, 2024 Date Verified: DEC 12, 2024 Line Erector E-Sig: Report: FOOT-LEFT 3 OR MORE VIEWS, [...] Staff: ZBIGNIEW JULIAN, Staff Physician Verified by mushroom press operator for ZBIGNIEW JULIAN /ZBIGNIEW HARVEY [facility] Encounter Notes: All associated encounter notes This section contains the clinical notes associated to the Encounter. Date/Time Encounter Note(s) Provider Source Dec 12, 2024 01:38 PM ADMINISTRATIVE NOT E: LOCAL TITLE: CLERICAL/ADMIN NOTE STANDARD TITLE: ADMINISTRATIVE NOTE DATE OF NOTE: DEC 12, 2024@13:38 ENTRY DATE: DEC 12, 2024@13:38:17 AUTHOR: DES STEVENS COSIGNER: URGENCY: STATUS: COMPLETED CLERICAL/ADMIN NOTE Has ADDENDA Received fax from: [employer] Pages including cover: 9 FAXED TO: ATTN: SAUD STEVENS MSA Signed: 12/12/2024 13:39 12/12/2024 ADDENDUM STATUS: COMPLETED Received fax from: [employer] Pages including cover: 10 FAXED TO: ATTN: SAUD STEVENS MSA Signed: 12/12/2024 13:59 DES STEVENS[facility]
--- OUTSIDE RECORDS SUMMARY | 2024-12-16 06:35 | XMS_ITS | Encounter Summary ---
Author Name [facility] [place] [facility] [place] Organization [facility] [place] Address [address] [place] [address] Care Team Providers Care Ferryboat Operator Name Role Phone LAURY KENYON Primary Care Provider Unavailab SHIMON Alex Unavailable Unavailable RICK FREMEAN Unavailable Unavailable REEMA BENDER Unavailable Unavailable NATASHA [...] ON [employer] Jun 03, 2017 [id number] ROXI WINKLER PATIENT [employer]NA [facility] (WNR) MEDICARE ADVANTAGE [facility] (WNR) Sep 03, 2019 [id number] ROXI WINKLER JR PATIENT [employer] [facility] (WNR) MEDICARE ADVANTAGE [facility] (WNR) Sep 03, 2019 [id number] [phone] ROXI WINKLERA MCR (WNR) MEDICARE ADVANTAGE HUMAN A INSUR ANCE COM Apr 04, 2019 [id number] ROXI WINKLERA MCR (WNR) MEDICARE ADVANTAGE [facility] (WNR) Apr 03, 2019 [id number] ROXI WINKLER [employer] MCR (WNR) MEDICARE ADVANTAGE MCR (WNR) Apr 03, 2019 [id number] ROXI WINKLERA MCR (WNR) MEDICARE ADVANTAGE MCR (WNR) Apr 03, 2019 [id number] ROXI WINKLER JR PHARMACY PRESCRIPT ION NONE Jun 03, 2017 NONE [id number] [phone] ROXI WINKLER MEDICARE PART D ([place]NR) MEDICARE (M) PART D Sep 03, 2023 PART D [id number] [phone] ROXI WINKLER JR PATIENT Selected Encounter This section includes the information on record at [place] for the Encounter. Date/Time Encounter Type Encounter Description Reason Pro vider Source Dec 16, 2024 10:35 AM Outpatient Encounter ADMIN PAT ACTIVTIES (MASNONCT) IHE Encounter Template Text not used by [place] Plan of Treatment: Future Appointments (+ 6 months) and Future Tests (+/- 45 days) The Plan of Treatment section includes future care activities for the patient from all [place] treatmentfacilities. This section includes future appointments and future orders which are active, pending or scheduled. Future Appointments This section includes appointments that were scheduled to occur 6 months from the date of the Encounter, up to a maximum of 20 appointments. The data comes from all [place] treatment facilities. Appointment Date/Time Appointment Type Appointme nt Facility Name Dec 23, 2024 01:30 PM AMBULATORY - SURGERY [place] [facility] January 06, 2025 10:30 AM AMBULATORY - REHAB MEDICIN E [facility] January 06, 2025 02:00 PM AMBULATORY - SURGERY [place] [facility] January 30, 2025 11:00 AM AMBULATORY - NONE STEPHEN Barnes [facility] Feb 17, 2025 02:00 PM AMBULATORY - SURGERY [place] [facility] Apr 14, 2025 10:30 AM [facility] Lab Results: +/- 30 days of the encounter This section includes the Chemistry and Hematology Lab Results on record with [place] for the patient. Radiology Reports and Pathology Reports are provided separately, in subsequent sections. Lab Results This section contains the Chemistry/Hematology Results that were resulted 30 days before or 30 daysafter the date of the Encounter. Date/Time Source Result Type Result - Unit Interpretation Reference Range Specimen Type Comment January 15, 2025 10:00 AM [facility] WN DRUG SCREEN EXPANDED IN-HOUSE URINE Specimen Type: URINE Comment: Screening method results are unconfirmed and are for medical use only. Unconfirmed screening results must not be used for non-medical purposes. Opiates test most sensitive for morphine, codeine and heroin and less sensitive for hydrocodone and hydromorphone where higher concentrations are needed for cut-off detection. Drugs of abuse screening is a preliminary analytical test result. A more specific alternate chemical method (GC/MS) must be used to obtain a confirmed analytical result. This assay provides a preliminary unconfirmed analytical test result that may be suitable for clinical management of patients in certain situations. Drug-test results should be interpreted in the context of clinical information. Patient metabolic characteristics can affect test outcome. Ordering Provider: LAURY KENYON Report Released Date/Time: January 02, 2025 08:09 AM Reporting Lab: [address] [address] Performing Lab: [address] [address] TETRAHYDROCANNABINOL SCREEN NEG Cuto ff < 50 AMPHETAMINE SCR NEG Cutoff < 1000 BARBITURATES SCR NEG Cutoff < 200 BENZODIAZEPINES SCR NEG Cutoff < 200 COCAINE METABOLITE SCR NEG Cutoff < 300 OPIATES SCR NEG Cutoff < 300 METHADONE SCR NEG Cutoff < 300 OXYCODONE SCR NEG Cutoff < 200 BUPRENORPHINE SCR IN-HOUSE NEG Cutof f < 5 FENTANYL SCREEN IN-HOUSE NEG Cutoff < 1 January 14, 2025 12:00 PM [facility] GLYCOHEMOGLOBIN BLOOD Specimen Type: BLOOD Comment: Prediabetes: 5.7%-6.4% Diabetes: >= 6.5% [place] guidelines for A1c interpretation: Glycemic control targets are based on Shared Decision Making between clinicians and patients. Criteria used to establish an A1c target recommendation can be found at https://www.dc.gov/qualityandpatientsafety/ and include the use of result accuracy [...] 8.73 and 9.27. Ref: https://ngsp.org/CAPdata.asp. The in-house [employer] D-100 analyzer has a historical CV <= 2%. Contact the laboratory for further performance characteristics of this assay. Ordering Provider: LAURY KENYON Report Released Date/Time: January 06, 2025 03:36 PM Reporting Lab: [address] [address] Performing Lab: [address] [address] GLYCOHEMOGLOBIN 7.2 H 4.4-5.6 January 14, 2025 12:00 PM [facility] CBC/PLT BLOOD Specimen Type: BLOOD No comment entered. Ordering Provider: LAURY KENYON Report Released Date/Time: January 06, 2025 12:45 PM Reporting Lab: [address] [address] Performing Lab: [address] [address] WBC 11.6 10*3/uL H 5.0-10.0 RBC 4.36 10*6/uL L 4.6-6.2 HGB 12.7 g/dL L 14.0-18.0 HCT 39.9 L 42.0-52.0 MCV 91.5 fL 80.0-94.0 MCH 29.1 pg 27.0-31.0 MCHC 31.8 g/dL L 32.0-36.0 PLT 212 10*3/uL 150-450 MPV 9.9 fL 9.0-13.1 RDW 14.6 11.0-16.0 NRBC 0.0 0.0-0.0 January 14, 2025 12:00 PM [facility] PANEL 1 PLASMA Specimen Type: PLASM A Comment: CRITICAL CALLED TO & READ BACK BY: LAURY KENYON 01/14/25@0754 [facility] Estimated Glomerular Filtration Rate (eGFR) calculated using the 2020 Chronic Kidney Disease-Epidemiology (CKD-EPI) Collaboration creatinine equation; units of measure [...] or structural abnormalities does not represent CKD. ======== eGFR CKD Interpretation (mL/min/1.73 m2) stage >=90 G1 Normal 60-89 G2 Mild decrease 45-59 G3A Mild to moderate decrease 30-44 G3B Moderate to severe decrease 15-29 G4 Severe decrease <15 G5 Kidney failure Ordering Provider: LAURY KENYON Report Released Date/Time: January 06, 2025 03:36 PM Reporting Lab: [address] [address] Performing Lab: [address] [address] CREATININE 0.97 mg/dL 0.72-1.25 UREA NITROGEN 15 mg/dL 9-25 GLUCOSE 258 mg/dL H 74-100 SODIUM 138 mmol/L 136-145 POTASSIUM 3.6 mmol/L 3.5-5.1 CHLORIDE 87 mmol/L L 98-107 CO2 46 mmol/L HH 22-29 CALCIUM 8.8 mg/dL 8.4-10.2 ANION GAP 5 meq/L 3-19 eGFR (CKD-EPI) 84 Nov 21, 2024 12:38 PM [facility] PANEL 1 PLASMA Specimen Type: PLASM A Comment: Estimated Glomerular Filtration Rate (eGFR) calculated using the 2020 Chronic Kidney Disease-Epidemiology (CKD-EPI) Collaboration creatinine equation; units of measure [...] or structural abnormalities does not represent CKD. eGFR CKD Interpretation (mL/min/1.73 m2) stage >=90 G1 Normal 60-89 G2 Mild decrease 45-59 G3A Mild to moderate decrease 30-44 G3B Moderate to severe decrease 15-29 G4 Severe decrease <15 G5 Kidney failure Ordering Provider: SEFERINO DENTON Report Released Date/Time: Nov 21, 2024 12:28 PM Reporting Lab: [facility] [address] [facility] [address] Performing Lab: [facility] [address] [facility] [address] CREATININE 1.17 mg/dL 0.72-1.25 UREA NITROGEN 15 [...] and tobacco- related health factors from the [place] facility where the Encounter took place. Current Smoking Status This section includes the most current smoking, or tobacco-related health factor, from the [place] facility where the Encounter took place. Date/Time Current Smoking Status Comment Anita bartholomew May 05, 2016 01:12 AM NON-TOBACCO USE INPATIENT [facility] Tobacco Use History This section includes a history of the smoking, or tobacco-related health factors, that were collected on or before the date of the Encounter. The data comes from the [place] facility where the Encounter took place. Date/Time [...] ALL of a patient's completed or amended [place] Advance and Rescinded Directives. The entries below indicate that a directive exists for the patient, but an actual copy is not included with this document. The data comes from all [place] facilities. Date Advance Directives Provider Source Sep 25, 2024 ADVANCE DIRECTIVE DISCUSSION ANTHONY IRVING-[facility] Radiology Reports: +/- 30 days of the [...] the Encounter. The data comes from all [place] treatment facilities. Date/Time Radiology Report Provider Source Dec 23, 2024 12:59 PM SEGMENTAL PRESSURE S, LOWER EXT(ROCK) UNILAT: ROXI WINKLER [facility] [id number] -1955 M Exm Date: DEC 23, 2024@12:59 Req Phys: MARCUS MONTELONGO Pat Loc: [place] P[place]/PROCEDURE/ATT1/LD (Req Img Loc: [place] [facility] Service: Unknown (Case [id number] COMPLETE) SEGMENTAL PRESSURES, LOWER EXT(AB(VAS Detailed) CPT:15396 Reason for Study: SEE CLINICAL HISTORY Clinical History: ROCK's/Segs Indications: Diminished pulses Report Status: Verified Date Reported: DEC 24, 2024 Date Verified: DEC 24, 2024 Picture Frame Maker E-Sig: Report: SEGMENTAL PRESSURES AND ANKLE-BRACHIAL INDEX [...] Staff: TARYN TOMAS, ATTENDING PHYSICIAN Verified by project controls scheduler for TARYN TOMAS /TARYN TELLES [facility] Dec 11, 2024 10:15 AM FOOT-LEFT 3 OR MOR E VIEWS: ROXI WINKLER [facility] [id number] -1955 M Exm Date: DEC 11, 2024@10:15 Req Phys: MARCUS MONTELONGO Pat Loc: [place] P[place]/PROCEDURE/ATT1/LD (Req Img Loc: [facility] Service: [place] [address] (Case [id number] COMPLETE)FOOT-LEFT 3 OR MORE VIEWS (RAD Detailed) CPT:32538 Reason for Study: trauma left 1st/2nd toes Clinical History: r/o Fx Report Status: Verified Date Reported: DEC 12, 2024 Date Verified: DEC 12, 2024 Picture Frame Maker E-Sig: Report: FOOT-LEFT 3 OR MORE VIEWS, [...] Staff: ZBIGNIEW JULIAN, Staff Physician Verified by project controls scheduler for ZBIGNIEW JULIAN /ZBIGNIEW HARVEY [facility] Encounter Notes: All associated encounter notes This section contains the clinical notes associated to the Encounter. Date/Time Encounter Note(s) Provider Source Dec 16, 2024 10:35 AM ADMINISTRATIVE NOT E: LOCAL TITLE: CLERICAL/ADMIN NOTE STANDARD TITLE: ADMINISTRATIVE NOTE DATE OF NOTE: DEC 16, 2024@10:35 ENTRY DATE: DEC 16, 2024@10:35:21 AUTHOR: DES STEVENS COSIGNER: URGENCY: STATUS: COMPLETED Received fax from: [employer] Pages including cover: 9 FAXED TO: ATTN: SAUD JUNG /angie/ DES STEVENS MSA Signed: 12/16/2024 10:35 DES STEVENS-[facility]
--- OUTSIDE RECORDS SUMMARY | 2024-12-31 07:20 | XMS_ITS | Encounter Summary ---
Author Name [facility] Organization [facility] Address [address] [place] [address] Care Team Providers Care Yeast Supervisor Name Role Phone LAURY KENYON Primary [...] ON [employer] Jun 03, 2017 [id number] ROXI WINKLER PATIENT [employer] [facility] (WNR) MEDICARE ADVANTAGE [facility] (WN) Sep 03, 2019 [id number] ROXI WINKLER JR PATIENT [employer] [facility] (WNR) MEDICARE ADVANTAGE [facility] (WNR) Sep 03, 2019 [id number] ROXI WINKLERA MCR (WNR) MEDICARE ADVANTAGE HUMAN A INSUR ANCE COM Apr 04, 2019 [id number] ROXI WINKLERA MCR (WNR) MEDICARE ADVANTAGE [facility] (WNR) Apr 03, 2019 [id number] ROXI WINKLERA MCR (WNR) MEDICARE ADVANTAGE MCR (WNR) Apr 03, 2019 [id number] ROXI WINKLERA MCR (WNR) MEDICARE ADVANTAGE [facility] (WNR) Apr 03, 2019 [id number] ROXI WINKLER JR PHARMACY PRESCRIPT ION NONE Jun 03, 2017 NONE [id number] ROXI WINKLER MEDICARE PART D (WNR) MEDICARE (M) PART D Sep 03, 2023 PART D [id number] ROXI WINKLER JR PATIENT Selected Encounter This section includes the information on record at ID for the Encounter. Date/Time Encounter Type Encounter Description Reason Provider Source Dec 31, 2024 11:20 AM HHS/HOSPICE OF RN EA 15 MIN PC Nursing (RN / LP) ICD-10-CM J44.9 Chronic obstructive pulmonary disease, unspecified SHIMON SINCLAIR Adela Encounter Template Text not used by ID Assessments - Encounter Diagnoses This section includes the primary and secondary diagnoses documented for the Encounter. Date/Time Primary/Secondary Diagnosis Diagnosis Name Provider Source January 02, 2025 08:02 AM PRIMARY Chronic obstructive pulmonary disease, unspecified SHIMON SINCLAIR [facility] January 02, 2025 08:02 AM SECONDARY Chronic pain syndrome SHIMON SINCLAIR [facility] January 02, 2025 08:02 AM SECONDARY Essential (primary) hypertension SHIMON SINCLAIR [facility] Plan of Treatment: Future Appointments (+ [...] Date/Time Appointment Type Appointme nt Facility Name January 06, 2025 10:30 AM AMBULATORY - REHAB MEDICIN E [facility] January 06, 2025 02:00 PM AMBULATORY - SURGERY [place] [facility] January 30, 2025 11:00 AM AMBULATORY - NONE [place] [facility] Feb 17, 2025 02:00 PM AMBULATORY - SURGERY [place] [facility] Apr 14, 2025 10:30 AM AMBULATORY - MEDICINE [facility] Lab Results: +/- 30 days of [...] Type Comment January 15, 2025 10:00 AM [facility] WN DRUG SCREEN EXPANDED IN-HOUSE URINE Specimen [...] January 02, 2025 08:09 AM Reporting Lab: [address] [address] Performing Lab: [address] [address] TETRAHYDROCANNABINOL SCREEN NEG Cuto ff < 50 [...] < 1 January 14, 2025 12:00 PM [facility] CBC/PLT BLOOD Specimen Type: BLOOD No comment entered. Ordering Provider: LAURY KENYON Report Released Date/Time: January 06, 2025 12:45 PM Reporting Lab: [address] [address] Performing Lab: [address] [address] WBC 11.6 10*3/uL H 5.0-10.0 RBC 4.36 10*6/uL L 4.6-6.2 HGB 12.7 g/dL L 14.0-18.0 HCT 39.9 L 42.0-52.0 MCV 91.5 fL 80.0-94.0 MCH 29.1 pg 27.0-31.0 MCHC 31.8 g/dL L 32.0-36.0 PLT 212 10*3/uL 150-450 MPV 9.9 fL 9.0-13.1 RDW 14.6 11.0-16.0 NRBC 0.0 0.0-0.0 January 14, 2025 12:00 PM [facility] PANEL 1 PLASMA Specimen Type: PLASM A Comment: CRITICAL CALLED TO & READ BACK BY: LAURY KENYON 01/14/25@1541 KLP Estimated Glomerular Filtration Rate (eGFR) calculated using [...] January 06, 2025 03:36 PM Reporting Lab: [address] [address] Performing Lab: [address] [address] CREATININE 0.97 mg/dL 0.72-1.25 UREA NITROGEN 15 mg/dL 9-25 GLUCOSE 258 mg/dL H 74-100 SODIUM 138 mmol/L 136-145 POTASSIUM 3.6 mmol/L 3.5-5.1 CHLORIDE 87 mmol/L L 98-107 CO2 46 mmol/L HH 22-29 CALCIUM 8.8 mg/dL 8.4-10.2 ANION GAP 5 meq/L 3-19 eGFR (CKD-EPI) 84 January 14, 2025 12:00 PM [facility] GLYCOHEMOGLOBIN BLOOD Specimen Type: BLOOD Comment: Prediabetes: 5.7%-6.4% Diabetes: >= 6.5% [facility] guidelines for A1c interpretation: Glycemic control targets are based on Shared Decision Making between clinicians and patients. Criteria used to establish an A1c target recommendation can be found at https://www.va.gov/qualityandpatientsafety/ and include the use of result accuracy [...] 8.73 and 9.27. Ref: https://ngsp.org/CAPdata.asp. The in-house Cydcor-Ibotta D-100 analyzer has a historical CV <= 2%. Contact the laboratory for further performance characteristics of this assay. Ordering Provider: LAURY KENYON Report Released Date/Time: January 06, 2025 03:36 PM Reporting Lab: [address] [address] Performing Lab: [address] [address] GLYCOHEMOGLOBIN 7.2 H 4.4-5.6 Social History: Smoking Status (Most current) and [...] 25, 2024 ADVANCE DIRECTIVE DISCUSSION ANTHONY [facility] Radiology Reports: +/- 30 days of [...] treatment facilities. Date/Time Radiology Report Provider Source January 30, 2025 11:14 AM SHOULDER-LEFT 2 OR MORE VIEWS: ROXI WINKLER [facility] [id number] -[id number] M Ex Date: JANUARY 30, 2025@11:14 Req Phys: LAURY KENYON Loc: [place] [facility] RN HM VST (Req'g Loc) Img Loc: [facility] RADIOLOGY Service: [place] [address] (Case [id number] COMPLETE)SHOULDER-LEFT 2 OR MORE VIEWS (RAD Detailed) CPT:85371 Reason for Study: pain Clinical History: Report Status: Verified Date Reported: JANUARY 30, 2025 Date Verified: JANUARY 30, 2025 Manager Secondary E-Sig: Report: EXAMINATION: LEFT SHOULDER 2 VIEWS CLINICAL INDICATIONS: Pain COMPARISON: None FINDINGS: There has been a fracture of the surgical neck of the humerus with some foreshortening and there is some lateral displacement of the distal fracture fragment. On the AP image a residual area of bone diastases is seen along the superior aspect of the humerus consistent with incomplete bone healing. There is otherwise extensive bony remodeling of healing. Findings are consistent with more remote fracture. Clinical correlation is recommended especially given there are no previous exams for comparison. There also appear to be old fractures of posterior left third fourth fifth and sixth ribs. There is moderate acromioclavicular joint arthropathy. There is some inferior lateral tilt of the distal acromion with some decreased acromiohumeral distance which would predispose the patient to chronic rotator cuff impingement and tear.. Impression: Subacute/chronic fracture of humerus as described. Acromioclavicular joint arthropathy decreased acromiohumeral distance findings of which would predispose the patient to chronic rotator cuff impingement/tear. Old fractures of left ribs. Time was taken to review the chart in [facility]. It was confirmed that the patient has a past medical history of closed fracture of left humerus Primary Diagnostic Code: NO ALERT REQUIRED Primary Interpreting Staff: DUSTY SCOTT, Radiologist Verified by manager performance improvement for DUSTY SCOTT /DUSTY GONZALEZ-D [facility] January 30, 2025 10:57 AM U/S ABDOMEN LTD: ROXI WINKLER [facility] [id number] -1955 M Exm Date: JANUARY 30, 2025@10:57 Req Phys: LAURY KENYON Pat Loc: [place] [facility] CRAFT ARTIST PHONE (Req'g Loc) Img Loc: ULTRASOUND Service: [place] [address] (Case [id number] COMPLETE)U/S ABDOMEN LTD ([place] Detailed) CPT:87801 Reason for Study: bilateral abdominal hematoma increasing in size Clinical History: Report Status: Verified Date Reported: JANUARY 30, 2025 Date Verified: JANUARY 30, 2025 Manager Secondary E-Sig: Report: EXAMINATION: ULTRASOUND THE ABDOMEN LIMITED CLINICAL INDICATIONS: Bilateral abdominal hematomas increasing in size COMPARISON: None FINDINGS: Sonographic images targeted to the area of clinical interest in the right lower quadrant and left lower quadrant abdominal bowden demonstrate over the right lower quadrant heterogeneous masslike lesion 5.0 x 1.2 x 3.8 cm compatible with stated history of hematoma. Over the left lower quadrant abdominal wall heterogeneous mass with some internal areas of fluid 1.9 x 5.9 x 5.9 cm is noted likely also due to hematoma with some internal areas of liquefaction. These areas do not appear significantly hyperemic to suggest infection. Continued follow-up in attempt to confirm resolution is recommended to exclude less likely neoplastic foci. No additional masses or fluid collections are evident. Impression: Bilateral abdominal wall heterogeneous mass is in the areas of clinical interest consistent with hematomas with the lesion on the left appearing more complex likely due to internal liquefaction. Primary Diagnostic Code: SIGNIFICANT ABNORMALITY, ATTN NEEDED Primary Interpreting Staff: DUSTY SCOTT, Radiologist Verified by manager performance improvement for DUSTY SCOTT /DUSTY GONZALEZ-Yancy [facility] Dec 23, 2024 12:59 PM SEGMENTAL PRESSURES, LOWER EXT(ROCK) UNILAT: ROXI WINKLER [facility] [id number] -1955 M Exm Date: DEC 23, 2024@12:59 Req Phys: MARCUS MONTELONGO Loc: [place] POD/PROCEDURE/ATT1/LD (Req Img Loc: [place] [facility] [place] Service: Unknown (Case [id number] COMPLETE) SEGMENTAL PRESSURES, LOWER EXT(AB(VAS Detailed) CPT:70762 Reason for Study: SEE CLINICAL HISTORY Clinical History: ROCK's/Segs Indications: Diminished pulses Report Status: Verified Date Reported: DEC 24, 2024 Date Verified: DEC 24, 2024 Manager Secondary E-Sig: Report: SEGMENTAL PRESSURES AND ANKLE-BRACHIAL INDEX [...] Staff: TARYN TOMAS, ATTENDING PHYSICIAN Verified by manager performance improvement for TARYN TOMAS /TARYN TELLES [facility] Dec 11, 2024 10:15 AM FOOT-LEFT 3 OR MORE VIEWS: ROXI WINKLER [facility] [id number] -1955 M Exm Date: DEC 11, 2024@10:15 Req Phys: MARCUS MONTELONGO Loc: [place] POD/PROCEDURE/ATT1/LD (Req Img Loc: [facility] RADIOLOGY Service: [place] [address] (Case [id number] COMPLETE)FOOT-LEFT 3 OR MORE VIEWS (RAD Detailed) CPT:42202 Reason for Study: trauma left 1st/2nd toes Clinical History: r/o Fx Report Status: Verified Date Reported: DEC 12, 2024 Date Verified: DEC 12, 2024 Manager Secondary E-Sig: Report: FOOT-LEFT 3 OR MORE VIEWS, [...] Staff: ZBIGNIEW JULIAN, Staff Physician Verified by manager performance improvement for ZBIGNIEW JULIAN /ZBIGNIEW [facility] Encounter Notes: All associated encounter notes This section contains the clinical notes associated to the Encounter. Date/Time Encounter Note(s) Provider Source January 14, 2025 03:34 PM [facility] NOTE: LOCAL TITLE: [facility] CHART CHECK STANDARD TITLE: [facility] NOTE DATE OF NOTE: JANUARY 14, 2025@15:34 ENTRY DATE: JANUARY 14, 2025@15:35:04 AUTHOR: LAURY KENYON COSIGNER: URGENCY: STATUS: COMPLETED SUBJECT: lab results January 14, 2025@12:00 Test Name Result Units Range --------- ------ ----- ----- GLYCOHEMOGLOBIN 7.2 H % 4.4 - 5.6 WBC 11.6 H K/cmm 5.0 - 10.0 RBC 4.36 L M/cmm 4.6 - 6.2 HGB 12.7 L g/dL 14.0 - 18.0 HCT 39.9 L % 42.0 - 52.0 MCV 91.5 fL 80.0 - 94.0 MCH 29.1 pg 27.0 - 31.0 MCHC 31.8 L g/dL 32.0 - 36.0 RDW 14.6 % 11.0 - 16.0 PLT 212 K/cmm 150 - 450 MPV 9.9 fL 9.0 - 13.1 NRBC 0.0 % 0.0 - 0.0 SODIUM 138 mmol/L 136 - 145 POTASSIUM 3.6 mmol/L 3.5 - 5.1 CHLORIDE 87 L mmol/L 98 - 107 CO2 46 H* mmol/L 22 - 29 ANION GAP 5.0 mEq/L 3 - 19 GLUCOSE 258 H mg/dL 74 - 100 UREA NITROGEN 15 mg/dL 9 - 25 CREATININE 0.97 mg/dL 0.72 - 1.25 eGFR (CKD-EPI) 84 SEE EVAL CALCIUM 8.8 mg/dL 8.4 - 10.2 labs stable. will send lab letter. /angie/ LAURY KENYON APRN ADVANCED PRACTICE REGISTERED NURSE, [facility] Signed: 01/14/2025 15:53 LAURY KENYON-[facility]URA [facility] January 02, 2025 12:45 PM ADDENDUM: LOCAL TITLE: Addendum STANDARD TITLE: ADDENDUM DATE OF NOTE: JANUARY 02, 2025@12:45:02 ENTRY DATE: JANUARY 02, 2025@12:45:04 AUTHOR: LAURY KENYON EXP COSIGNER: URGENCY: STATUS: COMPLETED divya please let know about plan above. /angie/ LAURY KENYON APRN ADVANCED PRACTICE REGISTERED NURSE, [facility] Signed: 01/02/2025 12:45 Receipt Acknowledged By: 01/02/2025 15:04 /angie/ SHIMON SINCLAIR RN --- Original Document --- 12/31/24 [facility] NURSING PROGRESS: [facility] FOLLOW-UP NOTE Date of visit: Dec Time spent with patient: 45 min Date of admission to [facility]: Patient Identified by: Name, Facial Recognition, Known Address Source of Information: Patient, Spouse What matter most to you in your life right now? Being able to be home with family MEDICATIONS: Active Medications: Active Outpatient Medications (including Supplies): ALBUTEROL 90MCG (CFC-F) 200D ORAL INHL INHALE 2 PUFFS BY ACTIVE MOUTH EVERY 6 HOURS NEEDED FOR SHORTNESS OF BREATH AMOXICILLIN 875/CLAV K 125MG TAB TAKE 1 TABLET BY MOUTH ACTIVE TWICE A DAY Indication: FOR SKIN OR SOFT TISSUE INFECTION BANDAGE,GAUZE 4.5IN X 4.1YD STERILE USE BANDAGE ON ACTIVE AFFECTED AREA EVERY OTHER DAY Indication: FOR WOUND CARE BIKTARVY 50/200/25 TAB TAKE 1 TABLET BY MOUTH DAILY ACTIVE Indication: INFECTION BUMETANIDE 2MG TAB TAKE ONE TABLET BY MOUTH DAILY FOR ACTIVE FLUID (TAKE ADDITIONAL EVENING DOSE FOR 3LB WEIGHT GAIN IN 24 HOURS OR 5LB WEIGHT GAIN IN 1 WEEK) CLEANSER,WOUND SKINTEGRITY TOP SPRAY SPRAY TO AFFECTED ACTIVE AREA NEEDED Indication: FOR WOUND CARE DOCUSATE NA 50MG/SENNOSIDES 8.6MG TAB TAKE 1 TABLET BY ACTIVE MOUTH TWICE A DAY Indication: FOR CONSTIPATION DRESSING,HONEY TOP PASTE APPLY SMALL AMOUNT TO [...] ON AN EMPTY STOMACH. Indication: FOR STOMACH PROMOGRAN MIKE 4.34 X 4.34IN #MA028 APPLY DRESSING(S) ACTIVE TO AFFECTED AREA EVERY OTHER DAY SITAGLIPTIN (EQV-ZITUVIO) 100MG TAB TAKE ONE TABLET [...] GAS 3 LITERS NASAL CANNULA DAILY ACTIVE 26 Total Medications Weia-esc-myaxrbp products used by patient: None per patient- Medications/OTC/supplements started and/or discontinued since last [facility] visit. PER [facility] medication record. Medication list compared with list/medication bottles in the home: No medication discrepancies were identified. Has the patient missed any doses since the last visit?* No Updated medication list was provided for the patient/caregiver: during the visit Education Provided: Education including regimen, indication for use, potential side effects, and interactions provided for the following medications: reviewed with patient-he has good understanding of his medicines. Medication education and updated medication sheet provided to: Patient, Spouse Patient/caregiver indicated understanding by: Verbalization Medications set up by: Self, Caregiver Anticoagulant use: Patient denies any of the above HOME SAFETY ASSESSMENT: No Unsound structure No Unsafe functional barriers (stairs, etc.) No Unsafe placement of rugs, cords, furniture No Weapons in the home N/A Weapons secured in an area away from the area of care provision No Inadequate Heating/Electricity No Inadequate Cooking Facilities No Inadequate Sleeping Arrangements No Inadequate Ventilation No Inadequate [place] No Unsafe Storage of Supplies/Equipment No Presence of Infestation of Pests Yes Functioning Smoke Alarm Present Yes Fire Extinguisher Present Yes Fire Exit Plan No Use of Restraints Yes Home is adaptable for Home Care No Smoking materials present in the home N/A Pets secured in an area away from the area of care provision No Additional safety concerns: Temperature: Temperature: 98.3 F (36.8 C) Pulse: Pulse: 88 Pulse Oximetry: 96 Respirations: Respirations: 16 Blood Pressure: Blood Pressure: 130/68 Pain: Pain: 0 OXYGEN IN THE HOME: Yes: Patient Patient receives home oxygen by: Nasal Cannula at a rate of 3 Continuous Vendor name and telephone number: Home Oxygen Saftey Risk Assessment: Yes Liter flow correct based on prescription? Yes Patient knowledgeable of prescription? Yes No smoking signs posted? Yes Smoking materials/potential for open flames (candles, lighters, gas stove, used ashtrays, etc.) Yes Fire extinguisher in the home? Yes Functioning smoke detectors in the home? Yes Location of concentrator: is there at least 3 inches of space on all sides for adequate ventilation and away from heat source or flammable materials? Yes All portable tanks/back up tank secured in storage racks in well-ventilated area Home Oxygen Education: -Encourage Seibert to notify neighbors of Oxygen in use. -Reviewed causes of fire (smoking, open flames, oil based products) and precautions to prevent fire related injuries. -Placement and maintenance of concentrator, tubing, and accessories. -Written materials provided on home oxygen use. -Contact vendor with questions or concerns. Recommendations for identified risks: No identified risks noted// Patient/caregiver response to education: Verbalizes understanding PAIN EVALUATION: Patient answers NO to Do you have pain? question. NEUROLOGICAL STATUS: No problems noted The patient is currently: Alert, Oriented to person, Oriented to place, Oriented to time, Oriented to situation, Follows verbal commands, Pupils PEARRL The patient exhibits: Forgetful Education Provided: Safety [...] and under Do you feel suicidal today? NCARDIOVASCULAR STATUS: unable to take DOAC d/t bilateral [...] require immediate medication attention (s/s of acute MO, palpitations, ect...), Notify [facility] of new or [...] Has large hematoma on the lower right and left side of his abdomen-it is smaller-and no pain at all-has dry scabbed areas on the toes of his left foot- they are dried. toe nail has fallen off- up and no drainage noted. MOBILITY: Patient [...] BPH Visit scheduled for on or around 01/30/25 PCP, Patient conts to have pain in his left arm/shoulder- The nail has fallen off the big toe-daughter is keeping it clean-sees podiatry 01/06. Hematomas-the left hematoma has gotten bigger than the right-both has hard places that you can feel-he says they do not hurt as much as they did but he and family are concerned because they do not seem to be getting any better. He is also also to retry semaglutide-he stated he has thought about it and wonders if some of the issues he thought was caused by this medication was really something else at the time. Will discuss at his next diabetic clinic appt. /es/ SHIMON SINCLAIR RN Signed: 01/02/2025 08:02 Receipt Acknowledged By: 01/02/2025 08:46 /es/ LAURY KENYON APRN ADVANCED PRACTICE REGISTERED NURSE, [facility] 01/02/2025 ADDENDUM STATUS: COMPLETED bilateral abdominal hematomas following subcutaneous injections have been slow to resolve but patient says pain has decreased and did not report that they are increased in size. Per discussion with attending, hematomas resolve more slowly in elderly people. The pain is caused by inflammation in the area. Plan: 1. apply topical diclofenac gel 3-4 times daily 2. RN to bryon the circumference of each hematoma and monitor for increase or decrease in size. If it increases consider imaging. 3. continued shoulder pain- order xray to be done at [facility] when comes for his podiatry appt. /angie/ LAURY KENYON APRN ADVANCED PRACTICE REGISTERED NURSE, [facility] Signed: 01/02/2025 12:44 LAURY KENYON-[facility]URA [facility] Dec 31, 2024 05:28 PM [facility] NURSING NOTE: LOCAL TITLE: [facility] NURSING PROGRESS STANDARD TITLE: [facility] NURSING NOTE DATE OF NOTE: DEC 31, 2024@17:28 ENTRY DATE: DEC 31, 2024@17:28:30 AUTHOR: SHIMON SINCLAIR EXP COSIGNER: URGENCY: STATUS: COMPLETED [facility] NURSING PROGRESS Has ADDENDA [facility] FOLLOW-UP NOTE Date of visit: Dec Time spent with patient: 45 min Date of admission to [facility]: Patient Identified by: Name, Facial Recognition, Known Address Source of Information: Patient, Spouse What matter most to you in your life right now? Being able to be home with family MEDICATIONS: Active Medications: Active Outpatient Medications (including Supplies): ALBUTEROL 90MCG (CFC-F) 200D ORAL INHL INHALE 2 PUFFS BY ACTIVE MOUTH EVERY 6 HOURS NEEDED FOR SHORTNESS OF BREATH AMOXICILLIN 875/CLAV K 125MG TAB TAKE 1 TABLET BY MOUTH ACTIVE TWICE A DAY Indication: FOR SKIN OR SOFT TISSUE INFECTION BANDAGE,GAUZE 4.5IN X 4.1YD STERILE USE BANDAGE ON ACTIVE AFFECTED AREA EVERY OTHER DAY Indication: FOR WOUND CARE BIKTARVY 50/200/25 TAB TAKE 1 TABLET BY MOUTH DAILY ACTIVE Indication: INFECTION BUMETANIDE 2MG TAB TAKE ONE TABLET BY MOUTH DAILY FOR ACTIVE FLUID (TAKE ADDITIONAL EVENING DOSE FOR 3LB WEIGHT GAIN IN 24 HOURS OR 5LB WEIGHT GAIN IN 1 WEEK) CLEANSER,WOUND SKINTEGRITY TOP SPRAY SPRAY TO AFFECTED ACTIVE AREA NEEDED Indication: FOR WOUND CARE DOCUSATE NA 50MG/SENNOSIDES 8.6MG TAB TAKE 1 TABLET BY ACTIVE MOUTH TWICE A DAY Indication: FOR CONSTIPATION DRESSING,HONEY TOP PASTE APPLY SMALL AMOUNT TO [...] ON AN EMPTY STOMACH. Indication: FOR STOMACH PROMOGRAN MIKE 4.34 X 4.34IN #MA028 APPLY DRESSING(S) ACTIVE TO AFFECTED AREA EVERY OTHER DAY SITAGLIPTIN (EQV-ZITUVIO) 100MG TAB TAKE ONE TABLET [...] GAS 3 LITERS NASAL CANNULA DAILY ACTIVE 26 Total Medications Rvkx-yms-ovtjxwj products used by patient: None per patient- Medications/OTC/supplements started and/or discontinued since last [facility] visit. PER [facility] medication record. Medication list compared with list/medication bottles in the home: No medication discrepancies were identified. Has the patient missed any doses since the last visit?* No Updated medication list was provided for the patient/caregiver: during the visit Education Provided: Education including regimen, indication for use, potential side effects, and interactions provided for the following medications: reviewed with patient-he has good understanding of his medicines. Medication education and updated medication sheet provided to: Patient, Spouse Patient/caregiver indicated understanding by: Verbalization Medications set up by: Self, Caregiver Anticoagulant use: Patient denies any of the above HOME SAFETY ASSESSMENT: No Unsound structure No Unsafe functional barriers (stairs, etc.) No Unsafe placement of rugs, cords, furniture No Weapons in the home N/A Weapons secured in an area away from the area of care provision No Inadequate Heating/Electricity No Inadequate Cooking Facilities No Inadequate Sleeping Arrangements No Inadequate Ventilation No Inadequate [place] No Unsafe Storage of Supplies/Equipment No Presence of Infestation of Pests Yes Functioning Smoke Alarm Present Yes Fire Extinguisher Present Yes Fire Exit Plan No Use of Restraints Yes Home is adaptable for Home Care No Smoking materials present in the home N/A Pets secured in an area away from the area of care provision No Additional safety concerns: Temperature: Temperature: 98.3 F (36.8 C) Pulse: Pulse: 88 Pulse Oximetry: 96 Respirations: Respirations: 16 Blood Pressure: Blood Pressure: 130/68 Pain: Pain: 0 OXYGEN IN THE HOME: Yes: Patient Patient receives home oxygen by: Nasal Cannula at a rate of 3 Continuous Vendor name and telephone number: Home Oxygen Saftey Risk Assessment: Yes Liter flow correct based on prescription? Yes Patient knowledgeable of prescription? Yes No smoking signs posted? Yes Smoking materials/potential for open flames (candles, lighters, gas stove, used ashtrays, etc.) Yes Fire extinguisher in the home? Yes Functioning smoke detectors in the home? Yes Location of concentrator: is there at least 3 inches of space on all sides for adequate ventilation and away from heat source or flammable materials? Yes All portable tanks/back up tank secured in storage racks in well-ventilated area Home Oxygen Education: -Encourage Seibert to notify neighbors of Oxygen in use. -Reviewed causes of fire (smoking, open flames, oil based products) and precautions to prevent fire related injuries. -Placement and maintenance of concentrator, tubing, and accessories. -Written materials provided on home oxygen use. -Contact vendor with questions or concerns. Recommendations for identified risks: No identified risks noted// Patient/caregiver response to education: Verbalizes understanding PAIN EVALUATION: Patient answers NO to Do you have pain? question. NEUROLOGICAL STATUS: No problems noted The patient is currently: Alert, Oriented to person, Oriented to place, Oriented to time, Oriented to situation, Follows verbal commands, Pupils PEARRL The patient exhibits: Forgetful Education Provided: Safety [...] and under Do you feel suicidal today? NCARDIOVASCULAR STATUS: unable to take DOAC d/t bilateral [...] require immediate medication attention (s/s of acute [place], palpitations, ect...), Notify [facility] of new or [...] Has large hematoma on the lower right and left side of his abdomen-it is smaller-and no pain at all-has dry scabbed areas on the toes of his left foot- they are dried. toe nail has fallen off- up and no drainage noted. MOBILITY: Patient [...] BPH Visit scheduled for on or around 01/30/25 PCP, Patient conts to have pain in his left arm/shoulder- The nail has fallen off the big toe-daughter is keeping it clean-sees podiatry 01/06. Hematomas-the left hematoma has gotten bigger than the right-both has hard places that you can feel-he says they do not hurt as much as they did but he and family are concerned because they do not seem to be getting any better. He is also also to retry semaglutide-he stated he has thought about it and wonders if some of the issues he thought was caused by this medication was really something else at the time. Will discuss at his next diabetic clinic appt. /es/ SHIMON SINCLAIR RN Signed: 01/02/2025 08:02 Receipt Acknowledged By: 01/02/2025 08:46 /es/ LAURY KENYON APRN ADVANCED PRACTICE REGISTERED NURSE, [facility] 01/02/2025 ADDENDUM STATUS: COMPLETED bilateral abdominal hematomas following subcutaneous injections have been slow to resolve but patient says pain has decreased and did not report that they are increased in size. Per discussion with attending, hematomas resolve more slowly in elderly people. The pain is caused by inflammation in the area. Plan: 1. apply topical diclofenac gel 3-4 times daily 2. RN to bryon the circumference of each hematoma and monitor for increase or decrease in size. If it increases consider imaging. 3. continued shoulder pain- order xray to be done at [facility] when comes for his podiatry appt. /angie/ LAURY KENYON APRN ADVANCED PRACTICE REGISTERED NURSE, [facility] Signed: 01/02/2025 12:44 01/02/2025 ADDENDUM STATUS: COMPLETED divya please let know about plan above. /es/ LAURY KENYON APRN ADVANCED PRACTICE REGISTERED NURSE, [facility] Signed: 01/02/2025 12:45 Receipt Acknowledged By: * AWAITING SIGNATURE * SHIMON SINCLAIR [facility]
--- OUTSIDE RECORDS SUMMARY | 2025-01-06 06:30 | XMS_ITS | Encounter Summary ---
Author Name [facility] [place] [facility] [place] Address [address] [place] [address] Care Team Providers Care Dining Service Supervisor Name Role Phone LAURY KENYON Primary Care Provider Unavailab SHIMON Alex Unavailable Unavailable RICK FREEMAN Unavailable Unavailable REEMA BENDER Unavailable Unavailable NATASHA PICKENS Unavailable Unavailable JENY SOTREY Unavailable Unavailable ALONSO IRVING Unavailable Unavailable Insurance [...] PREFERRED PROVIDER ORGANIZAT ION (PPO) [employer] Jun 03, 2017 [id number] ROXI WINKLER PATIENT HUMANA [facility] (WNR) MEDICARE ADVANTAGE [facility] (WN) Sep 03, 2019 [id number] ROXI WINKLER JR PATIENT [employer]MANA [facility] (WNR) MEDICARE ADVANTAGE [facility] (WN) Sep 03, 2019 [id number] ORXI WINKLERA MCR (WNR) MEDICARE ADVANTAGE HUMAN A INSUR ANCE COM Apr 04, 2019 [id number] ROXI WINKLERA MCR (WNR) MEDICARE ADVANTAGE [facility] (WNR) Apr 03, 2019 [id number] ROXI WINKLERA MCR (WNR) MEDICARE ADVANTAGE [facility] (WNR) Apr 03, 2019 [id number] ROXI WINKLERA MCR (WNR) MEDICARE ADVANTAGE [facility] (WNR) Apr 03, 2019 [id number] ROXI WINKLER JR PHARMACY PRESCRIPT ION NONE Jun 03, 2017 NONE [id number] ROXI WINKLER MEDICARE PART D (WNR) MEDICARE (M) PART D Sep 03, 2023 PART D [id number] ROXI WINKLER JR PATIENT Selected Encounter This section includes the information on record at [place] for the Encounter. Date/Time Encounter Type Encounter Description Reason Provider Source January 06, 2025 10:30 AM WHEELCHAIR MNGMENT TRAINING WHEELCHAIR & ADVAN MOBILITY ICD-10-CM I50.32 Chronic diastolic (congestive) heart failure FRANCO MARKS Adela Encounter Template Text not used by [place] Assessments - Encounter Diagnoses This section includes the primary and secondary diagnoses documented for the Encounter. Date/Time Primary/Secondary Diagnosis Diagnosis Name Provider Source January 06, 2025 03:35 PM PRIMARY Chronic diastolic (congestive) [facility] January 06, 2025 03:35 PM SECONDARY Chronic obstructive pulmonary disease, unspecified [facility] January 06, 2025 03:35 PM SECONDARY Chronic respiratory failure with hypoxia [facility] January 06, 2025 03:35 PM SECONDARY Difficulty in walking, not elsewhere classified [facility] January 06, 2025 03:35 PM SECONDARY Obesity, unspecified FRANCO MARKS [facility] Plan of Treatment: Future Appointments (+ 6 months) and Future Tests (+/- 45 days) The Plan of Treatment section includes future care activities for the patient from all [place] treatmentfacone healthities. This section includes future appointments and future orders which are active, pending or scheduled. Future Appointments This section includes appointments that were scheduled to occur 6 months from the date of the Encounter, up to a maximum of 20 appointments. The data comes from all [place] treatment facilities. Appointment Date/Time Appointment Type Appointme nt Facility Name January 30, 2025 11:00 AM [facility] Feb 17, 2025 02:00 PM [facility] - SURGERY [facility] Apr 14, 2025 10:30 AM AMBULATORY - MEDICINE [facility] Lab Results: +/- 30 days [...] 15, 2025 10:00 AM [facility] WN DRUG SCREEN EXPANDED IN-HOUSE URINE Specimen [...] January 02, 2025 08:09 AM Reporting Lab: [address] [address] Performing Lab: [address] [address] TETRAHYDROCANNABINOL SCREEN NEG Cuto ff < 50 [...] < 1 January 14, 2025 12:00 PM [facility] CBC/PLT BLOOD Specimen Type: BLOOD No comment entered. Ordering Provider: LAURY KENYON Report Released Date/Time: January 06, 2025 12:45 PM Reporting Lab: [address] [address] Performing Lab: [address] [address] WBC 11.6 10*3/uL H 5.0-10.0 RBC 4.36 10*6/uL L 4.6-6.2 HGB 12.7 g/dL L 14.0-18.0 HCT 39.9 L 42.0-52.0 MCV 91.5 fL 80.0-94.0 MCH 29.1 pg 27.0-31.0 MCHC 31.8 g/dL L 32.0-36.0 PLT 212 10*3/uL 150-450 MPV 9.9 fL 9.0-13.1 RDW 14.6 11.0-16.0 NRBC 0.0 0.0-0.0 January 14, 2025 12:00 PM [facility] PANEL 1 PLASMA Specimen Type: PLASM A Comment: CRITICAL CALLED TO & READ BACK BY: LAURY KENYON 01/14/25@154[facility] Estimated Glomerular Filtration Rate (eGFR) calculated [...] January 06, 2025 03:36 PM Reporting Lab: [address] [address] Performing Lab: [address] [address] CREATININE 0.97 mg/dL 0.72-1.25 UREA NITROGEN 15 mg/dL 9-25 GLUCOSE 258 mg/dL H 74-100 SODIUM 138 mmol/L 136-145 POTASSIUM 3.6 mmol/L 3.5-5.1 CHLORIDE 87 mmol/L L 98-107 CO2 46 mmol/L HH 22-29 CALCIUM 8.8 mg/dL 8.4-10.2 ANION GAP 5 meq/L 3-19 eGFR (CKD-EPI) 84 January 14, 2025 12:00 PM [facility] GLYCOHEMOGLOBIN BLOOD Specimen Type: BLOOD Comment: Prediabetes: 5.7%-6.4% Diabetes: >= 6.5% [facility] guidelines for A1c interpretation: Glycemic control [...] 8.73 and 9.27. Ref: https://ngsp.org/CAPdata.asp. The in-house [employer]Seg[employer] D-100 analyzer has a historical CV <= 2%. Contact the laboratory for further performance characteristics of this assay. Ordering Provider: LAURY KENYON Report Released Date/Time: January 06, 2025 03:36 PM Reporting Lab: [address] [address] Performing Lab: [address] [address] GLYCOHEMOGLOBIN 7.2 H 4.4-5.6 Vital Signs: All taken on the encounter date This section contains inpatient and outpatient Vital Signs collected on the date of the Encounter. Date/Time Temperature Pulse Blood Pressure Respiratory Rate SP02 Pain Height Weight Body Mass Index Source January 06, 2025 10:29 AM 97.8 87 99/58 92 4 [place] [facility] Social History: Smoking Status (Most [...] Anita bartholomew Sep 06, 2023 10:00 AM [place]-TOBACCO NEVER USED [facility] Tobacco Use History This section includes a history of the smoking, or tobacco-related health factors, that were collected on or before the date of the Encounter. The data comes from the [place] facility where the Encounter took place. Date/Time Smoking Status/Tobacco Use Comment Yael acsabas Jun 20, 2022 10:30 AM [place]-TOBACCO NEVER USED [facility] Jul 27, 2020 03:22 PM VA-TOBACCO NEVER USED [facility] Jul 19, 2018 11:24 AM VA-TOBACCO NEVER USED [facility] Mar 18, 2018 10:14 AM V9 LIFETIME NON-USER OF TOBACCO [facility] Mar 29, 2017 07:47 AM V9 LIFETIME NON-USER OF TOBACCO [facility] Apr 27, 2016 08:56 AM V9 LIFETIME NON-USER OF TOBACCO [facility] May 27, 2015 09:53 AM V9 LIFETIME NON-USER OF TOBACCO [facility] Jun 29, 2014 02:25 PM V9 LIFETIME NON-USER OF TOBACCO [facility] Feb 10, 2013 02:08 PM V9 LIFETIME NON-USER OF TOBACCO [facility] Mar 19, 2012 09:36 AM V9 LIFETIME NON-USER OF TOBACCO [facility] Dec 13, 2010 10:09 AM V9 LIFETIME NON-USER OF TOBACCO [facility] Aug 13, 2006 09:26 AM V9 LIFETIME NON-USER OF TOBACCO [facility] Apr 24, 2006 02:37 PM HF V9 LIFETIME NON-SMOKER [facility] Advance Directives: All historical and current [...] 25, 2024 ADVANCE DIRECTIVE DISCUSSION ANTHONY IRVING [facility] Radiology Reports: +/- 30 days of [...] the Encounter. The data comes from all [place] treatment facilities. Date/Time Radiology Report Provider Source January 30, 2025 11:14 AM SHOULDER-LEFT 2 OR MORE VIEWS: ROXI WINKLER [facility] [id number] -1955 M Exm Date: JANUARY 30, 2025@11:14 Req Phys: LAURY KENYON Loc: [place] [facility] RN HM VST (Req'g Loc) Img Loc: CDD RADIOLOGY Service: Unknown [place] [id number] (Case [id number] COMPLETE)SHOULDER-LEFT 2 OR MORE VIEWS (RAD Detailed) CPT:12084 Reason for Study: pain Clinical History: Report Status: Verified Date Reported: JANUARY 30, 2025 Date Verified: JANUARY 30, 2025 Supervisor [employer] E-Sig: Report: EXAMINATION: LEFT SHOULDER 2 VIEWS [...] Interpreting Staff: DUSTY SCOTT, Radiologist Verified by implementation director for DUSTY SCOTT /DUSTY GONZALEZ-D [facility] January 30, 2025 10:57 AM U/S ABDOMEN LTD: ROXI WINKLER [facility] [id number] -1955 M Exm Date: JANUARY 30, 2025@10:57 Req Phys: LAURY KENYON Pat Loc: [place] [facility] ORDER SELECTOR PHONE (Req'g Loc) Img Loc: ULTRASOUND Service: Unknown [place] [id number] (Case [id number] COMPLETE)U/S ABDOMEN LTD (US Detailed) CPT:13956 Reason for Study: bilateral abdominal hematoma increasing in size Clinical History: Report Status: Verified Date Reported: JANUARY 30, 2025 Date Verified: JANUARY 30, 2025 Supervisor [employer] E-Sig: Report: EXAMINATION: ULTRASOUND THE ABDOMEN LIMITED [...] Interpreting Staff: DUSTY SCOTT, Radiologist Verified by implementation director for UDSTY SCOTT /DUSTY GONZALEZ-D [facility] Dec 23, 2024 12:59 PM SEGMENTAL PRESSURES, LOWER EXT(ROCK) UNILAT: ROXI WINKLER [facility] [id number] -1955 M Exm Date: DEC 23, 2024@12:59 Req Phys: MARCUS MONTELONGO Pat Loc: [place] POD/PROCEDURE/ATT1/LD (Req Img Loc: [place] [facility] [place] Service: Unknown (Case [id number] COMPLETE) SEGMENTAL PRESSURES, LOWER EXT(AB(VAS Detailed) CPT:20042 Reason for Study: SEE CLINICAL HISTORY Clinical History: ROCK's/Segs Indications: Diminished pulses Report Status: Verified Date Reported: DEC 24, 2024 Date Verified: DEC 24, 2024 Supervisor [employer] E-Sig: Report: SEGMENTAL PRESSURES AND ANKLE-BRACHIAL INDEX [...] Staff: TARYN TOMAS, ATTENDING PHYSICIAN Verified by implementation director for TARYN TOMAS /TARYN TELLES [facility] Dec 11, 2024 10:15 AM FOOT-LEFT 3 OR MORE VIEWS: ROXI WINKLER [facility] [id number] -1955 M Exm Date: DEC 11, 2024@10:15 Req Phys: MARCUS MONTELONGO Pat Loc: [place] POD/PROCEDURE/ATT1/LD (Req Img Loc: [facility] RADIOLOGY [place]: [place] [address] (Case [id number] COMPLETE)FOOT-LEFT 3 OR MORE VIEWS (RAD Detailed) CPT:84088 Reason for Study: trauma left 1st/2nd toes Clinical History: r/o Fx Report Status: Verified Date Reported: DEC 12, 2024 Date Verified: DEC 12, 2024 Supervisor [employer] E-Sig: Report: FOOT-LEFT 3 OR MORE VIEWS, [...] Staff: ZBIGNIEW JULIAN, Staff Physician Verified by implementation director for ZBIGNIEW JULIAN /ZBIGNIEW [facility] Encounter Notes: All associated encounter notes This section contains the clinical notes associated to the Encounter. Date/Time Encounter Note(s) Provider Source January 06, 2025 10:35 AM PHYSICAL MEDICINE REHAB INITIAL EVALUATION NOTE: LOCAL TITLE: SEATING & MOBILITY NEW EVAL PROGRESS NOTE STANDARD TITLE: PHYSICAL MEDICINE REHAB INITIAL EVALUATION NOTE DATE OF NOTE: JANUARY 06, 2025@10:35 ENTRY DATE: JANUARY 06, 2025@10:35:16 AUTHOR: FRANCO MARKS EXP COSIGNER: URGENCY: STATUS: COMPLETED [place] Seating and Mobility Specialty Power Face to Face Evaluation SUBJECTIVE: Patient presents with his and his son. He is on 3L AAT Supplemental O2, 2/2 COPD. (oxygen concentrator, does not like the tanks) He can walk about 20 steps. The knees turn to spaghetti and he might fall. Sometimes I can barely walk. he c/o 7/10 pain by VAS in his back. He says he has had two back fractures. with surgeries and he falls 1-2x per month. Falls with injuries. Reason for Referral and Patient Goals: Patient requests help for home mobility. PMHx: Active problems - Computerized Problem List is [...] Long-term current use of insulin (SNOMED CT 080246811) 31. Peripheral venous insufficiency 32. Obesity (SNOMED CT 439795669) 33. Obstructive Sleep APNEA (ADULT) (Pediatric) 34. Depressive Disorder NOS Client Information: Service: SERVICE CONNECTED % - NONE FOUND Service Branch Service # Entered Discharge [employer] [phone] Sep HONORABLE Address of the patient: [facility] [address] [address] Phone Numbers for contacting patient: Home: Parties present: This therapist, assistance from COPRA PROCESSOR Staff, patient Storage: Plans to store DME inside home. Home(home, Farm, City or other:) 2 Room apartment. ground floor Front Door: xx Bedroom Door: xx Bathroom Door: xx DEANNA / Ramp: 2 steps to enter. Patient car model / year: 2010 [employer](600#) AD Owned(i.e. Cane, walker, wc, Hospital Bed): Rollator Ambulatory Status: 20 feet, with a Rollator Cardio Status: See Dx List, Afib, heart failure Respiratory Status: 3L Supplemental O2 Current Seating: None Communication: Verbal Communication Easily understood Uses Augmentive communication Device: No Sensation and Skin Issues: Impaired Sensation?: He says that his feet fall asleep at times. Functional Status From Client Report: Dressing: Mod A, and children assist with dressing and care Meal Prep: Mod I Eating: Mod I Bathing: Mod A, caregiver assists in shower Bowel Management(i.e. Colostomy): Continent Bladder Management: Continent Comments: Anatomical Seating Measurements(Inches-from Seated Surface): Weight History Over Previous Year: Measurement DT WEIGHT LB(KG)[BMI] 11/21/2024 09:10 252.0(114.31)[35*] 10/14/2024 09:50 260.0(117.93)[36*] 10/06/2024 13:27 265.0(120.20)[37*] 10/01/2024 15:33 265(120.20)[37*] 02/19/2024 10:01 264.0(119.75)[37*] 02/08/2024 13:17 263.0(119.29)[37*] Most Recent Available Weight: 252.0 lb [114.31 kg] (11/21/2024 09:10) Height: 71 in [180.3 cm] (11/15/2023 12:52) Age: 69 OBJECTIVE: Seat Width Posterior: 16 Depth: 20.5 Lower Legs: 19 Foot Length: Shoulder Width: 18 Chest Width: Shoulder Height: 24 Inf Angle Scapulae(Axilla): Elbow Height(From Seat Surface): Top of Head: Joystick Knob Placement: Right Knees Front Width: Trunk Support Height(Highest): Seatbelt Needed?: Trunk Strap or Harness Needed?: Mobility and Balance: Sitting Trunk Balance(i.e. Good, Fair, Poor): Good Standing Static: poor, he is always afraid of falling. Gait AD Required?: Transfer Type(i.e.Independent, SB): Stood in Parallel bars today. Something to hold onto. Comments: Wheelchair Skills: Power Wheelchair (I, SBA, Unable): Needs Alternative Controls? (i.e. Standard Joystick, Sip/Puff, Head Control): Standard Joystick Joystick Hand(Left/Right/Other): RIGHT Simulation: The patient safely operated the demo today in clinic, around objects, through doorways, and up and down ramps, and was safely able to transfer in and out of DME without assistance. Unit Used today: [id number] Functional Sensory Processing Skills: Patient adequate processing skills to safely operate powered device?: Y Patient has adequate visual acuity to safely operate powered device?: Y Physical Evaluation: Lower Extremities: Amputations(i.e. AKA): None Strength Issues: ROM(i.e. Active or Passive): R Knee Flex: WFL L Knee Flex: WFL Upper Extremities: Amputations: None Strength Issues: ROM(i.e. Active of Passive): R Shoulder Flex: L Shoulder Flex: He cannot raise his LUE, poor ability to flex or abduct the GH joint and UE Edema: Functional Strength Issues(i.e. Manager Electrical): Comments: Visual Acuity: Patient can see across the room and read objects well enough to operate mobility DME. Therapeutic Interventions: Education and Training: -DME Management/Care -Safety -Charging Batteries -Transport -Storage of DME, environment controlled -Transfers Time: Evaluation: 30 Seating Education/Simulation Wheelchair Code: 30 ASSESSMENT: We discussed many options today, comparing scooters and power chairs, and portable devices. It was understood that these devices are meant for hard surfaces only and not for gjh-vsdz-swgpsoy, and should be stored safely inside from the elements. This patient is appropriate for assisted mobility and will need specialty seating based on this evaluation. This patient has demonstrated they are safe, can see clearly enough and has the cognition for safe use of assisted mobility. We agreed today this patient needs a powerchair for mobility inside the home, to meet their medical goals for mobility. MEDICAL JUSTIFICATION: As part of the veterans direct and active component of medical treatment and rehabilitation, they require assisted mobility. This patient will immediately benefit from this device. PLAN: Order appropriate Durable Medical Equipment to meet this patient's deficits for seating and mobility, delivery in two months. DME Recommendations: Instructions to Staff: 1. Three-Month F/U TELE appointment Order requested from Scheduling Needs an 8 foot suitcase ramp (son will move it) for apartment 2. Instructions to Staff: Norma Junior 613Li, Captain Seat 20w x 20d. Please set in highest possible seat height. -Joystick, fixed on the right. -Color: Black -Accessory: Saddle Bag (12.5 Part: [id number]) -Unoccupied Transit Kit Comfort/Memory Seats Part: [id number] -Weather Cover, Medium,Black Part: [id number] Home/Car Mods: -Swing Away Lift with quick connect for 2010 [employer](600#) -Suitcase Ramp needed 8 foot if possible. -[employer] to receive and deliver to patient home, please set the seat post to the highest position. Goals: 1. Patient/Caregiver will demonstrate safe use of recommended durable medical equipment and components by delivery. 2. Patient/Caregiver will demonstrate understanding and proper positioning using recommended durable medical equipment by delivery. /angie/ FRANCO MARKS PT Signed: 01/06/2025 15:36 Receipt Acknowledged By: 01/13/2025 08:21 /angie/ FRANCO [facility]
--- OUTSIDE RECORDS SUMMARY | 2025-01-06 10:00 | XMS_ITS | Encounter Summary ---
Author Name [facility] [place] Organization [place] Address [address] [place] [address] Care Team Providers Care Salad Chef Name Role Phone LAURY KENYON Primary Care [...] PREFERRED PROVIDER ORGANIZAT ION (PPO) ARELIS ON [employer] Jun 03, 2017 [id number] ROXI WINKLER PATIENT HUMANA [employer] (WNR) MEDICARE ADVANTAGE [employer] (WN) Sep 03, 2019 [id number] ROXI WINKLER JR PATIENT [employer]NA [employer] (WNR) MEDICARE ADVANTAGE [employer] (WNR) Sep 03, 2019 [id number] ROXI WINKLERA MCR (WNR) MEDICARE ADVANTAGE HUMAN A INSUR ANCE COM Apr 04, 2019 [id number] ROXI WINKLERA MCR (WNR) MEDICARE ADVANTAGE [employer] (WNR) Apr 03, 2019 [id number] ROXI WINKLERA MCR (WNR) MEDICARE ADVANTAGE [employer] (WNR) Apr 03, 2019 [id number] ROXI WINKLERA MCR (WNR) MEDICARE ADVANTAGE [employer] (WNR) Apr 03, 2019 [id number] ROXI WINKLER JR [facility]ARM[facility] PRESCRIPT ION NONE Jun 03, 2017 NONE [id number] ROXI WINKLER MEDICARE PART D (WNR) MEDICARE (M) PART D Sep 03, 2023 PART D [id number] ROXI WINKLER JR PATIENT Selected Encounter This section includes the information on record at [place] for the Encounter. Date/Time Encounter Type Encounter Description Reason Provider Source January 06, 2025 02:00 PM OFFICE O/P NEW MOD 45 MIN PODIATRY ICD-10-CM E11.40 Type 2 diabetes mellitus with diabetic neuropathy, WILFREDO Mckeon Encounter Template Text not used by [place] Assessments - Encounter Diagnoses This section includes the primary and secondary diagnoses documented for the Encounter. Date/Time Primary/Secondary Diagnosis Diagnosis Name Provider Source January 06, 2025 02:57 PM PRIMARY Type 2 diabetes mellitus with diabetic neuropathy, unsp WILFREDO MONTELONGO [facility] January 06, 2025 02:57 PM SECONDARY Personal history of diabetic foot ulcer WILFREDO MONTELONGO [facility] January 06, 2025 02:57 PM SECONDARY Venous insufficiency (chronic) (peripheral) WILFREDO MONTELONGO [facility] Plan of Treatment: Future Appointments (+ [...] 11:00 AM AMBULATORY - NONE STEPHEN Barnes [facility] Feb 17, 2025 02:00 PM AMBULATORY - SURGERY TAWNY SERRANO [facility] Apr 14, 2025 10:30 AM [facility] Lab Results: +/- 30 days of the encounter This section includes the Chemistry and Hematology Lab Results on record with [place] for the patient. Radiology Reports and Pathology Reports are provided separately, in subsequent sections. Lab Results This section contains the Chemistry/Hematology Results that were resulted 30 days before or 30 daysafter the date of the Encounter. Date/Time Source Result Type Result - Unit Interpretation Reference Range Specimen Type Comment January 15, 2025 10:00 AM [facility] WN DRUG SCREEN EXPANDED IN-HOUSE URINE Specimen [...] January 02, 2025 08:09 AM Reporting Lab: [address] [address] Performing Lab: [address] [address] TETRAHYDROCANNABINOL SCREEN NEG Cuto ff < 50 [...] < 1 January 14, 2025 12:00 PM [facility] CBC/PLT BLOOD Specimen Type: BLOOD No comment entered. Ordering Provider: LAURY KENYON Report Released Date/Time: January 06, 2025 12:45 PM Reporting Lab: [facility] [address] [facility] [address] Performing Lab: [address] [address] WBC 11.6 10*3/uL H 5.0-10.0 RBC 4.36 10*6/uL L 4.6-6.2 HGB 12.7 g/dL L 14.0-18.0 HCT 39.9 L 42.0-52.0 MCV 91.5 fL 80.0-94.0 MCH 29.1 pg 27.0-31.0 MCHC 31.8 g/dL L 32.0-36.0 PLT 212 10*3/uL 150-450 MPV 9.9 fL 9.0-13.1 RDW 14.6 11.0-16.0 NRBC 0.0 0.0-0.0 January 14, 2025 12:00 PM [facility] PANEL 1 PLASMA Specimen Type: PLASM A Comment: CRITICAL CALLED TO & READ BACK BY: LAURY KENYON 01/14/25@8226 [facility] Estimated Glomerular Filtration Rate (eGFR) calculated using [...] January 06, 2025 03:36 PM Reporting Lab: [address] [address] Performing Lab: [address] [address] CREATININE 0.97 mg/dL 0.72-1.25 UREA NITROGEN 15 mg/dL 9-25 GLUCOSE 258 mg/dL H 74-100 SODIUM 138 mmol/L 136-145 POTASSIUM 3.6 mmol/L 3.5-5.1 CHLORIDE 87 mmol/L L 98-107 CO2 46 mmol/L HH 22-29 CALCIUM 8.8 mg/dL 8.4-10.2 ANION GAP 5 meq/L 3-19 eGFR (CKD-EPI) 84 January 14, 2025 12:00 PM [facility] GLYCOHEMOGLOBIN BLOOD Specimen Type: BLOOD Comment: Prediabetes: 5.7%-6.4% Diabetes: >= 6.5% [facility] guidelines for A1c interpretation: Glycemic [...] 8.73 and 9.27. Ref: https://ngsp.org/CAPdata.asp. The in-house PeeplePass-Contract Live D-100 analyzer has a historical CV <= 2%. Contact the laboratory for further performance characteristics of this assay. Ordering Provider: LAURY KENYON Report Released Date/Time: January 06, 2025 03:36 PM Reporting Lab: [facility] [address] [facility] [address] Performing Lab: [address] [address] GLYCOHEMOGLOBIN 7.2 H 4.4-5.6 Social History: Smoking [...] 05, 2016 01:12 AM NON-TOBACCO USE INPATIENT [facility] Tobacco Use History This section includes a history of the smoking, or tobacco-related health factors, that were collected on or before the date of the Encounter. The data comes from the [place] facility where the Encounter took place. Date/Time Smoking Status/Tobacco Use Comment F acility Nov 24, 2015 04:48 PM NON-TOBACCO USE INPATIENT [facility] Oct 01, 2014 07:15 PM NON-TOBACCO USE INPATIENT [facility] Apr 10, 2005 01:20 PM HF V9 LIFETIME NON-SMOKER [facility] Nov 24, 2003 03:11 PM HF V9 LIFETIME NON-SMOKER [facility] Oct 07, 2002 02:26 PM HF V9 LIFETIME NON-SMOKER [facility] Advance Directives: All historical and current [...] 25, 2024 ADVANCE DIRECTIVE DISCUSSION ANTHONY IRVING [facility] Radiology Reports: +/- 30 days of [...] SHOULDER-LEFT 2 OR MORE VIEWS: ROXI WINKLER [facility] [id number] -1955 M Exm Date: JANUARY 30, 2025@11:14 Req Phys: LAURY KENYON Loc: [place] [facility] RN VST (Req'g Loc) Img Loc: CDD RADIOLOGY Service: [place] [address] (Case [id number] COMPLETE)SHOULDER-LEFT 2 OR MORE VIEWS (RAD Detailed) CPT:31179 Reason for Study: pain Clinical History: Report Status: Verified Date Reported: JANUARY 30, 2025 Date Verified: JANUARY 30, 2025 Elementary Spanish Teacher E-Sig: Report: EXAMINATION: LEFT SHOULDER 2 VIEWS [...] Code: NO ALERT REQUIRED Primary Interpreting Staff: Beatrice BELL Verified by pacs specialist for DUSTY SCOTT /DUSTY GONZALEZ-[facility] January 30, 2025 10:57 AM U/S ABDOMEN LTD: ROXI WINKLER [facility] [id number] -1955 M Exm Date: JANUARY 30, 2025@10:57 Req Phys: LAURY KENYON Loc: [place] [facility] POOL MANAGER PHONE (Req'g Loc) Img Loc: ULTRASOUND Service: [place] [address] (Case [id number] COMPLETE)U/S ABDOMEN LTD (US Detailed) CPT:14786 Reason for Study: bilateral abdominal hematoma increasing in size Clinical History: Report Status: Verified Date Reported: JANUARY 30, 2025 Date Verified: JANUARY 30, 2025 Elementary Spanish Teacher E-Sig: Report: EXAMINATION: ULTRASOUND THE ABDOMEN LIMITED [...] ABNORMALITY, ATTN NEEDED Primary Interpreting Staff: DUSTY B TYLER, Radiologist Verified by pacs specialist for DUSTY SCOTT /DUSTY GONZALEZ-CDD [facility] Dec 23, 2024 12:59 PM SEGMENTAL PRESSURES, LOWER EXT(ROCK) UNILAT: ROXI WINKLER [facility] [id number] -1955 M Exm Date: DEC 23, 2024@12:59 Req Phys: MARCUS MONTELONGO Pat Loc: [place] POD/PROCEDURE/ATT1/LD (Req Img Loc: [place] [facility] [place] Service: Unknown (Case [id number] COMPLETE) SEGMENTAL PRESSURES, LOWER EXT(AB(VAS Detailed) CPT:08838 Reason for Study: SEE CLINICAL HISTORY Clinical History: ROCK's/Segs Indications: Diminished pulses Report Status: Verified Date Reported: DEC 24, 2024 Date Verified: DEC 24, 2024 Elementary Spanish Teacher E-Sig: Report: SEGMENTAL PRESSURES AND ANKLE-BRACHIAL INDEX [...] Staff: TARYN TOMAS, ATTENDING PHYSICIAN Verified by pacs specialist for TARYN TOMAS /TARYN TELLES [facility] Dec 11, 2024 10:15 AM FOOT-LEFT 3 OR MORE VIEWS: ROXI WINKLER [facility] [id number] -1955 M Exm Date: DEC 11, 2024@10:15 Req Phys: MARCUS MONTELONGO Pat Loc: [place] POD/PROCEDURE/ATT1/LD (Req Img Loc: [facility] RADIOLOGY Service: [place] [address] (Case [id number] COMPLETE)FOOT-LEFT 3 OR MORE VIEWS (RAD Detailed) CPT:12840 Reason for Study: trauma left 1st/2nd toes Clinical History: r/o Fx Report Status: Verified Date Reported: DEC 12, 2024 Date Verified: DEC 12, 2024 Elementary Spanish Teacher E-Sig: Report: FOOT-LEFT 3 OR MORE VIEWS, [...] Staff: ZBIGNIEW JULIAN, Staff Physician Verified by pacs specialist for ZBIGNIEW JULIAN /ZBIGNIEW HARVEY [facility] Encounter Notes: All associated encounter notes This section contains the clinical notes associated to the Encounter. Date/Time Encounter Note(s) Provider Source January 06, 2025 01:47 PM PODIATRY CONSULT: LOCAL TITLE: PODIATRY CONSULT RESPONSE STANDARD TITLE: PODIATRY CONSULT DATE OF NOTE: JANUARY 06, 2025@13:47 ENTRY DATE: JANUARY 06, 2025@13:47:46 AUTHOR: MARCUS MONTELONGO COSIGNER: URGENCY: STATUS: COMPLETED SOAP Note SUBJECTIVE: The patient is a 69 year old MALE. Chief Complaint: Follow-up diabetic neuropathic patient. Stambaugh with associated left foot first and second toe wounds. Doing well. Past Medical History: Active problems - Computerized [...] Long-term current use of insulin (SNOMED CT 483965736) 31. Peripheral venous insufficiency 32. Obesity (SNOMED CT 749164448) 33. Obstructive Sleep APNEA (ADULT) (Pediatric) 34. Depressive Disorder NOS ALLERGIES: ENALAPRIL, FOSINOPRIL, LOPID, NIASPAN 500MG ER TABLET, ATENOLOL, HYDRALAZINE VASOTEC, SIMVASTATIN, AMLODIPINE BESYLATE 5MG TABLET, SEMAGLUTIDE Food allergies: None known VITALS: SVS - Vital Signs Selected Measurement DT BP TEMP RESP PULSE POx F(C) (L/MIN)(%) 01/06/2025 10:29 99/58 97.8(36.6) 87 92[3.0][] Measurement DT WEIGHT LB(KG)[BMI] 01/06/2025 10:29 FOOT RISK LEVEL: MEDICATION RECONCILIATION: Reviewed current [...] risk level was identified for this patient: = +POD RISK SCORE+ --LEVEL 3 - (HIGH [...] Lower Extermity Dermatological Exam: SKIN: +1 edema bilat legs + SubQ hemosiderin deposition from chronic vneous insuficiency + varicoe veins bilatlower extremity, no DVT nor phlebitis though at this time No signs of bacterial infections bilat Wound #1: Left foot dorsal first toe entire length of toe. Measurement previous visit: 3 cm long by 2 cm wide by 0.1 cm deep, Lees grade 1. Measurement today: Essentially healed, there are 2 small eschars barely 5 mm in size at the dorsal aspect of the toe which are dry and no signs of infection, essentially unstageable. Rest of the toe has normal fully epithelialized skin. There is no probing no tracking no undermining no drainage no odor and no cellulitis. Wound #2: Left foot dorsal secondtoe entire length of toe. Measurement previous visit: 2 cm long by 1 cm wide by 0.1 cm deep, Lees grade 1. Measurement today: Essentially healed, there are 1 eschar 6 mm in size at the dorsal aspect of the toe which is dry and no signs of infection, essentially unstageable. Rest of the toe has normal fully epithelialized skin. There is no probing no tracking no undermining no drainage no odor and no cellulitis. There is no probing no tracking no undermining no drainage no odor and no cellulitis. VASCULAR EVAL: 09/06 DP/PT bilat, cap refil 3 sec x 10 NEUROLOGICAL EVALUATION: insensate bilat Lower Extermity Motor Function: 5/5 all lower extremity muscle groups bilat ORTHOPEDICS EVALUATION: hammertoes bilat, + bunions bilat feet Labs: Hemoglobin A1c was 7.3. Was 14 2024. x-rays: Date Verified: DEC 12, 2024 Report: FOOT-LEFT 3 OR MORE VIEWS, 12/11/2024 10:27 AM EDT INDICATION: trauma left 1st/2nd toes COMPARISON: January 13, 2015 Impression: No acute fracture or malalignment. 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 Calcaneal plantar and Achilles enthesophytes. Mild talonavicular joint degenerative change. Talar beak. No obvious tarsal coalition. Vascular calcifications. ROCK's: Date Verified: DEC 24, 2024 Report: SEGMENTAL PRESSURES AND ANKLE-BRACHIAL INDEX OF [...] No arterial insufficiency is present at rest. IMPRESSION: DM II neuropathy History of diabetic foot ulcer Venous insuff. PLAN: Discussed with patient the diagnosis and treatment plan on this clinic visit. I have reviewed with patient and his son edeucation of pt on DM and ramifications of poor compliance / control of DM. Pt advised of risk of infection / ulceration / amputation / etc. Discontinue wound care. Pending prosthetics for theraputic shoes in order to acomodate significant pedal deformity in an at risk patient. Go to ER and/or call us if any s/s local or systemic infecton arise or if new ulcers or signs of infection develop. Recommend elevation of extremities and low-salt diet to help with venous insufficiency. As well as prevention of venous stasis ulcers. This treament also consisted of an extensive consultation of the condition and the possible alternative to this mode of treatment. RTC: 4 to 6 weeks /angie/ MARCUS MONTELONGO Chief, Podiatry Section Signed: 01/06/2025 14:57 MARCUS MONTELONGO-[facility]
--- OUTSIDE RECORDS SUMMARY | 2025-01-12 04:21 | XMS_ITS | Encounter Summary ---
Author Name [facility] [place] Address [address] [place] [address] Care Team Providers Care Certified Recreational Therapist Name Role Phone LAURY KENYON Primary Care [...] ON [employer] Jun 03, 2017 [id number] ROXI WINKLER PATIENT [employer]NA [facility] (WNR) MEDICARE ADVANTAGE [facility] (WNR) Sep 03, 2019 [id number] ROXI WINKLER JR PATIENT [employer] [facility] (WNR) MEDICARE ADVANTAGE [facility] (WNR) Sep 03, 2019 [id number] ROXI WINKLERA MCR (WNR) MEDICARE ADVANTAGE HUMAN A INSUR ANCE COM Apr 04, 2019 [id number] ROXI WINKLERA MCR (WNR) MEDICARE ADVANTAGE [facility] (WNR) Apr 03, 2019 [id number] ROXI WINKLERA MCR (WNR) MEDICARE ADVANTAGE MCR (WNR) Apr 03, 2019 [id number] ROXI WINKLERA MCR (WNR) MEDICARE ADVANTAGE MCR (WNR) Apr 03, 2019 [id number] ROXI WINKLER JR PHARMACY PRESCRIPT ION NONE Jun 03, 2017 NONE [id number] ROXI WINKLER MEDICARE PART D (WNR) MEDICARE (M) PART D Sep 03, 2023 PART D [id number] ROXI WINKLER JR PATIENT Selected Encounter This section includes the information on record at [place] for the Encounter. Date/Time Encounter Type Encounter Description Reason Pro vider Source January 12, 2025 08:21 AM Outpatient Encounter ADMIN PAT ACTIVTIES (MASNONCT) IHE Encounter Template Text not used by [place] Plan of Treatment: Future Appointments (+ 6 [...] 11:00 AM AMBULATORY - NONE [place] [facility] Feb 17, 2025 02:00 PM AMBULATORY - SURGERY TAWNY SERRANO [facility] Apr 14, 2025 10:30 AM AMBULATORY - MEDICINE [facility]ATO GALLEGOS-D [facility] Lab Results: +/- 30 days of [...] Type Comment January 15, 2025 10:00 AM [facility] WN DRUG SCREEN EXPANDED IN-HOUSE URINE Specimen [...] January 02, 2025 08:09 AM Reporting Lab: [address] [address] Performing Lab: [address] [address] TETRAHYDROCANNABINOL SCREEN NEG Cuto ff < 50 [...] < 1 January 14, 2025 12:00 PM [facility] CBC/PLT BLOOD Specimen Type: BLOOD No comment entered. Ordering Provider: LAURY KENYON Report Released Date/Time: January 06, 2025 12:45 PM Reporting Lab: [address] [address] Performing Lab: [address] [address] WBC 11.6 10*3/uL H 5.0-10.0 RBC 4.36 10*6/uL L 4.6-6.2 HGB 12.7 g/dL L 14.0-18.0 HCT 39.9 L 42.0-52.0 MCV 91.5 fL 80.0-94.0 MCH 29.1 pg 27.0-31.0 MCHC 31.8 g/dL L 32.0-36.0 PLT 212 10*3/uL 150-450 MPV 9.9 fL 9.0-13.1 RDW 14.6 11.0-16.0 NRBC 0.0 0.0-0.0 January 14, 2025 12:00 PM [facility] PANEL 1 PLASMA Specimen Type: PLASM A Comment: CRITICAL CALLED TO & READ BACK BY: LAURY KENYON 01/14/25@4682 [facility] Estimated Glomerular Filtration Rate (eGFR) calculated [...] January 06, 2025 03:36 PM Reporting Lab: [address] [address] Performing Lab: [address] [address] CREATININE 0.97 mg/dL 0.72-1.25 UREA NITROGEN 15 mg/dL 9-25 GLUCOSE 258 mg/dL H 74-100 SODIUM 138 mmol/L 136-145 POTASSIUM 3.6 mmol/L 3.5-5.1 CHLORIDE 87 mmol/L L 98-107 CO2 46 mmol/L HH 22-29 CALCIUM 8.8 mg/dL 8.4-10.2 ANION GAP 5 meq/L 3-19 eGFR (CKD-EPI) 84 January 14, 2025 12:00 PM [facility] GLYCOHEMOGLOBIN BLOOD Specimen Type: BLOOD Comment: Prediabetes: 5.7%-6.4% Diabetes: >= 6.5% [facility] guidelines for A1c interpretation: Glycemic control targets are based on Shared Decision Making between clinicians and patients. Criteria used to establish an A1c target recommendation can be found at https://www.nv.gov/qualityandpatientsafety/ and include the use of result accuracy [...] 8.73 and 9.27. Ref: https://ngsp.org/CAPdata.asp. The in-house [employer]-Genelux D-100 analyzer has a historical CV <= 2%. Contact the laboratory for further performance characteristics of this assay. Ordering Provider: LAURY KENYON Report Released Date/Time: January 06, 2025 03:36 PM Reporting Lab: [address] [address] Performing Lab: [facility] [address] [facility] [address] GLYCOHEMOGLOBIN 7.2 H 4.4-5.6 Social History: Smoking [...] 05, 2016 01:12 AM NON-TOBACCO USE INPATIENT [facility] Tobacco Use History This section includes a history of the smoking, or tobacco-related health factors, that were collected on or before the date of the Encounter. The data comes from the [place] facility where the Encounter took place. Date/Time Smoking Status/Tobacco Use Comment F acility Nov 24, 2015 04:48 PM NON-TOBACCO USE INPATIENT [facility] Oct 01, 2014 07:15 PM NON-TOBACCO USE INPATIENT [facility] Apr 10, 2005 01:20 PM HF V9 LIFETIME NON-SMOKER [facility] Nov 24, 2003 03:11 PM HF V9 LIFETIME NON-SMOKER [facility] Oct 07, 2002 02:26 PM HF V9 LIFETIME NON-SMOKER [facility] Advance Directives: All historical and current Section Date Range: From patient's date of to the date document was created. This section includes ALL of a patient's completed or amended [place] Advance and Rescinded Directives. The entries below indicate that a directive exists for the patient, but an actual copy is not included with this document. The data comes from all [facility]. Date Advance Directives Provider Source Sep 25, 2024 ADVANCE DIRECTIVE DISCUSSION ANTHONY IRVING [facility] Radiology Reports: +/- 30 days of [...] the Encounter. The data comes from all [place] treatment facilities. Date/Time Radiology Report Provider Source January 30, 2025 11:14 AM SHOULDER-LEFT 2 OR MORE VIEWS: ROXI WINKLER [facility] [id number] -1955 M Exm Date: JANUARY 30, 2025@11:14 Req Phys: LAURY KENYON Jasmin Loc: [place] [facility] RN HM VST (Req'g Loc) Img Loc: [facility] RADIOLOGY Service: [place] [address] (Case [id number] COMPLETE)SHOULDER-LEFT 2 OR MORE VIEWS (RAD Detailed) CPT:40783 Reason for Study: pain Clinical History: Report Status: Verified Date Reported: JANUARY 30, 2025 Date Verified: JANUARY 30, 2025 Arborist Representative E-Sig: Report: EXAMINATION: LEFT SHOULDER 2 VIEWS [...] Interpreting Staff: DUSTY SCOTT, Radiologist Verified by hay chopper for DUSTY SCOTT /DUSTY GONZALEZ-D [facility] January 30, 2025 10:57 AM U/S ABDOMEN LTD: ROXI WINKLER [facility] [id number] -1955 M Exm Date: JANUARY 30, 2025@10:57 Req Phys: LAURY KENYON Pat Loc: [place] [facility] SMASH HAND PHONE (Req'g Loc) Img Loc: ULTRASOUND Service: [place] [address] (Case [id number] COMPLETE)U/S ABDOMEN LTD ([place] Detailed) CPT:95320 Reason for Study: bilateral abdominal hematoma increasing in size Clinical History: Report Status: Verified Date Reported: JANUARY 30, 2025 Date Verified: JANUARY 30, 2025 Arborist Representative E-Sig: Report: EXAMINATION: ULTRASOUND THE ABDOMEN LIMITED [...] Interpreting Staff: DUSTY SCOTT, Radiologist Verified by hay chopper for DUSTY SCOTT /DUSTY GONZALEZ-D [facility] Dec 23, 2024 12:59 PM SEGMENTAL PRESSURE S, LOWER EXT(ROCK) UNILAT: ROXI WINKLER [facility] [id number] -1955 M Exm Date: DEC 23, 2024@12:59 Req Phys: MARCUS MONTELONGO Loc: [place] POD/PROCEDURE/ATT1/LD (Req Img Loc: [place] [facility] [place] Service: Unknown (Case [id number] COMPLETE) SEGMENTAL PRESSURES, LOWER EXT(AB(VAS Detailed) CPT:71220 Reason for Study: SEE CLINICAL HISTORY Clinical History: ROCK's/Segs Indications: Diminished pulses Report Status: Verified Date Reported: DEC 24, 2024 Date Verified: DEC 24, 2024 Arborist Representative E-Sig: Report: SEGMENTAL PRESSURES AND ANKLE-BRACHIAL INDEX [...] Staff: TARYN TOMAS, ATTENDING PHYSICIAN Verified by hay chopper for TARYN TOMAS /TARYN TELLES [facility] Encounter Notes: All associated encounter notes This section contains the clinical notes associated to the Encounter. Date/Time Encounter Note(s) Provider Source January 12, 2025 08:22 AM LETTERS: LOCAL TITLE: SPECIALTY CONTACT LETTER STANDARD TITLE: LETTERS DATE OF NOTE: JANUARY 12, 2025@08:22 ENTRY DATE: JANUARY 12, 2025@08:22:12 AUTHOR: CAROLYN KENYON EXP COSIGNER: URGENCY: STATUS: COMPLETED [facility] [address] [place] [address] ROXI WINKLER [address] [address] JANUARY 12, 2025 Dear ROXI WINKLER JR, We have been unable to contact you by telephone to schedule an appointment in our Radiology clinic. Your health and well-being are important to us. Please call us at or . Select Option #2 and then #3. We look forward to hearing from you soon. Sincerely yours, Radiology [facility] January 12, 2025 08:21 AM ADMINISTRATIVE NOT E: LOCAL TITLE: CLERICAL/ADMIN NOTE STANDARD TITLE: ADMINISTRATIVE NOTE DATE OF NOTE: JANUARY 12, 2025@08:21 ENTRY DATE: JANUARY 12, 2025@08:21:45 AUTHOR: CAROLYN KENYON EXP COSIGNER: URGENCY: STATUS: COMPLETED CLERICAL/ADMIN NOTE Has ADDENDA Attempted to contact to schedule *URGENT* U/S ABD COMPLETE PER 01/09/25 DD, left HIPAA compliant VM. LOC mailed. If [place] fails to respond by 01/27/25, will notify the requesting provider. ORDER PLACED ON HOLD PER SOP GUIDELINES. /angie/ Carolyn Kenyon Advanced Nurse Quality Signed: 01/12/2025 08:22 01/12/2025 ADDENDUM STATUS: COMPLETED [place]'s daughter returning [facility], transferred to [facility] /angie/ Ute Giang AMSA Signed: 01/12/2025 08:58 CAROLYN KENYON-[facility]
--- OUTSIDE RECORDS SUMMARY | 2025-01-12 05:03 | XMS_ITS | Encounter Summary ---
Author Name [facility] [place] [place] Organization [facility] [place] Address [address] [place] [address] Care Team Providers Care Refinery Operator Assistant Name Role Phone LAURY KENYON Primary [...] ON [employer] Jun 03, 2017 [id number] ROXI WINKLER PATIENT [employer]MANA [facility] (WNR) MEDICARE ADVANTAGE [facility] (WNR) Sep 03, 2019 [id number] ROXI WINKLER JR PATIENT [employer] [facility] (WNR) MEDICARE ADVANTAGE [facility] (WNR) Sep 03, 2019 [id number] [phone] ROXI WINKLERA MCR (WNR) MEDICARE ADVANTAGE HUMAN A INSUR ANCE COM Apr 04, 2019 [id number] ROXI WINKLERA MCR (WNR) MEDICARE ADVANTAGE [facility] (WNR) Apr 03, 2019 [id number] ROXI WINKLERA MCR (WNR) MEDICARE ADVANTAGE MCR (WNR) Apr 03, 2019 [id number] ROXI WINKLERA MCR (WNR) MEDICARE ADVANTAGE MCR (WNR) Apr 03, 2019 [id number] ROXI WINKLER JR PHARMACY PRESCRIPT ION NONE Jun 03, 2017 NONE [id number] ROXI WINKLER MEDICARE PART D (WNR) MEDICARE (M) PART D Sep 03, 2023 PART D [id number] ROXI WINKLER JR PATIENT Selected Encounter This section includes the information on record at [place] for the Encounter. Date/Time Encounter Type Encounter Description Reason Pro vider Source January 12, 2025 09:03 AM Outpatient Encounter ADMIN PAT ACTIVTIES (MASNONCT) IHE Encounter Template Text not used by [place] Plan of Treatment: Future Appointments (+ 6 months) and Future Tests (+/- 45 days) The Plan of Treatment section includes future care activities for the patient from all [place] treatmentfacilities. This section includes future appointments and future orders which are active, pending or scheduled. Future Appointments This section includes appointments that were scheduled to occur 6 months from the date of the Encounter, up to a maximum of 20 appointments. The data comes from all [place] treatment facilities. Appointment Date/Time Appointment Type Appointme nt Facility Name January 30, 2025 11:00 AM AMBULATORY - NONE [place] [facility] Feb 17, 2025 02:00 PM AMBULATORY - SURGERY TAWNY SERRANO [facility] Apr 14, 2025 10:30 AM AMBULATORY - MEDICINE [facility]O GALLEGOS-D [facility] Lab Results: +/- 30 days of the encounter This section includes the Chemistry and Hematology Lab Results on record with [place] for the patient. Radiology Reports and Pathology Reports are provided separately, in subsequent sections. Lab Results This section contains the Chemistry/Hematology Results that were resulted 30 days before or 30 daysafter the date of the Encounter. Date/Time Source Result Type Result - Unit Interpretation Reference Range Specimen Type Comment January 15, 2025 10:00 AM [facility] WN DRUG SCREEN EXPANDED IN-HOUSE URINE [...] January 02, 2025 08:09 AM Reporting Lab: [address] [address] Performing Lab: [address] [address] TETRAHYDROCANNABINOL SCREEN NEG Cuto ff < 50 [...] < 1 January 14, 2025 12:00 PM [facility] CBC/PLT BLOOD Specimen Type: BLOOD No comment entered. Ordering Provider: LAURY KENYON Report Released Date/Time: January 06, 2025 12:45 PM Reporting Lab: [address] [address] Performing Lab: [address] [address] WBC 11.6 10*3/uL H 5.0-10.0 RBC 4.36 10*6/uL L 4.6-6.2 HGB 12.7 g/dL L 14.0-18.0 HCT 39.9 L 42.0-52.0 MCV 91.5 fL 80.0-94.0 MCH 29.1 pg 27.0-31.0 MCHC 31.8 g/dL L 32.0-36.0 PLT 212 10*3/uL 150-450 MPV 9.9 fL 9.0-13.1 RDW 14.6 11.0-16.0 NRBC 0.0 0.0-0.0 January 14, 2025 12:00 PM [facility] GLYCOHEMOGLOBIN BLOOD Specimen Type: BLOOD Comment: Prediabetes: 5.7%-6.4% Diabetes: >= 6.5% [facility] guidelines for A1c interpretation: Glycemic control targets are based on Shared Decision Making between clinicians and patients. Criteria used to establish an A1c target recommendation can be found at https://www.sc.gov/qualityandpatientsafety/ and include the use of result accuracy [...] 8.73 and 9.27. Ref: https://ngsp.org/CAPdata.asp. The in-house Gleam-Cloudant D-100 analyzer has a historical CV <= 2%. Contact the laboratory for further performance characteristics of this assay. Ordering Provider: LAURY KENYON Report Released Date/Time: January 06, 2025 03:36 PM Reporting Lab: [address] [address] Performing Lab: [address] [address] GLYCOHEMOGLOBIN 7.2 H 4.4-5.6 January 14, 2025 12:00 PM [facility] PANEL 1 PLASMA Specimen Type: PLASM A Comment: CRITICAL CALLED TO & READ BACK BY: LAURY KENYON 01/14/25@154[facility] Estimated Glomerular Filtration Rate (eGFR) [...] January 06, 2025 03:36 PM Reporting Lab: [address] [address] Performing Lab: [address] [address] CREATININE 0.97 mg/dL 0.72-1.25 UREA NITROGEN 15 mg/dL 9-25 GLUCOSE 258 mg/dL H 74-100 SODIUM 138 mmol/L 136-145 POTASSIUM 3.6 mmol/L 3.5-5.1 CHLORIDE 87 mmol/L L 98-107 CO2 46 mmol/L HH 22-29 CALCIUM 8.8 mg/dL 8.4-10.2 ANION GAP 5 meq/L 3-19 eGFR (CKD-EPI) 84 Social History: Smoking Status (Most current) and Tobacco Use (All prior to encounter date) This section includes the most current, and the historical, smoking and tobacco- related health factors from the [place] facility where the Encounter took place. Current Smoking Status This section includes the most current smoking, or tobacco-related health factor, from the [place] facility where the Encounter took place. Date/Time Current Smoking Status Comment Facil ity May 05, 2016 01:12 AM NON-TOBACCO USE INPATIENT [facility] Tobacco Use History This section includes a history of the smoking, or tobacco-related health factors, that were collected on or before the date of the Encounter. The data comes from the [place] facility where the Encounter took place. Date/Time Smoking Status/Tobacco Use Comment F acility Nov 24, 2015 04:48 PM NON-TOBACCO USE INPATIENT [facility] Oct 01, 2014 07:15 PM NON-TOBACCO USE INPATIENT [facility] Apr 10, 2005 01:20 PM HF V9 LIFETIME NON-SMOKER [facility] Nov 24, 2003 03:11 PM HF V9 LIFETIME NON-SMOKER [facility] Oct 07, 2002 02:26 PM HF V9 LIFETIME NON-SMOKER [facility] Advance Directives: All historical and current Section Date Range: From patient's date of to the date document was created. This section includes ALL of a patient's completed or amended [place] Advance and Rescinded Directives. The entries below indicate that a directive exists for the patient, but an actual copy is not included with this document. The data comes from all [place] facilities. Date Advance Directives Provider Source Sep 25, 2024 ADVANCE DIRECTIVE DISCUSSION ANTHONY IRVING [facility] Radiology Reports: +/- 30 days of [...] the Encounter. The data comes from all [place] treatment facilities. Date/Time Radiology Report Provider Source January 30, 2025 11:14 AM SHOULDER-LEFT 2 OR MORE VIEWS: ROXI WINKLER [facility] [id number] -1955 M Exm Date: JANUARY 30, 2025@11:14 Req Phys: LAURY KENYON Jasmin Loc: [facility] RN HM VST (Req'g Loc) Img Loc: [facility] RADIOLOGY Service: [place] [address] (Case [id number] COMPLETE)SHOULDER-LEFT 2 OR MORE VIEWS (RAD Detailed) CPT:38538 Reason for Study: pain Clinical History: Report Status: Verified Date Reported: JANUARY 30, 2025 Date Verified: JANUARY 30, 2025 Weed Burner E-Sig: Report: EXAMINATION: LEFT SHOULDER 2 VIEWS [...] Interpreting Staff: DUSTY SCOTT, Radiologist Verified by segmental paving supervisor for DUSTY SCOTT /DUSTY GONZALEZ-D [facility] January 30, 2025 10:57 AM U/S ABDOMEN LTD: ROXI WINKLER [facility] [id number] -1955 M Exm Date: JANUARY 30, 2025@10:57 Req Phys: LAURY KENYON Pat Loc: [facility] PRINT DEVELOPER PHONE (Req'g Loc) Img Loc: ULTRASOUND Service: [place] [address] (Case [id number] COMPLETE)U/S ABDOMEN LTD (US Detailed) CPT:24583 Reason for Study: bilateral abdominal hematoma increasing in size Clinical History: Report Status: Verified Date Reported: JANUARY 30, 2025 Date Verified: JANUARY 30, 2025 Weed Burner E-Sig: Report: EXAMINATION: ULTRASOUND THE ABDOMEN LIMITED [...] Interpreting Staff: DUSTY SCOTT, Radiologist Verified by segmental paving supervisor for DUSTY SCOTT /DUSTY GONZALEZ-D [facility] Dec 23, 2024 12:59 PM SEGMENTAL PRESSURE S, LOWER EXT(ROCK) UNILAT: ROXI WINKLER [facility] [id number] -1955 M Exm Date: DEC 23, 2024@12:59 Req Phys: MARCUS MONTELONGO Loc: [facility] POD/PROCEDURE/ATT1/LD (Req Img Loc: [facility] [place] Service: Unknown (Case [id number] COMPLETE) SEGMENTAL PRESSURES, LOWER EXT(AB(VAS Detailed) CPT:61421 Reason for Study: SEE CLINICAL HISTORY Clinical History: ROCK's/Segs Indications: Diminished pulses Report Status: Verified Date Reported: DEC 24, 2024 Date Verified: DEC 24, 2024 Weed Burner E-Sig: Report: SEGMENTAL PRESSURES AND ANKLE-BRACHIAL INDEX [...] Staff: TARYN TOMAS, ATTENDING PHYSICIAN Verified by segmental paving supervisor for TARYN TOMAS /TARYN TELLES [facility] Encounter Notes: All associated encounter notes This section contains the clinical notes associated to the Encounter. Date/Time Encounter Note(s) Provider Source January 12, 2025 09:03 AM ADMINISTRATIVE NOT E: LOCAL TITLE: CLERICAL/ADMIN NOTE STANDARD TITLE: ADMINISTRATIVE NOTE DATE OF NOTE: JANUARY 12, 2025@09:03 ENTRY DATE: JANUARY 12, 2025@09:03:54 AUTHOR: ROMIE FELIX COSIGNER: URGENCY: STATUS: COMPLETED CLERICAL/ADMIN NOTE Has ADDENDA u/s abd 0509dd sched w/pt pid 0519 gave pt fasting info [facility] Nc 01/30/2025@11:00 Non-count /angie/ ROXANNE FELIX ADVANCED MSA Signed: 01/12/2025 09:04 01/12/2025 ADDENDUM STATUS: COMPLETED In chart to review radiology letter. /angie/ NAVIN GARCIA Controller Operations And Hr Manager Signed: 01/12/2025 09:35 [facility]
--- OUTSIDE RECORDS SUMMARY | 2025-01-12 06:19 | XMS_ITS | Encounter Summary ---
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 [employer] Name Role Phone LAURY KENYON Primary Care [...] ON [employer] Jun 03, 2017 [id number] ROXI WINKLER PATIENT [employer] [facility] (WNR) MEDICARE ADVANTAGE [facility] (WNR) Sep 03, 2019 [id number] ROXI WINKLER JR PATIENT [employer] [facility] (WNR) MEDICARE ADVANTAGE [facility] (WNR) Sep 03, 2019 [id number] ROXI WINKLERA MCR (WNR) MEDICARE ADVANTAGE HUMAN A INSUR ANCE COM Apr 04, 2019 [id number] ROXI WINKLERA MCR (WNR) MEDICARE ADVANTAGE [facility] (WNR) Apr 03, 2019 [id number] ROXI WINKLERA MCR (WNR) MEDICARE ADVANTAGE MCR (WNR) Apr 03, 2019 [id number] ROXI WINKLERA MCR (WNR) MEDICARE ADVANTAGE MCR (WNR) Apr 03, 2019 [id number] ROXI WINKLER JR PHARMACY PRESCRIPT ION NONE Jun 03, 2017 NONE [id number] ROXI WINKLER MEDICARE PART D (WNR) MEDICARE (M) PART D Sep 03, 2023 PART D [id number] [phone] ROXI WINKLER JR PATIENT Selected Encounter This section includes the information on record at [place] for the Encounter. Date/Time Encounter Type Encounter Description Reason Pro vider Source January 12, 2025 10:19 AM Outpatient Encounter ADMIN PAT ACTIVTIES (MASNONCT) [...] 11:00 AM AM[facility]ULATORY - NONE [place] [facility] Feb 17, 2025 02:00 PM AMBULATORY - SURGERY TAWNY SERRANO [facility] Apr 14, 2025 10:30 AM AMBULATORY - MEDICINE [facility]ATO GALLEGOS-D [facility] Lab Results: +/- 30 days of the encounter This section includes the Chemistry and Hematology Lab Results on record with [place] for the patient. Radiology Reports and Pathology Reports are provided separately, in subsequent sections. Lab Results This section contains the Chemistry/Hematology Results that were resulted 30 days before or 30 daysafter the date of the Encounter. Date/Time Source Result Type Result - Unit Interpretation Reference Range Specimen Type Comment January 15, 2025 10:00 AM [facility] WN DRUG SCREEN EXPANDED IN-HOUSE URINE [...] January 02, 2025 08:09 AM Reporting Lab: [address] [address] Performing Lab: [address] [address] TETRAHYDROCANNABINOL SCREEN NEG Cuto ff < 50 [...] < 1 January 14, 2025 12:00 PM [facility] CBC/PLT BLOOD Specimen Type: BLOOD No comment entered. Ordering Provider: LAURY KENYON Report Released Date/Time: January 06, 2025 12:45 PM Reporting Lab: [address] [address] Performing Lab: [address] [address] WBC 11.6 10*3/uL H 5.0-10.0 RBC 4.36 10*6/uL L 4.6-6.2 HGB 12.7 g/dL L 14.0-18.0 HCT 39.9 L 42.0-52.0 MCV 91.5 fL 80.0-94.0 MCH 29.1 pg 27.0-31.0 MCHC 31.8 g/dL L 32.0-36.0 PLT 212 10*3/uL 150-450 MPV 9.9 fL 9.0-13.1 RDW 14.6 11.0-16.0 NRBC 0.0 0.0-0.0 January 14, 2025 12:00 PM [facility] GLYCOHEMOGLOBIN BLOOD Specimen Type: BLOOD Comment: Prediabetes: 5.7%-6.4% Diabetes: >= 6.5% [facility] guidelines for A1c interpretation: Glycemic control targets are based on Shared Decision Making between clinicians and patients. Criteria used to establish an A1c target recommendation can be found at https://www.wi.gov/qualityandpatientsafety/ and include the use of result accuracy [...] 8.73 and 9.27. Ref: https://ngsp.org/CAPdata.asp. The in-house ZillionTV-Dely D-100 analyzer has a historical CV <= 2%. Contact the laboratory for further performance characteristics of this assay. Ordering Provider: LAURY KENYON Report Released Date/Time: January 06, 2025 03:36 PM Reporting Lab: [address] [address] Performing Lab: [address] [address] GLYCOHEMOGLOBIN 7.2 H 4.4-5.6 January 14, 2025 12:00 PM [facility] PANEL 1 PLASMA Specimen Type: PLASM A Comment: CRITICAL CALLED TO & READ BACK BY: LAURY KENYON 01/14/25@154[facility] Estimated Glomerular Filtration Rate (eGFR) calculated using [...] January 06, 2025 03:36 PM Reporting Lab: [address] [address] Performing Lab: [address] [address] CREATININE 0.97 mg/dL 0.72-1.25 UREA NITROGEN 15 [...] 05, 2016 01:12 AM NON-TOBACCO USE INPATIENT [facility] Tobacco Use History This section includes a history of the smoking, or tobacco-related health factors, that were collected on or before the date of the Encounter. The data comes from the [place] facility where the Encounter took place. Date/Time Smoking Status/Tobacco Use Comment F acility Nov 24, 2015 04:48 PM NON-TOBACCO USE INPATIENT [facility] Oct 01, 2014 07:15 PM NON-TOBACCO USE INPATIENT [facility] Apr 10, 2005 01:20 PM HF V9 LIFETIME NON-SMOKER [facility] Nov 24, 2003 03:11 PM HF V9 LIFETIME NON-SMOKER [facility] Oct 07, 2002 02:26 PM HF V9 LIFETIME NON-SMOKER [facility] Advance Directives: All historical and [...] 25, 2024 ADVANCE DIRECTIVE DISCUSSION ANTHONY IRVING [facility] Radiology Reports: +/- 30 days [...] the Encounter. The data comes from all [place] treatment facilities. Date/Time Radiology Report Provider Source January 30, 2025 11:14 AM SHOULDER-LEFT 2 OR MORE VIEWS: ROXI WINKLER [facility] [id number] -1955 M Exm Date: JANUARY 30, 2025@11:14 Req Phys: LAURY KENYON Jasmin Loc: [facility] RN HM VST (Req'g Loc) Img Loc: [facility] RADIOLOGY Service: [place] [address] (Case [id number] COMPLETE)SHOULDER-LEFT 2 OR MORE VIEWS (RAD Detailed) CPT:89196 Reason for Study: pain Clinical History: Report Status: Verified Date Reported: JANUARY 30, 2025 Date Verified: JANUARY 30, 2025 Meringuer E-Sig: Report: EXAMINATION: LEFT SHOULDER 2 VIEWS [...] Interpreting Staff: DUSTY SCOTT, Radiologist Verified by hand cultivator for DUSTY SCOTT /DUSTY GONZALEZ-D [facility] January 30, 2025 10:57 AM U/S ABDOMEN LTD: ROXI WINKLER [facility] [id number] -1955 M Exm Date: JANUARY 30, 2025@10:57 Req Phys: LAURY KENYON Pat Loc: [facility] PIERCING MACHINE OPERATOR PHONE (Req'g Loc) Img Loc: ULTRASOUND Service: [place] [address] (Case [id number] COMPLETE)U/S ABDOMEN LTD ([place] Detailed) CPT:31161 Reason for Study: bilateral abdominal hematoma increasing in size Clinical History: Report Status: Verified Date Reported: JANUARY 30, 2025 Date Verified: JANUARY 30, 2025 Meringuer E-Sig: Report: EXAMINATION: ULTRASOUND THE ABDOMEN LIMITED [...] Interpreting Staff: DUSTY SCOTT, Radiologist Verified by hand cultivator for DUSTY SCOTT /DUSTY GONZALEZ-D [facility] Dec 23, 2024 12:59 PM SEGMENTAL PRESSURE S, LOWER EXT(ROCK) UNILAT: ROXI WINKLER [facility] [id number] -1955 M Exm Date: DEC 23, 2024@12:59 Req Phys: MARCUS MONTELONGO Loc: [facility] POD/PROCEDURE/ATT1/LD (Req Img Loc: [facility] [place] Service: Unknown (Case [id number] COMPLETE) SEGMENTAL PRESSURES, LOWER EXT(AB(VAS Detailed) CPT:61852 Reason for Study: SEE CLINICAL HISTORY Clinical History: ROCK's/Segs Indications: Diminished pulses Report Status: Verified Date Reported: DEC 24, 2024 Date Verified: DEC 24, 2024 Meringuer E-Sig: Report: SEGMENTAL PRESSURES AND ANKLE-BRACHIAL INDEX [...] Staff: TARYN TOMAS, ATTENDING PHYSICIAN Verified by hand cultivator for TARYN TOMAS /TARYN TELLES [facility] Encounter Notes: All associated encounter notes This section contains the clinical notes associated to the Encounter. Date/Time Encounter Note(s) Provider Source January 12, 2025 10:19 AM ADMINISTRATIVE NOT E: LOCAL TITLE: CLERICAL/ADMIN NOTE STANDARD TITLE: ADMINISTRATIVE NOTE DATE OF NOTE: JANUARY 12, 2025@10:19 ENTRY DATE: JANUARY 12, 2025@10:19:55 AUTHOR: ANNE MONTAÑO EXP COSIGNER: URGENCY: STATUS: COMPLETED [facility]. /angie/ Anne Montaño LPN LPN Signed: 01/12/2025 10:20 Receipt Acknowledged By: 01/12/2025 10:27 /es/ NISHA RICE Advanced Print Controller ANNE MONTAÑO-[facility]
--- OUTSIDE RECORDS SUMMARY | 2025-01-13 10:46 | XMS_ITS ---
Author Name [facility] [facility] [place] [facility] [place] Address [address] [place] [address] Care Team Providers Care Vp Publisher Development Name Role Phone LAURY KENYON Primary Care [...] PREFERRED PROVIDER ORGANIZAT AXEL (PPO) ARELIS ON [employer] LADY VARELA Jun 03, 2017 [id number] ROXI WINKLER PATIENT [employer] MCR (WNR) MEDICARE ADVANTAGE [facility] (WNR) Sep 03, 2019 [id number] [phone] ROXI WINKLER JR PATIENT [employer] MCR (WNR) MEDICARE ADVANTAGE MCR (WNR) Sep 03, 2019 [id number] ROXI WINKLER MCR (WNR) MEDICARE ADVANTAGE HUMAN A INSUR ANCE COM Apr 04, 2019 [id number] [phone] ROXI WINKLER MCR (WNR) MEDICARE ADVANTAGE MCR (WNR) Apr 03, 2019 [id number] [phone] ROXI WINKLERA MCR (WNR) MEDICARE ADVANTAGE MCR (WNR) Apr 03, 2019 [id number] [phone] ROXI WINKLER MCR (WNR) MEDICARE ADVANTAGE MCR (WNR) Apr 03, 2019 [id number] ROXI WINKLER JR PHARMACY PRESCRIPT ION NONE Jun 03, 2017 NONE [id number] ROXI WINKLER MEDICARE PART D (WNR) MEDICARE (M) PART D Sep 03, 2023 PART D [id number] [phone] ROXI WINKLER JR PATIENT Selected Encounter This section includes the information on record at [place] for the Encounter. 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 Ordering Provider: LAURY KEYNON Report Released Date/Time: January 02, 2025 08:09 AM Reporting Lab: [address] [address] Performing Lab: [address] [address] TETRAHYDROCANNABINOL SCREEN NEG Cuto ff < 50 [...] 14, 2025 12:00 PM [facility] GLYCOHEMOGLOBIN BLOOD Specimen Type: BLOOD Comment: Prediabetes: 5.7%-6.4% Diabetes: >= 6.5% [facility] guidelines for A1c interpretation: Glycemic control targets are based on Shared Decision Making between clinicians and patients. Criteria used to establish an A1c target recommendation can be found at https://www.ia.gov/qualityandpatientsafety/ and include the use of result accuracy [...] 8.73 and 9.27. Ref: https://ngsp.org/CAPdata.asp. The in-house m2fx D-100 analyzer has a historical CV <= 2%. Contact the laboratory for further performance characteristics of this assay. Ordering Provider: LAURY KENYON Report Released Date/Time: January 06, 2025 03:36 PM Reporting Lab: [place] [id number] Performing Lab: [place] [id number] GLYCOHEMOGLOBIN 7.2 H 4.4-5.6 January 14, 2025 12:00 PM [facility] CBC/PLT BLOOD Specimen Type: BLOOD No comment entered. Ordering Provider: LAURY KENYON Report Released Date/Time: January 06, 2025 12:45 PM Reporting Lab: [address] [address] Performing Lab: [address] [address] WBC 11.6 10*3/uL H 5.0-10.0 RBC 4.36 10*6/uL L 4.6-6.2 HGB 12.7 g/dL L 14.0-18.0 HCT 39.9 L 42.0-52.0 MCV 91.5 fL 80.0-94.0 MCH 29.1 pg 27.0-31.0 MCHC 31.8 g/dL L 32.0-36.0 PLT 212 10*3/uL 150-450 MPV 9.9 fL 9.0-13.1 RDW 14.6 11.0-16.0 NRBC 0.0 0.0-0.0 January 14, 2025 12:00 [facility] PLASMA Specimen Type: PLASM A Comment: CRITICAL CALLED TO & READ BACK BY: LAURY KENYON 01/14/25@5028 [facility] Estimated Glomerular Filtration Rate (eGFR) calculated using [...] January 06, 2025 03:36 PM Reporting Lab: ANIKA [facility] [address] [facility] [address] Performing Lab: [facility] [address] [facility] [address] CREATININE 0.97 mg/dL 0.72-1.25 UREA NITROGEN 15 [...] 05, 2016 01:12 AM NON-TOBACCO USE INPATIENT [facility] Tobacco Use History This section includes a history of the smoking, or tobacco-related health factors, that were collected on or before the date of the Encounter. The data comes from the [place] facility where the Encounter took place. Date/Time Smoking Status/Tobacco Use Comment F acility Nov 24, 2015 04:48 PM NON-TOBACCO USE INPATIENT [facility] Oct 01, 2014 07:15 PM NON-TOBACCO USE INPATIENT [facility] Apr 10, 2005 01:20 PM HF V9 LIFETIME NON-SMOKER [facility] Nov 24, 2003 03:11 PM HF V9 LIFETIME NON-SMOKER [facility] Oct 07, 2002 02:26 PM HF V9 LIFETIME NON-SMOKER [facility] Advance Directives: All historical and [...] 25, 2024 ADVANCE DIRECTIVE DISCUSSION ANTHONY IRVING [facility] Radiology Reports: +/- 30 days [...] SHOULDER-LEFT 2 OR MORE VIEWS: ROXI WINKLER [id number] -1955 M Exm Date: JANUARY 30, 2025@11:14 Req Phys: LAURY KENYON Loc: [place] [facility] RN VST (Req'g Loc) Img Loc: [facility] RADIOLOGY Service: [place] [address] (Case [id number] COMPLETE)SHOULDER-LEFT 2 OR MORE VIEWS (RAD Detailed) CPT:43587 Reason for Study: pain Clinical History: Report Status: Verified Date Reported: JANUARY 30, 2025 Date Verified: JANUARY 30, 2025 Director Embalmer E-Sig: Report: EXAMINATION: LEFT SHOULDER 2 VIEWS [...] NO ALERT REQUIRED Primary Interpreting Staff: DUSTY SCOTT Radiologist Verified by trainman for DUSTY SCOTT /DUSTY GONZALEZGRE[facility] HOSPITALYancy [facility] January 30, 2025 10:57 AM U/S ABDOMEN LTD: ROXI WINKLER [facility] [id number] -1955 M Exm Date: JANUARY 30, 2025@10:57 Req Phys: LAURY KENYON Loc: [place] [facility] SLIP DUMPER PHONE (Req'g Loc) Img Loc: ULTRASOUND Service: [place] [address] (Case [id number] COMPLETE)U/S ABDOMEN LTD ([place] Detailed) CPT:88364 Reason for Study: bilateral abdominal hematoma increasing in size Clinical History: Report Status: Verified Date Reported: JANUARY 30, 2025 Date Verified: JANUARY 30, 2025 Director Embalmer E-Sig: Report: EXAMINATION: ULTRASOUND THE ABDOMEN LIMITED [...] SIGNIFICANT ABNORMALITY, ATTN NEEDED Primary Interpreting Staff: Beatrice BELL Verified by trainman for DUSTY SCOTT /DUSTY GONZALEZYancy [facility] Dec 23, 2024 12:59 PM SEGMENTAL PRESSURE S, LOWER EXT(ROCK) UNILAT: ROXI WINKLER [facility] [id number] -1955 M Exm Date: DEC 23, 2024@12:59 Req Phys: MARCUS MONTELONGO Pat Loc: [place] POD/PROCEDURE/ATT1/LD (Req Img Loc: [place] [facility] [place] Service: Unknown (Case [id number] COMPLETE) SEGMENTAL PRESSURES, LOWER EXT(AB(VAS Detailed) CPT:11055 Reason for Study: SEE CLINICAL HISTORY Clinical History: ROCK's/Segs Indications: Diminished pulses Report Status: Verified Date Reported: DEC 24, 2024 Date Verified: DEC 24, 2024 Director Embalmer E-Sig: Report: SEGMENTAL PRESSURES AND ANKLE-BRACHIAL INDEX [...] Staff: TARYN TOMAS, ATTENDING PHYSICIAN Verified by trainman for TARYN TOMAS /[facility] Encounter Notes: All associated encounter notes This section contains the clinical notes associated to the Encounter. Date/Time Encounter Note(s) Provider Source January 13, 2025 02:46 PM PHARMACY NOTE: LOCAL TITLE: PHARMACOTHERAPY NOTE STANDARD TITLE: PHARMACY NOTE DATE OF NOTE: JANUARY 13, 2025@14:46 ENTRY DATE: JANUARY 13, 2025@14:46:22 AUTHOR: MARI FREEMAN EXP COSIGNER: URGENCY: STATUS: COMPLETED Reviewed current medications for possible med-related cause of recent fall. See [facility] Post Fall Note dated: 01/12/25 Fall date: 12/30/24 Pertinent medical history: pain, COPD, h/o fracture, visual impairment, vit D deficiency, peripheral venous insufficiency Description of fall(s): reported he was coming from the bathroom when his legs became weak and he lost his balance. Active Outpatient Medications (including Supplies): Issue Date Status Last Fill Active Outpatient Medications Refills Expiration 1) ALBUTEROL 90MCG (CFC-F) 200D ORAL INHL Qty: ACTIVE Issue: 06/17/24 3 for 90 days Sig: INHALE 2 PUFFS BY MOUTH Refills: 2 Last : 11/28/24 EVERY 6 HOURS NEEDED FOR SHORTNESS OF Expr : 06/18/25 BREATH 2) BANDAGE,GAUZE 4.5IN X 4.1YD STERILE Qty: 15 ACTIVE Issue: 12/11/24 for 30 days Sig: USE BANDAGE ON AFFECTED Refills: 1 Last : 12/11/24 AREA EVERY OTHER DAY Expr : 12/12/25 Indication: FOR WOUND CARE 3) BIKTARVY 50/200/25 TAB Qty: 90 for 90 days ACTIVE Issue: 10/14/24 Sig: TAKE 1 TABLET BY MOUTH DAILY Refills: 0 Last : 01/02/25 Indication: INFECTION Expr : 10/15/25 4) BUMETANIDE 2MG TAB Qty: 120 for 90 days Sig: ACTIVE Issue: 09/12/24 TAKE ONE TABLET BY MOUTH DAILY FOR FLUID Refills: 2 Last : 01/05/25 (TAKE ADDITIONAL EVENING DOSE FOR 3LB WEIGHT Expr : 09/13/25 GAIN IN 24 HOURS OR 5LB WEIGHT GAIN IN 1 WEEK) 5) CLEANSER,WOUND SKINTEGRITY TOP SPRAY Qty: ACTIVE Issue: 11/28/24 240 for 90 days Sig: SPRAY TO AFFECTED AREA Refills: 1 Last : 11/30/24 NEEDED Expr : 11/29/25 Indication: FOR WOUND CARE 6) DICLOFENAC NA 1% TOP GEL Qty: 200 for 90 ACTIVE Issue: 01/02/25 days Sig: APPLY 2 GRAM STRIP TO AFFECTED Refills: 2 Last : 01/03/25 AREA EVERY 6 HOURS NEEDED Expr : 01/03/26 Indication: FOR PAIN 7) DOCUSATE NA 50MG/SENNOSIDES 8.6MG TAB Qty: ACTIVE Issue: 12/03/24 200 for 90 days Sig: TAKE 1 TABLET BY MOUTH Refills: 2 Last : 12/03/24 TWICE A DAY Expr : 12/04/25 Indication: FOR CONSTIPATION 8) DRESSING,HONEY TOP PASTE Qty: 45 for 30 days ACTIVE Issue: 11/28/24 Sig: APPLY SMALL AMOUNT TO AFFECTED AREA Refills: 1 Last : 11/30/24 DIRECTED Expr : 11/29/25 Indication: FOR WOUND CARE 9) FINASTERIDE 5MG TAB Qty: 90 for 90 days Sig: ACTIVE Issue: 09/08/24 TAKE ONE TABLET BY MOUTH DAILY FOR PROSTATE Refills: 2 Last : 11/28/24 Expr : 09/09/25 10) GABAPENTIN 300MG CAP Qty: 240 for 30 days ACTIVE Issue: 12/02/24 Sig: TAKE TWO CAPSULES BY MOUTH EVERY Refills: 0 Last : 01/22/25 MORNING AND TAKE THREE CAPSULES EVERY Expr : 12/03/25 EVENING AND TAKE THREE CAPSULES AT BEDTIME Indication: FOR NERVE PAIN 11) GAUZE PAD 4IN X 4IN NONSTERILE Qty: 200 for ACTIVE Issue: 11/28/24 90 days Sig: USE GAUZE AFFECTED AREA Refills: 0 Last : 11/30/24 DIRECTED Expr : 02/26/25 Indication: WOUND CARE 12) GLUCOSE SENSOR DEXCOM G7 Qty: 9 for 90 days ACTIVE (S) Issue: 11/21/24 Sig: USE SENSOR DIRECTED NEEDED Refills: 3 Last : 01/29/25 Indication: FOR BLOOD SUGAR MONITORING Expr : 11/22/25 13) INSULIN CONC REG HUM 500 UNT/ML KWIKPEN Qty: ACTIVE Issue: 11/21/24 8 for 90 days Sig: INJECT 60 UNITS UNDER THE Refills: 3 Last : 11/22/24 SKIN EVERY MORNING AND INJECT 50 UNITS EVERY Expr : 11/22/25 EVENING -KEEP REFRIGERATED UNTIL PEN IN USE, ONCE IN USE DISCARD AFTER 28 DAYS Indication: FOR BLOOD SUGAR 14) LIDOCAINE 5% 5IN X 6IN PATCH Qty: 30 for 30 ACTIVE Issue: 03/04/24 days Sig: APPLY 2 PATCHES TO SKIN DAILY Refills: 7 Last : 03/14/25 NEEDED FOR PAIN. (LEAVE ON 12 HOURS, THEN Expr : 03/05/25 REMOVE FOR 12 HOURS) 15) METHOCARBAMOL 750MG TAB Qty: 120 for 30 days ACTIVE Issue: 01/02/25 Sig: TAKE ONE TABLET BY MOUTH EVERY 6 HOURS Refills: 5 Last : 01/03/25 NEEDED FOR MUSCLE SPASM Expr : 01/03/26 16) NEEDLE,PEN 31G,8MM Qty: 200 for 90 days Sig: ACTIVE Issue: 11/21/24 USE NEEDLE NEEDLE,PEN 31G,5/16IN DEVICE Refills: 3 Last : 11/22/24 DIRECTED FOR USE WITH U500 KWICKPEN Expr : 11/22/25 17) OLODATEROL/TIOTROP 2.5MCG/ACTUAT 60D INH ACTIVE Issue: 06/17/24 Qty: 3 for 90 days Sig: INHALE 2 PUFFS BY Refills: 2 Last : 09/07/24 MOUTH EVERY MORNING FOR BREATHING Expr : 06/18/25 18) PANTOPRAZOLE NA 40MG EC TAB Qty: 90 for 90 ACTIVE Issue: 09/01/24 days Sig: TAKE ONE TABLET BY MOUTH DAILY Refills: 3 Last : 09/03/24 TAKE ON AN EMPTY STOMACH. Expr : 09/02/25 Indication: FOR STOMACH 19) PROMOGRAN MIKE 4.34 X 4.34IN #[id number] Qty: ACTIVE Issue: 12/11/24 10 for 30 days Sig: APPLY DRESSING(S) TO Refills: 1 Last : 12/11/24 AFFECTED AREA EVERY OTHER DAY Expr : 12/12/25 20) SITAGLIPTIN (EQV-ZITUVIO) 100MG TAB Qty: 90 ACTIVE Issue: 11/21/24 for 90 days Sig: TAKE ONE TABLET BY MOUTH Refills: 3 Last : 11/28/24 DAILY -REPLACES ALOGLIPTIN. STORE IN Expr : 11/22/25 ORIGINAL CONTAINER. OPENED BOTTLES MUST BE USED WITHIN 3 MONTHS Indication: FOR BLOOD SUGAR 21) TAMSULOSIN HCL 0.4MG CAP Qty: 90 for 90 days ACTIVE Issue: 09/08/24 Sig: TAKE ONE CAPSULE BY MOUTH EVERY EVENING Refills: 2 Last : 12/29/24 FOR PROSTATE Expr : 09/09/25 22) TRAMADOL HCL 50MG TAB Qty: 120 for 30 days ACTIVE Issue: 09/01/24 Sig: TAKE ONE TABLET BY MOUTH EVERY MORNING Refills: 0 Last : 12/12/24 AND TAKE ONE TABLET EVERY EVENING AND TAKE Expr : 03/04/25 TWO TABLETS AT BEDTIME NEEDED (USE SPARINGLY. SUPPLY MUST LAST 30 DAYS. CAUSES IMPAIRMENT, RECOMMEND NOT TO DRIVE ON THIS MEDICATION.) Indication: FOR PAIN 23) VENLAFAXINE HCL 150MG 24HR SA CAP Qty: 90 ACTIVE Issue: 09/12/24 for 90 days Sig: TAKE ONE CAPSULE BY MOUTH Refills: 3 Last : 09/28/24 DAILY Expr : 09/13/25 Indication: FOR CHRONIC PAIN Start Date Active Non-VA Medications Status Stop Date 1) Non-VA ASPIRIN 81MG EC TAB SiMG MOUTH ACTIVE DAILY 2) Non-VA OXYGEN GAS Si LITERS NASAL ACTIVE CANNULA DAILY VITALS AND LABS Most recent BP: 99/58 (01/06/2025 10:29) Pulse: 87 (01/06/2025 10:29) Orthostatics: none found x3m PANEL 1 Arnel. date GLUCOSE BUN CREAT SODIUM K CHLOR CO2 11/21/24 12:38 282 H 15 1.17 133 L 4.1 89 L 38 H 11/15/23 15:21 454 H 14 1.47 H 135 L 4.2 92 L 33 H 03/27/23 10:38 229 H 16 1.16 139 4.4 97 L 38 H Vit D 25-OH: Specimen Collection Date: Oct 17, 2024@15:32 Test name Result units Ref. range Site Code 25-OH VITAMIN D 28.3 ng/mL 20.0 - 50.0 [6033] DXA: DEXA - NONE FOUND - 1Y No BMD found. FRAX score w/o BMD: The ten-year probability of fracture Major osteoporotic 8.7 % Hip Fracture 1.7 % Nonpharmacologic treatment: Calcium intake 3855-4824 mg daily Vitamin D intake 800-1000 units daily (Replete if deficient) Weight-bearing and muscle-strengthening exercises Fall prevention Tobacco cessation Avoid excessive alcohol intake Indications for pharmacologic therapy: Hip or vertebral fracture T score <-2.5 (femoral neck, total hip, or lumbar spine) Men >50 years of age with osteopenia per DXA scan and qualifying FRAX scores 10-year major osteoporosis-related fracture probability >20% 10-year hip fracture probability >3% CBC/PLT, BLOOD - Partial Panel found WBC , BLOOD, 11/15/23@152 10.2 HK/cmm (5.0 - 10.0) RBC, BLOOD, 11/15/23@152 4.90 M/cmm (4.6 - 6.2) HGB, BLOOD, 11/15/23@152 14.1 g/dL (14.0 - 18.0) HCT, BLOOD, 11/15/23@152 44.9 % (42.0 - 52.0) MCV, BLOOD, 11/15/23152 91.6 fL (80.0 - 94.0) MCH, BLOOD, 11/15/23@152 28.8 pg (27.0 - 31.0) MCHC, BLOOD, 11/15/23@152 31.4 Lg/dL (32.0 - 36.0) RDW, BLOOD, 11/15/23@152 14.1 % (11.0 - 16.0) PLT, BLOOD, 11/15/23@152 238 K/cmm (150 - 450) MPV, BLOOD, 11/15/23@152 9.7 fL (9.0 - 13.1) NRBC, BLOOD, 11/15/23@1521 0.0 % (0.0 - 0.0) MEDICATIONS CONTRIBUTING TO FALL RISK Cardiac, antihypertensives, diuretic: bumetanide Antipsychotics, hypnotics: Antidepressant/antihistamine: venlafaxine SA Antianxiety [not buspirone]: Muscle relaxants: methocarbamol Narcotic analgesic: tramadol Anticonvulsant: gabapentin NSAID: Hypoglycemic: insulin conc, sitagliptin OTHER: BIKTARVY 50/200/25 TAB, finasteride, pantoprazole, tamsulosin Medications that increase bleed risk: ASA 81 Assessment: - no new meds that increase fall risk - no orthostatics found x3m - low FRAX score - lost balance Recommendations: - fall was not likely med related - recommend checking orthostatics if able - minimize use of methocarbamol and tramadol Time spent reviewing chart: 15 min PBM PharmD Pharmacotherapy Rem V12: FALLS PREVENTION Medication monitoring, no dosage change required, continue to monitor and assess /angie/ Mari Freeman, Pharm.DBen Clinical Pharmacist - [place] Signed: 01/13/2025 14:58 Receipt Acknowledged By: 01/13/2025 15:04 /es/ SHIMON SINCLAIR RN 01/13/2025 15:26 /es/ LAURY KEYNON APRN [employer] REGISTERED NURSE, MARI ORTEGA-KAREND [facility]
--- OUTSIDE RECORDS SUMMARY | 2025-01-14 07:40 | XMS_ITS | Encounter Summary ---
Author Name [facility] [place] [facility] [place] [place] Address [address] [place] [address] Care Team Providers Care Piece Presser Name Role Phone LAURY KENYON Primary Care [...] PREFERRED PROVIDER ORGANIZAT ION (PPO) ARELIS ON [employer] Jun 03, 2017 [id number] ROXI WINKLER PATIENT [employer] [facility] (WNR) MEDICARE ADVANTAGE [facility] (WN) Sep 03, 2019 [id number] [phone] ROXI WINKLER JR PATIENT [employer] [facility] (WNR) MEDICARE ADVANTAGE [facility] (WN) Sep 03, 2019 [id number] [phone] ROXI WINKLER [employer] [facility] (WNR) MEDICARE ADVANTAGE HUMAN A INSUR ANCE COM Apr 04, 2019 [id number] [phone] ROXI WINKLERA MCR (WNR) MEDICARE ADVANTAGE [facility] (WNR) Apr 03, 2019 [id number] ROXI WINKLERA MCR (WNR) MEDICARE ADVANTAGE MCR (WNR) Apr 03, 2019 [id number] [phone] ROXI WINKLER [employer] [facility] (WNR) MEDICARE ADVANTAGE MCR (WNR) Apr 03, 2019 [id number] ROXI WINKLER JR PHARMACY PRESCRIPT ION NONE Jun 03, 2017 NONE [id number] [phone] ROXI WINKLER MEDICARE PART D (WNR) MEDICARE (M) PART D Sep 03, 2023 PART D [id number] ROXI WINKLER JR PATIENT Selected Encounter This section includes the information on record at [place] for the Encounter. Date/Time Encounter Type Encounter Description Reason Provider Source January 14, 2025 11:40 AM JOE [facility]EN[facility] BLD VENIPUNCTURE [facility] Nursing (RN / LP) ICD-10-CM J44.9 Chronic obstructive pulmonary disease, unspecified ENMA SINCLAIR Adela Encounter Template Text not used by [place] Assessments - Encounter Diagnoses This section includes the primary and secondary diagnoses documented for the Encounter. Date/Time Primary/Secondary Diagnosis Diagnosis Name Provider Source January 14, 2025 03:36 PM PRIMARY Chronic obstructive pulmonary disease, unspecified SHIMON SINCLAIR [facility] January 14, 2025 03:36 PM SECONDARY Chronic pain syndrome SHIMON SINCLAIR [facility] Plan of Treatment: Future Appointments (+ 6 months) and Future Tests (+/- 45 days) The Plan of Treatment section includes future care activities for the patient from all [place] treatmentfacilities. This section includes future appointments and future orders which are active, pending or scheduled. Future Appointments This section includes appointments that were scheduled to occur 6 months from the date of the Encounter, up to a maximum of 20 appointments. The data comes from all [place] treatment facilities. Appointment Date/Time Appointment Type Appointme nt Facility Name January 30, 2025 11:00 AM AMBULATORY - NONE STEPHEN Barnes [facility] Feb 17, 2025 02:00 PM AMBULATORY - SURGERY TAWYN SERRANO [facility] Apr 14, 2025 10:30 AM [facility] Lab Results: +/- 30 days of the encounter This section includes the Chemistry and Hematology Lab Results on record with [place] for the patient. Radiology Reports and Pathology Reports are provided separately, in subsequent sections. Lab Results This section contains the Chemistry/Hematology Results that were resulted 30 days before or 30 daysafter the date of the Encounter. Date/Time Source Result Type Result - Unit Interpretation Reference Range Specimen Type Comment January 15, 2025 10:00 AM [facility] WN DRUG SCREEN EXPANDED [...] January 02, 2025 08:09 AM Reporting Lab: [address] [address] Performing Lab: [address] [address] TETRAHYDROCANNABINOL SCREEN NEG Cuto ff < 50 [...] < 1 January 14, 2025 12:00 PM [facility] CBC/PLT BLOOD Specimen Type: BLOOD No comment entered. Ordering Provider: LAURY KENYON Report Released Date/Time: January 06, 2025 12:45 PM Reporting Lab: [facility] [address] [address] Performing Lab: [place] [address] [facility] [address] WBC 11.6 10*3/uL H 5.0-10.0 RBC 4.36 10*6/uL L 4.6-6.2 HGB 12.7 g/dL L 14.0-18.0 HCT 39.9 L 42.0-52.0 MCV 91.5 fL 80.0-94.0 MCH 29.1 pg 27.0-31.0 MCHC 31.8 g/dL L 32.0-36.0 PLT 212 10*3/uL 150-450 MPV 9.9 fL 9.0-13.1 RDW 14.6 11.0-16.0 NRBC 0.0 0.0-0.0 January 14, 2025 12:00 PM [facility] PANEL 1 PLASMA Specimen Type: PLASM A Comment: CRITICAL CALLED TO & READ BACK BY: LAURY KENYON 01/14/25@1541 [facility] Estimated Glomerular Filtration Rate (eGFR) calculated [...] January 06, 2025 03:36 PM Reporting Lab: [address] [address] Performing Lab: [address] [address] CREATININE 0.97 mg/dL 0.72-1.25 UREA NITROGEN 15 mg/dL 9-25 GLUCOSE 258 mg/dL H 74-100 SODIUM 138 mmol/L 136-145 POTASSIUM 3.6 mmol/L 3.5-5.1 CHLORIDE 87 mmol/L L 98-107 CO2 46 mmol/L HH 22-29 CALCIUM 8.8 mg/dL 8.4-10.2 ANION GAP 5 meq/L 3-19 eGFR (CKD-EPI) 84 January 14, 2025 12:00 PM [facility] GLYCOHEMOGLOBIN BLOOD Specimen Type: BLOOD Comment: Prediabetes: 5.7%-6.4% Diabetes: >= 6.5% [facility] guidelines for A1c interpretation: Glycemic control targets are based on Shared Decision Making between clinicians and patients. Criteria used to establish an A1c target recommendation can be found at https://www.pa.gov/qualityandpatientsafety/ and include the use of result accuracy [...] 8.73 and 9.27. Ref: https://ngsp.org/CAPdata.asp. The in-house GCD Systeme-My Perfect Gig D-100 analyzer has a historical CV <= 2%. Contact the laboratory for further performance characteristics of this assay. Ordering Provider: LAURY KENYON Report Released Date/Time: January 06, 2025 03:36 PM Reporting Lab: [facility] [address] [address] Performing Lab: [facility] [address] [address] GLYCOHEMOGLOBIN 7.2 H 4.4-5.6 Social History: Smoking Status (Most current) and Tobacco Use (All prior to encounter date) This section includes the most current, and the historical, smoking and tobacco- related health factors from the [place] facility where the Encounter took place. Current Smoking Status This section includes the most current smoking, or tobacco-related health factor, from the [place] facility where the Encounter took place. Date/Time Current Smoking Status Comment Anita [email or web address] May 05, 2016 01:12 AM NON-TOBACCO USE INPATIENT [facility] Tobacco Use History This section includes a history of the smoking, or tobacco-related health factors, that were collected on or before the date of the Encounter. The data comes from the [place] facility where the Encounter took place. Date/Time [...] ALL of a patient's completed or amended [place] Advance and Rescinded Directives. The entries below indicate that a directive exists for the patient, but an actual copy is not included with this document. The data comes from all [place] facilities. Date Advance Directives Provider Source Sep 25, 2024 ADVANCE DIRECTIVE DISCUSSION ANTHONY [facility] Radiology Reports: +/- 30 days of [...] the Encounter. The data comes from all [place] treatment facilities. Date/Time Radiology Report Provider Source January 30, 2025 11:14 AM SHOULDER-LEFT 2 OR MORE VIEWS: ROXI WINKLER [facility] [id number] -[id number] M Exm Date: JANUARY 30, 2025@11:14 Req Phys: LAURY KENYON Loc: [place] [facility] RN HM VST (Req'g Loc) Img Loc: CDD RADIOLOGY Service: [place] [address] (Case [id number] COMPLETE)SHOULDER-LEFT 2 OR MORE VIEWS (RAD Detailed) CPT:97401 Reason for Study: pain Clinical History: Report Status: Verified Date Reported: JANUARY 30, 2025 Date Verified: JANUARY 30, 2025 Assembler Camper E-Sig: Report: EXAMINATION: LEFT SHOULDER 2 VIEWS [...] Interpreting Staff: DUSTY SCOTT Radiologist Verified by manager of purchasing for DUSTY SCOTT /DUSTY GONZALEZ [facility] January 30, 2025 10:57 AM U/S ABDOMEN LTD: ROXI WINKLER [facility] [id number] -[id number] M Ex Date: JANUARY 30, 2025@10:57 Req Phys: LAURY KENYON Pat Loc: [place] [facility] MANAGER CLUB PHONE (Req'g Loc) Img Loc: ULTRASOUND Service: [place] [address] (Case [id number] COMPLETE)U/S ABDOMEN LTD (US Detailed) CPT:44398 Reason for Study: bilateral abdominal hematoma increasing in size Clinical History: Report Status: Verified Date Reported: JANUARY 30, 2025 Date Verified: JANUARY 30, 2025 Assembler Camper E-Sig: Report: EXAMINATION: ULTRASOUND THE ABDOMEN LIMITED [...] ABNORMALITY, ATTN NEEDED Primary Interpreting Staff: DUSTY SCOTT Radiologist Verified by manager of purchasing for DUSTY SCOTT /DUSTY GONZALEZ [facility] Dec 23, 2024 12:59 PM SEGMENTAL PRESSURE S, LOWER EXT(ROCK) UNILAT: ROXI WINKLER [id number] -1955 M Exm Date: DEC 23, 2024@12:59 Req Phys: MARCUS MONTELONGO Loc: [place] POD/PROCEDURE/ATT1/LD (Req Img Loc: [place] [facility] [place] Service: Unknown (Case [id number] COMPLETE) SEGMENTAL PRESSURES, LOWER EXT(AB(VAS Detailed) CPT:66225 Reason for Study: SEE CLINICAL HISTORY Clinical History: ROCK's/Segs Indications: Diminished pulses Report Status: Verified Date Reported: DEC 24, 2024 Date Verified: DEC 24, 2024 Assembler Camper E-Sig: Report: SEGMENTAL PRESSURES AND ANKLE-BRACHIAL INDEX [...] TARYN TOMAS, ATTENDING PHYSICIAN Verified by manager of purchasing for TARYN TOMAS /TARYN TELLES [facility] Encounter Notes: All associated encounter notes This section contains the clinical notes associated to the Encounter. Date/Time Encounter Note(s) Provider Source January 30, 2025 01:13 PM LETTERS: LOCAL TITLE: [facility] LETTER TEST RESULTS STANDARD TITLE: LETTERS DATE OF NOTE: JANUARY 30, 2025@13:13 ENTRY DATE: JANUARY 30, 2025@13:14:16 AUTHOR: LAURY KENYON COSIGNER: URGENCY: STATUS: COMPLETED [facility] [address] [place] [address] Mr. ROXI WINKLER [address] [address] January Dear Mr. ROXI WINKLER Your [facility] Provider has reviewed your recent tests, and wanted us to let you know that everything looked stable. A copy of your test results is attached below. You may notice that some tests are listed as outside normal limits. Your [facility] Provider has reviewed these results, and has determined these are not considered to be significant. Therefore, they do not require further investigation or treatment. There are no recommended changes in your medications or treatment plan at this time. Please call us if you have questions or problems. You can reach us at (toll free number) or [phone] (local number). If you are enrolled in [employer], and utilize those services, you may prefer to contact us by secure message. Thank you for your service to our Country. We are honored to be able to provide medical care to you. RADIOLOGY: Recent radiology results Date Procedure CPT Status Case # 01/30/2025 SHOULDER-LEFT 2 OR MORE VIEWS [id number] Verified 1514 Subacute/chronic fracture of humerus as described. Acromioclavicular joint arthropathy decreased acromiohumeral distance findings of which would predispose the patient to chronic rotator cuff impingement/tear. Old fractures of left ribs. Time was taken to review the chart in [facility]. It was confirmed that the patient has a past medical history of closed fracture of left humerus 01/30/2025 U/S ABDOMEN LTD 73165 Verified 1508 Bilateral abdominal wall heterogeneous mass is in the areas of clinical interest consistent with hematomas with the lesion on the left appearing more complex likely due to internal liquefaction. Sincerely, /angie/ LAURY KENYON APRN ADVANCED PRACTICE REGISTERED NURSE, [facility] Patient Record Number [id number] LAURY KENYON-D [facility] January 30, 2025 01:06 PM [facility] NOTE: LOCAL TITLE: [facility] CHART CHECK STANDARD TITLE: [facility] NOTE DATE OF NOTE: JANUARY 30, 2025@13:06 ENTRY DATE: JANUARY 30, 2025@13:06:05 AUTHOR: LAURY KENYON EXP COSIGNER: URGENCY: STATUS: COMPLETED JANUARY 30, 2025 Assembler Camper E-Sig: Report: EXAMINATION: ULTRASOUND THE ABDOMEN LIMITED [...] more complex likely due to internal liquefaction. /es/ LAURY KENYON APRN ADVANCED PRACTICE REGISTERED NURSE, [facility] Signed: 01/30/2025 13:42 LAURY KENYON-KAREND [facility] January 14, 2025 03:53 PM LETTERS: LOCAL TITLE: [facility] LETTER TEST RESULTS STANDARD TITLE: LETTERS DATE OF NOTE: JANUARY 14, 2025@15:53 ENTRY DATE: JANUARY 14, 2025@15:54:11 AUTHOR: LAURY KENYON EXP COSIGNER: URGENCY: STATUS: COMPLETED [facility] [address] [place] [address] Mr. ROXI CLINE JR CATHI [address] [place] [address] January Dear Mr. ROXI WINKLER Your [facility] Provider has reviewed your recent tests, and wanted us to let you know that everything looked stable. A copy of your test results is attached below. You may notice that some tests are listed as outside normal limits. Your [facility] Provider has reviewed these results, and has determined these are not considered to be significant. Therefore, they do not require further investigation or treatment. There are no recommended changes in your medications or treatment plan at this time. Please call us if you have questions or problems. You can reach us at (toll free number) or [phone] (local number). If you are enrolled in [employer], and utilize those services, you may prefer to contact us by secure message. Thank you for your service to our Country. We are honored to be able to provide medical care to you. LABS: Recent labwork Collection DT Specimen Test Name Result Units Ref Range 01/14/2025 12:00 PLASMA!! SODIUM 138 mmol/L 136 - 145 !! POTASSIUM 3.6 mmol/L 3.5 - 5.1 !! CHLORIDE 87 L mmol/L 98 - 107 !! CO2 46 H* mmol/L 22 - 29 !! ANION GAP 5.0 mEq/L 3 - 19 !! GLUCOSE 258 H mg/dL 74 - 100 !! UREA NITROGEN 15 mg/dL 9 - 25 !! CREATININE 0.97 mg/dL 0.72 - 1.25 !! eGFR (CKD-EPI) 84 SEE EVAL !! CALCIUM 8.8 mg/dL 8.4 - 10.2 01/14/2025 12:00 BLOOD !! GLYCOHEMOGLOBIN 7.2 H % 4.4 - 5.6 01/14/2025 12:00 BLOOD WBC 11.6 H K/cmm 5.0 - 10.0 [...] 13.1 NRBC 0.0 % 0.0 - 0.0 !! Indicates COMMENTS AVAILABLE...Refer to Interim Lab Report. RADIOLOGY: Recent radiology results Date Procedure CPT Status Case # 12/23/2024 SEGMENTAL PRESSURES, LOWER [id number] Verified 655 EXT(ROCK) UNILAT Right: Normal study. Hemodynamically significant disease is not identified. No arterial insufficiency is present at rest. Left: Normal study. Hemodynamically significant disease is not identified. No arterial insufficiency is present at rest. Sincerely, /angie/ LAURY KENYON APRN ADVANCED PRACTICE REGISTERED NURSE, [facility] Patient Record Number [id number] LAURY KENYON-CDD [facility] January 14, 2025 03:20 PM [facility] NURSING NOTE: LOCAL TITLE: [facility] NURSING PROGRESS STANDARD TITLE: [facility] NURSING NOTE DATE OF NOTE: JANUARY 14, 2025@15:20 ENTRY DATE: JANUARY 14, 2025@15:20:47 AUTHOR: SHIMON SINCLAIR EXP COSIGNER: URGENCY: STATUS: COMPLETED [facility] FOLLOW-UP NOTE Date of visit: January Time spent with patient: 60 min Date of admission to [facility]: Patient Identified by: Name, Known Address Source of Information: Patient, Spouse What matter most to you in your life right now? I am looking forward to gettingmy chair so I can get out of the house without falling MEDICATIONS: Active Medications: Active Outpatient Medications (including Supplies): ALBUTEROL 90MCG (CFC-F) 200D ORAL INHL INHALE 2 PUFFS BY ACTIVE MOUTH EVERY 6 HOURS NEEDED FOR SHORTNESS OF BREATH BANDAGE,GAUZE 4.5IN X 4.1YD STERILE USE BANDAGE [...] ACTIVE AREA NEEDED Indication: FOR WOUND CARE DICLOFENAC NA 1% TOP GEL APPLY 2 GRAM STRIP TO AFFECTED ACTIVE AREA EVERY 6 HOURS NEEDED Indication: FOR PAIN DOCUSATE NA 50MG/SENNOSIDES 8.6MG TAB TAKE 1 [...] EC TAB 81MG MOUTH DAILY ACTIVE Non-VA OXYGEN GAS 3 LITERS NASAL CANNULA DAILY ACTIVE 25 Total Medications Sptp-vtl-furzzuh products used by patient: None per patient Medications/OTC/supplements started and/or discontinued since last [facility] visit. PER [facility] medication list- Medication list compared with list/medication bottles in the home: No medication discrepancies were identified. Has the patient missed any doses since the last visit?* No Updated medication list was provided for the patient/caregiver: during the visit Education Provided: Education including regimen, indication for use, potential side effects, and interactions provided for the following medications: Reviewed meds use and side effects-both and his voiced understanding. Medication education and updated medication sheet provided to: Patient Patient/caregiver indicated understanding by: Verbalization Medications set up by: Self, Caregiver HOME SAFETY ASSESSMENT: No Unsound structure No Unsafe functional barriers (stairs, etc.) No Unsafe placement of rugs, cords, furniture No Weapons in the home N/A Weapons secured in an area away from the area of care provision No Inadequate Heating/Electricity No Inadequate Cooking Facilities No Inadequate Sleeping Arrangements No Inadequate Ventilation No Inadequate [place] No Unsafe Storage of Supplies/Equipment No Presence of Infestation of Pests Yes Functioning Smoke Alarm Present No Fire Extinguisher Present Yes Fire Exit Plan No Use of Restraints Yes Home is adaptable for Home Care No Smoking materials present in the home N/A Pets secured in an area away from the area of care provision Yes Additional safety concerns: fall risk- Temperature: Temperature: 98.6 F (37 C) Pulse: Pulse: 80 Pulse Oximetry: 94 Respirations: Respirations: 18 Blood Pressure: Blood Pressure: 122/68 Pain: Pain: 5 OXYGEN IN THE HOME: Yes: Patient Patient [...] in well-ventilated area Home Oxygen Education: -Encourage [place] to notify neighbors of Oxygen in use. -Reviewed causes of fire (smoking, open flames, oil based products) and precautions to prevent fire related injuries. -Placement and maintenance of concentrator, tubing, and accessories. Recommendations for identified risks: No identified risks noted// Patient/caregiver response to education: Verbalizes understanding PAIN EVALUATION: Patient answers YES to Do you have pain? question. Pain Scale: 5 interrupts some activities Type of pain: Ache, Dull Location of current pain: shoulder an back Patient's acceptable pain level: 3 Chronic Onset/Duration: comes and goes-but seems to be staying longer- Therapeutic Actions Taken: Non-Pharmacological measures: Immobilization The pain affects your: Sleep, Physical activity, Activity NEUROLOGICAL STATUS: No problems noted The patient is currently: Alert, Oriented to person, Oriented to place, Oriented to time, Oriented to situation, Follows verbal commands, Pupils PEARRL The patient exhibits: Forgetful Education Provided: Review of s/s that need [...] you feel suicidal today? No CARDIOVASCULAR STATUS: unable to take DOAC [...] require immediate medication attention (s/s of acute UT, palpitations, ect...), Notify [facility] of new or [...] PROCEDURES/INTERVENTIONS: Medication Reconcilliation, Mediplanner Fill, Vital Signs, Assessment, Veinpuncture EDUCATION: Fall Prevention: Proper footwear, Safe use [...] indicates understanding of education by: Verbalizes Comments: Labs obtained from right ac for P! A1C and CBC. Skilled nurse in home to teach on HTN COPD CHF Diabetes BPH Next visit cancelled on 01/30 due to ultra sound being scheduled for same day. Asked for next visit to be scheduled after his ultra sound- PCP, Patient conts to have pain in his shoulder and back-rated as a 5 at today's visit- He may be a good candidate for a home ultra sound from [employer]- Contact number in [phone] and name is Brennan Lugo- /angie/ SHIMON SINCLAIR RN Signed: 01/14/2025 15:36 Receipt Acknowledged By: 01/14/2025 16:00 /angie/ LAURY KENYON APRN ADVANCED PRACTICE REGISTERED NURSE, [facility] IDAZ-D [facility]
--- OUTSIDE RECORDS SUMMARY | 2025-01-15 06:20 | XMS_ITS ---
Author Name [facility] [place] Organization [facility] [place] Address [address] [place] [address] Care Team Providers Care Induction Furnace Operator Name Role Phone LAURY KENYON Primary [...] ON [employer] Jun 03, 2017 [id number] ROXI WINKLER PATIENT HUMANA [facility] (WNR) MEDICARE ADVANTAGE [facility] (WN) Sep 03, 2019 [id number] [phone] ROXI WINKLER JR PATIENT [employer]MANA [facility] (WNR) MEDICARE ADVANTAGE [facility] (WNR) Sep 03, 2019 [id number] ROXI WINKLERA MCR (WNR) MEDICARE ADVANTAGE HUMAN A INSUR ANCE COM Apr 04, 2019 [id number] ROXI WINKLERA MCR (WNR) MEDICARE ADVANTAGE MCR (WNR) Apr 03, 2019 [id number] ROXI WINKLERA MCR (WNR) MEDICARE ADVANTAGE MCR (WNR) Apr 03, 2019 [id number] ROXI WINKLERA MCR (WNR) MEDICARE ADVANTAGE MCR (WNR) Apr 03, 2019 [id number] ROXI WINKLER JR PHARMACY PRESCRIPT ION NONE Jun 03, 2017 NONE [id number] [phone] ROXI WINKLER MEDICARE PART D (WNR) MEDICARE (M) PART D Sep 03, 2023 PART D [id number] ROXI WINKLER JR PATIENT Selected Encounter This section includes the information on record at [place] for the Encounter. Date/Time Encounter Type Encounter Description Reason Provider Source January 15, 2025 10:20 AM [facility]OSPICE OF RN EA 15 MIN PC Nursing (RN / LP) ICD-10-CM G89.4 Chronic pain syndrome SHIMON SINCLAIR Adela Encounter Template Text not used by [place] Assessments - Encounter Diagnoses This section includes the primary and secondary diagnoses documented for the Encounter. Date/Time Primary/Secondary Diagnosis Diagnosis Name Provider Source January 15, 2025 02:49 PM PRIMARY Chronic pain syndrome SHIMON SINCLAIR-Yancy [facility] Plan of Treatment: Future Appointments (+ 6 months) and Future Tests (+/- 45 days) The Plan of Treatment section includes future care activities for the patient from all [place] treatmentfacilities. This section includes future appointments and [...] 11:00 AM AMBULATORY - NONE STEPHEN Barnes [facility] Feb 17, 2025 02:00 PM AMBULATORY - SURGERY TAWNY SERRANO [facility] Apr 14, 2025 10:30 AM [facility] Lab Results: +/- 30 days [...] Type Comment January 15, 2025 10:00 AM [facility] DRUG SCREEN EXPANDED IN-HOUSE URINE [...] January 02, 2025 08:09 AM Reporting Lab: [address] [address] Performing Lab: [address] [address] TETRAHYDROCANNABINOL SCREEN NEG Cuto ff < 50 [...] < 1 January 14, 2025 12:00 PM [facility] GLYCOHEMOGLOBIN BLOOD Specimen Type: BLOOD Comment: Prediabetes: 5.7%-6.4% Diabetes: >= 6.5% [facility] guidelines for A1c interpretation: Glycemic control targets are based on Shared Decision Making between clinicians and patients. Criteria used to establish an A1c target recommendation can be found at https://www.ne.gov/qualityandpatientsafety/ and include the use of result accuracy [...] 8.73 and 9.27. Ref: https://ngsp.org/CAPdata.asp. The in-house [employer] D-100 analyzer has a historical CV <= 2%. Contact the laboratory for further performance characteristics of this assay. Ordering Provider: LAURY KENYON Report Released Date/Time: January 06, 2025 03:36 PM Reporting Lab: [address] [address] Performing Lab: [address] [address] GLYCOHEMOGLOBIN 7.2 H 4.4-5.6 January 14, 2025 12:00 PM [facility] CBC/PLT BLOOD Specimen Type: BLOOD No comment entered. Ordering Provider: LAURY KENYON Report Released Date/Time: January 06, 2025 12:45 PM Reporting Lab: [address] [address] Performing Lab: [address] [address] WBC 11.6 10*3/uL H 5.0-10.0 RBC 4.36 10*6/uL L 4.6-6.2 HGB 12.7 g/dL L 14.0-18.0 HCT 39.9 L 42.0-52.0 MCV 91.5 fL 80.0-94.0 MCH 29.1 pg 27.0-31.0 MCHC 31.8 g/dL L 32.0-36.0 PLT 212 10*3/uL 150-450 MPV 9.9 fL 9.0-13.1 RDW 14.6 11.0-16.0 NRBC 0.0 0.0-0.0 January 14, 2025 12:00 PM [facility] PLASMA Specimen Type: PLASM A Comment: CRITICAL CALLED TO & READ BACK BY: LAURY KENYON 01/14/25@1541 [facility] Estimated Glomerular Filtration Rate (eGFR) calculated using [...] January 06, 2025 03:36 PM Reporting Lab: [address] [address] Performing Lab: [address] [place] [address] CREATININE 0.97 mg/dL 0.72-1.25 UREA NITROGEN 15 [...] 01:12 AM NON-TOBACCO USE INPATIENT [facility] Tobacco Use History This section includes a history of the smoking, or tobacco-related health factors, that were collected on or before the date of the Encounter. The data comes from the [place] facility where the Encounter took place. Date/Time Smoking Status/Tobacco Use Comment F acility Nov 24, 2015 04:48 PM NON-TOBACCO USE INPATIENT [facility] Oct 01, 2014 07:15 PM NON-TOBACCO USE INPATIENT [facility] Apr 10, 2005 01:20 PM HF V9 LIFETIME NON-SMOKER [facility] Nov 24, 2003 03:11 PM HF V9 LIFETIME NON-SMOKER [facility] Oct 07, 2002 02:26 PM HF V9 LIFETIME NON-SMOKER [facility] Advance Directives: All historical and current Section [...] ADVANCE DIRECTIVE DISCUSSION ANTHONY IRVING [facility] Radiology Reports: +/- 30 days of the [...] 2 OR MORE VIEWS: ROXI WINKLER [facility] [id number] -1955 M Exm Date: JANUARY 30, 2025@11:14 Req Phys: LAURY KENYON Loc: [place] [facility] RN HM VST (Req'g Loc) Img Loc: CDD RADIOLOGY Service: [place] [address] (Case [id number] COMPLETE)SHOULDER-LEFT 2 OR MORE VIEWS (RAD Detailed) CPT:08890 Reason for Study: pain Clinical History: Report Status: Verified Date Reported: JANUARY 30, 2025 Date Verified: JANUARY 30, 2025 Welt Wheeler E-Sig: Report: EXAMINATION: LEFT SHOULDER 2 VIEWS [...] Interpreting Staff: DUSTY SCOTT Radiologist Verified by coal trammer for DUSTY SCOTT /DUSTY GONZALEZYancy [facility] January 30, 2025 10:57 AM U/S ABDOMEN LTD: ROXI WINKLER [facility] [id number] -1955 M Exm Date: JANUARY 30, 2025@10:57 Req Phys: LAURY KENYON Loc: [place] [facility] SEAWEED HARVESTER PHONE (Req'g Loc) Img Loc: ULTRASOUND Service: [place] [address] (Case [id number] COMPLETE)U/S ABDOMEN LTD ([place] Detailed) CPT:04293 Reason for Study: bilateral abdominal hematoma increasing in size Clinical History: Report Status: Verified Date Reported: JANUARY 30, 2025 Date Verified: JANUARY 30, 2025 Welt Wheeler E-Sig: Report: EXAMINATION: ULTRASOUND THE ABDOMEN LIMITED [...] Interpreting Staff: DUSTY SCOTT Radiologist Verified by coal trammer for DUSTY SCOTT /DUSTY GONZALEZYancy [facility] Dec 23, 2024 12:59 PM SEGMENTAL PRESSURE S, LOWER EXT(ROCK) UNILAT: ROXI WINKLER [facility] [id number] -1955 M Exm Date: DEC 23, 2024@12:59 Req Phys: MARCUS MONTELONGO Loc: [place] POD/PROCEDURE/ATT1/LD (Req Img Loc: [place] [facility] [place] Service: Unknown (Case [id number] COMPLETE) SEGMENTAL PRESSURES, LOWER EXT(AB(VAS Detailed) CPT:63903 Reason for Study: SEE CLINICAL HISTORY Clinical History: ROCK's/Segs Indications: Diminished pulses Report Status: Verified Date Reported: DEC 24, 2024 Date Verified: DEC 24, 2024 Welt Wheeler E-Sig: Report: SEGMENTAL PRESSURES AND ANKLE-BRACHIAL INDEX [...] Staff: TARYN TOMAS, ATTENDING PHYSICIAN Verified by coal trammer for TARYN TOMAS /TARYN TELLES [facility] Encounter Notes: All associated encounter notes This section contains the clinical notes associated to the Encounter. Date/Time Encounter Note(s) Provider Source Feb 06, 2025 12:56 PM PRIMARY CARE MAGALYS RS: LOCAL TITLE: Pc Letter Physician/provider Statement STANDARD TITLE: PRIMARY CARE LETTERS DATE OF NOTE: FEB 06, 2025@12:56 ENTRY DATE: FEB 06, 2025@12:56:32 AUTHOR: LAURY KENYON COSIGNER: URGENCY: STATUS: COMPLETED [facility] [address] [place] [address] ROXI WINKLER [address] [address] Dear Ben ROXI SON WINKLER: Here is some information about your new prescription for Butrans Patch 5 mg. You should apply a new patch every 7 days on the same time of the day, rotating sites every week as decribed below: o Remove patch from protective pouch immediately before application. Apply patch to intact, non-irritated skin only. Apply to a hairless or nearly hairless skin site. If hairless site is not available, do not shave skin; hair at application site should be clipped. o Prior to application, if the site must be cleaned, clean with clear water and allow to dry completely; do not use soaps, alcohol, oils, lotions, or abrasives due to potential for increased skin absorption. Do not use any patch that has been damaged, cut or manipulated in any way. o Remove the protective backing and apply the sticky side of the patch to one of eight possible application sites (upper outer arm, upper chest, upper back or the side of the chest [each site on either side of the body]). Up to 2 patches may be applied at the same time adjacent to one another at the same application site. o Firmly press patch in place and hold for ~15 seconds. Change patch every 7 days. Rotate patch application sites whenever a patch is replaced or added; wait =21 days before reapplying another patch to the same skin site. o Avoid exposing application site to external heat sources (eg, heating pad, electric blanket, heat lamp, hot tub). Incidental exposure to water while bathing or showering is acceptable based on experience during clinical studies. If there is difficulty with patch adhesion, the edges of the system may be taped in place with first-aid tape. If ineffective, the system may be covered with waterproof or semipermeable adhesive dressings suitable for 7 days of wear. If the patch falls off during the 7-day dosing interval, dispose of the patch and apply a new patch to a different skin site. o Dispose of patches using the Patch-Disposal Unit or by folding the adhesive sides of the patch together and then flushing down the toilet. You may continue to take tramadol as needed for breakthrough pain while we are adjusting your dose of butrans, with the eventual goal of weaning you off the tramadol. If you have any questions for me, please call telephone care at . For Telephone Care call: Toll free Sincerely, /es/ LAURY KENYON APRN ADVANCED PRACTICE REGISTERED NURSE, [facility] Patient Record Number [id number] [place]ANT[address]Y [place] [facility] January 30, 2025 01:03 PM [facility] NOTE: LOCAL TITLE: [facility] CHART CHECK STANDARD TITLE: [facility] NOTE DATE OF NOTE: JANUARY 30, 2025@13:03 ENTRY DATE: JANUARY 30, 2025@13:03:30 AUTHOR: LAURY KENYON EXP COSIGNER: URGENCY: STATUS: COMPLETED JANUARY 30, 2025 Welt Wheeler E-Sig: Report: EXAMINATION: LEFT SHOULDER 2 VIEWS [...] to chronic rotator cuff impingement and tear.. /es/ LAURY KENYON APRN ADVANCED PRACTICE REGISTERED NURSE, [facility] Signed: 01/30/2025 13:03 [facility] January 15, 2025 02:45 PM NURSING NOTE: LOCAL TITLE: [facility] FOCUSED NURSING NOTE STANDARD TITLE: NURSING NOTE DATE OF NOTE: JANUARY 15, 2025@14:45 ENTRY DATE: JANUARY 15, 2025@14:45:34 AUTHOR: SHIMON SINCLAIR EXP COSIGNER: URGENCY: STATUS: COMPLETED Length of home visit: 30 min Patient name: ROXI WINKLER JR Patient : Apr Date/Time of Visit: Vital Signs: Wt: WEIGHT: No values within 24 hours BP: BLOOD PRESSURE: Measurement DT BP 01/15/2025 10:15 128/68 Pulse: PULSE: Measurement DT PULSE 01/15/2025 10:15 72 Pulse Ox: Resp: RESPIRATIONS: Measurement DT RESP 01/15/2025 10:15 20 Pain: PAIN SCORE: Measurement DT PAIN 01/15/2025 10:15 3 Temp: 98.2 F [36.8 C] (01/15/2025 10:15) Reason for visit: To obtain a urine speciman- Do you have any pain now? Yes Possible pain behaviors: Location: back and left shoulder- Intensity: Severity Scale (3) Acceptable/tolerable level for patient: Severity Scale (3) Cause (origin of pain): chronic pain syndrome- Chronic pain- patient reports pain rated 3/10 in his neck, back, left shoulder and arm. He also has neuropathic pain rated 5/10. He has HH physical therapy with is working on strengthening and he believes it is helping. He is also wearing a back brace to help with standing and walking. He takes venlafaxine SA 150 mg, tramadol 50 mg total of 4 tablets daily, and methocarbamol 750 bid for muscle spasm, and uses lidocaine patches. Follows pain pharmacology team. Is hoping to get approval for pain ultra sound device= Describe your pain: Pain Affects: What makes it worse? What makes it better? Current treatment: Non-Pharmacological methods of pain used: Medications: Does current treatment help pain? No Comments: Falls: Assist Devices: Have you fallen since the last [facility] nurse visit? No If yes, date of fall: Other: Medications: Active and Recently Outpatient Medications (including Supplies): Active Outpatient Medications Status 1) ALBUTEROL 90MCG (CFC-F) 200D ORAL INHL INHALE 2 PUFFS BY ACTIVE MOUTH EVERY 6 HOURS NEEDED FOR SHORTNESS OF BREATH 2) BANDAGE,GAUZE 4.5IN X 4.1YD STERILE USE BANDAGE ON AFFECTED ACTIVE AREA EVERY OTHER DAY Indication: FOR WOUND CARE 3) BIKTARVY 50/200/25 TAB TAKE 1 TABLET BY MOUTH DAILY ACTIVE Indication: INFECTION 4) BUMETANIDE 2MG TAB TAKE ONE TABLET BY MOUTH DAILY FOR FLUID ACTIVE (TAKE ADDITIONAL EVENING DOSE FOR 3LB WEIGHT GAIN IN 24 HOURS OR 5LB WEIGHT GAIN IN 1 WEEK) 5) CLEANSER,WOUND SKINTEGRITY TOP SPRAY SPRAY TO AFFECTED AREA ACTIVE NEEDED Indication: FOR WOUND CARE 6) DICLOFENAC NA 1% TOP GEL APPLY 2 GRAM STRIP TO AFFECTED AREA ACTIVE EVERY 6 HOURS NEEDED Indication: FOR PAIN 7) DOCUSATE NA 50MG/SENNOSIDES 8.6MG TAB TAKE 1 TABLET BY MOUTH ACTIVE TWICE A DAY Indication: FOR CONSTIPATION 8) DRESSING,HONEY TOP PASTE APPLY SMALL AMOUNT TO AFFECTED AREA ACTIVE DIRECTED Indication: FOR WOUND CARE 9) FINASTERIDE 5MG TAB TAKE ONE TABLET BY MOUTH DAILY FOR ACTIVE PROSTATE 10) GABAPENTIN 300MG CAP TAKE TWO CAPSULES BY MOUTH EVERY ACTIVE MORNING AND TAKE THREE CAPSULES EVERY EVENING AND TAKE THREE CAPSULES AT BEDTIME Indication: FOR NERVE PAIN 11) GAUZE PAD 4IN X 4IN NONSTERILE USE GAUZE AFFECTED AREA ACTIVE DIRECTED Indication: WOUND CARE 12) GLUCOSE SENSOR DEXCOM G7 USE SENSOR DIRECTED NEEDED ACTIVE (S) Indication: FOR BLOOD SUGAR MONITORING 13) INSULIN CONC REG HUM 500 UNT/ML KWIKPEN INJECT 60 UNITS ACTIVE UNDER THE SKIN EVERY MORNING AND INJECT 50 UNITS EVERY EVENING -KEEP REFRIGERATED UNTIL PEN IN USE, ONCE IN USE DISCARD AFTER 28 DAYS Indication: FOR BLOOD SUGAR 14) LIDOCAINE 5% 5IN X 6IN PATCH APPLY 2 PATCHES TO SKIN DAILY ACTIVE NEEDED FOR PAIN. (LEAVE ON 12 HOURS, THEN REMOVE FOR 12 HOURS) 15) METHOCARBAMOL 750MG TAB TAKE ONE TABLET BY MOUTH EVERY 6 ACTIVE HOURS NEEDED FOR MUSCLE SPASM 16) NEEDLE,PEN 31G,8MM USE NEEDLE NEEDLE,PEN 31G,5/16IN DEVICE ACTIVE DIRECTED FOR USE WITH U500 KWICKPEN 17) OLODATEROL/TIOTROP 2.5MCG/ACTUAT 60D INH INHALE 2 PUFFS BY ACTIVE MOUTH EVERY MORNING FOR BREATHING 18) PANTOPRAZOLE NA 40MG EC TAB TAKE ONE TABLET BY MOUTH DAILY ACTIVE TAKE ON AN EMPTY STOMACH. Indication: FOR STOMACH 19) PROMOGRAN MIKE 4.34 X 4.34IN #MA028 APPLY DRESSING(S) TO ACTIVE AFFECTED AREA EVERY OTHER DAY 20) SITAGLIPTIN (EQV-ZITUVIO) 100MG TAB TAKE ONE TABLET BY MOUTH ACTIVE DAILY -REPLACES ALOGLIPTIN. STORE IN ORIGINAL CONTAINER. OPENED BOTTLES MUST BE USED WITHIN 3 MONTHS Indication: FOR BLOOD SUGAR 21) TAMSULOSIN HCL 0.4MG CAP TAKE ONE CAPSULE BY MOUTH EVERY ACTIVE EVENING FOR PROSTATE 22) TRAMADOL HCL 50MG TAB TAKE ONE TABLET BY MOUTH EVERY MORNING ACTIVE AND TAKE ONE TABLET EVERY EVENING AND TAKE TWO TABLETS AT BEDTIME NEEDED (USE SPARINGLY. SUPPLY MUST LAST 30 DAYS. CAUSES IMPAIRMENT, RECOMMEND NOT TO DRIVE ON THIS MEDICATION.) Indication: FOR PAIN 23) VENLAFAXINE HCL 150MG 24HR SA CAP TAKE ONE CAPSULE BY MOUTH ACTIVE DAILY Indication: FOR CHRONIC PAIN Inactive Outpatient Medications Status 1) AMOXICILLIN 875/CLAV K 125MG TAB TAKE 1 TABLET BY MOUTH TWICE A DAY Indication: FOR SKIN OR SOFT TISSUE INFECTION 2) GLUCOSE SENSOR DEXCOM G6 USE SENSOR DIRECTED DIRECTED NEEDED 3) METOPROLOL TARTRATE 100MG TAB TAKE ONE TABLET BY MOUTH TWICE A DAY Indication: FOR BLOOD PRESSURE/HEART Active Non-VA Medications Status 1) Non-VA ASPIRIN 81MG EC TAB 81MG MOUTH DAILY ACTIVE 2) Non-VA OXYGEN GAS 3 LITERS NASAL CANNULA DAILY ACTIVE 28 Total Medications Are you taking any new medication (non-VA, over the counter, herbal medications) since the last [facility] visit? no urine obtained and brought into the lab. /angie/ SHIMON SINCLAIR RN Signed: 01/15/2025 14:49 SHIMON SINCLAIR-MAURA [facility]
--- OUTSIDE RECORDS SUMMARY | 2025-01-27 07:24 | XMS_ITS | Encounter Summary ---
Author Name [place] Organization [place] Address [address] [place] [address] Care Team Providers Care Supervisor Shipping Room Name Role Phone LAURY KENYON Primary Care [...] PREFERRED PROVIDER ORGANIZAT ION (PPO) ARELIS ON MAGYOluKai LADY VARELA Jun 03, 2017 [id number] ROXI WINKLER PATIENT HUMANA [facility] (WNR) MEDICARE ADVANTAGE [facility] (WNR) Sep 03, 2019 [id number] ROXI WINKLER JR PATIENT [employer]NA MCR (WNR) MEDICARE ADVANTAGE [facility] (WNR) Sep 03, 2019 [id number] ROXI WINKLERA MCR (WNR) MEDICARE ADVANTAGE HUMAN A INSUR ANCE COM Apr 04, 2019 [id number] ROXI WINKLERA MCR (WNR) MEDICARE ADVANTAGE [facility] (WNR) Apr 03, 2019 [id number] ROXI WINKLERA MCR (WNR) MEDICARE ADVANTAGE MCR (WNR) Apr 03, 2019 [id number] ROXI WINKLERA MCR (WNR) MEDICARE ADVANTAGE MCR (WNR) Apr 03, 2019 [id number] ROXI WINKLER JR PHARMACY PRESCRIPT ION NONE Jun 03, 2017 NONE [id number] ROXI WINKLER MEDICARE PART D (WNR) MEDICARE (M) PART D Sep 03, 2023 PART D [id number] ROXI WINKLER JR PATIENT Selected Encounter This section includes the information on record at [place] for the Encounter. Date/Time Encounter Type Encounter Description Reason Pro vider Source January 27, 2025 11:24 AM Outpatient Encounter ADMIN PAT ACTIVTIES (MASNONCT) [facility] Encounter Template Text not used by [place] Plan of Treatment: Future Appointments (+ 6 [...] 11:00 AM AMBULATORY - NONE [place] [facility] Feb 17, 2025 02:00 PM AMBULATORY - SURGERY TAWNY SERRANO [facility] Apr 14, 2025 10:30 AM AMBULATORY - MEDICINE FORTUNATO GALLEGOS-KAREND [facility] Lab Results: +/- 30 days of the [...] January 02, 2025 08:09 AM Reporting Lab: [address] [address] Performing Lab: [address] [address] TETRAHYDROCANNABINOL SCREEN NEG Cuto ff < 50 [...] < 1 January 14, 2025 12:00 PM [facility] GLYCOHEMOGLOBIN BLOOD Specimen Type: BLOOD Comment: Prediabetes: 5.7%-6.4% Diabetes: >= 6.5% [facility] guidelines for A1c interpretation: Glycemic control targets are based on Shared Decision Making between clinicians and patients. Criteria used to establish an A1c target recommendation can be found at https://www.or.gov/qualityandpatientsafety/ and include the use of result accuracy [...] 8.73 and 9.27. Ref: https://ngsp.org/CAPdata.asp. The in-house [employer] D-100 analyzer has a historical CV <= 2%. Contact the laboratory for further performance characteristics of this assay. Ordering Provider: LAURY KENYON Report Released Date/Time: January 06, 2025 03:36 PM Reporting Lab: [address] [address] Performing Lab: [address] [address] GLYCOHEMOGLOBIN 7.2 H 4.4-5.6 January 14, 2025 12:00 PM [facility] CBC/PLT BLOOD Specimen Type: BLOOD No comment entered. Ordering Provider: LAURY KENYON Report Released Date/Time: January 06, 2025 12:45 PM Reporting Lab: [address] [address] Performing Lab: [address] [address] WBC 11.6 10*3/uL H 5.0-10.0 RBC 4.36 10*6/uL L 4.6-6.2 HGB 12.7 g/dL L 14.0-18.0 HCT 39.9 L 42.0-52.0 MCV 91.5 fL 80.0-94.0 MCH 29.1 pg 27.0-31.0 MCHC 31.8 g/dL L 32.0-36.0 PLT 212 10*3/uL 150-450 MPV 9.9 fL 9.0-13.1 RDW 14.6 11.0-16.0 NRBC 0.0 0.0-0.0 January 14, 2025 12:00 PM [facility] PANEL 1 PLASMA Specimen Type: PLASM [...] January 06, 2025 03:36 PM Reporting Lab: [address] [address] Performing Lab: [address] [address] CREATININE 0.97 mg/dL 0.72-1.25 UREA NITROGEN 15 [...] place. Date/Time Current Smoking Status Comment Anita pachecoy Sep 06, 2023 10:00 AM VA-TOBACCO NEVER USED [facility] Tobacco Use History This section includes a history of the smoking, or tobacco-related health factors, that were collected on or before the date of the Encounter. The data comes from the [place] facility where the Encounter took place. Date/Time Smoking Status/Tobacco Use Comment F acsabas Jun 20, 2022 10:30 AM VA-TOBACCO NEVER USED [facility] Jul 27, 2020 03:22 PM VA-TOBACCO NEVER USED [facility] Jul 19, 2018 11:24 AM VA-TOBACCO NEVER USED [facility] Mar 18, 2018 10:14 AM V9 LIFETIME NON-USER OF TOBACCO [facility] Mar 29, 2017 07:47 AM V9 LIFETIME NON-USER OF TOBACCO [facility] Apr 27, 2016 08:56 AM V9 LIFETIME NON-USER OF TOBACCO [facility] May 27, 2015 09:53 AM V9 LIFETIME NON-USER OF TOBACCO [facility] Jun 29, 2014 02:25 PM V9 LIFETIME NON-USER OF TOBACCO [facility] Feb 10, 2013 02:08 PM V9 LIFETIME NON-USER OF TOBACCO [facility] Mar 19, 2012 09:36 AM V9 LIFETIME NON-USER OF TOBACCO [facility] Dec 13, 2010 10:09 AM V9 LIFETIME NON-USER OF TOBACCO [facility] Aug 13, 2006 09:26 AM V9 LIFETIME NON-USER OF TOBACCO [facility] Apr 24, 2006 02:37 PM HF V9 LIFETIME NON-SMOKER [facility] Advance Directives: All historical and [...] SHOULDER-LEFT 2 OR MORE VIEWS: ROXI WINKLER [facility] [id number] -1955 M Exm Date: JANUARY 30, 2025@11:14 Req Phys: LAURY KENYON Loc: [place] [facility] RN VST (Req'g Loc) Img Loc: CDD RADIOLOGY Service: [place] [address] (Case [id number] COMPLETE)SHOULDER-LEFT 2 OR MORE VIEWS (RAD Detailed) CPT:05921 Reason for Study: pain Clinical History: Report Status: Verified Date Reported: JANUARY 30, 2025 Date Verified: JANUARY 30, 2025 Ladler E-Sig: Report: EXAMINATION: LEFT SHOULDER 2 VIEWS [...] Interpreting Staff: DUSTY SCOTT, Radiologist Verified by insolvency practitioner for DUSTY SCOTT /DUSTY GONZALEZ-CDD [facility] January 30, 2025 10:57 AM U/[employer]: ROXI WINKLER [facility] [id number] -1955 M Ex Date: JANUARY 30, 2025@10:57 Req Phys: LAURY KENYON Loc: [place] [facility] CLEAT THROWER PHONE (Req'g Loc) Img Loc: ULTRASOUND Service: [place] [address] (Case [id number] COMPLETE)U/S ABDOMEN LTD ([place] Detailed) CPT:20210 Reason for Study: bilateral abdominal hematoma increasing in size Clinical History: Report Status: Verified Date Reported: JANUARY 30, 2025 Date Verified: JANUARY 30, 2025 Ladler E-Sig: Report: EXAMINATION: ULTRASOUND THE ABDOMEN LIMITED [...] Interpreting Staff: DUSTY SCOTT, Radiologist Verified by insolvency practitioner for DUSTY SCOTT /DUSTY GONZALEZYancy [facility] Encounter Notes: All associated encounter notes This section contains the clinical notes associated to the Encounter. Date/Time Encounter Note(s) Provider Source Nov 12, 2024 11:24 AM NONVA NOTE: LOCAL TITLE: OUTSIDE MEDICAL RECORD-FEE OUTPATIENT STANDARD TITLE: NONVA NOTE DATE OF NOTE: NOV 12, 2024@11:24 ENTRY DATE: JANUARY 27, 2025@11:25:05 AUTHOR: SHANNON ZEE EXP COSIGNER: URGENCY: STATUS: COMPLETED The scanned document may be viewed in [employer]. /angie/ SHANNON ZEE [facility] WELLNESS COORDINATOR Signed: 01/27/2025 11:25 SHANNON ZEEYancy [facility]
--- OUTSIDE RECORDS SUMMARY | 2025-02-06 02:30 | XMS_ITS | Encounter Summary ---
Author Name [facility] Organization [facility] [place] Address [address] [place] [address] Care Team Providers Care Content Analyst Name Role Phone LAURY KENYON Primary [...] ON [employer] Jun 03, 2017 [id number] ROXI WINKLER PATIENT [facility] [facility] (WNR) MEDICARE ADVANTAGE [facility] (WN) Sep 03, 2019 [id number] [phone] ROXI WINKLER JR PATIENT [facility] (WNR) MEDICARE ADVANTAGE [facility] (WNR) Sep 03, 2019 [id number] ROXI WINKLERA MCR (WNR) MEDICARE ADVANTAGE HUMAN A INSUR ANCE COM Apr 04, 2019 [id number] ROXI WINKLERA MCR (WNR) MEDICARE ADVANTAGE [facility] (WNR) Apr 03, 2019 [id number] ROXI WINKLERA MCR (WNR) MEDICARE ADVANTAGE MCR (WNR) Apr 03, 2019 [id number] ROXI WINKLERA MCR (WNR) MEDICARE ADVANTAGE MCR (WNR) Apr 03, 2019 [id number] [phone] ROXI WINKLER JR PHARMACY PRESCRIPT ION NONE Jun 03, 2017 NONE [id number] [phone] ROXI WINKLER MEDICARE PART D (WNR) MEDICARE (M) PART D Sep 03, 2023 PART D [id number] [phone] ROXI WINKLER JR PATIENT Selected Encounter This section includes the information on record at [place] for the Encounter. Date/Time Encounter Type Encounter Description Reason Provider Source Feb 06, 2025 06:30 AM MTMS BY PHARM ADDL 15 MIN CLINICAL PHARMACY ICD-10-CM G89.4 Chronic pain syndrome LITA PENG Adela Encounter Template Text not used by [place] Assessments - Encounter Diagnoses This section includes the primary and secondary diagnoses documented for the Encounter. Date/Time Primary/Secondary Diagnosis Diagnosis Name Provider Source Feb 06, 2025 09:43 AM PRIMARY Chronic pain syndrome LITA PENGYancy [facility] Plan of Treatment: Future Appointments (+ 6 months) and Future Tests (+/- 45 days) The Plan of Treatment section includes future care activities for the patient from all [place] treatmentfacilities. This section includes future appointments and future orders which are active, pending or scheduled. Future Appointments This section includes appointments that were scheduled to occur 6 months from the date of the Encounter, up to a maximum of 20 appointments. The data comes from all [place] treatment facilities. Appointment Date/Time Appointment Type Appointme nt Facility Name Feb 17, 2025 02:00 PM AMBULATORY - SURGERY [facility] Apr 14, 2025 10:30 AM AMBULATORY - MEDICINE [facility] Lab Results: +/- 30 days of the encounter This section includes the Chemistry and Hematology Lab Results on record with [place] for the patient. Radiology Reports and Pathology Reports are provided separately, in subsequent sections. Lab Results This section contains the Chemistry/Hematology Results that were resulted 30 days before or 30 daysafter the date of the Encounter. Date/Time Source Result Type Result - Unit Interpretation Reference Range Specimen Type Comment January 15, 2025 10:00 AM [facility] WN DRUG SCREEN EXPANDED IN-HOUSE [...] January 02, 2025 08:09 AM Reporting Lab: [address] [address] Performing Lab: [address] [address] TETRAHYDROCANNABINOL SCREEN NEG Cuto ff < 50 [...] < 1 January 14, 2025 12:00 PM [facility] CBC/PLT BLOOD Specimen Type: BLOOD No comment entered. Ordering Provider: LAURY KENYON Report Released Date/Time: January 06, 2025 12:45 PM Reporting Lab: [address] [address] Performing Lab: [address] [place] [address] WBC 11.6 10*3/uL H 5.0-10.0 RBC 4.36 10*6/uL L 4.6-6.2 HGB 12.7 g/dL L 14.0-18.0 HCT 39.9 L 42.0-52.0 MCV 91.5 fL 80.0-94.0 MCH 29.1 pg 27.0-31.0 MCHC 31.8 g/dL L 32.0-36.0 PLT 212 10*3/uL 150-450 MPV 9.9 fL 9.0-13.1 RDW 14.6 11.0-16.0 NRBC 0.0 0.0-0.0 January 14, 2025 12:00 PM [facility] PL[facility] Specimen Type: PLASM A Comment: CRITICAL CALLED TO & READ BACK BY: LAURY KENYON 01/14/25@154[facility] Estimated Glomerular Filtration Rate (eGFR) calculated [...] January 06, 2025 03:36 PM Reporting Lab: [address] [address] Performing Lab: [address] [address] CREATININE 0.97 mg/dL 0.72-1.25 UREA NITROGEN 15 mg/dL 9-25 GLUCOSE 258 mg/dL H 74-100 SODIUM 138 mmol/L 136-145 POTASSIUM 3.6 mmol/L 3.5-5.1 CHLORIDE 87 mmol/L L 98-107 CO2 46 mmol/L HH 22-29 CALCIUM 8.8 mg/dL 8.4-10.2 ANION GAP 5 meq/L 3-19 eGFR (CKD-EPI) 84 January 14, 2025 12:00 PM [facility] GLYCOHEMOGLOBIN BLOOD Specimen Type: BLOOD Comment: Prediabetes: 5.7%-6.4% Diabetes: >= 6.5% [facility] guidelines for A1c interpretation: Glycemic control [...] 8.73 and 9.27. Ref: https://ngsp.org/CAPdata.asp. The in-house Reach[employer] D-100 analyzer has a historical CV <= 2%. Contact the laboratory for further performance characteristics of this assay. Ordering Provider: LAURY KENYON Report Released Date/Time: January 06, 2025 03:36 PM Reporting Lab: [facility] [address] [address] Performing Lab: [facility] [address] [address] GLYCOHEMOGLOBIN 7.2 H 4.4-5.6 Social History: Smoking Status (Most current) and Tobacco Use (All prior to encounter date) This section includes the most current, and the historical, smoking and tobacco- related health factors from the [place] facility where the Encounter took place. Current Smoking Status This section includes the most current smoking, or tobacco-related health factor, from the [place] facility where the Encounter took place. Date/Time Current Smoking Status Comment Facil ity May 05, 2016 01:12 AM NON-TOBACCO USE INPATIENT [facility] Tobacco Use History This section includes a history of the smoking, or tobacco-related health factors, that were collected on or before the date of the Encounter. The data comes from the [place] facility where the Encounter took place. Date/Time Smoking Status/Tobacco Use Comment F acility Nov 24, 2015 04:48 PM NON-TOBACCO USE INPATIENT [facility] Oct 01, 2014 07:15 PM NON-TOBACCO USE INPATIENT [facility] Apr 10, 2005 01:20 PM HF V9 LIFETIME NON-SMOKER [facility] Nov 24, 2003 03:11 PM HF V9 LIFETIME NON-SMOKER [facility] Oct 07, 2002 02:26 PM HF V9 LIFETIME NON-SMOKER [facility] Advance Directives: All historical and current Section Date Range: From patient's date of to the date document was created. This section includes ALL of a patient's completed or amended [place] Advance and Rescinded Directives. The entries below indicate that a directive exists for the patient, but an actual copy is not included with this document. The data comes from all [place] facilities. Date Advance Directives Provider Source Sep 25, 2024 ADVANCE DIRECTIVE DISCUSSION ANTHONY IRVING [facility] Radiology Reports: +/- 30 days [...] the Encounter. The data comes from all [place] treatment facilities. Date/Time Radiology Report Provider Source January 30, 2025 11:14 AM SHOULDER-LEFT 2 OR MORE VIEWS: ROXI WINKLER NANDO [id number] -1955 M Exm Date: JANUARY 30, 2025@11:14 Req Phys: CHANTALELAURY Pat Loc: [facility] RN HM VST (Req'g Loc) Img Loc: [facility] RADIOLOGY Service: [place] [address] (Case [id number] COMPLETE)SHOULDER-LEFT 2 OR MORE VIEWS (RAD Detailed) CPT:49170 Reason for Study: pain Clinical History: Report Status: Verified Date Reported: JANUARY 30, 2025 Date Verified: JANUARY 30, 2025 Computer Security Specialist E-Sig: Report: EXAMINATION: LEFT SHOULDER 2 VIEWS [...] Primary Interpreting Staff: Beatrice BELL Verified by parcel post delivery for DUSTY SCOTT /DUSTY GONZALEZ [facility] January 30, 2025 10:57 AM U/S ABDOMEN LTD: ROXI WINKLER [id number] -1955 M Exm Date: JANUARY 30, 2025@10:57 Req Phys: LAURY KENYON Pat Loc: [facility] HEDGE FUND TRADER PHONE (Req'g Loc) Img Loc: ULTRASOUND Service: [place] [address] (Case [id number] COMPLETE)U/S ABDOMEN LTD (US Detailed) CPT:43439 Reason for Study: bilateral abdominal hematoma increasing in size Clinical History: Report Status: Verified Date Reported: JANUARY 30, 2025 Date Verified: JANUARY 30, 2025 Computer Security Specialist E-Sig: Report: EXAMINATION: ULTRASOUND THE ABDOMEN LIMITED [...] Interpreting Staff: DUSTY SCOTT Radiologist Verified by parcel post delivery for DUSTY SCOTT /DUSTY GONZALEZYancy [facility] Encounter Notes: All associated encounter notes This section contains the clinical notes associated to the Encounter. Date/Time Encounter Note(s) Provider Source Feb 06, 2025 12:30 PM ADDENDUM: LOCAL TITLE: Addendum STANDARD TITLE: ADDENDUM DATE OF NOTE: FEB 06, 2025@12:30:19 ENTRY DATE: FEB 06, 2025@12:30:20 AUTHOR: LAURY KENYON EXP COSIGNER: URGENCY: STATUS: COMPLETED Ordered Butrans 5 mg daily QW. We will titrate to effect with max dose 20 meQ. Patient can continue to take tramadol for breakthrough, with the goal of weaning off tramadol. Alena please provide medication education as outlined above. /es/ LAURY KENYON APRN ADVANCED PRACTICE REGISTERED NURSE, [facility] Signed: 02/06/2025 12:35 Receipt Acknowledged By: 02/06/2025 12:46 /es/ Roxanna Wheeler, field machinist RN for SHIMON Conley SINCLAIR --- Original Document --- 02/06/25 PHARMACOTHERAPY NOTE: ROXI WINKLER JR's record was evaluated today as part of an E-Consult. The Question Is: Patient is interested in trying the Butrans for pain management as discussed prior-his tramdol is currently 50 mg in the am and at 2pm and then 75 mg at bedtime. Conts to have high pain levels. CHART REVIEW ONLY All of ROXI Sierra JR active medications were reviewed by undersigned note author. He is being evaluated for: Transition to buprenorphine transdermal patch (butrans) Pain related medications include: 1) venlafaxine 150mg 24hr SA daily chronic pain 2) tramadol 50mg QAM, 50mg QPM, and 100mg QHS pain 3) methocarbamol 750mg Q6h prn muscle spasms 4) lidocaine 5% patch: 2 patches daily prn pain 5) gabapentin 600mg QAM, 900mg QPM, and 900mg QHS nerve pain 6) diclofenac 1% gel Q6h prn mild pain Height:71 in [180.3 cm] (11/15/2023 12:52) Weight:252.0 lb [114.31 kg] (11/21/2024 09:10) BODY MASS INDEX - 35.2 Creatinine: Collection DT Specimen Test Name Result Units Ref Range 01/14/2025 12:00 PLASMA!! CREATININE 0.97 mg/dL 0.72 - 1.25 CrCL (estimated per equation): ~91 mL/min PERTINENT HISTORY: [facility] PM&R Progress Note 01/16/25 PAIN: Current: 03/12 Location: L shoulder, back, LE's Description: constant, ache, sharp Alleviating Factors: rest, meds, pain patch Exacerbating Factors: standing, ROM, walking [facility] Focused Nursing Note 01/15/25 Chronic pain- patient reports pain rated 3/10 in his neck, back, left shoulder and arm. He also has neuropathic pain rated 5/10. He has physical therapy with is working on strengthening and he believes it is helping. He is also wearing a back brace to help with standing and walking. He takes venlafaxine SA 150 mg, tramadol 50 mg total of 4 tablets daily, and methocarbamol 750 bid for muscle spasm, and uses lidocaine patches. Follows pain pharmacology team. MEDICATIONS TRIED: 1. Topicals: capsaicin 0.1%, lidocaine 4% cream, lidocaine 5% patch, 2. Tricyclic antidepressants: 3. Other antidepressants: duloxetine, venlafaxine 4. Muscle relaxers: baclofen, cyclobenzaprine, methocarbamol, 5. NSAID/Tylenol: acetaminophen, etodolac, ibuprofen, 6. Opioids (including tramadol): hydrocodone/APAP, methadone, morphine, oxycodone, tramadol 7. Anticonvulsants (including gabapentin): diazepam, gabapentin, pregabalin, 8. Other: ALLERGIES/ADR: ENALAPRIL, FOSINOPRIL, LOPID, NIASPAN 500MG ER TABLET, ATENOLOL, HYDRALAZINE VASOTEC, SIMVASTATIN, AMLODIPINE BESYLATE 5MG TABLET, SEMAGLUTIDE Active Outpatient Medications (including Supplies): Active Outpatient [...] NEEDED ACTIVE Indication: FOR BLOOD SUGAR MONITORING 13) INSULIN [...] EVENING AND TAKE TWO TABLETS AT BEDTIME Indication: FOR PAIN 23) VENLAFAXINE HCL 150MG 24HR SA CAP TAKE ONE CAPSULE BY MOUTH ACTIVE DAILY Indication: FOR CHRONIC PAIN Active Non-VA Medications Status 1) Non-VA ASPIRIN 81MG EC TAB 81MG MOUTH DAILY ACTIVE 2) Non-VA OXYGEN GAS 3 LITERS NASAL CANNULA DAILY ACTIVE 25 Total Medications OPIOID MONITORING: Informed Consent: signed on 05/27/2015 [place] in past 3 months: 01/05/2025; appropriate Naloxone: 07/31/2020 Sleep Apnea: sleep apnea, uses CPAP Urine Drug Screen: results as expected Collection DT Specimen Test Name Result 01/15/2025 10:00 URINE !! THC SCR NEG 01/15/2025 10:00 URINE !! AMPHETAMINE SCR NEG 01/15/2025 10:00 URINE !! BARBITURATES SCR NEG 01/15/2025 10:00 URINE !! BENZODIAZEPINES S NEG 01/15/2025 10:00 URINE !! COCAINu NEG 01/15/2025 10:00 URINE !! OPIATES SCR NEG 01/15/2025 10:00 URINE !! METHADONE SCR NEG 01/15/2025 10:00 URINE !! OXYCODONE SCR NEG ROXI Sierra JR's chart was evaluated by Pain Clinic today at PCP's request to evaluate current pain medication regimen and make recommendations. PMH is significant for chronic pain, COPD, atrial fibrillation, h/o fracture, visual impairment, peripheral venous insufficiency. ASSESSMENT: Per chart review, pain is not adequately controlled with tramadol. Given pain not adequately controlled with tramadol, agree with trial of buprenorphine patch for pain management. Current total daily dose of tramadol is 200mg which corresponds to 5mcg/hr buprenorphine patch q7days. Can continue tramadol prn for breakthrough pain in addition to buprenorphine patch during initiation for 3-5 days, then discontinue. May continue PRN tramadol if needed, while titrating dose, but goal is to discontinue use once appropriate buprenorphine dose is found that controls pain. Recommendations: Initial buprenorphine dose: 5mcg/hr patch q7days Titration: Can increase patch by 5-10mcg/hr every 4-5 days Max: 20 mcg/hr patch Buprenorphine patch (Butrans) Counseling Points: o Remove patch from protective pouch immediately [...] together and then flushing down the toilet. Thank you for allowing us to participate in the care of this ! Please re-consult as necessary. Encounter Time: 90 minutes PBM PharmD Pharmacotherapy Rem V12: PHARMACIST INTERVENTIONS: PAIN MANAGEMENT Medication Intervention(s) Opioid pain medication intervention(s) Initiate new medication /angie/ Dori Bang PharmD PGY1 Grader Tender Signed: 02/06/2025 09:43 /angie/ LITA PENG PHARMD, OTF Clinical [facility] [place], Pain Management Cosigned: 02/06/2025 09:46 Receipt Acknowledged By: 02/06/2025 12:08 /angie/ Roxanna Wheeler, field machinist RN for SHIMON Conley DOTTIE 02/06/2025 12:16 /angie/ LAURY KENYON APRN ADVANCED PRACTICE REGISTERED NURSE, [facility] 02/06/2025 ADDENDUM STATUS: COMPLETED I have reviewed and discussed this with the resident and I agree with the assessment and plan. /katrina PENG PHARMD, OTF Clinical Weaver [place], Pain Management Signed: 02/06/2025 09:46 LAURY KENYON-MAURA [facility] Feb 06, 2025 06:31 AM PHARMACY NOTE: LOCAL TITLE: PHARMACOTHERAPY NOTE STANDARD TITLE: PHARMACY NOTE DATE OF NOTE: FEB 06, 2025@06:31 ENTRY DATE: FEB 06, 2025@06:31:08 AUTHOR: CRISTIAN BANG COSIGNER: LITA PENG URGENCY: STATUS: COMPLETED PHARMACOTHERAPY NOTE Has ADDENDA ROXI WINKLER JR's record was evaluated today as part of an E-Consult. The Question Is: Patient is interested in trying the Butrans for pain management as discussed prior-his tramdol is currently 50 mg in the am and at 2pm and then 75 mg at bedtime. Conts to have high pain levels. CHART REVIEW ONLY All of ROXI Sierra JR active medications were reviewed by undersigned note author. He is being evaluated for: Transition to buprenorphine transdermal patch (butrans) Pain related medications include: 1) venlafaxine 150mg 24hr SA daily chronic pain 2) tramadol 50mg QAM, 50mg QPM, and 100mg QHS pain 3) methocarbamol 750mg Q6h prn muscle spasms 4) lidocaine 5% patch: 2 patches daily prn pain 5) gabapentin 600mg QAM, 900mg QPM, and 900mg QHS nerve pain 6) diclofenac 1% gel Q6h prn mild pain Height:71 in [180.3 cm] (11/15/2023 12:52) Weight:252.0 lb [114.31 kg] (11/21/2024 09:10) BODY MASS INDEX - 35.2 Creatinine: Collection DT Specimen Test Name Result Units Ref Range 01/14/2025 12:00 PLASMA!! CREATININE 0.97 mg/dL 0.72 - 1.25 CrCL (estimated per CG equation): ~91 mL/min PERTINENT HISTORY: [facility] PM&R Progress Note 01/16/25 PAIN: Current: 03/12 Location: L shoulder, back, LE's Description: constant, ache, sharp Alleviating Factors: rest, meds, pain patch Exacerbating Factors: standing, ROM, walking [facility] Focused Nursing Note 01/15/25 Chronic pain- patient reports pain rated 3/10 in his neck, back, left shoulder and arm. He also has neuropathic pain rated 5/10. He has physical therapy with is working on strengthening and he believes it is helping. He is also wearing a back brace to help with standing and walking. He takes venlafaxine SA 150 mg, tramadol 50 mg total of 4 tablets daily, and methocarbamol 750 bid for muscle spasm, and uses lidocaine patches. Follows pain pharmacology team. MEDICATIONS TRIED: 1. Topicals: capsaicin 0.1%, lidocaine 4% cream, lidocaine 5% patch, 2. Tricyclic antidepressants: 3. Other antidepressants: duloxetine, venlafaxine 4. Muscle relaxers: baclofen, cyclobenzaprine, methocarbamol, 5. NSAID/Tylenol: acetaminophen, etodolac, ibuprofen, 6. Opioids (including tramadol): hydrocodone/APAP, methadone, morphine, oxycodone, tramadol 7. Anticonvulsants (including gabapentin): diazepam, gabapentin, pregabalin, 8. Other: ALLERGIES/ADR: ENALAPRIL, FOSINOPRIL, LOPID, NIASPAN 500MG ER TABLET, ATENOLOL, HYDRALAZINE VASOTEC, SIMVASTATIN, AMLODIPINE BESYLATE 5MG TABLET, SEMAGLUTIDE Active Outpatient Medications (including Supplies): Active Outpatient [...] NEEDED ACTIVE Indication: FOR BLOOD SUGAR MONITORING 13) INSULIN [...] EVENING AND TAKE TWO TABLETS AT BEDTIME Indication: FOR PAIN 23) VENLAFAXINE HCL 150MG 24HR SA CAP TAKE ONE CAPSULE BY MOUTH ACTIVE DAILY Indication: FOR CHRONIC PAIN Active Non-VA Medications Status 1) Non-VA ASPIRIN 81MG EC TAB 81MG MOUTH DAILY ACTIVE 2) Non-VA OXYGEN GAS 3 LITERS NASAL CANNULA DAILY ACTIVE 25 Total Medications OPIOID MONITORING: Informed Consent: signed on 05/27/2015 [place] in past 3 months: 01/05/2025; appropriate Naloxone: 07/31/2020 Sleep Apnea: sleep apnea, uses CPAP Urine Drug Screen: results as expected Collection DT Specimen Test Name Result 01/15/2025 10:00 URINE !! THC SCR NEG 01/15/2025 10:00 URINE !! AMPHETAMINE SCR NEG 01/15/2025 10:00 URINE !! BARBITURATES SCR NEG 01/15/2025 10:00 URINE !! BENZODIAZEPINES S NEG 01/15/2025 10:00 URINE !! COCAINu NEG 01/15/2025 10:00 URINE !! OPIATES SCR NEG 01/15/2025 10:00 URINE !! METHADONE SCR NEG 01/15/2025 10:00 URINE !! OXYCODONE SCR NEG ROXI JR's chart was evaluated by Pain Clinic today at PCP's request to evaluate current pain medication regimen and make recommendations. PMH is significant for chronic pain, COPD, atrial fibrillation, h/o fracture, visual impairment, peripheral venous insufficiency. ASSESSMENT: Per chart review, pain is not adequately controlled with tramadol. Given pain not adequately controlled with tramadol, agree with trial of buprenorphine patch for pain management. Current total daily dose of tramadol is 200mg which corresponds to 5mcg/hr buprenorphine patch q7days. Can continue tramadol prn for breakthrough pain in addition to buprenorphine patch during initiation for 3-5 days, then discontinue. May continue PRN tramadol if needed, while titrating dose, but goal is to discontinue use once appropriate buprenorphine dose is found that controls pain. Recommendations: Initial buprenorphine dose: 5mcg/hr patch q7days Titration: Can increase patch by 5-10mcg/hr every 4-5 days Max: 20 mcg/hr patch Buprenorphine patch (Butrans) Counseling Points: o Remove patch from protective pouch immediately [...] together and then flushing down the toilet. Thank you for allowing us to participate in the care of this ! Please re-consult as necessary. Encounter Time: 90 minutes PBM PharmD Pharmacotherapy Rem V12: PHARMACIST INTERVENTIONS: PAIN MANAGEMENT Medication Intervention(s) Opioid pain medication intervention(s) Initiate new medication /angie/ Dori Bang PharmD PGY1 Grader Tender Signed: 02/06/2025 09:43 /angie/ LITA PENG [facility], [facility] [place], Pain Management Cosigned: 02/06/2025 09:46 Receipt Acknowledged By: 02/06/2025 12:08 /angie/ Roxanna Wheeler, field machinist RN for SHIMON SINCLAIR 02/06/2025 12:16 /angie/ LAURY KENYON APRN ADVANCED PRACTICE REGISTERED NURSE, [facility] 02/06/2025 ADDENDUM STATUS: COMPLETED I have reviewed and discussed this with the resident and I agree with the assessment and plan. /katrina PENG PHARMD, [facility] Clinical [facility] [place], Pain Management Signed: 02/06/2025 09:46 02/06/2025 ADDENDUM STATUS: COMPLETED Ordered Butrans 5 mg daily QW. We will titrate to effect with max dose 20 meQ. Patient can continue to take tramadol for breakthrough, with the goal of weaning off tramadol. Alena please provide medication education as outlined above. /angie/ LAURY KENYON APRN ADVANCED PRACTICE REGISTERED NURSE, [facility] Signed: 02/06/2025 12:35 Receipt Acknowledged By: 02/06/2025 12:46 /angie/ Roxanna Wheeler, field machinist RN for SHIMON SINCLAIR 02/06/2025 ADDENDUM STATUS: COMPLETED attempted to call pt x 2 with no answer, left message with 2nd call that pt will be getting new buprenorphine 5 mg patch and that he can continue to take tramadol for breakthough pain, goal to try to titarte up on the patch and titrate off tramadol, also tried to call and she answered stating she was currently in the hospital, will continue to try to contact pt/CG with specific instructions regarding patch /angie/ Roxanna Wheeler, field machinist RN Signed: 02/06/2025 12:53 CRISTINA BANG-KAREND [facility]
--- OUTSIDE RECORDS SUMMARY | 2025-02-09 07:34 | XMS_ITS | Encounter Summary ---
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 Name Role Phone LAURY KENYON Primary Care [...] Name Patient's Relationship to Policy Pascual HUMANA CLAIMS/CT MEDICAL PREFERRED PROVIDER ORGANIZAT ION (PPO) ARELIS ON [employer] Jun 03, 2017 [id number] ROXI WINKLER PATIENT HUMANA [facility] (WNR) MEDICARE ADVANTAGE [facility] (WN) Sep 03, 2019 [id number] ROXI WINKLER JR PATIENT HUMANA [facility] (WNR) MEDICARE ADVANTAGE [facility] (WN) Sep 03, 2019 [id number] ROXI WINKLER HUMANA MCR (WNR) MEDICARE ADVANTAGE HUMAN A INSUR ANCE COM Apr 04, 2019 [id number] ROXI WINKLERA MCR (WNR) MEDICARE ADVANTAGE [facility] (WNR) Apr 03, 2019 [id number] ROXI WINKLERA MCR (WNR) MEDICARE ADVANTAGE MCR (WNR) Apr 03, 2019 [id number] ROXI WINKLER HUMANA MCR (WNR) MEDICARE ADVANTAGE MCR (WNR) Apr 03, 2019 [id number] ROXI WINKLER JR PHARMACY PRESCRIPT ION NONE Jun 03, 2017 NONE [id number] [phone] ROXI WINKLER MEDICARE PART D (WNR) MEDICARE (M) PART D Sep 03, 2023 PART D [id number] ROXI WINKLER JR PATIENT Selected Encounter This section includes the information on record at CT for the Encounter. Date/Time Encounter Type Encounter Description Reason Pro vider Source Feb 09, 2025 11:34 AM Outpatient Encounter [facility]BC ASSESSMENT IHE Encounter Template Text not used by CT Plan of Treatment: Future Appointments (+ 6 [...] 02:00 PM AMBULATORY - SURGERY TAWNY SERRANO [facility] Apr 14, 2025 10:30 AM [facility] Lab Results: +/- 30 days of [...] Type Comment January 15, 2025 10:00 AM [facility] WN DRUG SCREEN EXPANDED IN-HOUSE URINE [...] January 02, 2025 08:09 AM Reporting Lab: [address] [address] Performing Lab: [address] [address] TETRAHYDROCANNABINOL SCREEN NEG Cuto ff < 50 [...] < 1 January 14, 2025 12:00 PM [facility] CBC/PLT BLOOD Specimen Type: BLOOD No comment entered. Ordering Provider: LAURY KENYON Report Released Date/Time: January 06, 2025 12:45 PM Reporting Lab: [address] [address] Performing Lab: [address] [address] WBC 11.6 10*3/uL H 5.0-10.0 RBC 4.36 10*6/uL L 4.6-6.2 HGB 12.7 g/dL L 14.0-18.0 HCT 39.9 L 42.0-52.0 MCV 91.5 fL 80.0-94.0 MCH 29.1 pg 27.0-31.0 MCHC 31.8 g/dL L 32.0-36.0 PLT 212 10*3/uL 150-450 MPV 9.9 fL 9.0-13.1 RDW 14.6 11.0-16.0 NRBC 0.0 0.0-0.0 January 14, 2025 12:00 PM [facility] PANEL 1 PLASMA Specimen Type: PLASM A Comment: CRITICAL CALLED TO & READ BACK BY: LAURY CHANTALE 01/14/25@8079 [facility] Estimated Glomerular Filtration Rate (eGFR) calculated [...] January 06, 2025 03:36 PM Reporting Lab: [address] [address] Performing Lab: [address] [address] CREATININE 0.97 mg/dL 0.72-1.25 UREA NITROGEN 15 mg/dL 9-25 GLUCOSE 258 mg/dL H 74-100 SODIUM 138 mmol/L 136-145 POTASSIUM 3.6 mmol/L 3.5-5.1 CHLORIDE 87 mmol/L L 98-107 CO2 46 mmol/L HH 22-29 CALCIUM 8.8 mg/dL 8.4-10.2 ANION GAP 5 meq/L 3-19 eGFR (CKD-EPI) 84 January 14, 2025 12:00 PM [facility] GLYCOHEMOGLOBIN BLOOD Specimen Type: BLOOD Comment: Prediabetes: 5.7%-6.4% Diabetes: >= 6.5% [facility] guidelines for A1c interpretation: Glycemic control targets are based on Shared Decision Making between clinicians and patients. Criteria used to establish an A1c target recommendation can be found at https://www.[place].gov/qualityandpatientsafety/ and include the use of result accuracy [...] 8.73 and 9.27. Ref: https://ngsp.org/CAPdata.asp. The in-house Unafinance-DP7 Digital D-100 analyzer has a historical CV <= 2%. Contact the laboratory for further performance characteristics of this assay. Ordering Provider: LAURY KENYON Report Released Date/Time: January 06, 2025 03:36 PM Reporting Lab: [address] [address] Performing Lab: [address] [address] GLYCOHEMOGLOBIN 7.2 H 4.4-5.6 Social History: Smoking [...] Anita bartholomew Sep 06, 2023 10:00 AM VA-TOBACCO NEVER USED [facility] Tobacco Use History This section includes a history of the smoking, or tobacco-related health factors, that were collected on or before the date of the Encounter. The data comes from the [place] facility where the Encounter took place. Date/Time Smoking Status/Tobacco Use Comment Yael nicci Jun 20, 2022 10:30 AM VA-TOBACCO NEVER USED [facility] Jul 27, 2020 03:22 PM VA-TOBACCO NEVER USED [facility] Jul 19, 2018 11:24 AM VA-TOBACCO NEVER USED [facility] Mar 18, 2018 10:14 AM V9 LIFETIME NON-USER OF TOBACCO [facility] Mar 29, 2017 07:47 AM V9 LIFETIME NON-USER OF TOBACCO [facility] Apr 27, 2016 08:56 AM V9 LIFETIME NON-USER OF TOBACCO [facility] May 27, 2015 09:53 AM V9 LIFETIME NON-USER OF TOBACCO [facility] Jun 29, 2014 02:25 PM V9 LIFETIME NON-USER OF TOBACCO [facility] Feb 10, 2013 02:08 PM V9 LIFETIME NON-USER OF TOBACCO [facility] Mar 19, 2012 09:36 AM V9 LIFETIME NON-USER OF TOBACCO [facility] Dec 13, 2010 10:09 AM V9 LIFETIME NON-USER OF TOBACCO [facility] Aug 13, 2006 09:26 AM V9 LIFETIME NON-USER OF TOBACCO [facility] Apr 24, 2006 02:37 PM HF V9 LIFETIME NON-SMOKER [facility] Advance Directives: All historical and current [...] 25, 2024 ADVANCE DIRECTIVE DISCUSSION ANTHONY IRVING [facility] Radiology Reports: +/- 30 days of [...] the Encounter. The data comes from all [place] treatment facilities. Date/Time Radiology Report Provider Source January 30, 2025 11:14 AM SHOULDER-LEFT 2 OR MORE VIEWS: ROXI WINKLER [facility] [id number] -1955 M Ex Date: JANUARY 30, 2025@11:14 Req Phys: LAURY KENYON Loc: [facility] RN HM VST (Req'g Loc) Img Loc: CDD RADIOLOGY Service: [place] [address] (Case [id number] COMPLETE)SHOULDER-LEFT 2 OR MORE VIEWS (RAD Detailed) CPT:81174 Reason for Study: pain Clinical History: Report Status: Verified Date Reported: JANUARY 30, 2025 Date Verified: JANUARY 30, 2025 Story Editor E-Sig: Report: EXAMINATION: LEFT SHOULDER 2 VIEWS [...] Interpreting Staff: DUSTY SCOTT, Radiologist Verified by advisor advocate angel co founder for DUSTY SCOTT /DUSTY GONZALEZ-CDD [facility] January 30, 2025 10:57 AM U/S ABDOMEN LTD: ROXI WINKLER [id number] -1955 M Exm Date: JANUARY 30, 2025@10:57 Req Phys: LAURY KENYON Loc: [facility] SPINNER CAP FRAME PHONE (Req'g Loc) Img Loc: ULTRASOUND Service: [place] [address] (Case [id number] COMPLETE)U/S ABDOMEN LTD ([place] Detailed) CPT:20289 Reason for Study: bilateral abdominal hematoma increasing in size Clinical History: Report Status: Verified Date Reported: JANUARY 30, 2025 Date Verified: JANUARY 30, 2025 Story Editor E-Sig: Report: EXAMINATION: ULTRASOUND THE ABDOMEN LIMITED [...] Interpreting Staff: DUSTY SCOTT, Radiologist Verified by advisor advocate angel co founder for DUSTY SCOTT /DUSTY GONZALEZ [facility] Encounter Notes: All associated encounter notes This section contains the clinical notes associated to the Encounter. Date/Time Encounter Note(s) Provider Source Feb 09, 2025 12:07 PM ADDENDUM: LOCAL TITLE: Addendum STANDARD TITLE: ADDENDUM DATE OF NOTE: FEB 09, 2025@12:07:34 ENTRY DATE: FEB 09, 2025@12:07:35 AUTHOR: JUANCARLOS TONEY COSIGNER: URGENCY: STATUS: COMPLETED Covering provider in agreement with telma /katrina Toney APRN HB Nurse Practitioner Signed: 02/09/2025 12:08 Receipt Acknowledged By: 02/09/2025 12:55 /katrina Jung RN, MSN, WOCN [facility] Manager Language --- Original Document --- 02/09/25 HHN PT/OT, SPEECH FOLLOW UP NOTE: Home Health Agency: [facility] Caller: Grayson PT PH.#: [phone] PT requesting recertification for PT services for next home health certification period due to recent fall Frequency: 1wk5 If you are in agreement for recertification of PT services, please concur and notify [facility] Office with view alert. [facility] Office will forward the recertification order to home health agency. /katrina Jung RN, MSN, WOCN [employer] Manager Language Signed: 02/09/2025 11:37 Receipt Acknowledged By: 02/09/2025 12:08 /katrina Toney APRN [facility] Nurse Practitioner for LAURY KENYON 02/09/2025 ADDENDUM STATUS: UNSIGNED You may not VIEW this UNSIGNED Addendum. JUANCARLOS TONEY [facility] Feb 09, 2025 11:34 AM [facility] NOTE: LOCAL TITLE: HHN PT/OT, SPEECH FOLLOW UP NOTE STANDARD TITLE: [facility] NOTE DATE OF NOTE: FEB 09, 2025@11:34 ENTRY DATE: FEB 09, 2025@11:35:11 AUTHOR: ROSANNA JUNG EXP COSIGNER: URGENCY: STATUS: COMPLETED HHN PT/OT, SPEECH FOLLOW UP NOTE Has ADDENDA Home Health Agency: [facility] Caller: Grayson PT PH.#: [phone] PT requesting recertification for PT services for next home health certification period due to recent fall Frequency: 1wk5 If you are in agreement for recertification of PT services, please concur and notify [facility] Office with view alert. [facility] Office will forward the recertification order to home health agency. /angie/ Rosanna Jung RN, MSN, VIVIENNE [facility] Manager Language Signed: 02/09/2025 11:37 Receipt Acknowledged By: 02/09/2025 12:08 /angie/ Juancarlos Toney ALUMINUM SIDING MECHANIC HB Nurse Practitioner for LAURY Makeda KENYON 02/09/2025 ADDENDUM STATUS: COMPLETED Covering provider in agreement with above /es/ Juancarlos Fee ALUMINUM SIDING MECHANIC HB Nurse Practitioner Signed: 02/09/2025 12:08 Receipt Acknowledged By: 02/09/2025 12:55 /angie/ Rosanna Jung RN, MSN, VIVIENNE [employer] Manager Language 02/09/2025 ADDENDUM STATUS: COMPLETED Forwarded the above order to home health agency. /angie/ Rosanna Jung RN, MSN, VIVIENNE [employer] Manager Language Signed: 02/09/2025 12:55 [facility]
--- OUTSIDE RECORDS SUMMARY | 2025-02-10 04:24 | XMS_ITS | Encounter Summary ---
Author Name [facility] [place] Organization [place] Address [address] [place] [address] Care Team Providers Care Audio Production Instructor Name Role Phone LAURY KENYON Primary Care [...] Name Patient's Relationship to Policy Pascual HUMANA CLAIMS/[place] MEDICAL PREFERRED PROVIDER ORGANIZAT ION (PPO) ARELIS ON [employer] Jun 03, 2017 [id number] ROXI WINKLER PATIENT HUMANA [facility] (WNR) MEDICARE ADVANTAGE [facility] (WN) Sep 03, 2019 [id number] ROXI WINKLER JR PATIENT HUMANA [facility] (WNR) MEDICARE ADVANTAGE [facility] (WN) Sep 03, 2019 [id number] [phone] ROXI WINKLERA MCR (WNR) MEDICARE ADVANTAGE HUMAN A INSUR ANCE COM Apr 04, 2019 [id number] ROXI WINKLERA MCR (WNR) MEDICARE ADVANTAGE [facility] (WNR) Apr 03, 2019 [id number] ROXI WINKLERA MCR (WNR) MEDICARE ADVANTAGE MCR (WNR) Apr 03, 2019 [id number] ROXI WINKLERA MCR (WNR) MEDICARE ADVANTAGE MCR (WNR) Apr 03, 2019 [id number] ROXI WINKLER JR PHARMACY PRESCRIPT ION NONE Jun 03, 2017 NONE [id number] ROXI WINKLER MEDICARE PART D (WNR) MEDICARE (M) PART D Sep 03, 2023 PART D [id number] ROXI WINKLER JR PATIENT Selected Encounter This section includes the information on record at [place] for the Encounter. Date/Time Encounter Type Encounter Description Reason Pro vider Source Feb 10, 2025 08:24 AM Outpatient Encounter CLINICAL PHARMACY IHE Encounter Template Text not used by [place] Plan of Treatment: Future Appointments (+ 6 months) and Future Tests (+/- 45 days) The Plan of Treatment section includes future care activities for the patient from all [place] treatmentfacilities. This section includes future appointments and future orders which are active, pending or scheduled. Future Appointments This section includes appointments that were scheduled to occur 6 months from the date of the Encounter, up to a maximum of 20 appointments. The data comes from all [place] treatment facilities. Appointment Date/Time Appointment Type Appointme nt Facility Name Feb 17, 2025 02:00 PM AMBULATORY - SURGERY TAWNY SERRANO [facility] Apr 14, 2025 10:30 AM [facility] Lab Results: +/- 30 days of the encounter This section includes the Chemistry and Hematology Lab Results on record with [place] for the patient. Radiology Reports and Pathology Reports are provided separately, in subsequent sections. Lab Results This section contains the Chemistry/Hematology Results that were resulted 30 days before or 30 daysafter the date of the Encounter. Date/Time Source Result Type Result - Unit Interpretation Reference Range Specimen Type Comment January 15, 2025 10:00 AM [facility] WN DRUG SCREEN EXPANDED IN-HOUSE URINE Specimen [...] January 02, 2025 08:09 AM Reporting Lab: [address] [address] Performing Lab: [place] [id number] TETRAHYDROCANNABINOL SCREEN NEG Cuto ff < 50 [...] < 1 January 14, 2025 12:00 PM [facility] CBC/PLT BLOOD Specimen Type: BLOOD No comment entered. Ordering Provider: LAURY KENYON Report Released Date/Time: January 06, 2025 12:45 PM Reporting Lab: [address] [address] Performing Lab: [address] [address] WBC 11.6 10*3/uL H 5.0-10.0 RBC 4.36 10*6/uL L 4.6-6.2 HGB 12.7 g/dL L 14.0-18.0 HCT 39.9 L 42.0-52.0 MCV 91.5 fL 80.0-94.0 MCH 29.1 pg 27.0-31.0 MCHC 31.8 g/dL L 32.0-36.0 PLT 212 10*3/uL 150-450 MPV 9.9 fL 9.0-13.1 RDW 14.6 11.0-16.0 NRBC 0.0 0.0-0.0 January 14, 2025 12:00 PM [facility] PANEL 1 PLASMA Specimen Type: PLASM A Comment: CRITICAL CALLED TO & READ BACK BY: LAURY CHANTALE 01/14/25@8890 [facility] Estimated Glomerular Filtration Rate [...] January 06, 2025 03:36 PM Reporting Lab: [address] [address] Performing Lab: [address] [address] CREATININE 0.97 mg/dL 0.72-1.25 UREA NITROGEN 15 mg/dL 9-25 GLUCOSE 258 mg/dL H 74-100 SODIUM 138 mmol/L 136-145 POTASSIUM 3.6 mmol/L 3.5-5.1 CHLORIDE 87 mmol/L L 98-107 CO2 46 mmol/L HH 22-29 CALCIUM 8.8 mg/dL 8.4-10.2 ANION GAP 5 meq/L 3-19 eGFR (CKD-EPI) 84 January 14, 2025 12:00 PM [facility] GLYCOHEMOGLOBIN BLOOD Specimen Type: BLOOD Comment: Prediabetes: 5.7%-6.4% Diabetes: >= 6.5% [facility] guidelines for A1c interpretation: Glycemic control targets are based on Shared Decision Making between clinicians and patients. Criteria used to establish an A1c target recommendation can be found at https://www.[place].gov/qualityandpatientsafety/ and include the use of result accuracy [...] 8.73 and 9.27. Ref: https://ngsp.org/CAPdata.asp. The in-house [employer]end[employer] D-100 analyzer has a historical CV <= 2%. Contact the laboratory for further performance characteristics of this assay. Ordering Provider: LAURY KENYON Report Released Date/Time: January 06, 2025 03:36 PM Reporting Lab: [address] [address] Performing Lab: [address] [address] GLYCOHEMOGLOBIN 7.2 H 4.4-5.6 Social History: Smoking Status (Most current) and Tobacco Use (All prior to encounter date) This section includes the most current, and the historical, smoking and tobacco- related health factors from the [place] facility where the Encounter took place. Current Smoking Status This section includes the most current smoking, or tobacco-related health factor, from the [place] facility where the Encounter took place. Date/Time Current Smoking Status Comment Anita ity Sep 06, 2023 10:00 AM VA-TOBACCO NEVER USED [facility] Tobacco Use History This section includes a history of the smoking, or tobacco-related health factors, that were collected on or before the date of the Encounter. The data comes from the [place] facility where the Encounter took place. Date/Time Smoking Status/Tobacco Use Comment aYel acsabas Jun 20, 2022 10:30 AM VA-TOBACCO NEVER USED [facility] Jul 27, 2020 03:22 PM VA-TOBACCO NEVER USED [facility] Jul 19, 2018 11:24 AM VA-TOBACCO NEVER USED [facility] Mar 18, 2018 10:14 AM V9 LIFETIME NON-USER OF TOBACCO [facility] Mar 29, 2017 07:47 AM V9 LIFETIME NON-USER OF TOBACCO [facility] Apr 27, 2016 08:56 AM V9 LIFETIME NON-USER OF TOBACCO [facility] May 27, 2015 09:53 AM V9 LIFETIME NON-USER OF TOBACCO [facility] Jun 29, 2014 02:25 PM V9 LIFETIME NON-USER OF TOBACCO [facility] Feb 10, 2013 02:08 PM V9 LIFETIME NON-USER OF TOBACCO [facility] Mar 19, 2012 09:36 AM V9 LIFETIME NON-USER OF TOBACCO [facility] Dec 13, 2010 10:09 AM V9 LIFETIME NON-USER OF TOBACCO [facility] Aug 13, 2006 09:26 AM V9 LIFETIME NON-USER OF TOBACCO [facility] Apr 24, 2006 02:37 PM HF V9 LIFETIME NON-SMOKER [facility] Advance Directives: All historical and current Section Date Range: From patient's date of to the date document was created. This section includes ALL of a patient's completed or amended [place] Advance and Rescinded Directives. The entries below indicate that a directive exists for the patient, but an actual copy is not included with this document. The data comes from all [place] facilities. Date Advance Directives Provider Source Sep 25, 2024 ADVANCE DIRECTIVE DISCUSSION ANTHONY IRVING [facility] Radiology Reports: +/- 30 days [...] the Encounter. The data comes from all [place] treatment facilities. Date/Time Radiology Report Provider Source January 30, 2025 11:14 AM SHOULDER-LEFT 2 OR MORE VIEWS: JACEKROXI STILL [facility] [id number] -1955 M Exm Date: JANUARY 30, 2025@11:14 Req Phys: LAURY KENYON Loc: [facility] RN HM VST (Req'g Loc) Img Loc: CDD RADIOLOGY Service: [place] [address] (Case [id number] COMPLETE)SHOULDER-LEFT 2 OR MORE VIEWS (RAD Detailed) CPT:04304 Reason for Study: pain Clinical History: Report Status: Verified Date Reported: JANUARY 30, 2025 Date Verified: JANUARY 30, 2025 Apns E-Sig: Report: EXAMINATION: LEFT SHOULDER 2 VIEWS [...] Interpreting Staff: DUSTY SCOTT, Radiologist Verified by garment alteration examiner for DUSTY SCOTT /DUSTY GONZALEZ-CDD [facility] January 30, 2025 10:57 AM U/S ABDOMEN LTD: ROXI WINKLER NANDO [id number] -1955 M Exm Date: JANUARY 30, 2025@10:57 Req Phys: LAURY KENYON Loc: [facility] NET WASHER PHONE (Req'g Loc) Img Loc: ULTRASOUND Service: [place] [address] (Case [id number] COMPLETE)U/S ABDOMEN LTD ([place] Detailed) CPT:24938 Reason for Study: bilateral abdominal hematoma increasing in size Clinical History: Report Status: Verified Date Reported: JANUARY 30, 2025 Date Verified: JANUARY 30, 2025 Apns E-Sig: Report: EXAMINATION: ULTRASOUND THE ABDOMEN LIMITED [...] Interpreting Staff: DUSTY SCOTT, Radiologist Verified by garment alteration examiner for DUSTY SCOTT /DUSTY GONZALEZ-D [facility] Encounter Notes: All associated encounter notes This section contains the clinical notes associated to the Encounter. Date/Time Encounter Note(s) Provider Source Feb 10, 2025 08:24 AM ACCOUNTING OF DISC LOSURES NOTE: LOCAL TITLE: STATE PRESCRIPTION DRUG MONITORING PROGRAM STANDARD TITLE: ACCOUNTING OF DISCLOSURES NOTE DATE OF NOTE: FEB 10, 2025@08:24:19 ENTRY DATE: FEB 10, 2025@08:24:19 AUTHOR: KARI SERRANO EXP COSIGNER: URGENCY: STATUS: COMPLETED This PDMP query was submitted by Kari Serrano [facility]. The clinical justification for this PDMP query is to review controlled substances prescribed outside of the [facility], and any additional information that may become available, as an important component of standard clinical care, and in accordance with [facility] policy. Patient information was shared with the PDMP Appriss [place]. No prescription(s) for controlled substances outside the [facility] were found in the last 90 days. 02/06/2025 4 02/06/2025 Buprenorphine 5 Mcg/hr Patch 4.00 28 Vi Fili [id number] [place] ([id number]) 0 0.12 mg - [place] 01/21/2025 4 01/15/2025 Tramadol Hcl 50 Mg Tablet 120.00 30 Vi Fili [id number] [place] (0086) 0 40.00 [place] - [place] 12/15/2024 4 09/01/2024 Tramadol Hcl 50 Mg Tablet 120.00 30 [place] [id number] [place] (0086) 0 40.00 [place]ME [place] 10/08/2024 4 09/01/2024 Tramadol Hcl 50 Mg Tablet 120.00 30 [place] [id number] [place] ([id number]) 0 40.00 [place] - [place] 09/06/2024 4 09/01/2024 Tramadol Hcl 50 Mg Tablet 120.00 30 [place] [id number] [place] ([id number]) 0 40.00 [place] - [place] 08/13/2024 4 06/23/2024 Tramadol Hcl 50 Mg Tablet 180.00 23 An Fla [id number] [place] (0086) 0 78.26 MME - [place] 07/27/2024 5 07/27/2024 Hydrocodone-Acetamin 5-325 Mg 11.00 3 Ja Cleve E[place] ([id number]) 0 18.33 MME - [place] 06/25/2024 4 06/23/2024 Tramadol Hcl 50 Mg Tablet 180.00 23 An Fla [id number] [place] ([id number]) 0 78.26 [place] - [place] 06/02/2024 4 04/07/2024 Tramadol Hcl 50 Mg Tablet 120.00 30 An Fla [id number] [place] ([id number]) 0 40.00 [place] 04/10/2024 4 04/07/2024 Tramadol Hcl 50 Mg Tablet 120.00 30 An Fla [id number] [place] (0086) 0 40.00 [place] 04/03/2024 5 04/03/2024 Hydrocodone-Acetamin 5-325 Mg 42.00 14 Ge Hun E[place] (3914) 0 15.00 [place]ME - [place] 02/25/2024 4 12/14/2023 Tramadol Hcl 50 Mg Tablet 120.00 30 La [place]oo [id number] [place] ([id number]) 0 40.00 [place] 01/23/2024 4 12/14/2023 Tramadol Hcl 50 Mg Tablet 120.00 30 [place] [id number] [place] ([id number]) 0 40.00 [place] 12/19/2023 4 12/14/2023 Tramadol Hcl 50 Mg Tablet 120.00 30 [place] [id number] [place] ([id number]) 0 40.00 [place] 10/29/2023 4 08/07/2023 Tramadol Hcl 50 Mg Tablet 120.00 30 [place] [id number] [place] ([id number]) 0 40.00 [place] 09/25/2023 3 09/25/2023 Oxycodone Hcl (Ir) 5 Mg Tablet 40.00 6 Da Det [id number] [facility] ([id number]) 0 50.00 [place] - [place] 09/19/2023 2 08/07/2023 Tramadol Hcl 50 Mg Tablet 120.00 30 [place] [id number] [place] ([id number]) 0 40.00 [place] 08/09/2023 2 08/07/2023 Tramadol Hcl 50 Mg Tablet 120.00 30 [place] [id number] [place] ([id number]) 0 40.00 [place] 06/15/2023 1 04/16/2023 Tramadol Hcl 50 Mg Tablet 120.00 30 [place] [id number] [place] (0086) 0 40.00 [place]ME - [place] 05/10/2023 1 04/16/2023 Tramadol Hcl 50 Mg Tablet 120.00 30 [place] [id number] [place] (0086) 0 40.00 [place]ME [place] 04/18/2023 1 04/16/2023 Tramadol Hcl 50 Mg Tablet 120.00 30 [place] [id number] [place] (0086) 0 40.00 MME - [place] 03/01/2023 1 12/27/2022 Tramadol Hcl 50 Mg Tablet 120.00 30 [place] [id number] [place] (0086) 0 40.00 MME - [place] /angie/ Kari Serrano, PharmD, BCPS Clinical Word Processing Specialist, Pain Management Signed: 02/10/2025 08:24 KARI SERRANO-MAURA [facility]
--- OUTSIDE RECORDS SUMMARY | 2025-02-10 06:05 | XMS_ITS | Encounter Summary ---
Author Name [facility] [place] [facility] [place] Address [address] [place] [address] Care Team Providers Care Snow Technician Name Role Phone LAURY KENYON Primary [...] PREFERRED PROVIDER ORGANIZAT AXEL (PPO) ARELIS ON [email or web address] LADY VARELA Jun 03, 2017 [id number] ROXI WINKLER PATIENT [employer] MCR (WNR) MEDICARE ADVANTAGE [facility] (WNR) Sep 03, 2019 [id number] ROXI WINKLER JR PATIENT [employer] MCR (WNR) MEDICARE ADVANTAGE MCR (WNR) Sep 03, 2019 [id number] ROXI WINKLER MCR (WNR) MEDICARE ADVANTAGE HUMAN A INSUR ANCE COM Apr 04, 2019 [id number] ROXI WINKLER MCR (WNR) MEDICARE ADVANTAGE [facility] (WNR) Apr 03, 2019 [id number] ROXI WINKLERA MCR (WNR) MEDICARE ADVANTAGE MCR (WNR) Apr 03, 2019 [id number] ROXI WINKLER MCR (WNR) MEDICARE ADVANTAGE MCR (WNR) Apr 03, 2019 [id number] ROXI WINKLER JR PHARMACY PRESCRIPT ION NONE Jun 03, 2017 NONE [id number] ROXI WINKLER MEDICARE PART D (WNR) MEDICARE (M) PART D Sep 03, 2023 PART D [id number] ROXI WINKLER JR PATIENT Selected Encounter This section includes the information on record at [place] for the Encounter. Date/Time Encounter Type Encounter Description Reason Provider Source Feb 10, 2025 10:05 AM PH1 ASSMT&MGMT NQHP 5-10 TELEPHONE [facility] ICD-10-CM G89.4 Chronic pain syndrome SHIMON SINCLAIR Adela Encounter Template Text not used by [place] Assessments - Encounter Diagnoses This section includes the primary and secondary diagnoses documented for the Encounter. Date/Time Primary/Secondary Diagnosis Diagnosis Name Provider Source Feb 10, 2025 10:05 AM PRIMARY Chronic pain syndrome SHIMON SINCLAIR-Yancy [facility] Plan of Treatment: Future Appointments (+ [...] PM AMBULATORY - SURGERY TAWNY SERRANO [facility] Apr 14, 2025 10:30 AM AMBULATORY - MEDICINE [facility] Lab Results: +/- 30 days of the encounter This section includes the Chemistry and Hematology Lab Results on record with [place] for the patient. Radiology Reports and Pathology Reports are provided separately, in subsequent sections. Lab Results This section contains the Chemistry/Hematology Results that were resulted 30 days before or 30 daysafter the date of the Encounter. Date/Time Source Result Type Result - Unit Interpretation Reference Range Specimen Type Comment January 15, 2025 10:00 AM [facility] WN DRUG SCREEN EXPANDED IN-HOUSE URINE [...] January 02, 2025 08:09 AM Reporting Lab: [address] [address] Performing Lab: [address] [address] TETRAHYDROCANNABINOL SCREEN NEG Cuto ff < 50 [...] < 1 January 14, 2025 12:00 PM [facility] CBC/PLT BLOOD Specimen Type: BLOOD No comment entered. Ordering Provider: LAURY KENYON Report Released Date/Time: January 06, 2025 12:45 PM Reporting Lab: [address] [address] Performing Lab: [place] [address] [facility] [address] WBC 11.6 10*3/uL H 5.0-10.0 RBC 4.36 10*6/uL L 4.6-6.2 HGB 12.7 g/dL L 14.0-18.0 HCT 39.9 L 42.0-52.0 MCV 91.5 fL 80.0-94.0 MCH 29.1 pg 27.0-31.0 MCHC 31.8 g/dL L 32.0-36.0 PLT 212 10*3/uL 150-450 MPV 9.9 fL 9.0-13.1 RDW 14.6 11.0-16.0 NRBC 0.0 0.0-0.0 January 14, 2025 12:00 PM [facility] Specimen Type: PLASM A Comment: CRITICAL CALLED TO & READ BACK BY: LAURY KENYON 01/14/25@154[facility] Estimated Glomerular Filtration Rate (eGFR) calculated using [...] January 06, 2025 03:36 PM Reporting Lab: [address] [address] Performing Lab: [address] [address] CREATININE 0.97 mg/dL 0.72-1.25 UREA NITROGEN 15 mg/dL 9-25 GLUCOSE 258 mg/dL H 74-100 SODIUM 138 mmol/L 136-145 POTASSIUM 3.6 mmol/L 3.5-5.1 CHLORIDE 87 mmol/L L 98-107 CO2 46 mmol/L HH 22-29 CALCIUM 8.8 mg/dL 8.4-10.2 ANION GAP 5 meq/L 3-19 eGFR (CKD-EPI) 84 January 14, 2025 12:00 PM [facility] GLYCOHEMOGLOBIN BLOOD Specimen Type: BLOOD Comment: Prediabetes: 5.7%-6.4% Diabetes: >= 6.5% [facility] guidelines for A1c interpretation: Glycemic control targets are based on Shared Decision Making between clinicians and patients. Criteria used to establish an A1c target recommendation can be found at https://www.ut.gov/qualityandpatientsafety/ and include the use of result accuracy [...] 8.73 and 9.27. Ref: https://ngsp.org/CAPdata.asp. The in-house [employer] D-100 analyzer has a historical CV <= 2%. Contact the laboratory for further performance characteristics of this assay. Ordering Provider: LAURY KENYON Report Released Date/Time: January 06, 2025 03:36 PM Reporting Lab: [facility] [address] [facility] [address] Performing Lab: [facility] [address] [facility] [address] GLYCOHEMOGLOBIN 7.2 H 4.4-5.6 Social History: Smoking [...] the Encounter. The data comes from all [place] treatment facilities. Date/Time Radiology Report Provider Source January 30, 2025 11:14 AM SHOULDER-LEFT 2 OR MORE VIEWS: ROXI WINKLER [facility] [id number] -1955 M Exm Date: JANUARY 30, 2025@11:14 Req Phys: CHANTALELAURY Pat Loc: [place] [facility] RN HM VST (Req'g Loc) Img Loc: CDD RADIOLOGY Service: [place] [address] (Case [id number] COMPLETE)SHOULDER-LEFT 2 OR MORE VIEWS (RAD Detailed) CPT:69524 Reason for Study: pain Clinical History: Report Status: Verified Date Reported: JANUARY 30, 2025 Date Verified: JANUARY 30, 2025 Inserting Press Operator E-Sig: Report: EXAMINATION: LEFT SHOULDER 2 VIEWS [...] Primary Interpreting Staff: Beatrice BELL Verified by detective homicide squad for DUSTY SCOTT /DUSTY GONZALEZ [facility] January 30, 2025 10:57 AM U/S ABDOMEN LTD: ROXI WINKLER [id number] -1955 M Exm Date: JANUARY 30, 2025@10:57 Req Phys: LAURY KENYON Pat Loc: [place] [facility] PEDIATRIC PHYSICIAN PHONE (Req'g Loc) Img Loc: ULTRASOUND Service: [place] [address] (Case [id number] COMPLETE)U/S ABDOMEN LTD ([place] Detailed) CPT:81218 Reason for Study: bilateral abdominal hematoma increasing in size Clinical History: Report Status: Verified Date Reported: JANUARY 30, 2025 Date Verified: JANUARY 30, 2025 Inserting Press Operator E-Sig: Report: EXAMINATION: ULTRASOUND THE ABDOMEN LIMITED [...] Interpreting Staff: DUSTY SCOTT Radiologist Verified by detective homicide squad for DUSTY SCOTT /DUSTY GONZALEZYancy [facility] Encounter Notes: All associated encounter notes This section contains the clinical notes associated to the Encounter. Date/Time Encounter Note(s) Provider Source Feb 10, 2025 10:08 AM [facility] MEDICATION MG T NOTE: LOCAL TITLE: [facility] NEW MEDICATION EDUCATION NOTE STANDARD TITLE: [facility] MEDICATION MGT NOTE DATE OF NOTE: FEB 10, 2025@10:08 ENTRY DATE: FEB 10, 2025@10:08:17 AUTHOR: SHIMON SINCLAIR EXP COSIGNER: URGENCY: STATUS: COMPLETED New Medication Education. Patient's medications are managed by: Self/Caregiver Patient currently uses the following to help manage medications: Medication Organizers (Pill Boxes) New Medication Education Indicated: new medication(s) started since last [facility] visit where medication reconciliation was performed or at this visit. Name of new medication(s): Butrans Patch 5 mg. Education provided to patient/caregiver for new medication(s) provided based on individual needs, regarding the following: - Medication(s) name, type and reason for use. yes - How to administer the medication (including process, time, frequency, route, dose). yes - Anticipated action & potential adverse effects. yes - How to monitor the effects of the medication. yes Medication handout provided for prescription medication(s) at the time of dispensing. yes Other specific instructions provided: yes-pply a new patch every 7 days on the same time of the day, rotating sites every week. Did patient/caregiver understand medication education provided? Yes Verbalized understanding yes /angie/ SHIMON SINCLAIR RN Signed: 02/10/2025 10:09 SHIMON SINCLAIR [facility] Feb 10, 2025 10:05 AM TELEPHONE ENCOUNTE R NOTE: LOCAL TITLE: [facility] TELEPHONE NOTE STANDARD TITLE: TELEPHONE ENCOUNTER NOTE DATE OF NOTE: FEB 10, 2025@10:05 ENTRY DATE: FEB 10, 2025@10:05:57 AUTHOR: SHIMON SINCLAIR EXP COSIGNER: URGENCY: STATUS: COMPLETED Time spent on phone call: 5 min Called and spoke with daughter who take care of patient's medications and discussed the following regarding the new prescription for Butrans Patch 5 mg. [...] goal of weaning you off the tramadol. Daughter Yobani voicded understanding and agreement of the above- /angie/ SHIMON SINCLAIR RN Signed: 02/10/2025 10:07 SHIMON SINCLAIR-Yancy [facility]
--- OUTSIDE RECORDS SUMMARY | 2025-02-12 05:35 | XMS_ITS | Encounter Summary ---
Author Name [facility] [place] [facility] [place] [facility] [place] Address [address] [place] [address] Care Team Providers Care Trim Die Maker Name Role Phone LAURY KENYON Primary Care Provider Unavailab SHIMON Alex Unavailable Unavailable RICK FREEMAN Unavailable Unavailable REEAM BENDER Unavailable Unavailable NATASHA PICKENS Unavailable Unavailable [...] PREFERRED PROVIDER ORGANIZAT AXEL (PPO) ARELIS ON [employer] LADY VARELA Jun 03, 2018 [id number] ROXI WINKLER PATIENT [employer] MCR (WNR) MEDICARE ADVANTAGE [facility] (WNR) Sep 03, 2019 [id number] ROXI WINKLER JR PATIENT [employer] MCR (WNR) MEDICARE ADVANTAGE MCR (WNR) Sep 03, 2019 [id number] [phone] ROXI WINKLER MCR (WNR) MEDICARE ADVANTAGE HUMAN A INSUR ANCE COM Apr 04, 2019 [id number] ROXI WINKLER MCR (WNR) MEDICARE ADVANTAGE [facility] (WNR) Apr 03, 2019 [id number] ROXI WINKLERA MCR (WNR) MEDICARE ADVANTAGE MCR (WNR) Apr 03, 2019 [id number] ROXI WINKLER MCR (WNR) MEDICARE ADVANTAGE [facility] (WNR) Apr 03, 2019 [id number] ROXI WINKLER JR PHARMACY PRESCRIPT ION NONE Jun 03, 2017 NONE [id number] [phone] ROXI WINKLER MEDICARE PART D (WNR) MEDICARE (M) PART D Sep 03, 2023 PART D [id number] ROXI WINKLER JR PATIENT Selected Encounter This section includes the information on record at [place] for the Encounter. Date/Time Encounter Type Encounter Description Reason Provider Source Feb 12, 2025 09:35 AM PH1 ASSMT&MGMT NQHP 5-10 TELEPHONE [facility] ICD-10-CM G89.4 Chronic pain syndrome SHIMON SINCLAIR Adela Encounter Template Text not used by [place] Assessments - Encounter Diagnoses This section includes the primary and secondary diagnoses documented for the Encounter. Date/Time Primary/Secondary Diagnosis Diagnosis Name Provider Source Feb 12, 2025 09:35 AM PRIMARY Chronic pain syndrome SHIMON SINCLAIR-Yancy [facility] Plan of Treatment: Future Appointments (+ [...] - SURGERY TAWNY SERRANO [facility] Apr 14, 2025 10:30 AM AMBULATORY - MEDICINE [facility] Lab Results: +/- 30 days of the encounter This section includes the Chemistry and Hematology Lab Results on record with [place] for the patient. Radiology Reports and Pathology Reports are provided separately, in subsequent sections. Lab Results This section contains the Chemistry/Hematology Results that were resulted 30 days before or 30 daysafter the date of the Encounter. Date/Time Source Result Type Result - Unit Interpretation Reference Range Specimen Type Comment January 15, 2025 10:00 AM [facility] WN DRUG SCREEN EXPANDED IN-HOUSE URINE [...] January 02, 2025 08:09 AM Reporting Lab: [address] [address] Performing Lab: [address] [address] TETRAHYDROCANNABINOL SCREEN NEG Cuto ff < 50 [...] < 1 January 14, 2025 12:00 PM [facility] CBC/PLT BLOOD Specimen Type: BLOOD No comment entered. Ordering Provider: LAURY KENYON Report Released Date/Time: January 06, 2025 12:45 PM Reporting Lab: [address] [address] Performing Lab: [place] [address] [facility] [address] WBC 11.6 10*3/uL H 5.0-10.0 RBC 4.36 [...] TO & READ BACK BY: LAURY KENYON 01/14/25@154[facility] Estimated Glomerular Filtration Rate (eGFR) calculated [...] January 06, 2025 03:36 PM Reporting Lab: [address] [address] Performing Lab: [address] [address] CREATININE 0.97 mg/dL 0.72-1.25 UREA NITROGEN 15 mg/dL 9-25 GLUCOSE 258 mg/dL H 74-100 SODIUM 138 mmol/L 136-145 POTASSIUM 3.6 mmol/L 3.5-5.1 CHLORIDE 87 mmol/L L 98-107 CO2 46 mmol/L HH 22-29 CALCIUM 8.8 mg/dL 8.4-10.2 ANION GAP 5 meq/L 3-19 eGFR (CKD-EPI) 84 January 14, 2025 12:00 PM [facility] GLYCOHEMOGLOBIN BLOOD Specimen Type: BLOOD Comment: Prediabetes: 5.7%-6.4% Diabetes: >= 6.5% [facility] guidelines for A1c interpretation: Glycemic [...] 8.73 and 9.27. Ref: https://ngsp.org/CAPdata.asp. The in-house [employer] D-100 analyzer has a historical CV <= 2%. Contact the laboratory for further performance characteristics of this assay. Ordering Provider: LAURY KENYON Report Released Date/Time: January 06, 2025 03:36 PM Reporting [facility]: [facility] [address] [facility] [address] Performing Lab: [facility] [address] [facility] [address] GLYCOHEMOGLOBIN 7.2 H 4.4-5.6 Social History: Smoking [...] the Encounter. The data comes from all [place] treatment facilities. Date/Time Radiology Report Provider Source January 30, 2025 11:14 AM SHOULDER-LEFT 2 OR MORE VIEWS: ROXI WINKLER [facility] [id number] -1955 M Exm Date: JANUARY 30, 2025@11:14 Req Phys: CHANTALELAURY Pat Loc: [place] [facility] RN HM VST (Req'g Loc) Img Loc: CDD RADIOLOGY Service: [place] [address] (Case [id number] COMPLETE)SHOULDER-LEFT 2 OR MORE VIEWS (RAD Detailed) CPT:29978 Reason for Study: pain Clinical History: Report Status: Verified Date Reported: JANUARY 30, 2025 Date Verified: JANUARY 30, 2025 Performance Architect E-Sig: Report: EXAMINATION: LEFT SHOULDER 2 VIEWS [...] Primary Interpreting Staff: Beatrice BELL Verified by clinical informatics strategist for DUSTY SCOTT /DUSTY GONZALEZ [facility] January 30, 2025 10:57 AM U/S ABDOMEN LTD: ROXI WINKLER [id number] -1955 M Exm Date: JANUARY 30, 2025@10:57 Req Phys: LAURY KENYON Pat Loc: [place] [facility] BILINGUAL RESEARCH INTERVIEWER PHONE (Req'g Loc) Img Loc: ULTRASOUND Service: [place] [address] (Case [id number] COMPLETE)U/S ABDOMEN LTD ([place] Detailed) CPT:90157 Reason for Study: bilateral abdominal hematoma increasing in size Clinical History: Report Status: Verified Date Reported: JANUARY 30, 2025 Date Verified: JANUARY 30, 2025 Performance Architect E-Sig: Report: EXAMINATION: ULTRASOUND THE ABDOMEN LIMITED [...] Interpreting Staff: DUSTY SCOTT Radiologist Verified by clinical informatics strategist for DUSTY SCOTT /DUSTY GONZALEZYancy [facility] Encounter Notes: All associated encounter notes This section contains the clinical notes associated to the Encounter. Date/Time Encounter Note(s) Provider Source Feb 12, 2025 01:19 PM ADDENDUM: LOCAL TITLE: Addendum STANDARD TITLE: ADDENDUM DATE OF NOTE: FEB 12, 2025@13:19:40 ENTRY DATE: FEB 12, 2025@13:19:41 AUTHOR: YASHIRA MCCLURE EXP COSIGNER: URGENCY: STATUS: COMPLETED Covering PCP will alert PCP upon her return to request. /katrina PARKER Signed: 02/12/2025 13:20 Receipt Acknowledged By: 02/12/2025 15:32 /angie/ SHIMON SINCLAIR RN === --- Original Document --- 02/12/25 [facility] TELEPHONE NOTE: Time spent on phone call: 5 min Patient's daughter called to discuss veterans pain-she stated they are using the Butrans Patch 5 mg but she is still having to give him the tramdol three times a day=he had a fall on sunday and had to go to the local ED-he started the patch Sunday- daughter stated she thinks the patch will probably need to be increased-however she and patient are very interested in using pain ultra sound to attempt to get his pain under control- She stated that she has talked with Brennan Lugo who works for [employer] and who provides these for the veterans-[place] has a contract with them- Brennan's cell number is [phone]- Advised would send to provider- /katrina SINCLAIR RN Signed: 02/12/2025 09:43 Receipt Acknowledged By: 02/12/2025 13:19 /katrina PARKER for LAURY KENYON ELVIA MCCLURE-MAURA [facility] Feb 12, 2025 09:35 AM TELEPHONE ENCOUNTE R NOTE: LOCAL TITLE: [facility] TELEPHONE NOTE STANDARD TITLE: TELEPHONE ENCOUNTER NOTE DATE OF NOTE: FEB 12, 2025@09:35 ENTRY DATE: FEB 12, 2025@09:35:36 AUTHOR: SHIMON SINCLAIR EXP COSIGNER: URGENCY: STATUS: COMPLETED [facility] TELEPHONE NOTE Has ADDENDA Time spent on phone call: 5 min Patient's daughter called to discuss veterans pain-she stated they are using the Butrans Patch 5 mg but she is still having to give him the tramdol three times a day=he had a fall on sunday and had to go to the local ED-he started the patch Sunday- daughter stated she thinks the patch will probably need to be increased-however she and patient are very interested in using pain ultra sound to attempt to get his pain under control- She stated that she has talked with Brennan Lugo who works for [employer] and who provides these for the veterans-[place] has a contract with them- Brennan's cell number is [phone]- Advised would send to provider- /angie/ SHIMON SINCLAIR RN Signed: 02/12/2025 09:43 Receipt Acknowledged By: 02/12/2025 13:19 /katrina PARKER for LAURY KENYON 02/12/2025 ADDENDUM STATUS: COMPLETED Covering PCP will alert PCP upon her return to request. /katrina PARKER Signed: 02/12/2025 13:20 Receipt Acknowledged By: * AWAITING SIGNATURE * SHIMON SINCLAIR [facility] [place]
--- OUTSIDE RECORDS SUMMARY | 2025-02-13 12:08 | XMS_ITS ---
Author Name [facility] [place] Address [address] [place] [address] Care Team Providers Care Environmental Resource Specialist Name Role Phone LAURY KENYON Primary Care [...] ON [employer] Jun 03, 2017 [id number] ROXI WINKLER PATIENT [employer]MANA [facility] (WNR) MEDICARE ADVANTAGE [facility] (WNR) Sep 03, 2019 [id number] ROXI WINKLER JR PATIENT [employer] [facility] (WNR) MEDICARE ADVANTAGE [facility] (WNR) Sep 03, 2019 [id number] ROXI WINKLERA MCR (WNR) MEDICARE ADVANTAGE HUMAN A INSUR ANCE COM Apr 04, 2019 [id number] ROXI WINKLERA MCR (WNR) MEDICARE ADVANTAGE [facility] (WNR) Apr 03, 2019 [id number] ROXI WINKLERA MCR (WNR) MEDICARE ADVANTAGE MCR (WNR) Apr 03, 2019 [id number] ROXI WINKLERA MCR (WNR) MEDICARE ADVANTAGE [facility] (WNR) Apr 03, 2019 [id number] ROXI WINKLER JR PHARMACY PRESCRIPT ION NONE Jun 03, 2017 NONE [id number] ROXI WINKLER MEDICARE PART D ([place]) MEDICARE (M) PART D Sep 03, 2023 PART D [id number] ROXI WINKLER JR PATIENT Selected Encounter This section includes the information on record at [place] for the Encounter. Date/Time Encounter Type Encounter Description Reason Pro vider Source Feb 13, 2025 04:08 PM Outpatient Encounter ADMIN PAT ACTIVTIES (MASNONCT) IHE Encounter Template Text not used by [place] Plan of Treatment: Future Appointments (+ 6 months) and Future Tests (+/- 45 days) The Plan of Treatment section includes future care activities for the patient from all [place] treatmentfacilities. This section includes future appointments and future orders which are active, pending or scheduled. Future Appointments This section includes appointments that were scheduled to occur 6 months from the date of the Encounter, up to a maximum of 20 appointments. The data comes from all [place] treatment facilities. Appointment Date/Time Appointment Type Appointme nt Facility Name Feb 17, 2025 02:00 PM AMBULATORY - SURGERY TAWNY SERRANO [facility] Apr 14, 2025 10:30 AM [facility] Lab Results: +/- 30 days of the encounter This section includes the Chemistry and Hematology Lab Results on record with [place] for the patient. Radiology Reports and Pathology Reports are provided separately, in subsequent sections. Lab Results This section contains the Chemistry/Hematology Results that were resulted 30 days before or 30 daysafter the date of the Encounter. Date/Time Source Result Type Result - Unit Interpretation Reference Range Specimen Type Comment January 15, 2025 10:00 AM [facility] WN DRUG SCREEN EXPANDED IN-HOUSE URINE [...] January 02, 2025 08:09 AM Reporting Lab: [address] [id number] Performing Lab: [address] [id number] TETRAHYDROCANNABINOL SCREEN NEG Cuto ff < 50 [...] FENTANYL SCREEN IN-HOUSE NEG Cutoff < 1 Social History: Smoking Status (Most current) and Tobacco Use (All prior to encounter date) This section includes the most current, and the historical, smoking and tobacco- related health factors from the [facility] where the Encounter took place. Current Smoking Status This section includes the most current smoking, or tobacco-related health factor, from the [place] facility where the Encounter took place. Date/Time Current Smoking Status Comment Anita bartholomew May 05, 2016 01:12 AM NON-TOBACCO USE INPATIENT [facility] Tobacco Use History This section includes a history of the smoking, or tobacco-related health factors, that were collected on or before the date of the Encounter. The data comes from the [place] facility where the Encounter took place. Date/Time Smoking Status/Tobacco Use Comment F acility Nov 24, 2015 04:48 PM NON-TOBACCO USE INPATIENT [facility] Oct 01, 2014 07:15 PM NON-TOBACCO USE INPATIENT [facility] Apr 10, 2005 01:20 PM HF V9 LIFETIME NON-SMOKER [facility] Nov 24, 2003 03:11 PM HF V9 LIFETIME NON-SMOKER [facility] Oct 07, 2002 02:26 PM HF V9 LIFETIME NON-SMOKER [facility] Advance Directives: All historical and current Section Date Range: From patient's date of to the date document was created. This section includes ALL of a patient's completed or amended [place] Advance and Rescinded Directives. The entries below indicate that a directive exists for the patient, but an actual copy is not included with this document. The data comes from all [place] facilities. Date Advance Directives Provider Source Sep 25, 2024 ADVANCE DIRECTIVE DISCUSSION ANTHONY IRVING [facility] Radiology Reports: +/- 30 days of [...] the Encounter. The data comes from all [place] treatment facilities. Date/Time Radiology Report Provider Source January 30, 2025 11:14 AM SHOULDER-LEFT 2 OR MORE VIEWS: ROXI WINKLER [facility] [id number] -1955 M Exm Date: JANUARY 30, 2025@11:14 Req Phys: LAURY KENYON Loc: [place] [facility] RN HM VST (Req'g Loc) Img Loc: CDD RADIOLOGY Service: [place] [address] (Case [id number] COMPLETE)SHOULDER-LEFT 2 OR MORE VIEWS (RAD Detailed) CPT:46165 Reason for Study: pain Clinical History: Report Status: Verified Date Reported: JANUARY 30, 2025 Date Verified: JANUARY 30, 2025 Recyclable Products Sorter E-Sig: Report: EXAMINATION: LEFT SHOULDER 2 VIEWS [...] Interpreting Staff: DUSTY SCOTT Radiologist Verified by production line for DUSTY SCOTT /[facility]Y [facility] January 30, 2025 10:57 AM U/S ABDOMEN LTD: ROXI WINKLER NANDO [id number] -1955 M Exm Date: JANUARY 30, 2025@10:57 Req Phys: LAURY KENYON Loc[place] [facility] INFORMATION ASSISTANT PHONE (Req'g Loc) Img Loc: ULTRASOUND Service: [place] [address] (Case [id number] COMPLETE)U/S ABDOMEN LTD (US Detailed) CPT:66516 Reason for Study: bilateral abdominal hematoma increasing in size Clinical History: Report Status: Verified Date Reported: JANUARY 30, 2025 Date Verified: JANUARY 30, 2025 Recyclable Products Sorter E-Sig: Report: EXAMINATION: ULTRASOUND THE ABDOMEN LIMITED [...] Interpreting Staff: DUSTY SCOTT, Radiologist Verified by production line for DUSTY SCOTT /[facility]Z-[facility] Encounter Notes: All associated encounter notes This section contains the clinical notes associated to the Encounter. Date/Time Encounter Note(s) Provider Source Feb 13, 2025 04:08 PM ADMINISTRATIVE NOT E: LOCAL TITLE: CCC: SCHEDULING ADMINISTRATION STANDARD TITLE: ADMINISTRATIVE NOTE DATE OF NOTE: FEB 13, 2025@16:08:46 ENTRY DATE: FEB 13, 2025@16:08:47 AUTHOR: LIONEL GORDON EXP COSIGNER: URGENCY: STATUS: COMPLETED CCC: SCHEDULING ADMINISTRATION Has ADDENDA Caller Verification Call Back Number: [phone] Emergency Contact: PETAR CATHI Caller/Recipient Relation to Patient: Other If Other Describe Relation to Patient: PT with [employer] Caller Name: Grayson Administrative Administrative Note Reason: Other Administrative Note Comments: Grayson with PT Home [facility] is calling stating pt had a fall on Sunday and was seen at [facility], with no fractures, He states he needs nursing orders for wound care on pt Left foot and his sacrum . IMPORTANT: This note was created by [facility] Clinical Contact Center staff. Please do not alert the staff member by adding them as a signer for future communications. Alerts are not monitored by this user. /angie/ LIONEL GORDON Vision Impaired Teacher, Telephone Care Signed: 02/13/2025 16:08 Receipt Acknowledged By: 02/13/2025 16:24 /angie/ Nette Doe RN [facility] SHIELD CLEANER 02/13/2025 ADDENDUM STATUS: COMPLETED Call back number not a good number. [facility] RNCM contacted. She f/u with pt's daughter. /angie/ Nette Doe RN [facility] SHIELD CLEANER Signed: 02/13/2025 16:31 02/13/2025 ADDENDUM STATUS: COMPLETED Called and spoke with daughter-she is agreeable with the PT that patient needs skilled nurse in to do wound care. /angie/ SHIMON SINCLAIR RN Signed: 02/13/2025 16:48 02/13/2025 ADDENDUM STATUS: COMPLETED Daughter called back and stated she would let us know on Sunday if he needs the nurse- /katrina SINCLAIR RN Signed: 02/13/2025 16:50 LIONEL GORDON-[facility]
--- OUTSIDE RECORDS SUMMARY | 2025-02-18 05:03 | XMS_ITS ---
Author Name [facility] [place] Address [address] [place] [address] Care Team Providers Care Social Scientist Name Role Phone LAURY KENYON Primary Care [...] [employer] Jun 03, 2017 [id number] ROXI WINKLER PATIENT [employer] [facility] (WNR) MEDICARE ADVANTAGE [facility] (WNR) Sep 03, 2019 [id number] ROXI WINKLER JR PATIENT [employer] [facility] (WNR) MEDICARE ADVANTAGE [facility] (WNR) Sep 03, 2019 [id number] ROXI WINKLER [employer] MCR (WNR) MEDICARE ADVANTAGE HUMAN A INSUR ANCE COM Apr 04, 2019 [id number] ROXI WINKLER [employer] MCR (WNR) MEDICARE ADVANTAGE [facility] (WNR) Apr 03, 2019 [id number] ROXI WINKLER [employer] MCR (WNR) MEDICARE ADVANTAGE MCR (WNR) Apr 03, 2019 [id number] ROXI WINKLER [employer] MCR (WNR) MEDICARE ADVANTAGE MCR (WNR) Apr 03, 2019 [id number] ROXI WINKLER JR PHARMACY PRESCRIPT ION NONE Jun 03, 2017 NONE [id number] ROXI WINKLER MEDICARE PART D ([place]) MEDICARE ([place]) PART D Sep 03, 2023 PART D [id number] [phone] ROXI WINKLER JR PATIENT Selected Encounter This section includes the information on record at [place] for the Encounter. Date/Time Encounter Type Encounter Description Reason Pro vider Source Feb 18, 2025 09:03 AM Outpatient Encounter ADMIN PAT [...] Date/Time Appointment Type Appointme nt Facility Name Apr 14, 2025 10:30 AM AMBULATORY - MEDICINE [facility]O A[facility]ER[facility] Social History: Smoking Status (Most current) and Tobacco Use (All prior to encounter date) This section includes the most current, and the historical, smoking and tobacco- related health factors from the [facility] facility where the [facility]counter took place. Current Smoking Status This section includes the most current smoking, or tobacco-related health factor, from the [facility] facility where the Encounter took place. Date/Time [...] DISCUSSION ANTHONY IRVING [facility] Radiology Reports: +/- 30 [...] SHOULDER-LEFT 2 OR MORE VIEWS: ROXI WINKLER [id number] -1955 M Exm Date: JANUARY 30, 2025@11:14 Req Phys: LAURY KENYON Loc: [facility] [facility] RN HM VST (Req'g Loc) Img Loc: CDD RADIOLOGY Service: [place] [address] (Case [id number] COMPLETE)SHOULDER-LEFT 2 OR MORE VIEWS (RAD Detailed) CPT:82639 Reason for Study: pain Clinical History: Report Status: Verified Date Reported: JANUARY 30, 2025 Date Verified: JANUARY 30, 2025 Project Estimator E-Sig: Report: EXAMINATION: LEFT SHOULDER 2 VIEWS [...] Interpreting Staff: DUSTY SCOTT, Radiologist Verified by music publicist for DUSTY SCOTT /D[facility]Y [facility] January 30, 2025 10:57 AM U/S ABDOMEN LTD: JACEKCHEKOROXI NANDO [id number] -1955 M Exm Date: JANUARY 30, 2025@10:57 Req Phys: LAURY KENYON Loc: [facility] GUARD LIEUTENANT PHONE (Req'g Loc) Img Loc: ULTRASOUND Service: [place] [address] (Case [id number] COMPLETE)U/S ABDOMEN LTD (US Detailed) CPT:37517 Reason for Study: bilateral abdominal hematoma increasing in size Clinical History: Report Status: Verified Date Reported: JANUARY 30, 2025 Date Verified: JANUARY 30, 2025 Project Estimator E-Sig: Report: EXAMINATION: ULTRASOUND THE ABDOMEN LIMITED [...] Interpreting Staff: DUSTY SCOTT, Radiologist Verified by music publicist for DUSTY SCOTT /DUSTY GONZALEZYancy [facility] Encounter Notes: All associated encounter notes This section contains the clinical notes associated to the Encounter. Date/Time Encounter Note(s) Provider Source Feb 09, 2025 09:03 AM NONVA NOTE: LOCAL TITLE: OUTSIDE MEDICAL RECORD-FEE OUTPATIENT STANDARD TITLE: NONVA NOTE DATE OF NOTE: FEB 09, 2025@09:03 ENTRY DATE: FEB 18, 2025@09:03:15 AUTHOR: JAXSON REYES EXP COSIGNER: URGENCY: STATUS: COMPLETED The scanned image may be viewed in [email or web address]. /angie/ JAXSON REYES AIRCRAFT NAVIGATOR Signed: 02/18/2025 09:03 [facility]
--- OUTSIDE RECORDS SUMMARY | 2025-02-18 07:10 | XMS_ITS | Encounter Summary ---
Author Name [facility] [place] Organization [facility] [place] Address [address] [place] [address] Care Team Providers Care Assistant Store Manager Name Role Phone LAURY KENYON Primary [...] ON [employer] Jun 03, 2017 [id number] ROXI WINKLER PATIENT [employer] [facility] (WNR) MEDICARE ADVANTAGE [facility] (WN) Sep 03, 2019 [id number] ROXI WINKLER JR PATIENT [employer] [facility] (WNR) MEDICARE ADVANTAGE [facility] (WNR) Sep 03, 2019 [id number] ROXI WINKLERA MCR (WNR) MEDICARE ADVANTAGE HUMAN A INSUR ANCE COM Apr 04, 2019 [id number] ROXI WINKLERA MCR (WNR) MEDICARE ADVANTAGE [facility] (WNR) Apr 03, 2019 [id number] ROXI WINKLERA MCR (WNR) MEDICARE ADVANTAGE [facility] (WNR) Apr 03, 2019 [id number] ROXI WINKLERA MCR (WNR) MEDICARE ADVANTAGE [facility] (WNR) Apr 03, 2019 [id number] ROXI WINKLER JR PHARMACY PRESCRIPT ION NONE Jun 03, 2017 NONE [id number] ROXI WINKLER MEDICARE PART D (WNR) MEDICARE (M) PART D Sep 03, 2023 PART D [id number] ROXI WINKLER JR PATIENT Selected Encounter This section includes the information on record at [place] for the Encounter. Date/Time Encounter Type Encounter Description Reason Provider Source Feb 18, 2025 11:10 AM HHS/HOSPICE OF RN EA 15 MIN PC Nursing (RN / LP) ICD-10-CM I50.32 Chronic diastolic (congestive) heart failure SHIMON SINCLAIR Adela Encounter Template Text not used by [place] Assessments - Encounter Diagnoses This section includes the primary and secondary diagnoses documented for the Encounter. Date/Time Primary/Secondary Diagnosis Diagnosis Name Provider Source Feb 18, 2025 05:14 PM PRIMARY Chronic diastolic (congestive) heart failure SHIMON SINCLAIR [facility] Feb 18, 2025 05:14 PM SECONDARY Chronic obstructive pulmonary disease, unspecified SHIMON SINCLAIR [facility] Feb 18, 2025 05:14 PM SECONDARY Chronic pain syndrome SHIMON SINCLAIR [facility] Feb 18, 2025 05:14 PM SECONDARY Essential (primary) hypertension SHIMON SINCLAIR [facility] Plan of Treatment: Future Appointments (+ 6 months) and Future Tests (+/- 45 days) The Plan of Treatment section includes future care activities for the patient from all [place] treatmentfacilities. This section includes future appointments and future orders which are active, pending or scheduled. Future Appointments This section includes appointments that were scheduled to occur 6 months from the date of the Encounter, up to a maximum of 20 appointments. The data comes from all [place] treatment facilities. Appointment Date/Time Appointment Type Appointme nt Facility Name Apr 14, 2025 10:30 AM AMBULATORY - MEDICINE [facility] Social History: Smoking Status (Most current) and Tobacco Use (All prior to encounter date) This section includes the most current, and the historical, smoking and tobacco- related health factors from the [place] facility where the Encounter took place. Current Smoking Status This section includes the most current smoking, or tobacco-related health factor, from the [place] facility where the Encounter took place. Date/Time Current Smoking Status Comment Facil ity May 05, 2016 01:12 AM NON-TOBACCO USE INPATIENT [facility] Tobacco Use History This section includes a history of the smoking, or tobacco-related health factors, that were collected on or before the date of the Encounter. The data comes from the [place] facility where the Encounter took place. Date/Time Smoking Status/Tobacco Use Comment F acility Nov 24, 2015 04:48 PM NON-TOBACCO USE INPATIENT [facility] Oct 01, 2014 07:15 PM NON-TOBACCO USE INPATIENT [facility] Apr 10, 2005 01:20 PM HF V9 LIFETIME NON-SMOKER [facility] Nov 24, 2003 03:11 PM HF V9 LIFETIME NON-SMOKER [facility] Oct 07, 2002 02:26 PM HF V9 LIFETIME NON-SMOKER [facility] Advance Directives: All historical and current Section Date Range: From patient's date of to the date document was created. This section includes ALL of a patient's completed or amended [place] Advance and Rescinded Directives. The entries below indicate that a directive exists for the patient, but an actual copy is not included with this document. The data comes from all [facility]. Date Advance Directives Provider Source Sep 25, 2024 ADVANCE DIRECTIVE DISCUSSION ANTHONY IRVING [facility] Radiology Reports: +/- 30 days of the [...] the Encounter. The data comes from all [place] treatment facilities. Date/Time Radiology Report Provider Source January 30, 2025 11:14 AM SHOULDER-LEFT 2 OR MORE VIEWS: ROXI WINKLER NANDO [id number] -1955 M Exm Date: JANUARY 30, 2025@11:14 Req Phys: CHANTALELAURY Loc: [facility] [facility] RN HM VST (Req'g Loc) Img Loc: [facility] RADIOLOGY Service: [place] [address] (Case [id number] COMPLETE)SHOULDER-LEFT 2 OR MORE VIEWS (RAD Detailed) CPT:43564 Reason for Study: pain Clinical History: Report Status: Verified Date Reported: JANUARY 30, 2025 Date Verified: JANUARY 30, 2025 Interdisciplinary Professor E-Sig: Report: EXAMINATION: LEFT SHOULDER 2 VIEWS [...] Primary Interpreting Staff: Beatrice BELL Verified by sap fico architect for DUSTY SCOTT /DUSTY GONZALEZ [facility] January 30, 2025 10:57 AM U/S ABDOMEN LTD: ROXI WINKLER [id number] -[id number] M Exm Date: JANUARY 30, 2025@10:57 Req Phys: LAURY KENYON Loc: [facility] MONTESSORI PROGRAM DIRECTOR PHONE (Req'g Loc) Img Loc: ULTRASOUND Service: [place] [address] (Case [id number] COMPLETE)U/S ABDOMEN LTD (US Detailed) CPT:52248 Reason for Study: bilateral abdominal hematoma increasing in size Clinical History: Report Status: Verified Date Reported: JANUARY 30, 2025 Date Verified: JANUARY 30, 2025 Interdisciplinary Professor E-Sig: Report: EXAMINATION: ULTRASOUND THE ABDOMEN LIMITED [...] Primary Interpreting Staff: Beatrice BELL Verified by sap fico architect for DUSTY SCOTT /DUSTY GONZALEZYancy [facility] Encounter Notes: All associated encounter notes This section contains the clinical notes associated to the Encounter. Date/Time Encounter Note(s) Provider Source Feb 20, 2025 08:15 AM ADDENDUM: LOCAL TITLE: Addendum STANDARD TITLE: ADDENDUM DATE OF NOTE: FEB 20, 2025@08:15:49 ENTRY DATE: FEB 20, 2025@08:15:50 AUTHOR: LAURY KENYON EXP COSIGNER: URGENCY: STATUS: COMPLETED A/P: 1. foot wound-ordere betadine use sparingly on open sore on toe bid. 2. chronic pain- increased butrans patch to 7.5 mg QW 3. respiratory infection in setting of copd, hiv pos, and hx of histoplasmosis- order augmentin 875 bid and zithromax x 3 days. maximize albuterol rescue. pharmacy please mail all locally. /angie/ LAURY KENYON APRN ADVANCED PRACTICE REGISTERED NURSE, [facility] Signed: 02/20/2025 08:36 Receipt Acknowledged By: 02/20/2025 10:30 /angie/ LAURY RATLIFF PHARMD Pharmacy Equipment Operator Wage Hand, Delivery Coord. --- Original Document --- 02/18/25 [facility] NURSING PROGRESS: [facility] FOLLOW-UP NOTE Date of visit: February Time spent with patient: 60 min Date of admission to [facility]: Patient Identified by: Name, Known Address Source of Information: Patient, Spouse What matter most to you in your life right now? I am happy that I have my chair MEDICATIONS: Active and Recently Outpatient Medications (including Supplies): [...] 5LB WEIGHT GAIN IN 1 WEEK) 5) BUPRENORPHINE 5MCG/HR PATCH APPLY 1 PATCH (5MCG/HR) TO SKIN ACTIVE EVERY SEVEN DAYS Indication: FOR PAIN 6) CLEANSER,WOUND SKINTEGRITY TOP SPRAY SPRAY TO AFFECTED AREA ACTIVE NEEDED Indication: FOR WOUND CARE 7) DICLOFENAC NA 1% TOP GEL APPLY 2 GRAM STRIP TO AFFECTED AREA ACTIVE EVERY 6 HOURS NEEDED Indication: FOR PAIN 8) DOCUSATE NA 50MG/SENNOSIDES 8.6MG TAB TAKE 1 TABLET BY MOUTH ACTIVE TWICE A DAY Indication: FOR CONSTIPATION 9) DRESSING,HONEY TOP PASTE APPLY SMALL AMOUNT TO AFFECTED AREA ACTIVE DIRECTED Indication: FOR WOUND CARE 10) FINASTERIDE 5MG TAB TAKE ONE TABLET BY MOUTH DAILY FOR ACTIVE PROSTATE 11) GABAPENTIN 300MG CAP TAKE TWO CAPSULES BY MOUTH EVERY ACTIVE MORNING AND TAKE THREE CAPSULES EVERY EVENING AND TAKE THREE CAPSULES AT BEDTIME Indication: FOR NERVE PAIN 12) GAUZE PAD 4IN X 4IN NONSTERILE USE GAUZE AFFECTED AREA ACTIVE DIRECTED Indication: WOUND CARE 13) GLUCOSE SENSOR DEXCOM G7 USE SENSOR DIRECTED NEEDED ACTIVE Indication: FOR BLOOD SUGAR MONITORING 14) INSULIN CONC REG HUM 500 UNT/ML KWIKPEN INJECT 60 UNITS ACTIVE UNDER THE SKIN EVERY MORNING AND INJECT 50 UNITS EVERY EVENING -KEEP REFRIGERATED UNTIL PEN IN USE, ONCE IN USE DISCARD AFTER 28 DAYS Indication: FOR BLOOD SUGAR 15) LIDOCAINE 5% 5IN X 6IN PATCH APPLY 2 PATCHES TO SKIN DAILY ACTIVE NEEDED FOR PAIN. (LEAVE ON 12 HOURS, THEN REMOVE FOR 12 HOURS) 16) METHOCARBAMOL 750MG TAB TAKE ONE TABLET BY MOUTH EVERY 6 ACTIVE HOURS NEEDED FOR MUSCLE SPASM 17) NALOXONE HCL 4MG/SPRAY SOLN NASAL SPRAY SPRAY 1 DOSE IN ONE ACTIVE NOSTRIL ONLY DIRECTED -CALL 05-04- IF MEDICATION IS ADMINISTERED. Indication: FOR OPIOID OVERDOSE 18) NEEDLE,PEN 31G,8MM USE NEEDLE NEEDLE,PEN 31G,5/16IN DEVICE ACTIVE DIRECTED FOR USE WITH U500 KWICKPEN 19) OLODATEROL/TIOTROP 2.5MCG/ACTUAT 60D INH INHALE 2 PUFFS BY ACTIVE MOUTH EVERY MORNING FOR BREATHING 20) PANTOPRAZOLE NA 40MG EC TAB TAKE ONE TABLET BY MOUTH DAILY ACTIVE TAKE ON AN EMPTY STOMACH. Indication: FOR STOMACH 21) PROMOGRAN MIKE 4.34 X 4.34IN #MA028 APPLY DRESSING(S) TO ACTIVE AFFECTED AREA EVERY OTHER DAY 22) SITAGLIPTIN (EQV-ZITUVIO) 100MG TAB TAKE ONE TABLET BY MOUTH ACTIVE DAILY -REPLACES ALOGLIPTIN. STORE IN ORIGINAL CONTAINER. OPENED BOTTLES MUST BE USED WITHIN 3 MONTHS Indication: FOR BLOOD SUGAR 23) TAMSULOSIN HCL 0.4MG CAP TAKE ONE CAPSULE BY MOUTH EVERY ACTIVE EVENING FOR PROSTATE 24) VENLAFAXINE HCL 150MG 24HR SA CAP TAKE ONE CAPSULE BY MOUTH ACTIVE DAILY Indication: FOR CHRONIC PAIN Inactive Outpatient Medications Status 1) AMOXICILLIN 875/CLAV K 125MG TAB TAKE 1 TABLET BY MOUTH TWICE A DAY Indication: FOR SKIN OR SOFT TISSUE INFECTION 2) METOPROLOL TARTRATE 100MG TAB TAKE ONE TABLET BY MOUTH TWICE A DAY Indication: FOR BLOOD PRESSURE/HEART 3) TRAMADOL HCL 50MG TAB TAKE ONE TABLET BY MOUTH EVERY MORNING AND TAKE ONE TABLET EVERY EVENING AND TAKE TWO TABLETS AT BEDTIME Indication: FOR PAIN Active Non-VA Medications Status 1) Non-VA ASPIRIN 81MG EC TAB 81MG MOUTH DAILY ACTIVE 2) Non-VA OXYGEN GAS 3 LITERS NASAL CANNULA DAILY ACTIVE 29 Total Medications Kiny-oks-fbctufn products used by patient: None per patient Medications/OTC/supplements started and/or discontinued since last [facility] visit. PER CPRS medication list- Medication [...] Sleeping Arrangements No Inadequate Ventilation No Inadequate [place] No Unsafe Storage of Supplies/Equipment No Presence of Infestation of Pests Yes Functioning Smoke Alarm Present No Fire Extinguisher Present Yes Fire Exit Plan No Use of Restraints Yes Home is adaptable for Home Care No Smoking materials present in the home N/A Pets secured in an area away from the area of care provision Yes Additional safety concerns: fall risk- Temperature: Temperature: Pulse: 80 Pulse Oximetry: 94 Respirations: Respirations: 18 Blood Pressure: Blood Pressure: 118/62 Pain: Pain: 5 OXYGEN IN THE HOME: [...] in well-ventilated area Home Oxygen Education: -Encourage [place] to notify neighbors of Oxygen in use. [...] require immediate medication attention (s/s of acute VA, palpitations, ect...), Notify [facility] of new or worsening symptoms, Other:elevate feet and legs. RESPIRATORY STATUS: Lung Sounds: Right Upper Lobe: Clear Right Middle Lobe: Clear Right Lower Lobe: Clear Left Upper Lobe: Clear Left Lower Lobe: Clear Education provided: Take medications as prescribed, Symptoms to report to provider (new or worsening symptoms) GASTROINTESTINAL STATUS: Abdomen is: Flat Bowel Sounds: Normal Abdominal Pain: Describe: Hematomas look smaller in size-the right one is still painful and hard-will cont to monitor- Bowel Movements: Last BM: yesterday Frequency: EVERY COUPLE OF [...] are dried up and no drainage noted. Has two toes that have open areas-daughter is doing the wound [id number]-[id number] and patient stated that his toes do look better. MOBILITY: Patient is ambulatory with assistive devices: Rollator, Wheelchair, Patient extremety strength is: All extremities strong bilaterally FALLS: Have you fallen since last visit: No NURSING SUMMARY OF CARE: Reviewed poc and current interventions with patient-daughter and spouse-all voiced understanding and agreement- PROCEDURES/INTERVENTIONS: Medication Reconcilliation, Mediplanner Fill, Vital Signs, Assessment EDUCATION: Fall Prevention: Proper footwear, Safe use [...] indicates understanding of education by: Verbalizes Comments: Will see patient next month Skilled nurse in home to teach on HTN COPD CHF Diabetes PCP, Please order betadine for his toes-daughter says they look better- Also asking if pain patch can be increased-will need more of them sent- Patient stated he has been coughing up thick greenish yellowish sputum for about five days-said it was yellow this am-lungs sounds were decreased- /es/ SHIMON SINCLAIR RN Signed: 02/18/2025 17:14 Receipt Acknowledged By: * AWAITING SIGNATURE * LAURY KENYON [place] [facility] [place] Feb 18, 2025 05:00 PM HB NURSING NOTE: LOCAL TITLE: [facility] NURSING PROGRESS STANDARD TITLE: [facility] NURSING NOTE DATE OF NOTE: FEB 18, 2025@17:00 ENTRY DATE: FEB 18, 2025@17:01:11 AUTHOR: SHIMON SINCLAIR EXP COSIGNER: URGENCY: STATUS: COMPLETED HB NURSING PROGRESS Has ADDENDA HB FOLLOW-UP NOTE Date of visit: February Time spent with patient: 60 min Date of admission to [facility]: Patient Identified by: Name, Known Address Source of Information: Patient, Spouse What matter most to you in your life right now? I am happy that I have my chair MEDICATIONS: Active and Recently Outpatient Medications (including Supplies): [...] 5LB WEIGHT GAIN IN 1 WEEK) 5) BUPRENORPHINE 5MCG/HR PATCH APPLY 1 PATCH (5MCG/HR) TO SKIN ACTIVE EVERY SEVEN DAYS Indication: FOR PAIN 6) CLEANSER,WOUND SKINTEGRITY TOP SPRAY SPRAY TO AFFECTED AREA ACTIVE NEEDED Indication: FOR WOUND CARE 7) DICLOFENAC NA 1% TOP GEL APPLY 2 GRAM STRIP TO AFFECTED AREA ACTIVE EVERY 6 HOURS NEEDED Indication: FOR PAIN 8) DOCUSATE NA 50MG/SENNOSIDES 8.6MG TAB TAKE 1 TABLET BY MOUTH ACTIVE TWICE A DAY Indication: FOR CONSTIPATION 9) DRESSING,HONEY TOP PASTE APPLY SMALL AMOUNT TO AFFECTED AREA ACTIVE DIRECTED Indication: FOR WOUND CARE 10) FINASTERIDE 5MG TAB TAKE ONE TABLET BY MOUTH DAILY FOR ACTIVE PROSTATE 11) GABAPENTIN 300MG CAP TAKE TWO CAPSULES BY MOUTH EVERY ACTIVE MORNING AND TAKE THREE CAPSULES EVERY EVENING AND TAKE THREE CAPSULES AT BEDTIME Indication: FOR NERVE PAIN 12) GAUZE PAD 4IN X 4IN NONSTERILE USE GAUZE AFFECTED AREA ACTIVE DIRECTED Indication: WOUND CARE 13) GLUCOSE SENSOR DEXCOM G7 USE SENSOR DIRECTED NEEDED ACTIVE Indication: FOR BLOOD SUGAR MONITORING 14) INSULIN CONC REG HUM 500 UNT/ML KWIKPEN INJECT 60 UNITS ACTIVE UNDER THE SKIN EVERY MORNING AND INJECT 50 UNITS EVERY EVENING -KEEP REFRIGERATED UNTIL PEN IN USE, ONCE IN USE DISCARD AFTER 28 DAYS Indication: FOR BLOOD SUGAR 15) LIDOCAINE 5% 5IN X 6IN PATCH APPLY 2 PATCHES TO SKIN DAILY ACTIVE NEEDED FOR PAIN. (LEAVE ON 12 HOURS, THEN REMOVE FOR 12 HOURS) 16) METHOCARBAMOL 750MG TAB TAKE ONE TABLET BY MOUTH EVERY 6 ACTIVE HOURS NEEDED FOR MUSCLE SPASM 17) NALOXONE HCL 4MG/SPRAY SOLN NASAL SPRAY SPRAY 1 DOSE IN ONE ACTIVE NOSTRIL ONLY DIRECTED -CALL -1-1 IF MEDICATION IS ADMINISTERED. Indication: FOR OPIOID OVERDOSE 18) NEEDLE,PEN 31G,8MM USE NEEDLE NEEDLE,PEN 31G,5/16IN DEVICE ACTIVE DIRECTED FOR USE WITH U500 KWICKPEN 19) OLODATEROL/TIOTROP 2.5MCG/ACTUAT 60D INH INHALE 2 PUFFS BY ACTIVE MOUTH EVERY MORNING FOR BREATHING 20) PANTOPRAZOLE NA 40MG EC TAB TAKE ONE TABLET BY MOUTH DAILY ACTIVE TAKE ON AN EMPTY STOMACH. Indication: FOR STOMACH 21) PROMOGRAN MIKE 4.34 X 4.34IN #MA028 APPLY DRESSING(S) TO ACTIVE AFFECTED AREA EVERY OTHER DAY 22) SITAGLIPTIN (EQV-ZITUVIO) 100MG TAB TAKE ONE TABLET BY MOUTH ACTIVE DAILY -REPLACES ALOGLIPTIN. STORE IN ORIGINAL CONTAINER. OPENED BOTTLES MUST BE USED WITHIN 3 MONTHS Indication: FOR BLOOD SUGAR 23) TAMSULOSIN HCL 0.4MG CAP TAKE ONE CAPSULE BY MOUTH EVERY ACTIVE EVENING FOR PROSTATE 24) VENLAFAXINE HCL 150MG 24HR SA CAP TAKE ONE CAPSULE BY MOUTH ACTIVE DAILY Indication: FOR CHRONIC PAIN Inactive Outpatient Medications Status 1) AMOXICILLIN 875/CLAV K 125MG TAB TAKE 1 TABLET BY MOUTH TWICE A DAY Indication: FOR SKIN OR SOFT TISSUE INFECTION 2) METOPROLOL TARTRATE 100MG TAB TAKE ONE TABLET BY MOUTH TWICE A DAY Indication: FOR BLOOD PRESSURE/HEART 3) TRAMADOL HCL 50MG TAB TAKE ONE TABLET BY MOUTH EVERY MORNING AND TAKE ONE TABLET EVERY EVENING AND TAKE TWO TABLETS AT BEDTIME Indication: FOR PAIN Active Non-VA Medications Status 1) Non-VA ASPIRIN 81MG EC TAB 81MG MOUTH DAILY ACTIVE 2) Non-VA OXYGEN GAS 3 LITERS NASAL CANNULA DAILY ACTIVE 29 Total Medications Gngi-wqc-pycfriv products used by patient: None per patient Medications/OTC/supplements started and/or discontinued since last [facility] visit. PER CPRS medication list- Medication [...] Sleeping Arrangements No Inadequate Ventilation No Inadequate [place] No Unsafe Storage of Supplies/Equipment No Presence of Infestation of Pests Yes Functioning Smoke Alarm Present No Fire Extinguisher Present Yes Fire Exit Plan No Use of Restraints Yes Home is adaptable for Home Care No Smoking materials present in the home N/A Pets secured in an area away from the area of care provision Yes Additional safety concerns: fall risk- Temperature: Temperature: Pulse: 80 Pulse Oximetry: 94 Respirations: Respirations: 18 Blood Pressure: Blood Pressure: 118/62 Pain: Pain: 5 OXYGEN IN THE HOME: [...] in well-ventilated area Home Oxygen Education: -Encourage [employer] to notify neighbors of Oxygen in use. [...] require immediate medication attention (s/s of acute VA, palpitations, ect...), Notify [facility] of new or worsening symptoms, Other:elevate feet and legs. RESPIRATORY STATUS: Lung Sounds: Right Upper Lobe: Clear Right Middle Lobe: Clear Right Lower Lobe: Clear Left Upper Lobe: Clear Left Lower Lobe: Clear Education provided: Take medications as prescribed, Symptoms to report to provider (new or worsening symptoms) GASTROINTESTINAL STATUS: Abdomen is: Flat Bowel Sounds: Normal Abdominal Pain: Describe: Hematomas look smaller in size-the right one is still painful and hard-will cont to monitor- Bowel Movements: Last BM: yesterday Frequency: EVERY COUPLE OF [...] are dried up and no drainage noted. Has two toes that have open areas-daughter is doing the wound [id number]-[id number] and patient stated that his toes do look better. MOBILITY: Patient is ambulatory with assistive devices: Rollator, Wheelchair, Patient extremety strength is: All extremities strong bilaterally FALLS: Have you fallen since last visit: No NURSING SUMMARY OF CARE: Reviewed poc and current interventions with patient-daughter and spouse-all voiced understanding and agreement- PROCEDURES/INTERVENTIONS: Medication Reconcilliation, Mediplanner Fill, Vital Signs, Assessment EDUCATION: Fall Prevention: Proper footwear, Safe use [...] indicates understanding of education by: Verbalizes Comments: Will see patient next month Skilled nurse in home to teach on HTN COPD CHF Diabetes PCP, Please order betadine for his toes-daughter says they look better- Also asking if pain patch can be increased-will need more of them sent- Patient stated he has been coughing up thick greenish yellowish sputum for about five days-said it was yellow this am-lungs sounds were decreased- /angie/ SHIMON SINCLAIR RN Signed: 02/18/2025 17:14 Receipt Acknowledged By: 02/20/2025 13:25 /angie/ LAURY KENYON APRN ADVANCED PRACTICE REGISTERED NURSE, [facility] 02/20/2025 ADDENDUM STATUS: COMPLETED A/P: 1. foot wound-ordere betadine use sparingly on open sore on toe bid. 2. chronic pain- increased butrans patch to 7.5 mg QW 3. respiratory infection in setting of copd, hiv pos, and hx of histoplasmosis- order augmentin 875 bid and zithromax x 3 days. maximize albuterol rescue. pharmacy please mail all locally. /angie/ LAURY KENYON APRN ADVANCED PRACTICE REGISTERED NURSE, [facility] Signed: 02/20/2025 08:36 Receipt Acknowledged By: 02/20/2025 10:30 /angie/ LAURY RATLIFF, NICOLED Pharmacy Equipment Operator Wage [employer], Delivery Coord. SHIMON SINCLAIR-[facility]
--- OUTSIDE RECORDS SUMMARY | 2025-02-20 05:20 | XMS_ITS | Encounter Summary ---
Author Name [facility] [place] Address [address] [place] [address] Care Team Providers Care Welder Plasma Arc Name Role Phone LAURY KENYON Primary Care [...] PREFERRED PROVIDER ORGANIZAT ION (PPO) ARELIS ON [employer] Jun 03, 2017 [id number] RACHID WINKLER PATIENT HUMANA [facility] (WNR) MEDICARE ADVANTAGE [facility] (WNR) Sep 03, 2019 [id number] RACHID WIKNLER JR PATIENT HUMANA MCR (WNR) MEDICARE ADVANTAGE [facility] (WNR) Sep 03, 2019 [id number] [phone] RACHID WINKLER HUMANA MCR (WNR) MEDICARE ADVANTAGE HUMAN A INSUR ANCE COM Apr 04, 2019 [id number] RACHID WINKLERA MCR (WNR) MEDICARE ADVANTAGE [facility] (WNR) Apr 03, 2019 [id number] RACHID WINKLER HUMANA MCR (WNR) MEDICARE ADVANTAGE MCR (WNR) Apr 03, 2019 [id number] RACHID WINKLER HUMANA MCR (WNR) MEDICARE ADVANTAGE MCR (WNR) Apr 03, 2019 [id number] RACHID WINKLER JR PHARMACY PRESCRIPT ION NONE Jun 03, 2017 NONE [id number] RACHID WINKLER MEDICARE PART D (WNR) MEDICARE (M) PART D Sep 03, 2023 PART D [id number] RACHID WINKLER JR PATIENT Selected Encounter This section includes the information on record at [place] for the Encounter. Date/Time Encounter Type Encounter Description Reason Pro vider Source Feb 20, 2025 09:20 AM Outpatient Encounter [facility] Encounter Template Text not used by [...] 10:30 AM AMBULATORY - MEDICINE FORTUNATO ACKERMAN [facility] Social History: Smoking Status (Most current) [...] place. Date/Time Current Smoking Status Comment Facil [place] May 05, 2016 01:12 AM NON-TOBACCO USE INPATIENT [facility] Tobacco Use History This section includes a history of the smoking, or tobacco-related health factors, that were collected on or before the date of the Encounter. The data comes from the [place] facility where the Encounter took place. Date/Time Smoking Status/Tobacco Use Comment F acility Nov 24, 2015 04:48 PM NON-TOBACCO USE INPATIENT [facility] Oct 01, 2014 07:15 PM NON-TOBACCO USE INPATIENT [facility] Apr 10, 2005 01:20 PM HF V9 LIFETIME NON-SMOKER [facility] Nov 24, 2003 03:11 PM HF V9 LIFETIME NON-SMOKER [facility] Oct 07, 2002 02:26 PM HF 9 LIFETIME NON-SMOKER [facility] Advance Directives: All historical and current Section Date Range: From patient's date of to the date document was created. This section includes ALL of a patient's completed or amended [place] Advance and Rescinded Directives. The entries below indicate that a directive exists for the patient, but an actual copy is not included with this document. The data comes from all [facility]. Date Advance Directives Provider Source Sep 25, 2024 ADVANCE DIRECTIVE DISCUSSION ANTHONY IRVING [facility] Radiology Reports: +/- 30 days [...] 11:14 AM SHOULDER-LEFT 2 OR MORE VIEWS: RACHID WINKLER [facility] [id number] -1955 M Exm Date: JANUARY 30, 2025@11:14 Req Phys: LAURY KENYON Loc: [facility] RN HM VST (Req'g Loc) Img Loc: [facility] RADIOLOGY Service: [place] [address] (Case [id number] COMPLETE)SHOULDER-LEFT 2 OR MORE VIEWS (RAD Detailed) CPT:76399 Reason for Study: pain Clinical History: Report Status: Verified Date Reported: JANUARY 30, 2025 Date Verified: JANUARY 30, 2025 Winch Driver E-Sig: Report: EXAMINATION: LEFT SHOULDER 2 VIEWS [...] Interpreting Staff: DUSTY SCOTT Radiologist Verified by gun mechanic for DUSTY SCOTT /DUSTY GONZALEZ-D [facility] January 30, 2025 10:57 AM U/S ABDOMEN LTD: JACEKCHEKORACHID [facility] [id number] -1955 M Ex Date: JANUARY 30, 2025@10:57 Req Phys: LAURY KENYON Loc: [facility] CERTIFIED ETHICAL HACKER PHONE (Req'g Loc) Img Loc: ULTRASOUND Service: [place] [address] (Case [id number] COMPLETE)U/S ABDOMEN LTD ([place] Detailed) CPT:04392 Reason for Study: bilateral abdominal hematoma increasing in size Clinical History: Report Status: Verified Date Reported: JANUARY 30, 2025 Date Verified: JANUARY 30, 2025 Winch Driver E-Sig: Report: EXAMINATION: ULTRASOUND THE ABDOMEN LIMITED [...] Interpreting Staff: DUSTY SCOTT, Radiologist Verified by gun mechanic for DUSTY SCOTT /DUSTY GONZALEZ [facility] Encounter Notes: All associated encounter notes This section contains the clinical notes associated to the Encounter. Date/Time Encounter Note(s) Provider Source January 05, 2025 02:00 PM LETTERS: LOCAL TITLE: ENDOCRINOLOGY PATIENT LETTER STANDARD TITLE: LETTERS DATE OF NOTE: JANUARY 05, 2025@14:00 ENTRY DATE: JANUARY 05, 2025@14:00:08 AUTHOR: REMA EASLEY EXP COSIGNER: URGENCY: STATUS: COMPLETED [facility] [address] [place] [address] Mr. RACHID CLINE JR WINKLER [address] [address] Rachid Cline Cathi Omer, We have been trying to reach you by phone. We can discuss restarting ozempic at his in-person visit next month. THank you. /angie/ SEFERINO DENTON Endocrinology Attending Signed: 01/05/2025 13:20 If you have questions or problems, please call us at: or [phone] Sincerely, /katrina EASLEY RN [facility] Diabetes/Endocrine/Stock Raiser Patient Record Number [id number] Neurology Service REMA EASLEY [facility]
--- OUTSIDE RECORDS SUMMARY | 2025-02-20 09:06 | XMS_ITS | Encounter Summary ---
Author Name [facility] [place] [facility] [place] [facility] [place] Address [address] [place] [address] Care Team Providers Care Meat Carver Name Role Phone LAURY KENYON Primary Care [...] PREFERRED PROVIDER ORGANIZAT ION (PPO) ARELIS ON [employer] Jun 03, 2017 [id number] ROXI WINKLER PATIENT HUMANA [facility] (WNR) MEDICARE ADVANTAGE [facility] (WN) Sep 03, 2019 [id number] ROXI WINKLER JR PATIENT HUMANA [facility] (WNR) MEDICARE ADVANTAGE [facility] (WN) Sep 03, 2019 [id number] [phone] ROXI WINKLER HUMANA MCR (WNR) MEDICARE ADVANTAGE HUMAN A INSUR ANCE COM Apr 04, 2019 [id number] ROXI WINKLERA MCR (WNR) MEDICARE ADVANTAGE [facility] (WNR) Apr 03, 2019 [id number] ROXI WINKLER HUMANA MCR (WNR) MEDICARE ADVANTAGE MCR (WNR) Apr 03, 2019 [id number] ROXI WINKLER HUMANA MCR (WNR) MEDICARE ADVANTAGE [facility] (WNR) Apr 03, 2019 [id number] ROXI WNIKLER JR PHARMACY PRESCRIPT ION NONE Jun 03, 2017 NONE [id number] ROXI WINKLER MEDICARE PART D (WNR) MEDICARE (M) PART D Sep 03, 2023 PART D [id number] ROXI WINKLER JR PATIENT Selected Encounter This section includes the information on record at [place] for the Encounter. Date/Time Encounter Type Encounter Description Reason Pro vider Source Feb 20, 2025 01:06 PM [facility] En[facility] Template Text not used by [place] [...] 10:30 AM AMBULATORY - MEDICINE FORTUNATO [facility] Social History: Smoking Status (Most current) [...] DISCUSSION ANTHONY IRVING [facility] Radiology Reports: +/- 30 days of [...] the Encounter. The data comes from all [place] treatment facilities. Date/Time Radiology Report Provider Source January 30, 2025 11:14 AM SHOULDER-LEFT 2 OR MORE VIEWS: ROXI WINKLER NANDO [id number] -1955 M Exm Date: JANUARY 30, 2025@11:14 Req Phys: LAURY KENYON Loc: [facility] RN HM VST (Req'g Loc) Img Loc: CDD RADIOLOGY Service: [place] [address] (Case [id number] COMPLETE)SHOULDER-LEFT 2 OR MORE VIEWS (RAD Detailed) CPT:28703 Reason for Study: pain Clinical History: Report Status: Verified Date Reported: JANUARY 30, 2025 Date Verified: JANUARY 30, 2025 Principal Bioinformatics Specialist E-Sig: Report: EXAMINATION: LEFT SHOULDER 2 [...] Interpreting Staff: DUSTY SCOTT Radiologist Verified by multi site leasing consultant for DUSTY SCOTT /DUSTY GONZALEZ-D [facility] January 30, 2025 10:57 AM U/S ABDOMEN LTD: ROXI WINKLER NANDO [id number] -1955 M Exm Date: JANUARY 30, 2025@10:57 Req Phys: LAURY KENYON Loc: [facility] HIM TECH PHONE (Req'g Loc) Img Loc: ULTRASOUND Service: [place] [address] (Case [id number] COMPLETE)U/S ABDOMEN LTD ([place] Detailed) CPT:29871 Reason for Study: bilateral abdominal hematoma increasing in size Clinical History: Report Status: Verified Date Reported: JANUARY 30, 2025 Date Verified: JANUARY 30, 2025 Principal Bioinformatics Specialist E-Sig: Report: EXAMINATION: ULTRASOUND THE ABDOMEN [...] Interpreting Staff: DUSTY SCOTT, Radiologist Verified by multi site leasing consultant for DUSTY SCOTT /GAIL SCOTT,DUSTY TIRADO-D [facility] Encounter Notes: All associated encounter notes This section contains the clinical notes associated to the Encounter. Date/Time Encounter Note(s) Provider Source Feb 20, 2025 01:06 PM [facility] MEDICATION MG T NOTE: LOCAL TITLE: [facility] NEW MEDICATION EDUCATION NOTE STANDARD TITLE: [facility] MEDICATION MGT NOTE DATE OF NOTE: FEB 20, 2025@13:06 ENTRY DATE: FEB 20, 2025@13:06:55 AUTHOR: SUMANTH JACKSON EXP COSIGNER: URGENCY: STATUS: COMPLETED provider attempted phone call x 2 without success, [facility] RN made phone call and left message with regarding the following med changes: New Medication Education. Patient's medications are managed by: Self/Caregiver Patient currently uses the following to help manage medications: Medication Organizers (Pill Boxes) New Medication Education Indicated: new medication(s) started since last [facility] visit where medication reconciliation was performed or at this visit. Name of new medication(s): 1) AMOXICILLIN 875/CLAV K 125MG TAB TAKE 1 TABLET BY MOUTH ACTIVE TWICE A DAY Indication: FOR PNEUMONIA 2) AZITHROMYCIN 500MG TAB TAKE ONE TABLET BY MOUTH DAILY ACTIVE Indication: FOR PNEUMONIA 3) BUPRENORPHINE 7.5MCG/HR PATCH APPLY 1 PATCH (7.5MCG/HR) TO ACTIVE SKIN EVERY SEVEN DAYS NOTE DOSE INCREASE 02/20/25 Indication: FOR PAIN 4) POVIDONE IODINE 10% TOP SOLN APPLY SPARINGLY TO AFFECTED ACTIVE AREA TWICE A DAY NEEDED APPLY TO TOE Indication: FOR SKIN INFECTION Education provided to patient/caregiver for new medication(s) provided based on individual needs, regarding the following: - Medication(s) name, type and reason for use. - How to administer the medication (including process, time, frequency, route, dose). - Anticipated action & potential adverse effects. - How to monitor the effects of the medication. Medication handout provided for prescription medication(s) at the time of dispensing. /angie/ Sumanth Jackson RN flowers salesperson Signed: 02/20/2025 13:10 SUMANTH JACKSON-[facility]
--- OUTSIDE RECORDS SUMMARY | 2025-02-22 11:49 | XMS_ITS ---
Author Name [facility] [place] [facility] [facility] [place] Address [address] [place] [address] Care Team Providers Care Roll Up Helper Name Role Phone LAURY KENYON Primary [...] PREFERRED PROVIDER ORGANIZAT ION (PPO) ARELIS ON [employer] Jun 03, 2017 [id number] ROXI WINKLER PATIENT [employer]NA [facility] (WNR) MEDICARE ADVANTAGE [facility] (WNR) Sep 03, 2019 [id number] ROXI WINKLER JR PATIENT [employer] [facility] (WNR) MEDICARE ADVANTAGE [facility] (WNR) Sep 03, 2019 [id number] [phone] ROXI WINKLERA MCR (WNR) MEDICARE ADVANTAGE HUMAN A INSUR ANCE COM Apr 04, 2019 [id number] ROXI WINKLERA MCR (WNR) MEDICARE ADVANTAGE [facility] (WNR) Apr 03, 2019 [id number] ROXI WINKLERA MCR (WNR) MEDICARE ADVANTAGE MCR (WNR) Apr 03, 2019 [id number] ROXI WINKLERA MCR (WNR) MEDICARE ADVANTAGE MCR (WNR) Apr 03, 2019 [id number] ROXI WINKLER JR PHARMACY PRESCRIPT ION NONE Jun 03, 2017 NONE [id number] [phone] ROXI WINKLER MEDICARE PART D ([place]NR) MEDICARE (M) PART D Sep 03, 2023 PART D [id number] [phone] ROXI WINKLER JR PATIENT Selected Encounter This section includes the information on record at [place] for the Encounter. 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 Tobacco Use History This section includes a history of the smoking, or tobacco-related health factors, that were collected on or before the date of the Encounter. The data comes from the [place] facility where the Encounter took place. Date/Time Smoking Status/Tobacco Use Comment F acility Nov 24, 2015 04:48 PM NON-TOBACCO USE INPATIENT [facility] Oct 01, 2014 07:15 PM NON-TOBACCO USE INPATIENT [facility] Apr 10, 2005 01:20 PM HF V9 LIFETIME NON-SMOKER [facility] Nov 24, 2003 03:11 PM HF V9 LIFETIME NON-SMOKER [facility] Oct 07, 2002 02:26 PM HF V9 LIFETIME NON-SMOKER [facility] Advance Directives: All historical and [...] 25, 2024 ADVANCE DIRECTIVE DISCUSSION ANTHONY IRVING [facility] Radiology Reports: +/- 30 days [...] SHOULDER-LEFT 2 OR MORE VIEWS: ROXI WINKLER [facility] [id number] -[id number] M Exm Date: JANUARY 30, 2025@11:14 Req Phys: LAURY KENYON Loc: [place] [facility] RN HM VST (Req'g Loc) Img Loc: CDD RADIOLOGY Service: Unknown [place] [id number] (Case [id number] COMPLETE)SHOULDER-LEFT 2 OR MORE VIEWS (RAD Detailed) CPT:58194 Reason for Study: pain Clinical History: Report Status: Verified Date Reported: JANUARY 30, 2025 Date Verified: JANUARY 30, 2025 Supervisor Anodizing E-Sig: Report: EXAMINATION: LEFT SHOULDER 2 VIEWS [...] Interpreting Staff: DUSTY SCOTT, Radiologist Verified by elevator attendant for DUSTY SCOTT /DUSTY GONZALEZ-D [facility] January 30, 2025 10:57 AM U/S ABDOMEN LTD: ROXI WINKLER [facility] [id number] -[id number] M Exm Date: JANUARY 30, 2025@10:57 Req Phys: LAURY KENYON Pat Loc: [place] [facility] HISTORY FACULTY MEMBER PHONE (Req'g Loc) Img Loc: ULTRASOUND Service: Unknown [place] [id number] (Case [id number] COMPLETE)U/S ABDOMEN LTD (US Detailed) CPT:51372 Reason for Study: bilateral abdominal hematoma increasing in size Clinical History: Report Status: Verified Date Reported: JANUARY 30, 2025 Date Verified: JANUARY 30, 2025 Supervisor Anodizing E-Sig: Report: EXAMINATION: ULTRASOUND THE ABDOMEN LIMITED [...] Interpreting Staff: DUSTY SCOTT, Radiologist Verified by elevator attendant for DUSTY SCOTT /DUSTY GONZALEZ-[facility] Encounter Notes: All associated encounter notes This section contains the clinical notes associated to the Encounter. Date/Time Encounter Note(s) Provider Source Feb 22, 2025 03:49 PM PHARMACY HOME [facility] M NOTE: LOCAL TITLE: [facility] PHARMACY NOTE STANDARD TITLE: PHARMACY HOME HEALTH E & M NOTE DATE OF NOTE: FEB 22, 2025@15:49 ENTRY DATE: FEB 22, 2025@15:49:19 AUTHOR: MARI KOENIG EXP COSIGNER: URGENCY: STATUS: COMPLETED PMH: 1. Atrial fibrillation 2. Chronic pain syndrome 3. [...] Long-term current use of insulin (SNOMED CT 378172887) 31. Peripheral venous insufficiency 32. Obesity (SNOMED CT 155828285) 33. Obstructive Sleep APNEA (ADULT) (Pediatric) 34. Depressive Disorder NOS Allergies: ENALAPRIL, FOSINOPRIL, LOPID, NIASPAN 500MG ER TABLET, ATENOLOL, HYDRALAZINE VASOTEC, SIMVASTATIN, AMLODIPINE BESYLATE 5MG TABLET, SEMAGLUTIDE VS: 02/18 Pulse: 80 Pulse Oximetry: 94 Respirations: Respirations: 18 Blood Pressure: Blood Pressure: 118/62 Immunizations: IM - Immunizations ADMINISTERED Immunization Series Date Facility Reaction Info INFLUENZA, HIGH-DOSE, TRIVALENT,* 10/15/2024 [facility]* PNEUMOCOCCAL CONJUGATE PCV20, PO* 12/27/2022 [facility]* TDAP (HISTORICAL) 10/14/2013 [facility]* ZOSTER RECOMBINANT 1 03/27/2023 [facility]* CONTRAINDICATED No data available REFUSED ======= Immunization Date Facility Info COVID-19 (PFIZER), MRNA, LNP-S, * 09/06/2023 [facility]* <I> MENINGOCOCCAL MCV4, UNSPECIFIED * 12/27/2022 [facility]* <I> TD(ADULT) UNSPECIFIED FORMULATION 09/06/2023 [facility]* <I> ZOSTER RECOMBINANT 12/27/2022 [facility]* <I> Medications: Active and Recently Outpatient Medications (including Supplies): Active Outpatient Medications Status 1) ALBUTEROL 90MCG (CFC-F) 200D ORAL INHL INHALE 2 PUFFS BY ACTIVE MOUTH EVERY 6 HOURS NEEDED FOR SHORTNESS OF BREATH 2) ALBUTEROL SO4 0.083% INHL 3ML USE 1 AMP (2.5MG/3ML) IN ACTIVE (S) NEBULIZER FOUR TIMES A DAY NEEDED Indication: FOR SHORTNESS OF BREATH 3) AMOXICILLIN 875/CLAV K 125MG TAB TAKE 1 TABLET BY MOUTH ACTIVE TWICE A DAY Indication: FOR PNEUMONIA 4) AZITHROMYCIN 500MG TAB TAKE ONE TABLET BY MOUTH DAILY ACTIVE Indication: FOR PNEUMONIA 5) BANDAGE,GAUZE 4.5IN X 4.1YD STERILE USE BANDAGE ON AFFECTED ACTIVE AREA EVERY OTHER DAY Indication: FOR WOUND CARE 6) BIKTARVY 50/200/25 TAB TAKE 1 TABLET BY MOUTH DAILY ACTIVE Indication: INFECTION 7) BUMETANIDE 2MG TAB TAKE ONE TABLET BY MOUTH DAILY FOR FLUID ACTIVE (S) (TAKE ADDITIONAL EVENING DOSE FOR 3LB WEIGHT GAIN IN 24 HOURS OR 5LB WEIGHT GAIN IN 1 WEEK) 8) BUPRENORPHINE 7.5MCG/HR PATCH APPLY 1 PATCH (7.5MCG/HR) TO ACTIVE SKIN EVERY SEVEN DAYS NOTE DOSE INCREASE 02/20/25 Indication: FOR PAIN 9) CLEANSER,WOUND SKINTEGRITY TOP SPRAY SPRAY TO AFFECTED AREA ACTIVE NEEDED Indication: FOR WOUND CARE 10) DICLOFENAC NA 1% TOP GEL APPLY 2 GRAM STRIP TO AFFECTED AREA ACTIVE EVERY 6 HOURS NEEDED Indication: FOR PAIN 11) DOCUSATE NA 50MG/SENNOSIDES 8.6MG TAB TAKE 1 TABLET BY MOUTH ACTIVE TWICE A DAY Indication: FOR CONSTIPATION 12) DRESSING,HONEY TOP PASTE APPLY SMALL AMOUNT TO AFFECTED AREA ACTIVE DIRECTED Indication: FOR WOUND CARE 13) FINASTERIDE 5MG TAB TAKE ONE TABLET BY MOUTH DAILY FOR ACTIVE PROSTATE 14) GABAPENTIN 300MG CAP TAKE TWO CAPSULES BY MOUTH EVERY ACTIVE MORNING AND TAKE THREE CAPSULES EVERY EVENING AND TAKE THREE CAPSULES AT BEDTIME Indication: FOR NERVE PAIN 15) GAUZE PAD 4IN X 4IN NONSTERILE USE GAUZE AFFECTED AREA ACTIVE DIRECTED Indication: WOUND CARE 16) GLUCOSE SENSOR DEXCOM G7 USE SENSOR DIRECTED NEEDED ACTIVE Indication: FOR BLOOD SUGAR MONITORING 17) INSULIN CONC REG HUM 500 UNT/ML KWIKPEN INJECT 60 UNITS ACTIVE UNDER THE SKIN EVERY MORNING AND INJECT 50 UNITS EVERY EVENING -KEEP REFRIGERATED UNTIL PEN IN USE, ONCE IN USE DISCARD AFTER 28 DAYS Indication: FOR BLOOD SUGAR 18) LIDOCAINE 5% 5IN X 6IN PATCH APPLY 2 PATCHES TO SKIN DAILY ACTIVE NEEDED FOR PAIN. (LEAVE ON 12 HOURS, THEN REMOVE FOR 12 HOURS) 19) METHOCARBAMOL 750MG TAB TAKE ONE TABLET BY MOUTH EVERY 6 ACTIVE HOURS NEEDED FOR MUSCLE SPASM 20) NALOXONE HCL 4MG/SPRAY SOLN NASAL SPRAY SPRAY 1 DOSE IN ONE ACTIVE NOSTRIL ONLY DIRECTED -CALL -- IF MEDICATION IS ADMINISTERED. Indication: FOR OPIOID OVERDOSE 21) NEEDLE,PEN 31G,8MM USE NEEDLE NEEDLE,PEN 31G,5/16IN DEVICE ACTIVE DIRECTED FOR USE WITH U500 KWICKPEN 22) OLODATEROL/TIOTROP 2.5MCG/ACTUAT 60D INH INHALE 2 PUFFS BY ACTIVE MOUTH EVERY MORNING FOR BREATHING 23) PANTOPRAZOLE NA 40MG EC TAB TAKE ONE TABLET BY MOUTH DAILY ACTIVE TAKE ON AN EMPTY STOMACH. Indication: FOR STOMACH 24) POVIDONE IODINE 10% TOP SOLN APPLY SPARINGLY TO AFFECTED ACTIVE AREA TWICE A DAY NEEDED APPLY TO TOE Indication: FOR SKIN INFECTION 25) PROMOGRAN MIKE 4.34 X 4.34IN #[id number] APPLY DRESSING(S) TO ACTIVE AFFECTED AREA EVERY OTHER DAY 26) SITAGLIPTIN (EQV-ZITUVIO) 100MG TAB TAKE ONE TABLET BY MOUTH ACTIVE DAILY -REPLACES ALOGLIPTIN. STORE IN ORIGINAL CONTAINER. OPENED BOTTLES MUST BE USED WITHIN 3 MONTHS Indication: FOR BLOOD SUGAR 27) TAMSULOSIN HCL 0.4MG CAP TAKE ONE CAPSULE BY MOUTH EVERY ACTIVE EVENING FOR PROSTATE 28) VENLAFAXINE HCL 150MG 24HR SA CAP TAKE ONE CAPSULE BY MOUTH ACTIVE DAILY Indication: FOR CHRONIC PAIN Inactive Outpatient Medications Status 1) METOPROLOL TARTRATE 100MG TAB TAKE ONE TABLET BY MOUTH TWICE A DAY Indication: FOR BLOOD PRESSURE/HEART 2) TRAMADOL HCL 50MG TAB TAKE ONE TABLET BY MOUTH EVERY MORNING AND TAKE ONE TABLET EVERY EVENING AND TAKE TWO TABLETS AT BEDTIME Indication: FOR PAIN Active Non-VA Medications Status 1) Non-VA ASPIRIN 81MG EC TAB 81MG MOUTH DAILY ACTIVE 2) Non-VA OXYGEN GAS 3 LITERS NASAL CANNULA DAILY ACTIVE Labs: PANEL 1 Arnel. date GLUCOSE BUN CREAT SODIUM K CHLOR CO2 01/14/25 12:00 258 H 15 0.97 138 3.6 87 L 46 H* PANEL 2 - NONE FOUND CBC/PLT, BLOOD - Partial Panel found WBC , BLOOD, 01/14/25@1200 11.6 HK/cmm (5.0 - 10.0) RBC, BLOOD, 01/14/251200 4.36 LM/cmm (4.6 - 6.2) HGB, BLOOD, 01/14/25@1200 12.7 Lg/dL (14.0 - 18.0) HCT, BLOOD, 01/14/251200 39.9 L% (42.0 - 52.0) MCV, BLOOD, 01/14/251200 91.5 fL (80.0 - 94.0) MCH, BLOOD, 01/14/251200 29.1 pg (27.0 - 31.0) MCHC, BLOOD, 01/14/251200 31.8 Lg/dL (32.0 - 36.0) RDW, BLOOD, 01/14/25@1200 14.6 % (11.0 - 16.0) PLT, BLOOD, 01/14/251200 212 K/cmm (150 - 450) MPV, BLOOD, 01/14/25@1200 9.9 fL (9.0 - 13.1) NRBC, BLOOD, 01/14/25@1200 0.0 % (0.0 - 0.0) Lipid Prof Arnel. date CHOL TRIG HDL LIPID PHLDL CHOLSERUM AP 11/15/23 15:21 175 158 H 34 L Specimen Collection Date: January 14, 2025@12:00 Test name Result units Ref. range Site Code GLYCOHEMOGLOBIN 7.2 H % 4.4 - 5.6 [6033] TSH: 4.5225 mIU/mL (11/15/2023 15:21) B-12/FOLATE: Collection DT Specimen Test Name Result Units Ref Range 06/02/2020 14:10 PLASMA!! B12 VITAMIN 737 pg/mL 213 - 816 Vitamin D: Collection DT Specimen Test Name Result Units Ref Range 10/17/2024 15:32 SERUM !! 25-OH VITAMIN D 28.3 ng/mL 20.0 - 50.0 Estimated CrCl: >100 ml/min (ABW and Scr); 81 ml/min (eGFR adj for BW) Lipid Goal: moderate-dose statin (CAD) BP Goal: <140/90 (DM) - met A1c Goal: <8% (per DM Clinic) - met Medication Outcomes VA meds: ALBUTEROL 90MCG (CFC-F) 200D ORAL 2 PUFFS Q6H PRN: COPD ALBUTEROL SO4 0.083% NEB QID PRN: COPD (NEW) BIKTARVY 50/200/25 TAB TAKE 1 TABLET BY MOUTH DAILY: HIV INFECTION BUMETANIDE 2MG TAB DAILY FOR FLUID BUPRENORPHINE 7.5MCG/HR PATCH q7d: PAIN (new, inc 02/20) DICLOFENAC NA 1% TOP GEL EVERY 6 HOURS NEEDED: PAIN (new, site?) DOCUSATE NA 50MG/SENNOSIDES 8.6MG TAB TWICE A DAY: CONSTIPATION (new) FINASTERIDE 5MG TAB DAILY: PROSTATE? GABAPENTIN 300MG CAP 600MG/900MG/900MG: NERVE PAIN INSULIN CONC REG HUM 500 UNT/ML KWIKPEN INJECT 60AM & 50PM AC: DM LIDOCAINE 5% 5IN X 6IN PATCH APPLY 2 PATCHES TO SKIN DAILY: PAIN METHOCARBAMOL 750MG TAB Q6H PRN: MUSCLE SPASM METOPROLOL TARTRATE 100MG TAB TWICE A DAY: CAD/HTN (exp) NALOXONE NASAL RESCUE 4MG SOLN UD: opioid safety OLODATEROL/TIOTROP 2.5MCG/ACTUAT 60D INH INHALE 2 PUFFS QAM: COPD PANTOPRAZOLE NA 40MG EC TAB DAILY: GERD SITAGLIPTIN (EQV-ZITUVIO) 100MG TAB DAILY: DM TAMSULOSIN HCL 0.4MG CAP QPM: BPH? VENLAFAXINE HCL 150MG 24HR SA CAP DAILY: CHRONIC PAIN NonVA meds: ASPIRIN 81MG EC TAB DAILY: CAD/PAF *Cardiology clinic *ID clinic *DM clinic *Pain Pharm clinic New therapies/medication changes since last Pharmacy review: - 12/01 apixaban approved - GLUCOSE 4GM CHEW TAB NEEDED: LOW BLOOD SUGAR (dc'd per policy, not renewed) - TRAMADOL , replaced by Butrans patch 02/06 - diclofenac gel added 5/2 for shoulder pain per 01/08 tele note - albuterol nebs added - doc/senna added 4/2 per pt request - AMOXICILLIN 875/CLAV K 125MG TAB TAKE 1 TABLET TWICE A DAY FOR PNEUMONIA 02/20 x5d - AZITHROMYCIN 500MG TAB TAKE ONE TABLET BY MOUTH DAILY FOR PNEUMONIA 02/20 x3d Plan/recommendations: 1. Problem List: - Please add indication for tamsulosin and finasteride. 2. PAF: per 11/21 Cards note, he is rate controlled, Digoxin may be DC'd...will recommend DOAC after resolution of this hematoma . Apixaban 5mg BID approved, but pt with painful hematomas present. Please enter Rx when appropriate/hematomas resolved. Apixaban will replace ASA. 3. Med rec: - diclofenac gel is for shoulder pain, will update Rx with application site. 4. medications for review: - METOPROLOL TARTRATE 100MG TAB TWICE A DAY: CAD/HTN (exp) - please renew Medications were reviewed by Pharm.D. for therapeutic indications as well as appropriate dosing for renal function when current labs available and not enrolled in hospice care. Continue to review quarterly. Time Spent Reviewing Chart: 30 min PBM PharmD Pharmacotherapy Rem V12: Medication monitoring or diagnostic evaluation (e.g., other labs, EKG) Medication reconciliation (changes to active VA and non-VA medication lists to reconcile differences) Changes to medication lists made Update dose, frequency, duration and/or dosage form of medication /es/ Mari Koenig, Pharm.D. Clinical Pharmacist - [facility] Signed: 02/22/2025 19:16 Receipt Acknowledged By: 02/23/2025 07:52 /es/ Roxanna Wheeler, shaker screen operator RN for SHIMON SINCLAIR 02/23/2025 07:32 /es/ LAURY KENYON APRN ADVANCED PRACTICE REGISTERED NURSE, MARI ORTEGA-CDD [facility]
--- OUTSIDE RECORDS SUMMARY | 2025-02-24 05:01 | XMS_ITS | Encounter Summary ---
Author Name [facility] [place] Organization [facility] [place] Address [address] [place] [address] Care Team Providers Care New Grad Rn Name Role Phone LAURY KENYON Primary Care [...] Name Patient's Relationship to Policy Pascual HUMANA CLAIMS/[place] MEDICAL PREFERRED PROVIDER ORGANIZAT ION (PPO) ARELIS ON [employer] Jun 03, 2017 [id number] ROXI WINKLER PATIENT HUMANA [facility] (WNR) MEDICARE ADVANTAGE [facility] (WNR) Sep 03, 2019 [id number] [phone] ROXI WINKLER JR PATIENT HUMANA [facility] (WNR) MEDICARE ADVANTAGE [facility] (WNR) Sep 03, 2019 [id number] [phone] ROXI WINKLER HUMANA MCR (WNR) MEDICARE ADVANTAGE HUMAN A INSUR ANCE COM Apr 04, 2019 [id number] ROXI WINKLERA MCR (WNR) MEDICARE ADVANTAGE MCR (WNR) Apr 03, 2019 [id number] ROXI WINKLER HUMANA MCR (WNR) MEDICARE ADVANTAGE MCR (WNR) Apr 03, 2019 [id number] ROXI WINKLER HUMANA MCR (WNR) MEDICARE ADVANTAGE MCR (WNR) Apr 03, 2019 [id number] ROXI WINKLER JR PHARMACY PRESCRIPT ION NONE Jun 03, 2017 NONE [id number] ROXI WINKLER MEDICARE PART D (WNR) MEDICARE (M) PART D Sep 03, 2023 PART D [id number] [phone] ROXI WINKLER JR PATIENT Selected Encounter This section includes the information on record at [place] for the Encounter. Date/Time Encounter Type Encounter Description Reason Pro vider Source Feb 24, 2025 09:01 AM Outpatient Encounter [facility] Nursing (RN / LP) IHE Encounter Template [...] 10:30 AM AMBULATORY - MEDICINE [facility] Social History: Smoking Status (Most current) [...] 05, 2016 01:12 AM NON-TOBACCO USE INPATIENT [facility] Tobacco Use History This section includes a history of the smoking, or tobacco-related health factors, that were collected on or before the date of the Encounter. The data comes from the [place] facility where the Encounter took place. Date/Time Smoking Status/Tobacco Use Comment Yael acsabas Nov 24, 2015 04:48 PM NON-TOBACCO USE INPATIENT [facility] Oct 01, 2014 07:15 PM NON-TOBACCO USE INPATIENT [facility] Apr 10, 2005 01:20 PM HF V9 LIFETIME NON-SMOKER [facility] Nov 24, 2003 03:11 PM HF V9 LIFETIME NON-SMOKER [facility] Oct 07, 2002 02:26 PM HF V9 LIFETIME NON-SMOKER [facility] Advance Directives: All historical and current [...] 25, 2024 ADVANCE DIRECTIVE DISCUSSION ANTHONY IRVING [facility] Radiology Reports: +/- 30 days [...] 11:14 AM SHOULDER-LEFT 2 OR MORE VIEWS: CATHIROXI NANDO [id number] -1955 M Exm Date: JANUARY 30, 2025@11:14 Req Phys: LAURY KENYON Loc: [place] [facility] RN HM VST (Req'g Loc) Img Loc: CDD RADIOLOGY Service: [place] [address] (Case [id number] COMPLETE)SHOULDER-LEFT 2 OR MORE VIEWS (RAD Detailed) CPT:29753 Reason for Study: pain Clinical History: Report Status: Verified Date Reported: JANUARY 30, 2025 Date Verified: JANUARY 30, 2025 Staple Shear Operator E-Sig: Report: EXAMINATION: LEFT SHOULDER 2 [...] Interpreting Staff: DUSTY SCOTT, Radiologist Verified by portfolio mgr for DUSTY SCOTT /DUSTY GONZALEZ-[facility] January 30, 2025 10:57 AM U/S ABDOMEN LTD: ROXI WINKLER NANDO [id number] -1955 M Exm Date: JANUARY 30, 2025@10:57 Req Phys: LAURY KENYON Loc: [place] [facility] SEWER SEPARATION DESIGNER PHONE (Req'g Loc) Img Loc: ULTRASOUND Service: [place] [address] (Case [id number] COMPLETE)U/S ABDOMEN LTD (US Detailed) CPT:65635 Reason for Study: bilateral abdominal hematoma increasing in size Clinical History: Report Status: Verified Date Reported: JANUARY 30, 2025 Date Verified: JANUARY 30, 2025 Staple Shear Operator E-Sig: Report: EXAMINATION: ULTRASOUND THE ABDOMEN [...] Interpreting Staff: DUSTY SCOTT, Radiologist Verified by portfolio mgr for DUSTY SCOTT /GAIL SCOTT,DUSTY T[facility]ADO[facility] Encounter Notes: All associated encounter notes This section contains the clinical notes associated to the Encounter. Date/Time Encounter Note(s) Provider Source Feb 24, 2025 09:01 AM HOME HEALTH INTERD ISCIPLINARY NOTE: LOCAL TITLE: [facility] INTERDISCIPLINARY PLAN OF CARE STANDARD TITLE: HOME HEALTH INTERDISCIPLINARY NOTE DATE OF NOTE: FEB 24, 2025@09:01 ENTRY DATE: FEB 24, 2025@09:02 AUTHOR: SHIMON PADILLA COSIGNER: LAURY KENYON URGENCY: STATUS: COMPLETED Home Based Primary Care Interdisciplinary Treatment Plan Admission Date: 09/10/24 Period to cover: 02/24/25-05/24/25 Allergies: ENALAPRIL, FOSINOPRIL, LOPID, NIASPAN 500MG ER [...] manual w/c, back brace, portable oxygen device, miter cutter, non-skid socks size X wide, clamp-on ETS, shower stool, handheld shower. On 22 January requested Dycem non skid pad. On 28 January [employer] requested 7ft portable ramp, [employer] 613Li powerchair and vehicle lift Living arrangements: with daughter and spouse Mental Status- Behavioral concerns-none Patient safety concerns: fall risk Community home care agency involvement: [facility] and PT Emergency Preparedness Priority Code: 1-high Prognosis: Fair CODE STATUS: Full PROBLEM: DIABETES GOALS: halfway goals developed further with [place] include: A1C less than 7.5 CHRONIC WILL MANAGE UNTIL DISCHARGE TARGET DATE FOR GOAL: Within the next quarter unless otherwise specified. STATUS: follows Diabetes Clinic. Using Concentrated insulin pen 65 units bid with continuous dexcom monitoring.Also takes empagliflozin 12.5 mg, gabapentin 600 mg am, 900 mg noon, and 900mg evening for neuropathy. Lasst A1C 01/14/25 7.2 FH RN INTERVENTIONS for routine visits: Monitor for symptoms of hypoglycemia and hyperglycemia. RN Educate /caregiver as needed on the s/s of hypo/hyperglycemia to monitor for & report. RN Educate [place]/caregiver as needed on how to manage episodes of hypo/hyperglycemia. RN Monitor medication compliance. RN Reinforce recommended diet with [place]/caregiver. RN Collect labs as ordered. 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 TARGET DATE FOR GOAL: Within the next quarter unless otherwise specified. STATUS: takes metoprolol 100 mg bid. BP at goal on initial visit- RN INTERVENTIONS for routine visits: Monitor blood pressure, pulse, respiration every visit. RN Orthostatic blood pressure at routine visits if possible. RN Educate [place] on signs/symptoms of high blood as needed RN Monitor and report to provider any signs/symptoms of high blood pressure ( headaches, dizziness, chest pain, peripheral edema, blurred vision, diminished urine output ,nausea, vomiting ). RN Monitor medication use every visit. RN Reinforce Recommended Diet. RN/RD Obtain 's weight at routine visit if possible. 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 STATUS: Takes bumex -no exacerbations RN INTERVENTIONS for routine visits: Monitor blood pressure, pulse, respiration every visit. RN Monitor respiratory status every visit. RN Monitor for symptoms of orthopnea- SOB when lying down when needed. RN Monitor for edema every visit. RN Monitor medication use at each visit. RN Obtain 's weight at each visit, when possible. RN Reinforce recommended diet. RN/RD Blood work as ordered by provider. RN PROBLEM Benign Hypertrophy of prostate (enlarged prostate) halfway goals developed further with include No Urinary Tract Infections Chronic will manage until discharge TARGET DATE FOR GOAL: Within the next quarter unless otherwise specified STATUS: finasteride and tamsulosin =no signs reported of UTI at first visit- RN INTERVENTIONS for routine visits: Educate as [...] for patients with [facility] termite control technician goals developed further with [place] include Patient's care needs will be coordinated within several agencies TARGET DATE FOR GOAL: Within the next quarter unless otherwise specified STATUS: Has home PT= RN INTERVENTIONS for routine visits: Patient followed by Home Health Agency: this info is found on the consult for home health Name of Agency : [facility]: PT and [employer] for WEATHERIZATION AND HOUSING INSPECTOR services- Monitor services provided by Home Health Agency . RN Monitor for need for any equipment, supplies or specialty services provided by [facility]. RN Coordination of information between the Home Health Agency and [facility] PACT. RN PROBLEM: MEDICATION ADHERENCE/MANAGEMENT halfway goals developed further with [place] include: Will take medications with 90 - 100% accuracy as evidenced by one or more of the following: medminder use, caregiver interview, medication list, ordering pattern, [facility] observation. TARGET DATE FOR GOAL: Within the next quarter, unless otherwise specified. Chronic- Will manage until discharge. STATUS: new patient will monitor for compliance- RN INTERVENTIONS for routine visits: Remind /Caregiver to report any OTC use to [facility]. RN Monitor medication adherence every visit. RN Educate /caregiver on how to reorder medications as needed. RN Provide education on medication regimen, purpose, and side effects at initial assessment, with new medications, when medications changed, and as needed. RN Provide /Caregiver with current medication list and reconcile medications with each visit RN PROBLEM:Impaired Skin Integrity GOAL:No more skin breakdown TARGET DATE FOR GOAL: Within the next quarter unless otherwise specified STATUS: open area to right great toe-nail is off-daughter is treating with betadine-RN INTERVENTIONS for routine visits: Monitor for infection-RN Betadine to right great toe once a day-RN Educate on skin infection as needed-RN Assess skin for breakdown and infections during routine nursing visits. 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 Chronic will manage until discharge. TARGET DATE FOR GOAL: Within the next quarter unless otherwise specified. STATUS: neck, shoulders, low back, lower extremities- started on new pain patch-also pain ultra sound has been ordered- RN INTERVENTIONS for routine visits: Monitor medication compliance at each visit. RN Document assessment and effect of pain medications and comfort measures with each visit RN Encourage /cg to notify [facility] of new or uncontrolled pain. RN Assess for pain at home visits. 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 TARGET DATE FOR GOAL: Within the next quarter unless otherwise specified. STATUS-no respiratory infections-oxygen dependent- RN INTERVENTIONS for routine visits: Oxygen at 3liters/minute per nasal cannula/mask, as needed, for dyspnea/at all times. RN Educate [place] in use of respiratory medications and inhalers, [...] oxygen maintenance at all routine nursing visits. PROBLEM: SAFETY ISSUE - POTENTIAL FOR INJURY FROM FALLS GOALS: 1. [place] will have #1 no more than one [...] of support and reduce risk of falls - Seating & Mobility clinic ordered powerchair and portable ramp PROBLEM: ADVANCE DIRECTIVES/LIFE PLANNING stated goal: I will do advance directive next visit. halfway goals developed further with [place] include: STATUS: Lives at home with his Advance Directive?No Yes on file in [facility]S Living Will?No Yes on file in [employer]S Durable Power of Data Analysis Manager for Health Care? No INTERVENTIONS: Provide education and ongoing review of Advance Directives. SW Assist patient in completion of new Advance Directive if desired. SW PROBLEM: LONG-TERM CARE PLANNING stated goal: I want to stay home. halfway goals developed further with [place] include: STATUS: Staying at home with and daughter caring for him. TARGET DATE: Quarterly INTERVENTIONS: Assist with placement if that becomes needed. Assist [place] and caregiver/medical decision maker in discussing life plans in relation to needs and available supports/services. SW Provide options of care and assist with any placement issues. SW Frequency of [facility] home or VVC visits : frequency placed on subsequent care plans: PROVIDER: Provider visit frequencies will take into consideration the [place]'s goals of care and preferences. [place] will have a comprehensive provider evaluation every 8-12 months. Additional provider visits will be conducted as clinically indicated and driven by quarterly IDT meetings or by changes that would require provider [id number] visit. RN: Every 4-8 weeks and 3 additional visits as needed in the quarter for medication management, post hospitalization assessment, symptom management, collection of labs and patient/caregiver education. SW: Every 4-6 months, or sooner, if needed or requested for crisis management, caregiver stress, housing issues, establishment of advance directives, financial issues, VA benefits, counseling, and transportation. Visit every 4-6 months as needs are being met at home. Will visit sooner if needed. PT: Comprehensive in-home environmental and functional assessment every 6-12 months. Up to 3 follow up visits (face to face, VVC, telephone) this quarter as clinically indicated for any of the following: change in functional status or safety, post fall evaluation and education; evaluate equipment needs and educate [place] and/or caregiver on safe use. RD: RD will complete a nutrition visit every 6-12 months (VVC, telephone, in person). 3 additional visits in the quarter may be completed (VVC, telephone, in person) as needed for assessment and treatment of any of the following: Nutrition education/counseling, identifying and intervening on significant drug-nutrient interactions and drug-nutrient depletions, assessing ability to prepare recommended meals or administer enteral feeding, identifying food insecurity, performing in home swallow evaluations, identifying and reassessing malnutrition/effectiveness of oral nutrition supplements. PSY: Has not been consulted to meet with but remains available for visits/consultation as needed or upon request of team or [place]. Members present: KEMAR Eubanks for Bill Pickens PsyD; Danay Irving, CLAY STRUCTURE BUILDER AND SERVICER, Reji Bhagat, PT; Alena Padilla RN, Loly Kenyon SEWER SEPARATION DESIGNER, Tali Vasquez Nurse Corporate Communications Specialist, Dr Mo, Mari Freeman Pharm D, Keshia Myrick RD Target date for next review 05/19/25 /angie/ SHIMON PADILLA RN Signed: 02/24/2025 10:20 /es/ LAURY KENYON APRN ADVANCED PRACTICE REGISTERED NURSE, HB Cosigned: 02/24/2025 15:04 Receipt Acknowledged By: 02/24/2025 10:24 /es/ Mari Freeman, Pharm.D. Clinical Pharmacist - [facility] 02/24/2025 13:22 /es/ Alvin Thomas, Ph.D Licensed Clinical Psychologist 02/24/2025 10:23 /es/ Keshia Myrick, RD, LD Clinical Dietitian 02/24/2025 10:26 /es/ [place] MO PHYSICIAN 02/24/2025 10:36 /es/ Tali Vasquez, MSN, RN, CNL [facility] Specialty Therapist/Nurse Corporate Communications Specialist 02/24/2025 10:42 /es/ DANAY IRVING 02/24/2025 10:43 /es/ REJI BHAGAT, PT, DPT PHYSICAL THERAPIST, [facility] 02/24/2025 13:24 /es/ SHIMON PIERCE-D [facility]
--- OUTSIDE RECORDS SUMMARY | 2025-02-24 05:26 | XMS_ITS | Encounter Summary ---
Author Name [facility] [place] [facility] [place] Address [address] [place] [address] Care Team Providers Care Air Turning Machine Feeder Name Role Phone LAURY KENYON Primary Care [...] Name Patient's Relationship to Policy Pascual HUMANA [place] MEDICAL PREFERRED PROVIDER ORGANIZAT ION (PPO) ARELIS ON [employer] Jun 03, 2017 [id number] CATHI ROXI PATIENT HUMANA [facility] (WNR) MEDICARE ADVANTAGE [facility] (WN) Sep 03, 2019 [id number] ROXI WINKLER JR PATIENT HUMANA [facility] (WNR) MEDICARE ADVANTAGE [facility] (WN) Sep 03, 2019 [id number] ROXI WINKLER MCR (WNR) MEDICARE ADVANTAGE HUMAN A INSUR ANCE COM Apr 04, 2019 [id number] ROXI WINKLER MCR (WNR) MEDICARE ADVANTAGE [facility] (WNR) Apr 03, 2019 [id number] ROXI WINKLERA MCR (WNR) MEDICARE ADVANTAGE [facility] (WNR) Apr 03, 2019 [id number] ROXI WINKLER MCR (WNR) MEDICARE ADVANTAGE [facility] (WNR) Apr 03, 2019 [id number] ROXI WINKLER JR PHARMACY PRESCRIPT ION NONE Jun 03, 2017 NONE [id number] ROXI WINKLER MEDICARE PART D (WNR) MEDICARE () PART D Sep 03, 2023 PART D [id number] ROXI WINKLER JR PATIENT Selected Encounter This section includes the [place] for the Encounter. Date/Time Encounter Type Encounter Description Reason Provider Source Feb 24, 2025 09:26 AM Outpatient Encounter [facility] - PHYSICIAN ICD-10-CM I48.91 Unspecified atrial fibrillation TENISHA VALENTINE Adela Encounter Template Text not used by [place] Assessments - Encounter Diagnoses This section includes the primary and secondary diagnoses documented for the Encounter. Date/Time Primary/Secondary Diagnosis Diagnosis Name Provider Source Feb 24, 2025 09:28 AM PRIMARY Unspecified atrial fibrillation TENISHA VALENTINE [facility] Feb 24, 2025 09:28 AM SECONDARY Chronic diastolic (congestive) heart failure [facility] Feb 24, 2025 09:28 AM SECONDARY Chronic obstructive pulmonary disease, unspecified TENISHA VALENTINE [facility] Feb 24, 2025 09:28 AM SECONDARY Chronic respiratory failure with hypoxia [facility] Feb 24, 2025 09:28 AM SECONDARY Essential (primary) hypertension TENISHA VALENTINE [facility] Plan of Treatment: Future Appointments (+ 6 months) and Future Tests (+/- 45 days) The Plan of Treatment section includes future care activities for the patient from all [place] [facility]. This section includes future appointments and future [...] 14, 2025 10:30 AM AMBULATORY - MEDICINE [facility] Social History: Smoking Status (Most current) [...] 06, 2023 10:00 AM VA-TOBACCO NEVER USED [facility] Tobacco Use History This section includes a history of the smoking, or tobacco-related health factors, that were collected on or before the date of the Encounter. The data comes from the [place] facility where the Encounter took place. Date/Time Smoking Status/Tobacco Use Comment F acility Jun 20, 2022 10:30 AM VA-TOBACCO NEVER USED [facility] Jul 27, 2020 03:22 PM VA-TOBACCO NEVER USED [facility] Jul 19, 2018 11:24 AM VA-TOBACCO NEVER USED [facility] Mar 18, 2018 10:14 AM V9 LIFETIME NON-USER OF TOBACCO [facility] Mar 29, 2017 07:47 AM V9 LIFETIME NON-USER OF TOBACCO [facility] Apr 27, 2016 08:56 AM V9 LIFETIME NON-USER OF TOBACCO [facility] May 27, 2015 09:53 AM V9 LIFETIME NON-USER OF TOBACCO [facility] Jun 29, 2014 02:25 PM V9 LIFETIME NON-USER OF TOBACCO [facility] Feb 10, 2013 02:08 PM V9 LIFETIME NON-USER OF TOBACCO [facility] Mar 19, 2012 09:36 AM V9 LIFETIME NON-USER OF TOBACCO [facility] Dec 13, 2010 10:09 AM V9 LIFETIME NON-USER OF TOBACCO [facility] Aug 13, 2006 09:26 AM V9 LIFETIME NON-USER OF TOBACCO [facility] Apr 24, 2006 02:37 PM HF V9 LIFETIME NON-SMOKER [facility] Advance Directives: All historical and [...] 25, 2024 ADVANCE DIRECTIVE DISCUSSION ANTHONY IRVING [facility] Radiology Reports: +/- 30 days of the [...] SHOULDER-LEFT 2 OR MORE VIEWS: ROXI WINKLER [facility] [id number] -1955 M Exm Date: JANUARY 30, 2025@11:14 Req Phys: LAURY KENYON Loc: [place] [facility] RN VST (Req'g Loc) Img Loc: CDD RADIOLOGY Service: [place] [address] (Case [id number] COMPLETE)SHOULDER-LEFT 2 OR MORE VIEWS (RAD Detailed) CPT:16707 Reason for Study: pain Clinical History: Report Status: Verified Date Reported: JANUARY 30, 2025 Date Verified: JANUARY 30, 2025 Preschool Lead Teacher E-Sig: Report: EXAMINATION: LEFT SHOULDER 2 [...] Interpreting Staff: DUSTY SCOTT, Radiologist Verified by family dentist for DUSTY SCOTT /DUSTY GONZALEZ-D [facility] January 30, 2025 10:57 AM U/S ABDOMEN LTD: ROXI WINKLER [facility] [id number] -1955 M Ex Date: JANUARY 30, 2025@10:57 Req Phys: LAURY KENYON Loc: [place] [facility] CHAPTER RELATIONS ADMINISTRATOR PHONE (Req'g Loc) Img Loc: ULTRASOUND Service: [place] [address] (Case [id number] COMPLETE)U/S ABDOMEN LTD (US Detailed) CPT:68025 Reason for Study: bilateral abdominal hematoma increasing in size Clinical History: Report Status: Verified Date Reported: JANUARY 30, 2025 Date Verified: JANUARY 30, 2025 Preschool Lead Teacher E-Sig: Report: EXAMINATION: ULTRASOUND THE ABDOMEN [...] Interpreting Staff: DUSTY SCOTT, Radiologist Verified by family dentist for DUSTY CSOTT /GAIL SCOTT,DUSTY TIRADO-D [facility] Encounter Notes: All associated encounter notes This section contains the clinical notes associated to the Encounter. Date/Time Encounter Note(s) Provider Source Feb 24, 2025 09:26 AM [facility] ATTENDING NOT E: LOCAL TITLE: [facility] ATTENDING NOTE STANDARD TITLE: [facility] ATTENDING NOTE DATE OF NOTE: FEB 24, 2025@09:26 ENTRY DATE: FEB 24, 2025@09:26:28 AUTHOR: TENISHA VALENTINEIGNER: URGENCY: STATUS: COMPLETED I have attended this [...] transfer from toilet, bathing Falls this quarter: one ED visits/Hospitalizations this quarter: none Memory & Mood status: stable ASSESSMENT & PLAN: History of Falling - hospitalization post fall, [facility] PT follows. Contusion present. Essential Hypertension - BP goals met Diabetes Mellitus Type 2 - goals met, liberalized, follows DM clinic COPD on Chronic Respiratory Failure with Hypoxia - on home O2, stable status Chronic Diastolic Congestive Heart Failure - stable, compensated. Follows Cardiology. Atrial Fibrillation - new onset, diagnosed by Cardio clinic, planning to start anticoagulation when post fall hematoma resolves. Code Status: Full Code Care Plan details are in the [facility] Interdisciplinary Plan of Care Note. Estimated time (minutes) spent in preparations, discussions and care plan review: / Tenisha Valentine D.O. [facility] Attending Signed: 02/24/2025 09:30 TENISHA VALENTINE [facility]
--- OUTSIDE RECORDS SUMMARY | 2025-03-03 09:04 | XMS_ITS | Encounter Summary ---
Author Name [facility] [facility] Address [address] [place] [address] Care Team Providers Care Electrical Continuity Tester Name Role Phone LAURY KENYON Primary Care [...] Name Patient's Relationship to Policy P[place]ual HUMANA CLAIMS/[place] MEDICAL PREFERRED PROVIDER ORGANIZAT ION (PPO) [email or web address] Jun 03, 2017 [id number] ROXI WINKLER PATIENT HUMANA [facility] (WNR) MEDICARE ADVANTAGE [facility] (WN) Sep 03, 2019 [id number] ROXI WINKLER JR PATIENT HUMANA [facility] (WNR) MEDICARE ADVANTAGE [facility] (WN) Sep 03, 2019 [id number] [phone] ROXI WINKLER MCR (WNR) MEDICARE ADVANTAGE HUMAN A INSUR ANCE COM Apr 04, 2019 [id number] ROXI WINKLER MCR (WNR) MEDICARE ADVANTAGE MCR (WNR) Apr 03, 2019 [id number] ROXI WINKLERA MCR (WNR) MEDICARE ADVANTAGE MCR (WNR) Apr 03, 2019 [id number] ROXI WINKLER JR MCR (WNR) MEDICARE ADVANTAGE MCR (WNR) Apr 03, 2019 [id number] ROXI WINKLER JR MCR (WNR) MEDICARE ADVANTAGE MCR (WNR) Apr 03, 2019 [id number] ROXI WINKLER PHARMACY PRESCRIPT ION NONE Jun 03, 2017 NONE [id number] ROXI WINKLER PATIENT MEDICARE PART D (WNR) MEDICARE (M) PART D Sep 03, 2023 PART D [id number] ROXI WINKLER JR PATIENT Selected Encounter This section includes the information on record at [place] for the Encounter. Date/Time Encounter Type Encounter Description Reason Pro vider Source Mar 03, 2025 01:04 PM Outpatient Encounter [facility] ASSESSMENT [facility] Encounter Template Text not used by [place] Plan of Treatment: Future Appointments (+ 6 months) and Future Tests (+/- 45 days) The Plan of Treatment section includes future care activities for the patient from all [place] treatmentfacilities. This section includes future appointments and future orders which are active, pending or scheduled. Future Appointments This section includes appointments that were scheduled to occur 6 months from the date of the Encounter, up to a maximum of 20 appointments. The data comes from all [place] treatment facilities. Appointment Date/Time Appointment Type Appointme nt Facility Name Mar 12, 2025 08:00 AM [facility] Apr 14, 2025 10:30 AM [facility] - MEDICINE [facility] Active, Pending, and Scheduled Orders This section includes a listing of several types of active, pending, and scheduled orders, including clinic medications orders, diagnostic test orders, procedure orders and consult orders; where the start date of the order is 45 days before the date of the Encounter or 45 days after the date of theEncounter. The data comes from all [place] treatment facilities. Test Date/Time Test Type Test Details Facility Name Mar 17, 2025 10:07 AM Consult Order [facility] Cons Manager [employer] [facility] Mar 24, 2025 12:00 AM Laboratory - Chemi stry Order DIGOXIN [id number] SP ONCE [facility] Mar 24, 2025 12:00 AM Laboratory - Chemi stry Order PANEL 1 [id number] SP ONCE [facility] Social History: [...] 06, 2023 10:00 AM [place]-TOBACCO NEVER USED [facility] Tobacco Use History This section includes a history of the smoking, or tobacco-related health factors, that were collected on or before the date of the Encounter. The data comes from the [place] facility where the Encounter took place. Date/Time Smoking Status/Tobacco Use Comment F acility Jun 20, 2022 10:30 AM [place]-TOBAC[place] NEVER USED [facility] Jul 27, 2020 03:22 PM [place]-TOBACCO NEVER USED [facility] Jul 19, 2018 11:24 AM VA-TOBACCO NEVER USED [facility] Mar 18, 2018 10:14 AM V9 LIFETIME NON-USER OF TOBACCO [facility] Mar 29, 2017 07:47 AM V9 LIFETIME NON-USER OF TOBACCO [facility] Apr 27, 2016 08:56 AM V9 LIFETIME NON-USER OF TOBACCO [facility] May 27, 2015 09:53 AM V9 LIFETIME NON-USER OF TOBACCO [facility] Jun 29, 2014 02:25 PM V9 LIFETIME NON-USER OF TOBACCO [facility] Feb 10, 2013 02:08 PM V9 LIFETIME NON-USER OF TOBACCO [facility] Mar 19, 2012 09:36 AM V9 LIFETIME NON-USER OF TOBACCO [facility] Dec 13, 2010 10:09 AM V9 LIFETIME NON-USER OF TOBACCO [facility] Aug 13, 2006 09:26 AM V9 LIFETIME NON-USER OF TOBACCO [facility] Apr 24, 2006 02:37 PM HF V9 LIFETIME NON-SMOKER [facility] Advance Directives: All historical and current Section [...] 25, 2024 ADVANCE DIRECTIVE DISCUSSION ANTHONY IRVING [facility] Encounter Notes: All associated encounter notes This section contains the clinical notes associated to the Encounter. Date/Time Encounter Note(s) Provider Source Mar 03, 2025 01:18 PM ADDENDUM: LOCAL TITLE: Addendum STANDARD TITLE: ADDENDUM DATE OF NOTE: MAR 03, 2025@13:18:55 ENTRY DATE: MAR 03, 2025@13:18:56 AUTHOR: LAURY KENYON EXP COSIGNER: URGENCY: STATUS: COMPLETED will need to review [facility] Records before determining if prison is needed. Jeny please request discharge summary. /angie/ LAURY KENYON APRN ADVANCED PRACTICE REGISTERED NURSE, [facility] Signed: 03/03/2025 13:19 Receipt Acknowledged By: 03/05/2025 11:22 /es/ Rosanna Jung RN, MSN, WOCN [employer] Agency Operator 03/04/2025 08:43 /angie/ JENY LORA === --- Original Document --- 03/03/25 N [facility] NOTE: Forwarding message to Rosanna Jung RN CN. [facility] Caller: Nayeli Phone #:[phone] Serice offered: SOC: Frequency: Being dc from [facility] and would like to add SN with JOSEMANUEL.... /es/ RENETTA QUINONESMSN RN MSN,CLINICAL NURSE SPEC. Signed: 03/03/2025 13:06 Receipt Acknowledged By: 03/03/2025 13:16 /es/ Rosanna Jung RN, MSN, VIVIENNE [employer] WORKER Agency Operator 03/03/2025 ADDENDUM STATUS: COMPLETED Please see above request for SN Services. PEDIATRIC OPHTHALMOLOGIST recommending adding SN services If you are agreement with the above recommendations, please concur with addendum and notify [facility]. [facility] will notify home [facility] agency of order for the above services. /angie/ Rosanna Jung RN, MSN, VIVIENNE [employer] WORKER Agency Operator Signed: 03/03/2025 13:15 Receipt Acknowledged By: 03/03/2025 13:16 /es/ LAURY KENYON APRN ADVANCED PRACTICE REGISTERED NURSE, [facility] Mar 03, 2025 01:14 PM ADDENDUM: LOCAL TITLE: Addendum STANDARD TITLE: ADDENDUM DATE OF NOTE: MAR 03, 2025@13:14:20 ENTRY DATE: MAR 03, 2025@13:14:20 AUTHOR: ROSANNA JUNG EXP COSIGNER: URGENCY: STATUS: COMPLETED Please see above request for SN Services. PEDIATRIC OPHTHALMOLOGIST recommending adding SN services If you are agreement with the above recommendations, please concur with addendum and notify [facility]. [facility] will notify home health agency of order for the above services. /angie/ Rsoanna Jung RN, MSN, VIVIENNE [employer] WORKER Agency Operator Signed: 03/03/2025 13:15 Receipt Acknowledged By: 03/03/2025 13:16 /angie/ LAURY KENYON APRN ADVANCED PRACTICE REGISTERED NURSE, [facility] === --- Original Document --- 03/03/25 N [facility]ILL[facility] NOTE: Forwarding message to Rosanna Jung RN CN. Home Health Agency: [facility] Caller: [employer] Phone #:[phone] Serice offered: SOC: Frequency: Being dc from [facility] and would like to add SN with JOSEMANUEL.... /es/ JEN PADILLA RN MSN,CLINICAL NURSE SPEC. Signed: 03/03/2025 13:06 Receipt Acknowledged By: 03/03/2025 13:16 /es/ Rosanna Jung RN, MSN, WOCN [employer] WORKER Agency Operator [facility]NA [facility] Mar 03, 2025 01:05 PM [facility] NOTE: LOCAL TITLE: [facility] CARE NOTE STANDARD TITLE: [facility] NOTE DATE OF NOTE: MAR 03, 2025@13:05 ENTRY DATE: MAR 03, 2025@13:05:06 AUTHOR: RENETTA QUINONES EXP COSIGNER: URGENCY: STATUS: COMPLETED N [facility] NOTE Has ADDENDA Forwarding message to Rosanna Jung RN CN. [facility] Agency: [facility] Caller: Nayeli Phone #:[phone] Serice offered: SOC: Frequency: Being dc from [facility] and would like to add SN with JOSEMANUEL.... /angie/ JEN PADILLA RN MSN,CLINICAL NURSE SPEC. Signed: 03/03/2025 13:06 Receipt Acknowledged By: 03/03/2025 13:16 /angie/ Rosanna Jung RN, MSN, WOCN [employer] WORK[employer] Agency Operator 03/03/2025 ADDENDUM STATUS: COMPLETED Please see above request for SN Services. [facility] recommending adding SN services If you are agreement with the above recommendations, please concur with addendum and notify [facility]. [facility] will notify home health agency of order for the above services. /angie/ Rosanna Jung RN, MSN, WOCN [employer] WORKER Agency Operator Signed: 03/03/2025 13:15 Receipt Acknowledged By: 03/03/2025 13:16 /es/ LAURY KENYON APRN ADVANCED PRACTICE REGISTERED NURSE, [facility] 03/03/2025 ADDENDUM STATUS: COMPLETED will need to review [facility] Records before determining if prison is needed. Jeny please request discharge summary. /angie/ LAURY KENYON APRN ADVANCED PRACTICE REGISTERED NURSE, [facility] Signed: 03/03/2025 13:19 Receipt Acknowledged By: * AWAITING SIGNATURE * ROSANNA JUNG * AWAITING SIGNATURE * JENY STOREY JAMIE L [facility]
--- OUTSIDE RECORDS SUMMARY | 2025-03-04 03:55 | XMS_ITS ---
Author Name [facility] Organization [facility] [place] Address [address] [place] [address] Care Team Providers Care Glue Maker Bone Name Role Phone LAURY KENYON Primary Care [...] ON [employer] Jun 03, 2017 [id number] ROXI WINKLER PATIENT [employer] [facility] (WNR) MEDICARE ADVANTAGE [facility] (WNR) Sep 03, 2019 [id number] ROXI WINKLER JR PATIENT [employer] [facility] (WNR) MEDICARE ADVANTAGE [facility] (WNR) Sep 03, 2019 [id number] [phone] ROXI WINKLER MCR (WNR) MEDICARE ADVANTAGE HUMAN A INSUR ANCE COM Apr 04, 2019 [id number] ROXI WINKLERA MCR (WNR) MEDICARE ADVANTAGE MCR (WNR) Apr 03, 2019 [id number] ROXI WINKLERA MCR (WNR) MEDICARE ADVANTAGE MCR (WNR) Apr 03, 2019 [id number] ROXI WINKLERA MCR (WNR) MEDICARE ADVANTAGE MCR (WNR) Apr 03, 2019 [id number] [phone] ROXI WINKLER JR MCR (WNR) MEDICARE ADVANTAGE MCR (WNR) Apr 03, 2019 [id number] ROXI WINKLER JR PHARMACY PRESCRIPT ION NONE Jun 03, 2017 NONE [id number] [phone] ROXI WINKLER PATIENT MEDICARE PART D ([place]) MEDICARE (M) PART D Sep 03, 2023 PART D [id number] ROXI WINKLER JR PATIENT Selected Encounter This section includes the information on record at [place] for the Encounter. Date/Time Encounter Type Encounter Description Reason Pro vider Source Mar 04, 2025 07:55 AM Outpatient Encounter ADMIN PAT ACTIVTIES (MASNONCT) IHE Encounter Template Text not used by [place] Plan of Treatment: Future Appointments (+ 6 [...] 12, 2025 08:00 AM [facility] Apr 14, 2025 10:30 AM AMBULATORY - MEDICINE [facility] Active, Pending, and Scheduled Orders This section includes a listing of several types of active, pending, and scheduled orders, including clinic medications orders, diagnostic test orders, procedure orders and consult orders; where the start date of the order is 45 days before the date of the Encounter or 45 days after the date of theEncounter. The data comes from all [place] treatment facilities. Test Date/Time Test Type Test Details Facility Name Mar 17, 2025 10:07 AM Consult Order [facility] Cons Engineering Intern's Choice [facility] Mar 24, 2025 12:00 AM Laboratory - Chemi stry Order DIGOXIN DER-LQRE-LATAA SP ONCE [facility] Mar 24, 2025 12:00 AM Laboratory - Chemi stry Order PANEL 1 PAS-VRLFK-LOMMOD SP ONCE [facility] Social History: Smoking Status [...] 05, 2016 01:12 AM NON-TOBACCO USE INPATIENT [facility] Tobacco Use History This section includes a history of the smoking, or tobacco-related health factors, that were collected on or before the date of the Encounter. The data comes from the [place] facility where the Encounter took place. Date/Time Smoking Status/Tobacco Use Comment F acility Nov 24, 2015 04:48 PM NON-TOBACCO USE INPATIENT [facility] Oct 01, 2014 07:15 PM NON-TOBACCO USE INPATIENT [facility] Apr 10, 2005 01:20 PM HF V9 LIFETIME NON-SMOKER [facility] Nov 24, 2003 03:11 PM HF V9 LIFETIME NON-SMOKER [facility] Oct 07, 2002 02:26 PM HF V9 LIFETIME NON-SMOKER [facility] Advance Directives: All historical and [...] Sep 25, 2024 ADVANCE DIRECTIVE DISCUSSION [facility] Encounter Notes: All associated encounter notes This section contains the clinical notes associated to the Encounter. Date/Time Encounter Note(s) Provider Source Feb 28, 2025 07:55 AM NONVA NOTE: LOCAL TITLE: OUTSIDE MEDICAL RECORD-FEE OUTPATIENT STANDARD TITLE: NONVA NOTE DATE OF NOTE: FEB 28, 2025@07:55 ENTRY DATE: MAR 04, 2025@07:55:32 AUTHOR: MIR ROSE EXP COSIGNER: URGENCY: STATUS: COMPLETED The scanned document may be viewed in [employer]. /angie/ MIR ROSE GENERAL SUPERVISOR Signed: 03/04/2025 07:55 MIR ROSE [facility]
--- OUTSIDE RECORDS SUMMARY | 2025-03-05 07:58 | XMS_ITS | Encounter Summary ---
Author Name [facility] [place] Organization [facility] [place] Address [address] [place] [address] Care Team Providers Care Slitter Creaser Slotter Helper Name Role Phone LAURY KENYON Primary [...] ON [employer] Jun 03, 2017 [id number] ROXI WINKLER PATIENT [employer] [facility] (WNR) MEDICARE ADVANTAGE [facility] (WNR) Sep 03, 2019 [id number] ROXI WINKLER JR PATIENT [employer] [facility] (WNR) MEDICARE ADVANTAGE [facility] (WNR) Sep 03, 2019 [id number] [phone] ROXI WINKLERA MCR (WNR) MEDICARE ADVANTAGE HUMAN A INSUR ANCE COM Apr 04, 2019 [id number] ROXI WINKLERA MCR (WNR) MEDICARE ADVANTAGE MCR (WNR) Apr 03, 2019 [id number] ROXI WINKLERA MCR (WNR) MEDICARE ADVANTAGE MCR (WNR) Apr 03, 2019 [id number] ROXI WINKLER JRA MCR (WNR) MEDICARE ADVANTAGE MCR (WNR) Apr 03, 2019 [id number] ROXI WINKLER MCR (WNR) MEDICARE ADVANTAGE MCR (WNR) Apr 03, 2019 [id number] ROXI WINKLER JR PHARMACY PRESCRIPT ION NONE Jun 03, 2017 NONE [id number] ROXI WINKLER PATIENT MEDICARE PART D (WNR) MEDICARE (M) PART D Sep 03, 2023 PART D [id number] ROXI WINKLER JR PATIENT Selected Encounter This section includes the information on record at [place] for the Encounter. Date/Time Encounter Type Encounter Description Reason Pro vider Source Mar 05, 2025 11:58 AM Outpatient Encounter ADMIN PAT ACTIVTIES (MASNONCT) IHE Encounter Template Text not used by [place] Plan of Treatment: Future Appointments (+ 6 months) and Future Tests (+/- 45 days) The Plan of Treatment section includes future care activities for the patient from all [place] treatmentfacilities. This section includes future appointments and future orders which are active, pending or scheduled. Future Appointments This section includes appointments that were scheduled to occur 6 months from the date of the Encounter, up to a maximum of 20 appointments. The data comes from all [place] treatment facilities. Appointment Date/Time Appointment Type Appointme nt Facility Name Mar 12, 2025 08:00 AM [facility] Apr 14, 2025 10:30 AM AMBULATORY - MEDICINE [facility] Active, Pending, and Scheduled Orders This section includes a listing of several types of active, pending, and scheduled orders, including clinic medications orders, diagnostic test orders, procedure orders and consult orders; where the start date of the order is 45 days before the date of the Encounter or 45 days after the date of theEncounter. The data comes from all [place] treatment facilities. Test Date/Time Test Type Test Details Facility Name Mar 17, 2025 10:07 AM Consult Order [facility] Cons Leak Inspector's Choice [facility] Mar 24, 2025 12:00 AM Laboratory - Chemi stry Order DIGOXIN IGY-[id number]-[id number] SP ONCE [facility] Mar 24, 2025 12:00 AM Laboratory - Chemi stry Order PANEL 1 [id number] SP ONCE [facility] Social History: Smoking Status (Most current) and Tobacco Use (All prior to encounter date) This section includes the most current, and the historical, smoking and tobacco- related health factors from the [place] facility where the Encounter took place. Current Smoking Status This section includes the most current smoking, or tobacco-related health factor, from the [place] facility where the Encounter took place. Date/Time Current Smoking Status Comment Facil ity May 05, 2016 01:12 AM NON-TOBACCO USE INPATIENT [facility] Tobacco Use History This section includes a history of the smoking, or tobacco-related health factors, that were collected on or before the date of the Encounter. The data comes from the [place] facility where the Encounter took place. Date/Time Smoking Status/Tobacco Use Comment F acility Nov 24, 2015 04:48 PM NON-TOBACCO USE INPATIENT [facility] Oct 01, 2014 07:15 PM NON-TOBACCO USE INPATIENT [facility] Apr 10, 2005 01:20 PM HF V9 LIFETIME NON-SMOKER [facility] Nov 24, 2003 03:11 PM HF V9 LIFETIME NON-SMOKER [facility] Oct 07, 2002 02:26 PM HF V9 LIFETIME NON-SMOKER [facility] Advance Directives: All historical and current Section Date Range: From patient's date of to the date document was created. This section includes ALL of a patient's completed or amended [place] Advance and Rescinded Directives. The entries below indicate that a directive exists for the patient, but an actual copy is not included with this document. The data comes from all [place] facilities. Date Advance Directives Provider Source Sep 25, 2024 ADVANCE DIRECTIVE DISCUSSION [facility] Encounter Notes: All associated encounter notes This section contains the clinical notes associated to the Encounter. Date/Time Encounter Note(s) Provider Source Feb 27, 2025 11:58 AM NONVA NOTE: LOCAL TITLE: OUTSIDE MEDICAL RECORD-OTHER STANDARD TITLE: NONVA NOTE DATE OF NOTE: FEB 27, 2025@11:58 ENTRY DATE: MAR 05, 2025@11:58:30 AUTHOR: MIR ROSE EXP COSIGNER: URGENCY: STATUS: COMPLETED The scanned document may be viewed in [employer]. /angie/ MIR ROSE SENIOR OPERATOR Signed: 03/05/2025 11:58 MIR ROSE [facility]
--- OUTSIDE RECORDS SUMMARY | 2025-03-12 20:00 | XMS_ITS | Clinical Summary ---
Author Organization Unknown Care Team Providers Care Washing Machine Assembler Name Role Phone CHANTALE WVLAURY Unavailable Unavailable MATTY PT, ESME Unavailable Unavailable TAMMY ENTRY LEVEL ASSISTANT MANAGER, SHANIQUE Unavailable Unavailable Payers Payer Name Policy Type Policy Number Effective Date Expira tion Date [facility].[email or web address].[email or web address].[email or web address].AUTH Problems Condition Name Condition Details Condition Category Status Onset Date Resolution Date Last Treatment Date Treating Clinician Comments ENCEPHALOPAT HY, UNSPECIFIED Active 02-27 00:00: 00 ACUTE AND CHRONIC RESPIRATORY FAILURE WITH HYPOXIA Active 02-27 00:00: 00 ACUTE AND CHRONIC RESPIRATORY FAILURE WITH HYPERCAPNIA Active 02-27 00:00: 00 NONTRAUMATIC HEMATOMA OF SOFT TISSUE Active 2023-09 00:00: 00 TYPE 2 DIABETES MELLITUS WITH HYPERGLYCEMI A Active 09-03 00:00: 00 CHRONIC OBSTRUCTIVE PULMONARY DISEASE, UNSPECIFIED Active 09-03 00:00: 00 HYPERTENSIVE HEART DISEASE WITH HEART FAILURE Active 09-03 00:00: 00 ACUTE ON CHRONIC DIASTOLIC (CONGESTIVE) HEART FAILURE Active 2023-09 00:00: 00 TYPE 2 DIABETES MELLITUS WITH FOOT ULCER Active 02-27 00:00: 00 NON-PRS CHRONIC ULCER OTH PRT L FOOT LIMITED TO BRKDWN SKIN Active 02-27 00:00: 00 VENOUS INSUFFICIENC Y (CHRONIC) (PERIPHERAL) Active 02-27 00:00: 00 ATHSCL HEART DISEASE OF [place] CORONARY ARTERY W/O ANG PCTRS Active 09-03 00:00: 00 UNSPECIFIED ATRIAL FIBRILLATION Active 09-03 00:00: 00 MULTIPLE FX OF RIBS, LEFT SIDE, SUBS FOR FX W ROUTN HEAL Active 2023-09 00:00: 00 MUSCLE WEAKNESS (GENERALIZED ) Active 09-03 00:00: 00 BENIGN PROSTATIC HYPERPLASIA WITHOUT LOWER URINRY TRACT SYMP Active 09-03 00:00: 00 OBSTRUCTIVE SLEEP APNEA (ADULT) (PEDIATRIC) Active 09-03 00:00: 00 GASTRO-ESOPH AGEAL REFLUX DISEASE WITHOUT ESOPHAGITIS Active 02-27 00:00: 00 HYPERLIPIDEM IA, UNSPECIFIED Active 02-27 00:00: 00 OBESITY, UNSPECIFIED Active 09-03 00:00: 00 BODY MASS INDEX [BMI] 33.0-33.9, ADULT Active 09-03 00:00: 00 PERSONAL HISTORY OF PNEUMONIA (RECURRENT) Active 2023-09 217 00:00: 00 HISTORY OF FALLING Active 02-10 00:00: 00 DEPENDENCE ON SUPPLEMENTAL OXYGEN Active 09-03 00:00: 00 NURSING HOME (CURRENT) USE OF ORAL HYPOGLYCEMIC DRUGS Active 09-03 00:00: 00 ASYMPTOMATIC HUMAN IMMUNODEFICI ENCY VIRUS INFECTION STATUS Active 09-03 00:00: 00 UNSPECIFIED FALL, SUBSEQUENT ENCOUNTER Active 11-01 00:00: 00 Allergies, Adverse Reactions, Alerts Allergy Name Allergy Type Status Severity Reaction(s) Onset Date Inactive Date Treating Clinician Comments SANDRA INHIBITORS Propensity to adverse reactions Active 09-16 07:33: 17 CLOFIBRATE Propensity to adverse reactions Active 09-16 07:33: 48 ENALAPRIL Propensity to adverse reactions Active 09-16 07:33: 56 ERYTHROCIN Propensity to adverse reactions Active 09-16 07:34: 11 GEMFIBROZIL Propensity to adverse reactions Active 09-16 07:34: 21 HEPATITIS A VACCINE Propensity to adverse reactions Active 09-16 07:34: 30 HYDRALAZINE Propensity to adverse reactions Active 09-16 07:34: 38 MACROLIDES Propensity to adverse reactions Active 09-16 07:34: 48 PRAVASTATIN Propensity to adverse reactions Active 09-16 07:34: 53 HMG-COA REDUCTASE INHIBITORS Propensity to adverse reactions Active 09-16 07:35: 03 Medications Ordered Medication Name Filled Medication Name Start Date Stop Date Current Medication? Ordering Clinician Indication Dosage Frequency Signature (SIG) Comments Components acetaminoph en 325 mg tablet 11-20 00:00: 00 06-23 23:59 :00 No [id number] PAIN 3 tablet 2 TIMES DAILY 3 tablet 2 TIMES DAILY (route: oral) Med Classific ation: Analgesic , Anti-infl ammatory or Antipyret ic alogliptin 25 mg tablet 11-20 00:00: 00 06-23 23:59 :00 No [id number] BLOOD SUGAR 1 tablet DAILY 1 tablet DAILY (route: oral) Med Classific ation: Endocrine Aspirin Childrens 81 mg chewable tablet 11-20 00:00: 00 06-23 23:59 :00 No [id number] HEART 1 tablet DAILY 1 tablet DAILY (route: oral) Med Classific ation: Hematolog ical Agents bumetanide 2 mg tablet 11-20 00:00: 00 06-23 23:59 :00 No [id number] EDEMA 1 tablet DAILY 1 tablet DAILY (route: oral) Med Classific ation: Cardiovas cular Therapy Agents cholecalcif trav (vitamin D3) 25 mcg (1,000 unit) tablet 11-20 00:00: 00 06-23 23:59 :00 No [id number] SUPPLEMENT 1 tablet DAILY 1 tablet DAILY (route: oral) Med Classific ation: Electroly te Balance-N utritiona l Products ferrous sulfate 324 mg (65 mg iron) tablet,chapito yed release 11-20 00:00: 00 06-23 23:59 :00 No [id number] SUPPLEMENT 1 tablet DAILY 1 tablet DAILY (route: oral) Med Classific ation: Electroly te Balance-N utritiona l Products finasteride 5 mg tablet 11-20 00:00: 00 06-23 23:59 :00 No [id number] PROSTATE 1 tablet DAILY 1 tablet DAILY (route: oral) Med Classific ation: Genitouri nary Therapy gabapentin 300 mg capsule 11-20 00:00: 00 06-23 23:59 :00 No [id number] NERVE DAMAGE Per instruc tions DIRECTED Per instructio ns DIRECTED (route: oral) Med Classific ation: Central Nervous System Agents glucose 4 gram chewable tablet 11-20 00:00: 00 06-23 23:59 :00 No [id number] LOW BLOOD SUGAR 4 tablet NEEDED 4 tablet NEEDED (route: oral) Med Classific ation: Endocrine Humulin R U-500 (Conc) Insulin Kwikpen 500 unit/mL (3 mL) subcutaneou s 11-19 00:00: 00 06-23 23:59 :00 No [id number] T2DM Per instruc tions DIRECTED Per instructio ns DIRECTED (route: subcutaneo us) Med Classific ation: Endocrine Jardiance 25 mg tablet 11-20 00:00: 00 06-23 23:59 :00 No [id number] T2DM 0.5 tablet DAILY 0.5 tablet DAILY (route: oral) Med Classific ation: Endocrine methocarbam ol 750 mg tablet 11-20 00:00: 00 06-23 23:59 :00 No [id number] MUSCLE SPASMS 1 tablet EVERY 6 HOURS 1 tablet EVERY 6 HOURS (route: oral) Med Classific ation: Locomotor System metoprolol tartrate 100 mg tablet 11-20 00:00: 00 06-23 23:59 :00 No [id number] BLOOD PRESSURE 1 tablet 2 TIMES DAILY 1 tablet 2 TIMES DAILY (route: oral) Med Classific ation: Cardiovas cular Therapy Agents pantoprazol e 40 mg tablet,chapito yed release 11-20 00:00: 00 06-23 23:59 :00 No [id number] STOMACH 1 tablet 2 TIMES DAILY 1 tablet 2 TIMES DAILY (route: oral) Med Classific ation: Gastroint estinal Therapy Agents tamsulosin 0.4 mg capsule 11-20 00:00: 00 06-23 23:59 :00 No [id number] PROSTATE 1 capsule BEDTIME 1 capsule BEDTIME (route: oral) Med Classific ation: Genitouri nary Therapy tramadol 50 mg tablet 11-20 00:00: 00 06-23 23:59 :00 No [id number] PAIN 1 tablet EVERY 6 HOURS 1 tablet EVERY 6 HOURS (route: oral) Med Classific ation: Analgesic , Anti-infl ammatory or Antipyret ic venlafaxine ER 150 mg tablet,exte nded release 24 hr 11-20 00:00: 00 06-23 23:59 :00 No [id number] PAIN 1 tablet DAILY 1 tablet DAILY (route: oral) Med Classific ation: Central Nervous System Agents etodolac 400 mg tablet 11-20 00:00: 00 06-23 23:59 :00 No [id number] PAIN/INFLAM MATION 1 tablet EVERY 6 HOURS 1 tablet EVERY 6 HOURS (route: oral) Med Classific ation: Analgesic , Anti-infl ammatory or Antipyret ic alogliptin 25 mg tablet 2023-09 00:00: 00 09-15 00:00 :00 No [id number] T2DM 1 tablet DAILY 1 tablet DAILY (route: oral) Med Classific ation: Endocrine ascorbic acid (vitamin C) 500 mg tablet 2023-09 00:00: 00 Yes [id number] SUPPLEMENT 1 tablet DAILY 1 tablet DAILY (route: oral) Med Classific ation: Electroly te Balance-N utritiona l Products Aspirin Childrens 81 mg chewable tablet 2023-09 00:00: 00 09-15 00:00 :00 No [id number] HEART 1 tablet DAILY 1 tablet DAILY (route: oral) Med Classific ation: Hematolog ical Agents Biktarvy 50 mg-200 mg-25 mg tablet 2023-09 00:00: 00 Yes [id number] IMMUNE 1 tablet DAILY 1 tablet DAILY (route: oral) Med Classific ation: Anti-Infe ctive Agents bumetanide 2 mg tablet 2023-09 00:00: 00 Yes [id number] EDEMA 1 tablet 2 TIMES DAILY 1 tablet 2 TIMES DAILY (route: oral) Med Classific ation: Cardiovas cular Therapy Agents ferrous sulfate 324 mg (65 mg iron) tablet,chapito yed release 2023-09 00:00: 00 Yes [id number] SUPPLEMENT 1 tablet DAILY 1 tablet DAILY (route: oral) Med Classific ation: Electroly te Balance-N utritiona l Products finasteride 5 mg tablet 2023-09 00:00: 00 Yes [id number] PROSTATE 1 tablet DAILY 1 tablet DAILY (route: oral) Med Classific ation: Genitouri nary Therapy gabapentin 300 mg capsule 2023-09 00:00: 00 Yes [id number] PAIN 2 capsule DAILY 2 capsule DAILY (route: oral) Med Classific ation: Central Nervous System Agents Humulin R U-500 (Conc) Insulin Kwikpen 500 unit/mL (3 mL) subcutaneou s 2023-09 00:00: 00 09-15 00:00 :00 No [id number] T2DM 65 unit 2 TIMES DAILY 65 unit 2 TIMES DAILY (route: subcutaneo us) Med Classific ation: Endocrine Jardiance 25 mg tablet 2023-09 00:00: 00 09-15 00:00 :00 No [id number] T2DM 0.5 tablet DAILY 0.5 tablet DAILY (route: oral) Med Classific ation: Endocrine methocarbam ol 750 mg tablet 2023-09 00:00: 00 Yes [id number] MUSCLE SPASMS 1 tablet 3 TIMES DAILY 1 tablet 3 TIMES DAILY (route: oral) Med Classific ation: Locomotor System metoprolol tartrate 100 mg tablet 2023-09 00:00: 00 Yes [id number] BLOOD PRESSURE 1 tablet 2 TIMES DAILY 1 tablet 2 TIMES DAILY (route: oral) Med Classific ation: Cardiovas cular Therapy Agents Protonix 40 mg tablet,chapito yed release 2023-09 00:00: 00 Yes [id number] GERD 1 tablet DAILY 1 tablet DAILY (route: oral) Med Classific ation: Gastroint estinal Therapy Agents Stiolto Respimat 2.5 mcg-2.5 mcg/actuati on solution for inhalation 2023-09 00:00: 00 Yes [id number] BREATHING 2 puff DAILY 2 puff DAILY (route: inhalation ) Med Classific ation: Respirato ry Therapy Agents tamsulosin 0.4 mg capsule 2023-09 00:00: 00 Yes [id number] PROSTATE 1 capsule DAILY 1 capsule DAILY (route: oral) Med Classific ation: Genitouri nary Therapy tramadol 50 mg tablet 2023-09 00:00: 00 Yes [id number] PAIN 1 tablet 3 TIMES DAILY 1 tablet 3 TIMES DAILY (route: oral) Med Classific ation: Analgesic , Anti-infl ammatory or Antipyret ic venlafaxine ER 150 mg tablet,exte nded release 24 hr 2023-09 00:00: 00 Yes [id number] MOOD 1 tablet DAILY 1 tablet DAILY (route: oral) Med Classific ation: Central Nervous System Agents Ventolin HFA 90 mcg/actuati on aerosol inhaler 2023-09 00:00: 00 09-15 00:00 :00 No [id number] BREATHING 2 puff EVERY 4 HOURS 2 puff EVERY 4 HOURS (route: inhalation ) Med Classific ation: Respirato ry Therapy Agents Vitamin D3 25 mcg (1,000 unit) tablet 2023-09 00:00: 00 Yes [id number] SUPPLEMENT 1 tablet DAILY 1 tablet DAILY (route: oral) Med Classific ation: Electroly te Balance-N utritiona l Products digoxin 125 mcg (0.125 mg) tablet 09-15 00:00: 00 02-20 23:59 :00 No [id number] HEART 1 tablet DAILY 1 tablet DAILY (route: oral) Med Classific ation: Cardiovas cular Therapy Agents diltiazem 60 mg tablet 09-15 00:00: 00 Yes [id number] ANGINA 1 tablet EVERY 8 HOURS 1 tablet EVERY 8 HOURS (route: oral) Med Classific ation: Cardiovas cular Therapy Agents Jardiance 10 mg tablet 09-15 00:00: 00 02-20 23:59 :00 No [id number] T2DM 1 tablet DAILY 1 tablet DAILY (route: oral) Med Classific ation: Endocrine sitagliptin 100 mg tablet 09-15 00:00: 00 Yes [id number] T2DM 1 tablet DAILY 1 tablet DAILY (route: oral) Med Classific ation: Endocrine buprenorphi ne 7.5 mcg/hour weekly transdermal patch 02-23 00:00: 00 Yes [id number] PAIN 1 patch, transde rmal weekly WEEKLY 1 patch, transderma l weekly WEEKLY (route: transderma l) Med Classific ation: Analgesic , Anti-infl ammatory or Antipyret ic Advil 200 mg tablet 02-20 00:00: 00 Yes [id number] PAIN 2 tablet DAILY 2 tablet DAILY (route: oral) Med Classific ation: Analgesic , Anti-infl ammatory or Antipyret ic amoxicillin 875 mg-potassiu m clavulanate 125 mg tablet 02-23 00:00: 00 02-27 23:59 :00 No [id number] PNEUMONIA 1 tablet 2 TIMES DAILY 1 tablet 2 TIMES DAILY (route: oral) Med Classific ation: Anti-Infe ctive Agents azithromyci n 500 mg tablet 02-23 00:00: 00 Yes [id number] PNEUMONIA 1 tablet DAILY 1 tablet DAILY (route: oral) Med Classific ation: Anti-Infe ctive Agents Humulin R U-500 (Conc) Insulin Kwikpen 500 unit/mL (3 mL) subcutaneou s 02-24 00:00: 00 Yes [id number] DM Per instruc tions 2 TIMES DAILY Per instructio ns 2 TIMES DAILY (route: subcutaneo us) Med Classific ation: Endocrine oxygen gas for inhalation 02-20 00:00: 00 Yes [id number] SOA 3 Liter O2 - CONTINUOUS 3 Liter O2 - CONTINUOUS (route: inhalation ) Med Classific ation: Medical Supplies and Durable Medical Equipment (DME) digoxin 125 mcg (0.125 mg) tablet 03-14 00:00: 00 Yes [id number] AFIB 1 tablet DAILY 1 tablet DAILY (route: oral) Med Classific ation: Cardiovas cular Therapy Agents Vital Signs Vital Name Observation Time Observation Value Commen ts Temperature 2025-03-12 14:53:00.000 97.6 [degF] Temperature 2025-03-05 11:28:00.000 98 [degF] Temperature 2025-02-24 10:43:00.000 97.5 [degF] Temperature 2025-02-13 14:54:00.000 97.5 [degF] Temperature 2025-01-29 13:37:00.000 97 [degF] Temperature 2025-01-13 15:37:00.000 97.6 [degF] BMI (%) 2025-03-05 11:28:00.000 31 kg/m2 Height 2025-03-05 11:28:00.000 73 [in_us] Pulse 2025-03-12 14:53:00.000 65 /min Pulse 2025-03-05 11:28:00.000 77 /min Pulse 2025-02-24 10:43:00.000 87 /min Pulse 2025-02-13 14:54:00.000 85 /min Pulse 2025-01-29 13:37:00.000 70 /min Pulse 2025-01-13 15:37:00.000 72 /min O2 Saturation (%) 2025-03-12 14:53:00.000 91 % O2 Saturation (%) 2025-02-24 10:43:00.000 97 % O2 Saturation (%) 2025-02-13 14:54:00.000 94 % O2 Saturation (%) 2025-01-29 13:37:00.000 95 % O2 Saturation (%) 2025-01-13 15:37:00.000 94 % Respirations 2025-03-12 14:53:00.000 18 /min Respirations 2025-03-05 11:28:00.000 18 /min Respirations 2025-02-24 10:43:00.000 19 /min Respirations 2025-02-13 14:54:00.000 18 /min Respirations 2025-01-29 13:37:00.000 18 /min Respirations 2025-01-13 15:37:00.000 18 /min Weight (lbs) 2025-03-05 11:28:00.000 242 [lb_av] Systolic Blood Pressure 2025-03-12 14:53:00.000 118 mm [Hg] Systolic Blood Pressure 2025-03-05 11:28:00.000 105 mm [Hg] Systolic Blood Pressure 2025-02-24 10:43:00.000 122 mm [Hg] Systolic Blood Pressure 2025-02-13 14:54:00.000 138 mm [Hg] Systolic Blood Pressure 2025-01-29 13:37:00.000 114 mm [Hg] Systolic Blood Pressure 2025-01-13 15:37:00.000 135 mm [Hg] Diastolic Blood Pressure 2025-03-12 14:53:00.000 64 mm [Hg] Diastolic Blood Pressure 2025-03-05 11:28:00.000 60 mm [Hg] Diastolic Blood Pressure 2025-02-24 10:43:00.000 76 mm [Hg] Diastolic Blood Pressure 2025-02-13 14:54:00.000 88 mm [Hg] Diastolic Blood Pressure 2025-01-29 13:37:00.000 63 mm [Hg] Diastolic Blood Pressure 2025-01-13 15:37:00.000 65 mm [Hg] Plan of Treatment Planned Activity Planned Date Details Comments Future Scheduled Test AGENCY MAY PERFORM A RESUMPTION OF CARE VISIT FOLLOWING ANY HOSPITAL ADMISSION. PT TO EVALUATE, OBSERVE / ASSESS, AND MONITOR, ENTRY LEVEL ASSISTANT MANAGER TO OBSERVE AND MONITOR, PROVIDE SKILLED THERAPEUTIC INTERVENTION, ACTIVITY, EDUCATION, AND TRAINING TO ADDRESS; [code = AGENCY MAY PERFORM A RESUMPTION OF CARE VISIT FOLLOWING ANY HOSPITAL ADMISSION. PT TO EVALUATE, OBSERVE / ASSESS, AND MONITOR, ENTRY LEVEL ASSISTANT MANAGER TO OBSERVE AND MONITOR, PROVIDE SKILLED THERAPEUTIC INTERVENTION, ACTIVITY, EDUCATION, AND TRAINING TO ADDRESS;] Future Scheduled Test THERAPEUTI C EXERCISES AND ESTABLISHING A HOME EXERCISE PROGRAM (PT/ENTRY LEVEL ASSISTANT MANAGER) [code = THERAPEUTIC EXERCISES AND ESTABLISHING A HOME EXERCISE PROGRAM (PT/ENTRY LEVEL ASSISTANT MANAGER)] Future Scheduled Test NEUROMUSCU LAR RE-EDUCATION / BALANCE / POSTURAL CONTROL (PT) [code = NEUROMUSCULAR RE-EDUCATION / BALANCE / POSTURAL CONTROL (PT)] Future Scheduled Test PT/ENTRY LEVEL ASSISTANT MANAGER TO PROVIDE GAIT TRAINING FOR IMPROVED MOBILITY AND /OR TO NORMALIZE GAIT PATTERN [code = PT/ENTRY LEVEL ASSISTANT MANAGER TO PROVIDE GAIT TRAINING FOR IMPROVED MOBILITY AND /OR TO NORMALIZE GAIT PATTERN] Future Scheduled Test SIT TO/FRO M STAND TRANSFERS (PT/ENTRY LEVEL ASSISTANT MANAGER) [code = SIT TO/FROM STAND TRANSFERS (PT/ENTRY LEVEL ASSISTANT MANAGER)] Goal Patient Goal - R ETURN TO INDEPENDENCE WITH FUNCTIONAL ACTIVITIES WITH AD, NOT FALL Goal 2025-03-12 Patient Goal - R ETURN TO INDEPENDENCE WITH FUNCTIONAL ACTIVITIES WITH AD, NOT FALL Goal 2024-11-12 Patient Goal - R ETURN TO INDEPENDENCE WITH FUNCTIONAL ACTIVITIES WITH AD, NOT FALL Goal 2025-01-08 Patient Goal - R ETURN TO INDEPENDENCE WITH FUNCTIONAL ACTIVITIES WITH AD, NOT FALL Goal 2025-03-05 Patient Goal - R ETURN TO INDEPENDENCE WITH FUNCTIONAL ACTIVITIES WITH AD, NOT FALL Goal Provider Goal - Goal Provider Goal - PT STG: PATIENT WILL DEMONSTRATE IMPROVED FUNCTIONAL STRENGTH EVIDENCED BY FIVE TIMES SIT TO STAND TEST (CUT SCORE >12 SECONDS INDICATES AN INCREASED FALL RISK) IMPROVING FROM 28 SECONDS TO LESS THAN OR EQUAL TO 22 SECONDS WITHIN 4 WEEKS IN ORDER TO DECREASE FALL RISK PT LTG: PATIENT WILL DEMONSTRATE IMPROVED FUNCTIONAL STRENGTH EVIDENCED BY FIVE TIMES SIT TO STAND TEST (CUT SCORE >12 SECONDS INDICATES AN INCREASED FALL RISK) IMPROVING FROM 28 SECONDS TO LESS THAN OR EQUAL TO 12 SECONDS WITHIN 8 WEEKS IN ORDER TO DECREASE FALL RISK PT LTG: PATIENT WILL DEMONSTRATE INDEPENDENCE AND COMPLIANCE WITH HEP WITHIN 4 WEEKS Goal Provider Goal - PT STG: PATIENT WILL DEMONSTRATE REDUCED FALL RISK EVIDENCED BY TUG TEST (CUT SCORE >11 SECONDS INDICATES INCREASED FALL RISK) IMPROVING FROM 39 SECONDS TO LESS THAN OR EQUAL TO 33 SECONDS WITHIN 4 WEEKS PT LTG: PATIENT WILL DEMONSTRATE REDUCED FALL RISK EVIDENCED BY TUG TEST (CUT SCORE >11 SECONDS INDICATES INCREASED FALL RISK) IMPROVING FROM 39 SECONDS TO LESS THAN OR EQUAL TO 20 SECONDS WITHIN 8 WEEKS Goal Provider Goal - PT LTG: PATIENT WILL DEMONSTRATE IMPROVED 6 MINUTE WALK TEST AMBULATION FROM 60 FT MIN TO 150 FT IND WITH APPROPRIATE AD WITHIN 8 WEEKS. Goal Provider Goal - PT STG: PATIENT WILL DEMONSTRATE IMPROVED ABILITY TO PERFORM SIT TO/FROM STAND TRANSFERS TO REDUCE THE RISK OF SKIN BREAKDOWN AND REDUCE FALL RISK FROM SBA TO IND WITHIN 8 WEEKS Encounters Start Date/Time End Date/Time Encounter Type Admission Type Attending [facility] Care Department Encounter ID Discharge Date Discharge Status Discharge Condition Discharge Reason Percent Goals Met 2025-01-13 00:00:00 2025-03-13 00:00:00 Outpatient RECERTIFIC ESME [facility] [id number]
--- OUTSIDE RECORDS SUMMARY | 2025-03-12 20:00 | XMS_ITS | Clinical Summary ---
Author Organization Unknown Care Team Providers Care Molder Foam Rubber Name Role Phone [facility] Unavailable Unavailable MATTY PT, ESME Unavailable Unavailable TAMMY COMPUTER PERIPHERAL EQUIPMENT OPERATOR, SHANIQUE Unavailable Unavailable Payers Payer Name Policy Type Policy Number Effective Date Expira tion Date [facility].OPTUM.VACCN.PDGM.C.AUTH Problems Condition Name Condition Details [...] 02-27 00:00: 00 ATHSCL HEART DISEASE OF [place] CORONARY ARTERY W/O ANG PCTRS Active 09-03 [...] ON SUPPLEMENTAL OXYGEN Active 09-03 00:00: 00 [facility] (CURRENT) USE OF ORAL HYPOGLYCEMIC DRUGS Active [...] 11-20 00:00: 00 06-23 23:59 :00 No [id number] PAIN 3 tablet 2 TIMES DAILY 3 tablet 2 TIMES DAILY (route: oral) Med Classific ation: Analgesic , Anti-infl ammatory or Antipyret ic alogliptin 25 mg tablet 11-20 00:00: 00 06-23 23:59 :00 No [id number] BLOOD SUGAR 1 tablet DAILY 1 tablet DAILY (route: oral) Med Classific ation: Endocrine Aspirin Childrens 81 mg chewable tablet 11-20 00:00: 00 06-23 23:59 :00 No [id number] HEART 1 tablet DAILY 1 tablet DAILY (route: oral) Med Classific ation: Hematolog ical Agents bumetanide 2 mg tablet 11-20 00:00: 00 06-23 23:59 :00 No [id number] EDEMA 1 tablet DAILY 1 tablet DAILY (route: oral) Med Classific ation: Cardiovas cular Therapy Agents cholecalcif trav (vitamin D3) 25 mcg (1,000 unit) tablet 11-20 00:00: 00 06-23 23:59 :00 No [id number] SUPPLEMENT 1 tablet DAILY 1 tablet DAILY (route: oral) Med Classific ation: Electroly te Balance-N utritiona l Products ferrous sulfate 324 mg (65 mg iron) tablet,chapito yed release 11-20 00:00: 00 06-23 23:59 :00 No [id number] SUPPLEMENT 1 tablet DAILY 1 tablet DAILY (route: oral) Med Classific ation: Electroly te Balance-N utritiona l Products finasteride 5 mg tablet 11-20 00:00: 00 06-23 23:59 :00 No [id number] PROSTATE 1 tablet DAILY 1 tablet DAILY (route: oral) Med Classific ation: Genitouri nary Therapy gabapentin 300 mg capsule 11-20 00:00: 00 06-23 23:59 :00 No [id number] NERVE DAMAGE Per instruc tions DIRECTED Per instructio ns DIRECTED (route: oral) Med Classific ation: Central Nervous System Agents glucose 4 gram chewable tablet 11-20 00:00: 00 06-23 23:59 :00 No [id number] LOW BLOOD SUGAR 4 tablet NEEDED 4 tablet NEEDED (route: oral) Med Classific ation: Endocrine Humulin R U-500 (Conc) Insulin Kwikpen 500 unit/mL (3 mL) subcutaneou s 11-19 00:00: 00 06-23 23:59 :00 No [id number] T2DM Per instruc tions DIRECTED Per instructio ns DIRECTED (route: subcutaneo us) Med Classific ation: Endocrine Jardiance 25 mg tablet 11-20 00:00: 00 06-23 23:59 :00 No [id number] T2DM 0.5 tablet DAILY 0.5 tablet DAILY (route: oral) Med Classific ation: Endocrine methocarbam ol 750 mg tablet 11-20 00:00: 00 06-23 23:59 :00 No [id number] MUSCLE SPASMS 1 tablet EVERY 6 HOURS 1 tablet EVERY 6 HOURS (route: oral) Med Classific ation: Locomotor System metoprolol tartrate 100 mg tablet 11-20 00:00: 00 06-23 23:59 :00 No [id number] BLOOD PRESSURE 1 tablet 2 TIMES DAILY 1 tablet 2 TIMES DAILY (route: oral) Med Classific ation: Cardiovas cular Therapy Agents pantoprazol e 40 mg tablet,chapito yed release 11-20 00:00: 00 06-23 23:59 :00 No [id number] STOMACH 1 tablet 2 TIMES DAILY 1 tablet 2 TIMES DAILY (route: oral) Med Classific ation: Gastroint estinal Therapy Agents tamsulosin 0.4 mg capsule 11-20 00:00: 00 06-23 23:59 :00 No [id number] PROSTATE 1 capsule BEDTIME 1 capsule BEDTIME (route: oral) Med Classific ation: Genitouri nary Therapy tramadol 50 mg tablet 11-20 00:00: 00 06-23 23:59 :00 No [id number] PAIN 1 tablet EVERY 6 HOURS 1 tablet EVERY 6 HOURS (route: oral) Med Classific ation: Analgesic , Anti-infl ammatory or Antipyret ic venlafaxine ER 150 mg tablet,exte nded release 24 hr 11-20 00:00: 00 06-23 23:59 :00 No [id number] PAIN 1 tablet DAILY 1 tablet DAILY (route: oral) Med Classific ation: Central Nervous System Agents etodolac 400 mg tablet 11-20 00:00: 00 06-23 23:59 :00 No [id number] PAIN/INFLAM MATION 1 tablet EVERY 6 HOURS 1 tablet EVERY 6 HOURS (route: oral) Med Classific ation: Analgesic , Anti-infl ammatory or Antipyret ic alogliptin 25 mg tablet 2023-09 00:00: 00 09-15 00:00 :00 No [id number] T2DM 1 tablet DAILY 1 tablet DAILY (route: oral) Med Classific ation: Endocrine ascorbic acid (vitamin C) 500 mg tablet 2023-09 00:00: 00 Yes [id number] SUPPLEMENT 1 tablet DAILY 1 tablet DAILY (route: oral) Med Classific ation: Electroly te Balance-N utritiona l Products Aspirin Childrens 81 mg chewable tablet 2023-09 00:00: 00 09-15 00:00 :00 No [id number] HEART 1 tablet DAILY 1 tablet DAILY (route: oral) Med Classific ation: Hematolog ical Agents Biktarvy 50 mg-200 mg-25 mg tablet 2023-09 00:00: 00 Yes [id number] IMMUNE 1 tablet DAILY 1 tablet DAILY (route: oral) Med Classific ation: Anti-Infe ctive Agents bumetanide 2 mg tablet 2023-09 00:00: 00 Yes [id number] EDEMA 1 tablet 2 TIMES DAILY 1 tablet 2 TIMES DAILY (route: oral) Med Classific ation: Cardiovas cular Therapy Agents ferrous sulfate 324 mg (65 mg iron) tablet,chapito yed release 2023-09 00:00: 00 Yes [id number] SUPPLEMENT 1 tablet DAILY 1 tablet DAILY (route: oral) Med Classific ation: Electroly te Balance-N utritiona l Products finasteride 5 mg tablet 2023-09 00:00: 00 Yes [id number] PROSTATE 1 tablet DAILY 1 tablet DAILY (route: oral) Med Classific ation: Genitouri nary Therapy gabapentin 300 mg capsule 2023-09 00:00: 00 Yes [id number] PAIN 2 capsule DAILY 2 capsule DAILY (route: oral) Med Classific ation: Central Nervous System Agents Humulin R U-500 (Conc) Insulin Kwikpen 500 unit/mL (3 mL) subcutaneou s 2023-09 00:00: 00 09-15 00:00 :00 No [id number] T2DM 65 unit 2 TIMES DAILY 65 unit 2 TIMES DAILY (route: subcutaneo us) Med Classific ation: Endocrine Jardiance 25 mg tablet 2023-09 00:00: 00 09-15 00:00 :00 No [id number] T2DM 0.5 tablet DAILY 0.5 tablet DAILY (route: oral) Med Classific ation: Endocrine methocarbam ol 750 mg tablet 2023-09 00:00: 00 Yes [id number] MUSCLE SPASMS 1 tablet 3 TIMES DAILY 1 tablet 3 TIMES DAILY (route: oral) Med Classific ation: Locomotor System metoprolol tartrate 100 mg tablet 2023-09 00:00: 00 Yes [id number] BLOOD PRESSURE 1 tablet 2 TIMES DAILY 1 tablet 2 TIMES DAILY (route: oral) Med Classific ation: Cardiovas cular Therapy Agents Protonix 40 mg tablet,chapito yed release 2023-09 00:00: 00 Yes [id number] GERD 1 tablet DAILY 1 tablet DAILY (route: oral) Med Classific ation: Gastroint estinal Therapy Agents Stiolto Respimat 2.5 mcg-2.5 mcg/actuati on solution for inhalation 2023-09 00:00: 00 Yes [id number] BREATHING 2 puff DAILY 2 puff DAILY (route: inhalation ) Med Classific ation: Respirato ry Therapy Agents tamsulosin 0.4 mg capsule 2023-09 00:00: 00 Yes [id number] PROSTATE 1 capsule DAILY 1 capsule DAILY (route: oral) Med Classific ation: Genitouri nary Therapy tramadol 50 mg tablet 2023-09 00:00: 00 Yes [id number] PAIN 1 tablet 3 TIMES DAILY 1 tablet 3 TIMES DAILY (route: oral) Med Classific ation: Analgesic , Anti-infl ammatory or Antipyret ic venlafaxine ER 150 mg tablet,exte nded release 24 hr 2023-09 00:00: 00 Yes [id number] MOOD 1 tablet DAILY 1 tablet DAILY (route: oral) Med Classific ation: Central Nervous System Agents Ventolin HFA 90 mcg/actuati on aerosol inhaler 2023-09 00:00: 00 09-15 00:00 :00 No [id number] BREATHING 2 puff EVERY 4 HOURS 2 puff EVERY 4 HOURS (route: inhalation ) Med Classific ation: Respirato ry Therapy Agents Vitamin D3 25 mcg (1,000 unit) tablet 2023-09 00:00: 00 Yes [id number] SUPPLEMENT 1 tablet DAILY 1 tablet DAILY (route: oral) Med Classific ation: Electroly te Balance-N utritiona l Products digoxin 125 mcg (0.125 mg) tablet 09-15 00:00: 00 02-20 23:59 :00 No [id number] HEART 1 tablet DAILY 1 tablet DAILY (route: oral) Med Classific ation: Cardiovas cular Therapy Agents diltiazem 60 mg tablet 09-15 00:00: 00 Yes [id number] ANGINA 1 tablet EVERY 8 HOURS 1 tablet EVERY 8 HOURS (route: oral) Med Classific ation: Cardiovas cular Therapy Agents Jardiance 10 mg tablet 09-15 00:00: 00 02-20 23:59 :00 No [id number] T2DM 1 tablet DAILY 1 tablet DAILY (route: oral) Med Classific ation: Endocrine sitagliptin 100 mg tablet 09-15 00:00: 00 Yes [id number] T2DM 1 tablet DAILY 1 tablet DAILY (route: oral) Med Classific ation: Endocrine buprenorphi ne 7.5 mcg/hour weekly transdermal patch 02-23 00:00: 00 Yes [id number] PAIN 1 patch, transde rmal weekly WEEKLY 1 patch, transderma l weekly WEEKLY (route: transderma l) Med Classific ation: Analgesic , Anti-infl ammatory or Antipyret ic Advil 200 mg tablet 02-20 00:00: 00 Yes [id number] PAIN 2 tablet DAILY 2 tablet DAILY (route: oral) Med Classific ation: Analgesic , Anti-infl ammatory or Antipyret ic amoxicillin 875 mg-potassiu m clavulanate 125 mg tablet 02-23 00:00: 00 02-27 23:59 :00 No [id number] PNEUMONIA 1 tablet 2 TIMES DAILY 1 tablet 2 TIMES DAILY (route: oral) Med Classific ation: Anti-Infe ctive Agents azithromyci n 500 mg tablet 02-23 00:00: 00 Yes [id number] PNEUMONIA 1 tablet DAILY 1 tablet DAILY (route: oral) Med Classific ation: Anti-Infe ctive Agents Humulin R U-500 (Conc) Insulin Kwikpen 500 unit/mL (3 mL) subcutaneou s 02-24 00:00: 00 Yes [id number] DM Per instruc tions 2 TIMES DAILY Per instructio ns 2 TIMES DAILY (route: subcutaneo us) Med Classific ation: Endocrine oxygen gas for inhalation 02-20 00:00: 00 Yes [id number] SOA 3 Liter O2 - CONTINUOUS 3 Liter O2 - CONTINUOUS (route: inhalation ) Med Classific ation: Medical Supplies and Durable Medical Equipment (DME) digoxin 125 mcg (0.125 mg) tablet 03-14 00:00: 00 Yes [id number] AFIB 1 tablet DAILY 1 tablet DAILY [...] TO EVALUATE, OBSERVE / ASSESS, AND MONITOR, COMPUTER PERIPHERAL EQUIPMENT OPERATOR TO OBSERVE AND MONITOR, PROVIDE SKILLED THERAPEUTIC INTERVENTION, ACTIVITY, EDUCATION, AND TRAINING TO ADDRESS; [code = AGENCY MAY PERFORM A RESUMPTION OF CARE VISIT FOLLOWING ANY HOSPITAL ADMISSION. PT TO EVALUATE, OBSERVE / ASSESS, AND MONITOR, COMPUTER PERIPHERAL EQUIPMENT OPERATOR TO OBSERVE AND MONITOR, PROVIDE SKILLED THERAPEUTIC INTERVENTION, ACTIVITY, EDUCATION, AND TRAINING TO ADDRESS;] Future Scheduled Test THERAPEUTI C EXERCISES AND ESTABLISHING A HOME EXERCISE PROGRAM (PT/COMPUTER PERIPHERAL EQUIPMENT OPERATOR) [code = THERAPEUTIC EXERCISES AND ESTABLISHING A HOME EXERCISE PROGRAM (PT/COMPUTER PERIPHERAL EQUIPMENT OPERATOR)] Future Scheduled Test NEUROMUSCU LAR RE-EDUCATION / BALANCE / POSTURAL CONTROL (PT) [code = NEUROMUSCULAR RE-EDUCATION / BALANCE / POSTURAL CONTROL (PT)] Future Scheduled Test PT/COMPUTER PERIPHERAL EQUIPMENT OPERATOR TO PROVIDE GAIT TRAINING FOR IMPROVED MOBILITY AND /OR TO NORMALIZE GAIT PATTERN [code = PT/COMPUTER PERIPHERAL EQUIPMENT OPERATOR TO PROVIDE GAIT TRAINING FOR IMPROVED MOBILITY AND /OR TO NORMALIZE GAIT PATTERN] Future Scheduled Test SIT TO/FRO M STAND TRANSFERS (PT/COMPUTER PERIPHERAL EQUIPMENT OPERATOR) [code = SIT TO/FROM STAND TRANSFERS (PT/COMPUTER PERIPHERAL EQUIPMENT OPERATOR)] Goal Patient Goal - R ETURN TO [...] End Date/Time Encounter Type Admission Type Attending [facility] Care Department Encounter ID Discharge Date Discharge Status Discharge Condition Discharge Reason Percent Goals Met 2025-01-13 00:00:00 2025-03-13 00:00:00 Outpatient RECERTIFIC ESME [facility] [id number]
--- OUTSIDE RECORDS SUMMARY | 2025-03-12 20:00 | XMS_ITS | Clinical Summary ---
Author Organization Unknown Care Team Providers Care Systems Integration Manager Name Role Phone CHANTALE RILAURY Unavailable Unavailable MATTY PT, ESME Unavailable Unavailable TAMMY DIETETIC TECHNICIAN REGISTERED, SHANIQUE Unavailable Unavailable Payers Payer Name Policy Type Policy Number Effective Date Expira tion Date [facility].OPTUM.VACCN.PDGM.C.AUTH Problems Condition Name Condition Details [...] 02-27 00:00: 00 ATHSCL HEART DISEASE OF [place] CORONARY ARTERY W/O ANG PCTRS Active 09-03 [...] ON SUPPLEMENTAL OXYGEN Active 09-03 00:00: 00 [facility] (CURRENT) USE OF ORAL HYPOGLYCEMIC DRUGS Active [...] 11-20 00:00: 00 06-23 23:59 :00 No [id number] PAIN 3 tablet 2 TIMES DAILY 3 tablet 2 TIMES DAILY (route: oral) Med Classific ation: Analgesic , Anti-infl ammatory or Antipyret ic alogliptin 25 mg tablet 11-20 00:00: 00 06-23 23:59 :00 No [id number] BLOOD SUGAR 1 tablet DAILY 1 tablet DAILY (route: oral) Med Classific ation: Endocrine Aspirin Childrens 81 mg chewable tablet 11-20 00:00: 00 06-23 23:59 :00 No [id number] HEART 1 tablet DAILY 1 tablet DAILY (route: oral) Med Classific ation: Hematolog ical Agents bumetanide 2 mg tablet 11-20 00:00: 00 06-23 23:59 :00 No [id number] EDEMA 1 tablet DAILY 1 tablet DAILY (route: oral) Med Classific ation: Cardiovas cular Therapy Agents cholecalcif trav (vitamin D3) 25 mcg (1,000 unit) tablet 11-20 00:00: 00 06-23 23:59 :00 No [id number] SUPPLEMENT 1 tablet DAILY 1 tablet DAILY (route: oral) Med Classific ation: Electroly te Balance-N utritiona l Products ferrous sulfate 324 mg (65 mg iron) tablet,chapito yed release 11-20 00:00: 00 06-23 23:59 :00 No [id number] SUPPLEMENT 1 tablet DAILY 1 tablet DAILY (route: oral) Med Classific ation: Electroly te Balance-N utritiona l Products finasteride 5 mg tablet 11-20 00:00: 00 06-23 23:59 :00 No [id number] PROSTATE 1 tablet DAILY 1 tablet DAILY (route: oral) Med Classific ation: Genitouri nary Therapy gabapentin 300 mg capsule 11-20 00:00: 00 06-23 23:59 :00 No [id number] NERVE DAMAGE Per instruc tions DIRECTED Per instructio ns DIRECTED (route: oral) Med Classific ation: Central Nervous System Agents glucose 4 gram chewable tablet 11-20 00:00: 00 06-23 23:59 :00 No [id number] LOW BLOOD SUGAR 4 tablet NEEDED 4 tablet NEEDED (route: oral) Med Classific ation: Endocrine Humulin R U-500 (Conc) Insulin Kwikpen 500 unit/mL (3 mL) subcutaneou s 11-19 00:00: 00 06-23 23:59 :00 No [id number] T2DM Per instruc tions DIRECTED Per instructio ns DIRECTED (route: subcutaneo us) Med Classific ation: Endocrine Jardiance 25 mg tablet 11-20 00:00: 00 06-23 23:59 :00 No [id number] T2DM 0.5 tablet DAILY 0.5 tablet DAILY (route: oral) Med Classific ation: Endocrine methocarbam ol 750 mg tablet 11-20 00:00: 00 06-23 23:59 :00 No [id number] MUSCLE SPASMS 1 tablet EVERY 6 HOURS 1 tablet EVERY 6 HOURS (route: oral) Med Classific ation: Locomotor System metoprolol tartrate 100 mg tablet 11-20 00:00: 00 06-23 23:59 :00 No [id number] BLOOD PRESSURE 1 tablet 2 TIMES DAILY 1 tablet 2 TIMES DAILY (route: oral) Med Classific ation: Cardiovas cular Therapy Agents pantoprazol e 40 mg tablet,chapito yed release 11-20 00:00: 00 06-23 23:59 :00 No [id number] STOMACH 1 tablet 2 TIMES DAILY 1 tablet 2 TIMES DAILY (route: oral) Med Classific ation: Gastroint estinal Therapy Agents tamsulosin 0.4 mg capsule 11-20 00:00: 00 06-23 23:59 :00 No [id number] PROSTATE 1 capsule BEDTIME 1 capsule BEDTIME (route: oral) Med Classific ation: Genitouri nary Therapy tramadol 50 mg tablet 11-20 00:00: 00 06-23 23:59 :00 No [id number] PAIN 1 tablet EVERY 6 HOURS 1 tablet EVERY 6 HOURS (route: oral) Med Classific ation: Analgesic , Anti-infl ammatory or Antipyret ic venlafaxine ER 150 mg tablet,exte nded release 24 hr 11-20 00:00: 00 06-23 23:59 :00 No [id number] PAIN 1 tablet DAILY 1 tablet DAILY (route: oral) Med Classific ation: Central Nervous System Agents etodolac 400 mg tablet 11-20 00:00: 00 06-23 23:59 :00 No [id number] PAIN/INFLAM MATION 1 tablet EVERY 6 HOURS 1 tablet EVERY 6 HOURS (route: oral) Med Classific ation: Analgesic , Anti-infl ammatory or Antipyret ic alogliptin 25 mg tablet 2023-09 00:00: 00 09-15 00:00 :00 No [id number] T2DM 1 tablet DAILY 1 tablet DAILY (route: oral) Med Classific ation: Endocrine ascorbic acid (vitamin C) 500 mg tablet 2023-09 00:00: 00 Yes [id number] SUPPLEMENT 1 tablet DAILY 1 tablet DAILY (route: oral) Med Classific ation: Electroly te Balance-N utritiona l Products Aspirin Childrens 81 mg chewable tablet 2023-09 00:00: 00 09-15 00:00 :00 No [id number] HEART 1 tablet DAILY 1 tablet DAILY (route: oral) Med Classific ation: Hematolog ical Agents Biktarvy 50 mg-200 mg-25 mg tablet 2023-09 00:00: 00 Yes [id number] IMMUNE 1 tablet DAILY 1 tablet DAILY (route: oral) Med Classific ation: Anti-Infe ctive Agents bumetanide 2 mg tablet 2023-09 00:00: 00 Yes [id number] EDEMA 1 tablet 2 TIMES DAILY 1 tablet 2 TIMES DAILY (route: oral) Med Classific ation: Cardiovas cular Therapy Agents ferrous sulfate 324 mg (65 mg iron) tablet,chapito yed release 2023-09 00:00: 00 Yes [id number] SUPPLEMENT 1 tablet DAILY 1 tablet DAILY (route: oral) Med Classific ation: Electroly te Balance-N utritiona l Products finasteride 5 mg tablet 2023-09 00:00: 00 Yes [id number] PROSTATE 1 tablet DAILY 1 tablet DAILY (route: oral) Med Classific ation: Genitouri nary Therapy gabapentin 300 mg capsule 2023-09 00:00: 00 Yes [id number] PAIN 2 capsule DAILY 2 capsule DAILY (route: oral) Med Classific ation: Central Nervous System Agents Humulin R U-500 (Conc) Insulin Kwikpen 500 unit/mL (3 mL) subcutaneou s 2023-09 00:00: 00 09-15 00:00 :00 No [id number] T2DM 65 unit 2 TIMES DAILY 65 unit 2 TIMES DAILY (route: subcutaneo us) Med Classific ation: Endocrine Jardiance 25 mg tablet 2023-09 00:00: 00 09-15 00:00 :00 No [id number] T2DM 0.5 tablet DAILY 0.5 tablet DAILY (route: oral) Med Classific ation: Endocrine methocarbam ol 750 mg tablet 2023-09 00:00: 00 Yes [id number] MUSCLE SPASMS 1 tablet 3 TIMES DAILY 1 tablet 3 TIMES DAILY (route: oral) Med Classific ation: Locomotor System metoprolol tartrate 100 mg tablet 2023-09 00:00: 00 Yes [id number] BLOOD PRESSURE 1 tablet 2 TIMES DAILY 1 tablet 2 TIMES DAILY (route: oral) Med Classific ation: Cardiovas cular Therapy Agents Protonix 40 mg tablet,chapito yed release 2023-09 00:00: 00 Yes [id number] GERD 1 tablet DAILY 1 tablet DAILY (route: oral) Med Classific ation: Gastroint estinal Therapy Agents Stiolto Respimat 2.5 mcg-2.5 mcg/actuati on solution for inhalation 2023-09 00:00: 00 Yes [id number] BREATHING 2 puff DAILY 2 puff DAILY (route: inhalation ) Med Classific ation: Respirato ry Therapy Agents tamsulosin 0.4 mg capsule 2023-09 00:00: 00 Yes [id number] PROSTATE 1 capsule DAILY 1 capsule DAILY (route: oral) Med Classific ation: Genitouri nary Therapy tramadol 50 mg tablet 2023-09 00:00: 00 Yes [id number] PAIN 1 tablet 3 TIMES DAILY 1 tablet 3 TIMES DAILY (route: oral) Med Classific ation: Analgesic , Anti-infl ammatory or Antipyret ic venlafaxine ER 150 mg tablet,exte nded release 24 hr 2023-09 00:00: 00 Yes [id number] MOOD 1 tablet DAILY 1 tablet DAILY (route: oral) Med Classific ation: Central Nervous System Agents Ventolin HFA 90 mcg/actuati on aerosol inhaler 2023-09 00:00: 00 09-15 00:00 :00 No [id number] BREATHING 2 puff EVERY 4 HOURS 2 puff EVERY 4 HOURS (route: inhalation ) Med Classific ation: Respirato ry Therapy Agents Vitamin D3 25 mcg (1,000 unit) tablet 2023-09 00:00: 00 Yes [id number] SUPPLEMENT 1 tablet DAILY 1 tablet DAILY (route: oral) Med Classific ation: Electroly te Balance-N utritiona l Products digoxin 125 mcg (0.125 mg) tablet 09-15 00:00: 00 02-20 23:59 :00 No [id number] HEART 1 tablet DAILY 1 tablet DAILY (route: oral) Med Classific ation: Cardiovas cular Therapy Agents diltiazem 60 mg tablet 09-15 00:00: 00 Yes [id number] ANGINA 1 tablet EVERY 8 HOURS 1 tablet EVERY 8 HOURS (route: oral) Med Classific ation: Cardiovas cular Therapy Agents Jardiance 10 mg tablet 09-15 00:00: 00 02-20 23:59 :00 No [id number] T2DM 1 tablet DAILY 1 tablet DAILY (route: oral) Med Classific ation: Endocrine sitagliptin 100 mg tablet 09-15 00:00: 00 Yes [id number] T2DM 1 tablet DAILY 1 tablet DAILY (route: oral) Med Classific ation: Endocrine buprenorphi ne 7.5 mcg/hour weekly transdermal patch 02-23 00:00: 00 Yes [id number] PAIN 1 patch, transde rmal weekly WEEKLY 1 patch, transderma l weekly WEEKLY (route: transderma l) Med Classific ation: Analgesic , Anti-infl ammatory or Antipyret ic Advil 200 mg tablet 02-20 00:00: 00 Yes [id number] PAIN 2 tablet DAILY 2 tablet DAILY (route: oral) Med Classific ation: Analgesic , Anti-infl ammatory or Antipyret ic amoxicillin 875 mg-potassiu m clavulanate 125 mg tablet 02-23 00:00: 00 02-27 23:59 :00 No [id number] PNEUMONIA 1 tablet 2 TIMES DAILY 1 tablet 2 TIMES DAILY (route: oral) Med Classific ation: Anti-Infe ctive Agents azithromyci n 500 mg tablet 02-23 00:00: 00 Yes [id number] PNEUMONIA 1 tablet DAILY 1 tablet DAILY (route: oral) Med Classific ation: Anti-Infe ctive Agents Humulin R U-500 (Conc) Insulin Kwikpen 500 unit/mL (3 mL) subcutaneou s 02-24 00:00: 00 Yes [id number] DM Per instruc tions 2 TIMES DAILY Per instructio ns 2 TIMES DAILY (route: subcutaneo us) Med Classific ation: Endocrine oxygen gas for inhalation 02-20 00:00: 00 Yes [id number] SOA 3 Liter O2 - CONTINUOUS 3 Liter O2 - CONTINUOUS (route: inhalation ) Med Classific ation: Medical Supplies and Durable Medical Equipment (DME) digoxin 125 mcg (0.125 mg) tablet 03-14 00:00: 00 Yes [id number] AFIB 1 tablet DAILY 1 tablet DAILY [...] TO EVALUATE, OBSERVE / ASSESS, AND MONITOR, DIETETIC TECHNICIAN REGISTERED TO OBSERVE AND MONITOR, PROVIDE SKILLED THERAPEUTIC INTERVENTION, ACTIVITY, EDUCATION, AND TRAINING TO ADDRESS; [code = AGENCY MAY PERFORM A RESUMPTION OF CARE VISIT FOLLOWING ANY HOSPITAL ADMISSION. PT TO EVALUATE, OBSERVE / ASSESS, AND MONITOR, DIETETIC TECHNICIAN REGISTERED TO OBSERVE AND MONITOR, PROVIDE SKILLED THERAPEUTIC INTERVENTION, ACTIVITY, EDUCATION, AND TRAINING TO ADDRESS;] Future Scheduled Test THERAPEUTI C EXERCISES AND ESTABLISHING A HOME EXERCISE PROGRAM (PT/DIETETIC TECHNICIAN REGISTERED) [code = THERAPEUTIC EXERCISES AND ESTABLISHING A HOME EXERCISE PROGRAM (PT/DIETETIC TECHNICIAN REGISTERED)] Future Scheduled Test NEUROMUSCU LAR RE-EDUCATION / BALANCE / POSTURAL CONTROL (PT) [code = NEUROMUSCULAR RE-EDUCATION / BALANCE / POSTURAL CONTROL (PT)] Future Scheduled Test PT/DIETETIC TECHNICIAN REGISTERED TO PROVIDE GAIT TRAINING FOR IMPROVED MOBILITY AND /OR TO NORMALIZE GAIT PATTERN [code = PT/DIETETIC TECHNICIAN REGISTERED TO PROVIDE GAIT TRAINING FOR IMPROVED MOBILITY AND /OR TO NORMALIZE GAIT PATTERN] Future Scheduled Test SIT TO/FRO M STAND TRANSFERS (PT/DIETETIC TECHNICIAN REGISTERED) [code = SIT TO/FROM STAND TRANSFERS (PT/DIETETIC TECHNICIAN REGISTERED)] Goal Patient Goal - R ETURN TO [...] End Date/Time Encounter Type Admission Type Attending [facility] Care Department Encounter ID Discharge Date Discharge Status Discharge Condition Discharge Reason Percent Goals Met 2025-01-13 00:00:00 2025-03-13 00:00:00 Outpatient RECERTIFIC ESME [facility] [id number]
--- OUTSIDE RECORDS SUMMARY | 2025-03-12 20:00 | XMS_ITS | Clinical Summary ---
Author Organization Unknown Care Team Providers Care Word Processor Technician Name Role Phone CHANTALE WILAURY Unavailable Unavailable MATTY PT, ESME Unavailable Unavailable TAMMY CERTIFIED PHARMACY TECHNICIAN, SHANIQUE Unavailable Unavailable Payers Payer Name Policy Type Policy Number Effective Date Expira tion Date [facility].OPTUM.VACCN.PDGM.C.AUTH Problems Condition Name Condition Details Condition Category [...] 02-27 00:00: 00 ATHSCL HEART DISEASE OF [place] CORONARY ARTERY W/O ANG PCTRS Active 09-03 [...] ON SUPPLEMENTAL OXYGEN Active 09-03 00:00: 00 SHELTER (CURRENT) USE OF ORAL HYPOGLYCEMIC DRUGS Active [...] 11-20 00:00: 00 06-23 23:59 :00 No [id number] PAIN 3 tablet 2 TIMES DAILY 3 tablet 2 TIMES DAILY (route: oral) Med Classific ation: Analgesic , Anti-infl ammatory or Antipyret ic alogliptin 25 mg tablet 11-20 00:00: 00 06-23 23:59 :00 No [id number] BLOOD SUGAR 1 tablet DAILY 1 tablet DAILY (route: oral) Med Classific ation: Endocrine Aspirin Childrens 81 mg chewable tablet 11-20 00:00: 00 06-23 23:59 :00 No [id number] HEART 1 tablet DAILY 1 tablet DAILY (route: oral) Med Classific ation: Hematolog ical Agents bumetanide 2 mg tablet 11-20 00:00: 00 06-23 23:59 :00 No [id number] EDEMA 1 tablet DAILY 1 tablet DAILY (route: oral) Med Classific ation: Cardiovas cular Therapy Agents cholecalcif trav (vitamin D3) 25 mcg (1,000 unit) tablet 11-20 00:00: 00 06-23 23:59 :00 No [id number] SUPPLEMENT 1 tablet DAILY 1 tablet DAILY (route: oral) Med Classific ation: Electroly te Balance-N utritiona l Products ferrous sulfate 324 mg (65 mg iron) tablet,chapito yed release 11-20 00:00: 00 06-23 23:59 :00 No [id number] SUPPLEMENT 1 tablet DAILY 1 tablet DAILY (route: oral) Med Classific ation: Electroly te Balance-N utritiona l Products finasteride 5 mg tablet 11-20 00:00: 00 06-23 23:59 :00 No [id number] PROSTATE 1 tablet DAILY 1 tablet DAILY (route: oral) Med Classific ation: Genitouri nary Therapy gabapentin 300 mg capsule 11-20 00:00: 00 06-23 23:59 :00 No [id number] NERVE DAMAGE Per instruc tions DIRECTED Per instructio ns DIRECTED (route: oral) Med Classific ation: Central Nervous System Agents glucose 4 gram chewable tablet 11-20 00:00: 00 06-23 23:59 :00 No [id number] LOW BLOOD SUGAR 4 tablet NEEDED 4 tablet NEEDED (route: oral) Med Classific ation: Endocrine Humulin R U-500 (Conc) Insulin Kwikpen 500 unit/mL (3 mL) subcutaneou s 11-19 00:00: 00 06-23 23:59 :00 No [id number] T2DM Per instruc tions DIRECTED Per instructio ns DIRECTED (route: subcutaneo us) Med Classific ation: Endocrine Jardiance 25 mg tablet 11-20 00:00: 00 06-23 23:59 :00 No [id number] T2DM 0.5 tablet DAILY 0.5 tablet DAILY (route: oral) Med Classific ation: Endocrine methocarbam ol 750 mg tablet 11-20 00:00: 00 06-23 23:59 :00 No [id number] MUSCLE SPASMS 1 tablet EVERY 6 HOURS 1 tablet EVERY 6 HOURS (route: oral) Med Classific ation: Locomotor System metoprolol tartrate 100 mg tablet 11-20 00:00: 00 06-23 23:59 :00 No [id number] BLOOD PRESSURE 1 tablet 2 TIMES DAILY 1 tablet 2 TIMES DAILY (route: oral) Med Classific ation: Cardiovas cular Therapy Agents pantoprazol e 40 mg tablet,chapito yed release 11-20 00:00: 00 06-23 23:59 :00 No [id number] STOMACH 1 tablet 2 TIMES DAILY 1 tablet 2 TIMES DAILY (route: oral) Med Classific ation: Gastroint estinal Therapy Agents tamsulosin 0.4 mg capsule 11-20 00:00: 00 06-23 23:59 :00 No [id number] PROSTATE 1 capsule BEDTIME 1 capsule BEDTIME (route: oral) Med Classific ation: Genitouri nary Therapy tramadol 50 mg tablet 11-20 00:00: 00 06-23 23:59 :00 No [id number] PAIN 1 tablet EVERY 6 HOURS 1 tablet EVERY 6 HOURS (route: oral) Med Classific ation: Analgesic , Anti-infl ammatory or Antipyret ic venlafaxine ER 150 mg tablet,exte nded release 24 hr 11-20 00:00: 00 06-23 23:59 :00 No [id number] PAIN 1 tablet DAILY 1 tablet DAILY (route: oral) Med Classific ation: Central Nervous System Agents etodolac 400 mg tablet 11-20 00:00: 00 06-23 23:59 :00 No [id number] PAIN/INFLAM MATION 1 tablet EVERY 6 HOURS 1 tablet EVERY 6 HOURS (route: oral) Med Classific ation: Analgesic , Anti-infl ammatory or Antipyret ic alogliptin 25 mg tablet 2023-09 00:00: 00 09-15 00:00 :00 No [id number] T2DM 1 tablet DAILY 1 tablet DAILY (route: oral) Med Classific ation: Endocrine ascorbic acid (vitamin C) 500 mg tablet 2023-09 00:00: 00 Yes [id number] SUPPLEMENT 1 tablet DAILY 1 tablet DAILY (route: oral) Med Classific ation: Electroly te Balance-N utritiona l Products Aspirin Childrens 81 mg chewable tablet 2023-09 00:00: 00 09-15 00:00 :00 No [id number] HEART 1 tablet DAILY 1 tablet DAILY (route: oral) Med Classific ation: Hematolog ical Agents Biktarvy 50 mg-200 mg-25 mg tablet 2023-09 00:00: 00 Yes [id number] IMMUNE 1 tablet DAILY 1 tablet DAILY (route: oral) Med Classific ation: Anti-Infe ctive Agents bumetanide 2 mg tablet 2023-09 00:00: 00 Yes [id number] EDEMA 1 tablet 2 TIMES DAILY 1 tablet 2 TIMES DAILY (route: oral) Med Classific ation: Cardiovas cular Therapy Agents ferrous sulfate 324 mg (65 mg iron) tablet,chapito yed release 2023-09 00:00: 00 Yes [id number] SUPPLEMENT 1 tablet DAILY 1 tablet DAILY (route: oral) Med Classific ation: Electroly te Balance-N utritiona l Products finasteride 5 mg tablet 2023-09 00:00: 00 Yes [id number] PROSTATE 1 tablet DAILY 1 tablet DAILY (route: oral) Med Classific ation: Genitouri nary Therapy gabapentin 300 mg capsule 2023-09 00:00: 00 Yes [id number] PAIN 2 capsule DAILY 2 capsule DAILY (route: oral) Med Classific ation: Central Nervous System Agents Humulin R U-500 (Conc) Insulin Kwikpen 500 unit/mL (3 mL) subcutaneou s 2023-09 00:00: 00 09-15 00:00 :00 No [id number] T2DM 65 unit 2 TIMES DAILY 65 unit 2 TIMES DAILY (route: subcutaneo us) Med Classific ation: Endocrine Jardiance 25 mg tablet 2023-09 00:00: 00 09-15 00:00 :00 No [id number] T2DM 0.5 tablet DAILY 0.5 tablet DAILY (route: oral) Med Classific ation: Endocrine methocarbam ol 750 mg tablet 2023-09 00:00: 00 Yes [id number] MUSCLE SPASMS 1 tablet 3 TIMES DAILY 1 tablet 3 TIMES DAILY (route: oral) Med Classific ation: Locomotor System metoprolol tartrate 100 mg tablet 2023-09 00:00: 00 Yes [id number] BLOOD PRESSURE 1 tablet 2 TIMES DAILY 1 tablet 2 TIMES DAILY (route: oral) Med Classific ation: Cardiovas cular Therapy Agents Protonix 40 mg tablet,chapito yed release 2023-09 00:00: 00 Yes [id number] GERD 1 tablet DAILY 1 tablet DAILY (route: oral) Med Classific ation: Gastroint estinal Therapy Agents Stiolto Respimat 2.5 mcg-2.5 mcg/actuati on solution for inhalation 2023-09 00:00: 00 Yes [id number] BREATHING 2 puff DAILY 2 puff DAILY (route: inhalation ) Med Classific ation: Respirato ry Therapy Agents tamsulosin 0.4 mg capsule 2023-09 00:00: 00 Yes [id number] PROSTATE 1 capsule DAILY 1 capsule DAILY (route: oral) Med Classific ation: Genitouri nary Therapy tramadol 50 mg tablet 2023-09 00:00: 00 Yes [id number] PAIN 1 tablet 3 TIMES DAILY 1 tablet 3 TIMES DAILY (route: oral) Med Classific ation: Analgesic , Anti-infl ammatory or Antipyret ic venlafaxine ER 150 mg tablet,exte nded release 24 hr 2023-09 00:00: 00 Yes [id number] MOOD 1 tablet DAILY 1 tablet DAILY (route: oral) Med Classific ation: Central Nervous System Agents Ventolin HFA 90 mcg/actuati on aerosol inhaler 2023-09 00:00: 00 09-15 00:00 :00 No [id number] BREATHING 2 puff EVERY 4 HOURS 2 puff EVERY 4 HOURS (route: inhalation ) Med Classific ation: Respirato ry Therapy Agents Vitamin D3 25 mcg (1,000 unit) tablet 2023-09 00:00: 00 Yes [id number] SUPPLEMENT 1 tablet DAILY 1 tablet DAILY (route: oral) Med Classific ation: Electroly te Balance-N utritiona l Products digoxin 125 mcg (0.125 mg) tablet 09-15 00:00: 00 02-20 23:59 :00 No [id number] HEART 1 tablet DAILY 1 tablet DAILY (route: oral) Med Classific ation: Cardiovas cular Therapy Agents diltiazem 60 mg tablet 09-15 00:00: 00 Yes [id number] ANGINA 1 tablet EVERY 8 HOURS 1 tablet EVERY 8 HOURS (route: oral) Med Classific ation: Cardiovas cular Therapy Agents Jardiance 10 mg tablet 09-15 00:00: 00 02-20 23:59 :00 No [id number] T2DM 1 tablet DAILY 1 tablet DAILY (route: oral) Med Classific ation: Endocrine sitagliptin 100 mg tablet 09-15 00:00: 00 Yes [id number] T2DM 1 tablet DAILY 1 tablet DAILY (route: oral) Med Classific ation: Endocrine buprenorphi ne 7.5 mcg/hour weekly transdermal patch 02-23 00:00: 00 Yes [id number] PAIN 1 patch, transde rmal weekly WEEKLY 1 patch, transderma l weekly WEEKLY (route: transderma l) Med Classific ation: Analgesic , Anti-infl ammatory or Antipyret ic Advil 200 mg tablet 02-20 00:00: 00 Yes [id number] PAIN 2 tablet DAILY 2 tablet DAILY (route: oral) Med Classific ation: Analgesic , Anti-infl ammatory or Antipyret ic amoxicillin 875 mg-potassiu m clavulanate 125 mg tablet 02-23 00:00: 00 02-27 23:59 :00 No [id number] PNEUMONIA 1 tablet 2 TIMES DAILY 1 tablet 2 TIMES DAILY (route: oral) Med Classific ation: Anti-Infe ctive Agents azithromyci n 500 mg tablet 02-23 00:00: 00 Yes [id number] PNEUMONIA 1 tablet DAILY 1 tablet DAILY (route: oral) Med Classific ation: Anti-Infe ctive Agents Humulin R U-500 (Conc) Insulin Kwikpen 500 unit/mL (3 mL) subcutaneou s 02-24 00:00: 00 Yes [id number] DM Per instruc tions 2 TIMES DAILY Per instructio ns 2 TIMES DAILY (route: subcutaneo us) Med Classific ation: Endocrine oxygen gas for inhalation 02-20 00:00: 00 Yes [id number] SOA 3 Liter O2 - CONTINUOUS 3 Liter O2 - CONTINUOUS (route: inhalation ) Med Classific ation: Medical Supplies and Durable Medical Equipment (DME) digoxin 125 mcg (0.125 mg) tablet 03-14 00:00: 00 Yes [id number] AFIB 1 tablet DAILY 1 tablet DAILY [...] TO EVALUATE, OBSERVE / ASSESS, AND MONITOR, CERTIFIED PHARMACY TECHNICIAN TO OBSERVE AND MONITOR, PROVIDE SKILLED THERAPEUTIC INTERVENTION, ACTIVITY, EDUCATION, AND TRAINING TO ADDRESS; [code = AGENCY MAY PERFORM A RESUMPTION OF CARE VISIT FOLLOWING ANY HOSPITAL ADMISSION. PT TO EVALUATE, OBSERVE / ASSESS, AND MONITOR, CERTIFIED PHARMACY TECHNICIAN TO OBSERVE AND MONITOR, PROVIDE SKILLED THERAPEUTIC INTERVENTION, ACTIVITY, EDUCATION, AND TRAINING TO ADDRESS;] Future Scheduled Test THERAPEUTI C EXERCISES AND ESTABLISHING A HOME EXERCISE PROGRAM (PT/CERTIFIED PHARMACY TECHNICIAN) [code = THERAPEUTIC EXERCISES AND ESTABLISHING A HOME EXERCISE PROGRAM (PT/CERTIFIED PHARMACY TECHNICIAN)] Future Scheduled Test NEUROMUSCU LAR RE-EDUCATION / BALANCE / POSTURAL CONTROL (PT) [code = NEUROMUSCULAR RE-EDUCATION / BALANCE / POSTURAL CONTROL (PT)] Future Scheduled Test PT/CERTIFIED PHARMACY TECHNICIAN TO PROVIDE GAIT TRAINING FOR IMPROVED MOBILITY AND /OR TO NORMALIZE GAIT PATTERN [code = PT/CERTIFIED PHARMACY TECHNICIAN TO PROVIDE GAIT TRAINING FOR IMPROVED MOBILITY AND /OR TO NORMALIZE GAIT PATTERN] Future Scheduled Test SIT TO/FRO M STAND TRANSFERS (PT/CERTIFIED PHARMACY TECHNICIAN) [code = SIT TO/FROM STAND TRANSFERS (PT/CERTIFIED PHARMACY TECHNICIAN)] Goal Patient Goal - R ETURN TO [...] End Date/Time Encounter Type Admission Type Attending [facility] Care Department Encounter ID Discharge Date Discharge Status Discharge Condition Discharge Reason Percent Goals Met 2025-01-13 00:00:00 2025-03-13 00:00:00 Outpatient RECERTIFIC ESME [facility] [id number]
--- OUTSIDE RECORDS SUMMARY | 2025-03-15 04:58 | XMS_ITS ---
Author Name [facility] [place] Address [address] [place] [address] Care Team Providers Care Crew Leader Name Role Phone LAURY KENYON Primary Care [...] ON [employer] Jun 03, 2017 [id number] ROXI WINKLER PATIENT HUMANA [facility] (WNR) MEDICARE ADVANTAGE [facility] (WNR) Sep 03, 2019 [id number] ROXI WINKLER JR PATIENT [employer]MANA [facility] (WNR) MEDICARE ADVANTAGE [facility] (WNR) Sep 03, 2019 [id number] [phone] ROXI WINKLERA MCR (WNR) MEDICARE ADVANTAGE HUMAN A INSUR ANCE COM Apr 04, 2019 [id number] ROXI WINKLERA MCR (WNR) MEDICARE ADVANTAGE MCR (WNR) Apr 03, 2019 [id number] ROXI WINKLERA MCR (WNR) MEDICARE ADVANTAGE MCR (WNR) Apr 03, 2019 [id number] ROXI WINKLERA MCR (WNR) MEDICARE ADVANTAGE MCR (WNR) Apr 03, 2019 [id number] ROXI WINKLER JR MCR (WNR) MEDICARE ADVANTAGE MCR (WNR) Apr 03, 2019 [id number] ROXI WINKLER JR PHARMACY PRESCRIPT ION NONE Jun 03, 2017 NONE [id number] [phone] ROXI WINKLER PATIENT MEDICARE PART D (WNR) MEDICARE (M) PART D Sep 03, 2023 PART D [id number] ROXI WINKLER JR PATIENT Selected Encounter This section includes the information on record at NH for the Encounter. Date/Time Encounter Type Encounter Description Reason Pro vider Source Mar 15, 2025 08:58 AM Outpatient Encounter ADMIN PAT ACTIVTIES (MASNONCT) IHE Encounter Template Text not used by [place] Plan of Treatment: Future Appointments (+ 6 months) and Future Tests (+/- 45 days) The Plan of Treatment section includes future care activities for the patient from all [place] treatmentfacilities. This section includes future appointments and future orders which are active, pending or scheduled. Future Appointments This section includes appointments that were scheduled to occur 6 months from the date of the Encounter, up to a maximum of 20 appointments. The data comes from all [place] treatment facilities. Appointment Date/Time Appointment Type Appointme nt Facility Name Apr 14, 2025 10:30 AM [facility] Active, Pending, and Scheduled Orders This section includes a listing of several types of active, pending, and scheduled orders, including clinic medications orders, diagnostic test orders, procedure orders and consult orders; where the start date of the order is 45 days before the date of the Encounter or 45 days after the date of theEncounter. The data comes from all [place] treatment facilities. Test Date/Time Test Type Test Details Facility Name Mar 17, 2025 10:07 AM Consult Order [facility] Cons Cook Helper Preserves's Choice [facility] Mar 24, 2025 12:00 AM Laboratory - Chemi stry Order DIGOXIN [id number] SP ONCE [facility] Mar 24, 2025 12:00 AM Laboratory - Chemi stry Order PANEL 1 [id number] SP ONCE [facility] Social History: Smoking Status (Most current) and Tobacco Use (All prior to encounter date) This section includes the most current, and the historical, smoking and tobacco- related health factors from the NH facility where the Encounter took place. Current Smoking Status This section includes the most current smoking, or tobacco-related health factor, from the NH facility where the Encounter took place. Date/Time Current Smoking Status Comment Facil ity May 05, 2016 01:12 AM NON-TOBACCO USE INPATIENT [facility] Tobacco Use History This section includes a history of the smoking, or tobacco-related health factors, that were collected on or before the date of the Encounter. The data comes from the [place] facility where the Encounter took place. Date/Time Smoking Status/Tobacco Use Comment F acility Nov 24, 2015 04:48 PM NON-TOBACCO USE INPATIENT [facility] Oct 01, 2014 07:15 PM NON-TOBACCO USE INPATIENT [facility] Apr 10, 2005 01:20 PM HF V9 LIFETIME NON-SMOKER [facility] Nov 24, 2003 03:11 PM HF V9 LIFETIME NON-SMOKER [facility] Oct 07, 2002 02:26 PM HF V9 LIFETIME NON-SMOKER [facility] Advance Directives: All historical and current Section Date Range: From patient's date of to the date document was created. This section includes ALL of a patient's completed or amended [place] Advance and Rescinded Directives. The entries below indicate that a directive exists for the patient, but an actual copy is not included with this document. The data comes from all [place] facilities. Date Advance Directives Provider Source Sep 25, 2024 ADVANCE DIRECTIVE DISCUSSION ANTHONY IRVING [facility] Encounter Notes: All associated encounter notes This section contains the clinical notes associated to the Encounter. Date/Time Encounter Note(s) Provider Source Feb 27, 2025 08:00 PM NONVA NOTE: LOCAL TITLE: [facility] SELF PRESENTING CARE COORD PLAN STANDARD TITLE: NONVA NOTE DATE OF NOTE: FEB 27, 2025@20:00 ENTRY DATE: MAR 15, 2025@08:58:34 AUTHOR: MISSY YUSUF COSIGNER: URGENCY: STATUS: COMPLETED Emergency Notification Intake Date Presenting to the Facility: Feb Date of note has been modified to reflect Date of Service. Reason for modification: Hospital Notification Date:03/02/2025 1:54 PM EDT Method of Contact: Notified from [employer] worklist Notification ID: [id number] APPROVED [facility] makes eligibility determination and sends payment authorization and/or denial information directly to the healthcare provider. ANY QUESTIONS REGARDING DETERMINATION, CLAIMS, AND BILLING MAY BE MADE TO THE FOLLOWING [facility] Telephone Number: [phone] ([phone]) POM (Payment Operations and Management) Claims Status Line: [facility] Provider Services Region 2: [facility] Name: Hospital: [facility] Address: City: [place] State: [place] Zip Code: Phone : [phone] Chief complaint: CHF Primary Diagnosis: Disposition Admitted Route of Admission: Date of Admission: Feb Admitting Diagnosis: CHF; SEPSIS Community Care Provider: Confirm Level of Care: Acute Inpatient Care TRANSFER OFFICE FAXED THE BELOW REQUEST TO FAX NUMBER LISTED ON ECR: PLEASE CALL THE [facility] TRANSFER OFFICE ([phone]) AND PROVIDE A CLINICAL UPDATE FOR THE ON THE ATTACHED FAX. IF IS DISHCHARGED FROM THIS EPISODE OF CARE,PLEASE FAX DC SUMMARY TO: [phone] Handoff to PACT/PCP [facility] was informed this was seen for emergent care. Records requested for upload and review: Pursuant to 38 CFR 17.4020(c) Authorized emergency treatments. Handoff to PACT/PCP for follow up/care coordination as deemed appropriate by the PACT/PCP. PACT AWARE OF EOC. /angie/ Missy [employer]AUGHNN [employer] ELECTRICAL ENGINEERBATTALION CHIEF Signed: 03/15/2025 09:00 MISSY YUSUF-[facility]
--- OUTSIDE RECORDS SUMMARY | 2025-03-17 05:00 | XMS_ITS | Encounter Summary ---
Author Name [place] Address [address] [place] [address] Care Team Providers Care Behavioral Health Care Manager Name Role Phone LAURY KENYON Primary [...] ON [employer] Jun 03, 2017 [id number] ROXI WINKLER PATIENT HUMANA [facility] (WNR) MEDICARE ADVANTAGE [facility] (WNR) Sep 03, 2019 [id number] [phone] ROXI WINKLER JR PATIENT [employer] [facility] (WNR) MEDICARE ADVANTAGE [facility] (WNR) Sep 03, 2019 [id number] ROXI WINKLER [employer] MCR (WNR) MEDICARE ADVANTAGE HUMAN A INSUR ANCE COM Apr 04, 2019 [id number] ROXI WINKLER [employer] MCR (WNR) MEDICARE ADVANTAGE MCR (WNR) Apr 03, 2019 [id number] ROXI WINKLERA MCR (WNR) MEDICARE ADVANTAGE MCR (WNR) Apr 03, 2019 [id number] ROXI WINKLER JRA MCR (WNR) MEDICARE ADVANTAGE MCR (WNR) Apr 03, 2019 [id number] ROXI WINKLERA MCR (WNR) MEDICARE ADVANTAGE MCR (WNR) Apr 03, 2019 [id number] ROXI WINKLER JR PHARMACY PRESCRIPT ION NONE Jun 03, 2017 NONE [id number] ROXI WINKLER PATIENT MEDICARE PART D (WNR) MEDICARE (M) PART D Sep 03, 2023 PART D [id number] ROXI WINKLER JR PATIENT Selected Encounter This section includes the information on record at [place] for the Encounter. Date/Time Encounter Type Encounter Description Reason Pro vider Source Mar 17, 2025 09:00 AM Outpatient Encounter ADMIN PAT ACTIVTIES (MASNONCT) IHE Encounter Template Text not used by [place] Plan of Treatment: Future Appointments (+ 6 [...] [facility] Active, Pending, and Scheduled Orders This section includes a listing of several types of active, pending, and scheduled orders, including clinic medications orders, diagnostic test orders, procedure orders and consult orders; where the start date of the order is 45 days before the date of the Encounter or 45 days after the date of theEncounter. The data comes from all [place] treatment facilities. Test Date/Time Test Type Test Details Facility Name Mar 17, 2025 10:07 AM Consult Order [facility] CARE Cons Cook Barbecue's Choice [facility] Mar 24, 2025 12:00 AM Laboratory - Chemi stry Order DIGOXIN [id number]-[id number] SP ONCE [facility] Mar 24, 2025 12:00 AM Laboratory - Chemi stry Order PANEL 1 [id number] SP ONCE [facility] Social History: Smoking Status (Most current) and [...] 05, 2016 01:12 AM NON-TOBACCO USE INPATIENT [facility] Tobacco Use History This section includes a history of the smoking, or tobacco-related health factors, that were collected on or before the date of the Encounter. The data comes from the [place] facility where the Encounter took place. Date/Time Smoking Status/Tobacco Use Comment F acility Nov 24, 2015 04:48 PM NON-TOBACCO USE INPATIENT [facility] Oct 01, 2014 07:15 PM NON-TOBACCO USE INPATIENT [facility] Apr 10, 2005 01:20 PM HF V9 LIFETIME NON-SMOKER [facility] Nov 24, 2003 03:11 PM HF V9 LIFETIME NON-SMOKER [facility] Oct 07, 2002 02:26 PM HF V9 LIFETIME NON-SMOKER [facility] Advance Directives: All historical and [...] Sep 25, 2024 ADVANCE DIRECTIVE DISCUSSION [facility] Encounter Notes: All associated encounter notes This section contains the clinical notes associated to the Encounter. Date/Time Encounter Note(s) Provider Source Mar 17, 2025 09:41 AM ADDENDUM: LOCAL TITLE: Addendum STANDARD TITLE: ADDENDUM DATE OF NOTE: MAR 17, 2025@09:41:02 ENTRY DATE: MAR 17, 2025@09:41:03 AUTHOR: LAURY KENYON EXP COSIGNER: URGENCY: STATUS: COMPLETED I concur. Forwarding to [facility] care. /angie/ LAURY KENYON APRN ADVANCED PRACTICE REGISTERED NURSE, HBPC Signed: 03/17/2025 09:41 Receipt Acknowledged By: 03/17/2025 09:58 /es/ RENETTA QUINONES,MSN RN MSN,CLINICAL NURSE SPEC. --- Original Document --- 03/17/25 [facility]-REQUEST FOR SERVICE NOTE: Request for Services (RFS) documentation has been scanned to [facility] Consult: [facility] [id number] Consult No: [id number] Date scanned: Mar A Request for Service (RFS) form [id number] has been received which includes the following: Care Requested:REQUEST FOR HOME HEALTH PT AND OT ICD-10 Dx code: G93.0 Date [facility] received request: Mar Date service required: Mar Requesting Community Provider Information: Name of Ordering Provider: Rocky Liz Office:Rocky Liz Address, City, State: [address] [place] [address] /es/ FLORA LORA Signed: 03/17/2025 09:02 Receipt Acknowledged By: 03/17/2025 09:40 /es/ LAURY KENYON APRN ADVANCED PRACTICE REGISTERED NURSE, HBLAURY KIMYancy [facility] Mar 17, 2025 09:00 AM NONVA NOTE: LOCAL TITLE: COMMUNITY CARE-REQUEST FOR SERVICE NOTE STANDARD TITLE: NONVA NOTE DATE OF NOTE: MAR 17, 2025@09:00 ENTRY DATE: MAR 17, 2025@09:00:42 AUTHOR: FLORA BEASLEY EXP COSIGNER: URGENCY: STATUS: COMPLETED COMMUNITY CARE-REQUEST FOR SERVICE NOTE Has ADDENDA Request for Services (RFS) documentation has been scanned to [id number] Consult: [id number] Consult No: [id number] Date scanned: Mar A Request for Service (RFS) form [id number] has been received which includes the following: Care Requested:REQUEST FOR HOME HEALTH PT AND OT ICD-10 Dx code: G93.0 Date [facility] received request: Mar Date service required: Mar Requesting [facility] Provider Information: Name of Ordering Provider: [employer] Office:Rise ArtAlways[employer]Shelly Address, City, State: [address] [place] [address] /angie/ FLORA LORA Signed: 03/17/2025 09:02 Receipt Acknowledged By: 03/17/2025 09:40 /angie/ LAURY KENYON APRN ADVANCED PRACTICE REGISTERED NURSE, RORY 03/17/2025 ADDENDUM STATUS: COMPLETED I concur. Forwarding to [facility]. /angie/ LAURY KENYON APRN ADVANCED PRACTICE REGISTERED NURSE, RORY Signed: 03/17/2025 09:41 Receipt Acknowledged By: * AWAITING SIGNATURE * RENETTA QUINONES ZAINAB [place]-[facility]
--- OUTSIDE RECORDS SUMMARY | 2025-03-17 05:25 | XMS_ITS | Encounter Summary ---
Author Name [facility] [place] Address [address] [place] [address] Care Team Providers Care Community Planner Name Role Phone LAURY KENYON Primary Care [...] PREFERRED PROVIDER ORGANIZAT AXEL (PPO) ARELIS ON Vigilos LADY VARELA Jun 03, 2017 [id number] ROXI WINKLER PATIENT [employer] MCR (WNR) MEDICARE ADVANTAGE [facility] (WNR) Sep 03, 2019 [id number] ROXI WINKLER JR PATIENT [employer] MCR (WNR) MEDICARE ADVANTAGE [facility] (WNR) Sep 03, 2019 [id number] ROXI WINKLER MCR (WNR) MEDICARE ADVANTAGE HUMAN A INSUR ANCE COM Apr 04, 2019 [id number] ROXI WINKLER MCR (WNR) MEDICARE ADVANTAGE [facility] (WNR) Apr 03, 2019 [id number] ROXI WINKLER MCR (WNR) MEDICARE ADVANTAGE [facility] (WNR) Apr 03, 2019 [id number] ROXI WINKLER JR MCR (WNR) MEDICARE ADVANTAGE MCR (WNR) Apr 03, 2019 [id number] ROXI WINKLER MCR (WNR) MEDICARE ADVANTAGE [facility] (WNR) Apr 03, 2019 [id number] ROXI WINKLER JR PHARMACY PRESCRIPT ION NONE Jun 03, 2017 NONE [id number] [phone] ROXI WINKLER PATIENT MEDICARE PART D (WNR) MEDICARE (M) PART D Sep 03, 2023 PART D [id number] [phone] ROXI WINKLER JR PATIENT Selected Encounter This section includes the information on record at [place] for the Encounter. Date/Time Encounter Type Encounter Description Reason Provider Source Mar 17, 2025 09:25 AM PH1 ASSMT&MGMT NQHP 5-10 TELEPHONE HBPC ICD-10-CM G89.4 Chronic pain syndrome SHIMON SINCLAIR [facility] Encounter Template Text not used by [place] Assessments - Encounter Diagnoses This section includes the primary and secondary diagnoses documented for the Encounter. Date/Time Primary/Secondary Diagnosis Diagnosis Name Provider Source Mar 17, 2025 09:25 AM PRIMARY Chronic pain syndrome [facility] Mar 17, 2025 09:25 AM SECONDARY Chronic diastolic (congestive) heart failure [facility] Plan of Treatment: Future Appointments (+ 6 months) and Future Tests (+/- 45 days) The Plan of Treatment section includes future care activities for the patient from all [place] treatmentfacilities. This section includes future appointments and future orders which are active, pending or scheduled. Future Appointments This section includes appointments that were scheduled to occur 6 months from the date of the Encounter, up to a maximum of 20 appointments. The data comes from all [facility]. Appointment Date/Time Appointment Type Appointme nt Facility Name Apr 14, 2025 10:30 AM AMBULATORY - MEDICINE [facility] Active, Pending, and Scheduled Orders This section includes a listing of several types of active, pending, and scheduled orders, including clinic medications orders, diagnostic test orders, procedure orders and consult orders; where the start date of the order is 45 days before the date of the Encounter or 45 days after the date of theEncounter. The data comes from all [facility]. Test Date/Time Test Type Test Details Facility Name Mar 17, 2025 10:07 AM Consult Order [facility] CARE Cons Department Head [employer]'s Choice [facility] Mar 24, 2025 12:00 AM Laboratory - Chemi stry Order DIGOXIN [id number] SP ONCE [facility] Mar 24, 2025 12:00 AM Laboratory - Chemi stry Order PANEL 1 [id number] SP ONCE [facility] Social History: Smoking Status (Most current) and [...] ADVANCE DIRECTIVE DISCUSSION ANTHONY IRVING [facility] Encounter Notes: All associated encounter notes This section contains the clinical notes associated to the Encounter. Date/Time Encounter Note(s) Provider Source Mar 17, 2025 09:25 AM TELEPHONE ENCOUNTE R NOTE: LOCAL TITLE: [facility] TELEPHONE NOTE STANDARD TITLE: TELEPHONE ENCOUNTER NOTE DATE OF NOTE: MAR 17, 2025@09:25 ENTRY DATE: MAR 17, 2025@09:26:02 AUTHOR: SHIMON SINCLAIR EXP COSIGNER: URGENCY: STATUS: COMPLETED Time spent on phone call: 5 min Daughter called-she stated that patient only has enough Bumex to last until Sunday-she stated it was increased to BID in the hospital-asking for refill- Also stated that he needs his buprenorphine patch renewed-he placed the last one on today. Pharmacy please mail locally-he will be out of Bumex this sunday and the patch needs to be changed next week. /angie/ SHIMON SINCLAIR RN Signed: 03/17/2025 09:29 Receipt Acknowledged By: 03/17/2025 11:18 /angie/ LAURY RATLIFF PHARMD Pharmacy [employer], Delivery Coord. 03/17/2025 09:39 /angie/ LAURY KENYON APRN ADVANCED PRACTICE REGISTERED NURSE, [facility]
--- OUTSIDE RECORDS SUMMARY | 2025-03-17 07:12 | XMS_ITS | Encounter Summary ---
Author Name [place] Organization [place] Address [address] [place] [address] Care Team Providers Care Still Operator Name Role Phone LAURY KENYON Primary [...] PREFERRED PROVIDER ORGANIZAT ION (PPO) ARELIS ON [employer] LADY VARELA Jun 03, 2017 [id number] ROXI WINKLER PATIENT HUMANA [facility] (WNR) MEDICARE ADVANTAGE [facility] (WNR) Sep 03, 2019 [id number] ROXI WINKLER JR PATIENT HUMANA MCR (WNR) MEDICARE ADVANTAGE [facility] (WNR) Sep 03, 2019 [id number] ROXI WINKLERA MCR (WNR) MEDICARE ADVANTAGE HUMAN A INSUR ANCE COM Apr 04, 2019 [id number] ROXI WINKLERA MCR (WNR) MEDICARE ADVANTAGE MCR (WNR) Apr 03, 2019 [id number] ROXI WINKLERA MCR (WNR) MEDICARE ADVANTAGE MCR (WNR) Apr 03, 2019 [id number] ROXI WINKLER HUMANA MCR (WNR) MEDICARE ADVANTAGE MCR (WNR) Apr 03, 2019 [id number] ROXI WINKLER JR MCR (WNR) MEDICARE ADVANTAGE MCR (WNR) Apr 03, 2019 [id number] ROXI WINKLER JR PHARMACY PRESCRIPT ION NONE Jun 03, 2017 NONE [id number] [phone] ROXI WINKLER PATIENT MEDICARE PART D (WNR) MEDICARE (M) PART D Sep 03, 2023 PART D [id number] ROXI WINKLER JR PATIENT Selected Encounter This section includes the information on record at [place] for the Encounter. Date/Time Encounter Type Encounter Description Reason Pro vider Source Mar 17, 2025 11:12 AM Outpatient Encounter ADMIN PAT ACTIVTIES (MASNONCT) IHE Encounter Template Text not used by [place] Plan of Treatment: Future Appointments (+ 6 [...] 2025 10:30 AM [facility] Active, Pending, and Scheduled Orders This section includes a listing of several types of active, pending, and scheduled orders, including clinic medications orders, diagnostic test orders, procedure orders and consult orders; where the start date of the order is 45 days before the date of the Encounter or 45 days after the date of theEncounter. The data comes from all [place] treatment facilities. Test Date/Time Test Type Test Details Facility Name Mar 17, 2025 10:07 AM Consult Order [facility] SK[facility] CARE Cons Authorization Specialist's Choice [place] [facility] Mar 24, 2025 12:00 AM Laboratory - Chemi stry Order DIGOXIN [id number] SP ONCE [facility] Mar 24, 2025 12:00 AM Laboratory - Chemi stry Order PANEL 1 [id number] SP ONCE [facility] Social History: Smoking Status (Most [...] Anita bartholomew Sep 06, 2023 10:00 AM [place]-TOBACCO NEVER USED [facility] Tobacco Use History This section includes a history of the smoking, or tobacco-related health factors, that were collected on or before the date of the Encounter. The data comes from the [place] facility where the Encounter took place. Date/Time Smoking Status/Tobacco Use Comment Yael grajeda Jun 20, 2022 10:30 AM [place]-TOBACCO NEVER USED [facility] Jul 27, 2020 03:22 PM VA-TOBACCO NEVER USED [facility] Jul 19, 2018 11:24 AM VA-TOBACCO NEVER USED [facility] Mar 18, 2018 10:14 AM V9 LIFETIME NON-USER OF TOBACCO [facility] Mar 29, 2017 07:47 AM V9 LIFETIME NON-USER OF TOBACCO [facility] Apr 27, 2016 08:56 AM V9 LIFETIME NON-USER OF TOBACCO [facility] May 27, 2015 09:53 AM V9 LIFETIME NON-USER OF TOBACCO [facility] Jun 29, 2014 02:25 PM V9 LIFETIME NON-USER OF TOBACCO [facility] Feb 10, 2013 02:08 PM V9 LIFETIME NON-USER OF TOBACCO [facility] Mar 19, 2012 09:36 AM V9 LIFETIME NON-USER OF TOBACCO [facility] Dec 13, 2010 10:09 AM V9 LIFETIME NON-USER OF TOBACCO [facility] Aug 13, 2006 09:26 AM V9 LIFETIME NON-USER OF TOBACCO [facility] Apr 24, 2006 02:37 PM HF V9 LIFETIME NON-SMOKER [facility] Encounter Note(s) Provider Source Mar 17, 2025 11:14 AM PHARMACY TELEPHONE ENCOUNTER NOTE: LOCAL TITLE: PHARMACY TELEPHONE CARE NOTE STANDARD TITLE: PHARMACY TELEPHONE ENCOUNTER NOTE DATE OF NOTE: MAR 17, 2025@11:14 ENTRY DATE: MAR 17, 2025@11:15:25 AUTHOR: COREY RAMIREZ EXP COSIGNER: URGENCY: STATUS: COMPLETED 1. Name of caller: PT 2. Phone #: 3. Specialty Clinic/Primary Care Team: Progress Note Date Title Author (and Author's Title) NOV 19, 2024@10:34 [facility] PROVIDER PROGRESS LAURY KENYON (NURSE PRACTI NOV 15, 2023@12:40 PC PROGRESS NOTE SEFERINO SYLVESTER (STAFF PHYSICI FEB 13, 2019@09:08 NURSE PRACTITIONER PRO NATE MURRAY (A R N P) 4. Medication: RENEW Rx #: [id number]$ BIKTARVY / TAB NO REFILL 5. Last fill date: 01/02/25 Provider: KRISTINA ROY 6. The caller requests prescription: Mailed 7. View Alert to: /angie/ COREY RAMIREZ CPHT Pharmacy Manager Financial Services Signed: 03/17/2025 11:20 Receipt Acknowledged By: 03/18/2025 10:34 /angie/ KRISTINA ROY MD ID ATTENDING COREY RAMIREZ-[facility]UR[facility] Mar 17, 2025 11:12 AM PHARMACY MEDICATIO N MGT NOTE: LOCAL TITLE: CONTROLLED SUBSTANCE RENEWAL REQUEST STANDARD TITLE: PHARMACY MEDICATION MGT NOTE DATE OF NOTE: MAR 17, 2025@11:12 ENTRY DATE: MAR 17, 2025@11:12:53 AUTHOR: COREY RAMIREZ EXP COSIGNER: URGENCY: STATUS: COMPLETED Rx requested - GABAPENTIN 300MG CAP Last fill date - 01-22-25 Progress Note Date Title Author (and Author's Title) NOV 19, 2024@10:34 [facility] PROVIDER PROGRESS LAURY KENYON (NURSE PRACTI NOV 15, 2023@12:40 PC PROGRESS NOTE SEFERINO SYLVESTER (STAFF PHYSICI FEB 13, 2019@09:08 NURSE PRACTITIONER PRO NATE MURRAY (A R N P) [place]/PDMP Progress Note Date Title Author (and Author's Title) FEB 10, 2025@08:24:19STATE PRESCRIPTION DAVID GARCIA (CLINICAL PHARM Orderable item(s) selected: NALOXONE INJ,SOLN; NALOXONE AUTOINJECTOR IM RESCUE INJ,SOLN; NALOXONE NASAL RESCUE 4MG SOLN,SPRAY,NASAL; NALOXONE NASAL RESCUE 8MG SOLN,SPRAY,NASAL; NALOXONE NASAL RESCUE KIT Last Rx # Stat Qty Issued Filled Rem NALOXONE HCL 4MG/SPRAY SOLN NASAL SPRAY [id number] ACTIVE 2 02/06/2025 02/08/2025 (1) SIG: SPRAY 1 DOSE IN ONE NOSTRIL ONLY DIRECTED FOR OPIOID OVERDOSE -CALL 05-04- IF MEDICATION IS ADMINISTERED. Indication: FOR OPIOID OVERDOSE Provider: LAURY KENYON Cost/Fill: $ 0.01 Mail ID signer [facility] alert sent to LAURY KENYON, Primary Care Provider Comments: DRUG SCREEN: ONLY Drug Screens within the prior 12 months will be listed Drug Screen: Collection DT Specimen Test Name Result Units Ref Range 01/15/2025 10:00 URINE !! THC SCR NEG Ref: Cutoff < 50 01/15/2025 10:00 URINE !! AMPHETAMINE SCR NEG Ref: Cutoff < 1000 01/15/2025 10:00 URINE !! BARBITURATES SCR NEG Ref: Cutoff < 200 01/15/2025 10:00 URINE !! BENZODIAZEPINES S NEG Ref: Cutoff < 200 01/15/2025 10:00 URINE !! COCAINu NEG Ref: Cutoff < 300 01/15/2025 10:00 URINE !! OPIATES SCR NEG Ref: Cutoff < 300 01/15/2025 10:00 URINE !! METHADONE SCR NEG Ref: Cutoff < 300 01/15/2025 10:00 URINE !! OXYCODONE SCR NEG Ref: Cutoff < 200 !! Indicates COMMENTS AVAILABLE...Refer to Interim Lab Report. /angie/ COREY RAMIREZ CPHT Pharmacy Manager Financial Services Signed: 03/17/2025 11:14 Receipt Acknowledged By: 03/17/2025 11:19 /angie/ LAURY KENYON APRN ADVANCED PRACTICE REGISTERED NURSE, COREY VILLARREAL-KAREND [facility]
--- OUTSIDE RECORDS SUMMARY | 2025-03-20 12:05 | XMS_ITS | Encounter Summary ---
Author Name [facility] [place] Address [address] [place] [address] Care Team Providers Care Skid Worker Name Role Phone LAURY KENYON Primary Care [...] PREFERRED PROVIDER ORGANIZAT AXEL (PPO) ARELIS ON [employer] LADY VARELA Jun 03, 2017 [id number] ROXI WINKLER PATIENT HUMANA MCR (WNR) MEDICARE ADVANTAGE [facility] (WNR) Sep 03, 2019 [id number] [phone] ROXI WINKLER JR PATIENT HUMANA MCR (WNR) MEDICARE ADVANTAGE MCR (WNR) Sep 03, 2019 [id number] [phone] ROXI WINKLER MCR (WNR) MEDICARE ADVANTAGE HUMAN A INSUR ANCE COM Apr 04, 2019 [id number] ROXI WINKLER MCR (WNR) MEDICARE ADVANTAGE [facility] (WNR) Apr 03, 2019 [id number] ROXI WINKLER MCR (WNR) MEDICARE ADVANTAGE MCR (WNR) Apr 03, 2019 [id number] ROXI WINKLER MCR (WNR) MEDICARE ADVANTAGE MCR (WNR) Apr 03, 2019 [id number] ROXI WINKLER JR MCR (WNR) MEDICARE ADVANTAGE [facility] (WNR) Apr 03, 2019 [id number] ROXI WINKLER JR PHARMACY PRESCRIPT ION NONE Jun 03, 2017 NONE [id number] ROXI WINKLER PATIENT MEDICARE PART D (WNR) MEDICARE (M) PART D Sep 03, 2023 PART D [id number] ROXI WINKLER JR PATIENT Selected Encounter This section includes the information on record at [place] for the Encounter. Date/Time Encounter Type Encounter Description Reason Provider Source Mar 20, 2025 04:05 PM PH1 ASSMT&MGMT NQHP 5-10 TELEPHONE [facility] ICD-10-CM G89.4 Chronic pain syndrome SHIMON SINCLAIR Adela Encounter Template Text not used by [place] Assessments - Encounter Diagnoses This section includes the primary and secondary diagnoses documented for the Encounter. Date/Time Primary/Secondary Diagnosis Diagnosis Name Provider Source Mar 20, 2025 04:05 PM PRIMARY Chronic pain syndrome [facility] Plan of Treatment: Future Appointments (+ 6 [...] 20 appointments. The data comes from all [place] treatment facilities. Appointment Date/Time Appointment Type Appointme nt Facility Name Apr 14, 2025 10:30 AM AMBULATORY - MEDICINE [facility] Active, Pending, and Scheduled Orders This section includes a listing of several types of active, pending, and scheduled orders, including clinic medications orders, diagnostic test orders, procedure orders and consult orders; where the start date of the order is 45 days before the date of the Encounter or 45 days after the date of theEncounter. The data comes from all [facility]. Test Date/Time Test Type Test Details Facility Name Mar 17, 2025 10:07 AM Consult Order [facility] Cons Internal Audit Consultant's Choice [facility] Mar 24, 2025 12:00 AM Laboratory - Chemi stry Order DIGOXIN [id number] SP ONCE [facility] Mar 24, 2025 12:00 AM Laboratory - Chemi stry Order PANEL 1 [id number] SP ONCE [facility] Social History: Smoking Status (Most current) [...] 05, 2016 01:12 AM NON-TOBACCO USE INPATIENT [facility] Tobacco Use History This section includes a history of the smoking, or tobacco-related health factors, that were collected on or before the date of the Encounter. The data comes from the [place] facility where the Encounter took place. Date/Time Smoking Status/Tobacco Use Comment F acility Nov 24, 2015 04:48 PM NON-TOBACCO USE INPATIENT [facility] Oct 01, 2014 07:15 PM NON-TOBACCO USE INPATIENT [facility] Apr 10, 2005 01:20 PM HF V9 LIFETIME NON-SMOKER [facility] Nov 24, 2003 03:11 PM HF V9 LIFETIME NON-SMOKER [facility] Oct 07, 2002 02:26 PM HF V9 LIFETIME NON-SMOKER [facility] Advance Directives: All historical and [...] 25, 2024 ADVANCE DIRECTIVE DISCUSSION ANTHONY IRVING-Yancy [facility] Encounter Notes: All associated encounter notes This section contains the clinical notes associated to the Encounter. Date/Time Encounter Note(s) Provider Source Mar 20, 2025 04:05 PM TELEPHONE ENCOUNTE R NOTE: LOCAL TITLE: [facility] TELEPHONE NOTE STANDARD TITLE: TELEPHONE ENCOUNTER NOTE DATE OF NOTE: MAR 20, 2025@16:05 ENTRY DATE: MAR 20, 2025@16:05:56 AUTHOR: SHIMON SINCLAIR EXP COSIGNER: URGENCY: STATUS: COMPLETED [facility] TELEPHONE NOTE Has ADDENDA Time spent on phone call: 5 min Direct call from patient=he stated that home health had been out to assess but no one has been since the start of care- Patient also stated that he was feeling very downhearted -he felt like things (health) should be turning around but it was one thing after another -he also stated that his pain was not being controlled on the Butrans patch-it has been increased once since he started it on 02/10-it is currently 7.5. [place] stated that he has trouble sleeping-that he is keeping the family and his neighbors awake at times-----rated his pain level during this phone conversation at a 7-not going below 3-4. He stated it is tiring out his body and his mind- Advised would ask about increasing the patch but would probably not hear anything until Sunday. He voiced understanding. PCP, Asking if pain patch can be increased- /katrina SINCLAIR RN Signed: 03/20/2025 16:14 Receipt Acknowledged By: 03/23/2025 10:41 /angie/ LAURY KENYON APRN ADVANCED PRACTICE REGISTERED NURSE, [facility] 03/23/2025 ADDENDUM STATUS: COMPLETED dose increased to 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 notifying pharmacy please mail now. /angie/ LAURY KENYON APRN ADVANCED PRACTICE REGISTERED NURSE, [facility] Signed: 03/23/2025 10:48 SHIMON SINCLAIR-MAURA [facility]
--- OUTSIDE RECORDS SUMMARY | 2025-03-24 05:00 | XMS_ITS | Encounter Summary ---
Author Name [facility] [place] Address [address] [place] [address] Care Team Providers Care Hydrogen Power Plant Engineer Name Role Phone LAURY KENYON Primary [...] PREFERRED PROVIDER ORGANIZAT AXEL (PPO) ARELIS ON [employer] LADY VARELA Jun 03, 2017 [id number] ROXI WINKLER PATIENT HUMANA MCR (WNR) MEDICARE ADVANTAGE [facility] (WNR) Sep 03, 2019 [id number] [phone] ROXI WINKLER JR PATIENT HUMANA MCR (WNR) MEDICARE ADVANTAGE [facility] (WNR) Sep 03, 2019 [id number] ROXI WINKLER MCR (WNR) MEDICARE ADVANTAGE HUMAN A INSUR ANCE COM Apr 04, 2019 [id number] ROXI WINKLER MCR (WNR) MEDICARE ADVANTAGE [facility] (WNR) Apr 03, 2019 [id number] ROXI WINKLER MCR (WNR) MEDICARE ADVANTAGE [facility] (WNR) Apr 03, 2019 [id number] ROXI WINKLER JR MCR (WNR) MEDICARE ADVANTAGE MCR (WNR) Apr 03, 2019 [id number] ROXI WINKLER MCR (WNR) MEDICARE ADVANTAGE [facility] (WNR) Apr 03, 2019 [id number] ROXI WINKLER JR PHARMACY PRESCRIPT ION NONE Jun 03, 2017 NONE [id number] ROXI WINKLER PATIENT MEDICARE PART D (WNR) MEDICARE (M) PART D Sep 03, 2023 PART D [id number] ROXI WINKLER JR PATIENT Selected Encounter This section includes the information on record at [place] for the Encounter. Date/Time Encounter Type Encounter Description Reason Provider Source Mar 24, 2025 09:00 AM PH1 ASSMT&MGMT NQHP 5-10 TELEPHONE [facility] ICD-10-CM J44.9 Chronic obstructive pulmonary disease, unspecified SHIMON SINCLAIR Adela Encounter Template Text not used by [place] Assessments - Encounter Diagnoses This section includes the primary and secondary diagnoses documented for the Encounter. Date/Time Primary/Secondary Diagnosis Diagnosis Name Provider Source Mar 24, 2025 09:00 AM PRIMARY Chronic obstructive pulmonary disease, unspecified SHIMON SINCLAIR [facility] Plan of Treatment: Future Appointments [...] 20 appointments. The data comes from all [facility]. Appointment Date/Time Appointment Type Appointme nt Facility Name Apr 14, 2025 10:30 AM [facility] Active, Pending, and Scheduled Orders This section includes a listing of several types of active, pending, and scheduled orders, including clinic medications orders, diagnostic test orders, procedure orders and consult orders; where the start date of the order is 45 days before the date of the Encounter or 45 days after the date of theEncounter. The data comes from all [facility]. Test Date/Time Test Type Test Details Facility Name Mar 17, 2025 10:07 AM Consult Order [facility] CARE Cons Shopping Centre Manager's Choice [facility] Mar 24, 2025 12:00 AM Laboratory - Chemi stry Order DIGOXIN [id number] SP ONCE [facility] Mar 24, 2025 12:00 AM Laboratory - Chemi stry Order PANEL 1 [id number] SP ONCE [facility] Social History: Smoking Status (Most current) and [...] Sep 25, 2024 ADVANCE DIRECTIVE DISCUSSION ANTHONY IRVING-D [facility] Encounter Notes: All associated encounter notes This section contains the clinical notes associated to the Encounter. Date/Time Encounter Note(s) Provider Source Mar 24, 2025 10:54 AM ADDENDUM: LOCAL TITLE: Addendum STANDARD TITLE: ADDENDUM DATE OF NOTE: MAR 24, 2025@10:54:44 ENTRY DATE: MAR 24, 2025@10:54:45 AUTHOR: LAURY KENYON EXP COSIGNER: URGENCY: STATUS: COMPLETED metoprolol and digoxin ordered. pharmacy please mail locally. /angie/ LAURY KENYON APRN ADVANCED PRACTICE REGISTERED NURSE, [facility] Signed: 03/24/2025 10:55 Receipt Acknowledged By: 03/24/2025 14:29 /es/ Allegra ArmstrongD. Pharmacy ADPAC --- Original Document --- 03/24/25 [facility] TELEPHONE NOTE: Time spent on phone call: 5 min call from Daughter-she stated patient needed the following filled-they were ordered when patient was in the local hospital: Metoprolol succ 100mg bid Digoxin 125mcg everyday- Will need these mailed locally- Patient also stated that he conts to have a cough and has a hard time getting phelgm up=he has completed the antibiotics that were sent with him from [facility]. Encouraged him to use his neb four times a day to see if that will help-he voiced understanding and agreement-he has been doing twice a day- [facility] RN to see this week. /es/ SHIMON SINCLAIR RN Signed: 03/24/2025 09:04 Receipt Acknowledged By: 03/24/2025 11:01 /angie/ LAURY KENYON APRN ADVANCED PRACTICE REGISTERED NURSE, [facility] Mar 24, 2025 09:00 AM TELEPHONE ENCOUNTE R NOTE: LOCAL TITLE: [facility] TELEPHONE NOTE STANDARD TITLE: TELEPHONE ENCOUNTER NOTE DATE OF NOTE: MAR 24, 2025@09:00 ENTRY DATE: MAR 24, 2025@09:00:41 AUTHOR: SHIMON SINCLAIR EXP COSIGNER: URGENCY: STATUS: COMPLETED [facility] TELEPHONE NOTE Has ADDENDA Time spent on phone call: 5 min call from Daughter-she stated patient needed the following filled-they were ordered when patient was in the local hospital: Metoprolol succ 100mg bid Digoxin 125mcg everyday- Will need these mailed locally- Patient also stated that he conts to have a cough and has a hard time getting phelgm up=he has completed the antibiotics that were sent with him from [facility]. Encouraged him to use his neb four times a day to see if that will help-he voiced understanding and agreement-he has been doing twice a day- [facility] RN to see this week. /angie/ SHIMON SINCLAIR RN Signed: 03/24/2025 09:04 Receipt Acknowledged By: 03/24/2025 11:01 /angie/ LAURY KENYON APRN ADVANCED PRACTICE REGISTERED NURSE, [facility] 03/24/2025 ADDENDUM STATUS: COMPLETED metoprolol and digoxin ordered. pharmacy please mail locally. /angie/ LAURY KENYON APRN ADVANCED PRACTICE REGISTERED NURSE, [facility] Signed: 03/24/2025 10:55 Receipt Acknowledged By: * AWAITING SIGNATURE * AMY SEE EDITH F [place]-Yancy [facility]
[2025-03-26] VITALS (11 sets, daily range): BP systolic 122–138; BP diastolic 61–95; PULSE 66–82; RESP 16–28; TEMP 36.9; O2SAT 76–97; BMI 31.8; BMI 30.2
--- OUTSIDE RECORDS SUMMARY | 2025-03-26 08:30 | XMS_ITS | Encounter Summary ---
Author Name [facility] Organization [facility] Address [address] [place] [address] Care Team Providers Care Webbing Weaver Name Role Phone LAURY KENYON Primary Care [...] ON [employer] Jun 03, 2017 [id number] ROXI WINKLER PATIENT [employer] [facility] (WNR) MEDICARE ADVANTAGE [facility] (WN) Sep 03, 2019 [id number] [phone] ROXI WINKLER JR PATIENT [employer] [facility] (WNR) MEDICARE ADVANTAGE [facility] (WNR) Sep 03, 2019 [id number] ROXI WINKLER MCR (WNR) MEDICARE ADVANTAGE HUMAN A INSUR ANCE COM Apr 04, 2019 [id number] [phone] ROXI WINKLERA MCR (WNR) MEDICARE ADVANTAGE [facility] (WNR) Apr 03, 2019 [id number] ROXI WINKLER MCR (WNR) MEDICARE ADVANTAGE MCR (WNR) Apr 03, 2019 [id number] ROXI WINKLER JR MCR (WNR) MEDICARE ADVANTAGE MCR (WNR) Apr 03, 2019 [id number] ROXI WINKLER MCR (WNR) MEDICARE ADVANTAGE MCR (WNR) Apr 03, 2019 [id number] ROXI WINKLER JR PHARMACY PRESCRIPT ION NONE Jun 03, 2017 NONE [id number] ROXI WINKLER PATIENT MEDICARE PART D (WNR) MEDICARE (M) PART D Sep 03, 2023 PART D [id number] [phone] ROXI WINKLER JR PATIENT Selected Encounter This section includes the information on record at [place] for the Encounter. Date/Time Encounter Type Encounter Description Reason Provider Source Mar 26, 2025 12:30 PM [facility] RN [facility] 15 MIN [facility] Nursing (RN / LP) ICD-10-CM J44.9 Chronic obstructive pulmonary disease, unspecified SHIMON SINCLAIR Adela Encounter Template Text not used by [place] Assessments - Encounter Diagnoses This section includes the primary and secondary diagnoses documented for the Encounter. Date/Time Primary/Secondary Diagnosis Diagnosis Name Provider Source Mar 26, 2025 05:08 PM PRIMARY Chronic obstructive pulmonary disease, unspecified SHIMON SINCLAIR [facility] Plan of Treatment: Future Appointments (+ 6 [...] 20 appointments. The data comes from all [facility]. Appointment Date/Time Appointment Type Appointme nt Facility Name Apr 14, 2025 10:30 AM AMBULATORY - MEDICINE [facility] Active, Pending, and Scheduled Orders This section includes a listing of several types of active, pending, and scheduled orders, including clinic medications orders, diagnostic test orders, procedure orders and consult orders; where the start date of the order is 45 days before the date of the Encounter or 45 days after the date of theEncounter. The data comes from all [facility]. Test Date/Time Test Type Test Details Facility Name Mar 17, 2025 10:07 AM Consult Order [facility] Cons Senior Technical Support Analyst's Choice [facility] Mar 24, 2025 12:00 AM Laboratory - Chemi stry Order DIGOXIN [id number] SP ONCE [facility] Mar 24, 2025 12:00 AM Laboratory - Chemi stry Order PANEL 1 [id number] SP ONCE [facility] Social History: Smoking Status (Most current) [...] 05, 2016 01:12 AM NON-TOBACCO USE INPATIENT [facility] Tobacco Use History This section includes a history of the smoking, or tobacco-related health factors, that were collected on or before the date of the Encounter. The data comes from the [place] facility where the Encounter took place. Date/Time Smoking Status/Tobacco Use Comment F acility Nov 24, 2015 04:48 PM NON-TOBACCO USE INPATIENT [facility] Oct 01, 2014 07:15 PM NON-TOBACCO USE INPATIENT [facility] Apr 10, 2005 01:20 PM HF V9 LIFETIME NON-SMOKER [facility] Nov 24, 2003 03:11 PM HF V9 LIFETIME NON-SMOKER [facility] Oct 07, 2002 02:26 PM HF V9 LIFETIME NON-SMOKER [facility] Advance Directives: All historical [...] 25, 2024 ADVANCE DIRECTIVE DISCUSSION ANTHONY IRVING [facility] Encounter Notes: All associated encounter notes This section contains the clinical notes associated to the Encounter. Date/Time Encounter Note(s) Provider Source Mar 26, 2025 05:09 PM [facility] MEDICATION MG T NOTE: LOCAL TITLE: HB NEW MEDICATION EDUCATION NOTE STANDARD TITLE: [facility] MEDICATION MGT NOTE DATE OF NOTE: MAR 26, 2025@17:09 ENTRY DATE: MAR 26, 2025@17:09:52 AUTHOR: SHIMON SINCLAIR EXP COSIGNER: URGENCY: STATUS: COMPLETED New Medication Education. Patient's medications are managed by: Self/Caregiver Patient currently uses the following to help manage medications: Medication Organizers (Pill Boxes) New Medication Education Indicated: new medication(s) started since last [facility] visit where medication reconciliation was performed or at this visit. Name of new medication(s): Metoprolol succ 100mg bid Digoxin 125mcg everyday- Education provided to patient/caregiver for new medication(s) [...] medication(s) at the time of dispensing. yes Did patient/caregiver understand medication education provided? Yes Verbalized understanding /angie/ SHIMON SINCLAIR RN Signed: 03/26/2025 17:10 SHIMON SINCLAIRYancy [facility] Mar 26, 2025 04:47 PM [facility] NURSING NOTE: LOCAL TITLE: [facility] NURSING PROGRESS STANDARD TITLE: [facility] NURSING NOTE DATE OF NOTE: MAR 26, 2025@16:47 ENTRY DATE: MAR 26, 2025@16:47:40 AUTHOR: SHIMON SINCLAIR EXP COSIGNER: URGENCY: STATUS: COMPLETED [facility] NURSING PROGRESS Has ADDENDA [facility] FOLLOW-UP NOTE Date of visit: Mar Time spent with patient: 1 hour and 30 min Date of admission to [facility]: Patient Identified by: Name, Facial Recognition, Known Address Source of Information: Patient, Spouse MEDICATIONS: Active Medications: Active Outpatient Medications (including Supplies): ALBUTEROL 90MCG (CFC-F) 200D ORAL INHL INHALE 2 PUFFS BY ACTIVE MOUTH EVERY 6 HOURS NEEDED FOR SHORTNESS OF BREATH ALBUTEROL SO4 0.083% INHL 3ML USE 1 AMP (2.5MG/3ML) IN ACTIVE NEBULIZER FOUR TIMES A DAY NEEDED Indication: FOR SHORTNESS OF BREATH BANDAGE,GAUZE 4.5IN X 4.1YD STERILE USE BANDAGE ON ACTIVE AFFECTED AREA EVERY OTHER DAY Indication: FOR WOUND CARE BIKTARVY 50/200/25 TAB TAKE 1 TABLET BY MOUTH DAILY ACTIVE Indication: INFECTION BUMETANIDE 2MG TAB TAKE ONE TABLET BY MOUTH TWICE A DAY ACTIVE (TAKE ADDITIONAL EVENING DOSE FOR 3LB WEIGHT GAIN IN 24 HOURS OR 5LB WEIGHT GAIN IN 1 WEEK) NOTE DOSE INCREASE 03/17/25 Indication: FOR FLUID BUPRENORPHINE 10MCG/HR PATCH APPLY 1 PATCH (10MCG/HR) TO ACTIVE SKIN EVERY SEVEN DAYS Indication: FOR PAIN CLEANSER,WOUND SKINTEGRITY TOP SPRAY SPRAY TO AFFECTED ACTIVE AREA NEEDED Indication: FOR WOUND CARE DICLOFENAC NA 1% TOP GEL APPLY 2 GRAM STRIP TO AFFECTED ACTIVE AREA EVERY 6 HOURS NEEDED - APPLY TO SHOULDER Indication: FOR PAIN DIGOXIN 125MCG TAB TAKE ONE TABLET BY MOUTH DAILY ACTIVE Indication: FOR HEART DOCUSATE NA 50MG/SENNOSIDES 8.6MG TAB TAKE 1 [...] NEEDED ACTIVE Indication: FOR BLOOD SUGAR MONITORING INSULIN CONC REG HUM 500 UNT/ML KWIKPEN INJECT 60 UNITS ACTIVE UNDER THE SKIN EVERY MORNING AND INJECT 50 UNITS EVERY EVENING -KEEP REFRIGERATED UNTIL PEN IN USE, ONCE IN USE DISCARD AFTER 28 DAYS Indication: FOR BLOOD SUGAR METHOCARBAMOL 750MG TAB TAKE ONE TABLET BY MOUTH EVERY 6 ACTIVE HOURS NEEDED FOR MUSCLE SPASM METOPROLOL TARTRATE 100MG TAB TAKE ONE TABLET BY MOUTH ACTIVE TWICE A DAY Indication: FOR BLOOD PRESSURE NALOXONE HCL 4MG/SPRAY SOLN NASAL SPRAY SPRAY 1 DOSE IN ACTIVE ONE NOSTRIL ONLY DIRECTED -CALL IF MEDICATION IS ADMINISTERED. Indication: FOR OPIOID OVERDOSE NEEDLE,PEN 31G,8MM USE NEEDLE NEEDLE,PEN 31G,5/16IN DEVICE ACTIVE DIRECTED FOR USE WITH U500 KWICKPEN OLODATEROL/TIOTROP 2.5MCG/ACTUAT 60D INH INHALE 2 PUFFS BY ACTIVE MOUTH EVERY MORNING FOR BREATHING PANTOPRAZOLE NA 40MG EC TAB TAKE ONE TABLET BY MOUTH DAILY ACTIVE TAKE ON AN EMPTY STOMACH. Indication: FOR STOMACH POVIDONE IODINE 10% TOP SOLN APPLY SPARINGLY TO AFFECTED ACTIVE AREA TWICE A DAY NEEDED APPLY TO TOE Indication: FOR SKIN INFECTION PROMOGRAN MIKE 4.34 X 4.34IN #MA028 APPLY DRESSING(S) ACTIVE TO AFFECTED AREA EVERY OTHER DAY SITAGLIPTIN (EQV-ZITUVIO) 100MG TAB TAKE ONE TABLET BY ACTIVE MOUTH DAILY -REPLACES ALOGLIPTIN. STORE IN ORIGINAL CONTAINER. OPENED BOTTLES MUST BE USED WITHIN 3 MONTHS Indication: FOR BLOOD SUGAR TAMSULOSIN HCL 0.4MG CAP TAKE ONE CAPSULE BY MOUTH EVERY ACTIVE (S) EVENING FOR PROSTATE VENLAFAXINE HCL 150MG 24HR SA CAP TAKE ONE CAPSULE BY ACTIVE MOUTH DAILY Indication: FOR CHRONIC PAIN Non-VA ASPIRIN 81MG EC TAB 81MG MOUTH DAILY ACTIVE Non-VA OXYGEN GAS 3 LITERS NASAL CANNULA DAILY ACTIVE 28 Total Medications Dsdz-jij-jqyvuek products used by patient: per daughter and patient-none Medications/OTC/supplements started and/or discontinued since last [facility] visit. per [facility] medication record- Medication list compared with list/medication bottles in the home: No medication discrepancies were identified. Has the patient missed any doses since the last visit?* No Updated medication list was provided for the patient/caregiver: during the visit Education Provided: Education including regimen, indication for use, potential side effects, and interactions provided for the following medications: reveiwed with patient and spouse-both voiced understanding. Medication education and updated medication sheet provided to: Spouse Patient/caregiver indicated understanding by: Verbalization Medications [...] Sleeping Arrangements No Inadequate Ventilation No Inadequate [place] No Unsafe Storage of Supplies/Equipment No Presence of Infestation of Pests Yes Functioning Smoke Alarm Present No Fire Extinguisher Present Yes Fire Exit Plan No Use of Restraints Yes Home is adaptable for Home Care No Smoking materials present in the home N/A Pets secured in an area away from the area of care provision No Additional safety concerns: Temperature: Temperature: 98.2 F (36.8 C) Pulse: Pulse: 88 Pulse Oximetry: 94 Respirations: Respirations: 16 Blood Pressure: Blood Pressure: 120/66 Pain: Pain: 5 OXYGEN IN THE HOME: [...] education: Verbalizes understanding, Agreed to oxygen safety responsibilities PAIN EVALUATION: Patient answers YES to Do you have pain? question. Pain Scale: 5 interrupts some activities Type of pain: Dull, Throbbing Patient's acceptable pain level: 3 Chronic Onset/Duration: shoulder-back and knees Therapeutic Actions Taken:pain patch has been increased to 10-waiting on new dosage to arrive. The pain affects your: Sleep, Physical activity, Concentration NEUROLOGICAL STATUS: No problems noted The patient is currently: Alert, Oriented to person, Oriented to place, Oriented to situation, Confused/Disorientation, Follows verbal commands, Pupils PEARRL Patient appeared to be having some confusion today-he denied that- The patient exhibits: Forgetful Education Provided: Review of s/s that need immediate medical attention (CVA, Head Trauma, Severe unrelieved headaches, seizures, ect...) Depression Screen: Over the last 2 WEEKS, how often have you been bothered by any of the following problems? Little interest or pleasure in doing things: not at all (0 points) Feeling down, depressed, or hopeless: several days (1 point) Score: 0 Positive Screen = 3 or [...] require immediate medication attention (s/s of acute WA, palpitations, ect...), Notify [facility] of new or worsening symptoms, Other:elevate feet and legs. RESPIRATORY STATUS: Lung Sounds: Right Upper Lobe: Clear Right Middle Lobe: Clear Right Lower Lobe: Clear -diminished Left Upper Lobe: Clear Left Lower Lobe: Clear -diminished Education provided: Take medications as prescribed, Symptoms to report to provider (new or worsening symptoms) GASTROINTESTINAL STATUS: Abdomen is: Flat Bowel Sounds: Normal Abdominal Pain: Bowel Movements: Last BM: this am Frequency: EVERY COUPLE OF DAYS AT LEAST [...] large hematoma on the lower right side and left side of his abdomen- they appear smaller-patient stated he has had some pain at that area- Has two toes that have open areas-daughter is doing the wound [id number] and patient stated that his toes do look better. MOBILITY: Patient is ambulatory with assistive devices: Rollator, Wheelchair, Patient extremety strength is: All extremities strong bilaterally FALLS: Have you fallen since last visit: No NURSING SUMMARY OF CARE: Reviewed poc and current interventions with patient and spouse-all voiced understanding and agreement- PROCEDURES/INTERVENTIONS: [...] understanding of education by: Verbalizes Comments: Will schedule visit in the next two weeks to attempt to obtain labs again-was unable to at today's visit-attempted times three- Skilled nurse in home to teach on HTN COPD CHF Diabetes PCP, Hematoma's look smaller at today's visit-however patient stated that they have been painful the last couple of days- Patient repoorts havng some days that he has felt really bad-he was c/o nausea but no vomiting-he burped several times and this seemed to help- He stated that his pain has been out of control-5 at today's visit-advised that new dosage of pain patch was on its way-he voiced understanding- Left knee pain is new and stated that he is unsure what he did to his knee- denies falling- Is waiting on PT to start- He also stated that it seemed he had phelgm that he was having difficulty getting up-was better after increasing his neb treatments to 3-4 a day instead of just doing two-lungs were clear but lower lobes were diminished-this not abnormal for patient- He stated he coughed up some greenish/black phelgm a day ago-none since then- He appeared a little confused at times-he voiced he might be-he did know day time and who he presidnet was-could not tell year- Conts to have open area on right great toe and one next to it-he stated they do look better-have a call into daughter since she does his wound care. /angie/ SHIMON SINCLAIR RN Signed: 03/26/2025 17:09 Receipt Acknowledged By: * AWAITING SIGNATURE * LAURY KENYON 03/26/2025 ADDENDUM STATUS: COMPLETED Call from Kimberley-she stated that after visit-patient took a nap and when he woke up he appeared to be really confused-advised that since he is not clearing up like he did during the visit he should probably go to the ED-she stated that their daughter was on her way and they would take him-she or daughter will let us know. /es/ SHIMON SINCLAIR RN Signed: 03/26/2025 17:24 Receipt Acknowledged By: * AWAITING SIGNATURE * LAURY KENYON EDITH [facility]
--- OUTSIDE RECORDS SUMMARY | 2025-03-26 13:51 | XMS_ITS | Continuity of Care Document ---
Author Name [facility] Organization [facility] Care Team Providers Care Retail Presentation Specialist Name Role Phone [facility] Unavailable Unavailable Problems Combined list of problems from Department of Defense and Veterans Affairs facilities. It does not include entries that were removed or entered in error. Problem Status Onset Date Problem Type Date of Resolution Comments Source Aneurysm of thoracic aorta Active Condition January 02, 2019 Entered By: KLETON LARES RA Comment: 4.3cm [place] [facility] Atrial fibrillation Active Condition [place] [facility] Benign essential hypertension Active Condition [place] [facility] Benign neoplasm of colon [facility] Benign Prostatic Hypertrophy without Outflow Obstruction (SCT [id number]) Active Condition [place] [facility] Bilateral senile combined form cataracts of eyes [facility] Cervicalgia Active Condition [place] [facility] Chronic diastolic heart failure Active Condition [place] [facility] Chronic hypoxemic respiratory failure Active Condition [place] [facility] Chronic obstructive pulmonary disease Active [place] [facility] N Chronic pain syndrome Active Condition [place] [facility] Closed fracture of left humerus Active Condition [facility] Coronary arteriosclerosis [facility] Depressive Disorder NOS Active Condition [place] [facility] Fracture of thoracic spine Active Condition Jun 18, 2020 Entered By: JACY HOUGH Comment: T7 fracture; s/p fusion on 06-15-20 (T 5-9) [facility] Gastroesophageal reflux disease Active Condition [place] [facility] History of polyp of colon Active Condition [place] [facility] Human immunodeficiency virus Active Condition [place] [facility] Long-term current use of insulin (SNOMED CT [id number]) Active Condition [place] [facility] Low back pain Active Condition [place] [facility] Microscopic hematuria Active Condition [place] [facility] Mixed hyperlipidemia Active Condition [place] [facility] 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 Active Condition [place] [facility] Moderate nonproliferative diabetic retinopathy of right eye Active Condition [place] [facility] Obesity (SNOMED CT [id number]) Active Condition [place] [facility] Obstructive Sleep APNEA (ADULT) (Pediatric) (ICD-9-CM 327.23) Active Condition [place] [facility] Other Malaise and Fatigue (ICD-9-CM 780.79) Active Condition [place] [facility] Pain in left knee Active Condition [place] [facility] Peripheral venous insufficiency Active Condition [place] [facility] Pseudophakia Active Condition [place] [facility] Respiratory failure Active Condition [place] [facility] Type 2 diabetes mellitus without complication Active Condition [place] [facility] Venous stasis Active Condition [place] [facility] Vitamin D deficiency Active Condition [place] [facility] ACUTE URI NOS Inactive Condition 05/23/2007 [place] [facility] Chest Pain * (ICD-9-CM 786.50) Inactive Condition 01/02/2019 [place] [facility] Degeneration of intervertebral disc (ICD-9-CM 722.6) Inactive Condition 01/02/2019 [place] [facility] DIABETES MELLI W/O COMP TYP II Inactive Condition 01/02/2019 [place] [facility] Foot Injury (ICD-9-CM 959.7) Inactive Condition 01/02/2019 [place] [facility] Human Immunodeficiency Virus (HIV) Disease (ICD-9-CM 042.) Inactive Condition 01/02/2019 [place] [facility] Hyperlipidemia Inactive Condition 01/02/2019 [place] [facility] Hypertension * (ICD-9-CM 401.9) Inactive Condition 01/02/2019 [place] [facility] Neck Pain (ICD-9-CM 723.1) Inactive Condition 01/02/2019 [place] [facility] Osteoarthritis Inactive Condition 01/02/2019 [place] [facility] Spinal Stenosis * (ICD-9-CM 724.00) Inactive Condition 01/02/2019 [place] [facility] Umbilical hernia without mention of obstruction or gangrene (ICD-9-CM 553.1) Inactive Condition 05/23/2007 [facility] Diagnosis: ICD-10-CM J44.9 Chronic obstructive pulmonary disease, unspecified Active Diagnosis [facility] Diagnosis: ICD-10-CM G89.4 Chronic pain syndrome Active Diagnosis [facility] Diagnosis: ICD-10-CM I48.91 Unspecified atrial fibrillation Active Diagnosis [facility] Diagnosis: ICD-10-CM Z79.899 Other technician terminal and repeater (current) drug therapy Active Diagnosis [facility] Diagnosis: ICD-10-CM I50.32 Chronic diastolic (congestive) heart failure Active Diagnosis [facility] Diagnosis: ICD-10-CM Z65.9 Problem related to unspecified psychosocial circumstances Active Diagnosis [facility] Diagnosis: ICD-10-CM E11.40 Type 2 diabetes mellitus with diabetic neuropathy, unsp Active Diagnosis [facility] Diagnosis: ICD-10-CM Z91.81 History of falling Active Diagnosis [facility] Diagnosis: ICD-10-CM Z79.01 prison (current) use of anticoagulants Active Diagnosis [facility] Diagnosis: ICD-10-CM E11.9 Type 2 diabetes mellitus without complications Active [facility] Diagnosis: ICD-10-CM E11.65 Type 2 diabetes mellitus with hyperglycemia Active Diagnosis [facility] Diagnosis: ICD-10-CM I48.0 Paroxysmal atrial fibrillation Active Diagnosis [facility] Diagnosis: ICD-10-CM I10 Essential (primary) hypertension Active Diagnosis [facility] Diagnosis: ICD-10-CM Z86.31 Personal history of diabetic foot ulcer Active Diagnosis [facility] Diagnosis: ICD-10-CM I48.19 Other persistent atrial fibrillation Active Diagnosis [facility] Diagnosis: ICD-10-CM B20 Human immunodeficiency virus [HIV] disease Active Diagnosis [facility] Diagnosis: ICD-10-CM L76.34 Postproc seroma of skin, subcu following other procedure Active Diagnosis [facility] Diagnosis: ICD-10-CM E11.8 Type 2 diabetes mellitus with unspecified complications Active Diagnosis [place] [facility] Diagnosis: ICD-10-CM J96.11 Chronic respiratory failure with hypoxia Active Diagnosis [facility] Diagnosis: ICD-10-CM Z74.1 Need for assistance with personal care Active Diagnosis [facility] Diagnosis: ICD-10-CM G89.29 Other chronic pain Active Diagnosis [facility] Diagnosis: ICD-10-CM Z71.89 Other specified counseling Active Diagnosis [place] [facility] Diagnosis: ICD-10-CM M54.2 Cervicalgia Active Diagnosis GHANSHYAM YOO [facility] Diagnosis: ICD-10-CM M79.622 Pain in left upper arm Active Diagnosis CEDRIC ASHLEY [facility] Diagnosis: ICD-10-CM E11.3391 Type 2 diab with mod nonp rtnop without macular edema, r eye Active Diagnosis [facility] Diagnosis: ICD-10-CM M54.16 Radiculopathy, lumbar region Active Diagnosis [place] [facility] Diagnosis: ICD-10-CM E66.01 Morbid (severe) obesity due to excess calories Active Diagnosis BHAVANA DIETRICH [facility] Medications Combined list of outpatient medications from Department of Defense and [facility] Affairs facilities.Medications provided include 1) outpatient medications from the last 15 months, and 2) patient-reported medications. Medication Details Route Status Patient Instructions Prescription Expires Prescription Number Last Dispense Date Ordering Provider Order Date Order Qty Source ALBUTEROL SO4 0.083% INHL,3ML USE 1 AMP (2.5MG/3 ML) IN NEBULIZE R FOUR TIMES A DAY NEEDED FOR SHORTNES S OF BREATH RESPIR ATORY (INHAL ATION) ACTIVE 02/21/2026 [id number] 5 JANICE KENYON 2024 120 [place] [facility] ALBUTEROL SO4 90MCG/ACTUA T (CFC-F) INHL,ORAL,8 .5GM INHALE 2 PUFFS BY MOUTH EVERY 6 HOURS NEEDED FOR SHORTNES S OF BREATH RESPIR ATORY (INHAL ATION) ACTIVE 06/18/2025 [id number] 5 ERICKA PARRA 2023 3 [place] [facility] ALOGLIPTIN 12.5MG TAB TAKE ONE TABLET BY MOUTH DAILY FOR BLOOD SUGAR ORAL DISCONT INUED 01/14/2025 [id number] 4 CESAR DENTON RA 2023 90 [place] [facility] AMOXICILLIN TRIHYDRATE 875MG/CLAVU LANATE K 125MG TAB TAKE 1 TABLET BY MOUTH TWICE A DAY FOR PNEUMONI A ORAL DISCONT INUED BY PROVIDE R 03/22/2025 [id number] 5 JANICE KENYON K 2024 10 [place] [facility] AMOXICILLIN TRIHYDRATE 875MG/CLAVU LANATE K 125MG TAB TAKE 1 TABLET BY MOUTH TWICE A DAY FOR SKIN OR SOFT TISSUE INFECTIO N ORAL DISCONT INUED BY PROVIDE R 01/10/2025 [id number] 5 Thompson MONTELONGOANDER 2024 20 [place] [facility] ASCORBIC ACID 500MG TAB TAKE ONE TABLET BY MOUTH DAILY (TAKE WITH IRON SUPPLEME NT FOR BETTER ABSORPTI ON) ORAL DISCONT INUED BY PROVIDE R 12/28/2024 [id number] 4 SEFERINO SYLVESTER 2023 100 [place] [facility] ASPIRIN 81MG TAB,EC TAKE ONE TABLET BY MOUTH DAILY ORAL ACTIVE JOSE,RO DNEY D 2017 [place] [facility] AZITHROMYCI N 500MG TAB TAKE ONE TABLET BY MOUTH DAILY FOR PNEUMONI A ORAL DISCONT INUED BY PROVIDE R 03/22/2025 [id number] 5 JANICE KENYON K 2024 3 [place] [facility] BICTEGRAVIR 50MG/EMTRIC ITABINE 200MG/TENOF OVIR AF 25MG TAB TAKE 1 TABLET BY MOUTH DAILY INFECTIO N ORAL ACTIVE 04/17/2025 [id number] 5 KRISTINA CARTER 2024 30 [place] [facility] BICTEGRAVIR 50MG/EMTRIC ITABINE 200MG/TENOF OVIR AF 25MG TAB TAKE 1 TABLET BY MOUTH DAILY INFECTIO N ORAL DISCONT INUED 10/15/2025 [id number] 5 KRISTINA CARTER S 2024 90 [place] BICTEGRAVIR 50MG/EMTRIC ITABINE 200MG/TENOF OVIR AF 25MG TAB TAKE 1 TABLET BY MOUTH DAILY INFECTIO N ORAL DISCONT INUED 08/12/2025 [id number] 4 KRISTINA CARTER S 2023 30 [place] BICTEGRAVIR 50MG/EMTRIC ITABINE 200MG/TENOF OVIR AF 25MG TAB TAKE 1 TABLET BY MOUTH DAILY INFECTIO N ORAL DISCONT INUED 02/20/2025 [id number] 4 KRISTINA CARTER S 2023 90 [place] BICTEGRAVIR 50MG/EMTRIC ITABINE 200MG/TENOF OVIR AF 25MG TAB TAKE 1 TABLET BY MOUTH DAILY INFECTIO N ORAL DISCONT INUED 12/28/2024 [id number] 4 KRISTINA CARTER S 2023 30 [place] BUMETANIDE 2MG TAB TAKE ONE TABLET BY MOUTH TWICE A DAY FOR FLUID FOR FLUID (TAKE ADDITION AL EVENING DOSE FOR 3LB WEIGHT GAIN IN 24 HOURS OR 5LB WEIGHT GAIN IN 1 WEEK) NOTE DOSE INCREASE 03/17/25 FOR FLUID (TAKE ADDITION AL EVENING DOSE FOR 3LB WEIGHT GAIN IN 24 HOURS OR 5LB WEIGHT GAIN IN 1 WEEK) NOTE DOSE INCREASE 03/17/25 ORAL ACTIVE 03/18/2026 [id number] 5 JANICE KENYON 2024 180 [place] BUMETANIDE 2MG TAB TAKE ONE TABLET BY MOUTH DAILY FOR FLUID (TAKE ADDITION AL EVENING DOSE FOR 3LB WEIGHT GAIN IN 24 HOURS OR 5LB WEIGHT GAIN IN 1 WEEK) FOR FLUID (TAKE ADDITION AL EVENING DOSE FOR 3LB WEIGHT GAIN IN 24 HOURS OR 5LB WEIGHT GAIN IN 1 WEEK) ORAL DISCONT INUED (EDIT) 09/13/2025 [id number] 5 JANICE KENYON 2024 120 [place] [facility] BUMETANIDE 2MG TAB TAKE ONE TABLET BY MOUTH DAILY FOR FLUID (TAKE ADDITION AL EVENING DOSE FOR 3LB WEIGHT GAIN IN 24 HOURS OR 5LB WEIGHT GAIN IN 1 WEEK) FOR FLUID (TAKE ADDITION AL EVENING DOSE FOR 3LB WEIGHT GAIN IN 24 HOURS OR 5LB WEIGHT GAIN IN 1 WEEK) ORAL DISCONT INUED 09/11/2024 [id number] 4 SEFERINO SYLVESTER 2023 120 [place] [facility] BUPRENORPHI NE 10MCG/HR PATCH APPLY 1 PATCH (10MCG/H R) TO SKIN EVERY SEVEN DAYS FOR PAIN TRANSD ERMAL ACTIVE 09/23/2025 [id number] 5 JANICE KENYON 2024 4 [place] [facility] BUPRENORPHI NE 5MCG/HR PATCH APPLY 1 PATCH (5MCG/HR ) TO SKIN EVERY SEVEN DAYS FOR PAIN TRANSD ERMAL DISCONT INUED (EDIT) 03/08/2025 [id number] 5 JANICE KENYON 2024 4 [place] [facility] BUPRENORPHI NE 7.5MCG/HR PATCH APPLY 1 PATCH (7.5MCG/ HR) TO SKIN EVERY SEVEN DAYS FOR PAIN NOTE DOSE INCREASE 02/20/25 TRANSD ERMAL DISCONT INUED BY PROVIDE R 04/16/2025 [id number] 5 JANICE KENYON 2024 4 [place] [facility] BUPRENORPHI NE 7.5MCG/HR PATCH APPLY 1 PATCH (7.5MCG/ HR) TO SKIN EVERY SEVEN DAYS FOR PAIN NOTE DOSE INCREASE 02/20/25 TRANSD ERMAL DISCONT INUED 03/22/2025 [id number] 5 JANICE KENYON 2024 4 [place] [facility] CHOLECALCIF NIRANJAN 25MCG (1,000UNIT) TAB TAKE ONE TABLET BY MOUTH DAILY FOR VITAMIN D SUPPLEME NT ORAL DISCONT INUED BY PROVIDE R 09/13/2025 [id number] 5 JANICE KENYON 2024 100 [place] [facility] CHOLECALCIF NIRANJAN 25MCG (1,000UNIT) TAB TAKE ONE TABLET BY MOUTH DAILY FOR VITAMIN D SUPPLEME NT ORAL DISCONT INUED 09/11/2024 [id number] 4 SEFERINO SYLVESTER 2023 100 [place] [facility] CLEANSER,SK INTEGRITY SPRAY,TOP SPRAY TO AFFECTED AREA NEEDED FOR WOUND CARE TOPICA L ACTIVE 11/29/2025 [id number] 5 JANICE KENYON 2024 240 [place] [facility] DICLOFENAC NA 1% GEL,TOP APPLY 2 GRAM STRIP TO AFFECTED AREA EVERY 6 HOURS NEEDED FOR PAIN - APPLY TO SHOULDER TOPICA L ACTIVE 01/03/2026 [id number] 5 JANICE KENYON 2024 200 [place] [facility] DIGOXIN 125MCG TAB TAKE ONE TABLET BY MOUTH DAILY FOR HEART ORAL ACTIVE 03/25/2026 [id number] 5 JANICE KENYON 2024 90 [place] [facility] DOCUSATE NA 50MG/SENNOS IDES 8.6MG TAB TAKE 1 TABLET BY MOUTH TWICE A DAY FOR CONSTIPA TION ORAL ACTIVE 12/04/2025 [id number] 5 CORAL RICARDO 2024 200 [place] [facility] EMPAGLIFLOZ IN 25MG TAB TAKE ONE-HALF TABLET BY MOUTH EVERY MORNING FOR BLOOD SUGAR ORAL DISCONT INUED BY PROVIDE R 02/08/2025 [id number] 4 CESRA DENTON RA 2023 45 [place] [facility] FERROUS SO4 324MG TAB,EC TAKE 1 TABLET BY MOUTH DAILY FOR IRON SUPPLEME NT AND ANEMIA - TAKE WITH FOOD ORAL DISCONT INUED BY PROVIDE R 09/09/2025 [id number] 5 SEFERINO SYLVESTER 2024 100 [place] [facility] FERROUS SO4 324MG TAB,EC TAKE 1 TABLET BY MOUTH DAILY FOR IRON SUPPLEME NT AND ANEMIA - TAKE WITH FOOD ORAL DISCONT INUED 07/16/2024 [id number] 4 SEFERINO SYLVESTER 2022 100 [place] [facility] FINASTERIDE 5MG TAB TAKE ONE TABLET BY MOUTH DAILY FOR PROSTATE ORAL ACTIVE 09/09/2025 [id number] 5 SEFERINO SYLVESTER 2024 90 [place] [facility] FINASTERIDE 5MG TAB TAKE ONE TABLET BY MOUTH DAILY FOR PROSTATE ORAL DISCONT INUED 08/07/2024 [id number] 4 SEFERINO SYLVESTER 2022 90 [place] [facility] GABAPENTIN 300MG CAP TAKE TWO CAPSULES BY MOUTH EVERY MORNING AND TAKE THREE CAPSULES EVERY EVENING AND TAKE THREE CAPSULES AT BEDTIME FOR NERVE PAIN ORAL ACTIVE 03/20/2026 [id number] 5 DARIEL SOMERS 2024 240 [place] [facility] GABAPENTIN 300MG CAP TAKE TWO CAPSULES BY MOUTH EVERY MORNING AND TAKE THREE CAPSULES EVERY EVENING AND TAKE THREE CAPSULES AT BEDTIME FOR NERVE PAIN ORAL DISCONT INUED 12/03/2025 [id number] 5 CORAL RICARDO 2024 240 [place] [facility] GABAPENTIN 300MG CAP TAKE TWO CAPSULES BY MOUTH EVERY MORNING AND TAKE THREE CAPSULES EVERY EVENING AND TAKE THREE CAPSULES AT BEDTIME FOR NERVE PAIN ORAL DISCONT INUED 09/02/2025 [id number] 5 SEFERINO SYLVESTER 2024 240 [place] [facility] [place] GABAPENTIN 300MG CAP TAKE THREE CAPSULES BY MOUTH EVERY MORNING AND TAKE THREE CAPSULES EVERY EVENING AND TAKE FOUR CAPSULES AT BEDTIME FOR NERVE PAIN ORAL DISCONT INUED (EDIT) 06/19/2025 [id number] 4 ERICKA PARRA 2023 300 [place] [facility] GABAPENTIN 300MG CAP TAKE THREE CAPSULES BY MOUTH EVERY MORNING AND TAKE THREE CAPSULES EVERY EVENING AND TAKE FOUR CAPSULES AT BEDTIME FOR NERVE PAIN ORAL DISCONT INUED 03/05/2025 [id number] 4 SEFERINO SYLVESTER 2023 300 [place] [facility] GABAPENTIN 300MG CAP TAKE THREE CAPSULES BY MOUTH EVERY MORNING AND TAKE THREE CAPSULES EVERY EVENING AND TAKE FOUR CAPSULES AT BEDTIME FOR NERVE PAIN ORAL DISCONT INUED 11/21/2024 [id number] 4 SEFERINO SYLVESTER 2023 300 [place] [facility] GLUCOSE 4GM TAB,CHEW CHEW 4 TABLETS (16 GRAMS OF CARBS) BY MOUTH DIRECTED NEEDED FOR LOW BLOOD SUGAR ORAL ACTIVE 02/08/2025 [id number] 4 CESAR DENTON RA 2023 60 [place] [facility] INSULIN,REG ULAR,HUMAN CONCENTRATE D 500 UNIT/ML INJ,KWIKPEN ,3ML INJECT 60 UNITS UNDER THE SKIN EVERY MORNING AND INJECT 50 UNITS EVERY EVENING FOR BLOOD SUGAR -KEEP REFRIGER ATED UNTIL PEN IN USE, ONCE IN USE DISCARD AFTER 28 DAYS SUBCUT ANEOUS ACTIVE 11/22/2025 [id number] 5 CESAR DENTON RA 2024 8 [place] [facility] INSULIN,REG ULAR,HUMAN CONCENTRATE D 500 UNIT/ML INJ,KWIKPEN ,3ML INJECT 65 UNITS UNDER THE SKIN TWICE A DAY BEFORE MEALS FOR BLOOD SUGAR -KEEP REFRIGER ATED UNTIL PEN IN USE, ONCE IN USE DISCARD AFTER 28 DAYS SUBCUT ANEOUS ACTIVE 02/08/2025 [id number] 4 CESAR DENTON RA 2023 8 [place] [facility] INSULIN,REG ULAR,HUMAN CONCENTRATE D 500 UNIT/ML INJ,KWIKPEN ,3ML INJECT 70 UNITS UNDER THE SKIN EVERY MORNING AND INJECT 60 UNITS EVERY EVENING FOR BLOOD SUGAR -KEEP REFRIGER ATED UNTIL PEN IN USE, ONCE IN USE DISCARD AFTER 28 DAYS SUBCUT ANEOUS DISCONT INUED 07/20/2024 [id number] 4 CESAR [facility]ENTON RA 20[facility] LIDOCAINE 5% PATCH APPLY 2 PATCHES TO SKIN DAILY NEEDED FOR PAIN. (LEAVE ON 12 HOURS, THEN REMOVE FOR 12 HOURS) TRANSD ERMAL 03/05/2025 [id number] 5 SEFERINO SYLVESTER 2023 30 [place] [facility] METHOCARBAM OL 750MG TAB TAKE ONE TABLET BY MOUTH EVERY 6 HOURS NEEDED FOR MUSCLE SPASM ORAL ACTIVE 01/03/2026 [id number] 5 GISELAYERICKA 2024 120 [place] METHOCARBAM OL 750MG TAB TAKE ONE TABLET BY MOUTH EVERY 6 HOURS NEEDED FOR MUSCLE SPASM ORAL DISCONT INUED 06/18/2025 [id number] 5 FLAREY,ERICKA LAUREANO 2023 120 [place] METHOCARBAM OL 750MG TAB TAKE ONE TABLET BY MOUTH EVERY 6 HOURS NEEDED FOR MUSCLE SPASM ORAL DISCONT INUED 06/26/2024 [id number] 4 SEFERINO SYLVESTER 2022 120 [place] [facility] METOPROLOL TARTRATE 100MG TAB TAKE ONE TABLET BY MOUTH TWICE A DAY FOR BLOOD PRESSURE ORAL ACTIVE 03/25/2026 [id number] 5 JANICE KENYON 2024 180 [place] METOPROLOL TARTRATE 100MG TAB TAKE ONE TABLET BY MOUTH TWICE A DAY FOR BLOOD PRESSURE /HEART ORAL 09/26/2024 [id number] 4 SEFERINO SYLVESTER 2023 180 [place] [facility] NALOXONE HCL 4MG/SPRAY SOLN,SPRAY, NASAL SPRAY 1 DOSE IN ONE NOSTRIL ONLY DIRECTED FOR OPIOID OVERDOSE -CALL [phone] IF MEDICATI ON IS ADMINIST ERED. NASAL ACTIVE 02/07/2026 [id number] 5 JANICE KENYON K 2024 2 [place] [facility] OLODATEROL 2.5MCG/TIOT ROPIUM 2.5MCG/ACTU AT INHL,ORAL,6 0D,4GM INHALE 2 PUFFS BY MOUTH EVERY MORNING FOR BREATHIN G RESPIR ATORY (INHAL ATION) ACTIVE 06/18/2025 [id number] 5 GISELAYERICKA 10/17/ 2024 3 [place] OXYGEN GAS INHALE 3 LITERS BY NASAL CANNULA DAILY NASAL ACTIVE JANICE KENYON LUCY [place] 2024 [place] PANTOPRAZOL E NA 40MG TAB,EC TAKE ONE TABLET BY MOUTH DAILY FOR STOMACH TAKE ON AN EMPTY STOMACH. ORAL ACTIVE 09/02/2025 [id number] 5 SEFERINO SYLVESTER Thompson 2024 90 [place] [facility] PANTOPRAZOL E NA 40MG TAB,EC TAKE ONE TABLET BY MOUTH TWICE A DAY FOR STOMACH. TAKE ON AN EMPTY STOMACH. ORAL DISCONT INUED (EDIT) 09/11/2024 [id number] 4 SEFERINO SYLVESTER Thompson 2023 180 [place] [facility] POVIDONE IODINE 10% SOLN,TOP APPLY SPARINGL Y TO AFFECTED AREA TWICE A DAY NEEDED FOR SKIN INFECTIO N APPLY TO TOE TOPICA L ACTIVE 02/21/2026 [id number] 5 JANICE KENYON 2024 480 [place] SITAGLIPTIN (EQV-ZITUVI O) 100MG TAB TAKE ONE TABLET BY MOUTH DAILY FOR BLOOD SUGAR -REPLACE S ALOGLIPT IN. STORE IN [facility]IG[facility]AL [facility] RBen OPENED BOTTLES MUST BE USED WITHIN 3 MONTHS ORAL ACTIVE 11/22/2025 [id number] 5 CESAR DENTON RA 2024 90 [place] [facility] SITAGLIPTIN (EQV-ZITUVI O) 100MG TAB TAKE ONE TABLET BY MOUTH DAILY FOR BLOOD SUGAR -REPLACE S ALOGLIPT [facility]. [facility] R[facility] OPENED BOTTLES MUST BE USED WITHIN 3 MONTHS ORAL DISCONT INUED 12/07/2024 [id number] 5 CESAR DENTON RA 2024 90 [place] SITAGLIPTIN (EQV-[id number] O) 100MG TAB TAKE ONE TABLET BY MOUTH DAILY FOR BLOOD SUGAR -REPLACE S ALOGLIPT IN. STORE IN ORIGINAL [facility] RBen OPENED BOTTLES MUST BE USED WITHIN 3 MONTHS ORAL DISCONT INUED 08/12/2024 [id number] CESAR DENTON RA 2023 90 [place] SULFAMETHOX AZOLE 800MG/TRIME THOPRIM 160MG TAB TAKE 2 TABLETS BY MOUTH TWICE A DAY FOR SKIN OR SOFT TISSUE INFECTIO N FOR DIABETIC FOOT INFECTIO N ORAL DISCONT INUED BY PROVIDE R 12/21/2024 [id number] CESAR DENTON RA [place] 2024 28 [place] TAMSULOSIN HCL 0.4MG CAP TAKE ONE CAPSULE BY MOUTH EVERY EVENING FOR PROSTATE ORAL SUSPEND ED 09/09/2025 [id number] 5 SEFERINO SYLVESTER 2024 90 [place] TAMSULOSIN HCL 0.4MG CAP TAKE ONE CAPSULE BY MOUTH EVERY EVENING FOR PROSTATE ORAL DISCONT INUED 08/07/2024 [id number] 4 SEFERINO SYLVESTER 2022 90 [place] TRAMADOL HCL 50MG TAB TAKE ONE TABLET BY MOUTH EVERY MORNING AND TAKE ONE TABLET EVERY EVENING AND TAKE TWO TABLETS AT BEDTIME NEEDED FOR PAIN (USE SPARINGL Y. SUPPLY MUST LAST 30 DAYS. CAUSES IMPAIRME NT, RECOMMEN D NOT TO DRIVE ON THIS MEDICATI ON.) ORAL DISCONT INUED 03/04/2025 [id number] 5 SEFERINO SYLVESTER 2024 120 [place] [facility] TRAMADOL HCL 50MG TAB TAKE TWO TABLETS BY MOUTH EVERY 6 HOURS NEEDED FOR PAIN (USE SPARINGL Y. SUPPLY MUST LAST 30 DAYS. CAUSES IMPAIRME NT, RECOMMEN D NOT TO DRIVE ON THIS MEDICATI ON.) ORAL DISCONT INUED (EDIT) 12/24/2024 [id number] 4 GISELAYERICKA 2023 180 [place] [facility] TRAMADOL HCL 50MG TAB TAKE ONE TABLET BY MOUTH EVERY 6 HOURS NEEDED FOR PAIN (USE SPARINGL Y. SUPPLY MUST LAST 30 DAYS. CAUSES IMPAIRME NT, RECOMMEN D NOT TO DRIVE ON THIS MEDICATI ON.) ORAL DISCONT INUED (EDIT) 10/08/2024 [id number] ERICKA PARRA 2023 120 [place] [facility] TRAMADOL HCL 50MG TAB TAKE ONE TABLET BY MOUTH EVERY 6 HOURS NEEDED FOR PAIN (USE SPARINGL Y. SUPPLY MUST LAST 30 DAYS. CAUSES IMPAIRME NT, RECOMMEN D NOT TO DRIVE ON THIS MEDICATI ON.) ORAL DISCONT INUED 06/15/2024 [id number] SEFERINO SYLVESTER 2023 120 [place] [facility] TRAMADOL HCL 50MG TAB TAKE ONE TABLET BY MOUTH EVERY MORNING AND TAKE ONE TABLET EVERY EVENING AND TAKE TWO TABLETS AT BEDTIME FOR PAIN ORAL 02/14/2025 [id number] JANICE KENYON 2024 120 [place] [facility] VENLAFAXINE HCL 150MG 24HR CAP,SA TAKE ONE CAPSULE BY MOUTH DAILY FOR CHRONIC PAIN ORAL ACTIVE 09/13/2025 [id number] 5 JANICE KENYON 2024 90 [place] [facility] VENLAFAXINE HCL 150MG 24HR CAP,SA TAKE ONE CAPSULE BY MOUTH DAILY FOR CHRONIC PAIN ORAL DISCONT INUED 09/11/2024 [id number] SEFERINO SYLVESTER 2023 90 [place] [facility] Allergies, Adverse Reactions, Alerts Combined list of allergies from Department of Defense and Veterans Affairs facilities. It does not include entries that were removed or entered in error. Substance Category Reaction Severity Reaction type Status Date Reported Comments Source AMLODIPINE BESYLATE 5MG TABLET Propensity to adverse reactions to drug (finding) Edema of lower extremity active 0 [place] [facility] ATENOLOL Propensity to adverse reactions to drug (finding) Lethargy SEVERE active 8 [place] [facility] ENALAPRIL Propensity to adverse reactions to drug (finding) Eruption active 3 [place] [facility] FOSINOPRIL Propensity to adverse reactions to drug (finding) active 3 [place] [facility] HYDRALAZINE Propensity to adverse reactions to drug (finding) Muscle pain SEVERE active 8 [facility] LOPID Propensity to adverse reactions to drug (finding) OTHER REACTION active 4 [facility] NIASPAN 500MG ER TABLET Propensity to adverse reactions to drug (finding) Eruption active 6 [facility] SEMAGLUTIDE Propensity to adverse reactions to drug (finding) Nausea and vomiting SEVERE active 3 [facility] SIMVASTATIN Propensity to adverse reactions to drug (finding) Generalized aches and pains active 0 [facility] VASOTEC Propensity to adverse reactions to drug (finding) Edema of lower extremity, Swollen ankle region active 0 [facility] Immunizations Combined list of available immunizations from the Department of Defense and Veterans Affairs facilities. Immunization Series Date Given Administered By Site Reaction Lot Number CVX Code Drug Chronograph Operator Status Comments Source INFLUENZA, HIGH-DOSE, TRIVALENT, PF 2024 ENMA SINCLAIR F RIGHT DELTO ID [id number] 135 complet ed [place], [place] [facility] INFLUENZA, HIGH-DOSE, QUADRIVALENT 2023 DAY WHEATLEY LEFT DELTO ID [id number] A 197 complet ed Completed Series, [place], [place] [facility] INFLUENZA, HIGH-DOSE, QUADRIVALENT 2022 APACANMEÑO STEPHENSON I A LEFT DELTO ID [id number] A 197 complet ed [place], [place] ZOSTER RECOMBINANT 1 2022 JUNE WHEELER L RIGHT DELTO ID [id number] 187 complet ed [place], [place] PNEUMOCOCCAL CONJUGATE PCV20, POLYSACCHARID E [id number] CONJUGATE, ADJUVANT, PF 2022 ESCOBAR MONTAÑO LEFT DELTO ID [id number] 216 complet ed [place], [place] [facility] COVID-19 (PFIZER), MRNA, LNP-S, BIVALENT BOOSTER, PF, 30 MCG/0.3 ML DOSE 1 2021 POLLY BLACKWELL LEFT DELTO ID [id number] 300 complet ed [place], [place] INFLUENZA, INJECTABLE, QUADRIVALENT, PRESERVATIVE FREE 2021 150 complet ed [place] [facility] COVID-19 (MODERNA), MRNA, LNP-S, PF, 100 MCG/0.5ML DOSE OR 50 MCG/0.25ML DOSE 3 2020 207 complet ed HISTORICA L INFORMATI ON - FROM OTHER REGISTRY, [place] [facility] COVID-19 (MODERNA), MRNA, LNP-S, PF, 100 MCG/0.5 ML DOSE 2 2020 207 complet ed [place] [facility] [place] COVID-19 (MODERNA), MRNA, LNP-S, PF, 100 MCG/0.5 ML DOSE 1 2020 207 complet ed [place] [facility] INFLUENZA, INJECTABLE, QUADRIVALENT, PRESERVATIVE FREE 2019 150 complet ed [place] [facility], SEASONAL, INJECTABLE 2018 141 complet ed [place] [facility] INFLUENZA, SEASONAL, INJECTABLE 2017 141 complet ed [place] [facility] PNEUMOCOCCAL POLYSACCHARID E [id number] 2017 33 complet ed Completed Series, [place] [facility] INFLUENZA A & B (HISTORICAL) 2016 88 complet ed [place] [facility] INFLUENZA A & B (HISTORICAL) 2015 88 complet ed [place] [facility] INFLUENZA A & B (HISTORICAL) 2014 88 complet ed [place] [facility] [place] FLU,3 YRS (HISTORICAL) 2014 88 complet ed [place] [facility] FLU,3 YRS (HISTORICAL) 2013 88 complet ed [place] [facility] [id number] (HISTORICAL) 2013 133 complet ed [place] [facility] TDAP (HISTORICAL) 2013 115 complet ed [place] [facility] INFLUENZA A & B (HISTORICAL) 2012 88 complet ed [place] [facility] INFLUENZA A & B (HISTORICAL) 2011 88 complet ed [place] [facility] PNEUMOCOCCAL, UNSPECIFIED FORMULATION 2010 109 complet ed [place] [facility] INFLUENZA A & B (HISTORICAL) 2010 88 complet ed [place] [facility] INFLUENZA A & B (HISTORICAL) 2009 88 complet ed [place] [facility] NOVEL INFLUENZA-H1N 1-09, ALL FORMULATIONS [address] [facility] [place] [facility] [place] INFLUENZA A & B (HISTORICAL) 2008 88 complet ed [place] [facility] INFLUENZA A & B (HISTORICAL) 2007 88 complet ed PATIENT [facility] [place] [facility] INFLUENZA A & B (HISTORICAL) 2006 88 complet ed [place] [facility] INFLUENZA A & B (HISTORICAL) 2005 88 complet ed [place] [facility] [place] PNEUMOCOCCAL, UNSPECIFIED FORMULATION 2005 LAUREEN SORTO 109 complet ed [place] [facility] INFLUENZA A & B (HISTORICAL) 2004 88 complet ed [place] [facility] INFLUENZA A & B (HISTORICAL) 2004 88 complet ed no reaction [place] [facility] INFLUENZA A & B (HISTORICAL) 2003 88 complet ed [place] [facility] INFLUENZA A & B (HISTORICAL) 2003 88 complet ed [facility] TO [facility], UNSPECIFIED FORMULATION 2002 88 complet ed no reaction [place] [facility] TD(ADULT) UNSPECIFIED FORMULATION 2002 139 complet ed [place] [facility] INFLUENZA, UNSPECIFIED FORMULATION 2001 88 complet ed no reaction [place] [facility] TD(ADULT) UNSPECIFIED FORMULATION 1997 139 complet ed [place] [facility] PNEUMOCOCCAL, UNSPECIFIED FORMULATION 1996 109 complet ed no reaction [place] [facility] Results Combined list of recent chemistry, hematology and other laboratory results from Department of Defense and Veterans Affairs, ranging from 15 months to all on record, depending upon the facility. Order Name Results Value Reference Range Date Interpretation Specimen Comments Source DRUG SCREEN EXPANDED IN-HOUSE TETRAHYDRO CANNABINOL [PRESENCE] IN URINE NEG Cutoff < 50 - 50 01/15 Specimen Type: URINE Comment: Screening method results are unconfirmed and are for medical use only. Unconfirmed screening results must not be used for non-medical purposes. Opiates test most sensitive for morphine, codeine and heroin and less sensitive for hydrocodone and hydromorpho ne where higher concentrati ons are needed for cut-off detection. Drugs of abuse screening is a preliminary analytical test result. A more specific alternate chemical method (GC/MS) must be used to obtain a confirmed analytical result. This assay provides a preliminary unconfirmed analytical test result that may be suitable for clinical management of patients in certain situations. Drug-test results should be interpreted in the context of clinical information . Patient metabolic characteris tics can affect test outcome. Ordering Provider: HANY KENYON Report Released Date/Time: January 02, 2025 08:09 AM Reporting Lab: JULIAN MARRERO [address] [address] Performing Lab: JULIAN [address] [address] [facility] DRUG SCREEN EXPANDED IN-HOUSE AMPHETAMIN ES [PRESENCE] IN URINE NEG Cutoff < 1000 - 1000 01/15 Specimen Type: URINE Comment: Screening method results are unconfirmed and are for medical use only. Unconfirmed screening results must not be used for non-medical purposes. Opiates test most sensitive for morphine, codeine and heroin and less sensitive for hydrocodone and hydromorpho ne where higher concentrati ons are needed for cut-off detection. Drugs of abuse screening is a preliminary analytical test result. A more specific alternate chemical method (GC/MS) must be used to obtain a confirmed analytical result. This assay provides a preliminary unconfirmed analytical test result that may be suitable for clinical management of patients in certain situations. Drug-test results should be interpreted in the context of clinical information . Patient metabolic characteris tics can affect test outcome. Ordering Provider: HANY KENYON Report Released Date/Time: January 02, 2025 08:09 AM Reporting Lab: [place] [id number] Performing Lab: [place] [id number] DRUG SCREEN EXPANDED IN-HOUSE BARBITURAT ES [PRESENCE] IN URINE BY SCREEN METHOD NEG Cutoff < 200 - 200 01/15 Specimen Type: URINE Comment: Screening method results are unconfirmed and are for medical use only. Unconfirmed screening results must not be used for non-medical purposes. Opiates test most sensitive for morphine, codeine and heroin and less sensitive for hydrocodone and hydromorpho ne where higher concentrati ons are needed for cut-off detection. Drugs of abuse screening is a preliminary analytical test result. A more specific alternate chemical method (GC/MS) must be used to obtain a confirmed analytical result. This assay provides a preliminary unconfirmed analytical test result that may be suitable for clinical management of patients in certain situations. Drug-test results should be interpreted in the context of clinical information . Patient metabolic characteris tics can affect test outcome. Ordering Provider: HANY KENYON Report Released Date/Time: January 02, 2025 08:09 AM Reporting Lab: [place] [id number] Performing Lab: [address] DRUG SCREEN EXPANDED IN-HOUSE BENZODIAZE PINES [PRESENCE] IN URINE BY SCREEN METHOD NEG Cutoff < 200 - 200 01/15 Specimen Type: URINE Comment: Screening method results are unconfirmed and are for medical use only. Unconfirmed screening results must not be used for non-medical purposes. Opiates test most sensitive for morphine, codeine and heroin and less sensitive for hydrocodone and hydromorpho ne where higher concentrati ons are needed for cut-off detection. Drugs of abuse screening is a preliminary analytical test result. A more specific alternate chemical method (GC/MS) must be used to obtain a confirmed analytical result. This assay provides a preliminary unconfirmed analytical test result that may be suitable for clinical management of patients in certain situations. Drug-test results should be interpreted in the context of clinical information . Patient metabolic characteris tics can affect test outcome. Ordering Provider: HANY KENYON Report Released Date/Time: January 02, 2025 08:09 AM Reporting Lab: [address] [address] Performing Lab: [address] [address] [facility] DRUG SCREEN EXPANDED IN-HOUSE BENZOYLECG ONINE [PRESENCE] IN URINE NEG Cutoff < 300 - 300 01/15 Specimen Type: URINE Comment: Screening method results are unconfirmed and are for medical use only. Unconfirmed screening results must not be used for non-medical purposes. Opiates test most sensitive for morphine, codeine and heroin and less sensitive for hydrocodone and hydromorpho ne where higher concentrati ons are needed for cut-off detection. Drugs of abuse screening is a preliminary analytical test result. A more specific alternate chemical method (GC/MS) must be used to obtain a confirmed analytical result. This assay provides a preliminary unconfirmed analytical test result that may be suitable for clinical management of patients in certain situations. Drug-test results should be interpreted in the context of clinical information . Patient metabolic characteris tics can affect test outcome. Ordering Provider: HANY KENYON Report Released Date/Time: January 02, 2025 08:09 AM Reporting Lab: [address] [address] Performing Lab: [address] [address] [facility] DRUG SCREEN EXPANDED IN-HOUSE OPIATES [PRESENCE] IN URINE BY SCREEN METHOD NEG Cutoff < 300 - 300 01/15 Specimen Type: URINE Comment: Screening method results are unconfirmed and are for medical use only. Unconfirmed screening results must not be used for non-medical purposes. Opiates test most sensitive for morphine, codeine and heroin and less sensitive for hydrocodone and hydromorpho ne where higher concentrati ons are needed for cut-off detection. Drugs of abuse screening is a preliminary analytical test result. A more specific alternate chemical method (GC/MS) must be used to obtain a confirmed analytical result. This assay provides a preliminary unconfirmed analytical test result that may be suitable for clinical management of patients in certain situations. Drug-test results should be interpreted in the context of clinical information . Patient metabolic characteris tics can affect test outcome. Ordering Provider: HANY KENYON Report Released Date/Time: January 02, 2025 08:09 AM Reporting Lab: [address] [address] Performing Lab: [address] [address] [facility] DRUG SCREEN EXPANDED IN-HOUSE METHADONE [PRESENCE] IN URINE NEG Cutoff < 300 - 300 01/15 Specimen Type: URINE Comment: Screening method results are unconfirmed and are for medical use only. Unconfirmed screening results must not be used for non-medical purposes. Opiates test most sensitive for morphine, codeine and heroin and less sensitive for hydrocodone and hydromorpho ne where higher concentrati ons are needed for cut-off detection. Drugs of abuse screening is a preliminary analytical test result. A more specific alternate chemical method (GC/MS) must be used to obtain a confirmed analytical result. This assay provides a preliminary unconfirmed analytical test result that may be suitable for clinical management of patients in certain situations. Drug-test results should be interpreted in the context of clinical information . Patient metabolic characteris tics can affect test outcome. Ordering Provider: HANY KENYON Report Released Date/Time: January 02, 2025 08:09 AM Reporting Lab: [address] [address] Performing Lab: [address] [address] [facility] DRUG SCREEN EXPANDED IN-HOUSE OXYCODONE [PRESENCE] IN URINE NEG Cutoff < 200 - 200 01/15 Specimen Type: URINE Comment: Screening method results are unconfirmed and are for medical use only. Unconfirmed screening results must not be used for non-medical purposes. Opiates test most sensitive for morphine, codeine and heroin and less sensitive for hydrocodone and hydromorpho ne where higher concentrati ons are needed for cut-off detection. Drugs of abuse screening is a preliminary analytical test result. A more specific alternate chemical method (GC/MS) must be used to obtain a confirmed analytical result. This assay provides a preliminary unconfirmed analytical test result that may be suitable for clinical management of patients in certain situations. Drug-test results should be interpreted in the context of clinical information . Patient metabolic characteris tics can affect test outcome. Ordering Provider: HANY KENYON Report Released Date/Time: January 02, 2025 08:09 AM Reporting Lab: [address] [address] Performing Lab: [place] [id number] [place] [address] DRUG SCREEN EXPANDED IN-HOUSE BUPRENORPH INE+NORBUP RENORPHINE [PRESENCE] IN URINE NEG Cutoff < 5 - 5 01/15 Specimen Type: URINE Comment: Screening method results are unconfirmed and are for medical use only. Unconfirmed screening results must not be used for non-medical purposes. Opiates test most sensitive for morphine, codeine and heroin and less sensitive for hydrocodone and hydromorpho ne where higher concentrati ons are needed for cut-off detection. Drugs of abuse screening is a preliminary analytical test result. A more specific alternate chemical method (GC/MS) must be used to obtain a confirmed analytical result. This assay provides a preliminary unconfirmed analytical test result that may be suitable for clinical management of patients in certain situations. Drug-test results should be interpreted in the context of clinical information . Patient metabolic characteris tics can affect test outcome. Ordering Provider: HANY KENYON Report Released Date/Time: January 02, 2025 08:09 AM Reporting Lab: [address] [address] Performing Lab: [place] [id number] [facility] DRUG SCREEN EXPANDED IN-HOUSE FENTANYL SCREEN IN-HOUSE NEG Cutoff < 1 - 1 01/15 Specimen Type: URINE Comment: Screening method results are unconfirmed and are for medical use only. Unconfirmed screening results must not be used for non-medical purposes. Opiates test most sensitive for morphine, codeine and heroin and less sensitive for hydrocodone and hydromorpho ne where higher concentrati ons are needed for cut-off detection. Drugs of abuse screening is a preliminary analytical test result. A more specific alternate chemical method (GC/MS) must be used to obtain a confirmed analytical result. This assay provides a preliminary unconfirmed analytical test result that may be suitable for clinical management of patients in certain situations. Drug-test results should be interpreted in the context of clinical information . Patient metabolic characteris tics can affect test outcome. Ordering Provider: HANY KENYON Report Released Date/Time: January 02, 2025 08:09 AM Reporting Lab: [place] [id number] Performing Lab: [place] [id number] [facility] CBC/PLT LEUKOCYTES [#/VOLUME] IN BLOOD BY AUTOMATED COUNT 11.6 10*3/uL 5.0 - 10.0 01/14 H Specimen Type: BLOOD No comment entered. Ordering Provider: HANY KENYON Report Released Date/Time: January 06, 2025 12:45 PM Reporting Lab: [place] [id number] Performing Lab: [place] [id number] [facility] CBC/PLT ERYTHROCYT ES [#/VOLUME] IN BLOOD BY AUTOMATED COUNT 4.36 10*6/uL 4.6 - 6.2 01/14 L Specimen Type: BLOOD No comment entered. Ordering Provider: HANY KENYON Report Released Date/Time: January 06, 2025 12:45 PM Reporting Lab: [address] [address] Performing Lab: [place] [id number] [facility] CBC/PLT HEMOGLOBIN [MASS/VOLU ME] IN BLOOD 12.7 g/dL 14.0 - 18.0 01/14 L Specimen Type: BLOOD No comment entered. Ordering Provider: HANY KENYON Report Released Date/Time: January 06, 2025 12:45 PM Reporting Lab: [address] [address] Performing Lab: [place] [id number] [facility] CBC/PLT HEMATOCRIT [VOLUME FRACTION] OF BLOOD BY AUTOMATED COUNT 39.9 42.0 - 52.0 01/14 L Specimen Type: BLOOD No comment entered. Ordering Provider: HANY KENYON Report Released Date/Time: January 06, 2025 12:45 PM Reporting Lab: [place] [address] Performing Lab: [address] CBC/PLT MCV [ENTITIC VOLUME] BY AUTOMATED COUNT 91.5 fL 80.0 - 94.0 01/14 Specimen Type: BLOOD No comment entered. Ordering Provider: HANY KENYON Report Released Date/Time: January 06, 2025 12:45 PM Reporting Lab: [place] [address] Performing Lab: [address] CBC/PLT MCH [ENTITIC MASS] BY AUTOMATED COUNT 29.1 pg 27.0 - 31.0 01/14 Specimen Type: BLOOD No comment entered. Ordering Provider: HANY KENYON Report Released Date/Time: January 06, 2025 12:45 PM Reporting Lab: [place] [address] Performing Lab: [address] CBC/PLT MCHC [MASS/VOLU ME] BY AUTOMATED COUNT 31.8 g/dL 32.0 - 36.0 01/14 L Specimen Type: BLOOD No comment entered. Ordering Provider: HANY KENYON Report Released Date/Time: January 06, 2025 12:45 PM Reporting Lab: [place] [address] Performing Lab: [address] CBC/PLT PLATELETS [#/VOLUME] IN BLOOD 212 10*3/uL 150 - 450 01/14 Specimen Type: BLOOD No comment entered. Ordering Provider: HANY KENYON Report Released Date/Time: January 06, 2025 12:45 PM Reporting Lab: [place] [id number] Performing Lab: [address] CBC/PLT PLATELET MEAN VOLUME [ENTITIC VOLUME] IN BLOOD 9.9 fL 9.0 - 13.1 01/14 Specimen Type: BLOOD No comment entered. Ordering Provider: HANY KENYON Report Released Date/Time: January 06, 2025 12:45 PM Reporting Lab: [place] [id number] Performing Lab: [place] [id number] CBC/PLT ERYTHROCYT E DISTRIBUTI ON WIDTH [ENTITIC VOLUME] BY AUTOMATED COUNT 14.6 11.0 - 16.0 01/14 Specimen Type: BLOOD No comment entered. Ordering Provider: HANY KENYON Report Released Date/Time: January 06, 2025 12:45 PM Reporting Lab: [place] [id number] Performing Lab: [place] [id number] [place] [address] CBC/PLT NUCLEATED ERYTHROCYT ES/100 ERYTHROCYT ES IN BLOOD 0.0 0.0 - 0.0 01/14 Specimen Type: BLOOD No comment entered. Ordering Provider: HANY KENYON Report Released Date/Time: January 06, 2025 12:45 PM Reporting Lab: [place] [id number] Performing Lab: [place] [id number] [place] [address] GLYCOHEM OGLOBIN HEMOGLOBIN A1C/HEMOGL OBIN.TOTAL IN BLOOD BY HPLC 7.2 4.4 - 5.6 01/14 H Specimen Type: BLOOD Comment: Prediabetes : 5.7%-6.4% Diabetes: >= 6.5% [facility] guidelines for A1c interpretat ion: Glycemic control targets are based on Shared Decision Making between clinicians and patients. Criteria used to establish an A1c target recommendat ion can be found at https://www .[place].gov/shira lityandpati entsafety/ and include the use of result accuracy and precision(C V) of the A1c tests clinicians utilize at their own sites of practice. Values obtained from A1C measurement s can vary. For typical A1C assays, a reported value of 7.0 could actually be between 6.72 and 7.28 if measured by a reference method. A reported value of 9.0 could actually be between 8.73 and 9.27. Ref: https://ngs p.org/CAPda ta.asp. The in-house aitainment-[employer] D-100 analyzer has a historical CV <= 2%. Contact the laboratory for further performance characteris tics of this assay. Ordering Provider: HANY KENYON Report Released Date/Time: January 06, 2025 03:36 PM Reporting Lab: [facility] [address] [address] Performing Lab: [address] [address] [facility] PANEL 1 CREATININE [MASS/VOLU ME] IN SERUM OR PLASMA 0.97 mg/dL 0.72 - 1.25 01/14 Specimen Type: PLASMA Comment: CRITICAL CALLED TO and READ BACK BY: LAURY KENYON 01/14/25@154 1 K[facility] Estimated Glomerular Filtration Rate (eGFR) calculated using the 2020 Chronic Kidney Disease-Epi demiology (CKD-EPI) Collaborati on creatinine equation; units of measure are mL/min/1.73 m2. Results are only valid for adults (>=18 years) whose serum creatinine is in a steady state. eGFR calculation s are not valid for patients with acute kidney injury and for patients on dialysis. Creatinine- based estimates of kidney function may also be inaccurate in patients with reduced creatinine generation due to decreased muscle mass (e.g., malnutritio n, severe hypoalbumin emia, sarcopenia, chronic neuromuscul ar disease, amputations , severe heart failure or liver disease) and in patients with increased creatinine generation due to increased muscle mass (e.g., muscle builders, anabolic steroids) or increased dietary intake. As drug clearance is proportiona l to total GFR and not GFR indexed to body surface area (BSA), in individuals with a BSA substantial ly different than 1.73 m2, drug dosing should be based on the reported eGFR value de-indexed from BSA by multiplying by the individual' s BSA and dividing by 1.73. CKD is diagnosed based on abnormaliti es of kidney structure or function, present for >3 months, with implication s for health and disease. CKD is classified and staged based on cause, eGFR and albuminuria (quantified as urine albumin to creatinine ratio). An eGFR >60 mL/min/1.73 m2 in the absence of increased urine albumin excretion or structural abnormaliti es does not represent CKD. eGFR CKD Interpretat ion (mL/min/1.7 3 m2) stage >=90 G1 Normal 60-89 G2 Mild decrease 45-59 G3A Mild to moderate decrease 30-44 G3B Moderate to severe decrease 15-29 G4 Severe decrease <15 G5 Kidney failure Ordering Provider: HANY KENYON Report Released Date/Time: January 06, 2025 03:36 PM Reporting Lab: [facility] [address] [address] Performing Lab: JUL[facility] MARR[facility] [address] [address] [facility] PANEL 1 UREA NITROGEN [MASS/VOLU ME] IN SERUM OR PLASMA 15 mg/dL - 01/14 Specimen Type: PLASMA Comment: CRITICAL CALLED TO and READ BACK BY: LAURY KENYON 01/14/25@154 1 KLP Estimated Glomerular Filtration Rate (eGFR) calculated using the 2020 Chronic Kidney Disease-Epi demiology (CKD-EPI) Collaborati on creatinine equation; units of measure are mL/min/1.73 m2. Results are only valid for adults (>=18 years) whose serum creatinine is in a steady state. eGFR calculation s are not valid for patients with acute kidney injury and for patients on dialysis. Creatinine- based estimates of kidney function may also be inaccurate in patients with reduced creatinine generation due to decreased muscle mass (e.g., malnutritio n, severe hypoalbumin emia, sarcopenia, chronic neuromuscul ar disease, amputations , severe heart failure or liver disease) and in patients with increased creatinine generation due to increased muscle mass (e.g., muscle builders, anabolic steroids) or increased dietary intake. As drug clearance is proportiona l to total GFR and not GFR indexed to body surface area (BSA), in individuals with a BSA substantial ly different than 1.73 m2, drug dosing should be based on the reported eGFR value de-indexed from BSA by multiplying by the individual' s BSA and dividing by 1.73. CKD is diagnosed based on abnormaliti es of kidney structure or function, present for >3 months, with implication s for health and disease. CKD is classified and staged based on cause, eGFR and albuminuria (quantified as urine albumin to creatinine ratio). An eGFR >60 mL/min/1.73 m2 in the absence of increased urine albumin excretion or structural abnormaliti es does not represent CKD. eGFR CKD Interpretat ion (mL/min/1.7 3 m2) stage >=90 G1 Normal 60-89 G2 Mild decrease 45-59 G3A Mild to moderate decrease 30-44 G3B Moderate to severe decrease 15-29 G4 Severe decrease <15 G5 Kidney failure Ordering Provider: HANY KENYON Report Released Date/Time: January 06, 2025 03:36 PM Reporting Lab: [facility] [address] [address] Performing Lab: [place] [address] [facility] PANEL 1 GLUCOSE [MASS/VOLU ME] IN SERUM OR PLASMA 258 mg/dL 74 - 100 01/14 H Specimen Type: PLASMA Comment: CRITICAL CALLED TO and READ BACK BY: LAURY KENYON 01/14/25@154 1 KLP Estimated Glomerular Filtration Rate (eGFR) calculated using the 2020 Chronic Kidney Disease-Epi demiology (CKD-EPI) Collaborati on creatinine equation; units of measure are mL/min/1.73 m2. Results are only valid for adults (>=18 years) whose serum creatinine is in a steady state. eGFR calculation s are not valid for patients with acute kidney injury and for patients on dialysis. Creatinine- based estimates of kidney function may also be inaccurate in patients with reduced creatinine generation due to decreased muscle mass (e.g., malnutritio n, severe hypoalbumin emia, sarcopenia, chronic neuromuscul ar disease, amputations , severe heart failure or liver disease) and in patients with increased creatinine generation due to increased muscle mass (e.g., muscle builders, anabolic steroids) or increased dietary intake. As drug clearance is proportiona l to total GFR and not GFR indexed to body surface area (BSA), in individuals with a BSA substantial ly different than 1.73 m2, drug dosing should be based on the reported eGFR value de-indexed from BSA by multiplying by the individual' s BSA and dividing by 1.73. CKD is diagnosed based on abnormaliti es of kidney structure or function, present for >3 months, with implication s for health and disease. CKD is classified and staged based on cause, eGFR and albuminuria (quantified as urine albumin to creatinine ratio). An eGFR >60 mL/min/1.73 m2 in the absence of increased urine albumin excretion or structural abnormaliti es does not represent CKD. eGFR CKD Interpretat ion (mL/min/1.7 3 m2) stage >=90 G1 Normal 60-89 G2 Mild decrease 45-59 G3A Mild to moderate decrease 30-44 G3B Moderate to severe decrease 15-29 G4 Severe decrease <15 G5 Kidney failure Ordering Provider: HANY KENYON Report Released Date/Time: January 06, 2025 03:36 PM Reporting Lab: [facility] [address] [address] Performing Lab: [facility] [address] [address] [facility] PANEL 1 SODIUM [MOLES/VOL UME] IN SERUM OR PLASMA 138 mmol/L 136 - 145 01/14 Specimen Type: PLASMA Comment: CRITICAL CALLED TO and READ BACK BY: LAURY KENYON 01/14/25@154 1 KLP Estimated Glomerular Filtration Rate (eGFR) calculated using the 2020 Chronic Kidney Disease-Epi demiology (CKD-EPI) Collaborati on creatinine equation; units of measure are mL/min/1.73 m2. Results are only valid for adults (>=18 years) whose serum creatinine is in a steady state. eGFR calculation s are not valid for patients with acute kidney injury and for patients on dialysis. Creatinine- based estimates of kidney function may also be inaccurate in patients with reduced creatinine generation due to decreased muscle mass (e.g., malnutritio n, severe hypoalbumin emia, sarcopenia, chronic neuromuscul ar disease, amputations , severe heart failure or liver disease) and in patients with increased creatinine generation due to increased muscle mass (e.g., muscle builders, anabolic steroids) or increased dietary intake. As drug clearance is proportiona l to total GFR and not GFR indexed to body surface area (BSA), in individuals with a BSA substantial ly different than 1.73 m2, drug dosing should be based on the reported eGFR value de-indexed from BSA by multiplying by the individual' s BSA and dividing by 1.73. CKD is diagnosed based on abnormaliti es of kidney structure or function, present for >3 months, with implication s for health and disease. CKD is classified and staged based on cause, eGFR and albuminuria (quantified as urine albumin to creatinine ratio). An eGFR >60 mL/min/1.73 m2 in the absence of increased urine albumin excretion or structural abnormaliti es does not represent CKD. eGFR CKD Interpretat ion (mL/min/1.7 3 m2) stage >=90 G1 Normal 60-89 G2 Mild decrease 45-59 G3A Mild to moderate decrease 30-44 G3B Moderate to severe decrease 15-29 G4 Severe decrease <15 G5 Kidney failure Ordering Provider: HANY KENYON Report Released Date/Time: January 06, 2025 03:36 PM Reporting Lab: [facility] [address] [address] Performing Lab: J[facility] MARR[facility] [address] [address] [facility] PANEL 1 POTASSIUM [MOLES/VOL UME] IN SERUM OR PLASMA 3.6 mmol/L 3.5 - 5.1 05/14 /2025 Specimen Type: PLASMA Comment: CRITICAL CALLED TO and READ BACK BY: LAURY KENYON 01/14/25@154 1 KLP Estimated Glomerular Filtration Rate (eGFR) calculated using the 2020 Chronic Kidney Disease-Epi demiology (CKD-EPI) Collaborati on creatinine equation; units of measure are mL/min/1.73 m2. Results are only valid for adults (>=18 years) whose serum creatinine is in a steady state. eGFR calculation s are not valid for patients with acute kidney injury and for patients on dialysis. Creatinine- based estimates of kidney function may also be inaccurate in patients with reduced creatinine generation due to decreased muscle mass (e.g., malnutritio n, severe hypoalbumin emia, sarcopenia, chronic neuromuscul ar disease, amputations , severe heart failure or liver disease) and in patients with increased creatinine generation due to increased muscle mass (e.g., muscle builders, anabolic steroids) or increased dietary intake. As drug clearance is proportiona l to total GFR and not GFR indexed to body surface area (BSA), in individuals with a BSA substantial ly different than 1.73 m2, drug dosing should be based on the reported eGFR value de-indexed from BSA by multiplying by the individual' s BSA and dividing by 1.73. CKD is diagnosed based on abnormaliti es of kidney structure or function, present for >3 months, with implication s for health and disease. CKD is classified and staged based on cause, eGFR and albuminuria (quantified as urine albumin to creatinine ratio). An eGFR >60 mL/min/1.73 m2 in the absence of increased urine albumin excretion or structural abnormaliti es does not represent CKD. eGFR CKD Interpretat ion (mL/min/1.7 3 m2) stage >=90 G1 Normal 60-89 G2 Mild decrease 45-59 G3A Mild to moderate decrease 30-44 G3B Moderate to severe decrease 15-29 G4 Severe decrease <15 G5 Kidney failure Ordering Provider: HANY KENYON Report Released Date/Time: January 06, 2025 03:36 PM Reporting Lab: [facility] [address] [address] Performing Lab: JUL[facility] MARR[facility] [address] [address] [facility] PANEL 1 CHLORIDE [MOLES/VOL UME] IN SERUM OR PLASMA 87 mmol/L 98 - 107 01/14 L Specimen Type: PLASMA Comment: CRITICAL CALLED TO and READ BACK BY: LAURY KENYON 01/14/25@154 1 KLP Estimated Glomerular Filtration Rate (eGFR) calculated using the 2020 Chronic Kidney Disease-Epi demiology (CKD-EPI) Collaborati on creatinine equation; units of measure are mL/min/1.73 m2. Results are only valid for adults (>=18 years) whose serum creatinine is in a steady state. eGFR calculation s are not valid for patients with acute kidney injury and for patients on dialysis. Creatinine- based estimates of kidney function may also be inaccurate in patients with reduced creatinine generation due to decreased muscle mass (e.g., malnutritio n, severe hypoalbumin emia, sarcopenia, chronic neuromuscul ar disease, amputations , severe heart failure or liver disease) and in patients with increased creatinine generation due to increased muscle mass (e.g., muscle builders, anabolic steroids) or increased dietary intake. As drug clearance is proportiona l to total GFR and not GFR indexed to body surface area (BSA), in individuals with a BSA substantial ly different than 1.73 m2, drug dosing should be based on the reported eGFR value de-indexed from BSA by multiplying by the individual' s BSA and dividing by 1.73. CKD is diagnosed based on abnormaliti es of kidney structure or function, present for >3 months, with implication s for health and disease. CKD is classified and staged based on cause, eGFR and albuminuria (quantified as urine albumin to creatinine ratio). An eGFR >60 mL/min/1.73 m2 in the absence of increased urine albumin excretion or structural abnormaliti es does not represent CKD. eGFR CKD Interpretat ion (mL/min/1.7 3 m2) stage >=90 G1 Normal 60-89 G2 Mild decrease 45-59 G3A Mild to moderate decrease 30-44 G3B Moderate to severe decrease 15-29 G4 Severe decrease <15 G5 Kidney failure Ordering Provider: HANY KENYON Report Released Date/Time: January 06, 2025 03:36 PM Reporting Lab: [facility] [address] [address] Performing Lab: JULIAN MARR[facility] [address] [address] [facility] PANEL 1 CARBON DIOXIDE, TOTAL [MOLES/VOL UME] IN SERUM OR PLASMA 46 mmol/L 22 - 01/14 Specimen Type: PLASMA Comment: CRITICAL CALLED TO and READ BACK BY: LAURY KENYON 01/14/25@154 1 KLP Estimated Glomerular Filtration Rate (eGFR) calculated using the 2020 Chronic Kidney Disease-Epi demiology (CKD-EPI) Collaborati on creatinine equation; units of measure are mL/min/1.73 m2. Results are only valid for adults (>=18 years) whose serum creatinine is in a steady state. eGFR calculation s are not valid for patients with acute kidney injury and for patients on dialysis. Creatinine- based estimates of kidney function may also be inaccurate in patients with reduced creatinine generation due to decreased muscle mass (e.g., malnutritio n, severe hypoalbumin emia, sarcopenia, chronic neuromuscul ar disease, amputations , severe heart failure or liver disease) and in patients with increased creatinine generation due to increased muscle mass (e.g., muscle builders, anabolic steroids) or increased dietary intake. As drug clearance is proportiona l to total GFR and not GFR indexed to body surface area (BSA), in individuals with a BSA substantial ly different than 1.73 m2, drug dosing should be based on the reported eGFR value de-indexed from BSA by multiplying by the individual' s BSA and dividing by 1.73. CKD is diagnosed based on abnormaliti es of kidney structure or function, present for >3 months, with implication s for health and disease. CKD is classified and staged based on cause, eGFR and albuminuria (quantified as urine albumin to creatinine ratio). An eGFR >60 mL/min/1.73 m2 in the absence of increased urine albumin excretion or structural abnormaliti es does not represent CKD. eGFR CKD Interpretat ion (mL/min/1.7 3 m2) stage >=90 G1 Normal 60-89 G2 Mild decrease 45-59 G3A Mild to moderate decrease 30-44 G3B Moderate to severe decrease 15-29 G4 Severe decrease <15 G5 Kidney failure Ordering Provider: HANY KENYON Report Released Date/Time: January 06, 2025 03:36 PM Reporting Lab: [facility] [address] [place] [phone] Performing Lab: [facility] M[facility] [address] [place] [phone] [facility] PANEL 1 CALCIUM [MASS/VOLU ME] IN SERUM OR PLASMA 8.8 mg/dL 8.4 - 10.2 01/14 Specimen Type: PLASMA Comment: CRITICAL CALLED TO and READ BACK BY: LAURY KENYON 01/14/25@154 1 KLP Estimated Glomerular Filtration Rate (eGFR) calculated using the 2020 Chronic Kidney Disease-Epi demiology (CKD-EPI) Collaborati on creatinine equation; units of measure are mL/min/1.73 m2. Results are only valid for adults (>=18 years) whose serum creatinine is in a steady state. eGFR calculation s are not valid for patients with acute kidney injury and for patients on dialysis. Creatinine- based estimates of kidney function may also be inaccurate in patients with reduced creatinine generation due to decreased muscle mass (e.g., malnutritio n, severe hypoalbumin emia, sarcopenia, chronic neuromuscul ar disease, amputations , severe heart failure or liver disease) and in patients with increased creatinine generation due to increased muscle mass (e.g., muscle builders, anabolic steroids) or increased dietary intake. As drug clearance is proportiona l to total GFR and not GFR indexed to body surface area (BSA), in individuals with a BSA substantial ly different than 1.73 m2, drug dosing should be based on the reported eGFR value de-indexed from BSA by multiplying by the individual' s BSA and dividing by 1.73. CKD is diagnosed based on abnormaliti es of kidney structure or function, present for >3 months, with implication s for health and disease. CKD is classified and staged based on cause, eGFR and albuminuria (quantified as urine albumin to creatinine ratio). An eGFR >60 mL/min/1.73 m2 in the absence of increased urine albumin excretion or structural abnormaliti es does not represent CKD. eGFR CKD Interpretat ion (mL/min/1.7 3 m2) stage >=90 G1 Normal 60-89 G2 Mild decrease 45-59 G3A Mild to moderate decrease 30-44 G3B Moderate to severe decrease 15-29 G4 Severe decrease <15 G5 Kidney failure Ordering Provider: HANY KENYON Report Released Date/Time: January 06, 2025 03:36 PM Reporting Lab: [facility] [address] [address] Performing Lab: JUL[facility] MARR[facility] [address] [address] [facility] PANEL 1 ANION GAP 3 IN SERUM OR PLASMA 5 meq/L 3 - 19 01/14 Specimen Type: PLASMA Comment: CRITICAL CALLED TO and READ BACK BY: LAURY KENYON 01/14/25@154 1 KLP Estimated Glomerular Filtration Rate (eGFR) calculated using the 2020 Chronic Kidney Disease-Epi demiology (CKD-EPI) Collaborati on creatinine equation; units of measure are mL/min/1.73 m2. Results are only valid for adults (>=18 years) whose serum creatinine is in a steady state. eGFR calculation s are not valid for patients with acute kidney injury and for patients on dialysis. Creatinine- based estimates of kidney function may also be inaccurate in patients with reduced creatinine generation due to decreased muscle mass (e.g., malnutritio n, severe hypoalbumin emia, sarcopenia, chronic neuromuscul ar disease, amputations , severe heart failure or liver disease) and in patients with increased creatinine generation due to increased muscle mass (e.g., muscle builders, anabolic steroids) or increased dietary intake. As drug clearance is proportiona l to total GFR and not GFR indexed to body surface area (BSA), in individuals with a BSA substantial ly different than 1.73 m2, drug dosing should be based on the reported eGFR value de-indexed from BSA by multiplying by the individual' s BSA and dividing by 1.73. CKD is diagnosed based on abnormaliti es of kidney structure or function, present for >3 months, with implication s for health and disease. CKD is classified and staged based on cause, eGFR and albuminuria (quantified as urine albumin to creatinine ratio). An eGFR >60 mL/min/1.73 m2 in the absence of increased urine albumin excretion or structural abnormaliti es does not represent CKD. eGFR CKD Interpretat ion (mL/min/1.7 3 m2) stage >=90 G1 Normal 60-89 G2 Mild decrease 45-59 G3A Mild to moderate decrease 30-44 G3B Moderate to severe decrease 15-29 G4 Severe decrease <15 G5 Kidney failure Ordering Provider: HANY KENYON Report Released Date/Time: January 06, 2025 03:36 PM Reporting Lab: [facility] [address] [address] Performing Lab: JUL[facility] MARR[facility] [address] [address] [facility] PANEL 1 GLOMERULAR FILTRATION RATE/1.73 SQ M.PREDICTE D [VOLUME RATE/AREA] IN SERUM, PLASMA OR BLOOD BY CREATININE -BASED FORMULA (CKD-EPI 2020) 84 01/14 Specimen Type: PLASMA Comment: CRITICAL CALLED TO and READ BACK BY: LAURY KENYON 01/14/25@154 1 KLP Estimated Glomerular Filtration Rate (eGFR) calculated using the 2020 Chronic Kidney Disease-Epi demiology (CKD-EPI) Collaborati on creatinine equation; units of measure are mL/min/1.73 m2. Results are only valid for adults (>=18 years) whose serum creatinine is in a steady state. eGFR calculation s are not valid for patients with acute kidney injury and for patients on dialysis. Creatinine- based estimates of kidney function may also be inaccurate in patients with reduced creatinine generation due to decreased muscle mass (e.g., malnutritio n, severe hypoalbumin emia, sarcopenia, chronic neuromuscul ar disease, amputations , severe heart failure or liver disease) and in patients with increased creatinine generation due to increased muscle mass (e.g., muscle builders, anabolic steroids) or increased dietary intake. As drug clearance is proportiona l to total GFR and not GFR indexed to body surface area (BSA), in individuals with a BSA substantial ly different than 1.73 m2, drug dosing should be based on the reported eGFR value de-indexed from BSA by multiplying by the individual' s BSA and dividing by 1.73. CKD is diagnosed based on abnormaliti es of kidney structure or function, present for >3 months, with implication s for health and disease. CKD is classified and staged based on cause, eGFR and albuminuria (quantified as urine albumin to creatinine ratio). An eGFR >60 mL/min/1.73 m2 in the absence of increased urine albumin excretion or structural abnormaliti es does not represent CKD. eGFR CKD Interpretat ion (mL/min/1.7 3 m2) stage >=90 G1 Normal 60-89 G2 Mild decrease 45-59 G3A Mild to moderate decrease 30-44 G3B Moderate to severe decrease 15-29 G4 Severe decrease <15 G5 Kidney failure Ordering Provider: HANY KENYON Report Released Date/Time: January 06, 2025 03:36 PM Reporting Lab: [facility] [address] [address] Performing Lab: JULIAN MARR[facility] [address] [address] [facility] PANEL 1 CREATININE [MASS/VOLU ME] IN SERUM OR PLASMA 1.17 mg/dL 0.72 - 1.25 11/21 Specimen Type: PLASMA Comment: Estimated Glomerular Filtration Rate (eGFR) calculated using the 2020 Chronic Kidney Disease-Epi demiology (CKD-EPI) Collaborati on creatinine equation; units of measure are mL/min/1.73 m2. Results are only valid for adults (>=18 years) whose serum creatinine is in a steady state. eGFR calculation s are not valid for patients with acute kidney injury and for patients on dialysis. Creatinine- based estimates of kidney function may also be inaccurate in patients with reduced creatinine generation due to decreased muscle mass (e.g., malnutritio n, severe hypoalbumin emia, sarcopenia, chronic neuromuscul ar disease, amputations , severe heart failure or liver disease) and in patients with increased creatinine generation due to increased muscle mass (e.g., muscle builders, anabolic steroids) or increased dietary intake. As drug clearance is proportiona l to total GFR and not GFR indexed to body surface area (BSA), in individuals with a BSA substantial ly different than 1.73 m2, drug dosing should be based on the reported eGFR value de-indexed from BSA by multiplying by the individual' s BSA and dividing by 1.73. CKD is diagnosed based on abnormaliti es of kidney structure or function, present for >3 months, with implication s for health and disease. CKD is classified and staged based on cause, eGFR and albuminuria (quantified as urine albumin to creatinine ratio). An eGFR >60 mL/min/1.73 m2 in the absence of increased urine albumin excretion or structural abnormaliti es does not represent CKD. eGFR CKD Interpretat ion (mL/min/1.7 3 m2) stage >=90 G1 Normal 60-89 G2 Mild decrease 45-59 G3A Mild to moderate decrease 30-44 G3B Moderate to severe decrease 15-29 G4 Severe decrease <15 G5 Kidney failure Ordering Provider: SEFERINO DENTON Report Released Date/Time: Nov 21, 2024 12:28 PM Reporting Lab: [facility] [address] [address] Performing Lab: JULIAN MARR[facility] [address] [address] [facility] PANEL 1 UREA NITROGEN [MASS/VOLU ME] IN SERUM OR PLASMA 15 mg/dL 11/21 Specimen Type: PLASMA Comment: Estimated Glomerular Filtration Rate (eGFR) calculated using the 2020 Chronic Kidney Disease-Epi demiology (CKD-EPI) Collaborati on creatinine equation; units of measure are mL/min/1.73 m2. Results are only valid for adults (>=18 years) whose serum creatinine is in a steady state. eGFR calculation s are not valid for patients with acute kidney injury and for patients on dialysis. Creatinine- based estimates of kidney function may also be inaccurate in patients with reduced creatinine generation due to decreased muscle mass (e.g., malnutritio n, severe hypoalbumin emia, sarcopenia, chronic neuromuscul ar disease, amputations , severe heart failure or liver disease) and in patients with increased creatinine generation due to increased muscle mass (e.g., muscle builders, anabolic steroids) or increased dietary intake. As drug clearance is proportiona l to total GFR and not GFR indexed to body surface area (BSA), in individuals with a BSA substantial ly different than 1.73 m2, drug dosing should be based on the reported eGFR value de-indexed from BSA by multiplying by the individual' s BSA and dividing by 1.73. CKD is diagnosed based on abnormaliti es of kidney structure or function, present for >3 months, with implication s for health and disease. CKD is classified and staged based on cause, eGFR and albuminuria (quantified as urine albumin to creatinine ratio). An eGFR >60 mL/min/1.73 m2 in the absence of increased urine albumin excretion or structural abnormaliti es does not represent CKD. eGFR CKD Interpretat ion (mL/min/1.7 3 m2) stage >=90 G1 Normal 60-89 G2 Mild decrease 45-59 G3A Mild to moderate decrease 30-44 G3B Moderate to severe decrease 15-29 G4 Severe decrease <15 G5 Kidney failure Ordering Provider: SEFERINO DENTON Report Released Date/Time: Nov 21, 2024 12:28 PM Reporting Lab: [facility] [address] [address] Performing Lab: [facility] [address] [address] [facility] PANEL 1 GLUCOSE [MASS/VOLU ME] IN SERUM OR PLASMA 282 mg/dL 74 - 100 11/21 H Specimen Type: PLASMA Comment: Estimated Glomerular Filtration Rate (eGFR) calculated using the 2020 Chronic Kidney Disease-Epi demiology (CKD-EPI) Collaborati on creatinine equation; units of measure are mL/min/1.73 m2. Results are only valid for adults (>=18 years) whose serum creatinine is in a steady state. eGFR calculation s are not valid for patients with acute kidney injury and for patients on dialysis. Creatinine- based estimates of kidney function may also be inaccurate in patients with reduced creatinine generation due to decreased muscle mass (e.g., malnutritio n, severe hypoalbumin emia, sarcopenia, chronic neuromuscul ar disease, amputations , severe heart failure or liver disease) and in patients with increased creatinine generation due to increased muscle mass (e.g., muscle builders, anabolic steroids) or increased dietary intake. As drug clearance is proportiona l to total GFR and not GFR indexed to body surface area (BSA), in individuals with a BSA substantial ly different than 1.73 m2, drug dosing should be based on the reported eGFR value de-indexed from BSA by multiplying by the individual' s BSA and dividing by 1.73. CKD is diagnosed based on abnormaliti es of kidney structure or function, present for >3 months, with implication s for health and disease. CKD is classified and staged based on cause, eGFR and albuminuria (quantified as urine albumin to creatinine ratio). An eGFR >60 mL/min/1.73 m2 in the absence of increased urine albumin excretion or structural abnormaliti es does not represent CKD. eGFR CKD Interpretat ion (mL/min/1.7 3 m2) stage >=90 G1 Normal 60-89 G2 Mild decrease 45-59 G3A Mild to moderate decrease 30-44 G3B Moderate to severe decrease 15-29 G4 Severe decrease <15 G5 Kidney failure Ordering Provider: SEFERINO DENTON Report Released Date/Time: Nov 21, 2024 12:28 PM Reporting Lab: [facility] [address] [address] Performing Lab: [facility] [address] [address] [facility] PANEL 1 SODIUM [MOLES/VOL UME] IN SERUM OR PLASMA 133 mmol/L 136 - 145 11/21 L Specimen Type: PLASMA Comment: Estimated Glomerular Filtration Rate (eGFR) calculated using the 2020 Chronic Kidney Disease-Epi demiology (CKD-EPI) Collaborati on creatinine equation; units of measure are mL/min/1.73 m2. Results are only valid for adults (>=18 years) whose serum creatinine is in a steady state. eGFR calculation s are not valid for patients with acute kidney injury and for patients on dialysis. Creatinine- based estimates of kidney function may also be inaccurate in patients with reduced creatinine generation due to decreased muscle mass (e.g., malnutritio n, severe hypoalbumin emia, sarcopenia, chronic neuromuscul ar disease, amputations , severe heart failure or liver disease) and in patients with increased creatinine generation due to increased muscle mass (e.g., muscle builders, anabolic steroids) or increased dietary intake. As drug clearance is proportiona l to total GFR and not GFR indexed to body surface area (BSA), in individuals with a BSA substantial ly different than 1.73 m2, drug dosing should be based on the reported eGFR value de-indexed from BSA by multiplying by the individual' s BSA and dividing by 1.73. CKD is diagnosed based on abnormaliti es of kidney structure or function, present for >3 months, with implication s for health and disease. CKD is classified and staged based on cause, eGFR and albuminuria (quantified as urine albumin to creatinine ratio). An eGFR >60 mL/min/1.73 m2 in the absence of increased urine albumin excretion or structural abnormaliti es does not represent CKD. eGFR CKD Interpretat ion (mL/min/1.7 3 m2) stage >=90 G1 Normal 60-89 G2 Mild decrease 45-59 G3A Mild to moderate decrease 30-44 G3B Moderate to severe decrease 15-29 G4 Severe decrease <15 G5 Kidney failure Ordering Provider: SEFERINO DENTON Report Released Date/Time: Nov 21, 2024 12:28 PM Reporting Lab: [facility] [address] [address] Performing Lab: [facility] [address] [address] [facility] PANEL 1 POTASSIUM [MOLES/VOL UME] IN SERUM OR PLASMA 4.1 mmol/L 3.5 - 5.1 11/21 Specimen Type: PLASMA Comment: Estimated Glomerular Filtration Rate (eGFR) calculated using the 2020 Chronic Kidney Disease-Epi demiology (CKD-EPI) Collaborati on creatinine equation; units of measure are mL/min/1.73 m2. Results are only valid for adults (>=18 years) whose serum creatinine is in a steady state. eGFR calculation s are not valid for patients with acute kidney injury and for patients on dialysis. Creatinine- based estimates of kidney function may also be inaccurate in patients with reduced creatinine generation due to decreased muscle mass (e.g., malnutritio n, severe hypoalbumin emia, sarcopenia, chronic neuromuscul ar disease, amputations , severe heart failure or liver disease) and in patients with increased creatinine generation due to increased muscle mass (e.g., muscle builders, anabolic steroids) or increased dietary intake. As drug clearance is proportiona l to total GFR and not GFR indexed to body surface area (BSA), in individuals with a BSA substantial ly different than 1.73 m2, drug dosing should be based on the reported eGFR value de-indexed from BSA by multiplying by the individual' s BSA and dividing by 1.73. CKD is diagnosed based on abnormaliti es of kidney structure or function, present for >3 months, with implication s for health and disease. CKD is classified and staged based on cause, eGFR and albuminuria (quantified as urine albumin to creatinine ratio). An eGFR >60 mL/min/1.73 m2 in the absence of increased urine albumin excretion or structural abnormaliti es does not represent CKD. eGFR CKD Interpretat ion (mL/min/1.7 3 m2) stage >=90 G1 Normal 60-89 G2 Mild decrease 45-59 G3A Mild to moderate decrease 30-44 G3B Moderate to severe decrease 15-29 G4 Severe decrease <15 G5 Kidney failure Ordering Provider: SEFERINO DENTON Report Released Date/Time: Nov 21, 2024 12:28 PM Reporting Lab: [facility] [address] [address] Performing Lab: JUL[facility] M[facility] [address] [address] [facility] PANEL 1 CHLORIDE [MOLES/VOL UME] IN SERUM OR PLASMA 89 mmol/L 98 - 107 11/21 L Specimen Type: PLASMA Comment: Estimated Glomerular Filtration Rate (eGFR) calculated using the 2020 Chronic Kidney Disease-Epi demiology (CKD-EPI) Collaborati on creatinine equation; units of measure are mL/min/1.73 m2. Results are only valid for adults (>=18 years) whose serum creatinine is in a steady state. eGFR calculation s are not valid for patients with acute kidney injury and for patients on dialysis. Creatinine- based estimates of kidney function may also be inaccurate in patients with reduced creatinine generation due to decreased muscle mass (e.g., malnutritio n, severe hypoalbumin emia, sarcopenia, chronic neuromuscul ar disease, amputations , severe heart failure or liver disease) and in patients with increased creatinine generation due to increased muscle mass (e.g., muscle builders, anabolic steroids) or increased dietary intake. As drug clearance is proportiona l to total GFR and not GFR indexed to body surface area (BSA), in individuals with a BSA substantial ly different than 1.73 m2, drug dosing should be based on the reported eGFR value de-indexed from BSA by multiplying by the individual' s BSA and dividing by 1.73. CKD is diagnosed based on abnormaliti es of kidney structure or function, present for >3 months, with implication s for health and disease. CKD is classified and staged based on cause, eGFR and albuminuria (quantified as urine albumin to creatinine ratio). An eGFR >60 mL/min/1.73 m2 in the absence of increased urine albumin excretion or structural abnormaliti es does not represent CKD. eGFR CKD Interpretat ion (mL/min/1.7 3 m2) stage >=90 G1 Normal 60-89 G2 Mild decrease 45-59 G3A Mild to moderate decrease 30-44 G3B Moderate to severe decrease 15-29 G4 Severe decrease <15 G5 Kidney failure Ordering Provider: SEFERINO DENTON Report Released Date/Time: Nov 21, 2024 12:28 PM Reporting Lab: [facility] [address] [address] Performing Lab: [facility] [address] [address] [facility] PANEL 1 CARBON DIOXIDE, TOTAL [MOLES/VOL UME] IN SERUM OR PLASMA 38 mmol/L 11/21 H Specimen Type: PLASMA Comment: Estimated Glomerular Filtration Rate (eGFR) calculated using the 2020 Chronic Kidney Disease-Epi demiology (CKD-EPI) Collaborati on creatinine equation; units of measure are mL/min/1.73 m2. Results are only valid for adults (>=18 years) whose serum creatinine is in a steady state. eGFR calculation s are not valid for patients with acute kidney injury and for patients on dialysis. Creatinine- based estimates of kidney function may also be inaccurate in patients with reduced creatinine generation due to decreased muscle mass (e.g., malnutritio n, severe hypoalbumin emia, sarcopenia, chronic neuromuscul ar disease, amputations , severe heart failure or liver disease) and in patients with increased creatinine generation due to increased muscle mass (e.g., muscle builders, anabolic steroids) or increased dietary intake. As drug clearance is proportiona l to total GFR and not GFR indexed to body surface area (BSA), in individuals with a BSA substantial ly different than 1.73 m2, drug dosing should be based on the reported eGFR value de-indexed from BSA by multiplying by the individual' s BSA and dividing by 1.73. CKD is diagnosed based on abnormaliti es of kidney structure or function, present for >3 months, with implication s for health and disease. CKD is classified and staged based on cause, eGFR and albuminuria (quantified as urine albumin to creatinine ratio). An eGFR >60 mL/min/1.73 m2 in the absence of increased urine albumin excretion or structural abnormaliti es does not represent CKD. eGFR CKD Interpretat ion (mL/min/1.7 3 m2) stage >=90 G1 Normal 60-89 G2 Mild decrease 45-59 G3A Mild to moderate decrease 30-44 G3B Moderate to severe decrease 15-29 G4 Severe decrease <15 G5 Kidney failure Ordering Provider: SEFERINO DENTON Report Released Date/Time: Nov 21, 2024 12:28 PM Reporting Lab: [facility] [address] [address] Performing Lab: [facility] [address] [address] [facility] PANEL 1 CALCIUM [MASS/VOLU ME] IN SERUM OR PLASMA 9.4 mg/dL 8.4 - 10.2 11/21 Specimen Type: PLASMA Comment: Estimated Glomerular Filtration Rate (eGFR) calculated using the 2020 Chronic Kidney Disease-Epi demiology (CKD-EPI) Collaborati on creatinine equation; units of measure are mL/min/1.73 m2. Results are only valid for adults (>=18 years) whose serum creatinine is in a steady state. eGFR calculation s are not valid for patients with acute kidney injury and for patients on dialysis. Creatinine- based estimates of kidney function may also be inaccurate in patients with reduced creatinine generation due to decreased muscle mass (e.g., malnutritio n, severe hypoalbumin emia, sarcopenia, chronic neuromuscul ar disease, amputations , severe heart failure or liver disease) and in patients with increased creatinine generation due to increased muscle mass (e.g., muscle builders, anabolic steroids) or increased dietary intake. As drug clearance is proportiona l to total GFR and not GFR indexed to body surface area (BSA), in individuals with a BSA substantial ly different than 1.73 m2, drug dosing should be based on the reported eGFR value de-indexed from BSA by multiplying by the individual' s BSA and dividing by 1.73. CKD is diagnosed based on abnormaliti es of kidney structure or function, present for >3 months, with implication s for health and disease. CKD is classified and staged based on cause, eGFR and albuminuria (quantified as urine albumin to creatinine ratio). An eGFR >60 mL/min/1.73 m2 in the absence of increased urine albumin excretion or structural abnormaliti es does not represent CKD. eGFR CKD Interpretat ion (mL/min/1.7 3 m2) stage >=90 G1 Normal 60-89 G2 Mild decrease 45-59 G3A Mild to moderate decrease 30-44 G3B Moderate to severe decrease 15-29 G4 Severe decrease <15 G5 Kidney failure Ordering Provider: SEFERINO DENTON Report Released Date/Time: Nov 21, 2024 12:28 PM Reporting Lab: [place] [address] [address] Performing Lab: [place] [address] [facility] PANEL 1 ANION GAP 3 IN SERUM OR PLASMA 6 meq/L 3 - 19 11/21 Specimen Type: PLASMA Comment: Estimated Glomerular Filtration Rate (eGFR) calculated using the 2020 Chronic Kidney Disease-Epi demiology (CKD-EPI) Collaborati on creatinine equation; units of measure are mL/min/1.73 m2. Results are only valid for adults (>=18 years) whose serum creatinine is in a steady state. eGFR calculation s are not valid for patients with acute kidney injury and for patients on dialysis. Creatinine- based estimates of kidney function may also be inaccurate in patients with reduced creatinine generation due to decreased muscle mass (e.g., malnutritio n, severe hypoalbumin emia, sarcopenia, chronic neuromuscul ar disease, amputations , severe heart failure or liver disease) and in patients with increased creatinine generation due to increased muscle mass (e.g., muscle builders, anabolic steroids) or increased dietary intake. As drug clearance is proportiona l to total GFR and not GFR indexed to body surface area (BSA), in individuals with a BSA substantial ly different than 1.73 m2, drug dosing should be based on the reported eGFR value de-indexed from BSA by multiplying by the individual' s BSA and dividing by 1.73. CKD is diagnosed based on abnormaliti es of kidney structure or function, present for >3 months, with implication s for health and disease. CKD is classified and staged based on cause, eGFR and albuminuria (quantified as urine albumin to creatinine ratio). An eGFR >60 mL/min/1.73 m2 in the absence of increased urine albumin excretion or structural abnormaliti es does not represent CKD. eGFR CKD Interpretat ion (mL/min/1.7 3 m2) stage >=90 G1 Normal 60-89 G2 Mild decrease 45-59 G3A Mild to moderate decrease 30-44 G3B Moderate to severe decrease 15-29 G4 Severe decrease <15 G5 Kidney failure Ordering Provider: SEFERINO DENTON Report Released Date/Time: Nov 21, 2024 12:28 PM Reporting Lab: [facility] [address] [place] [phone] Performing Lab: JUL[facility] MARR[facility] [address] [address] [facility] PANEL 1 GLOMERULAR FILTRATION RATE/1.73 SQ M.PREDICTE D [VOLUME RATE/AREA] IN SERUM, PLASMA OR BLOOD BY CREATININE -BASED FORMULA (CKD-EPI 2020) 67 11/21 Specimen Type: PLASMA Comment: Estimated Glomerular Filtration Rate (eGFR) calculated using the 2020 Chronic Kidney Disease-Epi demiology (CKD-EPI) Collaborati on creatinine equation; units of measure are mL/min/1.73 m2. Results are only valid for adults (>=18 years) whose serum creatinine is in a steady state. eGFR calculation s are not valid for patients with acute kidney injury and for patients on dialysis. Creatinine- based estimates of kidney function may also be inaccurate in patients with reduced creatinine generation due to decreased muscle mass (e.g., malnutritio n, severe hypoalbumin emia, sarcopenia, chronic neuromuscul ar disease, amputations , severe heart failure or liver disease) and in patients with increased creatinine generation due to increased muscle mass (e.g., muscle builders, anabolic steroids) or increased dietary intake. As drug clearance is proportiona l to total GFR and not GFR indexed to body surface area (BSA), in individuals with a BSA substantial ly different than 1.73 m2, drug dosing should be based on the reported eGFR value de-indexed from BSA by multiplying by the individual' s BSA and dividing by 1.73. CKD is diagnosed based on abnormaliti es of kidney structure or function, present for >3 months, with implication s for health and disease. CKD is classified and staged based on cause, eGFR and albuminuria (quantified as urine albumin to creatinine ratio). An eGFR >60 mL/min/1.73 m2 in the absence of increased urine albumin excretion or structural abnormaliti es does not represent CKD. eGFR CKD Interpretat ion (mL/min/1.7 3 m2) stage >=90 G1 Normal 60-89 G2 Mild decrease 45-59 G3A Mild to moderate decrease 30-44 G3B Moderate to severe decrease 15-29 G4 Severe decrease <15 G5 Kidney failure Ordering Provider: SEFERINO DENTON Report Released Date/Time: Nov 21, 2024 12:28 PM Reporting Lab: [address] [address] Performing Lab: [address] [address] [facility] 25-OH VITAMIN D 25-HYDROXY VITAMIN D3 [MASS/VOLU ME] IN SERUM OR PLASMA 28.3 ng/mL 20.0 - 50.0 10/17 Specimen Type: SERUM Comment: The National Institutes of Health (NIH) recommendat ions state: <12 ng/mL - Deficient 20 - 50 ng/mL - Optimal Levels - adequate for most people. >50 ng/mL - Increased risk of hypercalciu balaji/other health problems - clinical correlation is required. These reference ranges represent clinical decision values rather than population- based reference values. Ordering Provider: HANY KENYON Report Released Date/Time: Oct 15, 2024 04:37 PM Reporting Lab: [address] [address] Performing Lab: [address] [address] [facility] BNP (WOODS) NATRIURETI C PEPTIDE B [MASS/VOLU ME] IN SERUM OR PLASMA 101 pg/mL 0 - 100 10/17 H Specimen Type: PLASMA Comment: BNP results less than or equal to 100 pg/ml are representat go of normal values in patients without CHF. BNP results greater than 100 pg/ml are considered abnormal and suggestive of CHF. Higher BNP concentrati ons in the first 72 hours after Acute Coronary Syndrome are associated with an increased risk of , myocardial infarction and CHF. Ordering Provider: HANY KENYON Report Released Date/Time: Oct 15, 2024 04:37 PM Reporting Lab: [address] [address] Performing Lab: [address] [address] [facility] GLYCOHEM OGLOBIN HEMOGLOBIN A1C/HEMOGL OBIN.TOTAL IN BLOOD BY HPLC 7.3 4.4 - 5.6 10/17 H Specimen Type: BLOOD Comment: [facility] guidelines for A1c interpretat ion: Glycemic control targets are based on Shared Decision Making between clinicians and patients. Criteria used to establish an A1c target recommendat ion can be found at https://www .[place].gov/shira lityandpati entsafety/ and include the use of result accuracy and precision(C V) of the A1c tests clinicians utilize at their own sites of practice. Values obtained from A1C measurement s can vary. For typical A1C assays, a reported value of 7.0 could actually be between 6.72 and 7.28 if measured by a reference method. A reported value of 9.0 could actually be between 8.73 and 9.27. Ref: https://ngs p.org/CAPda ta.asp. The in-house aitainment-[employer] D-100 analyzer has a historical CV <= 2%. Contact the laboratory for further performance characteris tics of this assay. Ordering Provider: HANY KENYON Report Released Date/Time: Oct 15, 2024 04:37 PM Reporting Lab: [address] [address] Performing Lab: [address] [address] [facility] CD4/CD8 RATIO PROFILE CD3+CD4+ (T4 HELPER) CELLS/100 CELLS IN BLOOD 29.9 30.8 - 58.5 10/14 L Specimen Type: BLOOD No comment entered. Ordering Provider: KARTIK FLANAGAN Report Released Date/Time: Oct 14, 2024 10:21 AM Reporting Lab: [place] [id number] Performing Lab: [address] CD4/CD8 RATIO PROFILE CD3+CD8+ (T8 SUPPRESSOR ) CELLS/100 CELLS IN BLOOD 37.8 12.0 - 35.5 10/14 H Specimen Type: BLOOD No comment entered. Ordering Provider: KARTIK FLANAGAN Report Released Date/Time: Oct 14, 2024 10:21 AM Reporting Lab: [address] [address] Performing Lab: [address] CD4/CD8 RATIO PROFILE CD3+CD4+ (T4 HELPER) CELLS/CD3+ CD8+ (T8 SUPPRESSOR CELLS) CELLS [# RATIO] IN BLOOD 0.79 0.92 - 3.72 10/14 L Specimen Type: BLOOD No comment entered. Ordering Provider: KARTIK FLANAGAN Report Released Date/Time: Oct 14, 2024 10:21 AM Reporting Lab: [place] [id number] Performing Lab: [address] CD4/CD8 RATIO PROFILE CD3+CD4+ (T4 HELPER) CELLS [#/VOLUME] IN BLOOD 299 /uL 359 - 1519 10/14 L Specimen Type: BLOOD No comment entered. Ordering Provider: KARTIK FLANAGAN Report Released Date/Time: Oct 14, 2024 10:21 AM Reporting Lab: [address] [address] Performing Lab: [address] CD4/CD8 RATIO PROFILE CD3+CD8+ (T8 SUPPRESSOR ) CELLS [#/VOLUME] IN BLOOD 378 /uL 109 - 897 10/14 Specimen Type: BLOOD No comment entered. Ordering Provider: PANCHITO,KARTIK LAS O Report Released Date/Time: Oct 14, 2024 10:21 AM Reporting Lab: [facility] [address] [address] Performing Lab: [facility] [address] [facility] [address] [facility] HIV-1 VIRAL LOAD (PCR) HIV 1 RNA [#/VOLUME] (VIRAL LOAD) IN SERUM OR PLASMA BY ANTONIO WITH PROBE DETECTION Not Detected 10/14 Specimen Type: PLASMA Comment: HIV-1 RNA RT-PCR (HIV-1 VIRAL LOAD (PCR)) assay is performed by the [facility] This test does not rule out the presence of HIV-1 at less than 20 copies/mL. Quantitativ e range is 20 (1.30 Log (Copies/mL) ) - 10,000,000 (7.00 Log (Copies/mL) ) copies/mL. This test should only be used for patients with documented HIV-1infect ion. The [facility] has verified the performance characteris tics of this test. This test is FDA approved. Ordering Provider: KARTIK FLANAGAN Report Released Date/Time: Oct 14, 2024 10:21 AM Reporting Lab: [facility] [address] [address] Performing Lab: [address] [address] [facility] Vital Signs Combined list of inpatient and outpatient Vital Signs from Department of Defense and Veterans Affairs, ranging from 12 months to all on record, depending upon the facility. Vital Sign Value Date Comments Source SYSTOLIC BLOOD PRESSURE 120 03/26/2025 13:00:00 [facility] DIASTOLIC BLOOD PRESSURE 66 03/26/2025 13:00:00 [facility] PAIN 5 03/26/2025 13:00:00 [facility] TEMPERATURE 98.2 03/26/2025 13:00[facility] 88 03/26/2025 13:00:00 [facility] RESPIRATION 16 03/26/2025 13:00[facility] SYSTOL[facility]ESSURE 128 01/15/2025 10:15:00 [facility] DIASTOLIC BLOOD PRESSURE 68 01/15/2025 10:15:00 [facility] PAIN 3 01/15/2025 10:15:00 [place] [facility] TEMPERATURE 98.2 01/15/2025 10:15:00 [facility] PULSE 72 01/15/2025 10:15:00 [place] [facility] RESPIRATION 20 01/15/2025 10:15:00 [facility] [facility] SYSTOLIC BLOOD PRESSURE 122 01/14/2025 11:50:00 [place] [facility] DIASTOLIC BLOOD PRESSURE 68 01/14/2025 11:50:00 [place] [facility] PAIN 5 01/14/2025 11:50:00 [place] [facility] TEMPERATURE 98.6 01/14/2025 11:50:00 [place] [facility] PULSE 80 01/14/2025 11:50:00 [place] [facility] RESPIRATION 18 01/14/2025 11:50:00 [place] [facility] SYSTOLIC BLOOD PRESSURE 99 01/06/2025 10:29:09 [place] [facility] DIASTOLIC BLOOD PRESSURE 58 01/06/2025 10:29:09 [place] [facility] PULSE OXIMETRY 92 01/06/2025 10:29:09 [place] [facility] PAIN 4 01/06/2025 10:29:09 [place] [facility] TEMPERATURE 97.8 01/06/2025 10:29:09 [place] N[place] [facility] PULSE 87 01/06/2025 10:29:09 [place] [facility] SYSTOLIC BLOOD PRESSURE 130 12/31/2024 11:40:00 [place] [facility] DIASTOLIC BLOOD PRESSURE 68 12/31/2024 11:40:00 [place] [facility] PAIN 0 12/31/2024 11:40:00 [place] [facility] TEMPERATURE 98.3 12/31/2024 11:40:00 [place] N[place] [facility] PULSE 88 12/31/2024 11:40:00 TAWNY SERRANO [facility] RESPIRATION 16 12/31/2024 11:40:00 [place] GALLEGOS [facility] Encounters Combined list of: 1) Encounters from Department of [facility] Affairs facilities going backup to the last 18 months, not all [place] inpatient encounters are included; 2) Encounters from the Department of Defense facilities going backup to 280 months. 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 Velasco 10/03 [place] [facility] Outpatient Encounter [id number] 10/03 [place] [facility] Outpatient Encounter [id number] 72 10/03 [place] [facility] QNHP OL DIG ASSMT&MGMT 21+ [id number] [id number] Diagnos is: ICD-10- CM M54.2 Cervica JENNIFER Weeks 10/04 [place] [facility] Outpatient Encounter [id number] 10/04 [place] [facility] HC PRO PHONE CALL 5-10 MIN [id number] Diagnos is: ICD-10- CM 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 10/04 [place] [facility] Outpatient Encounter [id number] 10/11 [place] [facility] Outpatient Encounter [id number] 00 10/25 [place] [facility] Outpatient Encounter [id number] 10/26 [place] [facility] MEASURE BLOOD OXYGEN LEVEL 65128-3.59 [id number] Diagnos is: ICD-10- CM J96.11 Chronic respira tory failure with hypoxia LOUIEAshwinSWATHI SCOTT 11/04 [place] [facility] OFFICE O/P EST MOD 30 MIN [id number] Diagnos is: ICD-10- CM E66.01 Morbid (severe ) obesity due to excess calorie Hetal Hay A 11/14 [place] [facility] EMERGENCY DEPT VISIT MOD MDM 30675-8.59 [id number] 66 Diagnos is: ICD-10- CM M54.16 Radicul opathy, lumbar region ANDREW ARMENTA ICA 11/14 [place] [facility] ELECTROCAR DIOGRAM COMPLETE 60255-0.59 [id number] 55 Diagnos is: ICD-10- CM I10 Essenti al (primar y) hyperte ROSIO Ferreira A 11/15 [place] [facility] Outpatient Encounter [id number] 11/15 [place] [facility] HC PRO PHONE CALL 11-20 MIN [id number] [id number] Diagnos is: ICD-10- CM M54.2 Cervica jadonia MELISA JOE 11/15 [place] [facility] HC PRO PHONE CALL 5-10 MIN [id number] Diagnos is: ICD-10- CM 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 03/20 /2024 [place] [facility] Outpatient Encounter [id number] 11/20 [place] [facility] [place] [facility] Outpatient Encounter [id number] 20 11/21 [place] [facility] Outpatient Encounter [id number] 11/29 [place] [facility] Outpatient Encounter [id number] 34 12/03 [place] [facility] En[facility] [id number] 12/04 [place] [facility] Outpatient Encounter [id number] 12/05 [place] [facility] [place] [facility] Outpatient Encounter [id number] 12/05 [place] [facility] Encounter [id number] [id number] 12/05 [place] [facility] [place] [facility] Outpatient Encounter [id number] 12/05 [place] [facility] Outpatient Encounter [id number] 12/09 [place] [facility] Outpatient Encounter [id number] 12/12 [place] [facility] Outpatient Encounter [id number] [id number] 12/13 [place] [facility] Outpatient Encounter [id number] 12/13 [place] [facility] Outpatient Encounter [id number] [id number] 12/19 [place] [facility] Outpatient Encounter [id number] [id number] 12/23 [place] [facility] Outpatient Encounter [id number] [id number] 98 12/23 [place] [facility] Outpatient Encounter [id number] [id number] 01 12/27 [place] [facility] Outpatient Encounter [id number] [id number] 12/27 [place] [facility] Outpatient Encounter [id number] [id number] 01/03 [place] [facility] Outpatient Encounter [id number] [id number] 02/04 [place] [facility] Outpatient Encounter [id number] [id number] 02/04 [place] [facility] CONT GLUC MNTR PT PROV EQP [id number] [id number] Diagnos is: ICD-10- CM E11.65 Type 2 diabete s mellitu s with hypergl ycemia VANNESSA CHILDRESS 02/07 [place] [facility] OFFICE O/P EST MOD 30 MIN [id number] [id number] Diagnos is: ICD-10- CM E11.65 Type 2 diabete s mellitu s with hypergl ycemia MARLINE DENTON 02/07 [place] [facility] OFFICE O/P EST MOD 30 MIN 50042-7.59 [id number] Diagnos is: ICD-10- CM 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 KRISTINA ROY S 02/18 [place] [facility] SELF-MGMT EDUC/TRAIN 5-8 [place] [id number] [id number] Diagnos is: ICD-10- CM E11.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, r eye BORDERS,BE THANY S 02/25 [place] [facility] Outpatient Encounter [id number] [id number] 03/04 [place] [facility] Outpatient Encounter [id number] [id number] 39 03/15 [place] [facility] Outpatient Encounter [id number] [id number] 03/24 [place] [facility] Outpatient Encounter [id number] [id number] 04/07 [place] [facility] Outpatient Encounter [id number] [id number] 04/07 [place] [facility] Outpatient Encounter [id number] [id number] 99 04/08 [place] [facility] Outpatient Encounter [id number] [id number] 66 04/09 [place] [facility] Outpatient Encounter [id number] [id number] 04/17 [place] [facility] Outpatient Encounter [id number] [id number] 05/21 [place] [facility] Outpatient Encounter [id number] [id number] 05/21 [place] [facility] Outpatient Encounter [id number] [id number] 05/30 [place] [facility] HC PRO PHONE CALL 5-10 MIN [id number] [id number] Diagnos is: ICD-10- CM 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 05/30 [place] [facility] Outpatient Encounter [id number] [id number] 30 06/02 [place] Out[facility] Encounter [id number] [id number] 06/02 [place] [facility] Outpatient Encounter [id number] [id number] 06/17 [place] [facility] Outpatient Encounter [id number] [id number] 06/23 [place] [facility] O/P EST HI 40 MIN [id number] [id number] Diagnos is: ICD-10- CM M79.622 Pain in left upper arm FLAREY,ANT RAGHAVENDRA BARBERY 06/23 [place] [facility] OFFICE O/P EST HI 40 MIN 54515-6.59 [id number] Diagnos is: ICD-10- CM M79.622 Pain in left upper arm FLAREY,ANT RAGHAVENDRA BARBERY 06/23 [place] Outpatient Encounter [id number] [id number] 06/24 [place] [facility] Outpatient Encounter [id number] [id number] 07/02 [place] [facility] Outpatient Encounter [id number] [id number] 07/15 [place] [facility] En[facility] [id number] [id number] 07/17 [place] [facility] Outpatient Encounter [id number] [id number] 07/25 [place] [facility] Outpatient Encounter [id number] [id number] 07/26 [place] [facility] Outpatient Encounter [id number] [id number] 07/29 [place] [facility] Outpatient Encounter [id number] [id number] 07/29 [place] [facility] HC PRO PHONE CALL 5-10 MIN [id number] [id number] Diagnos is: ICD-10- CM 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 HEATHMELISA Thompson Thompson 07/29 [place] [facility] Outpatient Encounter [id number] 08/11 [place] [facility] HC PRO PHONE CALL 5-10 MIN [id number] [id number] Diagnos is: ICD-10- CM M54.2 Cervica lgia JOEMELISA Thompson Thompson 08/13 [place] [facility] Outpatient Encounter [id number] [id number] Diagnos is: ICD-10- CM J44.9 Chronic obstruc tive pulmona ry disease , unspeci KOBY Oliveira 08/14 [place] [facility] MTCT BY PHARM ADDL 15 MIN [id number] [id number] Diagnos is: ICD-10- CM G89.29 Other chronic pain JENNIFER MAYNARD 08/15 [place] [facility] MTMS BY PHARM ADDL 15 MIN [id number] [id number] Diagnos is: ICD-10- CM G89.29 Other chronic pain JENNIFER MAYNARD 08/18 [place] [facility] Outpatient Encounter [id number] [id number] 08/19 [place] [facility] HC PRO PHONE CALL 5-10 MIN [id number] [id number] Diagnos is: ICD-10- CM 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 MELISA JOE A 08/25 [place] [facility] Outpatient Encounter [id number] 08/29 [place] [facility] Outpatient Encounter [id number] [id number] 08/29 [place] [facility] MTMS BY PHARM ADDL 15 MIN [id number] [id number] Diagnos is: ICD-10- CM G89.29 Other chronic pain JENNIFER MAYNARD 09/01 [place] [facility] HC PRO PHONE CALL 11-20 MIN [id number] [id number] Diagnos is: ICD-10- CM 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 MICHAEL GALLEGOS 09/02 [place] [facility] Outpatient Encounter [id number] 09/04 [place] [facility] Outpatient Encounter [id number] [id number] 09[facility]04 [place] [facility] [id number] [id number] 09/08 [place] [facility] [id number] [id number] 09/10 [place] [facility] Outpatient Encounter [id number] [id number] Diagnos is: ICD-10- CM J44.9 Chronic obstruc tive pulmona ry disease , unspeci fied CHANTALE,DANIEL GINIA K 09/10 [place] [facility] HHS/HOSPIC E OF RN EA 15 MIN [id number] [id number] Diagnos is: ICD-10- CM J44.9 Chronic obstruc tive pulmona ry disease , unspeci fied DOTTIE,Adela DITH F 09/10 [place] [facility] Outpatient Encounter [id number] 09/12 [place] [facility] Outpatient Encounter [id number] [id number] 09/12 [place] [facility] Outpatient Encounter [id number] [id number] 09/17 [place] [facility] NQHP OL DIG ASSMT&MGMT 21+ [id number] [id number] 77 Diagnos is: ICD-10- CM Z79.899 Other residential (curren t) drug therapy DONA FREEMAN 09/23 [place] [facility] MTMS BY PHARM ADDL 15 MIN [id number] [id number] Diagnos is: ICD-10- CM G89.29 Other chronic pain JENNIFER MAYNARD 09/25 [place] [facility] Outpatient Encounter [id number] [id number] 09/26 [place] [facility] Outpatient Encounter [id number] [id number] STACYNASIR Ashford 09/29 [place] [facility] Outpatient Encounter [id number] [id number] 51 09/29 [place] [facility] Outpatient Encounter [id number] [id number] 09/29 [place] [facility] PH1 ASSMT&MGMT NQHP 11-20 [id number] [id number] Diagnos is: ICD-10- CM Z74.1 Need for assista nce with persona l suzi NASIR DIXON 09/29 [place] [facility] Outpatient Encounter [id number] [id number] Diagnos is: ICD-10- CM J96.11 Chronic respira tory failure with hypoxia SOMERS,ALIS SSA 09/30 [place] [facility] Outpatient Encounter [id number] [id number] 42 09/30 [place] [facility] HHCP-SERV OF PT,EA 15 MIN 92939-6.59 [id number] 76 Diagnos is: ICD-10- CM I10 Essenti al (primar y) hyperte nsion BENDER,S TEVEN A 10/01 [place] [facility] [place] [id number] [id number] Diagnos is: ICD-10- CM E11.8 Type 2 diabete s mellitu s with unspeci fied complic ations CONRADO WELLS 10/01 [place] [facility] ELECTROCAR DIOGRAM COMPLETE 41382-4.59 [id number] 42 Diagnos is: ICD-10- CM I10 Essenti al (primar y) hyperte jozefion ROSIO RITCHIE IG A 10/02 [place] [facility] NQHP OL DIG ASSMT&MGMT 11-20 67589-9.59 [id number] 18 Diagnos is: ICD-10- CM Z79.899 Other residential (curren t) drug therapy PETEDONA Fong 10/03 [place] [facility] Outpatient Encounter [id number] [id number] 10/06 [place] [facility] OFF/OP CNSLTJ NEW/EST MOD 40 51340-7.59 [id number] 91 Diagnos is: ICD-10- CM I48.0 Paroxys mal atrial fibrill ation GAUDENCIO LOW H 10/06 [place] [facility] Outpatient Encounter [id number] [id number] 10/07 [place] [facility] Outpatient Encounter [id number] [id number] 10/07 [place] [facility] BRIEF COMUNICAJ TECH-BSD SVC [id number] [id number] 20 Diagnos is: ICD-10- CM 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.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, subcu followi ng other procedu re DANIEL KENYON 10/10 [place] [facility] OFFICE O/P EST MOD 30 MIN [id number] [id number] Diagnos is: ICD-10- CM 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 KRISTINA ROY S 10/14 [place] [facility] Outpatient Encounter [id number] [id number] 64 10/14 [place] [facility] MEASURE BLOOD OXYGEN LEVEL 95932-9.59 [id number] Diagnos is: ICD-10- CM J44.9 Chronic obstruc tive pulmona ry disease , unspeci fied SWATHI PRO 10/14 [place] [facility] Outpatient Encounter [id number] [id number] 10/15 [facility] IMMUNIZATI ON ADMIN 04728-8.59 [id number] 77 Diagnos is: ICD-10- CM J44.9 Chronic obstruc tive pulmona ry disease , unspeci fied SINCLAIR,E DITH F 10/15 [place] [facility] PH1 ASSMT&MGMT NQHP 5-10 [id number] [id number] Diagnos is: ICD-10- CM J44.9 Chronic obstruc tive pulmona ry disease , unspeci fied SINCLAIR,E DITH F 10/15 [place] [facility] COMPRE OPH EXAM EST PT 1/ 76790-4.59 [id number] Diagnos is: ICD-10- CM E11.9 Type 2 diabete s mellitu s without complic ations REYNALDO RAMIREZ K 10/17 [place] [facility] PH1 ASSMT&MGMT NQHP 5-10 20203-5.59 [id number] 50 Diagnos is: ICD-10- CM J44.9 Chronic obstruc tive pulmona ry disease , unspeci fied SINCLAIR,E DITH F 10/21 [place] [facility] Outpatient Encounter [id number] [id number] 18 10/21 [place] [facility] PH1 ASSMT&MGMT NQHP 5-10 00038-3.59 [id number] 46 Diagnos is: ICD-10- CM J44.9 Chronic obstruc tive pulmona ry disease , unspeci fied GUSTAVOERLY,CA NDACE L 10/21 [place] [facility] HHS/HOSPIC E OF RN EA 15 MIN 01841-4.59 [id number] 50 Diagnos is: ICD-10- CM J44.9 Chronic obstruc tive pulmona ry disease , unspeci fied SINCLAIR,E DITH F 10/23 [place] [facility] Outpatient Encounter [id number] [id number] 10/30 [place] [facility] A[facility]-ONLY EST SF 10 94352-7.59 [id number] 75 Diagnos is: ICD-10- CM Z86.31 Persona l history of diabeti c foot ulcer DANIEL KENYON 11/03 [place] [facility] Outpatient Encounter 41657-6.59 [id number] Diagnos is: ICD-10- CM I48.19 Other persist ent atrial fibrill ation DANIEL KENYON 11/03 [place] [facility] HHS/HOSPIC E OF RN EA 15 MIN 77712-3.59 [id number] 56 Diagnos is: ICD-10- CM J44.9 Chronic obstruc tive pulmona ry disease , unspeci fied DOTTIE,E DITH F 11/03 [place] [facility] Outpatient Encounter [id number] [id number] 74 11/03 [place] [facility] Outpatient Encounter [id number] [id number] 11/03 [place] [facility] PH1 ASSMT&MGMT NQHP 5-10 67109-8.59 [id number] 85 Diagnos is: ICD-10- CM J44.9 Chronic obstruc tive pulmona ry disease , unspeci fied SINCLAIR,E DITH F 11/06 [place] [facility] Outpatient Encounter [id number] [id number] 65 11/11 [place] [facility] ELECTROCAR DIOGRAM COMPLETE 80656-1.59 [id number] 27 Diagnos is: ICD-10- CM I10 Essenti al (primar y) hyperte nsROSIO Nelson IG A 11/11 [place] [facility] Outpatient Encounter [id number] [id number] 58 11/14 [place] [facility] Outpatient Encounter [id number] [id number] 11/14 [place] [facility] Outpatient Encounter [id number] [id number] 11/17 [place] [facility] Outpatient Encounter [id number] [id number] 11/19 [place] [facility] Outpatient Encounter [id number] [id number] 11/20 [place] [facility] OFFICE O/P EST HI 40 MIN 35305-6.59 [id number] 10 Diagnos is: ICD-10- CM I48.0 Paroxys mal atrial fibrill ation KOKO LUDWIG IK 11/21 [place] [facility] OFFICE O/P EST HI 40 MIN 24879-2.59 [id number] 05 Diagnos is: ICD-10- CM E11.65 Type 2 diabete s mellitu s with hypergl ycemia MARLINE DENTON 11/21 [place] [facility] PH1 ASSMT&MGMT NQHP 5-10 77071-3.59 [id number] 26 Diagnos is: ICD-10- CM E11.9 Type 2 diabete s mellitu s without complic ations Adela SINCLAIR 11/21 [place] [facility] Outpatient Encounter 93097-3.59 [id number] 97 11/25 [place] [facility] Outpatient Encounter [id number] 11/27 [place] [facility] NQHP OL DIG ASSMT&MGMT 21+ 98755-7.59 [id number] 04 Diagnos is: ICD-10- CM Z79.899 Other residential (curren t) drug therapy PETEDONA I L 11/28 [place] [facility] Outpatient Encounter [id number] 12/01 [place] [facility] NQHP OL DIG ASSMT&MGMT 21+ [id number] [id number] 27 Diagnos is: ICD-10- CM 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.01 long term care social worker (curren t) use of anticoa gulants FRANCIA,AND REW L 12/01 [place] Outpatient Encounter [id number] 44 12/02 [place] [facility] Outpatient Encounter [id number] Diagnos is: ICD-10- CM Z91.81 History of falling CORY,SUBI R K 12/02 [place] [facility] HHS/HOSPIC E OF RN EA 15 MIN [id number] 40 Diagnos is: ICD-10- CM J44.9 Chronic obstruc tive pulmona ry disease , unspeci fied Adela SINCLAIR 12/02 [place] [facility] PH1 ASSMT&MGMT NQHP 5-10 [id number] [id number] 99 Diagnos is: ICD-10- CM I50.32 Chronic diastol ic (conges tive) heart failure Adela SINCLAIR 12/03 [place] PH1 ASSMT&MGMT NQHP 5-10 [id number] [id number] 40 Diagnos is: ICD-10- CM J44.9 Chronic obstruc tive pulmona ry disease , unspeci fied DOTTIE,E DITH F 12/08 [place] [facility] OFFICE O/P NEW HI 60 MIN [id number] Diagnos is: ICD-10- CM E11.40 Type 2 diabete s mellitu s with diabeti c neuropa thy, unsp MONTELONGO,AL ISA 12/11 [place] [facility] Outpatient Encounter [id number] 98 12/12 [place] Outpatient Encounter [id number] 12/16 [place] [facility] HHS/HOSPIC E OF RN EA 15 MIN 00528-6.59 [id number] 23 Diagnos is: ICD-10- CM J44.9 Chronic obstruc tive pulmona ry disease , unspeci fied DOTTIE,E DITH F 12/31 [place] [facility] Outpatient Encounter [id number] 01/05 [place] [facility] WHEELCHAIR MNGMENT TRAINING [id number] Diagnos is: ICD-10- CM I50.32 Chronic diastol ic (conges tive) heart failure FRANCO MARKS 01/06 [place] [facility] OFFICE O/P NEW MOD 45 MIN [id number] 30 Diagnos is: ICD-10- CM E11.40 Type 2 diabete s mellitu s with diabeti c neuropa thy, unsp MONTELONGO,AL EXANDER 01/06 [place] [facility] PH1 ASSMT&MGMT NQHP 5-10 98802-9.59 [id number] 51 Diagnos is: ICD-10- CM G89.4 Chronic pain syndrom e DOTTIE,E DITH F 01/08 [place] [facility] Outpatient Encounter [id number] 01/09 [place] [facility] En[facility] [id number] 75 01/12 [place] Outpatient Encounter [id number] 68 01/12 [place] [facility] En[facility] [id number] 78 01/12 [place] CASE MANAGEMENT [id number] [id number] 65 Diagnos is: ICD-10- CM Z65.9 Problem related to unspeci fied psychos ocial circums CAPRICE Negrete NNIE D 01/12 [place] [facility]IG ASSMT&MGMT 11-20 [id number] [id number] 82 Diagnos is: ICD-10- CM Z79.899 Other residential (curren t) drug therapy DONA FREEMAN 01/13 [place] [facility] [place] [id number] [id number] Diagnos is: ICD-10- CM J44.9 Chronic obstruc tive pulmona ry disease , unspeci fied SINCLAIR,E DITH F 01/14 [place] [facility] RN EA 15 MIN [id number] [id number] 35 Diagnos is: ICD-10- CM G89.4 Chronic pain syndrom e SINCLAIR,E DITH F 01/15 [place] [facility] Outpatient Encounter [id number] 01/15 [place] [facility] HHCP-SERV OF PT,EA 15 MIN [id number] Diagnos is: ICD-10- CM J44.9 Chronic obstruc tive pulmona ry disease , unspeci fied BENDER,S TEVEN A 01/16 [place] [facility] Outpatient Encounter [id number] 01/27 [place] [facility] MTMS BY PHARM ADDL 15 MIN [id number] Diagnos is: ICD-10- CM G89.4 Chronic pain syndrom e LC PENG 02/06 [place] [facility] Outpatient Encounter [id number] 02/09 [place] [facility] Outpatient Encounter [id number] 02/10 [place] [facility] PH1 ASSMT&MGMT NQHP 5-10 [id number] Diagnos is: ICD-10- CM G89.4 Chronic pain syndrom e SINCLAIR,E DITH F 02/10 [place] [facility] PH1 ASSMT&MGMT NQHP 5-10 [id number] Diagnos is: ICD-10- CM G89.4 Chronic pain syndrom e SINCLAIR,E DITH F 02/12 [place] [facility] Outpatient Encounter [id number] 02/13 [place] [facility] Outpatient Encounter [id number] 02/18 [place] [facility] HHS/HOSPIC E OF RN AMENA 15 MIN [id number] Diagnos is: ICD-10- CM I50.32 Chronic diastol ic (conges tive) heart failure Adela SINCLAIR 02/18 [place] [facility] Outpatient Encounter [id number] 02/20 [place] [facility] Outpatient Encounter [id number] 02/20 [place] [facility] NQHP OL DIG ASSMT&MGMT 21+ [id number] Diagnos is: ICD-10- CM Z79.899 Other technician terminal and repeater (curren t) drug therapy DONA FREEMAN I L 02/22 [place] [facility] Outpatient Encounter [id number] 02/24 [place] [facility] Outpatient Encounter [id number] Diagnos is: ICD-10- CM I48.91 Unspeci fied atrial fibrill ation ALIS SOMERS SSA 02/24 [place] [facility] Outpatient Encounter [id number] 03/03 [place] [facility] Outpatient Encounter [id number] 03/04 [place] [facility] Outpatient Encounter [id number] 03/05 [place] [facility] Outpatient Encounter [id number] 03/15 [place] [facility] Outpatient Encounter [id number] 03/17 [place] [facility] PH1 ASSMT&MGMT NQHP 5-10 [id number] Diagnos is: ICD-10- CM G89.4 Chronic pain syndrom e SINCLAIR,E DITH F 03/17 [place] [facility] Outpatient Encounter [id number] 03/17 [place] [facility] PH[facility] ASSMT&MGMT NQHP 5-10 [id number] Diagnos is: ICD-10- CM G89.4 Chronic pain syndrom e SINCLAIR,E DITH F 03/20 [place] [facility] PH1 ASSMT&MGMT NQHP 5-10 [id number] Diagnos is: ICD-10- CM J44.9 Chronic obstruc tive pulmona ry disease , unspeci fied SINCLAIR,E DITH F 03/24 [place] [facility] HHS/HOSPIC E OF RN EA 15 MIN [id number] Diagnos is: ICD-10- CM J44.9 Chronic obstruc tive pulmona ry disease , unspeci fied SINCLAIR,E DITH F 03/26 [place] [facility] Social History Combined list of available smoking, tobacco, and other social history from Department of Defense and Veterans Affairs facilities. Social History Type Response [facility] NHIS VA-TOBACCO NEVER USED 09/06/2023 [facility] History of tobacco use MI-TOBACCO NEVER USED 06/20/2022 [facility] History of tobacco use MI-TOBACCO NEVER USED 07/27/2020 [facility] History of tobacco use MI-TOBACCO NEVER USED 07/19/2018 [facility] History of tobacco use V9 LIFETIME NON-USER OF TOBACCO 03/18/2018 [facility] History of tobacco use V9 LIFETIME NON-USER OF TOBACCO 03/29/2017 [facility] History of tobacco use NON-TOBACCO USE INPATIENT 05/05/2016 [facility] History of tobacco use V9 LIFETIME NON-USER OF TOBACCO 04/27/2016 [facility] History of tobacco use NON-TOBACCO USE INPATIENT 11/24/2015 [facility] History of tobacco use V9 LIFETIME NON-USER OF TOBACCO 05/27/2015 [facility] History of tobacco use NON-TOBACCO USE INPATIENT 10/01/2014 [facility] History of tobacco use V9 LIFETIME NON-USER OF TOBACCO 06/29/2014 [facility] History of tobacco use V9 LIFETIME NON-USER OF TOBACCO 02/10/2013 [facility] History of tobacco use V9 LIFETIME NON-USER OF TOBACCO 03/19/2012 [facility] History of tobacco use V9 LIFETIME NON-USER OF TOBACCO 12/13/2010 [facility] History of tobacco use V9 LIFETIME NON-USER OF TOBACCO 08/13/2006 [facility] History of tobacco use HF V9 LIFETIME NON-SMOKER 04/24/2006 [facility] History of tobacco use HF V9 LIFETIME NON-SMOKER 04/10/2005 [facility] History of tobacco use HF V9 LIFETIME NON-SMOKER 11/24/2003 [facility] History of tobacco use HF V9 LIFETIME NON-SMOKER 10/07/2002 [facility] Plan of Care List of future care activities from [facility] facilities. Additional future care activities may be listed in the Assessment and Plan section. Date/Time Care Activity Care Activity Detail Facili ty 04/14/2025 AMBULATORY - MEDICINE AMBULATORY - MEDICI NE [facility] Advance Directives List of completed, amended, or rescinded Advance Directives on record at [facility] facilities. An actual copy of the Directive is not included. Date Advance Directive Provider Source 09/25/2024 ADVANCE DIRECTIVE DISCUSSION MARIA FERNANDA,CONN IE D [place] [facility]
--- OUTSIDE RECORDS SUMMARY | 2025-03-26 15:38 | XMS_ITS | Encounter Summary ---
Author Name [facility] [place] [facility] [place] Address [address] [place] [address] Care Team Providers Care Public Relations Officer Name Role Phone LAURY KENYON Primary [...] [employer] Jun 03, 2017 [id number] ROXI WINKLER PATIENT [employer] [facility] (WNR) MEDICARE ADVANTAGE [facility] (WNR) Sep 03, 2019 [id number] [phone] ROXI WINKLER JR PATIENT [employer] [facility] (WNR) MEDICARE ADVANTAGE [facility] (WNR) Sep 03, 2019 [id number] ROXI WINKLER MCR (WNR) MEDICARE ADVANTAGE HUMAN A INSUR ANCE COM Apr 04, 2019 [id number] ROXI WINKLERA MCR (WNR) MEDICARE ADVANTAGE MCR (WNR) Apr 03, 2019 [id number] [phone] ROXI WINKLER MCR (WNR) MEDICARE ADVANTAGE MCR (WNR) Apr 03, 2019 [id number] [phone] ROXI WINKLER JR MCR (WNR) MEDICARE ADVANTAGE MCR (WNR) Apr 03, 2019 [id number] ROXI WINKLER JR MCR (WNR) MEDICARE ADVANTAGE MCR (WNR) Apr 03, 2019 [id number] ROXI WINKLER PHARMACY PRESCRIPT ION NONE Jun 03, 2017 NONE [id number] ROXI WINKLER PATIENT MEDICARE PART D ([place]) MEDICARE (M) PART D Sep 03, 2023 PART D [id number] ROXI WINKLER JR PATIENT Selected Encounter This section includes the information on record at [place] for the Encounter. Date/Time Encounter Type Encounter Description Reason Pro vider Source Mar 26, 2025 07:38 PM Outpatient Encounter ADMIN PAT ACTIVTIES (MASNONCT) IHE Encounter Template Text not used by [place] Plan of Treatment: Future Appointments (+ 6 [...] 2025 10:30 AM [facility] Active, Pending, and Scheduled Orders This section includes a listing of several types of active, pending, and scheduled orders, including clinic medications orders, diagnostic test orders, procedure orders and consult orders; where the start date of the order is 45 days before the date of the Encounter or 45 days after the date of theEncounter. The data comes from all [place] treatment facilities. Test Date/Time Test Type Test Details Facility Name Mar 17, 2025 10:07 AM Consult Order [facility] Cons Operations Research Group Manager's Choice [facility] Mar 24, 2025 12:00 AM Laboratory - Chemi stry Order DIGOXIN [id number] SP ONCE [facility] Mar 24, 2025 12:00 AM Laboratory - Chemi stry Order PANEL 1 [id number] SP ONCE [facility] Social History: [...] 2016 01:12 AM NON-TOBACCO USE INPATIENT [facility] Tobacco Use History This section includes a history of the smoking, or tobacco-related health factors, that were collected on or before the date of the Encounter. The data comes from the [place] facility where the Encounter took place. Date/Time Smoking Status/Tobacco Use Comment F acility Nov 24, 2015 04:48 PM NON-TOBACCO USE INPATIENT [facility] Oct 01, 2014 07:15 PM NON-TOBACCO USE INPATIENT [facility] Apr 10, 2005 01:20 PM HF V9 LIFETIME NON-SMOKER [facility] Nov 24, 2003 03:11 PM HF V9 LIFETIME NON-SMOKER [facility] Oct 07, 2002 02:26 PM HF V9 LIFETIME NON-SMOKER [facility] Advance Directives: All historical and [...] 25, 2024 ADVANCE DIRECTIVE DISCUSSION ANTHONY [facility] Encounter Notes: All associated encounter notes This section contains the clinical notes associated to the Encounter. Date/Time Encounter Note(s) Provider Source Mar 26, 2025 07:38 PM NONVA NOTE: [facility] TITLE: [facility] SELF PRESENTING CARE COORD PLAN STANDARD TITLE: NONVA NOTE DATE OF NOTE: MAR 26, 2025@19:38 ENTRY DATE: MAR 26, 2025@19:38:25 AUTHOR: ABIMBOLA CORRAL EXP COSIGNER: URGENCY: STATUS: COMPLETED Emergency Notification Intake Date Presenting to the Facility: Mar Method of Contact: Phone [facility] Name: Hospital: [facility] Address: City: [place] State: [place] Zip Code: Phone : [facility] Facility Point of Contact: Name: CHANTALE Chief complaint: SOA Primary Diagnosis: COPD EXACERBATION Disposition Treatment in progress /es/ ABIMBOLA CORRAL Health Boat Designer on Duty (HOD) Signed: 03/26/2025 19:50 Receipt Acknowledged By: * AWAITING SIGNATURE * LACY YUSUF * AWAITING SIGNATURE * KIERA PRATHER * AWAITING SIGNATURE * KIZZY NIX JEREMY D [place] [facility]
--- NOTE | 2025-03-26 18:27 | PC.NURSE ---
Patients FSBS is 311.
--- NOTE | 2025-03-26 18:32 | XR_ITS ---
PROCEDURE INFORMATION: Exam: XR Chest Exam date and time: 03/26/2025 6:46 PM Age: 69 years old Clinical indication: Shortness of breath; Additional info: Dyspnea TECHNIQUE: Imaging protocol: Radiologic exam of the chest. Views: 1 view. COMPARISON: CR XR CHEST PORTABLE 02/27/2025 9:19 PM FINDINGS: Lungs: Bibasilar opacities partially silhouette the diaphragm are favored to represent combination of atelectasis/pleural effusion/consolidation. Pleural spaces: See Lungs finding. Heart/Mediastinum: Unremarkable. No cardiomegaly. Bones/joints: Unremarkable. IMPRESSION: Bibasilar opacities partially silhouette the diaphragm are favored to represent combination of atelectasis/pleural effusion/consolidation.
--- NOTE | 2025-03-26 18:38 | ECG_ITS ---
APPROVED REPORT Exam: Resting ECG HR:75 bpm ECG Measurements Heart Rate 75 AXES QRSd 149 QRS 132 QT 392 T -26 QTc 421 Conclusion ATRIAL FLUTTER/TACHYCARDIA RIGHT AXIS DEVIATION [QRS AXIS > 100] RIGHT BUNDLE BRANCH BLOCK [120+ ms QRS DURATION, UPRIGHT V1, 40+ ms S IN I/aVL/V4/V5/V6] ABNORMAL ECG UNCONFIRMED REPORT Electronically signed by : DOMINIQUE DALY, 03/27/2025 01:00:16
[2025-03-26 18:41] LABS: VBG HCO3 39.7 mmol/L (23-30); VBG PCO2 82.9 mmol/L (35-51); VBG PH 7.30 mmol/L (7.31-7.41); VBG PO2 28.7 mmol/L (28-40)
[2025-03-26 18:42] LABS: Lactate Venous 3.0 mmol/L (0.4-2.0)
[2025-03-26 18:48] LABS: Hematocrit 38.6 % (42.0-52.0); Hemoglobin 12.3 g/dL (14.1-18.0); Mean Corpuscular HGB Conc 31.9 g/dL (31.8-35.4); Mean Corpuscular Hemoglobin 28.9 pg (27.0-31.2); Mean Corpuscular Volume 90.6 fl (80-94); Platelet Count 232 K/mm3 (142-424); Red Blood Count 4.26 M/mm3 (4.60-6.20); White Blood Count 17.2 K/mm3 (4.8-10.8)
--- OUTSIDE RECORDS SUMMARY | 2025-03-26 18:52 | XMS_ITS | Encounter Summary ---
Author Organization Healthcare Address [address] [place] [address] Care Team Providers Care Human Resources Benefits Assistant Name Role Phone Zakiya Mcclure MD Primary Care Provider + [phone] Vannesa Hernandez LCSW Unavailable Unavailable Encounter Details Date Type Department Care Team (Late st Contact Info) Description 06/11/2020 Orders Only External Location [address] [place] [address] Provider, External Social History Tobacco Use Types [...] documented as of this encounter Care Teams Human Resources Benefits Assistant Relationship Specialty Start Date End Date Zakiya Mcclure MD [address] [place] [phone] PCP - General 09/16/23 Vannesa Hernandez, [place] [phone] Ext Js Developer Fire Alarm Operator 06/11/20 06/11/20 documented as of this encounter
--- OUTSIDE RECORDS SUMMARY | 2025-03-26 18:52 | XMS_ITS | Encounter Summary ---
Author Organization Healthcare Address [address] [place] [address] Care Team Providers Care Child Welfare Specialist Name Role Phone Zakiya Mcclure MD Primary Care Provider + [phone] Vannesa Hernandez LCSW Unavailable Unavailable Encounter Details Date Type Department Care Team (Late st Contact Info) Description 06/11/2020 Orders Only External Location [address] [place] [address] Provider, External Social History Tobacco Use Types [...] documented as of this encounter Care Teams Child Welfare Specialist Relationship Specialty Start Date End Date Zakiya Mcclure MD [address] [place] [address] PCP - General 09/16/23 Vannesa Hernandez, [place] [phone] Manager Sports Escrow Manager 06/11/20 06/11/20 documented as of this encounter
--- OUTSIDE RECORDS SUMMARY | 2025-03-26 18:53 | XMS_ITS | Encounter Summary ---
Author Organization Healthcare Address [address] [place] [address] Care Team Providers Care Professor Of Exercise Science Name Role Phone Zakiya Mcclure MD Primary Care Provider + [phone] Vannesa Hernandez LCSW Unavailable Unavailable Encounter Details Date Type Department Care Team (Late st Contact Info) Description 06/11/2020 Orders Only External Location [address] [place] [address] Provider, External Social History Tobacco Use Types [...] documented as of this encounter Care Teams Professor Of Exercise Science Relationship Specialty Start Date End Date Zakiya Mcclure MD [address] [place] [phone] PCP - General 09/16/23 Vannesa Hernandez, [place] [phone] Rn Admit Office Clin Asst 06/11/20 06/11/20 documented as of this encounter
--- OUTSIDE RECORDS SUMMARY | 2025-03-26 18:53 | XMS_ITS ---
Author Organization Unknown TREATMENT PLAN Planned [facility] Start Date Provider Encounter for Check-up [phone] [facility]
--- OUTSIDE RECORDS SUMMARY | 2025-03-26 18:53 | XMS_ITS | Encounter Summary ---
Author Organization Healthcare Address [address] [place] [address] Care Team Providers Care Package Dye Stand Loader Name Role Phone Zakiya Mcclure MD Primary Care Provider + [phone] Vannesa Hernandez LCSW Unavailable Unavailable Encounter Details Date Type Department Care Team (Late st Contact Info) Description 06/11/2020 Orders Only External Location [address] [place] [address] Provider, External Social History Tobacco Use Types [...] documented as of this encounter Care Teams Package Dye Stand Loader Relationship Specialty Start Date End Date Zakiya Mcclure MD [address] [place] [phone] PCP - General 09/16/23 Vannesa Hernandez, [place] [phone] Wire Fence Erector Hospice Clinical Supervisor 06/11/20 06/11/20 documented as of this encounter
--- OUTSIDE RECORDS SUMMARY | 2025-03-26 18:53 | XMS_ITS | Encounter Summary ---
Author Organization Healthcare Address [address] [place] [address] Care Team Providers Care Project Construction Assistant Manager Name Role Phone Zakiya Mcclure MD Primary Care Provider + [phone] Vannesa Hernandez LCSW Unavailable Unavailable Encounter Details Date Type Department Care Team (Late st Contact Info) Description 06/11/2020 Orders Only External Location [address] [place] [address] Provider, External Social History Tobacco Use Types [...] documented as of this encounter Care Teams Project Construction Assistant Manager Relationship Specialty Start Date End Date Zakiya Mcclure MD [address] [place] [phone] PCP - General 09/16/23 Vannesa Hernandez, [place] [phone] Dentures Lab Technician Graphic Engineer 06/11/20 06/11/20 documented as of this encounter
--- OUTSIDE RECORDS SUMMARY | 2025-03-26 18:53 | XMS_ITS | Clinical Summary ---
Author Organization Healthcare Address [address] [place] [address] Care Team Providers Care Protection Engineer Name Role Phone Zakiya Mcclure MD Primary Care Provider + [phone] Allergies Active Allergy Reactions Criticality Noted Date [...] Department Care Team Description 12/25/2024 Patient Outreach [facility] Medicine Specialties [address] [place] [address] Dai Argueta from Last 3 [...] place to sleep or slept in a group home (including now)? 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 - [id number] Implanted:Qty : 2 on 09/20/2023 by Los Mendoza MD at [facility] [id number] 09/20/2024 [id number] / . / Screw Screw N/A: Back Screw 6.0mm Viper Cfx Fen Xtab 50mm - S. - [id number] Implanted:Qty : 4 on 09/20/2023 by Los Mendoza MD at [facility] [id number] 09/20/2024 [id number] / . / Screw 6.0mm Viper Cfx Fen Xtab 45mm - S. - [id number] Implanted:Qty : 4 on 09/20/2023 by Los Mendoza MD at [facility] Screw [id number] 09/20/2024 [id number] / . / Single Inner Setscrew - S. - [id number] Implanted:Qty : 8 on 09/20/2023 by Los Mendoza MD at [facility] Screw [id number] 09/20/2024 [id number] / . / Procedures Procedure Name Priority [...] Adults <6.0% Children and Adolescents <7.5% Source: [place] [employer]. Standards of medical care in diabetes,2017. Diabetes Care.2017:40 (suppl 1):S1-S135. HbA1c assay performed by an ion-exchange chromatography method that is certified traceable to the DCCT. us Dianelys Monge APRN LAB BLOOD ORDERABLES Elda l Result Performing Organization Address City/[facility] Co de Phone Number HEALTHCARE LAB [address] [place] [address] * Tiger Hepatitis C Antibody (06/11/2020 4:49 PM EDT) Tiger Hepatitis C Ab NEGATIVE Reference Range: Negative SUNQUEST 06/11/2020 4:49 PM EDT 06/11/2020 4:58 PM EDT Yasmany Butterfield MD LAB BLOOD ORDERABLES Final Result SUNQUEST from Last 3 Months or Most Recently Relevant to Health Maintenance Additional Health Concerns Infection Onset Date Last Indicated MRSA Comment:MRSA (methicillin resistant Staphylococcus aureus) 06/21/2020 01/25/2021 Insurance [facility] [employer]NA MEDICARE Advance Directives * Full Code (Latest Code Status on File) Date Activated Date Inactivated Comments 09/17/2023 1:42 AM 09/25/2023 5:18 PM Question Answer Comments Patient has decision-making capacity? Yes Care Teams Protection Engineer Relationship Specialty Start Date End Date Zakiya Mcclure MD [address] [place] [address] PCP - General 09/16/23
[2025-03-26] MEDS: IPRATROPIUM/ALBUTEROL 3 ML NEB 9 ML IH (18:58)
[2025-03-26] MEDS: METHYLPREDNISOLONE SOD SUCC 125MG VIAL 125 MG IV (19:00)
[2025-03-26] MEDS: DOXYCYCLINE HYCLATE 100 MG in 0.9 % SODIUM CHLORIDE 250 ML 166.667 MG IV (19:02)
[2025-03-26 19:11] LABS: Chloride 80 mmol/L (98-107)
--- NOTE | 2025-03-26 19:11 | PC.NURSE ---
Report from Zuleyka PALAFOX. Assumed care of patient at this time. Resp at the bedside to place bipap on patient.
[2025-03-26 19:12] LABS: Albumin Level 3.8 g/dl (3.5-5.0); Potassium 4.2 mmoL/L (3.5-5.1); Sodium 128 mmol/L (136-145)
[2025-03-26 19:14] LABS: Blood Urea Nitrogen 21 mg/dl (9-20); Creatinine Clearance Estimated 94 mL/min (50-200); Creatinine,Serum 1.20 mg/dl (0.66-1.25); Estimated Glomerular Filt Rate 60 ml/min (>60); GFR (African American) 72 ML/MIN (>60)
[2025-03-26 19:15] LABS: Alanine Aminotransferase 15 U/L (12-78); Albumin/Globulin Ratio 0.8 (1.1-1.8); Alkaline Phosphatase 303 U/L (38-126); Aspartate Amino Transferase 31 U/L (17-59); Bilirubin,Total 1.0 mg/dl (0.2-1.3); Calcium 8.7 mg/dl (8.4-10.2); Globulin 4.5 g/dL (1.3-3.2); Glucose 302 mg/dl (74-100); Lipase 71 U/L (23-300); Total Protein,Serum 8.3 g/dl (6.3-8.2)
--- NOTE | 2025-03-26 19:20 | ED_ITS ---
Discharge Plan Disposition Patient Disposition: Admitted Condition: Serious Clinical Impressions Clinical Impression: CO2 retention Discharge ED Provider: Jerman Valenzuela General Chief Complaint: Shortness of Breath/Dyspnea Stated Complaint: AMS, low O2 Time Seen by Provider: 03/26/25 18:32 Mode of Arrival: Ambulatory Source of Information: Patient and Relative Description of Symptoms (Recalled from ER Triage Doc. by RN): Patient presents to ED for SOA and hypoxia with altered mental status that began today. Patient's family reports productive cough for one week, has increased his neb treatments. C/o pain all over. History of Present Illness HPI narrative: This is a 69 year old male patient, with past medical history of HIV, chronic hypoxic respiratory failure, heart failure, A-fib, diabetes, COPD, who is presenting to the emergency department for evaluation of dyspnea. The patient was brought in by his daughter who tells me he has had cough, production of sputum, and worsening dyspnea this week. The patient was evaluated by home health nurse today who found his SpO2 was in the 70's on his baseline oxygen of 3 L nasal cannula. He experienced some intermittent confusion as well. Patient has remained afebrile, no chills. He has not had any worsening lower extremity edema. No chest pain. Related Data Home Medications ?Medication ?Instructions ?Recorded ?Confirmed finasteride 5 mg tablet 5 mg PO DAILY 11/13/1803/27 tamsulosin 0.4 mg capsule 0.4 mg PO HS 01/06/20 methocarbamol 750 mg tablet 750 mg PO Q6HP PRN Muscle Spasm 11/26/20 03/27/25 cholecalciferol (vitamin D3) 25 25 mcg PO DAILY 02/28/25 mcg (1,000 unit) capsule venlafaxine 150 mg 150 mg PO DAILY 09/16/23 capsule,extended release 24 hr (Effexor XR) tramadol 50 mg tablet 50 mg PO 0900,1700 08/19/24 02/28/25 Held on 03/03/25. Instructions: Would recommend holding, as he is Suboxone patch I question the efficacy of this medication other than causing increased fall risk and respiratory depression albuterol sulfate 90 mcg/actuation 1 inh inhalation QI DP PRN 08/20/24 03/27/25 aerosol inhaler Shortness Of Breath sitagliptin 100 mg tablet 100 mg PO DAILY 08/20/24 aspirin 81 mg capsule 81 mg PO DAILY 11/04/2403/04 bictegravir 50 mg-emtricitabine 1 tab PO DAILY 5 03/27/25 200 mg-tenofovir alafenam 25 mg tablet (Biktarvy) gabapentin 300 mg capsule 600 mg PO 1700 11/04/2403/04 gabapentin 300 mg capsule 900 mg PO 0900,2100 11/04/24 03/27/25 lidocaine 5 % topical patch 2 patch topical DAILY 12/2602/28/25 tiotropium 2.5 mcg-olodaterol 2.5 2 puff inhalation DA KASHIF 11/04/24 03/27/25 mcg/actuation mist for inhalation (Stiolto Respimat) tramadol 50 mg tablet 75 mg PO HS 11/04/24 5 Held on 03/03/25. Instructions: Would recommend holding, as he is Suboxone patch I question the efficacy of this medication other than causing increased fall risk and respiratory depression Bifidobacterium longum 10 million 10 cell PO DAILY 03/27/25 cell capsule (Align (B.longum)) buprenorphine 7.5 mcg/hour weekly 1 patch transdermal WEEKLY 02/28/25 03/27/25 transdermal patch omega-3 fatty acids 1,200 mg PO DAILY 02/28/25 0 03/27/25 metoprolol succinate 100 mg 100 mg PO DAILY 03/27/25 0 03/27/25 tablet,extended release 24 hr Previous Rx's ?Medication ?Instructions ?Recorded pantoprazole 40 mg tablet,delayed 40 mg PO DAILY 30 da ys #0 tabs 08/23/24 release bumetanide 2 mg tablet 2 mg PO BIDL 30 days #60 tab s 11/05/24 digoxin 125 mcg (0.125 mg) tablet 125 mcg PO DAILY 30 days #30 tabs 03/03/25 Allergies Allergy/AdvReac Type Severity Reaction Status Date / Time SANDRA Inhibitors Allergy Unknown Unknown Verified 02/27/25 20:15 allergy reaction clofibrate Allergy Unknown Unknown Verified 02/27/25 20:15 allergy reaction enalapril Allergy Unknown Unknown Verified 02/27/25 20:15 allergy reaction erythromycin base Allergy Unknown Unknown Verified 02/27/25 20:15 allergy reaction gemfibrozil Allergy Unknown Unknown Verified 02/27/25 20:15 allergy reaction hepatitis A virus vaccine Allergy Unknown Unknown Verified 02/27/25 20:15 allergy reaction hydralazine Allergy Unknown Unknown Verified 02/27/25 20:15 allergy reaction Macrolide Antibiotics Allergy Unknown Unknown Verified 02/27/25 20:15 allergy reaction pravastatin (From Pravachol) Allergy Unknown Unknown Verified 02/27/25 20:15 allergy reaction Tztryuj-GXQ-OpO Reductase Allergy Unknown Unknown Verified 02/27/25 20:15 Inhibitor (Rmotupb-Lke-Vrv allergy Reductase Inhibitor) reaction PFSH PFS Disclaimer: The information contained in this section may have been updated after the patient was seen, as this information can be updated by other users. Medical History (Updated 03/27/25 @ 01:29 by Negrito Patricio MD) Pneumonia Encounter for monitoring digoxin therapy Diabetic toe ulcer Atrial flutter Acute on chronic heart failure with preserved ejection fraction (HFpEF) HLD (hyperlipidemia) GERD (gastroesophageal reflux disease) CAD (coronary artery disease) CHF (congestive heart failure) Pleural effusion, bilateral Acute respiratory failure with hypoxia and hypercarbia Hypertension Chronic venous stasis dermatitis of both lower extremities HIV (human immunodeficiency virus infection) Diabetes mellitus, type 2 Closed fracture of neck of left humerus GI bleed due to NSAIDs Morbid obesity with BMI of 45.0-49.9, adult Family History Other No significant family history Social History Smoking Status: Never smoker second hand exposure: No alcohol intake: never substance use type: denies use current occupational status: retired Travel in the last 8 weeks?: None household members: spouse and family housing: house current occupational exposures/hazards: No caffeine: Yes Have you lived/traveled outside [place] in past 30 days?: No Contact w/someone who lives/traveled outside US past 30 days?: No Exposure to someone with infectious disease in past 14 days?: No Do you have a fever (greater than 100.4 F or 38 C)?: No Have you tested positive for COVID-19?: No Exposed to someone with COVID-19 in past 14 days?: No Do you have a sore throat?: No Do you have a cough?: No Do you have any weakness?: No Do you have any diarrhea?: No Are you experiencing any unusual bleeding?: No Do you have any muscle aches/pain?: No Do you have any abdominal pain?: No Are you experiencing loss of taste or smell?: No Other Medical History Have you received the Flu Vaccine for this season: No Have you received the Pneumonia Vaccine: No ROS Obtained: Yes Systems reviewed as appropriate & no additional complaints except as documented Physical Exam General General appearance: alert Head Head exam: atraumatic Eye Eye exam: Present PERRL and EOMI ENT ENT exam: Present normal oropharynx and mucous membranes moist Neck Neck exam: Present full ROM and trachea midline Respiratory Respiratory exam: Present other (Increased work of breathing with poor air movement and wheezes appreciated bilaterally.) Cardiovascular Cardiovascular exam: Present regular rate Abdominal Exam Abdominal exam: Present soft; Absent tenderness Extremities Exam Extremities exam: Present normal inspection; Absent tenderness Back Exam Back exam: Absent vertebral tenderness Neurological Exam Neurological exam: Present alert and oriented X3 Skin Skin exam: Present warm and dry HEART Score HEART Score HEART Score assessment performed?: Yes History (anamnesis): Moderately suspicious ECG: Non-specific disturbance Age: >65 years Risk factors: 3 or more risk factors Troponin: </= normal limit HEART Score: 6 Critical Care Critical Care Time Critical Care Time: Yes Attestation: On 03/26/25, the high probability of a clinically significant, sudden or life threatening deterioration of the following system(s) required my full and direct attention, intervention and personal management. The time I documented below is in addition to time spent performing reported procedures but includes the following listed in this critical care notation. Total Time Total Critical Care Time: 90 Medical Decision Making Medical Records Medical records reviewed: Yes I reviewed the patient's medical records. Valentin Inquiry Pt receiving controlled substance: No Valentin was queried for this patient: No Vital Signs Vital Signs: 03/26/25 18:20 03/26/25 18:20 03/26/25 18:34 Temperature 98.5 F 98.5 F Temperature Source Oral Pulse Rate 82 76 Pulse Rate [Right] 82 Respiratory Rate 20 20 18 Blood Pressure 138/74 138/74 Blood Pressure [Right Arm] 138/74 Blood Pressure Mean [Right Arm] 95 Blood Pressure Position 02 Sat by Pulse Oximetry 76 L 76 L 93 L Oxygen Delivery Method Nasal Cannula Nasal Cannula Oxygen Flow Rate (LPM) 4 4 Fraction of Inspired Oxygen 03/26/25 19:20 03/26/25 19:33 03/26/25 20:00 Temperature Temperature Source Pulse Rate 76 70 Pulse Rate [Right] Respiratory Rate 21 21 Blood Pressure 137/95 H 122/66 Blood Pressure [Right Arm] Blood Pressure Mean [Right Arm] Blood Pressure Position 02 Sat by Pulse Oximetry 97 95 Oxygen Delivery Method BiPAP Oxygen Flow Rate (LPM) Fraction of Inspired Oxygen 30 03/26/25 20:30 03/26/25 21:18 03/26/25 21:34 Temperature Temperature Source Pulse Rate 66 Pulse Rate [Right] 72 Respiratory Rate 19 Blood Pressure 129/61 Blood Pressure [Right Arm] Blood Pressure Mean [Right Arm] Blood Pressure Position 02 Sat by Pulse Oximetry 94 L 95 Oxygen Delivery Method BiPAP BiPAP Oxygen Flow Rate (LPM) 30 Fraction of Inspired Oxygen 30 25 03/26/25 21:44 Temperature 98.5 F Temperature Source Oral Pulse Rate 68 Pulse Rate [Right] Respiratory Rate 16 Blood Pressure 122/70 Blood Pressure [Right Arm] Blood Pressure Mean [Right Arm] Blood Pressure Position Sitting 02 Sat by Pulse Oximetry Oxygen Delivery Method BiPAP Oxygen Flow Rate (LPM) 30 Fraction of Inspired Oxygen Lab Data Labs: Lab Results 03/26/25 18:34: VBG pH 7.30 L, VBG pCO2 82.9 H, VBG pO2 28.7, VBG HCO3 39.7 H, V BG Total CO2 42.2 H, VBG O2 Saturation 49.0 L, VBG Base Excess 9.8 H, VBG Lactic Acid 3.0 H 03/26/25 18:36: WBC 17.2 H, RBC 4.26 L, Hgb 12.3 L, Hct 38.6 L, MCV 90.6, MCH 28.9, MCHC 31.9, RDW 13.2, Plt Count 232, MPV 9.3, Neut % (Auto) 84.7 H, Lymph % (Auto) 6.7 L, [place] % (Auto) 6.2, Eos % (Auto) 1.6, Baso % (Auto) 0.3, Neut # (Auto) 14.5 H, Lymph # (Auto) 1.2, [place] # (Auto) 1.1 H, Eos # (Auto) 0.3, Baso # (Auto) 0.1, Total Counted 100, Neutrophils % (Manual) 78 H, Lymphocytes % (Manual) 12, Monocytes % (Manual) 6, Eosinophils % (Manual) 1, Basophils % (Manual) 3.0 H, Platelet Estimate Normal, Polychromasia 1+, Poikilocytosis 1+, Basophilic Stippling 1+, Sodium 128 L, Potassium 4.2, Chloride 80 L, Carbon Dioxide 43 H*, Anion Gap 9.2, BUN 21 H, Creatinine 1.20, Estimated Creat Clear 94, Estimated GFR 60, Est GFR ( Amer) 72, Glucose 302 H, Calcium 8.7, Total Bilirubin 1.0, AST 31, ALT 15, Alkaline Phosphatase 303 H, Troponin I < 0.01, NT-Pro-B Natriuret Pep 2600 H, Total Protein 8.3 H, Albumin 3.8, Globulin 4.5 H, Albumin/Globulin Ratio 0.8 L, Lipase 71, Procalcitonin 0.145 03/26/25 20:53: VBG pH 7.29 L, VBG pCO2 84.8 H, VBG pO2 53.7 H, VBG HCO3 40.0 H, VBG Total CO2 42.6 H, VBG O2 Saturation 84.2 H, VBG Base Excess 10.3 H, VBG Lactic Acid 1.5 03/26/25 21:36: Troponin I < 0.01 03/26/25 18:36 03/26/25 18:36 Response Orders (Tests/Meds): ED MEDICATIONS Generic Name Dose Route Start Last Admin Trade Name Freq PRN Reason Stop Dose Admin Albuterol/Ipratropium 3 ml 03/27/25 06:00 Ipratropium/Albuterol 3 Ml Neb IH 04/26/25 05:59 Q6RT DEANA Digoxin 125 mcg 03/27/25 09:00 Digoxin 0.125mg Tablet PO 04/26/25 08:59 DAILY DEANA Enoxaparin Sodium 40 mg 03/27/25 09:00 Enoxaparin 40mg/0.4ml Syringe SUBCUT 04/26/25 08:59 DAILY DEANA Finasteride 5 mg 03/27/25 09:00 Finasteride 5mg Tablet PO 04/26/25 08:59 DAILY [facility] Gabapentin 600 mg 03/27/25 09:00 Gabapentin 300mg Capsule PO 04/26/25 08:59 0900,2100 [facility] Gabapentin 600 mg 03/27/25 17:00 Gabapentin 300mg Capsule PO 04/26/25 16:59 1700 [facility] Cefepime HCl 2 gm/ Sodium 100 mls @ 200 mls/hr 03/26/25 21:30 03/26/25 21:43 Chloride IV 04/05/25 21:29 200 mls/hr Q8H DEANA Administration Metoprolol Succinate 100 mg 03/27/25 09:00 Metoprolol Succinate Xl 100mg Tablet PO 04/26/25 08:59 DAILY DEANA Non-Formulary Medication 2 mg 03/27/25 09:00 Bumetanide PO 04/26/25 08:59 BIDL [facility] Non-Formulary Medication 2 puff 03/27/25 09:00 Tiotropium-Olodaterol [Stiolto Respimat] 04/26/25 08:59 DAILY [facility] Non-Formulary Medication 81 mg 03/27/25 09:00 Aspirin PO 04/26/25 08:59 DAILY [facility] Non-Formulary Medication 1 tab 03/27/25 09:00 Lsvzmvppk-Fcexbedm-Obrqjvy Ala [Biktarvy] PO 04/26/25 08:59 DAILY [facility] Non-Formulary Medication 1 patch 03/27/25 01:00 03/27/25 01:55 Buprenorphine TD 04/26/25 00:59 Not Given WEEKLY [facility] Non-Formulary Medication 150 mg 03/27/25 09:00 Venlafaxine [Effexor Xr] PO 04/26/25 08:59 DAILY [facility] Pantoprazole Sodium 40 mg 03/27/25 09:00 Pantoprazole 40mg Tablet PO 04/26/25 08:59 DAILY [facility] Sodium Chloride 3 ml 03/27/25 02:28 Sodium Chloride 3% 15ml Neb 04/26/25 02:27 ONCE PRN INDUCE SPUTUM COLLECTION Tamsulosin HCl 0.4 mg 03/27/25 21:00 Tamsulosin 0.4mg Capsule PO 04/26/25 20:59 HS DEANA Discontinued Medications Generic Name Dose Route Start Last Admin Trade Name Freq PRN Reason Stop Dose Admin Albuterol/Ipratropium 9 ml 03/26/25 18:41 03/26/25 18:58 Ipratropium/Albuterol 3 Ml Neb 03/26/25 18:42 9 ml ONCE ONE Administration Doxycycline Hyclate 100 mg/ 250 mls @ 166.667 mls/hr 03/26/25 18:43 03/26/25 19:02 Sodium Chloride IV 03/26/25 18:44 166.667 mls/hr ONCE ONE Administration Methylprednisolone Sodium Succinate 125 mg 03/26/25 18:41 03/26/25 19:00 Methylprednisolone Sod Succ 125mg Vial IV 03/26/25 18:42 125 mg ONCE ONE Administration ORDERS Category Date Time Status Pulmonology Consult [Consult to Pulmonology] [CONS] Cons 03/26/25 21:29 Active Routine CXR --portable [XR chest portable] Stat Exams 03/26/25 18:32 Completed POCUS Point of Care (ER Only) Stat Exams 03/26/25 18:54 Completed BNP [NT Pro Brain Natriuretic Pep.] Stat Lab 03/26/25 18:36 Completed CBC Man Diff [Complete Blood Count Man Dif] Stat Lab 03/26/25 18:36 Completed CMP [Comprehensive Metabolic Panel] Stat Lab 03/26/25 18:36 Completed Complete Blood Count Auto Diff AMLAB Lab 03/27/25 06:00 Ordered Comprehensive Metabolic Panel AMLAB Lab 03/27/25 06:00 Ordered Lipase Stat Lab 03/26/25 18:36 Completed Magnesium AMLAB Lab 03/27/25 06:00 Ordered Mini Respiratory Panel Stat Lab 03/26/25 18:32 Ordered Procalcitonin Stat Lab 03/26/25 18:36 Completed Troponin I Q3H Lab 03/26/25 21:36 Completed Troponin I Q3H Lab 03/27/25 01:00 Completed Troponin I Stat Lab 03/26/25 18:36 Completed Blood Culture Stat Micro 03/26/25 18:55 Received VBG [Venous Blood Gas] Stat RT 03/26/25 18:34 Completed VBG [Venous Blood Gas] Stat RT 03/26/25 20:53 Completed ECG Data Tracing #1: Attestation: I reviewed this ECG and interpreted as documented below: ECG Narrative: EKG personally interpreted by me demonstrates atrial flutter at a rate of 75 bpm, right axis, wide QRS with right bundle branch block morphology, no QTc prolongation. No ST elevation or depression. No overt signs of ischemia. MDM Narrative Medical Decision Narrative: In summary, this is a 69 year old male presenting with increased work of breathing in the setting of hypoxia refractory to 3 L nasal cannula at baseline with cough and production of phlegm at home. His comorbidities include HIV, chronic hypoxic respiratory falure, heart failure, A fib which may be exacerbating his symptoms and increases his risk of morbidity. On initial evaluation of the patient he was ill appearing with increased work of breathing. He has diminished breath sounds bilaterally with wheezing appreciated. He is normotensive and does not demonstrate tachycardia. Patient was initially alert and oriented x3 but was tired appearing. He remained alert. After my initial evaluation we placed him on non-rebreather and his oxygen saturations improved to 92%. Differential included COPD exacerbation, pneumonia, ACS/NV, bacteremia, sepsis, hypercapneic respiratory failure, hypoxic respiratory failure, heart failure exacerbation, among others. Initial workup included hematologic labs and chest xray as well as EKG. Initial interventions included treatment with 3 duonebs as well as 125 mg of methylprednisolone. We also administered Doxycycline for atypical, staph, and streptococcal coverage. Labs personally interpreted by me demonstrate a leukocytosis of 17 (up from 6on 03/03) with a neutrophilic shift. Blood gas shows an acidosis with a pH of 7.30, pCO2 of 82, and Bicarb of 40. No evidence of FRANNIE or acute kidney injury. Procalcitonin is 0.145. BNP >2000, however, his last BNP was > 5000 and on bedside POCUS assessment he does not have B-lines or an appreciable pleural effusion so I favor community acquired pneumonia as the source of his hypoxia as opposed to severe decompensated heart failure. CXR was personally interpreted by me and demonstrates opacities in the inferior lung conn. Official radiology read in agreement, and states that this may be effusion vs consolidation. Again, favored to represent consoldation given POCUS findings. This patient necessitated a great deal of critical care while in the emergency department. He was placed on BiPAP for hypercapnia with acidosis, and serial gases were obtained over the course of 90 minutes. Repeat blood gas showed a worsening acidosis with a pH of 7.29 and an increasing pCO2 to 84. During this period of management we closely monitored pressures to ensure he was not developing signs of systemic infection with hypotension. [facility] given [facility] who [facility]. Patient and family refused. Therefore, I had an interactive discussion with the internal medicine service who agreed to evaluate the patient in the emergency department. After our discussiona and their evaluation they agreed to admit the patient to their service and accept primary responsibility of the patient moving forward. Limited cardiac ultrasound note Indication: Dyspnea Identified cardiac views: Cardiac parasternal long axis Cardiac parasternal short axis Inadequate view of apical four-chamber Unable to obtain cardiac subxiphoid Findings: Cardiac activity: Present. EPSS is greater than 0.7 Gross wall motion: No wall motion abnormality Pericardial effusion: No pericardial effusion Right heart strain: No evidence of right heart strain (no D sign present, unable to obtain TAPSE given poor quality four-chamber apical) Impression: Mildly reduced ejection fraction with no evidence of right heart strain and no pericardial effusion present. Images were saved to permanent archive This study was technically adequate CPT: 07540 This study was performed by ok and I personally interpreted all images/videos. Based on my clinical judgment these images were adequate and did not necessitate further imaging. Limited lung ultrasound A focused ultrasound exam of the pleural spaces was performed to evaluate for pneumothorax, pulmonary edema, pleural effusion, and/or consolidation. The ultrasound was performed with the following indications as noted in the H&P: Dyspnea Identified structures: Right and left thoracic cavities were examined. Findings Lung sliding: Lung sliding present B-lines: No B-lines present on left anterior or lateral chest No B-lines present on right anterior or lateral chest Pleural effusion: No evidence of pleural effusion on the right or left Impression: Pneumothorax left and right absent Pleural effusion left and right absent B-lines left and right absent Images were saved to permanent archive This study was technically adequate CPT: 98589-65 This study was performed by ok and I personally interpreted all images/videos. Based on my clinical judgment these images were adequate and did necessitate further imaging with CXR.
[2025-03-26 19:24] LABS: Anion Gap 9.2 mEq/L (5-15); Carbon Dioxide 43 mmol/L (22.0-30.0); NT Pro Brain Natriuretic Pep. 2600 pg/mL (0-125)
--- NOTE | 2025-03-26 19:30 | PC.NURSE ---
[facility], [facility] will [facility] to let us know if they have a bed
[2025-03-26 19:35] LABS: Total Cells Counted 100
[2025-03-26 19:36] LABS: Basophilic Stippling 1+; Poikilocytosis 1+; Polychromasia 1+
[2025-03-26 19:38] LABS: Troponin I < 0.01 ng/ml (0.00-0.034)
--- NOTE | 2025-03-26 19:38 | PC.NURSE ---
Doxy removed from dial flow and placed on IV pump. Medication bag protected from light with BP cuff that is not hooked to equipment.
--- NOTE | 2025-03-26 20:05 | PC.NURSE ---
Pt has multiple wounds noted to left foot and right leg.
[2025-03-26 20:12] LABS: Procalcitonin 0.145 ng/mL (0.0-2.0)
[2025-03-26 21:12] LABS: VBG HCO3 40.0 mmol/L (23-30); VBG PCO2 84.8 mmol/L (35-51); VBG PH 7.29 mmol/L (7.31-7.41); VBG PO2 53.7 mmol/L (28-40)
[2025-03-26 21:13] LABS: Lactate Venous 1.5 mmol/L (0.4-2.0)
--- NOTE | 2025-03-26 21:28 | EXP.HP ---
History of Present Illness *Admission Date: 03/26/25 *Reason for visit:: confusion, soa, increased productive cough *History of present illness: Mr. Love is a 69-year-old male with history of HIV, chronic hypoxic respiratory failure, A-fib, diabetes, COPD. Patient has had progressive decline over the past several months to year. He presented to the ER today due to worsening shortness of breath. Daughter who is a nurse and helps care for him states that over the past week he has had increased cough, congestion, wheeze and shortness of breath. He had gone up on his home oxygen and increased nebulizer use with no benefit. Became more short of breath today necessitating presentation to the ER. Was also more confused. Home health nurse recommended to go to the ER because of the confusion. On arrival to the ER, found to be hypoxic and hypercapnic. pH 7.3, pCO2 80 on VBG. BNP 2600. Placed on BiPAP with persistent hypercapnia but improved tolerance and increased tidal volumes. White count elevated at 17. Given report of increased production of cough and sputum, concern for pneumonia with acute on chronic hypoxic and hypercapnic respiratory failure. Initiated on doxycycline in the ED. Medicine consulted for admission and further management. Patient admitted to stepdown level of care due to BiPAP and worsening hypercapnia. On my evaluation, he is fatigued and alert to person and place but otherwise shows confusion. History supplemented by daughter at bedside. Broaden antibiotic coverage to include cefepime given recent healthcare exposure and significant sputum production per daughter's report. Denies chest pain. Does complain of aching all over however. No increase in buprenorphine since last admission but is due for an increase in his patch due to persistent pain at home. Afebrile. [facility] Disclaimer: The information contained in this section may have been updated after the patient was seen, as this information can be updated by other users. Medical History (Updated 03/27/25 @ 01:29 by Negrito Patricio MD) Pneumonia Encounter for monitoring digoxin therapy Diabetic toe ulcer Atrial flutter Acute on chronic heart failure with preserved ejection fraction (HFpEF) HLD (hyperlipidemia) GERD (gastroesophageal reflux disease) CAD (coronary artery disease) CHF (congestive heart failure) Pleural effusion, bilateral Acute respiratory failure with hypoxia and hypercarbia Hypertension Chronic venous stasis dermatitis of both lower extremities HIV (human immunodeficiency virus infection) Diabetes mellitus, type 2 Closed fracture of neck of left humerus GI bleed due to NSAIDs Morbid obesity with BMI of 45.0-49.9, adult Family History Other No significant family history Social History Smoking Status: Never smoker second hand exposure: No alcohol intake: never substance use type: denies use current occupational status: retired Travel in the last 8 weeks?: None household members: spouse and family housing: house current occupational exposures/hazards: No caffeine: Yes Have you lived/traveled outside US in past 30 days?: No Contact w/someone who lives/traveled outside US past 30 days?: No Exposure to someone with infectious disease in past 14 days?: No Do you have a fever (greater than 100.4 F or 38 C)?: No Have you tested positive for COVID-19?: No Exposed to someone with COVID-19 in past 14 days?: No Do you have a sore throat?: No Do you have a cough?: No Do you have any weakness?: No Do you have any diarrhea?: No Are you experiencing any unusual bleeding?: No Do you have any muscle aches/pain?: No Do you have any abdominal pain?: No Are you experiencing loss of taste or smell?: No Other Medical History Have you received the Flu Vaccine for this season: No Have you received the Pneumonia Vaccine: No Review of Systems Review of Systems Review of systems (narrative): 14 point review of systems performed, pertinent positives and negatives as per HPI Meds Home Medications and Allergies Home Medications ?Medication ?Instructions ?Recorded ?Confirmed ?Type finasteride 5 mg tablet 5 mg PO DAILY 11/13/18 03/27/25 History tamsulosin 0.4 mg capsule 0.4 mg PO HS 01/06/20 03/27/25 History methocarbamol 750 mg tablet 750 mg PO Q6HP PRN Muscle Spasm 11/26/20 03/27/25 History cholecalciferol (vitamin D3) 25 25 mcg PO DAILY 12/30/20 02/28/25 History mcg (1,000 unit) capsule venlafaxine 150 mg 150 mg PO DAILY 09/16/23 03/27/25 History capsule,extended release 24 hr (Effexor XR) tramadol 50 mg tablet 50 mg PO 0900,1700 08/19/24 02/28/25 History Held on 03/03/25. Instructions: Would recommend holding, as he is Suboxone patch I question the efficacy of this medication other than causing increased fall risk and respiratory depression albuterol sulfate 90 mcg/actuation 1 inh inhalation QIDP PRN 08/20/24 03/27/25 History aerosol inhaler Shortness Of Breath sitagliptin 100 mg tablet 100 mg PO DAILY 08/20/24 02/28/25 History pantoprazole 40 mg tablet,delayed 40 mg PO DAILY 30 days #0 tabs 08/23/24 03/27/25 Rx release aspirin 81 mg capsule 81 mg PO DAILY 11/04/24 03/27/25 History bictegravir 50 mg-emtricitabine 1 tab PO DAILY 11/04/24 03/27/25 History 200 mg-tenofovir alafenam 25 mg tablet (Biktarvy) gabapentin 300 mg capsule 600 mg PO 1700 11/04/24 03/27/25 History gabapentin 300 mg capsule 900 mg PO 0900,2100 11/04/24 03/27/25 History lidocaine 5 % topical patch 2 patch topical DAILY 11/04/24 02/28/25 History tiotropium 2.5 mcg-olodaterol 2.5 2 puff inhalation DAILY 11/04/24 03/27/25 History mcg/actuation mist for inhalation (Stiolto Respimat) tramadol 50 mg tablet 75 mg PO HS 11/04/24 02/28/25 History Held on 03/03/25. Instructions: Would recommend holding, as he is Suboxone patch I question the efficacy of this medication other than causing increased fall risk and respiratory depression bumetanide 2 mg tablet 2 mg PO BIDL 30 days #60 tabs 11/05/24 03/27/25 Rx Bifidobacterium longum 10 million 10 cell PO DAILY 02/28/25 03/27/25 History cell capsule (Align (B.longum)) buprenorphine 7.5 mcg/hour weekly 1 patch transdermal WEEKLY 02/28/25 03/27/25 History transdermal patch omega-3 fatty acids 1,200 mg PO DAILY 02/28/25 03/27/25 History digoxin 125 mcg (0.125 mg) tablet 125 mcg PO DAILY 30 days #30 tabs 03/03/25 03/27/25 Rx metoprolol succinate 100 mg 100 mg PO DAILY 03/27/25 03/27/25 History tablet,extended release 24 hr New Prescriptions to Start Prescriptions: Allergies Allergy/AdvReac Type Severity Reaction Status Date / Time SANDRA Inhibitors Allergy Unknown Unknown Verified 02/27/25 20:15 allergy reaction clofibrate Allergy Unknown Unknown Verified 02/27/25 20:15 allergy reaction enalapril Allergy Unknown Unknown Verified 02/27/25 20:15 allergy reaction erythromycin base Allergy Unknown Unknown Verified 02/27/25 20:15 allergy reaction gemfibrozil Allergy Unknown Unknown Verified 02/27/25 20:15 allergy reaction hepatitis A virus vaccine Allergy Unknown Unknown Verified 02/27/25 20:15 allergy reaction hydralazine Allergy Unknown Unknown Verified 02/27/25 20:15 allergy reaction Macrolide Antibiotics Allergy Unknown Unknown Verified 02/27/25 20:15 allergy reaction pravastatin (From Pravachol) Allergy Unknown Unknown Verified 02/27/25 20:15 allergy reaction Vlraele-BKC-XaD Reductase Allergy Unknown Unknown Verified 02/27/25 20:15 Inhibitor (Yzpznqn-Pem-Vgc allergy Reductase Inhibitor) reaction Exam Data for Last 24 hours Vital signs and Labs for Last 24 Hours: Temp Pulse Resp BP Pulse Ox O2 Del Method O2 Flow Rate 98.5 F 66 19 129/61 94 L BiPAP 03/26/25 18:20 03/26/25 20:30 03/26/25 20:30 03/26/25 20:30 03/26/25 20:30 03/26/25 20:30 03/26/25 20:30 FiO2 30 03/26/25 21:18 Laboratory Results - last 24 hr 03/26/25 18:34: VBG pH 7.30 L, VBG pCO2 82.9 H, VBG pO2 28.7, VBG HCO3 39.7 H, VBG Total CO2 42.2 H, VBG O2 Saturation 49.0 L, VBG Base Excess 9.8 H, VBG Lactic Acid 3.0 H 03/26/25 18:36: WBC 17.2 H, RBC 4.26 L, Hgb 12.3 L, Hct 38.6 L, MCV 90.6, MCH 28.9, MCHC 31.9, RDW 13.2, Plt Count 232, MPV 9.3, Neut % (Auto) 84.7 H, Lymph % (Auto) 6.7 L, [place] % (Auto) 6.2, Eos % (Auto) 1.6, Baso % (Auto) 0.3, Neut # (Auto) 14.5 H, Lymph # (Auto) 1.2, [place] # (Auto) 1.1 H, Eos # (Auto) 0.3, Baso # (Auto) 0.1, Total Counted 100, Neutrophils % (Manual) 78 H, Lymphocytes % (Manual) 12, Monocytes % (Manual) 6, Eosinophils % (Manual) 1, Basophils % (Manual) 3.0 H, Platelet Estimate Normal, Polychromasia 1+, Poikilocytosis 1+, Basophilic Stippling 1+, Sodium 128 L, Potassium 4.2, Chloride 80 L, Carbon Dioxide 43 H*, Anion Gap 9.2, BUN 21 H, Creatinine 1.20, Estimated Creat Clear 94, Estimated GFR 60, Est GFR ( Amer) 72, Glucose 302 H, Calcium 8.7, Total Bilirubin 1.0, AST 31, ALT 15, Alkaline Phosphatase 303 H, Troponin I < 0.01, NT-Pro-B Natriuret Pep 2600 H, Total Protein 8.3 H, Albumin 3.8, Globulin 4.5 H, Albumin/Globulin Ratio 0.8 L, Lipase 71, Procalcitonin 0.145 03/26/25 20:53: VBG pH 7.29 L, VBG pCO2 84.8 H, VBG pO2 53.7 H, VBG HCO3 40.0 H, VBG Total CO2 42.6 H, VBG O2 Saturation 84.2 H, VBG Base Excess 10.3 H, VBG Lactic Acid 1.5 I & O for Last 24 hours: Intake & Output 03/23/25 03/24/25 03/25/25 03/26/25 23:59 23:59 23:59 23:59 Weight 115.666 kg Constitutional Constitutional: mild distress, obese, chronically ill appearing and cooperative *Routine HEENT Exam Head: Present normocephalic and atraumatic Eye: Present PERRL ENT: Present other (unable to assess pt is on bipap) *Routine Neck Exam Neck: Present supple *Routine Respiratory Exam Respiratory: Present accessory muscle use, crackles and diminished air movement; Absent respiratory distress, rhonchi, wheezes or symmetric chest movement *Routine Cardiovascular Exam Cardiovascular: Present RRR, Normal S1 and Normal S2 *Routine Abdominal Exam Abdominal: Present soft, normoactive bowel sounds and obese; Absent tenderness *Routine Rectal Exam Rectal:: deferred *Routine Genitalia Exam Genitalia:: deferred *Routine Extremities Exam Extremities: Present pulses intact and normal capillary refill; Absent edema Comments: Left foot in wrap. No erythema of the leg. Right foot with no lesion *Routine Skin Exam Skin: Present warm; Absent intact Comments: Scabbed over wounds noted to bilateral lower extremities and left foot *Routine Neurological Exam Neurological: Present alert, altered mental status and moving all extremities Comments: Oriented to self and place. Slow to respond. Mild confusion Assessment and Plan *Assessment and plan (1) Encephalopathy acute: Status: Resolved Category: Medical Code(s): G93.40 - Encephalopathy, unspecified (2) Pneumonia: Status: Acute Category: Medical Code(s): J18.9 - Pneumonia, unspecified organism (3) Acute on chronic respiratory failure with hypoxia and hypercapnia: Status: Resolved Category: Medical Code(s): J96.21 - Acute and chronic respiratory failure with hypoxia; J96.22 - Acute and chronic respiratory failure with hypercapnia (4) Type 2 diabetes mellitus with vascular disease: Status: Chronic Category: Medical Code(s): E11.59 - Type 2 diabetes mellitus with other circulatory complications (5) Atrial fibrillation: Status: Acute Category: Medical Code(s): I48.91 - Unspecified atrial fibrillation (6) Chronic diastolic CHF (congestive heart failure): Status: Chronic Category: Medical Code(s): I50.32 - Chronic diastolic (congestive) heart failure (7) HIV disease: Status: Chronic Category: Medical Code(s): B20 - Human immunodeficiency virus [HIV] disease (8) Hypertension: Status: Acute Qualifiers: Hypertension type: primary hypertension Qualified Code(s): I10 - Essential (primary) hypertension Category: Medical Code(s): I10 - Essential (primary) hypertension (9) Hyponatremia: Status: Acute Category: Medical Code(s): E87.1 - Hypo-osmolality and hyponatremia (10) FRANNIE (acute kidney injury): Status: Resolved Category: Medical Code(s): N17.9 - Acute kidney failure, unspecified Plan 69-year-old male with multiple chronic medical conditions including poorly controlled type 2 diabetes, HIV, CHF, COPD, ABEL, pharmacy and frequent falls. Presented to the ER due to confusion, worsening respiratory distress, increased production of sputum. Concern for acute on chronic hypoxemic hypercapnic respiratory failure and pneumonia. Medicine consulted for admission, after extensive discussion with the ER, agreed to admit for further care. Antibiotics broadened. Admitted to stepdown level of care. High risk for further decompensation. Goals of care discussion with family on admission, patient wants to be DNR/DNI. Pulmonology consulted to evaluate in the morning. Problems addressed as follows: Acute on chronic hypoxemic and hypercapnic respiratory failure Pneumonia Loculated effusions, previously seen on CT 02/27/2025 - Chest x-ray per my review which shows bibasilar opacification. Patient has history of loculated effusions. Concern for this being source of infection versus pneumonia in lower lobes. -Continue BiPAP for goal sats greater than 90%. Pulling tidal volumes of 500. Repeat blood gas after increase in respiratory rate to 22 showed improvement with pCO2 69. pH of 7.34. -Pulmonology consulted to evaluate in the morning -Continue cefepime every 8 hours 2 g IV -Blood cultures obtained, sputum culture pending - Continue Stiolto 2 puffs daily Acute on chronic heart failure with preserved ejection fraction Atrial flutter, rate controlled Hypertension - Rate controlled in the 60s to 80s on admission. Blood pressure appropriate. Resume home regimen of metoprolol succinate 100 mg daily and digoxin 125 mcg daily. Digoxin level ordered and pending - BNP elevated 600, last then his level 1 month ago that was 4000; Continue Bumex 2 mg p.o. twice daily - therapeutic anticoagulation with Lovenox. Will discuss risks and benefits of oral DOAC prior to discharge; previously held due to risk of falling and bleeding given patient's recurrent falls at home. Hyponatremia: Sodium 128, chloride 80, BUN 21, creatinine 1.2. Repeat CBC, CMP, magnesium ordered for the morning. Electrolyte protocol ordered. Close monitoring of sodium levels for improvement HIV: On Biktarvy. Continue home regimen. Levels checked last visit, HIV RNA undetectable on 02/28; absolute CD4 count of 429 Altered Mental Status (Encephalopathy) - Consistent with metabolic encephalopathy due to hypercapnia. Monitor for improvement with treatment of respiratory failure as above - Risk for polypharmacy. Has had toxic encephalopathy in the past due to combo of his medications. Caution with oversedation - Resume gabapentin at decreased dose of 300 mg 3 times a day BPH: Continue finasteride 5 mg daily and tamsulosin 0.4 mg nightly Anxiety: Continue Effexor 150 mg daily PT and OT to evaluate adn work with pt. He is consistently adamant he will go home each visit. Has no desire to go to placement. Nursing assisting with getting patient out of bed to chair. Ambulating with support. DNR/DNI Diabetic diet TLOV
--- NOTE | 2025-03-26 21:37 | PC.NURSE ---
rpt trop drawn and sent to the lab at this time
--- NOTE | 2025-03-26 21:42 | PC.NURSE ---
Report given to Danna PALAFOX in the ICU
--- NOTE | 2025-03-26 21:42 | PC.NURSE ---
Respiratory contacted regarding the need for bipap transportation
[2025-03-26] MEDS: CEFEPIME HCL 2 GM in 0.9 % SODIUM CHLORIDE 100 ML IV (21:43)
[2025-03-26 22:07] LABS: Troponin I < 0.01 ng/ml (0.00-0.034)
--- OUTSIDE RECORDS SUMMARY | 2025-03-26 22:29 | XMS_ITS | Encounter Summary ---
Author Organization Healthcare Address [address] [place] [address] Care Team Providers Care Librarian Specialist Name Role Phone Zakiya Mcclure MD Primary Care Provider + [phone] Vannesa Hernandez LCSW Unavailable Unavailable Encounter Details Date Type Department Care Team (Late st Contact Info) Description 06/11/2020 Orders Only External Location [address] [place] [address] Provider, External Social History Tobacco Use Types [...] documented as of this encounter Care Teams Librarian Specialist Relationship Specialty Start Date End Date Zakiya Mcclure MD [address] [place] [phone] PCP - General 09/16/23 Vannesa Hernandez, [place] [phone] Auto Suspension And Steering Mechanic Plate Developer 06/11/20 06/11/20 documented as of this encounter
--- OUTSIDE RECORDS SUMMARY | 2025-03-26 22:29 | XMS_ITS | Encounter Summary ---
Author Organization Healthcare Address [address] [place] [address] Care Team Providers Care Gravity Prospector Name Role Phone Zakiya Mcclure MD Primary Care Provider + [phone] Vannesa Hernandez LCSW Unavailable Unavailable Encounter Details Date Type Department Care Team (Late st Contact Info) Description 06/11/2020 Orders Only External Location [address] [place] [address] Provider, External Social History Tobacco Use Types [...] documented as of this encounter Care Teams Gravity Prospector Relationship Specialty Start Date End Date Zakiya Mcclure MD [address] [place] [address] PCP - General 09/16/23 Vannesa Hernandez, [place] [phone] Station Operator Video Manager 06/11/20 06/11/20 documented as of this encounter
--- OUTSIDE RECORDS SUMMARY | 2025-03-26 22:29 | XMS_ITS | Encounter Summary ---
Author Organization Healthcare Address [address] [place] [address] Care Team Providers Care Hosiery Operator Name Role Phone Zakiya Mcclure MD Primary Care Provider + [phone] Vannesa Hernandez LCSW Unavailable Unavailable Encounter Details Date Type Department Care Team (Late st Contact Info) Description 06/11/2020 Orders Only External Location [address] [place] [address] Provider, External Social History Tobacco Use Types [...] documented as of this encounter Care Teams Hosiery Operator Relationship Specialty Start Date End Date Zakiya Mcclure MD [address] [place] [id number] PCP - General 09/16/23 Vannesa Hernandez, [place] [phone] Tuber Machine Cutter Supervisor Sawmill 06/11/20 06/11/20 documented as of this encounter
--- OUTSIDE RECORDS SUMMARY | 2025-03-26 22:29 | XMS_ITS | Encounter Summary ---
Author Organization Healthcare Address [address] [place] [address] Care Team Providers Care Patch Driller Name Role Phone Zakiya Mcclure MD Primary Care Provider + [phone] Vannesa Hernandez LCSW Unavailable Unavailable Encounter Details Date Type Department Care Team (Late st Contact Info) Description 06/11/2020 Orders Only External Location [address] [place] [address] Provider, External Social History Tobacco Use Types [...] documented as of this encounter Care Teams Patch Driller Relationship Specialty Start Date End Date Zakiya Mcclure MD [address] [place] [phone] PCP - General 09/16/23 Vannesa Hernandez, [place] [phone] Housing Officer Financial Institution Branch Manager 06/11/20 06/11/20 documented as of this encounter
--- OUTSIDE RECORDS SUMMARY | 2025-03-26 22:29 | XMS_ITS | Encounter Summary ---
Author Organization Healthcare Address [address] [place] [address] Care Team Providers Care Monitor Worker Name Role Phone Zakiya Mcclure MD Primary Care Provider + [phone] Vannesa Hernandez LCSW Unavailable Unavailable Encounter Details Date Type Department Care Team (Late st Contact Info) Description 06/11/2020 Orders Only External Location [address] [place] [address] Provider, External Social History Tobacco Use Types [...] documented as of this encounter Care Teams Monitor Worker Relationship Specialty Start Date End Date Zakiya Mcclure MD [address] [place] [phone] PCP - General 09/16/23 Vannesa Hernandez, [place] [phone] [employer] Special Education Teacher Telephone Operator Chief 06/11/20 06/11/20 documented as of this encounter
--- OUTSIDE RECORDS SUMMARY | 2025-03-26 22:31 | XMS_ITS | Encounter Summary ---
Author Name [facility] [place] [facility] [place] [facility] [place] Address [address] [place] [address] Care Team Providers Care Shrimper Name Role Phone LAURY KENYON Primary Care [...] CLAIMS/VA MEDICAL PREFERRED PROVIDER ORGANIZAT ION (PPO) [employer]OUR[employer] ON [employer] Jun 03, 2017 [id number] CATHIROXI PATIENT HUMANA [facility] (WNR) MEDICARE ADVANTAGE [facility] (WNR) Sep 03, 2019 [id number] [phone] CATHI MEDINAROXI PATIENT HUMANA MCR (WNR) MEDICARE ADVANTAGE [facility] (WNR) Sep 03, 2019 [id number] ROXI WINKLER HUMANA MCR (WNR) MEDICARE ADVANTAGE HUMAN A INSUR ANCE COM Apr 04, 2019 [id number] ROXI WINKLER [employer]NA MCR (WNR) MEDICARE ADVANTAGE MCR (WNR) Apr 03, 2019 [id number] ROXI WINKLER [employer]NA MCR (WNR) MEDICARE ADVANTAGE MCR (WNR) Apr 03, 2019 [id number] ROXI WINKLER [employer]NA MCR (WNR) MEDICARE ADVANTAGE MCR (WNR) Apr 03, 2019 [id number] ROXI WINKLER JR [facility]ARM[facility] PRESCRIPT ION NONE Jun 03, 2017 NONE [id number] ROXI WINKLER MEDICARE PART D (WNR) MEDICARE (M) PART D Sep 03, 2023 PART D [id number] ROXI WINKLER JR PATIENT Selected Encounter This section includes the information on record at [place] for the Encounter. Date/Time Encounter Type Encounter Description Reason Pro vider Source IHE Encounter Template Text not used by [place] Advance Directives: All historical and current Section Date Range: From patient's date of to the date document was created. This section includes ALL of a patient's completed or amended [place] Advance and Rescinded Directives. The entries below indicate that a directive exists for the patient, but an actual copy is not included with this document. The data comes from all [place] facilities. Date Advance Directives Provider Source Sep 25, 2024 ADVANCE DIRECTIVE DISCUSSION ANTHONY IRVING-MAURA [facility]
--- OUTSIDE RECORDS SUMMARY | 2025-03-26 22:31 | XMS_ITS | Encounter Summary ---
Author Name [facility] [place] Address [address] [place] [address] Care Team Providers Care Machine Operator Hop Picker Name Role Phone LAURY KENYON Primary Care [...] PREFERRED PROVIDER ORGANIZAT ION (PPO) BOURB ON [employer] Jun 03, 2017 [id number] CATHIROXI PATIENT HUMANA [facility] (WNR) MEDICARE ADVANTAGE [facility] (WNR) Sep 03, 2019 [id number] CATHI MEDINAROXI PATIENT [employer]NA MCR (WNR) MEDICARE ADVANTAGE [facility] (WNR) Sep 03, 2019 [id number] ROXI WINKLER HUMANA MCR (WNR) MEDICARE ADVANTAGE HUMAN A INSUR ANCE COM Apr 04, 2019 [id number] ROXI WINKLER [employer]NA MCR (WNR) MEDICARE ADVANTAGE MCR (WNR) Apr 03, 2019 [id number] ROXI WINKLER [employer]NA MCR (WNR) MEDICARE ADVANTAGE MCR (WNR) Apr 03, 2019 [id number] ROXI WINKLER [employer]NA MCR (WNR) MEDICARE ADVANTAGE MCR (WNR) Apr 03, 2019 [id number] ROXI WINKLER JR PHARMACY PRESCRIPT ION NONE Jun 03, 2017 NONE [id number] RXOI WINKLER MEDICARE PART D (WNR) MEDICARE (M) PART D Sep 03, 2023 PART D [id number] ROXI WINKLER JR PATIENT Selected Encounter This section includes the information on record at [place] for the Encounter. Date/Time Encounter Type Encounter Description Reason Pro vider Source IHE Encounter Template Text not used by [place] Advance Directives: All historical and current Section [...] 25, 2024 ADVANCE DIRECTIVE DISCUSSION ANTHONY IRVING-MAURA [facility]
--- OUTSIDE RECORDS SUMMARY | 2025-03-26 22:32 | XMS_ITS | Clinical Summary ---
Author Organization Healthcare Address [address] [place] [address] Care Team Providers Care Studio Director Name Role Phone Zakiya Mcclure MD Primary Care Provider + [phone] Allergies Active Allergy Reactions Criticality Noted Date [...] Department Care Team Description 12/25/2024 Patient Outreach [facility] Medicine Specialties [address] [place] [address] Dai Argueta from Last 3 [...] place to sleep or slept in a fci (including now)? No 09/18/2023 CAGE ASSESSMENT Answer [...] drink first t primo in the morning (EYE-SCALLOP CUTTER MACHINE) to steady your nerves or to get [...] 09/03/1997 UKY-Diabetes: Hemoglobin A1C 12/18/2023 09/18/2023, 06/13/2020 [id number] Vaccine ( - season) 2024 08/08/2022, 07/08/2021, [...] this topic Medical Devices Implanted Type Area Molder Wax Ball Device Identifier Shelf Expiration Date Model / Serial / Lot Plate Plate Left: Arm Plate Plate N/A: Other (See Comments) Description:Head Ring Ring Right: Eye López Viper2 Straight 120mm - S. - [id number] Implanted:Qty : 2 on 09/20/2023 by Los Mendoza MD at [facility] [id number] 09/20/2024 [id number] / . / Screw Screw N/A: Back Screw 6.0mm Viper Cfx Fen Xtab 50mm - S. - [id number] Implanted:Qty : 4 on 09/20/2023 by Los Mendoza MD at [facility] Screw [id number] 09/20/2024 [id number] / . / Screw 6.0mm Viper Cfx Fen Xtab 45mm - S. - [id number] Implanted:Qty : 4 on 09/20/2023 by Los Mendoza MD at [facility] Screw [id number] 09/20/2024 [id number] / . / Single Inner Setscrew - S. - [id number] Implanted:Qty : 8 on 09/20/2023 by Los Mendoza MD at [facility] Screw [id number] 09/20/2024 [id number] / . / Procedures Procedure Name Priority [...] Adults <6.0% Children and Adolescents <7.5% Source: [place] [employer]. Standards of medical care in diabetes,2017. Diabetes Care.2017:40 (suppl 1):S1-S135. HbA1c assay performed by an ion-exchange chromatography method that is certified traceable to the DCCT. us Dianelys Monge APRN LAB BLOOD ORDERABLES Elda l Result Performing Organization Address City/[facility] Co de Phone Number HEALTHCARE LAB [address] [place] [address] * [place] Hepatitis C Antibody (06/11/2020 4:49 PM EDT) [place] Hepatitis C Ab NEGATIVE Reference Range: Negative SUNQUEST 06/11/2020 4:49 PM EDT 06/11/2020 4:58 PM EDT Yasmany Butterfield MD LAB BLOOD ORDERABLES Final Result SUNQUEST from Last 3 Months or Most Recently Relevant to Health Maintenance Additional Health Concerns Infection Onset Date Last Indicated MRSA Comment:MRSA (methicillin resistant Staphylococcus aureus) 06/21/2020 01/25/2021 Insurance [facility] HUMANA MEDICARE Advance Directives * Full Code (Latest Code Status on File) Date Activated Date Inactivated Comments 09/17/2023 1:42 AM 09/25/2023 5:18 PM Question Answer Comments Patient has decision-making capacity? Yes Care Teams Studio Director Relationship Specialty Start Date End Date Zakiya Mcclure MD [address] [place] [address] PCP - General 09/16/23
--- OUTSIDE RECORDS SUMMARY | 2025-03-26 22:32 | XMS_ITS | Encounter Summary ---
Author Name [facility] [place] Organization [facility] [place] Address [address] [place] [address] Care Team Providers Care Design Engineering Intern Name Role Phone LAURY KENYON Primary Care [...] PREFERRED PROVIDER ORGANIZAT ION (PPO) [employer] Jun 03, 2017 [id number] CATHIROXI PATIENT HUMANA [facility] (WNR) MEDICARE ADVANTAGE [facility] (WNR) Sep 03, 2019 [id number] CATHI MEDINAROXI PATIENT HUMANA [facility] (WNR) MEDICARE ADVANTAGE [facility] (WNR) Sep 03, 2019 [id number] [phone] ROXI WINKLER HUMANA MCR (WNR) MEDICARE ADVANTAGE HUMAN A INSUR ANCE COM Apr 04, 2019 [id number] ROXI WINKLER HUMANA MCR (WNR) MEDICARE ADVANTAGE MCR (WNR) Apr 03, 2019 [id number] ROXI WINKLER HUMANA MCR (WNR) MEDICARE ADVANTAGE MCR (WNR) Apr 03, 2019 [id number] ROXI WINKLER JR HUMANA MCR (WNR) MEDICARE ADVANTAGE MCR (WNR) Apr 03, 2019 [id number] ROXI WINKLER PHARMACY PRESCRIPT ION NONE Jun 03, 2017 NONE [id number] ROXI WINKLER MEDICARE PART D ([place]) MEDICARE (M) PART D Sep 03, 2023 PART D [id number] ROXI WINKLER JR PATIENT Selected Encounter This section includes the information on record at [place] for the Encounter. Date/Time Encounter Type Encounter Description Reason Pro vider Source IHE Encounter Template Text not used by [place] Advance Directives: All historical and current Section Date Range: From patient's date of to the date document was created. This section includes ALL of a patient's completed or amended [place] Advance and Rescinded Directives. The entries below indicate that a directive exists for the patient, but an actual copy is not included with this document. The data comes from all [place] facilities. Date Advance Directives Provider Source Sep 25, 2024 ADVANCE DIRECTIVE DISCUSSION ANTHONY IRVING[facility]A [facility]
[2025-03-26 22:35] LABS: Reflex Lactic Add Lactic Reflex
--- NOTE | 2025-03-26 22:37 | PC.NURSE ---
Patient arrived to ICU unit via stretcher from ED @22:04
[2025-03-26 22:41] LABS: POC Glucose,Bedside 282 (70-110)
[2025-03-26 23:43] LABS: Lactic Acid Follow Up (RFLX 1) 1.1 mmol/L (0.7-2.1)
[2025-03-27] VITALS (25 sets, daily range): BP systolic 95–150; BP diastolic 43–79; PULSE 52–85; RESP 8–25; TEMP 36.2–37.1; O2SAT 75–98; BMI 30.2
[2025-03-27 00:05] LABS: ABG PH 7.34 mmol/L (7.35-7.45)
[2025-03-27 00:06] LABS: ABG HCO3 36.6 mmhg (22.0-26.0); ABG PCO2 69.1 mmhg (35.0-45.0); ABG PO2 65.6 mmhg (80-100); ABG TCO2 38.7 mmhg (23-27)
[2025-03-27 00:07] LABS: Source Right Radial
[2025-03-27 01:40] LABS: Troponin I < 0.01 ng/ml (0.00-0.034)
[2025-03-27 05:33] LABS: POC Glucose,Bedside 353 (70-110)
[2025-03-27] MEDS: CEFEPIME HCL 2 GM in 0.9 % SODIUM CHLORIDE 100 ML IV ×3 (05:39→22:24)
[2025-03-27 05:45] LABS: Alanine Aminotransferase 12 U/L (12-78); Albumin Level 2.8 g/dl (3.5-5.0); Albumin/Globulin Ratio 0.7 (1.1-1.8); Alkaline Phosphatase 262 U/L (38-126); Aspartate Amino Transferase 25 U/L (17-59); Bilirubin,Total 0.5 mg/dl (0.2-1.3); Blood Urea Nitrogen 23 mg/dl (9-20); Calcium 8.6 mg/dl (8.4-10.2); Chloride 86 mmol/L (98-107); Creatinine Clearance Estimated 97 mL/min (50-200); Creatinine,Serum 1.10 mg/dl (0.66-1.25); Estimated Glomerular Filt Rate 66 ml/min (>60); GFR (African American) 80 ML/MIN (>60); Globulin 4.1 g/dL (1.3-3.2); Glucose 358 mg/dl (74-100); Magnesium 2.1 mg/dl (1.6-2.3); Potassium 5.0 mmoL/L (3.5-5.1); Sodium 129 mmol/L (136-145); Total Protein,Serum 6.9 g/dl (6.3-8.2)
[2025-03-27 05:48] LABS: Hematocrit 35.6 % (42.0-52.0); Hemoglobin 11.3 g/dL (14.1-18.0); Immature Granulocytes % 0.4 %; Mean Corpuscular HGB Conc 31.7 g/dL (31.8-35.4); Mean Corpuscular Hemoglobin 28.7 pg (27.0-31.2); Mean Corpuscular Volume 90.4 fl (80-94); Nucleated Red Blood Cells % 0 %; Platelet Count 179 K/mm3 (142-424); Red Blood Count 3.94 M/mm3 (4.60-6.20); Red Cell Distribution Width-SD 43.2 fL; White Blood Count 12.1 K/mm3 (4.8-10.8)
[2025-03-27 05:52] LABS: Anion Gap 11.0 mEq/L (5-15); Carbon Dioxide 37 mmol/L (22.0-30.0)
[2025-03-27 05:53] LABS: Digoxin 1.30 ng/ml (0.2-2.00)
[2025-03-27] MEDS: IPRATROPIUM/ALBUTEROL 3 ML NEB IH ×3 (06:13→18:18)
[2025-03-27 06:21] LABS: Total Cells Counted 100
[2025-03-27] MEDS: BUMETANIDE 1 MG TABLET 2 MG PO (09:10)
[2025-03-27] MEDS: FINASTERIDE 5MG TABLET 5 MG PO (09:10)
[2025-03-27] MEDS: ASPIRIN EC 81MG TABLET 81 MG PO (09:10)
[2025-03-27] MEDS: VENLAFAXINE XR 75MG CAPSULE 150 MG PO (09:11)
[2025-03-27] MEDS: GABAPENTIN 300MG CAPSULE 300 MG PO ×2 (09:19→20:48)
--- NOTE | 2025-03-27 09:27 | EXP.PULM.CON ---
History of Present Illness History of present illness: Much of the history is obtained from chart review. Patient this morning unable to arouse despite subsequent venous blood gas did not show any obvious evidence of acute hypercarbic respiratory failure. Mr. Love is a 69-year-old male with report history of HIV chronic hypoxic respiratory failure A-fib COPD presented to the ER with worsening respiratory distress and pulmonary was called for further evaluation and management. [facility] Disclaimer: The information contained in this section may have been updated after the patient was seen, as this information can be updated by other users. Medical History (Updated 03/27/25 @ 12:04 by Silvio Hill MD) Pleural effusion, bilateral Pneumonia Encounter for monitoring digoxin therapy Diabetic toe ulcer Atrial flutter Acute on chronic heart failure with preserved ejection fraction (HFpEF) HLD (hyperlipidemia) GERD (gastroesophageal reflux disease) CAD (coronary artery disease) CHF (congestive heart failure) Acute respiratory failure with hypoxia and hypercarbia Hypertension Chronic venous stasis dermatitis of both lower extremities HIV (human immunodeficiency virus infection) Diabetes mellitus, type 2 Closed fracture of neck of left humerus GI bleed due to NSAIDs Morbid obesity with BMI of 45.0-49.9, adult Family History Other No significant family history Social History Smoking Status: Never smoker second hand exposure: No alcohol intake: never substance use type: denies use current occupational status: retired Travel in the last 8 weeks?: None household members: spouse and family housing: house current occupational exposures/hazards: No caffeine: Yes Have you lived/traveled outside US in past 30 days?: No Contact w/someone who lives/traveled outside US past 30 days?: No Exposure to someone with infectious disease in past 14 days?: No Do you have a fever (greater than 100.4 F or 38 C)?: No Have you tested positive for COVID-19?: No Exposed to someone with COVID-19 in past 14 days?: No Do you have a sore throat?: No Do you have a cough?: No Do you have any weakness?: No Do you have any diarrhea?: No Are you experiencing any unusual bleeding?: No Do you have any muscle aches/pain?: No Do you have any abdominal pain?: No Are you experiencing loss of taste or smell?: No Review of Systems Review of Systems Review of systems:: unable to obtain Review of systems (narrative): Unable to arouse Pulmonology Exam Inpatient Vital signs and Labs for Last 24 Hours: Temp Pulse Resp BP Pulse Ox O2 Del Method O2 Flow Rate 97.2 F L 52 L 8 L 133/71 95 BiPAP 20 03/27/25 08:00 03/27/25 08:00 03/27/25 08:00 03/27/25 08:00 03/27/25 08:00 03/27/25 08:00 03/27/25 05:00 FiO2 30 03/27/25 06:14 Laboratory Results - last 24 hr 03/26/25 18:34: VBG pH 7.30 L, VBG pCO2 82.9 H, VBG pO2 28.7, VBG HCO3 39.7 H, VBG Total CO2 42.2 H, VBG O2 Saturation 49.0 L, VBG Base Excess 9.8 H, VBG Lactic Acid 3.0 H 03/26/25 18:36: WBC 17.2 H, RBC 4.26 L, Hgb 12.3 L, Hct 38.6 L, MCV 90.6, MCH 28.9, MCHC 31.9, RDW 13.2, Plt Count 232, MPV 9.3, Neut % (Auto) 84.7 H, Lymph % (Auto) 6.7 L, Rutherford % (Auto) 6.2, Eos % (Auto) 1.6, Baso % (Auto) 0.3, Neut # (Auto) 14.5 H, Lymph # (Auto) 1.2, Rutherford # (Auto) 1.1 H, Eos # (Auto) 0.3, Baso # (Auto) 0.1, Total Counted 100, Neutrophils % (Manual) 78 H, Lymphocytes % (Manual) 12, Monocytes % (Manual) 6, Eosinophils % (Manual) 1, Basophils % (Manual) 3.0 H, Platelet Estimate Normal, Polychromasia 1+, Poikilocytosis 1+, Basophilic Stippling 1+, Sodium 128 L, Potassium 4.2, Chloride 80 L, Carbon Dioxide 43 H*, Anion Gap 9.2, BUN 21 H, Creatinine 1.20, Estimated Creat Clear 94, Estimated GFR 60, Est GFR ( Amer) 72, Glucose 302 H, Calcium 8.7, Total Bilirubin 1.0, AST 31, ALT 15, Alkaline Phosphatase 303 H, Troponin I < 0.01, NT-Pro-B Natriuret Pep 2600 H, Total Protein 8.3 H, Albumin 3.8, Globulin 4.5 H, Albumin/Globulin Ratio 0.8 L, Lipase 71, Procalcitonin 0.145 03/26/25 20:53: VBG pH 7.29 L, VBG pCO2 84.8 H, VBG pO2 53.7 H, VBG HCO3 40.0 H, VBG Total CO2 42.6 H, VBG O2 Saturation 84.2 H, VBG Base Excess 10.3 H, VBG Lactic Acid 1.5 03/26/25 21:36: Troponin I < 0.01 03/26/25 22:33: POC Glucose 282 H 03/26/25 23:00: Lactate 1.1 03/27/25 00:00: Specimen Source Right radial, O2 % 25, ABG pH 7.34 L, ABG pCO2 69.1 H, ABG pO2 65.6 L, ABG HCO3 36.6 H, ABG Total CO2 38.7 H, ABG O2 Saturation 91, ABG Base Excess 8.6 H, Jack Test Acceptable, Vent Rate 22 03/27/25 01:00: Troponin I < 0.01 03/27/25 04:27: WBC 12.1 H D, RBC 3.94 L, Hgb 11.3 L, Hct 35.6 L, MCV 90.4, MCH 28.7, MCHC 31.7 L, RDW 13.2, Plt Count 179, MPV 9.7, Neut % (Auto) 94.4 H, Lymph % (Auto) 3.8 L, Rutherford % (Auto) 1.2 L, Eos % (Auto) 0.0 L, Baso % (Auto) 0.2, Neut # (Auto) 11.5 H, Lymph # (Auto) 0.5 L, Rutherford # (Auto) 0.2, Eos # (Auto) 0.0, Baso # (Auto) 0.0, Total Counted 100, Neutrophils % (Manual) 90 H, Band Neutrophils % 1, Lymphocytes % (Manual) 3 L, Monocytes % (Manual) 6, Sodium 129 L, Potassium 5.0, Chloride 86 L, Carbon Dioxide 37 H, Anion Gap 11.0, BUN 23 H, Creatinine 1.10, Estimated Creat Clear 97, Estimated GFR 66, Est GFR ( Amer) 80, Glucose 358 H, Calcium 8.6, Magnesium 2.1, Total Bilirubin 0.5, AST 25, ALT 12, Alkaline Phosphatase 262 H, Total Protein 6.9, Albumin 2.8 L D, Globulin 4.1 H, Albumin/Globulin Ratio 0.7 L, Digoxin 1.30 03/27/25 05:25: POC Glucose 353 H* I & O for Labs for Last 24 Hours: Intake & Output 03/24/25 03/25/25 03/26/25 03/27/25 23:59 23:59 23:59 23:59 Output Total 650 / 650 Balance -650 / -650 Weight 242 lb 15.19 oz 242 lb 15.19 oz Constitutional: Present severe distress Head: Present normocephalic and atraumatic ENT: Present normal exam, normal oropharynx and mucous membranes moist Neck: Present normal inspection and full ROM Respiratory: Present prolonged expiratory phase, rhonchi, wheezes, crackles, diminished air movement and able to speak in complete sentences Cardiac: Present S1/S2, Tachycardia and radial pulses present GI: Present soft and distention; Absent tenderness or guarding Skin: Present intact; Absent cyanosis or jaundice Neuro: Absent alert, awake or oriented x 3 Extremities: Present normal inspection; Absent clubbing or cyanosis Psychiatric: Present unable to assess Meds Home Medications and Allergies Home Medications ?Medication ?Instructions ?Recorded ?Confirmed ?Type finasteride 5 mg tablet 5 mg PO DAILY 11/13/18 03/27/25 History tamsulosin 0.4 mg capsule 0.4 mg PO HS 01/06/20 03/27/25 History methocarbamol 750 mg tablet 750 mg PO Q6HP PRN Muscle Spasm 11/26/20 03/27/25 History cholecalciferol (vitamin D3) 25 25 mcg PO DAILY 12/30/20 03/27/25 History mcg (1,000 unit) capsule venlafaxine 150 mg 150 mg PO DAILY 09/16/23 03/27/25 History capsule,extended release 24 hr (Effexor XR) albuterol sulfate 90 mcg/actuation 1 inh inhalation QIDP PRN 08/20/24 03/27/25 History aerosol inhaler Shortness Of Breath sitagliptin 100 mg tablet 100 mg PO DAILY 08/20/24 03/27/25 History pantoprazole 40 mg tablet,delayed 40 mg PO DAILY 30 days #0 tabs 08/23/24 03/27/25 Rx release aspirin 81 mg capsule 81 mg PO DAILY 11/04/24 03/27/25 History bictegravir 50 mg-emtricitabine 1 tab PO DAILY 11/04/24 03/27/25 History 200 mg-tenofovir alafenam 25 mg tablet (Biktarvy) gabapentin 300 mg capsule 600 mg PO 1700 11/04/24 03/27/25 History gabapentin 300 mg capsule 900 mg PO 0900,2100 11/04/24 03/27/25 History lidocaine 5 % topical patch 2 patch topical DAILY 11/04/24 03/27/25 History tiotropium 2.5 mcg-olodaterol 2.5 2 puff inhalation DAILY 11/04/24 03/27/25 History mcg/actuation mist for inhalation (Stiolto Respimat) bumetanide 2 mg tablet 2 mg PO BIDL 30 days #60 tabs 11/05/24 03/27/25 Rx Bifidobacterium longum 10 million 10 cell PO DAILY 02/28/25 03/27/25 History cell capsule (Align (B.longum)) buprenorphine 7.5 mcg/hour weekly 1 patch transdermal WEEKLY 02/28/25 03/27/25 History transdermal patch digoxin 125 mcg (0.125 mg) tablet 125 mcg PO DAILY 30 days #30 tabs 03/03/25 03/27/25 Rx fish, borage, flaxseed oils-omega 1 cap PO DAILY 03/27/25 03/27/25 History 3,6,9 comb no.1 1,200 mg capsule ([place] 3-6-9) metoprolol succinate 100 mg 100 mg PO DAILY 03/27/25 03/27/25 History tablet,extended release 24 hr New Prescriptions to Start Prescriptions: Allergies Allergy/AdvReac Type Severity Reaction Status Date / Time SANDRA Inhibitors Allergy Unknown Unknown Verified 02/27/25 20:15 allergy reaction clofibrate Allergy Unknown Unknown Verified 02/27/25 20:15 allergy reaction enalapril Allergy Unknown Unknown Verified 02/27/25 20:15 allergy reaction erythromycin base Allergy Unknown Unknown Verified 02/27/25 20:15 allergy reaction gemfibrozil Allergy Unknown Unknown Verified 02/27/25 20:15 allergy reaction hepatitis A virus vaccine Allergy Unknown Unknown Verified 02/27/25 20:15 allergy reaction hydralazine Allergy Unknown Unknown Verified 02/27/25 20:15 allergy reaction Macrolide Antibiotics Allergy Unknown Unknown Verified 02/27/25 20:15 allergy reaction pravastatin (From Pravachol) Allergy Unknown Unknown Verified 02/27/25 20:15 allergy reaction Yeiorlj-EAE-DtZ Reductase Allergy Unknown Unknown Verified 02/27/25 20:15 Inhibitor (Fujphmw-Twu-Gxh allergy Reductase Inhibitor) reaction Results Laboratory Findings 03/27/25 04:27 03/27/25 04:27 ABG ABG pH 7.34 mmol/L (7.35-7.45) L 03/27/25 00:00 ABG pCO2 69.1 mmhg (35.0-45.0) H 03/27/25 00:00 ABG pO2 65.6 mmhg (80-100) L 03/27/25 00:00 ABG O2 Saturation 91 % (90-100) 03/27/25 00:00 Abnormal lab findings: Abnormal Labs 03/26/25 03/26/25 03/26/25 18:34 18:36 20:53 WBC 17.2 H RBC 4.26 L Hgb 12.3 L Hct 38.6 L MCHC Neut % (Auto) 84.7 H Lymph % (Auto) 6.7 L Rutherford % (Auto) Eos % (Auto) Neut # (Auto) 14.5 H Lymph # (Auto) Rutherford # (Auto) 1.1 H Neutrophils % (Manual) 78 H Lymphocytes % (Manual) Basophils % (Manual) 3.0 H ABG pH ABG pCO2 ABG pO2 ABG HCO3 ABG Total CO2 ABG Base Excess VBG pH 7.30 L 7.29 L VBG pCO2 82.9 H 84.8 H VBG pO2 53.7 H VBG HCO3 39.7 H 40.0 H VBG Total CO2 42.2 H 42.6 H VBG O2 Saturation 49.0 L 84.2 H VBG Base Excess 9.8 H 10.3 H VBG Lactic Acid 3.0 H Sodium 128 L Chloride 80 L Carbon Dioxide 43 H* BUN 21 H Glucose 302 H POC Glucose Alkaline Phosphatase 303 H NT-Pro-B Natriuret Pep 2600 H Total Protein 8.3 H Albumin Globulin 4.5 H Albumin/Globulin Ratio 0.8 L 03/26/25 03/27/25 03/27/25 22:33 00:00 04:27 WBC 12.1 H D RBC 3.94 L Hgb 11.3 L Hct 35.6 L MCHC 31.7 L Neut % (Auto) 94.4 H Lymph % (Auto) 3.8 L Rutherford % (Auto) 1.2 L Eos % (Auto) 0.0 L Neut # (Auto) 11.5 H Lymph # (Auto) 0.5 L Rutherford # (Auto) Neutrophils % (Manual) 90 H Lymphocytes % (Manual) 3 L Basophils % (Manual) ABG pH 7.34 L ABG pCO2 69.1 H ABG pO2 65.6 L ABG HCO3 36.6 H ABG Total CO2 38.7 H ABG Base Excess 8.6 H VBG pH VBG pCO2 VBG pO2 VBG HCO3 VBG Total CO2 VBG O2 Saturation VBG Base Excess VBG Lactic Acid Sodium 129 L Chloride 86 L Carbon Dioxide 37 H BUN 23 H Glucose 358 H POC Glucose 282 H Alkaline Phosphatase 262 H NT-Pro-B Natriuret Pep Total Protein Albumin 2.8 L D Globulin 4.1 H Albumin/Globulin Ratio 0.7 L 03/27/25 05:25 WBC RBC Hgb Hct MCHC Neut % (Auto) Lymph % (Auto) Rutherford % (Auto) Eos % (Auto) Neut # (Auto) Lymph # (Auto) Rutherford # (Auto) Neutrophils % (Manual) Lymphocytes % (Manual) Basophils % (Manual) ABG pH ABG pCO2 ABG pO2 ABG HCO3 ABG Total CO2 ABG Base Excess VBG pH VBG pCO2 VBG pO2 VBG HCO3 VBG Total CO2 VBG O2 Saturation VBG Base Excess VBG Lactic Acid Sodium Chloride Carbon Dioxide BUN Glucose POC Glucose 353 H* Alkaline Phosphatase NT-Pro-B Natriuret Pep Total Protein Albumin Globulin Albumin/Globulin Ratio Assessment and Plan *Assessment and plan (1) Acute on chronic respiratory failure with hypoxia and hypercapnia: Status: Resolved Category: Medical Code(s): J96.21 - Acute and chronic respiratory failure with hypoxia; J96.22 - Acute and chronic respiratory failure with hypercapnia (2) Pneumonia: Status: Acute Category: Medical Code(s): J18.9 - Pneumonia, unspecified organism (3) Pleural effusion, bilateral: Status: Acute Category: Medical Code(s): J90 - Pleural effusion, not elsewhere classified Plan Much of the history is obtained from chart review. Patient this morning unable to arouse despite subsequent venous blood gas did not show any obvious evidence of acute hypercarbic respiratory failure. Mr. Love is a 69-year-old male with report history of HIV chronic hypoxic respiratory failure A-fib COPD presented to the ER with worsening respiratory distress and pulmonary was called for further evaluation and management. Afebrile. Hemodynamically stable. Neutrophilic predominant leukocytosis. Blood gas upon admission chronic hypercarbic respiratory failure with a pH of 7.30 and PCO2 of 82.9 venous blood gas. Chest x-ray upon admission suboptimal, concerning for bilateral lower lobe atelectasis on possible small effusions. CTA from 02/27/2025 showed bilateral pleural effusions and lower lobe atelectasis. Low lung volumes. The left lower lobe lobulated pleural-based appeared to be chronic remained stable dating back to July 2024. CT chest from January 2020 normal lung parenchyma normal lung volumes. CT abdomen from recent admission also concerning for left lower anterior abdominal wall abscess/soft tissue infection. Venous blood gas from this morning chronic hypercarbic respiratory failure the pH is 7.4 and a PCO2 of 65.7. Pro-Cleve on this admission within normal limits at 0.145 Plan: Patient this morning unable to arouse despite subsequent venous blood gas did not show any obvious evidence of acute hypercarbic respiratory failure. Recommend evaluate for other possible etiologies of altered mentation including polypharmacy Given the pleural effusions being chronic and has been there since Jul 2024 and relatively stable, recommend evaluation for other possible etiologies of patient's leukocytosis including possible abdominal wall abscess as seen on his most recent CT Abd Continue noninvasive ventilatory therapy pending repeat VBG. Saturating 97% on 30% FiO2, weaned to 21%. Will also follow with echocardiogram. Lasix 40 mg IV once Follow-up with respiratory viral PCR panel and nasal MRSA PCR. Continue cefepime pending sputum cultures with sputum induction Incentive spirometry for 12-hour while awake off BiPAP next DuoNebs every 6 hours along with Pulmicort every 12 scheduled. # Thank you for involving pulmonary in this patient care. Will continue to follow
[2025-03-27] MEDS: DIGOXIN 0.125MG TABLET 125 MCG PO (10:23)
[2025-03-27] MEDS: BICTEGRAVIR PO (10:23)
[2025-03-27] MEDS: EMTRICITABINE PO (10:23)
[2025-03-27] MEDS: TENOFOVIR ALAFENAMIDE PO (10:23)
--- NOTE | 2025-03-27 10:34 | HMH.OTEV ---
OT Inpatient Evaluation Rehab OT IP Evaluation Start: 03/26/25 23:25 Freq: ONCE Status: Active Protocol: Document 03/27/25 10:23 [facility] (Rec: 03/27/25 10:34 [facility] [id number]) Rehab OT IP Assessment Subjective History Pt oriented x 3 on arrival. Pt's daughter present and supportive. Pt admitted on 03/26/25 due to COPD exacerbation. History and physical: Mr. Love is a 69-year-old male with history of HIV , chronic hypoxic respiratory failure, A-fib, diabetes, COPD. Patient has had progressive decline over the past several months to year. He presented to the ER today due to worsening shortness of breath. Daughter who is a nurse and helps care for him states that over the past week he has had increased cough, congestion, wheeze and shortness of breath. He had gone up on his home oxygen and increased nebulizer use with no benefit . Became more short of breath today necessitating presentation to the ER. Was also more confused. Home health nurse recommended to go to the ER because of the confusion. On arrival to the ER, found to be hypoxic and hypercapnic. pH 7.3, pCO2 80 on VBG. BNP 2600. Placed on BiPAP with persistent hypercapnia but improved tolerance and increased tidal volumes. White count elevated at 17. Given report of increased production of cough and sputum, concern for pneumonia with acute on chronic hypoxic and hypercapnic respiratory failure. Initiated on doxycycline in the ED. Medicine consulted for admission and further management Subjective I can't stand up right now. Prior to being in the hospital, pt lived at home with his . Pt reports he required assistance with dressing and bathing. He was dependent upon family for completion of IADLs. Pt's daughter comes daily and assists with their needs. Pt uses a rolling walker during functional transfers. Objective Patient Orientation Person,Place,Birthday Right Upper Min Limitation <25% Extremity Gross ROM Left Upper Extremity Mod Limitation 50% Gross ROM Shoulder ROM Muscle Weakness Limitations Elbow ROM Muscle Weakness Limitations Wrist Limitations of Muscle Weakness Range of Motion Bed Mobility bed mobility-scooting,bed mobility - supine/sit Assist Level Moderate x 2 (50% assist) Rehab OT IP prob,goals,plan Problems Date of Evaluation: 03/27/25 OT IP Problems Bed Mobility,Transfers,Gait,Balance,Self care,Safety Rehab Potential Rehab Potential Good Equipment Needs Assistive Devices Rolling / Wheeled Walker Plan OT intervention Plan Bed Mobility,Transfers,Balance,Self care,Safety, Therapeutic Exercise OT Plan Frequency Daily Duration LOS Discharge Goals Bed Mobility Ability Assistance x1 Sit to Stand Chair Moderate x 1 (50% assist) Transfer Ability Chair Transfer Moderate x 1 (50% assist) Ability Chair Transfer Sit to/from Ambulatory Technique Chair Transfer Rolling Walker Assistive Devices Lower Body Dressing Moderate Assistance Ability Upper Body Dressing Moderate Assistance Ability Performing Toilet Moderate Assistance Hygiene Ability Overall Commode/ Minimal Assistance Toilet Transfer Ability Commode/Toilet Sit to/from Ambulatory Transfer Technique Discharge Plan OT Discharge Plan Pt will continue to be seen for OT services while at [facility]. Therapist recommends pt receive short term rehab at [facility] following discharge. However, pt is very reluctant to this plan. If he returns home with family assistance, therapist recommends OT evaluation. Continued skilled therapy is important in order for patient to improve strength, safety, endurance, ADL independence, and functional transfers to reach PLOF. Eval Complexity Eval Charge Codes 00277 - Moderate Complexity PHYSICIAN CERTIFICATION: I certify the specified therapy services for Rachid Love JR are required, authorized, and reviewed every 30 days.
[2025-03-27 11:44] LABS: Adenovirus,PCR Not Detected (NotDetected); Chlamydophila Pneumoniae, PCR Not Detected (NotDetected); Coronavirus 19, PCR Not Detected (NotDetected); Coronovirus HKU1,PCR Not Detected (NotDetected); Influenza A, PCR Not Detected (NotDetected); Influenza AH1, 2009 Not Detected (NotDetected); Influenza AH1, PCR Not Detected (NotDetected); Influenza AH3,PCR Not Detected (NotDetected); Influenza B, PCR Not Detected (NotDetected); Mycoplasma Pneumoniae, PCR Not Detected (NotDetected); Parainfluenza 1, PCR Not Detected (NotDetected); Parainfluenza 2, PCR Not Detected (NotDetected); Parainfluenza 3, PCR Not Detected (NotDetected); Parainfluenza 4, PCR Not Detected (NotDetected)
[2025-03-27] MEDS: SODIUM CHLORIDE 3% 15ML NEB 3 ML IH (11:46)
[2025-03-27 11:50] LABS: VBG PCO2 65.7 mmol/L (35-51); VBG PH 7.40 mmol/L (7.31-7.41)
[2025-03-27 11:51] LABS: Lactate Venous 3.0 mmol/L (0.4-2.0); VBG HCO3 39.6 mmol/L (23-30); VBG PO2 64.6 mmol/L (28-40)
--- NOTE | 2025-03-27 11:55 | CA_ITS ---
APPROVED REPORT EXAM: Comprehensive 2D, Doppler, and color-flow Echocardiogram Inspector Receiving: Shannon Chapa CRT Ht: 6 ft 3 in Wt: 242lbs BSA: 2.38 BP: 129/61 mmHg Indications: Congestive Heart Failure, COPD, Atrial Fibrillation, Diabetes, Hyperlipidemia, Hypertension/HDD, HIV+, on Bipap 2D Dimensions LA Volume 75.20 mL LA Volume Index 30.80 mL/m2 (M/F) 16-34 M-Mode Dimensions RVDd 3.18 cm (0.9-2.6) LA Diam 4.67 cm (1.9-4.0) LVDd 6.45 cm (3.5-5.7) LVDs 5.12 cm (3.5-5.7) IVSd 1.53 cm (0.6-1.1) PWd 1.01 cm (0.6-1.1) EF (Teich) 41.10% FS 20.60% EDV (Teich) 212.20 mL TAPSE 2.15 (<1.7) ESV (Teich) 124.90 mL LV Diastology E Decel Time 147 (160-240 msec) E/A Ratio 2.09 MED A' 4.90 cm/s LAT A' 4.20 cm/s Aortic Valve LINDEN Index 0.91 cm2/m2 AoV Peak Gustavo. 218.0 (50-130 cm/s) AO Peak GR. 18.90 mmHg AO Mean GR. 10.70 (<5 mmHg) AO VTI 37.9 (18-25 cm) LINDEN (VTI) 2.21 (2.5-4.5 cm2) Mitral Valve MV E Max Gustavo. 117.0 (40-130 cm/s) MV A Velocity 56.0 (40-130 cm/s) E/A Ratio 2.09 MV PHT 43.0 ms Tricuspid Valve TR P. Velocity 294.00 cm/s RAP Estimate 10.00 mmHg RVSP 44.60 mmHg Left Ventricle The left ventricle is normal size. The left ventricular systolic function is normal. The left ventricular ejection fraction is within the normal range. There is increased LV wall thickness. There is normal LV segmental wall motion. The left ventricular diastolic function is normal. LVEF is 55%. Right Ventricle The right ventricle is normal size. The right ventricular systolic function is normal. Atria Left atrium is mildly dilated. Right atrium is mildly dilated. There is no Doppler evidence of interatrial shunt. Aortic Valve The aortic valve is mildly thickened. Borderline aortic stenosis is present. LINDEN by continuity equation is 2.0 cm2. Peak velocity 2.1 m/s. Mean AV gradient is 11 mmHg. Max AV gradient is 20 mmHg. Trace aortic regurgitation. Mitral Valve The mitral valve is normal in structure. No evidence of mitral valve stenosis. Trace mitral regurgitation. Tricuspid Valve Tricuspid valve is grossly normal in structure and function. Mild tricuspid regurgitation. RVSP is 25-30 mmHg. Pulmonic Valve The pulmonary valve is normal in structure. Trace pulmonic regurgitation. Great Vessels The aortic root is normal in size. IVC is normal in size and collapses >50% with inspiration. Pericardium There is no pericardial effusion. Other Information Study Quality: Fair Conclusion Normal biventricular systolic function. Mild biatrial dilation. Mild TR. Borderline (LINDEN by continuity equation is 2.0 cm2. Peak velocity 2.1 m/s. Mean AV gradient is 11 mmHg. Max AV gradient is 20 mmHg). Electronically signed by : Aniya Page MD 03/29/2025 10:45:11
--- NOTE | 2025-03-27 12:01 | PC.NURSE ---
Primary RN notified of patients sugar of 307 from his Dexcom. Primary RN notified notified that patient does not have any SSI ordered. Continuation of care plan.
--- NOTE | 2025-03-27 12:04 | HMH.PTEV ---
Physical Therapy Evaluation Rehab PT IP Evaluation Start: 03/26/25 23:25 Freq: ONCE Status: Active Protocol: Document 03/27/25 11:59 YVON (Rec: 03/27/25 12:04 PHORANAYELI [id number]) Subjective/History History History 69-year-old male with history of HIV, chronic hypoxic respiratory failure, A-fib, diabetes, COPD. Patient has had progressive decline over the past several months to year. He presented to the ER today due to worsening shortness of breath. Daughter who is a nurse and helps care for him states that over the past week he has had increased cough, congestion, wheeze and shortness of breath. He had gone up on his home oxygen and increased nebulizer use with no benefit. Became more short of breath today necessitating presentation to the ER. Was also more confused. Home health nurse recommended to go to the ER because of the confusion. On arrival to the ER, found to be hypoxic and hypercapnic. pH 7.3, pCO2 80 on VBG. BNP 2600. Placed on BiPAP with persistent hypercapnia but improved tolerance and increased tidal volumes. White count elevated at 17. Given report of increased production of cough and sputum, concern for pneumonia with acute on chronic hypoxic and hypercapnic respiratory failure. Initiated on doxycycline in the ED. Medicine consulted for admission and further management. Pt reports he lives with sife, no DEANNA the home, and is generally independent with mobility, but requires assist with ADLs. Subjective Subjective Currently pt c/o pain in B LE, low back, L arm with any movement. He agrees to sit at EOB, but refused OOB to chair due to increased pain. [facility] How much help from another person do you currently need... Turning from your A little back to your side while in a flat bed without using bedrails? Moving from lying on A lot back to sitting on the side of a flat bed without using bedrails? Moving to and from a A lot bed to a chair ( including a wheelchair)? Standing up from a A lot chair using your arms? (e.g., wheelchair, bedside chair) Walking in hospital A lot room? Climbing 3-5 steps A lot with a railing? Mobility Score 13 Mobility Level [facility] Mobility 4 Move to chair/commode Mobility Calculator Rehab PT IP Eval Objective Appearance Patient Behavior Appropriate Patient Orientation Person,Place,Time Difficulty following none instructions Speech Pattern Clear Ambulation Patient Able to No Ambulate Balance Ability to Arise Able, uses arms to help Sitting Balance Leans or slides in chair Dynamic Sitting Poor Balance Ability Transfers Bed Transfer Ability Moderate x 2 (50% assist) Rehab PT IP prob,goals,plan Problems Date of Evaluation: 03/27/25 PT IP Problems Bed Mobility,Transfers,Gait Rehab Potential Rehab Potential Fair Plan PT Intervention Plan Bed Mobility,Transfers,Gait,Therapeutic Exercise PT Plan Frequency Daily Duration LOS Discharge Goals Bed Transfer Ability Minimal x 2 (25% assist) Sit to Stand Chair Maximum x 1 (75% assist) Transfer Ability Discharge Plan PT Discharge Plan Pt is currently most appropriate for rehab placement once medically stable for d/c. Skilled therapy services are indicated to improve strength and transfers in order to return pt to [facility] with improved QOL. Eval Complexity Eval Charge Codes 97596 - High Complexity PHYSICIAN CERTIFICATION: I certify the specified therapy services for Rachid Rubalcavaquin MEDINA are required, authorized, and reviewed every 30 days.
--- NOTE | 2025-03-27 12:05 | SW/DCPLANNER ---
PT/OT recommend SNF upon discharge from the hospital. Spoke with patient and daughter. Patient is adamant that he will not go to SNF. He will only go home and the [facility] provides home health care.
--- NOTE | 2025-03-27 14:04 | EXP.CARD.CON ---
History of Present Illness History of Present Illness Consult date: 03/27/25 Requesting physician: Talha Hernandez Consult reason: shortness of breath Chief complaint: Shortness of breath, cough, confusion History of present illness: This is a 69-year-old gentleman who presented to the emergency department with shortness of breath, productive cough and confusion. He has a past medical history of HIV, chronic hypoxic respiratory failure, atrial fibrillation and diabetes. The patient has been progressively declining over the last several weeks and has had an increased cough with chest congestion, wheezing and shortness of breath. He has increased his oxygen demands at home and has been using his nebulizer treatments with no improvement. The patient got severely short of breath on the day of his presentation to the emergency department. His home health nurse recommended that he go to the ER because he was also confused which was unusual for him. When he got to the emergency department he was found to be hypoxemic and hypercapnic with a pH of 7.3. His BNP was elevated at 2600. He was placed on BiPAP and his symptoms improved. His white blood cell count was elevated at 17. The patient is being treated for pneumonia. Cardiology has been consulted due to bradycardia with known atrial fibrillation/flutter. He denies any chest pain or pressure. He states his shortness of breath is improved and he is feeling much better. He is still short of breath but it is nowhere as bad as it was before coming into the emergency department. He denies any lower extremity edema. He denies any fever, chills, nausea, vomiting or diarrhea. [facility] Disclaimer: The information contained in this section may have been updated after the patient was seen, as this information can be updated by other users. Medical History (Updated 03/27/25 @ 14:16 by Beatriz Talamantes APRN) Bradycardia Pleural effusion, bilateral Pneumonia Encounter for monitoring digoxin therapy Diabetic toe ulcer Atrial flutter Acute on chronic heart failure with preserved ejection fraction (HFpEF) HLD (hyperlipidemia) GERD (gastroesophageal reflux disease) CAD (coronary artery disease) CHF (congestive heart failure) Acute respiratory failure with hypoxia and hypercarbia Hypertension Chronic venous stasis dermatitis of both lower extremities HIV (human immunodeficiency virus infection) Diabetes mellitus, type 2 Closed fracture of neck of left humerus GI bleed due to NSAIDs Morbid obesity with BMI of 45.0-49.9, adult Family History Other No significant family history Social History Smoking Status: Never smoker second hand exposure: No alcohol intake: never substance use type: denies use current occupational status: retired Travel in the last 8 weeks?: None household members: spouse and family housing: house current occupational exposures/hazards: No caffeine: Yes Have you lived/traveled outside [place] in past 30 days?: No Contact w/someone who lives/traveled outside US past 30 days?: No Exposure to someone with infectious disease in past 14 days?: No Do you have a fever (greater than 100.4 F or 38 C)?: No Have you tested positive for COVID-19?: No Exposed to someone with COVID-19 in past 14 days?: No Do you have a sore throat?: No Do you have a cough?: No Do you have any weakness?: No Do you have any diarrhea?: No Are you experiencing any unusual bleeding?: No Do you have any muscle aches/pain?: No Do you have any abdominal pain?: No Are you experiencing loss of taste or smell?: No Review of Systems Review of Systems Review of systems:: pertinent systems reviewed and negative unless documented below Constitutional Constitutional: Reports system reviewed and no additional complaints, except as documented, Reports fatigue, Reports lethargy and Reports weakness Eyes Eyes: Reports system reviewed and no additional complaints, except as documented ENT Ears, Nose, Mouth, and Throat: Reports system reviewed and no additional complaints, except as documented *Cardiovascular Cardiovascular: Reports system reviewed and no additional complaints, except as documented, Denies chest pain, Reports dyspnea and Reports dyspnea on exertion *Respiratory Respiratory: Reports system reviewed and no additional complaints, except as documented, Reports chest congestion, Reports cough, Reports dyspnea, Reports dyspnea on exertion and Reports excessive phlegm production *Gastrointestinal Gastrointestinal: Reports system reviewed and no additional complaints, except as documented *Genitourinary Genitourinary: Reports system reviewed and no additional complaints, except as documented *Musculoskeletal Musculoskeletal: Reports system reviewed and no additional complaints, except as documented Integumentary/Breasts Skin/Breast: Reports system reviewed and no additional complaints, except as documented *Neurologic Neurologic: Reports system reviewed and no additional complaints, except as documented, Reports confusion and Reports weakness Psychiatric Psychiatric: Reports system reviewed and no additional complaints, except as documented and Reports confusion Endocrine Endocrine: Reports system reviewed and no additional complaints, except as documented and Reports fatigue Hematologic/Lymphatic Hematologic/Lymphatic: Reports system reviewed and no additional complaints, except as documented Allergic/Immunologic Allergic/Immunologic: Reports system reviewed and no additional complaints, except as documented Exam Data for Last 24 hours Vital signs and Labs for Last 24 Hours: Temp Pulse Resp BP Pulse Ox O2 Del Method O2 Flow Rate 97.1 F L 60 17 118/54 L 95 BiPAP 4 03/27/25 12:00 03/27/25 12:00 03/27/25 12:00 03/27/25 12:00 03/27/25 12:00 03/27/25 12:31 03/27/25 09:20 FiO2 30 03/27/25 11:00 Laboratory Results - last 24 hr 03/26/25 18:34: VBG pH 7.30 L, VBG pCO2 82.9 H, VBG pO2 28.7, VBG HCO3 39.7 H, VBG Total CO2 42.2 H, VBG O2 Saturation 49.0 L, VBG Base Excess 9.8 H, VBG Lactic Acid 3.0 H 03/26/25 18:36: WBC 17.2 H, RBC 4.26 L, Hgb 12.3 L, Hct 38.6 L, MCV 90.6, MCH 28.9, MCHC 31.9, RDW 13.2, Plt Count 232, MPV 9.3, Neut % (Auto) 84.7 H, Lymph % (Auto) 6.7 L, [place] % (Auto) 6.2, Eos % (Auto) 1.6, Baso % (Auto) 0.3, Neut # (Auto) 14.5 H, Lymph # (Auto) 1.2, [place] # (Auto) 1.1 H, Eos # (Auto) 0.3, Baso # (Auto) 0.1, Total Counted 100, Neutrophils % (Manual) 78 H, Lymphocytes % (Manual) 12, Monocytes % (Manual) 6, Eosinophils % (Manual) 1, Basophils % (Manual) 3.0 H, Platelet Estimate Normal, Polychromasia 1+, Poikilocytosis 1+, Basophilic Stippling 1+, Sodium 128 L, Potassium 4.2, Chloride 80 L, Carbon Dioxide 43 H*, Anion Gap 9.2, BUN 21 H, Creatinine 1.20, Estimated Creat Clear 94, Estimated GFR 60, Est GFR ( Amer) 72, Glucose 302 H, Calcium 8.7, Total Bilirubin 1.0, AST 31, ALT 15, Alkaline Phosphatase 303 H, Troponin I < 0.01, NT-Pro-B Natriuret Pep 2600 H, Total Protein 8.3 H, Albumin 3.8, Globulin 4.5 H, Albumin/Globulin Ratio 0.8 L, Lipase 71, Procalcitonin 0.145 03/26/25 20:53: VBG pH 7.29 L, VBG pCO2 84.8 H, VBG pO2 53.7 H, VBG HCO3 40.0 H, VBG Total CO2 42.6 H, VBG O2 Saturation 84.2 H, VBG Base Excess 10.3 H, VBG Lactic Acid 1.5 03/26/25 21:36: Troponin I < 0.01 03/26/25 22:33: POC Glucose 282 H 03/26/25 23:00: Lactate 1.1 03/27/25 00:00: Specimen Source Right radial, O2 % 25, ABG pH 7.34 L, ABG pCO2 69.1 H, ABG pO2 65.6 L, ABG HCO3 36.6 H, ABG Total CO2 38.7 H, ABG O2 Saturation 91, ABG Base Excess 8.6 H, Jack Test Acceptable, Vent Rate 22 03/27/25 01:00: Troponin I < 0.01 03/27/25 04:27: WBC 12.1 H D, RBC 3.94 L, Hgb 11.3 L, Hct 35.6 L, MCV 90.4, MCH 28.7, MCHC 31.7 L, RDW 13.2, Plt Count 179, MPV 9.7, Neut % (Auto) 94.4 H, Lymph % (Auto) 3.8 L, [place] % (Auto) 1.2 L, Eos % (Auto) 0.0 L, Baso % (Auto) 0.2, Neut # (Auto) 11.5 H, Lymph # (Auto) 0.5 L, [place] # (Auto) 0.2, Eos # (Auto) 0.0, Baso # (Auto) 0.0, Total Counted 100, Neutrophils % (Manual) 90 H, Band Neutrophils % 1, Lymphocytes % (Manual) 3 L, Monocytes % (Manual) 6, Sodium 129 L, Potassium 5.0, Chloride 86 L, Carbon Dioxide 37 H, Anion Gap 11.0, BUN 23 H, Creatinine 1.10, Estimated Creat Clear 97, Estimated GFR 66, Est GFR ( Amer) 80, Glucose 358 H, Calcium 8.6, Magnesium 2.1, Total Bilirubin 0.5, AST 25, ALT 12, Alkaline Phosphatase 262 H, Total Protein 6.9, Albumin 2.8 L D, Globulin 4.1 H, Albumin/Globulin Ratio 0.7 L, Digoxin 1.30 03/27/25 05:25: POC Glucose 353 H* 03/27/25 11:20: VBG pH 7.40, VBG pCO2 65.7 H, VBG pO2 64.6 H, VBG HCO3 39.6 H, VBG Total CO2 41.6 H, VBG O2 Saturation 91.8 H, VBG Base Excess 12.2 H, VBG Lactic Acid 3.0 H I & O for Last 24 hours: Intake & Output 03/24/25 03/25/25 03/26/25 03/27/25 23:59 23:59 23:59 23:59 Intake Total 336 / 336 Output Total 650 / 650 Balance -314 / -314 Weight 242 lb 15.19 oz 242 lb 15.19 oz Constitutional Constitutional: obese and chronically ill appearing *Routine HEENT Exam Head: Present normocephalic and atraumatic ENT: Present mucous membranes moist *Routine Neck Exam Neck: Present supple, full ROM and normal carotid upstroke; Absent JVD, carotid bruit or lymphadenopathy *Routine Respiratory Exam Respiratory: Present prolonged expiratory phase, rhonchi, wheezes and crackles *Routine Cardiovascular Exam Cardiovascular: Present Normal S1, Normal S2 and irregularly irregular; Absent murmur or gallop *Routine Abdominal Exam Abdominal: Present soft and normoactive bowel sounds; Absent tenderness, distended or organomegaly *Routine Extremities Exam Extremities: Present edema, full ROM, pulses intact and normal capillary refill; Absent cyanosis or clubbing *Routine Skin Exam Skin: Present intact and warm; Absent erythema *Routine Neurological Exam Neurological: Present alert, oriented X3 and CN II-XII intact; Absent sensory deficit or motor deficit Routine Psychiatric Exam Psychiatric: Present normal affect Meds Home Medications and Allergies Home Medications ?Medication ?Instructions ?Recorded ?Confirmed ?Type finasteride 5 mg tablet 5 mg PO DAILY 11/13/18 03/27/25 History tamsulosin 0.4 mg capsule 0.4 mg PO HS 01/06/20 03/27/25 History methocarbamol 750 mg tablet 750 mg PO Q6HP PRN Muscle Spasm 11/26/20 03/27/25 History cholecalciferol (vitamin D3) 25 25 mcg PO DAILY 12/30/20 03/27/25 History mcg (1,000 unit) capsule venlafaxine 150 mg 150 mg PO DAILY 09/16/23 03/27/25 History capsule,extended release 24 hr (Effexor XR) albuterol sulfate 90 mcg/actuation 1 inh inhalation QIDP PRN 08/20/24 03/27/25 History aerosol inhaler Shortness Of Breath sitagliptin 100 mg tablet 100 mg PO DAILY 08/20/24 03/27/25 History pantoprazole 40 mg tablet,delayed 40 mg PO DAILY 30 days #0 tabs 08/23/24 03/27/25 Rx release aspirin 81 mg capsule 81 mg PO DAILY 11/04/24 03/27/25 History bictegravir 50 mg-emtricitabine 1 tab PO DAILY 11/04/24 03/27/25 History 200 mg-tenofovir alafenam 25 mg tablet (Biktarvy) gabapentin 300 mg capsule 600 mg PO 1700 11/04/24 03/27/25 History gabapentin 300 mg capsule 900 mg PO 0900,2100 11/04/24 03/27/25 History lidocaine 5 % topical patch 2 patch topical DAILY 11/04/24 03/27/25 History tiotropium 2.5 mcg-olodaterol 2.5 2 puff inhalation DAILY 11/04/24 03/27/25 History mcg/actuation mist for inhalation (Stiolto Respimat) bumetanide 2 mg tablet 2 mg PO BIDL 30 days #60 tabs 11/05/24 03/27/25 Rx Bifidobacterium longum 10 million 10 cell PO DAILY 02/28/25 03/27/25 History cell capsule (Align (B.longum)) buprenorphine 7.5 mcg/hour weekly 1 patch transdermal WEEKLY 02/28/25 03/27/25 History transdermal patch digoxin 125 mcg (0.125 mg) tablet 125 mcg PO DAILY 30 days #30 tabs 03/03/25 03/27/25 Rx fish, borage, flaxseed oils-omega 1 cap PO DAILY 03/27/25 03/27/25 History 3,6,9 comb no.1 1,200 mg capsule ([place] 3-6-9) metoprolol succinate 100 mg 100 mg PO DAILY 03/27/25 03/27/25 History tablet,extended release 24 hr New Prescriptions to Start Prescriptions: Allergies Allergy/AdvReac Type Severity Reaction Status Date / Time SANDRA Inhibitors Allergy Unknown Unknown Verified 02/27/25 20:15 allergy reaction clofibrate Allergy Unknown Unknown Verified 02/27/25 20:15 allergy reaction enalapril Allergy Unknown Unknown Verified 02/27/25 20:15 allergy reaction erythromycin base Allergy Unknown Unknown Verified 02/27/25 20:15 allergy reaction gemfibrozil Allergy Unknown Unknown Verified 02/27/25 20:15 allergy reaction hepatitis A virus vaccine Allergy Unknown Unknown Verified 02/27/25 20:15 allergy reaction hydralazine Allergy Unknown Unknown Verified 02/27/25 20:15 allergy reaction Macrolide Antibiotics Allergy Unknown Unknown Verified 02/27/25 20:15 allergy reaction pravastatin (From Pravachol) Allergy Unknown Unknown Verified 02/27/25 20:15 allergy reaction Ccdgmqh-MIR-JwN Reductase Allergy Unknown Unknown Verified 02/27/25 20:15 Inhibitor (Yrqhfrq-Iep-Cgd allergy Reductase Inhibitor) reaction Assessment and Plan *Assessment and plan (1) Acute on chronic heart failure with preserved ejection fraction (HFpEF): Status: Acute Category: Medical Code(s): I50.33 - Acute on chronic diastolic (congestive) heart failure (2) Bradycardia: Status: Resolved Category: Medical Code(s): R00.1 - Bradycardia, unspecified (3) Pleural effusion, bilateral: Status: Acute Category: Medical Code(s): J90 - Pleural effusion, not elsewhere classified (4) Pneumonia: Status: Acute Qualifiers: Pneumonia type: due to unspecified organism Laterality: unspecified laterality Lung location: unspecified part of lung Qualified Code(s): J18.9 - Pneumonia, unspecified organism Category: Medical Code(s): J18.9 - Pneumonia, unspecified organism (5) CO2 retention: Status: Acute Category: Medical Code(s): E87.29 - Other acidosis (6) Hyponatremia: Status: Acute Category: Medical Code(s): E87.1 - Hypo-osmolality and hyponatremia (7) Atrial flutter: Status: Acute Qualifiers: Atrial flutter type: unspecified Qualified Code(s): I48.92 - Unspecified atrial flutter Category: Medical Code(s): I48.92 - Unspecified atrial flutter (8) HIV disease: Status: Chronic Category: Medical Code(s): B20 - Human immunodeficiency virus [HIV] disease (9) Hypertension: Status: Acute Qualifiers: Hypertension type: primary hypertension Qualified Code(s): I10 - Essential (primary) hypertension Category: Medical Code(s): I10 - Essential (primary) hypertension (10) Atrial fibrillation: Status: Acute Qualifiers: Atrial fibrillation type: unspecified chronic Qualified Code(s): I48.20 - Chronic atrial fibrillation, unspecified Category: Medical Code(s): I48.91 - Unspecified atrial fibrillation (11) Type 2 diabetes mellitus with vascular disease: Status: Chronic Category: Medical Code(s): E11.59 - Type 2 diabetes mellitus with other circulatory complications Plan Plan: 1. The patient was admitted to the hospital and is currently being treated for pneumonia. He is on IV antibiotics. Will defer to the hospitalist and pulmonology. 2. The patient has acute on chronic HFpEF. He would benefit from IV diuresis. Will stop oral Bumex and put him on Bumex 1 mg IV twice daily for diuresis. 3. He does have hyponatremia. Will continue to follow this closely. 4. The patient has underlying atrial fibrillation/flutter. He has been bradycardic on this admission with a heart rate in the 50s. Will stop digoxin. 5. If the patient remains bradycardic, consider decreasing his Toprol XL to 75 mg daily. However we are okay with the patient's heart rate being in the 50s as long as it does not drop down into the 40s. 6. The patient does have a known atrial fibrillation/flutter. It may be difficult to have this patient on long-term anticoagulation due to strong interactions with his HIV medications. Currently he is not on anticoagulation and we will leave him off for now due to the interaction with his HIV medications. 7. Once he is euvolemic he would benefit from being on Jardiance 10 mg daily for HFpEF. 8. He denies chest pain or pressure. He ruled out for an [place]. No plans for invasive left cardiac catheterization at this time. 9. His blood pressure is well-controlled at this time. 10. His LDL goal is less than 100. Will get a lipid panel in the morning. 11. Further recommendations will be made pending the patient's response to treatment. Thank you for the opportunity to help participate in the care of this patient. All recommendations and orders are per Dr. Page.
--- NOTE | 2025-03-27 14:20 | PC.NURSE ---
Per , Patient may come off Bipap at this time. Patient can wear Bipap tonight when he goes to bed. Continuation of care plan.
--- NOTE | 2025-03-27 14:20 | PC.NURSE ---
Per , Patient may come off Bipap at this time. Patient can wear Bipap tonight when he goes to bed. Respiratory notified. Patient placed on 4 L NC. Continuation of care plan.
--- NOTE | 2025-03-27 14:40 | PC.NURSE ---
Patients oxygen requirement decreased to 3 L NC at this time. Continuation of care plan.
--- NOTE | 2025-03-27 15:27 | PC.NURSE ---
Patients oxygen requirement weaned to 2 L NC at this time. Continuation of care plan.
[2025-03-27 15:50] LABS: Reflex Lactic Add Lactic Reflex
[2025-03-27] MEDS: BUMETANIDE 1MG/4ML VIAL 1 MG IV (16:01)
--- NOTE | 2025-03-27 16:17 | PC.NURSE ---
Pt is moved from ICU status to medsurg status
[2025-03-27] MEDS: humaLOG 100 UNITS/ML 10ML VIAL (SSI) SUBCUT ×2 (16:24→20:58)
--- NOTE | 2025-03-27 16:35 | PC.NURSE ---
Pt moved from step-down status to med-surg status @3221
[2025-03-27 16:42] LABS: Lactic Acid Follow Up (RFLX 1) 2.5 mmol/L (0.7-2.1)
[2025-03-27] MEDS: GABAPENTIN 300MG CAPSULE 600 MG PO (17:19)
[2025-03-27] MEDS: ENOXAPARIN 120MG/0.8ML SYRINGE 110 MG SUBCUT (17:19)
--- NOTE | 2025-03-27 17:50 | EXP.PN ---
Subjective *Date: 03/27/25 *Time: 17:50 Interval history: seen at bedside, complains of SOB and wheezing but mentions it is better since admit, no other complains Exam Data for Last 24 hours Vital signs and Labs for Last 24 Hours: Temp Pulse Resp BP Pulse Ox O2 Del Method O2 Flow Rate 98.3 F 60 16 116/61 94 L Nasal Cannula 2 03/27/25 16:00 03/27/25 16:08 03/27/25 16:00 03/27/25 16:00 03/27/25 16:00 03/27/25 16:32 03/27/25 16:32 FiO2 30 03/27/25 11:00 Laboratory Results - last 24 hr 03/26/25 18:34: VBG pH 7.30 L, VBG pCO2 82.9 H, VBG pO2 28.7, VBG HCO3 39.7 H, VBG Total CO2 42.2 H, VBG O2 Saturation 49.0 L, VBG Base Excess 9.8 H, VBG Lactic Acid 3.0 H 03/26/25 18:36: WBC 17.2 H, RBC 4.26 L, Hgb 12.3 L, Hct 38.6 L, MCV 90.6, MCH 28.9, MCHC 31.9, RDW 13.2, Plt Count 232, MPV 9.3, Neut % (Auto) 84.7 H, Lymph % (Auto) 6.7 L, Calhoun % (Auto) 6.2, Eos % (Auto) 1.6, Baso % (Auto) 0.3, Neut # (Auto) 14.5 H, Lymph # (Auto) 1.2, Calhoun # (Auto) 1.1 H, Eos # (Auto) 0.3, Baso # (Auto) 0.1, Total Counted 100, Neutrophils % (Manual) 78 H, Lymphocytes % (Manual) 12, Monocytes % (Manual) 6, Eosinophils % (Manual) 1, Basophils % (Manual) 3.0 H, Platelet Estimate Normal, Polychromasia 1+, Poikilocytosis 1+, Basophilic Stippling 1+, Sodium 128 L, Potassium 4.2, Chloride 80 L, Carbon Dioxide 43 H*, Anion Gap 9.2, BUN 21 H, Creatinine 1.20, Estimated Creat Clear 94, Estimated GFR 60, Est GFR ( Amer) 72, Glucose 302 H, Calcium 8.7, Total Bilirubin 1.0, AST 31, ALT 15, Alkaline Phosphatase 303 H, Troponin I < 0.01, NT-Pro-B Natriuret Pep 2600 H, Total Protein 8.3 H, Albumin 3.8, Globulin 4.5 H, Albumin/Globulin Ratio 0.8 L, Lipase 71, Procalcitonin 0.145 03/26/25 20:53: VBG pH 7.29 L, VBG pCO2 84.8 H, VBG pO2 53.7 H, VBG HCO3 40.0 H, VBG Total CO2 42.6 H, VBG O2 Saturation 84.2 H, VBG Base Excess 10.3 H, VBG Lactic Acid 1.5 03/26/25 21:36: Troponin I < 0.01 03/26/25 22:33: POC Glucose 282 H 03/26/25 23:00: Lactate 1.1 03/27/25 00:00: Specimen Source Right radial, O2 % 25, ABG pH 7.34 L, ABG pCO2 69.1 H, ABG pO2 65.6 L, ABG HCO3 36.6 H, ABG Total CO2 38.7 H, ABG O2 Saturation 91, ABG Base Excess 8.6 H, Jack Test Acceptable, Vent Rate 22 03/27/25 01:00: Troponin I < 0.01 03/27/25 04:27: WBC 12.1 H D, RBC 3.94 L, Hgb 11.3 L, Hct 35.6 L, MCV 90.4, MCH 28.7, MCHC 31.7 L, RDW 13.2, Plt Count 179, MPV 9.7, Neut % (Auto) 94.4 H, Lymph % (Auto) 3.8 L, Calhoun % (Auto) 1.2 L, Eos % (Auto) 0.0 L, Baso % (Auto) 0.2, Neut # (Auto) 11.5 H, Lymph # (Auto) 0.5 L, Calhoun # (Auto) 0.2, Eos # (Auto) 0.0, Baso # (Auto) 0.0, Total Counted 100, Neutrophils % (Manual) 90 H, Band Neutrophils % 1, Lymphocytes % (Manual) 3 L, Monocytes % (Manual) 6, Sodium 129 L, Potassium 5.0, Chloride 86 L, Carbon Dioxide 37 H, Anion Gap 11.0, BUN 23 H, Creatinine 1.10, Estimated Creat Clear 97, Estimated GFR 66, Est GFR ( Amer) 80, Glucose 358 H, Calcium 8.6, Magnesium 2.1, Total Bilirubin 0.5, AST 25, ALT 12, Alkaline Phosphatase 262 H, Total Protein 6.9, Albumin 2.8 L D, Globulin 4.1 H, Albumin/Globulin Ratio 0.7 L, Digoxin 1.30 03/27/25 05:25: POC Glucose 353 H* 03/27/25 11:17: Chlamy pneumoniae PCR Not detected, Adenovirus (PCR) Not detected, B. pertussis DNA (PCR) Not detected, Coronavirus OC43 (PCR) Not detected, Coronavirus HKU1 (PCR) Not detected, Coronavirus 229E (PCR) Not detected, SARS-CoV-2 (PCR) Not detected, Coronavirus NL63 (PCR) Not detected, Human Metapneumovir PCR Not detected, Influenza A (H1) PCR Not detected, Influ A (H1N1/09) PCR Not detected, Influenza A (H3) PCR Not detected, Influenza Type A (PCR) Not detected, Influenza Type B (PCR) Not detected, M. pneumoniae (PCR) Not detected, Parainfluenza 1 (PCR) Not detected, Parainfluenza 2 (PCR) Not detected, Parainfluenza 3 (PCR) Not detected, Parainfluenza 4 (PCR) Not detected, RSV (PCR) Not detected, Entero/Rhino (PCR) Not detected 03/27/25 11:20: VBG pH 7.40, VBG pCO2 65.7 H, VBG pO2 64.6 H, VBG HCO3 39.6 H, VBG Total CO2 41.6 H, VBG O2 Saturation 91.8 H, VBG Base Excess 12.2 H, VBG Lactic Acid 3.0 H 03/27/25 16:13: Lactate 2.5 H I & O for Last 24 hours: Intake & Output 03/24/25 03/25/25 03/26/25 03/27/25 23:59 23:59 23:59 23:59 Intake Total 336 / 336 Output Total 1250 / 1250 Balance -914 / -914 Weight 110.2 kg 110.2 kg Constitutional Constitutional: no acute distress *Routine HEENT Exam Head: Present normocephalic Eye: Present EOMI and PERRL ENT: Present mucous membranes moist *Routine Neck Exam Neck: Present supple; Absent lymphadenopathy *Routine Respiratory Exam Respiratory: Present decreased breath sounds *Routine Cardiovascular Exam Cardiovascular: Present RRR *Routine Abdominal Exam Abdominal: Present soft and normoactive bowel sounds; Absent tenderness *Routine Extremities Exam Extremities: Absent cyanosis, clubbing or edema *Routine Skin Exam Skin: Present warm; Absent rash *Routine Neurological Exam Neurological: Present alert and oriented X3 Assessment and Plan *Assessment and plan (1) Encephalopathy acute: Status: Resolved Category: Medical Code(s): G93.40 - Encephalopathy, unspecified (2) Pneumonia: Status: Acute Qualifiers: Pneumonia type: due to unspecified organism Laterality: unspecified laterality Lung location: unspecified part of lung Qualified Code(s): J18.9 - Pneumonia, unspecified organism Category: Medical Code(s): J18.9 - Pneumonia, unspecified organism (3) Acute on chronic respiratory failure with hypoxia and hypercapnia: Status: Resolved Category: Medical Code(s): J96.21 - Acute and chronic respiratory failure with hypoxia; J96.22 - Acute and chronic respiratory failure with hypercapnia (4) Type 2 diabetes mellitus with vascular disease: Status: Chronic Category: Medical Code(s): E11.59 - Type 2 diabetes mellitus with other circulatory complications (5) Atrial fibrillation: Status: Acute Qualifiers: Atrial fibrillation type: unspecified chronic Qualified Code(s): I48.20 - Chronic atrial fibrillation, unspecified Category: Medical Code(s): I48.91 - Unspecified atrial fibrillation (6) Chronic diastolic CHF (congestive heart failure): Status: Chronic Category: Medical Code(s): I50.32 - Chronic diastolic (congestive) heart failure (7) HIV disease: Status: Chronic Category: Medical Code(s): B20 - Human immunodeficiency virus [HIV] disease (8) Hypertension: Status: Acute Qualifiers: Hypertension type: primary hypertension Qualified Code(s): I10 - Essential (primary) hypertension Category: Medical Code(s): I10 - Essential (primary) hypertension (9) Hyponatremia: Status: Acute Category: Medical Code(s): E87.1 - Hypo-osmolality and hyponatremia (10) FRANNIE (acute kidney injury): Status: Resolved Category: Medical Code(s): N17.9 - Acute kidney failure, unspecified Plan 69-year-old male with multiple chronic medical conditions including poorly controlled type 2 diabetes, HIV, CHF, COPD, ABEL, pharmacy and frequent falls. Presented to the ER due to confusion, worsening respiratory distress, increased production of sputum. Acute on chronic hypoxemic and hypercapnic respiratory failure Pneumonia Loculated effusions, previously seen on CT 02/27/2025 - Chest x-ray per my review which shows bibasilar opacification. Patient has history of loculated effusions. Concern for this being source of infection versus pneumonia in lower lobes. continue o2 supplementation, on 3L NC, maintaing above 90% on 3L NC continue IV cefepime discussed with pulmonary -Blood cultures obtained, sputum culture pending - Continue Stiolto 2 puffs daily Acute on chronic heart failure with preserved ejection fraction Atrial flutter, rate controlled Hypertension - discussed with cardiology hold digoxin given bradycardia Continue Bumex 2 mg p.o. twice daily - therapeutic anticoagulation with Lovenox. Will discuss risks and benefits of oral DOAC prior to discharge; previously held due to risk of falling and bleeding given patient's recurrent falls at home. Hyponatremia: Close monitoring of sodium levels for improvement HIV: On Biktarvy. Continue home regimen. Levels checked last visit, HIV RNA undetectable on 02/28; absolute CD4 count of 429 Altered Mental Status (Encephalopathy) - Consistent with metabolic encephalopathy due to hypercapnia. Monitor for improvement with treatment of respiratory failure as above - Risk for polypharmacy. Has had toxic encephalopathy in the past due to combo of his medications. Caution with oversedation - Resume gabapentin at decreased dose of 300 mg 3 times a day BPH: Continue finasteride 5 mg daily and tamsulosin 0.4 mg nightly Anxiety: Continue Effexor 150 mg daily DM - ordered ISS DVT PPx - on lovenox
[2025-03-27 18:28] LABS: Reflex Lactic (2 hrs) Add Lactic Reflex
[2025-03-27 19:12] LABS: Lactic Acid Follow up (RFLX 2) 1.7 mmol/L (0.7-2.1)
[2025-03-27] MEDS: PANTOPRAZOLE 40MG TABLET 40 MG PO (20:48)
[2025-03-27] MEDS: TAMSULOSIN 0.4MG CAPSULE 0.4 MG PO (20:49)
[2025-03-28] VITALS (11 sets, daily range): BP systolic 105–131; BP diastolic 65–74; PULSE 64–129; RESP 18–28; TEMP 36.1–36.8; O2SAT 87–99; BMI 29.9
[2025-03-28] MEDS: IPRATROPIUM/ALBUTEROL 3 ML NEB IH ×5 (00:14→23:13)
--- NOTE | 2025-03-28 00:41 | PC.NURSE ---
Vitals charted on incorrect patient.
--- NOTE | 2025-03-28 05:39 | PC.NURSE ---
0400: ARLETTE and RN rounding on patient. found patient is bed scratching and picking at his left foot and toes. . Left great toe toenail is off and top of left second toe chunks of skin missing. #rd toe left foot top of toe scabbed. Toes bleeding and dripping blood. blood was all over bed and patients hands. Dr. Patricio notified. Toes cleaned with hibicleanse , gauze and saline. telfa wrapped around , great toe, 2nd and 3rd toes, Kerlex wrapped around foot and toes. Pt. had hugo wrap to left lower leg. that was removed and pt. had a couple of healing ulcers and wounds, area of wounds cleansed and redressed. hugo waps covering kerlex. Pt. was transferred from step down last night. Pt. is alert and orientated x 4. Pt on oxygen per N/C during the day a BiPAP at night.. Pt. getting IV antibiotics. Pt. sleeping on and off this shift. Personal items and call man in reach.
[2025-03-28] MEDS: ENOXAPARIN 120MG/0.8ML SYRINGE 110 MG SUBCUT ×2 (06:37→16:41)
[2025-03-28] MEDS: CEFEPIME HCL 2 GM in 0.9 % SODIUM CHLORIDE 100 ML IV ×3 (06:37→20:44)
[2025-03-28] MEDS: humaLOG 100 UNITS/ML 10ML VIAL (SSI) SUBCUT ×4 (06:37→20:15)
[2025-03-28 06:56] LABS: ABG PCO2 63.6 mmhg (35.0-45.0); ABG PH 7.42 mmol/L (7.35-7.45)
[2025-03-28 06:57] LABS: ABG HCO3 40.2 mmhg (22.0-26.0); ABG PO2 95.2 mmhg (80-100); ABG TCO2 42.2 mmhg (23-27)
[2025-03-28 06:58] LABS: Source Left Radial
[2025-03-28 07:41] LABS: Hematocrit 33.2 % (42.0-52.0); Hemoglobin 10.7 g/dL (14.1-18.0); Immature Granulocytes % 0.7 %; Mean Corpuscular HGB Conc 32.2 g/dL (31.8-35.4); Mean Corpuscular Hemoglobin 29.2 pg (27.0-31.2); Mean Corpuscular Volume 90.7 fl (80-94); Nucleated Red Blood Cells % 0 %; Platelet Count 180 K/mm3 (142-424); Red Blood Count 3.66 M/mm3 (4.60-6.20); Red Cell Distribution Width-SD 44.2 fL; White Blood Count 8.6 K/mm3 (4.8-10.8)
[2025-03-28 07:51] LABS: Alanine Aminotransferase 12 U/L (12-78); Albumin Level 2.8 g/dl (3.5-5.0); Alkaline Phosphatase 248 U/L (38-126); Aspartate Amino Transferase 20 U/L (17-59); Bilirubin,Direct 0.2 mg/dl (0.0-0.4); Bilirubin,Indirect 0.1 mg/dL (0.0-0.9); Bilirubin,Total 0.3 mg/dl (0.2-1.3); Bilirubin,Unconjugated 0.1 mg/dL (0.0-1.1); Blood Urea Nitrogen 29 mg/dl (9-20); Calcium 8.8 mg/dl (8.4-10.2); Chloride 91 mmol/L (98-107); Cholesterol 168 mg/dl (140-200); Creatinine Clearance Estimated 88 mL/min (50-200); Creatinine,Serum 1.20 mg/dl (0.66-1.25); Estimated Glomerular Filt Rate 60 ml/min (>60); GFR (African American) 72 ML/MIN (>60); Glucose 189 mg/dl (74-100); HDL Cholesterol 23 mg/dl (40-60); Potassium 3.4 mmoL/L (3.5-5.1); Sodium 136 mmol/L (136-145); Total Protein,Serum 7.0 g/dl (6.3-8.2); Triglycerides 154 mg/dl (30-150)
[2025-03-28] MEDS: GABAPENTIN 300MG CAPSULE 300 MG PO ×2 (09:00→20:14)
[2025-03-28] MEDS: VENLAFAXINE XR 75MG CAPSULE 150 MG PO (09:00)
[2025-03-28] MEDS: BICTEGRAVIR PO (09:01)
[2025-03-28] MEDS: BUMETANIDE 1MG/4ML VIAL 1 MG IV ×2 (09:01→16:08)
[2025-03-28] MEDS: TENOFOVIR ALAFENAMIDE PO (09:01)
[2025-03-28] MEDS: ASPIRIN EC 81MG TABLET 81 MG PO (09:01)
[2025-03-28] MEDS: METOPROLOL SUCCINATE XL 100MG TABLET 100 MG PO (09:01)
[2025-03-28] MEDS: EMTRICITABINE PO (09:01)
[2025-03-28] MEDS: FINASTERIDE 5MG TABLET 5 MG PO (09:01)
[2025-03-28 09:35] LABS: Anion Gap 6.4 mEq/L (5-15); Carbon Dioxide 42 mmol/L (22.0-30.0)
[2025-03-28] MEDS: HYDROCODONE/APAP 5/325 MG TABLET 1 TAB PO ×2 (14:30→21:00)
--- NOTE | 2025-03-28 14:41 | PC.NURSE ---
Pt. is Aox 4, up with assistance times 2, on 02-5L nc, bed alarm on, 18g R AC SL, using urinal, both legs wrapped with hugo, PT, OT, CM, and Pulmonary following, was told in report patient not to wear bipap tonight so the can get blood gas in the am.
[2025-03-28] MEDS: GABAPENTIN 300MG CAPSULE 600 MG PO (16:41)
--- NOTE | 2025-03-28 17:19 | EXP.PN ---
Subjective *Date: 03/28/25 *Time: 17:19 Interval history: seen at bedside, complains of SOB and wheezing but mentions it is better since admit, no other complains, he thinks it may be too early for him to be discharged today Exam Data for Last 24 hours Vital signs and Labs for Last 24 Hours: Temp Pulse Resp BP Pulse Ox O2 Del Method O2 Flow Rate 98.1 F 64 18 112/69 97 Nasal Cannula 5 03/28/25 16:00 03/28/25 16:00 03/28/25 16:00 03/28/25 16:00 03/28/25 16:00 03/28/25 16:13 03/28/25 16:13 FiO2 30 03/28/25 07:17 Laboratory Results - last 24 hr 03/27/25 18:46: Lactate 1.7 03/28/25 06:45: Specimen Source Left radial, O2 % 30% bipap 20/8, ABG pH 7.42, ABG pCO2 63.6 H, ABG pO2 95.2, ABG HCO3 40.2 H, ABG Total CO2 42.2 H, ABG O2 Saturation 97, ABG Base Excess 15.7 H, Jack Test Acceptable, Vent Rate 22 03/28/25 07:27: WBC 8.6 D, RBC 3.66 L, Hgb 10.7 L, Hct 33.2 L, MCV 90.7, MCH 29.2, MCHC 32.2, RDW 13.4, Plt Count 180, MPV 9.3, Neut % (Auto) 74.8, Lymph % (Auto) 15.3, Tillman % (Auto) 7.1, Eos % (Auto) 1.6, Baso % (Auto) 0.5, Neut # (Auto) 6.5, Lymph # (Auto) 1.3, Tillman # (Auto) 0.6, Eos # (Auto) 0.1, Baso # (Auto) 0.0, Sodium 136, Potassium 3.4 L D, Chloride 91 L, Carbon Dioxide 42 H*, Anion Gap 6.4, BUN 29 H D, Creatinine 1.20, Estimated Creat Clear 88, Estimated GFR 60, Est GFR ( Amer) 72, Glucose 189 H, Calcium 8.8, Total Bilirubin 0.3, Direct Bilirubin 0.2, Conjugated Bilirubin 0.0, Indirect Bilirubin 0.1, Unconjugated Bilirubin 0.1, AST 20, ALT 12, Alkaline Phosphatase 248 H, Total Protein 7.0, Albumin 2.8 L, Triglycerides 154 H, Cholesterol 168, LDL Cholesterol Direct 102.13, VLDL Cholesterol 31, HDL Cholesterol 23 L, Cholesterol/HDL Ratio 7.3 H I & O for Last 24 hours: Intake & Output 03/25/25 03/26/25 03/27/25 03/28/25 23:59 23:59 23:59 23:59 Intake Total 756 / 856 440 / 440 Output Total 1250 / 1650 2475 / 2475 Balance -494 / -794 -5 / -2034 Weight 110.2 kg 110.2 kg 109.117 kg Microbiology Reports for the Last 24 Hours: Microbiology 03/26/25 18:55 Blood Blood Culture - Preliminary NO GROWTH AFTER 24 HOURS 03/26/25 18:36 Blood Blood Culture - Preliminary NO GROWTH AFTER 24 HOURS Constitutional Constitutional: no acute distress *Routine HEENT Exam Head: Present normocephalic Eye: Present EOMI and PERRL ENT: Present mucous membranes moist *Routine Neck Exam Neck: Present supple; Absent lymphadenopathy *Routine Respiratory Exam Respiratory: Present decreased breath sounds *Routine Cardiovascular Exam Cardiovascular: Present RRR *Routine Abdominal Exam Abdominal: Present soft and normoactive bowel sounds; Absent tenderness *Routine Extremities Exam Extremities: Absent cyanosis, clubbing or edema *Routine Skin Exam Skin: Present warm; Absent rash *Routine Neurological Exam Neurological: Present alert and oriented X3 Assessment and Plan *Assessment and plan (1) Encephalopathy acute: Status: Resolved Category: Medical Code(s): G93.40 - Encephalopathy, unspecified (2) Pneumonia: Status: Acute Qualifiers: Pneumonia type: due to unspecified organism Laterality: unspecified laterality Lung location: unspecified part of lung Qualified Code(s): J18.9 - Pneumonia, unspecified organism Category: Medical Code(s): J18.9 - Pneumonia, unspecified organism (3) Acute on chronic respiratory failure with hypoxia and hypercapnia: Status: Resolved Category: Medical Code(s): J96.21 - Acute and chronic respiratory failure with hypoxia; J96.22 - Acute and chronic respiratory failure with hypercapnia (4) Type 2 diabetes mellitus with vascular disease: Status: Chronic Category: Medical Code(s): E11.59 - Type 2 diabetes mellitus with other circulatory complications (5) Atrial fibrillation: Status: Acute Qualifiers: Atrial fibrillation type: unspecified chronic Qualified Code(s): I48.20 - Chronic atrial fibrillation, unspecified Category: Medical Code(s): I48.91 - Unspecified atrial fibrillation (6) Chronic diastolic CHF (congestive heart failure): Status: Chronic Category: Medical Code(s): I50.32 - Chronic diastolic (congestive) heart failure (7) HIV disease: Status: Chronic Category: Medical Code(s): B20 - Human immunodeficiency virus [HIV] disease (8) Hypertension: Status: Acute Qualifiers: Hypertension type: primary hypertension Qualified Code(s): I10 - Essential (primary) hypertension Category: Medical Code(s): I10 - Essential (primary) hypertension (9) Hyponatremia: Status: Acute Category: Medical Code(s): E87.1 - Hypo-osmolality and hyponatremia (10) FRANNIE (acute kidney injury): Status: Resolved Category: Medical Code(s): N17.9 - Acute kidney failure, unspecified Plan 69-year-old male with multiple chronic medical conditions including poorly controlled type 2 diabetes, HIV, CHF, COPD, ABEL, pharmacy and frequent falls. Presented to the ER due to confusion, worsening respiratory distress, increased production of sputum. Acute on chronic hypoxemic and hypercapnic respiratory failure Pneumonia Loculated effusions, previously seen on CT 02/27/2025 - Chest x-ray showed bibasilar opacification. Patient has history of loculated effusions. Concern for this being source of infection versus pneumonia in lower lobes. PCO 2 on blood gas continues to improve on 3L NC, maintaing above 90% on 3L NC continue IV cefepime discussed with pulmonary - Continue Stiolto 2 puffs Acute on chronic heart failure with preserved ejection fraction Atrial flutter, rate controlled Hypertension discussed with cardiology hold digoxin given bradycardia cardiology do not recommend OAC contineu IV bumex 1mg BID Hyponatremia: improved monitor HIV: On Biktarvy. Continue home regimen. Altered Mental Status (Encephalopathy) - Consistent with metabolic encephalopathy due to hypercapnia BPH: Continue finasteride 5 mg daily and tamsulosin 0.4 mg nightly Anxiety: Continue Effexor 150 mg daily DM - ordered ISS DVT PPx - on lovenox
--- NOTE | 2025-03-28 19:33 | PC.NURSE ---
Pt c/o trouble with bowels, pt has no documented BM since admission. Contacted Dr Crespo with concerns. New orders for bowel medication received.
--- NOTE | 2025-03-28 20:06 | PC.NURSE ---
MD Subramanianayed to use Dexcom
[2025-03-28] MEDS: POLYETHYLENE GLYCOL 3350 17 GM PACKET PO (20:14)
[2025-03-28] MEDS: PANTOPRAZOLE 40MG TABLET 40 MG PO (20:14)
[2025-03-28] MEDS: TAMSULOSIN 0.4MG CAPSULE 0.4 MG PO (20:18)
[2025-03-29 00:16] VITALS: PULSE 97
[2025-03-29 00:17] VITALS: PULSE 78
[2025-03-29] MEDS: HYDROCODONE/APAP 5/325 MG TABLET 1 TAB PO ×2 (03:37→13:43)
[2025-03-29 04:00] VITALS: BP 126/73; PULSE 95; RESP 20; TEMP 36.8; O2SAT 96; BMI 29.5
--- NOTE | 2025-03-29 04:08 | PC.NURSE ---
Addendum entered by Anshul Lees RN 03/29/25 04:21: Pt placed on 2LNC due to O2 Sat dropping when pt is asleep. MD aware. Original Note: Pt is A&O x4. Pt is 5LNC. Pt has not born his bipap during the night per MD order. Pt has c/o back pain. Pt medicated per NOV. Pt has not had any acute changes this shift. Dressings clean dry and intact, see nursing wound note. Pt not voicing any further concerns. Pt resting w/ call light in reach. Plan of care ongoing.
--- NOTE | 2025-03-29 04:22 | PC.NURSE ---
Pt is A&O x4. Pt is 5LNC. Pt has not born his bipap during the night per MD order. Pt has c/o back pain. Pt medicated per NOV. Pt has not had any acute changes this shift. Dressings clean dry and intact, see nursing wound note. Pt not voicing any further concerns. Pt resting w/ call light in reach. Plan of care ongoing.
[2025-03-29] MEDS: CEFEPIME HCL 2 GM in 0.9 % SODIUM CHLORIDE 100 ML IV (04:57)
[2025-03-29] MEDS: humaLOG 100 UNITS/ML 10ML VIAL (SSI) SUBCUT ×2 (05:00→10:25)
[2025-03-29] MEDS: ENOXAPARIN 120MG/0.8ML SYRINGE 110 MG SUBCUT (05:00)
--- NOTE | 2025-03-29 05:34 | PC.NURSE ---
Pt given soap suds enema per MD order.
[2025-03-29] MEDS: IPRATROPIUM/ALBUTEROL 3 ML NEB IH ×2 (06:30→12:52)
[2025-03-29 07:49] LABS: Hematocrit 34.8 % (42.0-52.0); Hemoglobin 10.6 g/dL (14.1-18.0); Immature Granulocytes % 1.0 %; Mean Corpuscular HGB Conc 30.5 g/dL (31.8-35.4); Mean Corpuscular Hemoglobin 28.3 pg (27.0-31.2); Mean Corpuscular Volume 93.0 fl (80-94); Nucleated Red Blood Cells % 0 %; Platelet Count 197 K/mm3 (142-424); Red Blood Count 3.74 M/mm3 (4.60-6.20); Red Cell Distribution Width-SD 45.7 fL; White Blood Count 6.1 K/mm3 (4.8-10.8)
[2025-03-29 08:00] VITALS: BP 109/67; PULSE 85; RESP 18; TEMP 36.4; O2SAT 95
[2025-03-29 08:01] LABS: Alanine Aminotransferase 11 U/L (12-78); Albumin Level 2.7 g/dl (3.5-5.0); Albumin/Globulin Ratio 0.7 (1.1-1.8); Alkaline Phosphatase 265 U/L (38-126); Aspartate Amino Transferase 24 U/L (17-59); Bilirubin,Total 0.3 mg/dl (0.2-1.3); Blood Urea Nitrogen 20 mg/dl (9-20); Calcium 8.7 mg/dl (8.4-10.2); Chloride 90 mmol/L (98-107); Creatinine Clearance Estimated 95 mL/min (50-200); Creatinine,Serum 1.10 mg/dl (0.66-1.25); Estimated Glomerular Filt Rate 66 ml/min (>60); GFR (African American) 80 ML/MIN (>60); Globulin 4.0 g/dL (1.3-3.2); Glucose 184 mg/dl (74-100); Potassium 3.6 mmoL/L (3.5-5.1); Sodium 136 mmol/L (136-145); Total Protein,Serum 6.7 g/dl (6.3-8.2)
--- NOTE | 2025-03-29 08:02 | P.PN_ITS ---
Subjective *Date: 03/29/25 *Time: 08:02 Medical Exam Vital signs and Labs for Last 24 Hours: Vital Signs Temp Pulse Pulse Resp BP Pulse Ox O2 Del Method 03/29/25 07:48 Nasal Cannula 03/29/25 06:44 Nasal Cannula 03/29/25 05:00 Nasal Cannula 03/29/25 04:00 98.3 F 95 H 20 126/73 96 Nasal Cannula 03/29/25 03:00 Nasal Cannula 03/29/25 01:00 Nasal Cannula 03/29/25 00:17 78 03/29/25 00:16 97 H 03/28/25 23:55 97.8 F 64 18 126/71 96 Nasal Cannula 03/28/25 23:00 Nasal Cannula 03/28/25 21:00 Nasal Cannula 03/28/25 20:00 Nasal Cannula 03/28/25 20:00 98.2 F 117 H 20 105/68 L 95 Nasal Cannula 03/28/25 19:07 Nasal Cannula 03/28/25 19:07 81 03/28/25 19:07 100 H 03/28/25 18:16 Nasal Cannula 03/28/25 16:13 Nasal Cannula 03/28/25 16:00 98.1 F 64 18 112/69 97 Nasal Cannula 03/28/25 14:32 Nasal Cannula 03/28/25 12:24 Nasal Cannula 03/28/25 12:00 97.6 F 123 H 18 131/74 95 Nasal Cannula 03/28/25 11:41 102 H 03/28/25 11:41 83 03/28/25 11:41 87 L Nasal Cannula 03/28/25 10:19 Nasal Cannula 03/28/25 09:00 Nasal Cannula O2 Flow Rate 03/29/25 07:48 5 03/29/25 06:44 5 03/29/25 05:00 5 03/29/25 04:00 5 03/29/25 03:00 5 03/29/25 01:00 5 03/29/25 00:17 03/29/25 00:16 03/28/25 23:55 5 03/28/25 23:00 5 03/28/25 21:00 58 03/28/25 20:00 5 03/28/25 20:00 4 03/28/25 19:07 4 03/28/25 19:07 03/28/25 19:07 03/28/25 18:16 5 03/28/25 16:13 5 03/28/25 16:00 2 03/28/25 14:32 5 03/28/25 12:24 5 03/28/25 12:00 3 03/28/25 11:41 03/28/25 11:41 03/28/25 11:41 4 03/28/25 10:19 3 03/28/25 09:00 3 Intake and Output 03/28/25 03/29/25 03/29/25 23:59 07:59 15:59 Intake Total 240 / 900 100 / 100 Output Total 1275 / 3750 400 / 400 Balance -1035 / -2850 -300 / -300 Intake: Intake, Oral Amount 240 / 600 Infusion Intake 100 / 100 Cefepime HCl 2 gm In 0.9 % 100 / 100 Sodium Chloride 100 ml @ 200 mls/hr IV Q8H [facility] Rx#:[id number] Output: Output, Urine Amount 1275 / 3750 400 / 400 Other: Number of Unmeasured Voids 0 Number of Bowel Movements 4 Weight 107.683 kg Patient Weight 03/29/25 23:59 Weight 107.683 kg Laboratory Results - last 24 hr 03/28/25 07:27: Carbon Dioxide 42 H*, Anion Gap 6.4, LDL Cholesterol Direct 102.13 I & O for Labs for Last 24 Hours: Intake & Output 03/26/25 03/27/25 03/28/25 03/29/25 23:59 23:59 23:59 23:59 Intake Total 756 / 856 800 / 900 100 / 100 Output Total 1250 / 1650 3750 / 3750 400 / 400 Balance -494 / -794 -2950 / -2850 -300 / -300 Weight 110.2 kg 110.2 kg 109.117 kg 107.683 kg Microbiology Reports for the Last 24 Hours: Microbiology 03/27/25 11:17 Nose MRSA Culture - Final Negative 03/26/25 18:55 Blood Blood Culture - Preliminary NO GROWTH AFTER 48 HOURS 03/26/25 18:36 Blood Blood Culture - Preliminary NO GROWTH AFTER 48 HOURS The patient's infection will respond to the chosen ABx?: Yes Is the patient receiving the right drug, dose, and route?: Yes Could a more targeted ABx be ordered?: No (SPUTUM CX PENDING)
[2025-03-29 08:10] LABS: Anion Gap 6.6 mEq/L (5-15); Carbon Dioxide 43 mmol/L (22.0-30.0)
--- NOTE | 2025-03-29 08:35 | EXP.DC.SUM ---
General Admission date:: 03/26/25 Discharge date: 03/29/25 HPI HPI HPI: Mr. Love is a 69-year-old male with history of HIV, chronic hypoxic respiratory failure, A-fib, diabetes, COPD. Patient has had progressive decline over the past several months to year. He presented to the ER today due to worsening shortness of breath. Daughter who is a nurse and helps care for him states that over the past week he has had increased cough, congestion, wheeze and shortness of breath. He had gone up on his home oxygen and increased nebulizer use with no benefit. Became more short of breath today necessitating presentation to the ER. Was also more confused. Home health nurse recommended to go to the ER because of the confusion. On arrival to the ER, found to be hypoxic and hypercapnic. pH 7.3, pCO2 80 on VBG. BNP 2600. Placed on BiPAP with persistent hypercapnia but improved tolerance and increased tidal volumes. White count elevated at 17. Given report of increased production of cough and sputum, concern for pneumonia with acute on chronic hypoxic and hypercapnic respiratory failure. Initiated on doxycycline in the ED. Medicine consulted for admission and further management. Patient admitted to stepdown level of care due to BiPAP and worsening hypercapnia. On my evaluation, he is fatigued and alert to person and place but otherwise shows confusion. History supplemented by daughter at bedside. Broaden antibiotic coverage to include cefepime given recent healthcare exposure and significant sputum production per daughter's report. Denies chest pain. Does complain of aching all over however. No increase in buprenorphine since last admission but is due for an increase in his patch due to persistent pain at home. Afebrile. Hospital Course Hospital Course Hospital Course: 69-year-old male with multiple chronic medical conditions including poorly controlled type 2 diabetes, HIV, CHF, COPD, ABEL, pharmacy and frequent falls. Presented to the ER due to confusion, worsening respiratory distress, increased production of sputum. Concern for acute on chronic hypoxemic hypercapnic respiratory failure and pneumonia. Medicine consulted for admission, after extensive discussion with the ER, agreed to admit for further care. Antibiotics broadened. Admitted to stepdown level of care. High risk for further decompensation. Goals of care discussion with family on admission, patient wants to be DNR/DNI. Pulmonology consulted to evaluate in the morning. Problems addressed as follows: Acute on chronic hypoxemic and hypercapnic respiratory failure Pneumonia Loculated effusions, previously seen on CT 02/27/2025 - Chest x-ray per my review which shows bibasilar opacification. Patient has history of loculated effusions. Concern for this being source of infection versus pneumonia in lower lobes. Initiated on BiPAP on arrival. Showed improvement in hypercapnic respiratory failure with normalization of pH. Continue to wear BiPAP the first day or 2 of admission able to wean off BiPAP. Patient resistant to wear BiPAP and has had it at home but no longer wears it. Not interested in BiPAP device at discharge. Initiated on cefepime 2 g every 8 hours IV for suspected underlying pneumonia. Pulmonology was consulted to assist with care. Blood and sputum cultures and cough have but discharge. Showed good response to diuresis with -3.7 L during admission. Kidney function remained stable. - Pulmonology assisted with care during admission. Patient able to wean off BiPAP and maintain stable bicarb. Patient is also adamant that he does not want to wear a BiPAP at home. Previously had 1 but was not wearing it. Recommended he discuss this further with his providers at the [facility] as they can help/assist in ordering 1 if he is open to using noninvasive positive pressure ventilation at home. In regard to his pneumonia, treated with cefepime during admission. Doing well. White count 6.1. Able to wean to room air briefly during day of discharge. Better than baseline oxygen requirement at this time. Transition to Levaquin to complete 7 days of antibiotics. Culture still remain negative. Complete 750 mg for 3 more days for 7 days total of antibiotic coverage. Resume home regimen of supplemental oxygen as needed 2 to 3 L. Loculated pleural effusions appear chronic and have been stable since July 2024. No indication for thoracentesis at this time. Acute on chronic heart failure with preserved ejection fraction Atrial flutter, rate controlled Hypertension - Rate controlled in the 60s to 80s on admission. Blood pressure appropriate. Continue home regimen of metoprolol succinate 100 mg daily and digoxin 125 mcg daily. Digoxin level therapeutic at 1.3 during admission. BNP elevated 2600, less then his level 1 month ago that was 5500; initiated on Bumex IV, transition back to Bumex 2 mg p.o. twice daily. Tolerating well. -3.7 L during admission. Therapeutic anticoagulation with Lovenox. Will continue to hold DOAC at discharge. Warrants further discussion as an outpatient for consideration of stroke prophylaxis. Previously held due to risk of falling and bleeding given patient's recurrent falls at home. Hyponatremia: Sodium 128, chloride 80, BUN 21, creatinine 1.2 on admission. Monitor during admission. Improved to sodium of 136, chloride 90, potassium 3.6. Kidney function stable with BUN 20, creatinine 1.1 on day of discharge. HIV: On Biktarvy. Continue home regimen. Levels checked last visit, HIV RNA undetectable on 02/28; absolute CD4 count of 429 Altered Mental Status (Encephalopathy) - Consistent with metabolic encephalopathy due to hypercapnia. Monitored for improvement with treatment of his respiratory failure as above. Also suspect component of polypharmacy. Has had toxic encephalopathy in the past due to combo of his medications. Caution with oversedation return to baseline mentation by discharge. Resumed home medications with gabapentin at decreased dose. With - Resume gabapentin at decreased dose of 300 mg 3 times a day BPH: Continue finasteride 5 mg daily and tamsulosin 0.4 mg nightly Anxiety: Continue Effexor 150 mg daily PT and OT evaluated patient and recommended placement. Patient adamant he does not want to go placement. [facility] Will discharge home with home health. Daughter helps take care of him. She is a nurse by training. Total time spent on discharge 36 minutes in counseling, documentation, chart review, and direct care with patient. Exam Data for Last 24 hours Vital signs and Labs for Last 24 Hours: Temp Pulse Resp BP Pulse Ox O2 Del Method O2 Flow Rate 98.3 F 95 H 20 126/73 96 Nasal Cannula 5 03/29/25 04:00 03/29/25 04:00 03/29/25 04:00 03/29/25 04:00 03/29/25 04:00 03/29/25 07:48 03/29/25 07:48 FiO2 30 03/28/25 07:17 Laboratory Results - last 24 hr 03/28/25 07:27: Carbon Dioxide 42 H*, Anion Gap 6.4, LDL Cholesterol Direct 102.13 03/29/25 07:31: WBC 6.1 D, RBC 3.74 L, Hgb 10.6 L, Hct 34.8 L, MCV 93.0, MCH 28.3, MCHC 30.5 L, RDW 13.5, Plt Count 197, MPV 9.1, Neut % (Auto) 73.0, Lymph % (Auto) 13.1, Morrow % (Auto) 9.9 H, Eos % (Auto) 2.5, Baso % (Auto) 0.5, Neut # (Auto) 4.5, Lymph # (Auto) 0.8, Morrow # (Auto) 0.6, Eos # (Auto) 0.2, Baso # (Auto) 0.0, Sodium 136, Potassium 3.6, Chloride 90 L, Carbon Dioxide 43 H*, Anion Gap 6.6, BUN 20 D, Creatinine 1.10, Estimated Creat Clear 95, Estimated GFR 66, Est GFR ( Amer) 80, Glucose 184 H, Calcium 8.7, Total Bilirubin 0.3, AST 24, ALT 11 L, Alkaline Phosphatase 265 H, Total Protein 6.7, Albumin 2.7 L, Globulin 4.0 H, Albumin/Globulin Ratio 0.7 L I & O for Last 24 hours: Intake & Output 03/26/25 03/27/25 03/28/25 03/29/25 23:59 23:59 23:59 23:59 Intake Total 756 / 856 800 / 900 100 / 100 Output Total 1250 / 1650 3750 / 3750 400 / 400 Balance -494 / -794 -2950 / -2850 -300 / -300 Weight 110.2 kg 110.2 kg 109.117 kg 107.683 kg Microbiology Reports for the Last 24 Hours: Microbiology 03/28/25 17:36 Sputum - Expectorated Sputum Gram Stain - Final 03/27/25 11:17 Nose MRSA Culture - Final Negative 03/26/25 18:55 Blood Blood Culture - Preliminary NO GROWTH AFTER 48 HOURS 03/26/25 18:36 Blood Blood Culture - Preliminary NO GROWTH AFTER 48 HOURS Constitutional Constitutional: no acute distress, obese, chronically ill appearing, disheveled and cooperative *Routine HEENT Exam Head: Present normocephalic Eye: Present EOMI and PERRL ENT: Present mucous membranes moist *Routine Neck Exam Neck: Present supple; Absent lymphadenopathy *Routine Respiratory Exam Respiratory: Present CTA bilaterally; Absent rhonchi, wheezes or crackles *Routine Cardiovascular Exam Cardiovascular: Present irregularly irregular *Routine Abdominal Exam Abdominal: Present soft and normoactive bowel sounds; Absent tenderness *Routine Rectal Exam Patient deferred: visual exam *Routine Exam Patient deferred: penile exam *Routine Extremities Exam Extremities: Absent cyanosis, clubbing or edema *Routine Skin Exam Skin: Present warm; Absent rash *Routine Neurological Exam Neurological: Present alert, oriented X3 and moving all extremities; Absent altered mental status Comments: Slow to respond, likes to keep his eyes closed answering questions but answers questions appropriately. Results Data Completed and Pending Labs on day of discharge: Labs from last 24 hours 03/29/25 03/28/25 07:31 07:27 WBC 6.1 D RBC 3.74 L Hgb 10.6 L Hct 34.8 L MCV 93.0 MCH 28.3 MCHC 30.5 L RDW 13.5 Plt Count 197 MPV 9.1 Neut % (Auto) 73.0 Lymph % (Auto) 13.1 Morrow % (Auto) 9.9 H Eos % (Auto) 2.5 Baso % (Auto) 0.5 Neut # (Auto) 4.5 Lymph # (Auto) 0.8 Morrow # (Auto) 0.6 Eos # (Auto) 0.2 Baso # (Auto) 0.0 Sodium 136 Potassium 3.6 Chloride 90 L Carbon Dioxide 43 H* 42 H* Anion Gap 6.6 6.4 BUN 20 D Creatinine 1.10 Estimated Creat Clear 95 Estimated GFR 66 Est GFR ( Amer) 80 Glucose 184 H Calcium 8.7 Total Bilirubin 0.3 AST 24 ALT 11 L Alkaline Phosphatase 265 H Total Protein 6.7 Albumin 2.7 L Globulin 4.0 H Albumin/Globulin Ratio 0.7 L LDL Cholesterol Direct 102.13 Preliminary micro results at discharge 03/26/25 18:55 Blood Culture - Preliminary Blood NO GROWTH AFTER 48 HOURS 03/26/25 18:36 Blood Culture - Preliminary Blood NO GROWTH AFTER 48 HOURS DS: Diagnosis Discharge Diagnosis (1) Encephalopathy acute: Status: Resolved Code(s): G93.40 - Encephalopathy, unspecified (2) Pneumonia: Status: Acute Code(s): J18.9 - Pneumonia, unspecified organism Qualifiers: Laterality: unspecified laterality Lung location: unspecified part of lung Pneumonia type: due to unspecified organism Qualified Code(s): J18.9 - Pneumonia, unspecified organism (3) Acute on chronic respiratory failure with hypoxia and hypercapnia: Status: Resolved Code(s): J96.21 - Acute and chronic respiratory failure with hypoxia; J96.22 - Acute and chronic respiratory failure with hypercapnia (4) Type 2 diabetes mellitus with vascular disease: Status: Chronic Code(s): E11.59 - Type 2 diabetes mellitus with other circulatory complications (5) Atrial fibrillation: Status: Acute Code(s): I48.91 - Unspecified atrial fibrillation Qualifiers: Atrial fibrillation type: unspecified chronic Qualified Code(s): I48.20 - Chronic atrial fibrillation, unspecified (6) Chronic diastolic CHF (congestive heart failure): Status: Chronic Code(s): I50.32 - Chronic diastolic (congestive) heart failure (7) HIV disease: Status: Chronic Code(s): B20 - Human immunodeficiency virus [HIV] disease (8) Hypertension: Status: Acute Code(s): I10 - Essential (primary) hypertension Qualifiers: Hypertension type: primary hypertension Qualified Code(s): I10 - Essential (primary) hypertension (9) Hyponatremia: Status: Acute Code(s): E87.1 - Hypo-osmolality and hyponatremia (10) FRANNIE (acute kidney injury): Status: Resolved Code(s): N17.9 - Acute kidney failure, unspecified Meds Home Medications and Allergies Home Medications ?Medication ?Instructions ?Recorded ?Confirmed ?Type finasteride 5 mg tablet 5 mg PO DAILY 11/13/18 03/27/25 History tamsulosin 0.4 mg capsule 0.4 mg PO HS 01/06/20 03/27/25 History cholecalciferol (vitamin D3) 25 25 mcg PO DAILY 12/30/20 03/27/25 History mcg (1,000 unit) capsule venlafaxine 150 mg 150 mg PO DAILY 09/16/23 03/27/25 History capsule,extended release 24 hr (Effexor XR) albuterol sulfate 90 mcg/actuation 1 inh inhalation QIDP PRN 08/20/24 03/27/25 History aerosol inhaler Shortness Of Breath sitagliptin 100 mg tablet 100 mg PO DAILY 08/20/24 03/27/25 History pantoprazole 40 mg tablet,delayed 40 mg PO DAILY 30 days #0 tabs 08/23/24 03/27/25 Rx release aspirin 81 mg capsule 81 mg PO DAILY 11/04/24 03/27/25 History bictegravir 50 mg-emtricitabine 1 tab PO DAILY 11/04/24 03/27/25 History 200 mg-tenofovir alafenam 25 mg tablet (Biktarvy) lidocaine 5 % topical patch 2 patch topical DAILY 11/04/24 03/27/25 History tiotropium 2.5 mcg-olodaterol 2.5 2 puff inhalation DAILY 11/04/24 03/27/25 History mcg/actuation mist for inhalation (Stiolto Respimat) bumetanide 2 mg tablet 2 mg PO BIDL 30 days #60 tabs 11/05/24 03/27/25 Rx Bifidobacterium longum 10 million 10 cell PO DAILY 02/28/25 03/27/25 History cell capsule (Align (B.longum)) buprenorphine 7.5 mcg/hour weekly 1 patch transdermal WEEKLY 02/28/25 03/27/25 History transdermal patch digoxin 125 mcg (0.125 mg) tablet 125 mcg PO DAILY 30 days #30 tabs 03/03/25 03/27/25 Rx fish, borage, flaxseed oils-omega 1 cap PO DAILY 03/27/25 03/27/25 History 3,6,9 comb no.1 1,200 mg capsule (Greenleaf 3-6-9) metoprolol succinate 100 mg 100 mg PO DAILY 03/27/25 03/27/25 History tablet,extended release 24 hr gabapentin 300 mg capsule 300 mg PO TID 30 days #0 caps 03/29/25 03/27/25 Rx levofloxacin 750 mg tablet 750 mg PO DAILY 3 days #3 tabs 03/29/25 Rx methocarbamol 750 mg tablet 750 mg PO Q8HP PRN Muscle Spasm 30 03/29/25 03/27/25 Rx days #0 tabs New Prescriptions to Start Prescriptions: levofloxacin Negrito Patricio Allergies Allergy/AdvReac Type Severity Reaction Status Date / Time SANDRA Inhibitors Allergy Unknown Unknown Verified 02/27/25 20:15 allergy reaction clofibrate Allergy Unknown Unknown Verified 02/27/25 20:15 allergy reaction enalapril Allergy Unknown Unknown Verified 02/27/25 20:15 allergy reaction erythromycin base Allergy Unknown Unknown Verified 02/27/25 20:15 allergy reaction gemfibrozil Allergy Unknown Unknown Verified 02/27/25 20:15 allergy reaction hepatitis A virus vaccine Allergy Unknown Unknown Verified 02/27/25 20:15 allergy reaction hydralazine Allergy Unknown Unknown Verified 02/27/25 20:15 allergy reaction Macrolide Antibiotics Allergy Unknown Unknown Verified 02/27/25 20:15 allergy reaction pravastatin (From Pravachol) Allergy Unknown Unknown Verified 02/27/25 20:15 allergy reaction [id number] Reductase Allergy Unknown Unknown Verified 02/27/25 20:15 Inhibitor (Ftphopm-Pty-Psh allergy Reductase Inhibitor) reaction Discharge Plan Disposition Patient Disposition: Home Health Service Condition: Fair Discharge Order Discharge Orders: Discharge Order (Routine); Ordered 03/29/25 Ordered By: Negrito Patricio Follow up Plan Follow up with: Bruce Faith MD [Primary Care Provider, Medical] - Enter time for follow up Referral Note: please call office for follow up appointment Silvio Hill MD [Physician, Pulmonology] - Enter time for follow up Referral Note: office will call with appointment Rajendra Page MD [Staff Physician, Cardiology] - Enter time for follow up Referral Note: office will call with appointment Prescriptions/Medication Reconciliation: New levofloxacin 750 mg tablet 750 mg PO DAILY 3 Days Qty: 3 0RF Rx Instructions: first dose 03/30/25 Continued cholecalciferol (vitamin D3) 25 mcg (1,000 unit) capsule 25 mcg PO DAILY finasteride 5 MG tablet 5 mg PO DAILY tamsulosin 0.4 MG capsule 0.4 mg PO HS albuterol sulfate 90 mcg/actuation Hfa Aerosol Inhaler 1 inh INHALATION QIDP PRN (Reason: Shortness Of Breath) sitagliptin 100 mg Tablet 100 mg PO DAILY pantoprazole 40 MG tablet,delayed release (DR/EC) 40 mg PO DAILY 30 Days Qty: 0 0RF lidocaine 5 % Adhesive Patch,Medicated 2 patch TOPICAL DAILY Rx Instructions: leave on most painful area for up to 12 hrs Biktarvy 50-200-25 mg Tablet 1 tab PO DAILY aspirin 81 mg Capsule 81 mg PO DAILY Stiolto Respimat 2.5-2.5 mcg/actuation Mist 2 puff INHALATION DAILY bumetanide 2 mg Tablet 2 mg PO BIDL 30 Days Qty: 60 0RF Rx Instructions: ONE TABLET BY MOUTH DAILY, TAKE ADDITIONAL EVENING DOSE FOR WEIGHT GAIN OF 3 LB IN 24 HOURS OR 5 LB IN A WEEK. metoprolol succinate 100 mg tablet extended release 24 hr 100 mg PO DAILY Greenleaf 3-6-9 1,200 mg Capsule 1 cap PO DAILY venlafaxine [Effexor XR] 150 mg Capsule,Extended Release 24hr 150 mg PO DAILY Align (B.longum) 10 million cell Capsule 10 cell PO DAILY buprenorphine 7.5 mcg/hour Patch Weekly 1 patch TRANSDERMAL WEEKLY Rx Instructions: LAST PATCH PLACED 02/23/25 digoxin 125 mcg (0.125 mg) Tablet 125 mcg PO DAILY 30 Days Qty: 30 0RF Changed methocarbamol 750 MG tablet 750 mg PO Q8HP PRN (Reason: Muscle Spasm) 30 Days Qty: 0 0RF gabapentin 300 mg Capsule 300 mg PO TID 30 Days Qty: 0 0RF Discontinued gabapentin 300 mg Capsule 900 mg PO 0900,2100 Problem Reconciliation Problems Reviewed?: Yes Patient Discharge Instructions ACTIVITY: Continue current activity DIET: continue same diet Patient Instructions: Stop Light Pneumonia, Stop Light COPD, Stop Light Heart Failure, Stop Light Infection Print Language: Japanese Providers Primary Care Provider: Bruce Faith Admit Provider: Negrito Patricio Attending Provider: Negrito Patricio
[2025-03-29] MEDS: VENLAFAXINE XR 75MG CAPSULE 150 MG PO (09:04)
[2025-03-29 09:05] VITALS: PULSE 86
[2025-03-29] MEDS: METOPROLOL SUCCINATE XL 100MG TABLET 100 MG PO (09:05)
[2025-03-29] MEDS: FINASTERIDE 5MG TABLET 5 MG PO (09:05)
[2025-03-29] MEDS: ASPIRIN EC 81MG TABLET 81 MG PO (09:05)
[2025-03-29] MEDS: GABAPENTIN 300MG CAPSULE 300 MG PO (09:05)
[2025-03-29] MEDS: BUMETANIDE 1 MG TABLET 2 MG PO (09:05)
[2025-03-29] MEDS: DIGOXIN 0.125MG TABLET 125 MCG PO (09:05)
[2025-03-29] MEDS: TENOFOVIR ALAFENAMIDE PO (09:06)
[2025-03-29] MEDS: BICTEGRAVIR PO (09:06)
[2025-03-29] MEDS: EMTRICITABINE PO (09:06)
[2025-03-29 12:00] VITALS: BP 128/76; PULSE 73; RESP 18; TEMP 36.8; O2SAT 92
[2025-03-29] MEDS: LEVOFLOXACIN/D5W 750 MG/150 ML 750 MG/150 ML PIGGYBACK 100 MG IV (13:39)
[2025-03-29] MEDS: METHOCARBAMOL 500MG TABLET 500 MG PO (13:43)
== END 2025-03-29 15:25 | disposition home health service (06) | DRG 193 ==
LOC: ER 18:51 → ICU 21:46 → 2ND 03-27 20:11
PROVIDERS: Internal Medicine Pulmonary Disease; Nurse Practitioner Family; Student in an Organized Health Care Education/Training Program; Admitting Provider Internal Medicine Adolescent Medicine; Emergency Provider Student in an Organized Health Care Education/Training Program; PCP Internal Medicine; Visit Provider Internal Medicine Adolescent Medicine
DX: J18.9 Pneumonia, unspecified organism (principal); G93.41 Metabolic encephalopathy; I50.33 Acute on chronic diastolic (congestive) heart failure; J96.21 Acute and chronic respiratory failure with hypoxia; J96.22 Acute and chronic respiratory failure with hypercapnia; I48.20 Chronic atrial fibrillation, unspecified; E87.1 Hypo-osmolality and hyponatremia; J44.0 Chronic obstructive pulmonary disease with (acute) lower respiratory infection; I48.92 Unspecified atrial flutter; E11.9 Type 2 diabetes mellitus without complications; I11.0 Hypertensive heart disease with heart failure; G47.33 Obstructive sleep apnea (adult) (pediatric); R29.6 Repeated falls; N40.0 Benign prostatic hyperplasia without lower urinary tract symptoms; F41.9 Anxiety disorder, unspecified; Z66 Do not resuscitate; R00.1 Bradycardia, unspecified; Z79.84 Long term (current) use of oral hypoglycemic drugs; Z79.82 Long term (current) use of aspirin; Z79.899 Other long term (current) drug therapy; Z21 Asymptomatic human immunodeficiency virus [HIV] infection status
CPT/HCPCS: 36415; 71045; 80048; 80053; 80061; 80076; 80162; 82803; 82962; 83605; 83690; 83735; 83880; 84145; 84484; 85007; 85014; 85018; 85025; 85048; 85049; 87040; 87070; 87077; 87081; 87205; 87633; 93005; 93306; 94640; 94660; 94761; 97163; 97166; J0692; J1650; J1939; J1956; J2919; J7050

== ENCOUNTER 2025-04-18 22:51 | Emergency (ER) | payer OTHER, SELFPAY ==
--- NOTE | 2025-04-18 22:59 | HMH.EDGENADL ---
Discharge Plan Disposition Patient Disposition: Clinical Impressions Clinical Impression: Cardiopulmonary arrest Discharge ED Provider: Grayson Sauceda General Adult HPI General Stated complaint: Code Time Seen by Provider: 04/18/25 22:59 Mode of Arrival: EMS Source of Information: Relative and EMS Limitations: No Limitations History of Present Illness HPI narrative: Rachid Altman is a 70 male with a history of HIV, chronic hypoxic respiratory failure, A-fib, diabetes, COPD who presents to the ED via EMS as a code blue. Per EMS, they were called out for a lift assist and when they arrived, patient was down in the bathroom floor and unresponsive. Per EMS, he appeared to be in rigor mortise and was blue in the face. They state that he did have a faint pulse at that time and initial heart rate was in the 20s, however, was asystole during the entire transport. Initially CPR was started en route and was in progress at the time of EMS arrival, but family was at the hospital on EMS arrival, patient's and daughter, who stated that he expressed that he wanted to be made DNR during his most recent admission and they want to respect his wishes. Given this, resuscitation efforts were stopped, a bedside vurqz-ft-prpl ultrasound showed no cardiac activity. No pulse is appreciated. Patient is a GCS of 3. Patient has no spontaneous breaths and time of was called at 2252 Related Data Home Medications ?Medication ?Instructions ?Recorded ?Confirmed finasteride 5 mg tablet 5 mg PO DAILY 11/13/18 03/27/25 tamsulosin 0.4 mg capsule 0.4 mg PO HS 01/06/20 03/27/25 cholecalciferol (vitamin D3) 25 25 mcg PO DAILY 12/30/20 03/27/25 mcg (1,000 unit) capsule venlafaxine 150 mg 150 mg PO DAILY 09/16/23 03/27/25 capsule,extended release 24 hr (Effexor XR) albuterol sulfate 90 mcg/actuation 1 inh inhalation QIDP PRN 08/20/24 03/27/25 aerosol inhaler Shortness Of Breath sitagliptin 100 mg tablet 100 mg PO DAILY 08/20/24 03/27/25 aspirin 81 mg capsule 81 mg PO DAILY 11/04/24 03/27/25 bictegravir 50 mg-emtricitabine 1 tab PO DAILY 11/04/24 03/27/25 200 mg-tenofovir alafenam 25 mg tablet (Biktarvy) lidocaine 5 % topical patch 2 patch topical DAILY 11/04/24 03/27/25 tiotropium 2.5 mcg-olodaterol 2.5 2 puff inhalation DAILY 11/04/24 03/27/25 mcg/actuation mist for inhalation (Stiolto Respimat) Bifidobacterium longum 10 million 10 cell PO DAILY 02/28/25 03/27/25 cell capsule (Align (B.longum)) buprenorphine 7.5 mcg/hour weekly 1 patch transdermal WEEKLY 02/28/25 03/27/25 transdermal patch fish, borage, flaxseed oils-omega 1 cap PO DAILY 03/27/25 03/27/25 3,6,9 comb no.1 1,200 mg capsule ([place] 3-6-9) metoprolol succinate 100 mg 100 mg PO DAILY 03/27/25 03/27/25 tablet,extended release 24 hr Previous Rx's ?Medication ?Instructions ?Recorded pantoprazole 40 mg tablet,delayed 40 mg PO DAILY 30 days #0 tabs 08/23/24 release bumetanide 2 mg tablet 2 mg PO BIDL 30 days #60 tabs 11/05/24 digoxin 125 mcg (0.125 mg) tablet 125 mcg PO DAILY 30 days #30 tabs 03/03/25 gabapentin 300 mg capsule 300 mg PO TID 30 days #0 caps 03/29/25 levofloxacin 750 mg tablet 750 mg PO DAILY 3 days #3 tabs 03/29/25 methocarbamol 750 mg tablet 750 mg PO Q8HP PRN Muscle Spasm 30 03/29/25 days #0 tabs Allergies Allergy/AdvReac Type Severity Reaction Status Date / Time SANDRA Inhibitors Allergy Unknown Unknown Verified 02/27/25 20:15 allergy reaction clofibrate Allergy Unknown Unknown Verified 02/27/25 20:15 allergy reaction enalapril Allergy Unknown Unknown Verified 02/27/25 20:15 allergy reaction erythromycin base Allergy Unknown Unknown Verified 02/27/25 20:15 allergy reaction gemfibrozil Allergy Unknown Unknown Verified 02/27/25 20:15 allergy reaction hepatitis A virus vaccine Allergy Unknown Unknown Verified 02/27/25 20:15 allergy reaction hydralazine Allergy Unknown Unknown Verified 02/27/25 20:15 allergy reaction Macrolide Antibiotics Allergy Unknown Unknown Verified 02/27/25 20:15 allergy reaction pravastatin (From Pravachol) Allergy Unknown Unknown Verified 02/27/25 20:15 allergy reaction Ztovpgv-TJN-DqZ Reductase Allergy Unknown Unknown Verified 02/27/25 20:15 Inhibitor (Dyldsxb-Uyt-Slf allergy Reductase Inhibitor) reaction [facility] Disclaimer: The information contained in this section may have been updated after the patient was seen, as this information can be updated by other users. Medical History (Updated 04/18/25 @ 23:07 by Grayson Sauceda MD) Bradycardia Pleural effusion, bilateral Pneumonia Encounter for monitoring digoxin therapy Diabetic toe ulcer Atrial flutter Acute on chronic heart failure with preserved ejection fraction (HFpEF) HLD (hyperlipidemia) GERD (gastroesophageal reflux disease) CAD (coronary artery disease) CHF (congestive heart failure) Acute respiratory failure with hypoxia and hypercarbia Hypertension Chronic venous stasis dermatitis of both lower extremities HIV (human immunodeficiency virus infection) Diabetes mellitus, type 2 Closed fracture of neck of left humerus GI bleed due to NSAIDs Morbid obesity with BMI of 45.0-49.9, adult Family History Other No significant family history Social History Smoking Status: Never smoker second hand exposure: No alcohol intake: never substance use type: denies use current occupational status: retired Travel in the last 8 weeks?: None household members: spouse and family housing: house current occupational exposures/hazards: No caffeine: Yes Other Medical History Have you received the Flu Vaccine for this season: No Have you received the Pneumonia Vaccine: No ROS Obtained: Yes unobtainable due to mental status Physical Exam General General appearance: other (Unresponsive) Comment: GCS3 Respiratory Respiratory exam: Present other (No spontaneous breaths) Cardiovascular Cardiovascular exam: Present other (no pulse) Neurological Exam Neurological exam: Present other (GCS 3) Skin Skin exam: Present other (ashen, pale) Medical Decision Making Medical Records Screening: Per USPSTF and CDC recommendations, given the prevalence of disease in our region, it is our hospital?s policy to screen for HIV and viral Hepatitis for all patients aged 18 and over and those with ongoing risk factors. Valentin Inquiry Pt receiving controlled substance: No Medical Decision Narrative: Rachid Altman is a 70 male with a history of HIV, chronic hypoxic respiratory failure, A-fib, diabetes, COPD who presents to the ED via EMS as a code blue. Per EMS, they were called out for a lift assist and when they arrived, patient was down in the bathroom floor. Per EMS, he appeared to be in rigor mortise and was blue in the face. They state that he did have a faint pulse at that time and initial heart rate was in the 20s, however, was asystole during the entire transport. Initially CPR was started and route and was in progress at the time of EMS arrival, but immediately upon arrival, family was at the hospital, patient's and daughter, who stated that he expressed that he wanted to be made DNR during his most recent admission and they want to respect his wishes. Given this, resuscitation efforts were stopped, a bedside ahtif-xx-raoz ultrasound showed no cardiac activity. No pulse is appreciated. Patient is a GCS of 3. Patient has no spontaneous breaths and time of was called at 2252. Critical Care Critical Care Time Critical Care Time: No
--- NOTE | 2025-04-18 23:00 | PC.NURSE ---
Marketing Proposal Specialist notified and is en route
--- NOTE | 2025-04-18 23:00 | PC.NURSE ---
[id number] Spoke with Paty Spann at [facility], patient is a rule out [phone]
[2025-04-18 23:04] VITALS: BP 000/00; PULSE 0; RESP 0; TEMP -17.7; TEMP 0; O2SAT 0; BMI 36.3
--- NOTE | 2025-04-18 23:13 | PC.NURSE ---
Pt arrived via EMS with manual compressions given. Pt's and daughter asked us to stop as pt signed a DNR/DNI on his last visit. Compressions were stopped prior to pt going into room 4. Dr. Sauceda did U/S for cardiac activity. TOD 1698. Family present
--- NOTE | 2025-04-18 23:15 | PC.NURSE ---
Fred Hester from [facility] on scene.
--- NOTE | 2025-04-18 23:17 | EXP.DEATH.NO ---
Pronouncement Note Date and Time of Date of : 04/18/25 Time of : 22:52 PCOD Preliminary cause of : Cardiopulmonary arrest Summary Additional details: Rachid Altman is a 70 male with a history of HIV, chronic hypoxic respiratory failure, A-fib, diabetes, COPD who presents to the ED via EMS as a code blue. Per EMS, they were called out for a lift assist and when they arrived, patient was down in the bathroom floor and unresponsive. Per EMS, he appeared to be in rigor mortise and was blue in the face. They state that he did have a faint pulse at that time and initial heart rate was in the 20s, however, was asystole during the entire transport. Initially CPR was started en route and was in progress at the time of EMS arrival, but family was at the hospital on EMS arrival, patient's and daughter, who stated that he expressed that he wanted to be made DNR during his most recent admission and they want to respect his wishes. Given this, resuscitation efforts were stopped, a bedside pixbj-yu-hcle ultrasound showed no cardiac activity. No pulse is appreciated. Patient is a GCS of 3. Patient has no spontaneous breaths and time of was called at 2252 Additional Data Confirmation of : no pulse, no respirations, no heart sounds and pupils fixed and dilated Family: at bedside Attending/PCP notified?: Yes Attending physician: Dr. Braulio Sauceda Was code activated?: Yes Autopsy should be considered if:: Unknown or unanticipated medical complications Cause is not known with certainty on clinical grounds Would allay concerns of the public/family regarding Unexplained/unexpected apparently natural and not subject to a forensic medical jurisdiction DOA Within 24 hours of admission Sustained or apparently sustained injury while in the hospital Result of high risk, infectious and contagious disease Obstetric and pediatric arising from environmental or occupational hazard Unexplained/unexpected from dental, medical, or surgical diagnostic procedures and/or therapies Would disclose a known or suspected illness which also may have a bearing on survivors or recipients of transplanted organs Autopsy requested?: No Refused by family
--- NOTE | 2025-04-18 23:20 | PC.NURSE ---
Funeral Service Licensee on scene
[2025-04-19 00:37] VITALS: BP 000/00; PULSE 0; RESP 0; TEMP -17.7; TEMP 0; O2SAT 0
--- NOTE | 2025-04-19 00:40 | PC.NURSE ---
Pt d/c'd with Fred Hester
--- OUTSIDE RECORDS SUMMARY | 2025-04-21 12:28 | XMS_ITS | Encounter Summary ---
Author Organization Healthcare Address [address] [place] [address] Care Team Providers Care Mechanics Supervisor Name Role Phone Zakiya Mcclure MD Primary Care Provider + [phone] Vannesa Hernandez LCSW Unavailable Unavailable Encounter Details Date Type Department Care Team (Late st Contact Info) Description 06/11/2020 Orders Only External Location [address] [place] [address] Provider, External Social History Tobacco Use Types [...] documented as of this encounter Care Teams Mechanics Supervisor Relationship Specialty Start Date End Date Zakiya Mcclure MD [address] [place] [phone] PCP - General 09/16/23 Vannesa Hernandez, [place] [id number] Nuclear Supervising Operator Care Connector 06/11/20 06/11/20 documented as of this encounter
--- OUTSIDE RECORDS SUMMARY | 2025-04-21 12:28 | XMS_ITS | Encounter Summary ---
Author Organization Healthcare Address [address] [place] [address] Care Team Providers Care Market Research Manager Name Role Phone Zakiya Mcclure MD Primary Care Provider + [phone] Vannesa Hernandez LCSW Unavailable Unavailable Encounter Details Date Type Department Care Team (Late st Contact Info) Description 06/11/2020 Orders Only External Location [address] [place] [address] Provider, External Social History Tobacco Use Types [...] documented as of this encounter Care Teams Market Research Manager Relationship Specialty Start Date End Date Zakiya Mcclure MD [address] [place] [phone] PCP - General 09/16/23 Vannesa Hernandez, [place] [phone] Geropsychologist Conveyor System Operator 06/11/20 06/11/20 documented as of this encounter
--- OUTSIDE RECORDS SUMMARY | 2025-04-21 12:28 | XMS_ITS | Encounter Summary ---
Author Organization Healthcare Address [address] [place] [address] Care Team Providers Care House Coordinator Name Role Phone Zakiya Mcclure MD Primary Care Provider + [phone] Vannesa Hernandez LCSW Unavailable Unavailable Encounter Details Date Type Department Care Team (Late st Contact Info) Description 06/11/2020 Orders Only External Location [address] [place] [address] Provider, External Social History Tobacco Use Types [...] documented as of this encounter Care Teams House Coordinator Relationship Specialty Start Date End Date Zakiya Mcclure MD [address] [place] [phone] PCP - General 09/16/23 Vannesa Hernandez, [place] [phone] Set Painter Lease Analyst 06/11/20 06/11/20 documented as of this encounter
--- OUTSIDE RECORDS SUMMARY | 2025-04-21 12:28 | XMS_ITS | Encounter Summary ---
Author Organization Healthcare Address [address] [place] [address] Care Team Providers Care Technical Operations Manager Name Role Phone Zakiya Mcclure MD Primary Care Provider + [phone] Vannesa Hernandez LCSW Unavailable Unavailable Encounter Details Date Type Department Care Team (Late st Contact Info) Description 06/11/2020 Orders Only External Location [address] [place] [address] Provider, External Social History Tobacco Use Types [...] documented as of this encounter Care Teams Technical Operations Manager Relationship Specialty Start Date End Date Zakiya Mcclure MD [address] [place] [phone] PCP - General 09/16/23 Vannesa Hernandez, [place] [phone] Financial Aid Director Club Concierge 06/11/20 06/11/20 documented as of this encounter
--- OUTSIDE RECORDS SUMMARY | 2025-04-21 12:28 | XMS_ITS | Encounter Summary ---
Author Organization Healthcare Address [address] [place] [address] Care Team Providers Care Ventilation Mechanic Name Role Phone Zakiya Mcclure MD Primary Care Provider + [phone] Vannesa Hernandez LCSW Unavailable Unavailable Encounter Details Date Type Department Care Team (Late st Contact Info) Description 06/11/2020 Orders Only External Location [address] [place] [address] Provider, External Social History Tobacco Use Types [...] documented as of this encounter Care Teams Ventilation Mechanic Relationship Specialty Start Date End Date Zakiya Mcclure MD [address] [place] [address] PCP - General 09/16/23 Vannesa Hernandez, [place] [phone] Substation Engineer Foot Miter Operator 06/11/20 06/11/20 documented as of this encounter
--- OUTSIDE RECORDS SUMMARY | 2025-04-21 12:29 | XMS_ITS | Clinical Summary ---
Author Organization Healthcare Address [address] [place] [address] Care Team Providers Care Production Consultant Name Role Phone Zakiya Mcclure MD Primary Care Provider + [phone] Allergies Active Allergy Reactions Criticality Noted Date [...] consult Resolved Renal insufficiency 09/17/2023 09/17/19 24 Family History Medical History Relation Name Comments [...] place to sleep or slept in a retirement (including now)? No 09/18/2023 CAGE ASSESSMENT Answer [...] drink first t primo in the morning (EYE-SIDE STITCHING MACHINE OPERATOR) to steady your nerves or [...] Screening 1955 [facility]-Medicare Annual Wellness (AWV) 1955 [facility]-Infant/Child/Adol SDOH Screenings 1955 Diabetes: Dental Exam 1964 [...] 09/03/1997 [facility]-Diabetes: Hemoglobin A1C 12/18/2023 09/18/2023, 06/13/2020 [id number] Vaccine ( season) 2024 08/08/2022, 07/08/2021, 10/11/2020, [...] this topic Medical Devices Implanted Type Area Traffic Control Signaler Device Identifier Shelf Expiration Date Model / Serial / Lot Plate Plate Left: Arm Plate Plate N/A: Other (See Comments) Description:Head Ring Ring Right: Eye Ló[employer] Viper2 Straight 120mm - S. - [id number] Implanted:Qty : 2 on 09/20/2023 by Los Mendoza MD at [facility] [id number] 09/20/2024 [id number] / . / Screw Screw N/A: Back Screw 6.0mm Viper Cfx Fen Xtab 50mm - S. - [id number] Implanted:Qty : 4 on 09/20/2023 by Los Mendoza MD at [facility] [employer]w [id number] 09/20/2024 [id number] / . / Screw 6.0mm Viper Cfx Fen Xtab 45mm - S. - [id number] Implanted:Qty : 4 on 09/20/2023 by Los Mendoza MD at [facility] Screw [id number] 09/20/2024 [id number] / . / Single Inner Setscrew - S. - [id number] Implanted:Qty : 8 on 09/20/2023 by Los Mendoza MD at [facility] Screw [id number] 09/20/2024 [id number] / . / Procedures Procedure Name Priority [...] Adults <6.0% Children and Adolescents <7.5% Source: [place] [employer]. Standards of medical care in diabetes,2017. Diabetes Care.2017:40 (suppl 1):S1-S135. HbA1c assay performed by an ion-exchange chromatography method that is certified traceable to the DCCT. us Dianelys Monge APRN LAB BLOOD ORDERABLES Elda l Result [facility] [address] [place] [address] * [place] Hepatitis C Antibody (06/11/2020 4:49 PM EDT) [place] Hepatitis C Ab NEGATIVE Reference Range: Negative [facility] 06/11/2020 4:49 PM EDT 06/11/2020 4:58 PM EDT Yasmany Butterfield MD LAB BLOOD ORDERABLES Final Result SUNQUEST from Last 3 Months or Most Recently Relevant to Health Maintenance Additional Health Concerns Infection Onset Date Last Indicated MRSA Comment:MRSA (methicillin resistant Staphylococcus aureus) 06/21/2020 01/25/2021 Insurance [facility] [employer] MEDICARE Advance Directives * Full Code (Latest Code Status on File) Date Activated Date Inactivated Comments 09/17/2023 1:42 AM 09/25/2023 5:18 PM Question Answer Comments Patient has decision-making capacity? Yes Care Teams Production Consultant Relationship Specialty Start Date End Date Zakiya Mcclure MD [address] [place] [address] PCP - General 09/16/23
--- OUTSIDE RECORDS SUMMARY | 2025-05-11 20:00 | XMS_ITS | Clinical Summary ---
Author Organization Unknown Care Team Providers Care Butter Maker Name Role Phone 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 Active 03-26 00:00: 00 ACUTE AND CHRONIC RESPIRATORY FAILURE WITH HYPOXIA Active 03-26 00:00: 00 NONTRAUMATIC HEMATOMA OF SOFT TISSUE Active 2023-09 00:00: 00 TYPE 2 DIABETES MELLITUS WITH HYPERGLYCEMI A Active 09-03 00:00: 00 HYPERTENSIVE HEART DISEASE WITH HEART FAILURE Active 09-03 00:00: 00 ACUTE ON CHRONIC DIASTOLIC (CONGESTIVE) HEART FAILURE Active 03-26 00:00: 00 VENOUS INSUFFICIENC Y (CHRONIC) (PERIPHERAL) Active 02-27 00:00: 00 ATHSCL HEART DISEASE OF [place] CORONARY ARTERY W/O ANG PCTRS Active 09-03 00:00: 00 CHRONIC ATRIAL FIBRILLATION , UNSPECIFIED Active 09-03 00:00: 00 MULTIPLE FX OF RIBS, LEFT SIDE, SUBS FOR FX W ROUTN HEAL Active 2023-09 00:00: 00 MUSCLE WEAKNESS (GENERALIZED ) Active 09-03 00:00: 00 BENIGN PROSTATIC HYPERPLASIA WITHOUT LOWER URINRY TRACT SYMP Active 09-03 00:00: 00 OBSTRUCTIVE SLEEP APNEA (ADULT) (PEDIATRIC) Active 09-03 00:00: 00 ANXIETY DISORDER, UNSPECIFIED Active 09-03 00:00: 00 GASTRO-ESOPH AGEAL REFLUX DISEASE WITHOUT ESOPHAGITIS Active 02-27 00:00: 00 HYPERLIPIDEM IA, UNSPECIFIED Active 02-27 00:00: 00 OBESITY, UNSPECIFIED Active 09-03 00:00: 00 BODY MASS INDEX [BMI] 33.0-33.9, ADULT Active 09-03 00:00: 00 PERSONAL HISTORY OF PNEUMONIA (RECURRENT) Active 2023-09 217 00:00: 00 HISTORY OF FALLING Active 09-03 00:00: 00 DEPENDENCE ON SUPPLEMENTAL OXYGEN Active 09-03 00:00: 00 ENGINE HOSTLER (CURRENT) USE OF INSULIN Active 09-03 00:00: 00 ASYMPTOMATIC HUMAN IMMUNODEFICI ENCY VIRUS INFECTION STATUS Active 09-03 00:00: 00 UNSPECIFIED FALL, SUBSEQUENT ENCOUNTER Active 11-01 00:00: 00 PENITENTIARY (CURRENT) USE OF INHALED STEROIDS Active 09-03 00:00: 00 Allergies, Adverse Reactions, Alerts Allergy [...] 11-20 00:00: 00 06-23 23:59 :00 No [id number] PAIN 3 tablet 2 TIMES DAILY 3 tablet 2 TIMES DAILY (route: oral) Med Classific ation: Analgesic , Anti-infl ammatory or Antipyret ic alogliptin 25 mg tablet 11-20 00:00: 00 06-23 23:59 :00 No [id number] BLOOD SUGAR 1 tablet DAILY 1 tablet DAILY (route: oral) Med Classific ation: Endocrine Aspirin Childrens 81 mg chewable tablet 11-20 00:00: 00 06-23 23:59 :00 No [id number] HEART 1 tablet DAILY 1 tablet DAILY (route: oral) Med Classific ation: Hematolog ical Agents bumetanide 2 mg tablet 11-20 00:00: 00 06-23 23:59 :00 No [id number] EDEMA 1 tablet DAILY 1 tablet DAILY (route: oral) Med Classific ation: Cardiovas cular Therapy Agents cholecalcif trav (vitamin D3) 25 mcg (1,000 unit) tablet 11-20 00:00: 00 06-23 23:59 :00 No [id number] SUPPLEMENT 1 tablet DAILY 1 tablet DAILY (route: oral) Med Classific ation: Electroly te Balance-N utritiona l Products ferrous sulfate 324 mg (65 mg iron) tablet,chapito yed release 11-20 00:00: 00 06-23 23:59 :00 No [id number] SUPPLEMENT 1 tablet DAILY 1 tablet DAILY (route: oral) Med Classific ation: Electroly te Balance-N utritiona l Products finasteride 5 mg tablet 11-20 00:00: 00 06-23 23:59 :00 No [id number] PROSTATE 1 tablet DAILY 1 tablet DAILY (route: oral) Med Classific ation: Genitouri nary Therapy gabapentin 300 mg capsule 11-20 00:00: 00 06-23 23:59 :00 No [id number] NERVE DAMAGE Per instruc tions DIRECTED Per instructio ns DIRECTED (route: oral) Med Classific ation: Central Nervous System Agents glucose 4 gram chewable tablet 11-20 00:00: 00 06-23 23:59 :00 No [id number] LOW BLOOD SUGAR 4 tablet NEEDED 4 tablet NEEDED (route: oral) Med Classific ation: Endocrine Humulin R U-500 (Conc) Insulin Kwikpen 500 unit/mL (3 mL) subcutane s 11-19 00:00: 00 06-23 23:59 :00 No [id number] T2DM Per instruc tions DIRECTED Per instructio ns DIRECTED (route: subcutaneo ) Med Classific ation: Endocrine Jardiance 25 mg tablet 11-20 00:00: 00 06-23 23:59 :00 No [id number] T2DM 0.5 tablet DAILY 0.5 tablet DAILY (route: oral) Med Classific ation: Endocrine methocarbam ol 750 mg tablet 11-20 00:00: 00 06-23 23:59 :00 No [id number] MUSCLE SPASMS 1 tablet EVERY 6 HOURS 1 tablet EVERY 6 HOURS (route: oral) Med Classific ation: Locomotor System metoprolol tartrate 100 mg tablet 11-20 00:00: 00 06-23 23:59 :00 No [id number] BLOOD PRESSURE 1 tablet 2 TIMES DAILY 1 tablet 2 TIMES DAILY (route: oral) Med Classific ation: Cardiovas cular Therapy Agents pantoprazol e 40 mg tablet,chapito yed release 11-20 00:00: 00 06-23 23:59 :00 No [id number] STOMACH 1 tablet 2 TIMES DAILY 1 tablet 2 TIMES DAILY (route: oral) Med Classific ation: Gastroint estinal Therapy Agents tamsulosin 0.4 mg capsule 11-20 00:00: 00 06-23 23:59 :00 No [id number] PROSTATE 1 capsule BEDTIME 1 capsule BEDTIME (route: oral) Med Classific ation: Genitouri nary Therapy tramadol 50 mg tablet 11-20 00:00: 00 06-23 23:59 :00 No [id number] PAIN 1 tablet EVERY 6 HOURS 1 tablet EVERY 6 HOURS (route: oral) Med Classific ation: Analgesic , Anti-infl ammatory or Antipyret ic venlafaxine ER 150 mg tablet,exte nded release 24 hr 11-20 00:00: 00 06-23 23:59 :00 No [id number] PAIN 1 tablet DAILY 1 tablet DAILY (route: oral) Med Classific ation: Central Nervous System Agents etodolac 400 mg tablet 11-20 00:00: 00 06-23 23:59 :00 No [id number] PAIN/INFLAM MATION 1 tablet EVERY 6 HOURS 1 tablet EVERY 6 HOURS (route: oral) Med Classific ation: Analgesic , Anti-infl ammatory or Antipyret ic alogliptin 25 mg tablet 2023-09 00:00: 00 09-15 00:00 :00 No [id number] T2DM 1 tablet DAILY 1 tablet DAILY (route: oral) Med Classific ation: Endocrine ascorbic acid (vitamin C) 500 mg tablet 2023-09 00:00: 00 Yes [id number] SUPPLEMENT 1 tablet DAILY 1 tablet DAILY (route: oral) Med Classific ation: Electroly te Balance-N utritiona l Products Aspirin Childrens 81 mg chewable tablet 2023-09 00:00: 00 09-15 00:00 :00 No [id number] HEART 1 tablet DAILY 1 tablet DAILY (route: oral) Med Classific ation: Hematolog ical Agents Biktarvy 50 mg-200 mg-25 mg tablet 2023-09 00:00: 00 Yes [id number] IMMUNE 1 tablet DAILY 1 tablet DAILY (route: oral) Med Classific ation: Anti-Infe ctive Agents bumetanide 2 mg tablet 2023-09 00:00: 00 Yes [id number] EDEMA 1 tablet 2 TIMES DAILY 1 tablet 2 TIMES DAILY (route: oral) Med Classific ation: Cardiovas cular Therapy Agents ferrous sulfate 324 mg (65 mg iron) tablet,chapito yed release 2023-09 00:00: 00 Yes [id number] SUPPLEMENT 1 tablet DAILY 1 tablet DAILY (route: oral) Med Classific ation: Electroly te Balance-N utritiona l Products finasteride 5 mg tablet 2023-09 00:00: 00 Yes [id number] PROSTATE 1 tablet DAILY 1 tablet DAILY (route: oral) Med Classific ation: Genitouri nary Therapy gabapentin 300 mg capsule 2023-09 00:00: 00 03-31 00:00 :00 No [id number] PAIN 2 capsule DAILY 2 capsule DAILY (route: oral) Med Classific ation: Central Nervous System Agents Humulin R U-500 (Conc) Insulin Kwikpen 500 unit/mL (3 mL) subcutaneou s 2023-09 00:00: 00 09-15 00:00 :00 No [id number] T2DM 65 unit 2 TIMES DAILY 65 unit 2 TIMES DAILY (route: subcutaneo us) Med Classific ation: Endocrine Jardiance 25 mg tablet 2023-09 00:00: 00 09-15 00:00 :00 No [id number] T2DM 0.5 tablet DAILY 0.5 tablet DAILY (route: oral) Med Classific ation: Endocrine methocarbam ol 750 mg tablet 2023-09 00:00: 00 Yes [id number] MUSCLE SPASMS 1 tablet 3 TIMES DAILY 1 tablet 3 TIMES DAILY (route: oral) Med Classific ation: Locomotor System metoprolol tartrate 100 mg tablet 2023-09 00:00: 00 Yes [id number] BLOOD PRESSURE 1 tablet 2 TIMES DAILY 1 tablet 2 TIMES DAILY (route: oral) Med Classific ation: Cardiovas cular Therapy Agents Protonix 40 mg tablet,chapito yed release 2023-09 00:00: 00 Yes [id number] GERD 1 tablet DAILY 1 tablet DAILY (route: oral) Med Classific ation: Gastroint estinal Therapy Agents Stiolto Respimat 2.5 mcg-2.5 mcg/actuati on solution for inhalation 2023-09 00:00: 00 Yes [id number] BREATHING 2 puff DAILY 2 puff DAILY (route: inhalation ) Med Classific ation: Respirato ry Therapy Agents tamsulosin 0.4 mg capsule 2023-09 00:00: 00 Yes [id number] PROSTATE 1 capsule DAILY 1 capsule DAILY (route: oral) Med Classific ation: Genitouri nary Therapy tramadol 50 mg tablet 2023-09 00:00: 00 Yes [id number] PAIN 1 tablet 3 TIMES DAILY 1 tablet 3 TIMES DAILY (route: oral) Med Classific ation: Analgesic , Anti-infl ammatory or Antipyret ic venlafaxine ER 150 mg tablet,exte nded release 24 hr 2023-09 00:00: 00 Yes [id number] MOOD 1 tablet DAILY 1 tablet DAILY (route: oral) Med Classific ation: Central Nervous System Agents Ventolin HFA 90 mcg/actuati on aerosol inhaler 2023-09 00:00: 00 09-15 00:00 :00 No [id number] BREATHING 2 puff EVERY 4 HOURS 2 puff EVERY 4 HOURS (route: inhalation ) Med Classific ation: Respirato ry Therapy Agents Vitamin D3 25 mcg (1,000 unit) tablet 2023-09 00:00: 00 Yes [id number] SUPPLEMENT 1 tablet DAILY 1 tablet DAILY (route: oral) Med Classific ation: Electroly te Balance-N utritiona l Products digoxin 125 mcg (0.125 mg) tablet 09-15 00:00: 00 02-20 23:59 :00 No [id number] HEART 1 tablet DAILY 1 tablet DAILY (route: oral) Med Classific ation: Cardiovas cular Therapy Agents diltiazem 60 mg tablet 09-15 00:00: 00 Yes [id number] ANGINA 1 tablet EVERY 8 HOURS 1 tablet EVERY 8 HOURS (route: oral) Med Classific ation: Cardiovas cular Therapy Agents Jardiance 10 mg tablet 09-15 00:00: 00 02-20 23:59 :00 No [id number] T2DM 1 tablet DAILY 1 tablet DAILY (route: oral) Med Classific ation: Endocrine sitagliptin 100 mg tablet 09-15 00:00: 00 Yes [id number] T2DM 1 tablet DAILY 1 tablet DAILY (route: oral) Med Classific ation: Endocrine buprenorphi ne 7.5 mcg/hour weekly transdermal patch 02-23 00:00: 00 Yes [id number] PAIN 1 patch, transde rmal weekly WEEKLY 1 patch, transderma l weekly WEEKLY (route: transderma l) Med Classific ation: Analgesic , Anti-infl ammatory or Antipyret ic Advil 200 mg tablet 02-20 00:00: 00 Yes [id number] PAIN 2 tablet DAILY 2 tablet DAILY (route: oral) Med Classific ation: Analgesic , Anti-infl ammatory or Antipyret ic amoxicillin 875 mg-potassiu m clavulanate 125 mg tablet 02-23 00:00: 00 02-27 23:59 :00 No [id number] PNEUMONIA 1 tablet 2 TIMES DAILY 1 tablet 2 TIMES DAILY (route: oral) Med Classific ation: Anti-Infe ctive Agents azithromyci n 500 mg tablet 02-23 00:00: 00 Yes [id number] PNEUMONIA 1 tablet DAILY 1 tablet DAILY (route: oral) Med Classific ation: Anti-Infe ctive Agents Humulin R U-500 (Conc) Insulin Kwikpen 500 unit/mL (3 mL) subcutaneou s 02-24 00:00: 00 Yes [id number] DM Per instruc tions 2 TIMES DAILY Per instructio ns 2 TIMES DAILY (route: subcutaneo us) Med Classific ation: Endocrine oxygen gas for inhalation 02-20 00:00: 00 Yes [id number] SOA 3 Liter O2 - CONTINUOUS 3 Liter O2 - CONTINUOUS (route: inhalation ) Med Classific ation: Medical Supplies and Durable Medical Equipment (DME) digoxin 125 mcg (0.125 mg) tablet 03-14 00:00: 00 Yes [id number] AFIB 1 tablet DAILY 1 tablet DAILY (route: oral) Med Classific ation: Cardiovas cular Therapy Agents gabapentin 300 mg capsule 03-31 00:00: 00 Yes [id number] NERVE PAIN 1 capsule DAILY 1 capsule DAILY (route: oral) Med Classific ation: Central Nervous System Agents levofloxaci n 750 mg tablet 03-30 00:00: 00 04-02 23:59 :00 No [id number] ANTIBIOTICS 1 tablet DAILY 1 tablet DAILY (route: oral) Med Classific ation: Anti-Infe ctive Agents Vital Signs Vital Name Observation Time Observation Value Commen ts Temperature 2025-04-15 13:12:00.000 98 [degF] Temperature 2025-04-13 10:27:00.000 98 [degF] Temperature 2025-04-10 10:16:00.000 98 [degF] Temperature 2025 15:30:00.000 97.9 [degF] Temperature 2025-03-31 12:10:00.000 98.3 [degF] BMI (%) 2025-03-31 12:10:00.000 31 kg/m2 Height 2025-03-31 12:10:00.000 73 [in_us] Pulse 2025-04-15 13:12:00.000 76 /min Pulse 2025-04-13 10:27:00.000 68 /min Pulse 2025-04-10 10:16:00.000 61 /min Pulse 2025 15:30:00.000 73 /min Pulse 2025-03-31 12:10:00.000 68 /min O2 Saturation (%) 2025-04-15 13:12:00.000 97 % O2 Saturation (%) 2025-04-13 10:27:00.000 92 % O2 Saturation (%) 2025-04-10 10:16:00.000 70 % O2 Saturation (%) 2025 15:30:00.000 96 % O2 Saturation (%) 2025-03-31 12:10:00.000 94 % Respirations 2025-04-15 13:12:00.000 18 /min Respirations 2025-04-13 10:27:00.000 18 /min Respirations 2025-04-10 10:16:00.000 18 /min Respirations 2025 15:30:00.000 18 /min Respirations 2025-03-31 12:10:00.000 18 /min Weight (lbs) 2025-03-31 12:10:00.000 240 [lb_av] Systolic Blood Pressure 2025-04-15 13:12:00.000 130 mm [Hg] Systolic Blood Pressure 2025-04-13 10:27:00.000 124 mm [Hg] Systolic Blood Pressure 2025-04-10 10:16:00.000 130 mm [Hg] Systolic Blood Pressure 2025 15:30:00.000 120 mm [Hg] Systolic Blood Pressure 2025-03-31 12:10:00.000 104 mm [Hg] Diastolic Blood Pressure 2025-04-15 13:12:00.000 64 mm [Hg] Diastolic Blood Pressure 2025-04-13 10:27:00.000 60 mm [Hg] Diastolic Blood Pressure 2025-04-10 10:16:00.000 60 mm [Hg] Diastolic Blood Pressure 2025 15:30:00.000 68 mm [Hg] Diastolic Blood Pressure 2025-03-31 12:10:00.000 64 mm [Hg] Plan of Treatment Planned Activity Planned Date Details Comments Future Scheduled Test AGENCY MAY PERFORM A RESUMPTION OF CARE VISIT FOLLOWING ANY HOSPITAL ADMISSION. PT TO EVALUATE, OBSERVE / ASSESS, AND MONITOR, MACHINIST BENCH TO OBSERVE AND MONITOR, PROVIDE SKILLED THERAPEUTIC INTERVENTION, ACTIVITY, EDUCATION, AND TRAINING TO ADDRESS; [code = AGENCY MAY PERFORM A RESUMPTION OF CARE VISIT FOLLOWING ANY HOSPITAL ADMISSION. PT TO EVALUATE, OBSERVE / ASSESS, AND MONITOR, MACHINIST BENCH TO OBSERVE AND MONITOR, PROVIDE SKILLED THERAPEUTIC INTERVENTION, ACTIVITY, EDUCATION, AND TRAINING TO ADDRESS;] Future Scheduled Test SIT TO/FRO M STAND TRANSFERS (PT/MACHINIST BENCH) [code = SIT TO/FROM STAND TRANSFERS (PT/MACHINIST BENCH)] Future Scheduled Test PT/MACHINIST BENCH TO PROVIDE GAIT TRAINING FOR IMPROVED MOBILITY AND /OR TO NORMALIZE GAIT PATTERN [code = PT/MACHINIST BENCH TO PROVIDE GAIT TRAINING FOR IMPROVED MOBILITY AND /OR TO NORMALIZE GAIT PATTERN] Future Scheduled Test NEUROMUSCU LAR RE-EDUCATION / BALANCE / POSTURAL CONTROL (PT) [code = NEUROMUSCULAR RE-EDUCATION / BALANCE / POSTURAL CONTROL (PT)] Future Scheduled Test THERAPEUTI C EXERCISES AND ESTABLISHING A HOME EXERCISE PROGRAM (PT/MACHINIST BENCH) [code = THERAPEUTIC EXERCISES AND ESTABLISHING A HOME EXERCISE PROGRAM (PT/MACHINIST BENCH)] Future Scheduled Test PT/MACHINIST BENCH TO IDENTIFY FALL RISK FACTORS; EDUCATE THE PATIENT/CAREGIVER ON WAYS TO REDUCE FALL RISK FACTORS AND ESTABLISH HOME EXERCISE PROGRAM TO MINIMIZE FALL RISK. MAY TEACH THE PATIENT FLOOR RECOVERY WHEN CLINICALLY APPROPRIATE [code = PT/MACHINIST BENCH TO IDENTIFY FALL RISK FACTORS; EDUCATE THE PATIENT/CAREGIVER ON WAYS TO REDUCE FALL RISK FACTORS AND ESTABLISH HOME EXERCISE PROGRAM TO MINIMIZE FALL RISK. MAY TEACH THE PATIENT FLOOR RECOVERY WHEN CLINICALLY APPROPRIATE] Future Scheduled Test PT / MACHINIST BENCH T O INSTRUCT PATIENT/CAREGIVER ON RISK FOR HOSPITALIZATION/EMERGENCY ROOM VISITS, TEACH SIGNS AND SYMPTOMS THAT PUT PATIENT AT RISK, WHEN TO NOTIFY NURSE/PHYSICIAN OF COMPLICATIONS/DECLINE, AND WHEN TO CALL 911. [code = PT / MACHINIST BENCH TO INSTRUCT PATIENT/CAREGIVER ON RISK FOR HOSPITALIZATION/EMERGENCY ROOM VISITS, TEACH SIGNS AND SYMPTOMS THAT PUT PATIENT AT RISK, WHEN TO NOTIFY NURSE/PHYSICIAN OF COMPLICATIONS/DECLINE, AND WHEN TO CALL 911.] Future Scheduled Test PT / MACHINIST BENCH T O MONITOR FOR HYPO/HYPERGLYCEMIA AND CONDUCT ROUTINE FOOT INSPECTIONS. RECORD PATIENT REPORTED BLOOD SUGAR LEVELS AND NOTIFY PHYSICIAN AND/OR THE RN CLINICAL COMPUTER SYSTEM TECHNICIAN FOR PHYSICIAN NOTIFICATION IF BLOOD SUGAR LEVELS ARE OUTSIDE ORDERED PARAMETERS. TEACH PATIENT/CAREGIVER ON DAILY FOOT INSPECTIONS [code = PT / MACHINIST BENCH TO MONITOR FOR HYPO/HYPERGLYCEMIA AND CONDUCT ROUTINE FOOT INSPECTIONS. RECORD PATIENT REPORTED BLOOD SUGAR LEVELS AND NOTIFY PHYSICIAN AND/OR THE RN CLINICAL COMPUTER SYSTEM TECHNICIAN FOR PHYSICIAN NOTIFICATION IF BLOOD SUGAR LEVELS ARE OUTSIDE ORDERED PARAMETERS. TEACH PATIENT/CAREGIVER ON DAILY FOOT INSPECTIONS] Future Scheduled Test PT / MACHINIST BENCH T O MONITOR AND EDUCATE ON OXYGEN SATURATION DURING ADLS/IADLS, NOTIFY PHYSICIAN AND/OR THE RN CLINICAL COMPUTER SYSTEM TECHNICIAN FOR PHYSICIAN NOTIFICATION AND IF O2 SATS BELOW PHYSICIAN ORDERED PARAMETERS AFTER 10 MIN OF REST [code = PT / MACHINIST BENCH TO MONITOR AND EDUCATE ON OXYGEN SATURATION DURING ADLS/IADLS, NOTIFY PHYSICIAN AND/OR THE RN CLINICAL COMPUTER SYSTEM TECHNICIAN FOR PHYSICIAN NOTIFICATION AND IF O2 SATS BELOW PHYSICIAN ORDERED PARAMETERS AFTER 10 MIN OF REST] Future Scheduled Test PT TO ASSE SS / MACHINIST BENCH TO MONITOR CARDIO/RESPIRATORY SYSTEM; AND NOTIFY THE PHYSICIAN AND/OR THE RN CLINICAL COMPUTER SYSTEM TECHNICIAN FOR PHYSICIAN NOTIFICATION FOR EARLY SIGNS AND SYMPTOMS OF EXACERBATION OR DETERIORATION. [code = PT TO ASSESS / MACHINIST BENCH TO MONITOR CARDIO/RESPIRATORY SYSTEM; AND NOTIFY THE PHYSICIAN AND/OR THE RN CLINICAL COMPUTER SYSTEM TECHNICIAN FOR PHYSICIAN NOTIFICATION FOR EARLY SIGNS AND SYMPTOMS OF EXACERBATION OR DETERIORATION.] Goal 2025-03-31 Patient Goal - R ETURN TO INDEPENDENCE [...] Goal - Goal Provider Goal - PT LTG: PATIENT WILL DEMONSTRATE IMPROVED ABILITY TO PERFORM SIT TO/FROM STAND TRANSFERS TO REDUCE THE RISK OF SKIN BREAKDOWN AND REDUCE FALL RISK FROM MOD TO IND WITHIN 8 WEEKS Goal Provider Goal - PT STG: PATIENT WILL DEMONSTRATE IMPROVED 6 MINUTE WALK TEST AMBULATION FROM 25 FT MOD TO 100 FT MIN WITH APPROPRIATE AD WITHIN 4 WEEKS. PT LTG: PATIENT WILL DEMONSTRATE IMPROVED 6 MINUTE WALK TEST AMBULATION FROM 25 FT MOD TO 300 FT IND WITH APPROPRIATE AD WITHIN 8 WEEKS. Goal Provider Goal - PT LTG: PATIENT WILL DEMONSTRATE REDUCED FALL RISK EVIDENCED BY TUG TEST (CUT SCORE >11 SECONDS INDICATES INCREASED FALL RISK) IMPROVING FROM UNABLE TO LESS THAN OR EQUAL TO 20 SECONDS WITHIN 8 WEEKS Goal Provider Goal - PT STG: PATIENT WILL DEMONSTRATE IMPROVEMENT ON CHAIR RISE TEST FROM 1 TO 3 INDICATING DECREASED FALL RISK WITHIN 4 WEEKS. PT LTG: PATIENT WILL DEMONSTRATE IMPROVEMENT ON CHAIR RISE TEST FROM 1 TO 5 INDICATING DECREASED FALL RISK WITHIN 8 WEEKS. PT LTG: PATIENT WILL DEMONSTRATE INDEPENDENCE AND COMPLIANCE WITH HEP WITHIN 4 WEEKS Goal Provider Goal - PT LTG: PATIENT/CAREGIVER WILL DEMONSTRATE ADHERENCE TO FALL REDUCTION SELF-MANAGEMENT AND REDUCING FALL RISK FACTORS TO MINIMIZE FALL RISK BY END OF EPISODE. Goal Provider Goal - PT GOAL: PATIENT/CAREGIVER WILL VERBALIZE UNDERSTANDING OF SIGNS AND SYMPTOMS THAT PUT THE PATIENT AT RISK FOR HOSPITALIZATION /EMERGENCY ROOM VISITS, WHEN TO NOTIFY NURSE/PHYSICIAN OF COMPLICATIONS/DECLINE AND WHEN TO CALL 911. Goal Provider Goal - PATIENTS BLOOD SUGAR WILL REMAIN WELL CONTROLLED WITH SELF-MANAGEMENT THROUGHOUT EPISODE OF CARE. Goal Provider Goal - PT LTG: PATIENT WILL MAINTAIN OXYGEN SATURATION WITHIN PHYSICIAN ORDERED PARAMETERS THROUGHOUT EPISODE OF CARE. Goal Provider Goal - PT LTG: PATIENT WILL NOT EXPERIENCE CARDIAC OR RESPIRATORY COMPLICATIONS THROUGHOUT THE EPISODE OF CARE. Encounters Start Date/Time End Date/Time Encounter Type Admission Type Attending [facility] Care Department Encounter ID Discharge Date Discharge Status Discharge Condition Discharge Reason Percent Goals Met 2025-03-14 00:00:00 2025-05-12 00:00:00 Outpatient RECERTIFIC ATESME DALE [facility] [id number]
== END 2025-04-19 00:41 | disposition expired ==
LOC: ER 04-21 12:27
PROVIDERS: Emergency Provider Student in an Organized Health Care Education/Training Program
DX: I46.9 Cardiac arrest, cause unspecified (principal)
CPT/HCPCS: 92950; 99285